=== PATIENT | male | born 1960 | race Caucasian/White ===

== ENCOUNTER 2020-05-11 14:04 | Outpatient (REF) | payer OTHER, SELFPAY ==
[2020-05-11 15:11] LABS: Immature Retic Fraction 5.1 % (2.3-13.4); Reticulocyte Percent 1.4 % (0.5-1.8); Reticulocytes Absolute 0.055 X10*6/uL (0.026-0.095)
[2020-05-11 15:22] LABS: Iron 49 mcg/dL (45-160); Percent Iron Saturation 13 % (15-50); Total Iron Binding Capacity 371 mcg/dL (228-428); Unsaturated Iron Binding 322 ug/dL
[2020-05-11 15:43] LABS: Ferritin 23 ng/mL (20-250)
[2020-05-11 15:54] LABS: Folate 13.3 ng/mL (> or = 4.0); Vitamin B12 271 pg/mL (200-900)
[2020-05-12 17:33] LABS: Haptoglobin 107 mg/dL (43-212)
[2020-05-14 14:47] LABS: IgA 257 mg/dL (47-310); IgG 1314 mg/dL (600-1640); IgM 51 mg/dL (50-300)
== END 2020-05-11 14:05 | disposition home or self-care (01) ==
LOC: HO.LAB 14:04
PROVIDERS: PCP Internal Medicine; Visit Provider Internal Medicine Medical Oncology
DX: C81.90 Hodgkin lymphoma, unspecified, unspecified site (principal)
CPT/HCPCS: 36415; 82607; 82728; 82746; 82784; 83010; 83540; 85045; 86334

== ENCOUNTER → 2020-05-13 14:25 | Outpatient (BNVA) | payer OTHER, SELFPAY | PROVIDERS: PCP Internal Medicine; Referring Provider Internal Medicine; Visit Provider Internal Medicine | DX: I42.8 Other cardiomyopathies (principal); I35.0 Nonrheumatic aortic (valve) stenosis; I44.7 Left bundle-branch block, unspecified; I95.9 Hypotension, unspecified; Z79.899 Other long term (current) drug therapy; Z95.0 Presence of cardiac pacemaker | CPT/HCPCS: 93005 ==

== ENCOUNTER → 2020-05-22 11:15 | Outpatient (REF) | payer OTHER, SELFPAY ==
--- NOTE | 2020-05-22 11:21 | CA_ITS ---
Transthoracic Echocardiogram Patient (Last, First, Middle): Enrique Monahan, Gender: Male Date of : 1960 Age: 59 Procedure Date: 05/22/2020 Procedure Type: Transthoracic Echocardiogram Location: OP Height: 180.34 cm Weight: 83.92 kg BSA: 2.04 m2 Heart Rate: bpm BP: 100 / 60 mmHg Manager Sound: PATI Benjamin MD: Hamilton Wyman MD Resource Agent: Eric Javier MD Symptoms: I35.0 - Nonrheumatic aortic (valve) stenosis Study Quality: Good ECG Rhythm: Sinus with V pacing Conclusions: - 1. Severe paradoxical low-flow aortic stenosis 2. Low normal LV systolic function with grade 2 diastolic dysfunction 3. Mildly elevated right ventricular systolic pressure 4. Mildly dilated left atrium 5. No pericardial effusion Findings Left Ventricle Normal left ventricular cavity size. There is normal left ventricular wall thickness. The left ventricular systolic function is low normal. The visually estimated ejection fraction is between 50-55%. There is paradoxical septal motion consistent with a right ventricular pacemaker. Spectral Doppler is indicative of a pseudonormal filling pattern. E/E prime ratio is >15, consistent with elevated filling pressures. Evidence suggests grade II (moderate) diastolic dysfunction. Right Ventricle Normal right ventricular cavity size. There is normal right ventricular systolic function. There is a pacemaker wire seen in the right ventricle. Atria The left atrium is mildly dilated. The right atrium is normal in size. A pacemaker wire is identified in the right atrium. Aortic Valve There is severe calcification of the aortic valve. There is severe thickening of the aortic valve with reduced excursion. There is severe aortic valve stenosis. The mean gradient is 25 mmHg. The aortic valve area is 0.90 cm2. Dimensionless index at 0.21 consistent with severe aortic stenosis, consistent with paradoxical low-flow Mitral Valve There is mild anterior and posterior mitral leaflet thickening. There is trace mitral valve regurgitation. There is no mitral valve stenosis. Pulmonic Valve The pulmonic valve was not well visualized. Tricuspid Valve Likely normal tricuspid valve structure and function. There is mild tricuspid valve regurgitation. Mild pulmonary hypertension is present. Great Vessels All visible segments of the aorta are normal in size. The pulmonary artery was not well visualized. Venous The inferior vena cava is normal in size and collapses greater than 50% with inspiration. Pericardium/Pleural There is no evidence of pericardial effusion. Prior Study Comparison No prior study available for comparison. Measurements 2D Linear Measurements RVIDd: 3.56 RVIDd Index: 1.75 IVSd: 0.68 0.6-0.9/0.6-1.0 cm LVIDd: 5.65 3.9-5.3/4.2-5.9 cm LVIDd Index: 2.77 2.4-3.2/2.2-3.1 cm/m2 LVIDs: 3.67 2.0-3.6 cm LVPWd: 0.90 0.7-1.1 cm Ao Root: 3.50 2.1-3.5 cm LA Diam: 4.80 2.7-3.8/3.0-4.0 cm LAIDs Index: 2.35 1.5-2.3 cm/m2 LV Mass: 204.17 67-162/88-224 g LV Mass Index: 100.08 43-95/49-115 g/m2 LVOT Diam: 2.30 3.0+(-)1.3 cm 2D Systolic Function EF 4C: 49.30 >55% EF 2C: 58.40 >55% EF BiP: 53.80 >55% Mitral Valve E'Lateral: 10.10 E'Medial: 6.64 Aortic Valve AoV Pk Sixto: 3.40 AoV Mn Sixto: 2.30 AoV VTI: 0.74 AoV Pk Grad: 46.00 Aov Mn Grad: 25.00 DANUTA Cont.VTI: 0.90 LVOT LVOT Pk Sixto: 0.79 LVOT Mn Sixto: 0.50 LVOT VTI: 0.16 LVOT Pk Grad: 2.00 LVOT Mn Grad: 1.00 LVOT Diam: 2.30 LVOT Area: 4.15 Diastolic Function E'Medial: 6.64 E' Laterial: 10.10 Tricuspid Valve TR Pk Sixto: 2.65 TR Pk Grad: 28.00 RA Press: 15.00 RVSP: 43.00 Great Vessels Aorta Ao Root-2D: 3.50 2.0-3.7 cm Ao Asc: 3.30 2.1-3.4 cm Updated in Other Vendor System with Status of Final Eric Javier MD electronically signed on 05/23/2020 1:47:47 PM with status of Final
== END ==
LOC: HO.CARD 11:15
PROVIDERS: PCP Internal Medicine; Visit Provider Internal Medicine
DX: I35.0 Nonrheumatic aortic (valve) stenosis (principal)
CPT/HCPCS: 93306

== ENCOUNTER → 2020-06-03 12:29 | Outpatient (BNVA) | payer OTHER, SELFPAY | PROVIDERS: PCP Internal Medicine; Referring Provider Internal Medicine; Visit Provider Internal Medicine | DX: Z76.89 Persons encountering health services in other specified circumstances (principal) ==

== ENCOUNTER 2020-06-12 12:50 | Outpatient (REF) | payer OTHER, SELFPAY ==
[2020-06-12 14:18] LABS: MANUAL DIFF FLAG NO
[2020-06-12 14:22] LABS: Basophils Absolute Auto 0.1 X10*3/uL (0.0-0.2); Basophils Percent Auto 0.9 % (0-2); Eosinophils Absolute Auto 0.2 X10*3/uL (0.0-0.4); Eosinophils Percent Auto 3.1 % (0-4); Hematocrit 33.8 % (42-52); Hemoglobin 10.8 g/dl (14.0-18.0); Imm Gran Abs Auto 0.04 X10*3/uL (0.00-0.03); Imm Gran Pct Auto 0.5 % (0.0-0.4); Lymphocytes Absolute Auto 1.1 X10*3/uL (1.2-4.9); Lymphocytes Percent Auto 13.9 % (20-40); Mean Corpuscular Volume 90.6 fL (80-98); Mean Platelet Volume 10.8 fL (9.4-12.4); Monocytes Absolute Auto 1.3 X10*3/uL (0.1-1.2); Monocytes Percent Auto 16.5 % (2-11); Neutrophils Percent Auto 65.1 % (45-73); Platelet Count 384 X10*3/uL (160-400); Red Blood Count 3.73 X10*6/uL (4.60-5.80); Red Cell Distribution Width 15.9 % (11.0-16.0); White Blood Count 7.7 X10*3/uL (4.8-10.8)
[2020-06-12 14:23] LABS: Hematocrit 33.7 % (42-52); Hemoglobin 10.8 g/dl (14.0-18.0); Mean Corpuscular Hemoglobin 28.9 pg (27.0-33.0); Mean Corpuscular Volume 90.1 fL (80-98); Mean Platelet Volume 11.1 fL (9.4-12.4); Platelet Count 390 X10*3/uL (160-400); Red Blood Count 3.74 X10*6/uL (4.60-5.80); Red Cell Distribution Width 15.9 % (11.0-16.0); White Blood Count 7.6 X10*3/uL (4.8-10.8)
[2020-06-12 14:28] LABS: INTERNATIONAL NORM RATIO 1.2 (0.9-1.1); Prothrombin Time 14.3 SEC (10.8-13.0)
[2020-06-12 14:58] LABS: Alanine Aminotransferase 12 U/L (0-40); Albumin Level 3.8 g/dL (3.5-5.0); Alkaline Phosphatase 50 U/L (39-117); Anion Gap 11 (12-20); Aspartate Amino Transferase 17 U/L (5-37); Bilirubin Total 0.5 mg/dL (0.0-1.0); Blood Urea Nitrogen 24 mg/dL (9-16); Calcium 8.5 mg/dL (8.4-10.2); Carbon Dioxide 28 mmol/L (22-29); Chloride 103 mmol/L (96-108); Estimated Glomerular Filt Rate > 60; Glucose Fasting 89 mg/dL (60-99); Lactate Dehydrogenase 173 U/L (118-273); Sodium 137 mmol/L (135-145); Total Protein 6.3 g/dL (6.5-8.0)
[2020-06-12 15:01] LABS: Anion Gap 13 (12-20); Blood Urea Nitrogen 24 mg/dL (9-16); Calcium 8.6 mg/dL (8.4-10.2); Carbon Dioxide 28 mmol/L (22-29); Chloride 103 mmol/L (96-108); Estimated Glomerular Filt Rate > 60; Glucose Random 88 mg/dL (60-115); Potassium 5.4 mmol/l (3.3-5.1); Sodium 139 mmol/L (135-145)
[2020-06-12 15:23] LABS: Thyroid Stimulating Hormone 0.38 uIU/mL (0.32-4.0)
== END 2020-06-12 12:51 | disposition home or self-care (01) ==
LOC: HO.LAB 12:50
PROVIDERS: Internal Medicine Medical Oncology; PCP Internal Medicine; Visit Provider Internal Medicine
DX: C81.90 Hodgkin lymphoma, unspecified, unspecified site (principal); I35.0 Nonrheumatic aortic (valve) stenosis
CPT/HCPCS: 36415; 80048; 80053; 83615; 84443; 85025; 85027; 85610

== ENCOUNTER 2020-06-13 09:01 | Outpatient (REF) | payer OTHER, SELFPAY ==
[2020-06-13 09:25] LABS: COVID-19 Test Negative (Negative)
== END 2020-06-13 09:02 | disposition home or self-care (01) ==
LOC: HO.EMPCOV 09:01
PROVIDERS: Visit Provider Internal Medicine
DX: Z20.828 Contact with and (suspected) exposure to other viral communicable diseases (principal)
CPT/HCPCS: 87635; C9803

== ENCOUNTER 2020-06-15 12:15 | Outpatient (REF) | payer OTHER, SELFPAY ==
[2020-06-15 13:20] LABS: Anion Gap 13 (12-20); Blood Urea Nitrogen 23 mg/dL (9-16); Calcium 8.7 mg/dL (8.4-10.2); Carbon Dioxide 28 mmol/L (22-29); Chloride 104 mmol/L (96-108); Estimated Glomerular Filt Rate > 60; Glucose Random 85 mg/dL (60-115); Potassium 4.5 mmol/l (3.3-5.1); Sodium 140 mmol/L (135-145)
== END 2020-06-15 12:16 | disposition home or self-care (01) ==
LOC: HO.LAB 12:15
PROVIDERS: PCP Internal Medicine; Visit Provider Nurse Practitioner Family
DX: E87.5 Hyperkalemia (principal)
CPT/HCPCS: 80048

== ENCOUNTER 2020-06-19 10:56 | Observation (INO) | payer OTHER, SELFPAY ==
[2020-06-19] VITALS (8 sets, daily range): BP systolic 88–112; BP diastolic 44–62; PULSE 78–85; RESP 13–19; TEMP 36.6–37.1; O2SAT 98–100; BMI 25.7
--- NOTE | 2020-06-19 | ECG_ITS ---
Test Reason : CHEST PAIN Blood Pressure : / mmHG Vent. Rate : 082 BPM Atrial Rate : 082 BPM P-R Int : 146 ms QRS Dur : 144 ms QT Int : 452 ms P-R-T Axes : 100 238 076 degrees QTc Int : 528 ms Atrial-sensed ventricular-paced rhythm Abnormal ECG When compared with ECG of 01-SEP-2006 11:08, Electronic ventricular pacemaker has replaced Sinus rhythm Referred By: Generic ED Physician Electronically Signed By:IVANNA ORDONEZ
--- NOTE | 2020-06-19 | XR_ITS ---
EXAMINATION: XR CHEST CLINICAL INFORMATION: Post right thoracentesis COMPARISON: Previous chest x-ray from earlier the same day and chest CTA from earlier the same day TECHNIQUE: Frontal view of the chest was obtained. FINDINGS: The cardiac and mediastinal contours are stable. Left subclavian pacemaker defibrillator device appears unchanged. There is interval decrease in the right pleural effusion. There is no pneumothorax. There is no left pleural effusion. The lungs are clear. Visualized bony structures are unremarkable. XR/XR chest 1V IMPRESSION: No pneumothorax post right thoracentesis.
--- NOTE | 2020-06-19 11:21 | PC.NURSE ---
pt bp noted to be low. 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 had meds adjusted about 1 week ago. pt does report dizziness.
[2020-06-19 11:22] LABS: MANUAL DIFF FLAG NO
[2020-06-19 11:23] LABS: Basophils Absolute Auto 0.1 X10*3/uL (0.0-0.2); Basophils Percent Auto 0.9 % (0-2); Eosinophils Absolute Auto 0.2 X10*3/uL (0.0-0.4); Eosinophils Percent Auto 2.2 % (0-4); Hematocrit 31.6 % (42-52); Hemoglobin 10.3 g/dl (14.0-18.0); Imm Gran Abs Auto 0.03 X10*3/uL (0.00-0.03); Imm Gran Pct Auto 0.3 % (0.0-0.4); Lymphocytes Percent Auto 10.5 % (20-40); Mean Corpuscular HGB Conc 32.6 g/dl (31.0-36.0); Mean Corpuscular Hemoglobin 28.8 pg (27.0-33.0); Mean Corpuscular Volume 88.3 fL (80-98); Mean Platelet Volume 10.7 fL (9.4-12.4); Monocytes Absolute Auto 1.3 X10*3/uL (0.1-1.2); Monocytes Percent Auto 13.4 % (2-11); Neutrophils Percent Auto 72.7 % (45-73); Platelet Count 280 X10*3/uL (160-400); Red Blood Count 3.58 X10*6/uL (4.60-5.80); Red Cell Distribution Width 15.7 % (11.0-16.0); White Blood Count 9.7 X10*3/uL (4.8-10.8)
--- NOTE | 2020-06-19 11:33 | XR_ITS ---
EXAMINATION: XR CHEST CLINICAL INFORMATION: Right-sided chest pain COMPARISON: Previous chest x-ray April 2020 TECHNIQUE: 2 views of the chest were obtained. FINDINGS: The cardiac and mediastinal contours are stable. There is a left subclavian pacemaker defibrillator device that appears unchanged. There are left mediastinal or upper lobe calcifications that are unchanged. The lungs are otherwise clear. There is a small to moderate right pleural effusion. This appears similar to previous exam. Bony structures are unremarkable. There is a calcification in the visualized abdomen overlying the right L1 vertebral body that is stable. There are surgical clips under the left hemidiaphragm. XR/XR chest 2V IMPRESSION: [id number] right pleural effusion similar to previous exam. Stable left mediastinal/upper lobe and abdominal calcifications from previous exams.
--- NOTE | 2020-06-19 11:33 | ED.CHESTPAIN ---
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 Patient denies headaches, changes in vision, jaw pain, nausea/vomiting, radiation of the chest pain, shoulder pain, paresthesias, back pain, abdominal pain, calf pain or swelling of extremities or any other symptoms complaints or concerns at this time. Related Data Home Medications Medication Instructions Recorded Confirmed aspirin 81 mg tablet,delayed 81 mg PO DAILY 06/03/20 06/19/20 release eplerenone 25 mg tablet 25 mg PO DAILY 06/03/20 06/19/20 furosemide 20 mg tablet 20 mg PO BIDWM tab 06/03/20 06/19/20 levothyroxine 175 mcg tablet 175 mcg PO DAILY@0630 06/03/20 06/19/20 lisinopril 2.5 mg tablet 2.5 mg PO DAILY 06/03/20 06/19/20 Previous Rx's Medication Instructions Recorded carvedilol 12.5 mg tablet 12.5 mg PO BID #1 tab 06/03/20 Allergies Allergy/AdvReac Type Severity Reaction Status Date / Time No Known Allergies Allergy Verified 06/03/20 12:36 [No Known Allergies*] Review of Systems Review of Systems: Constitutional : No Fever, No Chills, No Night Sweats, No Fatigue, No Malaise ENT/Mouth : No Hearing loss, No Ear Pain, No Nasal Congestion, No Sinus Pain, No Hoarseness, No sore throat, No Rhinorrhea, No Swallowing Difficulty Eyes: No Eye Pain, No Swelling, No Discharge, No Vision Changes Cardiovascular : + SOB, no Dyspnea on Exertion, No Orthopnea, No Edema, No extremity swelling, No Palpitations Respiratory : No Cough, No Sputum, No Wheezing, No Dyspnea Gastrointestinal : No Nausea, No Vomiting, No Diarrhea, No abdominal Pain, No Hematochezia, No Melena Genitourinary : No irregular bleeding, No Dysuria, No Urinary Frequency, No Hematuria, No Urinary Incontinence, No Urgency, No Flank Pain, No Urinary Flow Changes, No Hesitancy Musculoskeletal : No joint pain, No Myalgias, No Joint Swelling Skin : No Skin Lesions, No rash Neuro : No Weakness, No Numbness, No Paresthesias, No Loss of Consciousness, + Dizziness, No Headache Yes all other systems are reviewed and are negative [facility] Past Medical History Attestation statement: The following information was validated with the patient. Medical History LBBB (left bundle branch block) NICM (nonischemic cardiomyopathy) Non-rheumatic aortic stenosis Pacemaker Surgical History History of cardiac pacemaker Family History Family History Father No problems noted. Mother No problems noted. Social History Social History Smoking Status: Never smoker Smoked in Last 30 Days: No Use of substances other than those prescribed or required for medical reasons: No Advance Directives: No Advance Directives Information Provided: No Physical Exam Vital Signs: Vital Signs: Last Vital Signs Temp 98.2 F 06/19/20 12:30 Pulse 82 06/19/20 14:22 Resp 18 06/19/20 14:22 BP 108/62 06/19/20 14:22 Pulse Ox 98 06/19/20 14:22 Body Mass Index 25.7 vital signs have been reviewed as normal and appeared to be correct. Blood pressure normal. Heart rate normal. Respiration rate normal. Temperature normal. Oxygen saturation normal. Appearance: Alert. Oriented X3. No acute distress. Head: Normal external exam. Normocephalic. Eyes: PERRLA. EOMI. Conjunctiva and sclera normal. Eyelids normal. ENT: Pharynx normal. Uvula midline. Moist mucous membranes. Neck: Normal inspection. Neck supple. FROM. No adenopathy. No meningeal signs. CVS: Normal heart rate and rhythm. Heart sound normal. Patient noted to have a murmur sounds like a heave c/w aortic stenosis. Pulses normal throughout. Respiratory: No respiratory distress. Painless inspiration. Breath sounds normal. No wheezes/rales/rhonchi noted. Chest nontender. No accessory muscle usage noted or decreased air movement noted. Abdomen: Soft and nontender. Bowel sounds normal in all 4 quadrants. No distention noted. No organomegaly noted. No visible injury noted. Back: Full range of motion noted. Skin: Skin warm and dry. Normal skin color. Normal skin turgor. No rashes/lesions/lacerations noted. Extremities: +1 pitting lower extremity edema. No calf tenderness. Extremities exhibit normal range of motion. Extremities nontender. Neuro: Oriented X 3. No motor deficit. No sensory deficit. Reflexes normal. Course Course Course Narrative: 11:20AM - 59yoM c PMHx of Hodgkin's lymphoma, nonischemic cardiomyopathy, left bundle-branch block, nonrheumatic aortic stenosis with pace-maker in place currently on aspirin who had a cardiac cath yesterday at [facility] presenting to the ED with complaints of sudden onset of left sided chest pain with associated dizziness and SOB that started appointment specialist at 9:30am. - I consulted with Dr. Wyman who reported that the patient's blood pressure is always on the lower side. Dr. Wyman also sent me a picture through [employer] of the patient's cardiac catheterization done at [facility] yesterday 06/18/2020 which revealed Lesion in LMCA: Distal subsection 30% stenosis 10 mm length. Preprocedure GRETCHEN 2 flow was noted. RCA: Normal. We noticed spasm after engagement. We took non selective shots which did not show any obvious ostial stenosis. LAD: Normal LCx: Normal Ramus: Normal - Concern for ACS vs PE vs s/p pain from procedure. - Plan: Labs, CXR, EKG. Provide IV fluids and re-evaluate Reevaluation(s) Reevaluation #1: - Patient with anemia, BUN 20. Troponin 13.7. Otherwise all other labs are within normal limits. COVID/RSV/flu negative. EKG is atrial ventricular paced no acute ischemic changes noted. Chest x-ray revealed chronic changes no acute processes noted. Will repeat a troponin at 14:[address] scan of chest to evaluate for possible PE or any other acute processes then re-evaluate. Time: 13:08 Reevaluation #2: - Repeat troponin 13.[address] scan of chest to evaluate for possible PE negative for PE although revealed large right pleural effusion. Patient just got up to go to the bathroom and was very short of breath and felt dizzy. Therefore patient will be admitted and will need Interventional Radiology for a thoracentesis. Patient stands agrees with this plan. Time: 15:58 MDM - Chest Pain Medical Records Data Attestation: I reviewed the patient's medical records. Lab Data Attestation: I reviewed the patient's lab results. Result diagrams: 06/19/20 11:11 06/19/20 11:11 Labs: Lab Results 06/19/20 06/19/20 06/19/20 Range/Units 11:11 11:11 11:11 WBC 9.7 (4.8-10.8) X10*3/uL RBC 3.58 L (4.60-5.80) X10*6/uL Hgb 10.3 L (14.0-18.0) g/dl Hct 31.6 L (42-52) % MCV 88.3 (80-98) fL MCH 28.8 (27.0-33.0) pg MCHC 32.6 (31.0-36.0) g/dl RDW 15.7 (11.0-16.0) % Plt Count 280 D (160-400) X10*3/uL MPV 10.7 (9.4-12.4) fL Immature Gran % (Auto) 0.3 (0.0-0.4) % Neut % (Auto) 72.7 (45-73) % Lymph % (Auto) 10.5 L (20-40) % [place] % (Auto) 13.4 H (2-11) % Eos % (Auto) 2.2 (0-4) % Baso % (Auto) 0.9 (0-2) % Lymph # (Auto) 1.0 L (1.2-4.9) X10*3/uL [place] # (Auto) 1.3 H (0.1-1.2) X10*3/uL Eos # (Auto) 0.2 (0.0-0.4) X10*3/uL Baso # (Auto) 0.1 (0.0-0.2) X10*3/uL Abs Immat Gran (auto) 0.03 (0.00-0.03) X10*3/uL Absolute Neuts (auto) 7.0 (2.0-8.3) X10*3/uL Absolute Nucleated RBC 0.000 (0.0-0.012) X10*3/uL Nucleated RBC % (auto) 0.0 (0.0-0.2) /100WBC PT 14.0 H (10.8-13.0) SEC INR 1.2 H (0.9-1.1) APTT 51.0 H (24.1-38.0) SEC Hold Blue Top SEE NOTE Sodium 138 (135-145) mmol/L Potassium 4.5 (3.3-5.1) mmol/l Chloride 102 (96-108) mmol/L Carbon Dioxide 27 (22-29) mmol/L Anion Gap 14 (12-20) BUN 20 H (9-16) mg/dL Creatinine 0.90 (0.5-1.4) mg/dL Estim Creat Clear Calc 96.4 Estimated GFR > 60 Random Glucose 85 (60-115) mg/dL Calcium 8.7 (8.4-10.2) mg/dL Troponin I High Sens (<3.5-35.0) ng/L B-Natriuretic Peptide (<100) pg/mL Coronavirus (PCR) (Negative) Influenza Type A (PCR) (Negative) Influenza Type B (PCR) (Negative) RSV RNA Qual (PCR) (Negative) 06/19/20 06/19/20 06/19/20 Range/Units 11:11 12:07 14:19 WBC (4.8-10.8) X10*3/uL RBC (4.60-5.80) X10*6/uL Hgb (14.0-18.0) g/dl Hct (42-52) % MCV (80-98) fL MCH (27.0-33.0) pg MCHC (31.0-36.0) g/dl RDW (11.0-16.0) % Plt Count (160-400) X10*3/uL MPV (9.4-12.4) fL Immature Gran % (Auto) (0.0-0.4) % Neut % (Auto) (45-73) % Lymph % (Auto) (20-40) % [place] % (Auto) (2-11) % Eos % (Auto) (0-4) % Baso % (Auto) (0-2) % Lymph # (Auto) (1.2-4.9) X10*3/uL [place] # (Auto) (0.1-1.2) X10*3/uL Eos # (Auto) (0.0-0.4) X10*3/uL Baso # (Auto) (0.0-0.2) X10*3/uL Abs Immat Gran (auto) (0.00-0.03) X10*3/uL Absolute Neuts (auto) (2.0-8.3) X10*3/uL Absolute Nucleated RBC (0.0-0.012) X10*3/uL Nucleated RBC % (auto) (0.0-0.2) /100WBC PT (10.8-13.0) SEC INR (0.9-1.1) APTT (24.1-38.0) SEC Hold Blue Top Sodium (135-145) mmol/L Potassium (3.3-5.1) mmol/l Chloride (96-108) mmol/L Carbon Dioxide (22-29) mmol/L Anion Gap (12-20) BUN (9-16) mg/dL Creatinine (0.5-1.4) mg/dL Estim Creat Clear Calc Estimated GFR Random Glucose (60-115) mg/dL Calcium (8.4-10.2) mg/dL Troponin I High Sens 13.7 13.0 (<3.5-35.0) ng/L B-Natriuretic Peptide 108 H (<100) pg/mL Coronavirus (PCR) NEGATIVE (Negative) Influenza Type A (PCR) NEGATIVE (Negative) Influenza Type B (PCR) NEGATIVE (Negative) RSV RNA Qual (PCR) NEGATIVE (Negative) Imaging Data Chest x-ray: Attestation: I personally reviewed and interpreted this imaging study as follows: Radiologist's impression: IMPRESSION: [id number] right pleural effusion similar to previous exam. Stable left mediastinal/upper lobe and abdominal calcifications from previous exams. ECG Data ECG #1: Attestation: I personally reviewed and interpreted this ECG as follows: ECG interpretation date: 06/19/20 ECG interpretation time: 11:04 Interpretation: Atrial sensed ventricular paced rhythm no acute ischemic changes noted. With a rate of 82. Last EKG in system is 09/01/2016 and patient did not have a pacemaker than. No other EKGs to compare to at this time. Critical Care Time Critical Care Time Critical Care Time: Yes Total Critical Care Time: 60 Attestation: I personally attest to this time spent taking care of the patient Discharge Plan Discharge Clinical Impression: Chest pain, Breath shortness, Pleural effusion Patient Disposition: Admitted As Inpatient Prescriptions: No Action aspirin 81 mg tablet,delayed release (DR/EC) 81 mg PO DAILY RF: 0 eplerenone 25 mg tablet 25 mg PO DAILY RF: 0 furosemide 20 mg tablet 20 mg PO BIDWM RF: 0 levothyroxine 175 mcg tablet 175 mcg PO DAILY@0630 RF: 0 lisinopril 2.5 mg tablet 2.5 mg PO DAILY RF: 0 carvedilol 12.5 mg tablet 12.5 mg PO BID Qty: 1 RF: 0
[2020-06-19 11:44] LABS: INTERNATIONAL NORM RATIO 1.2 (0.9-1.1)
[2020-06-19 11:52] LABS: Troponin-I High Sensitivity 13.7 ng/L (<3.5-35.0)
[2020-06-19 12:09] LABS: Anion Gap 14 (12-20); Blood Urea Nitrogen 20 mg/dL (9-16); Calcium 8.7 mg/dL (8.4-10.2); Carbon Dioxide 27 mmol/L (22-29); Chloride 102 mmol/L (96-108); Creatinine Clr Calc Pharmacy 96.4; Estimated Glomerular Filt Rate > 60; Glucose Random 85 mg/dL (60-115); Potassium 4.5 mmol/l (3.3-5.1); Sodium 138 mmol/L (135-145)
--- NOTE | 2020-06-19 12:45 | CT_ITS ---
EXAMINATION: CT ANGIOGRAM OF THE CHEST WITH AND WITHOUT CONTRAST (CT PULMONARY ANGIOGRAM FOR PE) CLINICAL INFORMATION: Reason for Exam pt c sudden onset of cp/sob/dizziness ? pe COMPARISON: Previous chest x-ray from earlier the same day TECHNIQUE: Prior to contrast administration, noncontrast localization images were obtained. Subsequently, multidetector volumetric imaging was performed from the thoracic inlet to below the diaphragms following the administration of 65 mL Omnipaque 350 intravenous contrast. No contrast reaction reported Sagittal, coronal, and MIP oblique sagittal reformatted images were obtained on the CT workstation, uploaded to PACS, and reviewed. This CT examination was performed using dose optimization techniques as appropriate, variously including the following: *Automated exposure control *Adjustment of mA and/or kV according to patient size (this includes techniques or standardized protocols for targeted exams where dose is matched to indication/reason for exam; i.e. extremities or head) *Use of iterative reconstruction technique Total exam dose-length product 311 mGy-cm FINDINGS: QUALITY OF STUDY/CONTRAST BOLUS: Satisfactory. PULMONARY ARTERIES: No central or segmental pulmonary emboli. THORACIC AORTA: No aneurysm or dissection. LUNG: No focal consolidation, nodules or masses. There is compressive atelectasis of the right lower lobe from the right pleural effusion. PLEURA: There is a moderate to large right pleural effusion. There is no left pleural effusion. MEDIASTINUM: The heart size is normal. There is a left subclavian pacemaker defibrillator device. There is mild pericardial calcification. There is no pericardial effusion. No evidence of septal bowing or right heart strain. CHEST WALL/AXILLA: No axillary or internal mammary lymphadenopathy. There are collateral vessels seen in the left chest wall. OSSEOUS STRUCTURES: There are degenerative changes of the spine. UPPER ABDOMEN: The spleen has been removed. No reflux of contrast into the hepatic veins to suggest elevated right heart pressures. CT/CT angio chest PE protocol IMPRESSION: No evidence of pulmonary embolism. Moderate to large right pleural effusion. VTE: negative
[2020-06-19 12:57] LABS: Influenza A PCR NEGATIVE (Negative); Influenza B PCR NEGATIVE (Negative); Resp Syncy Virus RNA Qual PCR NEGATIVE (Negative); SARS COV2 PCR INHOUSE NEGATIVE (Negative)
[2020-06-19] MEDS: iohexoL 350 MG/ML 100 ML INFUS..BTL 65 ML IV (13:36)
[2020-06-19 13:37] LABS: B Type Natriuretic Peptide 108 pg/mL (<100)
--- NOTE | 2020-06-19 14:18 | PC.NURSE ---
Helped pt ambulate to bathroom. Pt felt extremely out of breath. RN aware.
--- NOTE | 2020-06-19 16:15 | US_ITS ---
EXAMINATION: ULTRASOUND-GUIDED THORACENTESIS CLINICAL INFORMATION: Right pleural effusion COMPARISON: Previous chest x-rays chest CTA from earlier the same day TECHNIQUE: Procedure and risks and benefits including bleeding, infection and pneumothorax were discussed with the patient and informed consent was obtained. The right posterior lateral chest was prepped and draped in the usual sterile fashion. The skin and soft tissues were anesthetized with 1% lidocaine plain. Using ultrasound guidance and a 4 [place] rapid centesis catheter, access to the right pleural effusion was obtained. 1.1 L of serosanguineous fluid was removed. Diagnostic specimen was sent. FINDINGS: There is a large right pleural effusion. US/US drain thoracentesis IMPRESSION: Ultrasound-guided right thoracentesis.
--- NOTE | 2020-06-19 17:08 | HO.RADPN ---
RADIOLOGY Narrative Narrative: Right thoracentesis performed using 4 fr catheter. 1.1L serosanguinous fluid removed. post CXR pending
[2020-06-19] MEDS: Lidocaine HCl 1 % MPF 5 ML VIAL SUBCUT (17:14)
--- NOTE | 2020-06-19 18:02 | PM.EVENT ---
Event Note Date of Service: 06/19/20 Event Note: the patient was seen and evaluated with IRIS Abel. I agree with her note, assessment and plan with the following. A 59 yeasrs old male with pmh of HFrEF, Hx H.Lymphoma, NICM and who presents to the hospital complaining of chest pain and dyspnea on exertion. The patient had an angiogram 2 days ago showing no significant coronary disease which seem as a part of preparation for TAVR. He reports that he has some chest pain on and of but today he had an acute left-sided stabbing like chest pain associated with shortness of breath and sweating which was read concerning for him so he came to the emergency for evaluation. EKG showing paced rhythm. Troponin negative. A CTA was done showing no PE but right-sided pleural effusion which was drained by IR with good response as the patient failed his breathing much improved. Admitted for further evaluation and treatment. Chest pain Could be secondary to severe aortic stenosis next [place] continue telemetry Get cardiology evaluation the morning Right-sided pleural effusion To check studies for fluid Likely transudate from heart failure Rest of evaluations by IRIS note.
--- NOTE | 2020-06-19 18:27 | PM.IMHP ---
History of Present Illness Date of Service: 06/19/20 Chief Complaint: chest pain A 59-year-old male who presents to the emergency department with chest pain. Patient underwent cardiac catheterization at [facility] on 06/16/2020. This revealed no obstructive coronary artery disease. Today while at work he developed left-sided stabbing chest pain with associated shortness of breath diaphoresis. He was brought to the emergency department for evaluation. EKG revealed a paced rhythm. Troponin was flat x2. Chest x-ray showed small pleural effusion. Underwent CTA which showed no evidence PE but showed large right pleural effusion. He underwent therapeutic and diagnostic thoracentesis with removal of 1.1 L of serosanguineous fluid was removed. Patient reports improvement in his symptoms following the procedure. Initially patient was hypotensive on arrival but blood pressure has subsequently improved to 1 0 . He does report that his blood pressure typically runs on the low side. He will be admitted overnight for observation. Review of Systems Review of Systems: Yes all other systems are reviewed and are negative Constitutional: Constitutional: Denies chills and Denies fever(s) Cardiovascular: Cardiovascular: Reports chest pain Respiratory: Respiratory: Denies cough Gastrointestinal: Gastrointestinal: Denies abdominal pain [facility] Medical History (Updated 06/19/20 @ 18:34 by IRIS Rutherford) Complete heart block HFrEF (heart failure with reduced ejection fraction) Hodgkins lymphoma Hypothyroid LBBB (left bundle branch block) NICM (nonischemic cardiomyopathy) Non-rheumatic aortic stenosis Pacemaker Functional capacity: independent ambulation Family History Father No problems noted. Mother No problems noted. Surgical History (Updated 06/19/20 @ 18:34 by IRIS Rutherford) H/O splenectomy History of appendectomy History of cardiac pacemaker Social History (Updated 06/19/20 @ 18:35 by IRIS Rutherford) Alcohol intake: current Alcohol intake frequency: a few times a month Smoking Status: Never smoker Smoked in Last 30 Days: No Use of substances other than those prescribed or required for medical reasons: No Advance Directives: No Advance Directives Information Provided: No Meds Allergies Allergy/AdvReac Type Severity Reaction Status Date / Time No Known Allergies Allergy Verified 06/03/20 12:36 [No Known Allergies*] Home Medications Medication Instructions Recorded Confirmed Type aspirin 81 mg tablet,delayed 81 mg PO DAILY 06/03/20 06/19/20 History release eplerenone 25 mg tablet 25 mg PO DAILY 06/03/20 06/19/20 History furosemide 20 mg tablet 20 mg PO BIDWM tab 06/03/20 06/19/20 History levothyroxine 175 mcg tablet 175 mcg PO DAILY@0630 06/03/20 06/19/20 History lisinopril 2.5 mg tablet 2.5 mg PO DAILY 06/03/20 06/19/20 History Physical Exam Vital Signs and Narrative: Vital Signs: Last Vital Signs Temp 98.3 F 06/19/20 18:00 Pulse 78 06/19/20 18:00 Resp 15 06/19/20 18:00 BP 106/52 L 06/19/20 18:00 Pulse Ox 100 06/19/20 18:00 Body Mass Index 25.7 Const: Nutritional Appearance: well nourished Orientation/consciousness: patient oriented x3 HENMT: Head: Yes normocephalic and Yes atraumatic Eyes: Sclerae: sclerae normal Chest: Chest palpation & inspection: normal inspection of the chest Resp: Effort & Inspection: normal respiratory effort and no respiratory distress Auscultation: diminished lung sounds (right base) Cardio: Rate: regular rate Rhythm: regular rhythm Heart sounds: Murmur heart sound present systolic GI: Palpation (GI): Soft to palpation and nontender Skin: General skin exam: no rashes or lesions noted Neuro: General: patient oriented x3 Cranial nerves: Yes CN's II-XII intact bilaterally and Yes Bilaterally intact EOM present Extrem: General: Yes normal to inspection Results Labs CBC and Chem 7: 06/19/20 11:11 06/19/20 11:11 Labs: Laboratory Results - last 24 hr 06/19/20 06/19/20 06/19/20 11:11 11:11 11:11 MCV 88.3 MCH 28.8 MCHC 32.6 RDW 15.7 Plt Count 280 D MPV 10.7 Immature Gran % (Auto) 0.3 Neut % (Auto) 72.7 Lymph % (Auto) 10.5 L [place] % (Auto) 13.4 H Eos % (Auto) 2.2 Baso % (Auto) 0.9 Lymph # (Auto) 1.0 L [place] # (Auto) 1.3 H Eos # (Auto) 0.2 Baso # (Auto) 0.1 Abs Immat Gran (auto) 0.03 Absolute Neuts (auto) 7.0 Absolute Nucleated RBC 0.000 Nucleated RBC % (auto) 0.0 PT 14.0 H INR 1.2 H APTT 51.0 H Hold Blue Top SEE NOTE Anion Gap 14 Estim Creat Clear Calc 96.4 Estimated GFR > 60 Random Glucose 85 Calcium 8.7 Troponin I High Sens B-Natriuretic Peptide Coronavirus (PCR) Influenza Type A (PCR) Influenza Type B (PCR) RSV RNA Qual (PCR) 06/19/20 06/19/20 06/19/20 11:11 12:07 14:19 MCV MCH MCHC RDW Plt Count MPV Immature Gran % (Auto) Neut % (Auto) Lymph % (Auto) [place] % (Auto) Eos % (Auto) Baso % (Auto) Lymph # (Auto) [place] # (Auto) Eos # (Auto) Baso # (Auto) Abs Immat Gran (auto) Absolute Neuts (auto) Absolute Nucleated RBC Nucleated RBC % (auto) PT INR APTT Hold Blue Top Anion Gap Estim Creat Clear Calc Estimated GFR Random Glucose Calcium Troponin I High Sens 13.7 13.0 B-Natriuretic Peptide 108 H Coronavirus (PCR) NEGATIVE Influenza Type A (PCR) NEGATIVE Influenza Type B (PCR) NEGATIVE RSV RNA Qual (PCR) NEGATIVE Imaging Radiologist's Impressions: Impressions Chest X-Ray 06/19/20 00:00 IMPRESSION: No pneumothorax post right thoracentesis. Chest X-Ray 06/19/20 11:33 IMPRESSION: [id number] right pleural effusion similar to previous exam. Stable left mediastinal/upper lobe and abdominal calcifications from previous exams. Chest CTA 06/19/20 12:45 IMPRESSION: No evidence of pulmonary embolism. Moderate to large right pleural effusion. VTE: negative Thoracentesis/Paracentesis US 06/19/20 16:15 IMPRESSION: Ultrasound-guided right thoracentesis. Assessment and Plan (1) Pleural effusion: Status: Acute (2) Chest pain: Qualifiers: Chest pain type: unspecified Qualified Code(s): R07.9 - Chest pain, unspecified Status: Acute This is a 59 year old male with history chemotherapy-induced cardiomyopathy, moderate to severe aortic stenosis, complete heart block status post pacemaker placement who presents to the emergency department with chest pain found to have pleural effusion Chest pain Cardiac catheterization at [facility] 06/16/2020 shows no obstructive coronary artery disease trops flat x 2 monitor overnight on tele cardiology consult pleural effusion s/p thoracentesis wtih removal of 1.1L follow up fluid studies Nonischemic cardiomyopathy Continue carvedilol, furosemide, lisinopril, aspirin Eplerenone is non-formulary, will change to formulary equivalent Hypothyroidism Continue Synthroid DVT prophylaxis-Lovenox Code status-full code This case was discussed with Dr. Barr
[2020-06-19 19:23] LABS: Lactate Dehydrogenase 253 U/L (118-273)
[2020-06-19] MEDS: Enoxaparin Sodium 40 MG/0.4 ML SYRINGE SUBCUT (19:25)
[2020-06-19] MEDS: carvediloL 12.5 MG TABLET PO (21:42)
[2020-06-19] MEDS: 0.9 % Sodium Chloride Flush 3 ML SYRINGE IVFLUSH (21:43)
[2020-06-19] MEDS: Acetaminophen 325 MG TABLET 650 MG PO (22:10)
[2020-06-20] VITALS: BP 95/50; PULSE 84; RESP 18; TEMP 37.1; O2SAT 97
[2020-06-20 04:00] VITALS: BP 93/44; PULSE 84; RESP 18; TEMP 36.6; O2SAT 98
[2020-06-20] MEDS: Levothyroxine Sodium 175 MCG TABLET PO (06:02)
[2020-06-20 06:35] LABS: MANUAL DIFF FLAG NO
[2020-06-20 06:53] LABS: Basophils Absolute Auto 0.1 X10*3/uL (0.0-0.2); Eosinophils Absolute Auto 0.3 X10*3/uL (0.0-0.4); Eosinophils Percent Auto 2.7 % (0-4); Hematocrit 29.8 % (42-52); Hemoglobin 9.6 g/dl (14.0-18.0); Imm Gran Abs Auto 0.03 X10*3/uL (0.00-0.03); Imm Gran Pct Auto 0.3 % (0.0-0.4); Lymphocytes Absolute Auto 0.8 X10*3/uL (1.2-4.9); Lymphocytes Percent Auto 8.8 % (20-40); Mean Corpuscular HGB Conc 32.2 g/dl (31.0-36.0); Mean Corpuscular Hemoglobin 28.5 pg (27.0-33.0); Mean Corpuscular Volume 88.4 fL (80-98); Mean Platelet Volume 11.5 fL (9.4-12.4); Monocytes Absolute Auto 1.4 X10*3/uL (0.1-1.2); Monocytes Percent Auto 14.7 % (2-11); Neutrophils Absolute Auto 6.8 X10*3/uL (2.0-8.3); Neutrophils Percent Auto 72.5 % (45-73); Platelet Count 224 X10*3/uL (160-400); Red Blood Count 3.37 X10*6/uL (4.60-5.80); Red Cell Distribution Width 15.9 % (11.0-16.0); White Blood Count 9.3 X10*3/uL (4.8-10.8)
[2020-06-20 07:18] LABS: Anion Gap 13 (12-20); Blood Urea Nitrogen 16 mg/dL (9-16); Calcium 8.1 mg/dL (8.4-10.2); Carbon Dioxide 25 mmol/L (22-29); Chloride 105 mmol/L (96-108); Creatinine Clr Calc Pharmacy 120.5; Estimated Glomerular Filt Rate > 60; Glucose Random 85 mg/dL (60-115); Potassium 4.6 mmol/l (3.3-5.1); Sodium 138 mmol/L (135-145)
[2020-06-20 07:21] LABS: Glucose Peritoneal Fluid 109; LDH Peritoneal Fluid 99; Total Protein Peritoneal Fluid 4.1
[2020-06-20 08:00] VITALS: BP 93/52; PULSE 78; RESP 18; TEMP 36.4; O2SAT 99
--- NOTE | 2020-06-20 08:50 | MHC.CM.PN ---
CM spoke with Patient over the phone (Carmella lee). Patient lives in a house with his and 2 teenage children and he is functionally independent. 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 Goal for dc is to return home and CM has initiated and will follow for dc planning. PCP is Dr. Yesica Kay.
[2020-06-20] MEDS: 0.9 % Sodium Chloride Flush 3 ML SYRINGE IVFLUSH (09:37)
[2020-06-20] MEDS: Aspirin Enteric Coated 81 MG TABLET.DR PO (09:37)
--- NOTE | 2020-06-20 10:43 | P.CONCA_ITS ---
History of Present Illness History of Present Illness Date of Service: 06/20/20 Chief complaint: Chest pain, Pleural Effusion Narrative: This is a cardiology consultation regarding shortness of breath and chest pain. Patient is known to us from the office. He recently underwent cardiac catheterization for further workup of aortic stenosis and this did not show any obstructive disease. 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 He was also having shortness of breath. Then he was brought to the ER. Troponins have been unremarkable but x- ray showed pleural effusion. According to H and P, then CTA had shown a large right pleural effusion for which she underwent diagnostic and therapeutic thoracentesis and 1.1 L of serosanguineous fluid was removed. Then he felt better. Otherwise, he was admitted for overnight observation. Today states that he feels better. Still weak. To recall, he was a patient at the heart failure service in [facility]. 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 He has a history of Hodgkin's lymphoma the age of 29, requiring external beam radiation to the chest. Then he had recurrence of Hodgkin's in the right inguinal area which required chemotherapy with ABVD 6 years later. Then over time it seems that he underwent cardiac testing that laura wed nonischemic cardiomyopathy with an ejection as low as 25% and also with left bundle-branch block. Few years ago, he developed a syncopal episode while working at [facility] as clinical pharmacy coordinator. Then he was diagnosed to have complete heart block and underwent a biventricular pacemaker. Review of Systems Review of Systems: Yes all other systems are reviewed and are negative Cardiovascular: Cardiovascular: Reports as per HPI, Reports no additional cardiovascular complaints, Denies Abdominal Cramping after Meds, Denies Abdominal Distension, Denies acrocyanosis, Denies cool extremities, Denies painful fingertips, Reports chest pain, Reports chest pain at rest, Denies Epigastric Pain, Denies epigastric discomfort, Denies diaphoresis, Denies syncope, Denies pedal edema, Denies edema, Denies irregular heart rhythm, Denies leg edema, Reports lightheadedness, Denies Loss of Consciousness, Denies radiating jaw, neck or arm pain, Denies palpitations, Reports dyspnea, Reports dyspnea on exertion and Denies paroxysmal nocturnal dyspnea Respiratory: Respiratory: Reports dyspnea and Reports dyspnea on exertion Neurologic: Denies syncope Endocrine: Endocrine: Denies palpitations [facility] Past Medical History Medical History Complete heart block HFrEF (heart failure with reduced ejection fraction) Hodgkins lymphoma Hypothyroid LBBB (left bundle branch block) NICM (nonischemic cardiomyopathy) Non-rheumatic aortic stenosis Pacemaker Functional capacity: independent ambulation Family History Family History Father No problems noted. Mother No problems noted. Surgical History Surgical History H/O splenectomy History of appendectomy History of cardiac pacemaker Social History Social History Alcohol intake: current Alcohol intake frequency: a few times a month Smoking Status: Never smoker Smoked in Last 30 Days: No Use of substances other than those prescribed or required for medical reasons: No Advance Directives: No Advance Directives Information Provided: No service: Yes Current occupational status: employed Meds Allergies Allergy/AdvReac Type Severity Reaction Status Date / Time No Known Allergies Allergy Verified 06/03/20 12:36 [No Known Allergies*] Home Medications Medication Instructions Recorded Confirmed Type aspirin 81 mg tablet,delayed 81 mg PO DAILY 06/03/20 06/19/20 History release eplerenone 25 mg tablet 25 mg PO DAILY 06/03/20 06/19/20 History furosemide 20 mg tablet 20 mg PO BIDWM tab 06/03/20 06/19/20 History levothyroxine 175 mcg tablet 175 mcg PO DAILY@0630 06/03/20 06/19/20 History lisinopril 2.5 mg tablet 2.5 mg PO DAILY 06/03/20 06/19/20 History Physical Exam Vital Signs: Vital Signs: Last Vital Signs Temp 97.6 F 06/20/20 08:00 Pulse 78 06/20/20 08:00 Resp 18 06/20/20 08:00 BP 93/52 L 06/20/20 08:00 Pulse Ox 99 06/20/20 08:00 Body Mass Index 25.7 Const: General: cooperative, comfortable and no acute distress Orientation/consciousness: patient oriented x3 HENMT: Other: Unremarkable Neck: Neck: Yes normal visual inspection Chest: Chest palpation & inspection: normal inspection of the chest Resp: Auscultation: no crackles, no wheezes and diminished lung sounds on the right Cardio: Jugular venous distension: no JVD Palpation: normal PMI Heart sounds: S1 normal heart sound present, S2 abnormal (soft S2), no gallops, Murmur heart sound present systolic III/ and at the right sternal border and no rubs GI: Palpation (GI): Soft to palpation Back/Spine/Pelvis: Other: unremarkable Skin: General skin exam: no rashes or lesions noted Neuro: General: patient oriented x3 Extrem: General: Yes no clubbing, cyanosis or edema Psych: Mental Status: mental status grossly normal Results Labs and Meds Result diagrams: 06/20/20 05:53 06/20/20 05:53 Lab results: Laboratory Results - last 24 hr 06/19/20 06/19/20 06/19/20 11:11 11:11 11:11 WBC 9.7 RBC 3.58 L Hgb 10.3 L Hct 31.6 L MCV 88.3 MCH 28.8 MCHC 32.6 RDW 15.7 Plt Count 280 D MPV 10.7 Immature Gran % (Auto) 0.3 Neut % (Auto) 72.7 Lymph % (Auto) 10.5 L [place] % (Auto) 13.4 H Eos % (Auto) 2.2 Baso % (Auto) 0.9 Lymph # (Auto) 1.0 L [place] # (Auto) 1.3 H Eos # (Auto) 0.2 Baso # (Auto) 0.1 Abs Immat Gran (auto) 0.03 Absolute Neuts (auto) 7.0 Absolute Nucleated RBC 0.000 Nucleated RBC % (auto) 0.0 PT 14.0 H INR 1.2 H APTT 51.0 H Hold Blue Top SEE NOTE Sodium 138 Potassium 4.5 Chloride 102 Carbon Dioxide 27 Anion Gap 14 BUN 20 H Creatinine 0.90 Estim Creat Clear Calc 96.4 Estimated GFR > 60 Random Glucose 85 Calcium 8.7 Lactate Dehydrogenase 253 Troponin I High Sens B-Natriuretic Peptide Peritoneal Tot Protein Peritoneal LDH Peritoneal Glucose Coronavirus (PCR) Influenza Type A (PCR) Influenza Type B (PCR) RSV RNA Qual (PCR) 06/19/20 06/19/20 06/19/20 11:11 12:07 14:19 WBC RBC Hgb Hct MCV MCH MCHC RDW Plt Count MPV Immature Gran % (Auto) Neut % (Auto) Lymph % (Auto) [place] % (Auto) Eos % (Auto) Baso % (Auto) Lymph # (Auto) [place] # (Auto) Eos # (Auto) Baso # (Auto) Abs Immat Gran (auto) Absolute Neuts (auto) Absolute Nucleated RBC Nucleated RBC % (auto) PT INR APTT Hold Blue Top Sodium Potassium Chloride Carbon Dioxide Anion Gap BUN Creatinine Estim Creat Clear Calc Estimated GFR Random Glucose Calcium Lactate Dehydrogenase Troponin I High Sens 13.7 13.0 B-Natriuretic Peptide 108 H Peritoneal Tot Protein Peritoneal LDH Peritoneal Glucose Coronavirus (PCR) NEGATIVE Influenza Type A (PCR) NEGATIVE Influenza Type B (PCR) NEGATIVE RSV RNA Qual (PCR) NEGATIVE 06/19/20 06/20/20 06/20/20 16:55 05:53 05:53 WBC 9.3 RBC 3.37 L Hgb 9.6 L Hct 29.8 L MCV 88.4 MCH 28.5 MCHC 32.2 RDW 15.9 Plt Count 224 MPV 11.5 Immature Gran % (Auto) 0.3 Neut % (Auto) 72.5 Lymph % (Auto) 8.8 L [place] % (Auto) 14.7 H Eos % (Auto) 2.7 Baso % (Auto) 1.0 Lymph # (Auto) 0.8 L [place] # (Auto) 1.4 H Eos # (Auto) 0.3 Baso # (Auto) 0.1 Abs Immat Gran (auto) 0.03 Absolute Neuts (auto) 6.8 Absolute Nucleated RBC 0.000 Nucleated RBC % (auto) 0.0 PT INR APTT Hold Blue Top Sodium 138 Potassium 4.6 Chloride 105 Carbon Dioxide 25 Anion Gap 13 BUN 16 Creatinine 0.72 Estim Creat Clear Calc 120.5 Estimated GFR > 60 Random Glucose 85 Calcium 8.1 L D Lactate Dehydrogenase Troponin I High Sens B-Natriuretic Peptide Peritoneal Tot Protein 4.1 Peritoneal LDH 99 Peritoneal Glucose 109 Coronavirus (PCR) Influenza Type A (PCR) Influenza Type B (PCR) RSV RNA Qual (PCR) Assessment and Plan (1) NICM (nonischemic cardiomyopathy): Status: Acute (2) Non-rheumatic aortic stenosis: Status: Acute (3) LBBB (left bundle branch block): Status: Acute (4) Hypotension (arterial): Status: Acute (5) Pleural effusion: Status: Acute (6) Breath shortness: Status: Acute (7) Chest pain: Qualifiers: Chest pain type: unspecified Qualified Code(s): R07.9 - Chest pain, unspecified Status: Acute Atrial sensed ventricular paced rhythm at 82/Min. In the recent echocardiogram, LVEF 50-55% with grade 2 diastolic dysfunction. Mean gradient was 25 mm Hg. Dimensionless index was 0.21 and he was thought to have low gradient severe aortic stenosis. In the cardiac catheterization recently performed, he had distal left main 30% stenosis but otherwise normal coronary arteries. His filling pressures are also normal. Cardiac index was normal. Overall thought to have moderate to severe aortic stenosis. For the pleural effusion is not clear. Based on the recent normal filling pressures on catheterization last week, less likely to be cardiac etiology. Cardiac BNP with minimal elevation. High sensitivity troponins are unremarkable. He can be discharged home from cardiac. Will arrange outpatient follow-up.
[2020-06-20 11:52] VITALS: BP 93/50; PULSE 83; RESP 18; TEMP 37.2; O2SAT 98
--- NOTE | 2020-06-20 12:09 | PM.DS ---
DS: Providers Provider Date of admission: 06/19/20 18:12 Primary care physician: Yesica Kay MD Consults: 06/19/20 18:12 Consult to Cardiology Routine Consulting Provider: Hamilton Wyman Reason for consultation: chest pain Has provider been notified: No DS: Diagnosis Discharge Diagnosis (1) NICM (nonischemic cardiomyopathy): Status: Acute (2) Non-rheumatic aortic stenosis: Status: Acute (3) LBBB (left bundle branch block): Status: Acute (4) Hypotension (arterial): Status: Acute (5) Pleural effusion: Status: Acute (6) Breath shortness: Status: Acute (7) Chest pain: Status: Acute DS: Medications Discharge Medications Home Medications: Home Medications Medication Instructions Recorded Confirmed aspirin 81 mg tablet,delayed 81 mg PO DAILY 06/03/20 06/19/20 release eplerenone 25 mg tablet 25 mg PO DAILY 06/03/20 06/19/20 furosemide 20 mg tablet 20 mg PO BIDWM tab 06/03/20 06/19/20 levothyroxine 175 mcg tablet 175 mcg PO DAILY@0630 06/03/20 06/19/20 lisinopril 2.5 mg tablet 2.5 mg PO DAILY 06/03/20 06/19/20 Previous Rx's Medication Instructions Recorded carvedilol 6.25 mg PO BID #1 tab 06/20/20 DS: Summary Hospital Course Hospital Course: Admission note HPI A 59-year-old male who presents to the emergency department with chest pain. Patient underwent cardiac catheterization at [facility] on 06/16/2020. This revealed no obstructive coronary artery disease. Today while at work he developed left-sided stabbing chest pain with associated shortness of breath diaphoresis. He was brought to the emergency department for evaluation. EKG revealed a paced rhythm. Troponin was flat x2. Chest x-ray showed small pleural effusion. Underwent CTA which showed no evidence PE but showed large right pleural effusion. He underwent therapeutic and diagnostic thoracentesis with removal of 1.1 L of serosanguineous fluid was removed. Patient reports improvement in his symptoms following the procedure. Initially patient was hypotensive on arrival but blood pressure has subsequently improved to 1 0 6/52. He does report that his blood pressure typically runs on the low side. He will be admitted overnight for observation. Hospital course The patient was admitted to the hospital for evaluation of chest pain and shortness of breath. Found to have right-sided pleural effusion which was aspirated by IR. Initial analysis showing transudate fluid. Cytology and culture still pending. His breathing improved significantly after the procedure. EKG, cardiac monitoring and cardiac enzymes were all negative for any acute events. He was evaluated by Cardiology who recommended no intervention needed at this point and with concern about the pleural effusion that it might not be cardiac and from other reason just like malignancy. Pathology report still pending though. The patient was able to ambulate at baseline. He reports chest pain resolved and dyspnea improved significantly. He has chronic orthostatic hypotension which was noted during his hospital stay. His carvedilol dose was decreased to 6.25 b.i.d. after discussing with Cardiology. To follow up with Cardiology as outpatient to continue current Home medications Time Spent with Patient Time attestation: Total time spent providing and/or coordinating discharge services: Physical Exam Vital Signs: Vital Signs: Last Vital Signs Temp 99.0 F 06/20/20 11:52 Pulse 83 06/20/20 11:52 Resp 18 06/20/20 11:52 BP 93/50 L 06/20/20 11:52 Pulse Ox 98 06/20/20 11:52 Body Mass Index 25.7 Constitutional : Alert, oriented, not in distress Neck : Normal inspection, Supple Cardiovascular : RRR, S1 S2, no lower extremity edema Respiratory : Good bilateral air entry, no crackles, wheezes or rhonchi Gastrointestinal: soft, lax, Normal bowel sounds, Non tender Skin : Warm/Dry, No rash Neurological : Alert & oriented x3, No focal deficit DS: Data Data Completed and Pending Pending studies at discharge: Pending at discharge 06/19/20 17:04 Cytology [PTH] Routine Labs on day of discharge: 06/19/20 ECG 12 lead EKG Stat XR chest 1V Stat 06/19/20 11:05 EKG Documentation DIRECTED 06/19/20 11:11 B Type Natriuretic Peptide Stat Basic Metabolic Panel Stat CBC W/AUTO DIFF [Complete Blood Count Auto Diff] Stat Hold Lt Blue - Possible Coag Stat Lactate Dehydrogenase Stat Partial Thromboplastin Time Stat Prothrombin Time INR Stat Troponin-I High Sensitivity Stat 06/19/20 11:33 XR chest 2V Stat 06/19/20 11:45 Add Laboratory Test Stat 06/19/20 12:07 SARS-CoV2/FLU/RSV Stat 06/19/20 12:45 CT angio chest PE protocol Stat 06/19/20 12:46 0.9 % Sodium Chloride 999 ml IV BOLUS ONE 06/19/20 13:12 Add Laboratory Test Stat 06/19/20 13:35 iohexoL 350 MG/ML [Omnipaque 350 MG/ML] 65 ml IV ONCE ONE 06/19/20 14:19 Troponin-I High Sensitivity Stat 06/19/20 16:15 US drain thoracentesis Stat 06/19/20 16:30 Lidocaine HCl 1 % MPF [Xylocaine 1 % MPF] 5 ml .ROUTE .STK-MED ONE 06/19/20 16:55 Glucose Peritoneal Fluid Stat LDH Peritoneal Fluid Stat Total Protein Peritoneal Fluid Stat Lidocaine HCl 1 % MPF [Xylocaine 1 % MPF] 5 ml SUBCUT ONCE ONE 06/19/20 18:18 Transfer Order Routine 06/19/20 19:06 Add Laboratory Test Stat 06/20/20 05:53 Basic Metabolic Panel DAILY@0600 Complete Blood Count Auto Diff DAILY@0600 Laboratory Last Values WBC 9.3 X10*3/uL (4.8-10.8) 06/20/20 05:53 RBC 3.37 X10*6/uL (4.60-5.80) L 06/20/20 05:53 Hgb 9.6 g/dl (14.0-18.0) L 06/20/20 05:53 Hct 29.8 % (42-52) L 06/20/20 05:53 MCV 88.4 fL (80-98) 06/20/20 05:53 MCH 28.5 pg (27.0-33.0) 06/20/20 05:53 MCHC 32.2 g/dl (31.0-36.0) 06/20/20 05:53 RDW 15.9 % (11.0-16.0) 06/20/20 05:53 Plt Count 224 X10*3/uL (160-400) 06/20/20 05:53 MPV 11.5 fL (9.4-12.4) 06/20/20 05:53 Immature Gran % (Auto) 0.3 % (0.0-0.4) 06/20/20 05:53 Neut % (Auto) 72.5 % (45-73) 06/20/20 05:53 Lymph % (Auto) 8.8 % (20-40) L 06/20/20 05:53 [place] % (Auto) 14.7 % (2-11) H 06/20/20 05:53 Eos % (Auto) 2.7 % (0-4) 06/20/20 05:53 Baso % (Auto) 1.0 % (0-2) 06/20/20 05:53 Lymph # (Auto) 0.8 X10*3/uL (1.2-4.9) L 06/20/20 05:53 [place] # (Auto) 1.4 X10*3/uL (0.1-1.2) H 06/20/20 05:53 Eos # (Auto) 0.3 X10*3/uL (0.0-0.4) 06/20/20 05:53 Baso # (Auto) 0.1 X10*3/uL (0.0-0.2) 06/20/20 05:53 Abs Immat Gran (auto) 0.03 X10*3/uL (0.00-0.03) 06/20/20 05:53 Absolute Neuts (auto) 6.8 X10*3/uL (2.0-8.3) 06/20/20 05:53 Absolute Nucleated RBC 0.000 X10*3/uL (0.0-0.012) 06/20/20 05:53 Nucleated RBC % (auto) 0.0 /100WBC (0.0-0.2) 06/20/20 05:53 PT 14.0 SEC (10.8-13.0) H 06/19/20 11:11 INR 1.2 (0.9-1.1) H 06/19/20 11:11 APTT 51.0 SEC (24.1-38.0) H 06/19/20 11:11 Hold Blue Top SEE NOTE 06/19/20 11:11 Sodium 138 mmol/L (135-145) 06/20/20 05:53 Potassium 4.6 mmol/l (3.3-5.1) 06/20/20 05:53 Chloride 105 mmol/L (96-108) 06/20/20 05:53 Carbon Dioxide 25 mmol/L (22-29) 06/20/20 05:53 Anion Gap 13 (12-20) 06/20/20 05:53 BUN 16 mg/dL (9-16) 06/20/20 05:53 Creatinine 0.72 mg/dL (0.5-1.4) 06/20/20 05:53 Estim Creat Clear Calc 120.5 06/20/20 05:53 Estimated GFR > 60 06/20/20 05:53 Random Glucose 85 mg/dL (60-115) 06/20/20 05:53 Calcium 8.1 mg/dL (8.4-10.2) L D 06/20/20 05:53 Lactate Dehydrogenase 253 U/L (118-273) 06/19/20 11:11 Troponin I High Sens 13.0 ng/L (<3.5-35.0) 06/19/20 14:19 B-Natriuretic Peptide 108 pg/mL (<100) H 06/19/20 11:11 Peritoneal Tot Protein 4.1 06/19/20 16:55 Peritoneal LDH 99 06/19/20 16:55 Peritoneal Glucose 109 06/19/20 16:55 Coronavirus (PCR) NEGATIVE (Negative) 06/19/20 12:07 Influenza Type A (PCR) NEGATIVE (Negative) 06/19/20 12:07 Influenza Type B (PCR) NEGATIVE (Negative) 06/19/20 12:07 RSV RNA Qual (PCR) NEGATIVE (Negative) 06/19/20 12:07 Preliminary micro results at discharge 06/19/20 16:55 Routine Culture - Preliminary Pleural Fluid No growth to date. Discharge Plan Discharge Patient Disposition: Home, Self-Care Referrals: Yesica Burden MD [Primary Care Provider] - Discharge Medications: Continued aspirin 81 mg tablet,delayed release (DR/EC) 81 mg PO DAILY RF: 0 eplerenone 25 mg tablet 25 mg PO DAILY RF: 0 furosemide 20 mg tablet 20 mg PO BIDWM RF: 0 levothyroxine 175 mcg tablet 175 mcg PO DAILY@0630 RF: 0 lisinopril 2.5 mg tablet 2.5 mg PO DAILY RF: 0 Changed carvedilol 12.5 mg tablet 6.25 mg PO BID Qty: 1 RF: 0 Discharge Orders: Discharge Order (Routine); Ordered 06/20/20 Ordered By: Jhony Erickson Diet: advance to usual diet Activity on Discharge: As tolerated Visit Report Forms: Patient Portal Discharge page Care Plan Goals: Read below Health Concerns: Read below Plan of Treatment: You have presented to the hospital complaining of chest pain and difficulty breathing on ambulation. You were evaluated by EKG, heart enzymes and heart monitoring which did not show any evidence of heart attack or injury. You were noticed to have large fluid collection over your right lung. The fluids were aspirated and sent for analysis. Pathology report still pending and should be followed by your PCP or grape crusher as outpatient. You were seen by Cardiology who recommended no intervention at this point. Will decrease your carvedilol to 6.25 mg twice daily. To follow up with Cardiology as outpatient
--- NOTE | 2020-06-20 12:37 | MHC.CM.PN ---
Patient has been medically cleared for dc to home today.
== END 2020-06-20 15:29 | disposition home or self-care (01) ==
LOC: HO.ED 16:01 → HO.IMC 20:24
PROVIDERS: Physician Assistant Medical; Admitting Provider Student in an Organized Health Care Education/Training Program; Emergency Provider Emergency Medicine; PCP Internal Medicine; Visit Provider Student in an Organized Health Care Education/Training Program
DX: I42.8 Other cardiomyopathies (principal); I35.0 Nonrheumatic aortic (valve) stenosis; I44.7 Left bundle-branch block, unspecified; I95.9 Hypotension, unspecified; J90 Pleural effusion, not elsewhere classified; R06.02 Shortness of breath; R07.9 Chest pain, unspecified; I50.20 Unspecified systolic (congestive) heart failure; E03.9 Hypothyroidism, unspecified; C81.90 Hodgkin lymphoma, unspecified, unspecified site; Z20.828 Contact with and (suspected) exposure to other viral communicable diseases; Z98.890 Other specified postprocedural states; Z95.0 Presence of cardiac pacemaker; Z79.899 Other long term (current) drug therapy
CPT/HCPCS: 32555; 0241U; 32557; 36415; 71045; 71046; 71275; 80048; 82945; 83615; 83880; 84157; 84484; 85025; 85610; 85730; 87071; 87102; 87116; 87205; 88112; 88305; 88341; 88342; 93005; 99219; 99284; 99291; J1650; Q9967

== ENCOUNTER → 2020-06-22 13:46 | Outpatient (BNVA) | payer OTHER, SELFPAY | PROVIDERS: PCP Internal Medicine; Referring Provider Internal Medicine; Visit Provider Internal Medicine | DX: Z76.89 Persons encountering health services in other specified circumstances (principal) ==

== ENCOUNTER 2020-06-29 13:49 | Outpatient (REF) | payer OTHER, SELFPAY ==
--- NOTE | 2020-06-29 13:57 | XR_ITS ---
EXAMINATION: XR CHEST CLINICAL INFORMATION: J90 - Pleural effusion, not elsewhere classified COMPARISON: Chest radiographs 06/19/2020, 05/04/2020; CT chest 06/19/2020. Ultrasound-guided right thoracentesis 06/19/2020. TECHNIQUE: 2 views of the chest were obtained. FINDINGS: There is small right effusion similar to pre-thoracentesis exam 06/19/2020 and the exam 05/04/2020. Left costophrenic sulci are clear. Heart is normal in size. Vascularity is normal. There is passive atelectasis right base adjacent to the effusion. Pacemaker/defibrillator devices again seen with surgical clips left upper abdomen and chronic bulky calcification overlying the superior medial left hemithorax and mid right abdomen. XR/XR chest 2V IMPRESSION: Chronic small right effusion similar to previous pre-thoracentesis radiograph 06/19/2020 and chest radiographs 05/04/2020.
== END 2020-06-29 13:50 | disposition home or self-care (01) ==
LOC: HO.XRAY 13:49
PROVIDERS: PCP Internal Medicine; Visit Provider Internal Medicine
DX: I35.0 Nonrheumatic aortic (valve) stenosis (principal)
CPT/HCPCS: 71046

== ENCOUNTER → 2020-07-08 11:02 | Outpatient (BNVA) | payer OTHER, SELFPAY | PROVIDERS: PCP Internal Medicine; Visit Provider Internal Medicine Pulmonary Disease | DX: Z76.89 Persons encountering health services in other specified circumstances (principal) ==

== ENCOUNTER → 2020-07-09 12:23 | Outpatient (BNVA) | payer OTHER, SELFPAY | PROVIDERS: PCP Internal Medicine; Visit Provider Internal Medicine | DX: I35.0 Nonrheumatic aortic (valve) stenosis (principal); I42.8 Other cardiomyopathies; I44.7 Left bundle-branch block, unspecified; I95.0 Idiopathic hypotension; J90 Pleural effusion, not elsewhere classified | CPT/HCPCS: 93005 ==

== ENCOUNTER → 2020-07-20 10:16 | Outpatient (BNVA) | payer OTHER, SELFPAY | PROVIDERS: PCP Internal Medicine; Visit Provider Internal Medicine | DX: Z76.89 Persons encountering health services in other specified circumstances (principal) ==

== ENCOUNTER → 2020-07-21 11:06 | Outpatient (REF) | payer OTHER, SELFPAY ==
--- NOTE | 2020-07-21 11:36 | CA_ITS ---
Acquisition Time: 2020-07-21 11:49:47 Total Exercise Time: 00:17:35 Test Indications: i35.0 Medications: see chart Protocol: DOBUTAMINE Max HR: 117 BPM 71% of Pred: 163 BPM Max BP: 124/074 mmHG Max Work Load: 1.0 METS Pharmacological stress test with Dobutamine infusion to max of 20mcg/kg/min achieving heart rate 110, with report of shortness of breath white laying in the left lateral position, without chest discomfort, with isolated PVCs, with normotensive response to infusion, with nondiagnostic EKG for ischemia. Echo images obtained at [facility] at baseline, at 5mcg, at 10 mcg, at 20 mcg and in recovery. Post infusion he was monitored for 22 minutes. Condition remained stable. He reported improvement in breathing in a sitting postion. He had no rales on exam. Standing BP 98/62 at completion on test. Report reviewed with Dr Wyman. Referred By: Hamilton Wyman Overread By: JONO RIVAS
== END ==
LOC: HO.CARD 11:06
PROVIDERS: PCP Internal Medicine; Visit Provider Internal Medicine
DX: I35.0 Nonrheumatic aortic (valve) stenosis (principal)
CPT/HCPCS: 93016; 93017; 93018; 93350; 93351; J1250

== ENCOUNTER 2020-08-14 13:44 | Outpatient (REF) | payer OTHER, SELFPAY ==
[2020-08-14 14:40] LABS: B Type Natriuretic Peptide 119 pg/mL (<100)
[2020-08-14 14:50] LABS: Alanine Aminotransferase 10 U/L (0-40); Alkaline Phosphatase 58 U/L (39-117); Anion Gap 11 (12-20); Aspartate Amino Transferase 19 U/L (5-37); Bilirubin Total 0.7 mg/dL (0.0-1.0); Blood Urea Nitrogen 20 mg/dL (9-16); Calcium 8.5 mg/dL (8.4-10.2); Carbon Dioxide 30 mmol/L (22-29); Chloride 100 mmol/L (96-108); Cholesterol 112 mg/dL; Estimated Glomerular Filt Rate > 60; Glucose Fasting 100 mg/dL (60-99); HDL Cholesterol 33 mg/dL; LDL Cholesterol Calculated 68 mg/dl; Potassium 4.6 mmol/L (3.3-5.1); Sodium 136 mmol/L (135-145); Total Protein 6.9 g/dL (6.5-8.0); Triglycerides 58 mg/dL
[2020-08-14 15:10] LABS: TSH reflex Free T4 0.15 uIU/mL (0.32-4.0)
[2020-08-14 16:27] LABS: Free T4 (Free Thyroxine) 1.38 ng/dL (0.71-1.85)
[2020-08-17 15:27] LABS: Calcium, Ionized 4.9 mg/dL (4.8-5.6)
[2020-08-17 18:12] LABS: Thyroglobulin Antibodies <1 IU/mL (< or = 1)
[2020-08-17 22:08] LABS: Thyroid Peroxidase Antibodies <1 IU/mL (<9)
[2020-08-22 19:22] LABS: Parathyroid Hormone Related Pr 12 pg/mL (14-27)
== END 2020-08-14 13:45 | disposition home or self-care (01) ==
LOC: HO.LAB 13:44
PROVIDERS: Visit Provider Internal Medicine
DX: I50.20 Unspecified systolic (congestive) heart failure (principal); E03.9 Hypothyroidism, unspecified; E83.51 Hypocalcemia; J90 Pleural effusion, not elsewhere classified; E78.5 Hyperlipidemia, unspecified
CPT/HCPCS: 36415; 80053; 80061; 82330; 83519; 83880; 84439; 84443; 86376; 86800

== ENCOUNTER 2020-09-15 20:49 | Inpatient (IN) | payer OTHER, SELFPAY ==
--- NOTE | ~2020-09-15 | US_ITS ---
EXAMINATION: US VENOUS ULTRASOUND WITH DOPPLER LOWER EXTREMITY, LEFT CLINICAL INFORMATION: Swelling COMPARISON: None TECHNIQUE: Ultrasound of the deep veins is performed from the hip to the calf with compression sonography and color and pulse Doppler assessment. Spectral analysis with color-flow imaging is performed. FINDINGS: There is normal venous compression and respiratory variation and augmented flow. The visualized common femoral vein, superficial femoral vein, profunda femoral vein, popliteal vein, and the trifurcation region shows no evidence of deep venous thrombosis. There is no significant popliteal fossa cyst. If the patient's symptoms persist, followup ultrasound in 5 days 7 days might be of value to exclude proximal propagation from a non-visualized calf vein. US/US venous duplex LE LT IMPRESSION: No DVT demonstrated in the left lower extremity.
--- NOTE | ~2020-09-15 | XR_ITS ---
EXAMINATION: PORTABLE CHEST 1 VIEW CLINICAL INFORMATION: sob . COMPARISON: 06/29/2020. TECHNIQUE: Portable frontal view of the chest was obtained. FINDINGS: The lungs are hypoexpanded with blunting of the right costophrenic angle suggesting layering right-sided pleural effusion and mild basilar atelectasis. No overt edema or pneumothorax. Cardiac silhouette within normal limits for size. Biventricular pacemaker/AICD is again seen with lead tips overlying the right atrium, right ventricle, and coronary sinus. Surgical clips in the left upper quadrant. XR/XR chest 1V IMPRESSION: Hypoexpanded with small right pleural effusion and basilar markings more likely due to atelectasis
[2020-09-15 20:53] VITALS: BP 125/60; PULSE 119; RESP 18; TEMP 37.1; O2SAT 97; BMI 26.3
[2020-09-15 21:06] LABS: MANUAL DIFF FLAG NO
[2020-09-15 21:11] LABS: Basophils Absolute Auto 0.1 X10*3/uL (0.0-0.2); Basophils Percent Auto 0.9 % (0-2); Eosinophils Absolute Auto 0.2 X10*3/uL (0.0-0.4); Eosinophils Percent Auto 1.5 % (0-4); Hematocrit 28.7 % (42-52); Imm Gran Abs Auto 0.03 X10*3/uL (0.00-0.03); Imm Gran Pct Auto 0.3 % (0.0-0.4); Lymphocytes Absolute Auto 1.2 X10*3/uL (1.2-4.9); Lymphocytes Percent Auto 10.8 % (20-40); Mean Corpuscular HGB Conc 31.4 g/dl (31.0-36.0); Mean Corpuscular Hemoglobin 24.3 pg (27.0-33.0); Mean Corpuscular Volume 77.6 fL (80-98); Mean Platelet Volume 9.7 fL (9.4-12.4); Monocytes Absolute Auto 1.4 X10*3/uL (0.1-1.2); Monocytes Percent Auto 13.1 % (2-11); Neutrophils Absolute Auto 7.9 X10*3/uL (2.0-8.3); Neutrophils Percent Auto 73.4 % (45-73); Platelet Count 441 X10*3/uL (160-400); Red Cell Distribution Width 16.1 % (11.0-16.0); White Blood Count 10.7 X10*3/uL (4.8-10.8)
[2020-09-15 21:38] LABS: Alanine Aminotransferase 11 U/L (0-40); Albumin Level 3.7 g/dL (3.5-5.0); Alkaline Phosphatase 58 U/L (39-117); Anion Gap 13 (12-20); Aspartate Amino Transferase 20 U/L (5-37); Bilirubin Total 0.4 mg/dL (0.0-1.0); Blood Urea Nitrogen 22 mg/dL (9-16); Calcium 8.4 mg/dL (8.4-10.2); Carbon Dioxide 25 mmol/L (22-29); Chloride 104 mmol/L (96-108); Creatinine Clr Calc Pharmacy 91.3; Estimated Glomerular Filt Rate > 60; Glucose Random 105 mg/dL (60-115); Potassium 4.4 mmol/L (3.3-5.1); Sodium 138 mmol/L (135-145); Total Protein 6.6 g/dL (6.5-8.0)
--- NOTE | 2020-09-15 22:36 | ED.GENADULT ---
HPI - General Adult General Chief complaint: General Medical Stated complaint: LEGS SWELLING Time Seen by Provider: 09/15/20 22:36 Source: patient Mode of arrival: ambulatory Limitations: no limitations History of Present Illness HPI narrative: 59-year-old male history of severe aortic aneurysm, patient in the process of getting TAVR surgery, patient is on Lasix. Patient came in for progressive dyspnea on exertion, bilateral lower extremity swelling. Patient also noted red discoloration to the lower extremities. Patient did not check his weight. Related Data Home Medications Medication Instructions Recorded Confirmed furosemide [Lasix] 40 mg PO BID 09/15/20 Previous Rx's Medication Instructions Recorded aspirin 81 mg tablet,delayed 81 mg PO DAILY #90 tab 07/09/20 release eplerenone 25 mg tablet 25 mg PO DAILY #90 tab 07/09/20 levothyroxine 175 mcg tablet 175 mcg PO DAILY 90 Days #90 tab 07/15/20 Allergies Allergy/AdvReac Type Severity Reaction Status Date / Time No Known Allergies Allergy Verified 07/20/20 11:06 [No Known Allergies*] Review of Systems Review of Systems: All other systems are reviewed and are negative Constitutional: Reports as per HPI and Reports no additional constitutional complaints Eyes: Reports as per HPI and Reports no additional eye complaints Reports system reviewed and no additional complaints, except as documented Cardiovascular: Reports as per HPI and Reports no additional cardiovascular complaints Respiratory: Reports as per HPI and Reports no additional respiratory complaints Gastrointestinal: Reports as per HPI and Reports no additional gastrointestinal complaints Genitourinary: Reports no additional female genitourinary complaints Musculoskeletal: Reports no additional musculoskeletal complaints Skin/Breast: Reports system reviewed and no additional complaints, except as docu Psychiatric: Reports no additional psychiatric complaints Endocrine: Reports no additional endocrine complaints Hematologic/Lymphatic: Reports no additional hematologic/lymphatic complaints Allergic/Immunologic: Reports no additional allergic/immunologic complaints Reports system reviewed and no additional complaints, except as documented and Reports Abnormal speech present [facility] Past Medical History Medical History Aortic stenosis Complete heart block HFrEF (heart failure with reduced ejection fraction) Hodgkins lymphoma Hypocalcemia Hypotension (arterial) Hypothyroid LBBB (left bundle branch block) NICM (nonischemic cardiomyopathy) Non-rheumatic aortic stenosis Pacemaker Surgical History H/O splenectomy History of appendectomy History of cardiac pacemaker Family History Family History Father No problems noted. Mother No problems noted. Social History Social History Alcohol intake: current Alcohol intake frequency: a few times a month Smoking Status: Never smoker Advance Directives: No Advance Directives Information Provided: Yes service: Yes Current occupational status: employed Physical Exam Vital Signs: Vital Signs: Last Vital Signs Temp 98.7 F 09/15/20 20:53 Pulse 119 H 09/15/20 20:53 Resp 18 09/15/20 20:53 BP 125/60 09/15/20 20:53 Pulse Ox 97 09/15/20 20:53 Body Mass Index 26.3 Vital signs have been reviewed as appeared to be correct. Blood pressure normal. Heart rate is tachycardia. Respiration rate normal. Temperature normal. Oxygen saturation normal. Appearance: Alert. Oriented X3. No acute distress. Head: Normal external exam. Normocephalic. Atraumatic. No Schreiber signs noted. No raccoon eyes noted Eyes: PERRLA. EOMI. Conjunctiva and sclera normal. Eyelids normal. ENT: TM's Normal. Pharynx normal. Uvula midline. Moist mucous membranes. No trismus noted. No drooling noted. No muffled voice noted. Neck: Normal inspection. Neck supple. FROM. No adenopathy. Thyroid Normal. No meningeal signs. No neck mass noted. CVS: Normal heart rate and rhythm. Heart sound normal. 5/6 systolic murmur noted. Pulses normal throughout. Respiratory: No respiratory distress. Painless inspiration. Breath sounds normal. No wheezes/rales/rhonchi noted. Chest nontender. No accessory muscle usage noted or decreased air movement noted. Abdomen: Soft and nontender. Bowel sounds normal in all 4 quadrants. No distention noted. No organomegaly noted. No visible injury noted. Back: No CVA tenderness. Full range of motion noted. Skin: Skin warm and dry. Normal skin color. Normal skin turgor. No rashes/lesions/lacerations noted. Extremities:+2 bilateral lower extremity edema. Extremities exhibit normal range of motion. Extremities nontender. Neuro: Oriented X 3. No motor deficit. No sensory deficit. Reflexes normal. Course Course Course Narrative: Assessment and plan. 59-year-old male with history of severe aortic stenosis awaiting for TAVR procedure, patient presented turning of lower extremity swelling and gaining weight, with orthopnea and difficulty breathing. Patient normally takes Lasix will give extra IV Lasix dose while in the emergency department. Admit for further cardiology evaluation. Medical Decision Making Lab Data Lab results reviewed: Yes I reviewed the patient's lab results. Result diagrams: 09/15/20 21:09/15/20 21: Labs: Lab Results 09/15/20 09/15/20 09/15/20 Range/Units 21: 21: 21:01 WBC 10.7 (4.8-10.8) X10*3/uL RBC 3.70 L (4.60-5.80) X10*6/uL Hgb 9.0 L (14.0-18.0) g/dl Hct 28.7 L (42-52) % MCV 77.6 L (80-98) fL MCH 24.3 L (27.0-33.0) pg MCHC 31.4 (31.0-36.0) g/dl RDW 16.1 H (11.0-16.0) % Plt Count 441 H D (160-400) X10*3/uL MPV 9.7 (9.4-12.4) fL Immature Gran % (Auto) 0.3 (0.0-0.4) % Neut % (Auto) 73.4 H (45-73) % Lymph % (Auto) 10.8 L (20-40) % [place] % (Auto) 13.1 H (2-11) % Eos % (Auto) 1.5 (0-4) % Baso % (Auto) 0.9 (0-2) % Lymph # (Auto) 1.2 (1.2-4.9) X10*3/uL [place] # (Auto) 1.4 H (0.1-1.2) X10*3/uL Eos # (Auto) 0.2 (0.0-0.4) X10*3/uL Baso # (Auto) 0.1 (0.0-0.2) X10*3/uL Abs Immat Gran (auto) 0.03 (0.00-0.03) X10*3/uL Absolute Neuts (auto) 7.9 (2.0-8.3) X10*3/uL Absolute Nucleated RBC 0.000 (0.0-0.012) X10*3/uL Nucleated RBC % (auto) 0.0 (0.0-0.2) /100WBC Hold Blue Top SEE NOTE Sodium 138 (135-145) mmol/L Potassium 4.4 (3.3-5.1) mmol/L Chloride 104 (96-108) mmol/L Carbon Dioxide 25 (22-29) mmol/L Anion Gap 13 (12-20) BUN 22 H (9-16) mg/dL Creatinine 0.95 (0.5-1.4) mg/dL Estim Creat Clear Calc 91.3 Estimated GFR > 60 Random Glucose 105 (60-115) mg/dL Calcium 8.4 (8.4-10.2) mg/dL Total Bilirubin 0.4 (0.0-1.0) mg/dL AST 20 (5-37) U/L ALT 11 (0-40) U/L Alkaline Phosphatase 58 (39-117) U/L Total Protein 6.6 (6.5-8.0) g/dL Albumin 3.7 (3.5-5.0) g/dL Imaging Data Chest x-ray: Radiologist's impression: Hypoexpanded with small right pleural effusion and basilar markings more likely due to atelectasis ECG Data Interpretation: Atrial sensed ventricular paced rhythm at 93 beats per minutes, right axis deviation, widening QRS, otherwise unremarkable intervals. Discharge Plan Discharge Clinical Impression: Bilateral edema of lower extremity, Aortic stenosis, severe Patient Disposition: Admitted As Inpatient Prescriptions: No Action furosemide [Lasix] 20 mg tablet 40 mg PO BID RF: 0 levothyroxine 175 mcg tablet 175 mcg PO DAILY 90 Days Qty: 90 RF: 1 eplerenone 25 mg tablet 25 mg PO DAILY Qty: 90 RF: 4 aspirin 81 mg tablet,delayed release (DR/EC) 81 mg PO DAILY Qty: 90 RF: 4
--- NOTE | 2020-09-15 22:56 | ECG_ITS ---
Test Reason : SOB/LEG PAIN Blood Pressure : / mmHG Vent. Rate : 093 BPM Atrial Rate : 093 BPM P-R Int : 150 ms QRS Dur : 146 ms QT Int : 438 ms P-R-T Axes : 069 252 055 degrees QTc Int : 544 ms Atrial-sensed ventricular-paced rhythm Abnormal ECG When compared with ECG of 19-JUN-2020 11:04, Vent. rate has increased BY 11 BPM Referred By: Priscilla La Electronically Signed By:Jairo Valdez
--- NOTE | 2020-09-16 00:10 | P.HPHOSP_ITS ---
History of Present Illness Date of Service: 09/15/20 Chief Complaint: Shortness of breath and leg swelling This is a 59-year-old male with past medical history of aortic stenosis, heart failure, Hodgkin's lymphoma, hypothyroidism, and complete heart block status post pacemaker presents to the hospital with complaints of leg swelling as well as shortness of breath. Patient reports that he has leg swelling are chronic and he is usually used to managing the by himself but for the past few days they have worsened mostly on the left with some redness on his lower extremity on the left, and tenderness. He is also complaining of shortness of breath that is chronic but has worsened in the past few days as well as chronic orthopnea. Patient reports shortness of breath on very minimal exertion and ambulation. He has a cough that is dry, no fever or some chills, no nausea or vomiting, no chest pain, no palpitations, no dizziness headache or change in vision at this time although says that if he exerts himself little more he does usually get dizzy due to history of . He has no abdominal pain diarrhea constipation, no urinary symptoms. No weakness numbness or tingling. Patient has history of severe aortic valve stenosis, with plans for TAVR in the near future On arrival to the ED patient hemodynamically stable with vitals of temp 98.7?, heart rate of 119, respiratory rate of 18, BP of 125/60, and satting 97% on room air Labs are significant for WBC count of 10.7, hemoglobin of 9.0 his baseline, hematocrit 28.7, BNP of 76, troponin of 5.3 Chest x-ray shows hypoexpanded with small right pleural effusion and bibasilar markings Past medical history as below reviewed and confirmed with patient Review of Systems Review of Systems: Yes all other systems are reviewed and are negative [facility] Medical History Aortic stenosis Complete heart block HFrEF (heart failure with reduced ejection fraction) Hodgkins lymphoma Hypocalcemia Hypotension (arterial) Hypothyroid LBBB (left bundle branch block) NICM (nonischemic cardiomyopathy) Non-rheumatic aortic stenosis Pacemaker Family History Father No problems noted. Mother No problems noted. Surgical History H/O splenectomy History of appendectomy History of cardiac pacemaker Social History Alcohol intake: current Alcohol intake frequency: a few times a month Smoking Status: Never smoker Advance Directives: No Advance Directives Information Provided: Yes service: Yes Current occupational status: employed Meds Allergies Allergy/AdvReac Type Severity Reaction Status Date / Time No Known Allergies Allergy Verified 07/20/20 11:06 [No Known Allergies*] Home Medications Medication Instructions Recorded Confirmed Last Taken Type furosemide [Lasix] 40 mg PO BID 09/15/20 09/15/20 1 Day Ago History ~09/14/20 Physical Exam Vital Signs and Narrative: Vital Signs: Last Vital Signs Temp 98.7 F 09/15/20 20:53 Pulse 119 H 09/15/20 20:53 Resp 18 09/15/20 20:53 BP 125/60 09/15/20 20:53 Pulse Ox 97 09/15/20 20:53 Body Mass Index 26.3 Const: General: cooperative Orientation/consciousness: patient oriented x3 Eyes: General: appearance normal, both eyes and all related structures Resp: Other: Patient sitting in bed, hunched over the table Effort & Inspection: able to speak in complete sentences, labored and respiratory distress Cardio: Other: Systolic murmur Rate: regular rate Rhythm: regular rhythm GI: Palpation (GI): Soft to palpation Auscultation: normal bowel sounds Skin: General skin exam: no rashes or lesions noted Neuro: General: patient oriented x3 Cognition (Neuro): normal cognition Extrem: Other: 1+ edema bilaterally, worse on the left with tightness of the count, he also has erythema of kwan area, tenderness, and mild warmth Results Labs CBC and Chem 7: 09/15/20 21:01 09/15/20 21:01 Labs: Laboratory Results - last 24 hr 09/15/20 09/15/20 09/15/20 21:01 21: 21:01 MCV 77.6 L MCH 24.3 L MCHC 31.4 RDW 16.1 H Plt Count 441 H D MPV 9.7 Immature Gran % (Auto) 0.3 Neut % (Auto) 73.4 H Lymph % (Auto) 10.8 L [place] % (Auto) 13.1 H Eos % (Auto) 1.5 Baso % (Auto) 0.9 Lymph # (Auto) 1.2 [place] # (Auto) 1.4 H Eos # (Auto) 0.2 Baso # (Auto) 0.1 Abs Immat Gran (auto) 0.03 Absolute Neuts (auto) 7.9 Absolute Nucleated RBC 0.000 Nucleated RBC % (auto) 0.0 Hold Blue Top SEE NOTE Anion Gap 13 Estim Creat Clear Calc 91.3 Estimated GFR > 60 Random Glucose 105 Calcium 8.4 Total Bilirubin 0.4 AST 20 ALT 11 Alkaline Phosphatase 58 Total Protein 6.6 Albumin 3.7 Imaging Radiologist's Impressions: Impressions Chest X-Ray 09/15/20 21:20 IMPRESSION: Hypoexpanded with small right pleural effusion and basilar markings more likely due to atelectasis Assessment and Plan (1) Cellulitis: Status: Acute (2) Bilateral edema of lower extremity: Status: Acute (3) Dyspnea: Status: Acute This is a 59-year-old male with past medical history of severe aortic stenosis who presents to the hospital with complaints of leg swelling as well as shortness of breath. # bilateral lower extremity edema - does have worsening swelling on the left - patient also has orthopnea as, PND, as well as dyspnea on exertion - at this time will treat as CHF given his history of severe although BNP is normal, troponin normal - chest x-ray shows bilateral markings - echo from 2019 shows ejection fraction of 50-55% Plan: - will start him on Lasix IV b.i.d. 40 - repeat echocardiogram - consult cardiology - will also obtain venous duplex from lower extremity to rule out DVT # cellulitis - there is erythema, tenderness and mild warmth - pt afebrile, no leukocytosis - will treat with augmentin for mild cellulitis - if worsens consider iv abx # Severe - rpt echo - cardiology consulted # [place] - although pt reports chronic, he says worst in past few days with chronic orthopnea - most likley due to his severe but cannot r/o PE - WIll obtain d-dimer, if elevated will order CTA - Pending lower extremity doppler # hypothyroidism - continue levothyroxine DVT ppx: heparin SubQ
[2020-09-16 00:14] LABS: B Type Natriuretic Peptide 76 pg/mL (<100)
[2020-09-16 00:15] LABS: Troponin-I High Sensitivity 5.3 ng/L (<3.5-35.0)
[2020-09-16] MEDS: Furosemide 40 MG/4 ML VIAL IVPUSH ×3 (00:40→18:04)
--- NOTE | 2020-09-16 00:48 | CA_ITS ---
Transthoracic Echocardiogram Patient (Last, First, Middle): Enrique Monahan, Gender: Male Date of : 1960 Age: 59 Procedure Date: 09/16/2020 Procedure Type: Transthoracic Echocardiogram Location: [facility] Height: 180.34 cm Weight: 85.73 kg BSA: 2.06 m2 Heart Rate: bpm BP: 125 / 60 mmHg Wind Field Service Manager: LASHAUN Referring MD: Bassem Velazquez MD Symptoms: orthopnea, PND Study Quality: Good Conclusions: - The left ventricular systolic function is low normal. The visually estimated ejection fraction is between 50-55%. - Normal right ventricular cavity size. There is borderline right ventricular systolic function. - There is severe aortic valve stenosis. The peak aortic velocity is 4.03 m/s with a calculated peak gradient of 65 mmHg. The mean gradient is 37 mmHg. The aortic valve area is 0.83 cm2. There is mild to moderate aortic valve regurgitation. - There is mild dilatation of the ascending aorta Findings Left Ventricle Normal left ventricular cavity size. There is normal left ventricular wall thickness. The left ventricular systolic function is low normal. The visually estimated ejection fraction is between 50-55%. There is no evidence of regional wall motion abnormalities. Abnormal diastolic function is noted. Spectral Doppler is indicative of a pseudonormal filling pattern. E/E prime ratio is between 8 and 15 consistent with indeterminate filling pressures. Right Ventricle Normal right ventricular cavity size. There is borderline right ventricular systolic function. There is a pacemaker wire seen in the right ventricle. Atria The left atrium is moderately dilated. Aortic Valve There is moderate calcification of the aortic valve. There is moderate thickening of the aortic valve. There is severe aortic valve stenosis. The peak aortic velocity is 4.03 m/s with a calculated peak gradient of 65 mmHg. The mean gradient is 37 mmHg. The aortic valve area is 0.83 cm2. There is mild to moderate aortic valve regurgitation. Mitral Valve Normal mitral valve structure and function. There is trace mitral valve regurgitation. There is no mitral valve stenosis. Pulmonic Valve Normal pulmonic valve structure and function. Tricuspid Valve Normal tricuspid valve structure and function. There is trace tricuspid valve regurgitation. Significantly elevated right atrial pressure. There is no evidence of pulmonary hypertension. Great Vessels There is mild dilatation of the ascending aorta. The visualized portions of the pulmonary artery and branches are normal. Venous The inferior vena cava is dilated and does not collapse with inspiration. Pericardium/Pleural There is no evidence of pericardial effusion. Prior Study Comparison Changes noted compared to prior study dated: 05/22/2020. Severe present. Measurements 2D Linear Measurements IVSd: 0.96 0.6-0.9/0.6-1.0 cm LVIDd: 5.12 3.9-5.3/4.2-5.9 cm LVIDd Index: 2.49 2.4-3.2/2.2-3.1 cm/m2 LVIDs: 3.81 2.0-3.6 cm LVPWd: 0.98 0.7-1.1 cm Ao Root: 3.70 2.1-3.5 cm LA Diam: 4.20 2.7-3.8/3.0-4.0 cm LAIDs Index: 2.04 1.5-2.3 cm/m2 LV Mass: 226.39 67-162/88-224 g LV Mass Index: 109.90 43-95/49-115 g/m2 LVOT Diam: 2.20 3.0+(-)1.3 cm Mitral Valve MV Pk E: 1.04 MV PK A: 0.79 MV Decel Time: 180.00 E/A: 1.30 E'Lateral: 10.10 E'Medial: 7.06 E/E' Med: 14.70 E/E' Lat: 10.30 PHT: 53.00 MVA PHT: 4.15 Decel [place]: 5.82 Aortic Valve AoV Pk Sixto: 4.03 AoV Mn Sixto: 2.87 AoV VTI: 0.81 AoV Pk Grad: 65.00 Aov Mn Grad: 37.00 DANUTA Cont.VTI: 0.83 AI Pk Sixto: 3.33 AI [place]: 2.22 LVOT LVOT Pk Sixto: 1.00 LVOT Mn Sixto: 0.67 LVOT VTI: 0.18 LVOT Pk Grad: 4.00 LVOT Mn Grad: 2.00 LVOT Diam: 2.20 LVOT Area: 3.80 Diastolic Function MV Pk E: 1.04 MV Pk A: 0.79 E/A: 1.30 E'Medial: 7.06 E/E' Med: 14.70 E' Laterial: 10.10 E/E' Lat: 10.30 Tricuspid Valve TR Pk Sixto: 2.25 TR Pk Grad: 20.00 RVSP: 35.00 Great Vessels Aorta Ao Root-2D: 3.70 2.0-3.7 cm Ao Asc: 3.50 2.1-3.4 cm Ao Arch: 2.70 Updated in Other Vendor System with Status of Final Jairo Valdez MD electronically signed on 09/17/2020 11:53:49 AM with status of Final
[2020-09-16 00:56] LABS: COVID-19 Test Negative (Negative); IDNOW Serial# 9DD0AD1C
--- NOTE | 2020-09-16 00:57 | PC.NURSE ---
PT MOVED TO RECLINER CHAIR FOR COMFORT AND ABILITY TO BREATH BETTER. IV PLACED TO RAC, PT MEDICATED WITH LASIX IV PER EMAR. VS OBTAINED. PT DENIES ANY OTHER COMPLAINTS. WILL CONTINUE TO MONITOR PT.
[2020-09-16 05:47] LABS: D Dimer 2242 NG/ML
[2020-09-16 06:00] VITALS: BMI 25.8
[2020-09-16 06:07] LABS: Ferritin 34 ng/mL (20-250)
[2020-09-16 07:34] VITALS: BP 100/59; PULSE 88; RESP 20; TEMP 36.8; O2SAT 98
[2020-09-16 08:21] LABS: MANUAL DIFF FLAG NO
[2020-09-16 08:25] LABS: Basophils Absolute Auto 0.1 X10*3/uL (0.0-0.2); Basophils Percent Auto 1.2 % (0-2); Eosinophils Absolute Auto 0.3 X10*3/uL (0.0-0.4); Eosinophils Percent Auto 2.8 % (0-4); Hematocrit 29.2 % (42-52); Imm Gran Abs Auto 0.04 X10*3/uL (0.00-0.03); Imm Gran Pct Auto 0.5 % (0.0-0.4); Lymphocytes Absolute Auto 0.9 X10*3/uL (1.2-4.9); Lymphocytes Percent Auto 9.7 % (20-40); Mean Corpuscular HGB Conc 30.8 g/dl (31.0-36.0); Mean Corpuscular Hemoglobin 23.6 pg (27.0-33.0); Mean Corpuscular Volume 76.6 fL (80-98); Mean Platelet Volume 10.3 fL (9.4-12.4); Monocytes Absolute Auto 1.4 X10*3/uL (0.1-1.2); Monocytes Percent Auto 16.1 % (2-11); Neutrophils Absolute Auto 6.2 X10*3/uL (2.0-8.3); Neutrophils Percent Auto 69.7 % (45-73); Platelet Count 468 X10*3/uL (160-400); Red Blood Count 3.81 X10*6/uL (4.60-5.80); Red Cell Distribution Width 16.1 % (11.0-16.0); White Blood Count 8.8 X10*3/uL (4.8-10.8)
[2020-09-16] MEDS: 0.9 % Sodium Chloride Flush 3 ML SYRINGE IVFLUSH ×4 (08:44→22:27)
[2020-09-16] MEDS: Levothyroxine Sodium 175 MCG TABLET PO (08:44)
[2020-09-16] MEDS: Aspirin Enteric Coated 81 MG TABLET.DR PO (08:45)
[2020-09-16] MEDS: Heparin Sodium,Porcine 5,000 UNIT/ML VIAL 5000 UNIT SUBCUT ×2 (08:45→20:05)
[2020-09-16] MEDS: Amoxicillin/Potassium Clav 500 MG TABLET PO ×3 (08:45→22:26)
--- NOTE | 2020-09-16 08:51 | P.PNIM_ITS ---
Subjective Subjective Date of Service: 09/16/20 Interval History: Seen in f/u for exacerbation of heart failure. Legs are still very swollen. Shortness of breath with exertion Review of Systems Gen: no fever Resp: no sob, no cough CV: no chest, + [place], + leg edema GI: No n/v, no abd pain Neuro: No confusion Physical Exam Vital Signs: Vital Signs: Last Vital Signs Temp 98.2 F 09/16/20 07:34 Pulse 88 09/16/20 07:34 Resp 20 09/16/20 07:34 BP 100/59 L 09/16/20 07:34 Pulse Ox 98 09/16/20 07:34 Body Mass Index 25.8 Const: General: cooperative Orientation/consciousness: patient oriented x3 Resp: Effort & Inspection: able to speak in complete sentences, labored and respiratory distress Cardio: Other: Systolic murmur Rate: regular rate Rhythm: regular rhythm GI: Palpation (GI): Soft to palpation Auscultation: normal bowel sounds Skin: General skin exam: no rashes or lesions noted Neuro: General: patient oriented x3 Cognition (Neuro): normal cognition Extrem: Other: 2+ edema bilaterally, worse on the left with tightness of the count, he also has erythema of kwan area, tenderness, and mild warmth Objective Data Current Medications Generic Name Dose Route Start Last Admin Trade Name Coleq PRN Reason Stop Dose Admin Acetaminophen 650 mg 09/16/20 00:48 Acetaminophen 325 Mg Tablet PO Q6H PRN Pain, Mild (Pain Scale 1-3) Amoxicillin/Clavulanate Potassium 500 mg 09/16/20 07:00 09/16/20 08:45 Amoxicillin/Potassium Clav 500 Mg Tablet PO 500 mg Q8H JERRELL Administration Aspirin 81 mg 09/16/20 09:00 09/16/20 08:45 Aspirin Enteric Coated 81 Mg Tablet.Dr PO 81 mg DAILY JERRELL Administration Docusate Sodium 100 mg 09/16/20 00:48 Docusate Sodium 100 Mg Capsule PO DAILY PRN Constipation Furosemide 40 mg 09/16/20 09:00 09/16/20 08:45 Furosemide 40 Mg/4 Ml Vial IVPUSH 40 mg BID@0900,1800 JERRELL Administration Protocol Heparin Sodium (Porcine) 5,000 unit 09/16/20 07:00 09/16/20 08:45 Heparin Sodium,Porcine 5,000 Unit/Ml Vial SUBCUT 5,000 unit Q12H JERRELL Administration Levothyroxine Sodium 175 mcg 09/16/20 06:30 09/16/20 08:44 Levothyroxine Sodium 175 Mcg Tablet PO 175 mcg DAILY@0600 JERRELL Administration Non-Formulary Medication 25 mg 09/16/20 09:00 Eplerenone PO DAILY [facility] Ondansetron HCl 4 mg 09/16/20 00:48 Ondansetron Hcl 4 Mg/2 Ml Vial IVPUSH Q8H PRN Nausea and Vomiting Sodium Chloride 3 ml 09/16/20 00:48 09/16/20 08:44 0.9 % Sodium Chloride Flush 3 Ml Syringe IVFLUSH 3 ml QSHIFT JERRELL Administration Labs CBC & Chem 7: 09/16/20 07:42 09/15/20 21:01 Assessment and Plan (1) Cellulitis: Status: Acute (2) Bilateral edema of lower extremity: Status: Acute (3) Dyspnea: Status: Acute Assessment and Plan: 59-year-old male with past medical history of severe aortic stenosis who presents to the hospital with complaints of leg swelling as well as shortness of breath. # Acute diastolic CHF exacerbation with marked bilateral lower extremity edema, Orthopnea, CAM[place]GO in setting of severe Plan: - Continue IV Lasix - repeat echocardiogram - consult cardiology - venous duplex from lower extremity to rule out DVT # ?Cellulitis--I don't think the redess on leg is due to cellulitis rather venous stassi changes. He has been on Augmentin. If culture is negaive by tomorrow, I will discontinue Abx # Severe - rpt echo - cardiology consulted -he is post be going to [place] at some point for TAVR # [place] - although pt reports chronic, he says worst in past few days with chronic orthopnea - most likley due to his severe but cannot r/o PE -d-dimer>, get CTA, US of leg pending # hypothyroidism - continue levothyroxine DVT ppx: heparin SubQ
[2020-09-16 08:53] LABS: Anion Gap 11 (12-20); Blood Urea Nitrogen 18 mg/dL (9-16); Calcium 8.8 mg/dL (8.4-10.2); Carbon Dioxide 30 mmol/L (22-29); Chloride 100 mmol/L (96-108); Creatinine Clr Calc Pharmacy 112.7; Estimated Glomerular Filt Rate > 60; Glucose Random 92 mg/dL (60-115); Potassium 4.2 mmol/L (3.3-5.1); Sodium 137 mmol/L (135-145)
[2020-09-16 09:36] LABS: Folate 14.4 ng/mL (> or = 4.0); Vitamin B12 221 pg/mL (200-900)
--- NOTE | 2020-09-16 09:40 | MHC.CM.PN ---
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 Patient reports his is his HCP, copy requested. Discussed discharge plan, home no services. Lisette will provide transportation. CM will continue to follow patient for discharge needs.
[2020-09-16 12:00] VITALS: BP 101/56; PULSE 94; RESP 21; TEMP 37.1; O2SAT 98
[2020-09-16 15:56] VITALS: BP 99/62; PULSE 93; RESP 18; TEMP 37.1; O2SAT 96
--- NOTE | 2020-09-16 16:05 | P.CONCA_ITS ---
History of Present Illness History of Present Illness Date of Service: 09/16/20 Requesting physician: Jerardo Marshall Chief complaint: CHF Narrative: 9-year-old gentleman with background history of Hodgkin's lymphoma for which he underwent radiation many years ago. He has moderate to severe aortic valve stenosis, nonischemic cardiomyopathy with EF of 50 55% and r ecurrent right pleural effusion. He is presenting with bilateral lower extremity edema and dyspnea which started noticing couple days ago. He said he was checking his weight regularly till few weeks ago when he started checking. He said he noticed his legs to be swollen and red and he decided to go to the ER. In the ED he was thought to be in heart failure and was started on IV diuretics. He said his breathing never gets back to normal even after diuresis. He continues to be short of breath. He has seen pulmonology and was told there is no significant lung issues going on. He was seen by Dr. Zuniga at [facility] and due to moderate to severe aortic stenosis it was advised that he undergo dobutamine stress echo. To be does main stress echo showed that his valve is likely to be moderate. After that he was sent to [place] for a 2nd opinion and as per my discussion with Dr. Wyman, it is recommended that he undergoes valve replacement. Currently is presenting because he is volume overloaded and is in Review of Systems Review of Systems: Shortness of breath, edema Yes all other systems are reviewed and are negative [facility] Past Medical History Medical History Aortic stenosis Complete heart block HFrEF (heart failure with reduced ejection fraction) Hodgkins lymphoma Hypocalcemia Hypotension (arterial) Hypothyroid LBBB (left bundle branch block) NICM (nonischemic cardiomyopathy) Non-rheumatic aortic stenosis Pacemaker Family History Family History Father No problems noted. Mother No problems noted. Surgical History Surgical History H/O splenectomy History of appendectomy History of cardiac pacemaker Social History Social History Household Members: Spouse and Children Housing: House Do you presently have visiting nurse or other home services: No Alcohol intake: current Alcohol intake frequency: a few times a month Smoking Status: Never smoker Use of substances other than those prescribed or required for medical reasons: No Currently Displaying Signs/Symptoms of Drug Intoxication Withdrawal: No Have you been hit, kicked, punched, or otherwise hurt by someone within the past year? If so, by whom?: No Do you feel safe in your current relationship?: Yes Is there a partner from a previous relationship who is making you feel unsafe now?: No Are you made to feel afraid or neglected: No Advance Directives: No Advance Directives Information Provided: Yes Do you have thoughts of harming others: None Do you have a plan to hurt others: No Plan Recently lost weight without trying: No service: Yes Current occupational status: employed Meds Allergies Allergy/AdvReac Type Severity Reaction Status Date / Time No Known Allergies Allergy Verified 07/20/20 11:06 [No Known Allergies*] Active Medications: Current Medications Generic Name Dose Route Start Last Admin Trade Name Freq PRN Reason Stop Dose Admin Acetaminophen 650 mg 09/16/20 00:48 Acetaminophen 325 Mg Tablet PO Q6H PRN Pain, Mild (Pain Scale 1-3) Amoxicillin/Clavulanate Potassium 500 mg 09/16/20 07:00 09/16/20 16:02 Amoxicillin/Potassium Clav 500 Mg Tablet PO 500 mg Q8H JERRELL Administration Aspirin 81 mg 09/16/20 09:00 09/16/20 08:45 Aspirin Enteric Coated 81 Mg Tablet. PO 81 mg DAILY JERRELL Administration Docusate Sodium 100 mg 09/16/20 00:48 Docusate Sodium 100 Mg Capsule PO DAILY PRN Constipation Furosemide 40 mg 09/16/20 09:00 09/16/20 08:45 Furosemide 40 Mg/4 Ml Vial IVPUSH 40 mg BID@0900,1800 JERRELL Administration Protocol Heparin Sodium (Porcine) 5,000 unit 09/16/20 07:00 09/16/20 08:45 Heparin Sodium,Porcine 5,000 Unit/Ml Vial SUBCUT 5,000 unit Q12H JERRELL Administration Levothyroxine Sodium 175 mcg 09/16/20 06:30 09/16/20 08:44 Levothyroxine Sodium 175 Mcg Tablet PO 175 mcg DAILY@0600 JERRELL Administration Pat Own Med ( 1 each 09/16/20 12:30 09/16/20 13:07 Eplerenone 25mg) PO 1 each DAILY JERRELL Administration Ondansetron HCl 4 mg 09/16/20 00:48 Ondansetron Hcl 4 Mg/2 Ml Vial IVPUSH Q8H PRN Nausea and Vomiting Sodium Chloride 3 ml 09/16/20 00:48 09/16/20 16:02 0.9 % Sodium Chloride Flush 3 Ml Syringe IVFLUSH 3 ml QSHIFT JERRELL Administration Home Medications Medication Instructions Recorded Confirmed Last Taken Type furosemide [Lasix] 40 mg PO BID 09/15/20 09/15/20 1 Day Ago History ~09/14/20 Physical Exam Vital Signs: Vital Signs: Last Vital Signs Temp 98.7 F 09/16/20 15:56 Pulse 93 09/16/20 15:56 Resp 18 09/16/20 15:56 BP 99/62 09/16/20 15:56 Pulse Ox 96 09/16/20 15:56 Body Mass Index 25.8 GENERAL APPEARANCE: in no acute distress. HEENT: unremarkable. HEAD: normocephalic, atraumatic. NECK/THYROID: no carotid bruit, no jugular venous distention. Positive hepatojugular reflux SKIN: no suspicious lesions, warm and dry. HEART: Ejection systolic murmur in aortic area without 2nd heart sound, regular rate and rhythm. LUNGS: clear to auscultation bilaterally. ABDOMEN: normal, bowel sounds present, soft, nontender, nondistended. EXTREMITIES: no clubbing, cyanosis. 2+ edema peripherally. PERIPHERAL PULSES: equal. NEUROLOGIC: nonfocal, alert and oriented. PSYCH: mood/affect full range. Results Labs and Meds Result diagrams: 09/16/20 07:42 09/16/20 07:42 Lab results: Laboratory Results - last 24 hr 09/15/20 09/15/20 09/15/20 21:01 21:01 21:01 WBC 10.7 RBC 3.70 L Hgb 9.0 L Hct 28.7 L MCV 77.6 L MCH 24.3 L MCHC 31.4 RDW 16.1 H Plt Count 441 H D MPV 9.7 Immature Gran % (Auto) 0.3 Neut % (Auto) 73.4 H Lymph % (Auto) 10.8 L Sheridan % (Auto) 13.1 H Eos % (Auto) 1.5 Baso % (Auto) 0.9 Lymph # (Auto) 1.2 Sheridan # (Auto) 1.4 H Eos # (Auto) 0.2 Baso # (Auto) 0.1 Abs Immat Gran (auto) 0.03 Absolute Neuts (auto) 7.9 Absolute Nucleated RBC 0.000 Nucleated RBC % (auto) 0.0 D-Dimer 2242 Hold Blue Top SEE NOTE Sodium 138 Potassium 4.4 Chloride 104 Carbon Dioxide 25 Anion Gap 13 BUN 22 H Creatinine 0.95 Estim Creat Clear Calc 91.3 Estimated GFR > 60 Random Glucose 105 Calcium 8.4 Ferritin 34 Total Bilirubin 0.4 AST 20 ALT 11 Alkaline Phosphatase 58 Troponin I High Sens B-Natriuretic Peptide Total Protein 6.6 Albumin 3.7 Vitamin B12 Folate COVID-19 (SHANICE) COVID-19 Averail 09/15/20 09/16/20 09/16/20 21:01 00:36 07:42 WBC 8.8 RBC 3.81 L Hgb 9.0 L Hct 29.2 L MCV 76.6 L MCH 23.6 L MCHC 30.8 L RDW 16.1 H Plt Count 468 H MPV 10.3 Immature Gran % (Auto) 0.5 H Neut % (Auto) 69.7 Lymph % (Auto) 9.7 L Sheridan % (Auto) 16.1 H Eos % (Auto) 2.8 Baso % (Auto) 1.2 Lymph # (Auto) 0.9 L Sheridan # (Auto) 1.4 H Eos # (Auto) 0.3 Baso # (Auto) 0.1 Abs Immat Gran (auto) 0.04 H Absolute Neuts (auto) 6.2 Absolute Nucleated RBC 0.000 Nucleated RBC % (auto) 0.0 D-Dimer Hold Blue Top Sodium Potassium Chloride Carbon Dioxide Anion Gap BUN Creatinine Estim Creat Clear Calc Estimated GFR Random Glucose Calcium Ferritin Total Bilirubin AST ALT Alkaline Phosphatase Troponin I High Sens 5.3 D B-Natriuretic Peptide 76 Total Protein Albumin Vitamin B12 Folate COVID-19 (SHANICE) Negative COVID-19 Arynga Com See Note 09/16/20 09/16/20 07:42 07:42 WBC RBC Hgb Hct MCV MCH MCHC RDW Plt Count MPV Immature Gran % (Auto) Neut % (Auto) Lymph % (Auto) Sheridan % (Auto) Eos % (Auto) Baso % (Auto) Lymph # (Auto) Sheridan # (Auto) Eos # (Auto) Baso # (Auto) Abs Immat Gran (auto) Absolute Neuts (auto) Absolute Nucleated RBC Nucleated RBC % (auto) D-Dimer Hold Blue Top Sodium 137 Potassium 4.2 Chloride 100 Carbon Dioxide 30 H Anion Gap 11 L BUN 18 H Creatinine 0.77 Estim Creat Clear Calc 112.7 Estimated GFR > 60 Random Glucose 92 Calcium 8.8 Ferritin Total Bilirubin AST ALT Alkaline Phosphatase Troponin I High Sens B-Natriuretic Peptide Total Protein Albumin Vitamin B12 221 Folate 14.4 COVID-19 (SHANICE) COVID-19 Clin Com Imaging Radiologist's impression: Impressions Chest X-Ray 09/15/20 21:20 IMPRESSION: Hypoexpanded with small right pleural effusion and basilar markings more likely due to atelectasis Assessment and Plan (1) Aortic stenosis, severe: Status: Acute (2) NICM (nonischemic cardiomyopathy): Status: Acute (3) Congestive heart failure: Qualifiers: Heart failure type: diastolic Status: Acute Pleasant 59-year-old gentleman here for lower extremity edema and dyspnea. He has known history of chest radiation due to Hodgkin's lymphoma in the past and moderate to severe aortic valve stenosis and nonischemic cardiomyopathy with EF of 50-55%. He has been admitted previously with similar findings and congestive heart failure. Clinically is volume overloaded. Agree with 40 mg IV b.i.d. Lasix. I have reviewed his records at [facility] as well as TAVR consult done at [facility]. I had a detailed discussion with the patient about managing congestive heart failure. He has not been checking his weight daily. I have advised him to check his weight every day in the morning and if he gains any weight then he diuretic dose should be adjusted. He can call our office for adjustment of diuretics. Based on my discussion with Dr. Wyman, TAVR has been recommended for him. He is having recurrent episodes of congestive heart failure and I feel that if valve is thought to be the underlying cause for his congestive heart failure then the valve should be replaced sooner. Monitor electrolytes closely. We will follow along with you. Thank you for allowing me to participate in the care of your patient. Please feel free to contact me if you have any questions.
[2020-09-16 18:21] VITALS: BP 102/56
[2020-09-16 19:23] VITALS: BP 106/55; PULSE 99; RESP 18; TEMP 36.2; O2SAT 100
[2020-09-16] MEDS: traZODone HCL 25 MG HALFTAB PO (22:46)
[2020-09-17] VITALS (7 sets, daily range): BP systolic 90–107; BP diastolic 53–57; PULSE 92–101; RESP 16–20; TEMP 36.3–37.4; O2SAT 93–100; BMI 24.5
[2020-09-17] MEDS: Levothyroxine Sodium 175 MCG TABLET PO (05:30)
[2020-09-17] MEDS: Heparin Sodium,Porcine 5,000 UNIT/ML VIAL 5000 UNIT SUBCUT ×2 (06:21→18:05)
[2020-09-17] MEDS: Amoxicillin/Potassium Clav 500 MG TABLET PO ×3 (06:21→22:19)
[2020-09-17] MEDS: Furosemide 40 MG/4 ML VIAL IVPUSH ×2 (08:24→18:04)
[2020-09-17] MEDS: Aspirin Enteric Coated 81 MG TABLET.DR PO (08:24)
[2020-09-17 10:35] LABS: Anion Gap 12 (12-20); Blood Urea Nitrogen 17 mg/dL (9-16); Calcium 8.7 mg/dL (8.4-10.2); Carbon Dioxide 31 mmol/L (22-29); Chloride 100 mmol/L (96-108); Creatinine Clr Calc Pharmacy 103.3; Estimated Glomerular Filt Rate > 60; Glucose Random 117 mg/dL (60-115); Potassium 4.1 mmol/L (3.3-5.1); Sodium 139 mmol/L (135-145)
--- NOTE | 2020-09-17 10:44 | HO.PM.IMPN ---
Subjective Subjective Date of Service: 09/17/20 Interval History: Seen in f/u for exacerbation of heart failure. Legs are less swollen. Shortness of breath with exertion but better today Review of Systems Gen: no fever Resp: no sob, no cough CV: no chest, + CAMARGO, + leg edema GI: No n/v, no abd pain Neuro: No confusion Physical Exam Vital Signs: Vital Signs: Last Vital Signs Temp 98.6 F 09/17/20 07:36 Pulse 92 09/17/20 07:36 Resp 18 09/17/20 07:36 BP 90/53 L 09/17/20 07:36 Pulse Ox 93 09/17/20 07:36 Body Mass Index 24.5 Const: Other: Systolic murmur General: cooperative Orientation/consciousness: patient oriented x3 Resp: Effort & Inspection: able to speak in complete sentences, labored and respiratory distress Cardio: Other: Systolic murmur c/w Rate: regular rate Rhythm: regular rhythm GI: Palpation (GI): Soft to palpation Auscultation: normal bowel sounds Skin: General skin exam: no rashes or lesions noted Neuro: General: patient oriented x3 Cognition (Neuro): normal cognition Extrem: Other: 2+ edema bilaterally, worse on the left with tightness of the count, he also has erythema of kwan area, tenderness, and mild warmth Objective Data Current Medications Generic Name Dose Route Start Last Admin Trade Name Coleq PRN Reason Stop Dose Admin Acetaminophen 650 mg 09/16/20 00:48 Acetaminophen 325 Mg Tablet PO Q6H PRN Pain, Mild (Pain Scale 1-3) Amoxicillin/Clavulanate Potassium 500 mg 09/16/20 07:00 09/17/20 06:21 Amoxicillin/Potassium Clav 500 Mg Tablet PO 500 mg Q8H JERRELL Administration Aspirin 81 mg 09/16/20 09:00 09/17/20 08:24 Aspirin Enteric Coated 81 Mg Tablet. PO 81 mg DAILY JERRELL Administration Docusate Sodium 100 mg 09/16/20 00:48 Docusate Sodium 100 Mg Capsule PO DAILY PRN Constipation Furosemide 40 mg 09/16/20 09:00 09/17/20 08:24 Furosemide 40 Mg/4 Ml Vial IVPUSH 40 mg BID@0900,1800 JERRELL Administration Protocol Heparin Sodium (Porcine) 5,000 unit 09/16/20 07:00 09/17/20 06:21 Heparin Sodium,Porcine 5,000 Unit/Ml Vial SUBCUT 5,000 unit Q12H JERRELL Administration Levothyroxine Sodium 175 mcg 09/16/20 06:30 09/17/20 05:30 Levothyroxine Sodium 175 Mcg Tablet PO 175 mcg DAILY@0600 JERRELL Administration Pat Own Med ( 1 each 09/16/20 12:30 09/16/20 13:07 Eplerenone 25mg) PO 1 each DAILY JERRELL Administration Ondansetron HCl 4 mg 09/16/20 00:48 Ondansetron Hcl 4 Mg/2 Ml Vial IVPUSH Q8H PRN Nausea and Vomiting Sodium Chloride 3 ml 09/16/20 00:48 09/16/20 22:27 0.9 % Sodium Chloride Flush 3 Ml Syringe IVFLUSH 3 ml QSHIFT JERRELL Administration Trazodone HCl 25 mg 09/16/20 22:38 09/16/20 22:46 Trazodone Hcl 25 Mg Halftab PO 25 mg BEDTIME PRN Administration Insomnia Labs CBC & Chem 7: 09/16/20 07:42 09/17/20 09:26 Assessment and Plan (1) Cellulitis: Status: Acute (2) Bilateral edema of lower extremity: Status: Acute (3) Dyspnea: Status: Acute Assessment and Plan: 59-year-old male with past medical history of severe aortic stenosis who presents to the hospital with complaints of leg swelling as well as shortness of breath. # Acute diastolic CHF exacerbation with marked bilateral lower extremity edema, Orthopnea, CAMARGO in setting of severe . REsponding to IV diuretics Plan: - Continue IV Lasix for one more day and reasssess tomorrow - repeat echocardiogram pending - cardiology - venous duplex from lower extremity to rule out DVT # ?Cellulitis--I don't think the redess on leg is due to cellulitis rather venous stassi changes. He has been on Augmentin. If culture is negaive by tomorrow, I will discontinue Abx # Severe - rpt echo - cardiology consulted -he will be going to [place] at some point for TAVR # CAMARGO--likely related to CHF, was going to do CTA but since improving on Lasix will hold of at this time. # hypothyroidism - continue levothyroxine DVT ppx: heparin SubQ
[2020-09-17] MEDS: 0.9 % Sodium Chloride Flush 3 ML SYRINGE IVFLUSH ×3 (10:52→22:19)
--- NOTE | 2020-09-17 11:54 | PM.PNCARD ---
Subjective Subjective Date of Service: 09/17/20 Interval history: Feeling better. Physical Exam Vital Signs: Last Vital Signs Temp 98.6 F 09/17/20 11:41 Pulse 92 09/17/20 11:41 Resp 20 09/17/20 11:41 BP 100/57 L 09/17/20 11:41 Pulse Ox 100 09/17/20 11:41 Body Mass Index 24.5 GENERAL APPEARANCE: in no acute distress. HEENT: unremarkable. HEAD: normocephalic, atraumatic. NECK/THYROID: no carotid bruit, + JVD SKIN: no suspicious lesions, warm and dry. HEART: Ejection systolic murmur in aortic area without 2nd heart sound, regular rate and rhythm. LUNGS: clear to auscultation bilaterally. ABDOMEN: normal, bowel sounds present, soft, nontender, nondistended. EXTREMITIES: no clubbing, cyanosis. trace edema. PERIPHERAL PULSES: equal. NEUROLOGIC: nonfocal, alert and oriented. PSYCH: mood/affect full range. Results Labs and Meds Result diagrams: 09/16/20 07:42 09/17/20 09:26 Lab results: Laboratory Results - last 24 hr 09/17/20 09:26 Sodium 139 Potassium 4.1 Chloride 100 Carbon Dioxide 31 H Anion Gap 12 BUN 17 H Creatinine 0.84 Estim Creat Clear Calc 103.3 Estimated GFR > 60 Random Glucose 117 H Calcium 8.7 Progress Note: A&P Assessment and plan (1) Congestive heart failure: Status: Acute (2) Aortic stenosis, severe: Status: Acute Assessment and Plan: Pleasant 59-year-old gentleman with background of radiation from Hodgkin's lymphoma and anthracycline induced cardiomyopathy with improved. Previously he was thought to have moderate to severe aortic stenosis. Echocardiography done yesterday he showing convincing evidence of severe aortic stenosis. He was seen by Cardiology at [place] who also recommended that he should undergo TAVR. He was admitted with congestive heart failure. He is improving. He is close to discharge at this point. I think his Lasix should be increased to 60 mg in the morning and 40 in the afternoon. He will check his weight at home and closely monitor rate. He will report to us if he gained any weight and will adjust his Lasix. I will discuss the case with Dr. Wyman and Dr. Zuniga. Thank you for allowing me to participate in the care of your patient. Please feel free to contact me if you have any questions. Fall Risk Details Current Medications: Current Medications Generic Name Dose Route Start Last Admin Trade Name Freq PRN Reason Stop Dose Admin Acetaminophen 650 mg 09/16/20 00:48 Acetaminophen 325 Mg Tablet PO Q6H PRN Pain, Mild (Pain Scale 1-3) Amoxicillin/Clavulanate Potassium 500 mg 09/16/20 07:00 09/17/20 06:21 Amoxicillin/Potassium Clav 500 Mg Tablet PO 500 mg Q8H JERRELL Administration Aspirin 81 mg 09/16/20 09:00 09/17/20 08:24 Aspirin Enteric Coated 81 Mg Tablet. PO 81 mg DAILY JERRELL Administration Docusate Sodium 100 mg 09/16/20 00:48 Docusate Sodium 100 Mg Capsule PO DAILY PRN Constipation Furosemide 40 mg 09/16/20 09:00 09/17/20 08:24 Furosemide 40 Mg/4 Ml Vial IVPUSH 40 mg BID@0900,1800 JERRELL Administration Protocol Heparin Sodium (Porcine) 5,000 unit 09/16/20 07:00 09/17/20 06:21 Heparin Sodium,Porcine 5,000 Unit/Ml Vial SUBCUT 5,000 unit Q12H JERRELL Administration Levothyroxine Sodium 175 mcg 09/16/20 06:30 09/17/20 05:30 Levothyroxine Sodium 175 Mcg Tablet PO 175 mcg DAILY@0600 JERRELL Administration Pat Own Med ( 1 each 09/16/20 12:30 09/17/20 10:52 Eplerenone 25mg) PO 1 each DAILY JERRELL Administration Ondansetron HCl 4 mg 09/16/20 00:48 Ondansetron Hcl 4 Mg/2 Ml Vial IVPUSH Q8H PRN Nausea and Vomiting Sodium Chloride 3 ml 09/16/20 00:48 09/17/20 10:52 0.9 % Sodium Chloride Flush 3 Ml Syringe IVFLUSH 3 ml QSHIFT JERRELL Administration Trazodone HCl 25 mg 09/16/20 22:38 09/16/20 22:46 Trazodone Hcl 25 Mg Halftab PO 25 mg BEDTIME PRN Administration Insomnia Time Spent With Patient Time: Total time spent is greater than 50% in coordination of care (as documented) at patient's floor/unit and/or counseling patient: Time with patient: 15 - 24 minutes
--- NOTE | 2020-09-17 18:30 | PC.NURSE ---
Patient ambulated x 5 around the unit today with wheeled walker and minimal effort. Patient only needed set-up for ADL's. +1 pitting edema to lower extremities, much improvement due to prescribed Lasix BID. Patient's redness to left lower extremity minimal, on PO Augmentin. No complaints offered, no complications.
[2020-09-18 04:00] VITALS: BP 98/54; PULSE 94; RESP 18; TEMP 37.2; O2SAT 92
[2020-09-18 06:00] VITALS: BMI 24.3
[2020-09-18] MEDS: Levothyroxine Sodium 175 MCG TABLET PO (06:04)
[2020-09-18] MEDS: Amoxicillin/Potassium Clav 500 MG TABLET PO ×2 (06:04→15:59)
[2020-09-18] MEDS: Heparin Sodium,Porcine 5,000 UNIT/ML VIAL 5000 UNIT SUBCUT (06:04)
[2020-09-18 08:00] VITALS: BP 109/59; PULSE 87; RESP 20; TEMP 36.9; O2SAT 97
[2020-09-18] MEDS: Furosemide 40 MG TABLET PO (08:52)
[2020-09-18] MEDS: Milk of Magnesia 30 ML ORAL.SUSP PO (08:53)
[2020-09-18] MEDS: 0.9 % Sodium Chloride Flush 3 ML SYRINGE IVFLUSH (08:53)
[2020-09-18 09:09] LABS: Anion Gap 13 (12-20); Blood Urea Nitrogen 15 mg/dL (9-16); Calcium 8.5 mg/dL (8.4-10.2); Carbon Dioxide 31 mmol/L (22-29); Chloride 100 mmol/L (96-108); Creatinine Clr Calc Pharmacy 105.8; Estimated Glomerular Filt Rate > 60; Glucose Random 97 mg/dL (60-115); Potassium 3.9 mmol/L (3.3-5.1); Sodium 140 mmol/L (135-145)
[2020-09-18 09:16] LABS: B Type Natriuretic Peptide 116 pg/mL (<100)
[2020-09-18] MEDS: Aspirin Enteric Coated 81 MG TABLET.DR PO (09:52)
--- NOTE | 2020-09-18 10:29 | PM.DS ---
DS: Providers Provider Date of Service: 11/07/20 Date of admission: 09/15/20 23:42 Primary care physician: Yesica Kay MD Consults: 09/16/20 00:48 Consult to Cardiology Routine Consulting Provider: Jairo Valdez Reason for consultation: CHF Has provider been notified: No DS: Diagnosis Discharge Diagnosis (1) Congestive heart failure: Status: Acute (2) Aortic stenosis, severe: DS: Medications Discharge Medications Home Medications: Home Medications Medication Instructions Recorded Confirmed furosemide [Lasix] 40 mg PO BID 09/15/20 09/15/20 Previous Rx's Medication Instructions Recorded aspirin 81 mg tablet,delayed 81 mg PO DAILY #90 tab 07/09/20 release eplerenone 25 mg tablet 25 mg PO DAILY #90 tab 07/09/20 levothyroxine 175 mcg tablet 175 mcg PO DAILY 90 Days #90 tab 07/15/20 DS: Summary Hospital Course Hospital Course: Date of Service: 09/15/20 Discharge date:09/18 Chief Complaint: Shortness of breath and leg swelling This is a 59-year-old male with past medical history of aortic stenosis, heart failure, Hodgkin's lymphoma, hypothyroidism, and complete heart block status post pacemaker presents to the hospital with complaints of leg swelling as well as shortness of breath. Patient reports that he has leg swelling are chronic and he is usually used to managing the by himself but for the past few days they have worsened mostly on the left with some redness on his lower extremity on the left, and tenderness. He is also complaining of shortness of breath that is chronic but has worsened in the past few days as well as chronic orthopnea. Patient reports shortness of breath on very minimal exertion and ambulation. He has a cough that is dry, no fever or some chills, no nausea or vomiting, no chest pain, no palpitations, no dizziness headache or change in vision at this time although says that if he exerts himself little more he does usually get dizzy due to history of . He has no abdominal pain diarrhea constipation, no urinary symptoms. No weakness numbness or tingling. Patient has history of severe aortic valve stenosis, with plans for TAVR in the near future On arrival to the ED patient hemodynamically stable with vitals of temp 98.7?, heart rate of 119, respiratory rate of 18, BP of 125/60, and satting 97% on room air Labs are significant for WBC count of 10.7, hemoglobin of 9.0 his baseline, hematocrit 28.7, BNP of 76, troponin of 5.3 Chest x-ray shows hypoexpanded with small right pleural effusion and bibasilar markings Hospital course: Patient was admitted for exacerbation of heart failure due to aortic stenosis and treated with IV Lasix with good effect. Swelling in legs has signficantly gone down, his breathing better and dyspnea on exertion has markedly improved. Also was treated with Cellulitis of leg with Augmentin and will treat for a total of 5 days, the erythema is nearly all gone. Time Spent with Patient Time attestation: Total time spent providing and/or coordinating discharge services: Discharge coordination time: Greater than 30 minutes Physical Exam Vital Signs: Vital Signs: Last Vital Signs Temp 98.4 F 09/18/20 08:00 Pulse 87 09/18/20 08:00 Resp 20 09/18/20 08:00 BP 109/59 L 09/18/20 08:00 Pulse Ox 97 09/18/20 08:00 Body Mass Index 24.3 General: AO X 3, no acute distress Resp: CTA bilateral CVS: S1,S2,RRR. 1+ leg edema GI: +BS, NT, no distention Skin: No rash Neuro: motor grossly intact Psych: appropriate affect DS: Data Data Completed and Pending Labs on day of discharge: Laboratory Results - last 24 hr 09/17/20 09/18/20 09/18/20 09:26 08:42 08:42 Sodium 139 140 Potassium 4.1 3.9 Chloride 100 100 Carbon Dioxide 31 H 31 H Anion Gap 12 13 BUN 17 H 15 Creatinine 0.84 0.82 Estim Creat Clear Calc 103.3 105.8 Estimated GFR > 60 > 60 Random Glucose 117 H 97 Calcium 8.7 8.5 B-Natriuretic Peptide 116 H Discharge Plan Discharge Anticipated Discharge Date/Time: 09/18/20 10:22 Patient Disposition: Home, Self-Care Discharge Diagnosis: Heart failure exacerbation Referrals: Yesica Burden MD [Primary Care Provider] - Discharge Medications: Continued levothyroxine 175 mcg tablet 175 mcg PO DAILY 90 Days Qty: 90 RF: 1 eplerenone 25 mg tablet 25 mg PO DAILY Qty: 90 RF: 4 aspirin 81 mg tablet,delayed release (DR/EC) 81 mg PO DAILY Qty: 90 RF: 4 Discontinued furosemide [Lasix] 20 mg tablet 40 mg PO BID RF: 0 No Action heparin(porcine) in 0.45% NaCl 25,000 unit/250 mL Parenteral Solution 25,000 unit continuous IV infusion .Q0M Qty: 0 RF: 0 furosemide 40 mg Tablet 80 mg PO BID Qty: 0 RF: 0 Discharge Orders: Discharge Order (Routine); Ordered 09/18/20 Ordered By: Jerardo Marshall Diet: advance to usual diet and low salt diet Activity on Discharge: No Running or jogging Stand Alone Forms: Patient Portal Discharge page Care Plan Goals: prevent rehospitalization and and control of heart failure Health Concerns: chronic heart failure and severe aortic stenosis Plan of Treatment: Take lasix as recommended, follow up with your primary provider and heart doctor, avoid too much salt and limit water intake. weight yoursel daily, call your Doctor in you gain 2 ib in a day Assessment: Heart failure Discharge Date/Time: 09/18/20 16:25
--- NOTE | 2020-09-18 11:12 | PM.PNCARD ---
Subjective Subjective Date of Service: 09/19/20 Principal diagnosis: CHF, Interval history: Feeling better, walked without any symptoms. Review of Systems Review of Systems Breathing improved. Yes all other systems are reviewed and are negative Physical Exam Vital Signs: Last Vital Signs Temp 98.4 F 09/18/20 08:00 Pulse 87 09/18/20 08:00 Resp 20 09/18/20 08:00 BP 109/59 L 09/18/20 08:00 Pulse Ox 97 09/18/20 08:00 Body Mass Index 24.3 GENERAL APPEARANCE: in no acute distress. HEENT: unremarkable. HEAD: normocephalic, atraumatic. NECK/THYROID: no carotid bruit, + JVD SKIN: no suspicious lesions, warm and dry. HEART: Ejection systolic murmur in aortic area without 2nd heart sound, regular rate and rhythm. LUNGS: clear to auscultation bilaterally. ABDOMEN: normal, bowel sounds present, soft, nontender, nondistended. EXTREMITIES: no clubbing, cyanosis. trace edema. PERIPHERAL PULSES: equal. NEUROLOGIC: nonfocal, alert and oriented. PSYCH: mood/affect full range. Results Labs and Meds Result diagrams: 09/16/20 07:42 09/18/20 08:42 Lab results: Laboratory Results - last 24 hr 09/18/20 09/18/20 08:42 08:42 Sodium 140 Potassium 3.9 Chloride 100 Carbon Dioxide 31 H Anion Gap 13 BUN 15 Creatinine 0.82 Estim Creat Clear Calc 105.8 Estimated GFR > 60 Random Glucose 97 Calcium 8.5 B-Natriuretic Peptide 116 H Progress Note: A&P Assessment and plan (1) Congestive heart failure: Status: Acute (2) Aortic stenosis, severe: Status: Acute Assessment and Plan: 59-year-old gentleman with severe and CHF. Increasing Lasix to 60 mg PO BID. He will be discussed at TAVR meeting at [facility] for TAVR. He will monitor weight at home and call our office if his weight went up. Fall Risk Details Current Medications: Current Medications Generic Name Dose Route Start Last Admin Trade Name Freq PRN Reason Stop Dose Admin Acetaminophen 650 mg 09/16/20 00:48 Acetaminophen 325 Mg Tablet PO Q6H PRN Pain, Mild (Pain Scale 1-3) Amoxicillin/Clavulanate Potassium 500 mg 09/16/20 07:00 09/18/20 06:04 Amoxicillin/Potassium Clav 500 Mg Tablet PO 500 mg Q8H JERRELL Administration Aspirin 81 mg 09/16/20 09:00 09/18/20 09:52 Aspirin Enteric Coated 81 Mg Tablet.Dr PO 81 mg DAILY JERRELL Administration Docusate Sodium 100 mg 09/16/20 00:48 Docusate Sodium 100 Mg Capsule PO DAILY PRN Constipation Furosemide 40 mg 09/18/20 09:00 09/18/20 08:52 Furosemide 40 Mg Tablet PO 40 mg BID@0900,1800 JERRELL Administration Protocol Heparin Sodium (Porcine) 5,000 unit 09/16/20 07:00 09/18/20 06:04 Heparin Sodium,Porcine 5,000 Unit/Ml Vial SUBCUT 5,000 unit Q12H JERRELL Administration Levothyroxine Sodium 175 mcg 09/16/20 06:30 09/18/20 06:04 Levothyroxine Sodium 175 Mcg Tablet PO 175 mcg DAILY@0600 JERRELL Administration Magnesium Hydroxide 30 ml 09/18/20 08:19 09/18/20 08:53 Milk Of Magnesia 30 Ml Oral.Susp PO 30 ml DAILY PRN Administration Constipation Pat Own Med ( 1 each 09/16/20 12:30 09/18/20 08:53 Eplerenone 25mg) PO 1 each DAILY JERRELL Administration Ondansetron HCl 4 mg 09/16/20 00:48 Ondansetron Hcl 4 Mg/2 Ml Vial IVPUSH Q8H PRN Nausea and Vomiting Polyethylene Glycol 17 gm 09/18/20 08:19 Polyethylene Glycol 3350 17 Gm Powd.Pack PO DAILY PRN Constipation Sodium Chloride 3 ml 09/16/20 00:48 09/18/20 08:53 0.9 % Sodium Chloride Flush 3 Ml Syringe IVFLUSH 3 ml QSHIFT JERRELL Administration Trazodone HCl 25 mg 09/16/20 22:38 09/16/20 22:46 Trazodone Hcl 25 Mg Halftab PO 25 mg BEDTIME PRN Administration Insomnia Time Spent With Patient Time: Total time spent is greater than 50% in coordination of care (as documented) at patient's floor/unit and/or counseling patient: Time with patient: less than 15 minutes
[2020-09-18 12:00] VITALS: BP 93/53; PULSE 90; RESP 20; TEMP 37.2; O2SAT 100
--- NOTE | 2020-09-18 15:25 | MHC.CM.PN ---
Pt will be discharged home today [facility] no services. Pt will self arrange transport
== END 2020-09-18 16:25 | disposition home or self-care (01) | DRG 194 ==
LOC: HO.ED 23:55 → HO.EDOVER 09-16 00:03 → HO.IMC 09-16 05:27
PROVIDERS: Admitting Provider Internal Medicine; Emergency Provider Emergency Medicine; PCP Internal Medicine; Visit Provider Internal Medicine
DX: I50.33 Acute on chronic diastolic (congestive) heart failure (principal); I42.8 Other cardiomyopathies; L03.116 Cellulitis of left lower limb; Z95.2 Presence of prosthetic heart valve; E03.9 Hypothyroidism, unspecified; I87.322 Chronic venous hypertension (idiopathic) with inflammation of left lower extremity; I35.0 Nonrheumatic aortic (valve) stenosis; Z20.822 Contact with and (suspected) exposure to COVID-19; Z95.0 Presence of cardiac pacemaker; Z79.82 Long term (current) use of aspirin; Z79.890 Hormone replacement therapy; Z79.899 Other long term (current) drug therapy
CPT/HCPCS: 36415; 71045; 80048; 80053; 82607; 82728; 82746; 83880; 84484; 85025; 85379; 87635; 93005; 93306; 93971; 96374; 99285; J1940

== ENCOUNTER 2020-10-25 10:58 | Inpatient (IN) | payer OTHER, SELFPAY ==
[2020-10-25] VITALS (8 sets, daily range): BP systolic 91–115; BP diastolic 46–63; PULSE 82–96; RESP 11–20; TEMP 36.2–37.5; O2SAT 95–100; BMI 25.4; BMI 23.6; BMI 23.3
--- NOTE | ~2020-10-25 | CT_ITS ---
EXAMINATION: CT ANGIOGRAM OF THE CHEST WITH AND WITHOUT CONTRAST (CT PULMONARY ANGIOGRAM FOR PE) CLINICAL INFORMATION: Reason for Exam pt c sob LE edema ? PE COMPARISON: 06/19/2020 TECHNIQUE: Prior to contrast administration, noncontrast localization images were obtained. Subsequently, multidetector volumetric imaging was performed from the thoracic inlet to below the diaphragms following the administration of 80 mL Omnipaque 350 intravenous contrast. No contrast reaction reported Sagittal, coronal, and MIP oblique sagittal reformatted images were obtained on the CT workstation, uploaded to PACS, and reviewed. This CT examination was performed using dose optimization techniques as appropriate, variously including the following: *Automated exposure control *Adjustment of mA and/or kV according to patient size (this includes techniques or standardized protocols for targeted exams where dose is matched to indication/reason for exam; i.e. extremities or head) *Use of iterative reconstruction technique Total exam dose-length product 377 mGy-cm FINDINGS: QUALITY OF STUDY/CONTRAST BOLUS: Fair PULMONARY ARTERIES: Subacute pulmonary arteries are noted within the segmental branches of the right upper lobe left upper lobe and left lower lobe pulmonary arteries. Central pulmonary arteries patent. THORACIC AORTA: No aneurysm or dissection. LUNG: Scattered groundglass opacities which can be seen with atypical infection versus pulmonary edema. Compressive atelectasis right lower lobe. PLEURA: Moderate layering right-sided pleural effusion. Pacemaker in place. MEDIASTINUM: Normal heart size. No pericardial effusion. No hilar or mediastinal lymphadenopathy. No evidence of septal bowing or right heart strain. CHEST WALL/AXILLA: No axillary or internal mammary lymphadenopathy. OSSEOUS STRUCTURES: No acute or suspicious osseous abnormality. Nonspecific but specific sclerotic focus vertebral bodies upper dorsal and visualized lower cervical spine. UPPER ABDOMEN: Unremarkable. No reflux of contrast into the hepatic veins to suggest elevated right heart pressures. CT/CT angio chest PE protocol IMPRESSION: Acute pulmonary overlies above. Nonspecific sclerotic lesions within the vertebral bodies as above. Consider MRI or bone scan for further assessment. VTE: Positive This critical result was discussed with IRIS Tran at 4:35 PM on 10/25/2020 and it was ascertained that the content and urgency of the report was understood at the time of direct communication.
--- NOTE | ~2020-10-25 | XR_ITS ---
EXAMINATION: XR CHEST CLINICAL INFORMATION: Shortness of breath with lower extremity edema COMPARISON: 09/15/2020 and prior TECHNIQUE: AP and lateral upright views. 2 frontal radiograph. FINDINGS: Left 3-lead pacemaker unchanged. Stable heart and mediastinal contours. Stable prominence of the central pulmonary fracture. No overt pulmonary edema. Persistent small right pleural effusion. This is a chronic finding present on chest x-ray for more than a year. Unilateral effusions are classically exudative in etiology, however given the current clinical picture this may be a consequence of elevated right heart pressures. Correlate with prior diagnostic thoracenteses. Narrowing of the intrathoracic trachea again noted. This raises the possibility of COPD. XR/XR chest 2V IMPRESSION: There is a chronic waxing and waning right pleural effusion. This may be a consequence of right heart failure. Correlate with echocardiography. Saber-sheath trachea. Question COPD.
--- NOTE | ~2020-10-25 | US_ITS ---
EXAMINATION: US VENOUS ULTRASOUND WITH DOPPLER LOWER EXTREMITY, BILATERAL CLINICAL INFORMATION: Bilateral lower extremity edema. Shortness of breath. COMPARISON: Similar examination of 09/16/20. TECHNIQUE: Ultrasound of the deep veins is performed from the hip to the calf with compression sonography and color and pulse Doppler assessment. Spectral analysis with color-flow imaging is performed. FINDINGS: RIGHT: There is normal venous compression and respiratory variation and augmented flow. The visualized common femoral vein, superficial femoral vein, profunda femoral vein, popliteal vein, and the trifurcation region shows no evidence of deep venous thrombosis. There is no significant popliteal fossa cyst. LEFT: There is normal venous compression and respiratory variation and augmented flow. The visualized common femoral vein, superficial femoral vein, profunda femoral vein, popliteal vein, and the trifurcation region shows no evidence of deep venous thrombosis. There is no significant popliteal fossa cyst. US/US venous duplex LE BI IMPRESSION: No DVT demonstrated in the bilateral lower extremities.
--- NOTE | 2020-10-25 11:03 | ECG_ITS ---
Test Reason : SOB Blood Pressure : / mmHG Vent. Rate : 097 BPM Atrial Rate : 097 BPM P-R Int : 158 ms QRS Dur : 152 ms QT Int : 428 ms P-R-T Axes : 091 243 056 degrees QTc Int : 543 ms Atrial-sensed ventricular-paced rhythm Abnormal ECG When compared with ECG of 15-SEP-2020 23:37, Vent. rate has increased BY 4 BPM Referred By: Lizz Stein Electronically Signed By:Jairo Valdez
[2020-10-25 11:35] LABS: MANUAL DIFF FLAG NO
[2020-10-25 11:37] LABS: Basophils Absolute Auto 0.1 X10*3/uL (0.0-0.2); Basophils Percent Auto 0.9 % (0-2); Eosinophils Absolute Auto 0.1 X10*3/uL (0.0-0.4); Eosinophils Percent Auto 0.9 % (0-4); Hematocrit 27.1 % (42-52); Hemoglobin 8.1 g/dl (14.0-18.0); Imm Gran Abs Auto 0.04 X10*3/uL (0.00-0.03); Imm Gran Pct Auto 0.4 % (0.0-0.4); Lymphocytes Absolute Auto 0.7 X10*3/uL (1.2-4.9); Lymphocytes Percent Auto 7.7 % (20-40); Mean Corpuscular HGB Conc 29.9 g/dl (31.0-36.0); Mean Corpuscular Hemoglobin 22.2 pg (27.0-33.0); Mean Corpuscular Volume 74.2 fL (80-98); Mean Platelet Volume 9.6 fL (9.4-12.4); Monocytes Absolute Auto 1.3 X10*3/uL (0.1-1.2); Monocytes Percent Auto 13.3 % (2-11); NRBC Pct Auto 0.3 /100WBC (0.0-0.2); Neutrophils Absolute Auto 7.4 X10*3/uL (2.0-8.3); Neutrophils Percent Auto 76.8 % (45-73); Platelet Count 453 X10*3/uL (160-400); Red Blood Count 3.65 X10*6/uL (4.60-5.80); Red Cell Distribution Width 18.6 % (11.0-16.0); White Blood Count 9.6 X10*3/uL (4.8-10.8)
[2020-10-25 11:43] LABS: INTERNATIONAL NORM RATIO 1.4 (0.9-1.1); Prothrombin Time 16.2 SEC (10.8-13.0)
[2020-10-25] MEDS: Furosemide 20 MG/2 ML VIAL IVPUSH ×2 (11:51)
[2020-10-25 12:01] LABS: Alanine Aminotransferase 9 U/L (0-40); Albumin Level 3.8 g/dL (3.5-5.0); Alkaline Phosphatase 65 U/L (39-117); Anion Gap 15 (12-20); Aspartate Amino Transferase 15 U/L (5-37); Bilirubin Total 0.8 mg/dL (0.0-1.0); Blood Urea Nitrogen 23 mg/dL (9-16); Calcium 8.8 mg/dL (8.4-10.2); Carbon Dioxide 29 mmol/L (22-29); Chloride 98 mmol/L (96-108); Creatinine Clr Calc Pharmacy 95.3; Estimated Glomerular Filt Rate > 60; Glucose Random 87 mg/dL (60-115); Potassium 3.8 mmol/L (3.3-5.1); Sodium 138 mmol/L (135-145); Total Protein 6.7 g/dL (6.5-8.0)
[2020-10-25 12:08] LABS: B Type Natriuretic Peptide 127 pg/mL (<100)
[2020-10-25 12:17] LABS: Influenza A PCR NEGATIVE (Negative); Influenza B PCR NEGATIVE (Negative); Resp Syncy Virus RNA Qual PCR NEGATIVE (Negative); SARS COV2 PCR INHOUSE NEGATIVE (Negative)
--- NOTE | 2020-10-25 12:21 | ED_ITS ---
HPI - SOB/Dyspnea General Chief Complaint: Dyspnea Stated Complaint: SOB Time Seen by Provider: 10/25/20 11:01 Source: patient Mode of arrival: ambulatory Limitations: no limitations History of Present Illness HPI Narrative: 59-year-old male with a past medical history of severe aortic stenosis, CHF currently on 60mg of Lasix taking daily, Hodgkin's lymphoma, hypothyroidism, complete heart block status post pacemaker currently on aspirin being followed by cardiology Dr. Valdez who scheduled the patient for TAVR on and was awaiting a chest x-ray tomorrow to assess for potential thoracentesis before procedure presenting to the ED with complaints of worsening shortness of breath, dry cough, dyspnea on exertion and orthopnea with associated bilateral lower extremity edema and calf tenderness for the past 5 days worse today. Denies any fevers, chills, headaches, dizziness, lightheadedness, changes in vision, sore throat, nausea/vomiting, chest pain, palpitations, abdominal pain, back pain, dysuria, hematuria, black or bloody stools or any other symptoms complaints or concerns at this time. Related Data Previous Rx's Medication Instructions Recorded aspirin 81 mg tablet,delayed 81 mg PO DAILY #90 tab 07/09/20 release eplerenone 25 mg tablet 25 mg PO DAILY #90 tab 07/09/20 levothyroxine 175 mcg tablet 175 mcg PO DAILY 90 Days #90 tab 07/15/20 furosemide 20 mg tablet 60 mg PO BID 90 Days #540 tab 09/23/20 Allergies Allergy/AdvReac Type Severity Reaction Status Date / Time No Known Allergies Allergy Verified 07/20/20 11:06 [No Known Allergies*] Review of Systems Review of Systems: Constitutional : No Weight loss, No Fever, No Chills, No Night Sweats, No Fatigue, No Malaise ENT/Mouth : No Hearing loss, No Ear Pain, No Nasal Congestion, No Sinus Pain, No Hoarseness, No sore throat, No Rhinorrhea, No Swallowing Difficulty Eyes: No Eye Pain, No Swelling, No Redness, No Foreign Body, No Discharge, No Vision Changes Cardiovascular : + SOB, + Dyspnea on Exertion, + Orthopnea, + Edema, No Palpitations, No Chest Pain Respiratory : + Cough, + Dyspnea, No Sputum, No Wheezing, No Smoke Exposure Gastrointestinal : No Nausea, No Vomiting, No Diarrhea, No Constipation, No abdominal Pain, No Hematochezia, No Melena Genitourinary : no irregular bleeding, No Dysuria, No Urinary Frequency, No Hematuria, No Urinary Incontinence, No Urgency, No Flank Pain, No Urinary Flow Changes, No Hesitancy Musculoskeletal : + Joint swelling, No joint pain, No Myalgias Skin : No Skin Lesions, No rash Neuro : No Weakness, No Numbness, No Paresthesias, No Loss of Consciousness, No Dizziness, No Headache Psych : No Anxiety/Panic, No Depression, No SI/HI/AH/VH, No Social Issues, Heme/Lymph: No Bruising, No Bleeding,No Lymphadenopathy Endocrine : No Polyuria, No Polydipsia, No Temperature Intolerance Yes all other systems are reviewed and are negative [facility] Past Medical History Attestation statement: The following information was validated with the patient. Medical History Aortic stenosis Aortic stenosis, severe Complete heart block HFrEF (heart failure with reduced ejection fraction) Hodgkins lymphoma Hypocalcemia Hypotension (arterial) Hypothyroid LBBB (left bundle branch block) NICM (nonischemic cardiomyopathy) Non-rheumatic aortic stenosis Pacemaker Surgical History H/O splenectomy History of appendectomy History of cardiac pacemaker Family History Family History Father No problems noted. Mother No problems noted. Social History Social History Household Members: Spouse and Children Housing: House Alcohol intake: current Alcohol intake frequency: a few times a month Smoking Status: Never smoker Advance Directives: No Advance Directives Information Provided: Yes service: Yes Current occupational status: employed Physical Exam Vital Signs: Vital Signs: Last Vital Signs Temp 99.5 F 10/25/20 10:59 Pulse 96 10/25/20 10:59 Resp 20 10/25/20 10:59 BP 115/63 10/25/20 10:59 Pulse Ox 100 10/25/20 10:59 Body Mass Index 25.4 Vital signs have been reviewed as normal and appeared to be correct. Blood pressure normal. Heart rate normal. Respiration rate normal. Temperature normal. Oxygen saturation normal. Appearance: Alert. Oriented X3. No acute distress. Head: Normal external exam. Normocephalic. Atraumatic. Able to rotate head bilaterally. Eyes: PERRLA. EOMI. No nystagmus noted. Conjunctiva and sclera normal. Eyelids normal. Corneal reflex normal. ENT: EAC normal. TM's Normal. Hearing normal. Pharynx normal. Uvula midline. tongue midline. Moist mucous membranes. No trismus noted. No drooling noted. No muffled voice noted. No nystagmus noted. Neck: Normal inspection. Neck supple. FROM. No adenopathy. Trachea midline. Thyroid Normal. No meningeal signs. No neck mass noted. CVS: Normal heart rate and rhythm. Heart sound normal. No murmurs noted. Pulses normal throughout. Respiratory: No respiratory distress. Painless inspiration. Breath sounds normal. No wheezes/rales/rhonchi noted. Chest nontender. No accessory muscle usage noted or decreased air movement noted. Abdomen: Soft and nontender. Bowel sounds normal in all 4 quadrants. No distention noted. No organomegaly noted. No visible injury noted. Back: No CVA tenderness. Full range of motion noted. Skin: Skin warm and dry. Normal skin color. Normal skin turgor. No rashes/lesions/lacerations noted. Extremities: Patient with bilateral +2 pitting edema. With bilateral calf tenderness. Otherwise Extremities exhibit normal range of motion and nontender. Able to shrug shoulders bilaterally and keep up against resistance. Neuro: Oriented X 3. No motor deficit. No sensory deficit. Reflexes normal. Moving all extremities. No focal motor deficits. Cranial nerves II-XI intact bilaterally. Facial strength normal. Normal cognition. Speech normal. Gait normal. Strength 5/5 throughout. No pronator drift. No tremor noted. No fasciculations noted. No rigidity noted. Muscle tone normal throughout. No asterixis noted. Course Course Course Narrative: 12:30pm - labs reviewed and patient with anemia when compared to 09/16/2020 and has dropped patient had an H&H on 09/17/2019 03/29/2021 9.2 today it is 8/27.1; therefore will obtain a stool occult - BUN 23 - BNP 127 - all other labs are within normal limits. - UA within normal limits no evidence of UTI. - COVID/RSV/flu negative. - EKG is atrial sensed ventricular paced rhythm similar compared to prior EKG no acute ischemic changes noted. - chest x-ray revealed chronic waxing and waning right pleural effusion This may be a consequence of right heart failure. Correlate with echocardiography. Saber- sheath trachea. Question COPD. - therefore CTA ordered at this time. - pending CTA of chest for PE and b/l venous duplex ultrasound of lower extremities and stool occult Reevaluation(s) Reevaluation #1: - patient had a sudden onset of bilateral lower extremity muscle spasms where you can actually see the muscle spasming on exam therefore he was given 4 mg of morphine and no symptomatic relief then was given a mg of Dilaudid, a mg of Ativan and 10 mg of p.o. Valium and patient is now resting at this time. - will attempt a stool occult when the patient is more awake. Still awaiting CT of chest for PE and bilateral venous duplex ultrasound. Time: 13:00 Reevaluation #2: - stool occult performed at this time and patient positive for stool occult. He reports that over the past few months he has been having some bleeding from his hemorrhoids although on exam he does not have any hemorrhoids. I explained to him that this could be the reason why he is short of breath and having some anemia since April of 2020. He reports he did not mention it due to he does not have petros blood in the toilet is only when he wipes intermittently. - still awaiting CTA of chest for PE and bilateral venous duplex ultrasound. Time: 15:09 Reevaluation #3: - CTA positive for bilateral subacute pulmonary embolisms - therefore consulted with the coder operator Dr. Rodarte who recommended ordering 1 unit of red blood cells therefore put a type and screen at this time and placing the patient on heparin which is reversible patient was updated at this time he understands and agrees with the plan. Will plan to admit. Time: 16:47 MDM - SOB/Dyspnea MDM Narrative Medical decision making narrative: 11am - 59-year-old male with a past medical history of severe aortic stenosis, CHF currently on Lasix, Hodgkin lymphoma, hypothyroidism, complete heart block with pacemaker in place currently on aspirin awaiting for TAVR procedure on presenting to the ED with complaints of worsening shortness of breath, dry cough, dyspnea on exertion, orthopnea with bilateral lower extremity edema and calf tenderness for the past 5 days worse today. - on exam patient is alert oriented x3. Not in any acute distress. Vital signs are stable within normal limits. No focal neuro deficits noted. Lungs clear to auscultation. CV RRR. Abdomen is soft and nontender. Bilateral +2 pitting edema to lower extremity with calf tenderness bilaterally. +2 distal pedal pulses bilaterally. - Plan: Labs, chest x-ray, EKG, COVID/RSV/flu swab, UA, bilateral venous duplex ultrasound. I consulted with coder operator Dr. Valdez who recommended giving the patient 40 mg of Lasix while here in the emergency department and if his BNP and chest x-ray revealed CHF he recommended increasing the patient's Lasix from 60 mg to 80 mg b.i.d. if he goes home. Will give the patient 40 mg of IV Lasix at this time. then Will re-evaluate. Medical Records Attestation: I reviewed the patient's medical records. Lab Data Attestation: I reviewed the patient's lab results. Result diagrams: 10/25/20 11:29 10/25/20 11:29 Labs: Lab Results 10/25/20 10/25/20 10/25/20 Range/Units 11:29 11:29 11:29 WBC 9.6 (4.8-10.8) X10*3/uL RBC 3.65 L (4.60-5.80) X10*6/uL Hgb 8.1 L (14.0-18.0) g/dl Hct 27.1 L (42-52) % MCV 74.2 L (80-98) fL MCH 22.2 L (27.0-33.0) pg MCHC 29.9 L (31.0-36.0) g/dl RDW 18.6 H (11.0-16.0) % Plt Count 453 H (160-400) X10*3/uL MPV 9.6 (9.4-12.4) fL Immature Gran % (Auto) 0.4 (0.0-0.4) % Neut % (Auto) 76.8 H (45-73) % Lymph % (Auto) 7.7 L (20-40) % Jay % (Auto) 13.3 H (2-11) % Eos % (Auto) 0.9 (0-4) % Baso % (Auto) 0.9 (0-2) % Lymph # (Auto) 0.7 L (1.2-4.9) X10*3/uL Jay # (Auto) 1.3 H (0.1-1.2) X10*3/uL Eos # (Auto) 0.1 (0.0-0.4) X10*3/uL Baso # (Auto) 0.1 (0.0-0.2) X10*3/uL Abs Immat Gran (auto) 0.04 H (0.00-0.03) X10*3/uL Absolute Neuts (auto) 7.4 (2.0-8.3) X10*3/uL Absolute Nucleated RBC 0.030 H (0.0-0.012) X10*3/uL Nucleated RBC % (auto) 0.3 H (0.0-0.2) /100WBC PT 16.2 H (10.8-13.0) SEC INR 1.4 H (0.9-1.1) APTT 46.0 H (24.1-38.0) SEC Sodium 138 (135-145) mmol/L Potassium 3.8 (3.3-5.1) mmol/L Chloride 98 (96-108) mmol/L Carbon Dioxide 29 (22-29) mmol/L Anion Gap 15 (12-20) BUN 23 H D (9-16) mg/dL Creatinine 0.91 (0.5-1.4) mg/dL Estim Creat Clear Calc 95.3 Estimated GFR > 60 Random Glucose 87 (60-115) mg/dL Calcium 8.8 (8.4-10.2) mg/dL Magnesium 2.0 (1.6-2.6) mg/dL Total Bilirubin 0.8 (0.0-1.0) mg/dL AST 15 (5-37) U/L ALT 9 (0-40) U/L Alkaline Phosphatase 65 (39-117) U/L Troponin I High Sens (<3.5-35.0) ng/L B-Natriuretic Peptide (<100) pg/mL Total Protein 6.7 (6.5-8.0) g/dL Albumin 3.8 (3.5-5.0) g/dL Urine Color Urine Appearance Urine pH (5.0-8.0) Ur Specific [place] (1.005-1.025) Urine Protein (NEG-TRACE) MG/DL Urine Glucose (UA) (NEG) MG/DL Urine Ketones (NEG) MG/DL Urine Blood (NEG) Urine Nitrite (NEG) Ur Leukocyte Esterase (NEG) Stool Occult Blood (NEGATIVE) Coronavirus (PCR) (Negative) Influenza Type A (PCR) (Negative) Influenza Type B (PCR) (Negative) RSV RNA Qual (PCR) (Negative) 10/25/20 10/25/20 10/25/20 Range/Units 11:29 11:29 13:09 WBC (4.8-10.8) X10*3/uL RBC (4.60-5.80) X10*6/uL Hgb (14.0-18.0) g/dl Hct (42-52) % MCV (80-98) fL MCH (27.0-33.0) pg MCHC (31.0-36.0) g/dl RDW (11.0-16.0) % Plt Count (160-400) X10*3/uL MPV (9.4-12.4) fL Immature Gran % (Auto) (0.0-0.4) % Neut % (Auto) (45-73) % Lymph % (Auto) (20-40) % Jay % (Auto) (2-11) % Eos % (Auto) (0-4) % Baso % (Auto) (0-2) % Lymph # (Auto) (1.2-4.9) X10*3/uL Jay # (Auto) (0.1-1.2) X10*3/uL Eos # (Auto) (0.0-0.4) X10*3/uL Baso # (Auto) (0.0-0.2) X10*3/uL Abs Immat Gran (auto) (0.00-0.03) X10*3/uL Absolute Neuts (auto) (2.0-8.3) X10*3/uL Absolute Nucleated RBC (0.0-0.012) X10*3/uL Nucleated RBC % (auto) (0.0-0.2) /100WBC PT (10.8-13.0) SEC INR (0.9-1.1) APTT (24.1-38.0) SEC Sodium (135-145) mmol/L Potassium (3.3-5.1) mmol/L Chloride (96-108) mmol/L Carbon Dioxide (22-29) mmol/L Anion Gap (12-20) BUN (9-16) mg/dL Creatinine (0.5-1.4) mg/dL Estim Creat Clear Calc Estimated GFR Random Glucose (60-115) mg/dL Calcium (8.4-10.2) mg/dL Magnesium (1.6-2.6) mg/dL Total Bilirubin (0.0-1.0) mg/dL AST (5-37) U/L ALT (0-40) U/L Alkaline Phosphatase (39-117) U/L Troponin I High Sens 5.0 (<3.5-35.0) ng/L B-Natriuretic Peptide 127 H (<100) pg/mL Total Protein (6.5-8.0) g/dL Albumin (3.5-5.0) g/dL Urine Color YELLOW Urine Appearance CLEAR Urine pH 5.5 (5.0-8.0) Ur Specific [place] 1.010 (1.005-1.025) Urine Protein NEG (NEG-TRACE) MG/DL Urine Glucose (UA) NEG (NEG) MG/DL Urine Ketones NEG (NEG) MG/DL Urine Blood NEG (NEG) Urine Nitrite NEG (NEG) Ur Leukocyte Esterase NEG (NEG) Stool Occult Blood (NEGATIVE) Coronavirus (PCR) NEGATIVE (Negative) Influenza Type A (PCR) NEGATIVE (Negative) Influenza Type B (PCR) NEGATIVE (Negative) RSV RNA Qual (PCR) NEGATIVE (Negative) 10/25/20 Range/Units 15:06 WBC (4.8-10.8) X10*3/uL RBC (4.60-5.80) X10*6/uL Hgb (14.0-18.0) g/dl Hct (42-52) % MCV (80-98) fL MCH (27.0-33.0) pg MCHC (31.0-36.0) g/dl RDW (11.0-16.0) % Plt Count (160-400) X10*3/uL MPV (9.4-12.4) fL Immature Gran % (Auto) (0.0-0.4) % Neut % (Auto) (45-73) % Lymph % (Auto) (20-40) % Jay % (Auto) (2-11) % Eos % (Auto) (0-4) % Baso % (Auto) (0-2) % Lymph # (Auto) (1.2-4.9) X10*3/uL Jay # (Auto) (0.1-1.2) X10*3/uL Eos # (Auto) (0.0-0.4) X10*3/uL Baso # (Auto) (0.0-0.2) X10*3/uL Abs Immat Gran (auto) (0.00-0.03) X10*3/uL Absolute Neuts (auto) (2.0-8.3) X10*3/uL Absolute Nucleated RBC (0.0-0.012) X10*3/uL Nucleated RBC % (auto) (0.0-0.2) /100WBC PT (10.8-13.0) SEC INR (0.9-1.1) APTT (24.1-38.0) SEC Sodium (135-145) mmol/L Potassium (3.3-5.1) mmol/L Chloride (96-108) mmol/L Carbon Dioxide (22-29) mmol/L Anion Gap (12-20) BUN (9-16) mg/dL Creatinine (0.5-1.4) mg/dL Estim Creat Clear Calc Estimated GFR Random Glucose (60-115) mg/dL Calcium (8.4-10.2) mg/dL Magnesium (1.6-2.6) mg/dL Total Bilirubin (0.0-1.0) mg/dL AST (5-37) U/L ALT (0-40) U/L Alkaline Phosphatase (39-117) U/L Troponin I High Sens (<3.5-35.0) ng/L B-Natriuretic Peptide (<100) pg/mL Total Protein (6.5-8.0) g/dL Albumin (3.5-5.0) g/dL Urine Color Urine Appearance Urine pH (5.0-8.0) Ur Specific [place] (1.005-1.025) Urine Protein (NEG-TRACE) MG/DL Urine Glucose (UA) (NEG) MG/DL Urine Ketones (NEG) MG/DL Urine Blood (NEG) Urine Nitrite (NEG) Ur Leukocyte Esterase (NEG) Stool Occult Blood POSITIVE (NEGATIVE) Coronavirus (PCR) (Negative) Influenza Type A (PCR) (Negative) Influenza Type B (PCR) (Negative) RSV RNA Qual (PCR) (Negative) Imaging Data Chest x-ray: Attestation: I personally reviewed and interpreted this imaging study as follows: Radiologist's impression: FINDINGS: Left 3-lead pacemaker unchanged. Stable heart and mediastinal contours. Stable prominence of the central pulmonary fracture. No overt pulmonary edema. Persistent small right pleural effusion. This is a chronic finding present on chest x-ray for more than a year. Unilateral effusions are classically exudative in etiology, however given the current clinical picture this may be a consequence of elevated right heart pressures. Correlate with prior diagnostic thoracenteses. Narrowing of the intrathoracic trachea again noted. This raises the possibility of COPD. XR/XR chest 2V IMPRESSION: There is a chronic waxing and waning right pleural effusion. This may be a consequence of right heart failure. Correlate with echocardiography. Saber-sheath trachea. Question COPD. Bilateral lower extremity venous duplex ultrasound for DVT: Attestation: I personally reviewed and interpreted this imaging study as follows: Radiologist's impression: FINDINGS: RIGHT: There is normal venous compression and respiratory variation and augmented flow. The visualized common femoral vein, superficial femoral vein, profunda femoral vein, popliteal vein, and the trifurcation region shows no evidence of deep venous thrombosis. There is no significant popliteal fossa cyst. LEFT: There is normal venous compression and respiratory variation and augmented flow. The visualized common femoral vein, superficial femoral vein, profunda femoral vein, popliteal vein, and the trifurcation region shows no evidence of deep venous thrombosis. There is no significant popliteal fossa cyst. US/US venous duplex LE BI IMPRESSION: No DVT demonstrated in the bilateral lower extremities. CTA of chest for PE: Attestation: I personally reviewed and interpreted this imaging study as follows: Radiologist's impression: FINDINGS: QUALITY OF STUDY/CONTRAST BOLUS: Fair PULMONARY ARTERIES: Subacute pulmonary arteries are noted within the segmental branches of the right upper lobe left upper lobe and left lower lobe pulmonary arteries. Central pulmonary arteries patent. THORACIC AORTA: No aneurysm or dissection. LUNG: Scattered groundglass opacities which can be seen with atypical infection versus pulmonary edema. Compressive atelectasis right lower lobe. PLEURA: Moderate layering right-sided pleural effusion. Pacemaker in place. MEDIASTINUM: Normal heart size. No pericardial effusion. No hilar or mediastinal lymphadenopathy. No evidence of septal bowing or right heart strain. CHEST WALL/AXILLA: No axillary or internal mammary lymphadenopathy. OSSEOUS STRUCTURES: No acute or suspicious osseous abnormality. Nonspecific but specific sclerotic focus vertebral bodies upper dorsal and visualized lower cervical spine. UPPER ABDOMEN: Unremarkable. No reflux of contrast into the hepatic veins to suggest elevated right heart pressures. CT/CT angio chest PE protocol IMPRESSION: Acute pulmonary overlies above. Nonspecific sclerotic lesions within the vertebral bodies as above. Consider MRI or bone scan for further assessment. VTE: Positive This critical result was discussed with IRIS Tran at 4:35 PM on 10/25/2020 and it was ascertained that the content and urgency of the report was understood at the time of direct communication. ECG Data Attestation: I personally reviewed and interpreted this ECG as follows: ECG interpretation date: 10/25/20 ECG interpretation time: 11:02 Interpretation: Atrial sensed ventricular paced rhythm with ventricular rate of 97 no acute ischemic changes noted and similar when compared to prior EKG on 09/15/2020. Critical Care Time Critical Care Time Critical Care Time: Yes Total Critical Care Time: 60 Attestation: I personally attest to this time spent taking care of the patient Discharge Plan Discharge Clinical Impression: Fecal occult blood test positive, Shortness of breath, Bilateral pulmonary embolism Patient Disposition: Admitted As Inpatient
[2020-10-25] MEDS: Morphine Sulfate 4 MG/ML CARTRIDGE IVPUSH (12:54)
--- NOTE | 2020-10-25 13:03 | PC.NURSE ---
pt with bilateral leg cramps will be going to [facility]. pain medication given
[2020-10-25 13:18] LABS: Glucose Urine UA NEG (NEG); Leukocyte Esterase Urine NEG (NEG); Nitrite Urine NEG (NEG); PH 5.5 (5.0-8.0); Urine Blood NEG (NEG); Urine Ketones NEG (NEG); Urine Protein NEG (NEG-TRACE)
[2020-10-25 13:20] LABS: Appearance Urine CLEAR; Color Urine YELLOW
[2020-10-25] MEDS: diazePAM 5 MG TABLET 10 MG PO (13:28)
[2020-10-25] MEDS: HYDROmorphone HCl 1 MG/ML SYRINGE IVPUSH (13:28)
[2020-10-25] MEDS: LORazepam 2 MG/ML VIAL 1 MG IVPUSH (13:28)
[2020-10-25 15:15] LABS: OBS Int Ctl Valid YES; OBS1 POSITIVE (NEGATIVE)
[2020-10-25] MEDS: iohexoL 350 MG/ML 100 ML INFUS..BTL IV (15:32)
--- NOTE | 2020-10-25 17:06 | PM.EVENT ---
Event Note Date of Service: 10/25/20 Event Note: Patient seen and examined independently and was present during martínez portion of E/M service. Agree with midlevel's history, physical, assessment, and plan. 59M presented with sob found to have pulmonary embolism pulmonary embolism with anemia and positive stool occult blood heparin infusion monitor cbc transfuse prbc cardio eval
--- NOTE | 2020-10-25 17:44 | PM.IMHP ---
History of Present Illness Date of Service: 10/25/20 <Becky Shultz NP - Last Filed: 10/25/20 18:33> Chief Complaint: shortness of breath <Becky Shultz NP - Last Filed: 10/25/20 18:33> 59-year-old man presenting with increased shortness of breath. 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 He had shortness of breath, dry cough, dip dyspnea on exertion and orthopnea with lower extremity edema. He reports that this has been worsening over the last 5 days. He denies chest pain, nausea, vomiting, diarrhea, fever, chills, recent illness. He has a history of ischemic cardiomyopathy secondary to radiation from Hodgkin's lymphoma. He had a a biventricular pacemaker and ICD placed in 2013 after an episode of syncope and was found to have systolic heart failure. His heart failure did improve over time. He was also found to have aortic stenosis and actually severe and was scheduled to have trans aortic valve replacement this week. BNP 127, BUN 23, hematocrit 27.1, stool occult positive and actually patient reports some hemorrhoidal bleeding over the last several months. He denies having any petros blood but sometimes as red blood when he wipes occasionally. Because of the shortness of breath chest CTA was also obtained which showed bilateral subacute pulmonary embolism. Therefore due to his anemia he had 1 unit of packed red blood cells ordered and he was started on IV heparin drip. Will hold off on diuresis as patient is presenting hypotensive at this time. He will be admitted for further management and treatment of new finding of pulmonary embolus and anemia. <Becky Shultz NP - Last Filed: 10/25/20 18:33> Review of Systems Review of Systems: Denies any recent fever chills or decrease in appetite respiratory See HPI cardiovascular See HPI gastrointestinal denies any dysphagia abdominal pain nausea vomiting or diarrhea genitourinary denies any dysuria frequency or hematuria musculoskeletal denies any joint pain or swelling neuropsych denies any weakness or seizures all other systems reviewed are negative <Becky Shultz NP - Last Filed: 10/25/20 18:33> [facility] Medical History: Medical History (Updated 10/25/20 @ 17:46 by Becky Shultz NP) Aortic stenosis, severe Complete heart block HFrEF (heart failure with reduced ejection fraction) Hodgkins lymphoma Hypocalcemia Hypotension (arterial) Hypothyroid LBBB (left bundle branch block) NICM (nonischemic cardiomyopathy) Non-rheumatic aortic stenosis Pacemaker <Becky Shultz NP - Last Filed: 10/25/20 18:33> Family History: Family History Father No problems noted. Mother No problems noted. <Becky Shultz NP - Last Filed: 10/25/20 18:33> Surgical History: Surgical History H/O splenectomy History of appendectomy History of cardiac pacemaker <Becky Shultz NP - Last Filed: 10/25/20 18:33> Social History: Social History Household Members: Family Housing: House Do you presently have visiting nurse or other home services: No Alcohol intake: never Smoking Status: Never smoker Use of substances other than those prescribed or required for medical reasons: No Currently Displaying Signs/Symptoms of Drug Intoxication Withdrawal: No Have you been hit, kicked, punched, or otherwise hurt by someone within the past year? If so, by whom?: No Do you feel safe in your current relationship?: Yes Is there a partner from a previous relationship who is making you feel unsafe now?: No Are you made to feel afraid or neglected: No Advance Directives: No Advance Directives Information Provided: Yes Do you have thoughts of harming others: None Do you have a plan to hurt others: No Plan Recently lost weight without trying: No service: Yes Current occupational status: employed <Becky Shultz NP - Last Filed: 10/25/20 18:33> Meds Allergies/Adverse reactions: Allergies Allergy/AdvReac Type Severity Reaction Status Date / Time No Known Allergies Allergy Verified 07/20/20 11:06 [No Known Allergies*] <Becky Shultz NP - Last Filed: 10/25/20 18:33> Active Medications: Current Medications Generic Name Dose Route Start Last Admin Trade Name Freq PRN Reason Stop Dose Admin Acetaminophen 650 mg 10/25/20 17:37 Acetaminophen 325 Mg Tablet PO Q6H PRN Pain, Mild (Pain Scale 1-3) Heparin Sodium/Sodium Chloride 25,000 unit in 250 mls @ 0 mls/hr 10/25/20 17:00 IVCONT .Q0M JERRELL Protocol Per Protocol Ondansetron HCl 4 mg 10/25/20 17:37 Ondansetron Hcl 4 Mg/2 Ml Vial IVPUSH Q8H PRN Nausea and Vomiting Sodium Chloride 3 ml 10/26/20 00:00 0.9 % Sodium Chloride Flush 3 Ml Syringe IVFLUSH QSHIFT JERRELL <Becky Shultz NP - Last Filed: 10/25/20 18:33> Physical Exam Vital Signs and Narrative: Vital Signs: Last Vital Signs Temp 99.5 F 10/25/20 10:59 Pulse 87 10/25/20 17:12 Resp 14 10/25/20 17:12 BP 93/52 L 10/25/20 17:12 Pulse Ox 98 10/25/20 17:12 Body Mass Index 25.4 <Becky Shultz NP - Last Filed: 10/25/20 18:33> Appearing in no acute distress, sleepy head is normocephalic atraumatic eyes pupils are PERRLA sclera is anicteric mouth throat mucous membranes are intact and moist neck is supple no lymphadenopathy, no JVD noted lung sounds are clear to auscultation heart AV paced, lower extremity edema positive bowel sounds, abdomen is soft, nontender neuro patient is alert x3, no focal deficits <Becky Shultz NP - Last Filed: 10/25/20 18:33> Results Labs CBC and Chem 7: : 10/26/20 08:06 10/26/20 08:06 <Becky Shultz NP - Last Filed: 10/25/20 18:33> Labs: Laboratory Results - last 24 hr 10/25/20 10/25/20 10/25/20 11:29 11:29 11:29 MCV 74.2 L MCH 22.2 L MCHC 29.9 L RDW 18.6 H Plt Count 453 H MPV 9.6 Immature Gran % (Auto) 0.4 Neut % (Auto) 76.8 H Lymph % (Auto) 7.7 L [place] % (Auto) 13.3 H Eos % (Auto) 0.9 Baso % (Auto) 0.9 Lymph # (Auto) 0.7 L [place] # (Auto) 1.3 H Eos # (Auto) 0.1 Baso # (Auto) 0.1 Abs Immat Gran (auto) 0.04 H Absolute Neuts (auto) 7.4 Absolute Nucleated RBC 0.030 H Nucleated RBC % (auto) 0.3 H PT 16.2 H INR 1.4 H APTT 46.0 H Anion Gap 15 Estim Creat Clear Calc 95.3 Estimated GFR > 60 Random Glucose 87 Calcium 8.8 Magnesium 2.0 Total Bilirubin 0.8 AST 15 ALT 9 Alkaline Phosphatase 65 Troponin I High Sens B-Natriuretic Peptide Total Protein 6.7 Albumin 3.8 Urine Color Urine Appearance Urine pH Ur Specific [place] Urine Protein Urine Glucose (UA) Urine Ketones Urine Blood Urine Nitrite Ur Leukocyte Esterase Stool Occult Blood Coronavirus (PCR) Influenza Type A (PCR) Influenza Type B (PCR) RSV RNA Qual (PCR) 10/25/20 10/25/20 10/25/20 11:29 11:29 13:09 MCV MCH MCHC RDW Plt Count MPV Immature Gran % (Auto) Neut % (Auto) Lymph % (Auto) [place] % (Auto) Eos % (Auto) Baso % (Auto) Lymph # (Auto) [place] # (Auto) Eos # (Auto) Baso # (Auto) Abs Immat Gran (auto) Absolute Neuts (auto) Absolute Nucleated RBC Nucleated RBC % (auto) PT INR APTT Anion Gap Estim Creat Clear Calc Estimated GFR Random Glucose Calcium Magnesium Total Bilirubin AST ALT Alkaline Phosphatase Troponin I High Sens 5.0 B-Natriuretic Peptide 127 H Total Protein Albumin Urine Color YELLOW Urine Appearance CLEAR Urine pH 5.5 Ur Specific [place] 1.010 Urine Protein NEG Urine Glucose (UA) NEG Urine Ketones NEG Urine Blood NEG Urine Nitrite NEG Ur Leukocyte Esterase NEG Stool Occult Blood Coronavirus (PCR) NEGATIVE Influenza Type A (PCR) NEGATIVE Influenza Type B (PCR) NEGATIVE RSV RNA Qual (PCR) NEGATIVE 10/25/20 15:06 MCV MCH MCHC RDW Plt Count MPV Immature Gran % (Auto) Neut % (Auto) Lymph % (Auto) [place] % (Auto) Eos % (Auto) Baso % (Auto) Lymph # (Auto) [place] # (Auto) Eos # (Auto) Baso # (Auto) Abs Immat Gran (auto) Absolute Neuts (auto) Absolute Nucleated RBC Nucleated RBC % (auto) PT INR APTT Anion Gap Estim Creat Clear Calc Estimated GFR Random Glucose Calcium Magnesium Total Bilirubin AST ALT Alkaline Phosphatase Troponin I High Sens B-Natriuretic Peptide Total Protein Albumin Urine Color Urine Appearance Urine pH Ur Specific [place] Urine Protein Urine Glucose (UA) Urine Ketones Urine Blood Urine Nitrite Ur Leukocyte Esterase Stool Occult Blood POSITIVE Coronavirus (PCR) Influenza Type A (PCR) Influenza Type B (PCR) RSV RNA Qual (PCR) <Becky Shultz NP - Last Filed: 10/25/20 18:33> Imaging Radiologist's Impressions: Impressions Chest X-Ray 10/25/20 11:03 IMPRESSION: There is a chronic waxing and waning right pleural effusion. This may be a consequence of right heart failure. Correlate with echocardiography. Saber-sheath trachea. Question COPD. Venous Duplex 10/25/20 11:38 IMPRESSION: No DVT demonstrated in the bilateral lower extremities. Chest CTA 10/25/20 12:22 IMPRESSION: Acute pulmonary overlies above. Nonspecific sclerotic lesions within the vertebral bodies as above. Consider MRI or bone scan for further assessment. VTE: Positive This critical result was discussed with IRIS Tran at 4:35 PM on 10/25/2020 and it was ascertained that the content and urgency of the report was understood at the time of direct communication. <Becky Shultz NP - Last Filed: 10/25/20 18:33> Assessment and Plan (1) Anemia: Status: Acute <Becky Shultz NP - Last Filed: 10/25/20 18:33> (2) Bilateral pulmonary embolism: Status: Acute <Becky Shultz NP - Last Filed: 10/25/20 18:33> 59-year-old man admitted with bilateral pulmonary embolus showing as subacute. He has history of severe aortic stenosis and actually was scheduled for TAVR this week. He will be following up with Cardiology to determine whether patient is still a candidate. Pulmonary embolism. Patient with increased shortness of breath over the last several days. He does have a history of severe aortic stenosis. Chest CTA was done and found bilateral pulmonary embolus, likely related to his hematological issues. - continue IV heparin drip at some point will need to be transition to oral anticoagulation - hematology consultation Anemia. May be contributing to his shortness of breath, lethargy. Stool occult positive, no petros blood. Hematocrit 27.1. - 1 unit packed red blood cells ordered. - trend H&H Ischemic cardiomyopathy. secondary to beam radiation due to Hodgkin's lymphoma at age of 29. - Eplerenone - follow intake and output Aortic stenosis. Patient was scheduled to have TAVR this week. Will discuss case with emblem drawer in Hypotension. Multifactorial. Anemia versus medication induced. - Follow blood pressure closely - transfuse 1 unit packed red blood cells, Hopefully will improve with some volume - Will need to hold on Lasix for now. Hypothyroidism. - Levothyroxine DVT prophylaxis with IV heparin Attending: Dr. Oh <Becky Shultz NP - Last Filed: 10/25/20 18:33>
[2020-10-25] MEDS: Heparin Sodium,Porcine/1/2NS 25,000 UNIT/250 ML IV.SOLN 11.56 UNIT IVCONT (18:38)
--- NOTE | 2020-10-25 21:31 | PC.NURSE ---
x2 attempt to give report- awaiting callback
[2020-10-25 22:16] LABS: Hematocrit 28.2 % (42-52); Hemoglobin 8.5 g/dl (14.0-18.0)
[2020-10-25] MEDS: 0.9 % Sodium Chloride Flush 3 ML SYRINGE IVFLUSH (23:55)
[2020-10-26 00:41] LABS: PTT Heparin Drip 79.7 SEC (53-77.9)
[2020-10-26 03:00] VITALS: BP 99/53; PULSE 86; RESP 20; TEMP 36.4; O2SAT 96
[2020-10-26 06:00] VITALS: BMI 23.3
[2020-10-26] MEDS: oxyCODONE HCl Immed Release 5 MG TABLET PO ×2 (07:43→11:47)
[2020-10-26] MEDS: Furosemide 20 MG TABLET 60 MG PO (07:43)
[2020-10-26] MEDS: Acetaminophen 325 MG TABLET 650 MG PO (07:44)
[2020-10-26 07:45] VITALS: BP 100/57; PULSE 95; RESP 16; TEMP 36.5; O2SAT 100
[2020-10-26] MEDS: 0.9 % Sodium Chloride Flush 3 ML SYRINGE IVFLUSH ×2 (07:48→15:18)
[2020-10-26 08:32] LABS: Basophils Absolute Auto 0.1 X10*3/uL (0.0-0.2); Basophils Percent Auto 1.1 % (0-2); Eosinophils Absolute Auto 0.2 X10*3/uL (0.0-0.4); Eosinophils Percent Auto 2.1 % (0-4); Hematocrit 29.8 % (42-52); Hemoglobin 9.2 g/dl (14.0-18.0); Imm Gran Abs Auto 0.04 X10*3/uL (0.00-0.03); Imm Gran Pct Auto 0.4 % (0.0-0.4); Lymphocytes Absolute Auto 0.7 X10*3/uL (1.2-4.9); Lymphocytes Percent Auto 7.4 % (20-40); MANUAL DIFF FLAG SCAN; Mean Corpuscular HGB Conc 30.9 g/dl (31.0-36.0); Mean Corpuscular Hemoglobin 23.4 pg (27.0-33.0); Mean Corpuscular Volume 75.6 fL (80-98); Mean Platelet Volume 10.5 fL (9.4-12.4); Monocytes Absolute Auto 1.3 X10*3/uL (0.1-1.2); Monocytes Percent Auto 13.9 % (2-11); NRBC Pct Auto 0.4 /100WBC (0.0-0.2); Neutrophils Percent Auto 75.1 % (45-73); Platelet Count 442 X10*3/uL (160-400); Red Blood Count 3.94 X10*6/uL (4.60-5.80); Red Cell Distribution Width 19.3 % (11.0-16.0); SCAN SMEAR FLAG 1; White Blood Count 9.3 X10*3/uL (4.8-10.8)
[2020-10-26 08:53] LABS: Anion Gap 13 (12-20); Blood Urea Nitrogen 15 mg/dL (9-16); Calcium 8.7 mg/dL (8.4-10.2); Carbon Dioxide 29 mmol/L (22-29); Chloride 101 mmol/L (96-108); Creatinine Clr Calc Pharmacy 122.2; Estimated Glomerular Filt Rate > 60; Glucose Random 85 mg/dL (60-115); Potassium 3.7 mmol/L (3.3-5.1); Sodium 139 mmol/L (135-145)
[2020-10-26 08:59] LABS: SLIDE REVIEW VERIFIED
[2020-10-26 09:00] LABS: B Type Natriuretic Peptide 160 pg/mL (<100)
[2020-10-26 11:29] VITALS: BP 96/51; PULSE 90; RESP 16; TEMP 36.4; O2SAT 98
[2020-10-26] MEDS: Levothyroxine Sodium 175 MCG TABLET PO (11:47)
--- NOTE | 2020-10-26 11:48 | HO.PM.IMPN ---
Subjective Subjective Date of Service: 10/26/20 Interval History: sob, leg cramps Cardiovascular Cardiovascular: Reports no additional cardiovascular complaints Gastrointestinal Gastrointestinal: Reports no additional gastrointestinal complaints Physical Exam Vital Signs: Vital Signs: Last Vital Signs Temp 97.5 F 10/26/20 11:29 Pulse 90 10/26/20 11:29 Resp 16 10/26/20 11:29 BP 96/51 L 10/26/20 11:29 Pulse Ox 98 10/26/20 11:29 Body Mass Index 23.3 General: AO X 3, no acute distress, frail Resp: diminished CVS: S1,S2,RRR, murmure GI: soft, non tender, non distended Neuro: motor grossly intact Psych: appropriate affect Objective Data Current Medications Generic Name Dose Route Start Last Admin Trade Name Freq PRN Reason Stop Dose Admin Acetaminophen 650 mg 10/25/20 17:37 10/26/20 07:44 Acetaminophen 325 Mg Tablet PO 650 mg Q6H PRN Administration Pain, Mild (Pain Scale 1-3) Furosemide 60 mg 10/26/20 09:00 10/26/20 07:43 Furosemide 20 Mg Tablet PO 60 mg BID [facility] Administration Protocol Heparin Sodium/Sodium Chloride 25,000 unit in 250 mls @ 0 mls/hr 10/25/20 17:00 10/26/20 01:07 IVCONT 12 units/kg/hr .Q0M [facility] 9.91 mls/hr Titration Protocol Per Protocol Levothyroxine Sodium 175 mcg 10/26/20 09:00 10/26/20 11:47 Levothyroxine Sodium 175 Mcg Tablet PO 175 mcg DAILY@0600 [facility] Administration Non-Formulary Medication 25 mg 10/26/20 09:00 Eplerenone PO DAILY [facility] Ondansetron HCl 4 mg 10/25/20 17:37 Ondansetron Hcl 4 Mg/2 Ml Vial IVPUSH Q8H PRN Nausea and Vomiting Oxycodone HCl 5 mg 10/26/20 07:37 10/26/20 11:47 Oxycodone Hcl Immed Release 5 Mg Tablet PO 5 mg Q4H PRN Administration Pain, Mild (Pain Scale 1-3) Sodium Chloride 3 ml 10/26/20 00:00 10/26/20 07:48 0.9 % Sodium Chloride Flush 3 Ml Syringe IVFLUSH 3 ml QSHIFT [facility] Administration Labs CBC & Chem 7: 10/26/20 08:06 10/26/20 08:06 Assessment and Plan (1) Anemia: Status: Acute Assessment and Plan: 59M with non ischemic cardiomyopathy and severe with plan for TAVR presented with sob, found to have subacute PE in segmental branches of the right upper lobe left upper lobe and left lower lobe pulmonary arteries. multiple subacute segmental Pulmonary embolism given anemia and positive occult blood in stool, continue iv heparin and monitor to make sure no acute bleed anemia s/p 1 unit prbc, hgb improved appripriately to 9.2 monitor non Ischemic cardiomyopathy (anthrocycline) due to Hodgkin's lymphoma at age of 29. - Eplerenone, lasix severe initially planned for TAVR this week follow up with cardiology Hypothyroidism. Levothyroxine
--- NOTE | 2020-10-26 11:52 | PM.CNCAR ---
History of Present Illness History of Present Illness Date of Service: 10/26/20 Requesting physician: Gary Oh Chief complaint: Aortic stenosis, pulmonary embolism Narrative: 59-year-old gentleman with background history of Hodgkin's lymphoma for which he underwent radiation many years ago. He has severe aortic stenosis, nonischemic cardiomyopathy with EF of 50 55% and recurrent pleural effusion. He is presenting again for shortness of breath and lower extremity edema. He came to the ER and was given IV Lasix. He had CT chest to rule out pulmonary embolism which incidentally showed subsegmental pulmonary emboli in the right upper low left upper lobe and left lower lobe. He was started on heparin drip. He has no bleeding issues. He is anemic. He was due to get transcatheter aortic valve replacement or thirst. He is saying that with diuretics his symptoms are improved. Review of Systems Review of Systems: Shortness of breath proving Yes all other systems are reviewed and are negative PMFSH Past Medical History Medical History (Updated 10/25/20 @ 17:46 by Becky Shultz NP) Aortic stenosis, severe Complete heart block HFrEF (heart failure with reduced ejection fraction) Hodgkins lymphoma Hypocalcemia Hypotension (arterial) Hypothyroid LBBB (left bundle branch block) NICM (nonischemic cardiomyopathy) Non-rheumatic aortic stenosis Pacemaker Family History Family History Father No problems noted. Mother No problems noted. Surgical History Surgical History H/O splenectomy History of appendectomy History of cardiac pacemaker Social History Social History Household Members: Family Housing: House Do you presently have visiting nurse or other home services: No Alcohol intake: never Smoking Status: Never smoker Use of substances other than those prescribed or required for medical reasons: No Currently Displaying Signs/Symptoms of Drug Intoxication Withdrawal: No Have you been hit, kicked, punched, or otherwise hurt by someone within the past year? If so, by whom?: No Do you feel safe in your current relationship?: Yes Is there a partner from a previous relationship who is making you feel unsafe now?: No Are you made to feel afraid or neglected: No Advance Directives: No Advance Directives Information Provided: Yes Do you have thoughts of harming others: None Do you have a plan to hurt others: No Plan Recently lost weight without trying: No service: Yes Current occupational status: employed Meds Allergies Allergy/AdvReac Type Severity Reaction Status Date / Time No Known Allergies Allergy Verified 07/20/20 11:06 [No Known Allergies*] Active Medications: Current Medications Generic Name Dose Route Start Last Admin Trade Name Freq PRN Reason Stop Dose Admin Acetaminophen 650 mg 10/25/20 17:37 10/26/20 07:44 Acetaminophen 325 Mg Tablet PO 650 mg Q6H PRN Administration Pain, Mild (Pain Scale 1-3) Furosemide 60 mg 10/26/20 09:00 10/26/20 07:43 Furosemide 20 Mg Tablet PO 60 mg BID [facility] Administration Protocol Heparin Sodium/Sodium Chloride 25,000 unit in 250 mls @ 0 mls/hr 10/25/20 17:00 10/26/20 01:07 IVCONT 12 units/kg/hr .Q0M JERRELL 9.91 mls/hr Titration Protocol Per Protocol Levothyroxine Sodium 175 mcg 10/26/20 09:00 10/26/20 11:47 Levothyroxine Sodium 175 Mcg Tablet PO 175 mcg DAILY@0600 [facility] Administration Non-Formulary Medication 25 mg 10/26/20 09:00 Eplerenone PO DAILY [facility] Ondansetron HCl 4 mg 10/25/20 17:37 Ondansetron Hcl 4 Mg/2 Ml Vial IVPUSH Q8H PRN Nausea and Vomiting Oxycodone HCl 5 mg 10/26/20 07:37 10/26/20 11:47 Oxycodone Hcl Immed Release 5 Mg Tablet PO 5 mg Q4H PRN Administration Pain, Mild (Pain Scale 1-3) Sodium Chloride 3 ml 10/26/20 00:00 10/26/20 07:48 0.9 % Sodium Chloride Flush 3 Ml Syringe IVFLUSH 3 ml QSHIFT [facility] Administration Physical Exam Vital Signs: Vital Signs: Last Vital Signs Temp 97.5 F 10/26/20 11:29 Pulse 90 10/26/20 11:29 Resp 16 10/26/20 11:29 BP 96/51 L 10/26/20 11:29 Pulse Ox 98 10/26/20 11:29 Body Mass Index 23.3 GENERAL APPEARANCE: in no acute distress. HEENT: unremarkable. HEAD: normocephalic, atraumatic. NECK/THYROID: no carotid bruit, + JVD SKIN: no suspicious lesions, warm and dry. HEART: Ejection systolic murmur in aortic area without 2nd heart sound, regular rate and rhythm. LUNGS: clear to auscultation bilaterally. ABDOMEN: normal, bowel sounds present, soft, nontender, nondistended. EXTREMITIES: no clubbing, cyanosis. trace edema. PERIPHERAL PULSES: equal. NEUROLOGIC: nonfocal, alert and oriented. PSYCH: mood/affect full range. Results Labs and Meds Result diagrams: 10/26/20 08:06 10/26/20 08:06 Lab results: Laboratory Results - last 24 hr 10/25/20 10/25/20 10/25/20 11:29 11:29 11:29 WBC RBC Hgb Hct MCV MCH MCHC RDW Plt Count MPV Immature Gran % (Auto) Neut % (Auto) Lymph % (Auto) [place] % (Auto) Eos % (Auto) Baso % (Auto) Lymph # (Auto) [place] # (Auto) Eos # (Auto) Baso # (Auto) Abs Immat Gran (auto) Absolute Neuts (auto) Absolute Nucleated RBC Nucleated RBC % (auto) Smear Tech's Comments PT 16.2 H INR 1.4 H APTT 46.0 H PTT (Heparin Protocol) Sodium 138 Potassium 3.8 Chloride 98 Carbon Dioxide 29 Anion Gap 15 BUN 23 H D Creatinine 0.91 Estim Creat Clear Calc 95.3 Estimated GFR > 60 Random Glucose 87 Calcium 8.8 Magnesium 2.0 Total Bilirubin 0.8 AST 15 ALT 9 Alkaline Phosphatase 65 Troponin I High Sens 5.0 B-Natriuretic Peptide 127 H Total Protein 6.7 Albumin 3.8 Urine Color Urine Appearance Urine pH Ur Specific [place] Urine Protein Urine Glucose (UA) Urine Ketones Urine Blood Urine Nitrite Ur Leukocyte Esterase Stool Occult Blood Coronavirus (PCR) Influenza Type A (PCR) Influenza Type B (PCR) RSV RNA Qual (PCR) Blood Type Antibody Screen Crossmatch 10/25/20 10/25/20 10/25/20 11:29 13:09 15:06 WBC RBC Hgb Hct MCV MCH MCHC RDW Plt Count MPV Immature Gran % (Auto) Neut % (Auto) Lymph % (Auto) [place] % (Auto) Eos % (Auto) Baso % (Auto) Lymph # (Auto) [place] # (Auto) Eos # (Auto) Baso # (Auto) Abs Immat Gran (auto) Absolute Neuts (auto) Absolute Nucleated RBC Nucleated RBC % (auto) Smear Tech's Comments PT INR APTT PTT (Heparin Protocol) Sodium Potassium Chloride Carbon Dioxide Anion Gap BUN Creatinine Estim Creat Clear Calc Estimated GFR Random Glucose Calcium Magnesium Total Bilirubin AST ALT Alkaline Phosphatase Troponin I High Sens B-Natriuretic Peptide Total Protein Albumin Urine Color YELLOW Urine Appearance CLEAR Urine pH 5.5 Ur Specific [place] 1.010 Urine Protein NEG Urine Glucose (UA) NEG Urine Ketones NEG Urine Blood NEG Urine Nitrite NEG Ur Leukocyte Esterase NEG Stool Occult Blood POSITIVE Coronavirus (PCR) NEGATIVE Influenza Type A (PCR) NEGATIVE Influenza Type B (PCR) NEGATIVE RSV RNA Qual (PCR) NEGATIVE Blood Type Antibody Screen Crossmatch 10/25/20 10/25/20 10/26/20 17:19 22:10 00:22 WBC RBC Hgb 8.5 L Hct 28.2 L MCV MCH MCHC RDW Plt Count MPV Immature Gran % (Auto) Neut % (Auto) Lymph % (Auto) [place] % (Auto) Eos % (Auto) Baso % (Auto) Lymph # (Auto) [place] # (Auto) Eos # (Auto) Baso # (Auto) Abs Immat Gran (auto) Absolute Neuts (auto) Absolute Nucleated RBC Nucleated RBC % (auto) Smear Tech's Comments PT INR APTT PTT (Heparin Protocol) 79.7 H Sodium Potassium Chloride Carbon Dioxide Anion Gap BUN Creatinine Estim Creat Clear Calc Estimated GFR Random Glucose Calcium Magnesium Total Bilirubin AST ALT Alkaline Phosphatase Troponin I High Sens B-Natriuretic Peptide Total Protein Albumin Urine Color Urine Appearance Urine pH Ur Specific [place] Urine Protein Urine Glucose (UA) Urine Ketones Urine Blood Urine Nitrite Ur Leukocyte Esterase Stool Occult Blood Coronavirus (PCR) Influenza Type A (PCR) Influenza Type B (PCR) RSV RNA Qual (PCR) Blood Type A Positive Antibody Screen NEGATIVE Crossmatch See Detail 10/26/20 10/26/20 10/26/20 08:06 08:06 08:06 WBC 9.3 RBC 3.94 L Hgb 9.2 L Hct 29.8 L MCV 75.6 L MCH 23.4 L MCHC 30.9 L RDW 19.3 H Plt Count 442 H MPV 10.5 Immature Gran % (Auto) 0.4 Neut % (Auto) 75.1 H Lymph % (Auto) 7.4 L [place] % (Auto) 13.9 H Eos % (Auto) 2.1 Baso % (Auto) 1.1 Lymph # (Auto) 0.7 L [place] # (Auto) 1.3 H Eos # (Auto) 0.2 Baso # (Auto) 0.1 Abs Immat Gran (auto) 0.04 H Absolute Neuts (auto) 7.0 Absolute Nucleated RBC 0.040 H Nucleated RBC % (auto) 0.4 H Smear Tech's Comments VERIFIED PT INR APTT PTT (Heparin Protocol) Sodium 139 Potassium 3.7 Chloride 101 Carbon Dioxide 29 Anion Gap 13 BUN 15 Creatinine 0.71 Estim Creat Clear Calc 122.2 Estimated GFR > 60 Random Glucose 85 Calcium 8.7 Magnesium Total Bilirubin AST ALT Alkaline Phosphatase Troponin I High Sens B-Natriuretic Peptide 160 H Total Protein Albumin Urine Color Urine Appearance Urine pH Ur Specific [place] Urine Protein Urine Glucose (UA) Urine Ketones Urine Blood Urine Nitrite Ur Leukocyte Esterase Stool Occult Blood Coronavirus (PCR) Influenza Type A (PCR) Influenza Type B (PCR) RSV RNA Qual (PCR) Blood Type Antibody Screen Crossmatch 10/26/20 08:06 WBC RBC Hgb Hct MCV MCH MCHC RDW Plt Count MPV Immature Gran % (Auto) Neut % (Auto) Lymph % (Auto) [place] % (Auto) Eos % (Auto) Baso % (Auto) Lymph # (Auto) [place] # (Auto) Eos # (Auto) Baso # (Auto) Abs Immat Gran (auto) Absolute Neuts (auto) Absolute Nucleated RBC Nucleated RBC % (auto) Smear Tech's Comments PT INR APTT PTT (Heparin Protocol) 67.0 Sodium Potassium Chloride Carbon Dioxide Anion Gap BUN Creatinine Estim Creat Clear Calc Estimated GFR Random Glucose Calcium Magnesium Total Bilirubin AST ALT Alkaline Phosphatase Troponin I High Sens B-Natriuretic Peptide Total Protein Albumin Urine Color Urine Appearance Urine pH Ur Specific [place] Urine Protein Urine Glucose (UA) Urine Ketones Urine Blood Urine Nitrite Ur Leukocyte Esterase Stool Occult Blood Coronavirus (PCR) Influenza Type A (PCR) Influenza Type B (PCR) RSV RNA Qual (PCR) Blood Type Antibody Screen Crossmatch Imaging Radiologist's impression: Impressions Venous Duplex 10/25/20 11:38 IMPRESSION: No DVT demonstrated in the bilateral lower extremities. Chest CTA 10/25/20 12:22 IMPRESSION: Acute pulmonary overlies above. Nonspecific sclerotic lesions within the vertebral bodies as above. Consider MRI or bone scan for further assessment. VTE: Positive This critical result was discussed with IRIS Tran at 4:35 PM on 10/25/2020 and it was ascertained that the content and urgency of the report was understood at the time of direct communication. Assessment and Plan (1) Non-rheumatic aortic stenosis: Status: Acute (2) Congestive heart failure: Qualifiers: Heart failure type: diastolic Status: Acute (3) Recurrent pleural effusion on right: Status: Acute (4) Bilateral pulmonary embolism: Status: Acute 59-year-old gentleman who is presenting for shortness of breath. He has known history of severe aortic stenosis and was due to undergo transcatheter aortic valve replacement on . He has lower extremity edema which is improved with diuretics already. He is saying his breathing is better. Incidentally he had a CT chest which showed subsegmental pulmonary emboli. He was given heparin drip after that. No bleeding issues but he is anemic. On exam he has mild JVD present. I think his home dose of Lasix should be increased to 80 mg p.o. b.i.d.. I will discuss the case at [facility] whether we can transfer him on heparin drip and he again had transcatheter aortic valve replacement and then long-term anticoagulation can be started. It appears he is not very symptomatic from the pulmonary emboli. He also does not have any evidence of DVT in the lower extremities ultrasound and probably heparin can be interrupted in the periprocedural peroid. Pleural effusion stable. Thank you for allowing me to participate in the care of your patient. Please feel free to contact me if you have any questions.
--- NOTE | 2020-10-26 12:10 | P.CNHO_ITS ---
Subjective - Subjective Chief complaint: Consult for: 1. P.E. 2. Anemia. Patient: new to practice Consult date: 10/26/20 Requesting Physician: Althea. Primary Care Provider: Yesica Kay MD Medical Summary: DIAGNOSIS: 1. BILATERAL PE. 2. ANEMIA. 3. HISTORY OF HODGKIN'S LYMPHOMA. HPI - Consult Narrative Reason for consult: Consult for 1. P.E. 2. Anemia. Narrative: Enrique Monahan is a pleasant 59 year old man gentleman, who presented with increased shortness of breath. 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 and was at work. He had shortness of breath, dry cough, dyspnea on exertion and orthopnea with lower extremity edema. His symptoms have been worsening over the last 5 days. He denies chest pain, nausea, vomiting, diarrhea, fever, chills, recent illness. He has a history of ischemic cardiomyopathy secondary to radiation from Hodgkin's lymphoma. He had a a biventricular pacemaker and ICD placed in 2013, after an episode of syncope and was found to have systolic heart failure. His heart failure did improve over time. He was also noted to have severe aortic stenosis and was actually scheduled to have trans aortic valve replacement this week. His Labs: BNP 127, BUN 23, hematocrit 27.1, stool occult positive. He reported some hemorrhoidal bleeding over the last several months. He denies having any petros blood but sometimes there is red blood when he wipes occasionally. Chest CTA was obtained which showed: Bilateral subacute pulmonary embolism. For the anemia, he had 1 unit of packed red blood cells ordered and he was started on IV heparin drip. Patient was hypotensive, so was not diuresed. Review of Systems - Constitutional Reports system reviewed and no additional complaints, except as documented, Reports weakness - Eyes Reports system reviewed and no additional complaints, except as documented - ENT Reports system reviewed and no additional complaints, except as documented - Cardiovascular Reports system reviewed and no additional complaints, except as documented - Respiratory Reports no additional respiratory complaints - Gastrointestinal Reports system reviewed and no additional complaints, except as documented - Genitourinary Genitourinary: Reports no additional male genitourinary complaints - Musculoskeletal Reports system reviewed and no additional complaints, except as documented - Integumentary/Breasts Skin/Breast: Reports no additional skin complaints - Neurologic Reports system reviewed and no additional complaints, except as documented - Psychiatric Reports system reviewed and no additional complaints, except as documented - Endocrine Reports no additional endocrine complaints - Hematologic/Lymphatic Reports system reviewed and no additional complaints, except as documented - Allergic/Immunologic Reports system reviewed and no additional complaints, except as documented [facility] Medical History: Medical History (Last Updated 10/25/20 @ 17:45 by Becky Shultz NP) Aortic stenosis, severe Complete heart block HFrEF (heart failure with reduced ejection fraction) Hodgkins lymphoma Hypocalcemia Hypotension (arterial) Hypothyroid LBBB (left bundle branch block) NICM (nonischemic cardiomyopathy) Non-rheumatic aortic stenosis Pacemaker Functional capacity: independent ambulation Patient : No Family History: Family History (Last Reviewed 10/25/20 @ 14:22 by IRIS Tran) Father No problems noted. Mother No problems noted. Surgical History: Surgical History (Last Reviewed 10/25/20 @ 14:22 by IRIS Tran) H/O splenectomy History of appendectomy History of cardiac pacemaker Social History: Social History (Last Reviewed 10/25/20 @ 14:22 by IRIS Tran) Living Situation History: Household Members: Family Housing: House Alcohol History: Alcohol intake: never Alcohol History Details: Alcohol intake frequency: a few times a month Occupation Assessmet: service: Yes Current occupational status: employed Smoking status: Never smoker Home Medications and Allergies Current Medications: Current Medications Generic Name Dose Route Start Last Admin Trade Name Freq PRN Reason Stop Dose Admin Acetaminophen 650 mg 10/25/20 17:37 10/26/20 07:44 Acetaminophen 325 Mg Tablet PO 650 mg Q6H PRN Administration Pain, Mild (Pain Scale 1-3) Furosemide 80 mg 10/26/20 21:00 Furosemide 40 Mg Tablet PO BID JERRELL Protocol Heparin Sodium/Sodium Chloride 25,000 unit in 250 mls @ 0 mls/hr 10/25/20 17:00 10/26/20 01:07 IVCONT 12 units/kg/hr .Q0M JERRELL 9.91 mls/hr Titration Protocol Per Protocol Levothyroxine Sodium 175 mcg 10/26/20 09:00 10/26/20 11:47 Levothyroxine Sodium 175 Mcg Tablet PO 175 mcg DAILY@0600 JERRELL Administration Non-Formulary Medication 25 mg 10/26/20 09:00 Eplerenone PO DAILY [facility] Ondansetron HCl 4 mg 10/25/20 17:37 Ondansetron Hcl 4 Mg/2 Ml Vial IVPUSH Q8H PRN Nausea and Vomiting Oxycodone HCl 5 mg 10/26/20 07:37 10/26/20 11:47 Oxycodone Hcl Immed Release 5 Mg Tablet PO 5 mg Q4H PRN Administration Pain, Mild (Pain Scale 1-3) Sodium Chloride 3 ml 10/26/20 00:00 10/26/20 07:48 0.9 % Sodium Chloride Flush 3 Ml Syringe IVFLUSH 3 ml QSHIFT [facility] Administration Allergies Allergy/AdvReac Type Severity Reaction Status Date / Time No Known Allergies Allergy Verified 07/20/20 11:06 [No Known Allergies*] Physical Exam Vital signs: Vital Signs Temp 97.5 F 10/26/20 11:29 Pulse 90 10/26/20 11:29 Resp 16 10/26/20 11:29 BP 96/51 L 10/26/20 11:29 Pulse Ox 98 10/26/20 11:29 Intake & Output 10/25/20 10/26/20 10/26/20 18:59 06:59 18:59 Intake Total 644.947 / 644.947 Output Total 100 / 100 Balance 544.947 / 544.947 Urine Output (Average ml/kg/hr) 0.11 Intake: Intake, Oral Amount 120 / 120 Intake (Blood Product) Amount 350 / 350 Red Blood Cells (E0336) Unit 350 / 350 [id number] Intake, Other Amount 100 / 100 Red Blood Cells (E0336) Unit 100 / 100 [id number] Intake, IV Amount 74.947 / 74.947 Heparin Sodium,Porcine/1/2NS 25 74.947 / 74.947 ,000 unit In 250 ml @ Per Protocol IVCONT .Q0M [facility] Rx#: [id number] Output: Output, Urine Amount 100 / 100 Other: Urine Urinal Urine Color Yellow Weight 76.8 kg 76 kg Weight in Grams [phone] [phone] Weight 76 kg - Constitutional Present: moderate distress - Routine HEENT Exam Head: Present: normal inspection ENT: Present: mucous membranes moist - Routine Neck Exam Present: supple - Routine Respiratory Exam Present: CTAB - Routine Cardiovascular Exam Cardiovascular: Present: RRR, S2 - Routine Abdominal Exam Present: normal bowel sounds, nontender - Routine Rectal Exam Patient deferred: digital exam - Routine Extremities Exam Present: nontender - Routine Skin Exam Present: intact - Routine Neurological Exam Present: alert, oriented X3, normal speech - Detailed Neurological Exam: Coma Scale Eye Opening: Spontaneous (4) Verbal Response: Oriented (5) Motor Response: Obeys commands (6) [place] Coma Scale Total: 15 - Routine Psychiatric Exam Present: normal mood Hem/Onc Consult Result - Labs CBC & Chem 7: 10/27/20 06:07 10/27/20 06:07 Labs: Short CBC 10/25/20 10/26/20 Range/Units 22:10 08:06 WBC 9.3 (4.8-10.8) X10*3/uL Hgb 8.5 L 9.2 L (14.0-18.0) g/dl Hct 28.2 L 29.8 L (42-52) % Plt Count 442 H (160-400) X10*3/uL BMP 10/26/20 08:06 Sodium 139 Potassium 3.7 Chloride 101 Carbon Dioxide 29 BUN 15 Creatinine 0.71 Calcium 8.7 Urine 10/25/20 Range/Units 13:09 Urine Color YELLOW Urine Appearance CLEAR Urine pH 5.5 (5.0-8.0) Ur Specific [place] 1.010 (1.005-1.025) Urine Protein NEG (NEG-TRACE) MG/DL Urine Glucose (UA) NEG (NEG) MG/DL Assessment and Plan (1) Bilateral pulmonary embolism Status: Acute 59-year-old gentleman, with a remote history of Hodgkin's lymphoma status post mantle field radiation therapy. Lately he has had congestive heart failure. He has a history of ischemic cardiomyopathy secondary to radiation from Hodgkin's lymphoma. He had a a biventricular pacemaker and ICD placed in 2013, after an episode of syncope and was found to have systolic heart failure. His heart failure did improve over time. He presented yesterday with shortness of breath. He has known history of severe aortic stenosis and was actually due to undergo transcatheter aortic valve replacement on . He has clinically improved. His lower extremity edema has improved with diuretics. On exam he has mild JVD present. His Lasix dose has been increased to 80 mg twice a day. He had a CT chest which showed subsegmental pulmonary emboli. He was given heparin drip for it. There is no evidence of DVT in the lower extremities ultrasound It appears he is not very symptomatic from the pulmonary emboli. He does not have any bleeding issues, however he has been noted to be anemic. He has guaiac-positive stool. History of hemorrhoids. 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 PLAN: I will proceed with an anemia workup on labs drawn prior to transfusion. Iron profile: /. B12 220. To continue him on the IV heparin for now. The plan from cardiology is to transfer the patient to [facility], on heparin drip where he would be able to have the transcatheter aortic valve replacement and then long-term anticoagulation can be started. The heparin can be interrupted in the periprocedural peroid. Will continue to monitor CBC. To arrange for a surveillance colonoscopy, once stable and acute problems have been taken care off. Thank you, CC: Dr. Barrios. (2) Hodgkin lymphoma Status: Acute 59 year-old gentleman with history of Hodgkin's Lymphoma diagnosed in 1989. He initially presented with Left supraclavicular adenopathy. Chest x-ray revealed a mediastinal mass. Staging laparotomy negative. He underwent radiation therapy to inverted-Y field, stayed in remission for 5 years. He then developed recurrence in the right inguinal area, 1994. He was treated with 6 cycles of ABVD completed April 1996. He had radiation induced hypothyroidism. He has clinically remained in remission. 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 He has seen a genetic counselor, Given the high risk for malignancy, cancer surv [facility] is the major focus of management. He is undergoing annual colonoscopies by Dr. Gillis, at [facility]. In terms of surveillance, a recommendation from NCCN is: 1) Annual comprehensive physical examination. 2) Thyroid ultrasound annually. 3) Colonoscopy every 5 years, more frequent if symptomatic. However in view of the Gonzales's syndrome he should have annual colonoscopy. 4) Renal ultrasound to be repeated every 1 to 2 years. 5) Annual skin exam, also need to have a low index of suspicion for dysplastic gangliocytoma of the cerebellum. 6) If patient has symptoms, i.e anyone with persistent headache, then neuroimaging is recommended. I last saw him in July of 2019 after which he had to transfer his care to [facility] for insurance reasons. CC: Dr. Barrios.
[2020-10-26 12:58] LABS: Iron 20 mcg/dL (45-160); Lactate Dehydrogenase 193 U/L (118-273); Percent Iron Saturation 5 % (15-50); Total Iron Binding Capacity 365 mcg/dL (228-428); Unsaturated Iron Binding 345 ug/dL
[2020-10-26 13:33] LABS: Vitamin B12 220 pg/mL (200-900)
[2020-10-26 15:13] VITALS: BP 98/54; PULSE 90; RESP 20; TEMP 35.8; O2SAT 99
--- NOTE | 2020-10-26 16:03 | MHC.CM.PN ---
CM ATTEMPTED TO SEE PT WHO WAS MEDICAL STAFF. CM CONTACTED PTS , JACKI ([phone]) WHO REPORTS THE PT LIVES AT HOME WITH HER AND THEY CHILDREN. SHE REPORTS HE IS FULLY IND, HAS NO SERVICES AND NO DME. JACKI REPORTS THE PT HAS A HCP AND A PCP. CURRENT DC PLAN IS HOME WITH NO SERVICES
[2020-10-26] MEDS: Heparin Sodium,Porcine/1/2NS 25,000 UNIT/250 ML IV.SOLN 9.91 UNIT IVCONT (16:35)
[2020-10-26 19:09] VITALS: BP 107/56; PULSE 100; RESP 20; TEMP 36.2; O2SAT 100
[2020-10-26] MEDS: Furosemide 40 MG TABLET 80 MG PO (20:09)
[2020-10-26 23:53] VITALS: BP 86/47; PULSE 103; RESP 18; TEMP 36.6; O2SAT 95
[2020-10-27 00:23] VITALS: BP 105/55
[2020-10-27 03:45] VITALS: BP 95/51; PULSE 98; RESP 20; TEMP 36.8; O2SAT 95
[2020-10-27] MEDS: Levothyroxine Sodium 175 MCG TABLET PO (05:58)
[2020-10-27 06:00] VITALS: BMI 30.2
[2020-10-27 06:45] LABS: MANUAL DIFF FLAG NO
[2020-10-27 06:56] LABS: Basophils Absolute Auto 0.1 X10*3/uL (0.0-0.2); Eosinophils Absolute Auto 0.3 X10*3/uL (0.0-0.4); Eosinophils Percent Auto 2.9 % (0-4); Hematocrit 29.7 % (42-52); Imm Gran Abs Auto 0.04 X10*3/uL (0.00-0.03); Imm Gran Pct Auto 0.4 % (0.0-0.4); Lymphocytes Absolute Auto 0.9 X10*3/uL (1.2-4.9); Lymphocytes Percent Auto 9.8 % (20-40); Mean Corpuscular HGB Conc 30.3 g/dl (31.0-36.0); Mean Corpuscular Hemoglobin 22.6 pg (27.0-33.0); Mean Corpuscular Volume 74.4 fL (80-98); Mean Platelet Volume 10.6 fL (9.4-12.4); Monocytes Absolute Auto 1.5 X10*3/uL (0.1-1.2); Monocytes Percent Auto 16.2 % (2-11); NRBC Pct Auto 0.3 /100WBC (0.0-0.2); Neutrophils Absolute Auto 6.4 X10*3/uL (2.0-8.3); Neutrophils Percent Auto 69.7 % (45-73); Platelet Count 498 X10*3/uL (160-400); Red Blood Count 3.99 X10*6/uL (4.60-5.80); Red Cell Distribution Width 19.5 % (11.0-16.0); White Blood Count 9.2 X10*3/uL (4.8-10.8)
[2020-10-27 07:02] LABS: PTT Heparin Drip 65.6 SEC (53-77.9)
[2020-10-27 07:14] LABS: Anion Gap 12 (12-20); Blood Urea Nitrogen 13 mg/dL (9-16); Calcium 8.2 mg/dL (8.4-10.2); Carbon Dioxide 30 mmol/L (22-29); Chloride 101 mmol/L (96-108); Creatinine Clr Calc Pharmacy 131.5; Estimated Glomerular Filt Rate > 60; Glucose Fasting 89 mg/dL (60-99); Potassium 3.8 mmol/L (3.3-5.1); Sodium 139 mmol/L (135-145)
[2020-10-27 07:55] VITALS: BP 92/51; PULSE 97; RESP 20; TEMP 37.1; O2SAT 100
[2020-10-27] MEDS: 0.9 % Sodium Chloride Flush 3 ML SYRINGE IVFLUSH (09:39)
[2020-10-27] MEDS: Furosemide 40 MG TABLET 80 MG PO (09:39)
[2020-10-27 12:00] VITALS: BP 104/55; PULSE 107; RESP 20; TEMP 36.6; O2SAT 100
--- NOTE | 2020-10-27 14:02 | P.PNIM_ITS ---
Subjective Subjective Date of Service: 10/27/20 Interval History: tired Cardiovascular Cardiovascular: Reports no additional cardiovascular complaints and Reports dyspnea Respiratory Respiratory: Reports dyspnea Physical Exam Vital Signs: Vital Signs: Last Vital Signs Temp 97.8 F 10/27/20 12:00 Pulse 107 H 10/27/20 12:00 Resp 20 10/27/20 12:00 BP 104/55 L 10/27/20 12:00 Pulse Ox 100 10/27/20 12:00 Body Mass Index 30.2 General: AO X 3, no acute distress, frail Resp: diminished CVS: S1,S2,RRR, murmure GI: soft, non tender, non distended Neuro: motor grossly intact Psych: appropriate affect Objective Data Current Medications Generic Name Dose Route Start Last Admin Trade Name Freq PRN Reason Stop Dose Admin Acetaminophen 650 mg 10/25/20 17:37 10/26/20 07:44 Acetaminophen 325 Mg Tablet PO 650 mg Q6H PRN Administration Pain, Mild (Pain Scale 1-3) Furosemide 80 mg 10/26/20 21:00 10/27/20 09:39 Furosemide 40 Mg Tablet PO 80 mg BID [facility] Administration Protocol Heparin Sodium/Sodium Chloride 25,000 unit in 250 mls @ 0 mls/hr 10/25/20 17:00 10/26/20 16:35 IVCONT 12 units/kg/hr .Q0M JRERELL 9.91 mls/hr Administration Protocol Per Protocol Levothyroxine Sodium 175 mcg 10/26/20 09:00 10/27/20 05:58 Levothyroxine Sodium 175 Mcg Tablet PO 175 mcg DAILY@0600 [facility] Administration Non-Formulary Medication 25 mg 10/26/20 09:00 Eplerenone PO DAILY [facility] Ondansetron HCl 4 mg 10/25/20 17:37 Ondansetron Hcl 4 Mg/2 Ml Vial IVPUSH Q8H PRN Nausea and Vomiting Oxycodone HCl 5 mg 10/26/20 07:37 10/26/20 11:47 Oxycodone Hcl Immed Release 5 Mg Tablet PO 5 mg Q4H PRN Administration Pain, Mild (Pain Scale 1-3) Sodium Chloride 3 ml 10/26/20 00:00 10/27/20 09:39 0.9 % Sodium Chloride Flush 3 Ml Syringe IVFLUSH 3 ml QSHIFT [facility] Administration Labs CBC & Chem 7: 10/27/20 06:07 10/27/20 06:07 Assessment and Plan (1) Anemia: Status: Acute Assessment and Plan: 59M with non ischemic cardiomyopathy and severe with plan for TAVR presented with sob, found to have subacute PE in segmental branches of the right upper lobe left upper lobe and left lower lobe pulmonary arteries. multiple subacute segmental Pulmonary embolism given anemia and positive occult blood in stool, continue iv heparin and monitor to make sure no acute bleed anemia s/p 1 unit prbc, hgb improved appripriately to 9.2, stable at 9.0 today monitor non Ischemic cardiomyopathy (anthrocycline) due to Hodgkin's lymphoma at age of 29. - Eplerenone, lasix severe initially planned for TAVR this week possible plan to transfer to [facility] to complete with minimal interuption of anticoagulation Hypothyroidism. Levothyroxine
--- NOTE | 2020-10-27 14:15 | PM.PNCARD ---
Subjective Subjective Date of Service: 10/27/20 Interval history: Feeling better. No chest pain. Some tachycardia when he walks with the heart rate in low 100s. Physical Exam Vital Signs: Last Vital Signs Temp 97.8 F 10/27/20 12:00 Pulse 107 H 10/27/20 12:00 Resp 20 10/27/20 12:00 BP 104/55 L 10/27/20 12:00 Pulse Ox 100 10/27/20 12:00 Body Mass Index 30.2 GENERAL APPEARANCE: in no acute distress. HEENT: unremarkable. HEAD: normocephalic, atraumatic. NECK/THYROID: no carotid bruit, + JVD SKIN: no suspicious lesions, warm and dry. HEART: Ejection systolic murmur in aortic area without 2nd heart sound, regular rate and rhythm. LUNGS: clear to auscultation bilaterally. ABDOMEN: normal, bowel sounds present, soft, nontender, nondistended. EXTREMITIES: no clubbing, cyanosis. trace edema. PERIPHERAL PULSES: equal. NEUROLOGIC: nonfocal, alert and oriented. PSYCH: mood/affect full range. Results Labs and Meds Result diagrams: 10/27/20 06:07 10/27/20 06:07 Lab results: Laboratory Results - last 24 hr 10/26/20 10/27/20 10/27/20 14:48 06:07 06:07 WBC 9.2 RBC 3.99 L Hgb 9.0 L Hct 29.7 L MCV 74.4 L MCH 22.6 L MCHC 30.3 L RDW 19.5 H Plt Count 498 H MPV 10.6 Immature Gran % (Auto) 0.4 Neut % (Auto) 69.7 Lymph % (Auto) 9.8 L Potter % (Auto) 16.2 H Eos % (Auto) 2.9 Baso % (Auto) 1.0 Lymph # (Auto) 0.9 L Potter # (Auto) 1.5 H Eos # (Auto) 0.3 Baso # (Auto) 0.1 Abs Immat Gran (auto) 0.04 H Absolute Neuts (auto) 6.4 Absolute Nucleated RBC 0.030 H Nucleated RBC % (auto) 0.3 H PTT (Heparin Protocol) 67.0 Sodium 139 Potassium 3.8 Chloride 101 Carbon Dioxide 30 H Anion Gap 12 BUN 13 Creatinine 0.74 Estim Creat Clear Calc 131.5 Estimated GFR > 60 Fasting Glucose 89 Calcium 8.2 L 10/27/20 06:07 WBC RBC Hgb Hct MCV MCH MCHC RDW Plt Count MPV Immature Gran % (Auto) Neut % (Auto) Lymph % (Auto) Potter % (Auto) Eos % (Auto) Baso % (Auto) Lymph # (Auto) Potter # (Auto) Eos # (Auto) Baso # (Auto) Abs Immat Gran (auto) Absolute Neuts (auto) Absolute Nucleated RBC Nucleated RBC % (auto) PTT (Heparin Protocol) 65.6 Sodium Potassium Chloride Carbon Dioxide Anion Gap BUN Creatinine Estim Creat Clear Calc Estimated GFR Fasting Glucose Calcium Progress Note: A&P Assessment and plan (1) Congestive heart failure: Status: Acute (2) Non-rheumatic aortic stenosis: Status: Acute (3) Bilateral pulmonary embolism: Status: Acute Assessment and Plan: 59-year-old gentleman with severe aortic stenosis who was planned to undergo transcatheter aortic valve replacement on . He got admitted with shortness of breath due to congestive heart failure. Instantly CT scan of his chest showed subsegmental pulmonary emboli. He has been started on heparin drip. He was anemic and was given 1 unit of blood before starting the heparin drip. His hemoglobin has been stable. No bleeding. He has mild tachycardia when he walks otherwise at rest his heart rates are in 90-100. I discussed the case with Dr. Zuniga at [facility] was agree to transfer him so he can potentially undergo transcatheter aortic valve replacement on . He will stay on heparin drip till then. After the procedure he can be started on long-term anticoagulation. I think his Lasix dose should be increased to 80 mg p.o. b.i.d. compared to 60 mg p.o. b.i.d.. Thank you for allowing me to participate in the care of your patient. Please feel free to contact me if you have any questions. Fall Risk Details Current Medications: Current Medications Generic Name Dose Route Start Last Admin Trade Name Freq PRN Reason Stop Dose Admin Acetaminophen 650 mg 10/25/20 17:37 10/26/20 07:44 Acetaminophen 325 Mg Tablet PO 650 mg Q6H PRN Administration Pain, Mild (Pain Scale 1-3) Furosemide 80 mg 10/26/20 21:00 10/27/20 09:39 Furosemide 40 Mg Tablet PO 80 mg BID JERRELL Administration Protocol Heparin Sodium/Sodium Chloride 25,000 unit in 250 mls @ 0 mls/hr 10/25/20 17:00 10/26/20 16:35 IVCONT 12 units/kg/hr .Q0M JERRELL 9.91 mls/hr Administration Protocol Per Protocol Levothyroxine Sodium 175 mcg 10/26/20 09:00 10/27/20 05:58 Levothyroxine Sodium 175 Mcg Tablet PO 175 mcg DAILY@0600 [facility] Administration Non-Formulary Medication 25 mg 10/26/20 09:00 Eplerenone PO DAILY [facility] Ondansetron HCl 4 mg 10/25/20 17:37 Ondansetron Hcl 4 Mg/2 Ml Vial IVPUSH Q8H PRN Nausea and Vomiting Oxycodone HCl 5 mg 10/26/20 07:37 10/26/20 11:47 Oxycodone Hcl Immed Release 5 Mg Tablet PO 5 mg Q4H PRN Administration Pain, Mild (Pain Scale 1-3) Sodium Chloride 3 ml 10/26/20 00:00 10/27/20 09:39 0.9 % Sodium Chloride Flush 3 Ml Syringe IVFLUSH 3 ml QSHIFT JERRELL Administration Time Spent With Patient Time: Total time spent is greater than 50% in coordination of care (as documented) at patient's floor/unit and/or counseling patient: Time with patient: 15 - 24 minutes
--- NOTE | 2020-10-27 14:52 | PM.DS ---
DS: Providers Provider Date of Service: 10/27/20 Date of admission: 10/25/20 17:37 Primary care physician: Yesica Kay MD Consults: 10/25/20 17:37 Consult to Cardiology Routine Consulting Provider: Jairo Valdez Reason for consultation: PE, Has provider been notified: No 10/25/20 18:34 Consult to Hematology / Oncology Routine Consulting Provider: Britany Merchant Reason for consultation: PE. hx lymphoma, anemia Has provider been notified: No DS: Diagnosis Discharge Diagnosis (1) Congestive heart failure: Status: Acute (2) Non-rheumatic aortic stenosis: Status: Acute (3) Bilateral pulmonary embolism: Status: Acute DS: Medications Discharge Medications Home Medications: Previous Rx's Medication Instructions Recorded aspirin 81 mg tablet,delayed 81 mg PO DAILY #90 tab 07/09/20 release eplerenone 25 mg tablet 25 mg PO DAILY #90 tab 07/09/20 levothyroxine 175 mcg tablet 175 mcg PO DAILY 90 Days #90 tab 07/15/20 furosemide 20 mg tablet 60 mg PO BID 90 Days #540 tab 09/23/20 heparin(porcine) in 0.45% NaCl 25,000 unit CONTINUOUS IV INFUSION 10/27/20 .Q0M #0 ml DS: Summary Hospital Course Hospital Course: patient was admitted for sob due to acute on chronic chf with severe and reduced EF with some recovery and pulmonary embolism and anemia and close monitoring while on heparin infusion. he received 1 unit prbc and hgb improved appropriately and maintained around 9 while on heparin. he was evaluated by cardiology who recommended increasing lasix from 60mg bid to 80mg bid and to transfer to [facility] [place] his scheduled TAVR on 10/29/18, will remain inpatient so he can have minimal interruption of his anticoagulation. Time Spent with Patient Time attestation: Total time spent providing and/or coordinating discharge services: Discharge coordination time: Greater than 30 minutes Physical Exam Vital Signs: Vital Signs: Last Vital Signs Temp 97.8 F 10/27/20 12:00 Pulse 107 H 10/27/20 12:00 Resp 20 10/27/20 12:00 BP 104/55 L 10/27/20 12:00 Pulse Ox 100 10/27/20 12:00 Body Mass Index 30.2 General: AO X 3, no acute distress, frail Resp: diminished CVS: S1,S2,RRR, murmure GI: soft, non tender, non distended Neuro: motor grossly intact Psych: appropriate affect DS: Data Data Completed and Pending Labs on day of discharge: Laboratory Results - last 24 hr 10/26/20 10/27/20 10/27/20 14:48 06:07 06:07 WBC 9.2 RBC 3.99 L Hgb 9.0 L Hct 29.7 L MCV 74.4 L MCH 22.6 L MCHC 30.3 L RDW 19.5 H Plt Count 498 H MPV 10.6 Immature Gran % (Auto) 0.4 Neut % (Auto) 69.7 Lymph % (Auto) 9.8 L Schleicher % (Auto) 16.2 H Eos % (Auto) 2.9 Baso % (Auto) 1.0 Lymph # (Auto) 0.9 L Schleicher # (Auto) 1.5 H Eos # (Auto) 0.3 Baso # (Auto) 0.1 Abs Immat Gran (auto) 0.04 H Absolute Neuts (auto) 6.4 Absolute Nucleated RBC 0.030 H Nucleated RBC % (auto) 0.3 H PTT (Heparin Protocol) 67.0 Sodium 139 Potassium 3.8 Chloride 101 Carbon Dioxide 30 H Anion Gap 12 BUN 13 Creatinine 0.74 Estim Creat Clear Calc 131.5 Estimated GFR > 60 Fasting Glucose 89 Calcium 8.2 L 10/27/20 06:07 WBC RBC Hgb Hct MCV MCH MCHC RDW Plt Count MPV Immature Gran % (Auto) Neut % (Auto) Lymph % (Auto) Schleicher % (Auto) Eos % (Auto) Baso % (Auto) Lymph # (Auto) Schleicher # (Auto) Eos # (Auto) Baso # (Auto) Abs Immat Gran (auto) Absolute Neuts (auto) Absolute Nucleated RBC Nucleated RBC % (auto) PTT (Heparin Protocol) 65.6 Sodium Potassium Chloride Carbon Dioxide Anion Gap BUN Creatinine Estim Creat Clear Calc Estimated GFR Fasting Glucose Calcium Discharge Plan Discharge Patient Disposition: Xfer Acute Care Hospital Discharge Diagnosis: pe Referrals: Yesica Burden MD [Primary Care Provider] - 1 Week Discharge Medications: New heparin(porcine) in 0.45% NaCl 25,000 unit/250 mL Parenteral Solution 25,000 unit continuous IV infusion .Q0M Qty: 0 RF: 0 Continued furosemide [Lasix] 20 mg tablet 60 mg PO BID 90 Days Qty: 540 RF: 1 levothyroxine 175 mcg tablet 175 mcg PO DAILY 90 Days Qty: 90 RF: 1 eplerenone 25 mg tablet 25 mg PO DAILY Qty: 90 RF: 4 aspirin 81 mg tablet,delayed release (DR/EC) 81 mg PO DAILY Qty: 90 RF: 4 Discharge Orders: Discharge Order (Routine); Ordered 10/27/20 Ordered By: Gary Oh Activity on Discharge: As tolerated Stand Alone Forms: Patient Portal Discharge page Care Plan Goals: manage pe and as Health Concerns: pe, Plan of Treatment: transfer to [facility] for [place] and continued heparin Assessment: see above
--- NOTE | 2020-10-27 15:20 | MHC.CM.PN ---
Male 59 DX Aortic stenosis PE DP ACUTE TX to [facility] via ALS.
[2020-10-27 15:34] VITALS: BP 97/56; PULSE 96; RESP 19; TEMP 36.8; O2SAT 98
[2020-10-27] MEDS: Heparin Sodium,Porcine/1/2NS 25,000 UNIT/250 ML IV.SOLN 9.91 UNIT IVCONT (18:38)
== END 2020-10-27 18:56 | disposition short-term general hospital (02) | DRG 134 ==
LOC: HO.ED 17:08 → HO.EDOVER 17:45 → HO.IMC 18:53
PROVIDERS: Internal Medicine Medical Oncology; Nurse Practitioner Acute Care; Physician Assistant Medical; Admitting Provider Internal Medicine; Emergency Provider Emergency Medicine; PCP Internal Medicine; Visit Provider Internal Medicine
DX: I26.99 Other pulmonary embolism without acute cor pulmonale (principal); I50.33 Acute on chronic diastolic (congestive) heart failure; I95.9 Hypotension, unspecified; Q85.8 Other phakomatoses, not elsewhere classified; I25.5 Ischemic cardiomyopathy; D64.9 Anemia, unspecified; Z85.71 Personal history of Hodgkin lymphoma; E89.0 Postprocedural hypothyroidism; I35.0 Nonrheumatic aortic (valve) stenosis; Z20.822 Contact with and (suspected) exposure to COVID-19; Z79.890 Hormone replacement therapy; Z95.0 Presence of cardiac pacemaker; Z79.82 Long term (current) use of aspirin; Z79.899 Other long term (current) drug therapy
CPT/HCPCS: 0241U; 36415; 71046; 71275; 80048; 80053; 81003; 82272; 82607; 83540; 83615; 83735; 83880; 84484; 85014; 85018; 85025; 85610; 85730; 86850; 86900; 86923; 93005; 93970; 96374; 96375; 99285; 99291; J1170; J1940; J2060; J2270; P9016; Q9967

== ENCOUNTER → 2020-11-25 15:14 | Outpatient (BNVA) | payer OTHER, SELFPAY | PROVIDERS: PCP Internal Medicine; Referring Provider Internal Medicine; Visit Provider Internal Medicine ==

== ENCOUNTER → 2020-12-18 07:48 | Outpatient (REF) | payer OTHER, SELFPAY ==
--- NOTE | 2020-12-18 07:50 | CA_ITS ---
Transthoracic Echocardiogram Patient (Last, First, Middle): Enrique Monahan, Gender: Male Date of : 1960 Age: 60 Procedure Date: 12/18/2020 Procedure Type: Transthoracic Echocardiogram Location: OP Height: 180.3 cm Weight: 76.66 kg BSA: 1.96 m2 Heart Rate: bpm BP: 110 / 56 mmHg School Director: GRANT Referring MD: Hamilton Wyman MD Senior Telecommunications Engineer: Eric Javier MD Symptoms: Z95.2 - Presence of prosthetic heart valve Study Quality: Fair ECG Rhythm: Ventriculary paced rhythm Conclusions: - 1. Normal LV systolic function with pseudonormal filling pattern 2. Normally function bioprosthetic aortic valve with mean gradient of 11.5 mm of mercury 3. Normal measured RV systolic pressure with mildly elevated right atrial pressures 4. No gross pericardial effusion Findings Left Ventricle Normal left ventricular size, thickness, and systolic function. The visually estimated ejection fraction is between 55-60%. There is paradoxical septal motion consistent with a right ventricular pacemaker. Spectral Doppler is indicative of a pseudonormal filling pattern. Right Ventricle Normal right ventricular cavity size and systolic function. There is a pacemaker wire seen in the right ventricle. Atria The left atrium is likely dilated. There is no evidence of interatrial shunt. The right atrium is normal in size. Aortic Valve A bioprosthetic aortic valve is present. The prosthetic aortic valve appears to be functioning normally. The mean gradient is 12 mmHg. There is no aortic valve regurgitation. Mitral Valve Normal mitral valve structure and function. There is trace mitral valve regurgitation. There is no mitral valve stenosis. Pulmonic Valve The pulmonic valve was not well visualized. Tricuspid Valve Likely normal tricuspid valve structure and function. There is trace tricuspid valve regurgitation. The right ventricular systolic pressure is normal. The right ventricular systolic pressure is 28 mmHg. Mildly elevated right atrial pressure. There is no evidence of pulmonary hypertension. Great Vessels All visible segments of the aorta are normal in size. The pulmonary artery was not well visualized. Venous The inferior vena cava is mildly dilated and collapses less than 50% with inspiration. Pericardium/Pleural There is no evidence of pericardial effusion. Prior Study Comparison Changes noted compared to prior study dated: 09/16/2020. Bioprosthetic aortic valve is [facility]enin [facility] [place] severe aortic stenosis. Mean gradient of 11.5 mm of mercury. Measurements 2D Linear Measurements IVSd: 0.77 0.6-0.9/0.6-1.0 cm LVIDd: 5.91 3.9-5.3/4.2-5.9 cm LVIDs: 4.02 2.0-3.6 cm LVPWd: 0.76 0.7-1.1 cm Ao Root: 2.94 2.1-3.5 cm LV Mass: 212.49 67-162/88-224 g LVOT Diam: 2.04 3.0+(-)1.3 cm Mitral Valve MV Pk E: 1.26 MV PK A: 0.81 MV Decel Time: 107.30 E/A: 1.[address] [place]: 11.74 Aortic Valve AoV Pk Sixto: 2.29 AoV Mn Sixto: 1.60 AoV VTI: 0.38 AoV Pk Grad: 20.98 Aov Mn Grad: 11.57 LVOT LVOT Pk Sixto: 1.29 LVOT Mn Sixto: 0.79 LVOT VTI: 0.24 LVOT Pk Grad: 6.64 LVOT Mn Grad: 3.09 LVOT Diam: 2.04 LVOT Area: 3.28 Diastolic Function MV Pk E: 1.26 MV Pk A: 0.81 E/A: 1.55 Tricuspid Valve TR Pk Sixto: 2.21 TR Pk Grad: 19.56 RA Press: 8.00 RVSP: 28.00 Great Vessels Aorta Ao Root-2D: 2.94 2.0-3.7 cm Updated in Other Vendor System with Status of Final Eric Javier MD electronically signed on 12/20/2020 1:04:50 PM with status of Final
== END ==
LOC: HO.CARD 07:48
PROVIDERS: Visit Provider Internal Medicine
DX: Z95.2 Presence of prosthetic heart valve (principal)
CPT/HCPCS: 93306

== ENCOUNTER → 2020-12-21 14:11 | Outpatient (BNVA) | payer OTHER, SELFPAY | PROVIDERS: PCP Internal Medicine; Visit Provider Internal Medicine ==

== ENCOUNTER 2021-01-13 07:32 | Inpatient (IN) | payer OTHER, SELFPAY ==
[2021-01-13] VITALS (9 sets, daily range): BP systolic 93–121; BP diastolic 54–68; PULSE 88–105; RESP 10–22; TEMP 36.4–37.3; O2SAT 98–100; BMI 23.1
--- NOTE | ~2021-01-13 | US_ITS ---
EXAMINATION: US VENOUS ULTRASOUND WITH DOPPLER LOWER EXTREMITY, BILATERAL CLINICAL INFORMATION: Swelling COMPARISON: Previous exams most recent October 2020 TECHNIQUE: Ultrasound of the deep veins is performed from the hip to the calf with compression sonography and color and pulse Doppler assessment. Spectral analysis with color-flow imaging is performed. FINDINGS: RIGHT: There is normal venous compression and respiratory variation and augmented flow. The visualized common femoral vein, superficial femoral vein, profunda femoral vein, popliteal vein, and the trifurcation region shows no evidence of deep venous thrombosis. There is no significant popliteal fossa cyst. LEFT: There is normal venous compression and respiratory variation and augmented flow. The visualized common femoral vein, superficial femoral vein, profunda femoral vein, popliteal vein, and the trifurcation region shows no evidence of deep venous thrombosis. There is no significant popliteal fossa cyst. US/US venous duplex LE BI IMPRESSION: No DVT demonstrated in the bilateral lower extremity.
--- NOTE | ~2021-01-13 | CT_ITS ---
EXAMINATION: CT HEAD WITHOUT CONTRAST CLINICAL INFORMATION: Dizziness COMPARISON: None TECHNIQUE: Contiguous axial imaging was performed from the skull base to vertex without intravenous administration of contrast. Additional 2-D coronal and sagittal reformatted images are generated on the CT workstation and uploaded to PACS. This CT examination was performed using dose optimization techniques as appropriate, variously including the following: *Automated exposure control *Adjustment of mA and/or kV according to patient size (this includes techniques or standardized protocols for targeted exams where dose is matched to indication/reason for exam; i.e. extremities or head) *Use of iterative reconstruction technique DLP: 869 mGy-cm FINDINGS: There is no intracranial hemorrhage, hematoma, or extra-axial fluid collection. The ventricles are normal in size. No hydrocephalus. No midline shift. There is a small cyst inferior right basal ganglia 0.8 x 0.6 cm likely prominent perivascular Virchow-Jonah space. There is no mass effect or edema. No definite lacunar infarct. The pugh-white matter differentiation otherwise appears symmetric. There is no visible acute territorial infarct or mass lesion. The calvarium appears intact. There is no pneumocephalus or orbital emphysema. There are no air-fluid levels in the sinuses or middle ears or mastoids. There is mild mucosal thickening posterior right sphenoid. The mastoids are underpneumatized and the mastoid air cells present appear opacified. There is also some mild opacification in both middle ears. No visible bony destructive process or sclerosis. CT/CT head/brain wo con IMPRESSION: 1. No acute intracranial abnormality. 2. Probable prominent perivascular for Virchow-Jonah space inferior right basal ganglia under 1 cm. No mass effect or edema. 3. Opacification in bilateral middle ear cavities and mastoids. No air-fluid levels.
--- NOTE | ~2021-01-13 | XR_ITS ---
EXAMINATION: XR CHEST CLINICAL INFORMATION: Dizziness, weakness, cough, cold. COMPARISON: Chest radiographs 10/25/2020, 09/15/2020, 06/29/2020; CTA chest 10/25/2020 TECHNIQUE: Portable upright AP view of the chest was obtained. FINDINGS: There is chronic right basilar effusion, slightly increased from prior exams with some fluid tracking in the peripheral right minor fissure. There is subsegmental atelectasis right base and some subtle ground glass opacity, likely early infiltrate. The left lung is clear. The vascularity is normal. The left costophrenic sulcus is well-defined. There is multilead AICD again seen. TAVR present. The heart is normal in size. The hilar and mediastinal contours and bony structures are stable. Again, there are surgical clips left subphrenic lesion. Chronic benign bulky subpleural calcification again noted left anterior medial apex. XR/XR chest 1V IMPRESSION: Chronic right effusion slightly increased with new subtle groundglass opacity and subsegmental atelectasis right base. Left lung clear.
--- NOTE | ~2021-01-13 | CT_ITS ---
EXAMINATION: CT ANGIOGRAM OF THE CHEST WITH AND WITHOUT CONTRAST (CT PULMONARY ANGIOGRAM FOR PE) CLINICAL INFORMATION: Reason for Exam Pneumonia? PE? COMPARISON: Chest radiographs 01/13/2021. CTA chest 10/25/2020, bilateral leg venous ultrasound 01/13/2021. TECHNIQUE: Prior to contrast administration, noncontrast localization images were obtained. Subsequently, multidetector volumetric imaging was performed from the thoracic inlet to below the diaphragms following the administration of 65 mL Omnipaque 350 intravenous contrast. Sagittal, coronal, and MIP oblique sagittal reformatted images were obtained on the CT workstation, uploaded to PACS, and reviewed. This CT examination was performed using dose optimization techniques as appropriate, variously including the following: *Automated exposure control *Adjustment of mA and/or kV according to patient size (this includes techniques or standardized protocols for targeted exams where dose is matched to indication/reason for exam; i.e. extremities or head) *Use of iterative reconstruction technique Total exam dose-length product 314 mGy-cm FINDINGS: QUALITY OF STUDY/CONTRAST BOLUS: Satisfactory. PULMONARY ARTERIES: There is no acute pulmonary embolism. Previously described segmental filling defects noted on CTA 10/25/2020 are no longer demonstrated. There is no focal pruning of vessels or definite strands or webs. Pulmonary artery normal in caliber. THORACIC AORTA: Prior TAVR. No thoracic aortic enlargement or dissection. LUNG: Scattered subsegmental atelectasis anterior medial right upper lobe and posterior basal right lower lobe. Left lung clear. No pneumothorax. No lobar or segmental airspace consolidation. PLEURA: Moderate right effusion slightly decreased from prior CT for 2020. No pleural thickening or pneumothorax. MEDIASTINUM: Normal heart size. No pericardial effusion. No hilar or mediastinal lymphadenopathy. No evidence of septal bowing or right heart strain. Multilead AICD. CHEST WALL/AXILLA: No axillary or internal mammary lymphadenopathy. OSSEOUS STRUCTURES: No acute or suspicious osseous abnormality. UPPER ABDOMEN: Clips left upper quadrant, prior splenectomy. No reflux of contrast into the hepatic veins to suggest elevated right heart pressures. CT/CT angio chest PE protocol IMPRESSION: 1. No acute pulmonary embolism. Prior segmental filling defects resolved since exam 10/25/2020. 2. Moderate right effusion slightly decreased since prior exam 10/25/2020. 3. Subsegmental atelectasis anterior medial right upper lobe and right posterior basal region. No segmental or lobar airspace consolidation. No pneumothorax. VTE: negative
--- NOTE | 2021-01-13 08:17 | ECG_ITS ---
Test Reason : UPPER RESPIRATORY Blood Pressure : / mmHG Vent. Rate : 094 BPM Atrial Rate : 094 BPM P-R Int : 140 ms QRS Dur : 144 ms QT Int : 440 ms P-R-T Axes : 061 248 051 degrees QTc Int : 550 ms Atrial-sensed ventricular-paced rhythm Abnormal ECG When compared with ECG of 25-OCT-2020 11:02, Vent. rate has decreased BY 3 BPM Referred By: Ten Escamilla Electronically Signed By:IVANNA ORDONEZ
[2021-01-13 08:46] LABS: MANUAL DIFF FLAG NO
[2021-01-13 08:50] LABS: Glucose Urine UA NEG (NEG); Leukocyte Esterase Urine NEG (NEG); Nitrite Urine NEG (NEG); PH 6.5 (5.0-8.0); Urine Blood NEG (NEG); Urine Ketones NEG (NEG); Urine Protein NEG (NEG-TRACE)
[2021-01-13 08:51] LABS: Appearance Urine CLEAR; Color Urine YELLOW
[2021-01-13 08:53] LABS: Eosinophils Percent Auto 0.3 % (0-4); Mean Corpuscular Hemoglobin 19.4 pg (27.0-33.0); Mean Platelet Volume 10.1 fL (9.4-12.4); Red Cell Distribution Width 19.9 % (11.0-16.0)
[2021-01-13 08:57] LABS: Basophils Absolute Auto 0.1 X10*3/uL (0.0-0.2); Basophils Percent Auto 0.7 % (0-2); Hematocrit 22.5 % (42-52); Imm Gran Abs Auto 0.08 X10*3/uL (0.00-0.03); Imm Gran Pct Auto 0.7 % (0.0-0.4); Lymphocytes Absolute Auto 0.3 X10*3/uL (1.2-4.9); Lymphocytes Percent Auto 2.6 % (20-40); Mean Corpuscular HGB Conc 29.3 g/dl (31.0-36.0); Mean Corpuscular Volume 66.2 fL (80-98); Monocytes Absolute Auto 1.2 X10*3/uL (0.1-1.2); Monocytes Percent Auto 10.8 % (2-11); Neutrophils Absolute Auto 9.6 X10*3/uL (2.0-8.3); Neutrophils Percent Auto 84.9 % (45-73); Platelet Count 419 X10*3/uL (160-400)
[2021-01-13 08:58] LABS: INTERNATIONAL NORM RATIO 2.4 (0.9-1.1); Prothrombin Time 27.3 SEC (9.9-13.0)
[2021-01-13 09:01] LABS: Partial Thromboplastin Time 59.7 SEC (24.1-38.0)
[2021-01-13 09:07] LABS: NRBC Pct Auto 2.7 /100WBC (0.0-0.2)
[2021-01-13 09:10] LABS: White Blood Count 11.3 X10*3/uL (4.8-10.8)
[2021-01-13 09:12] LABS: Alanine Aminotransferase 9 U/L (0-40); Albumin Level 3.6 g/dL (3.5-5.0); Alkaline Phosphatase 65 U/L (39-117); Anion Gap 16 (12-20); Aspartate Amino Transferase 17 U/L (5-37); Bilirubin Direct 0.3 mg/dL (0.0-0.5); Bilirubin Total 0.8 mg/dL (0.0-1.0); Blood Urea Nitrogen 19 mg/dL (9-16); Calcium 8.9 mg/dL (8.4-10.2); Carbon Dioxide 24 mmol/L (22-29); Chloride 100 mmol/L (96-108); Creatinine Clr Calc Pharmacy 105.4; Estimated Glomerular Filt Rate > 60; Glucose Random 99 mg/dL (60-115); Lipase 55 U/L (8-78); Potassium 3.9 mmol/L (3.3-5.1); Sodium 136 mmol/L (135-145); Total Protein 6.7 g/dL (6.5-8.0)
[2021-01-13 09:15] LABS: Troponin-I High Sensitivity < 3.5 ng/L (<3.5-35.0)
[2021-01-13 09:30] LABS: OBS Int Ctl Valid YES; OBS1 POSITIVE (NEGATIVE)
--- NOTE | 2021-01-13 09:35 | ED_ITS ---
HPI - General Adult General Chief complaint: Upper Respiratory Symptoms <IRIS Hager Last Filed: 01/13/21 14:10> Stated complaint: SOB <IRIS Hager Last Filed: 01/13/21 14:10> Time Seen by Provider: 01/13/21 08:05 <IRIS Hager Last Filed: 01/13/21 14:10> Source: patient <IRIS Hager Last Filed: 01/13/21 14:10> Mode of arrival: ambulatory <IRIS Hager Last Filed: 01/13/21 14:10> Limitations: no limitations <IRIS Hager Last Filed: 01/13/21 14:10> History of Present Illness HPI narrative: Patient presents to the ED for shortness of breath, dizziness, and swelling of bilateral ankle and feet. Patient states also cough. Patient states feeling cold and weak. Patient states history of anemia and has been transfused in the past. Patient states cough with yellow phlegm. Patient denies any chest pain. Patient states having chills. patient states symptoms started since this morning <IRIS Hager Last Filed: 01/13/21 14:10> Related Data Home medications: Home Medications Medication Instructions Recorded Confirmed apixaban 5 mg tablet 5 mg PO BID 11/09/20 01/13/21 furosemide 40 mg tablet 40 mg PO BID tab 12/21/20 01/13/21 Previous Rx's Medication Instructions Recorded aspirin 81 mg tablet,delayed 81 mg PO DAILY #90 tab 07/09/20 release eplerenone 25 mg tablet 25 mg PO DAILY #90 tab 07/09/20 levothyroxine 175 mcg tablet 175 mcg PO DAILY 90 Days #90 tab 07/15/20 <IRIS Hager Last Filed: 01/13/21 14:10> Allergies/adverse reactions: Allergies Allergy/AdvReac Type Severity Reaction Status Date / Time No Known Allergies Allergy Verified 12/21/20 14:29 [No Known Allergies*] <IRIS Hager Last Filed: 01/13/21 14:10> Review of Systems Review of Systems: Yes all other systems are reviewed and are negative <IRIS Hager Last Filed: 01/13/21 14:10> Constitutional: Constitutional: Reports as per HPI, Reports no additional constitutional complaints, Reports chills and Reports fatigue <IRIS Hager Last Filed: 01/13/21 14:10> Eyes: Eyes: Reports as per HPI and Reports no additional eye complaints <IRIS Hager Last Filed: 01/13/21 14:10> ENT: Reports system reviewed and no additional complaints, except as documented and Reports as per HPI <IRIS Hager Last Filed: 01/13/21 14:10> Cardiovascular: Cardiovascular: Reports as per HPI, Reports no additional cardiovascular complaints and Reports dyspnea <IRIS Hager Last Filed: 01/13/21 14:10> Respiratory: Respiratory: Reports as per HPI, Reports no additional respiratory complaints, Reports cough and Reports dyspnea <IRIS Hager Last Filed: 01/13/21 14:10> Gastrointestinal: Gastrointestinal: Reports as per HPI and Reports no additional gastrointestinal complaints <IRIS Hager Last Filed: 01/13/21 14:10> Genitourinary: Genitourinary: Reports no additional male genitourinary complaints and Reports as per HPI <IRIS Hager Last Filed: 01/13/21 14:10> Musculoskeletal: Musculoskeletal: Reports no additional musculoskeletal complaints and Reports as per HPI <IRIS Hager Last Filed: 01/13/21 14:10> Comments: bilateral ankle and feet pain /swelling <IRIS Hager Last Filed: 01/13/21 14:10> Neurologic: Reports system reviewed and no additional complaints, except as documented and Reports as per HPI <IRIS Hager Last Filed: 01/13/21 14:10> Psychiatric: Psychiatric: Reports no additional psychiatric complaints and Reports as per HPI <IRIS Hager Last Filed: 01/13/21 14:10> Endocrine: Endocrine: Reports fatigue <IRIS Hager Last Filed: 01/13/21 14:10> PMFSH Past Medical History Medical History: Medical History (Updated 01/13/21 @ 14:09 by IRIS Hager) Aortic stenosis, severe Cardiac resynchronization therapy defibrillator ([employer]-D) in place Complete heart block HFrEF (heart failure with reduced ejection fraction) Hodgkins lymphoma Hypocalcemia Hypotension (arterial) Hypothyroid LBBB (left bundle branch block) NICM (nonischemic cardiomyopathy) Non-rheumatic aortic stenosis Pacemaker Pulmonary embolism <IRIS Hager - Last Filed: 01/13/21 14:10> Surgical History: Surgical History H/O splenectomy History of appendectomy History of cardiac pacemaker S/P TAVR (transcatheter aortic valve replacement) (~10/29/20) <IRIS Hager - Last Filed: 01/13/21 14:10> Family History Family History: Family History Father No problems noted. Mother No problems noted. <IRIS Hager - Last Filed: 01/13/21 14:10> Social History Social History: Social History (Updated 12/21/20 @ 14:28 by YARI Castillo) Household Members: Family Housing: House Do you presently have visiting nurse or other home services: No Alcohol intake: never Patient Tobacco Use Status: Never used Tobacco Advance Directives: No Advance Directives Information Provided: Yes service: Yes Current occupational status: employed <IRIS Hager - Last Filed: 01/13/21 14:10> Physical Exam Vital Signs: Vital Signs: Last Vital Signs Temp 97.9 F 01/13/21 12:53 Pulse 91 01/13/21 12:53 Resp 10 L 01/13/21 12:53 BP 98/54 L 01/13/21 12:53 Pulse Ox 99 01/13/21 12:53 Body Mass Index 23.1 <IRIS Hager - Last Filed: 01/13/21 14:10> Vital Signs: Last Vital Signs Temp 97.9 F 01/13/21 12:53 Pulse 91 01/13/21 12:53 Resp 10 L 01/13/21 12:53 BP 98/54 L 01/13/21 12:53 Pulse Ox 99 01/13/21 12:53 Body Mass Index 23.1 <Mainor Dobson MD - Last Filed: 01/13/21 12:54> Const: General: cooperative, healthy appearing, comfortable, no acute distress, well developed, alert and awake <Ten AndiIRIS Remi Last Filed: 01/13/21 14:10> Orientation/consciousness: patient oriented x3 <Ten AndiIRIS Remi Last Filed: 01/13/21 14:10> HENMT: Head: Yes normal to inspection, Yes No palpable skull fracture present, Yes normocephalic and Yes atraumatic <Ten Andi, PA Remi Last Filed: 01/13/21 14:10> Eyes: General: appearance normal, both eyes and all related structures <Ten AndiIRIS Remi Last Filed: 01/13/21 14:10> Neck: Neck: Yes normal visual inspection, Yes full ROM, Yes no lymphadenopathy, Yes no meningeal signs, Yes trachea midline, Yes supple and No tender <Ten AndiIRIS Remi Last Filed: 01/13/21 14:10> Chest: Chest palpation & inspection: normal inspection of the chest and normal palpation of entire chest wall <Ten Andi, PA Remi Last Filed: 01/13/21 14:10> Resp: Effort & Inspection: normal respiratory effort and able to speak in complete sentences <Ten Andi, PA Remi Last Filed: 01/13/21 14:10> Auscultation: clear to auscultation bilaterally <Ten Andi, PA Remi Last Filed: 01/13/21 14:10> Cardio: Jugular venous distension: no JVD <Ten AndiIRIS Remi Last Filed: 01/13/21 14:10> Heart sounds: S1 normal heart sound present and S2 normal heart sound present <Ten Andi, PA Remi Last Filed: 01/13/21 14:10> GI: Other: rectal exam: negative for petros blood, black stool, or melena. Stool is brown <Ten Andi, PA Remi Last Filed: 01/13/21 14:10> Inspection: Yes normal to inspection and No abdominal wall ecchymosis <Ten Andi, PA Remi Last Filed: 01/13/21 14:10> Palpation (GI): Soft to palpation, not firm, nontender, no guarding and not rigid <Ten Andi, PA Remi Last Filed: 01/13/21 14:10> : General: No CVA tenderness and Yes no CVA tenderness <IRIS Hager Remi Last Filed: 01/13/21 14:10> Back/Spine/Pelvis: Back: no CVA tenderness, No CVA tenderness and No back tenderness <IRIS Hager Last Filed: 01/13/21 14:10> Skin: Other: skin is cold and clammy <IRIS Hager Last Filed: 01/13/21 14:10> General skin exam: no rashes or lesions noted and elasticity normal <IRIS Hager Last Filed: 01/13/21 14:10> Neuro: General: patient oriented x3, gait normal, no meningeal signs and CN's II-XI intact bilaterally <IRIS Hager Last Filed: 01/13/21 14:10> Cranial nerves: Yes CN's II-XII intact bilaterally <IRIS Hager Last Filed: 01/13/21 14:10> Extrem: Other: lower extremity swelling of ankle and foot, but negative for pitting edema <IRIS Hager Last Filed: 01/13/21 14:10> General: Yes normal to inspection and Yes full ROM <Ten Andi, PA Last Filed: 01/13/21 14:10> Psych: Appearance: grossly normal, well kempt and not disheveled <IRIS Hager Last Filed: 01/13/21 14:10> Course Course Course Narrative: will look for infectious source. Negative for any neuro deficits but was sent for head CT due to dizziness. Chest x-ray will be ordered to check for pneumonia. UA will be checked for UTI. type and screen ordered <IRIS Hager Last Filed: 01/13/21 14:10> Reevaluation(s) Reevaluation #1: patient H&H less than 7. patient is agreeable to verbal consent for blood. Troponin negative. EKG negative for STEMI. UA negative for UTI. Chest x-ray shows chronic right pleural effusion with possible new opacity. Was sent for chest CT to confirm pneumonia. Blood cells ordered. Patient presently receiving fluids at a slow pace due to history of CHF. <IRIS Hager Last Filed: 01/13/21 14:10> I have discussed the case and management with the ARTEMIO <Mainor Dobson MD - Last Filed: 01/13/21 12:54> Time: 09:51 <IRIS Hager - Last Filed: 01/13/21 14:10> Reevaluation #2: written consent signed by patient for blood. Waiting for chest CT a results. Contacted Dr. Portillo of Gastroenterology for consult for possible GI bleed. Patient is on Eliquis. Waiting for contact <IRIS Hager - Last Filed: 01/13/21 14:10> Time: 11:33 <IRIS Hager - Last Filed: 01/13/21 14:10> Reevaluation #3: Chest CTA negative for PE or pnuemonia. patient hypotensive and receiving blood. Dr. Portillo was made aware and states patient is not actively bleeding. There is no melena petros or blood so patient could be stabilized with blood products and he will evaluate patient and the following erp implementation consultant service. <IRIS Hager - Last Filed: 01/13/21 14:10> Time: 13:23 <IRIS Hager - Last Filed: 01/13/21 14:10> Additional Reevaluation(s): patient admitted to hospitalist. <IRIS Hager - Last Filed: 01/13/21 14:10> Medical Decision Making MDM Narrative Medical decision making narrative: Symptomatic anemia. <IRIS Hager - Last Filed: 01/13/21 14:10> Lab Data Result diagrams: : 01/13/21 08:39 01/13/21 08:40 <IRIS Hager - Last Filed: 01/13/21 14:10> Labs: Lab Results 01/13/21 01/13/21 01/13/21 Range/Units 08:39 08:39 08:39 WBC 11.3 H (4.8-10.8) X10*3/uL RBC 3.40 L (4.60-5.80) X10*6/uL Hgb 6.6 L* D (14.0-18.0) g/dl Hct 22.5 L D (42-52) % MCV 66.2 L (80-98) fL MCH 19.4 L (27.0-33.0) pg MCHC 29.3 L (31.0-36.0) g/dl RDW 19.9 H (11.0-16.0) % Plt Count 419 H (160-400) X10*3/uL MPV 10.1 (9.4-12.4) fL Immature Gran % (Auto) 0.7 H (0.0-0.4) % Neut % (Auto) 84.9 H (45-73) % Lymph % (Auto) 2.6 L (20-40) % [place] % (Auto) 10.8 (2-11) % Eos % (Auto) 0.3 (0-4) % Baso % (Auto) 0.7 (0-2) % Lymph # (Auto) 0.3 L (1.2-4.9) X10*3/uL [place] # (Auto) 1.2 (0.1-1.2) X10*3/uL Eos # (Auto) 0.0 (0.0-0.4) X10*3/uL Baso # (Auto) 0.1 (0.0-0.2) X10*3/uL Abs Immat Gran (auto) 0.08 H (0.00-0.03) X10*3/uL Absolute Neuts (auto) 9.6 H (2.0-8.3) X10*3/uL Absolute Nucleated RBC 0.300 H (0.0-0.012) X10*3/uL Nucleated RBC % (auto) 2.7 H (0.0-0.2) /100WBC PT (9.9-13.0) SEC INR (0.9-1.1) APTT (24.1-38.0) SEC Sodium (135-145) mmol/L Potassium (3.3-5.1) mmol/L Chloride (96-108) mmol/L Carbon Dioxide (22-29) mmol/L Anion Gap (12-20) BUN (9-16) mg/dL Creatinine (0.5-1.4) mg/dL Estim Creat Clear Calc Estimated GFR Random Glucose (60-115) mg/dL Calcium (8.4-10.2) mg/dL Magnesium (1.6-2.6) mg/dL Total Bilirubin (0.0-1.0) mg/dL Direct Bilirubin (0.0-0.5) mg/dL AST (5-37) U/L ALT (0-40) U/L Alkaline Phosphatase (39-117) U/L Troponin I High Sens < 3.5 (<3.5-35.0) ng/L B-Natriuretic Peptide 110 H (<100) pg/mL Total Protein (6.5-8.0) g/dL Albumin (3.5-5.0) g/dL Lipase (8-78) U/L Urine Color Urine Appearance Urine pH (5.0-8.0) Ur Specific [place] (1.005-1.025) Urine Protein (NEG-TRACE) MG/DL Urine Glucose (UA) (NEG) MG/DL Urine Ketones (NEG) MG/DL Urine Blood (NEG) Urine Nitrite (NEG) Ur Leukocyte Esterase (NEG) Stool Occult Blood (NEGATIVE) Coronavirus (PCR) (Negative) Influenza Type A (PCR) (Negative) Influenza Type B (PCR) (Negative) RSV RNA Qual (PCR) (Negative) Blood Type Antibody Screen Crossmatch 01/13/21 01/13/21 01/13/21 Range/Units 08:39 08:40 08:40 WBC (4.8-10.8) X10*3/uL RBC (4.60-5.80) X10*6/uL Hgb (14.0-18.0) g/dl Hct (42-52) % MCV (80-98) fL MCH (27.0-33.0) pg MCHC (31.0-36.0) g/dl RDW (11.0-16.0) % Plt Count (160-400) X10*3/uL MPV (9.4-12.4) fL Immature Gran % (Auto) (0.0-0.4) % Neut % (Auto) (45-73) % Lymph % (Auto) (20-40) % [place] % (Auto) (2-11) % Eos % (Auto) (0-4) % Baso % (Auto) (0-2) % Lymph # (Auto) (1.2-4.9) X10*3/uL [place] # (Auto) (0.1-1.2) X10*3/uL Eos # (Auto) (0.0-0.4) X10*3/uL Baso # (Auto) (0.0-0.2) X10*3/uL Abs Immat Gran (auto) (0.00-0.03) X10*3/uL Absolute Neuts (auto) (2.0-8.3) X10*3/uL Absolute Nucleated RBC (0.0-0.012) X10*3/uL Nucleated RBC % (auto) (0.0-0.2) /100WBC PT 27.3 H (9.9-13.0) SEC INR 2.4 H (0.9-1.1) APTT 59.7 H (24.1-38.0) SEC Sodium 136 (135-145) mmol/L Potassium 3.9 (3.3-5.1) mmol/L Chloride 100 (96-108) mmol/L Carbon Dioxide 24 (22-29) mmol/L Anion Gap 16 (12-20) BUN 19 H (9-16) mg/dL Creatinine 0.81 (0.5-1.4) mg/dL Estim Creat Clear Calc 105.4 Estimated GFR > 60 Random Glucose 99 (60-115) mg/dL Calcium 8.9 D (8.4-10.2) mg/dL Magnesium 1.9 (1.6-2.6) mg/dL Total Bilirubin 0.8 (0.0-1.0) mg/dL Direct Bilirubin 0.3 (0.0-0.5) mg/dL AST 17 (5-37) U/L ALT 9 (0-40) U/L Alkaline Phosphatase 65 (39-117) U/L Troponin I High Sens (<3.5-35.0) ng/L B-Natriuretic Peptide (<100) pg/mL Total Protein 6.7 (6.5-8.0) g/dL Albumin 3.6 (3.5-5.0) g/dL Lipase 55 (8-78) U/L Urine Color YELLOW Urine Appearance CLEAR Urine pH 6.5 (5.0-8.0) Ur Specific [place] 1.010 (1.005-1.025) Urine Protein NEG (NEG-TRACE) MG/DL Urine Glucose (UA) NEG (NEG) MG/DL Urine Ketones NEG (NEG) MG/DL Urine Blood NEG (NEG) Urine Nitrite NEG (NEG) Ur Leukocyte Esterase NEG (NEG) Stool Occult Blood (NEGATIVE) Coronavirus (PCR) (Negative) Influenza Type A (PCR) (Negative) Influenza Type B (PCR) (Negative) RSV RNA Qual (PCR) (Negative) Blood Type Antibody Screen Crossmatch 01/13/21 01/13/21 01/13/21 Range/Units 09:05 09:05 09:15 WBC (4.8-10.8) X10*3/uL RBC (4.60-5.80) X10*6/uL Hgb (14.0-18.0) g/dl Hct (42-52) % MCV (80-98) fL MCH (27.0-33.0) pg MCHC (31.0-36.0) g/dl RDW (11.0-16.0) % Plt Count (160-400) X10*3/uL MPV (9.4-12.4) fL Immature Gran % (Auto) (0.0-0.4) % Neut % (Auto) (45-73) % Lymph % (Auto) (20-40) % [place] % (Auto) (2-11) % Eos % (Auto) (0-4) % Baso % (Auto) (0-2) % Lymph # (Auto) (1.2-4.9) X10*3/uL [place] # (Auto) (0.1-1.2) X10*3/uL Eos # (Auto) (0.0-0.4) X10*3/uL Baso # (Auto) (0.0-0.2) X10*3/uL Abs Immat Gran (auto) (0.00-0.03) X10*3/uL Absolute Neuts (auto) (2.0-8.3) X10*3/uL Absolute Nucleated RBC (0.0-0.012) X10*3/uL Nucleated RBC % (auto) (0.0-0.2) /100WBC PT (9.9-13.0) SEC INR (0.9-1.1) APTT (24.1-38.0) SEC Sodium (135-145) mmol/L Potassium (3.3-5.1) mmol/L Chloride (96-108) mmol/L Carbon Dioxide (22-29) mmol/L Anion Gap (12-20) BUN (9-16) mg/dL Creatinine (0.5-1.4) mg/dL Estim Creat Clear Calc Estimated GFR Random Glucose (60-115) mg/dL Calcium (8.4-10.2) mg/dL Magnesium (1.6-2.6) mg/dL Total Bilirubin (0.0-1.0) mg/dL Direct Bilirubin (0.0-0.5) mg/dL AST (5-37) U/L ALT (0-40) U/L Alkaline Phosphatase (39-117) U/L Troponin I High Sens (<3.5-35.0) ng/L B-Natriuretic Peptide (<100) pg/mL Total Protein (6.5-8.0) g/dL Albumin (3.5-5.0) g/dL Lipase (8-78) U/L Urine Color Urine Appearance Urine pH (5.0-8.0) Ur Specific [place] (1.005-1.025) Urine Protein (NEG-TRACE) MG/DL Urine Glucose (UA) (NEG) MG/DL Urine Ketones (NEG) MG/DL Urine Blood (NEG) Urine Nitrite (NEG) Ur Leukocyte Esterase (NEG) Stool Occult Blood POSITIVE (NEGATIVE) Coronavirus (PCR) NEGATIVE (Negative) Influenza Type A (PCR) NEGATIVE (Negative) Influenza Type B (PCR) NEGATIVE (Negative) RSV RNA Qual (PCR) NEGATIVE (Negative) Blood Type A Positive Antibody Screen NEGATIVE Crossmatch See Detail <IRIS Hager - Last Filed: 01/13/21 14:10> Lab Results 01/13/21 01/13/21 01/13/21 Range/Units 08:39 08:39 08:39 WBC 11.3 H (4.8-10.8) X10*3/uL RBC 3.40 L (4.60-5.80) X10*6/uL Hgb 6.6 L* D (14.0-18.0) g/dl Hct 22.5 L D (42-52) % MCV 66.2 L (80-98) fL MCH 19.4 L (27.0-33.0) pg MCHC 29.3 L (31.0-36.0) g/dl RDW 19.9 H (11.0-16.0) % Plt Count 419 H (160-400) X10*3/uL MPV 10.1 (9.4-12.4) fL Immature Gran % (Auto) 0.7 H (0.0-0.4) % Neut % (Auto) 84.9 H (45-73) % Lymph % (Auto) 2.6 L (20-40) % [place] % (Auto) 10.8 (2-11) % Eos % (Auto) 0.3 (0-4) % Baso % (Auto) 0.7 (0-2) % Lymph # (Auto) 0.3 L (1.2-4.9) X10*3/uL [place] # (Auto) 1.2 (0.1-1.2) X10*3/uL Eos # (Auto) 0.0 (0.0-0.4) X10*3/uL Baso # (Auto) 0.1 (0.0-0.2) X10*3/uL Abs Immat Gran (auto) 0.08 H (0.00-0.03) X10*3/uL Absolute Neuts (auto) 9.6 H (2.0-8.3) X10*3/uL Absolute Nucleated RBC 0.300 H (0.0-0.012) X10*3/uL Nucleated RBC % (auto) 2.7 H (0.0-0.2) /100WBC PT (9.9-13.0) SEC INR (0.9-1.1) APTT (24.1-38.0) SEC Sodium (135-145) mmol/L Potassium (3.3-5.1) mmol/L Chloride (96-108) mmol/L Carbon Dioxide (22-29) mmol/L Anion Gap (12-20) BUN (9-16) mg/dL Creatinine (0.5-1.4) mg/dL Estim Creat Clear Calc Estimated GFR Random Glucose (60-115) mg/dL Calcium (8.4-10.2) mg/dL Magnesium (1.6-2.6) mg/dL Total Bilirubin (0.0-1.0) mg/dL Direct Bilirubin (0.0-0.5) mg/dL AST (5-37) U/L ALT (0-40) U/L Alkaline Phosphatase (39-117) U/L Troponin I High Sens < 3.5 (<3.5-35.0) ng/L B-Natriuretic Peptide 110 H (<100) pg/mL Total Protein (6.5-8.0) g/dL Albumin (3.5-5.0) g/dL Lipase (8-78) U/L Urine Color Urine Appearance Urine pH (5.0-8.0) Ur Specific [place] (1.005-1.025) Urine Protein (NEG-TRACE) MG/DL Urine Glucose (UA) (NEG) MG/DL Urine Ketones (NEG) MG/DL Urine Blood (NEG) Urine Nitrite (NEG) Ur Leukocyte Esterase (NEG) Stool Occult Blood (NEGATIVE) Coronavirus (PCR) (Negative) Influenza Type A (PCR) (Negative) Influenza Type B (PCR) (Negative) RSV RNA Qual (PCR) (Negative) Blood Type Antibody Screen Crossmatch 01/13/21 01/13/21 01/13/21 Range/Units 08:39 08:40 08:40 WBC (4.8-10.8) X10*3/uL RBC (4.60-5.80) X10*6/uL Hgb (14.0-18.0) g/dl Hct (42-52) % MCV (80-98) fL MCH (27.0-33.0) pg MCHC (31.0-36.0) g/dl RDW (11.0-16.0) % Plt Count (160-400) X10*3/uL MPV (9.4-12.4) fL Immature Gran % (Auto) (0.0-0.4) % Neut % (Auto) (45-73) % Lymph % (Auto) (20-40) % [place] % (Auto) (2-11) % Eos % (Auto) (0-4) % Baso % (Auto) (0-2) % Lymph # (Auto) (1.2-4.9) X10*3/uL [place] # (Auto) (0.1-1.2) X10*3/uL Eos # (Auto) (0.0-0.4) X10*3/uL Baso # (Auto) (0.0-0.2) X10*3/uL Abs Immat Gran (auto) (0.00-0.03) X10*3/uL Absolute Neuts (auto) (2.0-8.3) X10*3/uL Absolute Nucleated RBC (0.0-0.012) X10*3/uL Nucleated RBC % (auto) (0.0-0.2) /100WBC PT 27.3 H (9.9-13.0) SEC INR 2.4 H (0.9-1.1) APTT 59.7 H (24.1-38.0) SEC Sodium 136 (135-145) mmol/L Potassium 3.9 (3.3-5.1) mmol/L Chloride 100 (96-108) mmol/L Carbon Dioxide 24 (22-29) mmol/L Anion Gap 16 (12-20) BUN 19 H (9-16) mg/dL Creatinine 0.81 (0.5-1.4) mg/dL Estim Creat Clear Calc 105.4 Estimated GFR > 60 Random Glucose 99 (60-115) mg/dL Calcium 8.9 D (8.4-10.2) mg/dL Magnesium 1.9 (1.6-2.6) mg/dL Total Bilirubin 0.8 (0.0-1.0) mg/dL Direct Bilirubin 0.3 (0.0-0.5) mg/dL AST 17 (5-37) U/L ALT 9 (0-40) U/L Alkaline Phosphatase 65 (39-117) U/L Troponin I High Sens (<3.5-35.0) ng/L B-Natriuretic Peptide (<100) pg/mL Total Protein 6.7 (6.5-8.0) g/dL Albumin 3.6 (3.5-5.0) g/dL Lipase 55 (8-78) U/L Urine Color YELLOW Urine Appearance CLEAR Urine pH 6.5 (5.0-8.0) Ur Specific [place] 1.010 (1.005-1.025) Urine Protein NEG (NEG-TRACE) MG/DL Urine Glucose (UA) NEG (NEG) MG/DL Urine Ketones NEG (NEG) MG/DL Urine Blood NEG (NEG) Urine Nitrite NEG (NEG) Ur Leukocyte Esterase NEG (NEG) Stool Occult Blood (NEGATIVE) Coronavirus (PCR) (Negative) Influenza Type A (PCR) (Negative) Influenza Type B (PCR) (Negative) RSV RNA Qual (PCR) (Negative) Blood Type Antibody Screen Crossmatch 01/13/21 01/13/21 01/13/21 Range/Units 09:05 09:05 09:15 WBC (4.8-10.8) X10*3/uL RBC (4.60-5.80) X10*6/uL Hgb (14.0-18.0) g/dl Hct (42-52) % MCV (80-98) fL MCH (27.0-33.0) pg MCHC (31.0-36.0) g/dl RDW (11.0-16.0) % Plt Count (160-400) X10*3/uL MPV (9.4-12.4) fL Immature Gran % (Auto) (0.0-0.4) % Neut % (Auto) (45-73) % Lymph % (Auto) (20-40) % [place] % (Auto) (2-11) % Eos % (Auto) (0-4) % Baso % (Auto) (0-2) % Lymph # (Auto) (1.2-4.9) X10*3/uL [place] # (Auto) (0.1-1.2) X10*3/uL Eos # (Auto) (0.0-0.4) X10*3/uL Baso # (Auto) (0.0-0.2) X10*3/uL Abs Immat Gran (auto) (0.00-0.03) X10*3/uL Absolute Neuts (auto) (2.0-8.3) X10*3/uL Absolute Nucleated RBC (0.0-0.012) X10*3/uL Nucleated RBC % (auto) (0.0-0.2) /100WBC PT (9.9-13.0) SEC INR (0.9-1.1) APTT (24.1-38.0) SEC Sodium (135-145) mmol/L Potassium (3.3-5.1) mmol/L Chloride (96-108) mmol/L Carbon Dioxide (22-29) mmol/L Anion Gap (12-20) BUN (9-16) mg/dL Creatinine (0.5-1.4) mg/dL Estim Creat Clear Calc Estimated GFR Random Glucose (60-115) mg/dL Calcium (8.4-10.2) mg/dL Magnesium (1.6-2.6) mg/dL Total Bilirubin (0.0-1.0) mg/dL Direct Bilirubin (0.0-0.5) mg/dL AST (5-37) U/L ALT (0-40) U/L Alkaline Phosphatase (39-117) U/L Troponin I High Sens (<3.5-35.0) ng/L B-Natriuretic Peptide (<100) pg/mL Total Protein (6.5-8.0) g/dL Albumin (3.5-5.0) g/dL Lipase (8-78) U/L Urine Color Urine Appearance Urine pH (5.0-8.0) Ur Specific [place] (1.005-1.025) Urine Protein (NEG-TRACE) MG/DL Urine Glucose (UA) (NEG) MG/DL Urine Ketones (NEG) MG/DL Urine Blood (NEG) Urine Nitrite (NEG) Ur Leukocyte Esterase (NEG) Stool Occult Blood POSITIVE (NEGATIVE) Coronavirus (PCR) NEGATIVE (Negative) Influenza Type A (PCR) NEGATIVE (Negative) Influenza Type B (PCR) NEGATIVE (Negative) RSV RNA Qual (PCR) NEGATIVE (Negative) Blood Type A Positive Antibody Screen NEGATIVE Crossmatch See Detail <Mainor Dobson MD - Last Filed: 01/13/21 12:54> Discharge Plan Discharge Clinical Impression: Symptomatic anemia <IRIS Hager - Last Filed: 01/13/21 14:10> Patient Disposition: Admitted As Inpatient <IRIS Hager - Last Filed: 01/13/21 14:10>
[2021-01-13 09:47] LABS: B Type Natriuretic Peptide 110 pg/mL (<100)
[2021-01-13 09:53] LABS: Influenza A PCR NEGATIVE (Negative); Influenza B PCR NEGATIVE (Negative); Resp Syncy Virus RNA Qual PCR NEGATIVE (Negative); SARS COV2 PCR INHOUSE NEGATIVE (Negative)
[2021-01-13 10:06] LABS: Magnesium 1.9 mg/dL (1.6-2.6)
[2021-01-13] MEDS: iohexoL 350 MG/ML 100 ML INFUS..BTL 65 ML IV (10:47)
--- NOTE | 2021-01-13 11:50 | PC.NURSE ---
PT NOT GIVEN IVF DUE TO CONCERN FOR FLUID OVERLOAD WITH NEEDING 2 UNITS OF RBC'S, PROVIDER AWARE
[2021-01-13 12:47] LABS: Hemoglobin 6.6 g/dl (14.0-18.0)
[2021-01-13] MEDS: Pantoprazole Sodium 40 MG/10 ML VIAL 80 MG IVPUSH (12:54)
--- NOTE | 2021-01-13 13:00 | PC.NURSE ---
PT TOLERATING BLOOD TRANSFUSION WELL AT THIS TIME, NO NOTED REACTIONS, VS WNL. ATTEMPT MADE TO DOC VS IN TAR, CURRENT TECHNICAL ISSUES NOT ALLOWING FOR DOCUMENTATION IN TAR. PT REPORTS SOME ONGOING CRAMPING L LEG, A CHRONIC ISSUE FOR HIM OVER THE PAST FEW MONTHS.
--- NOTE | 2021-01-13 13:03 | PHA.MEDREC ---
Pharmacy Consult ? Medication Reconciliation Pharmacy has completed the medication reconciliation.
[2021-01-13] MEDS: LORazepam 2 MG/ML VIAL 1 MG IVPUSH (14:15)
--- NOTE | 2021-01-13 14:39 | PC.NURSE ---
called to give report estuardo dailey call back
--- NOTE | 2021-01-13 14:43 | P.HPHOSP_ITS ---
History of Present Illness Date of Service: 01/13/21 Chief Complaint: Shortness of breath, dizziness and anemia 59-year-old gentleman with background history of Hodgkin's lymphoma for which he underwent radiation therapy many years ago. He has severe aortic stenosis, nonischemic cardiomyopathy with EF of 50 55% and recurrent pleural effusion, his last cardiac cath show non-obstructive disease, he says he last had colonoscopy within [facility] about a year ago and had polyps. He presents today with weakness, dizziness and shortness of breath and found to have severe anemia, hemoglobin of 6.6. Occult blood is positive, he is not report rectal bleeding or melana. He is on Eliquis 5 bid for history of pulmonary embolism and Aspirin 81 mg daily. Review of Systems Review of Systems: Gen: no fever Resp: + sob, no cough CV: no chest, +CAMARGO, + leg edema GI: No n/v, no abd pain, no melana Neuro: No confusion Yes all other systems are reviewed and are negative [facility] Medical History Aortic stenosis, severe Cardiac resynchronization therapy defibrillator ([employer]-D) in place Complete heart block HFrEF (heart failure with reduced ejection fraction) Hodgkins lymphoma Hypocalcemia Hypotension (arterial) Hypothyroid LBBB (left bundle branch block) NICM (nonischemic cardiomyopathy) Non-rheumatic aortic stenosis Pacemaker Pulmonary embolism Family History Father No problems noted. Mother No problems noted. Surgical History H/O splenectomy History of appendectomy History of cardiac pacemaker S/P TAVR (transcatheter aortic valve replacement) (~10/29/20) Social History Household Members: Family Housing: House Do you presently have visiting nurse or other home services: No Alcohol intake: never Patient Tobacco Use Status: Never used Tobacco Advance Directives: No Advance Directives Information Provided: Yes service: Yes Current occupational status: employed Meds Allergies Allergy/AdvReac Type Severity Reaction Status Date / Time No Known Allergies Allergy Verified 12/21/20 14:29 [No Known Allergies*] Active Medications: Current Medications Generic Name Dose Route Start Last Admin Trade Name Leonor PRN Reason Stop Dose Admin Acetaminophen 650 mg 01/13/21 12:51 Acetaminophen 325 Mg Tablet PO Q6H PRN Pain, Mild (Pain Scale 1-3) Ondansetron HCl 4 mg 01/13/21 12:51 Ondansetron Hcl 4 Mg/2 Ml Vial IVPUSH Q8H PRN Nausea and Vomiting Pharmacy Consult 1 each 01/13/21 12:16 Consult Rx Perform Med Rec MISCELLANE ONCE PRN Consult order Sodium Chloride 3 ml 01/13/21 16:00 0.9 % Sodium Chloride Flush 3 Ml Syringe IVFLUSH [facility] Home Medications Medication Instructions Recorded Confirmed Last Taken Type apixaban 5 mg tablet 5 mg PO BID 11/09/20 01/13/21 01/13/21 History furosemide 40 mg tablet 40 mg PO BID tab 12/21/20 01/13/21 01/13/21 History Physical Exam Vital Signs and Narrative: Vital Signs: Last Vital Signs Temp 97.9 F 01/13/21 14:32 Pulse 97 01/13/21 14:32 Resp 22 H 01/13/21 14:32 BP 97/59 L 01/13/21 14:32 Pulse Ox 99 01/13/21 12:53 Body Mass Index 23.1 Const: Other: Constitutional Awake and Alert, No apparent distress HEENT aneicteric Neck Supple, No lymphadenopathy Cardiovascular RRR, systeolic murmur, S1 S2, No S3 S4, 2+pedal edema Respiratory Lungs clear, No respiratory distress Gastrointestinal Non tender, Non-distended Skin No rash Neurological Alert & oriented x3 Psychological Appropriate affect Results Labs CBC and Chem 7: 01/13/21 08:39 01/13/21 08:40 Imaging Radiologist's Impressions: Impressions Chest X-Ray 01/13/21 08:13 IMPRESSION: Chronic right effusion slightly increased with new subtle groundglass opacity and subsegmental atelectasis right base. Left lung clear. Head CT 01/13/21 08:18 IMPRESSION: 1. No acute intracranial abnormality. 2. Probable prominent perivascular for Virchow-Jonah space inferior right basal ganglia under 1 cm. No mass effect or edema. 3. Opacification in bilateral middle ear cavities and mastoids. No air-fluid levels. Venous Duplex 01/13/21 09:00 IMPRESSION: No DVT demonstrated in the bilateral lower extremity. Chest CTA 01/13/21 09:47 IMPRESSION: 1. No acute pulmonary embolism. Prior segmental filling defects resolved since exam 10/25/2020. 2. Moderate right effusion slightly decreased since prior exam 10/25/2020. 3. Subsegmental atelectasis anterior medial right upper lobe and right posterior basal region. No segmental or lobar airspace consolidation. No pneumothorax. VTE: negative Assessment and Plan (1) Acute blood loss anemia: Status: Acute (2) GIB (gastrointestinal bleeding): Status: Acute (3) Symptomatic anemia: Status: Acute (4) Recurrent pleural effusion on right: Status: Acute 60 year old male with complex medical issues non ischemic cardiomyoptathy, severe , recurrent P. effusion, history of pulmonary embolism on eliquis here with symptomatic anemia hemoglobin of 6.6 and FOBT positive 1/ Acute blood loss anemia 2/ GIB, upper vs lower -Stop Eliquis and ASA -Blood transfusion -Dr. Portillo aware and he will likely need endoscopy -IV PPI 3/Cardiomyopathy with chroic HFpEF--He will need additional diuretic with transf usion Cardiology consultation 4/Chronic Pleural effusion likley related to heart failure 5/h/o of Pulmonary embolism--Holding anticoagulation as stated above 6/Hypothyroidism--Levothyroxine, Liquid, NPO overnight Quality Stroke Does the patient have a stroke diagnosis?: No VTE Prior VTE?: Yes VTE Risk Level:: Medical - moderate - high VTE Device Contraindication: N/A - Device Ordered VTE Drug Contraindication: Treatment Not Indicated
--- NOTE | 2021-01-13 15:25 | PC.NURSE ---
Per Dr. Leal from GI: plan to have endo on 01/14 at 06/1230. Regular diet for tonight-then NPO after Mid.
--- NOTE | 2021-01-13 16:14 | P.EN_ITS ---
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 Last colonoscopy was ~15 mos ago showed ischemic colitis in the cecum and several benign polyps. He has seen occasional hematochezia but no significant bleeding/melena. EGD scheduled for tomorrow for further evaluation. He understands risks and benefits and agrees to proceed.
--- NOTE | 2021-01-13 16:14 | MHC.SHP ---
Pre-Procedural Eval Section A Date of Service: 01/13/21 The patient is an INPATIENT: Yes Changes since office visit: No Cold of Flu in the past 2 weeks, No New Medical Problems, No Changes in Medication and No Patient answered all questions The History & Physical has been completed within 30 days and I have reviewed it.: Yes Section B Chief Complaint: Anemia Allergies: Allergies Allergy/AdvReac Type Severity Reaction Status Date / Time No Known Allergies Allergy Verified 12/21/20 14:29 [No Known Allergies*] Plan I have reviewed the history and physical and performed a pertinent physical examination on my patient. No changes have occurred unless specified.
--- NOTE | 2021-01-13 16:59 | CONS_ITS ---
DATE OF SERVICE: 01/13/2021 REFERRING PHYSICIAN: Jerardo Marshall MD REASON FOR CONSULTATION: Anemia and Hemoccult-positive stools. 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 He was evaluated in the emergency department and noted to have a hemoglobin of 6.6, which was down from his last hemoglobin of 9.0 on October 27. He was also noted to have Hemoccult-positive stools. He denies any significant rectal bleeding. He does have occasional hematochezia, which he attributes to hemorrhoids. He has a history of 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and has been previously followed at [facility]. He last underwent colonoscopy about 15 months ago with removal of several polyps. He also had an area of ischemic colitis noted in the cecum. He has not had significant melena or red blood per rectum. He last underwent upper endoscopy about 4 years ago and at that time did have gastric polyps noted as well. He has been on Eliquis for pulmonary embolism and is also on aspirin 81 mg daily. PAST MEDICAL HISTORY: 1. Lymphoma, treated with radiation and chemotherapy. 2. Cardiomyopathy with aortic stenosis and defibrillator placement. He also had complete heart block that required pacemaker placement. 3. Hypotension. 4. Colon polyps as above. 5. Pulmonary embolism. 6. Left bundle-branch block. PAST SURGICAL HISTORY: Includes splenectomy, appendectomy, pacemaker, and defibrillator placement as well as TAVR in October of this year. CURRENT MEDICATIONS: Current medication list is reviewed in the chart. He denies use of nonsteroidal anti-inflammatories except aspirin. ALLERGIES: THERE ARE NONE REPORTED. FAMILY HISTORY: This is negative for upper GI malignancy. SOCIAL HISTORY: He denies tobacco use. Alcohol use is described as infrequent. REVIEW OF SYSTEMS: SKIN: No pruritus. HEENT: Negative. CARDIOPULMONARY: Positive for recent shortness of breath and dizziness. GASTROINTESTINAL: As above. GENITOURINARY: Negative. NEUROPSYCHIATRIC: Negative. PHYSICAL EXAMINATION: GENERAL: Shows a pleasant male, lying in bed. VITAL SIGNS: Show systolic blood pressure in the 90 to 100 range. SKIN: Pale. HEENT: Shows no scleral icterus. NECK: Without lymphadenopathy or thyromegaly. LUNGS: Clear. HEART: Shows a regular rate and rhythm. S1, S2. No murmur. There are mechanical valve sounds. ABDOMEN: Soft without focal masses or tenderness. Bowel sounds are present. No organomegaly is noted. EXTREMITIES: Without edema. LABORATORY DATA: Shows a white blood cell count of 11.3, hematocrit 22.5. INR 2.4, PTT 59.7. Chemistries showed BUN of 19. IMPRESSION: Anemia with Hemoccult-positive stools. There may be a component of GI tract blood loss exacerbated by his Eliquis use. Given his aspirin use, I would recommend he undergo upper endoscopy for further evaluation. This will be arranged tomorrow. I have discussed risks and benefits of the procedure with him. He understands and agrees to proceed. In the interim, I would recommend treating with a proton pump inhibitor. I would also give vitamin K because of his elevated PT and INR. His Eliquis has been held and he does not show signs of active bleeding. His colonoscopy was fairly recent and I do not think this necessarily needs to be repeated. I discussed risks and benefits of endoscopy with the patient. He understands and agrees to proceed. This will be arranged for tomorrow. MD ELLYN Andersen/LETICIA / [id number] SARATH
[2021-01-13] MEDS: Phytonadione (Vit K1) 10 MG in 0.9 % Sodium Chloride 50 ML 51 MG IV (17:27)
[2021-01-13] MEDS: 0.9 % Sodium Chloride Flush 3 ML SYRINGE IVFLUSH (17:27)
[2021-01-13 18:48] LABS: Hematocrit 26.1 % (42-52); Hemoglobin 7.9 g/dl (14.0-18.0)
[2021-01-14] VITALS (13 sets, daily range): BP systolic 91–120; BP diastolic 51–68; PULSE 90–101; RESP 16–20; TEMP 36.4–37.6; O2SAT 94–99
[2021-01-14 07:04] LABS: MANUAL DIFF FLAG NO
[2021-01-14 07:10] LABS: Basophils Absolute Auto 0.1 X10*3/uL (0.0-0.2); Basophils Percent Auto 1.2 % (0-2); Eosinophils Absolute Auto 0.2 X10*3/uL (0.0-0.4); Eosinophils Percent Auto 2.8 % (0-4); Hematocrit 25.9 % (42-52); Hemoglobin 7.7 g/dl (14.0-18.0); Imm Gran Abs Auto 0.04 X10*3/uL (0.00-0.03); Imm Gran Pct Auto 0.5 % (0.0-0.4); Lymphocytes Absolute Auto 0.4 X10*3/uL (1.2-4.9); Lymphocytes Percent Auto 4.6 % (20-40); Mean Corpuscular HGB Conc 29.7 g/dl (31.0-36.0); Mean Corpuscular Hemoglobin 20.8 pg (27.0-33.0); Mean Corpuscular Volume 69.8 fL (80-98); Mean Platelet Volume 10.3 fL (9.4-12.4); Monocytes Absolute Auto 1.3 X10*3/uL (0.1-1.2); Monocytes Percent Auto 15.4 % (2-11); Neutrophils Absolute Auto 6.4 X10*3/uL (2.0-8.3); Neutrophils Percent Auto 75.5 % (45-73); Platelet Count 404 X10*3/uL (160-400); Red Blood Count 3.71 X10*6/uL (4.60-5.80); White Blood Count 8.5 X10*3/uL (4.8-10.8)
[2021-01-14 07:21] LABS: INTERNATIONAL NORM RATIO 1.5 (0.9-1.1); Prothrombin Time 16.8 SEC (9.9-13.0)
[2021-01-14 07:34] LABS: NRBC Pct Auto 3.4 /100WBC (0.0-0.2)
[2021-01-14 07:42] LABS: Anion Gap 11 (12-20); Blood Urea Nitrogen 14 mg/dL (9-16); Calcium 8.4 mg/dL (8.4-10.2); Carbon Dioxide 25 mmol/L (22-29); Chloride 105 mmol/L (96-108); Creatinine Clr Calc Pharmacy 115.4; Estimated Glomerular Filt Rate > 60; Glucose Random 93 mg/dL (60-115); Potassium 4.3 mmol/L (3.3-5.1); Sodium 137 mmol/L (135-145)
--- NOTE | 2021-01-14 08:39 | MHC.CM.PN ---
CM met with Patient at bedside. Patient lives in a house with his /HCP and 2 children, ages 16 & 17 years of age. Patient is interested in a referral to [facility] and CM has initiated and will follow for dc planning. 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 PCP is Dr. Yesica Avila.
[2021-01-14] MEDS: 0.9 % Sodium Chloride Flush 3 ML SYRINGE IVFLUSH ×2 (09:13→22:33)
--- NOTE | 2021-01-14 09:40 | P.PNIM_ITS ---
Subjective Subjective Date of Service: 01/14/21 Interval History: Seen in f/u for GIB, acute blood loss anemia with symptoms of SOB. He feels better, Hgb is up to 7,7 from 6 Review of Systems Gen: no fever Resp: no sob, no cough CV: no chest, + CAMARGO, leg edema GI: No n/v, no abd pain Neuro: No confusion Physical Exam Vital Signs: Vital Signs: Last Vital Signs Temp 98.3 F 01/14/21 09:17 Pulse 91 01/14/21 09:17 Resp 16 01/14/21 09:17 BP 91/53 L 01/14/21 09:17 Pulse Ox 96 01/14/21 07:04 Body Mass Index 23.1 Const: Other: General: AO X 3, no acute distress Resp: normal resp effort, CVS: S1,S2,RRR, 1+ leg edema GI: +BS, NT, no distention Skin: No rash Neuro: motor grossly intact Psych: appropriate affect Objective Data Current Medications Generic Name Dose Route Start Last Admin Trade Name Leonor PRN Reason Stop Dose Admin Acetaminophen 650 mg 01/13/21 12:51 Acetaminophen 325 Mg Tablet PO Q6H PRN Pain, Mild (Pain Scale 1-3) Ondansetron HCl 4 mg 01/13/21 12:51 Ondansetron Hcl 4 Mg/2 Ml Vial IVPUSH Q8H PRN Nausea and Vomiting Pharmacy Consult 1 each 01/13/21 12:16 Consult Rx Perform Med Rec MISCELLANE ONCE PRN Consult order Sodium Chloride 3 ml 01/13/21 16:00 01/14/21 09:13 0.9 % Sodium Chloride Flush 3 Ml Syringe IVFLUSH 3 ml QSHIFT JERRELL Administration Labs CBC & Chem 7: 01/14/21 06:08 01/14/21 06:08 Labs: Laboratory Results - last 24 hr 01/13/21 01/13/21 01/13/21 08:39 08:39 08:40 WBC RBC Hgb 6.6 L* D Hct MCV MCH MCHC RDW Plt Count MPV 10.1 Immature Gran % (Auto) 0.7 H Neut % (Auto) 84.9 H Lymph % (Auto) 2.6 L Teller % (Auto) 10.8 Eos % (Auto) 0.3 Baso % (Auto) 0.7 Lymph # (Auto) 0.3 L Teller # (Auto) 1.2 Eos # (Auto) 0.0 Baso # (Auto) 0.1 Abs Immat Gran (auto) 0.08 H Absolute Neuts (auto) 9.6 H Absolute Nucleated RBC 0.300 H Nucleated RBC % (auto) 2.7 H PT INR Sodium Potassium Chloride Carbon Dioxide Anion Gap BUN Creatinine Estim Creat Clear Calc Estimated GFR Random Glucose Calcium Magnesium 1.9 B-Natriuretic Peptide 110 H Coronavirus (PCR) Influenza Type A (PCR) Influenza Type B (PCR) RSV RNA Qual (PCR) Blood Type Antibody Screen Crossmatch 01/13/21 01/13/21 01/13/21 09:05 09:05 18:39 WBC RBC Hgb 7.9 L Hct 26.1 L MCV MCH MCHC RDW Plt Count MPV Immature Gran % (Auto) Neut % (Auto) Lymph % (Auto) Teller % (Auto) Eos % (Auto) Baso % (Auto) Lymph # (Auto) Teller # (Auto) Eos # (Auto) Baso # (Auto) Abs Immat Gran (auto) Absolute Neuts (auto) Absolute Nucleated RBC Nucleated RBC % (auto) PT INR Sodium Potassium Chloride Carbon Dioxide Anion Gap BUN Creatinine Estim Creat Clear Calc Estimated GFR Random Glucose Calcium Magnesium B-Natriuretic Peptide Coronavirus (PCR) NEGATIVE Influenza Type A (PCR) NEGATIVE Influenza Type B (PCR) NEGATIVE RSV RNA Qual (PCR) NEGATIVE Blood Type A Positive Antibody Screen NEGATIVE Crossmatch See Detail 01/14/21 01/14/21 01/14/21 06:08 06:08 06:08 WBC 8.5 RBC 3.71 L Hgb 7.7 L Hct 25.9 L MCV 69.8 L MCH 20.8 L MCHC 29.7 L RDW 22.0 H Plt Count 404 H MPV 10.3 Immature Gran % (Auto) 0.5 H Neut % (Auto) 75.5 H Lymph % (Auto) 4.6 L Teller % (Auto) 15.4 H Eos % (Auto) 2.8 Baso % (Auto) 1.2 Lymph # (Auto) 0.4 L Teller # (Auto) 1.3 H Eos # (Auto) 0.2 Baso # (Auto) 0.1 Abs Immat Gran (auto) 0.04 H Absolute Neuts (auto) 6.4 Absolute Nucleated RBC 0.290 H Nucleated RBC % (auto) 3.4 H PT 16.8 H D INR 1.5 H Sodium 137 Potassium 4.3 Chloride 105 Carbon Dioxide 25 Anion Gap 11 L BUN 14 Creatinine 0.74 Estim Creat Clear Calc 115.4 Estimated GFR > 60 Random Glucose 93 Calcium 8.4 Magnesium B-Natriuretic Peptide Coronavirus (PCR) Influenza Type A (PCR) Influenza Type B (PCR) RSV RNA Qual (PCR) Blood Type Antibody Screen Crossmatch Quality Stroke Does the patient have a stroke diagnosis?: No VTE Prior VTE?: Yes VTE Risk Level:: Medical - moderate - high VTE Device Contraindication: N/A - Device Ordered VTE Drug Contraindication: Treatment Not Indicated Assessment and Plan (1) Acute blood loss anemia: Status: Acute (2) GIB (gastrointestinal bleeding): Status: Acute (3) Symptomatic anemia: Status: Acute (4) Recurrent pleural effusion on right: Status: Acute Assessment and Plan: 60 year old male with complex medical issues non ischemic cardiomyoptathy, severe , recurrent P. effusion, history of pulmonary embolism on eliquis here with symptomatic anemia hemoglobin of 6.6 and FOBT positive 1/ Acute blood loss anemia 2/ GIB, upper vs lower -Stopped Eliquis and ASA -Transfused 2 unts 01/13, Hgn 6.6-->7.7 today, transfuse 1 unit today -Going for endoscopy today -IV PPI 3/Cardiomyopathy with chroic HFpEF-- at risk for decompensation, IV Lasix 20 bid, Cardiology consultation 4/Chronic Pleural effusion likley related to heart failure 5/h/o of Pulmonary embolism--Holding anticoagulation as stated above 6/Hypothyroidism--Levothyroxine, Liquid, NPO overnight
--- NOTE | 2021-01-14 10:22 | PM.CNCAR ---
History of Present Illness History of Present Illness Date of Service: 01/14/21 Consult reason: congestive heart failure Chief complaint: Anemia Narrative: This is a cardiology consultation regarding congestive heart failure. Patient is well known to us. He has a history of severe aortic stenosis that recently led to aortic valve replacement. Background of partial is lymphoma for which she underwent radiation many years ago. He also has nonischemic cardiomyopathy but with preserved LVEF recently. Current admission is for complaints of shortness of breath, feeling dizzy, weak among others. He has been diagnosed to have significant anemia and possible GI bleed. Plans to go for endoscopy today. Review of Systems Review of Systems: Yes all other systems are reviewed and are negative Constitutional: Constitutional: Reports fatigue and Reports weakness Cardiovascular: Cardiovascular: Reports as per HPI, Reports no additional cardiovascular complaints, Denies acrocyanosis, Denies cool extremities, Denies painful fingertips, Denies chest pain, Denies chest pain at rest, Denies diaphoresis, Denies syncope, Denies irregular heart rhythm, Denies claudication, Denies leg edema, Reports lightheadedness, Denies palpitations and Reports dyspnea Respiratory: Respiratory: Reports dyspnea Neurologic: Denies syncope and Reports weakness Endocrine: Endocrine: Reports fatigue and Denies palpitations PMFSH Past Medical History Medical History Aortic stenosis, severe Cardiac resynchronization therapy defibrillator (CHUCKING 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 Mother No problems noted. Surgical History Surgical History H/O splenectomy History of appendectomy History of cardiac pacemaker S/P TAVR (transcatheter aortic valve replacement) (~10/29/20) Social History Social History Household Members: Family Housing: House Do you presently have visiting nurse or other home services: No Alcohol intake: never Patient Tobacco Use Status: Never used Tobacco service: Yes Current occupational status: employed Meds Allergies Allergy/AdvReac Type Severity Reaction Status Date / Time No Known Allergies Allergy Verified 12/21/20 14:29 [No Known Allergies*] Active Medications: Current Medications Generic Name Dose Route Start Last Admin Trade Name Leonor PRN Reason Stop Dose Admin Acetaminophen 650 mg 01/13/21 12:51 Acetaminophen 325 Mg Tablet PO Q6H PRN Pain, Mild (Pain Scale 1-3) Furosemide 20 mg 01/14/21 09:45 Furosemide 20 Mg/2 Ml Vial IVPUSH Q12H [facility] Protocol Ondansetron HCl 4 mg 01/13/21 12:51 Ondansetron Hcl 4 Mg/2 Ml Vial IVPUSH Q8H PRN Nausea and Vomiting Pharmacy Consult 1 each 01/13/21 12:16 Consult Rx Perform Med Rec MISCELLANE ONCE PRN Consult order Sodium Chloride 3 ml 01/13/21 16:00 01/14/21 09:13 0.9 % Sodium Chloride Flush 3 Ml Syringe IVFLUSH 3 ml QSHIFT [facility] Administration Home Medications Medication Instructions Recorded Confirmed Last Taken Type apixaban 5 mg tablet 5 mg PO BID 11/09/20 01/13/21 01/13/21 History furosemide 40 mg tablet 40 mg PO BID tab 12/21/20 01/13/21 01/13/21 History Physical Exam Vital Signs: Vital Signs: Last Vital Signs Temp 98.3 F 01/14/21 09:17 Pulse 91 01/14/21 09:17 Resp 16 01/14/21 09:17 BP 91/53 L 01/14/21 09:17 Pulse Ox 96 01/14/21 07:04 Body Mass Index 23.1 Const: General: cooperative and no acute distress HENMT: Other: Unremarkable Neck: Neck: Yes normal visual inspection Chest: Chest palpation & inspection: normal inspection of the chest Resp: Auscultation: clear to auscultation bilaterally, no crackles and no wheezes Cardio: Jugular venous distension: no JVD Palpation: normal PMI Heart sounds: S1 normal heart sound present, S2 normal heart sound present, no gallops, Murmur heart sound present systolic III/ and at the right sternal border and no rubs GI: Palpation (GI): Soft to palpation Back/Spine/Pelvis: Other: unremarkable Skin: General skin exam: no rashes or lesions noted Neuro: Cranial nerves: Yes Other cranial nerve findings present Extrem: General: Yes no clubbing, cyanosis or edema Psych: Mental Status: other Results Labs and Meds Result diagrams: 01/14/21 06:08 01/14/21 06:08 Lab results: Laboratory Results - last 24 hr 01/13/21 01/13/21 01/13/21 08:39 09:05 18:39 WBC RBC Hgb 6.6 L* D 7.9 L Hct 26.1 L MCV MCH MCHC RDW Plt Count MPV Immature Gran % (Auto) Neut % (Auto) Lymph % (Auto) [place] % (Auto) Eos % (Auto) Baso % (Auto) Lymph # (Auto) [place] # (Auto) Eos # (Auto) Baso # (Auto) Abs Immat Gran (auto) Absolute Neuts (auto) Absolute Nucleated RBC Nucleated RBC % (auto) PT INR Sodium Potassium Chloride Carbon Dioxide Anion Gap BUN Creatinine Estim Creat Clear Calc Estimated GFR Random Glucose Calcium Blood Type A Positive Antibody Screen NEGATIVE Crossmatch See Detail 01/14/21 01/14/21 01/14/21 06:08 06:08 06:08 WBC 8.5 RBC 3.71 L Hgb 7.7 L Hct 25.9 L MCV 69.8 L MCH 20.8 L MCHC 29.7 L RDW 22.0 H Plt Count 404 H MPV 10.3 Immature Gran % (Auto) 0.5 H Neut % (Auto) 75.5 H Lymph % (Auto) 4.6 L [place] % (Auto) 15.4 H Eos % (Auto) 2.8 Baso % (Auto) 1.2 Lymph # (Auto) 0.4 L [place] # (Auto) 1.3 H Eos # (Auto) 0.2 Baso # (Auto) 0.1 Abs Immat Gran (auto) 0.04 H Absolute Neuts (auto) 6.4 Absolute Nucleated RBC 0.290 H Nucleated RBC % (auto) 3.4 H PT 16.8 H D INR 1.5 H Sodium 137 Potassium 4.3 Chloride 105 Carbon Dioxide 25 Anion Gap 11 L BUN 14 Creatinine 0.74 Estim Creat Clear Calc 115.4 Estimated GFR > 60 Random Glucose 93 Calcium 8.4 Blood Type Antibody Screen Crossmatch ECG Attestation: I personally reviewed and interpreted this ECG as follows: Interpretation: EKG shows atrial sensed, biventricular paced rhythm at 94/Min. Telemetry similar. Imaging Radiologist's impression: Impressions Venous Duplex 01/13/21 09:00 IMPRESSION: No DVT demonstrated in the bilateral lower extremity. Chest CTA 01/13/21 09:47 IMPRESSION: 1. No acute pulmonary embolism. Prior segmental filling defects resolved since exam 10/25/2020. 2. Moderate right effusion slightly decreased since prior exam 10/25/2020. 3. Subsegmental atelectasis anterior medial right upper lobe and right posterior basal region. No segmental or lobar airspace consolidation. No pneumothorax. VTE: negative Assessment and Plan (1) Acute blood loss anemia: Status: Acute (2) S/P TAVR (transcatheter aortic valve replacement): Status: Acute (3) Acute on chronic diastolic (congestive) heart failure: Status: Acute (4) Cardiac resynchronization therapy defibrillator (CHUCKING AND BORING MACHINE OPERATOR-D) in place: Status: Acute (5) Pulmonary embolism: Qualifiers: Pulmonary embolism type: single subsegmental (without acute cor pulmonale) Qualified Code(s): I26.93 - Single subsegmental pulmonary embolism without acute cor pulmonale Status: Acute Labs reviewed. Hemoglobin is 6.6 on arrival but improved to 7.7 after blood transfusions. Creatinine is 0.74. BUN is 14. Negative high sensitivity troponins. Cardiac BNP is 110. ICD interrogation was performed and this actually shows that he has been having fluid retention for the last month or so. Last echocardiogram from a month ago with LVEF 55-60% and normally functioning bioprosthetic aortic valve. For now, we can hold off on Eliquis and aspirin till GI workup completed. Then need to decide if he actually needs Eliquis long-term or not and we can get input from his transformer builder. He will need at least aspirin due to the bioprosthetic valve. Due to blood transfusions, he will need IV diuretics to ensure he does go into heart failure. Will closely follow up with you. Procedures Date of Service Date of Service: 01/14/21
[2021-01-14] MEDS: Furosemide 20 MG/2 ML VIAL IVPUSH ×2 (10:33→22:33)
--- NOTE | 2021-01-14 11:17 | PM.HEMONCCN ---
Subjective - Subjective Chief complaint: Consult for: Anemia. GI bleeding. On Eliquis. Patient: new to practice Consult date: 01/14/21 Requesting Physician: Joanna. Primary Care Provider: Yesica Kay MD Medical Summary: DIAGNOSIS: ANEMIA. GI BLEEDING. HISTORY OF PE. ON ELIQUIS. HPI - Consult Narrative Reason for consult: consult for: Anemia. GI bleeding. On Eliquis. Narrative: Enrique Monahan is a pleasant 60 year old gentleman, who presented yesterday with weakness, dizziness and shortness of breath. He was found to have severe anemia, with hemoglobin of 6.6. He did not report any rectal bleeding nor mary. Occult blood was positive. He is on Eliquis 5 bid for history of pulmonary embolism and Aspirin 81 mg daily. CBC from 01/13: WBC: 11.3, HGB 6.6, HCT 22.5, PLT 419. He had a couple of units of packed RBCs overnight. Today's hemoglobin is 7.7 with hematocrit of 25.9. He was seen by Dr. Leal from , yesterday, his impression: Anemia with Hemoccult-positive stools. There may be a component of GI tract blood loss exacerbated by his Eliquis use. Given his aspirin use, I would recommend he undergo upper endoscopy for further evaluation. This will be arranged tomorrow. In the interim, I would recommend treating with a proton pump inhibitor. I would also give vitamin K because of his elevated PT and INR. His Eliquis has been held and he does not show signs of active bleeding. His colonoscopy was fairly recent and I do not think this necessarily needs to be repeated. Past History of: Hodgkin's lymphoma for which he underwent radiation therapy many years ago. He has severe aortic stenosis, nonischemic cardiomyopathy with EF of 50 55%. Recurrent pleural effusion. His last cardiac cath show non-obstructive disease. He last had colonoscopy within [facility] about a year ago and had polyps. Review of Systems - Constitutional Reports system reviewed and no additional complaints, except as documented, Reports anorexia, Reports lack of energy, Reports poor appetite, Reports weakness, Reports weight loss, Denies body ache(s), Denies increased appetite - Eyes Reports system reviewed and no additional complaints, except as documented - ENT Reports system reviewed and no additional complaints, except as documented - Cardiovascular Reports system reviewed and no additional complaints, except as documented - Respiratory Reports no additional respiratory complaints - Gastrointestinal Reports system reviewed and no additional complaints, except as documented, Denies black, tarry stools, Denies diarrhea, Denies loose stools, Denies nausea - Genitourinary Genitourinary: Reports no additional male genitourinary complaints - Musculoskeletal Reports system reviewed and no additional complaints, except as documented - Integumentary/Breasts Skin/Breast: Reports no additional skin complaints - Neurologic Reports system reviewed and no additional complaints, except as documented, Reports as per HPI, Reports weakness, Denies syncope - Psychiatric Reports system reviewed and no additional complaints, except as documented - Endocrine Reports no additional endocrine complaints - Hematologic/Lymphatic Reports system reviewed and no additional complaints, except as documented - Allergic/Immunologic Reports system reviewed and no additional complaints, except as documented Oncology Screenings - ECOG Performance Status ECOG Performance Status: 1 [facility] Medical History: Medical History (Last Reviewed 01/15/21 @ 09:21 by Mandy Arellano) Aortic stenosis, severe Cardiac resynchronization therapy defibrillator (CLINICAL PSYCHOLOGIST LICENSED-D) in place Complete heart block HFrEF (heart failure with reduced ejection fraction) Hodgkins lymphoma Hypocalcemia Hypotension (arterial) Hypothyroid LBBB (left bundle branch block) NICM (nonischemic cardiomyopathy) Non-rheumatic aortic stenosis Pacemaker Pulmonary embolism Functional capacity: independent ambulation Patient : No Family History: Family History (Last Reviewed 01/15/21 @ 09:21 by Mandy Arellano) Father No problems noted. Mother No problems noted. Surgical History: Surgical History (Last Reviewed 01/15/21 @ 09:21 by Mandy Arellano) H/O splenectomy History of appendectomy History of cardiac pacemaker S/P TAVR (transcatheter aortic valve replacement) Onset Date: ~10/29/20 Social History: Social History (Last Reviewed 01/15/21 @ 09:21 by Mandy Arellano) Living Situation History: Household Members: Family Housing: House Do you presently have visiting nurse or other home services: No Alcohol History: Alcohol intake: never Alcohol History Details: Alcohol intake frequency: does not drink Tobacco History: Patient Tobacco Use Status: Never used Tobacco Occupation Assessmet: service: Yes Current occupational status: employed Home Medications and Allergies Current Medications: Current Medications Generic Name Dose Route Start Last Admin Trade Name Freq PRN Reason Stop Dose Admin Acetaminophen 650 mg 01/13/21 12:51 Acetaminophen 325 Mg Tablet PO Q6H PRN Pain, Mild (Pain Scale 1-3) Furosemide 20 mg 01/14/21 09:45 01/14/21 10:33 Furosemide 20 Mg/2 Ml Vial IVPUSH 20 mg Q12H [facility] Administration Protocol Ondansetron HCl 4 mg 01/13/21 12:51 Ondansetron Hcl 4 Mg/2 Ml Vial IVPUSH Q8H PRN Nausea and Vomiting Pharmacy Consult 1 each 01/13/21 12:16 Consult Rx Perform Med Rec MISCELLANE ONCE PRN Consult order Sodium Chloride 3 ml 01/13/21 16:00 01/14/21 09:13 0.9 % Sodium Chloride Flush 3 Ml Syringe IVFLUSH 3 ml QSHIFT [facility] Administration Home Medications Medication Instructions Recorded Confirmed Type furosemide 40 mg tablet 40 mg PO BID tab 12/21/20 01/13/21 History Allergies Allergy/AdvReac Type Severity Reaction Status Date / Time No Known Allergies Allergy Verified 12/21/20 14:29 [No Known Allergies*] Physical Exam Vital signs: Vital Signs Temp 98 F 01/14/21 11:07 Pulse 91 01/14/21 11:07 Resp 18 01/14/21 11:07 BP 107/65 01/14/21 11:07 Pulse Ox 94 01/14/21 11:07 Intake & Output 01/13/21 01/14/21 01/14/21 18:59 06:59 18:59 Intake Total 1050 / 1461 411 / 1461 0 / 0 Output Total 550 / 550 Balance 1050 / 911 -139 / 911 0 / 0 Urine Output (Average ml/kg/hr) 0.61 0.61 Intake: Intake, Oral Amount 360 / 360 Intake (Blood Product) Amount 700 / 700 0 / 0 Red Blood Cells (E0382) Unit 350 / 350 0 / 0 [id number] Red Blood Cells (E0382) Unit 350 / 350 [id number] Red Blood Cells (E0382) Unit 0 / 0 [id number] Intake, Other Amount 350 / 350 Intake, IV Amount Phytonadione (Vit K1) 10 mg In 0.9 % Sodium Chloride 50 ml @ 51 mls/hr IV ONCE ONE Rx#: [id number] Output: Output, Urine Amount 550 / 550 Other: NPO Yes Dinner % Eaten 75% Number of Unmeasured Voids 1 Number of Bowel Movements 1 Urine Urinal Urinal Urine Color Yellow Yellow Last Bowel Movement 01/13/21 Stool Bathroom Stool Amount Moderate Stool Color Brown Stool Consistency Formed Weight 75 kg Weight 75 kg - Constitutional Present: mild distress - Routine HEENT Exam Head: Present: normocephalic ENT: Present: mucous membranes moist - Routine Neck Exam Present: supple. Absent: JVD, lymphadenopathy - Routine Respiratory Exam Present: decreased breath sounds - Routine Cardiovascular Exam Cardiovascular: Present: RRR - Routine Abdominal Exam Present: nontender. Absent: organomegaly - Routine Rectal Exam Patient deferred: digital exam - Routine Extremities Exam Absent: calf tenderness - Routine Back/Spine/Pelvis Exam Back/Spine: Absent: vertebral tenderness - Routine Skin Exam Present: intact - Routine Neurological Exam Present: alert, oriented X3 - Detailed Neurological Exam: Coma Scale Eye Opening: Spontaneous (4) Hem/Onc Consult Result - Labs CBC & Chem 7: 01/15/21 05:53 01/15/21 05:53 Labs: Short CBC 01/13/21 01/13/21 01/14/21 Range/Units 08:39 18:39 06:08 WBC 8.5 (4.8-10.8) X10*3/uL Hgb 6.6 L* D 7.9 L 7.7 L (14.0-18.0) g/dl Hct 26.1 L 25.9 L (42-52) % Plt Count 404 H (160-400) X10*3/uL BMP 01/14/21 06:08 Sodium 137 Potassium 4.3 Chloride 105 Carbon Dioxide 25 BUN 14 Creatinine 0.74 Calcium 8.4 Assessment and Plan (1) Acute blood loss anemia Status: Acute 60 year old gentleman, with complex medical issues non ischemic cardiomyoptathy, severe , recurrent P. effusion, history of pulmonary embolism maintained on Eliquis. He has been admitted with symptomatic anemia, with a hemoglobin, of 6.6. His stool is positive for gauiac. Most likely he has anemia related to blood loss. It appears he has an underlying GI bleeding. It is most likely upper GI, given the guaiac-positive stools and no obvious change in stool color. He had recent colonoscopy that was negative except for polyps. PLAN: His Eliquis and ASA, have been stopped. He did receive a blood transfusion. He has been started on -IV PPI. He has been seen by GI and is scheduled for an upper endoscopy, later today. If that is negative he will have a colonoscopy. Given the risk and benefit ratio, can hold off on further anticoagulation for the time being. I will follow him as an outpatient. Thank you, CC: ADDENDUM: EGD: MULTIPLE POLYPS. NON BLEEDING. PLAN: for colonoscopy, in AM.
--- NOTE | 2021-01-14 11:46 | P.CONAN_ITS ---
[facility] Active Problems Active Problems: All Active Problems (Updated 01/14/21 @ 11:35 by Britany hansen MD) Acute on chronic diastolic (congestive) heart failure (Acute) GIB (gastrointestinal bleeding) (Acute) Acute blood loss anemia (Acute) Symptomatic anemia (Acute) Pulmonary embolism (Acute) Cardiac resynchronization therapy defibrillator (COTTON FEEDER-D) in place (Acute) Encounter for interrogation of cardiac defibrillator (Acute) S/P TAVR (transcatheter aortic valve replacement) (Acute ~10/29/20) Hodgkin lymphoma (Acute) [place] syndrome (Acute) Anemia (Acute) Fecal occult blood test positive (Acute) Shortness of breath (Acute) Bilateral pulmonary embolism (Acute) Congestive heart failure (Acute) Hyperkalemia (Acute) Recurrent pleural effusion on right (Acute) Hypothyroid (Acute) Hypocalcemia (Acute) Non-rheumatic aortic stenosis (Acute) Past Medical History Medical History Aortic stenosis, severe Cardiac resynchronization therapy defibrillator (COTTON FEEDER-D) in place Complete heart block HFrEF (heart failure with reduced ejection fraction) Hodgkins lymphoma Hypocalcemia Hypotension (arterial) Hypothyroid LBBB (left bundle branch block) NICM (nonischemic cardiomyopathy) Non-rheumatic aortic stenosis Pacemaker Pulmonary embolism Functional capacity: independent ambulation Family History Family History Father No problems noted. Mother No problems noted. Surgical History Surgical History H/O splenectomy History of appendectomy History of cardiac pacemaker S/P TAVR (transcatheter aortic valve replacement) (~10/29/20) Social History Social History Household Members: Family Housing: House Do you presently have visiting nurse or other home services: No Alcohol intake: never Patient Tobacco Use Status: Never used Tobacco service: Yes Current occupational status: employed Meds Allergies Allergy/AdvReac Type Severity Reaction Status Date / Time No Known Allergies Allergy Verified 12/21/20 14:29 [No Known Allergies*] Active Medications: Current Medications Generic Name Dose Route Start Last Admin Trade Name Freq PRN Reason Stop Dose Admin Acetaminophen 650 mg 01/13/21 12:51 Acetaminophen 325 Mg Tablet PO Q6H PRN Pain, Mild (Pain Scale 1-3) Furosemide 20 mg 01/14/21 09:45 01/14/21 10:33 Furosemide 20 Mg/2 Ml Vial IVPUSH 20 mg Q12H [facility] Administration Protocol Ondansetron HCl 4 mg 01/13/21 12:51 Ondansetron Hcl 4 Mg/2 Ml Vial IVPUSH Q8H PRN Nausea and Vomiting Pharmacy Consult 1 each 01/13/21 12:16 Consult Rx Perform Med Rec MISCELLANE ONCE PRN Consult order Sodium Chloride 3 ml 01/13/21 16:00 01/14/21 09:13 0.9 % Sodium Chloride Flush 3 Ml Syringe IVFLUSH 3 ml QSHIFT [facility] Administration Home Medications Medication Instructions Recorded Confirmed Last Taken Type apixaban 5 mg tablet 5 mg PO BID 11/09/20 01/13/21 01/13/21 History furosemide 40 mg tablet 40 mg PO BID tab 12/21/20 01/13/21 01/13/21 History Exam Exam Date and Time: January 14, 2021 114 Height,Weight and Vital Signs: Height 5 ft 11 in Weight 75 kg Last Vital Signs Temp 98 F 01/14/21 11:07 Pulse 91 01/14/21 11:07 Resp 18 01/14/21 11:07 BP 107/65 01/14/21 11:07 Pulse Ox 94 01/14/21 11:07 Pertinent Lab Results Pertinent Lab Results: Laboratory Tests 01/13/21 01/13/21 01/13/21 08:39 08:39 08:39 WBC 11.3 H RBC 3.40 L Hgb 6.6 L* D Hct 22.5 L D MCV 66.2 L MCH 19.4 L MCHC 29.3 L RDW 19.9 H Plt Count 419 H MPV 10.1 Immature Gran % (Auto) 0.7 H Neut % (Auto) 84.9 H Lymph % (Auto) 2.6 L [place] % (Auto) 10.8 Eos % (Auto) 0.3 Baso % (Auto) 0.7 Lymph # (Auto) 0.3 L [place] # (Auto) 1.2 Eos # (Auto) 0.0 Baso # (Auto) 0.1 Abs Immat Gran (auto) 0.08 H Absolute Neuts (auto) 9.6 H Absolute Nucleated RBC 0.300 H Nucleated RBC % (auto) 2.7 H PT INR APTT Sodium Potassium Chloride Carbon Dioxide Anion Gap BUN Creatinine Estim Creat Clear Calc Estimated GFR Random Glucose Calcium Magnesium Total Bilirubin Direct Bilirubin AST ALT Alkaline Phosphatase Troponin I High Sens < 3.5 B-Natriuretic Peptide 110 H Total Protein Albumin Lipase Urine Color Urine Appearance Urine pH Ur Specific [place] Urine Protein Urine Glucose (UA) Urine Ketones Urine Blood Urine Nitrite Ur Leukocyte Esterase Stool Occult Blood Coronavirus (PCR) Influenza Type A (PCR) Influenza Type B (PCR) RSV RNA Qual (PCR) Blood Type Antibody Screen Crossmatch 01/13/21 01/13/21 01/13/21 08:39 08:40 08:40 WBC RBC Hgb Hct MCV MCH MCHC RDW Plt Count MPV Immature Gran % (Auto) Neut % (Auto) Lymph % (Auto) [place] % (Auto) Eos % (Auto) Baso % (Auto) Lymph # (Auto) [place] # (Auto) Eos # (Auto) Baso # (Auto) Abs Immat Gran (auto) Absolute Neuts (auto) Absolute Nucleated RBC Nucleated RBC % (auto) PT 27.3 H INR 2.4 H APTT 59.7 H Sodium 136 Potassium 3.9 Chloride 100 Carbon Dioxide 24 Anion Gap 16 BUN 19 H Creatinine 0.81 Estim Creat Clear Calc 105.4 Estimated GFR > 60 Random Glucose 99 Calcium 8.9 D Magnesium 1.9 Total Bilirubin 0.8 Direct Bilirubin 0.3 AST 17 ALT 9 Alkaline Phosphatase 65 Troponin I High Sens B-Natriuretic Peptide Total Protein 6.7 Albumin 3.6 Lipase 55 Urine Color YELLOW Urine Appearance CLEAR Urine pH 6.5 Ur Specific [place] 1.010 Urine Protein NEG Urine Glucose (UA) NEG Urine Ketones NEG Urine Blood NEG Urine Nitrite NEG Ur Leukocyte Esterase NEG Stool Occult Blood Coronavirus (PCR) Influenza Type A (PCR) Influenza Type B (PCR) RSV RNA Qual (PCR) Blood Type Antibody Screen Crossmatch 01/13/21 01/13/21 01/13/21 09:05 09:05 09:15 WBC RBC Hgb Hct MCV MCH MCHC RDW Plt Count MPV Immature Gran % (Auto) Neut % (Auto) Lymph % (Auto) [place] % (Auto) Eos % (Auto) Baso % (Auto) Lymph # (Auto) [place] # (Auto) Eos # (Auto) Baso # (Auto) Abs Immat Gran (auto) Absolute Neuts (auto) Absolute Nucleated RBC Nucleated RBC % (auto) PT INR APTT Sodium Potassium Chloride Carbon Dioxide Anion Gap BUN Creatinine Estim Creat Clear Calc Estimated GFR Random Glucose Calcium Magnesium Total Bilirubin Direct Bilirubin AST ALT Alkaline Phosphatase Troponin I High Sens B-Natriuretic Peptide Total Protein Albumin Lipase Urine Color Urine Appearance Urine pH Ur Specific [place] Urine Protein Urine Glucose (UA) Urine Ketones Urine Blood Urine Nitrite Ur Leukocyte Esterase Stool Occult Blood POSITIVE Coronavirus (PCR) NEGATIVE Influenza Type A (PCR) NEGATIVE Influenza Type B (PCR) NEGATIVE RSV RNA Qual (PCR) NEGATIVE Blood Type A Positive Antibody Screen NEGATIVE Crossmatch See Detail 01/13/21 01/14/21 01/14/21 18:39 06:08 06:08 WBC 8.5 RBC 3.71 L Hgb 7.9 L 7.7 L Hct 26.1 L 25.9 L MCV 69.8 L MCH 20.8 L MCHC 29.7 L RDW 22.0 H Plt Count 404 H MPV 10.3 Immature Gran % (Auto) 0.5 H Neut % (Auto) 75.5 H Lymph % (Auto) 4.6 L [place] % (Auto) 15.4 H Eos % (Auto) 2.8 Baso % (Auto) 1.2 Lymph # (Auto) 0.4 L [place] # (Auto) 1.3 H Eos # (Auto) 0.2 Baso # (Auto) 0.1 Abs Immat Gran (auto) 0.04 H Absolute Neuts (auto) 6.4 Absolute Nucleated RBC 0.290 H Nucleated RBC % (auto) 3.4 H PT 16.8 H D INR 1.5 H APTT Sodium Potassium Chloride Carbon Dioxide Anion Gap BUN Creatinine Estim Creat Clear Calc Estimated GFR Random Glucose Calcium Magnesium Total Bilirubin Direct Bilirubin AST ALT Alkaline Phosphatase Troponin I High Sens B-Natriuretic Peptide Total Protein Albumin Lipase Urine Color Urine Appearance Urine pH Ur Specific [place] Urine Protein Urine Glucose (UA) Urine Ketones Urine Blood Urine Nitrite Ur Leukocyte Esterase Stool Occult Blood Coronavirus (PCR) Influenza Type A (PCR) Influenza Type B (PCR) RSV RNA Qual (PCR) Blood Type Antibody Screen Crossmatch 01/14/21 06:08 WBC RBC Hgb Hct MCV MCH MCHC RDW Plt Count MPV Immature Gran % (Auto) Neut % (Auto) Lymph % (Auto) [place] % (Auto) Eos % (Auto) Baso % (Auto) Lymph # (Auto) [place] # (Auto) Eos # (Auto) Baso # (Auto) Abs Immat Gran (auto) Absolute Neuts (auto) Absolute Nucleated RBC Nucleated RBC % (auto) PT INR APTT Sodium 137 Potassium 4.3 Chloride 105 Carbon Dioxide 25 Anion Gap 11 L BUN 14 Creatinine 0.74 Estim Creat Clear Calc 115.4 Estimated GFR > 60 Random Glucose 93 Calcium 8.4 Magnesium Total Bilirubin Direct Bilirubin AST ALT Alkaline Phosphatase Troponin I High Sens B-Natriuretic Peptide Total Protein Albumin Lipase Urine Color Urine Appearance Urine pH Ur Specific [place] Urine Protein Urine Glucose (UA) Urine Ketones Urine Blood Urine Nitrite Ur Leukocyte Esterase Stool Occult Blood Coronavirus (PCR) Influenza Type A (PCR) Influenza Type B (PCR) RSV RNA Qual (PCR) Blood Type Antibody Screen Crossmatch Airway Mallampati Class: II TM Dist: >3cm Neck ROM: Full Assessment and Plan Assessment Anesthesia Assessment: Anesthesia Plan Discussed and Chart Reviewed Final Anesthetic Review NPO: Yes ASA Class: IV Final Preanesthetic Review: No Changes in Pt Med Stat, Meds/Allgs Chart Reviewed, Consent Obtained/Reviewed and Anes Risks/Benef Reviewed Patient Risk: High Procedure Risk: Low Assessment/Block/Sedation in SS: Assess/Block/Sedation-SS Anesthetic Plan Anesthetic Plan: MAC: Disposition: Standard PACU
--- NOTE | 2021-01-14 12:26 | PC.NURSE ---
Patient arrived to [facility] with a #20 PRN catheter in right wrist. Asymptomatic, Flushed well.
--- NOTE | 2021-01-14 12:41 | PC.NURSE ---
Patient arrived to [facility] wearing one gold wedding band. This removed and placed in blue labeled cup and placed in cabinet by this nurse.
--- NOTE | 2021-01-14 13:11 | PM.OP ---
Brief Operative Note Date of Service: 01/14/21 Pre-op diagnosis: anemia, heme pos stool Post-op diagnosis: same (gastric polyps) Procedure: EGD with biopsy Surgeon: London Leal Anesthesia: MAC Was an Technical Operations Specialist used for this Procedure?: No Estimated blood loss (mL): 5 Pathology: other (bx gastric polyps) Condition: stable Disposition: PACU
--- NOTE | 2021-01-14 13:13 | PM.EVENT ---
Event Note Date of Service: 01/14/21 Event Note: EGD note dictated multiple gastric polyps, nonbleeding, biopsied no ulcer plan colonoscopy tomorrow.
[2021-01-14] MEDS: PEG 3350/Na Sulf,Bicarb,Cl/KCL 4,000 ML SOLN.RECON 4000 ML PO (18:05)
[2021-01-14] MEDS: ondansetron HCL 4 MG/2 ML VIAL IVPUSH (19:12)
--- NOTE | 2021-01-14 20:53 | OP_ITS ---
SURGEON: London Leal MD INDICATIONS: Anemia and Hemoccult-positive stools. PREOPERATIVE DIAGNOSIS: POSTOPERATIVE DIAGNOSIS: PROCEDURE PERFORMED: Upper endoscopy with biopsy. ESTIMATED BLOOD LOSS: COMPLICATIONS: ANESTHESIA: Monitored anesthesia care. ASSISTANTS: SPECIMENS: DESCRIPTION OF PROCEDURE: History and physical was performed. The risks and benefits of the procedure were explained to the patient. Informed consent was obtained. The patient was placed in the left lateral decubitus position. An Olympus video gastroscope was introduced into the esophagus, stomach, and duodenum. Examination was performed. The scope was removed. He tolerated the procedure well and was taken to recovery area in stable condition. FINDINGS: Esophagus: There was prominent glycogenic acanthosis. Stomach: The stomach showed multiple polyps consistent with the patient's history of [place] syndrome. There appeared to be no active bleeding. Two biopsies were obtained from the body of the stomach, where polyps were prominent. Duodenum: There were polypoid changes to the bulb and second portion. There was no ulcer and no bleeding source was identified. IMPRESSION: Gastric polyps, no upper GI bleeding source identified. RECOMMENDATIONS: 1. Follow up the biopsy results. 2. Continue proton pump inhibitor empirically. 3. Colonoscopy to assess for any source for lower GI blood loss. MD ELLYN Andersen/LETICIA / [phone]
[2021-01-15] VITALS (11 sets, daily range): BP systolic 93–112; BP diastolic 51–64; PULSE 84–101; RESP 14–20; TEMP 36.3–37.4; O2SAT 6–100
--- NOTE | 2021-01-15 06:13 | MHC.SHP ---
Pre-Procedural Eval Section A Date of Service: 01/15/21 The patient is an INPATIENT: Yes Changes since office visit: No Cold of Flu in the past 2 weeks, No New Medical Problems, No Changes in Medication and No Patient answered all questions The History & Physical has been completed within 30 days and I have reviewed it.: Yes Section B Chief Complaint: Anemia Allergies: Allergies Allergy/AdvReac Type Severity Reaction Status Date / Time No Known Allergies Allergy Verified 12/21/20 14:29 [No Known Allergies*] Plan I have reviewed the history and physical and performed a pertinent physical examination on my patient. No changes have occurred unless specified.
[2021-01-15 06:17] LABS: MANUAL DIFF FLAG NO
[2021-01-15 06:25] LABS: Basophils Absolute Auto 0.1 X10*3/uL (0.0-0.2); Eosinophils Absolute Auto 0.2 X10*3/uL (0.0-0.4); Eosinophils Percent Auto 2.9 % (0-4); Hematocrit 27.7 % (42-52); Hemoglobin 8.4 g/dl (14.0-18.0); Imm Gran Abs Auto 0.04 X10*3/uL (0.00-0.03); Imm Gran Pct Auto 0.5 % (0.0-0.4); Lymphocytes Absolute Auto 0.5 X10*3/uL (1.2-4.9); Lymphocytes Percent Auto 6.3 % (20-40); Mean Corpuscular HGB Conc 30.3 g/dl (31.0-36.0); Mean Corpuscular Hemoglobin 21.5 pg (27.0-33.0); Mean Corpuscular Volume 70.8 fL (80-98); Mean Platelet Volume 10.3 fL (9.4-12.4); Monocytes Absolute Auto 1.2 X10*3/uL (0.1-1.2); Monocytes Percent Auto 14.8 % (2-11); Neutrophils Absolute Auto 5.8 X10*3/uL (2.0-8.3); Neutrophils Percent Auto 74.5 % (45-73); Platelet Count 352 X10*3/uL (160-400); Red Blood Count 3.91 X10*6/uL (4.60-5.80); Red Cell Distribution Width 23.4 % (11.0-16.0); White Blood Count 7.8 X10*3/uL (4.8-10.8)
[2021-01-15 06:31] LABS: NRBC Pct Auto 2.9 /100WBC (0.0-0.2)
[2021-01-15 06:46] LABS: INTERNATIONAL NORM RATIO 1.4 (0.9-1.1); Prothrombin Time 16.3 SEC (9.9-13.0)
[2021-01-15 06:52] LABS: Anion Gap 14 (12-20); Blood Urea Nitrogen 12 mg/dL (9-16); Calcium 8.3 mg/dL (8.4-10.2); Carbon Dioxide 25 mmol/L (22-29); Chloride 102 mmol/L (96-108); Creatinine Clr Calc Pharmacy 118.6; Estimated Glomerular Filt Rate > 60; Glucose Random 84 mg/dL (60-115); Potassium 3.9 mmol/L (3.3-5.1); Sodium 137 mmol/L (135-145)
[2021-01-15] MEDS: Sodium Phosphate,Mono-Dibasic 133 ML ENEMA PR ×2 (08:27)
[2021-01-15] MEDS: 0.9 % Sodium Chloride Flush 3 ML SYRINGE IVFLUSH ×3 (08:27→23:33)
--- NOTE | 2021-01-15 09:13 | P.CONAN_ITS ---
[facility] Active Problems Active Problems: All Active Problems (Updated 01/14/21 @ 11:35 by Britany hansen MD) Acute on chronic diastolic (congestive) heart failure (Acute) GIB (gastrointestinal bleeding) (Acute) Acute blood loss anemia (Acute) Symptomatic anemia (Acute) Pulmonary embolism (Acute) Cardiac resynchronization therapy defibrillator (LUMP MACHINE OPERATOR-D) in place (Acute) Encounter for interrogation of cardiac defibrillator (Acute) S/P TAVR (transcatheter aortic valve replacement) (Acute ~10/29/20) Hodgkin lymphoma (Acute) [place] syndrome (Acute) Anemia (Acute) Fecal occult blood test positive (Acute) Shortness of breath (Acute) Bilateral pulmonary embolism (Acute) Congestive heart failure (Acute) Hyperkalemia (Acute) Recurrent pleural effusion on right (Acute) Hypothyroid (Acute) Hypocalcemia (Acute) Non-rheumatic aortic stenosis (Acute) Past Medical History Medical History Aortic stenosis, severe Cardiac resynchronization therapy defibrillator (LUMP MACHINE OPERATOR-D) in place Complete heart block HFrEF (heart failure with reduced ejection fraction) Hodgkins lymphoma Hypocalcemia Hypotension (arterial) Hypothyroid LBBB (left bundle branch block) NICM (nonischemic cardiomyopathy) Non-rheumatic aortic stenosis Pacemaker Pulmonary embolism Functional capacity: independent ambulation Family History Family History Father No problems noted. Mother No problems noted. Surgical History Surgical History H/O splenectomy History of appendectomy History of cardiac pacemaker S/P TAVR (transcatheter aortic valve replacement) (~10/29/20) Social History Social History Household Members: Family Housing: House Do you presently have visiting nurse or other home services: No Alcohol intake: never Patient Tobacco Use Status: Never used Tobacco service: Yes Current occupational status: employed Meds Allergies Allergy/AdvReac Type Severity Reaction Status Date / Time No Known Allergies Allergy Verified 12/21/20 14:29 [No Known Allergies*] Active Medications: Current Medications Generic Name Dose Route Start Last Admin Trade Name Freq PRN Reason Stop Dose Admin Acetaminophen 650 mg 01/13/21 12:51 Acetaminophen 325 Mg Tablet PO Q6H PRN Pain, Mild (Pain Scale 1-3) Ondansetron HCl 4 mg 01/13/21 12:51 01/14/21 19:12 Ondansetron Hcl 4 Mg/2 Ml Vial IVPUSH 4 mg Q8H PRN Administration Nausea and Vomiting Pharmacy Consult 1 each 01/13/21 12:16 Consult Rx Perform Med Rec MISCELLANE ONCE PRN Consult order Sodium Chloride 3 ml 01/13/21 16:00 01/15/21 08:27 0.9 % Sodium Chloride Flush 3 Ml Syringe IVFLUSH 3 ml QSHIFT JERRELL Administration Home Medications Medication Instructions Recorded Confirmed Last Taken Type apixaban 5 mg tablet 5 mg PO BID 11/09/20 01/13/21 01/14/21 06:00 History furosemide 40 mg tablet 40 mg PO BID tab 12/21/20 01/13/21 01/14/21 06:00 History Exam Exam Date and Time: January 15, [id number] Height,Weight and Vital Signs: Height 5 ft 11 in Weight 75 kg Last Vital Signs Temp 98.8 F 01/15/21 07:25 Pulse 95 01/15/21 07:25 Resp 18 01/15/21 07:25 BP 110/58 L 01/15/21 07:25 Pulse Ox 95 01/15/21 07:25 Pertinent Lab Results Pertinent Lab Results: Laboratory Tests 01/13/21 01/13/21 01/13/21 08:39 08:39 08:39 WBC 11.3 H RBC 3.40 L Hgb 6.6 L* D Hct 22.5 L D MCV 66.2 L MCH 19.4 L MCHC 29.3 L RDW 19.9 H Plt Count 419 H MPV 10.1 Immature Gran % (Auto) 0.7 H Neut % (Auto) 84.9 H Lymph % (Auto) 2.6 L [place] % (Auto) 10.8 Eos % (Auto) 0.3 Baso % (Auto) 0.7 Lymph # (Auto) 0.3 L [place] # (Auto) 1.2 Eos # (Auto) 0.0 Baso # (Auto) 0.1 Abs Immat Gran (auto) 0.08 H Absolute Neuts (auto) 9.6 H Absolute Nucleated RBC 0.300 H Nucleated RBC % (auto) 2.7 H Smear Path Review SEE NOTE PT INR APTT Sodium Potassium Chloride Carbon Dioxide Anion Gap BUN Creatinine Estim Creat Clear Calc Estimated GFR Random Glucose Calcium Magnesium Total Bilirubin Direct Bilirubin AST ALT Alkaline Phosphatase Troponin I High Sens < 3.5 B-Natriuretic Peptide 110 H Total Protein Albumin Lipase Urine Color Urine Appearance Urine pH Ur Specific [place] Urine Protein Urine Glucose (UA) Urine Ketones Urine Blood Urine Nitrite Ur Leukocyte Esterase Stool Occult Blood Coronavirus (PCR) Influenza Type A (PCR) Influenza Type B (PCR) RSV RNA Qual (PCR) Blood Type Antibody Screen Crossmatch 01/13/21 01/13/21 01/13/21 08:39 08:40 08:40 WBC RBC Hgb Hct MCV MCH MCHC RDW Plt Count MPV Immature Gran % (Auto) Neut % (Auto) Lymph % (Auto) [place] % (Auto) Eos % (Auto) Baso % (Auto) Lymph # (Auto) [place] # (Auto) Eos # (Auto) Baso # (Auto) Abs Immat Gran (auto) Absolute Neuts (auto) Absolute Nucleated RBC Nucleated RBC % (auto) Smear Path Review PT 27.3 H INR 2.4 H APTT 59.7 H Sodium 136 Potassium 3.9 Chloride 100 Carbon Dioxide 24 Anion Gap 16 BUN 19 H Creatinine 0.81 Estim Creat Clear Calc 105.4 Estimated GFR > 60 Random Glucose 99 Calcium 8.9 D Magnesium 1.9 Total Bilirubin 0.8 Direct Bilirubin 0.3 AST 17 ALT 9 Alkaline Phosphatase 65 Troponin I High Sens B-Natriuretic Peptide Total Protein 6.7 Albumin 3.6 Lipase 55 Urine Color YELLOW Urine Appearance CLEAR Urine pH 6.5 Ur Specific [place] 1.010 Urine Protein NEG Urine Glucose (UA) NEG Urine Ketones NEG Urine Blood NEG Urine Nitrite NEG Ur Leukocyte Esterase NEG Stool Occult Blood Coronavirus (PCR) Influenza Type A (PCR) Influenza Type B (PCR) RSV RNA Qual (PCR) Blood Type Antibody Screen Crossmatch 01/13/21 01/13/21 01/13/21 09:05 09:05 09:15 WBC RBC Hgb Hct MCV MCH MCHC RDW Plt Count MPV Immature Gran % (Auto) Neut % (Auto) Lymph % (Auto) [place] % (Auto) Eos % (Auto) Baso % (Auto) Lymph # (Auto) [place] # (Auto) Eos # (Auto) Baso # (Auto) Abs Immat Gran (auto) Absolute Neuts (auto) Absolute Nucleated RBC Nucleated RBC % (auto) Smear Path Review PT INR APTT Sodium Potassium Chloride Carbon Dioxide Anion Gap BUN Creatinine Estim Creat Clear Calc Estimated GFR Random Glucose Calcium Magnesium Total Bilirubin Direct Bilirubin AST ALT Alkaline Phosphatase Troponin I High Sens B-Natriuretic Peptide Total Protein Albumin Lipase Urine Color Urine Appearance Urine pH Ur Specific [place] Urine Protein Urine Glucose (UA) Urine Ketones Urine Blood Urine Nitrite Ur Leukocyte Esterase Stool Occult Blood POSITIVE Coronavirus (PCR) NEGATIVE Influenza Type A (PCR) NEGATIVE Influenza Type B (PCR) NEGATIVE RSV RNA Qual (PCR) NEGATIVE Blood Type A Positive Antibody Screen NEGATIVE Crossmatch See Detail 01/13/21 01/14/21 01/14/21 18:39 06:08 06:08 WBC 8.5 RBC 3.71 L Hgb 7.9 L 7.7 L Hct 26.1 L 25.9 L MCV 69.8 L MCH 20.8 L MCHC 29.7 L RDW 22.0 H Plt Count 404 H MPV 10.3 Immature Gran % (Auto) 0.5 H Neut % (Auto) 75.5 H Lymph % (Auto) 4.6 L [place] % (Auto) 15.4 H Eos % (Auto) 2.8 Baso % (Auto) 1.2 Lymph # (Auto) 0.4 L [place] # (Auto) 1.3 H Eos # (Auto) 0.2 Baso # (Auto) 0.1 Abs Immat Gran (auto) 0.04 H Absolute Neuts (auto) 6.4 Absolute Nucleated RBC 0.290 H Nucleated RBC % (auto) 3.4 H Smear Path Review PT 16.8 H D INR 1.5 H APTT Sodium Potassium Chloride Carbon Dioxide Anion Gap BUN Creatinine Estim Creat Clear Calc Estimated GFR Random Glucose Calcium Magnesium Total Bilirubin Direct Bilirubin AST ALT Alkaline Phosphatase Troponin I High Sens B-Natriuretic Peptide Total Protein Albumin Lipase Urine Color Urine Appearance Urine pH Ur Specific [place] Urine Protein Urine Glucose (UA) Urine Ketones Urine Blood Urine Nitrite Ur Leukocyte Esterase Stool Occult Blood Coronavirus (PCR) Influenza Type A (PCR) Influenza Type B (PCR) RSV RNA Qual (PCR) Blood Type Antibody Screen Crossmatch 01/14/21 01/15/21 01/15/21 06:08 05:53 05:53 WBC RBC Hgb Hct MCV MCH MCHC RDW Plt Count MPV Immature Gran % (Auto) Neut % (Auto) Lymph % (Auto) [place] % (Auto) Eos % (Auto) Baso % (Auto) Lymph # (Auto) [place] # (Auto) Eos # (Auto) Baso # (Auto) Abs Immat Gran (auto) Absolute Neuts (auto) Absolute Nucleated RBC Nucleated RBC % (auto) Smear Path Review PT 16.3 H INR 1.4 H APTT Sodium 137 137 Potassium 4.3 3.9 Chloride 105 102 Carbon Dioxide 25 25 Anion Gap 11 L 14 BUN 14 12 Creatinine 0.74 0.72 Estim Creat Clear Calc 115.4 118.6 Estimated GFR > 60 > 60 Random Glucose 93 84 Calcium 8.4 8.3 L Magnesium Total Bilirubin Direct Bilirubin AST ALT Alkaline Phosphatase Troponin I High Sens B-Natriuretic Peptide Total Protein Albumin Lipase Urine Color Urine Appearance Urine pH Ur Specific [place] Urine Protein Urine Glucose (UA) Urine Ketones Urine Blood Urine Nitrite Ur Leukocyte Esterase Stool Occult Blood Coronavirus (PCR) Influenza Type A (PCR) Influenza Type B (PCR) RSV RNA Qual (PCR) Blood Type Antibody Screen Crossmatch 01/15/21 05:53 WBC 7.8 RBC 3.91 L Hgb 8.4 L Hct 27.7 L MCV 70.8 L MCH 21.5 L MCHC 30.3 L RDW 23.4 H Plt Count 352 MPV 10.3 Immature Gran % (Auto) 0.5 H Neut % (Auto) 74.5 H Lymph % (Auto) 6.3 L [place] % (Auto) 14.8 H Eos % (Auto) 2.9 Baso % (Auto) 1.0 Lymph # (Auto) 0.5 L [place] # (Auto) 1.2 Eos # (Auto) 0.2 Baso # (Auto) 0.1 Abs Immat Gran (auto) 0.04 H Absolute Neuts (auto) 5.8 Absolute Nucleated RBC 0.230 H Nucleated RBC % (auto) 2.9 H Smear Path Review PT INR APTT Sodium Potassium Chloride Carbon Dioxide Anion Gap BUN Creatinine Estim Creat Clear Calc Estimated GFR Random Glucose Calcium Magnesium Total Bilirubin Direct Bilirubin AST ALT Alkaline Phosphatase Troponin I High Sens B-Natriuretic Peptide Total Protein Albumin Lipase Urine Color Urine Appearance Urine pH Ur Specific [place] Urine Protein Urine Glucose (UA) Urine Ketones Urine Blood Urine Nitrite Ur Leukocyte Esterase Stool Occult Blood Coronavirus (PCR) Influenza Type A (PCR) Influenza Type B (PCR) RSV RNA Qual (PCR) Blood Type Antibody Screen Crossmatch Airway Mallampati Class: II TM Dist: >3cm Neck ROM: Full Assessment and Plan Assessment Anesthesia Assessment: Anesthesia Plan Discussed and Chart Reviewed Final Anesthetic Review NPO: Yes ASA Class: IV Final Preanesthetic Review: No Changes in Pt Med Stat, Meds/Allgs Chart Reviewed, Consent Obtained/Reviewed and Anes Risks/Benef Reviewed Patient Risk: High Procedure Risk: Low Assessment/Block/Sedation in SS: Assess/Block/Sedation-SS Anesthetic Plan Anesthetic Plan: MAC: Disposition: Standard PACU
--- NOTE | 2021-01-15 10:31 | PM.OP ---
Brief Operative Note Date of Service: 01/15/21 Pre-op diagnosis: anemia, heme pos Post-op diagnosis: same (colon polyps) Procedure: colonoscopy Surgeon: London Leal Anesthesia: MAC Was an Pharmacy Technician Instructor used for this Procedure?: No Estimated blood loss (mL): 0 Pathology: none sent Condition: stable Disposition: PACU
--- NOTE | 2021-01-15 10:32 | PM.EVENT ---
Event Note Date of Service: 01/15/21 Event Note: colonoscopy note dictated multiple benign appearing polyps seen consistent with h/o [place] syndrome, no source for gi bleeding identified. Rec: advance diet d/c when stable my office will arrange outpatient capsule endoscopy
--- NOTE | 2021-01-15 11:09 | HO.POSTANES ---
Post Anesthesia Evaluation Post Anesthesia Evaluation Vital Signs: Vital Signs Temp Pulse Resp BP Pulse Ox 01/15/21 11:00 84 16 103/58 L 96 01/15/21 10:46 84 16 97/58 L 97 01/15/21 10:31 97.4 F 95 16 95/55 L 96 01/15/21 09:08 98.4 F 92 18 112/64 98 01/15/21 07:25 98.8 F 95 18 110/58 L 95 01/15/21 04:00 98.7 F 101 H 18 106/58 L 6 L 01/14/21 23:10 97.5 F 96 18 103/56 L 99 Anesthesia: Monitored Mental Status: Sedated (Sleepy) Pain Control: Satisfactory Nausea/Vomiting: None Hydration: Adequate Anesthesia-Related Issues: No Anes. Related Issues Comments: Patient just had colonoscopy. Sleepy. No apparent anesthetic complications from anesthesia for EGD
--- NOTE | 2021-01-15 11:10 | OP_ITS ---
SURGEON: London Leal MD INDICATIONS: Anemia and Hemoccult-positive stools. PREOPERATIVE DIAGNOSIS: POSTOPERATIVE DIAGNOSIS: PROCEDURE PERFORMED: Colonoscopy to the terminal ileum. ESTIMATED BLOOD LOSS: COMPLICATIONS: ANESTHESIA: ASSISTANTS: SPECIMENS: MEDICATIONS: Monitored anesthesia care. DESCRIPTION OF PROCEDURE: History and physical performed. The risks and benefits of the procedure were explained to the patient. Informed consent was obtained. The patient was placed in the left lateral decubitus position. A digital rectal exam was performed and was found to be normal. The Olympus pediatric video colonoscope was introduced into the rectum and advanced to the cecum without difficulty. The cecum was identified by transillumination, palpation, and identification of ileocecal valve. Examination was performed and the scope was removed. He tolerated the procedure well and was taken to recovery area in stable condition. FINDINGS: The terminal ileum was examined and appeared normal for approximately 5 cm. There was a large amount of liquid stool and formed stool limiting the sensitivity examination for detection of lesions. There were multiple polyps measuring up to 8 to 10 mm consistent with hamartomatous polyps given the patient's underlying history of Val syndrome. No polypectomies were performed as the patient had been taking Eliquis up until the morning of admission. No source for GI blood loss to cause his hematocrit of 22.5 was identified in this procedure. Retroflexed examination showed large internal hemorrhoids. There was a 20 mm lipoma in the mid transverse colon. IMPRESSION: Colon polyps, no source for GI blood loss identified. RECOMMENDATIONS: 1. Advanced diet. 2. Discharge when stable. 3. Anticoagulation may be restarted. 4. Capsule endoscopy will be arranged as outpatient. 5. Routine screening colonoscopy within 1 year given today's prep. MD ELLYN Andersen/LETICIA / [phone] MTDCristofer
--- NOTE | 2021-01-15 11:20 | MHC.CM.PN ---
Home is the goal for dc and Colonoscopy done today. CM will follow for possible need to adjust the dc plan. Patient has expressed an interest in VNA services.
--- NOTE | 2021-01-15 13:25 | PM.DS ---
DS: Providers Provider Date of Service: 01/16/21 Date of admission: 01/13/21 12:51 Primary care physician: Yesica Kay MD Consults: 01/13/21 12:58 Consult to Gastroenterology Routine Consulting Provider: Laury Young Reason for consultation: gi bleed, anemia Has provider been notified: No 01/13/21 15:59 Consult to Cardiology Routine Consulting Provider: Hamilton Wyman Reason for consultation: Chronic heart failure 01/14/21 10:40 Consult to Hematology / Oncology Routine Consulting Provider: [facility] Oncology/Hematology Reason for consultation: Does he still need anticoagulation for PE? DS: Diagnosis Discharge Diagnosis (1) Acute blood loss anemia: Status: Acute DS: Medications Discharge Medications Home Medications: Home Medications Medication Instructions Recorded Confirmed apixaban 5 mg tablet 5 mg PO BID 11/09/20 01/13/21 furosemide 40 mg tablet 40 mg PO BID tab 12/21/20 01/13/21 Previous Rx's Medication Instructions Recorded aspirin 81 mg tablet,delayed 81 mg PO DAILY #90 tab 07/09/20 release eplerenone 25 mg tablet 25 mg PO DAILY #90 tab 07/09/20 levothyroxine 175 mcg tablet 175 mcg PO DAILY 90 Days #90 tab 07/15/20 DS: Summary Hospital Course Hospital Course: history of presenting illness Chief Complaint: Shortness of breath, dizziness and anemia 59-year-old gentleman with background history of Hodgkin's lymphoma for which he underwent radiation therapy many years ago. He has severe aortic stenosis, nonischemic cardiomyopathy with EF of 50 55% and recurrent pleural effusion, his last cardiac cath show non-obstructive disease, he says he last had colonoscopy within [facility] about a year ago and had polyps. He presents today with weakness, dizziness and shortness of breath and found to have severe anemia, hemoglobin of 6.6. Occult blood is positive, he is not report rectal bleeding or melana. He is on Eliquis 5 bid for history of pulmonary embolism and Aspirin 81 mg daily. hospital course 60 year old male with complex medical issues non ischemic cardiomyoptathy, severe , recurrent P. effusion, history of pulmonary embolism on eliquis presented with weakness, shortness of breath and dizziness and noted to have hemoglobin of 6.6, stool guaiac was positive patient denied hematochezia, melena or hematemesis, patient treated with IV Protonix, received 3 units of packed RBC hematocrit improved, Eliquis and aspirin were held patient underwent upper endoscopy that showed gastric polyps, no source of bleeding was found, subsequently patient underwent colonoscopy that showed multiple benign appearing polyps consistent with history of Val syndrome, no source of GI bleeding found, patient will have outpatient capsule endoscopy scheduled by Dr. Leal since patient hematocrit is stable , diet was advanced that he is tolerating well, case discussed with Dr. Merchant she recommend to discontinue Eliquis, due to extensive cardiac history Including recent aortic valve repair patient will be continued on aspirin, in regard to cardiomyopathy with chronic heart failure with preserved EF he will be continued on Lasix. he has been recommended to have outpatient follow-up with Cardiology, Oncology and Gastroenterology. Time Spent with Patient Time attestation: Total time spent providing and/or coordinating discharge services: Discharge coordination time: Greater than 30 minutes Quality: Stroke Does the patient have a stroke diagnosis?: No Physical Exam Vital Signs: Vital Signs: Last Vital Signs Temp 97.8 F 01/15/21 12:00 Pulse 90 01/15/21 12:00 Resp 20 01/15/21 12:00 BP 103/60 01/15/21 12:00 Pulse Ox 100 01/15/21 12:00 Body Mass Index 23.1 General: alert, oriented,no acute distress Resp: lungs clear to auscultation, no respiratory distress CVS regular rate rhythm, systolic murmur GI: abdomen soft, nontender, bowel sounds audible Skin: No rash Neuro: motor grossly intact Psych: appropriate affect DS: Data Data Completed and Pending Completed studies during hospitalization [Text1]: Procedures Transfusion of Nonautologous Red Blood Cells into Peripheral Vein, Percutaneous Approach (10/25/20) Pending studies at discharge: Pending at discharge 01/14/21 13:05 Surgical [PTH] Routine Labs on day of discharge: Laboratory Results - last 24 hr 01/13/21 01/15/21 01/15/21 08:39 05:53 05:53 WBC RBC Hgb Hct MCV MCH MCHC RDW Plt Count MPV Immature Gran % (Auto) Neut % (Auto) Lymph % (Auto) [place] % (Auto) Eos % (Auto) Baso % (Auto) Lymph # (Auto) [place] # (Auto) Eos # (Auto) Baso # (Auto) Abs Immat Gran (auto) Absolute Neuts (auto) Absolute Nucleated RBC Nucleated RBC % (auto) Smear Path Review SEE NOTE PT 16.3 H INR 1.4 H Sodium 137 Potassium 3.9 Chloride 102 Carbon Dioxide 25 Anion Gap 14 BUN 12 Creatinine 0.72 Estim Creat Clear Calc 118.6 Estimated GFR > 60 Random Glucose 84 Calcium 8.3 L 01/15/21 05:53 WBC 7.8 RBC 3.91 L Hgb 8.4 L Hct 27.7 L MCV 70.8 L MCH 21.5 L MCHC 30.3 L RDW 23.4 H Plt Count 352 MPV 10.3 Immature Gran % (Auto) 0.5 H Neut % (Auto) 74.5 H Lymph % (Auto) 6.3 L [place] % (Auto) 14.8 H Eos % (Auto) 2.9 Baso % (Auto) 1.0 Lymph # (Auto) 0.5 L [place] # (Auto) 1.2 Eos # (Auto) 0.2 Baso # (Auto) 0.1 Abs Immat Gran (auto) 0.04 H Absolute Neuts (auto) 5.8 Absolute Nucleated RBC 0.230 H Nucleated RBC % (auto) 2.9 H Smear Path Review PT INR Sodium Potassium Chloride Carbon Dioxide Anion Gap BUN Creatinine Estim Creat Clear Calc Estimated GFR Random Glucose Calcium Discharge Plan Discharge Patient Disposition: Home, Self-Care Discharge Diagnosis: acute blood loss anemia cardiomyopathy with chronic heart failure with preserved EF history of PE Referrals: Yesica Burden MD [Primary Care Provider] - 1 Week Discharge Medications: New omeprazole 20 mg capsule,delayed release(DR/EC) 20 mg PO DAILY Qty: 30 RF: 0 Continued levothyroxine 175 mcg tablet 175 mcg PO DAILY 90 Days Qty: 90 RF: 1 eplerenone 25 mg tablet 25 mg PO DAILY Qty: 90 RF: 4 aspirin 81 mg tablet,delayed release (DR/EC) 81 mg PO DAILY Qty: 90 RF: 4 furosemide 40 mg tablet 40 mg PO BID RF: 0 Discontinued Eliquis 5 mg tablet 5 mg PO BID RF: 0 Discharge Orders: Discharge Order (Routine); Ordered 01/16/21 Ordered By: Susan Perdomo Diet: advance to usual diet Activity on Discharge: As tolerated Stand Alone Forms: Patient Portal Discharge page Care Plan Goals: acute blood loss anemia, source of GI bleed not found, stop taking Eliquis continue taking aspirin and all other home medications, Dr. Leal will arrange for outpatient video capsule study. Take Prilosec 20 mg by mouth daily and discuss continued use with Dr Leal Health Concerns: acute blood loss anemia, cardiomyopathy, history of pulmonary embolism, hypothyroidism Plan of Treatment: outpatient follow-up with primary care physician, in 7-10 days, outpatient follow-up with Dr. Merchant in 2 weeks outpatient follow-up with Dr. Leal. Assessment: as above
--- NOTE | 2021-01-15 14:08 | PM.PNCARD ---
Subjective Subjective Date of Service: 01/15/21 Interval history: Feels OK. No new complaints. Review of Systems Review of Systems Yes all other systems are reviewed and are negative Constitutional: Reports fatigue and Reports weakness Cardiovascular: Reports as per HPI, Reports no additional cardiovascular complaints, Denies acrocyanosis, Denies cool extremities, Denies painful fingertips, Denies chest pain, Denies chest pain at rest, Denies diaphoresis, Denies syncope, Denies irregular heart rhythm, Denies claudication, Denies leg edema, Reports lightheadedness, Denies palpitations and Reports dyspnea Respiratory: Reports dyspnea Denies syncope and Reports weakness Endocrine: Reports fatigue and Denies palpitations Physical Exam Vital Signs: Last Vital Signs Temp 97.8 F 01/15/21 12:00 Pulse 90 01/15/21 12:00 Resp 20 01/15/21 12:00 BP 103/60 01/15/21 12:00 Pulse Ox 100 01/15/21 12:00 Body Mass Index 23.1 Const General: cooperative and no acute distress [facility] Other: Unremarkable Neck Neck: Yes normal visual inspection Chest Chest palpation & inspection: normal inspection of the chest Resp Auscultation: clear to auscultation bilaterally, no crackles and no wheezes Cardio Jugular venous distension: no JVD Palpation: normal PMI Heart sounds: S1 normal heart sound present, S2 normal heart sound present, no gallops, Murmur heart sound present systolic III/ and at the right sternal border and no rubs GI Palpation (GI): Soft to palpation Back/Spine/Pelvis Other: unremarkable Skin General skin exam: no rashes or lesions noted Neuro Cranial nerves: Yes Other cranial nerve findings present Extrem General: Yes no clubbing, cyanosis or edema Psych Mental Status: other Results Labs and Meds Result diagrams: 01/15/21 05:53 01/15/21 05:53 Lab results: Laboratory Results - last 24 hr 01/13/21 01/15/21 01/15/21 08:39 05:53 05:53 WBC RBC Hgb Hct MCV MCH MCHC RDW Plt Count MPV Immature Gran % (Auto) Neut % (Auto) Lymph % (Auto) [place] % (Auto) Eos % (Auto) Baso % (Auto) Lymph # (Auto) [place] # (Auto) Eos # (Auto) Baso # (Auto) Abs Immat Gran (auto) Absolute Neuts (auto) Absolute Nucleated RBC Nucleated RBC % (auto) Smear Path Review SEE NOTE PT 16.3 H INR 1.4 H Sodium 137 Potassium 3.9 Chloride 102 Carbon Dioxide 25 Anion Gap 14 BUN 12 Creatinine 0.72 Estim Creat Clear Calc 118.6 Estimated GFR > 60 Random Glucose 84 Calcium 8.3 L 01/15/21 05:53 WBC 7.8 RBC 3.91 L Hgb 8.4 L Hct 27.7 L MCV 70.8 L MCH 21.5 L MCHC 30.3 L RDW 23.4 H Plt Count 352 MPV 10.3 Immature Gran % (Auto) 0.5 H Neut % (Auto) 74.5 H Lymph % (Auto) 6.3 L [place] % (Auto) 14.8 H Eos % (Auto) 2.9 Baso % (Auto) 1.0 Lymph # (Auto) 0.5 L [place] # (Auto) 1.2 Eos # (Auto) 0.2 Baso # (Auto) 0.1 Abs Immat Gran (auto) 0.04 H Absolute Neuts (auto) 5.8 Absolute Nucleated RBC 0.230 H Nucleated RBC % (auto) 2.9 H Smear Path Review PT INR Sodium Potassium Chloride Carbon Dioxide Anion Gap BUN Creatinine Estim Creat Clear Calc Estimated GFR Random Glucose Calcium Progress Note: A&P Assessment and plan (1) Acute blood loss anemia: Status: Acute (2) S/P TAVR (transcatheter aortic valve replacement): Status: Acute (3) Acute on chronic diastolic (congestive) heart failure: Status: Acute (4) Cardiac resynchronization therapy defibrillator ([employer]-D) in place: Status: Acute (5) Pulmonary embolism: Status: Acute Assessment and Plan: Labs reviewed. Hemoglobin is 6.6 on arrival but improved to 8,4 after blood transfusions. Negative high sensitivity troponins. Cardiac BNP is 110. ICD interrogation was performed and this actually shows that he has been having fluid retention for the last month or so. Last echocardiogram from a month ago with LVEF 55-60% and normally functioning bioprosthetic aortic valve. He will need Aspirin due to the bioprosthetic valve. Eliquis being held. Continue with diuretics. Upon d/c, FU in office. Fall Risk Details Current Medications: Current Medications Generic Name Dose Route Start Last Admin Trade Name Freq PRN Reason Stop Dose Admin Acetaminophen 650 mg 01/13/21 12:51 Acetaminophen 325 Mg Tablet PO Q6H PRN Pain, Mild (Pain Scale 1-3) Ondansetron HCl 4 mg 01/13/21 12:51 01/14/21 19:12 Ondansetron Hcl 4 Mg/2 Ml Vial IVPUSH 4 mg Q8H PRN Administration Nausea and Vomiting Pharmacy Consult 1 each 01/13/21 12:16 Consult Rx Perform Med Rec MISCELLANE ONCE PRN Consult order Sodium Chloride 3 ml 01/13/21 16:00 01/15/21 08:27 0.9 % Sodium Chloride Flush 3 Ml Syringe IVFLUSH 3 ml QSHIFT JERRELL Administration Time Spent With Patient Time: Total time spent is greater than 50% in coordination of care (as documented) at patient's floor/unit and/or counseling patient: Time with patient: less than 15 minutes Progress Note: Quality Stroke Does the patient have a stroke diagnosis?: No Procedures Date of Service Date of Service: 01/15/21
--- NOTE | 2021-01-15 14:49 | P.PNIM_ITS ---
Subjective Subjective Date of Service: 01/15/21 Interval History: patient returned from colonoscopy feeling tired and fatigue, no active GI bleed noted since admission. ROS [employer] no headache, no dizziness GEN no fevers, no chills CVS no chest pain, no palpitation GI no nausea, no vomiting Physical Exam Vital Signs: Vital Signs: Last Vital Signs Temp 97.8 F 01/15/21 12:00 Pulse 90 01/15/21 12:00 Resp 20 01/15/21 12:00 BP 103/60 01/15/21 12:00 Pulse Ox 100 01/15/21 12:00 Body Mass Index 23.1 General: alert, oriented,no acute distress Neck: no JVD Resp: lungs clear to auscultation, no respiratory distress CVS regular rate rhythm, systolic murmur GI: abdomen soft, nontender, bowel sounds audible Skin: No rash Neuro: motor grossly intact Psych: appropriate affect Objective Data Current Medications Generic Name Dose Route Start Last Admin Trade Name Freq PRN Reason Stop Dose Admin Acetaminophen 650 mg 01/13/21 12:51 Acetaminophen 325 Mg Tablet PO Q6H PRN Pain, Mild (Pain Scale 1-3) Furosemide 40 mg 01/15/21 18:00 Furosemide 40 Mg Tablet PO BID@0900,1800 [facility] Protocol Ondansetron HCl 4 mg 01/13/21 12:51 01/14/21 19:12 Ondansetron Hcl 4 Mg/2 Ml Vial IVPUSH 4 mg Q8H PRN Administration Nausea and Vomiting Pharmacy Consult 1 each 01/13/21 12:16 Consult Rx Perform Med Rec MISCELLANE ONCE PRN Consult order Sodium Chloride 3 ml 01/13/21 16:00 01/15/21 08:27 0.9 % Sodium Chloride Flush 3 Ml Syringe IVFLUSH 3 ml QSHIFT [facility] Administration Labs CBC & Chem 7: 01/15/21 05:53 01/15/21 05:53 Labs: Laboratory Results - last 24 hr 01/13/21 01/15/21 01/15/21 08:39 05:53 05:53 WBC RBC Hgb Hct MCV MCH MCHC RDW Plt Count MPV Immature Gran % (Auto) Neut % (Auto) Lymph % (Auto) [place] % (Auto) Eos % (Auto) Baso % (Auto) Lymph # (Auto) [place] # (Auto) Eos # (Auto) Baso # (Auto) Abs Immat Gran (auto) Absolute Neuts (auto) Absolute Nucleated RBC Nucleated RBC % (auto) Smear Path Review SEE NOTE PT 16.3 H INR 1.4 H Sodium 137 Potassium 3.9 Chloride 102 Carbon Dioxide 25 Anion Gap 14 BUN 12 Creatinine 0.72 Estim Creat Clear Calc 118.6 Estimated GFR > 60 Random Glucose 84 Calcium 8.3 L 01/15/21 05:53 WBC 7.8 RBC 3.91 L Hgb 8.4 L Hct 27.7 L MCV 70.8 L MCH 21.5 L MCHC 30.3 L RDW 23.4 H Plt Count 352 MPV 10.3 Immature Gran % (Auto) 0.5 H Neut % (Auto) 74.5 H Lymph % (Auto) 6.3 L [place] % (Auto) 14.8 H Eos % (Auto) 2.9 Baso % (Auto) 1.0 Lymph # (Auto) 0.5 L [place] # (Auto) 1.2 Eos # (Auto) 0.2 Baso # (Auto) 0.1 Abs Immat Gran (auto) 0.04 H Absolute Neuts (auto) 5.8 Absolute Nucleated RBC 0.230 H Nucleated RBC % (auto) 2.9 H Smear Path Review PT INR Sodium Potassium Chloride Carbon Dioxide Anion Gap BUN Creatinine Estim Creat Clear Calc Estimated GFR Random Glucose Calcium Quality Stroke Does the patient have a stroke diagnosis?: No VTE Prior VTE?: Yes VTE Risk Level:: Medical - moderate - high VTE Device Contraindication: N/A - Device Ordered VTE Drug Contraindication: Treatment Not Indicated Assessment and Plan (1) Acute blood loss anemia: Status: Acute (2) GIB (gastrointestinal bleeding): Status: Acute (3) Symptomatic anemia: Status: Acute (4) Pulmonary embolism: Status: Acute (5) Acute on chronic diastolic (congestive) heart failure: Status: Acute (6) Shortness of breath: Status: Acute (7) Recurrent pleural effusion on right: Status: Acute Assessment and Plan: 60 year old male with complex medical issues non ischemic cardiomyoptathy, severe , recurrent P. effusion, history of pulmonary embolism on eliquis here with symptomatic anemia hemoglobin of 6.6 and FOBT positive 1/ Acute blood loss anemia no active bleed noted since admission, patient underwent upper endoscopy that showed gastric polyps no source of bleeding was found, subsequently underwent colonoscopy this morning that showed multiple benign appearing polyps, no bleeding was noted, since no source of bleeding has been found Dr. Leal will arrange for outpatient capsule video study will advance diet, spoke with Dr. Merchant she recommend to hold Eliquis will continue aspirin patient received 3 units of packed RBC hematocrit improved, will resume diet 2/Cardiomyopathy with chroic HFpEF-- at risk for decompensation, will DC IV L asix 20 bid, and placed on home dose of Lasix 40 b.i.d. Cardiology consultation 3.Generalized weakness due to anemia/ chronic medical conditions, recommend out of bed to chair and ambulation possible discharge in next 24 hrs. 4/Chronic Pleural effusion likley related to heart failure 5/h/o of Pulmonary embolism-- hold Eliquis and recommend outpatient follow-up with Dr. Merchant 6/Hypothyroidism-- resume Levothyroxine,
[2021-01-15] MEDS: Furosemide 40 MG TABLET PO (16:59)
[2021-01-15] MEDS: Aspirin Enteric Coated 81 MG TABLET.DR PO (16:59)
[2021-01-16 03:38] VITALS: BP 95/57; PULSE 92; RESP 16; TEMP 36.8; O2SAT 97
[2021-01-16] MEDS: Levothyroxine Sodium 175 MCG TABLET PO (05:46)
[2021-01-16 07:16] VITALS: BP 102/55; PULSE 90; RESP 20; TEMP 37.1; O2SAT 97
--- NOTE | 2021-01-16 08:17 | HO.POSTANES ---
Post Anesthesia Evaluation Post Anesthesia Evaluation Vital Signs: Vital Signs Temp Pulse Resp BP Pulse Ox 01/16/21 07:16 98.8 F 90 20 102/55 L 97 01/16/21 03:38 98.3 F 92 16 95/57 L 97 01/15/21 23:11 98.5 F 95 18 93/51 L 98 Anesthesia: Monitored Mental Status: Awake Pain Control: Satisfactory Nausea/Vomiting: None Hydration: Adequate Anesthesia-Related Issues: No Anes. Related Issues
[2021-01-16] MEDS: 0.9 % Sodium Chloride Flush 3 ML SYRINGE IVFLUSH (09:02)
[2021-01-16] MEDS: Furosemide 40 MG TABLET PO (09:02)
[2021-01-16] MEDS: Aspirin Enteric Coated 81 MG TABLET.DR PO (09:02)
--- NOTE | 2021-01-16 10:38 | MHC.CM.PN ---
D/C order: home, self care. Patient is [employer] [facility] [place] employee. Lives w/family at home. Can arrange own transport. Nurse to notify CM should patient require transportation accommodations.
--- NOTE | 2021-01-16 11:27 | PM.PNCARD ---
Subjective Subjective Date of Service: 01/16/21 Interval history: Feels ok. No complaints. Review of Systems Review of Systems Yes all other systems are reviewed and are negative Constitutional: Reports fatigue and Reports weakness Cardiovascular: Reports as per HPI, Reports no additional cardiovascular complaints, Denies acrocyanosis, Denies cool extremities, Denies painful fingertips, Denies chest pain, Denies chest pain at rest, Denies diaphoresis, Denies syncope, Denies irregular heart rhythm, Denies claudication, Denies leg edema, Reports lightheadedness, Denies palpitations and Reports dyspnea Respiratory: Reports dyspnea Denies syncope and Reports weakness Endocrine: Reports fatigue and Denies palpitations Physical Exam Vital Signs: Last Vital Signs Temp 98.8 F 01/16/21 07:16 Pulse 90 01/16/21 07:16 Resp 20 01/16/21 07:16 BP 102/55 L 01/16/21 07:16 Pulse Ox 97 01/16/21 07:16 Body Mass Index 23.1 Const General: cooperative and no acute distress [facility] Other: Unremarkable Neck Neck: Yes normal visual inspection Chest Chest palpation & inspection: normal inspection of the chest Resp Auscultation: clear to auscultation bilaterally, no crackles and no wheezes Cardio Jugular venous distension: no JVD Palpation: normal PMI Heart sounds: S1 normal heart sound present, S2 normal heart sound present, no gallops, Murmur heart sound present systolic III/ and at the right sternal border and no rubs GI Palpation (GI): Soft to palpation Back/Spine/Pelvis Other: unremarkable Skin General skin exam: no rashes or lesions noted Neuro Cranial nerves: Yes Other cranial nerve findings present Extrem General: Yes no clubbing, cyanosis or edema Psych Mental Status: other Results Labs and Meds Result diagrams: 01/15/21 05:53 01/15/21 05:53 Progress Note: A&P Assessment and plan (1) Acute blood loss anemia: Status: Acute (2) S/P TAVR (transcatheter aortic valve replacement): Status: Acute (3) Acute on chronic diastolic (congestive) heart failure: Status: Acute (4) Cardiac resynchronization therapy defibrillator ([employer]-D) in place: Status: Acute (5) Pulmonary embolism: Status: Acute Assessment and Plan: Labs reviewed. Hemoglobin is 6.6 on arrival but improved to 8,4 after blood transfusions. Negative high sensitivity troponins. Cardiac BNP is 110. ICD interrogation was performed and this actually shows that he has been having fluid retention for the last month or so. Last echocardiogram from a month ago with LVEF 55-60% and normally functioning bioprosthetic aortic valve. He will need Aspirin due to the bioprosthetic valve. Eliquis being held. Continue oral diuretics. Upon d/c, FU in office. Fall Risk Details Current Medications: Current Medications Generic Name Dose Route Start Last Admin Trade Name Freq PRN Reason Stop Dose Admin Acetaminophen 650 mg 01/13/21 12:51 Acetaminophen 325 Mg Tablet PO Q6H PRN Pain, Mild (Pain Scale 1-3) Aspirin 81 mg 01/15/21 09:00 01/16/21 09:02 Aspirin Enteric Coated 81 Mg Tablet. PO 81 mg DAILY JERRELL Administration Furosemide 40 mg 01/15/21 18:00 01/16/21 09:02 Furosemide 40 Mg Tablet PO 40 mg BID@0900,1800 JERRELL Administration Protocol Levothyroxine Sodium 175 mcg 01/16/21 06:00 01/16/21 05:46 Levothyroxine Sodium 175 Mcg Tablet PO 175 mcg DAILY@0600 JERRELL Administration Melatonin 6 mg 01/15/21 22:54 Melatonin 3 Mg Tablet PO BEDTIME PRN Insomnia Ondansetron HCl 4 mg 01/13/21 12:51 01/14/21 19:12 Ondansetron Hcl 4 Mg/2 Ml Vial IVPUSH 4 mg Q8H PRN Administration Nausea and Vomiting Pharmacy Consult 1 each 01/13/21 12:16 Consult Rx Perform Med Rec MISCELLANE ONCE PRN Consult order Sodium Chloride 3 ml 01/13/21 16:00 01/16/21 09:02 0.9 % Sodium Chloride Flush 3 Ml Syringe IVFLUSH 3 ml QSHIFT JERRELL Administration Time Spent With Patient Time: Total time spent is greater than 50% in coordination of care (as documented) at patient's floor/unit and/or counseling patient: Time with patient: less than 15 minutes Progress Note: Quality Stroke Does the patient have a stroke diagnosis?: No Procedures Date of Service Date of Service: 01/16/21
[2021-01-16 12:00] VITALS: BP 109/61; PULSE 90; RESP 20; TEMP 37.1; O2SAT 100
== END 2021-01-16 12:45 | disposition home or self-care (01) | DRG 253 ==
LOC: HO.ED 08:10 → HO.EDOVER 12:57 → HO.IMC 13:42
PROVIDERS: Hospitalist; Internal Medicine Gastroenterology; Physician Assistant; Admitting Provider Nurse Practitioner Acute Care; Emergency Provider Emergency Medicine; PCP Internal Medicine; Visit Provider Hospitalist
PROC: 0DJ08ZZ Inspection of Upper Intestinal Tract, Via Natural or Artificial Opening Endoscopic (ICD-10-PCS; CPT 43235; principal; 2021-01-14 12:10)
PROC: 0DJD8ZZ Inspection of Lower Intestinal Tract, Via Natural or Artificial Opening Endoscopic (ICD-10-PCS; CPT 45378; principal; 2021-01-15 09:50)
DX: K92.2 Gastrointestinal hemorrhage, unspecified (principal); I50.33 Acute on chronic diastolic (congestive) heart failure; Q85.8 Other phakomatoses, not elsewhere classified; I42.8 Other cardiomyopathies; K31.7 Polyp of stomach and duodenum; D62 Acute posthemorrhagic anemia; E03.9 Hypothyroidism, unspecified; Z20.822 Contact with and (suspected) exposure to COVID-19; Z95.2 Presence of prosthetic heart valve; K63.5 Polyp of colon; Z86.711 Personal history of pulmonary embolism; Z95.810 Presence of automatic (implantable) cardiac defibrillator; Z79.01 Long term (current) use of anticoagulants; Z79.51 Long term (current) use of inhaled steroids; Z79.82 Long term (current) use of aspirin; Z79.890 Hormone replacement therapy; Z79.899 Other long term (current) drug therapy
CPT/HCPCS: 0241U; 36415; 70450; 71045; 71275; 80048; 80053; 80076; 81003; 82272; 83690; 83735; 83880; 84484; 85014; 85018; 85025; 85610; 85730; 86850; 86900; 86901; 86923; 88305; 88342; 93005; 93970; 99285; J1940; J2060; J2405; J3010; J3430; P9016; Q9967

== ENCOUNTER 2021-01-25 06:13 | Inpatient (IN) | payer OTHER, SELFPAY ==
[2021-01-25] VITALS (19 sets, daily range): BP systolic 91–108; BP diastolic 55–65; PULSE 95–107; RESP 16–20; TEMP 36.6–36.8; O2SAT 94–100; BMI 23.4
--- NOTE | ~2021-01-25 | CT_ITS ---
EXAMINATION: CT HIP WITHOUT CONTRAST, LEFT CLINICAL INFORMATION: Suspect left femoral subcapital fracture COMPARISON: X-ray from earlier the same day TECHNIQUE: Axial images through the left hip without contrast. Sagittal and coronal reconstructions on the technologist workstation were performed. This CT examination was performed using dose optimization techniques as appropriate, variously including the following: *Automated exposure control *Adjustment of mA and/or kV according to patient size (this includes techniques or standardized protocols for targeted exams where dose is matched to indication/reason for exam; i.e. extremities or head) *Use of iterative reconstruction technique DLP: 167 mGy-cm FINDINGS: There is an impacted nondisplaced subcapital left femoral neck fracture. This appears comminuted and there may be more superior involvement in the posterior femoral head. Femoral acetabular alignment is normal. There is mild degenerative change of the left hip joint with joint space narrowing and small osteophytes. There are mild degenerative changes at the pubic symphysis. Soft tissues appear unremarkable. CT/CT hip LT wo con IMPRESSION: Impacted subcapital left femoral neck fracture.
--- NOTE | ~2021-01-25 | XR_ITS ---
EXAMINATION: XR HIP, LEFT CLINICAL INFORMATION: Fall. Unable to bear weight. COMPARISON: None TECHNIQUE: Two views of the left hip. FINDINGS: Subcapital fracture of the left femoral neck, with mild impaction superiorly. Bilateral femoral acetabular marginal osteophytes are present. Labral calcifications present bilaterally. XR/XR hip LT w [id number] IMPRESSION: Suspected left femoral subcapital fracture with superior impaction. Recommend CT of the left hip to confirm/delineate extent of the fracture.
--- NOTE | ~2021-01-25 | XR_ITS ---
EXAMINATION: XR CHEST CLINICAL INFORMATION: Fever COMPARISON: 01/13/2021 TECHNIQUE: Frontal view of the chest was obtained. FINDINGS: Redemonstrated left-sided pacemaker/AICD and TAVR prosthesis. Redemonstrated small to moderate right pleural effusion with some underlying basilar opacity favoring atelectasis; this appears overall similar to slightly increased since 01/13/2021. Left lung appears clear. No evidence of pneumothorax. The cardiomediastinal contour is unremarkable. No acute osseous findings are seen. XR/XR chest 1V IMPRESSION: Small to moderate right pleural effusion with adjacent basilar atelectasis, similar to slightly increased from 01/13/2021.
--- NOTE | ~2021-01-25 | FL_ITS ---
EXAMINATION: XR FLUOROSCOPY WITH IMAGES CLINICAL INFORMATION: Left hip fracture COMPARISON: Previous x-ray CT 01/25/2021 TECHNIQUE: Fluoroscopy performed by Dr. Irvin Mena. Fluoroscopy time: 1.1 minutes DAP: 0.53% 1 mGycm2 Images: 2 FINDINGS: Images demonstrate 3 screws transfixing the left femoral neck fracture with anatomic alignment. FL/FL guidance in OR IMPRESSION: Fluoroscopy guidance for ORIF of left femoral neck fracture.
--- NOTE | 2021-01-25 06:36 | ED.GENADULT ---
HPI - General Adult General Chief complaint: Fall Stated complaint: Fall Time Seen by Provider: 01/25/21 06:21 Source: patient Mode of arrival: wheelchair Limitations: no limitations History of Present Illness HPI narrative: Patient comes to the emergency room complaining of left-sided hip pain. Mr. Monahan works here at [facility] [employer]. He was getting out of his car, took a wrong step, slipped, fell on his left side. Patient states that he was unable to get up due to the pain on the left hip. Patient called security, they found him on the floor, helped him up into a wheelchair and brought him to the emergency room. Patient states that he did not hit his head, did not lose consciousness. He is no longer on Eliquis, only takes baby aspirin. Patient has small abrasions to the dorsum of the left hand as well. Related Data Home Medications Medication Instructions Recorded Confirmed furosemide 40 mg tablet 40 mg PO BID tab 12/21/20 01/25/21 Previous Rx's Medication Instructions Recorded aspirin 81 mg tablet,delayed 81 mg PO DAILY #90 tab 07/09/20 release eplerenone 25 mg tablet 25 mg PO DAILY #90 tab 07/09/20 omeprazole 20 mg PO DAILY #30 cap 01/16/21 levothyroxine 175 mcg tablet 175 mcg PO DAILY 90 Days #90 tab 01/21/21 Allergies Allergy/AdvReac Type Severity Reaction Status Date / Time No Known Allergies Allergy Verified 12/21/20 14:29 [No Known Allergies*] Review of Systems Review of Systems: Constitutional : No Weight loss, No Fever, No Chills, No Night Sweats, No Fatigue, No Malaise ENT/Mouth : No Hearing loss, No Ear Pain, No Nasal Congestion, No Sinus Pain, No Hoarseness, No sore throat, No Rhinorrhea, No Swallowing Difficulty Eyes: No Eye Pain, No Swelling, No Redness, No Foreign Body, No Discharge, No Vision Changes Cardiovascular : No Chest Pain, No SOB, No Dyspnea on Exertion, No Orthopnea, No Edema, No Palpitations Respiratory : No Cough, No Sputum, No Wheezing, No Smoke Exposure, No Dyspnea Gastrointestinal : No Nausea, No Vomiting, No Diarrhea, No Constipation, No abdominal Pain, No Hematochezia, No Melena Genitourinary : no irregular bleeding, No Dysuria, No Urinary Frequency, No Hematuria, No Urinary Incontinence, No Urgency, No Flank Pain, No Urinary Flow Changes, No Hesitancy Musculoskeletal : complaining of L hip pain s/p fall, No Myalgias, No Joint Swelling Skin : Skin tears in the dorsum of the left hand Neuro : No Weakness, No Numbness, No Paresthesias, No Loss of Consciousness, No Dizziness, No Headache Psych : No Anxiety/Panic, No Depression, No SI/HI/AH/VH, No Social Issues, Heme/Lymph: No Bruising, No Bleeding,No Lymphadenopathy Endocrine : No Polyuria, No Polydipsia, No Temperature Intolerance ON LICENSE OF [facility] Past Medical History Medical History Aortic stenosis, severe Cardiac resynchronization therapy defibrillator (METAL MOVER-D) in place Complete heart block HFrEF (heart failure with reduced ejection fraction) Hodgkins lymphoma Hypocalcemia Hypotension (arterial) Hypothyroid LBBB (left bundle branch block) NICM (nonischemic cardiomyopathy) Non-rheumatic aortic stenosis Pacemaker Pulmonary embolism Recurrent pleural effusion on right Shortness of breath Surgical History H/O splenectomy History of appendectomy History of cardiac pacemaker S/P TAVR (transcatheter aortic valve replacement) (~10/29/20) Family History Family History Father No problems noted. Mother No problems noted. Social History Social History Household Members: Family Housing: House Do you presently have visiting nurse or other home services: No Alcohol intake: never Patient Tobacco Use Status: Never used Tobacco Use of substances other than those prescribed or required for medical reasons: No Advance Directives: Yes Advance Directives Information Provided: Yes Advance Directives on File: No service: Yes Current occupational status: employed Physical Exam Vital Signs: Vital Signs: Last Vital Signs Temp 98.3 F 01/25/21 07:09 Pulse 98 01/25/21 12:30 Resp 18 01/25/21 12:32 BP 102/63 01/25/21 12:30 Pulse Ox 94 01/25/21 12:30 Body Mass Index 23.4 Appearance: Alert. Oriented X3. No acute distress. Eyes: Pupils equal, round and reactive to light. ENT: Pharynx normal. Neck: Normal inspection. Neck supple. No lymph nodes noted. No crepitus CVS: Normal heart rate and rhythm. Pulses normal. Normal S1 and S2 Respiratory: No respiratory distress. Breath sounds normal. No Wheezing. No rales Abdomen: Soft and nontender. No rigidity. No distention Skin: Skin warm and dry. Small skin tears on the dorsum of the left hand over the metacarpals, bleeding controlled Extremities: Complaining of left-sided hip pain, able to flex and extend the left hip but with pain. Unable to bear weight, no hematoma in the hip Neuro: Oriented X 3. No motor deficit. No sensory deficit. Moving all extermities. No slurred speech. Course Course Course Narrative: I discussed with the patient that he may have subcapital fracture with impaction. CT scan is needed. Patient agrees. Patient has a baseline low blood pressure, per patient 105 is his baseline. Sepsis is not suspected. White blood cell count elevation likely secondary to reactive leukocytosis. Hemoglobin at baseline. I discussed the CT findings with the patient, he does have a fracture. I also discussed the CT findings with IRIS Anderson, the patient will be admitted to the hospitalist, the surgery will not be happening today, patient is to be medically cleared, surgery will be likely tomorrow I discussed the patient with Dr. Erickson, he states that the hospitalist team will be the consulting team but will not be admitting the patient. Discussed the patient with IRIS Anderson, patient will be admitted under Dr. Mena Medical Decision Making Lab Data Result diagrams: 01/25/21 08:30 01/25/21 08:30 Labs: Lab Results 01/25/21 01/25/21 Range/Units 08:30 08:30 WBC 14.4 H (4.8-10.8) X10*3/uL RBC 4.11 L (4.60-5.80) X10*6/uL Hgb 9.0 L (14.0-18.0) g/dl Hct 30.2 L (42-52) % MCV 73.5 L (80-98) fL MCH 21.9 L (27.0-33.0) pg MCHC 29.8 L (31.0-36.0) g/dl RDW 26.5 H (11.0-16.0) % Plt Count 493 H D (160-400) X10*3/uL MPV 9.6 (9.4-12.4) fL Immature Gran % (Auto) 0.8 H (0.0-0.4) % Neut % (Auto) 86.3 H (45-73) % Lymph % (Auto) 4.2 L (20-40) % [place] % (Auto) 8.2 (2-11) % Eos % (Auto) 0.2 (0-4) % Baso % (Auto) 0.3 (0-2) % Lymph # (Auto) 0.6 L (1.2-4.9) X10*3/uL [place] # (Auto) 1.2 (0.1-1.2) X10*3/uL Eos # (Auto) 0.0 (0.0-0.4) X10*3/uL Baso # (Auto) 0.1 (0.0-0.2) X10*3/uL Abs Immat Gran (auto) 0.12 H (0.00-0.03) X10*3/uL Absolute Neuts (auto) 12.4 H (2.0-8.3) X10*3/uL Absolute Nucleated RBC 0.000 (0.0-0.012) X10*3/uL Nucleated RBC % (auto) 0.0 (0.0-0.2) /100WBC Sodium 139 (135-145) mmol/L Potassium 4.1 (3.3-5.1) mmol/L Chloride 100 (96-108) mmol/L Carbon Dioxide 31 H (22-29) mmol/L Anion Gap 12 (12-20) BUN 14 (9-16) mg/dL Creatinine 0.77 (0.5-1.4) mg/dL Estim Creat Clear Calc 111.3 Estimated GFR > 60 Random Glucose 91 (60-115) mg/dL Calcium 8.8 D (8.4-10.2) mg/dL Total Bilirubin 0.6 (0.0-1.0) mg/dL Direct Bilirubin 0.3 (0.0-0.5) mg/dL AST 23 (5-37) U/L ALT 13 (0-40) U/L Alkaline Phosphatase 62 (39-117) U/L Total Protein 6.9 (6.5-8.0) g/dL Albumin 3.6 (3.5-5.0) g/dL Imaging Data Hip CT: Radiologist's impression: FINDINGS: There is an impacted nondisplaced subcapital left femoral neck fracture. This appears comminuted and there may be more superior involvement in the posterior femoral head. Femoral acetabular alignment is normal. There is mild degenerative change of the left hip joint with joint space narrowing and small osteophytes. There are mild degenerative changes at the pubic symphysis. Soft tissues appear unremarkable. CT/CT hip LT wo con IMPRESSION: Impacted subcapital left femoral neck fracture. Discharge Plan Discharge Clinical Impression: Closed femur fracture Qualifiers: Encounter type: initial encounter Patient Disposition: Admitted As Inpatient
[2021-01-25 08:36] LABS: MANUAL DIFF FLAG NO
[2021-01-25 08:38] LABS: Basophils Absolute Auto 0.1 X10*3/uL (0.0-0.2); Basophils Percent Auto 0.3 % (0-2); Eosinophils Percent Auto 0.2 % (0-4); Hematocrit 30.2 % (42-52); Imm Gran Abs Auto 0.12 X10*3/uL (0.00-0.03); Imm Gran Pct Auto 0.8 % (0.0-0.4); Lymphocytes Absolute Auto 0.6 X10*3/uL (1.2-4.9); Lymphocytes Percent Auto 4.2 % (20-40); Mean Corpuscular HGB Conc 29.8 g/dl (31.0-36.0); Mean Corpuscular Hemoglobin 21.9 pg (27.0-33.0); Mean Corpuscular Volume 73.5 fL (80-98); Mean Platelet Volume 9.6 fL (9.4-12.4); Monocytes Absolute Auto 1.2 X10*3/uL (0.1-1.2); Monocytes Percent Auto 8.2 % (2-11); Neutrophils Absolute Auto 12.4 X10*3/uL (2.0-8.3); Neutrophils Percent Auto 86.3 % (45-73); Platelet Count 493 X10*3/uL (160-400); Red Blood Count 4.11 X10*6/uL (4.60-5.80); Red Cell Distribution Width 26.5 % (11.0-16.0); White Blood Count 14.4 X10*3/uL (4.8-10.8)
[2021-01-25] MEDS: fentaNYL citrate/PF 100 MCG/2 ML VIAL 50 MCG IVPUSH (08:43)
[2021-01-25] MEDS: 0.9 % Sodium Chloride 500 ML 999 ML IVCONT (08:46)
[2021-01-25 09:16] LABS: Alanine Aminotransferase 13 U/L (0-40); Albumin Level 3.6 g/dL (3.5-5.0); Alkaline Phosphatase 62 U/L (39-117); Anion Gap 12 (12-20); Aspartate Amino Transferase 23 U/L (5-37); Bilirubin Direct 0.3 mg/dL (0.0-0.5); Bilirubin Total 0.6 mg/dL (0.0-1.0); Blood Urea Nitrogen 14 mg/dL (9-16); Calcium 8.8 mg/dL (8.4-10.2); Carbon Dioxide 31 mmol/L (22-29); Chloride 100 mmol/L (96-108); Creatinine Clr Calc Pharmacy 111.3; Estimated Glomerular Filt Rate > 60; Glucose Random 91 mg/dL (60-115); Potassium 4.1 mmol/L (3.3-5.1); Sodium 139 mmol/L (135-145); Total Protein 6.9 g/dL (6.5-8.0)
[2021-01-25] MEDS: HYDROmorphone HCl 0.5 MG/0.5 ML SYRINGE IVPUSH (10:01)
--- NOTE | 2021-01-25 11:10 | PHA.MEDREC ---
Pharmacy Consult ? Medication Reconciliation Pharmacy has completed the medication reconciliation. No remarkable issues for provider attention. Shelby Ramirez, ColeD
[2021-01-25] MEDS: HYDROmorphone HCl 1 MG/ML SYRINGE IVPUSH (12:32)
--- NOTE | 2021-01-25 13:55 | PC.NURSE ---
Patient is resting quietly in bed. Pt states left hip pain is better and rates it a 4/10
--- NOTE | 2021-01-25 14:42 | P.HPOP_ITS ---
History of Present Illness History of Present Illness Date of Service: 01/25/21 Chief complaint: left distal femur fracture Narrative: Enrique Monahan is a 60 year old male who presented to the emergency department after sustaining a fall while getting out of his car. He was in the parking lot of [facility] when he turned and took a step and fell. He landed on the left side. He was unable to get up due to pain. He called security who assisted him to the emergency department where he was evaluated. X-rays of the left hip demonstrated impacted subcapital fracture of the femur. Orthopedics was consulted and the plan was to admit him to the orthopedic service and plan for surgical intervention. The patient states that he has a past medical history significant for Hodgkin lymphoma. It has been 25 years since his last radiation treatment. He states in October he did have a valve replacement and just completed his treatment with Eliquis few weeks ago. He does live at home with his . He does not use any type of assistive device for ambulation. Review of Systems Review of Systems: Yes all other systems are reviewed and are negative PMFSH Past Medical History Medical History Aortic stenosis, severe Cardiac resynchronization therapy defibrillator (ELECTRIC CLOCK MECHANIC-D) in place Complete heart block HFrEF (heart failure with reduced ejection fraction) Hodgkins lymphoma Hypocalcemia Hypotension (arterial) Hypothyroid LBBB (left bundle branch block) NICM (nonischemic cardiomyopathy) Non-rheumatic aortic stenosis Pacemaker Pulmonary embolism Recurrent pleural effusion on right Shortness of breath Family History Family History Father No problems noted. Mother No problems noted. Surgical History Surgical History H/O splenectomy History of appendectomy History of cardiac pacemaker S/P TAVR (transcatheter aortic valve replacement) (~10/29/20) Social History Social History Household Members: Family Housing: House Do you presently have visiting nurse or other home services: No Alcohol intake: never Patient Tobacco Use Status: Never used Tobacco Use of substances other than those prescribed or required for medical reasons: No Advance Directives: Yes Advance Directives Information Provided: Yes Advance Directives on File: No service: Yes Current occupational status: employed Meds Allergies Allergy/AdvReac Type Severity Reaction Status Date / Time No Known Allergies Allergy Verified 12/21/20 14:29 [No Known Allergies*] Active Medications: Current Medications Generic Name Dose Route Start Last Admin Trade Name Leonor PRN Reason Stop Dose Admin Pharmacy Consult 1 each 01/25/21 10:27 Consult Rx Perform Med Rec MISCELLANE ONCE PRN Consult order Home Medications Medication Instructions Recorded Confirmed Last Taken Type furosemide 40 mg tablet 40 mg PO BID tab 12/21/20 01/25/21 01/14/21 06:00 History Physical Exam Vital Signs: Vital Signs: Last Vital Signs Temp 98.3 F 01/25/21 07:09 Pulse 101 H 01/25/21 14:16 Resp 18 01/25/21 14:16 BP 102/60 01/25/21 14:16 Pulse Ox 99 01/25/21 14:16 Body Mass Index 23.4 Const: General: cooperative, healthy appearing, comfortable, no acute distress, well developed and alert Orientation/consciousness: patient oriented x3 HENMT: Head: Yes normal to inspection, Yes normocephalic and Yes atraumatic Eyes: General: appearance normal, both eyes and all related structures Neck: Neck: Yes normal visual inspection and Yes no lymphadenopathy Resp: Effort & Inspection: normal respiratory effort and able to speak in complete sentences Cardio: Rate: regular rate Peripheral pulses: Peripheral pulses 2+ throughout GI: Inspection: Yes normal to inspection Palpation (GI): Soft to palpation Skin: General skin exam: no rashes or lesions noted Neuro: General: patient oriented x3 Extrem: Other: Left hip skin intact there is tenderness over the lateral asp ect of the hip and pain with log roll. He is unable to straight leg raise. He does have intact pulses and sensation. X-rays of the left hip shows an impacted subcapital fracture of the femur. Psych: Appearance: grossly normal Mental Status: mental status grossly normal Results Labs Result Diagrams: 01/25/21 08:30 01/25/21 08:30 Labs: Abnormal lab results 01/25/21 01/25/21 Range/Units 08:30 08:30 WBC 14.4 H (4.8-10.8) X10*3/uL RBC 4.11 L (4.60-5.80) X10*6/uL Hgb 9.0 L (14.0-18.0) g/dl Hct 30.2 L (42-52) % MCV 73.5 L (80-98) fL MCH 21.9 L (27.0-33.0) pg MCHC 29.8 L (31.0-36.0) g/dl RDW 26.5 H (11.0-16.0) % Plt Count 493 H D (160-400) X10*3/uL Immature Gran % (Auto) 0.8 H (0.0-0.4) % Neut % (Auto) 86.3 H (45-73) % Lymph % (Auto) 4.2 L (20-40) % Lymph # (Auto) 0.6 L (1.2-4.9) X10*3/uL Abs Immat Gran (auto) 0.12 H (0.00-0.03) X10*3/uL Absolute Neuts (auto) 12.4 H (2.0-8.3) X10*3/uL Carbon Dioxide 31 H (22-29) mmol/L H & H 01/25/21 Range/Units 08:30 Hgb 9.0 L (14.0-18.0) g/dl Hct 30.2 L (42-52) % All other labs normal. Assessment and Plan (1) Closed femur fracture: Qualifiers: Encounter type: initial encounter Status: Acute I discussed the case with Dr. Mena and explained the extent of the injury to the patient and options available which include surgical intervention. I explained the procedure in detail along with the length of recovery and rehab course. I explained the risk, benefits and alternatives. Risk including, but not limited to infection, blood clots, bleeding, non union or malunion and nerve/tissue damage to surrounding areas. I answered all their questions and with their understanding they have consented to move forward with Operative Fixation of the left hip . The patient with be T&S, med clearance obtained and NPO after midnight. Quality Stroke Does the patient have a stroke diagnosis?: No VTE Prior VTE?: No VTE Risk Level:: Surgical - high VTE Device Contraindication: N/A - Device Ordered VTE Drug Contraindication: Treatment Not Indicated Procedures Date of Service Date of Service: 01/25/21
[2021-01-25] MEDS: 0.9 % Sodium Chloride Flush 3 ML SYRINGE IVFLUSH (16:30)
--- NOTE | 2021-01-25 16:46 | P.CONIM_ITS ---
History of Present Illness Data of Consult Service Date: 01/25/21 Primary Care Provider: Yesica Kay MD HPI Reason for consult: Fall, hip fracture A 60 years old male with PMH which can inform CHF, aortic stenosis post AVR, chronic anemia among others who presented to the hospital after sustaining a mechanical fall and found to hip fracture. Hospitalist team were asked to evaluate the patient for preop clearance and to monitor medical problems during the hospital stay. Review of Systems Review of Systems: No fever, chills but reports feeling weak having pain with any movement No chest pain, palpitation No shortness of breath or coughing No abdominal pain, nausea or vomiting No urinary symptoms No any rash or wounds Hip pain with any movement PMFSH Medical History Aortic stenosis, severe Cardiac resynchronization therapy defibrillator (SAP SOLUTION MANAGER CONSULTANT-D) in place Complete heart block HFrEF (heart failure with reduced ejection fraction) Hodgkins lymphoma Hypocalcemia Hypotension (arterial) Hypothyroid LBBB (left bundle branch block) NICM (nonischemic cardiomyopathy) Non-rheumatic aortic stenosis Pacemaker Pulmonary embolism Recurrent pleural effusion on right Shortness of breath Family History Father No problems noted. Mother No problems noted. Surgical History H/O splenectomy History of appendectomy History of cardiac pacemaker S/P TAVR (transcatheter aortic valve replacement) (~10/29/20) Social History Household Members: Family Housing: House Do you presently have visiting nurse or other home services: No Alcohol intake: never Patient Tobacco Use Status: Never used Tobacco Use of substances other than those prescribed or required for medical reasons: No Advance Directives: Yes Advance Directives Information Provided: Yes Advance Directives on File: No service: Yes Current occupational status: employed Meds Allergies Allergy/AdvReac Type Severity Reaction Status Date / Time No Known Allergies Allergy Verified 12/21/20 14:29 [No Known Allergies*] Active Medications: Current Medications Generic Name Dose Route Start Last Admin Trade Name Freq PRN Reason Stop Dose Admin Acetaminophen 650 mg 01/25/21 14:51 Acetaminophen Supp 650 Mg Supp.Rect NE Q6H PRN Pain, Mild (Pain Scale 1-3) Docusate Sodium 100 mg 01/25/21 21:00 Docusate Sodium 100 Mg Capsule PO BID [facility] Hydromorphone HCl 0.25 mg 01/25/21 14:51 Hydromorphone Hcl 0.5 Mg/0.5 Ml Syringe IVPUSH Q4H PRN Pain, Severe (Pain Scale 7-10) Dextrose/Sodium Chloride 1,000 mls @ 80 mls/hr 01/25/21 14:51 D51/2ns IVCONT .[id number] [facility] Levothyroxine Sodium 175 mcg 01/26/21 06:00 Levothyroxine Sodium 175 Mcg Tablet PO DAILY@0600 [facility] Naloxone HCl 0.2 mg 01/25/21 14:51 Naloxone Hcl 0.4 Mg/Ml Vial IVPUSH Q2M PRN Excessive sedation or RR < 8 Ondansetron HCl 4 mg 01/25/21 14:51 Ondansetron Hcl 4 Mg/2 Ml Vial IVPUSH Q8H PRN Nausea and Vomiting Oxycodone HCl 5 mg 01/25/21 14:51 Oxycodone Hcl Immed Release 5 Mg Tablet PO Q4H PRN Pain, Moderate (Pain Scale 4-6 Oxycodone HCl 10 mg 01/25/21 14:51 Oxycodone Hcl Er 10 Mg Tab.Er.12h PO BID PRN Pain, Severe (Pain Scale 7-10) Pharmacy Consult 1 each 01/25/21 10:27 Consult Rx Perform Med Rec MISCELLANE ONCE PRN Consult order Sodium Chloride 3 ml 01/25/21 16:00 0.9 % Sodium Chloride Flush 3 Ml Syringe IVFLUSH QSHIFT [facility] Home Medications Medication Instructions Recorded Confirmed Last Taken Type furosemide 40 mg tablet 40 mg PO BID tab 12/21/20 01/25/21 01/14/21 06:00 History Physical Exam Vital Signs and Narrative: Vital Signs: Last Vital Signs Temp 98.3 F 01/25/21 07:09 Pulse 101 H 01/25/21 16:36 Resp 18 01/25/21 16:36 BP 98/58 L 01/25/21 16:36 Pulse Ox 98 01/25/21 16:36 Body Mass Index 23.4 Const: Other: Constitutional : Alert, oriented, in pain Neck : Normal inspection, Supple Cardiovascular : RRR, S1 S2, no lower extremity edema, pacemaker in place Respiratory : For bilateral air entry, no crackles, wheezes or rhonchi Gastrointestinal: soft, lax, Normal bowel sounds, Non tender Skin : Warm/Dry, No rash Neurological : Alert & oriented x3, No focal deficit Results Labs CBC and Chem 7: 01/25/21 08:30 01/25/21 08:30 Labs: Laboratory Results - last 24 hr 01/25/21 01/25/21 01/25/21 08:30 08:30 15:49 MCV 73.5 L MCH 21.9 L MCHC 29.8 L RDW 26.5 H Plt Count 493 H D MPV 9.6 Immature Gran % (Auto) 0.8 H Neut % (Auto) 86.3 H Lymph % (Auto) 4.2 L [place] % (Auto) 8.2 Eos % (Auto) 0.2 Baso % (Auto) 0.3 Lymph # (Auto) 0.6 L [place] # (Auto) 1.2 Eos # (Auto) 0.0 Baso # (Auto) 0.1 Abs Immat Gran (auto) 0.12 H Absolute Neuts (auto) 12.4 H Absolute Nucleated RBC 0.000 Nucleated RBC % (auto) 0.0 Anion Gap 12 Estim Creat Clear Calc 111.3 Estimated GFR > 60 Random Glucose 91 Calcium 8.8 D Total Bilirubin 0.6 Direct Bilirubin 0.3 AST 23 ALT 13 Alkaline Phosphatase 62 Total Protein 6.9 Albumin 3.6 Blood Type A Positive Antibody Screen NEGATIVE Imaging Radiologist's Impressions: Impressions Hip/Pelvis X-Ray 01/25/21 06:33 IMPRESSION: Suspected left femoral subcapital fracture with superior impaction. Recommend CT of the left hip to confirm/delineate extent of the fracture. Hip CT 01/25/21 08:17 IMPRESSION: Impacted subcapital left femoral neck fracture. Assessment and Plan (1) Closed femur fracture: Qualifiers: Encounter type: initial encounter Status: Acute (2) Leukocytosis: Status: Acute A 60 years old male with PMH which can inform CHF, aortic stenosis post AVR, chronic anemia among others who presented to the hospital after sustaining a mechanical fall and found to hip fracture. Preop evaluation None emergency surgery, no ACS RCRI score of 1 Recent echo last December showing within normal EF Patient carries low to moderate perioperative cardiac risk, can proceed to surgery with no further testing needed Leukocytosis Likely reactive with no reported fevers and no clear source of infection continue to monitor Anemia of chronic disease Recent GI bleed Eliquis discontinued recently for an episode of GI bleed requiring blood transfusion Can tolerate baby aspirin Avoid blood thinners for now and at time of discharge Chronic HFpEF Watch for fluid overload with IVF Cardiology team consulted Thank you for the consult, will continue to monitor the patient with you.
[2021-01-25] MEDS: Dextrose 5 % and 0.45 % NaCl 1,000 ML 80 ML IVCONT (16:50)
[2021-01-25] MEDS: oxyCODONE HCl Immed Release 5 MG TABLET PO (16:51)
[2021-01-25] MEDS: HYDROmorphone HCl 0.5 MG/0.5 ML SYRINGE 0.25 MG IVPUSH ×2 (18:24→23:00)
[2021-01-26] VITALS (15 sets, daily range): BP systolic 92–103; BP diastolic 51–66; PULSE 70–114; RESP 16–22; TEMP 36.1–38.7; O2SAT 90–100
[2021-01-26] MEDS: HYDROmorphone HCl 0.5 MG/0.5 ML SYRINGE IVPUSH (02:30)
[2021-01-26] MEDS: Dextrose 5 % and 0.45 % NaCl 1,000 ML 80 ML IVCONT ×2 (03:55→15:57)
[2021-01-26] MEDS: HYDROmorphone HCl 0.5 MG/0.5 ML SYRINGE 0.25 MG IVPUSH ×2 (04:48→08:45)
--- NOTE | 2021-01-26 04:58 | PM.EVENT ---
Event Note Date of Service: 01/26/21 Event Note: Fever: sent UA, CXR, Blood cx, Rapid Covid; Empiric Ceftriaxone
[2021-01-26 06:01] LABS: MANUAL DIFF FLAG NO
[2021-01-26 06:03] LABS: Basophils Absolute Auto 0.1 X10*3/uL (0.0-0.2); Basophils Percent Auto 0.9 % (0-2); Eosinophils Absolute Auto 0.2 X10*3/uL (0.0-0.4); Eosinophils Percent Auto 1.8 % (0-4); Hemoglobin 8.7 g/dl (14.0-18.0); Imm Gran Abs Auto 0.05 X10*3/uL (0.00-0.03); Imm Gran Pct Auto 0.5 % (0.0-0.4); Lymphocytes Absolute Auto 0.6 X10*3/uL (1.2-4.9); Lymphocytes Percent Auto 5.7 % (20-40); Mean Corpuscular Hemoglobin 21.9 pg (27.0-33.0); Mean Platelet Volume 9.7 fL (9.4-12.4); Monocytes Percent Auto 9.2 % (2-11); Neutrophils Absolute Auto 8.7 X10*3/uL (2.0-8.3); Neutrophils Percent Auto 81.9 % (45-73); Platelet Count 444 X10*3/uL (160-400); Red Blood Count 3.97 X10*6/uL (4.60-5.80); White Blood Count 10.6 X10*3/uL (4.8-10.8)
[2021-01-26] MEDS: cefTRIAXone sodium 1 GM in 0.9 % Sodium Chloride 50 ML IV (06:03)
[2021-01-26 06:30] LABS: Lactic Acid 0.8 mmol/L (0.5-2.0)
[2021-01-26 06:40] LABS: Glucose Urine UA NEG (NEG); Leukocyte Esterase Urine NEG (NEG); Nitrite Urine NEG (NEG); Urine Blood 2+ (NEG); Urine Ketones NEG (NEG); Urine Protein 1+ MG/DL (NEG-TRACE)
[2021-01-26 06:42] LABS: Anion Gap 12 (12-20); Blood Urea Nitrogen 10 mg/dL (9-16); Calcium 8.5 mg/dL (8.4-10.2); Carbon Dioxide 27 mmol/L (22-29); Chloride 102 mmol/L (96-108); Creatinine Clr Calc Pharmacy 115.8; Estimated Glomerular Filt Rate > 60; Glucose Random 111 mg/dL (60-115); Potassium 4.1 mmol/L (3.3-5.1); Sodium 137 mmol/L (135-145)
[2021-01-26 06:49] LABS: Appearance Urine HAZY; Color Urine YELLOW
[2021-01-26 06:56] LABS: Mucus Urine 1+ /LPF; WBC Urine 0-2 /HPF (0-4)
[2021-01-26 06:58] LABS: COVID-19 Test Negative (Negative)
[2021-01-26] MEDS: 0.9 % Sodium Chloride Flush 3 ML SYRINGE IVFLUSH (08:45)
--- NOTE | 2021-01-26 09:03 | MHC.CM.PN ---
CM met with Patient at bedside. Patient lives in a house with his /HCP and 2 teen Children and he was functionally independent and working [employer]IVE [employer]UC[employer]. Patient feels that he will need STR and is agreeable to area SNF referrals being made. CM has initiated and will follow for dc planning. PCP is Dr. Yesica Avila.
--- NOTE | 2021-01-26 10:20 | P.CONCA_ITS ---
History of Present Illness History of Present Illness Date of Service: 01/26/21 Requesting physician: Jarret Chacon Consult reason: pre-op evaluation Chief complaint: left distal femur fracture Narrative: I was requested to see Enrique in cardiology consultation today for preoperative cardiovascular risk stratification prior to urgent hip surgery. Enrique with prior history of nonischemic cardiomyopathy status post biventricular [employer] ICD, most recent echocardiogram has shown normal LV ejection fraction, status post transcatheter aortic valve replacement for severe aortic stenosis with normal function of the valve by recent echocardiogram, prior history of pulmonary embolism off oral anticoagulation due to GI bleed recently. Came to the hospital after a fall and developed left hip pain and noted to have left hip fracture. Plan to undergo this urgent surgery under general anesthesia, intermediate risk surgery. Patient denies any recent heart failure symptoms. Has not had any orthopnea, PND, leg edema. Has been taking all his medication, however is neurohormonal modulation has been difficult to up titrate due to low blood pressure which is are long-term problem. Noted to be sinus tachycardia today, is in lot of pain and also has anemia. Currently taking 40 mg twice a day of Lasix as well as on eplerenone therapy. He denies lightheadedness, syncope leading to the fall. No recent chest pain. Review of Systems Constitutional: Constitutional: Denies chills, Denies fever(s), Denies malaise and Reports weight loss Cardiovascular: Cardiovascular: Reports no additional cardiovascular complaints Respiratory: Respiratory: Reports no additional respiratory complaints Gastrointestinal: Gastrointestinal: Reports no additional gastrointestinal complaints Genitourinary: Genitourinary: Reports no additional male genitourinary complaints Musculoskeletal: Musculoskeletal: Reports arthralgias (Left hip due to fracture) Integumentary/Breasts: Skin/Breast: Reports system reviewed and no additional complaints, except as docu Neurologic: Reports system reviewed and no additional complaints, except as documented Psychiatric: Psychiatric: Reports no additional psychiatric complaints Endocrine: Endocrine: Reports no additional endocrine complaints [facility] Past Medical History Medical History (Updated 01/26/21 @ 10:29 by Eric Javier MD) Aortic stenosis, severe Cardiac resynchronization therapy defibrillator ([employer]-D) in place Complete heart block HFrEF (heart failure with reduced ejection fraction) Hodgkins lymphoma Hypocalcemia Hypotension (arterial) Hypothyroid LBBB (left bundle branch block) NICM (nonischemic cardiomyopathy) Pacemaker Pulmonary embolism Recurrent pleural effusion on right Shortness of breath Family History Family History Father No problems noted. Mother No problems noted. Surgical History Surgical History H/O splenectomy History of appendectomy History of cardiac pacemaker S/P TAVR (transcatheter aortic valve replacement) (~10/29/20) Social History Social History Household Members: Family Housing: House Do you presently have visiting nurse or other home services: No Alcohol intake: never Patient Tobacco Use Status: Never used Tobacco Advance Directives Date on File: 01/25/21 service: Yes Current occupational status: employed Meds Allergies Allergy/AdvReac Type Severity Reaction Status Date / Time No Known Allergies Allergy Verified 12/21/20 14:29 [No Known Allergies*] Active Medications: Current Medications Generic Name Dose Route Start Last Admin Trade Name Freq PRN Reason Stop Dose Admin Acetaminophen 650 mg 01/25/21 14:51 Acetaminophen Supp 650 Mg Supp.Rect ID Q6H PRN Pain, Mild (Pain Scale 1-3) Docusate Sodium 100 mg 01/25/21 21:00 01/26/21 08:45 Docusate Sodium 100 Mg Capsule PO Not Given BID JERRELL Hydromorphone HCl 0.25 mg 01/25/21 14:51 01/26/21 08:45 Hydromorphone Hcl 0.5 Mg/0.5 Ml Syringe IVPUSH 0.25 mg Q4H PRN Administration Pain, Severe (Pain Scale 7-10) Dextrose/Sodium Chloride 1,000 mls @ 80 mls/hr 01/25/21 14:51 01/26/21 03:55 D51/2ns IVCONT 80 mls/hr .[id number] JERRELL Administration Ceftriaxone Sodium 1 gm/ 50 mls @ 100 mls/hr 01/26/21 05:00 01/26/21 07:16 Sodium Chloride IV Infused Q24H JERRELL Infusion Levothyroxine Sodium 175 mcg 01/26/21 06:00 01/26/21 06:12 Levothyroxine Sodium 175 Mcg Tablet PO Not Given DAILY@0600 JERRELL Naloxone HCl 0.2 mg 01/25/21 14:51 Naloxone Hcl 0.4 Mg/Ml Vial IVPUSH Q2M PRN Excessive sedation or RR < 8 Ondansetron HCl 4 mg 01/25/21 14:51 Ondansetron Hcl 4 Mg/2 Ml Vial IVPUSH Q8H PRN Nausea and Vomiting Oxycodone HCl 5 mg 01/25/21 14:51 01/25/21 16:51 Oxycodone Hcl Immed Release 5 Mg Tablet PO 5 mg Q4H PRN Administration Pain, Moderate (Pain Scale 4-6 Oxycodone HCl 10 mg 01/25/21 14:51 Oxycodone Hcl Er 10 Mg Tab.Er.12h PO BID PRN Pain, Severe (Pain Scale 7-10) Pharmacy Consult 1 each 01/25/21 10:27 Consult Rx Perform Med Rec MISCELLANE ONCE PRN Consult order Sodium Chloride 3 ml 01/25/21 16:00 01/26/21 08:45 0.9 % Sodium Chloride Flush 3 Ml Syringe IVFLUSH 3 ml QSHIFT [facility] Administration Home Medications Medication Instructions Recorded Confirmed Last Taken Type furosemide 40 mg tablet 40 mg PO BID tab 12/21/20 01/25/21 01/14/21 06:00 History Physical Exam Vital Signs: Vital Signs: Last Vital Signs Temp 100.4 F 01/26/21 07:14 Pulse 110 H 01/26/21 07:14 Resp 18 01/26/21 07:14 BP 99/58 L 01/26/21 07:14 Pulse Ox 95 01/26/21 07:14 Body Mass Index 23.4 Const: General: cooperative, comfortable, no acute distress, alert, awake and tired appearing Nutritional Appearance: underweight Orientation/consciousn ess: patient oriented x3 HENMT: Head: Yes normocephalic and Yes atraumatic Neck: Neck: Yes trachea midline, Yes supple and Yes no JVD Resp: Effort & Inspection: normal respiratory effort Auscultation: clear to auscultation bilaterally Cardio: Jugular venous distension: no JVD Palpation: normal PMI Rate: regular rate and tachycardic Rhythm: regular rhythm Heart sounds: S1 normal heart sound present, S2 normal heart sound present, no click, no gallops, no murmurs and no rubs GI: Auscultation: normal bowel sounds Skin: General skin exam: no rashes or lesions noted Neuro: General: patient oriented x3 and no focal motor deficits Extrem: General: Yes no clubbing, cyanosis or edema Psych: Appearance: grossly normal Results Labs and Meds Result diagrams: 01/26/21 05:47 01/26/21 05:47 Lab results: Laboratory Results - last 24 hr 01/25/21 01/26/21 01/26/21 15:49 05:47 05:47 WBC 10.6 RBC 3.97 L Hgb 8.7 L Hct 29.0 L MCV 73.0 L MCH 21.9 L MCHC 30.0 L RDW 27.0 H Plt Count 444 H MPV 9.7 Immature Gran % (Auto) 0.5 H Neut % (Auto) 81.9 H Lymph % (Auto) 5.7 L [place] % (Auto) 9.2 Eos % (Auto) 1.8 Baso % (Auto) 0.9 Lymph # (Auto) 0.6 L [place] # (Auto) 1.0 Eos # (Auto) 0.2 Baso # (Auto) 0.1 Abs Immat Gran (auto) 0.05 H Absolute Neuts (auto) 8.7 H Absolute Nucleated RBC 0.000 Nucleated RBC % (auto) 0.0 Sodium 137 Potassium 4.1 Chloride 102 Carbon Dioxide 27 Anion Gap 12 BUN 10 Creatinine 0.74 Estim Creat Clear Calc 115.8 Estimated GFR > 60 Random Glucose 111 Lactic Acid Calcium 8.5 Urine Color Urine Appearance Urine pH Ur Specific [place] Urine Protein Urine Glucose (UA) Urine Ketones Urine Blood Urine Nitrite Ur Leukocyte Esterase Urine RBC Urine WBC Ur Squamous Epith Cells Urine Bacteria Urine Mucus COVID-19 (SHANICE) COVID-19 Clin Com Blood Type A Positive Antibody Screen NEGATIVE 01/26/21 01/26/21 01/26/21 05:48 05:56 05:56 WBC RBC Hgb Hct MCV MCH MCHC RDW Plt Count MPV Immature Gran % (Auto) Neut % (Auto) Lymph % (Auto) [place] % (Auto) Eos % (Auto) Baso % (Auto) Lymph # (Auto) [place] # (Auto) Eos # (Auto) Baso # (Auto) Abs Immat Gran (auto) Absolute Neuts (auto) Absolute Nucleated RBC Nucleated RBC % (auto) Sodium Potassium Chloride Carbon Dioxide Anion Gap BUN Creatinine Estim Creat Clear Calc Estimated GFR Random Glucose Lactic Acid 0.8 Calcium Urine Color YELLOW Urine Appearance HAZY Urine pH 7.0 Ur Specific [place] 1.020 Urine Protein 1+ H Urine Glucose (UA) NEG Urine Ketones NEG Urine Blood 2+ H Urine Nitrite NEG Ur Leukocyte Esterase NEG Urine RBC 10-14 H Urine WBC 0-2 Ur Squamous Epith Cells NONE Urine Bacteria NONE Urine Mucus 1+ COVID-19 (SHANICE) Negative COVID-19 Clin Com See Note Blood Type Antibody Screen Monitor shows sinus tachycardia with ventricular pacing. No 12 lead EKG was performed during this hospitalization. Imaging Radiologist's impression: Impressions Chest X-Ray 01/26/21 06:38 IMPRESSION: Small to moderate right pleural effusion with adjacent basilar atelectasis, similar to slightly increased from 01/13/2021. Assessment and Plan (1) Preoperative cardiovascular examination: Status: Acute Preoperative cardiovascular examination risk stratification for patient with prior multiple cardiac issues presents with hip fracture due to fall and has to go urgent hip replacement therapy, intermediate risk surgery. Patient currently has no symptoms or signs of congestive heart failure and appears to be compensated and may be on the dehydrated side. His recent echocardiogram shows normal LV ejection fraction with normally function bioprosthetic aortic valve. Clinical exam is within normal limits. He is currently optimized to undergo this surgery with low to intermediate risk for perioperative cardiovascular morbidity and mortality. Would place a magnet over his device during surgery during the use of cautery, to avoid inappropriate discharge, however during this time he needs to be monitored continuously. Hold off on diuretics at this point time. Pay close attention to fluid shifts and fluid overload. Transfuse as needed to maintain hematocrit above 30. Please consult us in the perioperative period if needed. (2) Sinus tachycardia: Status: Acute Sinus tachycardia which appears to be multifactorial, most likely due to anxiety as well as pain related to the hip fracture as well as anemia and possible intravascular volume depletion. Once surgery is completed, P attention to anemia and correct anemia as needed. Hold off on diuretic therapy as above. Will follow with the patient. Procedures Date of Service Date of Service: 01/26/21
--- NOTE | 2021-01-26 11:44 | MHC.SHP ---
Pre-Procedural Eval Section A Date of Service: 01/26/21 The patient is an INPATIENT: Yes Changes since office visit: Yes Patient answered all questions; No Cold of Flu in the past 2 weeks, No New Medical Problems and No Changes in Medication The History & Physical has been completed within 30 days and I have reviewed it.: Yes Section B Chief Complaint: left distal femur fracture Allergies: Allergies Allergy/AdvReac Type Severity Reaction Status Date / Time No Known Allergies Allergy Verified 12/21/20 14:29 [No Known Allergies*] Plan I have reviewed the history and physical and performed a pertinent physical examination on my patient. No changes have occurred unless specified.
--- NOTE | 2021-01-26 11:50 | P.PNIM_ITS ---
Subjective Subjective Date of Service: 01/26/21 Interval History: seen and examined this AM has hip pain, medications help denies any fevers or chills denies any cough or respiratory symptoms denies any chest pain ROS General - no fevers or chills Cardiovascular - no chest pain Respiratory - no shortness of breath or cough Abdominal- no abdominal pain, nausea, vomiting, diarrhea Physical Exam Vital Signs: Vital Signs: Last Vital Signs Temp 99.7 F 01/26/21 11:08 Pulse 109 H 01/26/21 11:08 Resp 18 01/26/21 11:08 BP 100/57 L 01/26/21 11:08 Pulse Ox 94 01/26/21 11:08 Body Mass Index 23.4 Const: Other: General - no acute distress Cardiovascular - regular rate and rhythm, S1-S2 Lungs - normal respiratory effort, clear to auscultation bilaterally, no wheezing Abdomen - soft, non-tender, no rebound or guarding Extremities - no edema bilaterally Neuro - awake and alert, no focal deficits Objective Data Current Medications Generic Name Dose Route Start Last Admin Trade Name Coleq PRN Reason Stop Dose Admin Acetaminophen 650 mg 01/25/21 14:51 Acetaminophen Supp 650 Mg Supp.Rect [place] Q6H PRN Pain, Mild (Pain Scale 1-3) Docusate Sodium 100 mg 01/25/21 21:00 01/26/21 08:45 Docusate Sodium 100 Mg Capsule PO Not Given BID JERRELL Hydromorphone HCl 0.25 mg 01/25/21 14:51 01/26/21 08:45 Hydromorphone Hcl 0.5 Mg/0.5 Ml Syringe IVPUSH 0.25 mg Q4H PRN Administration Pain, Severe (Pain Scale 7-10) Dextrose/Sodium Chloride 1,000 mls @ 80 mls/hr 01/25/21 14:51 01/26/21 03:55 D51/2ns IVCONT 80 mls/hr .[id number] JERRELL Administration Ceftriaxone Sodium 1 gm/ 50 mls @ 100 mls/hr 01/26/21 05:00 01/26/21 07:16 Sodium Chloride IV Infused Q24H JERRELL Infusion Levothyroxine Sodium 175 mcg 01/26/21 06:00 01/26/21 06:12 Levothyroxine Sodium 175 Mcg Tablet PO Not Given DAILY@0600 JERRELL Naloxone HCl 0.2 mg 01/25/21 14:51 Naloxone Hcl 0.4 Mg/Ml Vial IVPUSH Q2M PRN Excessive sedation or RR < 8 Ondansetron HCl 4 mg 01/25/21 14:51 Ondansetron Hcl 4 Mg/2 Ml Vial IVPUSH Q8H PRN Nausea and Vomiting Oxycodone HCl 5 mg 01/25/21 14:51 01/25/21 16:51 Oxycodone Hcl Immed Release 5 Mg Tablet PO 5 mg Q4H PRN Administration Pain, Moderate (Pain Scale 4-6 Oxycodone HCl 10 mg 01/25/21 14:51 Oxycodone Hcl Er 10 Mg Tab.Er.12h PO BID PRN Pain, Severe (Pain Scale 7-10) Pharmacy Consult 1 each 01/25/21 10:27 Consult Rx Perform Med Rec MISCELLANE ONCE PRN Consult order Sodium Chloride 3 ml 01/25/21 16:00 01/26/21 08:45 0.9 % Sodium Chloride Flush 3 Ml Syringe IVFLUSH 3 ml [facility] Administration Labs CBC & Chem 7: 01/26/21 05:47 01/26/21 05:47 Labs: Laboratory Results - last 24 hr 01/25/21 01/26/21 01/26/21 15:49 05:47 05:47 WBC 10.6 RBC 3.97 L Hgb 8.7 L Hct 29.0 L MCV 73.0 L MCH 21.9 L MCHC 30.0 L RDW 27.0 H Plt Count 444 H MPV 9.7 Immature Gran % (Auto) 0.5 H Neut % (Auto) 81.9 H Lymph % (Auto) 5.7 L [place] % (Auto) 9.2 Eos % (Auto) 1.8 Baso % (Auto) 0.9 Lymph # (Auto) 0.6 L [place] # (Auto) 1.0 Eos # (Auto) 0.2 Baso # (Auto) 0.1 Abs Immat Gran (auto) 0.05 H Absolute Neuts (auto) 8.7 H Absolute Nucleated RBC 0.000 Nucleated RBC % (auto) 0.0 Sodium 137 Potassium 4.1 Chloride 102 Carbon Dioxide 27 Anion Gap 12 BUN 10 Creatinine 0.74 Estim Creat Clear Calc 115.8 Estimated GFR > 60 Random Glucose 111 Lactic Acid Calcium 8.5 Urine Color Urine Appearance Urine pH Ur Specific [place] Urine Protein Urine Glucose (UA) Urine Ketones Urine Blood Urine Nitrite Ur Leukocyte Esterase Urine RBC Urine WBC Ur Squamous Epith Cells Urine Bacteria Urine Mucus COVID-19 (SHANICE) COVID-19 Clin Com Blood Type A Positive Antibody Screen NEGATIVE 01/26/21 01/26/21 01/26/21 05:48 05:56 05:56 WBC RBC Hgb Hct MCV MCH MCHC RDW Plt Count MPV Immature Gran % (Auto) Neut % (Auto) Lymph % (Auto) [place] % (Auto) Eos % (Auto) Baso % (Auto) Lymph # (Auto) [place] # (Auto) Eos # (Auto) Baso # (Auto) Abs Immat Gran (auto) Absolute Neuts (auto) Absolute Nucleated RBC Nucleated RBC % (auto) Sodium Potassium Chloride Carbon Dioxide Anion Gap BUN Creatinine Estim Creat Clear Calc Estimated GFR Random Glucose Lactic Acid 0.8 Calcium Urine Color YELLOW Urine Appearance HAZY Urine pH 7.0 Ur Specific [place] 1.020 Urine Protein 1+ H Urine Glucose (UA) NEG Urine Ketones NEG Urine Blood 2+ H Urine Nitrite NEG Ur Leukocyte Esterase NEG Urine RBC 10-14 H Urine WBC 0-2 Ur Squamous Epith Cells NONE Urine Bacteria NONE Urine Mucus 1+ COVID-19 (SHANICE) Negative COVID-19 Clin Com See Note Blood Type Antibody Screen Imaging Hip CT: Radiologist's impression: Impressions Chest X-Ray 01/26/21 06:38 IMPRESSION: Small to moderate right pleural effusion with adjacent basilar atelectasis, similar to slightly increased from 01/13/2021. Quality Stroke Does the patient have a stroke diagnosis?: No VTE Prior VTE?: No VTE Risk Level:: Surgical - high VTE Device Contraindication: N/A - Device Ordered VTE Drug Contraindication: Treatment Not Indicated Assessment and Plan (1) Closed femur fracture: Status: Acute (2) Leukocytosis: Status: Acute Assessment and Plan: A 60 years old male with PMH which can inform CHF, aortic stenosis post AVR, chronic anemia among others who presented to the hospital after sustaining a mechanical fall and found to hip fracture. Isolated fever / leukocytosis no definitive source started on empiric rocephin f/u cultures Anemia, chronic had recent GI bleed - had some benign polpys on colonoscopy -- his eliquis was discontinued and he was started on eliquis in light of requiring DVT pptx post operatively -- will get GI input on safest medication monitor h/h post surger and transfuse to keep crit around 30 (see cardiology note) Preop evaluation see cardiology notes Chronic HFpEF Watch for fluid overload with IVF - d/c once he is no longer NPO Cardiology team consulted Will follow
--- NOTE | 2021-01-26 12:29 | P.CONAN_ITS ---
[facility] Active Problems Active Problems: All Active Problems (Updated 01/26/21 @ 10:29 by Eric Javier MD) Sinus tachycardia (Acute) Preoperative cardiovascular examination (Acute) Leukocytosis (Acute) Closed femur fracture (Acute) Encounter for interrogation of cardiac defibrillator (Acute) Hodgkin lymphoma (Acute) 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(Acute) Anemia (Acute) Fecal occult blood test positive (Acute) Bilateral pulmonary embolism (Acute) Congestive heart failure (Acute) Hyperkalemia (Acute) Hypothyroid (Acute) Hypocalcemia (Acute) Past Medical History Medical History Aortic stenosis, severe Cardiac 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 Mother No problems noted. Surgical History Surgical History H/O splenectomy History of appendectomy History of cardiac pacemaker S/P TAVR (transcatheter aortic valve replacement) (~10/29/20) Social History Social History Household Members: Family Housing: House Do you presently have visiting nurse or other home services: No Alcohol intake: never Patient Tobacco Use Status: Never used Tobacco Second Hand Smoke Exposure: No Advance Directives Date on File: 01/25/21 service: Yes Current occupational status: employed Meds Allergies Allergy/AdvReac Type Severity Reaction Status Date / Time No Known Allergies Allergy Verified 12/21/20 14:29 [No Known Allergies*] Active Medications: Current Medications Generic Name Dose Route Start Last Admin Trade Name Freq PRN Reason Stop Dose Admin Acetaminophen 650 mg 01/25/21 14:51 Acetaminophen Supp 650 Mg Supp.Rect OK Q6H PRN Pain, Mild (Pain Scale 1-3) Docusate Sodium 100 mg 01/25/21 21:00 01/26/21 08:45 Docusate Sodium 100 Mg Capsule PO Not Given BID JERRELL Hydromorphone HCl 0.25 mg 01/25/21 14:51 01/26/21 08:45 Hydromorphone Hcl 0.5 Mg/0.5 Ml Syringe IVPUSH 0.25 mg Q4H PRN Administration Pain, Severe (Pain Scale 7-10) Dextrose/Sodium Chloride 1,000 mls @ 80 mls/hr 01/25/21 14:51 01/26/21 03:55 D51/2ns IVCONT 80 mls/hr .[id number] JERRELL Administration Ceftriaxone Sodium 1 gm/ 50 mls @ 100 mls/hr 01/26/21 05:00 01/26/21 07:16 Sodium Chloride IV Infused Q24H JERRELL Infusion Levothyroxine Sodium 175 mcg 01/26/21 06:00 01/26/21 06:12 Levothyroxine Sodium 175 Mcg Tablet PO Not Given DAILY@0600 JERRELL Naloxone HCl 0.2 mg 01/25/21 14:51 Naloxone Hcl 0.4 Mg/Ml Vial IVPUSH Q2M PRN Excessive sedation or RR < 8 Ondansetron HCl 4 mg 01/25/21 14:51 Ondansetron Hcl 4 Mg/2 Ml Vial IVPUSH Q8H PRN Nausea and Vomiting Oxycodone HCl 5 mg 01/25/21 14:51 01/25/21 16:51 Oxycodone Hcl Immed Release 5 Mg Tablet PO 5 mg Q4H PRN Administration Pain, Moderate (Pain Scale 4-6 Oxycodone HCl 10 mg 01/25/21 14:51 Oxycodone Hcl Er 10 Mg Tab.Er.12h PO BID PRN Pain, Severe (Pain Scale 7-10) Pharmacy Consult 1 each 01/25/21 10:27 Consult Rx Perform Med Rec MISCELLANE ONCE PRN Consult order Sodium Chloride 3 ml 01/25/21 16:00 01/26/21 08:45 0.9 % Sodium Chloride Flush 3 Ml Syringe IVFLUSH 3 ml QSHIFT JERRELL Administration Home Medications Medication Instructions Recorded Confirmed Last Taken Type furosemide 40 mg tablet 40 mg PO BID tab 12/21/20 01/25/21 01/14/21 06:00 History Exam Exam Date and Time: January 26, 2021 1229 Height,Weight and Vital Signs: Height 5 ft 11 in Weight 76.204 kg Last Vital Signs Temp 99.7 F 01/26/21 11:08 Pulse 109 H 01/26/21 11:08 Resp 18 01/26/21 11:08 BP 100/57 L 01/26/21 11:08 Pulse Ox 94 01/26/21 11:08 Pertinent Lab Results Pertinent Lab Results: Laboratory Tests 01/25/21 01/25/21 01/25/21 08:30 08:30 15:49 WBC 14.4 H RBC 4.11 L Hgb 9.0 L Hct 30.2 L MCV 73.5 L MCH 21.9 L MCHC 29.8 L RDW 26.5 H Plt Count 493 H D MPV 9.6 Immature Gran % (Auto) 0.8 H Neut % (Auto) 86.3 H Lymph % (Auto) 4.2 L [place] % (Auto) 8.2 Eos % (Auto) 0.2 Baso % (Auto) 0.3 Lymph # (Auto) 0.6 L [place] # (Auto) 1.2 Eos # (Auto) 0.0 Baso # (Auto) 0.1 Abs Immat Gran (auto) 0.12 H Absolute Neuts (auto) 12.4 H Absolute Nucleated RBC 0.000 Nucleated RBC % (auto) 0.0 Sodium 139 Potassium 4.1 Chloride 100 Carbon Dioxide 31 H Anion Gap 12 BUN 14 Creatinine 0.77 Estim Creat Clear Calc 111.3 Estimated GFR > 60 Random Glucose 91 Lactic Acid Calcium 8.8 D Total Bilirubin 0.6 Direct Bilirubin 0.3 AST 23 ALT 13 Alkaline Phosphatase 62 Total Protein 6.9 Albumin 3.6 Urine Color Urine Appearance Urine pH Ur Specific [place] Urine Protein Urine Glucose (UA) Urine Ketones Urine Blood Urine Nitrite Ur Leukocyte Esterase Urine RBC Urine WBC Ur Squamous Epith Cells Urine Bacteria Urine Mucus COVID-19 (SHANICE) COVID-19 Clin Com Blood Type A Positive Antibody Screen NEGATIVE 01/26/21 01/26/21 01/26/21 05:47 05:47 05:48 WBC 10.6 RBC 3.97 L Hgb 8.7 L Hct 29.0 L MCV 73.0 L MCH 21.9 L MCHC 30.0 L RDW 27.0 H Plt Count 444 H MPV 9.7 Immature Gran % (Auto) 0.5 H Neut % (Auto) 81.9 H Lymph % (Auto) 5.7 L [place] % (Auto) 9.2 Eos % (Auto) 1.8 Baso % (Auto) 0.9 Lymph # (Auto) 0.6 L [place] # (Auto) 1.0 Eos # (Auto) 0.2 Baso # (Auto) 0.1 Abs Immat Gran (auto) 0.05 H Absolute Neuts (auto) 8.7 H Absolute Nucleated RBC 0.000 Nucleated RBC % (auto) 0.0 Sodium 137 Potassium 4.1 Chloride 102 Carbon Dioxide 27 Anion Gap 12 BUN 10 Creatinine 0.74 Estim Creat Clear Calc 115.8 Estimated GFR > 60 Random Glucose 111 Lactic Acid 0.8 Calcium 8.5 Total Bilirubin Direct Bilirubin AST ALT Alkaline Phosphatase Total Protein Albumin Urine Color Urine Appearance Urine pH Ur Specific [place] Urine Protein Urine Glucose (UA) Urine Ketones Urine Blood Urine Nitrite Ur Leukocyte Esterase Urine RBC Urine WBC Ur Squamous Epith Cells Urine Bacteria Urine Mucus COVID-19 (SHANICE) COVID-19 [employer] Blood Type Antibody Screen 01/26/21 01/26/21 05:56 05:56 WBC RBC Hgb Hct MCV MCH MCHC RDW Plt Count MPV Immature Gran % (Auto) Neut % (Auto) Lymph % (Auto) [place] % (Auto) Eos % (Auto) Baso % (Auto) Lymph # (Auto) [place] # (Auto) Eos # (Auto) Baso # (Auto) Abs Immat Gran (auto) Absolute Neuts (auto) Absolute Nucleated RBC Nucleated RBC % (auto) Sodium Potassium Chloride Carbon Dioxide Anion Gap BUN Creatinine Estim Creat Clear Calc Estimated GFR Random Glucose Lactic Acid Calcium Total Bilirubin Direct Bilirubin AST ALT Alkaline Phosphatase Total Protein Albumin Urine Color YELLOW Urine Appearance HAZY Urine pH 7.0 Ur Specific [place] 1.020 Urine Protein 1+ H Urine Glucose (UA) NEG Urine Ketones NEG Urine Blood 2+ H Urine Nitrite NEG Ur Leukocyte Esterase NEG Urine RBC 10-14 H Urine WBC 0-2 Ur Squamous Epith Cells NONE Urine Bacteria NONE Urine Mucus 1+ COVID-19 (SHANICE) Negative COVID-19 [employer] Com See Note Blood Type Antibody Screen Airway Mallampati Class: III TM Dist: <=3cm Neck ROM: Limited Loose/Missing/Broken Teeth: Yes Assessment and Plan Assessment Anesthesia Assessment: Anesthesia Plan Discussed and Chart Reviewed Final Anesthetic Review NPO: Yes ASA Class: IV Final Preanesthetic Review: No Changes in Pt Med Stat, Meds/Allgs Chart Reviewed, Consent Obtained/Reviewed and Anes Risks/Benef Reviewed Patient Risk: High Procedure Risk: Low Assessment/Block/Sedation in SS: Assess/Block/Sedation-SS Anesthetic Plan Anesthetic Plan: GA and Regional Block
--- NOTE | 2021-01-26 13:45 | P.OP_ITS ---
Operative Note Operative Note Date of Service: 01/26/21 Narrative: Pre-op diagnosis: left femoral neck fracture Post-op diagnosis: same Procedure: CRPP left hip Implants: Malinda 9.0 cannulated partially threaded screws x 3 Surgeon: Irvin Mena MD Anesthesia: GETA and local Was an Cemetery Vault Installer used for this Procedure?: No Estimated blood loss (mL): 25 IV fluids (mL): 800 Pathology: none sent Condition: stable Disposition: PACU Procedure in detail: Patient was brought to the operating room and placed supine on the surgical table. He was prepped and draped in standard sterile fashion and a time out was called to identify proper site, proper procedure and IV antibiotics per weight w ere administered. I began by placing traction on the left hip and under fluoroscopic visualization internally rotated and abducted the hip and tell I was satisfied with the reduction on orthogonal imaging. Initially there had been some anterior apex angulation on the lateral and I was able to eliminate this for a near anatomic reduction with some mild valgus impaction. I released the traction and was satisfied that the fracture was stable. I began by placing 1 anterior inferior threaded K-wire through the hip starting at the level of the lesser trochanter and extending medially to the subchondral bone. I then repeated this process with an anterior superior and a posterior superior screw to create an inverted triangle configuration. Once I was satisfied with the K- wire position the screw lengths were measured and K-wires over-drilled and then 8.0 screws were placed in standard AO fashion. Biplanar fluoroscopy was used to confirm that the screws were intraosseous it in all projections. The fracture alignment was maintained and I was satisfied with the position of the screws. All instrumentation was then removed and the wound was irrigated copiously. I injected approximately 25 mL of 0.25% Marcaine with epinephrine and closed with absorbable 2-0 Vicryl suture and skin portillo. Patient was placed in sterile dressing extubated brought to recovery room in stable condition there were no known complications.
--- NOTE | 2021-01-26 14:37 | CONS_ITS ---
DATE OF SERVICE: 01/26/2021 REFERRING PHYSICIAN: Pancho Rojas MD REASON FOR CONSULTATION: Recent GI bleed and hip fracture, needing DVT prophylaxis. HISTORY OF PRESENT ILLNESS: The patient is a 60-year-old man, well known to me from recent evaluation. He is seen in the recovery room after repair of a left femoral neck fracture and is not able to provide any history as he has just undergone anesthesia. He was recently evaluated earlier in January because of anemia and Hemoccult-positive stools, where he required blood transfusion. He underwent upper endoscopy and colonoscopy to the terminal ileum. The colonoscopy showed multiple polyps consistent with his previous history of 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with hamartomatous colon polyps. He also had large internal hemorrhoids and a lipoma. An upper endoscopy had been done the day prior to the colonoscopy, which showed gastric polyps, but no upper GI bleeding source was identified. He was discharged after his hematocrit was stable and outpatient followup capsule endoscopy was to be arranged. At the time, he presented with anemia and Hemoccult-positive stools. He had been on Eliquis for pulmonary embolism and also been on aspirin. It was felt safe to restart these medications at the time of his discharge. He presented yesterday with mechanical fall and the above-mentioned hip fracture. PAST MEDICAL HISTORY: 1. Recent hip fracture. 2. Lymphoma, treated with radiation and chemotherapy to the chest. 3. Cardiomyopathy with aortic stenosis and defibrillator placement. He also had complete heart block that required a pacemaker placement. 4. Hypotension. 5. Colon polyps. 6. Pulmonary embolism. 7. Left bundle-branch block. PAST SURGICAL HISTORY: Includes splenectomy, appendectomy, pacemaker defibrillator placement as well as TAVR in October of this year. CURRENT MEDICATIONS: His current medication list is reviewed in the chart. ALLERGIES: THERE ARE NONE REPORTED. FAMILY HISTORY: This is reviewed with the electronic medical record and is negative for upper GI malignancy. SOCIAL HISTORY: Infrequent alcohol use and no tobacco use. REVIEW OF SYSTEMS: This is not obtainable at this time as the patient has undergone anesthesia for his hip surgery. PHYSICAL EXAMINATION: GENERAL: Shows a sedated male, lying in bed. VITAL SIGNS: Stable. SKIN: Pale. HEENT: Shows no scleral icterus. NECK: Without lymphadenopathy or thyromegaly. LUNGS: Clear. HEART: Shows regular rate and rhythm. S1, S2. No murmur. ABDOMEN: Soft without focal masses or tenderness. Bowel sounds are present. No organomegaly is noted. EXTREMITIES: Show dressing in place at the site of his hip repair. LABORATORY DATA: Shows a hematocrit of 29 from this morning. IMPRESSION: Anemia with Hemoccult-positive stools. His recent GI tract evaluation showed no source for his significant anemia that he presented with earlier in the month and outpatient capsule endoscopy is being arranged. At this point, I would recommend continuing a proton pump inhibitor empirically. Anticoagulation can be given appropriately and he should have his hematocrit monitored. If he does show signs of acute GI blood loss, further evaluation may be necessary. Thanks for asking me to see him. I will follow him in the hospital with you. MD ELLYN Andersen/LETICIA / [id number] MTDD
[2021-01-26] MEDS: Docusate Sodium 100 MG CAPSULE PO (19:58)
[2021-01-27] VITALS (9 sets, daily range): BP systolic 96–111; BP diastolic 51–60; PULSE 82–96; RESP 16–24; TEMP 36.3–36.7; O2SAT 95–100
[2021-01-27] MEDS: cefTRIAXone sodium 1 GM in 0.9 % Sodium Chloride 50 ML IV (04:22)
[2021-01-27] MEDS: HYDROmorphone HCl 0.5 MG/0.5 ML SYRINGE 0.25 MG IVPUSH ×4 (04:22→21:42)
[2021-01-27] MEDS: Omeprazole 20 MG CAPSULE.DR PO (05:43)
[2021-01-27] MEDS: Levothyroxine Sodium 175 MCG TABLET PO (05:44)
[2021-01-27] MEDS: Dextrose 5 % and 0.45 % NaCl 1,000 ML 80 ML IVCONT (05:44)
[2021-01-27 06:59] LABS: MANUAL DIFF FLAG NO
[2021-01-27 07:08] LABS: Basophils Percent Auto 0.1 % (0-2); Hematocrit 30.5 % (42-52); Hemoglobin 8.7 g/dl (14.0-18.0); Imm Gran Abs Auto 0.09 X10*3/uL (0.00-0.03); Imm Gran Pct Auto 0.6 % (0.0-0.4); Lymphocytes Absolute Auto 0.5 X10*3/uL (1.2-4.9); Lymphocytes Percent Auto 3.3 % (20-40); Mean Corpuscular HGB Conc 28.5 g/dl (31.0-36.0); Mean Corpuscular Hemoglobin 21.1 pg (27.0-33.0); Mean Platelet Volume 10.2 fL (9.4-12.4); Monocytes Absolute Auto 1.1 X10*3/uL (0.1-1.2); Monocytes Percent Auto 7.3 % (2-11); Neutrophils Absolute Auto 12.8 X10*3/uL (2.0-8.3); Neutrophils Percent Auto 88.7 % (45-73); Platelet Count 423 X10*3/uL (160-400); Red Blood Count 4.12 X10*6/uL (4.60-5.80); Red Cell Distribution Width 27.1 % (11.0-16.0); White Blood Count 14.4 X10*3/uL (4.8-10.8)
[2021-01-27 07:34] LABS: Anion Gap 14 (12-20); Blood Urea Nitrogen 14 mg/dL (9-16); Calcium 8.4 mg/dL (8.4-10.2); Carbon Dioxide 25 mmol/L (22-29); Chloride 103 mmol/L (96-108); Creatinine Clr Calc Pharmacy 124.2; Estimated Glomerular Filt Rate > 60; Glucose Random 151 mg/dL (60-115); Potassium 4.6 mmol/L (3.3-5.1); Sodium 137 mmol/L (135-145)
[2021-01-27] MEDS: 0.9 % Sodium Chloride Flush 3 ML SYRINGE IVFLUSH ×2 (07:56→15:32)
[2021-01-27] MEDS: Docusate Sodium 100 MG CAPSULE PO ×2 (07:58→21:42)
[2021-01-27] MEDS: Acetaminophen 325 MG TABLET PO (08:31)
[2021-01-27] MEDS: oxyCODONE HCl Immed Release 5 MG TABLET PO ×2 (08:31→12:43)
[2021-01-27] MEDS: oxyCODONE HCl ER 10 MG TAB.ER.12H PO (08:31)
--- NOTE | 2021-01-27 08:32 | P.PNOP_ITS ---
Subjective Subjective Date of Service: 01/27/21 Interval history: POD 1 s/p Left hip percutaneous pinning No overnight events. resting in bed ,has some discomfort, tolerating meds well. Physical Exam Vital Signs: Vital Signs: Last Vital Signs Temp 97.6 F 01/27/21 07:38 Pulse 82 01/27/21 07:38 Resp 18 01/27/21 07:38 BP 104/60 01/27/21 07:38 Pulse Ox 98 01/27/21 07:38 Body Mass Index 23.4 Extrem: Other: incision clean dry and intact. No erythema or effusion. Calf supple nontender. Neurovascularly intact. Progress Note: A&P Assessment and plan (1) Closed femur fracture: Status: Acute Assessment and Plan: * Continue pain mgmnt * Begin lovenox for dvt ppx * begin PT for LT hip * Dispo planning-Pending PT eval, pain mgmnt Fall Risk Details Current Medications: Current Medications Generic Name Dose Route Start Last Admin Trade Name Freq PRN Reason Stop Dose Admin Acetaminophen 325 mg 01/26/21 15:50 Acetaminophen 325 Mg Tablet PO Q4H PRN Pain, Mild (Pain Scale 1-3) Docusate Sodium 100 mg 01/25/21 21:00 01/27/21 07:58 Docusate Sodium 100 Mg Capsule PO 100 mg BID JERRELL Administration Hydromorphone HCl 0.25 mg 01/25/21 14:51 01/27/21 04:22 Hydromorphone Hcl 0.5 Mg/0.5 Ml Syringe IVPUSH 0.25 mg Q4H PRN Administration Pain, Severe (Pain Scale 7-10) Dextrose/Sodium Chloride 1,000 mls @ 80 mls/hr 01/25/21 14:51 01/27/21 05:44 D51/2ns IVCONT 80 mls/hr .[id number] JERRELL Administration Ceftriaxone Sodium 1 gm/ 50 mls @ 100 mls/hr 01/26/21 05:00 01/27/21 05:41 Sodium Chloride IV Infused Q24H JERRELL Infusion Levothyroxine Sodium 175 mcg 01/26/21 06:00 01/27/21 05:44 Levothyroxine Sodium 175 Mcg Tablet PO 175 mcg DAILY@0600 JERRELL Administration Naloxone HCl 0.2 mg 01/25/21 14:51 Naloxone Hcl 0.4 Mg/Ml Vial IVPUSH Q2M PRN Excessive sedation or RR < 8 Omeprazole 20 mg 01/27/21 06:30 01/27/21 05:43 Omeprazole 20 Mg Capsule.Dr PO 20 mg DAILY@0630 JERRELL Administration Ondansetron HCl 4 mg 01/25/21 14:51 Ondansetron Hcl 4 Mg/2 Ml Vial IVPUSH Q8H PRN Nausea and Vomiting Oxycodone HCl 5 mg 01/25/21 14:51 01/25/21 16:51 Oxycodone Hcl Immed Release 5 Mg Tablet PO 5 mg Q4H PRN Administration Pain, Moderate (Pain Scale 4-6 Oxycodone HCl 10 mg 01/25/21 14:51 Oxycodone Hcl Er 10 Mg Tab.Er.12h PO BID PRN Pain, Severe (Pain Scale 7-10) Pharmacy Consult 1 each 01/25/21 10:27 Consult Rx Perform Med Rec MISCELLANE ONCE PRN Consult order Sodium Chloride 3 ml 01/25/21 16:00 01/27/21 07:56 0.9 % Sodium Chloride Flush 3 Ml Syringe IVFLUSH 3 ml QSHIFT JERRELL Administration Time Spent With Patient Time: Total time spent is greater than 50% in coordination of care (as documented) at patient's floor/unit and/or counseling patient: Time with patient: less than 15 minutes Procedures Date of Service Date of Service: 01/27/21 Quality Stroke Does the patient have a stroke diagnosis?: No VTE Prior VTE?: No VTE Risk Level:: Surgical - high VTE Device Contraindication: N/A - Device Ordered VTE Drug Contraindication: Treatment Not Indicated
--- NOTE | 2021-01-27 11:22 | PM.PNCARD ---
Subjective Subjective Date of Service: 01/27/21 Principal diagnosis: History of congestive heart failure. Interval history: Patient underwent hip surgery yesterday. Today out of bed to chair and his pain is improved. His heart rate is also slow down. Blood pressure on lower side. Denies any lightheadedness. No shortness of breath. Hematocrit is stable. Review of Systems Constitutional: Reports no additional constitutional complaints Cardiovascular: Reports no additional cardiovascular complaints Respiratory: Reports no additional respiratory complaints Gastrointestinal: Reports no additional gastrointestinal complaints Reports system reviewed and no additional complaints, except as documented Endocrine: Reports no additional endocrine complaints Physical Exam Vital Signs: Last Vital Signs Temp 98.0 F 01/27/21 11:09 Pulse 87 01/27/21 11:09 Resp 18 01/27/21 11:09 BP 103/59 L 01/27/21 11:09 Pulse Ox 97 01/27/21 11:09 Body Mass Index 23.4 Const General: cooperative, comfortable, no acute distress, awake and Physically active Nutritional Appearance: thin Orientation/consciousness: patient oriented x3 Neck Neck: Yes trachea midline, Yes supple and Yes no JVD Resp Effort & Inspection: normal respiratory effort Auscultation: clear to auscultation bilaterally Cardio Jugular venous distension: no JVD Palpation: normal PMI Rate: regular rate Rhythm: regular rhythm Heart sounds: S1 normal heart sound present and S2 normal heart sound present Neuro General: patient oriented x3 and no focal motor deficits Extrem General: Yes no clubbing, cyanosis or edema Results Labs and Meds Result diagrams: 01/27/21 06:07 01/27/21 06:07 Lab results: Laboratory Results - last 24 hr 01/27/21 01/27/21 06:07 06:07 WBC 14.4 H RBC 4.12 L Hgb 8.7 L Hct 30.5 L MCV 74.0 L MCH 21.1 L MCHC 28.5 L RDW 27.1 H Plt Count 423 H MPV 10.2 Immature Gran % (Auto) 0.6 H Neut % (Auto) 88.7 H Lymph % (Auto) 3.3 L [place] % (Auto) 7.3 Eos % (Auto) 0.0 Baso % (Auto) 0.1 Lymph # (Auto) 0.5 L [place] # (Auto) 1.1 Eos # (Auto) 0.0 Baso # (Auto) 0.0 Abs Immat Gran (auto) 0.09 H Absolute Neuts (auto) 12.8 H Absolute Nucleated RBC 0.000 Nucleated RBC % (auto) 0.0 Sodium 137 Potassium 4.6 Chloride 103 Carbon Dioxide 25 Anion Gap 14 BUN 14 Creatinine 0.69 Estim Creat Clear Calc 124.2 Estimated GFR > 60 Random Glucose 151 H D Calcium 8.4 Imaging Radiologist's impression: Impressions Guidance Fluoroscopy 01/26/21 10:26 IMPRESSION: Fluoroscopy guidance for ORIF of left femoral neck fracture. Progress Note: A&P Assessment and plan (1) Sinus tachycardia: Status: Acute Assessment and Plan: Sinus tachycardia which has improved with pain control. Continue to improve pain control. Continue to monitor his hematocrit. Currently does not require transfusion as his hematocrit is baseline. Will avoid metoprolol therapy due to lower blood pressure. (2) Congestive heart failure: Status: Acute Assessment and Plan: Prior history of congestive heart failure, clinically euvolemic and well compensated. Tolerated surgery well. Would think about reducing his Lasix to 40 mg daily as outpatient. Cannot tolerate neurohormonal modulation due to low blood pressure. Bi V ICD is working well. Will follow up as outpatient. Will sign of the case Fall Risk Details Current Medications: Current Medications Generic Name Dose Route Start Last Admin Trade Name Freq PRN Reason Stop Dose Admin Acetaminophen 325 mg 01/26/21 15:50 01/27/21 08:31 Acetaminophen 325 Mg Tablet PO 325 mg Q4H PRN Administration Pain, Mild (Pain Scale 1-3) Docusate Sodium 100 mg 01/25/21 21:00 01/27/21 07:58 Docusate Sodium 100 Mg Capsule PO 100 mg BID JERRELL Administration Enoxaparin Sodium 40 mg 01/27/21 13:00 Enoxaparin Sodium 40 Mg/0.4 Ml Syringe SUBCUT Q24H JERRELL Hydromorphone HCl 0.25 mg 01/25/21 14:51 01/27/21 10:45 Hydromorphone Hcl 0.5 Mg/0.5 Ml Syringe IVPUSH 0.25 mg Q4H PRN Administration Pain, Severe (Pain Scale 7-10) Dextrose/Sodium Chloride 1,000 mls @ 80 mls/hr 01/25/21 14:51 01/27/21 05:44 D51/2ns IVCONT 80 mls/hr .[id number] JERRELL Administration Ceftriaxone Sodium 1 gm/ 50 mls @ 100 mls/hr 01/26/21 05:00 01/27/21 05:41 Sodium Chloride IV Infused Q24H JERRELL Infusion Levothyroxine Sodium 175 mcg 01/26/21 06:00 01/27/21 05:44 Levothyroxine Sodium 175 Mcg Tablet PO 175 mcg DAILY@0600 JERRELL Administration Naloxone HCl 0.2 mg 01/25/21 14:51 Naloxone Hcl 0.4 Mg/Ml Vial IVPUSH Q2M PRN Excessive sedation or RR < 8 Omeprazole 20 mg 01/27/21 06:30 01/27/21 05:43 Omeprazole 20 Mg Capsule.Dr PO 20 mg DAILY@0630 JERRELL Administration Ondansetron HCl 4 mg 01/25/21 14:51 Ondansetron Hcl 4 Mg/2 Ml Vial IVPUSH Q8H PRN Nausea and Vomiting Oxycodone HCl 5 mg 01/25/21 14:51 01/27/21 08:31 Oxycodone Hcl Immed Release 5 Mg Tablet PO 5 mg Q4H PRN Administration Pain, Moderate (Pain Scale 4-6 Oxycodone HCl 10 mg 01/25/21 14:51 01/27/21 08:31 Oxycodone Hcl Er 10 Mg Tab.Er.12h PO 10 mg BID PRN Administration Pain, Severe (Pain Scale 7-10) Pharmacy Consult 1 each 01/25/21 10:27 Consult Rx Perform Med Rec MISCELLANE ONCE PRN Consult order Sodium Chloride 3 ml 01/25/21 16:00 01/27/21 07:56 0.9 % Sodium Chloride Flush 3 Ml Syringe IVFLUSH 3 ml QSHIFT JERRELL Administration Time Spent With Patient Time: Total time spent is greater than 50% in coordination of care (as documented) at patient's floor/unit and/or counseling patient: Time with patient: 15 - 24 minutes Progress Note: Quality Stroke Does the patient have a stroke diagnosis?: No Procedures Date of Service Date of Service: 01/27/21
--- NOTE | 2021-01-27 11:35 | MHC.CM.PN ---
Per ROUNDS discussion, Patient is not yet medically cleared for dc (IV Dilaudid today and IV Ceftriaxone). STR is the goal for dc and CM will follow for possible need to adjust the dc plan.
[2021-01-27] MEDS: Enoxaparin Sodium 40 MG/0.4 ML SYRINGE SUBCUT (12:43)
--- NOTE | 2021-01-27 14:53 | HO.PM.IMPN ---
Subjective Subjective Date of Service: 01/27/21 Interval History: Feeling good ambulated with physical therapy, pain under good control, appears in good spirits. ROS General - no fevers or chills Cardiovascular - no chest pain, no palpitation Respiratory - no shortness of breath or cough Abdominal- no abdominal pain, no nausea, no vomiting, no diarrhea Physical Exam Vital Signs: Vital Signs: Last Vital Signs Temp 98.0 F 01/27/21 11:09 Pulse 87 01/27/21 11:09 Resp 18 01/27/21 11:09 BP 103/59 L 01/27/21 11:09 Pulse Ox 97 01/27/21 11:09 Body Mass Index 23.4 General - no acute distress Cardiovascular - regular rate and rhythm, S1-S2 Lungs - normal respiratory effort, clear to auscultation bilaterally, no wheezing Abdomen - soft, non-tender, no rebound or guarding Extremities - no edema bilaterally Neuro - awake and alert, no focal deficits Skin no rash Objective Data Current Medications Generic Name Dose Route Start Last Admin Trade Name Freq PRN Reason Stop Dose Admin Acetaminophen 325 mg 01/26/21 15:50 01/27/21 08:31 Acetaminophen 325 Mg Tablet PO 325 mg Q4H PRN Administration Pain, Mild (Pain Scale 1-3) Docusate Sodium 100 mg 01/25/21 21:00 01/27/21 07:58 Docusate Sodium 100 Mg Capsule PO 100 mg BID JERRELL Administration Enoxaparin Sodium 40 mg 01/27/21 13:00 01/27/21 12:43 Enoxaparin Sodium 40 Mg/0.4 Ml Syringe SUBCUT 40 mg Q24H JERRELL Administration Hydromorphone HCl 0.25 mg 01/25/21 14:51 01/27/21 10:45 Hydromorphone Hcl 0.5 Mg/0.5 Ml Syringe IVPUSH 0.25 mg Q4H PRN Administration Pain, Severe (Pain Scale 7-10) Dextrose/Sodium Chloride 1,000 mls @ 80 mls/hr 01/25/21 14:51 01/27/21 05:44 D51/2ns IVCONT 80 mls/hr .[id number] JERRELL Administration Ceftriaxone Sodium 1 gm/ 50 mls @ 100 mls/hr 01/26/21 05:00 01/27/21 05:41 Sodium Chloride IV Infused Q24H JERRELL Infusion Levothyroxine Sodium 175 mcg 01/26/21 06:00 01/27/21 05:44 Levothyroxine Sodium 175 Mcg Tablet PO 175 mcg DAILY@0600 [facility] Administration Naloxone HCl 0.2 mg 01/25/21 14:51 Naloxone Hcl 0.4 Mg/Ml Vial IVPUSH Q2M PRN Excessive sedation or RR < 8 Omeprazole 20 mg 01/27/21 06:30 01/27/21 05:43 Omeprazole 20 Mg Capsule.Dr PO 20 mg DAILY@0630 [facility] Administration Ondansetron HCl 4 mg 01/25/21 14:51 Ondansetron Hcl 4 Mg/2 Ml Vial IVPUSH Q8H PRN Nausea and Vomiting Oxycodone HCl 5 mg 01/25/21 14:51 01/27/21 12:43 Oxycodone Hcl Immed Release 5 Mg Tablet PO 5 mg Q4H PRN Administration Pain, Moderate (Pain Scale 4-6 Oxycodone HCl 10 mg 01/25/21 14:51 01/27/21 08:31 Oxycodone Hcl Er 10 Mg Tab.Er.12h PO 10 mg BID PRN Administration Pain, Severe (Pain Scale 7-10) Pharmacy Consult 1 each 01/25/21 10:27 Consult Rx Perform Med Rec MISCELLANE ONCE PRN Consult order Sodium Chloride 3 ml 01/25/21 16:00 01/27/21 07:56 0.9 % Sodium Chloride Flush 3 Ml Syringe IVFLUSH 3 ml QSHIFT [facility] Administration Labs CBC & Chem 7: 01/27/21 06:07 01/27/21 06:07 Labs: Laboratory Results - last 24 hr 01/27/21 01/27/21 06:07 06:07 WBC 14.4 H RBC 4.12 L Hgb 8.7 L Hct 30.5 L MCV 74.0 L MCH 21.1 L MCHC 28.5 L RDW 27.1 H Plt Count 423 H MPV 10.2 Immature Gran % (Auto) 0.6 H Neut % (Auto) 88.7 H Lymph % (Auto) 3.3 L [place] % (Auto) 7.3 Eos % (Auto) 0.0 Baso % (Auto) 0.1 Lymph # (Auto) 0.5 L [place] # (Auto) 1.1 Eos # (Auto) 0.0 Baso # (Auto) 0.0 Abs Immat Gran (auto) 0.09 H Absolute Neuts (auto) 12.8 H Absolute Nucleated RBC 0.000 Nucleated RBC % (auto) 0.0 Sodium 137 Potassium 4.6 Chloride 103 Carbon Dioxide 25 Anion Gap 14 BUN 14 Creatinine 0.69 Estim Creat Clear Calc 124.2 Estimated GFR > 60 Random Glucose 151 H D Calcium 8.4 Microbiology Microbiology Results: Microbiology 01/26/21 05:47 Blood Culture - Preliminary Blood - Venous No growth after 24 hours. 01/26/21 05:50 Blood Culture - Preliminary Blood - Venous No growth after 24 hours. Quality Stroke Does the patient have a stroke diagnosis?: No VTE Prior VTE?: No VTE Risk Level:: Surgical - high VTE Device Contraindication: N/A - Device Ordered VTE Drug Contraindication: Treatment Not Indicated Assessment and Plan (1) Anemia: Status: Acute (2) Closed femur fracture: Status: Acute (3) Hodgkin lymphoma: Status: Acute (4) Val syndrome: Status: Acute (5) Hypothyroid: Status: Acute Assessment and Plan: 60 years old male with PMH which can inform CHF, aortic stenosis post AVR, chronic anemia among others who presented to the hospital after sustaining a mechanical fall and found to hip fracture. Isolated fever / leukocytosis no definitive source found, blood cultures x2 negative in last 24 hours, UA showed no bacteria, chest x-ray showed atelectasis and pleural effusion similar to prior study W PC normalized yesterday trended back to 14,000 this morning likely reactive with no recurrent fevers, no bandemia Continue IV rocephin, follow blood cultures next 24-48 hours Anemia, chronic no acute drop in hematocrit had recent GI bleed - had some benign polpys on colonoscopy -- his eliquis was discontinued Patient seen by Dr. Leal and he recommend to use anticoagulation as appropriate postprocedure, patient started on Lovenox as per Ortho will follow CBC if noted to have drop in hematocrit will consult Gastroenterology patient is scheduled to undergo capsule study as outpatient monitor h/h transfuse to keep hematocrit around 30 as per cardio recommendation Chronic HFpEF Will discontinue IV fluid no fluid overload noted POD 1 s/p Left hip percutaneous pinning good pain control continue current pain medication continue PT and further treatment plan as per Ortho
--- NOTE | 2021-01-27 15:54 | HO.POSTANES ---
Post Anesthesia Evaluation Post Anesthesia Evaluation Vital Signs: Vital Signs Temp Pulse Resp BP Pulse Ox 01/27/21 11:09 98.0 F 87 18 103/59 L 97 01/27/21 08:47 82 104/60 98 01/27/21 07:38 97.6 F 82 18 104/60 98 01/27/21 04:22 18 Anesthesia: General Mental Status: Awake Pain Control: Satisfactory Nausea/Vomiting: None Hydration: Adequate Anesthesia-Related Issues: No Anes. Related Issues
[2021-01-27] MEDS: Furosemide 40 MG TABLET PO (18:14)
[2021-01-28] VITALS (8 sets, daily range): BP systolic 100–122; BP diastolic 56–65; PULSE 91–103; RESP 17–20; TEMP 36.6–37.4; O2SAT 95–100
[2021-01-28] MEDS: 0.9 % Sodium Chloride Flush 3 ML SYRINGE IVFLUSH ×4 (00:23→23:48)
[2021-01-28] MEDS: HYDROmorphone HCl 0.5 MG/0.5 ML SYRINGE 0.25 MG IVPUSH ×2 (04:17→23:44)
[2021-01-28] MEDS: cefTRIAXone sodium 1 GM in 0.9 % Sodium Chloride 50 ML IV (04:17)
[2021-01-28] MEDS: Omeprazole 20 MG CAPSULE.DR PO (05:16)
[2021-01-28] MEDS: Levothyroxine Sodium 175 MCG TABLET PO (05:16)
[2021-01-28 07:21] LABS: Basophils Percent Auto 0.2 % (0-2); Eosinophils Absolute Auto 0.1 X10*3/uL (0.0-0.4); Eosinophils Percent Auto 0.4 % (0-4); Hematocrit 28.1 % (42-52); Hemoglobin 8.1 g/dl (14.0-18.0); Imm Gran Abs Auto 0.14 X10*3/uL (0.00-0.03); Imm Gran Pct Auto 0.9 % (0.0-0.4); Lymphocytes Absolute Auto 0.6 X10*3/uL (1.2-4.9); Lymphocytes Percent Auto 3.9 % (20-40); MANUAL DIFF FLAG SCAN; Mean Corpuscular HGB Conc 28.8 g/dl (31.0-36.0); Mean Corpuscular Hemoglobin 21.3 pg (27.0-33.0); Mean Corpuscular Volume 73.9 fL (80-98); Mean Platelet Volume 10.4 fL (9.4-12.4); Monocytes Absolute Auto 1.7 X10*3/uL (0.1-1.2); Monocytes Percent Auto 10.5 % (2-11); NRBC Pct Auto 0.1 /100WBC (0.0-0.2); Neutrophils Absolute Auto 13.8 X10*3/uL (2.0-8.3); Neutrophils Percent Auto 84.1 % (45-73); Platelet Count 406 X10*3/uL (160-400); Red Cell Distribution Width 27.3 % (11.0-16.0); SCAN SMEAR FLAG 1; White Blood Count 16.4 X10*3/uL (4.8-10.8)
[2021-01-28 07:57] LABS: Anion Gap 13 (12-20); Blood Urea Nitrogen 13 mg/dL (9-16); Calcium 8.2 mg/dL (8.4-10.2); Carbon Dioxide 30 mmol/L (22-29); Chloride 101 mmol/L (96-108); Creatinine Clr Calc Pharmacy 129.9; Estimated Glomerular Filt Rate > 60; Glucose Random 93 mg/dL (60-115); Potassium 4.1 mmol/L (3.3-5.1); Sodium 140 mmol/L (135-145)
[2021-01-28 08:07] LABS: SLIDE REVIEW VERIFIED
[2021-01-28] MEDS: Docusate Sodium 100 MG CAPSULE PO ×2 (08:42→19:57)
[2021-01-28] MEDS: Furosemide 40 MG TABLET PO ×2 (08:42→17:52)
--- NOTE | 2021-01-28 08:59 | P.PNOP_ITS ---
Subjective Subjective Date of Service: 01/28/21 Principal diagnosis: History of congestive heart failure. Interval history: Postop day 2 status post left hip percutaneous pinning No overnight events He was working with physical therapy yesterday states he did well but he was having some discomfort. Denies shortness of breath, chest pains or palpitations. Physical Exam Vital Signs: Vital Signs: Last Vital Signs Temp 97.8 F 01/28/21 07:00 Pulse 91 01/28/21 08:42 Resp 18 01/28/21 07:00 BP 104/63 01/28/21 08:42 Pulse Ox 96 01/28/21 08:42 Body Mass Index 23.4 Const: General: cooperative, healthy appearing and no acute distress Resp: Effort & Inspection: normal respiratory effort and able to speak in complete sentences Cardio: Rate: regular rate Peripheral pulses: Peripheral pulses 2+ throughout GI: Palpation (GI): Soft to palpation Skin: General skin exam: no rashes or lesions noted Extrem: Other: incision clean dry and intact. No erythema or effusion. Calf supple nontender. Neurovascularly intact. Progress Note: A&P Assessment and plan (1) Closed femur fracture: Status: Acute Assessment and Plan: * Continue pain mgmnt * cont lovenox for dvt ppx * cont PT/OT * Dispo planning-Pending rehab auth and PT Fall Risk Details Current Medications: Current Medications Generic Name Dose Route Start Last Admin Trade Name Freq PRN Reason Stop Dose Admin Acetaminophen 325 mg 01/26/21 15:50 01/27/21 08:31 Acetaminophen 325 Mg Tablet PO 325 mg Q4H PRN Administration Pain, Mild (Pain Scale 1-3) Docusate Sodium 100 mg 01/25/21 21:00 01/28/21 08:42 Docusate Sodium 100 Mg Capsule PO 100 mg BID JERRELL Administration Enoxaparin Sodium 40 mg 01/27/21 13:00 01/27/21 12:43 Enoxaparin Sodium 40 Mg/0.4 Ml Syringe SUBCUT 40 mg Q24H JERRELL Administration Furosemide 40 mg 01/27/21 18:00 01/28/21 08:42 Furosemide 40 Mg Tablet PO 40 mg BID@0900,1800 JERRELL Administration Protocol Hydromorphone HCl 0.25 mg 01/27/21 16:18 01/28/21 04:17 Hydromorphone Hcl 0.5 Mg/0.5 Ml Syringe IVPUSH 0.25 mg Q4H PRN Administration Pain, Severe (Pain Scale 7-10) Ceftriaxone Sodium 1 gm/ 50 mls @ 100 mls/hr 01/26/21 05:00 01/28/21 04:44 Sodium Chloride IV Infused Q24H JERRELL Infusion Levothyroxine Sodium 175 mcg 01/26/21 06:00 01/28/21 05:16 Levothyroxine Sodium 175 Mcg Tablet PO 175 mcg DAILY@0600 JERRELL Administration Naloxone HCl 0.2 mg 01/25/21 14:51 Naloxone Hcl 0.4 Mg/Ml Vial IVPUSH Q2M PRN Excessive sedation or RR < 8 Omeprazole 20 mg 01/27/21 06:30 01/28/21 05:16 Omeprazole 20 Mg Capsule.Dr PO 20 mg DAILY@0630 JERRELL Administration Ondansetron HCl 4 mg 01/25/21 14:51 Ondansetron Hcl 4 Mg/2 Ml Vial IVPUSH Q8H PRN Nausea and Vomiting Oxycodone HCl 5 mg 01/25/21 14:51 01/27/21 12:43 Oxycodone Hcl Immed Release 5 Mg Tablet PO 5 mg Q4H PRN Administration Pain, Moderate (Pain Scale 4-6 Oxycodone HCl 10 mg 01/25/21 14:51 01/27/21 08:31 Oxycodone Hcl Er 10 Mg Tab.Er.12h PO 10 mg BID PRN Administration Pain, Severe (Pain Scale 7-10) Pharmacy Consult 1 each 01/25/21 10:27 Consult Rx Perform Med Rec MISCELLANE ONCE PRN Consult order Sodium Chloride 3 ml 01/25/21 16:00 01/28/21 08:42 0.9 % Sodium Chloride Flush 3 Ml Syringe IVFLUSH 3 ml QSHIFT JERRELL Administration Time Spent With Patient Time: Total time spent is greater than 50% in coordination of care (as document ed) at patient's floor/unit and/or counseling patient: Time with patient: less than 15 minutes Procedures Date of Service Date of Service: 01/28/21 Quality Stroke Does the patient have a stroke diagnosis?: No VTE Prior VTE?: No VTE Risk Level:: Surgical - high VTE Device Contraindication: N/A - Device Ordered VTE Drug Contraindication: Treatment Not Indicated
--- NOTE | 2021-01-28 09:04 | HO.PM.IMPN ---
Subjective Subjective Date of Service: 01/28/21 Interval History: anmeia Review of Systems Still has some if soreness otherwise, denies any chest pain or shortness of breath or abdominal pain or fever or chills or cough or phlegm. Physical Exam Vital Signs: Vital Signs: Last Vital Signs Temp 97.8 F 01/28/21 07:00 Pulse 91 01/28/21 08:42 Resp 18 01/28/21 07:00 BP 104/63 01/28/21 08:42 Pulse Ox 96 01/28/21 08:42 Body Mass Index 23.4 Physical exam Constitutional: no acute distress Cardiovascular - regular rate and rhythm, S1-S2 Lungs - normal respiratory effort, clear to auscultation bilaterally, no wheezing Abdomen - soft, non-tender, no rebound or guarding Extremities - no edema bilaterally Neuro - awake and alert, no focal deficits Skin no rash Objective Data Current Medications Generic Name Dose Route Start Last Admin Trade Name Freq PRN Reason Stop Dose Admin Acetaminophen 325 mg 01/26/21 15:50 01/27/21 08:31 Acetaminophen 325 Mg Tablet PO 325 mg Q4H PRN Administration Pain, Mild (Pain Scale 1-3) Docusate Sodium 100 mg 01/25/21 21:00 01/28/21 08:42 Docusate Sodium 100 Mg Capsule PO 100 mg BID JERRELL Administration Enoxaparin Sodium 40 mg 01/27/21 13:00 01/27/21 12:43 Enoxaparin Sodium 40 Mg/0.4 Ml Syringe SUBCUT 40 mg Q24H JERRELL Administration Furosemide 40 mg 01/27/21 18:00 01/28/21 08:42 Furosemide 40 Mg Tablet PO 40 mg BID@0900,1800 JERRELL Administration Protocol Hydromorphone HCl 0.25 mg 01/27/21 16:18 01/28/21 04:17 Hydromorphone Hcl 0.5 Mg/0.5 Ml Syringe IVPUSH 0.25 mg Q4H PRN Administration Pain, Severe (Pain Scale 7-10) Ceftriaxone Sodium 1 gm/ 50 mls @ 100 mls/hr 01/26/21 05:00 01/28/21 04:44 Sodium Chloride IV Infused Q24H JERRELL Infusion Levothyroxine Sodium 175 mcg 01/26/21 06:00 01/28/21 05:16 Levothyroxine Sodium 175 Mcg Tablet PO 175 mcg DAILY@0600 [facility] Administration Naloxone HCl 0.2 mg 01/25/21 14:51 Naloxone Hcl 0.4 Mg/Ml Vial IVPUSH Q2M PRN Excessive sedation or RR < 8 Omeprazole 20 mg 01/27/21 06:30 01/28/21 05:16 Omeprazole 20 Mg Capsule. PO 20 mg DAILY@0630 [facility] Administration Ondansetron HCl 4 mg 01/25/21 14:51 Ondansetron Hcl 4 Mg/2 Ml Vial IVPUSH Q8H PRN Nausea and Vomiting Oxycodone HCl 5 mg 01/25/21 14:51 01/27/21 12:43 Oxycodone Hcl Immed Release 5 Mg Tablet PO 5 mg Q4H PRN Administration Pain, Moderate (Pain Scale 4-6 Oxycodone HCl 10 mg 01/25/21 14:51 01/27/21 08:31 Oxycodone Hcl Er 10 Mg Tab.Er.12h PO 10 mg BID PRN Administration Pain, Severe (Pain Scale 7-10) Pharmacy Consult 1 each 01/25/21 10:27 Consult Rx Perform Med Rec MISCELLANE ONCE PRN Consult order Sodium Chloride 3 ml 01/25/21 16:00 01/28/21 08:42 0.9 % Sodium Chloride Flush 3 Ml Syringe IVFLUSH 3 ml QSHIFT [facility] Administration Labs CBC & Chem 7: 01/28/21 06:05 01/28/21 06:05 Labs: Laboratory Results - last 24 hr 01/28/21 01/28/21 06:05 06:05 WBC 16.4 H RBC 3.80 L Hgb 8.1 L Hct 28.1 L MCV 73.9 L MCH 21.3 L MCHC 28.8 L RDW 27.3 H Plt Count 406 H MPV 10.4 Immature Gran % (Auto) 0.9 H Neut % (Auto) 84.1 H Lymph % (Auto) 3.9 L [place] % (Auto) 10.5 Eos % (Auto) 0.4 Baso % (Auto) 0.2 Lymph # (Auto) 0.6 L [place] # (Auto) 1.7 H Eos # (Auto) 0.1 Baso # (Auto) 0.0 Abs Immat Gran (auto) 0.14 H Absolute Neuts (auto) 13.8 H Absolute Nucleated RBC 0.020 H Nucleated RBC % (auto) 0.1 Smear Tech's Comments VERIFIED Sodium 140 Potassium 4.1 Chloride 101 Carbon Dioxide 30 H Anion Gap 13 BUN 13 Creatinine 0.66 Estim Creat Clear Calc 129.9 Estimated GFR > 60 Random Glucose 93 D Calcium 8.2 L Microbiology Microbiology Results: Microbiology 01/26/21 05:47 Blood Culture - Preliminary Blood - Venous No growth after 48 hours. 01/26/21 05:50 Blood Culture - Preliminary Blood - Venous No growth after 48 hours. Quality Stroke Does the patient have a stroke diagnosis?: No VTE Prior VTE?: No VTE Risk Level:: Surgical - high VTE Device Contraindication: N/A - Device Ordered VTE Drug Contraindication: Treatment Not Indicated Assessment and Plan (1) Anemia: Status: Acute Assessment and Plan: 60 years old male with PMH which can inform CHF, aortic stenosis post AVR, chronic anemia among others who presented to the hospital after sustaining a mechanical fall and found to hip fracture. 1.Isolated fever / leukocytosis no definitive source found, blood cultures x2 negative in last 24 hours, UA showed no bacteria, chest x-ray showed atelectasis and pleural effusion similar to prior study W PC normalized yesterday trended back to 14-now 16's range this morning likely reactive with no recurrent fevers, no bandemia Continue IV rocephin, follow blood culturesneg @24hr id matthew 2.Anemia, chronic no acute drop in hematocrit had recent GI bleed - had some benign polpys on colonoscopy -- his eliquis was discontinued Patient seen by Dr. Leal and he recommend to use anticoagulation as appropriate postprocedure, patient started on Lovenox as per Ortho will follow CBC if noted to have drop in hematocrit will consult Gastroenterology patient is scheduled to undergo capsule study as outpatient monitor h/h is runnning between 27-30 range ,hct today is 28, patient currently asymptomatic, consider transfusing if further trending down 3.Chronic HFpEF: off IV fluid no fluid overload noted POD 1 s/p Left hip percutaneous pinning good pain control continue current pain medication continue PT and further treatment plan as per Ortho
[2021-01-28] MEDS: Acetaminophen 325 MG TABLET PO (10:25)
[2021-01-28] MEDS: oxyCODONE HCl Immed Release 5 MG TABLET PO ×2 (10:26→21:04)
[2021-01-28] MEDS: Enoxaparin Sodium 40 MG/0.4 ML SYRINGE SUBCUT (15:47)
--- NOTE | 2021-01-28 15:58 | MHC.CM.PN ---
PT LIKELY TO DC MONDAY, 01/29. PT REPORTS HIS PREFERRED STR FACILITY IS [facility]. REFERRAL MADE, AWAITING RESPONSE.
[2021-01-29] VITALS (11 sets, daily range): BP systolic 93–113; BP diastolic 52–65; PULSE 97–114; RESP 18–22; TEMP 36.6–38.3; O2SAT 94–100
[2021-01-29] MEDS: cefTRIAXone sodium 1 GM in 0.9 % Sodium Chloride 50 ML IV (06:15)
[2021-01-29] MEDS: Omeprazole 20 MG CAPSULE.DR PO (06:15)
[2021-01-29] MEDS: Levothyroxine Sodium 175 MCG TABLET PO (06:15)
[2021-01-29 08:05] LABS: Hematocrit 28.4 % (42-52); Hemoglobin 8.4 g/dl (14.0-18.0)
[2021-01-29 08:07] LABS: Anion Gap 13 (12-20); Blood Urea Nitrogen 14 mg/dL (9-16); Calcium 8.5 mg/dL (8.4-10.2); Carbon Dioxide 30 mmol/L (22-29); Chloride 101 mmol/L (96-108); Creatinine Clr Calc Pharmacy 122.5; Estimated Glomerular Filt Rate > 60; Glucose Random 88 mg/dL (60-115); Sodium 140 mmol/L (135-145)
[2021-01-29] MEDS: Docusate Sodium 100 MG CAPSULE PO ×2 (08:26→21:39)
[2021-01-29] MEDS: Furosemide 40 MG TABLET PO ×2 (08:26→17:51)
[2021-01-29] MEDS: 0.9 % Sodium Chloride Flush 3 ML SYRINGE IVFLUSH ×3 (08:26→19:41)
--- NOTE | 2021-01-29 11:13 | PM.PNORT ---
Progress Note: A&P Assessment and plan (1) Closed femur fracture: Status: Acute Assessment and Plan: Continue pain management Continue DVT prophylaxis Continue physical therapy and occupational therapy Monitor H&H -- hematocrit 28.4, will transfuse 1 unit of packed red blood cells followed by 20 mg of Lasix Dispo pending med clearance and rehab placement (2) Anemia: Status: Acute Fall Risk Details Current Medications: Current Medications Generic Name Dose Route Start Last Admin Trade Name Freq PRN Reason Stop Dose Admin Acetaminophen 325 mg 01/26/21 15:50 01/28/21 10:25 Acetaminophen 325 Mg Tablet PO 325 mg Q4H PRN Administration Pain, Mild (Pain Scale 1-3) Docusate Sodium 100 mg 01/25/21 21:00 01/29/21 08:26 Docusate Sodium 100 Mg Capsule PO 100 mg BID JERRELL Administration Enoxaparin Sodium 40 mg 01/27/21 13:00 01/28/21 15:47 Enoxaparin Sodium 40 Mg/0.4 Ml Syringe SUBCUT 40 mg Q24H JERRELL Administration Furosemide 40 mg 01/27/21 18:00 01/29/21 08:26 Furosemide 40 Mg Tablet PO 40 mg BID@0900,1800 JERRELL Administration Protocol Hydromorphone HCl 0.25 mg 01/27/21 16:18 01/28/21 23:44 Hydromorphone Hcl 0.5 Mg/0.5 Ml Syringe IVPUSH 0.25 mg Q4H PRN Administration Pain, Severe (Pain Scale 7-10) Ceftriaxone Sodium 1 gm/ 50 mls @ 100 mls/hr 01/26/21 05:00 01/29/21 06:48 Sodium Chloride IV Infused Q24H JERRELL Infusion Levothyroxine Sodium 175 mcg 01/26/21 06:00 01/29/21 06:15 Levothyroxine Sodium 175 Mcg Tablet PO 175 mcg DAILY@0600 JERRELL Administration Naloxone HCl 0.2 mg 01/25/21 14:51 Naloxone Hcl 0.4 Mg/Ml Vial IVPUSH Q2M PRN Excessive sedation or RR < 8 Omeprazole 20 mg 01/27/21 06:30 01/29/21 06:15 Omeprazole 20 Mg Capsule.Dr PO 20 mg DAILY@0630 JERRELL Administration Ondansetron HCl 4 mg 01/25/21 14:51 Ondansetron Hcl 4 Mg/2 Ml Vial IVPUSH Q8H PRN Nausea and Vomiting Oxycodone HCl 5 mg 01/25/21 14:51 01/28/21 21:04 Oxycodone Hcl Immed Release 5 Mg Tablet PO 5 mg Q4H PRN Administration Pain, Moderate (Pain Scale 4-6 Oxycodone HCl 10 mg 01/25/21 14:51 01/27/21 08:31 Oxycodone Hcl Er 10 Mg Tab.Er.12h PO 10 mg BID PRN Administration Pain, Severe (Pain Scale 7-10) Pharmacy Consult 1 each 01/25/21 10:27 Consult Rx Perform Med Rec MISCELLANE ONCE PRN Consult order Sodium Chloride 3 ml 01/25/21 16:00 01/29/21 08:26 0.9 % Sodium Chloride Flush 3 Ml Syringe IVFLUSH 3 ml QSHIFT JERRELL Administration Time Spent With Patient Time: Total time spent is greater than 50% in coordination of care (as documented) at patient's floor/unit and/or counseling patient: Time with patient: less than 15 minutes Subjective Subjective Date of Service: 01/29/21 Principal diagnosis: History of congestive heart failure. Interval history: Postop day 3 status post left hip percutaneous pinning No overnight events He has been out of bed working with physical therapy Minimal pain No chest pain shortness of breath or palpitations. Physical Exam Vital Signs: Vital Signs: Last Vital Signs Temp 99.2 F 01/29/21 07:42 Pulse 101 H 01/29/21 10:34 Resp 18 01/29/21 07:42 BP 98/58 L 01/29/21 10:34 Pulse Ox 95 01/29/21 10:34 Body Mass Index 23.4 Const: General: cooperative, healthy appearing and no acute distress Resp: Effort & Inspection: normal respiratory effort and able to speak in complete sentences Cardio: Rate: regular rate Peripheral pulses: Peripheral pulses 2+ throughout GI: Palpation (GI): Soft to palpation Skin: General skin exam: no rashes or lesions noted Extrem: Other: Left hip bandage clean dry and intact. No erythema or swelling. Procedures Date of Service Date of Service: 01/29/21 Quality Stroke Does the patient have a stroke diagnosis?: No VTE Prior VTE?: No VTE Risk Level:: Surgical - high VTE Device Contraindication: N/A - Device Ordered VTE Drug Contraindication: Treatment Not Indicated
--- NOTE | 2021-01-29 11:19 | MHC.CM.PN ---
Per Patient's request, CM spoke with Patient's (he wanted to be sure he has named the correct SNF as his first choice; he wants the SNF where his Neighbor works as a Nurse). CM has confirmed that the [facility] is indeed first choice and [facility] is the second choice. CM will continue to follow. Per [facility], Workman's Comp has denied the Claim and CM has requested that they initiate BCBS Authorization. CM will follow.
[2021-01-29] MEDS: Furosemide 20 MG TABLET PO (14:33)
[2021-01-29] MEDS: Enoxaparin Sodium 40 MG/0.4 ML SYRINGE SUBCUT (14:34)
--- NOTE | 2021-01-29 15:13 | MHC.CM.PN ---
PLAN IS NOW CURRENTLY AWAITING ID CONSULT CASE MANAGEMENT AWAITING FOR [facility] TO OBTAIN INSURANCE AUTHORIZATION TO ADMIT.
--- NOTE | 2021-01-29 15:20 | W.PM.IDCN ---
History of Present Illness Data of Consult Service Date: 01/29/21 Requesting physician: Rashaun Paula Primary Care Provider: Yesica Kay MD HPI Reason for consult: leukocytosis He presents to hospital after mechanical fall He had left hip pain and was found to have left distal femur fracture He has had episode of fever and WBC 16,000 He has no cough or bacteremia Review of Systems Review of Systems: Yes Unobtainable due to mental condition PMFSH Past Medical History Medical History Aortic stenosis, severe Cardiac resynchronization therapy defibrillator ([employer]-D) in place Complete heart block HFrEF (heart failure with reduced ejection fraction) Hodgkins lymphoma Hypocalcemia Hypotension (arterial) Hypothyroid LBBB (left bundle branch block) NICM (nonischemic cardiomyopathy) Pacemaker Pulmonary embolism Recurrent pleural effusion on right Shortness of breath Family History Family History Father No problems noted. Mother No problems noted. Family history: reviewed and not pertinent Surgical History Surgical History H/O splenectomy History of appendectomy History of cardiac pacemaker S/P TAVR (transcatheter aortic valve replacement) (~10/29/20) Social History Social History Household Members: Family Housing: House Do you presently have visiting nurse or other home services: No Alcohol intake: never Patient Tobacco Use Status: Never used Tobacco Second Hand Smoke Exposure: No Advance Directives Date on File: 01/25/21 service: Yes Current occupational status: employed Meds Allergies Allergy/AdvReac Type Severity Reaction Status Date / Time No Known Allergies Allergy Verified 12/21/20 14:29 [No Known Allergies*] Active Medications: Current Medications Generic Name Dose Route Start Last Admin Trade Name Freq PRN Reason Stop Dose Admin Acetaminophen 325 mg 01/26/21 15:50 01/28/21 10:25 Acetaminophen 325 Mg Tablet PO 325 mg Q4H PRN Administration Pain, Mild (Pain Scale 1-3) Docusate Sodium 100 mg 01/25/21 21:00 01/29/21 08:26 Docusate Sodium 100 Mg Capsule PO 100 mg BID JERRELL Administration Enoxaparin Sodium 40 mg 01/27/21 13:00 01/29/21 14:34 Enoxaparin Sodium 40 Mg/0.4 Ml Syringe SUBCUT 40 mg Q24H JERRELL Administration Furosemide 40 mg 01/27/21 18:00 01/29/21 08:26 Furosemide 40 Mg Tablet PO 40 mg BID@0900,1800 [facility] Administration Protocol Hydromorphone HCl 0.25 mg 01/27/21 16:18 01/28/21 23:44 Hydromorphone Hcl 0.5 Mg/0.5 Ml Syringe IVPUSH 0.25 mg Q4H PRN Administration Pain, Severe (Pain Scale 7-10) Levothyroxine Sodium 175 mcg 01/26/21 06:00 01/29/21 06:15 Levothyroxine Sodium 175 Mcg Tablet PO 175 mcg DAILY@0600 [facility] Administration Naloxone HCl 0.2 mg 01/25/21 14:51 Naloxone Hcl 0.4 Mg/Ml Vial IVPUSH Q2M PRN Excessive sedation or RR < 8 Omeprazole 20 mg 01/27/21 06:30 01/29/21 06:15 Omeprazole 20 Mg Capsule.Dr PO 20 mg DAILY@0630 [facility] Administration Ondansetron HCl 4 mg 01/25/21 14:51 Ondansetron Hcl 4 Mg/2 Ml Vial IVPUSH Q8H PRN Nausea and Vomiting Oxycodone HCl 5 mg 01/25/21 14:51 01/28/21 21:04 Oxycodone Hcl Immed Release 5 Mg Tablet PO 5 mg Q4H PRN Administration Pain, Moderate (Pain Scale 4-6 Oxycodone HCl 10 mg 01/25/21 14:51 01/27/21 08:31 Oxycodone Hcl Er 10 Mg Tab.Er.12h PO 10 mg BID PRN Administration Pain, Severe (Pain Scale 7-10) Pharmacy Consult 1 each 01/25/21 10:27 Consult Rx Perform Med Rec MISCELLANE ONCE PRN Consult order Sodium Chloride 3 ml 01/25/21 16:00 01/29/21 14:34 0.9 % Sodium Chloride Flush 3 Ml Syringe IVFLUSH 3 ml QSHIFT [facility] Administration Home Medications Medication Instructions Recorded Confirmed Last Taken Type furosemide 40 mg tablet 40 mg PO BID tab 12/21/20 01/25/21 01/14/21 06:00 History Physical Exam Vital Signs: Vital Signs: Last Vital Signs Temp 99.7 F 01/29/21 15:09 Pulse 114 H 01/29/21 15:09 Resp 20 01/29/21 15:09 BP 112/55 L 01/29/21 15:09 Pulse Ox 96 01/29/21 15:09 Body Mass Index 23.4 Const: General: cooperative HENMT: Head: Yes normal to inspection Mouth: Normal oral and palatal mucosa present Resp: Effort & Inspection: normal respiratory effort Cardio: Rate: regular rate Rhythm: regular rhythm GI: Palpation (GI): Soft to palpation and not firm Skin: General skin exam: no rashes or lesions noted Results Labs CBC & Chem 7: 01/29/21 06:33 01/29/21 06:33 Labs: Short CBC 01/29/21 Range/Units 06:33 Hgb 8.4 L (14.0-18.0) g/dl Hct 28.4 L (42-52) % BMP 01/29/21 06:33 Sodium 140 Potassium 4.0 Chloride 101 Carbon Dioxide 30 H BUN 14 Creatinine 0.70 Calcium 8.5 Microbiology Microbiology Results: Microbiology 01/26/21 05:47 Blood - Venous Blood Culture - Preliminary No growth after 48 hours. 01/26/21 05:50 Blood - Venous Blood Culture - Preliminary No growth after 48 hours. Assessment and Plan (1) Leukocytosis: Status: Acute He has leukocytosis with fever He has no signs of infection at this time with negative blood cultures and urine He has no pneumonia The fever and leukocytosis is likely related to fracture acutely but follow for changes,particularly start Zosyn if becomes hypoxic as developing pneumonia risk (2) Closed femur fracture: Qualifiers: Encounter type: initial encounter Status: Acute
--- NOTE | 2021-01-29 15:32 | P.DS_ITS ---
DS: Providers Provider Date of Service: 01/29/21 Date of admission: 01/25/21 12:38 Primary care physician: Yesica Kay MD Consults: 01/25/21 12:38 Consult to Cardiology Routine Consulting Provider: Jairo Valdez Reason for consultation: surgical medical clearance 01/25/21 14:48 Consult to Medicine Routine Consulting Provider: Jhony Erickson Reason for consultation: medical management 01/26/21 11:50 Consult to Gastroenterology Routine Consulting Provider: Jefe Portillo Reason for consultation: Recent GI bleed, will need dvt pptx post hip repair 01/28/21 09:14 Consult to Infectious Diseases Routine Consulting Provider: Gabriela Canada Reason for consultation: fuo/leucocytosis Has provider been notified: No DS: Diagnosis Discharge Diagnosis (1) Leukocytosis: Status: Acute (2) Closed femur fracture: Status: Acute DS: Medications Discharge Medications Home Medications: Home Medications Medication Instructions Recorded Confirmed furosemide 40 mg tablet 40 mg PO BID tab 12/21/20 01/25/21 Previous Rx's Medication Instructions Recorded aspirin 81 mg tablet,delayed 81 mg PO DAILY #90 tab 07/09/20 release eplerenone 25 mg tablet 25 mg PO DAILY #90 tab 07/09/20 omeprazole 20 mg PO DAILY #30 cap 01/16/21 levothyroxine 175 mcg tablet 175 mcg PO DAILY 90 Days #90 tab 01/21/21 acetaminophen 325 mg PO Q4H PRN 30 Days #240 tab 01/29/21 docusate sodium 100 mg PO BID 30 Days #60 cap 01/29/21 enoxaparin 40 mg SUBCUT Q24H 42 Days #16.8 ml 01/29/21 oxycodone 5 mg PO Q4H PRN 7 Days #42 tab 01/29/21 DS: Summary Hospital Course Hospital Course: Enrique Monahan is a 60 year old male who presented to the emergency department after sustaining a fall while getting out of his car. He was in the parking lot of [facility] when he turned and took a step and fell. He landed on the left side. He was unable to get up due to pain. He called security who assisted him to the emergency department where he was evaluated. X-rays of the left hip demonstrated impacted subcapital fracture of the femur. Orthopedics was consulted and the plan was to admit him to the orthopedic service and plan for surgical intervention. The patient underwent a successful left hip percutaneous pinning, was transferred to PACU and then to the floor to recover. During their stay, their vitals were stable. POD 1 he was started on Lovenox for DVT ppx, they also received physical therapy and occupational therapy services twice a day. Postop day 3 his hematocrit dropped to 28.4 therefore he was transfused with 1 unit of packed red blood cells followed by 20 mg of IV Lasix. Prior to discharge, dressing remained clean dry and intact the plan is to be transferred to a short- term rehab. Time Spent with Patient Time attestation: Total time spent providing and/or coordinating discharge services: Discharge coordination time: Less than 30 minutes Quality: Stroke Does the patient have a stroke diagnosis?: No Physical Exam Vital Signs: Vital Signs: Last Vital Signs Temp 99.7 F 01/29/21 15:09 Pulse 114 H 01/29/21 15:09 Resp 20 01/29/21 15:09 BP 112/55 L 01/29/21 15:09 Pulse Ox 96 01/29/21 15:09 Body Mass Index 23.4 Const: General: cooperative, healthy appearing and no acute distress Resp: Effort & Inspection: normal respiratory effort and able to speak in complete sentences Cardio: Rate: regular rate Peripheral pulses: Peripheral pulses 2+ throughout GI: Palpation (GI): Soft to palpation Skin: General skin exam: no rashes or lesions noted Extrem: Other: Left hip incision clean dry and intact. There is no erythema or swelling. He has sensation intact. DS: Data Data Completed and Pending Completed studies during hospitalization [Text1]: Procedures Excision of Stomach, Pylorus, Via Natural or Artificial Opening Endoscopic, Diagnostic (01/13/21) Inspection of Lower Intestinal Tract, Via Natural or Artificial Opening Endoscopic (01/13/21) Transfusion of Nonautologous Red Blood Cells into Peripheral Vein, Percutaneous Approach (01/13/21) Labs on day of discharge: Laboratory Results - last 24 hr 01/29/21 01/29/21 01/29/21 06:33 06:33 09:10 Hgb 8.4 L Hct 28.4 L Sodium 140 Potassium 4.0 Chloride 101 Carbon Dioxide 30 H Anion Gap 13 BUN 14 Creatinine 0.70 Estim Creat Clear Calc 122.5 Estimated GFR > 60 Random Glucose 88 Calcium 8.5 Blood Type A Positive Antibody Screen NEGATIVE Crossmatch See Detail Preliminary micro results at discharge 01/26/21 05:47 Blood Culture - Preliminary Blood - Venous No growth after 48 hours. 01/26/21 05:50 Blood Culture - Preliminary Blood - Venous No growth after 48 hours. Discharge Plan Discharge Patient Disposition: er SNF Discharge Diagnosis: s/p Left hip surgery Referrals: Cristal Anderson PA-C [Physician Family Independence Case Manager] - 2 Weeks (02/08/2021 @ 1:45.) Yesica Burden MD [Primary Care Provider] - 1 Week Discharge Medications: New acetaminophen 325 mg Tablet 325 mg PO Q4H PRN (Reason: Pain, Mild (Pain Scale 1-3)) 30 Days Qty: 240 RF: 0 docusate sodium 100 mg Capsule 100 mg PO BID 30 Days Qty: 60 RF: 0 oxycodone 5 mg Tablet 5 mg PO Q4H PRN (Reason: Pain, Moderate (Pain Scale 4-6) 7 Days Qty: 42 RF: 0 enoxaparin 40 mg/0.4 mL Syringe 40 mg subcut Q24H 42 Days Qty: 16.8 RF: 0 Continued levothyroxine 175 mcg tablet 175 mcg PO DAILY 90 Days Qty: 90 RF: 1 omeprazole 20 mg capsule,delayed release(DR/EC) 20 mg PO DAILY Qty: 30 RF: 0 eplerenone 25 mg tablet 25 mg PO DAILY Qty: 90 RF: 4 aspirin 81 mg tablet,delayed release (DR/EC) 81 mg PO DAILY Qty: 90 RF: 4 furosemide 40 mg tablet 40 mg PO BID RF: 0 Discharge Orders: Discharge Order (Routine); Ordered 01/30/21 Ordered By: Jarret Chacon Diet: regular diet Activity on Discharge: Use cane or walker Stand Alone Forms: Patient Portal Discharge page Care Plan Goals: Restore function of joint Health Concerns: none Plan of Treatment: Physical Therapy Pain management DVT prophylaxis Assessment: * Physical Therapy for Hip fixation: gait training, ROM, strength * Limit stair climbing * No showering, no tub bath-keep dressing clean, dry and intact * No driving x6 weeks * Continue Lovenox once a day x 4 weeks * Follow up with [facility] in 2 weeks
--- NOTE | 2021-01-29 15:48 | MHC.CM.PN ---
[facility] AWARE THAT PATIENT WILL NOT NEED ANTIBIOTICS UPON DISCHARGE. CASE MANAGEMENT AWAITING AUTHORIZATION TO ADMIT.
[2021-01-29 16:04] LABS: COVID-19 Test Negative (Negative)
[2021-01-29] MEDS: oxyCODONE HCl ER 10 MG TAB.ER.12H PO (17:57)
--- NOTE | 2021-01-29 18:45 | P.PNIM_ITS ---
Subjective Subjective Date of Service: 01/29/21 Interval History: anemia , leucocytosis Review of Systems Denies any chest pain or shortness of breath or cough or phlegm . Denies any urinary complaints. Physical Exam Vital Signs: Vital Signs: Last Vital Signs Temp 99.7 F 01/29/21 15:09 Pulse 114 H 01/29/21 15:09 Resp 20 01/29/21 15:09 BP 112/55 L 01/29/21 15:09 Pulse Ox 96 01/29/21 15:09 Body Mass Index 23.4 Physical exam: Cvs: rrr, [id number] , no murmur res: clear to auscultation ,no rhonchii or wheezing abd: no rebound or guarding ,nt, bs present. ext pulses present , no cyanosis neuro: axo3 , nonfocal. Objective Data Current Medications Generic Name Dose Route Start Last Admin Trade Name Freq PRN Reason Stop Dose Admin Acetaminophen 325 mg 01/26/21 15:50 01/28/21 10:25 Acetaminophen 325 Mg Tablet PO 325 mg Q4H PRN Administration Pain, Mild (Pain Scale 1-3) Docusate Sodium 100 mg 01/25/21 21:00 01/29/21 08:26 Docusate Sodium 100 Mg Capsule PO 100 mg BID JERRELL Administration Enoxaparin Sodium 40 mg 01/27/21 13:00 01/29/21 14:34 Enoxaparin Sodium 40 Mg/0.4 Ml Syringe SUBCUT 40 mg Q24H JERRELL Administration Furosemide 40 mg 01/27/21 18:00 01/29/21 17:51 Furosemide 40 Mg Tablet PO 40 mg BID@0900,1800 JERRELL Administration Protocol Hydromorphone HCl 0.25 mg 01/27/21 16:18 01/28/21 23:44 Hydromorphone Hcl 0.5 Mg/0.5 Ml Syringe IVPUSH 0.25 mg Q4H PRN Administration Pain, Severe (Pain Scale 7-10) Levothyroxine Sodium 175 mcg 01/26/21 06:00 01/29/21 06:15 Levothyroxine Sodium 175 Mcg Tablet PO 175 mcg DAILY@0600 JERRELL Administration Naloxone HCl 0.2 mg 01/25/21 14:51 Naloxone Hcl 0.4 Mg/Ml Vial IVPUSH Q2M PRN Excessive sedation or RR < 8 Omeprazole 20 mg 01/27/21 06:30 01/29/21 06:15 Omeprazole 20 Mg Capsule. PO 20 mg DAILY@0630 [facility] Administration Ondansetron HCl 4 mg 01/25/21 14:51 Ondansetron Hcl 4 Mg/2 Ml Vial IVPUSH Q8H PRN Nausea and Vomiting Oxycodone HCl 5 mg 01/25/21 14:51 01/28/21 21:04 Oxycodone Hcl Immed Release 5 Mg Tablet PO 5 mg Q4H PRN Administration Pain, Moderate (Pain Scale 4-6 Oxycodone HCl 10 mg 01/25/21 14:51 01/29/21 17:57 Oxycodone Hcl Er 10 Mg Tab.Er.12h PO 10 mg BID PRN Administration Pain, Severe (Pain Scale 7-10) Pharmacy Consult 1 each 01/25/21 10:27 Consult Rx Perform Med Rec MISCELLANE ONCE PRN Consult order Sodium Chloride 3 ml 01/25/21 16:00 01/29/21 14:34 0.9 % Sodium Chloride Flush 3 Ml Syringe IVFLUSH 3 ml QSHIFT JERRELL Administration Labs CBC & Chem 7: 01/29/21 06:33 01/29/21 06:33 Labs: Laboratory Results - last 24 hr 01/29/21 01/29/21 01/29/21 06:33 06:33 09:10 Hgb 8.4 L Hct 28.4 L Sodium 140 Potassium 4.0 Chloride 101 Carbon Dioxide 30 H Anion Gap 13 BUN 14 Creatinine 0.70 Estim Creat Clear Calc 122.5 Estimated GFR > 60 Random Glucose 88 Calcium 8.5 COVID-19 (SHANICE) COVID-19 Clin Com Blood Type A Positive Antibody Screen NEGATIVE Crossmatch See Detail 01/29/21 15:30 Hgb Hct Sodium Potassium Chloride Carbon Dioxide Anion Gap BUN Creatinine Estim Creat Clear Calc Estimated GFR Random Glucose Calcium COVID-19 (SHANICE) Negative COVID-19 [employer] Com See Note Blood Type Antibody Screen Crossmatch Quality Stroke Does the patient have a stroke diagnosis?: No VTE Prior VTE?: No VTE Risk Level:: Surgical - high VTE Device Contraindication: N/A - Device Ordered VTE Drug Contraindication: Treatment Not Indicated Assessment and Plan (1) Leukocytosis: Status: Acute (2) Anemia: Status: Acute Assessment and Plan: 60 years old male with PMH which can inform CHF, aortic stenosis post AVR, chronic anemia among others who presented to the hospital after sustaining a mechanical fall and found to hip fracture. 1.Isolated fever / leukocytosis no definitive source found, blood cultures x2 negative in last 24 hours, UA showed no bacteria, chest x-ray showed atelectasis and pleural effusion similar to prior study W PC normalized yesterday trended back to 14-now 16's range this morning likely reactive with no recurrent fevers, no bandemia Discussed with ID-leukocytosis seems to be reactive to fracture, will hold off on antibiotic unless patient has any hypoxia or any pulmonary complaints. 2.Anemia, chronic no acute drop in hematocrit had recent GI bleed - had some benign polpys on colonoscopy -- his eliquis was discontinued Patient seen by Dr. Leal and he recommend to use anticoagulation as appropriate postprocedure, patient started on Lovenox as per Ortho will follow CBC if noted to have drop in hematocrit will consult Gastroenterology patient is scheduled to undergo capsule study as outpatient monitor h/h is runnning between 27-30 range ,hct today is 28, patient currently asymptomatic, consider transfusing if further trending down Discussed with Ortho patient was given 1 unit of PRBC. Already on Lasix 40 p.o. b.i.d. euvolemic ,will defer iv lasix after prbc transfusion 3.Chronic HFpEF: off IV fluid no fluid overload noted POD 1 s/p Left hip percutaneous pinning good pain control continue current pain medication continue PT and further treatment plan as per Ortho
[2021-01-29] MEDS: Acetaminophen 325 MG TABLET PO (19:39)
[2021-01-30] VITALS (7 sets, daily range): BP systolic 90–121; BP diastolic 55–64; PULSE 94–107; RESP 18–20; TEMP 36.6–37.7; O2SAT 94–100
[2021-01-30] MEDS: HYDROmorphone HCl 0.5 MG/0.5 ML SYRINGE 0.25 MG IVPUSH (00:44)
[2021-01-30] MEDS: Levothyroxine Sodium 175 MCG TABLET PO (05:49)
[2021-01-30] MEDS: Omeprazole 20 MG CAPSULE.DR PO (05:49)
[2021-01-30 07:03] LABS: Hematocrit 32.4 % (42-52); Hemoglobin 9.6 g/dl (14.0-18.0)
[2021-01-30 07:30] LABS: Anion Gap 12 (12-20); Blood Urea Nitrogen 13 mg/dL (9-16); Calcium 8.5 mg/dL (8.4-10.2); Carbon Dioxide 32 mmol/L (22-29); Chloride 99 mmol/L (96-108); Creatinine Clr Calc Pharmacy 124.2; Estimated Glomerular Filt Rate > 60; Glucose Random 91 mg/dL (60-115); Potassium 3.8 mmol/L (3.3-5.1); Sodium 139 mmol/L (135-145)
[2021-01-30] MEDS: Furosemide 40 MG TABLET PO (08:23)
[2021-01-30] MEDS: 0.9 % Sodium Chloride Flush 3 ML SYRINGE IVFLUSH ×3 (08:23→20:52)
[2021-01-30] MEDS: Docusate Sodium 100 MG CAPSULE PO ×2 (08:23→20:52)
[2021-01-30] MEDS: oxyCODONE HCl ER 10 MG TAB.ER.12H PO (08:24)
--- NOTE | 2021-01-30 08:41 | MHC.CM.PN ---
Addendum entered by Char Santamaria 01/30/21 08:57: PTS DISCHARGE HAS BEEN POSTPONED DUE TO PT HAVING A FEVER. PT, HIS , AND SNF INFORMED Addendum entered by Char Santamaria 01/30/21 08:55: AFTER DISCUSSING OPTIONS WITH PT AND HIS , [facility] ([phone]), THEY HAVE DECIDED THEY WOULD PREFER FOR [facility] TO TRANSPORT THE PT VIA CAR. Original Note: CM RECEIVED A MESSAGE INDICATING PTS INSURANCE COMPANY GAVE STR AUTH LAST EVENING. PT WILL DISCHARGE TO [facility] TODAY AT HOURS. CM WILL DISCUSS TRANSPORTATION OPTIONS WITH PT AND MAKE APPROPRIATE ARRANGEMENTS
[2021-01-30] MEDS: Enoxaparin Sodium 40 MG/0.4 ML SYRINGE SUBCUT (15:23)
--- NOTE | 2021-01-30 15:36 | P.PNIM_ITS ---
Subjective Subjective Date of Service: 01/30/21 Interval History: fever episode last evening Review of Systems Denies any new complaint including chest pain shortness of breath or cough or phlegm or any urinary complaints Physical Exam Vital Signs: Vital Signs: Last Vital Signs Temp 99.2 F 01/30/21 15:00 Pulse 100 01/30/21 15:00 Resp 20 01/30/21 15:00 BP 103/62 01/30/21 15:00 Pulse Ox 100 01/30/21 15:00 Body Mass Index 23.4 Physical exam: Cvs: rrr, [id number] , no murmur res: clear to auscultation ,no rhonchii or wheezing abd: no rebound or guarding ,nt, bs present. ext pulses present , no cyanosis neuro: axo3 , nonfocal. Objective Data Current Medications Generic Name Dose Route Start Last Admin Trade Name Freq PRN Reason Stop Dose Admin Acetaminophen 325 mg 01/26/21 15:50 01/29/21 19:39 Acetaminophen 325 Mg Tablet PO 325 mg Q4H PRN Administration Pain, Mild (Pain Scale 1-3) Docusate Sodium 100 mg 01/25/21 21:00 01/30/21 08:23 Docusate Sodium 100 Mg Capsule PO 100 mg BID JERRELL Administration Enoxaparin Sodium 40 mg 01/27/21 13:00 01/30/21 15:23 Enoxaparin Sodium 40 Mg/0.4 Ml Syringe SUBCUT 40 mg Q24H JERRELL Administration Furosemide 40 mg 01/27/21 18:00 01/30/21 08:23 Furosemide 40 Mg Tablet PO 40 mg BID@0900,1800 JERRELL Administration Protocol Hydromorphone HCl 0.25 mg 01/27/21 16:18 01/30/21 00:44 Hydromorphone Hcl 0.5 Mg/0.5 Ml Syringe IVPUSH 0.25 mg Q4H PRN Administration Pain, Severe (Pain Scale 7-10) Levothyroxine Sodium 175 mcg 01/26/21 06:00 01/30/21 05:49 Levothyroxine Sodium 175 Mcg Tablet PO 175 mcg DAILY@0600 JERRELL Administration Naloxone HCl 0.2 mg 01/25/21 14:51 Naloxone Hcl 0.4 Mg/Ml Vial IVPUSH Q2M PRN Excessive sedation or RR < 8 Omeprazole 20 mg 01/27/21 06:30 01/30/21 05:49 Omeprazole 20 Mg Capsule. PO 20 mg DAILY@0630 [facility] Administration Ondansetron HCl 4 mg 01/25/21 14:51 Ondansetron Hcl 4 Mg/2 Ml Vial IVPUSH Q8H PRN Nausea and Vomiting Pharmacy Consult 1 each 01/25/21 10:27 Consult Rx Perform Med Rec MISCELLANE ONCE PRN Consult order Sodium Chloride 3 ml 01/25/21 16:00 01/30/21 15:24 0.9 % Sodium Chloride Flush 3 Ml Syringe IVFLUSH 3 ml QSHIFT JERRELL Administration Labs CBC & Chem 7: 01/30/21 05:38 01/30/21 05:38 Labs: Laboratory Results - last 24 hr 01/29/21 01/30/21 01/30/21 15:30 05:38 05:38 Hgb 9.6 L Hct 32.4 L Sodium 139 Potassium 3.8 Chloride 99 Carbon Dioxide 32 H Anion Gap 12 BUN 13 Creatinine 0.69 Estim Creat Clear Calc 124.2 Estimated GFR > 60 Random Glucose 91 Calcium 8.5 COVID-19 (SHANICE) Negative COVID-19 Clin Com See Note Quality Stroke Does the patient have a stroke diagnosis?: No VTE Prior VTE?: No VTE Risk Level:: Surgical - high VTE Device Contraindication: N/A - Device Ordered VTE Drug Contraindication: Treatment Not Indicated Assessment and Plan (1) Fever: Status: Acute Assessment and Plan: 60 years old male with PMH which can inform CHF, aortic stenosis post AVR, chronic anemia among others who presented to the hospital after sustaining a mechanical fall and found to hip fracture. 1.Isolated fever / leukocytosis last fever 100.9*f on eepisode no definitive source found, blood cultures x2 negative in last 24 hours, UA laura wed no bacteria, chest x-ray showed atelectasis and pleural effusion similar to prior study W PC normalized yesterday trended back to 14-now 16's range this morning likely reactive with no recurrent fevers, no bandemia Discussed with ID-leukocytosis seems to be reactive to fracture, will hold off on antibiotic unless patient has any hypoxia or any pulmonary complaints. 2.Anemia, chronic no acute drop in hematocrit had recent GI bleed - had some benign polpys on colonoscopy -- his eliquis was d iscontinued Patient seen by Dr. Leal and he recommend to use anticoagulation as appropriate postprocedure, patient started on Lovenox as per Ortho will follow CBC if noted to have drop in hematocrit will consult Gastroenterology patient is scheduled to undergo capsule study as outpatient Discussed with Ortho-s/p 1 unit of PRBC.h/h stable in range 9.6/32.4 on 3.Chronic HFpEF: off IV fluid no fluid overload noted, continue lasix POD 1 s/p Left hip percutaneous pinning good pain control continue current pain medication continue PT and further treatment plan as per Ortho
[2021-01-30] MEDS: ondansetron HCL 4 MG/2 ML VIAL IVPUSH (19:33)
[2021-01-30] MEDS: oxyCODONE HCl Immed Release 5 MG TABLET PO (20:51)
[2021-01-30] MEDS: HYDROmorphone HCl 0.5 MG/0.5 ML SYRINGE IVPUSH (22:46)
[2021-01-30] MEDS: Baclofen 10 MG TABLET 5 MG PO (22:53)
[2021-01-31 03:38] VITALS: BP 102/54; PULSE 97; RESP 18; TEMP 36.3; O2SAT 96
[2021-01-31] MEDS: Levothyroxine Sodium 175 MCG TABLET PO (06:00)
[2021-01-31] MEDS: Omeprazole 20 MG CAPSULE.DR PO (06:00)
[2021-01-31] MEDS: HYDROmorphone HCl 0.5 MG/0.5 ML SYRINGE IVPUSH (06:47)
[2021-01-31 07:21] VITALS: BP 97/57; PULSE 100; RESP 20; TEMP 37; O2SAT 96
[2021-01-31 07:38] LABS: Hematocrit 33.2 % (42-52); Hemoglobin 9.8 g/dl (14.0-18.0); Mean Corpuscular HGB Conc 29.5 g/dl (31.0-36.0); Mean Corpuscular Hemoglobin 22.1 pg (27.0-33.0); Mean Corpuscular Volume 74.8 fL (80-98); Mean Platelet Volume 9.9 fL (9.4-12.4); NRBC Pct Auto 0.2 /100WBC (0.0-0.2); Platelet Count 357 X10*3/uL (160-400); Red Blood Count 4.44 X10*6/uL (4.60-5.80); Red Cell Distribution Width 27.9 % (11.0-16.0); White Blood Count 8.5 X10*3/uL (4.8-10.8)
[2021-01-31] MEDS: Docusate Sodium 100 MG CAPSULE PO (09:01)
[2021-01-31] MEDS: 0.9 % Sodium Chloride Flush 3 ML SYRINGE IVFLUSH (09:02)
[2021-01-31] MEDS: Furosemide 40 MG TABLET PO (09:02)
[2021-01-31] MEDS: Baclofen 10 MG TABLET 5 MG PO (10:46)
--- NOTE | 2021-01-31 10:47 | P.PNIM_ITS ---
Subjective Subjective Date of Service: 01/31/21 Interval History: fever episode last evening Review of Systems Denies any new complaint including chest pain shortness of breath or cough or phlegm or any urinary complaints Musculoskeletal Musculoskeletal: Reports arthralgias (Left hip due to fracture) Physical Exam 2 Vital Signs: Vital Signs: Last Vital Signs Temp 98.6 F 01/31/21 07:21 Pulse 100 01/31/21 07:21 Resp 20 01/31/21 07:21 BP 97/57 L 01/31/21 07:21 Pulse Ox 96 01/31/21 07:21 Body Mass Index 23.4 Const: Other: General - no acute distress Cardiovascular - regular rate and rhythm, S1-S2 Lungs - normal respiratory effort, clear to auscultation bilaterally, no wheezing Abdomen - soft, non-tender, no rebound or guarding Extremities - no edema bilaterally Neuro - awake and alert, no focal deficits Objective Data Current Medications Generic Name Dose Route Start Last Admin Trade Name Freq PRN Reason Stop Dose Admin Acetaminophen 325 mg 01/26/21 15:50 01/29/21 19:39 Acetaminophen 325 Mg Tablet PO 325 mg Q4H PRN Administration Pain, Mild (Pain Scale 1-3) Baclofen 5 mg 01/31/21 10:22 01/31/21 10:46 Baclofen 10 Mg Tablet PO 5 mg TID PRN Administration Hicups Docusate Sodium 100 mg 01/25/21 21:00 01/31/21 09:01 Docusate Sodium 100 Mg Capsule PO 100 mg BID JERRELL Administration Enoxaparin Sodium 40 mg 01/27/21 13:00 01/30/21 15:23 Enoxaparin Sodium 40 Mg/0.4 Ml Syringe SUBCUT 40 mg Q24H JERRELL Administration Furosemide 40 mg 01/27/21 18:00 01/31/21 09:02 Furosemide 40 Mg Tablet PO 40 mg BID@0900,1800 JERRELL Administration Protocol Hydromorphone HCl 0.5 mg 01/30/21 22:31 01/31/21 06:47 Hydromorphone Hcl 0.5 Mg/0.5 Ml Syringe IVPUSH 0.5 mg Q4H PRN Administration Breakthrough Pain Levothyroxine Sodium 175 mcg 01/26/21 06:00 01/31/21 06:00 Levothyroxine Sodium 175 Mcg Tablet PO 175 mcg DAILY@0600 JERRELL Administration Naloxone HCl 0.2 mg 01/25/21 14:51 Naloxone Hcl 0.4 Mg/Ml Vial IVPUSH Q2M PRN Excessive sedation or RR < 8 Omeprazole 20 mg 01/27/21 06:30 01/31/21 06:00 Omeprazole 20 Mg Capsule. PO 20 mg DAILY@0630 JERRELL Administration Ondansetron HCl 4 mg 01/25/21 14:51 01/30/21 19:33 Ondansetron Hcl 4 Mg/2 Ml Vial IVPUSH 4 mg Q8H PRN Administration Nausea and Vomiting Pharmacy Consult 1 each 01/25/21 10:27 Consult Rx Perform Med Rec MISCELLANE ONCE PRN Consult order Sodium Chloride 3 ml 01/25/21 16:00 01/31/21 09:02 0.9 % Sodium Chloride Flush 3 Ml Syringe IVFLUSH 3 ml QSHIFT JERRELL Administration Labs CBC & Chem 7: 01/31/21 07:30 01/30/21 05:38 Labs: Laboratory Results - last 24 hr 01/31/21 07:30 WBC 8.5 RBC 4.44 L Hgb 9.8 L Hct 33.2 L MCV 74.8 L MCH 22.1 L MCHC 29.5 L RDW 27.9 H Plt Count 357 MPV 9.9 Absolute Nucleated RBC 0.020 H Nucleated RBC % (auto) 0.2 Microbiology Microbiology Results: Microbiology 01/26/21 05:47 Blood Culture - Final Blood - Venous No growth after 5 days. 01/26/21 05:50 Blood Culture - Final Blood - Venous No growth after 5 days. Quality Stroke Does the patient have a stroke diagnosis?: No VTE Prior VTE?: No VTE Risk Level:: Surgical - high VTE Device Contraindication: N/A - Device Ordered VTE Drug Contraindication: Treatment Not Indicated Assessment and Plan (1) Fever: Status: Acute Assessment and Plan: 60 years old male with PMH which can inform CHF, aortic stenosis post AVR, chronic anemia among others who presented to the hospital after sustaining a mechanical fall and found to hip fracture. 1.Isolated fever --resolved, WBC normal, nof further w/u needed, likely reactive, no further work up needed 2.Anemia, chronic no acute drop in hematocrit, he has been off Eliquis pending capsule endoscopy for recent gib, anemia. Seem to be doing ok with Lovenox. H/H is stable, since 1 unit of transfusion. To follow up on outpatient basis for capsule endoscopy 3.Chronic HFpEF: compensated, continue Lasix POD s/p Left hip percutaneous pinning good pain control continue current pain medication continue PT and further treatment plan as per Ortho hicups--baclofen PRN He is stable discharge
--- NOTE | 2021-01-31 11:27 | MHC.CM.PN ---
Notified patient is ready for D/C and time SNF can admit (1:30). 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
[2021-01-31 11:28] VITALS: BP 102/64; PULSE 105; RESP 18; TEMP 37.1; O2SAT 99
[2021-01-31] MEDS: Enoxaparin Sodium 40 MG/0.4 ML SYRINGE SUBCUT (13:49)
== END 2021-01-31 14:00 | disposition skilled nursing facility (03) | DRG 481 ==
LOC: HO.ED 10:25 → HO.EDOVER 13:05 → HO.IMC 19:50
PROVIDERS: Hospitalist; Internal Medicine; Physician Assistant; Admitting Provider Orthopaedic Surgery; Emergency Provider Emergency Medicine; PCP Internal Medicine; Visit Provider Orthopaedic Surgery
PROC: 0QS734Z Reposition Left Upper Femur with Internal Fixation Device, Percutaneous Approach (ICD-10-PCS; principal; 2021-01-26 14:30)
DX: S72.012A Unspecified intracapsular fracture of left femur, initial encounter for closed fracture (principal); I50.32 Chronic diastolic (congestive) heart failure; Q85.8 Other phakomatoses, not elsewhere classified; Z95.2 Presence of prosthetic heart valve; W18.30XA Fall on same level, unspecified, initial encounter; Y93.9 Activity, unspecified; D72.829 Elevated white blood cell count, unspecified; D63.8 Anemia in other chronic diseases classified elsewhere; Z20.822 Contact with and (suspected) exposure to COVID-19; Y92.481 Parking lot as the place of occurrence of the external cause; R00.0 Tachycardia, unspecified; R06.6 Hiccough; Y99.0 Civilian activity done for income or pay; Z95.810 Presence of automatic (implantable) cardiac defibrillator; Z86.711 Personal history of pulmonary embolism; Z85.72 Personal history of non-Hodgkin lymphomas; Z79.82 Long term (current) use of aspirin; Z79.890 Hormone replacement therapy; Z79.899 Other long term (current) drug therapy
CPT/HCPCS: 36415; 71045; 73502; 73700; 80048; 80076; 81001; 83605; 85014; 85018; 85025; 85027; 86850; 86900; 86901; 86923; 87040; 87635; 97110; 97116; 97161; 97166; 97535; 99285; C1713; C1769; J0131; J0690; J0696; J1100; J1170; J1650; J2250; J2370; J2405; J3010; P9016

== ENCOUNTER → 2021-02-08 13:43 | Outpatient (BNVA) | payer OTHER, SELFPAY | PROVIDERS: Visit Provider Physician Assistant | DX: S72.92XD Unspecified fracture of left femur, subsequent encounter for closed fracture with routine healing (principal) | CPT/HCPCS: 99212 ==

== ENCOUNTER 2021-03-08 09:21 | Outpatient (REF) | payer OTHER, SELFPAY ==
--- NOTE | ~2021-03-08 | XR_ITS ---
EXAMINATION: XR PELVIS XR HIP, LEFT CLINICAL INFORMATION: History of fracture. COMPARISON: CT left hip and left hip radiographs dated 01/25/2021. TECHNIQUE: AP view of the pelvis. Frog lateral view of the left hip. FINDINGS: Bony alignment and mineralization are normal. The bilateral acetabular joint spaces are well-maintained. There is mild peripheral osteophyte formation of the bilateral acetabular roofs. There are 3 orthopedic screws applied to the left femoral neck. No fracture line is presently seen. There is no dislocation. There are right pelvic surgical clips. XR/XR hip LT 1V IMPRESSION: There is interval healing of status-post ORIF of a left femoral neck fracture. There is good bony alignment. Mild osteoarthritic changes are seen of the bilateral hips.
--- NOTE | ~2021-03-08 | XR_ITS ---
EXAMINATION: XR PELVIS XR HIP, LEFT CLINICAL INFORMATION: History of fracture. COMPARISON: CT left hip and left hip radiographs dated 01/25/2021. TECHNIQUE: AP view of the pelvis. Frog lateral view of the left hip. FINDINGS: Bony alignment and mineralization are normal. The bilateral acetabular joint spaces are well-maintained. There is mild peripheral osteophyte formation of the bilateral acetabular roofs. There are 3 orthopedic screws applied to the left femoral neck. No fracture line is presently seen. There is no dislocation. There are right pelvic surgical clips. XR/XR pelvis 1-2V IMPRESSION: There is interval healing of status-post ORIF of a left femoral neck fracture. There is good bony alignment. Mild osteoarthritic changes are seen of the bilateral hips.
== END 2021-03-08 09:22 | disposition home or self-care (01) ==
LOC: HO.HOSX 09:21
PROVIDERS: PCP Internal Medicine; Referring Provider Internal Medicine; Visit Provider Internal Medicine
DX: M25.552 Pain in left hip (principal); I42.8 Other cardiomyopathies; I44.7 Left bundle-branch block, unspecified; I95.0 Idiopathic hypotension; Z95.2 Presence of prosthetic heart valve; Z95.810 Presence of automatic (implantable) cardiac defibrillator; S72.90XD Unspecified fracture of unspecified femur, subsequent encounter for closed fracture with routine healing
CPT/HCPCS: 72170; 73501

== ENCOUNTER 2021-03-12 12:36 | Outpatient (REF) | payer OTHER, SELFPAY ==
[2021-03-12 13:15] LABS: MANUAL DIFF FLAG NO
[2021-03-12 13:25] LABS: Basophils Absolute Auto 0.1 X10*3/uL (0.0-0.2); Basophils Percent Auto 0.8 % (0-2); Eosinophils Absolute Auto 0.1 X10*3/uL (0.0-0.4); Eosinophils Percent Auto 1.2 % (0-4); Hematocrit 35.1 % (42-52); Hemoglobin 10.5 g/dl (14.0-18.0); Imm Gran Abs Auto 0.02 X10*3/uL (0.00-0.03); Imm Gran Pct Auto 0.2 % (0.0-0.4); Lymphocytes Absolute Auto 1.3 X10*3/uL (1.2-4.9); Lymphocytes Percent Auto 15.9 % (20-40); Mean Corpuscular HGB Conc 29.9 g/dl (31.0-36.0); Mean Corpuscular Hemoglobin 23.2 pg (27.0-33.0); Mean Corpuscular Volume 77.5 fL (80-98); Mean Platelet Volume 9.7 fL (9.4-12.4); Monocytes Absolute Auto 1.2 X10*3/uL (0.1-1.2); Monocytes Percent Auto 14.5 % (2-11); Neutrophils Absolute Auto 5.6 X10*3/uL (2.0-8.3); Neutrophils Percent Auto 67.4 % (45-73); Platelet Count 537 X10*3/uL (160-400); Red Blood Count 4.53 X10*6/uL (4.60-5.80); White Blood Count 8.3 X10*3/uL (4.8-10.8)
[2021-03-12 13:40] LABS: Iron 21 mcg/dL (45-160); Percent Iron Saturation 8 % (15-50); Total Iron Binding Capacity 267 mcg/dL (228-428); Unsaturated Iron Binding 246 ug/dL
[2021-03-12 14:04] LABS: Thyroid Stimulating Hormone 0.04 uIU/mL (0.32-4.0)
== END 2021-03-12 12:37 | disposition home or self-care (01) ==
LOC: HO.LAB 12:36
PROVIDERS: PCP Internal Medicine; Visit Provider Internal Medicine
DX: E03.9 Hypothyroidism, unspecified (principal); D64.9 Anemia, unspecified
CPT/HCPCS: 36415; 83540; 84443; 85025

== ENCOUNTER → 2021-03-29 09:00 | Outpatient (BNVA) | payer OTHER, SELFPAY | PROVIDERS: PCP Internal Medicine; Visit Provider Internal Medicine ==

== ENCOUNTER 2021-04-12 07:58 | Outpatient (REF) | payer OTHER, SELFPAY ==
--- NOTE | ~2021-04-12 | XR_ITS ---
EXAMINATION: XR PELVIS XR HIP, LEFT CLINICAL INFORMATION: Pain. COMPARISON: Pelvic and left hip radiographs dated 03/08/2021. TECHNIQUE: AP view the pelvis. Crosstable lateral view of the left hip. FINDINGS: Healed/healing left femoral neck fracture in anatomic alignment. Left hip orthopedic screws without hardware fracture. No perihardware lucency to suggest loosening or infection. No osseous erosion. Bilateral hip joint space narrowing with marginal osteophytes. Right pelvic surgical clips. XR/XR hip LT 1V IMPRESSION: Healed/healing left femoral neck fracture in anatomic alignment. Associated orthopedic screws without evidence of hardware complication.
--- NOTE | ~2021-04-12 | XR_ITS ---
EXAMINATION: XR PELVIS XR HIP, LEFT CLINICAL INFORMATION: Pain. COMPARISON: Pelvic and left hip radiographs dated 03/08/2021. TECHNIQUE: AP view the pelvis. Crosstable lateral view of the left hip. FINDINGS: Healed/healing left femoral neck fracture in anatomic alignment. Left hip orthopedic screws without hardware fracture. No perihardware lucency to suggest loosening or infection. No osseous erosion. Bilateral hip joint space narrowing with marginal osteophytes. Right pelvic surgical clips. XR/XR pelvis 1-2V IMPRESSION: Healed/healing left femoral neck fracture in anatomic alignment. Associated orthopedic screws without evidence of hardware complication.
== END 2021-04-12 07:59 | disposition home or self-care (01) ==
LOC: HO.HOSX 07:58
PROVIDERS: Visit Provider Orthopaedic Surgery
DX: S72.92XD Unspecified fracture of left femur, subsequent encounter for closed fracture with routine healing (principal)
CPT/HCPCS: 72170; 73501

== ENCOUNTER 2021-04-14 08:47 | Outpatient (REF) | payer OTHER, SELFPAY ==
--- NOTE | ~2021-04-14 | US_ITS ---
EXAMINATION: US THYROID CLINICAL INFORMATION: Hypothyroidism, unspecified. COMPARISON: CT soft tissue neck 08/22/2006 TECHNIQUE: Linear transducer pugh-scale and color Doppler examination with attention to the region of the thyroid. FINDINGS: SIZE: Measurements of the thyroid lobes and nodules are given in sagittal, anteroposterior and transverse dimensions respectively. Right Thyroid Lobe: 4.1 x 1.7 x 0.8 cm, volume 2.9 mL. Parenchyma: The gland echotexture is heterogeneous. Thyroid vascularity is normal. Left Thyroid Lobe: 2.9 x 0.6 x 1.0 cm, volume 0.9 mL. Parenchyma: The gland echotexture is homogeneous. Thyroid vascularity is normal. Isthmus: 0.1 cm in maximum AP dimension. Estimated total number of nodules greater than or equal to 1 cm: 0. Inbound Call Center Agent nodules are described as follows: 1. Location: Right upper pole. Size: 1.2 x 0.5 x 0.7 cm, volume 0.23 mL. Nodule characteristics: Composition: Solid (2). Echogenicity: Very hypoechoic (3). Shape: Not taller than wide (0). Margins: Smooth (0). Echogenic Foci: Punctate echogenic foci (3). ACR TI-RADS total points: 8 ACR TI-RADS category: 5 2. Location: Right mid pole. Size: 0.7 x 0.7 x 0.7 cm, volume 0.16 mL. Nodule characteristics: Composition: Solid (2). Echogenicity: Hyperechoic (1). Shape: Not taller than wide (0). Margins: Smooth (0). Echogenic Foci: Punctate echogenic foci (3). ACR TI-RADS total points: 6 ACR TI-RADS category: 4 3. Location: Left mid pole. Size: 0.7 x 0.5 x 0.6 cm, volume 0.12 mL. Nodule characteristics: Composition: Solid (2). Echogenicity: Hypoechoic (2). Shape: Not taller than wide (0). Margins: Smooth (0). Echogenic Foci: None (0). ACR TI-RADS total points: 4 ACR TI-RADS category: 4 NODES: No lymphadenopathy is seen in the tissue surrounding the thyroid gland. US/US thyroid IMPRESSION: Small thyroid lobes are heterogeneous. The upper pole right lobe nodule by TI-RADS criteria is abnormal. A fine-needle aspiration of right upper lobe nodule is recommended. ACR TI-RADS RECOMMENDATION REFERENCE: Ultrasound-guided fine-needle aspiration, followup ultrasound, no further followup. * TR1 (0 point) and TR 2 (2 points): No FNA or followup. * TR3 (3 points): FNA if more than or equal to 2.5 cm in maximum dimension, followup ultrasound in 1, 3 and 5 years if 1.5 to 2.4 cm in maximum dimension. * TR4 (4-6 points): FNA if more than or equal to 1.5 cm in maximum dimension, followup ultrasound in 1, 2, 3 and 5 years if 1 to 1.4 cm in maximum dimension. * TR5 (more than or equal to 7 points): FNA if more than or equal to 1 cm in maximum dimension, followup ultrasound every year for 5 years if 0.5 to 0.9 cm in maximum dimension. * TR3, TR4 or TR5 nodules that are below the size threshold for followup receive no followup.
== END 2021-04-14 08:48 | disposition home or self-care (01) ==
LOC: HO.US 08:47
PROVIDERS: Visit Provider Internal Medicine
DX: E03.9 Hypothyroidism, unspecified (principal)
CPT/HCPCS: 76536

== ENCOUNTER 2021-04-22 08:42 | Day surgery (SDC) | payer OTHER, SELFPAY ==
[2021-04-15 11:38] VITALS: BMI 20.6
[2021-04-15 15:20] LABS: MANUAL DIFF FLAG NO
[2021-04-15 15:37] LABS: Basophils Absolute Auto 0.1 X10*3/uL (0.0-0.2); Eosinophils Absolute Auto 0.2 X10*3/uL (0.0-0.4); Hematocrit 32.3 % (42-52); Hemoglobin 10.1 g/dl (14.0-18.0); Imm Gran Abs Auto 0.02 X10*3/uL (0.00-0.03); Imm Gran Pct Auto 0.2 % (0.0-0.4); Lymphocytes Absolute Auto 1.1 X10*3/uL (1.2-4.9); Lymphocytes Percent Auto 13.9 % (20-40); Mean Corpuscular HGB Conc 31.3 g/dl (31.0-36.0); Mean Platelet Volume 9.3 fL (9.4-12.4); Monocytes Percent Auto 12.2 % (2-11); Neutrophils Absolute Auto 5.7 X10*3/uL (2.0-8.3); Neutrophils Percent Auto 70.7 % (45-73); Platelet Count 450 X10*3/uL (160-400); Red Blood Count 3.89 X10*6/uL (4.60-5.80); Red Cell Distribution Width 21.2 % (11.0-16.0)
[2021-04-15 15:41] LABS: INTERNATIONAL NORM RATIO 1.3 (0.9-1.1); Prothrombin Time 14.4 SEC (9.9-13.0)
[2021-04-15 15:50] LABS: Anion Gap 11 (12-20); Blood Urea Nitrogen 12 mg/dL (9-16); Calcium 8.9 mg/dL (8.4-10.2); Carbon Dioxide 28 mmol/L (22-29); Chloride 103 mmol/L (96-108); Creatinine Clr Calc Pharmacy 110.8; Estimated Glomerular Filt Rate > 60; Glucose Random 83 mg/dL (60-115); Potassium 4.3 mmol/L (3.3-5.1); Sodium 138 mmol/L (135-145)
--- NOTE | 2021-04-21 10:45 | HO.ANESPROP2 ---
Documented by User: Yvrose Fonseca NP 04/21/21 10:57 HPI - Anesthesia Eval Consult details Narrative: 60yo M for Pacemaker Generator Change ICD and HAND II CUTTER in situ PMFSH Active Problems Active Problems: All Active Problems (Updated 04/15/21 @ 11:42 by Maki Brown RN) Hyperkalemia (Acute) Fecal occult blood test positive (Acute) Bilateral pulmonary embolism (Acute) Encounter for interrogation of cardiac defibrillator (Acute) Closed femur fracture (Acute) NICM (nonischemic cardiomyopathy) (Acute) Vitamin D deficiency (Acute) Osteoporosis (Acute) Low TSH level (Acute) Anemia (Acute) Congestive heart failure (Acute) Hypothyroidism (Acute) Hypocalcemia (Acute) Past Medical History Medical History Anemia Aortic stenosis, severe Cardiac resynchronization therapy defibrillator (HAND II CUTTER-D) in place Complete heart block Congestive heart failure COVID-19 vaccine series completed 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HFrEF (heart failure with reduced ejection fraction) Hodgkins lymphoma Hypocalcemia Hypotension (arterial) Hypothyroidism LBBB (left bundle branch block) Leukocytosis Low TSH level NICM (nonischemic cardiomyopathy) Osteoporosis Pacemaker Pulmonary embolism Recurrent pleural effusion on right Shortness of breath Sinus tachycardia Vitamin D deficiency Family History Family History Father Healthy adult male Mother Bladder cancer Surgical History Surgical History H/O splenectomy History of appendectomy History of cardiac pacemaker History of esophagogastroduodenoscopy (EGD) History of hip surgery Hx of colonoscopy S/P TAVR (transcatheter aortic valve replacement) (~10/29/20) Social History Social History Household Members: Family Housing: House Are you a primary care transport nurse to a significant other at home: No Do you presently have visiting nurse or other home services: No Alcohol intake: current Alcohol intake frequency: holidays/special occasions only Patient Tobacco Use Status: Never used Tobacco e-Cigarette/Vaping Use: Never Used Second Hand Smoke Exposure: No Advance Directives Date on File: 01/25/21 service: Yes Current occupational status: employed Meds Allergies Allergy/AdvReac Type Severity Reaction Status Date / Time No Known Allergies Allergy Verified 04/15/21 11:35 [No Known Allergies*] Home Medications Medication Instructions Recorded Confirmed Last Taken Type furosemide 40 mg tablet 40 mg PO BID tab 12/21/20 04/15/21 04/22/21 06:00 History Exam Exam Date and Time: April 21, 2021 1045 Height,Weight and Vital Signs: Height 5 ft 11 in Weight 67.132 kg Pertinent Lab Results Pertinent Lab Results: Laboratory Tests 04/15/21 04/15/21 04/15/21 15:18 15:18 15:18 WBC 8.0 RBC 3.89 L Hgb 10.1 L Hct 32.3 L MCV 83.0 MCH 26.0 L MCHC 31.3 RDW 21.2 H Plt Count 450 H MPV 9.3 L Immature Gran % (Auto) 0.2 Neut % (Auto) 70.7 Lymph % (Auto) 13.9 L [place] % (Auto) 12.2 H Eos % (Auto) 2.0 Baso % (Auto) 1.0 Lymph # (Auto) 1.1 L [place] # (Auto) 1.0 Eos # (Auto) 0.2 Baso # (Auto) 0.1 Abs Immat Gran (auto) 0.02 Absolute Neuts (auto) 5.7 Absolute Nucleated RBC 0.000 Nucleated RBC % (auto) 0.0 PT 14.4 H INR 1.3 H Sodium 138 Potassium 4.3 Chloride 103 Carbon Dioxide 28 Anion Gap 11 L BUN 12 Creatinine 0.69 Estim Creat Clear Calc 110.8 Estimated GFR > 60 Random Glucose 83 Calcium 8.9 Narrative Narrative: EKG 01/2021 Vent. Rate : 094 BPM ? ? Atrial Rate : 094 BPM ?? P-R Int : 140 ms? QRS Dur : 144 ms ? ? QT Int : 440 ms ? ? ? P-R-T Axes : 061 248 051 degrees ?? QTc Int : 550 ms ? Atrial-sensed ventricular-paced rhythm Abnormal ECG When compared with ECG of 25-OCT-2020 11:02, Vent. rate has decreased BY ? 3 BPM ECHO 12/2020 Conclusions: -? 1. Normal LV systolic function with pseudonormal filling? ? ? pattern? 2. Normally function bioprosthetic aortic valve with mean? gradient of 11.5 mm of mercury ? 3. Normal measured RV systolic pressure with mildly elevated ? ? right atrial pressures ? 4. No gross pericardial effusion ?? ICD Interr 03/18/2021;?Battery life 2 months; normal lead parameters; total DESK LIEUTENANT >99%; no treated VT/VF; ; normal ICD function. HAND II CUTTER Interr 03/24/2021;?based on impedance data and physiological variables, there is no evidence of worsening congestive heart failure. Low patient activity level. Diminshed HR variability. Assessment and Plan Assessment Anesthesia Assessment: Chart Reviewed Documented by User: Zehra Crump MD 04/22/21 11:16 PMFSH Past Medical History Medical History Anemia Aortic stenosis, severe Cardiac resynchronization therapy defibrillator (HAND II CUTTER-D) in place Complete heart block Congestive heart failure COVID-19 vaccine series completed 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HFrEF (heart failure with reduced ejection fraction) Hodgkins lymphoma Hypocalcemia Hypotension (arterial) Hypothyroidism LBBB (left bundle branch block) Leukocytosis Low TSH level NICM (nonischemic cardiomyopathy) Osteoporosis Pacemaker Pulmonary embolism Recurrent pleural effusion on right Shortness of breath Sinus tachycardia Vitamin D deficiency Family History Family History Father Healthy adult male Mother Bladder cancer Family history of problems with anesthesia: No Surgical History Surgical History H/O splenectomy History of appendectomy History of cardiac pacemaker History of esophagogastroduodenoscopy (EGD) History of hip surgery Hx of colonoscopy S/P TAVR (transcatheter aortic valve replacement) (~10/29/20) History of Problems with Anesthesia: No Social History Social History Household Members: Family Housing: House Are you a primary care transport nurse to a significant other at home: No Do you presently have visiting nurse or other home services: No Alcohol intake: current Alcohol intake frequency: holidays/special occasions only Patient Tobacco Use Status: Never used Tobacco e-Cigarette/Vaping Use: Never Used Second Hand Smoke Exposure: No Advance Directives Date on File: 01/25/21 service: Yes Current occupational status: employed Meds Allergies Allergy/AdvReac Type Severity Reaction Status Date / Time No Known Allergies Allergy Verified 04/15/21 11:35 [No Known Allergies*] Home Medications Medication Instructions Recorded Confirmed Last Taken Type furosemide 40 mg tablet 40 mg PO BID tab 12/21/20 04/15/21 04/22/21 06:00 History Exam Height,Weight and Vital Signs: Height 5 ft 11 in Weight 67.132 kg Vital Signs Temp Pulse Resp BP Pulse Ox 04/22/21 09:31 98.3 F 97 18 108/70 100 Airway Mallampati Class: III TM Dist: >3cm Neck ROM: Full Denture: Upper Loose/Missing/Broken Teeth: Yes (Only few teeth bottom) Heart: RRR Lungs: CTAB Assessment and Plan Assessment Anesthesia Assessment: Anesthesia Plan Discussed Final Anesthetic Review Family History of Problems with Anesthesia: No History of Problems with Anesthesia: No NPO: Yes ASA Class: IV Final Preanesthetic Review: No Changes in Pt Med Stat, Meds/Allgs Chart Reviewed, Consent Obtained/Reviewed and Anes Risks/Benef Reviewed Patient Risk: High Procedure Risk: Intermediate Assessment/Block/Sedation in SS: Assess/Block/Sedation-SS Anesthetic Plan Anesthetic Plan: GA and MAC: Disposition: Standard PACU
--- NOTE | 2021-04-22 09:18 | PC.NURSE ---
medtronic by bedside evaluating pacemaker.
[2021-04-22 09:31] VITALS: BP 108/70; PULSE 97; RESP 18; TEMP 36.8; O2SAT 100
[2021-04-22] MEDS: Lactated Ringers 1,000 ML 20 ML IVCONT (09:47)
--- NOTE | 2021-04-22 14:22 | PM.OP ---
Brief Operative Note Date of Service: 04/22/21 Pre-op diagnosis: heart failure Procedure: defibrillator generator change Plan Discharge home after recovered No showering for 5 days. Instructions for wound in his chart and also in discharge instructions Surgeon: Ernesto Tamez MD Was an Inspector Water Pollution Control used for this Procedure?: No Estimated blood loss (mL): 50
[2021-04-22 14:27] VITALS: BP 105/67; PULSE 94; RESP 14; TEMP 36.6; O2SAT 98
[2021-04-22 14:42] VITALS: BP 115/76; PULSE 93; RESP 16; O2SAT 98
[2021-04-22 14:55] VITALS: BP 139/84; PULSE 91; RESP 16; TEMP 36.5; O2SAT 98
--- NOTE | 2021-04-22 17:43 | W.PM.OPN ---
Operative Note Operative Note Date of Service: 04/22/21 Narrative: Date of Service: 04/22/21 Narrative: Narrative: Procedure: Dual chamber pacemaker generator change Indication: heart failure, complete heart block with class III HF symptoms, MORALES Anesthesia: MAC provided by anesthesia Procedure The risks, benefits, complications, alternatives and expected outcomes were discussed with the patient. Patient was prepped and draped in the usual sterile fashion. After the antibiotic was infused, lidocaine was infiltrated medial to the deltopectoral groove. An incision was made. The incision was extended to the prepectoral fascia using blunt dissection.The leads were detached from the prior device and attached to the new device. The system was placed in the pocket. The pin of the leads was beyond the set screws. Hemostasis was verified. There was not enough fascia for antibiotic pouch to be placed. The pocket was closed with 3 layers with use of 0 vicryl, 2-0 vicryl, and 4-0 monocryl with good results. Steristrips and tegaderm were applied Device New: Medtronic Claria MRI Quad [id number] serial number [id number] Device removed/old: Medtronic CRTD [id number] serial number [id number] RV lead: [id number] serial number [id number] R waves none, threshold 1V at 0.4 ms, impedance 399 ohms, HV impedance 69 ohms RA lead: St Ej 1888TC, serial number [id number] Impedance 380 ohms, P waves 1.9 mV, threshold 1.25V at 0.4 ms LV lead model [id number] serial [id number] impedance 836 ohms, threshold 1V at 0.6 ms Programmed DDDR 60 BPM to 130 BPM VF >200 BPM, ATP while charging, 35J x 6 VT Monitor zone at 150 BPM Ernesto Tamez Electrophysiology/Cardiology Attending
== END 2021-04-22 15:52 | disposition home or self-care (01) ==
PROVIDERS: PCP Internal Medicine; Visit Provider Internal Medicine Cardiovascular Disease
PROC: (CPT 33264; principal; 2021-04-22 10:20)
DX: Z45.010 Encounter for checking and testing of cardiac pacemaker pulse generator [battery] (principal); I50.22 Chronic systolic (congestive) heart failure; Z95.810 Presence of automatic (implantable) cardiac defibrillator; Z95.2 Presence of prosthetic heart valve; I44.7 Left bundle-branch block, unspecified; I35.0 Nonrheumatic aortic (valve) stenosis; I42.8 Other cardiomyopathies; I95.9 Hypotension, unspecified; D64.9 Anemia, unspecified; Z79.82 Long term (current) use of aspirin; Z79.899 Other long term (current) drug therapy; Q85.8 Other phakomatoses, not elsewhere classified
CPT/HCPCS: 33264; 36415; 80048; 85025; 85610; C1722; C1882; J0690; J2370; J3010; J3370

== ENCOUNTER → 2021-05-05 10:58 | Outpatient (BNVA) | payer OTHER, SELFPAY | PROVIDERS: PCP Internal Medicine; Visit Provider Internal Medicine ==

== ENCOUNTER 2021-05-06 07:13 | Outpatient (REF) | payer OTHER, SELFPAY ==
[2021-05-06 08:40] LABS: Alanine Aminotransferase 8 U/L (0-40); Albumin Level 4.2 g/dL (3.5-5.0); Alkaline Phosphatase 66 U/L (39-117); Anion Gap 14 (12-20); Aspartate Amino Transferase 19 U/L (5-37); Bilirubin Total 0.6 mg/dL (0.0-1.0); Blood Urea Nitrogen 15 mg/dL (9-16); Calcium 9.4 mg/dL (8.4-10.2); Carbon Dioxide 30 mmol/L (22-29); Chloride 100 mmol/L (96-108); Estimated Glomerular Filt Rate > 60; Glucose Random 94 mg/dL (60-115); Phosphorus 4.6 mg/dL (2.7-4.5); Potassium 4.8 mmol/L (3.3-5.1); Sodium 139 mmol/L (135-145)
[2021-05-06 09:02] LABS: Free T4 (Free Thyroxine) 1.09 ng/dL (0.71-1.85); Thyroid Stimulating Hormone 8.12 uIU/mL (0.32-4.0); Vitamin D 25-OH Total 31.2 ng/mL (>30)
[2021-05-07 15:07] LABS: Prot Elec - Albumin 3.8 g/dL (3.8-4.8); Prot Elec - Alpha1 0.5 g/dL (0.2-0.3); Prot Elec - Alpha2 0.8 g/dL (0.5-0.9); Prot Elec - Beta 1 0.4 g/dL (0.4-0.6); Prot Elec - Beta 2 0.4 g/dL (0.2-0.5); Prot Elec - Gamma 1.7 g/dL (0.8-1.7); Prot Elec - Total Protein 7.6 g/dL (6.1-8.1)
[2021-05-07 16:01] LABS: Calcium (PTHI) 9.5 mg/dL (8.6-10.3); PTHI 54 pg/mL (14-64)
[2021-05-07 17:45] LABS: Sex Hormone Binding Globulin 83 nmol/L (22-77)
[2021-05-07 17:51] LABS: Triiodothyronine T3 Total 77 ng/dL (76-181)
[2021-05-08 09:46] LABS: Thyroglobulin Antibodies 1 IU/mL (< or = 1); Thyroid Peroxidase Antibodies <1 IU/mL (<9)
[2021-05-11 15:51] LABS: Testosterone, Free 103.5 pg/mL (35.0-155.0); Testosterone, Total 877 ng/dL (250-1100)
[2021-05-11 15:57] LABS: Thyroid Stimulating Immunoglob <89 % baseline (<140)
[2021-05-11 21:01] LABS: Thyrotropin Receptor Antibody <1.00 IU/L (<=2.00)
== END 2021-05-06 07:14 | disposition home or self-care (01) ==
LOC: HO.LAB 07:13
PROVIDERS: PCP Internal Medicine; Visit Provider Internal Medicine
DX: E03.9 Hypothyroidism, unspecified (principal); M81.0 Age-related osteoporosis without current pathological fracture
CPT/HCPCS: 36415; 80053; 82306; 83520; 83970; 84100; 84165; 84270; 84402; 84403; 84439; 84443; 84445; 84480; 86376; 86800

== ENCOUNTER 2021-06-09 15:00 | Outpatient (RCR) | payer OTHER, SELFPAY ==
--- NOTE | 2021-03-12 14:53 | MHC.PT.DC ---
[facility] [place] Office [place] Office [place] Office [address] Karen Jenkins [address] [facility] [phone] F: [phone] F: [phone] F: [phone] F: [phone] Physical Therapy Discharge Report Diagnosis: closed femur fracture ( wbat no restrictions ) Date of Surgery: 01/26/21 Date of Evaluation: 03/12/21 Date of Discharge: Treatments to Date: 1 Cancellations to Date: 0 No Shows to Date: 0 Discharge Status: Discharge Summary: pt presents to physical therapy with pain, decreased range of motion, decreased strength, impaired functional mobility, impaired postural awareness, and gait deviations. pt is a good candidate for skilled PT due to age, potential remediation of impairments, typical disease/condition progression and prognosis, comorbidities, and motivation. pt would benefit from tailored strengthening and stretching exercise program, functional training, gait training, postural re-training, neuromuscular re-education, modalities as needed for pain, equipment safety demonstration. Electronically signed by: Janet Mcclain PT, DPT Please sign and return to therapist. Thank you for your referral.
--- NOTE | 2021-06-25 12:30 | MHC.PT.DC ---
[facility] [place] Office [place] Office [place] [facility] [address] Karen Jenkins [address] [phone] F: [phone] F: [phone] F: [phone] F: [phone] Physical Therapy Discharge Report Diagnosis: closed femur fracture ( wbat no restrictions ) Date of Surgery: 01/26/21 Date of Evaluation: 03/12/21 Date of Discharge: 06/25/21 Treatments to Date: 19 Cancellations to Date: 6 No Shows to Date: 0 Discharge Status: Improved Function Independent with HEP Discharge Summary: The patient reports an improved tolerance for ambulation and dynamic activities. His last session was cancelled secondary to fall and fracturing right ribs. He is independent with his home exercise program. He is discharged from this physical therapy plan of care. Electronically signed by: Janet Mcclain PT, DPT Please sign and return to therapist. Thank you for your referral.
== END 2021-06-25 12:31 | disposition home or self-care (01) ==
LOC: HO.PT 15:00
PROVIDERS: PCP Internal Medicine; Visit Provider Orthopaedic Surgery
DX: S72.90XA Unspecified fracture of unspecified femur, initial encounter for closed fracture (principal)
CPT/HCPCS: 97110; 97112; 97116; 97162; 97530

== ENCOUNTER 2021-06-17 13:18 | Outpatient (REF) | payer OTHER, SELFPAY ==
--- NOTE | ~2021-06-17 | XR_ITS ---
EXAMINATION: XR HIP, RIGHT CLINICAL INFORMATION: Pain right hip COMPARISON: None TECHNIQUE: Two views of the right hip. FINDINGS: The right hip joint space is maintained normal. There is no visible acute fracture, dislocation or subluxation seen. No bony erosive changes. There are surgical portillo seen in the right pelvis from previous intervention. XR/XR hip RT min 2V IMPRESSION: Unremarkable right hip exam.
--- NOTE | ~2021-06-17 | XR_ITS ---
EXAMINATION: XR RIBS, RIGHT CLINICAL INFORMATION: Pleurodynia. Fall. COMPARISON: 01/26/2021 TECHNIQUE: 3 views of the right ribs were obtained. Frontal view of the chest. FINDINGS: Left chest wall pacer remains in place. Aortic valvular hardware. Left upper quadrant surgical clips. Prominent calcification in the central upper abdomen. This is unchanged. The lungs are well expanded. There is a small right-sided pleural effusion which is decreased from prior. The left lung is clear. Somewhat prominent markings in the right lower lung, likely chronic. No pneumothorax. The cardiomediastinal silhouette is unchanged, with a calcified aorta. A marker is positioned over the lateral right ribs. There are multiple right-sided rib fractures identified, involving the right lateral sixth, seventh, eighth, and ninth ribs. XR/XR ribs RT min 3V w CXR1V IMPRESSION: Fractures of the right lateral sixth through ninth ribs. Small right pleural effusion noted.
[2021-06-17 13:31] LABS: MANUAL DIFF FLAG NO
[2021-06-17 13:53] LABS: Basophils Absolute Auto 0.1 X10*3/uL (0.0-0.2); Basophils Percent Auto 0.9 % (0-2); Eosinophils Absolute Auto 0.1 X10*3/uL (0.0-0.4); Eosinophils Percent Auto 1.5 % (0-4); Hematocrit 39.1 % (42.0-52.0); Hemoglobin 12.1 g/dl (14.0-18.0); Imm Gran Abs Auto 0.02 X10*3/uL (0.00-0.03); Imm Gran Pct Auto 0.2 % (0.0-0.4); Lymphocytes Absolute Auto 0.9 X10*3/uL (1.2-4.9); Mean Corpuscular HGB Conc 30.9 g/dl (31.0-36.0); Mean Corpuscular Hemoglobin 27.3 pg (27.0-33.0); Mean Corpuscular Volume 88.3 fL (80.0-98.0); Mean Platelet Volume 9.9 fL (9.4-12.4); Monocytes Absolute Auto 0.9 X10*3/uL (0.1-1.2); Monocytes Percent Auto 11.7 % (2-11); Neutrophils Percent Auto 74.7 % (45-73); Platelet Count 422 X10*3/uL (160-400); Red Blood Count 4.43 X10*6/uL (4.60-5.80); Red Cell Distribution Width 19.5 % (11.0-16.0)
[2021-06-17 14:49] LABS: Free T4 (Free Thyroxine) 1.06 ng/dL (0.71-1.85); Thyroid Stimulating Hormone 6.15 uIU/mL (0.32-4.0)
== END 2021-06-17 13:19 | disposition home or self-care (01) ==
LOC: HO.LAB 13:18
PROVIDERS: Internal Medicine; Visit Provider Internal Medicine
DX: R07.89 Other chest pain (principal); M25.551 Pain in right hip; E03.9 Hypothyroidism, unspecified; D64.9 Anemia, unspecified
CPT/HCPCS: 36415; 71101; 73502; 84439; 84443; 85025

== ENCOUNTER 2021-06-17 18:01 | Emergency (ER) | payer OTHER, SELFPAY ==
--- NOTE | ~2021-06-17 | CT_ITS ---
EXAMINATION: CT CHEST, ABDOMEN AND PELVIS WITH CONTRAST. CLINICAL INFORMATION: Reason for Exam s/p fall with multiple r rib fx . COMPARISON: Rib radiographs earlier today and CT chest 01/13/2021. Left hip CT 01/25/2021. TECHNIQUE: Multidetector volumetric imaging was performed from the thoracic inlet through the pubic symphysis following the administration of: Oral contrast: None Intravenous contrast: 85 mL Omnipaque 350 No contrast reaction reported Sagittal and coronal reformatted images were obtained on the technologist workstation. In addition, thin section, high resolution reconstruction, targeted reformatted images through the thoracic and lumbar spine were obtained with coronal and sagittal high resolution reformatted images as well. This CT examination was performed using dose optimization techniques as appropriate, variously including the following: *Automated exposure control *Adjustment of mA and/or kV according to patient size (this includes techniques or standardized protocols for targeted exams where dose is matched to indication/reason for exam; i.e. extremities or head) *Use of iterative reconstruction technique Total exam dose-length product 653 mGy-cm FINDINGS: CHEST: VASCULAR: The aorta is normal; no evidence of dissection, aneurysm, or traumatic aortic injury. The central pulmonary arteries enhance normally. 2 vessel branching pattern of the aortic arch with common trunk to the innominate and left carotid. AORTIC ISTHMUS: Normal. MEDIASTINUM: Heart size normal. A TAVR is present. No mediastinal fluid or hematoma. No hilar or mediastinal lymphadenopathy. LUNG AND PLEURA: Rib fractures are present involving the seventh through ninth right posterolateral ribs. There is an associated right-sided pleural effusion present with associated right lower lobe atelectasis. No evidence of active extravasation or bleeding is seen. No pneumothorax. Chronic bronchiectatic scarring present adjacent to the mediastinum in the right upper lobe. No suspicious lung masses are seen. The left lung is clear. No pleural effusion is present on the left. CHEST WALL/AXILLA: Please see discussion regarding right-sided rib fractures above. The axilla appears unremarkable. A defibrillator is present in the left chest wall with single lead at the right ventricular apex. ABDOMEN/PELVIS : LIVER : The liver is normal in size, shape, and attenuation. No focal hepatic lesion or biliary ductal dilatation is present. A large ovoid calcified mass is present just below the gastrohepatic ligament. This appears chronic but no prior imaging is present. It is certainly not related to trauma. GALLBLADDER, AND BILIARY TREE The gallbladder is unremarkable with no evidence of radiopaque gallstones, gallbladder wall thickening, or obvious pericholecystic inflammatory changes. PANCREAS: Normal; no mass or surrounding fluid. SPLEEN: Status post splenectomy. ADRENAL GLANDS: Normal; no mass. KIDNEYS AND URETERS: The kidneys are normal in size, shape, and attenuation. No hydronephrosis, hydroureter, or calculi. URINARY BLADDER: No focal mass or wall thickening seen. No bladder calculi. GASTROINTESTINAL TRACT: Stomach and small bowel non-dilated. No colonic wall thickening or pericolonic inflammatory changes. Normal appendix. VASCULAR STRUCTURES: There is no evidence of aortic or iliac injury. The inferior vena cava is intact. The left renal vein is retroaortic. ACTIVE BLEEDING: None seen LYMPH NODES: No lymphadenopathy. The aorta demonstrates mild calcific atherosclerotic plaque. No aneurysm. PELVIC VISCERA: Moderate BPH. FREE FLUID: None. ABDOMINAL WALL: No significant hernia is appreciated. Suture material present in the midline. OSSEOUS STRUCTURES : Rib fractures are present as described above. No clavicle or scapula fracture. No sternal fracture seen. Normal sagittal alignment of the thoracic and lumbar spine. Vertebral body and disc heights are maintained; no compression fracture. Posterior elements intact. No sacral or pelvic fracture, The visualized hips are intact but 3 screws are present on the left.. CT/CT abdomen pelvis w con IMPRESSION: No evidence of a traumatic injury other than the 3 right-sided rib fractures along with an associated right pleural effusion. Other incidental findings described above.
--- NOTE | 2021-06-17 18:02 | ECG_ITS ---
Test Reason : SOB Blood Pressure : / mmHG Vent. Rate : 105 BPM Atrial Rate : 105 BPM P-R Int : 142 ms QRS Dur : 140 ms QT Int : 414 ms P-R-T Axes : 085 246 066 degrees QTc Int : 547 ms Atrial-sensed ventricular-paced rhythm Abnormal ECG When compared with ECG of 13-JAN-2021 08:34, Vent. rate has increased BY 11 BPM Referred By: Edilson Arteaga Electronically Signed By:Jairo Valdez
[2021-06-17 18:03] VITALS: BP 145/73; PULSE 104; RESP 18; TEMP 36.5; O2SAT 100; BMI 21.6
--- NOTE | 2021-06-17 18:10 | ED.CHESTPAIN ---
HPI - Chest Pain General Chief Complaint: Dyspnea Stated Complaint: sob Time Seen by Provider: 06/17/21 18:02 Source: patient Mode of arrival: ambulatory Limitations: no limitations History of Present Illness HPI narrative: Apparently patient slipped on wet leaves 5 days ago landed on his right side had pain in the ribs area had the x-ray done today by PCP which showed right 629 rib fracture without significant displacement and slight right-sided pleural effusion which was old. Today while working up stairs patient noticed increased pain with cough and shortness of breath felt very weak and came to the ER. Patient not on any anticoagulant no abdominal pain on arrival patient blood pressure was 145/73 pulse rate 104 saturating 100% at room air with respiratory rate of 18 Related Data Home Medications Medication Instructions Recorded Confirmed furosemide 20 mg tablet mg PO 05/05/21 06/16/21 Previous Rx's Medication Instructions Recorded aspirin 81 mg tablet,delayed 81 mg PO DAILY #90 tab 07/09/20 release eplerenone 25 mg tablet 25 mg PO DAILY #90 tab 07/09/20 ferrous sulfate 325 mg (65 mg 325 mg PO DAILY 90 Days #90 tab 03/17/21 iron) tablet levothyroxine 137 mcg tablet 137 mcg PO DAILY 30 Days #30 tab 05/06/21 codeine 10 mg-guaifenesin 100 mg/5 10 ml PO Q4-6H PRN #237 ml 06/17/21 mL oral liquid (Guaifenesin AC) lidocaine 4 % topical patch 1 patch TOPICAL DAILY PRN #30 ea 06/17/21 oxycodone 5 mg tablet 5 mg PO Q6H PRN #30 tab 06/17/21 Allergies Allergy/AdvReac Type Severity Reaction Status Date / Time No Known Allergies Allergy Verified 06/17/21 18:03 [No Known Allergies*] Review of Systems Review of Systems: Yes all other systems are reviewed and are negative [facility] Past Medical History Medical History Anemia Aortic stenosis, severe Cardiac resynchronization therapy defibrillator (BUS AIDE-D) in place Complete heart block Congestive heart failure COVID-19 vaccine series completed 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HFrEF (heart failure with reduced ejection fraction) Hodgkins lymphoma Hypocalcemia Hypotension (arterial) Hypothyroidism LBBB (left bundle branch block) Leukocytosis Low TSH level Multinodular thyroid NICM (nonischemic cardiomyopathy) Osteoporosis Pacemaker Pulmonary embolism Recurrent pleural effusion on right Rib fracture Rib pain Right hip pain Shortness of breath Sinus tachycardia Vitamin D deficiency Surgical History H/O splenectomy History of appendectomy History of cardiac pacemaker History of esophagogastroduodenoscopy (EGD) History of hip surgery Hx of colonoscopy S/P TAVR (transcatheter aortic valve replacement) (~10/29/20) Family History Family History Father Healthy adult male Mother Bladder cancer Social History Social History Household Members: Family Housing: House Are you a primary resident care coordinator to a significant other at home: No Do you presently have visiting nurse or other home services: No Alcohol intake: current Alcohol intake frequency: holidays/special occasions only Patient Tobacco Use Status: Never used Tobacco e-Cigarette/Vaping Use: Never Used Second Hand Smoke Exposure: No Advance Directives: No Advance Directives Information Provided: No Advance Directives Date on File: 01/25/21 service: Yes Current occupational status: employed Current occupational exposures/hazards: No Physical Exam Vital Signs: Vital Signs: Last Vital Signs Temp 97.7 F 06/17/21 18:03 Pulse 86 06/17/21 21:29 Resp 18 06/17/21 21:29 BP 103/63 06/17/21 21:29 Pulse Ox 99 06/17/21 21:29 BMI result Body Mass Index 21.6 Appearance: Alert. Oriented X3. In moderate distress Eyes: No pallor or icterus ENT: Pharynx normal. Oral Mucosa moist Neck: Normal inspection. Neck supple. CVS: Normal heart rate and rhythm. Pulses normal. Respiratory: No respiratory distress. Equal air entry bilateral, no wheezing/rales/rhonchi significant tenderness to touch on right lower ribs and mid axillary area no crepitus Abdomen: Soft and nontender. Bowel sounds are present, no mass palpable, no CVA tenderness Skin: Skin warm and dry. Normal skin color. Normal skin turgor. Extremities: No lower extremity edema. No calf tenderness Neuro: Oriented X 3. No motor deficit. MDM - Chest Pain MDM Narrative Medical decision making narrative: CT scan of the chest and abdomen showed right 7th to 9th rib fracture in posterolateral area without significant lung injury no pneumothorax slight amount of right pleural effusion which has been seen in the old x-rays abdomen CT scan was negative. Patient tolerated pain well after cough syrup and morphine would like to go home will discharge him on Lidoderm patch and oxycodone advised to report to the ER if acute worsening of the pain or shortness of breath Lab Data Attestation: I reviewed the patient's lab results. Result diagrams: 06/17/21 18:26 06/17/21 18:26 Labs: Lab Results 06/17/21 06/17/21 06/17/21 Range/Units 18:26 18:26 18:26 WBC 9.4 (4.8-10.8) X10*3/uL RBC 3.94 L (4.60-5.80) X10*6/uL Hgb 11.2 L (14.0-18.0) g/dl Hct 34.3 L (42.0-52.0) % MCV 87.1 (80.0-98.0) fL MCH 28.4 (27.0-33.0) pg MCHC 32.7 (31.0-36.0) g/dl RDW 18.9 H (11.0-16.0) % Plt Count 391 (160-400) X10*3/uL MPV 10.2 (9.4-12.4) fL Immature Gran % (Auto) 0.4 (0.0-0.4) % Neut % (Auto) 76.1 H (45-73) % Lymph % (Auto) 10.1 L (20-40) % [place]bert % (Auto) 11.6 H (2-11) % Eos % (Auto) 1.2 (0-4) % Baso % (Auto) 0.6 (0-2) % Lymph # (Auto) 1.0 L (1.2-4.9) X10*3/uL [place] # (Auto) 1.1 (0.1-1.2) X10*3/uL Eos # (Auto) 0.1 (0.0-0.4) X10*3/uL Baso # (Auto) 0.1 (0.0-0.2) X10*3/uL Abs Immat Gran (auto) 0.04 H (0.00-0.03) X10*3/uL Absolute Neuts (auto) 7.2 (2.0-8.3) x10*3/uL Absolute Nucleated RBC 0.000 (0.0-0.012) X10*3/uL Nucleated RBC % (auto) 0.0 (0.0-0.2) /100WBC PT 14.2 H (9.9-13.0) SEC INR 1.2 H (0.9-1.1) APTT 58.3 H (24.1-38.0) SEC Sodium 140 (135-145) mmol/L Potassium 4.2 (3.3-5.1) mmol/L Chloride 102 (96-108) mmol/L Carbon Dioxide 28 (22-29) mmol/L Anion Gap 14 (12-20) BUN 18 H (9-16) mg/dL Creatinine 0.78 (0.5-1.4) mg/dL Estim Creat Clear Calc 102.6 Estimated GFR > 60 Random Glucose 99 (60-115) mg/dL Calcium 9.1 (8.4-10.2) mg/dL Total Bilirubin 0.4 (0.0-1.0) mg/dL Direct Bilirubin 0.2 (0.0-0.5) mg/dL AST 17 (5-37) U/L ALT 10 (0-40) U/L Alkaline Phosphatase 63 (39-117) U/L Troponin I High Sens (<3.5-35.0) ng/L Total Protein 7.0 (6.5-8.0) g/dL Albumin 3.7 (3.5-5.0) g/dL 06/17/21 Range/Units 18:26 WBC (4.8-10.8) X10*3/uL RBC (4.60-5.80) X10*6/uL Hgb (14.0-18.0) g/dl Hct (42.0-52.0) % MCV (80.0-98.0) fL MCH (27.0-33.0) pg MCHC (31.0-36.0) g/dl RDW (11.0-16.0) % Plt Count (160-400) X10*3/uL MPV (9.4-12.4) fL Immature Gran % (Auto) (0.0-0.4) % Neut % (Auto) (45-73) % Lymph % (Auto) (20-40) % Colbert % (Auto) (2-11) % Eos % (Auto) (0-4) % Baso % (Auto) (0-2) % Lymph # (Auto) (1.2-4.9) X10*3/uL [place]bert # (Auto) (0.1-1.2) X10*3/uL Eos # (Auto) (0.0-0.4) X10*3/uL Baso # (Auto) (0.0-0.2) X10*3/uL Abs Immat Gran (auto) (0.00-0.03) X10*3/uL Absolute Neuts (auto) (2.0-8.3) x10*3/uL Absolute Nucleated RBC (0.0-0.012) X10*3/uL Nucleated RBC % (auto) (0.0-0.2) /100WBC PT (9.9-13.0) SEC INR (0.9-1.1) APTT (24.1-38.0) SEC Sodium (135-145) mmol/L Potassium (3.3-5.1) mmol/L Chloride (96-108) mmol/L Carbon Dioxide (22-29) mmol/L Anion Gap (12-20) BUN (9-16) mg/dL Creatinine (0.5-1.4) mg/dL Estim Creat Clear Calc Estimated GFR Random Glucose (60-115) mg/dL Calcium (8.4-10.2) mg/dL Total Bilirubin (0.0-1.0) mg/dL Direct Bilirubin (0.0-0.5) mg/dL AST (5-37) U/L ALT (0-40) U/L Alkaline Phosphatase (39-117) U/L Troponin I High Sens 3.8 (<3.5-35.0) ng/L Total Protein (6.5-8.0) g/dL Albumin (3.5-5.0) g/dL Discharge Plan Discharge Clinical Impression: Ribs, multiple fractures Qualifiers: Encounter type: initial encounter Fracture type: closed Laterality: right Qualified Code(s): S22.41XA - Multiple fractures of ribs, right side, initial encounter for closed fracture Patient Disposition: Home, Self-Care Instructions: Rib Fracture (ED) Additional Instructions: Take pain medication as advised Report to the ER if increased pain /sudden shortness of breath Prescriptions: New oxycodone 5 mg tablet 5 mg PO Q6H PRN (Reason: Pain (Scale Score 7-10)) Qty: 30 RF: 0 lidocaine 4 % adhesive patch,medicated 1 patch topical DAILY PRN (Reason: pain) Qty: 30 RF: 0 codeine-guaifenesin [Guaifenesin AC] 10-100 mg/5 mL liquid 10 ml PO Q4-6H PRN (Reason: cough) Qty: 237 RF: 0 No Action ferrous sulfate 325 mg (65 mg iron) tablet 325 mg PO DAILY 90 Days Qty: 90 RF: 1 levothyroxine 137 mcg tablet 137 mcg PO DAILY 30 Days Qty: 30 RF: 3 eplerenone 25 mg tablet 25 mg PO DAILY Qty: 90 RF: 4 aspirin 81 mg tablet,delayed release (DR/EC) 81 mg PO DAILY Qty: 90 RF: 4 furosemide 20 mg tablet PO RF: 0 Stand Alone Forms: Work/School Release Interventions: ED Discharge Assessment Last Done: 06/17/21 23:24
[2021-06-17] MEDS: ondansetron HCL 4 MG/2 ML VIAL IVPUSH (18:12)
[2021-06-17] MEDS: Morphine Sulfate 4 MG/ML CARTRIDGE IVPUSH ×2 (18:14→21:31)
[2021-06-17 18:27] VITALS: BP 120/70; PULSE 97; RESP 13; O2SAT 100
[2021-06-17 18:45] LABS: MANUAL DIFF FLAG NO
[2021-06-17 18:47] LABS: Basophils Absolute Auto 0.1 X10*3/uL (0.0-0.2); Basophils Percent Auto 0.6 % (0-2); Eosinophils Absolute Auto 0.1 X10*3/uL (0.0-0.4); Eosinophils Percent Auto 1.2 % (0-4); Hematocrit 34.3 % (42.0-52.0); Hemoglobin 11.2 g/dl (14.0-18.0); Imm Gran Abs Auto 0.04 X10*3/uL (0.00-0.03); Imm Gran Pct Auto 0.4 % (0.0-0.4); Lymphocytes Percent Auto 10.1 % (20-40); Mean Corpuscular HGB Conc 32.7 g/dl (31.0-36.0); Mean Corpuscular Hemoglobin 28.4 pg (27.0-33.0); Mean Corpuscular Volume 87.1 fL (80.0-98.0); Mean Platelet Volume 10.2 fL (9.4-12.4); Monocytes Absolute Auto 1.1 X10*3/uL (0.1-1.2); Monocytes Percent Auto 11.6 % (2-11); Neutrophils Absolute Auto 7.2 x10*3/uL (2.0-8.3); Neutrophils Percent Auto 76.1 % (45-73); Platelet Count 391 X10*3/uL (160-400); Red Blood Count 3.94 X10*6/uL (4.60-5.80); Red Cell Distribution Width 18.9 % (11.0-16.0); White Blood Count 9.4 X10*3/uL (4.8-10.8)
[2021-06-17 18:53] LABS: INTERNATIONAL NORM RATIO 1.2 (0.9-1.1); Prothrombin Time 14.2 SEC (9.9-13.0)
[2021-06-17 18:56] LABS: Partial Thromboplastin Time 58.3 SEC (24.1-38.0)
[2021-06-17 19:01] LABS: Alanine Aminotransferase 10 U/L (0-40); Albumin Level 3.7 g/dL (3.5-5.0); Alkaline Phosphatase 63 U/L (39-117); Anion Gap 14 (12-20); Aspartate Amino Transferase 17 U/L (5-37); Bilirubin Direct 0.2 mg/dL (0.0-0.5); Bilirubin Total 0.4 mg/dL (0.0-1.0); Blood Urea Nitrogen 18 mg/dL (9-16); Calcium 9.1 mg/dL (8.4-10.2); Carbon Dioxide 28 mmol/L (22-29); Chloride 102 mmol/L (96-108); Creatinine Clr Calc Pharmacy 102.6; Estimated Glomerular Filt Rate > 60; Glucose Random 99 mg/dL (60-115); Potassium 4.2 mmol/L (3.3-5.1); Sodium 140 mmol/L (135-145)
[2021-06-17 19:05] LABS: Troponin-I High Sensitivity 3.8 ng/L (<3.5-35.0)
[2021-06-17 19:06] VITALS: BP 109/68; PULSE 97; RESP 19; O2SAT 97
[2021-06-17] MEDS: iohexoL 350 MG/ML 100 ML INFUS..BTL IV (19:27)
[2021-06-17] MEDS: guaiFEN/Codeine SF 200/20/10ML 10 ML LIQUID PO (19:34)
[2021-06-17 21:29] VITALS: BP 103/63; PULSE 86; RESP 18; O2SAT 99
[2021-06-17] MEDS: oxyCODONE HCl Immed Release 5 MG TABLET 10 MG PO (22:51)
[2021-06-17] MEDS: Lidocaine 4 % Patch ADH..PATCH 1 PATCH TRANSDERMA (22:51)
--- NOTE | 2021-06-17 23:24 | PC.NURSE ---
PT GIVEN INCENTIVE SPIROMETER WITH TEACHING
== END 2021-06-17 23:30 | disposition home or self-care (01) ==
PROVIDERS: Emergency Provider Internal Medicine
DX: R05.9 Cough, unspecified (principal); S22.41XA Multiple fractures of ribs, right side, initial encounter for closed fracture; X58.XXXA Exposure to other specified factors, initial encounter; R06.02 Shortness of breath; J90 Pleural effusion, not elsewhere classified; Y93.9 Activity, unspecified; Y92.238 Other place in hospital as the place of occurrence of the external cause; Y99.9 Unspecified external cause status; Z95.0 Presence of cardiac pacemaker
CPT/HCPCS: 36415; 71260; 74177; 80048; 80076; 84484; 85025; 85610; 85730; 93005; 96374; 96375; 96376; 99284; J2270; J2405; Q9967

== ENCOUNTER 2021-06-24 13:23 | Outpatient (REF) | payer OTHER, SELFPAY ==
--- NOTE | ~2021-06-24 | XR_ITS ---
EXAMINATION: XR RIBS, LEFT CLINICAL INFORMATION: Fracture of 1 rib, unspecified side, initial encounter. COMPARISON: CT chest 06/17/2021. TECHNIQUE: AP and bilateral oblique views of the left ribs. FINDINGS: AICD device and 3 leads, as well as TAVR device are again noted. No left-sided rib fractures are identified. The left lung is clear. XR/XR ribs LT 2V IMPRESSION: No left-sided rib fractures.
== END 2021-06-24 13:24 | disposition home or self-care (01) ==
LOC: HO.XRAY 13:23
PROVIDERS: PCP Internal Medicine; Visit Provider Internal Medicine
DX: S22.39XA Fracture of one rib, unspecified side, initial encounter for closed fracture (principal)
CPT/HCPCS: 71100

== ENCOUNTER 2021-07-16 09:43 | Outpatient (REF) | payer OTHER, SELFPAY ==
--- NOTE | ~2021-07-16 | XR_ITS ---
EXAMINATION: XR PELVIS CLINICAL INFORMATION: Pain COMPARISON: Previous x-ray April 2021 TECHNIQUE: AP view of the pelvis. FINDINGS: There are 3 screws seen in the left proximal femur that appear unchanged. There is an old healed or healing left femoral neck fracture that appears similar to previous exam. No acute fracture, dislocation or evidence of hardware loosening is seen. There is mild arthritis at both hip joints. Bones of the pelvis are unremarkable. There are surgical clips in the right lower quadrant/pelvis. Soft tissues are otherwise unremarkable.. XR/XR pelvis 1-2V IMPRESSION: ORIF of left femoral neck fracture similar to April 2021 exam. Mild bilateral hip arthritis.
== END 2021-07-16 09:44 | disposition home or self-care (01) ==
LOC: HO.HOSX 09:43
PROVIDERS: Visit Provider Orthopaedic Surgery
DX: S72.90XD Unspecified fracture of unspecified femur, subsequent encounter for closed fracture with routine healing (principal)
CPT/HCPCS: 72170

== ENCOUNTER 2021-07-17 14:14 | Outpatient (REF) | payer OTHER, SELFPAY ==
[2021-07-17 14:50] LABS: COVID-19 Test Negative (Negative)
== END 2021-07-17 14:15 | disposition home or self-care (01) ==
LOC: HO.LAB 14:14
PROVIDERS: PCP Student in an Organized Health Care Education/Training Program; Visit Provider Internal Medicine
DX: Z20.822 Contact with and (suspected) exposure to COVID-19 (principal)
CPT/HCPCS: 87635; C9803

== ENCOUNTER → 2021-08-23 14:35 | Outpatient (BNVA) | payer OTHER, SELFPAY | PROVIDERS: PCP Internal Medicine; Referring Provider Internal Medicine; Visit Provider Internal Medicine ==

== ENCOUNTER 2021-09-16 08:39 | Outpatient (REF) | payer OTHER, SELFPAY ==
--- NOTE | 2021-09-16 09:39 | PM.OP ---
Brief Operative Note Date of Service: 09/16/21 Pre-op diagnosis: Multinodular Thyroid Procedure: This is doctor Fatoumata Hathaway. This is an ultrasound-guided fine-needle aspiration report. Date of Examination: Indication: Multinodular Thyroid Porcedure: Procedure was explained to the patient. Alternatives, the risk and benefits were discussed. Written consent was obtained. A time-out was also obtained. After sterile preparation, fine-needle aspiration of a right upper pole 1.2 cm thyroid nodule was performed using direct ultrasound guidance to confirm accurate needle placement. Four aspirations were made using 27 gauge needles. Samples were submitted for cytology. One pass was dedicated for [employer] Gene sequencing nursery attendant testing. The patient tolerated the procedure well. Aftercare instructions were provided. Impression: Uncomplicated fine needle aspiration biopsy of a right upper pole 1.2 cm thyroid nodule under ultrasound guidance. Surgeon: Fatoumata Hathaway, DO Was an [employer] used for this Procedure?: No Estimated blood loss (mL): 0
== END 2021-09-16 08:40 | disposition home or self-care (01) ==
LOC: HO.US 08:39
PROVIDERS: Visit Provider Internal Medicine
DX: E04.2 Nontoxic multinodular goiter (principal)
CPT/HCPCS: 10005; 88172; 88173; 88177

== ENCOUNTER 2021-09-20 13:45 | Outpatient (REF) | payer OTHER, SELFPAY ==
[2021-09-20 16:14] LABS: Hematocrit 38.1 % (42.0-52.0); Hemoglobin 12.5 g/dl (14.0-18.0); Mean Corpuscular HGB Conc 32.8 g/dl (31.0-36.0); Mean Corpuscular Hemoglobin 29.9 pg (27.0-33.0); Mean Corpuscular Volume 91.1 fL (80.0-98.0); Red Blood Count 4.18 X10*6/uL (4.60-5.80); Red Cell Distribution Width 16.2 % (11.0-16.0); White Blood Count 10.2 X10*3/uL (4.8-10.8)
[2021-09-20 16:32] LABS: Alanine Aminotransferase 11 U/L (0-40); Alkaline Phosphatase 68 U/L (39-117); Anion Gap 15 (12-20); Aspartate Amino Transferase 24 U/L (5-37); Bilirubin Direct 0.5 mg/dL (0.0-0.5); Blood Urea Nitrogen 20 mg/dL (9-16); Calcium 9.3 mg/dL (8.4-10.2); Carbon Dioxide 30 mmol/L (22-29); Chloride 99 mmol/L (96-108); Estimated Glomerular Filt Rate > 60; Glucose Random 93 mg/dL (60-115); Potassium 4.3 mmol/L (3.3-5.1); Sodium 140 mmol/L (135-145); Total Protein 7.7 g/dL (6.5-8.0)
[2021-09-20 18:14] LABS: Platelet Count 2 X10*3/uL (160-400)
== END 2021-09-20 13:46 | disposition home or self-care (01) ==
LOC: HO.LAB 13:45
PROVIDERS: PCP Internal Medicine; Referring Provider Internal Medicine; Visit Provider Internal Medicine
DX: I42.8 Other cardiomyopathies (principal); I44.7 Left bundle-branch block, unspecified; I95.0 Idiopathic hypotension; R21 Rash and other nonspecific skin eruption; Z95.2 Presence of prosthetic heart valve; Z79.899 Other long term (current) drug therapy; Z79.82 Long term (current) use of aspirin; Z95.810 Presence of automatic (implantable) cardiac defibrillator
CPT/HCPCS: 36415; 80048; 80076; 85027; 93005

== ENCOUNTER 2021-09-20 18:23 | Inpatient (IN) | payer OTHER, SELFPAY ==
--- NOTE | ~2021-09-20 | CT_ITS ---
EXAMINATION: CT HEAD WITHOUT CONTRAST CLINICAL INFORMATION: Critical thrombocytopenia. COMPARISON: CT scan of the head 01/13/2021. TECHNIQUE: Contiguous axial imaging was performed from the skull base to vertex without intravenous administration of contrast. This CT examination was performed using dose optimization techniques as appropriate, variously including the following: *Automated exposure control *Adjustment of mA and/or kV according to patient size (this includes techniques or standardized protocols for targeted exams where dose is matched to indication/reason for exam; i.e. extremities or head) *Use of iterative reconstruction technique DLP: 807 mGy-cm FINDINGS: There is no acute intracranial hemorrhage or abnormal extra-axial collection. No intracranial mass effect or midline shift. Lateral and third ventricles are normal. No hydrocephalus. Tidwell-white matter differentiation is observed and there is no evidence of acute territorial infarct. The calvarium and skull base are intact. There is partial opacification of the mastoid air cells and middle ear cavities. Mild paranasal sinus disease primarily affecting the ethmoid air cells. CT/CT head/brain wo con IMPRESSION: Unremarkable examination. Specifically no evidence of acute territorial infarct or hemorrhage.
[2021-09-20 18:51] VITALS: BP 109/58; PULSE 80; RESP 18; TEMP 37.4; O2SAT 98; BMI 21.3
[2021-09-20 19:18] LABS: MANUAL DIFF FLAG NO
[2021-09-20 19:19] LABS: Basophils Absolute Auto 0.1 X10*3/uL (0.0-0.2); Basophils Percent Auto 0.7 % (0-2); Eosinophils Absolute Auto 0.2 X10*3/uL (0.0-0.4); Eosinophils Percent Auto 1.5 % (0-4); Hematocrit 36.2 % (42.0-52.0); Imm Gran Abs Auto 0.04 X10*3/uL (0.00-0.03); Imm Gran Pct Auto 0.4 % (0.0-0.4); Lymphocytes Absolute Auto 0.9 X10*3/uL (1.2-4.9); Lymphocytes Percent Auto 8.9 % (20-40); Mean Corpuscular HGB Conc 33.1 g/dl (31.0-36.0); Mean Corpuscular Hemoglobin 30.3 pg (27.0-33.0); Mean Corpuscular Volume 91.4 fL (80.0-98.0); Monocytes Absolute Auto 1.2 X10*3/uL (0.1-1.2); Monocytes Percent Auto 11.4 % (2-11); Neutrophils Absolute Auto 7.8 x10*3/uL (2.0-8.3); Neutrophils Percent Auto 77.1 % (45-73); Red Blood Count 3.96 X10*6/uL (4.60-5.80); Red Cell Distribution Width 16.1 % (11.0-16.0); SCAN SMEAR FLAG 1; White Blood Count 10.1 X10*3/uL (4.8-10.8)
--- NOTE | 2021-09-20 19:24 | ED_ITS ---
HPI - General Adult General Chief complaint: Recheck/Abnormal Lab/Rx Stated complaint: internal bleeding per md Time Seen by Provider: 09/20/21 19:19 Source: patient Mode of arrival: ambulatory Limitations: no limitations History of Present Illness HPI narrative: Patient is 60 years old with history of Hodgkin's lymphoma aortic stenosis status post TAVR history of pulmonary embolism and chronic anemia felt weak and dizzy slightly today had a follow-up appointment with garment alteration examiner who noticed some petechiae rash ordered the labs which showed 2K of platelets patient denied any gum bleeding or rectal bleeding has history of non-Hodgkin lymphoma in remission more than 20 years ago patient was started on Ivabradine 8 days ago . Patient denies any headache no loss of consciousness no vomiting no abdominal pa in Related Data Home Medications Medication Instructions Recorded Confirmed furosemide 40 mg tablet 40 mg PO DAILY@1700 08/23/21 09/20/21 furosemide 40 mg tablet 60 mg PO DAILY 09/20/21 09/20/21 Previous Rx's Medication Instructions Recorded ferrous sulfate 325 mg (65 mg 325 mg PO DAILY 90 Days #90 tab 03/17/21 iron) tablet levothyroxine 150 mcg tablet 150 mcg PO DAILY 30 Days #30 tab 07/07/21 aspirin 81 mg tablet,delayed 81 mg PO DAILY #90 tab 08/19/21 release eplerenone 25 mg tablet 25 mg PO DAILY #90 tab 08/19/21 ivabradine 5 mg tablet (Corlanor) 5 mg PO BID 90 Days #180 tab 09/02/21 Allergies Allergy/AdvReac Type Severity Reaction Status Date / Time No Known Allergies Allergy Verified 09/20/21 14:16 [No Known Allergies*] Review of Systems Review of Systems: Yes all other systems are reviewed and are negative [facility] Past Medical History Medical History Anemia Aortic stenosis, severe Cardiac resynchronization therapy defibrillator (AG SERVICE MANAGER-D) in place Complete heart block Congestive heart failure COVID-19 vaccine series completed [place] syndrome HFrEF (heart failure with reduced ejection fraction) Hodgkins lymphoma Hypocalcemia Hypotension (arterial) Hypothyroidism LBBB (left bundle branch block) Leukocytosis Low TSH level Multinodular thyroid Multinodular thyroid NICM (nonischemic cardiomyopathy) Osteoporosis Pacemaker Pulmonary embolism Recurrent pleural effusion on right Rib fracture Rib pain Right hip pain Shortness of breath Sinus tachycardia Vitamin D deficiency Surgical History H/O splenectomy History of appendectomy History of cardiac pacemaker History of esophagogastroduodenoscopy (EGD) History of hip surgery Hx of colonoscopy S/P TAVR (transcatheter aortic valve replacement) Family History Family History Father Healthy adult male Mother Bladder cancer Social History Social History Household Members: Family Housing: House Are you a primary doggy daycare activities director to a significant other at home: No Do you presently have visiting nurse or other home services: No Alcohol intake: current Alcohol intake frequency: holidays/special occasions only Patient Tobacco Use Status: Never used Tobacco e-Cigarette/Vaping Use: Never Used Second Hand Smoke Exposure: No Advance Directives: No Advance Directives Information Provided: No Advance Directives Date on File: 01/25/21 service: Yes Current occupational status: employed Current occupational exposures/hazards: No Physical Exam ED Vital Signs: Vital Signs - 24 hr 09/20/21 18:51 09/20/21 19:30 Temperature 99.3 F Pulse Rate 80 87 Respiratory Rate 18 13 Blood Pressure 109/58 L 106/60 Pulse Oximetry 98 96 BMI result Body Mass Index 21.3 Appearance: Alert. Oriented X3. No acute distress. Eyes: Pale+ ENT: Pharynx normal. Oral Mucosa moist Neck: Normal inspection. Neck supple. CVS: Normal heart rate and rhythm. Pulses normal. Respiratory: No respiratory distress. Equal air entry bilateral, no wheezing/rales/rhonchi Abdomen: Soft and nontender. Bowel sounds are present, no mass palpable, no CVA tenderness Skin: Skin warm and dry. Normal skin color. Normal skin turgor. Petechial rash in lower extremities Extremities: No lower extremity edema. No calf tenderness Neuro: Oriented X 3. No motor deficit. No sensory deficit.No cerebellar signs , cranial nerves II-XII intact Medical Decision Making MDM Narrative Medical decision making narrative: Patient with critical thrombocytopenia etiology not very clear patient is started on Ivabradine new medication 8 days ago but no known side effect of thrombocytopenia from this medicine per literature. Case discussed Dr. Merchant advised platelet transfusion plan to do bone marrow biopsy tomorrow advised to give Decadron 1 dose at this time at this time there is no signs of any active bleeding vitals are stable head CT is negative Lab Data Lab results reviewed: Yes I reviewed the patient's lab results. Result diagrams: 09/20/21 19:11 09/20/21 19:11 Labs: Lab Results 09/20/21 09/20/21 09/20/21 Range/Units 19:11 19:11 19:11 WBC 10.1 (4.8-10.8) X10*3/uL RBC 3.96 L (4.60-5.80) X10*6/uL Hgb 12.0 L (14.0-18.0) g/dl Hct 36.2 L (42.0-52.0) % MCV 91.4 (80.0-98.0) fL MCH 30.3 (27.0-33.0) pg MCHC 33.1 (31.0-36.0) g/dl RDW 16.1 H (11.0-16.0) % Plt Count 2 L* (160-400) X10*3/uL MPV Not Reportable Immature Gran % (Auto) 0.4 (0.0-0.4) % Neut % (Auto) 77.1 H (45-73) % Lymph % (Auto) 8.9 L (20-40) % [place] % (Auto) 11.4 H (2-11) % Eos % (Auto) 1.5 (0-4) % Baso % (Auto) 0.7 (0-2) % Lymph # (Auto) 0.9 L (1.2-4.9) X10*3/uL [place] # (Auto) 1.2 (0.1-1.2) X10*3/uL Eos # (Auto) 0.2 (0.0-0.4) X10*3/uL Baso # (Auto) 0.1 (0.0-0.2) X10*3/uL Abs Immat Gran (auto) 0.04 H (0.00-0.03) X10*3/uL Absolute Neuts (auto) 7.8 (2.0-8.3) x10*3/uL Absolute Nucleated RBC 0.000 (0.0-0.012) X10*3/uL Nucleated RBC % (auto) 0.0 (0.0-0.2) /100WBC PT (9.9-13.0) SEC INR (0.9-1.1) APTT (24.1-38.0) SEC Fibrinogen D-Dimer High Sensitivty NG/ML Sodium 138 (135-145) mmol/L Potassium 3.9 (3.3-5.1) mmol/L Chloride 99 (96-108) mmol/L Carbon Dioxide 32 H (22-29) mmol/L Anion Gap 11 L (12-20) BUN 20 H (9-16) mg/dL Creatinine 0.80 (0.5-1.4) mg/dL Estim Creat Clear Calc 98.7 Estimated GFR > 60 Random Glucose 136 H D (60-115) mg/dL Calcium 8.9 (8.4-10.2) mg/dL Total Bilirubin 0.8 (0.0-1.0) mg/dL AST 22 (5-37) U/L ALT 11 (0-40) U/L Alkaline Phosphatase 65 (39-117) U/L Total Protein 7.2 (6.5-8.0) g/dL Albumin 3.8 (3.5-5.0) g/dL Blood Type A Positive Antibody Screen NEGATIVE 09/20/21 09/20/21 Range/Units 19:58 19:58 WBC (4.8-10.8) X10*3/uL RBC (4.60-5.80) X10*6/uL Hgb (14.0-18.0) g/dl Hct (42.0-52.0) % MCV (80.0-98.0) fL MCH (27.0-33.0) pg MCHC (31.0-36.0) g/dl RDW (11.0-16.0) % Plt Count (160-400) X10*3/uL MPV Immature Gran % (Auto) (0.0-0.4) % Neut % (Auto) (45-73) % Lymph % (Auto) (20-40) % [place] % (Auto) (2-11) % Eos % (Auto) (0-4) % Baso % (Auto) (0-2) % Lymph # (Auto) (1.2-4.9) X10*3/uL [place] # (Auto) (0.1-1.2) X10*3/uL Eos # (Auto) (0.0-0.4) X10*3/uL Baso # (Auto) (0.0-0.2) X10*3/uL Abs Immat Gran (auto) (0.00-0.03) X10*3/uL Absolute Neuts (auto) (2.0-8.3) x10*3/uL Absolute Nucleated RBC (0.0-0.012) X10*3/uL Nucleated RBC % (auto) (0.0-0.2) /100WBC PT 15.1 H (9.9-13.0) SEC INR 1.3 H (0.9-1.1) APTT 76.7 H* (24.1-38.0) SEC Fibrinogen Cancelled 619 D-Dimer High Sensitivty 2522 NG/ML Sodium (135-145) mmol/L Potassium (3.3-5.1) mmol/L Chloride (96-108) mmol/L Carbon Dioxide (22-29) mmol/L Anion Gap (12-20) BUN (9-16) mg/dL Creatinine (0.5-1.4) mg/dL Estim Creat Clear Calc Estimated GFR Random Glucose (60-115) mg/dL Calcium (8.4-10.2) mg/dL Total Bilirubin (0.0-1.0) mg/dL AST (5-37) U/L ALT (0-40) U/L Alkaline Phosphatase (39-117) U/L Total Protein (6.5-8.0) g/dL Albumin (3.5-5.0) g/dL Blood Type Antibody Screen Discharge Plan Discharge Clinical Impression: Acute idiopathic thrombocytopenic purpura Patient Disposition: Admitted As Inpatient
[2021-09-20 19:25] LABS: PLT ABN DIST 1; Platelet Count 2 X10*3/uL (160-400)
[2021-09-20 19:30] VITALS: BP 106/60; PULSE 87; RESP 13; O2SAT 96
[2021-09-20 19:33] LABS: Alanine Aminotransferase 11 U/L (0-40); Albumin Level 3.8 g/dL (3.5-5.0); Alkaline Phosphatase 65 U/L (39-117); Anion Gap 11 (12-20); Aspartate Amino Transferase 22 U/L (5-37); Bilirubin Total 0.8 mg/dL (0.0-1.0); Blood Urea Nitrogen 20 mg/dL (9-16); Calcium 8.9 mg/dL (8.4-10.2); Carbon Dioxide 32 mmol/L (22-29); Chloride 99 mmol/L (96-108); Creatinine Clr Calc Pharmacy 98.7; Estimated Glomerular Filt Rate > 60; Glucose Random 136 mg/dL (60-115); Potassium 3.9 mmol/L (3.3-5.1); Sodium 138 mmol/L (135-145); Total Protein 7.2 g/dL (6.5-8.0)
[2021-09-20] MEDS: dexAMETHasone sod phosphate 10 MG/ML VIAL IVPUSH (19:55)
[2021-09-20] MEDS: LORazepam 2 MG/ML VIAL 0.5 MG IVPUSH (20:08)
[2021-09-20 20:16] LABS: Fibrinogen 619 MG/DL (259-690); INTERNATIONAL NORM RATIO 1.3 (0.9-1.1); Prothrombin Time 15.1 SEC (9.9-13.0)
[2021-09-20 20:18] LABS: D Dimer High Sensitivity 2522 NG/ML
[2021-09-20 20:20] LABS: Partial Thromboplastin Time 76.7 SEC (24.1-38.0)
--- NOTE | 2021-09-20 20:57 | PHA.MEDREC ---
Addendum entered by Celena Terrazas, [facility] 09/20/21 21:01: PT REPORTS FUROSEMIDE BEING CHANGED TO 60 MG IN THE MORNING AND 40 MG IN THE EVENING BY DR. ORDONEZ. Original Note: Pharmacy Consult ? Medication Reconciliation Pharmacy has completed the medication reconciliation. Spoke with patient in ED who knew all medications.
--- NOTE | 2021-09-20 22:43 | PM.IMHP ---
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 Patient reported that for the past couple days he has been having shortness of breath and has taken extra dose of Lasix; has seen his regional sales engineer who did the written labs and noted to have incidental finding of very low platelets; also noted to have rash; setting Code to the ER for further evaluation. Patient denies any headaches blurry visions, chest pain or palpitations, denies any signs of infection or recent viral infections; denies any numbness tingling or focal weakness. Reports mild swelling of his ankles. Review of all other systems is negative except mentioned above ER course: Per ER team patient noted to have platelets of 2000. CT head showed no acute findings. Discussed with Dr. Merchant-recommended blood transfusion and admission for possible bone marrow biopsy in the morning. [facility] Medical History Anemia Aortic stenosis, severe Cardiac resynchronization therapy defibrillator (PRODUCT MARKETER-D) in place Complete heart block Congestive heart failure COVID-19 vaccine series completed 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HFrEF (heart failure with reduced ejection fraction) Hodgkins lymphoma Hypocalcemia Hypotension (arterial) Hypothyroidism LBBB (left bundle branch block) Leukocytosis Low TSH level Multinodular thyroid Multinodular thyroid NICM (nonischemic cardiomyopathy) Osteoporosis Pacemaker Pulmonary embolism Recurrent pleural effusion on right Rib fracture Rib pain Right hip pain Shortness of breath Sinus tachycardia Vitamin D deficiency Family History Father Healthy adult male Mother Bladder cancer Surgical History H/O splenectomy History of appendectomy History of cardiac pacemaker History of esophagogastroduodenoscopy (EGD) History of hip surgery Hx of colonoscopy S/P TAVR (transcatheter aortic valve replacement) Social History Household Members: Family Housing: House Are you a primary care tech to a significant other at home: No Do you presently have visiting nurse or other home services: No Alcohol intake: current Alcohol intake frequency: holidays/special occasions only Patient Tobacco Use Status: Never used Tobacco e-Cigarette/Vaping Use: Never Used Second Hand Smoke Exposure: No Advance Directives: No Advance Directives Information Provided: No Advance Directives Date on File: 01/25/21 service: Yes Current occupational status: employed Current occupational exposures/hazards: No Meds Allergies Allergy/AdvReac Type Severity Reaction Status Date / Time No Known Allergies Allergy Verified 09/20/21 14:16 [No Known Allergies*] Active Medications: Current Medications Acetaminophen (Acetaminophen 325 Mg Tablet) 650 mg PO Q6H PRN PRN Reason: Pain, Mild (Pain Scale 1-3) Furosemide (Furosemide 20 Mg Tablet) 60 mg PO DAILY [facility]; Protocol Furosemide (Furosemide 40 Mg Tablet) 40 mg PO DAILY@1700 [facility]; Protocol Levothyroxine Sodium (Levothyroxine Sodium 150 Mcg Tablet) 150 mcg PO DAILY [facility] Melatonin (Melatonin 3 Mg Tablet) 6 mg PO BEDTIME PRN PRN Reason: Insomnia Non-Formulary Medication (Ivabradine [Corlanor]) 5 mg PO BID [facility] Pharmacy Consult (Consult Rx Perform Med Rec) 1 each MISCELLANE ONCE PRN PRN Reason: Consult order Senna (Sennosides 8.6 Mg Tablet) 17.2 mg PO BEDTIME PRN PRN Reason: Constipation Sodium Chloride (0.9 % Sodium Chloride Flush 3 Ml Syringe) 3 ml IVFLUSH QSHIFT [facility] Home Medications Medication Instructions Recorded Confirmed Last Taken Type furosemide 40 mg tablet 40 mg PO DAILY@1700 08/23/21 09/20/21 09/20/21 History furosemide 40 mg tablet 60 mg PO DAILY 09/20/21 09/20/21 09/20/21 History Physical Exam Vital Signs and Narrative: Vital Signs: Last Vital Signs Temp 99.3 F 09/20/21 18:51 Pulse 87 09/20/21 19:30 Resp 13 09/20/21 19:30 BP 106/60 09/20/21 19:30 Pulse Ox 96 09/20/21 19:30 BMI result Body Mass Index 21.3 Gen: Appears be in no acute distress HEENT: NCAT, Moist mucosa. Pulmonary: Vesicular breath sounds, fair air entry CVS: Normal S1-S2 Abdomen: BS+, Soft, Nontender Extremities: Warm well perfused Neuro: Alert and awake. Results Labs CBC and Chem 7: 09/20/21 19:11 09/20/21 19:11 Labs: Laboratory Results - last 24 hr 09/20/21 09/20/21 09/20/21 19:11 19:11 19:11 MCV 91.4 MCH 30.3 MCHC 33.1 RDW 16.1 H Plt Count 2 L* MPV Not Reportable Immature Gran % (Auto) 0.4 Neut % (Auto) 77.1 H Lymph % (Auto) 8.9 L [place] % (Auto) 11.4 H Eos % (Auto) 1.5 Baso % (Auto) 0.7 Lymph # (Auto) 0.9 L [place] # (Auto) 1.2 Eos # (Auto) 0.2 Baso # (Auto) 0.1 Abs Immat Gran (auto) 0.04 H Absolute Neuts (auto) 7.8 Absolute Nucleated RBC 0.000 Nucleated RBC % (auto) 0.0 PT INR APTT Fibrinogen D-Dimer High Sensitivty Anion Gap 11 L Estim Creat Clear Calc 98.7 Estimated GFR > 60 Random Glucose 136 H D Calcium 8.9 Total Bilirubin 0.8 AST 22 ALT 11 Alkaline Phosphatase 65 Total Protein 7.2 Albumin 3.8 Blood Type A Positive Antibody Screen NEGATIVE 09/20/21 09/20/21 19:58 19:58 MCV MCH MCHC RDW Plt Count MPV Immature Gran % (Auto) Neut % (Auto) Lymph % (Auto) Lagrange % (Auto) Eos % (Auto) Baso % (Auto) Lymph # (Auto) Lagrange # (Auto) Eos # (Auto) Baso # (Auto) Abs Immat Gran (auto) Absolute Neuts (auto) Absolute Nucleated RBC Nucleated RBC % (auto) PT 15.1 H INR 1.3 H APTT 76.7 H* Fibrinogen Cancelled 619 D-Dimer High Sensitivty 2522 Anion Gap Estim Creat Clear Calc Estimated GFR Random Glucose Calcium Total Bilirubin AST ALT Alkaline Phosphatase Total Protein Albumin Blood Type Antibody Screen Imaging Radiologist's Impressions: Impressions Head CT 09/20/21 20:14 IMPRESSION: Unremarkable examination. Specifically no evidence of acute territorial infarct or hemorrhage. 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 Severe thrombocytopenia: Patient's platelet on presentation noted to be 2000. Has small petechiae on the bilateral lower extremities. Patient denies any active signs of bleeding. Hemoglobin stable. Patient had normal platelets in June of 2021 CT head showed no acute findings. Oncology Dr. Merchant was notified-reported plated transfusion; patient being ordered 2 units of platelets in the ER. Will obtain HIV (patient verbally consented), hepatitis panel, respiratory viral panel, tick panel, ARIN screen. Liver panel within normal limits Among his medications furosemide can really contribute to thrombocytopenia but patient has been on it for a while. Hold home aspirin History of CHF: Status post AICD. Patient has mild pedal edema. Continue home Lasix. History of GI bleed: Patient had a history of GI bleed in April of 2021 requiring blood transfusion. Had endoscopy and colonoscopy done which showed multiple polyps (gastric and colon polyps) consistent with his history of colon syndrome History of hypothyroidism: Continue home levothyroxine DVT prophylaxis: SCD boots Code status: Full code Quality Stroke Does the patient have a stroke diagnosis?: No VTE Prior VTE?: No VTE Risk Level:: Medical - moderate - high VTE Device Contraindication: N/A - Device Ordered VTE Drug Contraindication: Treatment Not Indicated
[2021-09-20 22:54] VITALS: BP 115/68; PULSE 90; RESP 16; O2SAT 96
[2021-09-21] VITALS (18 sets, daily range): BP systolic 91–117; BP diastolic 55–73; PULSE 78–91; RESP 13–20; TEMP 36.1–37.1; O2SAT 96–98; BMI 21.7
[2021-09-21 02:56] LABS: COVID-19 Test Negative (Negative)
[2021-09-21 04:51] LABS: HBS Num1 2.79 mIU/mL (0-7.99); HBc Num1 0.15 S/CO (0.00-0.79); Hepatitis B Core Antibody Nonreactive (Nonreactive); ~HepC Num1 0.21 S/CO (0.00-0.79); ~Hepatitis B Surface Antibody NONREACTIVE (Nonreactive); ~Hepatitis C Antibody Nonreactive (Nonreactive)
[2021-09-21 04:52] LABS: HBsAGNum1 0.27 S/CO (0.00-0.99); HIV AB/AG Nonreactive (Nonreactive); HIV Num 1 0.05 S/CO (0.00-0.99); Hepatitis B Surface Antigen Negative (Negative)
[2021-09-21 06:16] LABS: Basophils Percent Auto 0.1 % (0-2); PLT CLUMP 1; SCAN SMEAR FLAG 1
[2021-09-21 06:18] LABS: Hematocrit 35.2 % (42.0-52.0); Hemoglobin 11.7 g/dl (14.0-18.0); Imm Gran Abs Auto 0.07 X10*3/uL (0.00-0.03); Imm Gran Pct Auto 0.5 % (0.0-0.4); Lymphocytes Absolute Auto 0.4 X10*3/uL (1.2-4.9); MANUAL DIFF FLAG SCAN; Mean Corpuscular HGB Conc 33.2 g/dl (31.0-36.0); Mean Corpuscular Hemoglobin 30.1 pg (27.0-33.0); Mean Corpuscular Volume 90.5 fL (80.0-98.0); Mean Platelet Volume 8.2 fL (9.4-12.4); Monocytes Absolute Auto 0.3 X10*3/uL (0.1-1.2); Monocytes Percent Auto 2.4 % (2-11); Neutrophils Absolute Auto 13.3 x10*3/uL (2.0-8.3); Red Blood Count 3.89 X10*6/uL (4.60-5.80); Red Cell Distribution Width 16.1 % (11.0-16.0)
[2021-09-21 06:29] LABS: Platelet Count 21 X10*3/uL (160-400); White Blood Count 14.1 X10*3/uL (4.8-10.8)
[2021-09-21 06:35] LABS: Anion Gap 10 (12-20); Blood Urea Nitrogen 16 mg/dL (9-16); Calcium 8.8 mg/dL (8.4-10.2); Carbon Dioxide 28 mmol/L (22-29); Chloride 102 mmol/L (96-108); Creatinine Clr Calc Pharmacy 119.7; Estimated Glomerular Filt Rate > 60; Glucose Random 147 mg/dL (60-115); Potassium 4.3 mmol/L (3.3-5.1); SLIDE REVIEW VERIFIED; Sodium 136 mmol/L (135-145)
--- NOTE | 2021-09-21 08:07 | PM.HEMONCCN ---
Subjective - Subjective Chief complaint: Consult for: Thrombocytopenia. Patient: new to practice Consult date: 09/21/21 Requesting Physician: Jeffrey. Primary Care Provider: Yesica Kay MD Medical Summary: DIAGNOSIS: THROMBOCYTOPENIA. HPI - Consult Narrative Reason for consult: Consult for: Thrombocytopenia. Narrative: Enrique Monahan is a pleasant 60 year old gentleman, presented to the hospital last night, with a chief complaint of low platelets. He tells me that he had felt weak and tired for a couple days. Over the weekend on Monday he had some trouble breathing. He had a cough. He took extra Lasix on Monday and Monday 60 mg in the morning and 40 in the evening both days. Monday night, he felt a little bit better however Monday during the day he felt more tired and fatigued. He noted petechiae on his legs. He saw his disability attorney, Dr. Wyman who ordered labs checked his pacemaker function. He was incidentally noted to have very low platelets: 2000. He was noted to have a petechial rash; he was sent to the ER for further evaluation. Patient denies any headaches blurry visions, chest pain or palpitations, denies any signs of infection or recent viral infections; Denies any numbness tingling or focal weakness. Reports mild swelling of his ankles. Review of all other systems is negative except mentioned above ER course: Per ER team patient noted to have platelets of 2000. CT head showed no acute findings. Past medical history of: 1. 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 2. History of Hodgkin's Lymphoma diagnosed in 1989. He had disease recurrence in 1994, for which he had systemic chemotherapy until April 1996. He is clinically in remission and doing fairly well. He is currently recuperating from a hip fracture repair. He is back at work. He has a Normal exam and blood work today. LDH: 226. He had a recent CTA of the chest done which was non revealing. He had abnormal thyroid function. Ultrasound of the thyroid revealed a nodule. He needs to have an FNA done. That will be set up by Dr. Suero. 3) Cleveland syndrome 2. Val's Syndrome. He has seen a genetic counselor, Given the high risk for malignancy, cancer surveillance is the major focus of management. He is undergoing annual colonoscopies by Dr. Gillis, at [facility]. In terms of surveillance, a recommendation from NCCN is: 1) Annual comprehensive physical examination. 2) Thyroid ultrasound annually. 3) Colonoscopy every 5 years, more frequent if symptomatic. However in view of the Cleveland's syndrome he should have annual colonoscopy. 4) Renal ultrasound to be repeated every 1 to 2 years. 5) Annual skin exam, also need to have a low index of suspicion for dysplastic gangliocytoma of the cerebellum. 6) If patient has symptoms, then neuroimaging is recommended, anyone with persistent headache. FAMILY HISTORY: His mom had colon cancer. 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 He is . He has 2 children. Daughter is 17 now. He denies smoking. He takes beer on occasion. ROS: He has been feeling tired as of late. Denies any fevers chills no night sweats. His appetite is good. He denies any weight loss. He actually gained: 153. Denies any headache no dizziness. Denies any nose bleeds nor bleeding from the mouth. Denies any chest pain but he felt some tightness over the weekend. He fell short of breath. Denies any abdominal pain nausea vomiting heartburn indigestion. Bowels are working. He denies diarrhea. No gross blood in the stools. Denies any dysuria or hematuria. Denies joint pains. His feet have been swollen lately. Denies any focal weakness. Denies depression however he did get nervous yesterday. He has noted petechiae all over his legs. Review of Systems - Constitutional Reports system reviewed and no additional complaints, except as documented, Reports fatigue, Reports weakness, Reports weight gain, Denies body ache(s), Denies fever(s) - Eyes Reports system reviewed and no additional complaints, except as documented, Denies blurry vision - ENT Reports system reviewed and no additional complaints, except as documented - Cardiovascular Reports system reviewed and no additional complaints, except as documented, Reports chest pain at rest, Reports shortness of breath Comments: Chest pressure - Respiratory Reports no additional respiratory complaints, Reports cough - Gastrointestinal Reports system reviewed and no additional complaints, except as documented, Denies abdominal pain, Denies dyspepsia, Denies vomiting blood - Genitourinary Genitourinary: Reports no additional male genitourinary complaints, Denies blood in urine - Musculoskeletal Reports system reviewed and no additional complaints, except as documented, Reports abnormal walking, Denies back pain - Integumentary/Breasts Skin/Breast: Reports no additional skin complaints Comments: petechiae. - Neurologic Reports system reviewed and no additional complaints, except as documented - Psychiatric Reports system reviewed and no additional complaints, except as documented, Reports anxiety - Endocrine Reports no additional endocrine complaints - Hematologic/Lymphatic Reports system reviewed and no additional complaints, except as documented - Allergic/Immunologic Reports system reviewed and no additional complaints, except as documented Oncology Screenings - ECOG Performance Status ECOG Performance Status: 1 [facility] Medical History: Medical History (Last Reviewed 09/21/21 @ 20:25 by Mason Mattson RN) Anemia Aortic stenosis, severe Cardiac resynchronization therapy defibrillator (GLASS EDGER-D) in place Complete heart block Congestive heart failure COVID-19 vaccine series completed Cleveland syndrome HFrEF (heart failure with reduced ejection fraction) Hodgkins lymphoma Hypocalcemia Hypotension (arterial) Hypothyroidism LBBB (left bundle branch block) Leukocytosis Low TSH level Multinodular thyroid Multinodular thyroid NICM (nonischemic cardiomyopathy) Osteoporosis Pacemaker Pulmonary embolism Recurrent pleural effusion on right Rib fracture Rib pain Right hip pain Shortness of breath Sinus tachycardia Vitamin D deficiency Functional capacity: independent ambulation Patient : No Family History: Family History (Last Reviewed 09/21/21 @ 14:30 by Coni Jean Baptiste MD) Father Healthy adult male Mother Bladder cancer Surgical History: Surgical History (Last Reviewed 09/21/21 @ 14:30 by Coni Jean Baptiste MD) H/O splenectomy History of appendectomy History of cardiac pacemaker History of esophagogastroduodenoscopy (EGD) History of hip surgery Hx of colonoscopy S/P TAVR (transcatheter aortic valve replacement) Social History: Social History (Last Reviewed 09/21/21 @ 14:30 by Coni Jean Baptiste MD) Living Situation History: Household Members: Spouse Household Members: Family Housing: House Are you a primary daytime caregiver to a significant other at home: No Do you presently have visiting nurse or other home services: No Tobacco History: Patient Tobacco Use Status: Never used Tobacco e-Cigarette/Vaping Use: Never Used Second Hand Smoke Exposure: No Advance Directives: Advance Directives Date on File: 01/25/21 Occupation Assessmet: service: Yes Current occupational status: employed Current occupational exposures/hazards: No Home Medications and Allergies Current Medications: Current Medications Acetaminophen (Acetaminophen 325 Mg Tablet) 650 mg PO Q6H PRN PRN Reason: Pain, Mild (Pain Scale 1-3) Furosemide (Furosemide 20 Mg Tablet) 60 mg PO DAILY [facility]; Protocol Furosemide (Furosemide 40 Mg Tablet) 40 mg PO DAILY@1700 [facility]; Protocol Levothyroxine Sodium (Levothyroxine Sodium 150 Mcg Tablet) 150 mcg PO DAILY [facility] Melatonin (Melatonin 3 Mg Tablet) 6 mg PO BEDTIME PRN PRN Reason: Insomnia Non-Formulary Medication (Ivabradine [Corlanor]) 5 mg PO BID [facility] Pharmacy Consult (Consult Rx Perform Med Rec) 1 each MISCELLANE ONCE PRN PRN Reason: Consult order Senna (Sennosides 8.6 Mg Tablet) 17.2 mg PO BEDTIME PRN PRN Reason: Constipation Sodium Chloride (0.9 % Sodium Chloride Flush 3 Ml Syringe) [facility] Last Admin: 09/20/21 23:44 Dose: Not Given Documented by: Home Medications Medication Instructions Recorded Confirmed Type furosemide 40 mg tablet 40 mg PO DAILY@1700 08/23/21 09/20/21 History furosemide 40 mg tablet 60 mg PO DAILY 09/20/21 09/20/21 History Allergies Allergy/AdvReac Type Severity Reaction Status Date / Time No Known Allergies Allergy Verified 09/20/21 14:16 [No Known Allergies*] Physical Exam Vital signs: Vital Signs Temp 97.9 F 09/21/21 04:55 Pulse 80 09/21/21 04:55 Resp 16 09/21/21 04:55 BP 110/58 L 09/21/21 04:55 Pulse Ox 98 09/21/21 03:17 Intake & Output 09/20/21 09/21/21 09/21/21 18:59 06:59 18:59 Intake Total 666 / 666 Output Total 250 / 250 Balance 416 / 416 Urine Output (Average ml/kg/hr) 0.30 Intake: Intake, Oral Amount 0 / 0 Intake (Blood Product) Amount 666 / 666 Aph Plts Pas Lvds ([id number]) Unit 349 / 349 [id number] Plt Aph Pas Pathreduced([id number]) 317 / 317 Unit [id number] Output: Output, Urine Amount 250 / 250 Other: Weight 69.4 kg Weight 69.4 kg - Constitutional Present: mild distress - Routine HEENT Exam Head: Present: normal inspection ENT: Present: mucous membranes moist - Routine Neck Exam Present: supple - Routine Respiratory Exam Present: CTAB - Routine Cardiovascular Exam Cardiovascular: Present: RRR, S1, S2 - Routine Abdominal Exam Present: normal bowel sounds, nontender - Routine Extremities Exam Present: nontender - Routine Skin Exam Present: intact, petechiae Comments: On the legs. - Routine Neurological Exam Present: alert, oriented X3, normal speech - Detailed Neurological Exam: Coma Scale Eye Opening: Spontaneous (4) Verbal Response: Oriented (5) Motor Response: Obeys commands (6) Ana Maria Coma Scale Total: 15 - Routine Psychiatric Exam Present: normal mood Hem/Onc Consult Result - Labs CBC & Chem 7: 09/23/21 08:24 09/22/21 06:17 Labs: Short CBC 09/20/21 09/21/21 Range/Units 19:11 06:02 WBC 10.1 14.1 H (4.8-10.8) X10*3/uL Hgb 12.0 L 11.7 L (14.0-18.0) g/dl Hct 36.2 L 35.2 L (42.0-52.0) % Plt Count 2 L* 21 L D (160-400) X10*3/uL BMP 09/20/21 09/21/21 19:11 06:02 Sodium 138 136 Potassium 3.9 4.3 Chloride 99 102 Carbon Dioxide 32 H 28 BUN 20 H 16 Creatinine 0.80 0.66 Calcium 8.9 8.8 Liver Function 09/20/21 Range/Units 19:11 Total Bilirubin 0.8 (0.0-1.0) mg/dL AST 22 (5-37) U/L ALT 11 (0-40) U/L Alkaline Phosphatase 65 (39-117) U/L Albumin 3.8 (3.5-5.0) g/dL Assessment and Plan Patient Active problem list reviewed?: Yes (1) Thrombocytopenia Status: Acute Assessment and plan: This is a pleasant 60-year-old gentleman with a previous history of Hodgkin's lymphoma 20 years ago. He had mantle field radiation. Lately he has had cardiac issues. He presented to the disability attorney yesterday. Was incidentally noted to have a platelet count of 2,000. He was admitted. Overnight, he has received platelets and a dose of Decadron. DIFFERENTIAL DIAGNOSIS: 1.ITP: is most likely. 2. 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 That is most likely the underlying cause of the thrombocytopenia. 3. Drug-induced thrombocytopenia. 4. Myelo infiltrative disorder: Patient has history of Hodgkin's lymphoma. 5. DIC: Is in the differential. 6. TTP/HUS: not likely. He does not have the PENTAD. PLAN: He was given a unit of platelets last night. He received a dose of Decadron 10 mg IV. Platelets are up to 21 today. The plan is to proceed with a bone marrow exam this afternoon for further evaluation. He will have this done under MAC, under platelet cover. I will make further plans based upon the results. Meanwhile he will continue on oral Decadron 40 mg daily for 5 days. He will receive 1 unit pharesed platelets tomorrow. thank you, Johnathan. - Time Spent With Patient Time Spent with Patient (in minutes): 30
--- NOTE | 2021-09-21 10:00 | MHC.CM.PN ---
CM originally spoke with Patient at [phone], but MD was with him so CM spoke with /Lisette at [phone]. Patient lives in a house with his , 18 year old Son and 17 year old Daughter and he is functionally independent and working. Home/no services is the goal for dc and CM has initiated and will follow for dc planning. PCP is Dr. Yesica Avila and Patient received Pfizer vax X3.
[2021-09-21] MEDS: Furosemide 20 MG TABLET 60 MG PO (10:11)
[2021-09-21] MEDS: Levothyroxine Sodium 150 MCG TABLET PO (10:11)
[2021-09-21] MEDS: 0.9 % Sodium Chloride Flush 3 ML SYRINGE IVFLUSH ×3 (10:12→21:31)
--- NOTE | 2021-09-21 13:08 | HO.PM.IMPN ---
Subjective Subjective Date of Service: 09/21/21 Review of Systems follow-up thrombocytopenia No active bleeding Denies chest pain, shortness breath, nausea, vomiting, diarrhea Physical Exam Vital Signs: Vital Signs: Last Vital Signs Temp 97.7 F 09/21/21 11:49 Pulse 84 09/21/21 11:49 Resp 18 09/21/21 11:49 BP 110/62 09/21/21 11:49 Pulse Ox 98 09/21/21 03:17 BMI result Body Mass Index 21.3 Appearing in no acute distress lung sounds are clear to auscultation heart regular rate rhythm, clear S1, S2 positive bowel sounds, abdomen is soft, nontender neuro patient is alert x3, no focal deficits Petechiae noted to bilateral lower extremities Objective Data Active Medications Acetaminophen (Acetaminophen 325 Mg Tablet) 650 mg PO Q6H PRN PRN Reason: Pain, Mild (Pain Scale 1-3) Furosemide (Furosemide 20 Mg Tablet) 60 mg PO DAILY [facility]; Protocol Last Admin: 09/21/21 10:11 Dose: 60 mg Documented by: YADIRA Furosemide (Furosemide 40 Mg Tablet) 40 mg PO DAILY@1700 [facility]; Protocol Levothyroxine Sodium (Levothyroxine Sodium 150 Mcg Tablet) 150 mcg PO DAILY [facility] Last Admin: 09/21/21 10:11 Dose: 150 mcg Documented by: YADIRA Melatonin (Melatonin 3 Mg Tablet) 6 mg PO BEDTIME PRN PRN Reason: Insomnia Non-Formulary Medication (Ivabradine [Corlanor]) 5 mg PO BID [facility] Pharmacy Consult (Consult Rx Perform Med Rec) 1 each MISCELLANE ONCE PRN PRN Reason: Consult order Senna (Sennosides 8.6 Mg Tablet) 17.2 mg PO BEDTIME PRN PRN Reason: Constipation Sodium Chloride (0.9 % Sodium Chloride Flush 3 Ml Syringe) 3 ml IVFLUSH QSHIFT [facility] Last Admin: 09/21/21 10:12 Dose: 3 ml Documented by: YADIRA Labs CBC & Chem 7: 09/21/21 06:02 09/21/21 06:02 Labs: Laboratory Results - last 24 hr 09/20/21 09/20/21 09/20/21 19:11 19:11 19:11 MCV 91.4 MCH 30.3 MCHC 33.1 RDW 16.1 H Plt Count 2 L* MPV Not Reportable Immature Gran % (Auto) 0.4 Neut % (Auto) 77.1 H Lymph % (Auto) 8.9 L [place] % (Auto) 11.4 H Eos % (Auto) 1.5 Baso % (Auto) 0.7 Lymph # (Auto) 0.9 L [place] # (Auto) 1.2 Eos # (Auto) 0.2 Baso # (Auto) 0.1 Abs Immat Gran (auto) 0.04 H Absolute Neuts (auto) 7.8 Absolute Nucleated RBC 0.000 Nucleated RBC % (auto) 0.0 Smear Tech's Comments PT INR APTT Fibrinogen D-Dimer High Sensitivty Anion Gap 11 L Estim Creat Clear Calc 98.7 Estimated GFR > 60 Random Glucose 136 H D Calcium 8.9 Total Bilirubin 0.8 AST 22 ALT 11 Alkaline Phosphatase 65 Total Protein 7.2 Albumin 3.8 COVID-19 ([facility]ANICE) COVID-19 Clin Com Hep Bs Antigen Hep Bs Antibody Hep B Core Total Ab Hepatitis C Ab (EIA) HIV 1&2 Ab/P24 Ag 4thGn Blood Type A Positive Antibody Screen NEGATIVE 09/20/21 09/20/21 09/20/21 19:11 19:58 19:58 MCV MCH MCHC RDW Plt Count MPV Immature Gran % (Auto) Neut % (Auto) Lymph % (Auto) Major % (Auto) Eos % (Auto) Baso % (Auto) Lymph # (Auto) Major # (Auto) Eos # (Auto) Baso # (Auto) Abs Immat Gran (auto) Absolute Neuts (auto) Absolute Nucleated RBC Nucleated RBC % (auto) Smear Tech's Comments PT 15.1 H INR 1.3 H APTT 76.7 H* Fibrinogen Cancelled 619 D-Dimer High Sensitivty 2522 Anion Gap Estim Creat Clear Calc Estimated GFR Random Glucose Calcium Total Bilirubin AST ALT Alkaline Phosphatase Total Protein Albumin COVID-19 ([facility]ANICE) COVID-19 Clin Com Hep Bs Antigen Negative Hep Bs Antibody NONREACTIVE Hep B Core Total Ab Nonreactive Hepatitis C Ab (EIA) Nonreactive HIV 1&2 Ab/P24 Ag 4thGn Nonreactive Blood Type Antibody Screen 09/21/21 09/21/21 09/21/21 02:33 06:02 06:02 MCV 90.5 MCH 30.1 MCHC 33.2 RDW 16.1 H Plt Count 21 L D MPV 8.2 L Immature Gran % (Auto) 0.5 H Neut % (Auto) 94.0 H Lymph % (Auto) 3.0 L [place] % (Auto) 2.4 Eos % (Auto) 0.0 Baso % (Auto) 0.1 Lymph # (Auto) 0.4 L Major # (Auto) 0.3 Eos # (Auto) 0.0 Baso # (Auto) 0.0 Abs Immat Gran (auto) 0.07 H Absolute Neuts (auto) 13.3 H Absolute Nucleated RBC 0.000 Nucleated RBC % (auto) 0.0 Smear Tech's Comments VERIFIED PT INR APTT Fibrinogen D-Dimer High Sensitivty Anion Gap 10 L Estim Creat Clear Calc 119.7 Estimated GFR > 60 Random Glucose 147 H Calcium 8.8 Total Bilirubin AST ALT Alkaline Phosphatase Total Protein Albumin COVID-19 (SHANICE) Negative COVID-19 Clin Com See Note Hep Bs Antigen Hep Bs Antibody Hep B Core Total Ab Hepatitis C Ab (EIA) HIV 1&2 Ab/P24 Ag 4thGn Blood Type Antibody Screen Assessment and Plan (1) Thrombocytopenia: Status: Acute Plan 60-year-old male with a past medical history of anemia, severe aortic stenosis, history of bioprosthetic heart valve, LBBB, CHF status post AICD, hypothyroidism, history of complete heart block, history of Hodgkin's lymphoma, 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 Severe thrombocytopenia. Patient's platelet on presentation noted to be 2000.? Denies any active signs of bleeding.? Hemoglobin stable.? Differential diagnosis includes ITP, drug-induced thrombocytopenia ( on lasix but has been for a long time, started on new med corlanor no evidence found re thrombocytopenia, Myeloproliferative disorder hx of HL Patient had normal platelets in June of 2021 CT head showed no acute findings.? 2 units of PLT tx and decadron Plan for bone marrow biopsy today HIV, hepatitis panel, respiratory viral panel, tick panel, ARIN screen pending Liver panel within normal limits Hold home aspirin History of HFPEF Status post AICD.? Continue home Lasix. History of hypothyroidism Continue home levothyroxine DVT prophylaxis:? SCD boots Code status: Full code Attending Dr. Rojas Patient requires continued hospitalization due to pending bone marrow biopsy, continued thrombocytopenia severe likely necessitating more platelets and possibly steroid treatment Quality Stroke Does the patient have a stroke diagnosis?: No VTE Prior VTE?: No VTE Risk Level:: Medical - moderate - high VTE Device Contraindication: N/A - Device Ordered VTE Drug Contraindication: Treatment Not Indicated
--- NOTE | 2021-09-21 13:26 | PC.NURSE ---
Patient picked up from ED and transferred to [facility]. #20 PRN angio in Left forearm asymptomatic and flushed with Normal Saline with no issues.
[2021-09-21] MEDS: Lactated Ringers 1,000 ML 50 ML IVCONT (13:59)
--- NOTE | 2021-09-21 14:29 | P.CONAN_ITS ---
[facility] Active Problems Active Problems: All Active Problems (Updated 09/21/21 @ 08:19 by Britany Merchant MD) Thrombocytopenia (Acute) Acute idiopathic thrombocytopenic purpura (Acute) Rash (Acute) Multinodular thyroid (Acute) Rib fracture (Acute) Right hip pain (Acute) Rib pain (Acute) Multinodular thyroid (Acute) Hyperkalemia (Acute) Fecal occult blood test positive (Acute) Bilateral pulmonary embolism (Acute) Encounter for interrogation of cardiac defibrillator (Acute) Closed femur fracture (Acute) Ketchum syndrome (Acute) NICM (nonischemic cardiomyopathy) (Acute) Vitamin D deficiency (Acute) Osteoporosis (Acute) Low TSH level (Acute) Anemia (Acute) Congestive heart failure (Acute) Hypothyroidism (Acute) Hypocalcemia (Acute) Past Medical History Medical History Anemia Aortic stenosis, severe Cardiac resynchronization therapy defibrillator ([employer] BLASTING-D) in place Complete heart block Congestive heart failure COVID-19 vaccine series completed Ketchum syndrome HFrEF (heart failure with reduced ejection fraction) Hodgkins lymphoma Hypocalcemia Hypotension (arterial) Hypothyroidism LBBB (left bundle branch block) Leukocytosis Low TSH level Multinodular thyroid Multinodular thyroid NICM (nonischemic cardiomyopathy) Osteoporosis Pacemaker Pulmonary embolism Recurrent pleural effusion on right Rib fracture Rib pain Right hip pain Shortness of breath Sinus tachycardia Vitamin D deficiency Functional capacity: independent ambulation Family History Family History Father Healthy adult male Mother Bladder cancer Family history of problems with anesthesia: No Surgical History Surgical History H/O splenectomy History of appendectomy History of cardiac pacemaker History of esophagogastroduodenoscopy (EGD) History of hip surgery Hx of colonoscopy S/P TAVR (transcatheter aortic valve replacement) History of Problems with Anesthesia: No Social History Social History Household Members: Family Housing: House Are you a primary career placement services counselor to a significant other at home: No Do you presently have visiting nurse or other home services: No Alcohol intake: current Alcohol intake frequency: does not drink Patient Tobacco Use Status: Never used Tobacco e-Cigarette/Vaping Use: Never Used Second Hand Smoke Exposure: No Are you DNR?: No Advance Directives: No Advance Directives Information Provided: No Advance Directives Date on File: 01/25/21 service: Yes Current occupational status: employed Current occupational exposures/hazards: No Meds Allergies Allergy/AdvReac Type Severity Reaction Status Date / Time No Known Allergies Allergy Verified 09/20/21 14:16 [No Known Allergies*] Active Medications: Current Medications Acetaminophen (Acetaminophen 325 Mg Tablet) 650 mg PO Q6H PRN PRN Reason: Pain, Mild (Pain Scale 1-3) Furosemide (Furosemide 20 Mg Tablet) 60 mg PO DAILY [facility]; Protocol Last Admin: 09/21/21 10:11 Dose: 60 mg Documented by: Furosemide (Furosemide 40 Mg Tablet) 40 mg PO DAILY@1700 [facility]; Protocol Lactated Ringer's (Lr) 1,000 mls @ 50 mls/hr IVCONT .Q20H [facility] Last Admin: 09/21/21 13:59 Dose: 50 mls/hr Documented by: Levothyroxine Sodium (Levothyroxine Sodium 150 Mcg Tablet) 150 mcg PO DAILY [facility] Last Admin: 09/21/21 10:11 Dose: 150 mcg Documented by: Melatonin (Melatonin 3 Mg Tablet) 6 mg PO BEDTIME PRN PRN Reason: Insomnia Non-Formulary Medication (Ivabradine [Corlanor]) 5 mg PO BID [facility] Pharmacy Consult (Consult Rx Perform Med Rec) 1 each MISCELLANE ONCE PRN PRN Reason: Consult order Senna (Sennosides 8.6 Mg Tablet) 17.2 mg PO BEDTIME PRN PRN Reason: Constipation Sodium Chloride (0.9 % Sodium Chloride Flush 3 Ml Syringe) 3 ml IVFLUSH QSHIFT [facility] Last Admin: 09/21/21 10:12 Dose: 3 ml Documented by: Home Medications Medication Instructions Recorded Confirmed Last Taken Type furosemide 40 mg tablet 40 mg PO DAILY@1700 08/23/21 09/20/21 09/20/21 History furosemide 40 mg tablet 60 mg PO DAILY 09/20/21 09/20/21 09/20/21 History Exam Exam Date and Time: September 21, 2021 1429 Height,Weight and Vital Signs: Height 5 ft 11 in Weight 69.4 kg Last Vital Signs Temp 98.2 F 09/21/21 13: Pulse 84 03/15/22 13:21 Resp 16 09/21/21 13:21 BP 99/58 L 09/21/21 13:21 Pulse Ox 98 09/21/21 13:21 Pertinent Lab Results Pertinent Lab Results: Laboratory Tests 09/20/21 09/20/21 09/20/21 19:11 19:11 19:11 WBC 10.1 RBC 3.96 L Hgb 12.0 L Hct 36.2 L MCV 91.4 MCH 30.3 MCHC 33.1 RDW 16.1 H Plt Count 2 L* MPV Not Reportable Immature Gran % (Auto) 0.4 Neut % (Auto) 77.1 H Lymph % (Auto) 8.9 L [place] % (Auto) 11.4 H Eos % (Auto) 1.5 Baso % (Auto) 0.7 Lymph # (Auto) 0.9 L [place] # (Auto) 1.2 Eos # (Auto) 0.2 Baso # (Auto) 0.1 Abs Immat Gran (auto) 0.04 H Absolute Neuts (auto) 7.8 Absolute Nucleated RBC 0.000 Nucleated RBC % (auto) 0.0 Smear Tech's Comments PT INR APTT Fibrinogen D-Dimer High Sensitivty Sodium 138 Potassium 3.9 Chloride 99 Carbon Dioxide 32 H Anion Gap 11 L BUN 20 H Creatinine 0.80 Estim Creat Clear Calc 98.7 Estimated GFR > 60 Random Glucose 136 H D Calcium 8.9 Total Bilirubin 0.8 AST 22 ALT 11 Alkaline Phosphatase 65 Total Protein 7.2 Albumin 3.8 COVID-19 (SHANICE) COVID-19 Clin Com Hep Bs Antigen Hep Bs Antibody Hep B Core Total Ab Hepatitis C Ab (EIA) HIV 1&2 Ab/P24 Ag 4thGn Blood Type A Positive Antibody Screen NEGATIVE 09/20/21 09/20/21 09/20/21 19:11 19:58 19:58 WBC RBC Hgb Hct MCV MCH MCHC RDW Plt Count MPV Immature Gran % (Auto) Neut % (Auto) Lymph % (Auto) [place] % (Auto) Eos % (Auto) Baso % (Auto) Lymph # (Auto) [place] # (Auto) Eos # (Auto) Baso # (Auto) Abs Immat Gran (auto) Absolute Neuts (auto) Absolute Nucleated RBC Nucleated RBC % (auto) Smear Tech's Comments PT 15.1 H INR 1.3 H APTT 76.7 H* Fibrinogen Cancelled 619 D-Dimer High Sensitivty 2522 Sodium Potassium Chloride Carbon Dioxide Anion Gap BUN Creatinine Estim Creat Clear Calc Estimated GFR Random Glucose Calcium Total Bilirubin AST ALT Alkaline Phosphatase Total Protein Albumin COVID-19 (SHANICE) COVID-19 Clin Com Hep Bs Antigen Negative Hep Bs Antibody NONREACTIVE Hep B Core Total Ab Nonreactive Hepatitis C Ab (EIA) Nonreactive HIV 1&2 Ab/P24 Ag 4thGn Nonreactive Blood Type Antibody Screen 09/21/21 09/21/21 09/21/21 02:33 06:02 06:02 WBC 14.1 H RBC 3.89 L Hgb 11.7 L Hct 35.2 L MCV 90.5 MCH 30.1 MCHC 33.2 RDW 16.1 H Plt Count 21 L D MPV 8.2 L Immature Gran % (Auto) 0.5 H Neut % (Auto) 94.0 H Lymph % (Auto) 3.0 L [place] % (Auto) 2.4 Eos % (Auto) 0.0 Baso % (Auto) 0.1 Lymph # (Auto) 0.4 L [place] # (Auto) 0.3 Eos # (Auto) 0.0 Baso # (Auto) 0.0 Abs Immat Gran (auto) 0.07 H Absolute Neuts (auto) 13.3 H Absolute Nucleated RBC 0.000 Nucleated RBC % (auto) 0.0 Smear Tech's Comments VERIFIED PT INR APTT Fibrinogen D-Dimer High Sensitivty Sodium 136 Potassium 4.3 Chloride 102 Carbon Dioxide 28 Anion Gap 10 L BUN 16 Creatinine 0.66 Estim Creat Clear Calc 119.7 Estimated GFR > 60 Random Glucose 147 H Calcium 8.8 Total Bilirubin AST ALT Alkaline Phosphatase Total Protein Albumin COVID-19 (SHANICE) Negative COVID-19 Clin Com See Note Hep Bs Antigen Hep Bs Antibody Hep B Core Total Ab Hepatitis C Ab (EIA) HIV 1&2 Ab/P24 Ag 4thGn Blood Type Antibody Screen Airway Mallampati Class: III TM Dist: >3cm Neck ROM: Limited Loose/Missing/Broken Teeth: Yes, Upper and Lower Heart: RRR Lungs: CTA Assessment and Plan Assessment Anesthesia Assessment: Anesthesia Plan Discussed and Chart Reviewed Final Anesthetic Review Family History of Problems with Anesthesia: No History of Problems with Anesthesia: No NPO: Yes ASA Class: IV Patient Risk: High Procedure Risk: Low Anesthetic Plan Anesthetic Plan: MAC: Disposition: Standard PACU
[2021-09-21 14:31] LABS: Adenovirus PCR Not Detected (Not Detect.); Bordetella parapertussis PCR Not Detected (Not Detect.); Bordetella pertussis PCR Not Detected (Not Detect.); Chlamydia pneumoniae PCR Not Detected (Not Detect.); Coronavirus 229E PCR Not Detected (Not Detect.); Coronavirus HKU1 PCR Not Detected (Not Detect.); Coronavirus NL63 PCR Not Detected (Not Detect.); Coronavirus OC43 PCR Not Detected (Not Detect.); SARS-CoV-2 PCR Detected (Not Detect.)
[2021-09-21 14:32] LABS: Human metapneumovirus PCR Not Detected (Not Detect.); Influenza A PCR Not Detected (Not Detect.); Influenza B PCR Not Detected (Not Detect.); Mycoplasma pneumoniae PCR Not Detected (Not Detect.); Parainfluenza 1 PCR Not Detected (Not Detect.); Parainfluenza 2 PCR Not Detected (Not Detect.); Parainfluenza 3 PCR Not Detected (Not Detect.); Parainfluenza 4 PCR Not Detected (Not Detect.); RSV PCR Not Detected (Not Detect.); Rhino/Enterovirus PCR Not Detected (Not Detect.)
[2021-09-21 14:35] LABS: Bone Marrow SEE SEPARATE REPORT
--- NOTE | 2021-09-21 16:24 | PC.NURSE ---
Second unit of platelets ordered to be hung 09/[address] Merchant.
--- NOTE | 2021-09-21 16:49 | PM.HEMONCBM ---
Bone Marrow Aspiration - Bone Marrow Aspiration Procedure:: *Service Date: [09/21/21] Pre Op Diagnosis:: Thrombocytopenia. Post Op Diagnosis:: Same. Surgeon:: Britany Merchant. Anesthesia:: MAC. Consent:: Informed consent obtained from the patient for the procedure. Pros and cons of biopsy explained. The patient was willing to proceed with the procedure under local anesthesia and MAC. Procedure in Detail:: *Service Date: 09/21/21. *Procedure: Bone marrow aspirate and biopsy. *Pre Op Dx: Thrombocytopenia. History of Hodgkin's lymphoma. *Post Op Dx: Same. *Surgeon: Britany Merchant. The patient was positioned prone. The left posterior superior iliac spine prepped and draped. Under aseptic precautions, Mac anesthesia was administered. 5 ml of 1% lidocaine used for local anesthesia. Bone marrow aspirate was taken. With the Jamshidi needle, a core biopsy obtained without any complications. Specimens were sent for Mcmanus stain, flow cytometry and cytogenetics. Biopsy was sent for histology. The patient tolerated the procedure well. Bandage was applied and patient was positioned on his back for 10 to 15 minutes after the procedure. The patient was advised to call us if he develops any pain or swelling at the surgical site. Follow up in 2 weeks.
[2021-09-21] MEDS: Furosemide 40 MG TABLET PO (16:56)
[2021-09-21] MEDS: dexAMETHasone 4 MG TABLET 40 MG PO (17:06)
--- NOTE | 2021-09-21 17:40 | PC.NURSE ---
pt back in bed after bone marrow biopsy. VSS. No complaints of pain. Resting comfortably. Will continue to monitor.
--- NOTE | 2021-09-21 18:09 | PC.NURSE ---
Addendum entered by Haylee Warner RN 09/21/21 18:34: COVID swab reordered, pt reswabbed. Swab sent to lab, awaiting results. Original Note: Looking through pt labs noticed COVID PCR test done 09/20 2253 results were detected . COVID (SHANICE) done 09/21 0233 came back negative. Becky Shultz notified. will continue to monitor.
[2021-09-21 18:58] LABS: COVID-19 Test Negative (Negative); IDNOW Serial# 16C4AD1C
[2021-09-22] VITALS (8 sets, daily range): BP systolic 98–104; BP diastolic 55–62; PULSE 71–84; RESP 16–20; TEMP 35.7–36.9; O2SAT 96–98
[2021-09-22 04:16] LABS: Hepatitis A Antibody IgM 0.19 Index (0-0.79); ~Hepatitis A Antibody IgM Nonreactive (Nonreactive)
[2021-09-22 06:29] LABS: Hemoglobin 11.9 g/dl (14.0-18.0); Mean Corpuscular HGB Conc 33.1 g/dl (31.0-36.0); Mean Corpuscular Hemoglobin 29.7 pg (27.0-33.0); Mean Corpuscular Volume 89.8 fL (80.0-98.0); Red Blood Count 4.01 X10*6/uL (4.60-5.80); White Blood Count 16.2 X10*3/uL (4.8-10.8)
[2021-09-22 06:30] LABS: Platelet Count 48 X10*3/uL (160-400)
[2021-09-22 06:40] LABS: Anion Gap 12 (12-20); Blood Urea Nitrogen 19 mg/dL (9-16); Carbon Dioxide 28 mmol/L (22-29); Chloride 103 mmol/L (96-108); Creatinine Clr Calc Pharmacy 114.7; Estimated Glomerular Filt Rate > 60; Glucose Random 153 mg/dL (60-115); Potassium 4.2 mmol/L (3.3-5.1); Sodium 139 mmol/L (135-145)
[2021-09-22] MEDS: Furosemide 20 MG TABLET 60 MG PO (09:28)
[2021-09-22] MEDS: Levothyroxine Sodium 150 MCG TABLET PO (09:28)
[2021-09-22] MEDS: 0.9 % Sodium Chloride Flush 3 ML SYRINGE IVFLUSH ×3 (09:30→19:31)
--- NOTE | 2021-09-22 10:08 | P.CDIC_ITS ---
CDI Concurrent Query Documentation Clarification: PHYSICIAN'S DOCUMENTATION REQUEST Date of Query: 09/22/21 1008 Patient Name: Enrique Monahan Admit Date: 09/20/21 Dear Doctor, A review of the medical record indicates additional documentation may be needed. Please review below and update the documentation accordingly. Clinical Indicators: Risk Factors/Clinical Indicators/Treatments PMH: Congestive heart failure Home medication: Furosemide 40 mg po & 60 mg po. PMH of HFrEF (2020) Please provide further specificity regarding the most likely type and acuity of CHF you are evaluating, treating, or monitoring. Examples include: Type: * Systolic * Diastolic * Combined Systolic/Diastolic * Other ? please specify * Unable to determine Acuity: * Chronic * Acute on chronic * Unable to determine Use of terms such as suspected, likely, concern for, or probable (associated with a specific diagnosis that is being evaluated, monitored, or treated as if it exists) are acceptable and can be coded in the inpatient setting, when documented at the time of discharge. Thank you, Gerri King [facility], CDIS Extension: [phone] Please use your independent medical judgment in providing your response. THIS QUERY IS PART OF THE PERMANENT MEDICAL RECORD Other Diagnosis: Chronic HFpEF
--- NOTE | 2021-09-22 13:50 | HO.POSTANES ---
Post Anesthesia Evaluation Post Anesthesia Evaluation Vital Signs: Vital Signs Temp Pulse Resp BP Pulse Ox 09/22/21 11:19 97.7 F 83 20 100/62 98 09/22/21 07:41 97.0 F 79 20 98/59 L 96 09/22/21 03:36 96.2 F L 80 16 99/57 L 96 Anesthesia: Monitored Mental Status: Awake Pain Control: Satisfactory Nausea/Vomiting: None Hydration: Adequate Anesthesia-Related Issues: No Anes. Related Issues
--- NOTE | 2021-09-22 14:16 | HO.PM.IMPN ---
Subjective Subjective Date of Service: 09/22/21 Review of Systems follow-up thrombocytopenia No active bleeding Denies chest pain, shortness breath, nausea, vomiting, diarrhea Physical Exam Vital Signs: Vital Signs: Last Vital Signs Temp 97.7 F 09/22/21 11:19 Pulse 83 09/22/21 11:19 Resp 20 09/22/21 11:19 BP 100/62 09/22/21 11:19 Pulse Ox 98 09/22/21 13:57 BMI result Body Mass Index 21.7 Appearing in no acute distress ?lung sounds are clear to auscultation ?heart regular rate rhythm, clear? S1, S2 ?positive bowel sounds, abdomen is soft, nontender ?neuro patient is alert x3, no focal deficits ?Petechiae noted to bilateral lower extremities Objective Data Active Medications Acetaminophen (Acetaminophen 325 Mg Tablet) 650 mg PO Q6H PRN PRN Reason: Pain, Mild (Pain Scale 1-3) Furosemide (Furosemide 20 Mg Tablet) 60 mg PO DAILY [facility]; Protocol Last Admin: 09/22/21 09:28 Dose: 60 mg Documented by: JOSE JUAN Furosemide (Furosemide 40 Mg Tablet) 40 mg PO DAILY@1700 [facility]; Protocol Last Admin: 09/21/21 16:56 Dose: 40 mg Documented by: YADIRA Lactated Ringer's (Lr) 1,000 mls @ 50 mls/hr IVCONT .Q20H [facility] Last Admin: 09/22/21 11:12 Dose: Not Given Documented by: JOSE JUAN Non-Admin Reason: pre op order Levothyroxine Sodium (Levothyroxine Sodium 150 Mcg Tablet) 150 mcg PO DAILY [facility] Last Admin: 09/22/21 09:28 Dose: 150 mcg Documented by: JOSE JUAN Melatonin (Melatonin 3 Mg Tablet) 6 mg PO BEDTIME PRN PRN Reason: Insomnia Patient Own Med ( Ivabradine [Corlanor ] 5 Mg Tablet) 1 each PO BID [facility] Last Admin: 09/22/21 09:30 Dose: 1 each Documented by: JOSE JUAN Patient Own Med ( Eplerenone 25 Mg Tablet) 1 each PO DAILY [facility] Last Admin: 09/22/21 09:30 Dose: 1 each Documented by: JOSE JUAN Pharmacy Consult (Consult Rx Perform Med Rec) 1 each MISCELLANE ONCE PRN PRN Reason: Consult order Senna (Sennosides 8.6 Mg Tablet) 17.2 mg PO BEDTIME PRN PRN Reason: Constipation Sodium Chloride (0.9 % Sodium Chloride Flush 3 Ml Syringe) 3 ml IVFLUSH QSHIFT [facility] Last Admin: 09/22/21 09:30 Dose: 3 ml Documented by: JOSE JUAN Labs CBC & Chem 7: 09/22/21 06:17 09/22/21 06:17 Labs: Laboratory Results - last 24 hr 09/20/21 09/20/21 09/21/21 19:11 22:53 18:29 MCV MCH MCHC RDW Plt Count MPV Absolute Nucleated RBC Nucleated RBC % (auto) Anion Gap Estim Creat Clear Calc Estimated GFR Random Glucose Calcium Respiratory Panel [place] See Note Adenovirus (Rapid PCR) Not Detected B.pert (TEM-PCR) Not Detected B.parapertussis DNA PCR Not Detected C. pneumoniae DNA (PCR) Not Detected Coronavirus OC43 (PCR) Not Detected Coronavirus HKU1 (PCR) Not Detected Coronavirus 229E (PCR) Not Detected COVID-19 (SHANICE) Negative COVID-19 Clin Com See Note Coronavirus NL63 (PCR) Not Detected Hepatitis A IgM Ab Nonreactive Human Metapneumovir PCR Not Detected Influenza A (RT-PCR) Not Detected Influenza B (RT-PCR) Not Detected M. pneumoniae (PCR) Not Detected Parainfluenza 1 (PCR) Not Detected Parainfluenza 2 (PCR) Not Detected Parainfluenza 3 (PCR) Not Detected Parainfluenza 4 (PCR) Not Detected RSV (PCR) Not Detected Entero/Rhino (PCR) Not Detected SARS-CoV-2 RNA (RT-PCR) Detected A 09/22/21 09/22/21 06:17 06:17 MCV 89.8 MCH 29.7 MCHC 33.1 RDW 16.0 Plt Count 48 L D MPV TNP Absolute Nucleated RBC 0.000 Nucleated RBC % (auto) 0.0 Anion Gap 12 Estim Creat Clear Calc 114.7 Estimated GFR > 60 Random Glucose 153 H Calcium 9.0 Respiratory Panel [place] Adenovirus (Rapid PCR) B.pert (TEM-PCR) B.parapertussis DNA PCR C. pneumoniae DNA (PCR) Coronavirus OC43 (PCR) Coronavirus HKU1 (PCR) Coronavirus 229E (PCR) COVID-19 (SHANICE) COVID-19 Clin Com Coronavirus NL63 (PCR) Hepatitis A IgM Ab Human Metapneumovir PCR Influenza A (RT-PCR) Influenza B (RT-PCR) M. 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 Severe thrombocytopenia. Patient's platelet on presentation noted to be 2000.? Denies any active signs of bleeding.? Hemoglobin stable.? Differential diagnosis includes ITP, drug-induced thrombocytopenia ( on lasix but has been for a long time, started on new med corlanor no evidence found re thrombocytopenia, Myeloproliferative disorder hx of HL Patient had normal platelets in June of 2021 CT head showed no acute findings.? 2 units of PLT tx and decadron s/p bone marrow biopsy today HIV, hepatitis panel, respiratory viral panel, tick panel, ARIN screen pending Liver panel within normal limits Hold home aspirin COVID-19. Essentially asymptomatic Not necessitating any oxygen or steroid treatment Infectious Disease following Mood Feeling depressed and anxious Will consult care team Chronic HFPEF Status post AICD.? Continue home Lasix. History of hypothyroidism Continue home levothyroxine DVT prophylaxis:? SCD boots Code status: Full code Attending Dr. Rojas Patient requires continued hospitalization due to pending results of bone marrow biopsy and continued thrombocytopenia Quality Stroke Does the patient have a stroke diagnosis?: No VTE Prior VTE?: No VTE Risk Level:: Medical - moderate - high VTE Device Contraindication: N/A - Device Ordered VTE Drug Contraindication: Treatment Not Indicated
--- NOTE | 2021-09-22 15:46 | MHC.CM.PN ---
Male 60 DX Thrombocytopenia He lives with his and 2 kids. DP home with Family transport. The patient is aware that if dc needs change, CM will address and refer as needed.
[2021-09-22] MEDS: Furosemide 40 MG TABLET PO (16:22)
[2021-09-22] MEDS: LORazepam 0.5 MG TABLET PO (16:22)
--- NOTE | 2021-09-22 17:31 | MHC.CARE ---
CARE Team speaks with pt after receiving a consult request for Depression.? Pt stated that he has no hx of depression, SI, HI, , and self-harm urges.? Pt denies SI, HI, , and self-harm urges.? He explains that his ?depression? is related to his medical uncertainty, his illness, what his family is going through with his illness, and what he is ?putting? his family through with his illness.? He explains that this has been going on for ?a few days?.? Pt stated that he is anxious more so than depressed and a bit angry as well.? Pt stated that he would be less anxious if he had regular updates, even if there was no significant update to be had.? He wants to know where he is in the process.? Pt expressed that he feels like he has been ?put off to the side?.? He reports a lack of visitors and not knowing where he is in the process as major contributors to his anxiety. CARE Team advised pt that they would notify Dr. Merchant and Dr. [place].
[2021-09-23 03:44] VITALS: BP 103/55; PULSE 69; RESP 16; TEMP 36.7
[2021-09-23 07:43] VITALS: BP 101/53; PULSE 69; RESP 17; TEMP 36.4; O2SAT 97
[2021-09-23] MEDS: Levothyroxine Sodium 150 MCG TABLET PO (08:04)
[2021-09-23] MEDS: 0.9 % Sodium Chloride Flush 3 ML SYRINGE IVFLUSH (08:04)
[2021-09-23] MEDS: Furosemide 20 MG TABLET 60 MG PO (08:04)
[2021-09-23 08:46] LABS: Basophils Percent Auto 0.1 % (0-2); Eosinophils Percent Auto 0.1 % (0-4); Hematocrit 39.7 % (42.0-52.0); Hemoglobin 12.7 g/dl (14.0-18.0); Imm Gran Abs Auto 0.12 X10*3/uL (0.00-0.03); Imm Gran Pct Auto 0.7 % (0.0-0.4); Lymphocytes Absolute Auto 1.1 X10*3/uL (1.2-4.9); Lymphocytes Percent Auto 6.1 % (20-40); MANUAL DIFF FLAG SCAN; Mean Corpuscular Hemoglobin 29.4 pg (27.0-33.0); Mean Corpuscular Volume 91.9 fL (80.0-98.0); Mean Platelet Volume 11.8 fL (9.4-12.4); Monocytes Absolute Auto 1.6 X10*3/uL (0.1-1.2); Neutrophils Absolute Auto 15.1 x10*3/uL (2.0-8.3); Red Blood Count 4.32 X10*6/uL (4.60-5.80); Red Cell Distribution Width 16.7 % (11.0-16.0); SCAN SMEAR FLAG 1; White Blood Count 17.9 X10*3/uL (4.8-10.8)
[2021-09-23 08:47] LABS: Platelet Count 74 X10*3/uL (160-400)
[2021-09-23 09:32] LABS: SLIDE REVIEW VERIFIED
[2021-09-23] MEDS: ondansetron HCL 4 MG/2 ML VIAL IVPUSH (10:22)
[2021-09-23 11:10] VITALS: BP 102/56; PULSE 79; RESP 17; TEMP 36.2; O2SAT 97
[2021-09-23] MEDS: Omeprazole 20 MG CAPSULE.DR PO (11:42)
[2021-09-23] MEDS: dexAMETHasone 4 MG TABLET 40 MG PO (11:45)
--- NOTE | 2021-09-23 13:30 | PM.DS ---
DS: Providers Provider Date of Service: 09/23/21 Date of admission: 09/20/21 22:29 Date of discharge: 09/23/21 Primary care physician: Yesica Kay MD Consults: 09/22/21 14:22 Consult to Care Team Routine Comment: Reason for consultation: depression Attending physician on discharge: Pancho Rojas Discharging clinician: Marian Stevens DS: Diagnosis Discharge Diagnosis (1) Thrombocytopenia: Status: Acute (2) COVID-19: Status: Acute DS: Summary Hospital Course Hospital Course: From H&P on day of admission 60-year-old male with a past medical history of anemia, severe aortic stenosis, history of bioprosthetic heart valve, LBBB, CHF status post AICD, hypothyroidism, history of complete heart block, history of Hodgkin's lymphoma, 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 Patient denies any headaches blurry visions, chest pain or palpitations, denies any signs of infection or recent viral infections; denies any numbness tingling or focal weakness.? Reports mild swelling of his ankles.? Review of all other systems is negative except mentioned above ER course: Per ER team patient noted to have platelets of 2000.? CT head showed no acute findings.? Discussed with Dr. Merchant-recommended blood transfusion and admission for possible bone marrow biopsy in the morning. Severe thrombocytopenia. Patient's platelet on presentation noted to be 2000.?No active bleeding.? H/H stable. Patient had normal platelets in June of 2021. CT head showed no acute findings.? Patient was seen in consultation with Hematology. Differential diagnosis includes ITP, drug-induced thrombocytopenia (on lasix but has been for a long time, started on new med corlanor no evidence found re thrombocytopenia), Myeloproliferative disorder hx of Hodgkin lymphoma and viral induced secondary to covid 19. No evidence of DIC or TTP/HUS He received 2 units of platelts and was started on decadron. He underwent bone marrow biopsy 09/22/21 and results are pending at this time. HIV, hepatitis panel panel negative. respiratory viral panel did return positive for COVID 19. Tick panel, [facility] screen pending at the time of discharge. Home dose of aspirin was placed [place] [id number] [place] day of discharge. Patient recommended to complete 5 days Decadron, he will be discharged home with 2 more days. He was started Prilosec for GI prophylaxis during treatment with steroids. He reports having Prilosec at home and does not need a prescription. He should follow up with hematology as outpatient. Repeat labs should be obtained on monday. Hold aspirin until outpatient follow up. Monitor for signs of bleeding (discussed with patient and over the phone) COVID-19. He has been asymptomatic. Recommended to isolate per CDC guidelines. Monitor resiratoy status. Time Spent with Patient Time attestation: Total time spent providing and/or coordinating discharge services: Discharge coordination time: Greater than 30 minutes Quality: Stroke Does the patient have a stroke diagnosis?: No Physical Exam Vital Signs: Vital Signs: Last Vital Signs Temp 97.1 F 09/23/21 11:10 Pulse 79 09/23/21 11:10 Resp 17 09/23/21 11:10 BP 102/56 L 09/23/21 11:10 Pulse Ox 97 09/23/21 11:10 BMI result Body Mass Index 21.7 Const: Other: Chronically ill-appearing General: cooperative, alert and awake Nutritional Appearance: thin Resp: Effort & Inspection: normal respiratory effort and able to speak in complete sentences Cardio: Rate: regular rate Heart sounds: S1 normal heart sound present and S2 normal heart sound present GI: Palpation (GI): Soft to palpation and nontender Skin: Other: pale; scattered bruising on extremities Neuro: Other: no focal neuro deficits Extrem: Other: no leg edema DS: Data Data Completed and Pending Completed studies during hospitalization [Text1]: Procedures Excision of Stomach, Pylorus, Via Natural or Artificial Opening Endoscopic, Diagnostic (01/13/21) Inspection of Lower Intestinal Tract, Via Natural or Artificial Opening Endoscopic (01/13/21) Reposition Left Upper Femur with Internal Fixation Device, Percutaneous Approach (01/25/21) Transfusion of Nonautologous Red Blood Cells into Peripheral Vein, Percutaneous Approach (01/25/21) Pending studies at discharge: Pending at discharge 09/21/21 14:16 Surgical [PTH] Stat Labs on day of discharge: Laboratory Results - last 24 hr 09/23/21 08:24 WBC 17.9 H RBC 4.32 L Hgb 12.7 L Hct 39.7 L MCV 91.9 MCH 29.4 MCHC 32.0 RDW 16.7 H Plt Count 74 L D MPV 11.8 Immature Gran % (Auto) 0.7 H Neut % (Auto) 84.0 H Lymph % (Auto) 6.1 L [place] % (Auto) 9.0 Eos % (Auto) 0.1 Baso % (Auto) 0.1 Lymph # (Auto) 1.1 L [place] # (Auto) 1.6 H Eos # (Auto) 0.0 Baso # (Auto) 0.0 Abs Immat Gran (auto) 0.12 H Absolute Neuts (auto) 15.1 H Absolute Nucleated RBC 0.000 Nucleated RBC % (auto) 0.0 Smear Tech's Comments VERIFIED Discharge Plan Discharge Patient Disposition: Home, Self-Care Discharge Diagnosis: COVID 19 severe thrombocytopenia Referrals: Britany Merchant MD [Physician] - 1 Week Yesica Burden MD [Primary Care Provider] - 1 Week Discharge Medications: New dexamethasone 20 mg tablet 40 mg PO DAILY 2 Days Qty: 4 0RF Continued ferrous sulfate 325 mg (65 mg iron) tablet 325 mg PO DAILY 90 Days Qty: 90 1RF levothyroxine 150 mcg tablet 150 mcg PO DAILY 30 Days Qty: 30 3RF eplerenone 25 mg tablet 25 mg PO DAILY Qty: 90 3RF Corlanor 5 mg tablet 5 mg PO BID 90 Days Qty: 180 1RF Rx Instructions: must administer with a meal/food furosemide 40 mg Tablet 60 mg PO DAILY 0RF furosemide 40 mg tablet 40 mg PO DAILY@1700 0RF Held aspirin 81 mg tablet,delayed release (DR/EC) 81 mg PO DAILY Qty: 90 3RF Hold Instructions: until follow up with hematology Discharge Orders: Discharge Order (Routine); Ordered 09/23/21 Ordered By: Marian Stevens Activity on Discharge: As tolerated Stand Alone Forms: Patient Portal Discharge page, Work/School Release Other Ambulatory Orders: Complete Blood Count Auto Diff (Routine) Timeframe: [id number] Facility: [facility] - Location: Laboratory Ordered By: Marian Stevens Care Plan Goals: Resolution of thrombocytopenia, COVID Health Concerns: Severe thrombocytopenia COVID-19 Plan of Treatment: Covid 19 - isolate per CDC guidelines for asymptomatic patients - from day of positive test (09/20/2021) - monitor respiratory status. Go to ED with shortness of breath Call work connection to determine date eligible to return to work Call to schedule follow up appointment with hematology Please have your CBC repeated on Monday Finish course of steroids (2 more days) while you are taking decadron please take prilosec Monitor for signs of bleeding Do not take medications that affect your platelet such as aspirin until you follow up with Osteology Teacher CDC Guidelines for home isolation: - Stay away from others - Limit contact with pets and animals: If you must care for a pet, wash your hands before and after interacting with them - Wear a mask if you are sick - Cover your mouth and nose with a tissue when you cough or sneeze. Dispose of tissues in a lined trash can and wash your hands immediately with soap and water for at least 20 seconds. If soap and water are not available, clean hands with alcohol-based hand diaper machine tender that contains at least 60% alcohol. - Clean your hands often with soap and water for at least 20 seconds - Avoid touching your eyes, nose and mouth with unwashed hands - Do not share dishes, drinking glasses, cups, eating utensils, towels, or bedding with other people in your home. After using these items, wash them thoroughly with soap and water or put in the fly frame tender. - Clean high-touch surfaces in your isolation area every day; let a caregiver clean and disinfect high-touch surfaces in other areas of the home. Clean the area or item with soap and water or another detergent if it is dirty. Then, use a household disinfectant. Seek medical attention, but call first: - Seek medical care right away if your illness is worsening (for example, if you have difficulty breathing). - Call your doctor before going in: Before going to the doctor???s office or emergency room, call ahead and tell them your symptoms. They will tell you what to do. - If possible, put on a facemask before you enter the building. If you can???t put on a facemask, try to keep a safe distance from other people (at least 6 feet away). This will help protect the people in the office or waiting room. - Follow care instructions from your healthcare provider and local health department: Your local health authorities will give instructions on checking your symptoms and reporting information. Emergency warning signs for COVID-19: - Difficulty breathing or shortness of breath - Persistent pain or pressure in the chest - New confusion or inability to arouse - Bluish lips or face Assessment: Severe thrombocytopenia, asymptomatic covid 19 Discharge Date/Time: 09/23/21 15:35
--- NOTE | 2021-09-23 13:34 | MHC.CM.PN ---
Male 60 DX COVID He is discharged today to home with family assist and transportation.
[2021-09-23 14:00] VITALS: O2SAT 98
[2021-09-23 23:56] LABS: Anti Nuclear Antibody Pattern Nuclear, Homogeneous; Anti Nuclear Antibody Screen POSITIVE (NEGATIVE)
[2021-09-24 05:12] LABS: A. Phagocytophilum Ab IgG <1:64 (<1:64); A. Phagocytophilum Ab IgM <1:20 (<1:20); E. Chaffeensis Ab IgG <1:64 (<1:64); E. Chaffeensis Ab IgM <1:20 (<1:20)
[2021-09-24 17:57] LABS: A. Phagocytphilium DNA,RT-PCR NOT DETECTED (NOT DETECTED); Babesia Microti DNA, RT-PCR NOT DETECTED (NOT DETECTED); Borrelia Miyamotoi,DNA RT-PCR NOT DETECTED (NOT DETECTED); E.Chaffeensis DNA RT-PCR NOT DETECTED (NOT DETECTED); Lyme(Borrelia ssp)DNA RT-PCR NOT DETECTED (NOT DETECTED); Source-Tick borne disease WHOLE BLOOD
== END 2021-09-23 15:35 | disposition home or self-care (01) | DRG 661 ==
LOC: HO.ED 20:23 → HO.EDOVER 22:35 → HO.IMC 09-21 18:49
PROVIDERS: Internal Medicine Medical Oncology; Nurse Practitioner Acute Care; Admitting Provider Hospitalist; Emergency Provider Internal Medicine; PCP Internal Medicine; Visit Provider Physician Assistant Medical
PROC: 079T3ZX Drainage of Bone Marrow, Percutaneous Approach, Diagnostic (ICD-10-PCS; CPT 38221; principal; 2021-09-21 14:00)
DX: D69.3 Immune thrombocytopenic purpura (principal); U07.1 COVID-19; I44.2 Atrioventricular block, complete; I50.22 Chronic systolic (congestive) heart failure; E03.9 Hypothyroidism, unspecified; Z85.71 Personal history of Hodgkin lymphoma; Q85.8 Other phakomatoses, not elsewhere classified; Z80.0 Family history of malignant neoplasm of digestive organs; Z95.2 Presence of prosthetic heart valve; Z86.711 Personal history of pulmonary embolism; Z79.890 Hormone replacement therapy; Z95.810 Presence of automatic (implantable) cardiac defibrillator; Z79.82 Long term (current) use of aspirin; Z79.899 Other long term (current) drug therapy
CPT/HCPCS: 36415; 70450; 80048; 80053; 85025; 85027; 85097; 85379; 85384; 85610; 85730; 86038; 86039; 86666; 86704; 86706; 86709; 86803; 86850; 86900; 86901; 87340; 87389; 87633; 87635; 87798; 87801; 88184; 88185; 88237; 88264; 88300; 88305; 88311; 88313; 99285; J1100; J1642; J2060; J2250; J2405; J3010; J8540; P9035; P9073

== ENCOUNTER 2021-09-27 09:07 | Outpatient (REF) | payer OTHER, SELFPAY ==
[2021-09-27 10:26] LABS: Basophils Percent Auto 0.2 % (0-2); Red Cell Distribution Width 16.5 % (11.0-16.0); SCAN SMEAR FLAG 1
[2021-09-27 10:28] LABS: Eosinophils Absolute Auto 0.2 X10*3/uL (0.0-0.4); Hematocrit 43.8 % (42.0-52.0); Hemoglobin 14.5 g/dl (14.0-18.0); Imm Gran Abs Auto 0.47 X10*3/uL (0.00-0.03); Imm Gran Pct Auto 2.8 % (0.0-0.4); Lymphocytes Absolute Auto 1.3 X10*3/uL (1.2-4.9); Lymphocytes Percent Auto 7.7 % (20-40); MANUAL DIFF FLAG SCAN; Mean Corpuscular HGB Conc 33.1 g/dl (31.0-36.0); Mean Corpuscular Volume 90.5 fL (80.0-98.0); Monocytes Absolute Auto 2.3 X10*3/uL (0.1-1.2); Neutrophils Absolute Auto 12.3 x10*3/uL (2.0-8.3); Neutrophils Percent Auto 74.3 % (45-73); Red Blood Count 4.84 X10*6/uL (4.60-5.80); White Blood Count 16.5 X10*3/uL (4.8-10.8)
[2021-09-27 10:29] LABS: PLT ABN DIST 1
[2021-09-27 10:30] LABS: Platelet Count 22 X10*3/uL (160-400)
[2021-09-27 11:03] LABS: SLIDE REVIEW VERIFIED
== END 2021-09-27 09:08 | disposition home or self-care (01) ==
LOC: HO.LAB 09:07
PROVIDERS: PCP Internal Medicine; Visit Provider Internal Medicine Medical Oncology
DX: D64.9 Anemia, unspecified (principal); D69.3 Immune thrombocytopenic purpura
CPT/HCPCS: 36415; 85025

== ENCOUNTER 2021-10-07 12:28 | Outpatient (REF) | payer OTHER, SELFPAY ==
[2021-10-07 13:37] LABS: Basophils Percent Auto 0.2 % (0-2); Monocytes Percent Auto 4.1 % (2-11); PLT CLUMP 1; SCAN SMEAR FLAG 1
[2021-10-07 13:39] LABS: Hematocrit 41.5 % (42.0-52.0); Hemoglobin 13.8 g/dl (14.0-18.0); Imm Gran Abs Auto 0.17 X10*3/uL (0.00-0.03); Imm Gran Pct Auto 0.8 % (0.0-0.4); Lymphocytes Absolute Auto 0.7 X10*3/uL (1.2-4.9); Lymphocytes Percent Auto 2.9 % (20-40); MANUAL DIFF FLAG SCAN; Mean Corpuscular HGB Conc 33.3 g/dl (31.0-36.0); Mean Corpuscular Hemoglobin 30.6 pg (27.0-33.0); Monocytes Absolute Auto 0.9 X10*3/uL (0.1-1.2); Neutrophils Absolute Auto 20.3 x10*3/uL (2.0-8.3); Red Blood Count 4.51 X10*6/uL (4.60-5.80); Red Cell Distribution Width 17.7 % (11.0-16.0)
[2021-10-07 13:40] LABS: White Blood Count 22.1 X10*3/uL (4.8-10.8)
[2021-10-07 13:41] LABS: Platelet Count 43 X10*3/uL (160-400)
[2021-10-07 13:56] LABS: SLIDE REVIEW VERIFIED
[2021-10-07 14:26] LABS: Alanine Aminotransferase 24 U/L (0-40); Albumin Level 3.8 g/dL (3.5-5.0); Alkaline Phosphatase 63 U/L (39-117); Anion Gap 11 (12-20); Aspartate Amino Transferase 21 U/L (5-37); Bilirubin Total 0.8 mg/dL (0.0-1.0); Blood Urea Nitrogen 26 mg/dL (9-16); Calcium 8.7 mg/dL (8.4-10.2); Carbon Dioxide 33 mmol/L (22-29); Chloride 98 mmol/L (96-108); Estimated Glomerular Filt Rate > 60; Glucose Random 106 mg/dL (60-115); Sodium 138 mmol/L (135-145); Total Protein 6.7 g/dL (6.5-8.0)
[2021-10-07 14:28] LABS: Thyroid Stimulating Hormone 5.94 uIU/mL (0.32-4.0)
[2021-10-07 14:29] LABS: Free T4 (Free Thyroxine) 1.16 ng/dL (0.71-1.85); Thyroid Stimulating Hormone 5.78 uIU/mL (0.32-4.0)
[2021-10-08 07:57] LABS: HBc Num1 0.08 S/CO (0.00-0.79); HBsAGNum1 0.19 S/CO (0.00-0.99); Hepatitis B Core Antibody Nonreactive (Nonreactive); Hepatitis B Surface Antigen Negative (Negative)
[2021-10-08 08:09] LABS: HBS Num1 1.73 mIU/mL (0-7.99); ~Hepatitis B Surface Antibody NONREACTIVE (Nonreactive)
== END 2021-10-07 12:29 | disposition home or self-care (01) ==
LOC: HO.LAB 12:28
PROVIDERS: Internal Medicine; PCP Internal Medicine; Visit Provider Internal Medicine Medical Oncology
DX: E03.9 Hypothyroidism, unspecified (principal); D69.3 Immune thrombocytopenic purpura
CPT/HCPCS: 36415; 80053; 84439; 84443; 85025; 86704; 86706; 87340

== ENCOUNTER 2021-10-14 13:57 | Outpatient (REF) | payer OTHER, SELFPAY ==
[2021-10-14 14:18] LABS: Basophils Percent Auto 0.1 % (0-2); Hematocrit 41.9 % (42.0-52.0); Imm Gran Abs Auto 0.15 X10*3/uL (0.00-0.03); Imm Gran Pct Auto 0.9 % (0.0-0.4); Lymphocytes Absolute Auto 0.4 X10*3/uL (1.2-4.9); Lymphocytes Percent Auto 2.6 % (20-40); MANUAL DIFF FLAG SCAN; Mean Corpuscular HGB Conc 33.4 g/dl (31.0-36.0); Mean Corpuscular Hemoglobin 30.4 pg (27.0-33.0); Mean Corpuscular Volume 90.9 fL (80.0-98.0); Mean Platelet Volume 10.5 fL (9.4-12.4); Monocytes Absolute Auto 0.7 X10*3/uL (0.1-1.2); Monocytes Percent Auto 4.3 % (2-11); Neutrophils Absolute Auto 14.6 x10*3/uL (2.0-8.3); Neutrophils Percent Auto 92.1 % (45-73); Platelet Count 228 X10*3/uL (160-400); Red Blood Count 4.61 X10*6/uL (4.60-5.80); Red Cell Distribution Width 17.2 % (11.0-16.0); SCAN SMEAR FLAG 1; White Blood Count 15.9 X10*3/uL (4.8-10.8)
[2021-10-14 14:37] LABS: SLIDE REVIEW VERIFIED
[2021-10-14 14:49] LABS: Alanine Aminotransferase 21 U/L (0-40); Alkaline Phosphatase 66 U/L (39-117); Anion Gap 15 (12-20); Aspartate Amino Transferase 17 U/L (5-37); Bilirubin Total 0.8 mg/dL (0.0-1.0); Blood Urea Nitrogen 26 mg/dL (9-16); Calcium 9.3 mg/dL (8.4-10.2); Carbon Dioxide 29 mmol/L (22-29); Chloride 98 mmol/L (96-108); Estimated Glomerular Filt Rate > 60; Glucose Random 131 mg/dL (60-115); Potassium 4.7 mmol/L (3.3-5.1); Sodium 137 mmol/L (135-145); Total Protein 6.8 g/dL (6.5-8.0)
== END 2021-10-14 13:58 | disposition home or self-care (01) ==
LOC: HO.LAB 13:57
PROVIDERS: PCP Internal Medicine; Visit Provider Internal Medicine Medical Oncology
DX: D69.6 Thrombocytopenia, unspecified (principal)
CPT/HCPCS: 36415; 80053; 85025

== ENCOUNTER 2021-10-21 13:13 | Outpatient (REF) | payer OTHER, SELFPAY ==
[2021-10-21 14:11] LABS: Basophils Percent Auto 0.2 % (0-2); Hematocrit 45.7 % (42.0-52.0); Hemoglobin 15.1 g/dl (14.0-18.0); Imm Gran Pct Auto 1.8 % (0.0-0.4); Lymphocytes Absolute Auto 0.5 X10*3/uL (1.2-4.9); MANUAL DIFF FLAG SCAN; Mean Corpuscular Hemoglobin 30.2 pg (27.0-33.0); Mean Corpuscular Volume 91.4 fL (80.0-98.0); Monocytes Absolute Auto 0.4 X10*3/uL (0.1-1.2); Monocytes Percent Auto 2.2 % (2-11); Neutrophils Absolute Auto 15.2 x10*3/uL (2.0-8.3); Neutrophils Percent Auto 92.8 % (45-73); Red Cell Distribution Width 17.4 % (11.0-16.0); SCAN SMEAR FLAG 1; White Blood Count 16.4 X10*3/uL (4.8-10.8)
[2021-10-21 14:13] LABS: Platelet Count 21 X10*3/uL (160-400)
[2021-10-21 14:25] LABS: SLIDE REVIEW VERIFIED
[2021-10-21 14:43] LABS: Alanine Aminotransferase 22 U/L (0-40); Albumin Level 4.1 g/dL (3.5-5.0); Alkaline Phosphatase 57 U/L (39-117); Anion Gap 18 (12-20); Aspartate Amino Transferase 25 U/L (5-37); Bilirubin Total 0.7 mg/dL (0.0-1.0); Blood Urea Nitrogen 28 mg/dL (9-16); Calcium 9.5 mg/dL (8.4-10.2); Carbon Dioxide 28 mmol/L (22-29); Chloride 97 mmol/L (96-108); Estimated Glomerular Filt Rate > 60; Glucose Random 117 mg/dL (60-115); Potassium 4.7 mmol/L (3.3-5.1); Sodium 138 mmol/L (135-145); Total Protein 6.9 g/dL (6.5-8.0)
[2021-10-21 14:58] LABS: Thyroid Stimulating Hormone 3.44 uIU/mL (0.32-4.0)
[2021-10-22 07:41] LABS: HBsAGNum1 0.14 S/CO (0.00-0.99); Hepatitis B Surface Antigen Negative (Negative)
[2021-10-22 07:44] LABS: HBS Num1 1.69 mIU/mL (0-7.99); HBc Num1 0.06 S/CO (0.00-0.79); Hepatitis B Core Antibody Nonreactive (Nonreactive); ~Hepatitis B Surface Antibody NONREACTIVE (Nonreactive)
== END 2021-10-21 13:14 | disposition home or self-care (01) ==
LOC: HO.LAB 13:13
PROVIDERS: PCP Internal Medicine; Visit Provider Internal Medicine Medical Oncology
DX: D69.3 Immune thrombocytopenic purpura (principal)
CPT/HCPCS: 36415; 80053; 84443; 85025; 86704; 86706; 87340

== ENCOUNTER 2021-10-28 13:14 | Outpatient (REF) | payer OTHER, SELFPAY ==
[2021-10-28 13:36] LABS: Basophils Percent Auto 0.2 % (0-2); Hematocrit 45.4 % (42.0-52.0); Hemoglobin 14.8 g/dl (14.0-18.0); Imm Gran Abs Auto 0.19 X10*3/uL (0.00-0.03); Imm Gran Pct Auto 1.1 % (0.0-0.4); Lymphocytes Absolute Auto 0.6 X10*3/uL (1.2-4.9); Lymphocytes Percent Auto 3.1 % (20-40); MANUAL DIFF FLAG SCAN; Mean Corpuscular HGB Conc 32.6 g/dl (31.0-36.0); Mean Corpuscular Hemoglobin 30.3 pg (27.0-33.0); Mean Corpuscular Volume 92.8 fL (80.0-98.0); Mean Platelet Volume 11.1 fL (9.4-12.4); Monocytes Absolute Auto 0.4 X10*3/uL (0.1-1.2); Monocytes Percent Auto 2.1 % (2-11); Neutrophils Absolute Auto 16.9 x10*3/uL (2.0-8.3); Neutrophils Percent Auto 93.5 % (45-73); Platelet Count 145 X10*3/uL (160-400); Red Blood Count 4.89 X10*6/uL (4.60-5.80); Red Cell Distribution Width 17.3 % (11.0-16.0); SCAN SMEAR FLAG 1
[2021-10-28 13:50] LABS: Alanine Aminotransferase 25 U/L (0-40); Albumin Level 4.1 g/dL (3.5-5.0); Alkaline Phosphatase 52 U/L (39-117); Anion Gap 13 (12-20); Aspartate Amino Transferase 23 U/L (5-37); Bilirubin Total 0.5 mg/dL (0.0-1.0); Blood Urea Nitrogen 24 mg/dL (9-16); Calcium 9.7 mg/dL (8.4-10.2); Carbon Dioxide 34 mmol/L (22-29); Chloride 96 mmol/L (96-108); Estimated Glomerular Filt Rate > 60; Glucose Random 139 mg/dL (60-115); Potassium 4.5 mmol/L (3.3-5.1); Sodium 138 mmol/L (135-145); Total Protein 6.8 g/dL (6.5-8.0)
[2021-10-28 14:25] LABS: SLIDE REVIEW VERIFIED
== END 2021-10-28 13:15 | disposition home or self-care (01) ==
LOC: HO.LAB 13:14
PROVIDERS: PCP Internal Medicine; Visit Provider Internal Medicine Medical Oncology
DX: D69.3 Immune thrombocytopenic purpura (principal)
CPT/HCPCS: 36415; 80053; 85025

== ENCOUNTER 2021-11-04 13:15 | Outpatient (REF) | payer OTHER, SELFPAY ==
[2021-11-04 14:09] LABS: Basophils Absolute Auto 0.1 X10*3/uL (0.0-0.2); Basophils Percent Auto 0.3 % (0-2); Hematocrit 46.1 % (42.0-52.0); Hemoglobin 15.2 g/dl (14.0-18.0); Imm Gran Abs Auto 0.26 X10*3/uL (0.00-0.03); Imm Gran Pct Auto 1.4 % (0.0-0.4); Lymphocytes Absolute Auto 1.1 X10*3/uL (1.2-4.9); Lymphocytes Percent Auto 5.6 % (20-40); MANUAL DIFF FLAG SCAN; Mean Corpuscular Hemoglobin 31.3 pg (27.0-33.0); Mean Corpuscular Volume 94.9 fL (80.0-98.0); Mean Platelet Volume 11.8 fL (9.4-12.4); Monocytes Absolute Auto 0.4 X10*3/uL (0.1-1.2); Monocytes Percent Auto 2.2 % (2-11); Neutrophils Percent Auto 90.5 % (45-73); Platelet Count 252 X10*3/uL (160-400); Red Blood Count 4.86 X10*6/uL (4.60-5.80); Red Cell Distribution Width 17.3 % (11.0-16.0); SCAN SMEAR FLAG 1; White Blood Count 18.7 X10*3/uL (4.8-10.8)
[2021-11-04 14:48] LABS: SLIDE REVIEW VERIFIED
[2021-11-04 15:30] LABS: Alanine Aminotransferase 23 U/L (0-40); Albumin Level 3.8 g/dL (3.5-5.0); Alkaline Phosphatase 53 U/L (39-117); Anion Gap 12 (12-20); Aspartate Amino Transferase 24 U/L (5-37); Bilirubin Total 0.5 mg/dL (0.0-1.0); Blood Urea Nitrogen 28 mg/dL (9-16); Calcium 8.9 mg/dL (8.4-10.2); Carbon Dioxide 32 mmol/L (22-29); Chloride 97 mmol/L (96-108); Estimated Glomerular Filt Rate > 60; Glucose Random 111 mg/dL (60-115); Potassium 5.1 mmol/L (3.3-5.1); Sodium 136 mmol/L (135-145); Total Protein 6.5 g/dL (6.5-8.0)
== END 2021-11-04 13:16 | disposition home or self-care (01) ==
LOC: HO.LAB 13:15
PROVIDERS: PCP Internal Medicine; Visit Provider Internal Medicine Medical Oncology
DX: D69.3 Immune thrombocytopenic purpura (principal)
CPT/HCPCS: 36415; 80053; 85025

== ENCOUNTER 2021-11-10 08:11 | Outpatient (REF) | payer OTHER, SELFPAY ==
[2021-11-10 10:28] LABS: Basophils Absolute Auto 0.1 X10*3/uL (0.0-0.2); Basophils Percent Auto 0.2 % (0-2); Hematocrit 43.4 % (42.0-52.0); Hemoglobin 14.2 g/dl (14.0-18.0); Imm Gran Abs Auto 0.22 X10*3/uL (0.00-0.03); Lymphocytes Absolute Auto 1.2 X10*3/uL (1.2-4.9); Lymphocytes Percent Auto 5.3 % (20-40); MANUAL DIFF FLAG SCAN; Mean Corpuscular HGB Conc 32.7 g/dl (31.0-36.0); Mean Corpuscular Hemoglobin 30.5 pg (27.0-33.0); Mean Corpuscular Volume 93.3 fL (80.0-98.0); Mean Platelet Volume 10.8 fL (9.4-12.4); Monocytes Absolute Auto 0.6 X10*3/uL (0.1-1.2); Monocytes Percent Auto 2.6 % (2-11); Neutrophils Percent Auto 90.9 % (45-73); Platelet Count 269 X10*3/uL (160-400); Red Blood Count 4.65 X10*6/uL (4.60-5.80); Red Cell Distribution Width 16.7 % (11.0-16.0); SCAN SMEAR FLAG 1
[2021-11-10 10:49] LABS: Alanine Aminotransferase 24 U/L (0-40); Alkaline Phosphatase 52 U/L (39-117); Anion Gap 13 (12-20); Aspartate Amino Transferase 21 U/L (5-37); Bilirubin Total 0.5 mg/dL (0.0-1.0); Blood Urea Nitrogen 25 mg/dL (9-16); Calcium 9.5 mg/dL (8.4-10.2); Carbon Dioxide 33 mmol/L (22-29); Chloride 96 mmol/L (96-108); Estimated Glomerular Filt Rate > 60; Glucose Random 154 mg/dL (60-115); Potassium 4.6 mmol/L (3.3-5.1); Sodium 137 mmol/L (135-145); Total Protein 6.6 g/dL (6.5-8.0)
[2021-11-10 11:08] LABS: Free T4 (Free Thyroxine) 1.34 ng/dL (0.71-1.85)
[2021-11-10 11:12] LABS: Thyroid Stimulating Hormone 1.21 uIU/mL (0.32-4.0)
[2021-11-10 12:21] LABS: SLIDE REVIEW VERIFIED
== END 2021-11-10 08:12 | disposition home or self-care (01) ==
LOC: HO.LAB 08:11
PROVIDERS: Absent Provider Internal Medicine Medical Oncology; PCP Internal Medicine; Visit Provider Internal Medicine
DX: E03.9 Hypothyroidism, unspecified (principal); D69.3 Immune thrombocytopenic purpura
CPT/HCPCS: 36415; 80053; 84439; 84443; 85025

== ENCOUNTER → 2021-11-11 12:30 | Outpatient (BNVA) | payer OTHER, SELFPAY | PROVIDERS: PCP Internal Medicine; Visit Provider Internal Medicine | DX: Z13.89 Encounter for screening for other disorder (principal) ==

== ENCOUNTER 2021-11-17 13:24 | Outpatient (REF) | payer OTHER, SELFPAY ==
[2021-11-17 13:45] LABS: MANUAL DIFF FLAG NO
[2021-11-17 14:06] LABS: Basophils Absolute Auto 0.1 X10*3/uL (0.0-0.2); Basophils Percent Auto 0.3 % (0-2); Hematocrit 43.9 % (42.0-52.0); Hemoglobin 14.4 g/dl (14.0-18.0); Imm Gran Abs Auto 0.29 X10*3/uL (0.00-0.03); Imm Gran Pct Auto 1.7 % (0.0-0.4); Lymphocytes Absolute Auto 1.4 X10*3/uL (1.2-4.9); Lymphocytes Percent Auto 7.9 % (20-40); Mean Corpuscular HGB Conc 32.8 g/dl (31.0-36.0); Mean Corpuscular Hemoglobin 30.6 pg (27.0-33.0); Mean Corpuscular Volume 93.4 fL (80.0-98.0); Mean Platelet Volume 10.8 fL (9.4-12.4); Monocytes Absolute Auto 0.5 X10*3/uL (0.1-1.2); Monocytes Percent Auto 3.1 % (2-11); Platelet Count 258 X10*3/uL (160-400); Red Cell Distribution Width 16.7 % (11.0-16.0); White Blood Count 17.2 X10*3/uL (4.8-10.8)
[2021-11-17 14:28] LABS: Alanine Aminotransferase 26 U/L (0-40); Albumin Level 3.9 g/dL (3.5-5.0); Alkaline Phosphatase 54 U/L (39-117); Anion Gap 16 (12-20); Aspartate Amino Transferase 22 U/L (5-37); Bilirubin Total 0.4 mg/dL (0.0-1.0); Blood Urea Nitrogen 26 mg/dL (9-16); Calcium 9.4 mg/dL (8.4-10.2); Carbon Dioxide 31 mmol/L (22-29); Chloride 97 mmol/L (96-108); Estimated Glomerular Filt Rate > 60; Glucose Random 115 mg/dL (60-115); Potassium 4.5 mmol/L (3.3-5.1); Sodium 139 mmol/L (135-145); Total Protein 6.5 g/dL (6.5-8.0)
== END 2021-11-17 13:25 | disposition home or self-care (01) ==
LOC: HO.LAB 13:24
PROVIDERS: PCP Internal Medicine; Visit Provider Internal Medicine Medical Oncology
DX: D69.3 Immune thrombocytopenic purpura (principal)
CPT/HCPCS: 36415; 80053; 85025

== ENCOUNTER 2021-11-18 15:06 | Inpatient (IN) | payer OTHER, SELFPAY ==
[2021-11-18] VITALS (23 sets, daily range): BP systolic 82–143; BP diastolic 52–76; PULSE 92–105; RESP 15–21; TEMP 36.4–37.3; O2SAT 93–100; BMI 23.6; BMI 24.5
--- NOTE | 2021-11-18 | ECG_ITS ---
Test Reason : WEAKNESS Blood Pressure : / mmHG Vent. Rate : 093 BPM Atrial Rate : 093 BPM P-R Int : 142 ms QRS Dur : 136 ms QT Int : 408 ms P-R-T Axes : 057 227 058 degrees QTc Int : 507 ms Atrial-sensed ventricular-paced rhythm Abnormal ECG When compared with ECG of 17-JUN-2021 18:03, No significant changes seen Referred By: Generic ED Physician Electronically Signed By:CANDIE ISSA MD
--- NOTE | ~2021-11-18 | XR_ITS ---
EXAMINATION: XR CHEST CLINICAL INFORMATION: Fever COMPARISON: 06/17/2021 TECHNIQUE: Frontal view of the chest was obtained. FINDINGS: Left chest wall pacer remains in place. Aortic valvular hardware. Cardiac leads overlie the chest. The lungs are well expanded. Patchy bilateral airspace opacities are noted. Small right pleural effusion. This may be chronic. No pneumothorax. The cardiomediastinal silhouette is unchanged, with a calcified aorta. Calcification overlies the left apex, unchanged. XR/XR chest 1V IMPRESSION: Chronic changes of the lungs. Small right pleural effusion which may be chronic. Patchy bilateral opacities could be infectious or inflammatory.
--- NOTE | ~2021-11-18 | CT_ITS ---
EXAMINATION: CT HEAD WITHOUT CONTRAST (STROKE PROTOCOL) CLINICAL INFORMATION: Stroke protocol. Right-sided weakness. COMPARISON: CT head of 09/20/2021 and 01/13/2021. TECHNIQUE: Contiguous axial imaging was performed from the skull base to vertex without intravenous administration of contrast. This CT examination was performed using dose optimization techniques as appropriate, variously including the following: *Automated exposure control. *Adjustment of mA and/or kV according to patient size (this includes techniques or standardized protocols for targeted exams where dose is matched to indication/reason for exam; i.e. extremities or head). *Use of iterative reconstruction technique. DLP: 1456 mGy-cm FINDINGS: There is no evidence of acute intracranial hemorrhage, midline shift or mass effect. No evidence of acute territorial edematous infarction. Zhyb-bq-dwbdm matter differentiation is well preserved. No evidence of abnormal extra-axial fluid collection. Ventricles and sulci are normal. No significant abnormal parenchymal attenuation is noted. Osseous calvarium is intact. The visualized paranasal sinuses are well aerated. Stable finding of under pneumatization/sclerosis of the left mastoid air cells. Under-pneumatization of the right mastoid air cells. CT/CT head for stroke IMPRESSION: No acute intracranial pathology. Specifically, there is no evidence of acute edematous territorial infarction or acute intracranial hemorrhage. This critical result was discussed with Dr. Mayorga at 10:16 PM on 11/21/2021. It was ascertained that the content and urgency of the report was understood at the time of direct communication.
[2021-11-18 16:02] LABS: Basophils Absolute Auto 0.1 X10*3/uL (0.0-0.2); Basophils Percent Auto 0.3 % (0-2); Hematocrit 32.3 % (42.0-52.0); Hemoglobin 10.8 g/dl (14.0-18.0); Imm Gran Abs Auto 0.35 X10*3/uL (0.00-0.03); Imm Gran Pct Auto 1.9 % (0.0-0.4); Lymphocytes Absolute Auto 0.6 X10*3/uL (1.2-4.9); Lymphocytes Percent Auto 3.4 % (20-40); MANUAL DIFF FLAG SCAN; Mean Corpuscular HGB Conc 33.4 g/dl (31.0-36.0); Mean Corpuscular Hemoglobin 31.5 pg (27.0-33.0); Mean Corpuscular Volume 94.2 fL (80.0-98.0); Monocytes Absolute Auto 0.5 X10*3/uL (0.1-1.2); Monocytes Percent Auto 2.9 % (2-11); Neutrophils Absolute Auto 17.3 x10*3/uL (2.0-8.3); Neutrophils Percent Auto 91.5 % (45-73); Platelet Count 210 X10*3/uL (160-400); Red Blood Count 3.43 X10*6/uL (4.60-5.80); Red Cell Distribution Width 16.3 % (11.0-16.0); SCAN SMEAR FLAG 1; White Blood Count 18.9 X10*3/uL (4.8-10.8)
--- NOTE | 2021-11-18 16:08 | ED_ITS ---
HPI - General Adult General Chief complaint: Nausea/Vomiting/Diarrhea Stated complaint: vomiting,dizziness Time Seen by Provider: 11/18/21 15:52 Source: patient and family Mode of arrival: wheelchair Limitations: no limitations History of Present Illness HPI narrative: Patient comes to the emergency room complaining of severe weakness, copius black diarrhea, dizziness described as lightheadedness and room spinning, feeling off balance. Patient head his last dose of rituximab on October 29, patient has history of Hodgkin's lymphoma in remission, Val's syndrome, ITP. Patient called Dr. Merchant this morning, he was asked to comment. However, when patient was getting of his car in the parking lot, patient started vomiting blood. Patient denies abdominal pain, patient complaining of generalized malaise and severe weakness Related Data Home Medications Medication Instructions Recorded Confirmed eplerenone 25 mg tablet (Inspra) 25 mg PO DAILY 11/05/21 11/18/21 furosemide 20 mg tablet 40 mg PO DAILY@1800 11/18/21 11/18/21 levothyroxine 125 mcg tablet 300 mcg PO CRUZ 11/18/21 11/18/21 (Synthroid) levothyroxine 150 mcg tablet 150 mcg PO MOTUWETHFRSA 11/18/21 11/18/21 prednisone 20 mg tablet 40 mg PO DAILY 11/18/21 11/18/21 Previous Rx's Medication Instructions Recorded ferrous sulfate 325 mg (65 mg 325 mg PO DAILY 90 Days #90 tab 03/17/21 iron) tablet ivabradine 5 mg tablet (Corlanor) 5 mg PO BID 90 Days #180 tab 09/02/21 prednisone 5 mg tablet 5 mg PO DAILY #100 tab 10/15/21 aspirin 81 mg tablet,delayed 81 mg PO DAILY #90 tab 10/22/21 release furosemide 20 mg tablet 60 mg PO DAILY 90 Days #270 tab 10/28/21 Allergies Allergy/AdvReac Type Severity Reaction Status Date / Time No Known Allergies Allergy Verified 11/11/21 13:13 [No Known Allergies*] Review of Systems Review of Systems: Constitutional : Complaining of weight loss, no fever chills, complaining of fatigue and generalized malaise ENT/Mouth : No Hearing loss, No Ear Pain, No Nasal Congestion, No Sinus Pain, No Hoarseness, No sore throat, No Rhinorrhea, No Swallowing Difficulty Eyes: No Eye Pain, No Swelling, No Redness, No Foreign Body, No Discharge, No Vision Changes Cardiovascular : No Chest Pain, No SOB, No Dyspnea on Exertion, No Orthopnea, No Edema, No Palpitations Respiratory : No Cough, No Sputum, No Wheezing, No Smoke Exposure, No Dyspnea Gastrointestinal : Complaining of black diarrhea, feeling nauseous, vomiting blood. No Constipation, No abdominal Pain, No Hematochezia, No Melena Genitourinary : no irregular bleeding, No Dysuria, No Urinary Frequency, No Hematuria, No Urinary Incontinence, No Urgency, No Flank Pain, No Urinary Flow Changes, No Hesitancy Musculoskeletal : No joint pain, No Myalgias, No Joint Swelling Skin : No Skin Lesions, No rash Neuro : No Weakness, No Numbness, No Paresthesias, No Loss of Consciousness, No Dizziness, No Headache Psych : No Anxiety/Panic, No Depression, No SI/HI/AH/VH, No Social Issues, Heme/Lymph: Patient known to have ITP Endocrine : No Polyuria, No Polydipsia, No Temperature Intolerance PMFSH Past Medical History Medical History Anemia Aortic stenosis, severe Cardiac resynchronization therapy defibrillator (KITCHEN [employer]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) in place Complete heart block Congestive heart failure COVID-19 vaccine series completed 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HFrEF (heart failure with reduced ejection fraction) Hodgkins lymphoma Hypocalcemia Hypotension (arterial) Hypothyroidism LBBB (left bundle branch block) Leukocytosis Low TSH level Multinodular thyroid Multinodular thyroid NICM (nonischemic cardiomyopathy) Osteoporosis Pacemaker Pulmonary embolism Recurrent pleural effusion on right Rib fracture Rib pain Right hip pain Shortness of breath Sinus tachycardia Vitamin D deficiency Surgical History H/O splenectomy History of appendectomy History of cardiac pacemaker History of esophagogastroduodenoscopy (EGD) History of hip surgery Hx of colonoscopy S/P TAVR (transcatheter aortic valve replacement) Family History Family History Father Healthy adult male Mother Bladder cancer Social History Social History Household Members: Spouse and Children Housing: House Are you a primary care management associate to a significant other at home: No Do you presently have visiting nurse or other home services: No Alcohol intake: current Alcohol intake frequency: holidays/special occasions only Patient Tobacco Use Status: Never used Tobacco e-Cigarette/Vaping Use: Never Used Second Hand Smoke Exposure: No Use of substances other than those prescribed or required for medical reasons: No Advance Directives: No Advance Directives Information Provided: No Advance Directives Date on File: 01/25/21 service: Yes Current occupational status: employed Current occupational exposures/hazards: No Physical Exam ED Vital Signs: Vital Signs - 24 hr 11/18/21 15:08 11/18/21 15:13 11/18/21 17:06 Temperature 97.6 F 97.6 F Pulse Rate 93 92 103 H Pulse Rate [Left Apical] Respiratory Rate 20 16 15 Blood Pressure 128/76 128/76 87/57 L Pulse Oximetry 100 100 98 11/18/21 17:07 11/18/21 17:14 11/18/21 17:17 Temperature Pulse Rate 103 H 102 H Pulse Rate [Left Apical] 102 H Respiratory Rate 16 18 Blood Pressure 95/60 85/54 L Pulse Oximetry 99 96 11/18/21 17:24 11/18/21 17:37 Temperature Pulse Rate 101 H 101 H Pulse Rate [Left Apical] Respiratory Rate 18 18 Blood Pressure 95/61 95/61 Pulse Oximetry 99 99 BMI result Body Mass Index 23.6 Const Other: Appearance: Alert. Oriented X3. Ill-appearing, weak, cachectic Eyes: Pupils equal, round and reactive to light. ENT: Pharynx normal. Neck: Normal inspection. Neck supple. No lymph nodes noted. No crepitus CVS: Normal heart rate and rhythm. Pulses normal. Normal S1 and S2 Respiratory: No respiratory distress. Breath sounds normal. No Wheezing. No rales Abdomen: Soft and nontender. No rigidity. No distention. Vomiting blood here in the ED, digital rectal exam shows black tarry stool Skin: Skin warm and dry. Pale Extremities: No lower extremity edema. No Lacerations. No Rash Neuro: Oriented X 3. No motor deficit. No sensory deficit. Moving all extremities. No slurred speech. CN 2 through 12 grossly intact Psych: calm, cooperative Course Course Course Narrative: I discussed the patient with Dr. Merchant from Heme-Onc, we are going to go ahead and start blood transfusion. No irradiated blood needed at this time. Patient's heart rate in the low 100s, blood pressure in the low 90s systolic, consent for blood transfusion has been signed, discussed risks versus benefits with the patient, patient agrees to the blood transfusion. 2 units of blood ordered Dr. Harper from GI is at the patient's bedside, recommends consulting Dr. Leal , since patient follows up with him I spoke with Dr. Leal, he will go ahead and schedule the endoscopy for today, Dr. Leal on his way in to evaluate the patient Patient's lactic acid is 2.5, likely secondary to the GI bleed. Sepsis not suspected. Per GI, antibiotics not recommended at this time. Patient to be admitted to the ICU, Dr. Juan at bedside Medical Decision Making Lab Data Result diagrams: 11/18/21 15:40 11/18/21 15:40 Labs: Lab Results 11/18/21 11/18/21 11/18/21 Range/Units 15:39 15:40 15:40 WBC 18.9 H (4.8-10.8) X10*3/uL RBC 3.43 L D (4.60-5.80) X10*6/uL Hgb 10.8 L D (14.0-18.0) g/dl Hct 32.3 L D (42.0-52.0) % MCV 94.2 (80.0-98.0) fL MCH 31.5 (27.0-33.0) pg MCHC 33.4 (31.0-36.0) g/dl RDW 16.3 H (11.0-16.0) % Plt Count 210 (160-400) X10*3/uL MPV 11.0 (9.4-12.4) fL Immature Gran % (Auto) 1.9 H (0.0-0.4) % Neut % (Auto) 91.5 H (45-73) % Lymph % (Auto) 3.4 L (20-40) % [place] % (Auto) 2.9 (2-11) % Eos % (Auto) 0.0 (0-4) % Baso % (Auto) 0.3 (0-2) % Lymph # (Auto) 0.6 L (1.2-4.9) X10*3/uL [place] # (Auto) 0.5 (0.1-1.2) X10*3/uL Eos # (Auto) 0.0 (0.0-0.4) X10*3/uL Baso # (Auto) 0.1 (0.0-0.2) X10*3/uL Abs Immat Gran (auto) 0.35 H (0.00-0.03) X10*3/uL Absolute Neuts (auto) 17.3 H (2.0-8.3) x10*3/uL Absolute Nucleated RBC 0.000 (0.0-0.012) X10*3/uL Nucleated RBC % (auto) 0.0 (0.0-0.2) /100WBC Smear Tech's Comments VERIFIED PT (9.9-13.0) SEC INR (0.9-1.1) APTT (24.1-38.0) SEC Sodium 138 (135-145) mmol/L Potassium 4.9 (3.3-5.1) mmol/L Chloride 101 (96-108) mmol/L Carbon Dioxide 26 (22-29) mmol/L Anion Gap 16 (12-20) BUN 64 H D (9-16) mg/dL Creatinine 0.81 (0.5-1.4) mg/dL Estim Creat Clear Calc 98.1 Estimated GFR > 60 Random Glucose 216 H D (60-115) mg/dL Lactic Acid 2.5 H* (0.5-2.0) mmol/L Calcium 8.6 D (8.4-10.2) mg/dL Total Bilirubin 0.3 (0.0-1.0) mg/dL Direct Bilirubin < 0.2 (0.0-0.5) mg/dL AST 23 (5-37) U/L ALT 23 (0-40) U/L Alkaline Phosphatase 44 (39-117) U/L Troponin I High Sens (<3.5-35.0) ng/L Total Protein 5.9 L (6.5-8.0) g/dL Albumin 3.3 L (3.5-5.0) g/dL Lipase 28 (8-78) U/L TSH 1.33 (0.32-4.0) uIU/mL Urine Color Urine Appearance Urine pH (5.0-8.0) Ur Specific [place] (1.005-1.025) Urine Protein (NEG-TRACE) MG/DL Urine Glucose (UA) (NEG) MG/DL Urine Ketones (NEG) MG/DL Urine Blood (NEG) Urine Nitrite (NEG) Ur Leukocyte Esterase (NEG) Stool Occult Blood (NEGATIVE) COVID-19 ([facility]ICE) (Negative) COVID-19 Clin Com Blood Type Antibody Screen Crossmatch 11/18/21 11/18/21 11/18/21 Range/Units 15:41 15:42 16:04 WBC (4.8-10.8) X10*3/uL RBC (4.60-5.80) X10*6/uL Hgb (14.0-18.0) g/dl Hct (42.0-52.0) % MCV (80.0-98.0) fL MCH (27.0-33.0) pg MCHC (31.0-36.0) g/dl RDW (11.0-16.0) % Plt Count (160-400) X10*3/uL MPV (9.4-12.4) fL Immature Gran % (Auto) (0.0-0.4) % Neut % (Auto) (45-73) % Lymph % (Auto) (20-40) % [place] % (Auto) (2-11) % Eos % (Auto) (0-4) % Baso % (Auto) (0-2) % Lymph # (Auto) (1.2-4.9) X10*3/uL [place] # (Auto) (0.1-1.2) X10*3/uL Eos # (Auto) (0.0-0.4) X10*3/uL Baso # (Auto) (0.0-0.2) X10*3/uL Abs Immat Gran (auto) (0.00-0.03) X10*3/uL Absolute Neuts (auto) (2.0-8.3) x10*3/uL Absolute Nucleated RBC (0.0-0.012) X10*3/uL Nucleated RBC % (auto) (0.0-0.2) /100WBC Smear Tech's Comments PT (9.9-13.0) SEC INR (0.9-1.1) APTT (24.1-38.0) SEC Sodium (135-145) mmol/L Potassium (3.3-5.1) mmol/L Chloride (96-108) mmol/L Carbon Dioxide (22-29) mmol/L Anion Gap (12-20) BUN (9-16) mg/dL Creatinine (0.5-1.4) mg/dL Estim Creat Clear Calc Estimated GFR Random Glucose (60-115) mg/dL Lactic Acid (0.5-2.0) mmol/L Calcium (8.4-10.2) mg/dL Total Bilirubin (0.0-1.0) mg/dL Direct Bilirubin (0.0-0.5) mg/dL AST (5-37) U/L ALT (0-40) U/L Alkaline Phosphatase (39-117) U/L Troponin I High Sens 13.9 D (<3.5-35.0) ng/L Total Protein (6.5-8.0) g/dL Albumin (3.5-5.0) g/dL Lipase (8-78) U/L TSH (0.32-4.0) uIU/mL Urine Color STRAW Urine Appearance CLEAR Urine pH 5.5 (5.0-8.0) Ur Specific [place] 1.020 (1.005-1.025) Urine Protein NEG (NEG-TRACE) MG/DL Urine Glucose (UA) 250 H (NEG) MG/DL Urine Ketones 5 (NEG) MG/DL Urine Blood NEG (NEG) Urine Nitrite NEG (NEG) Ur Leukocyte Esterase NEG (NEG) Stool Occult Blood (NEGATIVE) COVID-19 ([facility]ANICE) Negative (Negative) COVID-19 Clin Com See Note Blood Type Antibody Screen Crossmatch 11/18/21 11/18/21 11/18/21 Range/Units 16:08 16:21 16:55 WBC (4.8-10.8) X10*3/uL RBC (4.60-5.80) X10*6/uL Hgb (14.0-18.0) g/dl Hct (42.0-52.0) % MCV (80.0-98.0) fL MCH (27.0-33.0) pg MCHC (31.0-36.0) g/dl RDW (11.0-16.0) % Plt Count (160-400) X10*3/uL MPV (9.4-12.4) fL Immature Gran % (Auto) (0.0-0.4) % Neut % (Auto) (45-73) % Lymph % (Auto) (20-40) % [place] % (Auto) (2-11) % Eos % (Auto) (0-4) % Baso % (Auto) (0-2) % Lymph # (Auto) (1.2-4.9) X10*3/uL [place] # (Auto) (0.1-1.2) X10*3/uL Eos # (Auto) (0.0-0.4) X10*3/uL Baso # (Auto) (0.0-0.2) X10*3/uL Abs Immat Gran (auto) (0.00-0.03) X10*3/uL Absolute Neuts (auto) (2.0-8.3) x10*3/uL Absolute Nucleated RBC (0.0-0.012) X10*3/uL Nucleated RBC % (auto) (0.0-0.2) /100WBC Smear Tech's Comments PT 11.5 (9.9-13.0) SEC INR 1.0 (0.9-1.1) APTT 33.2 D (24.1-38.0) SEC Sodium (135-145) mmol/L Potassium (3.3-5.1) mmol/L Chloride (96-108) mmol/L Carbon Dioxide (22-29) mmol/L Anion Gap (12-20) BUN (9-16) mg/dL Creatinine (0.5-1.4) mg/dL Estim Creat Clear Calc Estimated GFR Random Glucose (60-115) mg/dL Lactic Acid (0.5-2.0) mmol/L Calcium (8.4-10.2) mg/dL Total Bilirubin (0.0-1.0) mg/dL Direct Bilirubin (0.0-0.5) mg/dL AST (5-37) U/L ALT (0-40) U/L Alkaline Phosphatase (39-117) U/L Troponin I High Sens (<3.5-35.0) ng/L Total Protein (6.5-8.0) g/dL Albumin (3.5-5.0) g/dL Lipase (8-78) U/L TSH (0.32-4.0) uIU/mL Urine Color Urine Appearance Urine pH (5.0-8.0) Ur Specific [place] (1.005-1.025) Urine Protein (NEG-TRACE) MG/DL Urine Glucose (UA) (NEG) MG/DL Urine Ketones (NEG) MG/DL Urine Blood (NEG) Urine Nitrite (NEG) Ur Leukocyte Esterase (NEG) Stool Occult Blood POSITIVE (NEGATIVE) COVID-19 ([facility]ANICE) (Negative) COVID-19 Clin Com Blood Type A Positive Antibody Screen NEGATIVE Crossmatch See Detail Critical Care Time Critical Care Time Critical Care Time: Yes Total Critical Care Time: 60 Attestation: I have personally provided critical care time. Time includes review of lab data, radiology results, discussion with consultants, and monitoring for potential decompensation. Intervention performed as documented. Discharge Plan Discharge Clinical Impression: Acute upper GI bleed Patient Disposition: Admitted As Inpatient Prescriptions: No Action ferrous sulfate 325 mg (65 mg iron) tablet 325 mg PO DAILY 90 Days Qty: 90 1RF Corlanor 5 mg tablet 5 mg PO BID 90 Days Qty: 180 1RF Rx Instructions: must administer with a meal/food aspirin 81 mg tablet,delayed release (DR/EC) 81 mg PO DAILY Qty: 90 3RF Hold Instructions: until follow up with hematology furosemide 20 mg tablet 60 mg PO DAILY 90 Days Qty: 270 1RF prednisone 5 mg Tablet 5 mg PO DAILY Qty: 100 4RF Rx Instructions: total dose of 45 mg daily eplerenone [Inspra] 25 mg tablet 25 mg PO DAILY 0RF levothyroxine [Synthroid] 125 mcg tablet 300 mcg PO CRUZ 0RF prednisone 20 mg tablet 40 mg PO DAILY 0RF Rx Instructions: total dose of 45mg daily levothyroxine 150 mcg tablet 150 mcg PO MOTUWETHFRSA 0RF Rx Instructions: 1 pill per day 6 days a week and 2 pills one day a week furosemide 20 mg tablet 40 mg PO DAILY@1800 0RF
[2021-11-18 16:14] LABS: OBS Int Ctl Valid YES; OBS1 POSITIVE (NEGATIVE)
[2021-11-18 16:19] LABS: COVID-19 Test Negative (Negative)
[2021-11-18 16:19] LABS: Appearance Urine CLEAR; Color Urine STRAW; Glucose Urine UA 250 MG/DL (NEG); Leukocyte Esterase Urine NEG (NEG); Nitrite Urine NEG (NEG); PH 5.5 (5.0-8.0); Urine Blood NEG (NEG); Urine Ketones 5 MG/DL (NEG); Urine Protein NEG (NEG-TRACE)
[2021-11-18 16:20] LABS: Troponin-I High Sensitivity 13.9 ng/L (<3.5-35.0)
[2021-11-18 16:20] LABS: Alanine Aminotransferase 23 U/L (0-40); Albumin Level 3.3 g/dL (3.5-5.0); Alkaline Phosphatase 44 U/L (39-117); Anion Gap 16 (12-20); Aspartate Amino Transferase 23 U/L (5-37); Bilirubin Direct < 0.2 mg/dL (0.0-0.5); Bilirubin Total 0.3 mg/dL (0.0-1.0); Blood Urea Nitrogen 64 mg/dL (9-16); Calcium 8.6 mg/dL (8.4-10.2); Carbon Dioxide 26 mmol/L (22-29); Chloride 101 mmol/L (96-108); Creatinine Clr Calc Pharmacy 98.1; Estimated Glomerular Filt Rate > 60; Glucose Random 216 mg/dL (60-115); Lipase 28 U/L (8-78); Potassium 4.9 mmol/L (3.3-5.1); Sodium 138 mmol/L (135-145); Total Protein 5.9 g/dL (6.5-8.0)
[2021-11-18 16:22] LABS: Lactic Acid 2.5 mmol/L (0.5-2.0)
[2021-11-18 16:32] LABS: SLIDE REVIEW VERIFIED
[2021-11-18 16:32] LABS: Prothrombin Time 11.5 SEC (9.9-13.0)
[2021-11-18 16:35] LABS: Partial Thromboplastin Time 33.2 SEC (24.1-38.0)
[2021-11-18] MEDS: Pantoprazole Sodium 40 MG/10 ML VIAL IVPUSH ×2 (16:42→21:36)
[2021-11-18] MEDS: 0.9 % Sodium Chloride 1,000 ML 200 ML IVCONT (16:42)
[2021-11-18] MEDS: Prochlorperazine Edisylate 10 MG/2 ML VIAL IVPUSH (16:43)
--- NOTE | 2021-11-18 16:53 | PHA.MEDREC ---
Pharmacy Consult ? Medication Reconciliation Pharmacy has completed the medication reconciliation.
[2021-11-18 17:03] LABS: TSH reflex Free T4 1.33 uIU/mL (0.32-4.0)
--- NOTE | 2021-11-18 17:19 | PC.NURSE ---
patient a&ox3, court monitor intact paced 100s, ivs inserted, labs drawn, ekg obtained, rectal exam performed by provider, pt medicated per order nausea has decreased,ivf running per order, dr rojas now at bedside, will continue to monitor.
--- NOTE | 2021-11-18 17:20 | PC.NURSE ---
per provider request patients fluids have been increased in rate to wide open, 999 ml/hr
--- NOTE | 2021-11-18 17:35 | PC.NURSE ---
Dr Leal was at bedside seeing the patient, he is planning on the endoscopy this evening, pt is NPO, blood bank contacted as Dr. Leal wants the blood running prior to the patient going to the OR- blood bank states they need approx 10-15 minutes before it would be ready.
--- NOTE | 2021-11-18 17:56 | PM.CCN ---
Critical Care Event Note Summary Date of Service: 11/18/21 Code activated: No
--- NOTE | 2021-11-18 17:56 | PM.EVENT ---
Event Note Date of Service: 11/18/21 Event Note: GI consult dictated UGIB with asa and prednisone use. EGD to r/o ulcer, diagnose and treat bleeding. discussed risks and benefits with pt and who agree to proceed.
--- NOTE | 2021-11-18 17:58 | MHC.SHP ---
Pre-Procedural Eval Section A Date of Service: 11/18/21 The patient is an INPATIENT: Yes Changes since office visit: No Cold of Flu in the past 2 weeks, No New Medical Problems, No Changes in Medication and No Patient answered all questions The History & Physical has been completed within 30 days and I have reviewed it.: Yes Section B Chief Complaint: vomiting,dizziness Allergies: Allergies Allergy/AdvReac Type Severity Reaction Status Date / Time No Known Allergies Allergy Verified 11/11/21 13:13 [No Known Allergies*] Plan I have reviewed the history and physical and performed a pertinent physical examination on my patient. No changes have occurred unless specified.
--- NOTE | 2021-11-18 18:08 | PC.NURSE ---
phone number Lisette- [phone]
[2021-11-18 18:10] LABS: Reflex Lactate? Lactic Acid Added
--- NOTE | 2021-11-18 18:16 | PC.NURSE ---
patient a&ox3, has gone home, per OR staff patient is to complete 1 unit of blood prior to patient going for endo with Dr. Leal, this nurse was instructed to give the patient the blood over the normal time and not rapid infusion due to patients CHF, patient is tolerating transfusion well, fitter placer is paced 100, pt bp is currently 108/67, he has no c/o pain or discomfort at this time and medication has currently relieved his nausea, call leal within reach, will continue to monitor.
--- NOTE | 2021-11-18 18:20 | W.PM.CCCN ---
History of Present Illness Data of Consult Service Date: 11/18/21 Requesting physician: London Leal Primary Care Provider: Unknown Physician HPI Reason for consult: UGI Bleed I was called to see Mr. Monahan in the ED [facility] of UGI bleeding. 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 He has a PMHx of Hodgkin's lymphoma in remission, [place]'s syndrome, ITP.? Followed by Dr. Merchant and treated with rituximab, last dose on October 29.? Also past medical history of aortic stenosis, status post TAVR about a year ago; status post cardiac resynchronization therapy defibrillator (SUPERVISOR COOK ROOM-D) placed about 8 years ago for CHF, the latter of which was consequent to his treatment for Hodgkin's lymphoma.? Known LBBB (left bundle branch block).? Also chronic leukocytosis since September of this year.? The patient takes aspirin and prednisone. Patient lives at home with his .? During the course of his daily work, he tells me that he walks 5 miles a day with only occasional shortness of breath. The patient called Dr. Merchant this morning because of severe weakness with dizziness and black diarrhea.? As he was getting out of his car in the parking lot of the hospital, he started vomiting blood.? He was brought into the emergency room, where he vomited blood a second time.? He denied abdominal pain. In the ED, the patient was fully awake and appropriate, in no acute distress, calm and cooperative.? Heart rate was 93, blood pressure 128/76, respiratory rate 20, sat 100% on room air.? Temperature was 97.6 degrees.? General physical exam was unremarkable except for black tarry stool on rectal exam. Labs in the ED were notable for white count of 18.9 and hemoglobin of 10.8 (yesterday had routine labs in Dr. Merchant saw office showing a white count of 17, and hemoglobin of 14.4) platelet count is 210.? Coags are normal.? Chemistries are notable for BUN and creatinine of 64/0.8 (were 26/0.8 yesterday).? Bicarb is 26.? Lactic acid is 2.5.? Albumin is 3.3 (was 3.9 yesterday). In the ED, the patient's blood pressure dropped into the 80s.? He was volume resuscitated with 1 L of normal saline while blood was ordered from the blood bank. ?The patient was volume resuscitated with 1 L of normal saline. I saw the patient in the ED at 1745.? He is fully awake with normal MS.? Breathing easy.? Gave me a good history.? Blood is being hung. Plan is for the patient to go to the OR for EGD.? Most likely ulcer disease precipitated by aspirin and steroids.? In addition to a unit of RBCs, I rec 80 mg protonix now. Discussed with Dr. Leal.? Then I d/w Dr. Michelle in the ED and the anesthesiologist and the OR and PACU nurses.? I don?t think there should be any trouble extubating the patient at the end of surgery.? He will go to PACU, and then come to the ICU for overnight monitoring. Time:? 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 Complete heart block Congestive heart failure COVID-19 vaccine series completed [place] syndrome HFrEF (heart failure with reduced ejection fraction) Hodgkins lymphoma Hypocalcemia Hypotension (arterial) Hypothyroidism LBBB (left bundle branch block) Leukocytosis Low TSH level Multinodular thyroid Multinodular thyroid NICM (nonischemic cardiomyopathy) Osteoporosis Pacemaker Pulmonary embolism Recurrent pleural effusion on right Rib fracture Rib pain Right hip pain Shortness of breath Sinus tachycardia Vitamin D deficiency Family History Family History Father Healthy adult male Mother Bladder cancer Surgical History Surgical History H/O splenectomy History of appendectomy History of cardiac pacemaker History of esophagogastroduodenoscopy (EGD) History of hip surgery Hx of colonoscopy S/P TAVR (transcatheter aortic valve replacement) Social History Social History Household Members: Spouse and Children Housing: House Are you a primary career education teacher to a significant other at home: No Do you presently have visiting nurse or other home services: No Alcohol intake: current Alcohol intake frequency: holidays/special occasions only Patient Tobacco Use Status: Never used Tobacco e-Cigarette/Vaping Use: Never Used Second Hand Smoke Exposure: No Use of substances other than those prescribed or required for medical reasons: No Advance Directives: No Advance Directives Information Provided: No Advance Directives Date on File: 01/25/21 service: Yes Current occupational status: employed Current occupational exposures/hazards: No Meds Allergies Allergy/AdvReac Type Severity Reaction Status Date / Time No Known Allergies Allergy Verified 11/11/21 13:13 [No Known Allergies*] Active Medications: Current Medications Sodium Chloride (Ns) 1,000 mls @ 200 mls/hr IVCONT .Q5H ONE Stop: 11/18/21 21:07 Last Infusion: 11/18/21 18:18 Dose: Infused Documented by: Pharmacy Consult (Consult Rx Perform Med Rec) 1 each MISCELLANE ONCE PRN PRN Reason: Consult order Home Medications Medication Instructions Recorded Confirmed Last Taken Type eplerenone 25 mg tablet (Inspra) 25 mg PO DAILY 11/05/21 11/18/21 11/17/21 History furosemide 20 mg tablet 40 mg PO DAILY@1800 11/18/21 11/18/21 11/17/21 History levothyroxine 125 mcg tablet 300 mcg PO CRUZ 11/18/21 11/18/21 11/17/21 History (Synthroid) levothyroxine 150 mcg tablet 150 mcg PO MOTUWETHFRSA 11/18/21 11/18/21 11/17/21 History prednisone 20 mg tablet 40 mg PO DAILY 11/18/21 11/18/21 11/17/21 History Physical Exam Vital Signs: Vital Signs: Last Vital Signs Temp 97.8 F 11/18/21 18:15 Pulse 101 H 11/18/21 18:15 Resp 18 11/18/21 18:15 BP 108/67 11/18/21 18:15 Pulse Ox 99 11/18/21 18:10 BMI result Body Mass Index 23.6 Results Labs CBC & Chem 7: 11/18/21 15:40 11/18/21 15:40 Labs: Short CBC 11/18/21 Range/Units 15:40 WBC 18.9 H (4.8-10.8) X10*3/uL Hgb 10.8 L D (14.0-18.0) g/dl Hct 32.3 L D (42.0-52.0) % Plt Count 210 (160-400) X10*3/uL BMP 11/18/21 15:40 Sodium 138 Potassium 4.9 Chloride 101 Carbon Dioxide 26 BUN 64 H D Creatinine 0.81 Calcium 8.6 D Liver Function 11/18/21 Range/Units 15:40 Total Bilirubin 0.3 (0.0-1.0) mg/dL Direct Bilirubin < 0.2 (0.0-0.5) mg/dL AST 23 (5-37) U/L ALT 23 (0-40) U/L Alkaline Phosphatase 44 (39-117) U/L Albumin 3.3 L (3.5-5.0) g/dL Urine 11/18/21 Range/Units 16:04 Urine Color STRAW Urine Appearance CLEAR Urine pH 5.5 (5.0-8.0) Ur Specific [place] 1.020 (1.005-1.025) Urine Protein NEG (NEG-TRACE) MG/DL Urine Glucose (UA) 250 H (NEG) MG/DL
--- NOTE | 2021-11-18 18:46 | HO.ANESPROP2 ---
[facility] Active Problems Active Problems: All Active Problems (Updated 11/18/21 @ 17:50 by Anna Michelle MD) Acute upper GI bleed (Acute) Acute ITP (Acute) COVID-19 (Acute) Thrombocytopenia (Acute) Rash (Acute) Multinodular thyroid (Acute) Rib fracture (Acute) Right hip pain (Acute) Rib pain (Acute) Multinodular thyroid (Acute) Hyperkalemia (Acute) Fecal occult blood test positive (Acute) Bilateral pulmonary embolism (Acute) Encounter for interrogation of cardiac defibrillator (Acute) Closed femur fracture (Acute) 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(Acute) NICM (nonischemic cardiomyopathy) (Acute) Vitamin D deficiency (Acute) Osteoporosis (Acute) Low TSH level (Acute) Anemia (Acute) Congestive heart failure (Acute) Hypothyroidism (Acute) Hypocalcemia (Acute) Past Medical History Medical History Anemia Aortic stenosis, severe Cardiac resynchronization therapy defibrillator (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) in place Complete heart block Congestive heart failure COVID-19 vaccine series completed [place] syndrome HFrEF (heart failure with reduced ejection fraction) Hodgkins lymphoma Hypocalcemia Hypotension (arterial) Hypothyroidism LBBB (left bundle branch block) Leukocytosis Low TSH level Multinodular thyroid Multinodular thyroid NICM (nonischemic cardiomyopathy) Osteoporosis Pacemaker Pulmonary embolism Recurrent pleural effusion on right Rib fracture Rib pain Right hip pain Shortness of breath Sinus tachycardia Vitamin D deficiency Functional capacity: independent ambulation Family History Family History Father Healthy adult male Mother Bladder cancer Family history of problems with anesthesia: No Surgical History Surgical History H/O splenectomy History of appendectomy History of cardiac pacemaker History of esophagogastroduodenoscopy (EGD) History of hip surgery Hx of colonoscopy S/P TAVR (transcatheter aortic valve replacement) History of Problems with Anesthesia: No Social History Social History Household Members: Spouse and Children Housing: House Are you a primary foster care social worker to a significant other at home: No Do you presently have visiting nurse or other home services: No Alcohol intake: current Alcohol intake frequency: holidays/special occasions only Patient Tobacco Use Status: Never used Tobacco e-Cigarette/Vaping Use: Never Used Second Hand Smoke Exposure: No Use of substances other than those prescribed or required for medical reasons: No Advance Directives: No Advance Directives Information Provided: No Advance Directives Date on File: 01/25/21 service: Yes Current occupational status: employed Current occupational exposures/hazards: No Meds Allergies Allergy/AdvReac Type Severity Reaction Status Date / Time No Known Allergies Allergy Verified 11/11/21 13:13 [No Known Allergies*] Active Medications: Current Medications Sodium Chloride (Ns) 1,000 mls @ 200 mls/hr IVCONT .Q5H ONE Stop: 11/18/21 21:07 Last Infusion: 11/18/21 18:18 Dose: Infused Documented by: Pharmacy Consult (Consult Rx Perform Med Rec) 1 each MISCELLANE ONCE PRN PRN Reason: Consult order Home Medications Medication Instructions Recorded Confirmed Last Taken Type eplerenone 25 mg tablet (Inspra) 25 mg PO DAILY 11/05/21 11/18/21 11/17/21 History furosemide 20 mg tablet 40 mg PO DAILY@1800 11/18/21 11/18/21 11/17/21 History levothyroxine 125 mcg tablet 300 mcg PO CRUZ 11/18/21 11/18/21 11/17/21 History (Synthroid) levothyroxine 150 mcg tablet 150 mcg PO MOTUWETHFRSA 11/18/21 11/18/21 11/17/21 History prednisone 20 mg tablet 40 mg PO DAILY 11/18/21 11/18/21 11/17/21 History Exam Exam Date and Time: November 18, 20216 Height,Weight and Vital Signs: Height 5 ft 9 in Weight 72.575 kg Last Vital Signs Temp 97.8 F 11/18/21 18:15 Pulse 101 H 11/18/21 18:15 Resp 18 11/18/21 18:15 BP 108/67 11/18/21 18:15 Pulse Ox 99 11/18/21 18:10 Pertinent Lab Results Pertinent Lab Results: Laboratory Tests 11/18/21 11/18/21 11/18/21 15:39 15:40 15:40 WBC 18.9 H RBC 3.43 L D Hgb 10.8 L D Hct 32.3 L D MCV 94.2 MCH 31.5 MCHC 33.4 RDW 16.3 H Plt Count 210 MPV 11.0 Immature Gran % (Auto) 1.9 H Neut % (Auto) 91.5 H Lymph % (Auto) 3.4 L [place] % (Auto) 2.9 Eos % (Auto) 0.0 Baso % (Auto) 0.3 Lymph # (Auto) 0.6 L [place] # (Auto) 0.5 Eos # (Auto) 0.0 Baso # (Auto) 0.1 Abs Immat Gran (auto) 0.35 H Absolute Neuts (auto) 17.3 H Absolute Nucleated RBC 0.000 Nucleated RBC % (auto) 0.0 Smear Tech's Comments VERIFIED PT INR APTT Sodium 138 Potassium 4.9 Chloride 101 Carbon Dioxide 26 Anion Gap 16 BUN 64 H D Creatinine 0.81 Estim Creat Clear Calc 98.1 Estimated GFR > 60 Random Glucose 216 H D Lactic Acid 2.5 H* Calcium 8.6 D Total Bilirubin 0.3 Direct Bilirubin < 0.2 AST 23 ALT 23 Alkaline Phosphatase 44 Troponin I High Sens Total Protein 5.9 L Albumin 3.3 L Lipase 28 TSH 1.33 Urine Color Urine Appearance Urine pH Ur Specific [place] Urine Protein Urine Glucose (UA) Urine Ketones Urine Blood Urine Nitrite Ur Leukocyte Esterase Stool Occult Blood COVID-19 (SHANICE) COVID-19 Clin Com Blood Type Antibody Screen Crossmatch 11/18/21 11/18/21 11/18/21 15:41 15:42 16:04 WBC RBC Hgb Hct MCV MCH MCHC RDW Plt Count MPV Immature Gran % (Auto) Neut % (Auto) Lymph % (Auto) [place] % (Auto) Eos % (Auto) Baso % (Auto) Lymph # (Auto) [place] # (Auto) Eos # (Auto) Baso # (Auto) Abs Immat Gran (auto) Absolute Neuts (auto) Absolute Nucleated RBC Nucleated RBC % (auto) Smear Tech's Comments PT INR APTT Sodium Potassium Chloride Carbon Dioxide Anion Gap BUN Creatinine Estim Creat Clear Calc Estimated GFR Random Glucose Lactic Acid Calcium Total Bilirubin Direct Bilirubin AST ALT Alkaline Phosphatase Troponin I High Sens 13.9 D Total Protein Albumin Lipase TSH Urine Color STRAW Urine Appearance CLEAR Urine pH 5.5 Ur Specific [place] 1.020 Urine Protein NEG Urine Glucose (UA) 250 H Urine Ketones 5 Urine Blood NEG Urine Nitrite NEG Ur Leukocyte Esterase NEG Stool Occult Blood COVID-19 (SHANICE) Negative COVID-19 Clin Com See Note Blood Type Antibody Screen Crossmatch 11/18/21 11/18/21 11/18/21 16:08 16:21 16:55 WBC RBC Hgb Hct MCV MCH MCHC RDW Plt Count MPV Immature Gran % (Auto) Neut % (Auto) Lymph % (Auto) [place] % (Auto) Eos % (Auto) Baso % (Auto) Lymph # (Auto) [place] # (Auto) Eos # (Auto) Baso # (Auto) Abs Immat Gran (auto) Absolute Neuts (auto) Absolute Nucleated RBC Nucleated RBC % (auto) Smear Tech's Comments PT 11.5 INR 1.0 APTT 33.2 D Sodium Potassium Chloride Carbon Dioxide Anion Gap BUN Creatinine Estim Creat Clear Calc Estimated GFR Random Glucose Lactic Acid Calcium Total Bilirubin Direct Bilirubin AST ALT Alkaline Phosphatase Troponin I High Sens Total Protein Albumin Lipase TSH Urine Color Urine Appearance Urine pH Ur Specific [place] Urine Protein Urine Glucose (UA) Urine Ketones Urine Blood Urine Nitrite Ur Leukocyte Esterase Stool Occult Blood POSITIVE COVID-19 (SHANICE) COVID-19 Clin Com Blood Type A Positive Antibody Screen NEGATIVE Crossmatch See Detail Airway Mallampati Class: III TM Dist: >3cm Neck ROM: Full Loose/Missing/Broken Teeth: Yes, Upper and Lower Heart: paced Lungs: cTA Assessment and Plan Final Anesthetic Review Family History of Problems with Anesthesia: No History of Problems with Anesthesia: No ASA Class: IV and Emergency Final Preanesthetic Review: Meds/Allgs Chart Reviewed, Consent Obtained/Reviewed and Anes Risks/Benef Reviewed Patient Risk: High Procedure Risk: Low Anesthetic Plan Anesthetic Plan: GA Disposition: Standard PACU
--- NOTE | 2021-11-18 19:04 | PC.NURSE ---
1850 MESSAGE SENT TO BATTERY CHECKER, STEPHANIE MARTINI, INQUIRING WHETHER PATIENT MEETS SEPSIS PROTOCOL RELATED TO ELEVATED INITIAL LACTIC ACID 2.5. ? WHETHER REPEAT LACTIC ACID NEEDS TO BE ORDERED 1899 ED RN CHERRY, REPORTS THAT PATIENT LACTIC ACID IS REDRAWN AT THIS TIME.
--- NOTE | 2021-11-18 19:11 | PC.NURSE ---
pt taken by OR staff to the OR for an endoscopy.
[2021-11-18 19:49] LABS: ~Lactic Acid-LAB USE ONLY 3.2 mmol/L (0.5-2.0)
--- NOTE | 2021-11-18 20:06 | PM.EVENT ---
Event Note Date of Service: 11/18/21 Event Note: EGD dictated old and clotted blood in stomach, no source for bleeding identified. no source for bleeding seen in esophagus or duodenum rec: empiric ppi monitor in icu follow hct repeat EGD in next 24 hours pending clinical course.
--- NOTE | 2021-11-18 20:08 | PC.NURSE ---
call from Esther Santoyo, notified of elevated lactic acid with repeat 3.2. wbc elevated, tachycardia, and hypotension in ed. Patient being followed by icu lacquer polisher, guilherme van, evaluated patient in the ED. Discussed in OR for upper endoscopy related to upper GIB. Patient on prednisone home medication and at this time No apparent source of infection at this time.
[2021-11-18 21:09] LABS: Reflex Lactate? 2 Y
--- NOTE | 2021-11-18 21:13 | PM.CCHP ---
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 Merchant, history of aortic stenosis post TAVR about a year ago,, multinodular thyroid, hypothyroidism, PE, CHF, nonischemic cardiomyopathy, status post cardiac resynchronization therapy and defibrillator GUARD DRIVER D placed about 8 years ago osteoporosis, hypocalcemia among others. Patient had reported having severe weakness, dizziness and black diarrhea which was reported to Dr. Merchant, patient had been coming out of his car in the parking lot of the hospital and started vomiting blood, he was brought into the emergency room where he vomited a 2nd time.? At the time he denied any abdominal discomfort.? Initially he was hemodynamically is stable but did have black tarry stool on rectal exam. His workup in the emergency room his workup revealed white count of 18.9 which is about baseline for him, H&H of 10.8 and 32.3 respectively with a prior baseline 1 day ago 14.4 and 43.9, platelet count of 210, chemistries significant force potassium 5.2, BUN 59, creatinine 0.68, lactic acid 2.5.? Patient was given 1 L of crystalloids, Dr. Leal was consulted and the patient went to the endoscopy suite, he received 1 unit packed red blood cells, I was reported by the sales performance analyst specialist that he did not find any active bleeding, he did do a lap pad where he removed all the clotted blood and mold liquidy blood but no clear evidence of ulcers, no viruses or AVM or any other clear source of active bleeding. ?Patient has remained borderline hypotensive and slightly tachycardic with a systolic blood pressure just over 90 and heart rate between 105 and 115.? No complications the procedure was reported. ?COVID negative. During my initial interview, the patient is able to respond to questions although he is somewhat drowsy, denies any chest pain, shortness a breath, abdominal pain, he does admit to having some nausea but no other symptom. ROS:? As above reports prior GI bleeds, vomiting blood, beats being on steroids on aspirin, denies any family history of blood dyscrasias, he does not drink alcohol, has no liver disease, denies having heart attack, no recent cough or sputum production, all other review systems were reviewed and negative. Past Medical History:? As above Chronic leukocytosis NOS Pacemaker Left bundle branch block Osteoporosis Rib fractures Vitamin-D deficiency Past Surgical History:? EGD Appendectomy Colonoscopy Hip surgery and o's Family history:? Noncontributory Social History:? Patient lives at home, denies any alcohol consumption, no drugs or tobacco. CODE STATUS: FULL CODE Allergies: NKDA Home Medications: See Med Rec PHYSICAL EXAM: VS: ?Blood pressure 126/64, heart rate 102, respirations 16, O2 sat 99% on room air, temperature 98.5 degrees General:? Alert oriented x3 no acute distress.? Speaking full sentences.? Speech is well articulated, thought process is coherent.? Following all commands. Skin:? Intact, no lesions, edema, erythema, clubbing or cyanosis.? No ulcers. HEENT:? Head is normocephalic, atraumatic, pupils equal round reactive to light accommodation bilaterally.? Extraocular movements appear intact.? Buccal mucosa is moist, Neck is supple without lymphadenopathy. Cardiac:? Clear S1-S2, no murmurs rubs or gallops.? Pacer like device under the skin on the left upper chest Pulmonary:? Clear to auscultation, no wheezes, rales or rhonchi. Abdomen:? Protuberant, positive bowel sounds in all 4 quadrants.? Soft, nontender, no rebound or guarding.? Rectal exam was not repeated Musculoskeletal:? Moving all 4 extremities upon request a major joints, there is no crepitus or tenderness.? The strength is 5/5 bilaterally and throughout all 4 extremities.? There is no leg edema , no calf tenderness , no leg asymmetry.? Gait not assessed at this point. Neurologic:? As above, cranial nerves 2-12 are grossly intact.? No focal deficits noted. Motor strength as above.? Vascular:? 2+ pulses upper and lower extremities distally. SIGNIFICANT LABORATORY DATA:? As above REVIEW OF IMAGES: ?None EKG REVIEW: ?EKG reviewed by me shows ventricular paced rate of 93 beats per minute no discrete ST elevations or depressions.? Evidence of right bundle-branch block is noted.? Patient determine changes in the anterior lateral areas. ASSESSMENT AND PLAN: 1. Upper GI bleed of unknown source 2. Anemia of acute blood loss 3. Status post endoscopy 4. Acute kidney injury due to volume depletion and hypoperfusion 5. History of ITP 6. Hypotension reactive tachycardia likely due to volume depletion no evidence of sepsis or any suspicion for acute infection 7. Reactive lactic acidosis due to 1. 8. Chronic leukocytosis 9. Borderline hyperkalemia due to acute kidney injury 10. Hypoalbuminemia Patient will be observed in the ICU, will monitor his H&H and if necessary administer more blood, at this point will give him some albumin and recheck lactic acid, if necessary give him IV fluids although 1 has to be mindful the patient has underlying history of CHF and I do not suspect any sepsis.? Will start him on IV Protonix, I do not think he needs any antibiotics at this point he does not have any history of underlying liver cirrhosis.No Aspirin or Nsaids. Obviously will not continue steroids but will give him a stress dose of it specially given the hypotension, in case of adrenal crisis related issues. According to GI specialist depending on the patient's clinical picture he may undergo a repeat endoscopy tomorrow. He may have sips of water. GI PROPHYLAXIS:? On IV ppi DVT PROPHYLAXIS:? Pneumatic stockings while in bed Critical care time used for critical evaluation of this patient, diagnosis, treatment and coordination of care, review her records and documentation TOTAL CRITICAL CARE TIME 90 MIN . Patient's care was discussed in detail with Dr. Juan.? He is aware of all the above as well as the plan of care for this patient. [facility] Past Medical History Medical History (Updated 11/20/21 @ 09:20 by Jerardo Marshall MD) Anemia Aortic stenosis, severe Bilateral pulmonary embolism Cardiac resynchronization therapy defibrillator (GUARD DRIVER-D) in place Complete heart block Congestive heart failure COVID-19 COVID-19 vaccine series completed 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HFrEF (heart failure with reduced ejection fraction) Hodgkins lymphoma Hypocalcemia Hypotension (arterial) Hypothyroidism LBBB (left bundle branch block) Leukocytosis Low TSH level Multinodular thyroid Multinodular thyroid NICM (nonischemic cardiomyopathy) Osteoporosis Pacemaker Pulmonary embolism Recurrent pleural effusion on right Rib fracture Rib pain Right hip pain Shortness of breath Sinus tachycardia Thrombocytopenia Vitamin D deficiency Functional capacity: independent ambulation Family History Family History Father Healthy adult male Mother Bladder cancer Surgical History Surgical History H/O splenectomy History of appendectomy History of cardiac pacemaker History of esophagogastroduodenoscopy (EGD) History of hip surgery Hx of colonoscopy S/P TAVR (transcatheter aortic valve replacement) Social History Social History Household Members: Spouse and Children Housing: House Are you a primary primary care md to a significant other at home: No Do you presently have visiting nurse or other home services: No Alcohol intake: current Alcohol intake frequency: holidays/special occasions only Patient Tobacco Use Status: Never used Tobacco e-Cigarette/Vaping Use: Never Used Second Hand Smoke Exposure: No Use of substances other than those prescribed or required for medical reasons: No Currently Displaying Signs/Symptoms of Drug Intoxication Withdrawal: No Have you been hit, kicked, punched, or otherwise hurt by someone within the past year? If so, by whom?: No Do you feel safe in your current relationship?: Yes Is there a partner from a previous relationship who is making you feel unsafe now?: No Are you made to feel afraid or neglected: No Advance Directives: No Advance Directives Information Provided: No Advance Directives on File: No Advance Directives Date on File: 01/25/21 Do you have thoughts of harming others: None Do you have a plan to hurt others: No Plan Recently lost weight without trying: No Nutrition Risks: No Nutritional Risk Poor oral hygiene: No service: Yes Current occupational status: employed Current occupational exposures/hazards: No Meds Allergies Allergy/AdvReac Type Severity Reaction Status Date / Time No Known Allergies Allergy Verified 11/11/21 13:13 [No Known Allergies*] Active Medications: Current Medications Dextrose (Dextrose 50 % 25 Gm/50 Ml Syringe) 25 gm IVPUSH Q15M PRN; Protocol PRN Reason: per Hypoglycemia Standing Ord. Glucose (Glucose Gel 15 Gm Gel..Gram.) 15 gm PO Q15M PRN; Protocol PRN Reason: per Hypoglycemia Standing Ord. Pantoprazole Sodium 80 mg/ (Sodium Chloride) 100 mls @ 10 mls/hr IV .Q10H JERRELL Albumin Human (Kedbumin 25 %) 100 mls @ 100 mls/hr IV Q1H JERRELL Stop: 11/18/21 23:14 Insulin Human Lispro (Insulin Lispro 100 Unit/Ml 3 Ml Vial) 0 unit SUBCUT Q6H JERRELL; Protocol Pharmacy Consult (Consult Rx Perform Med Rec) 1 each MISCELLANE ONCE PRN PRN Reason: Consult order Home Medications Medication Instructions Recorded Confirmed Last Taken Type eplerenone 25 mg tablet (Inspra) 25 mg PO DAILY 11/05/21 11/18/21 11/17/21 History furosemide 20 mg tablet 40 mg PO DAILY@1800 11/18/21 11/18/21 11/17/21 History levothyroxine 125 mcg tablet 300 mcg PO CRUZ 11/18/21 11/18/21 11/17/21 History (Synthroid) levothyroxine 150 mcg tablet 150 mcg PO MOTUWETHFRSA 11/18/21 11/18/21 11/17/21 History prednisone 20 mg tablet 40 mg PO DAILY 11/18/21 11/18/21 11/17/21 History Physical Exam Vital Signs: Vital Signs: Last Vital Signs Temp 98.3 F 11/18/21 20:45 Pulse 104 H 11/18/21 20:45 Resp 16 11/18/21 20:45 BP 116/62 11/18/21 20:45 Pulse Ox 99 11/18/21 20:45 BMI result Body Mass Index 23.6 Results Labs CBC and Chem 7: 11/20/21 05:05 11/20/21 05:05 Labs: Laboratory Results - last 24 hr 11/18/21 11/18/21 11/18/21 15:39 15:40 15:40 MCV 94.2 MCH 31.5 MCHC 33.4 RDW 16.3 H Plt Count 210 MPV 11.0 Immature Gran % (Auto) 1.9 H Neut % (Auto) 91.5 H Lymph % (Auto) 3.4 L [place] % (Auto) 2.9 Eos % (Auto) 0.0 Baso % (Auto) 0.3 Lymph # (Auto) 0.6 L [place] # (Auto) 0.5 Eos # (Auto) 0.0 Baso # (Auto) 0.1 Abs Immat Gran (auto) 0.35 H Absolute Neuts (auto) 17.3 H Absolute Nucleated RBC 0.000 Nucleated RBC % (auto) 0.0 Smear Tech's Comments VERIFIED PT INR APTT Anion Gap 16 Estim Creat Clear Calc 98.1 Estimated GFR > 60 Random Glucose 216 H D Lactic Acid 2.5 H* Lactic Acid F/U @ 2Hr Calcium 8.6 D Total Bilirubin 0.3 Direct Bilirubin < 0.2 AST 23 ALT 23 Alkaline Phosphatase 44 Troponin I High Sens Total Protein 5.9 L Albumin 3.3 L Lipase 28 TSH 1.33 Urine Color Urine Appearance Urine pH Ur Specific [place] Urine Protein Urine Glucose (UA) Urine Ketones Urine Blood Urine Nitrite Ur Leukocyte Esterase Stool Occult Blood COVID-19 (SHANICE) [facility] Blood Type Antibody Screen Crossmatch 11/18/21 11/18/21 11/18/21 15:41 15:42 16:04 MCV MCH MCHC RDW Plt Count MPV Immature Gran % (Auto) Neut % (Auto) Lymph % (Auto) [place] % (Auto) Eos % (Auto) Baso % (Auto) Lymph # (Auto) [place] # (Auto) Eos # (Auto) Baso # (Auto) Abs Immat Gran (auto) Absolute Neuts (auto) Absolute Nucleated RBC Nucleated RBC % (auto) Smear Tech's Comments PT INR APTT Anion Gap Estim Creat Clear Calc Estimated GFR Random Glucose Lactic Acid Lactic Acid F/U @ 2Hr Calcium Total Bilirubin Direct Bilirubin AST ALT Alkaline Phosphatase Troponin I High Sens 13.9 D Total Protein Albumin Lipase TSH Urine Color STRAW Urine Appearance CLEAR Urine pH 5.5 Ur Specific [place] 1.020 Urine Protein NEG Urine Glucose (UA) 250 H Urine Ketones 5 Urine Blood NEG Urine Nitrite NEG Ur Leukocyte Esterase NEG Stool Occult Blood COVID-19 (SHANICE) Negative COVID-[facility] See Note Blood Type Antibody Screen Crossmatch 11/18/21 11/18/21 11/18/21 16:08 16:21 16:55 MCV MCH MCHC RDW Plt Count MPV Immature Gran % (Auto) Neut % (Auto) Lymph % (Auto) [place] % (Auto) Eos % (Auto) Baso % (Auto) Lymph # (Auto) [place] # (Auto) Eos # (Auto) Baso # (Auto) Abs Immat Gran (auto) Absolute Neuts (auto) Absolute Nucleated RBC Nucleated RBC % (auto) Smear Tech's Comments PT 11.5 INR 1.0 APTT 33.2 D Anion Gap Estim Creat Clear Calc Estimated GFR Random Glucose Lactic Acid Lactic Acid F/U @ 2Hr Calcium Total Bilirubin Direct Bilirubin AST ALT Alkaline Phosphatase Troponin I High Sens Total Protein Albumin Lipase TSH Urine Color Urine Appearance Urine pH Ur Specific [place] Urine Protein Urine Glucose (UA) Urine Ketones Urine Blood Urine Nitrite Ur Leukocyte Esterase Stool Occult Blood POSITIVE COVID-19 (SHANICE) COVID-19 Clin Com Blood Type A Positive Antibody Screen NEGATIVE Crossmatch See Detail 11/18/21 19:05 MCV MCH MCHC RDW Plt Count MPV Immature Gran % (Auto) Neut % (Auto) Lymph % (Auto) [place] % (Auto) Eos % (Auto) Baso % (Auto) Lymph # (Auto) [place] # (Auto) Eos # (Auto) Baso # (Auto) Abs Immat Gran (auto) Absolute Neuts (auto) Absolute Nucleated RBC Nucleated RBC % (auto) Smear Tech's Comments PT INR APTT Anion Gap Estim Creat Clear Calc Estimated GFR Random Glucose Lactic Acid Lactic Acid F/U @ 2Hr 3.2 H* Calcium Total Bilirubin Direct Bilirubin AST ALT Alkaline Phosphatase Troponin I High Sens Total Protein Albumin Lipase TSH Urine Color Urine Appearance Urine pH Ur Specific [place] Urine Protein Urine Glucose (UA) Urine Ketones Urine Blood Urine Nitrite Ur Leukocyte Esterase Stool Occult Blood COVID-19 (SHANICE) COVID-19 Clin Com Blood Type Antibody Screen Crossmatch
[2021-11-18] MEDS: ondansetron HCL 4 MG/2 ML VIAL IVPUSH (21:19)
[2021-11-18] MEDS: Albumin Human 25 % 100 ML IV ×2 (21:19→22:44)
[2021-11-18 21:30] LABS: Glucose, Whole Blood 128 mg/dL (60-115)
[2021-11-18 21:32] LABS: Hematocrit 29.6 % (42.0-52.0); Mean Corpuscular HGB Conc 33.8 g/dl (31.0-36.0); Mean Corpuscular Hemoglobin 30.8 pg (27.0-33.0); Mean Corpuscular Volume 91.1 fL (80.0-98.0); Mean Platelet Volume 10.9 fL (9.4-12.4); NRBC Pct Auto 0.1 /100WBC (0.0-0.2); Platelet Count 155 X10*3/uL (160-400); Red Blood Count 3.25 X10*6/uL (4.60-5.80); Red Cell Distribution Width 16.8 % (11.0-16.0); White Blood Count 18.4 X10*3/uL (4.8-10.8)
[2021-11-18 21:44] LABS: ~Lactic Acid-LAB USE ONLY 3.4 mmol/L (0.5-2.0)
[2021-11-18] MEDS: Pantoprazole Sodium 80 MG in 0.9 % Sodium Chloride 80 ML 10 MG IV (21:47)
[2021-11-18 21:49] LABS: Anion Gap 13 (12-20); Blood Urea Nitrogen 59 mg/dL (9-16); Calcium 7.9 mg/dL (8.4-10.2); Carbon Dioxide 24 mmol/L (22-29); Chloride 107 mmol/L (96-108); Creatinine Clr Calc Pharmacy 116.9; Estimated Glomerular Filt Rate > 60; Glucose Random 139 mg/dL (60-115); Magnesium 1.9 mg/dL (1.6-2.6); Phosphorus 3.9 mg/dL (2.7-4.5); Potassium 5.2 mmol/L (3.3-5.1); Sodium 139 mmol/L (135-145)
[2021-11-18 21:50] LABS: B Type Natriuretic Peptide 37 pg/mL (<100)
[2021-11-18] MEDS: Lactated Ringers 1,000 ML 999 ML IV (22:06)
[2021-11-19] VITALS (24 sets, daily range): BP systolic 89–107; BP diastolic 41–61; PULSE 96–105; RESP 16–24; TEMP 36.8–37.9; O2SAT 94–100; BMI 24.8
[2021-11-19 01:12] LABS: Hematocrit 22.4 % (42.0-52.0); Hemoglobin 7.6 g/dl (14.0-18.0)
[2021-11-19 01:25] LABS: Lactic Acid 2.4 mmol/L (0.5-2.0)
[2021-11-19] MEDS: Hydrocortisone Sod Succ/PF 100 MG VIAL IVPUSH (01:48)
[2021-11-19 03:00] LABS: Glucose, Whole Blood 123 mg/dL (60-115)
[2021-11-19 03:07] LABS: Reflex Lactate? Lactic Acid Added
--- NOTE | 2021-11-19 03:43 | PC.NURSE ---
Addendum entered by German Cool RN 11/19/21 06:09: SAT AT BEDSIDE AND DANGLED LEGS PER REQUEST...C/O FEELING WOOZY WHILE DANGLING..BP 104/60 WHILE DANGLING...BACK INTO BED ..HOB 35 DEGREES..ASYMPTOMATIC..DENIES/OFFERS NO COMPLAINTS AT PRESENT Original Note: CARE ASSUMED 23:15....LR AND ALBUMEN INFUSED PER SEP...PRBC PREVIOUSLY INFUSED IN OR....NAPPING..EASILY AWAKENED..ALERT..ORIENTED X3...RESPIRATIONS EASY ON ROOM AIR...SBP 90'S-100'S...ASYMPTOMATIC...ATRIAL SENSED/V-PACED RHYTHM...VOIDING YELLOW URINE IN URINAL...PROTONIX DRIP 8 MG/HR..REPEAT LACTIC=2.4 & Hg 7.6..ICU PA PRESENT AND AWARE...REFLEXED 3AM LACTIC LEVEL HELD BY PA...FOR 6AM LACTIC LEVEL PER PA...DENIES DISCOMFORT/NAUSEA/OR PAIN..RESTFUL OVERNIGHT
--- NOTE | 2021-11-19 04:29 | CONS_ITS ---
DATE OF SERVICE: 11/18/2021 REFERRING PHYSICIAN: Dr. Michelle REASON FOR CONSULTATION: Upper GI bleeding. HISTORY OF PRESENT ILLNESS: Mr. Monahan is a pleasant 61-year-old man, well known to me from prior evaluation. He presented to the emergency department today with acute upper GI bleeding. He reports having a normal bowel movement last night. This morning he felt lightheaded and dizzy. He passed a large black stool which was loose at home and called Dr. Merchant who advised him to come, in the lobby he vomited red blood and clots and was brought to the emergency room. He does have a history of ITP and has recently been on prednisone for this. He is also on 81 mg of aspirin for his aortic valve replacement, which was a TAVR. He denies any epigastric pain. 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 His upper endoscopy showed multiple gastric polyps with no bleeding as well as polypoid changes to the duodenum. He was started on a proton pump inhibitor, but this appears to have been stopped at some point since then. Colonoscopy at the same time showed multiple polyps measuring up to 8-10 mm, consistent with his previous hamartomatous polyps. No polypectomies were performed and no source for GI bleeding was identified. Capsule endoscopy was discussed, but not pursued. He had been on Eliquis and is not taking this anymore. In the emergency department, he has been mildly tachycardic with a heart rate around 100 and blood pressures in the 85 to 95 range. He is going to receive 1 unit of packed red blood cells and Dr. Juan is seeing him for potential ICU admission. PAST MEDICAL HISTORY: 1. Hodgkin lymphoma diagnosed in 1989. 2. 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as above. 3. ITP as above. 4. Cardiomyopathy with aortic stenosis and defibrillator placement. 5. TAVR, October 2020. 6. Pulmonary embolism. 7. Left bundle branch block. CURRENT MEDICATIONS: Current medication list is reviewed in the chart. ALLERGIES: THERE ARE NONE REPORTED. FAMILY HISTORY: This is reviewed with the patient is noncontributory. SOCIAL HISTORY: There is no current tobacco, alcohol, or substance abuse. REVIEW OF SYSTEMS: SKIN: No pruritus. HEENT: Negative. CARDIOPULMONARY: No shortness of breath or chest pain. GASTROINTESTINAL: As above. GENITOURINARY: Negative. NEUROPSYCHIATRIC: Negative. PHYSICAL EXAMINATION: GENERAL: Pleasant male, lying on the stretcher in the emergency department. He is quite thin. VITAL SIGNS: Reviewed and are as above. SKIN: Pale. HEENT: No scleral icterus. NECK: Without lymphadenopathy or thyromegaly. LUNGS: Clear. HEART: Regular rate and rhythm. S1, S2. No murmur. ABDOMEN: Soft. There is well-healed incision from a previous midline incision rather from previous surgery. Bowel sounds present. No organomegaly is noted. EXTREMITIES: Without edema. LABORATORY DATA: White blood cell count of 18.9, hematocrit 32.3, which was down from 43 yesterday. IMPRESSION: Upper GI bleeding. It appears likely that the patient has bleeding from gastritis or an ulcer based on his aspirin and prednisone usage. This possibly could be bleeding from his gastric polyps. I have recommended he undergo upper endoscopy for further evaluation and treatment. I have discussed risks and benefits of the procedure with him. He understands these and agrees to proceed. Thanks for asking me to see him. I will follow him in the hospital with you. MD ELLYN Andersen/LETICIA / [id number]
[2021-11-19] MEDS: Pantoprazole Sodium 80 MG in 0.9 % Sodium Chloride 80 ML 10 MG IV ×2 (05:15→14:57)
[2021-11-19 05:30] LABS: MANUAL DIFF FLAG NO
[2021-11-19 05:36] LABS: Basophils Percent Auto 0.2 % (0-2); Hematocrit 22.4 % (42.0-52.0); Hemoglobin 7.5 g/dl (14.0-18.0); Imm Gran Abs Auto 0.33 X10*3/uL (0.00-0.03); Imm Gran Pct Auto 1.8 % (0.0-0.4); Lymphocytes Absolute Auto 1.6 X10*3/uL (1.2-4.9); Lymphocytes Percent Auto 8.9 % (20-40); Mean Corpuscular HGB Conc 33.5 g/dl (31.0-36.0); Mean Corpuscular Hemoglobin 30.9 pg (27.0-33.0); Mean Corpuscular Volume 92.2 fL (80.0-98.0); Mean Platelet Volume 11.4 fL (9.4-12.4); Monocytes Percent Auto 5.6 % (2-11); NRBC Pct Auto 0.1 /100WBC (0.0-0.2); Neutrophils Absolute Auto 15.1 x10*3/uL (2.0-8.3); Neutrophils Percent Auto 83.5 % (45-73); Platelet Count 137 X10*3/uL (160-400); Red Blood Count 2.43 X10*6/uL (4.60-5.80); Red Cell Distribution Width 17.2 % (11.0-16.0); White Blood Count 18.1 X10*3/uL (4.8-10.8)
[2021-11-19 05:46] LABS: Lactic Acid 2.4 mmol/L (0.5-2.0)
[2021-11-19 05:52] LABS: Alanine Aminotransferase 15 U/L (0-40); Albumin Level 3.2 g/dL (3.5-5.0); Alkaline Phosphatase 25 U/L (39-117); Anion Gap 12 (12-20); Aspartate Amino Transferase 17 U/L (5-37); Bilirubin Total 0.5 mg/dL (0.0-1.0); Blood Urea Nitrogen 52 mg/dL (9-16); Calcium 8.6 mg/dL (8.4-10.2); Carbon Dioxide 25 mmol/L (22-29); Chloride 108 mmol/L (96-108); Creatinine Clr Calc Pharmacy 116.9; Estimated Glomerular Filt Rate > 60; Glucose Random 154 mg/dL (60-115); Potassium 4.7 mmol/L (3.3-5.1); Sodium 140 mmol/L (135-145); Total Protein 4.7 g/dL (6.5-8.0)
--- NOTE | 2021-11-19 05:55 | OP_ITS ---
SURGEON: London Leal MD INDICATIONS: Upper GI bleeding. PREOPERATIVE DIAGNOSIS: POSTOPERATIVE DIAGNOSIS: PROCEDURE PERFORMED: ESTIMATED BLOOD LOSS: COMPLICATIONS: ANESTHESIA: ASSISTANTS: SPECIMENS: PROCEDURE: Upper endoscopy. MEDICATIONS: Monitored anesthesia care. DESCRIPTION OF PROCEDURE: A history and physical performed. The risks and benefits of the procedure were explained to the patient. Informed consent was obtained. The patient is placed in left lateral decubitus position. The Olympus video gastroscope was introduced into the esophagus, stomach, and duodenum. Examination was performed. The scope was removed. He tolerated the procedure well and was taken to recovery area in stable condition. FINDINGS: Esophagus: The esophagus showed glycogenic acanthosis, but no source for bleeding. There was no esophagitis. Stomach: The stomach contained a large amount of old clotted blood and some red clotted blood. There was a large amount of liquid, old blood present. The stomach was irrigated and suctioned tediously and the patient was repositioned to try and examine as much of the fundus under the clot as possible. Multiple gastric polyps were identified as in the patient's previous endoscopy. There was old blood in the antrum. This was washed and suctioned. No source for bleeding was identified. Despite repositioning the patient and tedious irrigation, the retroflexed view showed the EG junction to be intact with no sign of active bleeding at the EG junction. Duodenum: The bulb and second portion showed old blood, but no active bleeding. There were polypoid changes in the second portion as previously identified on the patient's endoscopy last summer. IMPRESSION: 1. Upper gastrointestinal bleeding, source not identified. 2. Gastric polyps consistent with the patient's diagnosis of Val syndrome. RECOMMENDATIONS: 1. Monitor closely in ICU. 2. Follow H and H and consider repeat endoscopy in the next 24 hours pending his clinical course. MD ELLYN Andersen/LETICIA / [id number]
[2021-11-19 07:27] LABS: Reflex Lactate? Lactic Acid Added
[2021-11-19] MEDS: LORazepam 2 MG/ML VIAL 0.5 MG IVPUSH (09:30)
--- NOTE | 2021-11-19 09:45 | HO.POSTANES ---
Post Anesthesia Evaluation Post Anesthesia Evaluation Vital Signs: Vital Signs Temp Pulse Resp BP Pulse Ox 11/19/21 09:00 103 H 18 93/41 L 95 11/19/21 08:16 102 H 16 96/58 L 11/19/21 08:00 98.6 F 103 H 21 H 96/58 L 97 11/19/21 07:00 99 16 90/54 L 94 11/19/21 06:00 104 H 18 104/60 96 11/19/21 05:33 100 18 107/60 96 11/19/21 05:00 100 17 104/59 L 95 11/19/21 04:00 101 H 20 97/58 L 95 11/19/21 03:00 99.1 F 104 H 18 91/50 L 97 11/19/21 02:00 105 H 23 H 96/58 L 96 11/19/21 01:00 104 H 19 97/57 L 96 11/19/21 00:00 99 17 93/50 L 96 11/18/21 23:47 97.9 F 100 20 94/59 L 96 11/18/21 23:00 98 17 91/52 L 97 11/18/21 22:00 99.2 F 99 20 98/57 L 98 Anesthesia: General Mental Status: Awake Pain Control: Satisfactory Nausea/Vomiting: None Hydration: Adequate Anesthesia-Related Issues: No Anes. Related Issues
[2021-11-19 09:48] LABS: Hematocrit 22.5 % (42.0-52.0); Hemoglobin 7.6 g/dl (14.0-18.0)
--- NOTE | 2021-11-19 10:25 | PC.NURSE ---
V.O Dr Juan Infused second unit of blood over two hours. Blood hung at 1024. LS clear to dim, patient resting quiently with eyes closed, BP 94/48, HR 104, 95% on RA.
--- NOTE | 2021-11-19 11:50 | P.PNCC_ITS ---
Subjective Subjective Date of Service: 11/19/21 Interval History: Mr. Monahan was admitted to the ICU last nite because of UGI bleeding. 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 He has a PMHx of Hodgkin's lymphoma in remission, Hamilton's syndrome, ITP.? Followed by Dr. Merchant and treated with rituximab, last dose on October 29.? Also past medical history of aortic stenosis, status post TAVR about a year ago; status post cardiac resynchronization therapy defibrillator ([employer]) placed about 8 years ago for CHF, the latter of which was consequent to his treatment for Hodgkin's lymphoma; and hypothyroidism.? Known LBBB (left bundle branch block).? Also chronic leukocytosis since September of this year.? He takes aspirin for his aortic valve and prednisone for his ITP.? There is also remote h/o pulmon embolism. Last echocardiogram in December,, showed normal LV systolic function, normal function of the bioprosthetic aortic valve, normal RV size and function, dilated IVC, RVSP 28 mm The patient does have a history of hamartomatous polyps of the GI tract (Hamilton syndrome) and underwent upper endoscopy and colonoscopy in January of last year because of anemia and Hemoccult-positive stools.? His upper endoscopy showed multiple gastric polyps with no bleeding as well as polypoid changes to the duodenum.? Colonoscopy showed multiple polyps measuring up to 8-10 mm, consistent with his previous hamartomatous polyps. ?He was started on a proton pump inhibitor, but that appears to have been stopped at some point since then. The patient lives at home with his .? During the course of his daily work, he tells me that he walks 5 miles a day with only occasional shortness of breath. HISTORY OF PRESENT ILLNESS: ?The patient presented to the ED yest afternoon because of severe weakness with dizziness and black diarrhea since the morning.? As he was getting out of his car in the parking lot of the hospital, he started vomiting blood.? He was brought into the emergency room, where he vomited blood a second time.? He denied abdominal pain. In the ED, the patient was fully awake and appropriate, in no acute distress.? HR 93, BP 128/76, breathing easy, Sat 100% on room air.? General physical exam was unremarkable except for black tarry stool on rectal exam. Labs in the ED were notable for HB 10.8 (was 14.4 the prior day on a routine lab check in Dr. Merchant?s office).? Coags were normal.? BUN/creat were 64/0.8 (26/0.8 the prior day). ?Lactic acid was 2.5. In the ED, his BP dropped into the 80s.? Was volume resusc w 1 L of normal sali ne and given Protonix 80 mg, followed by 1 unit RBCs, following which he went to the OR with Dr. Leal.? At EGD, the stomach was full of old clotted blood and some red clotted blood.? Multiple gastric polyps were identified as in the previous endoscopy.? No source of bleeding was identified.? The bulb and 2nd portion of the duodenum showed old blood, but no active bleeding.? The procedure was completed, patient was extubated, taken to the PACU, and from there admitted to the ICU. In the ICU, f/u Hb after the 1 unit of RBCs was 10.0, BUN/creat down to 59/0.6, lactate was 3.4.? He was further resuscitated with another L of crystalloid. ?At 1am this morning, repeat hemoglobin was down to 7.6, this morning at 05:00 hemoglobin was 7.5, and at 09:00 hemoglobin was 7.6.? Lactic acid this morning was 2.4. On my exam, the patient is easily arousable, oriented and appropriate.? Breathing easy, sat 100% on room air.? HR about 100, fully paced.? BP 96/47.? Afebrile.? No JVD at 30?.? Chest clear to auscultation, with normal expiratory phase.? Heart rate and rhythm are regular, with normal-sounding S1 and S2, ? ?poorly characterized click. ?Abdomen is benign.? He has no edema. LABORATORY DATA:? As below, and as noted above. IMPRESSION:? 61 yo M w PMHx of Hodgkin's lymphoma in remission, Hamilton's sy ndrome, ITP on chemotx, aortic stenosis s/p TAVR, s/p cardiac resynchronization therapy defibrillator, hypothyroidism, chronic leukocytosis, pulmon embolism. 1. Acute UGI bleed, source undetermined, likely related to prednisone and ASA use.? Plan for repeat EGD today. 2. Hemorrhagic shock.? S/p resuscitation. 3. Acute anemia.? BP is still low, lactate still positive.? We?ll give another unit RBC?s this morning. 4. Acute kidney injury.? 2? hypovolemia and hypoperfusion.? Resolving. 5. Hyperkalemia.? 2? above.? No tx needed at this point. 6. ITP on treatment with Dr. Merchant, including prednisone.? D/w her, we will plan to stop the prednisone for two weeks.? Dr. Merchant indicated that the risk is that his platelet count might fall rapidly, altho maybe not, now that he is on rituxan.? We will follow a CBC daily while he?s in hospital.? He should see Dr. Merchant in the office next week. 7. S/P TAVR, on aspirin.? I believe the patient is a patient of Dr. Wyman, who is off today.? I spoke with Dr. Javier who indicated there is no problem stopping the aspirin for 2 weeks. 6. No evidence of sepsis or any infection. 7. Generally at low risk of DVT, but bec of h/o PE, I?ve put him on sequential compression stockings when in bed. Can restart the patient?s Iron, thyroid, and Corlanor later today, after his EGD.? Hold his eplerenone and Lasix until a day or two after he?s fully resuscitated (probably until Monday).? With his fairly normal echo, no danger that he?s going to go into heart failure. ADDENDUM:? At EGD today, the patient was noted to have a 12 mm gastric ulcer with a visible vessel and no active bleeding.? The vessel was treated with epinephrine and cauterized with the gold probe.? The patient was returned to the ICU in stable condition.? During the procedure he was given 400 cc of LR, and we gave him another 500 cc after return to the ICU.? He has been urinating frequently since then.? Heart rate now is 98, paced.? Blood pressure 94/56.? Breathing easy, Sat 97% on room air. Stable for transfer to [facility].? Clear liquids till tomorrow and then advance diet as tolerated.? I will sign out to the hospitalists. Critical Care Time (minutes): 0 Physical Exam Vital Signs: Vital Signs: Last Vital Signs Temp 99.8 F 11/19/21 10:37 Pulse 104 H 11/19/21 11:00 Resp 19 11/19/21 11:00 BP 91/51 L 11/19/21 11:00 Pulse Ox 95 11/19/21 11:00 BMI result Body Mass Index 24.8 Objective Data Labs CBC & Chem 7: 11/19/21 08:46 11/19/21 05:22 Labs: Laboratory Results - last 24 hr 11/18/21 11/18/21 11/18/21 15:39 15:40 15:40 WBC 18.9 H RBC 3.43 L D Hgb 10.8 L D Hct 32.3 L D MCV 94.2 MCH 31.5 MCHC 33.4 RDW 16.3 H Plt Count 210 MPV 11.0 Immature Gran % (Auto) 1.9 H Neut % (Auto) 91.5 H Lymph % (Auto) 3.4 L Hendricks % (Auto) 2.9 Eos % (Auto) 0.0 Baso % (Auto) 0.3 Lymph # (Auto) 0.6 L Hendricks # (Auto) 0.5 Eos # (Auto) 0.0 Baso # (Auto) 0.1 Abs Immat Gran (auto) 0.35 H Absolute Neuts (auto) 17.3 H Absolute Nucleated RBC 0.000 Nucleated RBC % (auto) 0.0 Smear Tech's Comments VERIFIED PT INR APTT Sodium 138 Potassium 4.9 Chloride 101 Carbon Dioxide 26 Anion Gap 16 BUN 64 H D Creatinine 0.81 Estim Creat Clear Calc 98.1 Estimated GFR > 60 POC Glucose Random Glucose 216 H D Lactic Acid 2.5 H* Lactic Acid F/U @ 2Hr Lactic Acid F/U @ 4Hr Calcium 8.6 D Phosphorus Magnesium Total Bilirubin 0.3 Direct Bilirubin < 0.2 AST 23 ALT 23 Alkaline Phosphatase 44 Troponin I High Sens B-Natriuretic Peptide Total Protein 5.9 L Albumin 3.3 L Lipase 28 TSH 1.33 Urine Color Urine Appearance Urine pH Ur Specific Zeigler Urine Protein Urine Glucose (UA) Urine Ketones Urine Blood Urine Nitrite Ur Leukocyte Esterase Stool Occult Blood COVID-19 (SHANICE) COVID-19 Clin Com Blood Type Antibody Screen Crossmatch 11/18/21 11/18/21 11/18/21 15:41 15:42 16:04 WBC RBC Hgb Hct MCV MCH MCHC RDW Plt Count MPV Immature Gran % (Auto) Neut % (Auto) Lymph % (Auto) Hendricks % (Auto) Eos % (Auto) Baso % (Auto) Lymph # (Auto) Hendricks # (Auto) Eos # (Auto) Baso # (Auto) Abs Immat Gran (auto) Absolute Neuts (auto) Absolute Nucleated RBC Nucleated RBC % (auto) Smear Tech's Comments PT INR APTT Sodium Potassium Chloride Carbon Dioxide Anion Gap BUN Creatinine Estim Creat Clear Calc Estimated GFR POC Glucose Random Glucose Lactic Acid Lactic Acid F/U @ 2Hr Lactic Acid F/U @ 4Hr Calcium Phosphorus Magnesium Total Bilirubin Direct Bilirubin AST ALT Alkaline Phosphatase Troponin I High Sens 13.9 D B-Natriuretic Peptide Total Protein Albumin Lipase TSH Urine Color STRAW Urine Appearance CLEAR Urine pH 5.5 Ur Specific Zeigler 1.020 Urine Protein NEG Urine Glucose (UA) 250 H Urine Ketones 5 Urine Blood NEG Urine Nitrite NEG Ur Leukocyte Esterase NEG Stool Occult Blood COVID-19 (SHANICE) Negative COVID-[employer] Com See Note Blood Type Antibody Screen Crossmatch 11/18/21 11/18/21 11/18/21 16:08 16:21 16:55 WBC RBC Hgb Hct MCV MCH MCHC RDW Plt Count MPV Immature Gran % (Auto) Neut % (Auto) Lymph % (Auto) Hendricks % (Auto) Eos % (Auto) Baso % (Auto) Lymph # (Auto) Hendricks # (Auto) Eos # (Auto) Baso # (Auto) Abs Immat Gran (auto) Absolute Neuts (auto) Absolute Nucleated RBC Nucleated RBC % (auto) Smear Tech's Comments PT 11.5 INR 1.0 APTT 33.2 D Sodium Potassium Chloride Carbon Dioxide Anion Gap BUN Creatinine Estim Creat Clear Calc Estimated GFR POC Glucose Random Glucose Lactic Acid Lactic Acid F/U @ 2Hr Lactic Acid F/U @ 4Hr Calcium Phosphorus Magnesium Total Bilirubin Direct Bilirubin AST ALT Alkaline Phosphatase Troponin I High Sens B-Natriuretic Peptide Total Protein Albumin Lipase TSH Urine Color Urine Appearance Urine pH Ur Specific Zeigler Urine Protein Urine Glucose (UA) Urine Ketones Urine Blood Urine Nitrite Ur Leukocyte Esterase Stool Occult Blood POSITIVE COVID-19 (SHANIEC) COVID-19 [employer] Com Blood Type A Positive Antibody Screen NEGATIVE Crossmatch See Detail 11/18/21 11/18/21 11/18/21 19:05 21:24 21:24 WBC 18.4 H RBC 3.25 L Hgb 10.0 L Hct 29.6 L MCV 91.1 MCH 30.8 MCHC 33.8 RDW 16.8 H Plt Count 155 L D MPV 10.9 Immature Gran % (Auto) Neut % (Auto) Lymph % (Auto) Hendricks % (Auto) Eos % (Auto) Baso % (Auto) Lymph # (Auto) Hendricks # (Auto) Eos # (Auto) Baso # (Auto) Abs Immat Gran (auto) Absolute Neuts (auto) Absolute Nucleated RBC 0.020 H Nucleated RBC % (auto) 0.1 Smear Tech's Comments PT INR APTT Sodium 139 Potassium 5.2 H Chloride 107 Carbon Dioxide 24 Anion Gap 13 BUN 59 H Creatinine 0.68 Estim Creat Clear Calc 116.9 Estimated GFR > 60 POC Glucose Random Glucose 139 H D Lactic Acid Lactic Acid F/U @ 2Hr 3.2 H* Lactic Acid F/U @ 4Hr Calcium 7.9 L D Phosphorus 3.9 Magnesium 1.9 Total Bilirubin Direct Bilirubin AST ALT Alkaline Phosphatase Troponin I High Sens B-Natriuretic Peptide Total Protein Albumin Lipase TSH Urine Color Urine Appearance Urine pH Ur Specific Zeigler Urine Protein Urine Glucose (UA) Urine Ketones Urine Blood Urine Nitrite Ur Leukocyte Esterase Stool Occult Blood COVID-19 (SHANICE) COVID-19 Clin Com Blood Type Antibody Screen Crossmatch 11/18/21 11/18/21 11/18/21 21:24 21:24 21:27 WBC RBC Hgb Hct MCV MCH MCHC RDW Plt Count MPV Immature Gran % (Auto) Neut % (Auto) Lymph % (Auto) Hendricks % (Auto) Eos % (Auto) Baso % (Auto) Lymph # (Auto) Hendricks # (Auto) Eos # (Auto) Baso # (Auto) Abs Immat Gran (auto) Absolute Neuts (auto) Absolute Nucleated RBC Nucleated RBC % (auto) Smear Tech's Comments PT INR APTT Sodium Potassium Chloride Carbon Dioxide Anion Gap BUN Creatinine Estim Creat Clear Calc Estimated GFR POC Glucose 128 H Random Glucose Lactic Acid Lactic Acid F/U @ 2Hr Lactic Acid F/U @ 4Hr 3.4 H* Calcium Phosphorus Magnesium Total Bilirubin Direct Bilirubin AST ALT Alkaline Phosphatase Troponin I High Sens B-Natriuretic Peptide 37 Total Protein Albumin Lipase TSH Urine Color Urine Appearance Urine pH Ur Specific Zeigler Urine Protein Urine Glucose (UA) Urine Ketones Urine Blood Urine Nitrite Ur Leukocyte Esterase Stool Occult Blood COVID-19 (SHANICE) COVID-19 Clin Com Blood Type Antibody Screen Crossmatch 11/19/21 11/19/21 11/19/21 01:03 01:03 02:54 WBC RBC Hgb 7.6 L D Hct 22.4 L D MCV MCH MCHC RDW Plt Count MPV Immature Gran % (Auto) Neut % (Auto) Lymph % (Auto) Hendricks % (Auto) Eos % (Auto) Baso % (Auto) Lymph # (Auto) Hendricks # (Auto) Eos # (Auto) Baso # (Auto) Abs Immat Gran (auto) Absolute Neuts (auto) Absolute Nucleated RBC Nucleated RBC % (auto) Smear Tech's Comments PT INR APTT Sodium Potassium Chloride Carbon Dioxide Anion Gap BUN Creatinine Estim Creat Clear Calc Estimated GFR POC Glucose 123 H Random Glucose Lactic Acid 2.4 H* Lactic Acid F/U @ 2Hr Lactic Acid F/U @ 4Hr Calcium Phosphorus Magnesium Total Bilirubin Direct Bilirubin AST ALT Alkaline Phosphatase Troponin I High Sens B-Natriuretic Peptide Total Protein Albumin Lipase TSH Urine Color Urine Appearance Urine pH Ur Specific Zeigler Urine Protein Urine Glucose (UA) Urine Ketones Urine Blood Urine Nitrite Ur Leukocyte Esterase Stool Occult Blood COVID-19 (SHANICE) COVID-19 Clin Com Blood Type Antibody Screen Crossmatch 11/19/21 11/19/21 11/19/21 05:22 05:22 05:22 WBC 18.1 H RBC 2.43 L D Hgb 7.5 L Hct 22.4 L MCV 92.2 MCH 30.9 MCHC 33.5 RDW 17.2 H Plt Count 137 L MPV 11.4 Immature Gran % (Auto) 1.8 H Neut % (Auto) 83.5 H Lymph % (Auto) 8.9 L Hendricks % (Auto) 5.6 Eos % (Auto) 0.0 Baso % (Auto) 0.2 Lymph # (Auto) 1.6 Hendricks # (Auto) 1.0 Eos # (Auto) 0.0 Baso # (Auto) 0.0 Abs Immat Gran (auto) 0.33 H Absolute Neuts (auto) 15.1 H Absolute Nucleated RBC 0.020 H Nucleated RBC % (auto) 0.1 Smear Tech's Comments PT INR APTT Sodium 140 Potassium 4.7 Chloride 108 Carbon Dioxide 25 Anion Gap 12 BUN 52 H Creatinine 0.68 Estim Creat Clear Calc 116.9 Estimated GFR > 60 POC Glucose Random Glucose 154 H Lactic Acid 2.4 H* Lactic Acid F/U @ 2Hr Lactic Acid F/U @ 4Hr Calcium 8.6 D Phosphorus Magnesium Total Bilirubin 0.5 Direct Bilirubin AST 17 ALT 15 Alkaline Phosphatase 25 L D Troponin I High Sens B-Natriuretic Peptide Total Protein 4.7 L D Albumin 3.2 L Lipase TSH Urine Color Urine Appearance Urine pH Ur Specific Zeigler Urine Protein Urine Glucose (UA) Urine Ketones Urine Blood Urine Nitrite Ur Leukocyte Esterase Stool Occult Blood COVID-19 (SHANICE) COVID-[employer] Blood Type Antibody Screen Crossmatch 11/19/21 08:46 WBC RBC Hgb 7.6 L Hct 22.5 L MCV MCH MCHC RDW Plt Count MPV Immature Gran % (Auto) Neut % (Auto) Lymph % (Auto) Hendricks % (Auto) Eos % (Auto) Baso % (Auto) Lymph # (Auto) Hendricks # (Auto) Eos # (Auto) Baso # (Auto) Abs Immat Gran (auto) Absolute Neuts (auto) Absolute Nucleated RBC Nucleated RBC % (auto) Smear Tech's Comments PT INR APTT Sodium Potassium Chloride Carbon Dioxide Anion Gap BUN Creatinine Estim Creat Clear Calc Estimated GFR POC Glucose Random Glucose Lactic Acid Lactic Acid F/U @ 2Hr Lactic Acid F/U @ 4Hr Calcium Phosphorus Magnesium Total Bilirubin Direct Bilirubin AST ALT Alkaline Phosphatase Troponin I High Sens B-Natriuretic Peptide Total Protein Albumin Lipase TSH Urine Color Urine Appearance Urine pH Ur Specific Zeigler Urine Protein Urine Glucose (UA) Urine Ketones Urine Blood Urine Nitrite Ur Leukocyte Esterase Stool Occult Blood COVID-19 (SHANICE) COVID-19 [employer] Blood Type Antibody Screen Crossmatch Quality Stroke Does the patient have a stroke diagnosis?: No VTE Prior VTE?: No VTE Risk Level:: Medical - low VTE Device Contraindication: Treatment Not Indicated VTE Drug Contraindication: Treatment Not Indicated
--- NOTE | 2021-11-19 13:05 | MHC.SHP ---
Pre-Procedural Eval Section A Date of Service: 11/19/21 The patient is an INPATIENT: Yes Changes since office visit: No Cold of Flu in the past 2 weeks, No New Medical Problems, No Changes in Medication and No Patient answered all questions The History & Physical has been completed within 30 days and I have reviewed it.: Yes Section B Chief Complaint: UGI bleed Allergies: Allergies Allergy/AdvReac Type Severity Reaction Status Date / Time No Known Allergies Allergy Verified 11/11/21 13:13 [No Known Allergies*] Plan I have reviewed the history and physical and performed a pertinent physical examination on my patient. No changes have occurred unless specified.
--- NOTE | 2021-11-19 13:16 | MHC.CM.PN ---
This clinical writer met with patient for CM intro/assessment. See Interventions for full CM assessment. Independent @ home. Open to services in the home if needed @ d/c. Patient has had [facility] in the past. to transport @ d/c.
--- NOTE | 2021-11-19 13:18 | P.CONAN_ITS ---
[facility] Active Problems Active Problems: All Active Problems (Updated 11/18/21 @ 17:50 by Anna Michelle MD) Acute upper GI bleed (Acute) Acute ITP (Acute) COVID-19 (Acute) Thrombocytopenia (Acute) Rash (Acute) Multinodular thyroid (Acute) Rib fracture (Acute) Right hip pain (Acute) Rib pain (Acute) Multinodular thyroid (Acute) Hyperkalemia (Acute) Fecal occult blood test positive (Acute) Bilateral pulmonary embolism (Acute) Encounter for interrogation of cardiac defibrillator (Acute) Closed femur fracture (Acute) 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(Acute) NICM (nonischemic cardiomyopathy) (Acute) Vitamin D deficiency (Acute) Osteoporosis (Acute) Low TSH level (Acute) Anemia (Acute) Congestive heart failure (Acute) Hypothyroidism (Acute) Hypocalcemia (Acute) Past Medical History Medical History Anemia Aortic stenosis, severe Cardiac resynchronization therapy defibrillator (REAL ESTATE REP-D) in place Complete heart block Congestive heart failure COVID-19 vaccine series completed Gleason syndrome HFrEF (heart failure with reduced ejection fraction) Hodgkins lymphoma Hypocalcemia Hypotension (arterial) Hypothyroidism LBBB (left bundle branch block) Leukocytosis Low TSH level Multinodular thyroid Multinodular thyroid NICM (nonischemic cardiomyopathy) Osteoporosis Pacemaker Pulmonary embolism Recurrent pleural effusion on right Rib fracture Rib pain Right hip pain Shortness of breath Sinus tachycardia Vitamin D deficiency Functional capacity: independent ambulation Family History Family History Father Healthy adult male Mother Bladder cancer Surgical History Surgical History H/O splenectomy History of appendectomy History of cardiac pacemaker History of esophagogastroduodenoscopy (EGD) History of hip surgery Hx of colonoscopy S/P TAVR (transcatheter aortic valve replacement) History of Problems with Anesthesia: No Social History Social History Household Members: Spouse and Children Housing: House Are you a primary urgent care technician to a significant other at home: No Do you presently have visiting nurse or other home services: No Alcohol intake: current Alcohol intake frequency: holidays/special occasions only Patient Tobacco Use Status: Never used Tobacco e-Cigarette/Vaping Use: Never Used Second Hand Smoke Exposure: No Use of substances other than those prescribed or required for medical reasons: No Currently Displaying Signs/Symptoms of Drug Intoxication Withdrawal: No Have you been hit, kicked, punched, or otherwise hurt by someone within the past year? If so, by whom?: No Do you feel safe in your current relationship?: Yes Is there a partner from a previous relationship who is making you feel unsafe now?: No Are you made to feel afraid or neglected: No Advance Directives: No Advance Directives Information Provided: No Advance Directives on File: No Advance Directives Date on File: 01/25/21 Do you have thoughts of harming others: None Do you have a plan to hurt others: No Plan Recently lost weight without trying: No Nutrition Risks: No Nutritional Risk Poor oral hygiene: No service: Yes Current occupational status: employed Current occupational exposures/hazards: No Meds Allergies Allergy/AdvReac Type Severity Reaction Status Date / Time No Known Allergies Allergy Verified 11/11/21 13:13 [No Known Allergies*] Active Medications: Current Medications Pantoprazole Sodium 80 mg/ (Sodium Chloride) 100 mls @ 10 mls/hr IV .Q10H [facility] Last Admin: 11/19/21 05:15 Dose: 8 mg/hr, 10 mls/hr Documented by: Ondansetron HCl (Ondansetron Hcl 4 Mg/2 Ml Vial) 4 mg IVPUSH Q6H PRN PRN Reason: Nausea Pharmacy Consult (Consult Rx Perform Med Rec) 1 each MISCELLANE ONCE PRN PRN Reason: Consult order Home Medications Medication Instructions Recorded Confirmed Last Taken Type eplerenone 25 mg tablet (Inspra) 25 mg PO DAILY 11/05/21 11/18/21 11/17/21 History furosemide 20 mg tablet 40 mg PO DAILY@1800 11/18/21 11/18/21 11/17/21 History levothyroxine 125 mcg tablet 300 mcg PO CRUZ 11/18/21 11/18/21 11/17/21 History (Synthroid) levothyroxine 150 mcg tablet 150 mcg PO [id number] 11/18/21 11/18/21 11/17/21 History prednisone 20 mg tablet 40 mg PO DAILY 11/18/21 11/18/21 11/17/21 History Exam Exam Date and Time: November 19, 2021 1318 Height,Weight and Vital Signs: Height 5 ft 9 in Weight 76.4 kg Last Vital Signs Temp 98.3 F 11/19/21 13:03 Pulse 98 11/19/21 13:03 Resp 19 11/19/21 13:03 BP 100/50 L 11/19/21 13:03 Pulse Ox 97 11/19/21 13:00 Pertinent Lab Results Pertinent Lab Results: Laboratory Tests 11/18/21 11/18/21 11/18/21 15:39 15:40 15:40 WBC 18.9 H RBC 3.43 L D Hgb 10.8 L D Hct 32.3 L D MCV 94.2 MCH 31.5 MCHC 33.4 RDW 16.3 H Plt Count 210 MPV 11.0 Immature Gran % (Auto) 1.9 H Neut % (Auto) 91.5 H Lymph % (Auto) 3.4 L [place] % (Auto) 2.9 Eos % (Auto) 0.0 Baso % (Auto) 0.3 Lymph # (Auto) 0.6 L [place] # (Auto) 0.5 Eos # (Auto) 0.0 Baso # (Auto) 0.1 Abs Immat Gran (auto) 0.35 H Absolute Neuts (auto) 17.3 H Absolute Nucleated RBC 0.000 Nucleated RBC % (auto) 0.0 Smear Tech's Comments VERIFIED PT INR APTT Sodium 138 Potassium 4.9 Chloride 101 Carbon Dioxide 26 Anion Gap 16 BUN 64 H D Creatinine 0.81 Estim Creat Clear Calc 98.1 Estimated GFR > 60 POC Glucose Random Glucose 216 H D Lactic Acid 2.5 H* Lactic Acid F/U @ 2Hr Lactic Acid F/U @ 4Hr Calcium 8.6 D Phosphorus Magnesium Total Bilirubin 0.3 Direct Bilirubin < 0.2 AST 23 ALT 23 Alkaline Phosphatase 44 Troponin I High Sens B-Natriuretic Peptide Total Protein 5.9 L Albumin 3.3 L Lipase 28 TSH 1.33 Urine Color Urine Appearance Urine pH Ur Specific [place] Urine Protein Urine Glucose (UA) Urine Ketones Urine Blood Urine Nitrite Ur Leukocyte Esterase Stool Occult Blood COVID-19 (SHANICE) COVID-19 Clin Com Blood Type Antibody Screen Crossmatch 11/18/21 11/18/21 11/18/21 15:41 15:42 16:04 WBC RBC Hgb Hct MCV MCH MCHC RDW Plt Count MPV Immature Gran % (Auto) Neut % (Auto) Lymph % (Auto) [place] % (Auto) Eos % (Auto) Baso % (Auto) Lymph # (Auto) [place] # (Auto) Eos # (Auto) Baso # (Auto) Abs Immat Gran (auto) Absolute Neuts (auto) Absolute Nucleated RBC Nucleated RBC % (auto) Smear Tech's Comments PT INR APTT Sodium Potassium Chloride Carbon Dioxide Anion Gap BUN Creatinine Estim Creat Clear Calc Estimated GFR POC Glucose Random Glucose Lactic Acid Lactic Acid F/U @ 2Hr Lactic Acid F/U @ 4Hr Calcium Phosphorus Magnesium Total Bilirubin Direct Bilirubin AST ALT Alkaline Phosphatase Troponin I High Sens 13.9 D B-Natriuretic Peptide Total Protein Albumin Lipase TSH Urine Color STRAW Urine Appearance CLEAR Urine pH 5.5 Ur Specific [place] 1.020 Urine Protein NEG Urine Glucose (UA) 250 H Urine Ketones 5 Urine Blood NEG Urine Nitrite NEG Ur Leukocyte Esterase NEG Stool Occult Blood COVID-19 (SHANICE) Negative COVID-[place] See Note Blood Type Antibody Screen Crossmatch 11/18/21 11/18/21 11/18/21 16:08 16:21 16:55 WBC RBC Hgb Hct MCV MCH MCHC RDW Plt Count MPV Immature Gran % (Auto) Neut % (Auto) Lymph % (Auto) [place] % (Auto) Eos % (Auto) Baso % (Auto) Lymph # (Auto) [place] # (Auto) Eos # (Auto) Baso # (Auto) Abs Immat Gran (auto) Absolute Neuts (auto) Absolute Nucleated RBC Nucleated RBC % (auto) Smear Tech's Comments PT 11.5 INR 1.0 APTT 33.2 D Sodium Potassium Chloride Carbon Dioxide Anion Gap BUN Creatinine Estim Creat Clear Calc Estimated GFR POC Glucose Random Glucose Lactic Acid Lactic Acid F/U @ 2Hr Lactic Acid F/U @ 4Hr Calcium Phosphorus Magnesium Total Bilirubin Direct Bilirubin AST ALT Alkaline Phosphatase Troponin I High Sens B-Natriuretic Peptide Total Protein Albumin Lipase TSH Urine Color Urine Appearance Urine pH Ur Specific [place] Urine Protein Urine Glucose (UA) Urine Ketones Urine Blood Urine Nitrite Ur Leukocyte Esterase Stool Occult Blood POSITIVE COVID-19 (SHANICE) COVID-[place] Blood Type A Positive Antibody Screen NEGATIVE Crossmatch See Detail 11/18/21 11/18/21 11/18/21 19:05 21:24 21:24 WBC 18.4 H RBC 3.25 L Hgb 10.0 L Hct 29.6 L MCV 91.1 MCH 30.8 MCHC 33.8 RDW 16.8 H Plt Count 155 L D MPV 10.9 Immature Gran % (Auto) Neut % (Auto) Lymph % (Auto) [place] % (Auto) Eos % (Auto) Baso % (Auto) Lymph # (Auto) [place] # (Auto) Eos # (Auto) Baso # (Auto) Abs Immat Gran (auto) Absolute Neuts (auto) Absolute Nucleated RBC 0.020 H Nucleated RBC % (auto) 0.1 Smear Tech's Comments PT INR APTT Sodium 139 Potassium 5.2 H Chloride 107 Carbon Dioxide 24 Anion Gap 13 BUN 59 H Creatinine 0.68 Estim Creat Clear Calc 116.9 Estimated GFR > 60 POC Glucose Random Glucose 139 H D Lactic Acid Lactic Acid F/U @ 2Hr 3.2 H* Lactic Acid F/U @ 4Hr Calcium 7.9 L D Phosphorus 3.9 Magnesium 1.9 Total Bilirubin Direct Bilirubin AST ALT Alkaline Phosphatase Troponin I High Sens B-Natriuretic Peptide Total Protein Albumin Lipase TSH Urine Color Urine Appearance Urine pH Ur Specific [place] Urine Protein Urine Glucose (UA) Urine Ketones Urine Blood Urine Nitrite Ur Leukocyte Esterase Stool Occult Blood COVID-19 (SHANICE) COVID-19 Clin Com Blood Type Antibody Screen Crossmatch 11/18/21 11/18/21 11/18/21 21:24 21:24 21:27 WBC RBC Hgb Hct MCV MCH MCHC RDW Plt Count MPV Immature Gran % (Auto) Neut % (Auto) Lymph % (Auto) [place] % (Auto) Eos % (Auto) Baso % (Auto) Lymph # (Auto) [place] # (Auto) Eos # (Auto) Baso # (Auto) Abs Immat Gran (auto) Absolute Neuts (auto) Absolute Nucleated RBC Nucleated RBC % (auto) Smear Tech's Comments PT INR APTT Sodium Potassium Chloride Carbon Dioxide Anion Gap BUN Creatinine Estim Creat Clear Calc Estimated GFR POC Glucose 128 H Random Glucose Lactic Acid Lactic Acid F/U @ 2Hr Lactic Acid F/U @ 4Hr 3.4 H* Calcium Phosphorus Magnesium Total Bilirubin Direct Bilirubin AST ALT Alkaline Phosphatase Troponin I High Sens B-Natriuretic Peptide 37 Total Protein Albumin Lipase TSH Urine Color Urine Appearance Urine pH Ur Specific [place] Urine Protein Urine Glucose (UA) Urine Ketones Urine Blood Urine Nitrite Ur Leukocyte Esterase Stool Occult Blood COVID-19 (SHANICE) COVID-19 Clin Com Blood Type Antibody Screen Crossmatch 11/19/21 11/19/21 11/19/21 01:03 01:03 02:54 WBC RBC Hgb 7.6 L D Hct 22.4 L D MCV MCH MCHC RDW Plt Count MPV Immature Gran % (Auto) Neut % (Auto) Lymph % (Auto) [place] % (Auto) Eos % (Auto) Baso % (Auto) Lymph # (Auto) [place] # (Auto) Eos # (Auto) Baso # (Auto) Abs Immat Gran (auto) Absolute Neuts (auto) Absolute Nucleated RBC Nucleated RBC % (auto) Smear Tech's Comments PT INR APTT Sodium Potassium Chloride Carbon Dioxide Anion Gap BUN Creatinine Estim Creat Clear Calc Estimated GFR POC Glucose 123 H Random Glucose Lactic Acid 2.4 H* Lactic Acid F/U @ 2Hr Lactic Acid F/U @ 4Hr Calcium Phosphorus Magnesium Total Bilirubin Direct Bilirubin AST ALT Alkaline Phosphatase Troponin I High Sens B-Natriuretic Peptide Total Protein Albumin Lipase TSH Urine Color Urine Appearance Urine pH Ur Specific [place] Urine Protein Urine Glucose (UA) Urine Ketones Urine Blood Urine Nitrite Ur Leukocyte Esterase Stool Occult Blood COVID-19 (SHANICE) COVID-19 Clin [facility] Blood Type Antibody Screen Crossmatch 11/19/21 11/19/21 11/19/21 05:22 05:22 05:22 WBC 18.1 H RBC 2.43 L D Hgb 7.5 L Hct 22.4 L MCV 92.2 MCH 30.9 MCHC 33.5 RDW 17.2 H Plt Count 137 L MPV 11.4 Immature Gran % (Auto) 1.8 H Neut % (Auto) 83.5 H Lymph % (Auto) 8.9 L [place] % (Auto) 5.6 Eos % (Auto) 0.0 Baso % (Auto) 0.2 Lymph # (Auto) 1.6 [place] # (Auto) 1.0 Eos # (Auto) 0.0 Baso # (Auto) 0.0 Abs Immat Gran (auto) 0.33 H Absolute Neuts (auto) 15.1 H Absolute Nucleated RBC 0.020 H Nucleated RBC % (auto) 0.1 Smear Tech's Comments PT INR APTT Sodium 140 Potassium 4.7 Chloride 108 Carbon Dioxide 25 Anion Gap 12 BUN 52 H Creatinine 0.68 Estim Creat Clear Calc 116.9 Estimated GFR > 60 POC Glucose Random Glucose 154 H Lactic Acid 2.4 H* Lactic Acid F/U @ 2Hr Lactic Acid F/U @ 4Hr Calcium 8.6 D Phosphorus Magnesium Total Bilirubin 0.5 Direct Bilirubin AST 17 ALT 15 Alkaline Phosphatase 25 L D Troponin I High Sens B-Natriuretic Peptide Total Protein 4.7 L D Albumin 3.2 L Lipase TSH Urine Color Urine Appearance Urine pH Ur Specific [place] Urine Protein Urine Glucose (UA) Urine Ketones Urine Blood Urine Nitrite Ur Leukocyte Esterase Stool Occult Blood COVID-19 (SHANICE) COVID-19 [employer] Blood Type Antibody Screen Crossmatch 11/19/21 08:46 WBC RBC Hgb 7.6 L Hct 22.5 L MCV MCH MCHC RDW Plt Count MPV Immature Gran % (Auto) Neut % (Auto) Lymph % (Auto) [place] % (Auto) Eos % (Auto) Baso % (Auto) Lymph # (Auto) [place] # (Auto) Eos # (Auto) Baso # (Auto) Abs Immat Gran (auto) Absolute Neuts (auto) Absolute Nucleated RBC Nucleated RBC % (auto) Smear Tech's Comments PT INR APTT Sodium Potassium Chloride Carbon Dioxide Anion Gap BUN Creatinine Estim Creat Clear Calc Estimated GFR POC Glucose Random Glucose Lactic Acid Lactic Acid F/U @ 2Hr Lactic Acid F/U @ 4Hr Calcium Phosphorus Magnesium Total Bilirubin Direct Bilirubin AST ALT Alkaline Phosphatase Troponin I High Sens B-Natriuretic Peptide Total Protein Albumin Lipase TSH Urine Color Urine Appearance Urine pH Ur Specific [place] Urine Protein Urine Glucose (UA) Urine Ketones Urine Blood Urine Nitrite Ur Leukocyte Esterase Stool Occult Blood COVID-19 (SHANICE) COVID-19 [employer] [facility] Blood Type Antibody Screen Crossmatch Airway Mallampati Class: II TM Dist: >3cm Neck ROM: Limited Loose/Missing/Broken Teeth: Yes, Upper and Lower Heart: RRR Lungs: CTA Assessment and Plan Assessment Anesthesia Assessment: Anesthesia Plan Discussed and Chart Reviewed Final Anesthetic Review History of Problems with Anesthesia: No NPO: Yes ASA Class: IV Final Preanesthetic Review: Meds/Allgs Chart Reviewed, Consent Obtained/Reviewed and Anes Risks/Benef Reviewed Patient Risk: High Procedure Risk: Intermediate Anesthetic Plan Anesthetic Plan: MAC: Disposition: Inp. Admit - ICU
--- NOTE | 2021-11-19 14:10 | PM.OP ---
Brief Operative Note Date of Service: 11/19/21 Pre-op diagnosis: ugi bleed Post-op diagnosis: same (gastric ulcer) Procedure: egd control of hemorrhage Surgeon: London Leal Anesthesia: MAC Was an Voice Pathologist used for this Procedure?: No Estimated blood loss (mL): 2 Pathology: none sent Condition: stable Disposition: ICU
--- NOTE | 2021-11-19 14:11 | PM.EVENT ---
Event Note Date of Service: 11/19/21 Event Note: EGD note dictated 12mm ulcer with visible vessel and no active bleeding identified on ant wall of gastric body 5 cm below egj treated with epi and cauterized with gold probe. rec iv ppi no nsaids clear liquids ok, advance as tolerated.
[2021-11-19] MEDS: Lactated Ringers 500 ML IV (14:54)
[2021-11-19] MEDS: Magnesium Sulfate/D5W 1 GM/100 ML PIGGYBACK IV (17:11)
--- NOTE | 2021-11-19 18:32 | PC.NURSE ---
MAP maintaining <65 - Dr Stemp notified. 500cc LR ordered and administered over an hour. MAP continuing to maintaining <60 - Dr Stemp notified and no new orders at this time. Patient drowsy but arousable, A&O x3, all other vitals stable at this time.
[2021-11-19 19:24] LABS: Hematocrit 23.2 % (42.0-52.0); Hemoglobin 7.9 g/dl (14.0-18.0)
[2021-11-20] VITALS (7 sets, daily range): BP systolic 91–103; BP diastolic 50–55; PULSE 92–102; RESP 17–18; TEMP 36.5–38.3; O2SAT 95–98; BMI 24.6
[2021-11-20] MEDS: Pantoprazole Sodium 80 MG in 0.9 % Sodium Chloride 80 ML 10 MG IV ×2 (01:06→14:05)
--- NOTE | 2021-11-20 01:33 | OP_ITS ---
SURGEON: London Leal MD INDICATIONS: Upper GI bleeding. PREOPERATIVE DIAGNOSIS: POSTOPERATIVE DIAGNOSIS: PROCEDURE PERFORMED: ESTIMATED BLOOD LOSS: COMPLICATIONS: ANESTHESIA: ASSISTANTS: SPECIMENS: PROCEDURE: Upper endoscopy with control of hemorrhage. MEDICATIONS: Monitored anesthesia care. DESCRIPTION OF PROCEDURE: History and physical were performed. The risks and benefits of the procedure were explained to the patient. Informed consent was obtained. The patient was placed in the left lateral decubitus position. The Olympus video gastroscope was introduced into the esophagus, stomach, and duodenum. Examination was performed. The scope was removed. He tolerated the procedure well was returned to recovery in stable condition. FINDINGS: Esophagus. The esophagus was normal. The changes of glycogenic acanthosis were seen again. Stomach. The stomach showed no active bleeding. There was some old blood in the stomach. The large clot that was identified yesterday had been digested. On the anterior wall high up on the body was a 10-12 mm ulcer with a visible vessel that was not bleeding. No other ulcers were seen. The previously identified gastric polyps were again seen. There was no active bleeding. Duodenum, the bulb and second portion were normal with polypoid changes as previously. No bleeding was identified in the bulb and second portion. Bile was present in the second portion. The ulcer was injected with a total of 4 cc of epinephrine (1:10,000) with good mucosal blanching at the margins and around the ulcer. The gold probe was used to cauterize the visible vessel with no active bleeding at the termination of the procedure. The area was watched for 5 minutes and no bleeding occurred. IMPRESSION: Gastric ulcer, treated. RECOMMENDATION: 1. Start clear liquid diet. 2. Continue IV proton pump inhibitor. 3. Followup endoscopy in 8-12 weeks to assess for healing of ulcer. MD ELLYN Andersen/LETICIA / [phone]
[2021-11-20 05:34] LABS: Hemoglobin 7.9 g/dl (14.0-18.0); PLT CLUMP 1; Red Cell Distribution Width 17.2 % (11.0-16.0)
[2021-11-20] MEDS: Levothyroxine Sodium 150 MCG TABLET PO (05:34)
[2021-11-20 05:36] LABS: Hematocrit 23.6 % (42.0-52.0); Mean Corpuscular HGB Conc 33.5 g/dl (31.0-36.0); Mean Corpuscular Volume 92.5 fL (80.0-98.0); Mean Platelet Volume 10.7 fL (9.4-12.4); NRBC Pct Auto 0.8 /100WBC (0.0-0.2); Red Blood Count 2.55 X10*6/uL (4.60-5.80)
[2021-11-20 05:44] LABS: Lactic Acid 1.4 mmol/L (0.5-2.0)
[2021-11-20 05:49] LABS: Anion Gap 12 (12-20); Blood Urea Nitrogen 26 mg/dL (9-16); Calcium 8.2 mg/dL (8.4-10.2); Carbon Dioxide 25 mmol/L (22-29); Chloride 106 mmol/L (96-108); Estimated Glomerular Filt Rate > 60; Glucose Random 103 mg/dL (60-115); Magnesium 2.2 mg/dL (1.6-2.6); Phosphorus 3.3 mg/dL (2.7-4.5); Sodium 139 mmol/L (135-145)
[2021-11-20 06:02] LABS: Platelet Count 121 X10*3/uL (160-400); White Blood Count 17.3 X10*3/uL (4.8-10.8)
--- NOTE | 2021-11-20 08:58 | P.PNIM_ITS ---
Subjective Subjective Date of Service: 11/20/21 Interval History: Seen in f/u for acute GIB, acute blood loss anemai, Donna Inteval history: He was admitted through ICU due to signficant bleed, low BP, C marrow crit dropped from 43 to 22, he has been transfused 2 units of RBC. EGD on 11/19 showed a 12 mm ulcer and visible vessel but there was no active bleed Review of Systems No shortness of breath No GI bleeding No dizziness Physical Exam Vital Signs: Vital Signs: Last Vital Signs Temp 99.1 F 11/20/21 08:00 Pulse 92 11/20/21 08:00 Resp 17 11/20/21 08:00 BP 95/52 L 11/20/21 08:00 Pulse Ox 95 11/20/21 08:00 BMI result Body Mass Index 24.6 Const: Other: General: AO X 3, no acute distress Resp: CTA bilateral CVS: S1,S2,RRR GI: +BS, NT, no distention Skin: No rash Neuro: motor grossly intact Psych: appropriate affect Objective Data Active Medications Pantoprazole Sodium 80 mg/ (Sodium Chloride) 100 mls @ 10 mls/hr IV .Q10H [facility] Last Admin: 11/20/21 01:06 Dose: 8 mg/hr, 10 mls/hr Documented by: OKSANA Levothyroxine Sodium (Levothyroxine Sodium 150 Mcg Tablet) 300 mcg PO Russell@[id number] [facility] Levothyroxine Sodium (Levothyroxine Sodium 150 Mcg Tablet) 150 mcg PO [id number] [facility] Last Admin: 11/20/21 05:34 Dose: 150 mcg Documented by: OKSANA Pt Own Med( Ivabradine [Corlanor ] 5 Mg Tablet) 5 each PO BID [facility] Last Admin: 11/19/21 20:46 Dose: 5 each Documented by: CHERELLE Ondansetron HCl (Ondansetron Hcl 4 Mg/2 Ml Vial) 4 mg IVPUSH Q6H PRN PRN Reason: Nausea Pharmacy Consult (Consult Rx Perform Med Rec) 1 each MISCELLANE ONCE PRN PRN Reason: Consult order Labs CBC & Chem 7: 11/20/21 05:05 11/20/21 05:05 Labs: Laboratory Results - last 24 hr 11/18/21 11/20/21 11/20/21 16:55 05:05 05:05 MCV 92.5 MCH 31.0 MCHC 33.5 RDW 17.2 H Plt Count 121 L MPV 10.7 Absolute Nucleated RBC 0.130 H Nucleated RBC % (auto) 0.8 H Anion Gap 12 Estim Creat Clear Calc 112.0 Estimated GFR > 60 Random Glucose 103 Lactic Acid Calcium 8.2 L Phosphorus 3.3 Magnesium 2.2 Blood Type A Positive Antibody Screen NEGATIVE Crossmatch See Detail 11/20/21 05:05 MCV MCH MCHC RDW Plt Count MPV Absolute Nucleated RBC Nucleated RBC % (auto) Anion Gap Estim Creat Clear Calc Estimated GFR Random Glucose Lactic Acid 1.4 Calcium Phosphorus Magnesium Blood Type Antibody Screen Crossmatch Microbiology Microbiology Results: Microbiology 11/18/21 15:49 Blood Culture - Preliminary Blood - Venous No growth after 24 hours. 11/18/21 15:42 Blood Culture - Preliminary Blood - Venous No growth after 24 hours. Assessment and Plan (1) Acute upper GI bleed: Status: Acute (2) Acute ITP: Status: Acute Plan 60-year-old male with a past medical history of anemia, severe aortic stenosis, history of bioprosthetic heart valve, s/p TAVR, LBBB, CHF status post AICD, hypothyroidism, history of complete heart block, history of Hodgkin's lymphoma, Val's syndrome, history ITP, multinodular thyroid, history of remote pulmonary embolism-presently not anticoagulated. He was admitted through ICU on 11/18 with upper GI bleeding, acute blood loss anemia complicated by scohck. Has required 2 units of RBCs, EGD 11/19 showed 12 mm gastric ulcer. Upper GI bleeding, acute blood loss anemia--s/p 2 units, Hematocrit has dropped from 43 to 22 and presently stable with Hct at 23 -Continue IV Protonix drip, keep an eye Hypotension--he normally runs a low systolic 90s to 100s Chronic HFpEF Status post AICD.? no acute failure, hold home Lasix. History of hypothyroidism Continue home levothyroxine h/o ITP--Platelet is seadily dropping 210 on 11/18 to 121 today, keep an eye on it, hold Prednsone given anemia, gastric ulcer and disucss with hematology DVT prophylaxis...out of bed and ambulation, compression device. Need for inaptient: Acute upper GIB with signficant blood loss and being treated with IV PPI and close monitoring for possible rebleed and hemodynamic instability Quality Stroke Does the patient have a stroke diagnosis?: No VTE Prior VTE?: No VTE Risk Level:: Medical - low VTE Device Contraindication: Treatment Not Indicated VTE Drug Contraindication: Treatment Not Indicated
[2021-11-20] MEDS: Acetaminophen 325 MG TABLET 650 MG PO (21:24)
[2021-11-21] VITALS (11 sets, daily range): BP systolic 82–113; BP diastolic 48–56; PULSE 85–99; RESP 16–24; TEMP 36.8–37.9; O2SAT 94–100
--- NOTE | 2021-11-21 | ECG_ITS ---
Test Reason : cp Blood Pressure : / mmHG Vent. Rate : 097 BPM Atrial Rate : 097 BPM P-R Int : 144 ms QRS Dur : 146 ms QT Int : 398 ms P-R-T Axes : 053 217 043 degrees QTc Int : 505 ms Atrial-sensed ventricular-paced rhythm Abnormal ECG When compared with ECG of 18-NOV-2021 15:12, Vent. rate has increased BY 4 BPM Referred By: Odilon Mayorga Electronically Signed By:IVANNA ORDONEZ
[2021-11-21] MEDS: Pantoprazole Sodium 80 MG in 0.9 % Sodium Chloride 80 ML 10 MG IV ×3 (00:32→22:59)
[2021-11-21] MEDS: Levothyroxine Sodium 150 MCG TABLET 300 MCG PO (05:34)
[2021-11-21 06:59] LABS: Hematocrit 24.5 % (42.0-52.0); Hemoglobin 7.9 g/dl (14.0-18.0); Mean Corpuscular HGB Conc 32.2 g/dl (31.0-36.0); Mean Corpuscular Hemoglobin 31.1 pg (27.0-33.0); Mean Corpuscular Volume 96.5 fL (80.0-98.0); Mean Platelet Volume 11.4 fL (9.4-12.4); Platelet Count 103 X10*3/uL (160-400); Red Blood Count 2.54 X10*6/uL (4.60-5.80); White Blood Count 13.3 X10*3/uL (4.8-10.8)
[2021-11-21 07:04] LABS: NRBC Pct Auto 4.5 /100WBC (0.0-0.2)
--- NOTE | 2021-11-21 09:16 | P.PNIM_ITS ---
Subjective Subjective Date of Service: 11/21/21 Interval History: Seen in f/u for acute GIB, acute blood loss anemai, Donna Inteval history: reports no bleeding, H/H slightly better Review of Systems No shortness of breath No GI bleeding No dizziness Physical Exam Vital Signs: Vital Signs: Last Vital Signs Temp 100.1 F 11/21/21 08:00 Pulse 88 11/21/21 08:00 Resp 18 11/21/21 08:00 BP 90/50 L 11/21/21 08:00 Pulse Ox 97 11/21/21 08:00 BMI result Body Mass Index 24.6 Const: Other: General: AO X 3, no acute distress Resp: CTA bilateral CVS: S1,S2,RRR GI: +BS, NT, no distention Skin: No rash Neuro: motor grossly intact Psych: appropriate affect Objective Data Active Medications Acetaminophen (Acetaminophen 325 Mg Tablet) 650 mg PO Q6H PRN PRN Reason: pain/fever. Last Admin: 11/20/21 21:24 Dose: 650 mg Documented by: NANNETTE Pantoprazole Sodium 80 mg/ (Sodium Chloride) 100 mls @ 10 mls/hr IV .Q10H [facility] Stop: 11/21/21 10:30 Last Admin: 11/21/21 00:32 Dose: 8 mg/hr, 10 mls/hr Documented by: NANNETTE Pantoprazole Sodium 80 mg/ (Sodium Chloride) 100 mls @ 10 mls/hr IV .Q10H [facility] Levothyroxine Sodium (Levothyroxine Sodium 150 Mcg Tablet) 300 mcg PO Russell@0630 [facility] Last Admin: 11/21/21 05:34 Dose: 300 mcg Documented by: NANNETTE Levothyroxine Sodium (Levothyroxine Sodium 150 Mcg Tablet) 150 mcg PO MoTuWeThFrSa@0630 [facility] Last Admin: 11/20/21 05:34 Dose: 150 mcg Documented by: ODRISM Pt Own Med( Ivabradine [Corlanor ] 5 Mg Tablet) 5 each PO BID [facility] Last Admin: 11/20/21 21:24 Dose: 5 each Documented by: NANNETTE Ondansetron HCl (Ondansetron Hcl 4 Mg/2 Ml Vial) 4 mg IVPUSH Q6H PRN PRN Reason: Nausea Pharmacy Consult (Consult Rx Perform Med Rec) 1 each MISCELLANE ONCE PRN PRN Reason: Consult order Labs CBC & Chem 7: 11/21/21 05:56 11/20/21 05:05 Labs: Laboratory Results - last 24 hr 11/21/21 05:56 MCV 96.5 MCH 31.1 MCHC 32.2 RDW 17.0 H Plt Count 103 L MPV 11.4 Absolute Nucleated RBC 0.600 H Nucleated RBC % (auto) 4.5 H Microbiology Microbiology Results: Microbiology 11/18/21 15:49 Blood Culture - Preliminary Blood - Venous No growth after 48 hours. 11/18/21 15:42 Blood Culture - Preliminary Blood - Venous No growth after 48 hours. Assessment and Plan (1) Acute upper GI bleed: Status: Acute (2) Acute ITP: Status: Acute Plan 60-year-old male with a past medical history of anemia, severe aortic stenosis, history of bioprosthetic heart valve, s/p TAVR, LBBB, CHF status post AICD, hypothyroidism, history of complete heart block, history of Hodgkin's lymphoma, [place]'s syndrome, history ITP, multinodular thyroid, history of remote pulmonary embolism-presently not anticoagulated. He was admitted through ICU on 11/18 with upper GI bleeding, acute blood loss anemia complicated by scohck. Has required 2 units of RBCs, EGD 11/19 showed 12 mm gastric ulcer. Upper GI bleeding, acute blood loss anemia--s/p 2 units, Hematocrit has dropped from 43 to 22 and presently stable with Hct at 23 -DC Protonix drip and changed to IV push 40 bid. -follow hemoglobin Hypotension--he normally runs a low systolic 90s to 100s, assymptomatic continue monitoring Chronic HFpEF Status post AICD.? no acute failure, hold home Lasix. History of hypothyroidism Continue home levothyroxine h/o ITP--Platelet is seadily dropping 210 on 11/18 to 107 today, keep an eye on i t, hold Prednsone given anemia, gastric ulcer and disucss with hematology DVT prophylaxis...out of bed and ambulation, compression device. Need for inaptient: Acute upper GIB with signficant blood loss and being treated with IV PPI and close monitoring for possible rebleed and hemodynamic instabi lity Quality Stroke Does the patient have a stroke diagnosis?: No VTE Prior VTE?: No VTE Risk Level:: Medical - low VTE Device Contraindication: Treatment Not Indicated VTE Drug Contraindication: Treatment Not Indicated
--- NOTE | 2021-11-21 20:57 | PM.EVENT ---
Event Note Date of Service: 11/22/21 Event Note: Chest pain: Patient had an episode of chest pain located on the right side of the chest, also complains of right arm numbness; It EKG unchanged from prior. Will obtain troponins. Unable to give nitroglycerin or morphine given blood pressure on the soft side. Neurological exam was normal. CT head also ordered.
[2021-11-21 21:10] LABS: Troponin-I High Sensitivity 9.8 ng/L (<3.5-35.0)
[2021-11-21] MEDS: HYDROmorphone HCl 0.5 MG/0.5 ML SYRINGE IVPUSH (21:11)
[2021-11-21 23:42] LABS: Troponin-I High Sensitivity 10.1 ng/L (<3.5-35.0)
--- NOTE | 2021-11-21 23:42 | PC.NURSE ---
2037 patient reported chest pain in right chest radiating to right arm, states right arm and leg felt heavy. Patient had weaker right leg and equal hand grasps. Delroy-briks. NO sob , diaphoresis, n/v, noted. BP 82/52 hr 94 Sao2 94% RA, placed pt on O2 at 2 L NC Sao2 increased to 98%. Lungs with exp wheezes/ course.RR 24. Dr Mayorga and Ely BUSTILLO supervisor slashing department notified. Requested Dr Mayorga evaluate patient. Patient seen by MD- Ekg, CT head and troponins ordered. Pt transported to CT on Tele by Ely BUSTILLO supervisor slashing department. Also reported to MD pt h/h 7.9/24.5. Dr Mayorga ordered dilaudid .5mg given ivp. Pt reported pain1/[address] head. At 2199 pt reported no pain or arm numbness.
[2021-11-22] VITALS (9 sets, daily range): BP systolic 82–108; BP diastolic 46–60; PULSE 88–103; RESP 18; TEMP 36.5–39.6; O2SAT 93–97
[2021-11-22] MEDS: Levothyroxine Sodium 150 MCG TABLET PO (06:02)
[2021-11-22 07:40] LABS: Hematocrit 24.1 % (42.0-52.0); Hemoglobin 7.9 g/dl (14.0-18.0); Mean Corpuscular HGB Conc 32.8 g/dl (31.0-36.0); Mean Corpuscular Hemoglobin 31.1 pg (27.0-33.0); Mean Corpuscular Volume 94.9 fL (80.0-98.0); Mean Platelet Volume 11.3 fL (9.4-12.4); Platelet Count 107 X10*3/uL (160-400); Red Blood Count 2.54 X10*6/uL (4.60-5.80); Red Cell Distribution Width 17.1 % (11.0-16.0); White Blood Count 12.8 X10*3/uL (4.8-10.8)
--- NOTE | 2021-11-22 08:29 | PC.NURSE ---
[employer]ATION[employer] obtained BP 88/50 patient is asymptomatic. Patient states his baseline is upper 8's and low 90's systolic. He is currently eating and requested I come back in a few min to recheck BP.
--- NOTE | 2021-11-22 08:42 | HO.PM.IMPN ---
Subjective Subjective Date of Service: 11/22/21 Interval History: Seen in f/u for acute GIB, acute blood loss anemai, Donna Inteval history: had some right sided chest discomfort last night, negative trop, H/H remains stable, BP on low side but asssymptomatic. No sings of bleeding Review of Systems No shortness of breath No GI bleeding No dizziness Physical Exam Vital Signs: Vital Signs: Last Vital Signs Temp 100.2 F 11/22/21 08:00 Pulse 88 11/22/21 08:00 Resp 18 11/22/21 08:00 BP 88/50 L 11/22/21 08:00 Pulse Ox 97 11/22/21 08:00 BMI result Body Mass Index 24.6 Const: Other: General: AO X 3, no acute distress Resp: CTA bilateral CVS: S1,S2,RRR GI: +BS, NT, no distention Skin: No rash Neuro: motor grossly intact Psych: appropriate affect Objective Data Active Medications Acetaminophen (Acetaminophen 325 Mg Tablet) 650 mg PO Q6H PRN PRN Reason: pain/fever. Last Admin: 11/20/21 21:24 Dose: 650 mg Documented by: NANNETTE Furosemide (Furosemide 40 Mg Tablet) 40 mg PO BID@0900,1800 [facility]; Protocol Levothyroxine Sodium (Levothyroxine Sodium 150 Mcg Tablet) 300 mcg PO Russell@0630 [facility] Last Admin: 11/21/21 05:34 Dose: 300 mcg Documented by: NANNETTE Levothyroxine Sodium (Levothyroxine Sodium 150 Mcg Tablet) 150 mcg PO MoTuWeThFrSa@0630 [facility] Last Admin: 11/22/21 06:02 Dose: 150 mcg Documented by: MARYAM Nitroglycerin (Nitroglycerin 0.4 Mg Tab.Subl) 0.4 mg SUBLINGUAL Q5MX3 PRN PRN Reason: Chest Pain Pt Own Med( Ivabradine [Corlanor ] 5 Mg Tablet) 5 each PO BID [facility] Last Admin: 11/21/21 22:59 Dose: 5 each Documented by: MARYLU Omeprazole (Omeprazole 40 Mg Capsule.) 40 mg PO BID@0630,1630 [facility] Ondansetron HCl (Ondansetron Hcl 4 Mg/2 Ml Vial) 4 mg IVPUSH Q6H PRN PRN Reason: Nausea Pharmacy Consult (Consult Rx Perform Med Rec) 1 each MISCELLANE ONCE PRN PRN Reason: Consult order Labs CBC & Chem 7: 11/22/21 07:24 11/20/21 05:05 Labs: Laboratory Results - last 24 hr 11/21/21 11/21/21 11/22/21 20:30 23:13 07:24 MCV 94.9 MCH 31.1 MCHC 32.8 RDW 17.1 H Plt Count 107 L MPV 11.3 Absolute Nucleated RBC 1.020 H Nucleated RBC % (auto) 8.0 H Troponin I High Sens 9.8 10.1 Assessment and Plan (1) Acute upper GI bleed: Status: Acute (2) Anemia: Status: Acute Plan 60-year-old male with a past medical history of anemia, severe aortic stenosis, history of bioprosthetic heart valve, s/p TAVR, LBBB, CHF status post AICD, hypothyroidism, history of complete heart block, history of Hodgkin's lymphoma, [place]'s syndrome, history ITP, multinodular thyroid, history of remote pulmonary embolism-presently not anticoagulated. He was admitted through ICU on 11/18 with upper GI bleeding, acute blood loss anemia complicated by scohck. Has required 2 units of RBCs, EGD 11/19 showed 12 mm gastric ulcer. Upper GI bleeding, acute blood loss anemia--s/p 2 units, Hematocrit has dropped from 43 to 22 and presently stable with Hct at 23 -DC Protonix drip and add PRilosec 40 bid PO -follow hemoglobin Hypotension--he normally runs a low systolic 90s to 100s, assymptomatic continue monitoring Chronic HFpEF Status post AICD.? no acute failure, hold home Lasix. History of hypothyroidism Continue home levothyroxine h/o ITP--Platelet is seadily dropping 210 on 11/18 to 107 today essentially unchnaged from yesterday, keep an eye on it, hold Prednsone given anemia, gastric ulcer and disucss with hematology DVT prophylaxis...out of bed and ambulation, compression device. Was out of bed at least 4 times yesterday H/o heart failure, he started to feel congested, not able to lay flat.. restart home Lasix Need for inaptient: Acute upper GIB with signficant blood loss and being treated with IV PPI and close monitoring for possible rebleed and hemodynamic instability--BP is presently 88 and need closer monitoring Quality Stroke Does the patient have a stroke diagnosis?: No VTE Prior VTE?: No VTE Risk Level:: Medical - low VTE Device Contraindication: Treatment Not Indicated VTE Drug Contraindication: Treatment Not Indicated
[2021-11-22] MEDS: Omeprazole 40 MG CAPSULE.DR PO ×2 (09:52→18:17)
[2021-11-22] MEDS: Furosemide 40 MG TABLET PO ×2 (09:53→18:17)
--- NOTE | 2021-11-22 13:15 | MHC.CLN ---
NUTRITION REPORTS THAT EATING WELL AND WOULD LIKE ENSURE BID. TAKES AT HOME USUALLY AT LUNCH AND SUPPER. ADDED ENSURE BID TO PROVIDE ADDITIONAL 700 KCAL, 40 G PROTEIN.
--- NOTE | 2021-11-22 13:27 | MHC.CM.PN ---
NURSE INBOUND SALES ADVISOR NOTE ELECTRONIC MEDICQL RECORD REVIEWED STEVEN WITH CASE DISUCSSED WITH STAFF NURSE AND HOSPITALIST . PATIENT REQUIRES CLOSE MONITORING OF ALL LABS AND VITAL SIGNS CONTINUED TO IV PPI DISCHARGE PLAN HOME WITH WILL ACCEPT [facility] IF NEEDED TRANSPORTATION PCP TO FOLLOW UP
[2021-11-22] MEDS: Acetaminophen 325 MG TABLET 650 MG PO (21:26)
--- NOTE | 2021-11-22 22:44 | PM.EVENT ---
Event Note Date of Service: 11/22/21 Event Note: fever: Patient developed a fever of 103 F Reports dry cough Also mentions headache exam benign; neck is supple; no meningeal signs; will obtain stat urinalysis, blood cultures, chest x-ray, CBC,BMP, lactic acid empirically started IV Vanc and zosyn BP on soft side: 80s/40s; given small fluids bolus (Will hold of 30cc/kg fluid bolus given risk of Fluid overload due to CHF history.) ID consult
[2021-11-22] MEDS: oxyCODONE HCl Immed Release 5 MG TABLET 10 MG PO (22:53)
[2021-11-22 23:22] LABS: Appearance Urine CLEAR; Color Urine YELLOW; Glucose Urine UA NEG (NEG); Leukocyte Esterase Urine NEG (NEG); Nitrite Urine NEG (NEG); PH 5.5 (5.0-8.0); Specific Gravity - Urine 1.025 (1.005-1.025); Urine Blood NEG (NEG); Urine Ketones NEG (NEG); Urine Protein NEG (NEG-TRACE)
[2021-11-22] MEDS: Piperacillin Sodium/Tazobactam 3.375 GM in 0.9 % Sodium Chloride 50 ML IV (23:41)
[2021-11-22] MEDS: 0.9 % Sodium Chloride 500 ML IV (23:41)
[2021-11-22 23:59] LABS: MANUAL DIFF FLAG NO
[2021-11-23] VITALS (8 sets, daily range): BP systolic 88–101; BP diastolic 51–58; PULSE 86–102; RESP 14–18; TEMP 36.9–39.5; O2SAT 91–96; BMI 24.0
[2021-11-23 00:01] LABS: Basophils Absolute Auto 0.1 X10*3/uL (0.0-0.2); Basophils Percent Auto 0.4 % (0-2); Eosinophils Absolute Auto 0.3 X10*3/uL (0.0-0.4); Eosinophils Percent Auto 2.1 % (0-4); Hematocrit 23.6 % (42.0-52.0); Hemoglobin 7.9 g/dl (14.0-18.0); Imm Gran Abs Auto 0.16 X10*3/uL (0.00-0.03); Imm Gran Pct Auto 1.2 % (0.0-0.4); Lymphocytes Absolute Auto 1.5 X10*3/uL (1.2-4.9); Lymphocytes Percent Auto 11.2 % (20-40); Mean Corpuscular HGB Conc 33.5 g/dl (31.0-36.0); Mean Corpuscular Hemoglobin 31.2 pg (27.0-33.0); Mean Corpuscular Volume 93.3 fL (80.0-98.0); Mean Platelet Volume 10.2 fL (9.4-12.4); Monocytes Absolute Auto 1.1 X10*3/uL (0.1-1.2); Monocytes Percent Auto 8.1 % (2-11); Neutrophils Absolute Auto 10.2 x10*3/uL (2.0-8.3); Platelet Count 113 X10*3/uL (160-400); Red Blood Count 2.53 X10*6/uL (4.60-5.80); Red Cell Distribution Width 16.7 % (11.0-16.0); White Blood Count 13.2 X10*3/uL (4.8-10.8)
[2021-11-23 00:11] LABS: Lactic Acid 0.8 mmol/L (0.5-2.0)
[2021-11-23 00:17] LABS: Anion Gap 11 (12-20); Blood Urea Nitrogen 15 mg/dL (9-16); Calcium 8.1 mg/dL (8.4-10.2); Carbon Dioxide 28 mmol/L (22-29); Chloride 101 mmol/L (96-108); Creatinine Clr Calc Pharmacy 98.1; Estimated Glomerular Filt Rate > 60; Glucose Random 114 mg/dL (60-115); Potassium 3.3 mmol/L (3.3-5.1); Sodium 137 mmol/L (135-145)
[2021-11-23] MEDS: vancomycin HCL 1,000 MG in 0.9 % Sodium Chloride 250 ML 270 MG IV ×2 (00:18→14:18)
[2021-11-23] MEDS: Piperacillin Sodium/Tazobactam 3.375 GM in 0.9 % Sodium Chloride 50 ML IV ×3 (06:04→17:37)
[2021-11-23] MEDS: Omeprazole 40 MG CAPSULE.DR PO ×2 (06:04→15:38)
[2021-11-23] MEDS: Levothyroxine Sodium 150 MCG TABLET PO (06:04)
[2021-11-23] MEDS: Furosemide 40 MG TABLET PO ×2 (08:09→17:38)
[2021-11-23] MEDS: Acetaminophen 325 MG TABLET 650 MG PO ×2 (08:09→19:29)
--- NOTE | 2021-11-23 08:26 | P.PNIM_ITS ---
Subjective Subjective Date of Service: 11/23/21 Interval History: Seen in f/u for acute GIB, acute blood loss anemai, Donna Inteval history: Had a temp of 103 overnight, with cold sweat. CXR show richard pathcy infiltrates, started on Vanco and Zosyn Review of Systems No shortness of breath, some cough No GI bleeding No dizziness Physical Exam Vital Signs: Vital Signs: Last Vital Signs Temp 98.4 F 11/23/21 07:41 Pulse 92 11/23/21 07:41 Resp 17 11/23/21 07:41 BP 96/55 L 11/23/21 07:41 Pulse Ox 94 11/23/21 07:41 BMI result Body Mass Index 24.0 Const: Other: General: AO X 3, no acute distress Resp: CTA bilateral CVS: S1,S2,RRR GI: +BS, NT, no distention Skin: No rash Neuro: motor grossly intact Psych: appropriate affect Objective Data Active Medications Acetaminophen (Acetaminophen 325 Mg Tablet) 650 mg PO Q6H PRN PRN Reason: pain/fever. Last Admin: 11/23/21 08:09 Dose: 650 mg Documented by: XIANG Furosemide (Furosemide 40 Mg Tablet) 40 mg PO BID@0900,1800 [facility]; Protocol Last Admin: 11/23/21 08:09 Dose: 40 mg Documented by: XIANG Vancomycin HCl 1,000 mg/ (Sodium Chloride) 270 mls @ 270 mls/hr IV Q12H [facility] Last Infusion: 11/23/21 01:22 Dose: 0 mls/hr Documented by: PATRIA Piperacillin Sod/Tazobactam (Sod 3.375 gm/ Sodium Chloride) 50 mls @ 100 mls/hr IV Q6H [facility] Last Infusion: 11/23/21 06:43 Dose: 0 mls/hr Documented by: PATRIA Levothyroxine Sodium (Levothyroxine Sodium 150 Mcg Tablet) 300 mcg PO Russell@0630 [facility] Last Admin: 11/21/21 05:34 Dose: 300 mcg Documented by: NANNETTE Levothyroxine Sodium (Levothyroxine Sodium 150 Mcg Tablet) 150 mcg PO MoTuWeThFrSa@0630 [facility] Last Admin: 11/23/21 06:04 Dose: 150 mcg Documented by: PATRIA Nitroglycerin (Nitroglycerin 0.4 Mg Tab.Subl) 0.4 mg SUBLINGUAL Q5MX3 PRN PRN Reason: Chest Pain Pt Own Med( Ivabradine [Corlanor ] 5 Mg Tablet) 1 each PO BID [facility] Last Admin: 11/23/21 08:10 Dose: 1 each Documented by: XIANG Omeprazole (Omeprazole 40 Mg Capsule.Dr) 40 mg PO BID@0630,9490 [facility] Last Admin: 11/23/21 06:04 Dose: 40 mg Documented by: PATRIA Ondansetron HCl (Ondansetron Hcl 4 Mg/2 Ml Vial) 4 mg IVPUSH Q6H PRN PRN Reason: Nausea Pharmacy Consult (Consult Rx Perform Med Rec) 1 each MISCELLANE ONCE PRN PRN Reason: Consult order Pharmacy Consult (Consult Rx Vancomycin Dosing) 1 each MISCELLANE DAILY PRN PRN Reason: Consult order Labs CBC & Chem 7: 11/22/21 23:54 11/22/21 23:54 Labs: Laboratory Results - last 24 hr 11/21/21 11/22/21 11/22/21 05:56 23:02 23:54 MCV 93.3 MCH 31.2 MCHC 33.5 RDW 16.7 H Plt Count 113 L MPV 10.2 Immature Gran % (Auto) 1.2 H Neut % (Auto) 77.0 H Lymph % (Auto) 11.2 L [place] % (Auto) 8.1 Eos % (Auto) 2.1 Baso % (Auto) 0.4 Lymph # (Auto) 1.5 [place] # (Auto) 1.1 Eos # (Auto) 0.3 Baso # (Auto) 0.1 Abs Immat Gran (auto) 0.16 H Absolute Neuts (auto) 10.2 H Absolute Nucleated RBC 1.050 H Nucleated RBC % (auto) 8.0 H Smear Path Review SEE NOTE Anion Gap Estim Creat Clear Calc Estimated GFR Random Glucose Lactic Acid Calcium Urine Color YELLOW Urine Appearance CLEAR Urine pH 5.5 Ur Specific [place] 1.025 Urine Protein NEG Urine Glucose (UA) NEG Urine Ketones NEG Urine Blood NEG Urine Nitrite NEG Ur Leukocyte Esterase NEG 11/22/21 11/22/21 23:54 23:54 MCV MCH MCHC RDW Plt Count MPV Immature Gran % (Auto) Neut % (Auto) Lymph % (Auto) [place] % (Auto) Eos % (Auto) Baso % (Auto) Lymph # (Auto) [place] # (Auto) Eos # (Auto) Baso # (Auto) Abs Immat Gran (auto) Absolute Neuts (auto) Absolute Nucleated RBC Nucleated RBC % (auto) Smear Path Review Anion Gap 11 L Estim Creat Clear Calc 98.1 Estimated GFR > 60 Random Glucose 114 Lactic Acid 0.8 Calcium 8.1 L Urine Color Urine Appearance Urine pH Ur Specific [place] Urine Protein Urine Glucose (UA) Urine Ketones Urine Blood Urine Nitrite Ur Leukocyte Esterase Assessment and Plan (1) Sepsis: Status: Acute (2) Pneumonia: Status: Acute Plan 60-year-old male with a past medical history of anemia, severe aortic stenosis, history of bioprosthetic heart valve, s/p TAVR, LBBB, CHF status post AICD, hypothyroidism, history of complete heart block, history of Hodgkin's lymphoma, [place]'s syndrome, history ITP, multinodular thyroid, history of remote pulmonary embolism-presently not anticoagulated. He was admitted through ICU on 11/18 with upper GI bleeding, acute blood loss anemia complicated by scohck. Has required 2 units of RBCs, EGD 11/19 showed 12 mm gastric ulcer. Sepsis d/t pneumonia, sepsis due to fever and increased WBC, lactic acid negative. Cultures pending -Continue Vanco and Zosyn -Consider ID consult if not improving Upper GI bleeding, acute blood loss anemia--s/p 2 units, Hematocrit has dropped from 43 to 22 and presently stable with Hct at 23 -Was on IV PPI drip, changed to PO, hgb is fairly stable. Hypotension--he normally runs a low systolic 90s to 100s, assymptomatic continue monitoring Chronic HFpEF Status post AICD.? no acute failure, restarted on Lasix History of hypothyroidism Continue home levothyroxine h/o ITP--Platelet is seadily dropping 210 on 11/22 to 113 today essentially unchnaged from yesterday, keep an eye on it, hold Prednsone given anemia, gastric ulcer and disucss with hematology DVT prophylaxis...out of bed and ambulation, compression device. Was out of bed at least 4 times yesterday H/o heart failure, he started to feel congested, not able to lay flat.. restart home Lasix Need for inaptient: Acute upper GIB with signficant blood loss and being treated with IV PPI and close monitoring for possible rebleed and hemodynamic instability--BP is presently 88 and need closer monitoring Quality Stroke Does the patient have a stroke diagnosis?: No VTE Prior VTE?: No VTE Risk Level:: Medical - low VTE Device Contraindication: Treatment Not Indicated VTE Drug Contraindication: Treatment Not Indicated
[2021-11-23 11:07] LABS: Creatinine Clr Calc Pharmacy 100.6; Estimated Glomerular Filt Rate > 60
--- NOTE | 2021-11-23 12:45 | P.CDIC_ITS ---
CDI Concurrent Query Documentation Clarification: PHYSICIAN'S DOCUMENTATION REQUEST Date of Query: 11/23/21 1245 Patient Name: Enrique Monahan Admit Date: 11/18/21 Dear Doctor, A review of the medical record indicates additional documentation may be needed. Please review below and update the documentation accordingly. Clinical Indicators: Current documentation includes a diagnosis of shock. The following clinical indicators were also noted in the record: Risk Factors/Clinical Indicators/Treatments ED: 11/18 - BP dropped into the 80's, volume resuscitated w 1 L normal saline. PN: 11/22 & 11/23 - Admitted on 11/18 for upper GI bleed, acute blood loss anemia, complicated by shock. Transfused 2 units RBC's. BP presently at 88 need close monitoring. Please clarify which of the following is the most likely etiology of the above symptoms and treatment rendered: * Hemorrhagic shock or other * Shock, please indicate specifics to the shock noted if known * Other (please specify) * Unable to determine Use of terms such as suspected, likely, concern for, or probable (associated with a specific diagnosis that is being evaluated, monitored, or treated as if it exists) are acceptable and can be coded in the inpatient setting, when documented at the time of discharge. Thank you, Gerri King [facility], CDIS Extension: [phone] Please use your independent medical judgment in providing your response. THIS QUERY IS PART OF THE PERMANENT MEDICAL RECORD Provider Response: Other Other Diagnosis: hemorrhagic shock
--- NOTE | 2021-11-23 15:18 | MHC.CM.PN ---
nurse department manager ntoe electronic medical record reviewed along with case discussed with staff nurse and hospitalist , met with patient , per hospitalist , documentation and patient he will not be discharged as planned today , he was pretty frustrated but understaid and glad that his temperature lorenzo here and cxr was done and diagnosed now with pna and started on iv abx. dischrge plan initially home no services , department manager to [id number] ot follow for any dischagre needs change transportation family medicare imm 11/19/21
[2021-11-23] MEDS: ondansetron HCL 4 MG/2 ML VIAL IVPUSH (19:38)
[2021-11-23] MEDS: Hydrocortisone Sod Succ/PF 100 MG VIAL 50 MG IVPUSH (21:50)
[2021-11-24] VITALS (7 sets, daily range): BP systolic 82–100; BP diastolic 40–54; PULSE 75–93; RESP 16–18; TEMP 36.4–37.4; O2SAT 94–100
[2021-11-24] MEDS: Piperacillin Sodium/Tazobactam 3.375 GM in 0.9 % Sodium Chloride 50 ML IV ×4 (00:05→18:55)
[2021-11-24] MEDS: vancomycin HCL 1,000 MG in 0.9 % Sodium Chloride 250 ML 270 MG IV (00:43)
[2021-11-24] MEDS: Levothyroxine Sodium 150 MCG TABLET PO (05:49)
[2021-11-24] MEDS: Omeprazole 40 MG CAPSULE.DR PO ×2 (05:49→16:47)
[2021-11-24 06:44] LABS: Creatinine Clr Calc Pharmacy 94.6; Estimated Glomerular Filt Rate > 60
[2021-11-24] MEDS: Furosemide 40 MG TABLET PO (08:41)
--- NOTE | 2021-11-24 08:56 | P.PNIM_ITS ---
Subjective Subjective Date of Service: 11/24/21 Interval History: Seen in f/u for acute GIB, acute blood loss anemai, Donna Inteval history: Had a temp of 103 again overnight , with low BP and concern raised about possible steroid induced AI. He reports no bleeding. Apart from this he states that this is the best he's felt since admission Review of Systems No shortness of breath, some cough No GI bleeding No dizziness Physical Exam Vital Signs: Vital Signs: Last Vital Signs Temp 98.2 F 11/24/21 07:50 Pulse 83 11/24/21 07:50 Resp 17 11/24/21 07:50 BP 90/40 L 11/24/21 07:50 Pulse Ox 97 11/24/21 07:50 BMI result Body Mass Index 24.0 Const: Other: General: AO X 3, no acute distress Resp: CTA bilateral CVS: S1,S2,RRR, no leg edema GI: +BS, NT, no distention Skin: No rash Neuro: motor grossly intact Psych: appropriate affect Objective Data Active Medications Acetaminophen (Acetaminophen 325 Mg Tablet) 650 mg PO Q6H PRN PRN Reason: pain/fever. Last Admin: 11/23/21 19:29 Dose: 650 mg Documented by: PATRIA Furosemide (Furosemide 40 Mg Tablet) 40 mg PO BID@0900,1800 [facility]; Protocol Last Admin: 11/24/21 08:41 Dose: 40 mg Documented by: XIANG Vancomycin HCl 1,000 mg/ (Sodium Chloride) 270 mls @ 270 mls/hr IV Q12H [facility] Last Infusion: 11/24/21 01:45 Dose: 0 mls/hr Documented by: RAMA Piperacillin Sod/Tazobactam (Sod 3.375 gm/ Sodium Chloride) 50 mls @ 100 mls/hr IV Q6H [facility] Last Infusion: 11/24/21 06:29 Dose: 0 mls/hr Documented by: RAMA Levothyroxine Sodium (Levothyroxine Sodium 150 Mcg Tablet) 300 mcg PO Russell@0630 [facility] Last Admin: 11/21/21 05:34 Dose: 300 mcg Documented by: NANNETTE Levothyroxine Sodium (Levothyroxine Sodium 150 Mcg Tablet) 150 mcg PO MoTuWeThFrSa@0630 [facility] Last Admin: 11/24/21 05:49 Dose: 150 mcg Documented by: RAMA Nitroglycerin (Nitroglycerin 0.4 Mg Tab.Subl) 0.4 mg SUBLINGUAL Q5MX3 PRN PRN Reason: Chest Pain Pt Own Med( Ivabradine [Corlanor ] 5 Mg Tablet) 1 each PO BID [facility] Last Admin: 11/24/21 08:41 Dose: 1 each Documented by: XIANG Omeprazole (Omeprazole 40 Mg Capsule.Dr) 40 mg PO BID@0630,1630 [facility] Last Admin: 11/24/21 05:49 Dose: 40 mg Documented by: RAMA Ondansetron HCl (Ondansetron Hcl 4 Mg/2 Ml Vial) 4 mg IVPUSH Q6H PRN PRN Reason: Nausea Last Admin: 11/23/21 19:38 Dose: 4 mg Documented by: PATRIA Pharmacy Consult (Consult Rx Perform Med Rec) 1 each MISCELLANE ONCE PRN PRN Reason: Consult order Pharmacy Consult (Consult Rx Vancomycin Dosing) 1 each MISCELLANE DAILY PRN PRN Reason: Consult order Labs CBC & Chem 7: 11/22/21 23:54 11/24/21 05:45 Labs: Laboratory Results - last 24 hr 11/22/21 11/23/21 11/24/21 23:54 10:38 05:45 Smear Path Review Cancelled Estim Creat Clear Calc 100.6 94.6 Estimated GFR > 60 > 60 Microbiology Microbiology Results: Microbiology 11/22/21 22:54 Blood Culture - Preliminary Blood - Venous No growth after 24 hours. 11/22/21 22:54 Blood Culture - Preliminary Blood - Venous No growth after 24 hours. 11/18/21 15:49 Blood Culture - Final Blood - Venous No growth after 5 days. 11/18/21 15:42 Blood Culture - Final Blood - Venous No growth after 5 days. Assessment and Plan (1) Sepsis: Status: Acute (2) Pneumonia: Status: Acute Plan 60-year-old male with a past medical history of anemia, severe aortic stenosis, history of bioprosthetic heart valve, s/p TAVR, LBBB, CHF status post AICD, hypothyroidism, history of complete heart block, history of Hodgkin's lymphoma, Val's syndrome, history ITP, multinodular thyroid, history of remote pulmonary embolism-presently not anticoagulated. He was admitted through ICU on 11/18 with upper GI bleeding, acute blood loss anemia complicated by scohck. Has required 2 units of RBCs, EGD 11/19 showed 12 mm gastric ulcer. Sepsis d/t pneumonia, sepsis due to fever and increased WBC, lactic acid negative. Cultures pending -Continue Vanco and Zosyn--D2 -ID following Upper GI bleeding, with initial hemorrhagic shock managed in the ICU, acute blood loss anemia--s/p 2 units, Hematocrit has dropped from 43 to 22 and presently stable with Hct at 23 -Was on IV PPI drip, changed to PO, hgb is fairly stable. Hypotension--he normally runs a low systolic 90s to 100s, assymptomatic continue monitoring Chronic HFpEF Status post AICD.? no acute failure, continue home dose Lasix but hold with Low BPs History of hypothyroidism Continue home levothyroxine h/o ITP--Platelet is steadily dropping 210 on admission to to 113 on 11/23. He had been on steroid for ITP but has been on hold due to gastric ulcer Will discuss with hamtology and possibly restart DVT prophylaxis...out of bed and ambulation, compression device. Need for inaptient: Acute upper GIB with signficant blood loss and being treated with IV PPI and close monitoring for possible rebleed and hemodynamic instability--BP is presently 88 to 90 and need closer monitoring Quality Stroke Does the patient have a stroke diagnosis?: No VTE Prior VTE?: No VTE Risk Level:: Medical - low VTE Device Contraindication: Treatment Not Indicated VTE Drug Contraindication: Treatment Not Indicated
[2021-11-24 09:52] LABS: Hematocrit 25.9 % (42.0-52.0); Hemoglobin 8.4 g/dl (14.0-18.0); Mean Corpuscular HGB Conc 32.4 g/dl (31.0-36.0); Mean Corpuscular Volume 95.6 fL (80.0-98.0); Mean Platelet Volume 11.7 fL (9.4-12.4); Platelet Count 202 X10*3/uL (160-400); Red Blood Count 2.71 X10*6/uL (4.60-5.80)
[2021-11-24 09:55] LABS: NRBC Pct Auto 4.1 /100WBC (0.0-0.2)
[2021-11-24 12:05] LABS: Vancomycin Trough 9.7 mcg/mL (10.0-20.0)
[2021-11-24] MEDS: ondansetron HCL 4 MG/2 ML VIAL IVPUSH (12:19)
--- NOTE | 2021-11-24 14:08 | P.CNID_ITS ---
History of Present Illness Data of Consult Service Date: 11/23/21 Requesting physician: [facility] Primary Care Provider: Unknown Physician HPI He presents to hospital with weakness and black diarrhea. He had syncope and vomiting blood. He had UGI bleed with hemorrhagic shock. He has fever to 103 nightly. He was started on Vancomycin and Zosyn,cultures negative blood Review of Systems Review of Systems: Yes all other systems are reviewed and are negative [facility] Past Medical History Medical History (Updated 11/24/21 @ 14:13 by Gabriela Canada MD) Anemia Aortic stenosis, severe Bilateral pulmonary embolism Cardiac resynchronization therapy defibrillator ([employer]FORM [employer]PER[employer]-D) in place Complete heart block Congestive heart failure COVID-19 COVID-19 vaccine series completed [place] syndrome Fever of unknown origin HFrEF (heart failure with reduced ejection fraction) Hodgkins lymphoma Hypocalcemia Hypotension (arterial) Hypothyroidism LBBB (left bundle branch block) Leukocytosis Low TSH level Lung infiltrate Multinodular thyroid Multinodular thyroid NICM (nonischemic cardiomyopathy) Osteoporosis Pacemaker Pulmonary embolism Recurrent pleural effusion on right Rib fracture Rib pain Right hip pain Shortness of breath Sinus tachycardia Thrombocytopenia Vitamin D deficiency Functional capacity: independent ambulation Family History Family History Father Healthy adult male Mother Bladder cancer Family history: reviewed and not pertinent Surgical History Surgical History H/O splenectomy History of appendectomy History of cardiac pacemaker History of esophagogastroduodenoscopy (EGD) History of hip surgery Hx of colonoscopy S/P TAVR (transcatheter aortic valve replacement) Social History Social History Household Members: Spouse and Children Housing: House Are you a primary palliative care physician to a significant other at home: No Do you presently have visiting nurse or other home services: No Alcohol intake: current Alcohol intake frequency: holidays/special occasions only Patient Tobacco Use Status: Never used Tobacco e-Cigarette/Vaping Use: Never Used Second Hand Smoke Exposure: No Use of substances other than those prescribed or required for medical reasons: No Currently Displaying Signs/Symptoms of Drug Intoxication Withdrawal: No Have you been hit, kicked, punched, or otherwise hurt by someone within the past year? If so, by whom?: No Do you feel safe in your current relationship?: Yes Is there a partner from a previous relationship who is making you feel unsafe now?: No Are you made to feel afraid or neglected: No Advance Directives: No Advance Directives Information Provided: No Advance Directives on File: No Advance Directives Date on File: 01/25/21 Do you have thoughts of harming others: None Do you have a plan to hurt others: No Plan Recently lost weight without trying: No Nutrition Risks: No Nutritional Risk Poor oral hygiene: No service: Yes Current occupational status: employed Current occupational exposures/hazards: No Meds Allergies Allergy/AdvReac Type Severity Reaction Status Date / Time No Known Allergies Allergy Verified 11/11/21 13:13 [No Known Allergies*] Active Medications: Current Medications Acetaminophen (Acetaminophen 325 Mg Tablet) 650 mg PO Q6H PRN PRN Reason: pain/fever. Last Admin: 11/23/21 19:29 Dose: 650 mg Documented by: Furosemide (Furosemide 40 Mg Tablet) 40 mg PO BID@0900,1800 [facility]; Protocol Last Admin: 11/24/21 08:41 Dose: 40 mg Documented by: Vancomycin HCl 1,000 mg/ (Sodium Chloride) 270 mls @ 270 mls/hr IV Q12H [facility] Last Infusion: 11/24/21 01:45 Dose: Infused Documented by: Piperacillin Sod/Tazobactam (Sod 3.375 gm/ Sodium Chloride) 50 mls @ 100 mls/hr IV Q6H [facility] Last Admin: 11/24/21 13:45 Dose: 100 mls/hr Documented by: Levothyroxine Sodium (Levothyroxine Sodium 150 Mcg Tablet) 300 mcg PO Cruz@0630 [facility] Last Admin: 11/21/21 05:34 Dose: 300 mcg Documented by: Levothyroxine Sodium (Levothyroxine Sodium 150 Mcg Tablet) 150 mcg PO MoTuWeThFrSa@0630 [facility] Last Admin: 11/24/21 05:49 Dose: 150 mcg Documented by: Nitroglycerin (Nitroglycerin 0.4 Mg Tab.Subl) 0.4 mg SUBLINGUAL Q5MX3 PRN PRN Reason: Chest Pain Pt Own Med( Ivabradine [Corlanor ] 5 Mg Tablet) 1 each PO BID [facility] Last Admin: 11/24/21 08:41 Dose: 1 each Documented by: Omeprazole (Omeprazole 40 Mg Capsule.) 40 mg PO BID@0630,1630 [facility] Last Admin: 11/24/21 05:49 Dose: 40 mg Documented by: Ondansetron HCl (Ondansetron Hcl 4 Mg/2 Ml Vial) 4 mg IVPUSH Q6H PRN PRN Reason: Nausea Last Admin: 11/24/21 12:19 Dose: 4 mg Documented by: Pharmacy Consult (Consult Rx Perform Med Rec) 1 each MISCELLANE ONCE PRN PRN Reason: Consult order Pharmacy Consult (Consult Rx Vancomycin Dosing) 1 each MISCELLANE DAILY PRN PRN Reason: Consult order Home Medications Medication Instructions Recorded Confirmed Last Taken Type eplerenone 25 mg tablet (Inspra) 25 mg PO DAILY 11/05/21 11/18/21 11/17/21 History furosemide 20 mg tablet 40 mg PO DAILY@1800 11/18/21 11/18/21 11/17/21 History levothyroxine 125 mcg tablet 300 mcg PO CRUZ 11/18/21 11/18/21 11/17/21 History (Synthroid) levothyroxine 150 mcg tablet 150 mcg PO MOTUWETHFRSA 11/18/21 11/18/21 11/17/21 History prednisone 20 mg tablet 40 mg PO DAILY 11/18/21 11/18/21 11/17/21 History Physical Exam Vital Signs: Vital Signs: Last Vital Signs Temp 98.1 F 11/24/21 11:42 Pulse 86 11/24/21 11:42 Resp 17 11/24/21 11:42 BP 100/54 L 11/24/21 11:42 Pulse Ox 97 11/24/21 11:42 BMI result Body Mass Index 24.0 Const: General: cooperative Orientation/consciousness: patient oriented x3 Eyes: General: appearance normal, both eyes and all related structures Pupils: Equal, round and reactive pupils present Resp: Effort & Inspection: normal respiratory effort Cardio: Rate: regular rate Rhythm: regular rhythm GI: Palpation (GI): Soft to palpation and nontender Skin: General skin exam: no rashes or lesions noted Neuro: General: patient oriented x3 Cranial nerves: Yes Equal, round and reactive pupils present Extrem: General: Yes normal to inspection Results Labs CBC & Chem 7: 11/24/21 09:41 11/24/21 05:45 Labs: Short CBC 11/24/21 Range/Units 09:41 WBC 13.0 H (4.8-10.8) X10*3/uL Hgb 8.4 L (14.0-18.0) g/dl Hct 25.9 L (42.0-52.0) % Plt Count 202 D (160-400) X10*3/uL BMP 11/24/21 05:45 Creatinine 0.84 Microbiology Microbiology Results: Microbiology 11/22/21 22:54 Blood - Venous Blood Culture - Preliminary No growth after 24 hours. 11/22/21 22:54 Blood - Venous Blood Culture - Preliminary No growth after 24 hours. 11/18/21 15:49 Blood - Venous Blood Culture - Final No growth after 5 days. 11/18/21 15:42 Blood - Venous Blood Culture - Final No growth after 5 days. Assessment and Plan (1) Acute upper GI bleed: Status: Acute (2) [place] syndrome: Status: Acute (3) Lung infiltrate: Status: Acute (4) Fever of unknown origin: Status: Acute Fever may likely be mostly due to GI bleed. There is possibly aspiration infiltrate but most likely abnormalities related to GI bleed and hypovolume Plan Check procalcitonin. Check nares MRSA Stop antibiotics if both unremarkable after day 3/4
[2021-11-24] MEDS: vancomycin HCL 1,000 MG in 0.9 % Sodium Chloride 250 ML 250 MG IV (14:33)
[2021-11-24 15:38] LABS: Procalcitonin 0.21 ng/mL
[2021-11-24] MEDS: Acetaminophen 325 MG TABLET 650 MG PO (15:44)
[2021-11-24] MEDS: 0.9 % Sodium Chloride 250 ML IVCONT ×2 (16:15→17:45)
--- NOTE | 2021-11-24 18:34 | PM.EVENT ---
Event Note Date of Service: 11/24/21 Event Note: Patient seen and examined secondary to episodes of hypotension with systolic pressures 86-88. Patient examined and is asymptomatic. Was given initial bolus of 250 cc and p.m. Lasix was held. No response to 1st bolus 2nd bolus hung. This was discussed with patient who states his blood pressure does run in this range however he was somewhat dizzy precipitating the boluses. At this point in time, believe he is stable at his current pressures as he and his both recount this is where he ?lives?. Patient can be reassessed in a.m. for resumption of Lasix.
--- NOTE | 2021-11-24 22:40 | PC.NURSE ---
blood pressure 82/50 this afternoon,pt was c/0 headache at that time too. Medicated with normal Saline 250 ml IV x 2 . BP 90/50, Tylenol 650 mg po administered for headache with good effect , Trish plasencia by .
[2021-11-25] MEDS: Piperacillin Sodium/Tazobactam 3.375 GM in 0.9 % Sodium Chloride 50 ML IV ×4 (00:32→20:04)
[2021-11-25] MEDS: vancomycin HCL 1,000 MG in 0.9 % Sodium Chloride 250 ML 250 MG IV ×3 (01:07→23:46)
--- NOTE | 2021-11-25 02:10 | PC.NURSE ---
PT C/O SEVERE HEADACHE.STATES TYLENOL WILL NOT HELP. ON UNIT AND ASSESSED PATIENT.ORDER FOR DILAUDID 0.5MG IV Q 4HRS PRN GIVEN.
[2021-11-25] MEDS: HYDROmorphone HCl 0.5 MG/0.5 ML SYRINGE IVPUSH (02:47)
[2021-11-25 03:42] VITALS: BP 98/53; PULSE 93; RESP 18; TEMP 37.3; O2SAT 92
[2021-11-25] MEDS: Omeprazole 40 MG CAPSULE.DR PO ×2 (06:04→19:49)
[2021-11-25] MEDS: Levothyroxine Sodium 150 MCG TABLET PO (06:04)
[2021-11-25 07:16] LABS: Creatinine Clr Calc Pharmacy 96.9; Estimated Glomerular Filt Rate > 60
[2021-11-25 08:00] VITALS: BP 96/58; PULSE 91; RESP 18; TEMP 37.6; O2SAT 90
[2021-11-25 08:28] LABS: MRSA Nasal PCR NEGATIVE (Negative); SA Nasal PCR NEGATIVE (Negative)
[2021-11-25 10:16] LABS: Creatinine Clr Calc Pharmacy 90.3; Estimated Glomerular Filt Rate > 60
[2021-11-25 10:28] LABS: Vancomycin Trough 11.5 mcg/mL (10.0-20.0)
--- NOTE | 2021-11-25 10:58 | P.PNIM_ITS ---
Subjective Subjective Date of Service: 11/25/21 Interval History: complaining of headache, shortness of breath and orthopnea, denies chest pain, denies fever chills no other acute issues overnight Lasix is on hold due to low blood pressures Review of Systems [employer] no headache no dizziness GI no nausea, no vomiting skin no rash Review of Systems: Yes all other systems are reviewed and are negative Physical Exam Vital Signs: Vital Signs: Last Vital Signs Temp 99.6 F 11/25/21 08:00 Pulse 91 11/25/21 08:00 Resp 18 11/25/21 08:00 BP 96/58 L 11/25/21 08:00 Pulse Ox 90 L 11/25/21 08:00 BMI result Body Mass Index 24.0 Const: Other: General: awake alert x3, no acute distress neck no JVD Resp:? CTA bilateral, no use of accessory muscles CVS: S1,S2,RRR, no leg edema GI: +BS, NT, no distention extremities no edema Skin: No rash Neuro:? motor grossly intact Psych: appropriate affect ? Objective Data Active Medications Acetaminophen (Acetaminophen 325 Mg Tablet) 650 mg PO Q6H PRN PRN Reason: pain/fever. Last Admin: 11/24/21 15:44 Dose: 650 mg Documented by: JEFFRY Furosemide (Furosemide 40 Mg Tablet) 40 mg PO BID@0900,1800 [facility]; Protocol Vancomycin HCl 1,000 mg/ (Sodium Chloride) 270 mls @ 270 mls/hr IV Q12H [facility] Last Infusion: 11/25/21 02:29 Dose: 0 mls/hr Documented by: RAMA Piperacillin Sod/Tazobactam (Sod 3.375 gm/ Sodium Chloride) 50 mls @ 100 mls/hr IV Q6H [facility] Last Infusion: 11/25/21 06:36 Dose: 0 mls/hr Documented by: RAMA Levothyroxine Sodium (Levothyroxine Sodium 150 Mcg Tablet) 300 mcg PO Russell@0630 [facility] Last Admin: 11/21/21 05:34 Dose: 300 mcg Documented by: NANNETTE Levothyroxine Sodium (Levothyroxine Sodium 150 Mcg Tablet) 150 mcg PO MoTuWeThFrSa@0630 [facility] Last Admin: 11/25/21 06:04 Dose: 150 mcg Documented by: RAMA Nitroglycerin (Nitroglycerin 0.4 Mg Tab.Subl) 0.4 mg SUBLINGUAL Q5MX3 PRN PRN Reason: Chest Pain Pt Own Med( Ivabradine [Corlanor ] 5 Mg Tablet) 1 each PO BID [facility] Last Admin: 11/24/21 20:05 Dose: 1 each Documented by: JEFFRY Omeprazole (Omeprazole 40 Mg Capsule.Dr) 40 mg PO BID@0630,1630 [facility] Last Admin: 11/25/21 06:04 Dose: 40 mg Documented by: RAMA Ondansetron HCl (Ondansetron Hcl 4 Mg/2 Ml Vial) 4 mg IVPUSH Q6H PRN PRN Reason: Nausea Last Admin: 11/24/21 12:19 Dose: 4 mg Documented by: XENIA Pharmacy Consult (Consult Rx Perform Med Rec) 1 each MISCELLANE ONCE PRN PRN Reason: Consult order Pharmacy Consult (Consult Rx Vancomycin Dosing) 1 each MISCELLANE DAILY PRN PRN Reason: Consult order Labs CBC & Chem 7: 11/24/21 09:41 11/25/21 09:45 Labs: Laboratory Results - last 24 hr 11/24/21 11/24/21 11/24/21 09:41 14:48 21:48 Estim Creat Clear Calc Estimated GFR Procalcitonin 0.21 Nasal Screen MRSA (PCR) NEGATIVE Nasal S. aureus Screen NEGATIVE Nasal MRSA/S.aureus Interp SEE NOTE Vancomycin Trough 9.7 L 11/25/21 11/25/21 11/25/21 06:31 09:45 09:45 Estim Creat Clear Calc 96.9 90.3 Estimated GFR > 60 > 60 Procalcitonin Nasal Screen MRSA (PCR) Nasal S. aureus Screen Nasal MRSA/S.aureus Interp Vancomycin Trough 11.5 Microbiology Microbiology Results: Microbiology 11/22/21 22:54 Blood Culture - Preliminary Blood - Venous No growth after 48 hours. 11/22/21 22:54 Blood Culture - Preliminary Blood - Venous No growth after 48 hours. Assessment and Plan (1) Sepsis: Status: Acute (2) Pneumonia: Status: Acute Plan 60-year-old male with a past medical history of anemia, severe aortic stenosis, history of bioprosthetic heart valve, s/p TAVR, LBBB, CHF status post AICD, hypothyroidism, history of complete heart block, history of Hodgkin's lymphoma, [place]'s syndrome, history ITP, multinodular thyroid, history of remote pulmonary embolism-presently not anticoagulated. He was admitted through ICU on 11/18 with upper GI bleeding, acute blood loss anemia complicated by scohck. Has required 2 units of RBCs, EGD 11/19 showed 12 mm gastric ulcer. Sepsis d/t pneumonia, sepsis due to fever and increased WBC, lactic acid negative. blood cultures negative on IV Vanco and Zosyn--D3 patient seen by ID she feels Fever likely due to GI bleed, with possibly aspir ation infiltrate but most likely abnormalities related to GI bleed and hypovolume, she recommended procalcitonin that is 0.21, will check MRSA nares if negative will DC IV antibiotics Upper GI bleeding, with initial hemorrhagic shock managed in the ICU, acute blood loss anemia--s/p 2 units, Hematocrit improved post transfusion and remains stable continue by mouth PPI is status post upper endoscopy that showed 12 mm ulcer with visible vessel and no active bleeding, treated with epi and cauterized with gold probe, will recommend no NSAIDs Hypotension--he normally runs a low systolic 90s to 100s, asymptomatic continue monitoring Chronic HFpEF Status post AICD. history of non ischemc cardiomyopathy:? patient complaining of shortness of breath and orthopnea, clinically does not appear to be in acute CHF will resume Lasix 40 mg by mouth twice daily case discussed with primary wood stock blank handler Dr. Wyman he agrees that patient has chronically low blood pressure and okay to resume diuretics. History of hypothyroidism Continue home levothyroxine h/o ITP--Platelet initially dropped from 210 on admission to to 113 on 11/22, repeat platelet today's 202, prednisone on hold due to gastric ulcer. DVT prophylaxis...out of bed and ambulation, compression device. Need for inaptient: sepsis due to pneumonia on IV antibiotics, with borderline blood pressures, need close clinical monitoring while diuretics been re- initiated. Quality Stroke Does the patient have a stroke diagnosis?: No VTE Prior VTE?: No VTE Risk Level:: Medical - low VTE Device Contraindication: Treatment Not Indicated VTE Drug Contraindication: Treatment Not Indicated
[2021-11-25] MEDS: Potassium Chloride ER 20 MEQ TAB.ER.PRT PO (10:59)
[2021-11-25] MEDS: Furosemide 40 MG TABLET PO ×2 (10:59→19:49)
[2021-11-25 12:00] VITALS: BP 102/58; PULSE 96; RESP 16; TEMP 37.3; O2SAT 94
[2021-11-25 15:24] VITALS: BP 95/55; PULSE 97; RESP 18; TEMP 37; O2SAT 92
[2021-11-25 19:42] VITALS: BP 104/54; PULSE 97; RESP 18; TEMP 37.1; O2SAT 94
[2021-11-25 23:23] VITALS: BP 92/48; PULSE 97; RESP 16; TEMP 38.4; O2SAT 90
[2021-11-25] MEDS: Acetaminophen 325 MG TABLET 650 MG PO (23:46)
[2021-11-26] MEDS: Piperacillin Sodium/Tazobactam 3.375 GM in 0.9 % Sodium Chloride 50 ML IV ×2 (00:54→06:24)
[2021-11-26] MEDS: HYDROmorphone HCl 0.5 MG/0.5 ML SYRINGE IVPUSH (00:54)
[2021-11-26 01:00] VITALS: TEMP 37.2
[2021-11-26 03:14] VITALS: BP 90/42; PULSE 81; RESP 14; TEMP 36.3; O2SAT 94
[2021-11-26 05:39] LABS: Creatinine Clr Calc Pharmacy 101.9; Estimated Glomerular Filt Rate > 60
[2021-11-26 06:00] VITALS: BMI 25.4
[2021-11-26] MEDS: Omeprazole 40 MG CAPSULE.DR PO (06:27)
[2021-11-26] MEDS: Levothyroxine Sodium 150 MCG TABLET PO (06:28)
[2021-11-26 07:36] VITALS: BP 93/64; PULSE 80; RESP 19; TEMP 36.1; O2SAT 99
[2021-11-26 10:41] LABS: Vancomycin Trough 11.1 mcg/mL (10.0-20.0)
[2021-11-26 11:21] VITALS: BP 120/56; PULSE 99; RESP 20; TEMP 36.7; O2SAT 94
[2021-11-26] MEDS: Furosemide 40 MG TABLET PO (11:31)
--- NOTE | 2021-11-26 11:59 | P.DS_ITS ---
DS: Providers Provider Date of Service: 11/26/21 Date of admission: 11/18/21 18:28 Primary care physician: Unknown Physician Consults: 11/22/21 22:45 Consult to Infectious Diseases Routine Consulting Provider: Gabriela Canada Reason for consultation: fever DS: Diagnosis Discharge Diagnosis (1) Sepsis: Status: Acute (2) Pneumonia: Status: Acute DS: Summary Hospital Course Hospital Course: History of presenting illness: Date of Service: 11/19/21 Attending physician on admission: Javed Juan Chief Complaint: UGIB HPI:??61-year-old patient with underlying history of non-Hodgkin's lymphoma status post treatment on remission for the word 25 years, prior history of upper GI bleed x3 status post endoscopies without a source, history of Val syndrome, recent COVID infection, 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 Patient had reported having severe weakness, dizziness and black diarrhea which was reported to Dr. Merchant, patient had been coming out of his car in the parking lot of the hospital and started vomiting blood, he was brought into the emergency room where he vomited a 2nd time.? At the time he denied any abdominal discomfort.? Initially he was hemodynamically is stable but did have black tarry stool on rectal exam. His workup in the emergency room his workup revealed white count of 18.9 which is about baseline for him, H&H of 10.8 and 32.3 respectively with a prior baseline 1 day ago 14.4 and 43.9, platelet count of 210, chemistries significant force potassium 5.2, BUN 59, creatinine 0.68, lactic acid 2.5.? Patient was given 1 L of crystalloids, Dr. Leal was consulted and the patient went to the endoscopy suite, he received 1 unit packed red blood cells, I was reported by the skiver blockers specialist that he did not find any active bleeding, he did do a lap pad where he removed all the clotted blood and mold liquidy blood but no clear evidence of ulcers, no viruses or AVM or any other clear source of active bleeding. ?Patient has remained borderline hypotensive and slightly tachycardic with a systolic blood pressure just over 90 and heart rate between 105 and 115.? No complications the procedure was reported. ?COVID negative. During my initial interview, the patient is able to respond to questions although he is somewhat drowsy, denies any chest pain, shortness a breath, abdom inal pain, he does admit to having some nausea but no other symptom. Hospital course 60-year-old male with a past medical history of anemia, severe aortic stenosis, history of bioprosthetic heart valve, s/p TAVR,? LBBB, CHF status post AICD, hypothyroidism, history of complete heart block, history of Hodgkin's lymphoma, Val's syndrome, history ITP, multinodular thyroid, history of remote pulmonary embolism-presently not anticoagulated.? He was admitted through ICU on 11/18 with upper GI bleeding, acute blood loss anemia complicated by shock. Has required 2 units of RBCs, EGD 11/19 showed 12 mm gastric ulcer. Sepsis d/t pneumonia, patient diagnosed to have sepsis due to fever and leukocytosis, lactic acid was negative patient treated with IV vancomycin and Zosyn, blood cultures x2 are negative times 48 hours patient evaluated by Dr. Canada from Infectious Disease she felt fever likely due to GI bleed and possibly aspiration infiltrate, procalcitonin level was low, therefore antibiotic discontinued after 4 days of therapy, patient noted to have no recurrent episodes of fever, and remained hemodynamically stable with normal lung examination. Upper GI bleeding, with initial hemorrhagic shock managed in the ICU, acute blood loss anemia--s/p 2 units, Hematocrit? improved post transfusion and remains stable, patient treated with Prilosec 40 mg b.i.d. upper endoscopy showed 12 mm gastric ulcer with visible vessel and no active bleeding, treated with epi and cauterized with gold probe, recommend no NSAIDs, aspirin held for 2 weeks and prednisone has been discontinued. Hypotension--normally runs a low systolic 90s to 100s, asymptomatic Recommend to resume all home medications, dose of Lasix reduced to 40 mg b.i.d.. Chronic HFpEF Status post AICD. history of non ischemc cardiomyopathy:? Patient noted to have no overt sign of heart failure has been continued on Lasix, and elprenone recommend close outpatient follow-up with Cardiology, will hold aspirin for 2 weeks. History of hypothyroidism Continue home levothyroxine h/o ITP--Platelet? initially dropped from 210 on admission to? to 113 on 11/22, repeat platelet improved to 202, prednisone has been discontinued due to gastric ulcer recommend follow-up with Dr. Merchant for continued monitoring. Time Spent with Patient Time attestation: Total time spent providing and/or coordinating discharge services: Discharge coordination time: Greater than 30 minutes Quality: Safe Use of Opioids Does Pt have an Active Cancer Diagnosis on the Problem List?: No Quality: Stroke Does the patient have a stroke diagnosis?: No Physical Exam Vital Signs: Vital Signs: Last Vital Signs Temp 98.1 F 11/26/21 11: Pulse 99 11/26/21 11:21 Resp 20 11/26/21 11:21 BP 120/56 L 11/26/21 11:21 Pulse Ox 94 11/26/21 11:21 BMI result Body Mass Index 25.4 Const: Other: General: awake alert x3, no acute distress Neck no JVD Resp:? lungs clear to auscultation bilaterally, no crackles no wheeze, no use of accessory muscles CVS: S1,S2,RRR, no leg edema GI: abdomen soft nontender bowel sounds audible, no distention extremities no edema Skin: No rash Neuro:? motor grossly intact Psych: appropriate affect ? DS: Data Data Completed and Pending Completed studies during hospitalization [Text1]: Procedures Drainage of Bone Marrow, Percutaneous Approach, Diagnostic (09/20/21) Excision of Stomach, Pylorus, Via Natural or Artificial Opening Endoscopic, Diagnostic (01/13/21) Extraction of Iliac Bone Marrow, Percutaneous Approach, Diagnostic (09/20/21) Inspection of Lower Intestinal Tract, Via Natural or Artificial Opening Endoscopic (01/13/21) Reposition Left Upper Femur with Internal Fixation Device, Percutaneous Approach (01/25/21) Transfusion of Nonautologous Red Blood Cells into Peripheral Vein, Percutaneous Approach (01/25/21) Labs on day of discharge: Laboratory Results - last 24 hr 11/26/21 11/26/21 11/26/21 04:15 09:38 09:38 Potassium 4.0 D Creatinine 0.78 Estim Creat Clear Calc 101.9 Estimated GFR > 60 Vancomycin Trough 11.1 Preliminary micro results at discharge 11/22/21 22:54 Blood Culture - Preliminary Blood - Venous No growth after 48 hours. 11/22/21 22:54 Blood Culture - Preliminary Blood - Venous No growth after 48 hours. Discharge Plan Discharge Patient Disposition: Home, Self-Care Discharge Diagnosis: sepsis due to pneumonia upper GI bleeding acute blood loss anemia hypotension chronic heart failure with preserved EF Referrals: Physician,Unknown J [Primary Care Provider] - 1 Week Discharge Medications: New omeprazole 40 mg Capsule,Delayed Release(Dr/Ec) 40 mg PO BID@0630,1630 Qty: 60 0RF Continued ferrous sulfate 325 mg (65 mg iron) tablet 325 mg PO DAILY 90 Days Qty: 90 1RF Corlanor 5 mg tablet 5 mg PO BID 90 Days Qty: 180 1RF Rx Instructions: must administer with a meal/food eplerenone [Inspra] 25 mg tablet 25 mg PO DAILY 0RF levothyroxine [Synthroid] 125 mcg tablet 300 mcg PO CRUZ 0RF levothyroxine 150 mcg tablet 150 mcg PO MOTUWETHFRSA 0RF Rx Instructions: 1 pill per day 6 days a week and 2 pills one day a week furosemide 20 mg tablet 40 mg PO DAILY@1800 0RF Changed furosemide 20 mg tablet 40 mg PO BID Qty: 0 0RF Held aspirin 81 mg tablet,delayed release (DR/EC) 81 mg PO DAILY Qty: 90 3RF Hold Instructions: Resume on 12/06/21. Discontinued furosemide 20 mg tablet 60 mg PO DAILY 90 Days Qty: 270 1RF prednisone 5 mg Tablet 5 mg PO DAILY Qty: 100 4RF Rx Instructions: total dose of 45 mg daily prednisone 20 mg tablet 40 mg PO DAILY 0RF Rx Instructions: total dose of 45mg daily Discharge Orders: Discharge Order (Routine); Ordered 11/26/21 Ordered By: Susan Perdomo Diet: low salt diet Activity on Discharge: As tolerated Stand Alone Forms: Patient Portal Discharge page Care Plan Goals: upper GI bleed with acute blood loss anemia due to gastric ulcer, hold aspirin for 2 weeks, stop using prednisone take Prilosec, do not take Advil Motrin or any NSAIDs no further antibiotics recommended take all other home medications as indicated dose of Lasix has been reduced to 40 mg twice daily Health Concerns: nonischemic cardiomyopathy/ status post TAVR take all home medications, follow- up with cardiology as previously planned Plan of Treatment: outpatient follow-up with primary care physician next 1-2 weeks, Oncology Dr. Merchant Assessment: as per discharge plan
--- NOTE | 2021-11-26 12:23 | MHC.CM.PN ---
NURSE MEDICAL ILLUSTRATOR NOTE ELECTRONIC MEDICAL RECOR D REVIEWED ALONG WITH CASE DISUCSSED WITH STAFF NURSE AND THE HOSPITLIST , MET WITH PATIENT THERE WA A QUESTION OF MAYBE HAVING VNA AT DISCHARGE SPOKE WITH PATIENT HE IS NOT INTERESTED IN THIS HE PLANS ON RETUNING BACK TO WORK THIS MONDAY, AND NO ORDERED FOR VNA / DISCHARGE PLAN HOME WITH NO SERVICES LIVES WITH INDPENDENT PCP DR CONG DEY PATIENT INSTRUCTED TO [facility] FOR APPOINTMENT FOR [facility] DISCHARGE TRANSPORTATION HIS WILL NEED NOTE TO RETURN BAVK TO WORK
== END 2021-11-26 15:10 | disposition home or self-care (01) | DRG 241 ==
LOC: HO.ED 17:50 → HO.EDOVER 18:42 → HO.ICU 18:45 → HO.S3 11-19 22:02
PROVIDERS: Hospitalist; Internal Medicine; Internal Medicine Gastroenterology; Physician Assistant Medical; Admitting Provider Anesthesiology; Emergency Provider Emergency Medicine; Visit Provider Hospitalist
PROC: 0DJ08ZZ Inspection of Upper Intestinal Tract, Via Natural or Artificial Opening Endoscopic (ICD-10-PCS; CPT 43235; principal; 2021-11-18 17:30)
PROC: 0W3P8ZZ Control Bleeding in Gastrointestinal Tract, Via Natural or Artificial Opening Endoscopic (ICD-10-PCS; principal; 2021-11-19 12:50)
DX: K25.4 Chronic or unspecified gastric ulcer with hemorrhage (principal); R57.8 Other shock; A41.9 Sepsis, unspecified organism; N17.9 Acute kidney failure, unspecified; J18.9 Pneumonia, unspecified organism; D69.3 Immune thrombocytopenic purpura; I50.32 Chronic diastolic (congestive) heart failure; Q85.8 Other phakomatoses, not elsewhere classified; K31.7 Polyp of stomach and duodenum; I44.7 Left bundle-branch block, unspecified; D62 Acute posthemorrhagic anemia; E03.9 Hypothyroidism, unspecified; Z95.2 Presence of prosthetic heart valve; Z20.822 Contact with and (suspected) exposure to COVID-19; Z95.810 Presence of automatic (implantable) cardiac defibrillator; Z86.711 Personal history of pulmonary embolism; Z86.16 Personal history of COVID-19; Z85.71 Personal history of Hodgkin lymphoma; Z79.890 Hormone replacement therapy; Z79.899 Other long term (current) drug therapy
CPT/HCPCS: 36415; 36430; 70450; 71045; 80048; 80053; 80076; 80202; 81003; 82272; 82565; 82947; 83605; 83690; 83735; 83880; 84100; 84132; 84145; 84443; 84484; 85014; 85018; 85025; 85027; 85610; 85730; 86850; 86900; 86901; 86923; 87040; 87635; 87640; 87641; 93005; 96361; 96374; 96375; 96376; 99285; 99291; J0171; J1170; J2060; J2250; J2370; J2405; J2543; J3370; J3475; P9016; P9047

== ENCOUNTER 2021-12-01 12:39 | Inpatient (IN) | payer OTHER, SELFPAY ==
[2021-12-01] VITALS (13 sets, daily range): BP systolic 90–106; BP diastolic 53–62; PULSE 92–110; RESP 18–44; TEMP 36.2–37.6; O2SAT 93–99; BMI 24.7
--- NOTE | 2021-12-01 | ECG_ITS ---
Test Reason : SOB Blood Pressure : / mmHG Vent. Rate : 090 BPM Atrial Rate : 090 BPM P-R Int : 144 ms QRS Dur : 152 ms QT Int : 440 ms P-R-T Axes : 054 236 043 degrees QTc Int : 538 ms Atrial-sensed ventricular-paced rhythm Abnormal ECG When compared with ECG of 21-NOV-2021 20:17, Vent. rate has decreased BY 7 BPM Referred By: Generic ED Physician Electronically Signed By:Jairo Valdez
--- NOTE | 2021-12-01 | ECG_ITS ---
Test Reason : CHEST PAIN Blood Pressure : / mmHG Vent. Rate : 108 BPM Atrial Rate : 108 BPM P-R Int : 142 ms QRS Dur : 146 ms QT Int : 398 ms P-R-T Axes : 050 241 034 degrees QTc Int : 533 ms Atrial-sensed ventricular-paced rhythm Abnormal ECG When compared with ECG of 01-DEC-2021 12:56, Vent. rate has increased BY 18 BPM Referred By: Odilon Mayorga Electronically Signed By:Jairo Valdez
--- NOTE | ~2021-12-01 | XR_ITS ---
EXAMINATION: XR CHEST CLINICAL INFORMATION: Congestive heart failure COMPARISON: 11/22/2021 and 11/29/2021. Chest CT from 06/17/2021 and 12/01/2021. TECHNIQUE: 2 views of the chest were obtained. FINDINGS: Again noted are patchy opacities throughout the left lung and in the mid to lower right lung. Pulmonary disease remains worse compared to 11/22/2021 but is not appreciably changed compared to 11/29/2021. Chronic, small right pleural effusion is present. No pneumothorax. Cardiac silhouette is normal in size, status post transcatheter aortic valve replacement. Again noted is the automatic implantable cardioverter defibrillator generator with leads extending to the right atrium, apex of right ventricle and along the coronary sinus to left ventricle. Small left pleural effusion is observed on the lateral view. XR/XR chest 2V IMPRESSION: * The persistent patchy bilateral point opacities are nonspecific and could represent asymmetric distribution of pulmonary edema and/or multilobar pneumonia, if in the proper clinical context. No interval improvement compared to prior chest radiograph from 11/29/2021. * Chronic small right pleural effusion. * Small left pleural effusion is present.
--- NOTE | ~2021-12-01 | CT_ITS ---
EXAMINATION: CT ABDOMEN AND PELVIS WITH CONTRAST CLINICAL INFORMATION: Fevers COMPARISON: Left upper extremity venous ultrasound 12/07/2021, chest radiograph 12/05/2021, CTA chest 12/01/2021, CT abdomen and pelvis with contrast 06/17/2021. TECHNIQUE: Multidetector volumetric images were obtained from the superior aspect of the liver through the pubic symphysis following administration of 75 mL of Omnipaque 350 intravenous contrast. Sagittal and coronal reformatted images were obtained on the technologist's workstation. Oral contrast: Yes This CT examination was performed using dose optimization techniques as appropriate, variously including the following: *Automated exposure control *Adjustment of mA and/or kV according to patient size (this includes techniques or standardized protocols for targeted exams where dose is matched to indication/reason for exam; i.e. extremities or head) *Use of iterative reconstruction technique DLP: 348 mGy-cm FINDINGS: LUNG BASES: Bilateral patchy airspace opacities, slightly decreased since 12/01/2021. Bilateral effusions, greater on the left, stable. LIVER, GALLBLADDER, AND BILIARY TREE: The liver is normal in size, shape, and attenuation. No focal hepatic lesion or biliary ductal dilatation is present. The gallbladder is mildly distended. No stone or wall thickening or pericholecystic inflammatory changes. Common duct unremarkable. PANCREAS: Unremarkable. SPLEEN: Prior splenectomy. Surgical clips left subphrenic region. ADRENAL GLANDS: Unremarkable. KIDNEYS AND URETERS: The kidneys are normal in size and enhance symmetrically. No hydronephrosis, hydroureter, calculi, or perinephric stranding. There is stable subcentimeter cyst medial right kidney similar to CT 06/17/2021. 1 cm cyst lateral left kidney is decreased in size, prior measurement 1.4 cm. No additional imaging follow-up required. BLADDER: Unremarkable. GASTROINTESTINAL TRACT: No inflammatory changes in bowel or mesentery. The appendix is not seen with certainty. No inflammatory changes around the terminal ileum or cecum. No ascites or fluid collection. Again, there is a chronic heavily calcified circumscribed mass right mid mesentery just below gastrohepatic ligament measuring approximately 4.3 x 2.5 x 2.5 cm. ABDOMINAL WALL: No significant hernia is appreciated. LYMPH NODES: No lymphadenopathy. VASCULAR: Retroaortic left renal vein. TAVR. Multilead AICD. No pericardial effusion. PELVIC VISCERA: Bilateral enlarged seminal vesicles with mild prostatic enlargement, stable. OSSEOUS STRUCTURES: No acute bony abnormality. CT/CT abdomen pelvis w con IMPRESSION: -Bibasilar infiltrates slightly decreased. Bibasilar effusions stable. -No inflammatory changes in abdomen or pelvis. No bowel obstruction, ascites, or fluid collection. -No hydronephrosis or calculi or perinephric stranding. -No biliary ductal dilatation.
--- NOTE | ~2021-12-01 | CT_ITS ---
EXAMINATION: CT ANGIOGRAM OF THE CHEST WITH AND WITHOUT CONTRAST (CT PULMONARY ANGIOGRAM FOR PE) CLINICAL INFORMATION: Shortness of breath, elevated D-dimer, rule out PE COMPARISON: Chest CT scan dated 06/17/2021. TECHNIQUE: Prior to contrast administration, noncontrast localization images were obtained. Subsequently, multidetector volumetric imaging was performed from the thoracic inlet to below the diaphragms following the administration of 80 mL Omnipaque 350 intravenous contrast. No contrast reaction reported Sagittal, coronal, and MIP oblique sagittal reformatted images were obtained on the CT workstation, uploaded to PACS, and reviewed. This CT examination was performed using dose optimization techniques as appropriate, variously including the following: *Automated exposure control *Adjustment of mA and/or kV according to patient size (this includes techniques or standardized protocols for targeted exams where dose is matched to indication/reason for exam; i.e. extremities or head) *Use of iterative reconstruction technique Total exam dose-length product 317 mGy-cm FINDINGS: QUALITY OF STUDY/CONTRAST BOLUS: Satisfactory. Some limitation at the lung bases secondary to respiratory motion artifact. PULMONARY ARTERIES: No central or segmental pulmonary emboli. THORACIC AORTA: No aneurysm or dissection. Mild atherosclerosis in the arch. Aortic prosthesis in place. LUNGS/PLEURA/AIRWAYS: Bilateral patchy infiltrates are seen bilaterally, left greater than right with infiltrates in the left upper and lower lobes on the left and right middle lobe on the right. Moderate left and small right pleural effusions. No suspicious pulmonary nodules. MEDIASTINUM: Normal heart size. Postoperative changes. No pericardial effusion. No hilar or mediastinal lymphadenopathy. No evidence of septal bowing or right heart strain. CHEST WALL/AXILLA: No axillary or internal mammary lymphadenopathy. OSSEOUS STRUCTURES: Mild multilevel degenerative changes in the thoracolumbar spine. UPPER ABDOMEN: Unremarkable. No reflux of contrast into the hepatic veins to suggest elevated right heart pressures. CT/CT angio chest PE protocol IMPRESSION: 1. No evidence for pulmonary embolism. 2. Diffuse bilateral patchy infiltrates and bilateral pleural effusions, left greater than right. These are nonspecific, but suggest an infectious/inflammatory process. A cardiogenic etiology cannot be excluded. Correlate clinically. Short-term radiographic follow-up is recommended as clinically indicated. VTE: Negative.
--- NOTE | ~2021-12-01 | US_ITS ---
EXAMINATION: US VENOUS WITH DOPPLER UPPER EXTREMITY, LEFT CLINICAL INFORMATION: Left upper extremity edema COMPARISON: None TECHNIQUE: Ultrasound of the upper extremity is performed using compression sonography and color and pulse Doppler flow with assessment of augmentation of flow. There is also imaging and Doppler assessment of the jugular and subclavian veins. Spectral analysis with color-flow imaging is performed. FINDINGS: Thrombus is present in the brachial vein, axillary vein and left subclavian vein consistent with acute left upper extremity DVT. Thrombus is also present in the superficial basilic vein as well as the cephalic vein near the antecubital fossa. The radial and ulnar veins are patent, compressible and free of thrombus. The left internal jugular vein appears normal. US/US venous duplex UE LT IMPRESSION: Left upper extremity DVT. Superficial thrombophlebitis is also present as described above
--- NOTE | 2021-12-01 14:21 | PC.NURSE ---
rectal exam done by MD with tech supervision and rectal temp taken at this time
--- NOTE | 2021-12-01 14:32 | ED.SOB ---
HPI - SOB/Dyspnea General Chief Complaint: Dyspnea Stated Complaint: difficulty breathing Time Seen by Provider: 12/01/21 13:48 History of Present Illness HPI Narrative: 61-year-old male who was sent to the emergency department from the Hematology transfusion clinic for evaluation of shortness of breath. The patient was recently hospitalized here from 11/18/2021 until 11/26/2021. The patient presented initially with weakness and hematemesis. The patient had an endoscopy in the source for his upper GI bleed was not found. The patient also had sepsis secondary to possible aspiration pneumonia. According to his , the patient is not been the same since his hospitalization. He has had no appetite and has had no food to eat for approximately 6 days. He has been lethargic. He has had shortness of breath at rest he has had dyspnea on exertion. He has felt hot and cold at home and he did have a temperature at home today of 100.4 degrees F. he has had episodes of diaphoresis as well. The patient does have nonischemic cardiomyopathy and his corrective therapy aide teacher was concerned that he might be fluid overloaded. The patient was taking Lasix 60 mg in the morning and 40 mg at night, and on Monday (3 days prior to evaluation) corrective therapy aide teacher increased his Lasix to 60 mg twice a day. Chest x-ray on 11/29/2021 revealed interval worsening of left upper lobe and perihilar interstitial so changes with small bilateral pleural effusions. The patient's senior talent management consultant was concerned that his symptoms may be secondary to anemia and scheduled him for a transfusion today for an H&H of 8 and 25 (pre GI bleed H&H was 14 and 43.9). According to his , he did receive Lasix prior to his transfusion and during the transfusion he became more short of breath and the appear well, his senior talent management consultant stopped the transfusion and sent him to the emergency department for evaluation. \ Related Data Home Medications Medication Instructions Recorded Confirmed eplerenone 25 mg tablet (Inspra) 25 mg PO DAILY 11/05/21 11/29/21 levothyroxine 125 mcg tablet 300 mcg PO CRUZ 11/18/21 11/29/21 (Synthroid) levothyroxine 150 mcg tablet 150 mcg PO MOTUWETHFRSA 11/18/21 11/29/21 Previous Rx's Medication Instructions Recorded ferrous sulfate 325 mg (65 mg 325 mg PO DAILY 90 Days #90 tab 09/08/21 iron) tablet ivabradine 5 mg tablet (Corlanor) 5 mg PO BID 90 Days #180 tab 09/02/21 aspirin 81 mg tablet,delayed 81 mg PO DAILY #90 tab 10/22/21 release furosemide 20 mg tablet 40 mg PO BID #0 tab 11/26/21 omeprazole 40 mg capsule,delayed 40 mg PO BID@0630,1630 #60 cap 11/26/21 release Allergies Allergy/AdvReac Type Severity Reaction Status Date / Time No Known Allergies Allergy Verified 11/29/21 16:14 [No Known Allergies*] Review of Systems Review of Systems: Yes all other systems are reviewed and are negative [facility] Past Medical History Medical History Anemia Aortic stenosis, severe Bilateral pulmonary embolism Cardiac resynchronization therapy defibrillator (ENERGY [employer]OR-D) in place Complete heart block Congestive heart failure COVID-19 COVID-19 vaccine series completed 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Fever of unknown origin HFrEF (heart failure with reduced ejection fraction) Hodgkins lymphoma Hypocalcemia Hypotension (arterial) Hypothyroidism LBBB (left bundle branch block) Leukocytosis Low TSH level Lung infiltrate Multinodular thyroid Multinodular thyroid NICM (nonischemic cardiomyopathy) Osteoporosis Pacemaker Pulmonary embolism Recurrent pleural effusion on right Rib fracture Rib pain Right hip pain Shortness of breath Sinus tachycardia Thrombocytopenia Vitamin D deficiency Surgical History H/O splenectomy History of appendectomy History of cardiac pacemaker History of endoscopy History of esophagogastroduodenoscopy (EGD) History of hip surgery Hx of colonoscopy S/P TAVR (transcatheter aortic valve replacement) Family History Family History Father Healthy adult male Mother Bladder cancer Social History Social History Household Members: Spouse and Children Housing: House Are you a primary care worker to a significant other at home: No Do you presently have visiting nurse or other home services: No Alcohol intake: current Alcohol intake frequency: holidays/special occasions only Patient Tobacco Use Status: Never used Tobacco e-Cigarette/Vaping Use: Never Used Second Hand Smoke Exposure: No Advance Directives: Yes Advance Directives Information Provided: No Advance Directives on File: No Advance Directives Date on File: 01/25/21 service: Yes Current occupational status: employed Current occupational exposures/hazards: No Physical Exam Vital Signs: Vital Signs: Last Vital Signs Temp 97.2 F 12/01/21 14:21 Pulse 94 12/01/21 12:53 Resp 25 H 12/01/21 12:53 BP 95/56 L 12/01/21 12:53 Pulse Ox 96 12/01/21 12:53 BMI result Body Mass Index 24.7 Const: Other: Awake, alert, male patient, very pleasant and cooperative, he does appear to be tachypneic, he answers questions appropriately, he is hard of hearing. General: cooperative and no acute distress Orientation/consciousness: oriented to person and oriented to place Limitations: no limitations HEENT: Head: Yes normal to inspection, Yes normocephalic and Yes atraumatic Ears: external ears normal General nose exam: Normal external nose present Face and sinus: Yes normal facial exam Mouth: Normal oral and palatal mucosa present Throat: Yes posterior oropharynx normal Eyes: General: appearance normal, both eyes and all related structures Periorbital: periorbital findings normal Eyelids: Yes eyelids normal Conjunctivae: conjunctivae normal Sclerae: sclerae normal Corneas: corneas normal Pupils: Equal, round and reactive pupils present Direct Ophthalmoscopy: normal light reflex Neck: Neck: Yes normal visual inspection and Yes supple Lymphatic: no lymphadenopathy noted Chest: Chest palpation & inspection: normal inspection of the chest and normal palpation of entire chest wall Resp: Effort & Inspection: tachypneic Auscultation: crackles (Basis), no rhonchi and no wheezes Cardio: Rate: regular rate Rhythm: regular rhythm Heart sounds: S1 normal heart sound present, S2 normal heart sound present and Murmur heart sound present systolic III/ and at the left sternal border GI: Inspection: No distended Palpation (GI): Soft to palpation, nontender and no guarding Auscultation: normal bowel sounds Rectal Exam - Male: Yes visual inspection normal, Yes normal sphincter tone and Yes heme positive stool (Loose, brown stool) : General: Yes no CVA tenderness Back/Spine/Pelvis: Back: no CVA tenderness Skin: General skin exam: no rashes or lesions noted Lesions: no lesions Rashes: no rashes Neuro: General: oriented to person and oriented to place Cranial nerves: Yes CN's II-XII intact bilaterally and Yes Equal, round and reactive pupils present Cognition (Neuro): normal cognition Motor exam (neuro): 5/5 motor strength present throughout Extrem: General: Yes edema (Bilateral trace to 1+, some) Psych: Appearance: grossly normal Mental Status: mental status grossly normal Speech and movement: Clear speech present Affect: normal affect Attitude: cooperative Thought process: Normal thought process present Course Course Course Narrative: 61-year-old male with multiple medical problems who presents emergency department for evaluation shortness of breath while he was receiving a packed red blood cell transfusion by his senior talent management consultant. The patient was recently hospitalized from 11/18/2021 until 11/26/2021 for a GI bleed possibly secondary to gastric ulcer who has been short of breath, had no appetite and has been feeling weak since being discharged. Vital signs did reveal low blood pressure of 95/56 elevated respiratory rate of 25. Lung exam revealed rales at bases. Rectal exam did reveal Hemoccult-positive stool. Differential for the patient short of breath include CHF, anemia, pulmonary embolism. Laboratory evaluation was ordered. 1629: Laboratory evaluation: Patient is anemic with an H&H of 7.1 and 22.8. BNP was slightly elevated 129, troponin was detectable but not elevated at 9.8. Twelve EKG revealed paced rhythm. CT pulmonary angiogram PE protocol pending. Given the patient's anemia, suspect this may be the cause of his shortness of breath and that the patient upon need to be admitted for slow transfusions. At the end of my shift, the patient's CT of his chest is pending therefore the patient's care was turned over to my colleague, Dr. Anna Michelle. MDM - SOB/Dyspnea Lab Data Result diagrams: 12/01/21 14:48 12/01/21 14:49 Labs: Lab Results 12/01/21 12/01/21 12/01/21 Range/Units 14:47 14:48 14:48 WBC 12.0 H (4.8-10.8) X10*3/uL RBC 2.44 L (4.60-5.80) X10*6/uL Hgb 7.1 L (14.0-18.0) g/dl Hct 22.8 L (42.0-52.0) % MCV 93.4 (80.0-98.0) fL MCH 29.1 (27.0-33.0) pg MCHC 31.1 (31.0-36.0) g/dl RDW 16.2 H (11.0-16.0) % Plt Count 529 H (160-400) X10*3/uL MPV 10.3 (9.4-12.4) fL Immature Gran % (Auto) 0.9 H (0.0-0.4) % Neut % (Auto) 80.8 H (45-73) % Lymph % (Auto) 8.7 L (20-40) % Grayson % (Auto) 7.9 (2-11) % Eos % (Auto) 1.3 (0-4) % Baso % (Auto) 0.4 (0-2) % Lymph # (Auto) 1.0 L (1.2-4.9) X10*3/uL Grayson # (Auto) 0.9 (0.1-1.2) X10*3/uL Eos # (Auto) 0.2 (0.0-0.4) X10*3/uL Baso # (Auto) 0.1 (0.0-0.2) X10*3/uL Abs Immat Gran (auto) 0.11 H (0.00-0.03) X10*3/uL Absolute Neuts (auto) 9.7 H (2.0-8.3) x10*3/uL Absolute Nucleated RBC 2.460 H (0.0-0.012) X10*3/uL Nucleated RBC % (auto) 20.6 H (0.0-0.2) /100WBC PT (9.9-13.0) SEC INR (0.9-1.1) APTT (24.1-38.0) SEC D-Dimer High Sensitivty NG/ML Sodium (135-145) mmol/L Potassium (3.3-5.1) mmol/L Chloride (96-108) mmol/L Carbon Dioxide (22-29) mmol/L Anion Gap (12-20) BUN (9-16) mg/dL Creatinine (0.5-1.4) mg/dL Estim Creat Clear Calc Estimated GFR Random Glucose (60-115) mg/dL Lactic Acid 1.1 (0.5-2.0) mmol/L Calcium (8.4-10.2) mg/dL Total Bilirubin (0.0-1.0) mg/dL AST (5-37) U/L ALT (0-40) U/L Alkaline Phosphatase (39-117) U/L Total Creatine Kinase (38-174) U/L Troponin I High Sens 9.8 (<3.5-35.0) ng/L B-Natriuretic Peptide 129 H (<100) pg/mL Total Protein (6.5-8.0) g/dL Albumin (3.5-5.0) g/dL Stool Occult Blood (NEGATIVE) COVID-19 (SHANICE) (Negative) COVID-19 Clin Com Influenza Type A (LORRIE) (Negative) Influenza Type B (LORRIE) (Negative) Influenza A & B Note 12/01/21 12/01/21 12/01/21 Range/Units 14:49 14:54 14:54 WBC (4.8-10.8) X10*3/uL RBC (4.60-5.80) X10*6/uL Hgb (14.0-18.0) g/dl Hct (42.0-52.0) % MCV (80.0-98.0) fL MCH (27.0-33.0) pg MCHC (31.0-36.0) g/dl RDW (11.0-16.0) % Plt Count (160-400) X10*3/uL MPV (9.4-12.4) fL Immature Gran % (Auto) (0.0-0.4) % Neut % (Auto) (45-73) % Lymph % (Auto) (20-40) % Grayson % (Auto) (2-11) % Eos % (Auto) (0-4) % Baso % (Auto) (0-2) % Lymph # (Auto) (1.2-4.9) X10*3/uL Grayson # (Auto) (0.1-1.2) X10*3/uL Eos # (Auto) (0.0-0.4) X10*3/uL Baso # (Auto) (0.0-0.2) X10*3/uL Abs Immat Gran (auto) (0.00-0.03) X10*3/uL Absolute Neuts (auto) (2.0-8.3) x10*3/uL Absolute Nucleated RBC (0.0-0.012) X10*3/uL Nucleated RBC % (auto) (0.0-0.2) /100WBC PT (9.9-13.0) SEC INR (0.9-1.1) APTT (24.1-38.0) SEC D-Dimer High Sensitivty NG/ML Sodium 138 (135-145) mmol/L Potassium 4.1 (3.3-5.1) mmol/L Chloride 96 (96-108) mmol/L Carbon Dioxide 33 H (22-29) mmol/L Anion Gap 13 (12-20) BUN 17 H (9-16) mg/dL Creatinine 0.85 (0.5-1.4) mg/dL Estim Creat Clear Calc 93.5 Estimated GFR > 60 Random Glucose 105 (60-115) mg/dL Lactic Acid (0.5-2.0) mmol/L Calcium 8.1 L (8.4-10.2) mg/dL Total Bilirubin 0.6 (0.0-1.0) mg/dL AST 24 (5-37) U/L ALT 18 (0-40) U/L Alkaline Phosphatase 45 (39-117) U/L Total Creatine Kinase 19 L (38-174) U/L Troponin I High Sens (<3.5-35.0) ng/L B-Natriuretic Peptide (<100) pg/mL Total Protein 5.1 L (6.5-8.0) g/dL Albumin 3.0 L (3.5-5.0) g/dL Stool Occult Blood (NEGATIVE) COVID-19 (SHANICE) Negative (Negative) COVID-19 Clin Com See Note Influenza Type A (LORRIE) Negative (Negative) Influenza Type B (LORRIE) Negative (Negative) Influenza A & B Note See Note 12/01/21 12/01/21 Range/Units 15:33 Unknown WBC (4.8-10.8) X10*3/uL RBC (4.60-5.80) X10*6/uL Hgb (14.0-18.0) g/dl Hct (42.0-52.0) % MCV (80.0-98.0) fL MCH (27.0-33.0) pg MCHC (31.0-36.0) g/dl RDW (11.0-16.0) % Plt Count (160-400) X10*3/uL MPV (9.4-12.4) fL Immature Gran % (Auto) (0.0-0.4) % Neut % (Auto) (45-73) % Lymph % (Auto) (20-40) % Grayson % (Auto) (2-11) % Eos % (Auto) (0-4) % Baso % (Auto) (0-2) % Lymph # (Auto) (1.2-4.9) X10*3/uL Grayson # (Auto) (0.1-1.2) X10*3/uL Eos # (Auto) (0.0-0.4) X10*3/uL Baso # (Auto) (0.0-0.2) X10*3/uL Abs Immat Gran (auto) (0.00-0.03) X10*3/uL Absolute Neuts (auto) (2.0-8.3) x10*3/uL Absolute Nucleated RBC (0.0-0.012) X10*3/uL Nucleated RBC % (auto) (0.0-0.2) /100WBC PT 16.7 H (9.9-13.0) SEC INR 1.5 H (0.9-1.1) APTT 37.2 (24.1-38.0) SEC D-Dimer High Sensitivty 2513 NG/ML Sodium (135-145) mmol/L Potassium (3.3-5.1) mmol/L Chloride (96-108) mmol/L Carbon Dioxide (22-29) mmol/L Anion Gap (12-20) BUN (9-16) mg/dL Creatinine (0.5-1.4) mg/dL Estim Creat Clear Calc Estimated GFR Random Glucose (60-115) mg/dL Lactic Acid (0.5-2.0) mmol/L Calcium (8.4-10.2) mg/dL Total Bilirubin (0.0-1.0) mg/dL AST (5-37) U/L ALT (0-40) U/L Alkaline Phosphatase (39-117) U/L Total Creatine Kinase (38-174) U/L Troponin I High Sens (<3.5-35.0) ng/L B-Natriuretic Peptide (<100) pg/mL Total Protein (6.5-8.0) g/dL Albumin (3.5-5.0) g/dL Stool Occult Blood POSITIVE (NEGATIVE) COVID-19 (SHANICE) (Negative) COVID-19 Clin Com Influenza Type A (LORRIE) (Negative) Influenza Type B (LORRIE) (Negative) Influenza A & B Note Discharge Plan Discharge Clinical Impression: Acute dyspnea, Anemia, Acute GI bleeding Patient Disposition: Still a Patient Prescriptions: No Action ferrous sulfate 325 mg (65 mg iron) tablet 325 mg PO DAILY 90 Days Qty: 90 1RF Corlanor 5 mg tablet 5 mg PO BID 90 Days Qty: 180 1RF Rx Instructions: must administer with a meal/food aspirin 81 mg tablet,delayed release (DR/EC) 81 mg PO DAILY Qty: 90 3RF Hold Instructions: Resume on 12/06/21. eplerenone [Inspra] 25 mg tablet 25 mg PO DAILY 0RF levothyroxine [Synthroid] 125 mcg tablet 300 mcg PO CRUZ 0RF levothyroxine 150 mcg tablet 150 mcg PO MOTUWETHFRSA 0RF Rx Instructions: 1 pill per day 6 days a week and 2 pills one day a week furosemide 20 mg tablet 40 mg PO BID Qty: 0 0RF omeprazole 40 mg Capsule,Delayed Release(Dr/Ec) 40 mg PO BID@0630,1630 Qty: 60 0RF
[2021-12-01 14:40] LABS: OBS Int Ctl Valid YES; OBS1 POSITIVE (NEGATIVE)
[2021-12-01 14:56] LABS: MANUAL DIFF FLAG NO
[2021-12-01 14:58] LABS: Basophils Absolute Auto 0.1 X10*3/uL (0.0-0.2); Basophils Percent Auto 0.4 % (0-2); Eosinophils Absolute Auto 0.2 X10*3/uL (0.0-0.4); Eosinophils Percent Auto 1.3 % (0-4); Hematocrit 22.8 % (42.0-52.0); Hemoglobin 7.1 g/dl (14.0-18.0); Imm Gran Abs Auto 0.11 X10*3/uL (0.00-0.03); Imm Gran Pct Auto 0.9 % (0.0-0.4); Lymphocytes Percent Auto 8.7 % (20-40); Mean Corpuscular HGB Conc 31.1 g/dl (31.0-36.0); Mean Corpuscular Hemoglobin 29.1 pg (27.0-33.0); Mean Corpuscular Volume 93.4 fL (80.0-98.0); Mean Platelet Volume 10.3 fL (9.4-12.4); Monocytes Absolute Auto 0.9 X10*3/uL (0.1-1.2); Monocytes Percent Auto 7.9 % (2-11); Neutrophils Absolute Auto 9.7 x10*3/uL (2.0-8.3); Neutrophils Percent Auto 80.8 % (45-73); Platelet Count 529 X10*3/uL (160-400); Red Blood Count 2.44 X10*6/uL (4.60-5.80); Red Cell Distribution Width 16.2 % (11.0-16.0)
[2021-12-01 14:59] LABS: NRBC Pct Auto 20.6 /100WBC (0.0-0.2)
[2021-12-01 15:13] LABS: Lactic Acid 1.1 mmol/L (0.5-2.0)
[2021-12-01 15:19] LABS: Alanine Aminotransferase 18 U/L (0-40); Alkaline Phosphatase 45 U/L (39-117); Anion Gap 13 (12-20); Aspartate Amino Transferase 24 U/L (5-37); Bilirubin Total 0.6 mg/dL (0.0-1.0); Blood Urea Nitrogen 17 mg/dL (9-16); Calcium 8.1 mg/dL (8.4-10.2); Carbon Dioxide 33 mmol/L (22-29); Chloride 96 mmol/L (96-108); Creatinine Clr Calc Pharmacy 93.5; Estimated Glomerular Filt Rate > 60; Glucose Random 105 mg/dL (60-115); Potassium 4.1 mmol/L (3.3-5.1); Sodium 138 mmol/L (135-145); Total Protein 5.1 g/dL (6.5-8.0)
[2021-12-01 15:21] LABS: B Type Natriuretic Peptide 129 pg/mL (<100); Troponin-I High Sensitivity 9.8 ng/L (<3.5-35.0)
[2021-12-01 15:22] LABS: Influenza A Negative (Negative); Influenza B2 Negative (Negative)
[2021-12-01 15:23] LABS: COVID-19 Test Negative (Negative); IDNOW Serial# 16C4AD1C
[2021-12-01 15:51] LABS: INTERNATIONAL NORM RATIO 1.5 (0.9-1.1); Prothrombin Time 16.7 SEC (9.9-13.0)
[2021-12-01 15:53] LABS: D Dimer High Sensitivity 2513 NG/ML
[2021-12-01 15:54] LABS: Partial Thromboplastin Time 37.2 SEC (24.1-38.0)
[2021-12-01] MEDS: iohexoL 350 MG/ML 100 ML INFUS..BTL IV (16:46)
[2021-12-01 17:14] LABS: Appearance Urine CLEAR; Color Urine YELLOW; Glucose Urine UA NEG (NEG); Leukocyte Esterase Urine NEG (NEG); Nitrite Urine NEG (NEG); PH 5.5 (5.0-8.0); Specific Gravity - Urine 1.025 (1.005-1.025); Urine Blood NEG (NEG); Urine Ketones NEG (NEG); Urine Protein NEG (NEG-TRACE)
--- NOTE | 2021-12-01 18:04 | PHA.MEDREC ---
Addendum entered by Omar Jimenez, [facility] 12/01/21 18:05: Aspirin is on hold, lasix increased to 60 mg bid Original Note: Pharmacy Consult ? Medication Reconciliation Pharmacy has completed the medication reconciliation. Spoke with Mrs. Monahan
[2021-12-01] MEDS: Morphine Sulfate 2 MG/ML CARTRIDGE 1 MG IVPUSH ×2 (18:15→23:42)
--- NOTE | 2021-12-01 18:41 | PC.NURSE ---
pt with episode of dsat - pt was cough and unable to clear his airway - SaO2 to 87%, sat pt up in bed and he was able to spit up a moderate amount of phlegm.
[2021-12-01] MEDS: Furosemide 20 MG/2 ML VIAL 10 MG IVPUSH (18:55)
--- NOTE | 2021-12-01 20:52 | PC.NURSE ---
Blood bank called ED. RBCs unit ready.
--- NOTE | 2021-12-01 21:21 | P.HPHOSP_ITS ---
History of Present Illness Date of Service: 12/01/21 Chief Complaint: shortness of breath 61-year-old male with a past medical history of hypertension, hyperlipidemia, history of severe aortic stenosis, bioprosthetic aortic wall, LBBB, CHF status post AICD, hypothyroidism, history of complete heart block, Hodgkin's lymphoma, SANGEETA syndrome, history of ITP, multinodular thyroid, remote history of pulmonary embolism; history of GI bleed, anemia; presented to the hospital today with a chief complaint of shortness of breath. Patient reports that he has had anemia and went to the clinic for outpatient blood transfusion and developed shortness of breath and subsequently sent to the ER for further evaluation. Reports he has been complaint with his home medications. The week prior he was started on Lasix for few days; for the past few days he has been taking his home medications. Denies any orthopnea PND. Denies any chest pain or palpitations. Denies any fever chills cough, GI symptoms. Review of all other systems is negative except mentioned above ER course: Per ER team patient was noted to be short of breath, chest x-ray showed mild pleural effusions; CT chest also showed patchy infiltrates but patient denied any cough or sputum production denies any fevers. Did not consider antibiotics- presume these findings to be secondary to CHF. Given Lasix. Patient also being ordered 1 unit of PRBC. Admitted for further management. [facility] Medical History Anemia Aortic stenosis, severe Bilateral pulmonary embolism Cardiac resynchronization therapy defibrillator (PROCESS MOLD TECHNICIAN-D) in place Complete heart block Congestive heart failure COVID-19 COVID-19 vaccine series completed Hallandale syndrome Fever of unknown origin HFrEF (heart failure with reduced ejection fraction) Hodgkins lymphoma Hypocalcemia Hypotension (arterial) Hypothyroidism LBBB (left bundle branch block) Leukocytosis Low TSH level Lung infiltrate Multinodular thyroid Multinodular thyroid NICM (nonischemic cardiomyopathy) Osteoporosis Pacemaker Pulmonary embolism Recurrent pleural effusion on right Rib fracture Rib pain Right hip pain Shortness of breath Sinus tachycardia Thrombocytopenia Vitamin D deficiency Family History Father Healthy adult male Mother Bladder cancer Surgical History H/O splenectomy History of appendectomy History of cardiac pacemaker History of endoscopy History of esophagogastroduodenoscopy (EGD) History of hip surgery Hx of colonoscopy S/P TAVR (transcatheter aortic valve replacement) Social History Household Members: Spouse and Children Housing: House Are you a primary primary care provider to a significant other at home: No Do you presently have visiting nurse or other home services: No Alcohol intake: current Alcohol intake frequency: holidays/special occasions only Patient Tobacco Use Status: Never used Tobacco e-Cigarette/Vaping Use: Never Used Second Hand Smoke Exposure: No Advance Directives: Yes Advance Directives Information Provided: No Advance Directives on File: No Advance Directives Date on File: 01/25/21 service: Yes Current occupational status: employed Current occupational exposures/hazards: No Meds Allergies Allergy/AdvReac Type Severity Reaction Status Date / Time No Known Allergies Allergy Verified 11/29/21 16:14 [No Known Allergies*] Active Medications: Current Medications Acetaminophen (Acetaminophen 325 Mg Tablet) 650 mg PO Q6H PRN PRN Reason: Pain, Mild (Pain Scale 1-3) Furosemide (Furosemide 40 Mg/4 Ml Vial) 40 mg IVPUSH BIDWM [facility]; Protocol Pharmacy Consult (Consult Rx Perform Med Rec) 1 each MISCELLANE ONCE PRN PRN Reason: Consult order Sodium Chloride (0.9 % Sodium Chloride Flush 3 Ml Syringe) [facility] Medications Medication Instructions Recorded Confirmed Last Taken Type eplerenone 25 mg tablet (Inspra) 25 mg PO DAILY 11/05/21 12/01/21 11/30/21 History levothyroxine 125 mcg tablet 300 mcg PO CRUZ 11/18/21 12/01/21 11/28/21 History (Synthroid) levothyroxine 150 mcg tablet 150 mcg PO MOTUWETHFRSA 11/18/21 12/01/21 12/01/21 History furosemide 20 mg tablet 60 mg PO BID 12/01/21 12/01/21 11/30/21 History ivabradine 5 mg tablet (Corlanor) 5 mg PO BIDWM 12/01/21 12/01/21 11/30/21 History Physical Exam Vital Signs and Narrative: Vital Signs: Last Vital Signs Temp 99.7 F 12/01/21 21:10 Pulse 106 H 12/01/21 21:10 Resp 30 H 12/01/21 21:10 BP 98/58 L 12/01/21 21:10 Pulse Ox 94 12/01/21 20:00 BMI result Body Mass Index 24.7 Gen: Appears be in no acute distress HEENT: NCAT, Moist mucosa. Pulmonary: Coarse breath sounds CVS: Normal S1-S2 Abdomen: BS+, Soft, Nontender Extremities: Warm well perfused Neuro: Alert and awake. Results Labs CBC and Chem 7: 12/01/21 14:48 12/01/21 14:49 Labs: Laboratory Results - last 24 hr 12/01/21 12/01/21 12/01/21 09:55 14:47 14:48 MCV 93.4 MCH 29.1 MCHC 31.1 RDW 16.2 H Plt Count 529 H MPV 10.3 Immature Gran % (Auto) 0.9 H Neut % (Auto) 80.8 H Lymph % (Auto) 8.7 L Adams % (Auto) 7.9 Eos % (Auto) 1.3 Baso % (Auto) 0.4 Lymph # (Auto) 1.0 L Adams # (Auto) 0.9 Eos # (Auto) 0.2 Baso # (Auto) 0.1 Abs Immat Gran (auto) 0.11 H Absolute Neuts (auto) 9.7 H Absolute Nucleated RBC 2.460 H Nucleated RBC % (auto) 20.6 H PT INR APTT D-Dimer High Sensitivty Anion Gap Estim Creat Clear Calc Estimated GFR Random Glucose Lactic Acid Calcium Total Bilirubin AST ALT Alkaline Phosphatase Total Creatine Kinase Troponin I High Sens 9.8 B-Natriuretic Peptide 129 H Total Protein Albumin Urine Color Urine Appearance Urine pH Ur Specific Celestine Urine Protein Urine Glucose (UA) Urine Ketones Urine Blood Urine Nitrite Ur Leukocyte Esterase Stool Occult Blood COVID-19 (SHANICE) COVID-19 Clin Com Influenza Type A (LORRIE) Influenza Type B (LORRIE) Influenza A & B Note Blood Type A Positive Antibody Screen NEGATIVE Crossmatch See Detail 12/01/21 12/01/21 12/01/21 14:48 14:49 14:54 MCV MCH MCHC RDW Plt Count MPV Immature Gran % (Auto) Neut % (Auto) Lymph % (Auto) Adams % (Auto) Eos % (Auto) Baso % (Auto) Lymph # (Auto) Adams # (Auto) Eos # (Auto) Baso # (Auto) Abs Immat Gran (auto) Absolute Neuts (auto) Absolute Nucleated RBC Nucleated RBC % (auto) PT INR APTT D-Dimer High Sensitivty Anion Gap 13 Estim Creat Clear Calc 93.5 Estimated GFR > 60 Random Glucose 105 Lactic Acid 1.1 Calcium 8.1 L Total Bilirubin 0.6 AST 24 ALT 18 Alkaline Phosphatase 45 Total Creatine Kinase 19 L Troponin I High Sens B-Natriuretic Peptide Total Protein 5.1 L Albumin 3.0 L Urine Color Urine Appearance Urine pH Ur Specific Celestine Urine Protein Urine Glucose (UA) Urine Ketones Urine Blood Urine Nitrite Ur Leukocyte Esterase Stool Occult Blood COVID-19 (SHANICE) COVID-19 Mygistics Com Influenza Type A (LORRIE) Negative Influenza Type B (LORRIE) Negative Influenza A & B Note See Note Blood Type Antibody Screen Crossmatch 12/01/21 12/01/21 12/01/21 14:54 15:33 16:54 MCV MCH MCHC RDW Plt Count MPV Immature Gran % (Auto) Neut % (Auto) Lymph % (Auto) Adams % (Auto) Eos % (Auto) Baso % (Auto) Lymph # (Auto) Adams # (Auto) Eos # (Auto) Baso # (Auto) Abs Immat Gran (auto) Absolute Neuts (auto) Absolute Nucleated RBC Nucleated RBC % (auto) PT 16.7 H INR 1.5 H APTT 37.2 D-Dimer High Sensitivty 2513 Anion Gap Estim Creat Clear Calc Estimated GFR Random Glucose Lactic Acid Calcium Total Bilirubin AST ALT Alkaline Phosphatase Total Creatine Kinase Troponin I High Sens B-Natriuretic Peptide Total Protein Albumin Urine Color YELLOW Urine Appearance CLEAR Urine pH 5.5 Ur Specific Celestine 1.025 Urine Protein NEG Urine Glucose (UA) NEG Urine Ketones NEG Urine Blood NEG Urine Nitrite NEG Ur Leukocyte Esterase NEG Stool Occult Blood COVID-19 (SHANICE) Negative COVID-19 Mygistics Com See Note Influenza Type A (LORRIE) Influenza Type B (LORRIE) Influenza A & B Note Blood Type Antibody Screen Crossmatch 12/01/21 Unknown MCV MCH MCHC RDW Plt Count MPV Immature Gran % (Auto) Neut % (Auto) Lymph % (Auto) Adams % (Auto) Eos % (Auto) Baso % (Auto) Lymph # (Auto) Adams # (Auto) Eos # (Auto) Baso # (Auto) Abs Immat Gran (auto) Absolute Neuts (auto) Absolute Nucleated RBC Nucleated RBC % (auto) PT INR APTT D-Dimer High Sensitivty Anion Gap Estim Creat Clear Calc Estimated GFR Random Glucose Lactic Acid Calcium Total Bilirubin AST ALT Alkaline Phosphatase Total Creatine Kinase Troponin I High Sens B-Natriuretic Peptide Total Protein Albumin Urine Color Urine Appearance Urine pH Ur Specific Celestine Urine Protein Urine Glucose (UA) Urine Ketones Urine Blood Urine Nitrite Ur Leukocyte Esterase Stool Occult Blood POSITIVE COVID-19 (SHANICE) COVID-19 Clin Com Influenza Type A (LORRIE) Influenza Type B (LORRIE) Influenza A & B Note Blood Type Antibody Screen Crossmatch Imaging Radiologist's Impressions: Impressions Chest CTA 12/01/21 16:54 IMPRESSION: 1. No evidence for pulmonary embolism. 2. Diffuse bilateral patchy infiltrates and bilateral pleural effusions, left greater than right. These are nonspecific, but suggest an infectious/inflammatory process. A cardiogenic etiology cannot be excluded. Correlate clinically. Short-term radiographic follow-up is recommended as clinically indicated. VTE: Negative. Assessment and Plan (1) Anemia: Status: Acute (2) Congestive heart failure: Qualifiers: Heart failure type: diastolic Status: Acute Plan 61-year-old male with a past medical history of hypertension, hyperlipidemia, history of severe aortic stenosis, bioprosthetic aortic wall, LBBB, CHF status post AICD, hypothyroidism, history of complete heart block, Hodgkin's lymphoma, SANGEETA syndrome, history of ITP, multinodular thyroid, remote history of pulmonary embolism; history of GI bleed, anemia; presented to the hospital today with a chief complaint of shortness of breath. Admitted for following shortness of breath: Symptoms started after patient being started on the transfusion as outpatient; transmission was dropped and sent to the ER. Currently patient breathing comfortably on supplemental oxygen CT chest showed patchy infiltrates - question pneumonia versus CHF. Patient denies any cough sputum production or fevers. Will obtain procalcitonin Will hold of antibiotics for now Chest pain: atypical. EKG non ischemis; Trop- 9.8. CTA chest pending. morphine prn. Anemia: Patient hemoglobin noted to be 7.1. Denies any gross signs of bleeding. Patient being ordered 1 unit of blood. Acute CHF: Hx severe aortic stenosis status post TAVR/ bioprosthetic valve aortic valve: History of AICD: Monitor on telemetry Daily weights and I's and O's Will give the patient on Lasix 40 mg IV b.i.d. cardiology consult history of hypothyroidism: Continue home levothyroxine DVT prophylaxis: SCD boots Code status: Full code Quality Stroke Does the patient have a stroke diagnosis?: No VTE Prior VTE?: No VTE Risk Level:: Medical - moderate - high VTE Device Contraindication: Treatment Not Indicated VTE Drug Contraindication: N/A - Med Ordered
--- NOTE | 2021-12-01 22:58 | PC.NURSE ---
Pt reported new onset sharp back pain. Pt O2 sat is decreased to 91% on 4 L/min and increased tachypnea. Blood transfusion paused at this time. Provider notified and CTA ordered for pt.
[2021-12-02] VITALS (7 sets, daily range): BP systolic 92–106; BP diastolic 52–59; PULSE 87–107; RESP 17–22; TEMP 36.9–37.7; O2SAT 90–95; BMI 24.0
--- NOTE | 2021-12-02 00:05 | PC.NURSE ---
This RN called lab to inform them that blood transfusion was discontinued 2 hours in due to sudden onset sharp back pain accompanied by tachypnea and decreased O2 sat. Lab informed this RN to order transfusion reaction labs and deliver the unit of blood in question to the lab in a biohazard bag.
[2021-12-02 00:24] LABS: Troponin-I High Sensitivity 7.7 ng/L (<3.5-35.0)
[2021-12-02 01:12] LABS: Transfusion Rxn Urine Blood NEG
[2021-12-02] MEDS: Omeprazole 40 MG CAPSULE.DR PO (05:47)
[2021-12-02] MEDS: Levothyroxine Sodium 150 MCG TABLET PO (05:47)
[2021-12-02] MEDS: 0.9 % Sodium Chloride Flush 3 ML SYRINGE IVFLUSH ×3 (08:17→20:32)
[2021-12-02] MEDS: Furosemide 40 MG/4 ML VIAL IVPUSH ×2 (08:17→16:39)
[2021-12-02] MEDS: Ferrous Sulfate 324 MG TABLET.DR PO (08:18)
--- NOTE | 2021-12-02 08:20 | MHC.CM.PN ---
CM met with Patient at bedside. Patient lives in a house with his /HCP/Lisette @ [phone] and his 2 children ages 17 and 18 years of age. 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 Home/no services is the goal and CM has initiated and will follow for dc planning. Patient has received Pfizer/CovVocalocity vax X3 and his PCP is Dr. Yesica Avila.
[2021-12-02 08:40] LABS: MANUAL DIFF FLAG NO
[2021-12-02 08:47] LABS: Basophils Absolute Auto 0.1 X10*3/uL (0.0-0.2); Basophils Percent Auto 0.8 % (0-2); Eosinophils Absolute Auto 0.2 X10*3/uL (0.0-0.4); Eosinophils Percent Auto 2.1 % (0-4); Hemoglobin 7.7 g/dl (14.0-18.0); Imm Gran Abs Auto 0.09 X10*3/uL (0.00-0.03); Imm Gran Pct Auto 0.9 % (0.0-0.4); Lymphocytes Percent Auto 9.4 % (20-40); Mean Corpuscular HGB Conc 30.8 g/dl (31.0-36.0); Mean Corpuscular Hemoglobin 28.7 pg (27.0-33.0); Mean Corpuscular Volume 93.3 fL (80.0-98.0); Mean Platelet Volume 10.3 fL (9.4-12.4); Monocytes Absolute Auto 0.9 X10*3/uL (0.1-1.2); Monocytes Percent Auto 8.4 % (2-11); Neutrophils Absolute Auto 8.1 x10*3/uL (2.0-8.3); Neutrophils Percent Auto 78.4 % (45-73); Platelet Count 451 X10*3/uL (160-400); Red Blood Count 2.68 X10*6/uL (4.60-5.80); Red Cell Distribution Width 16.5 % (11.0-16.0); White Blood Count 10.3 X10*3/uL (4.8-10.8)
[2021-12-02 08:48] LABS: NRBC Pct Auto 21.1 /100WBC (0.0-0.2)
[2021-12-02 09:04] LABS: Anion Gap 13 (12-20); Blood Urea Nitrogen 13 mg/dL (9-16); Calcium 8.1 mg/dL (8.4-10.2); Carbon Dioxide 32 mmol/L (22-29); Chloride 96 mmol/L (96-108); Creatinine Clr Calc Pharmacy 107.4; Estimated Glomerular Filt Rate > 60; Glucose Random 108 mg/dL (60-115); Potassium 3.8 mmol/L (3.3-5.1); Sodium 137 mmol/L (135-145)
--- NOTE | 2021-12-02 09:48 | PC.NURSE ---
left on hold by Chuy Alba RN due to transfusion reaction
--- NOTE | 2021-12-02 12:29 | P.CONCA_ITS ---
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 Appears he presented to us with GI bleed and anemia and left the hospital few days ago. He said he was not receiving any diuretics while he was in the hospital. He has some blood workup done outpatient which showed anemia and he brought in for blood transfusion. White getting a blood transfusion he developed shortness of breath and was admitted for congestive heart failure. Chest x-ray showed mild pleural effusions. CT showed patchy infiltrates. Overall clinical story appear to be related to heart failure in the setting of missing diuretics and blood transfusion. He was given IV diuretics and has been feeling better. [facility] Past Medical History Medical History Anemia Aortic stenosis, severe Bilateral pulmonary embolism Cardiac resynchronization therapy defibrillator ([employer]-D) in place Complete heart block Congestive heart failure COVID-19 COVID-19 vaccine series completed [place] syndrome Fever of unknown origin HFrEF (heart failure with reduced ejection fraction) Hodgkins lymphoma Hypocalcemia Hypotension (arterial) Hypothyroidism LBBB (left bundle branch block) Leukocytosis Low TSH level Lung infiltrate Multinodular thyroid Multinodular thyroid NICM (nonischemic cardiomyopathy) Osteoporosis Pacemaker Pulmonary embolism Recurrent pleural effusion on right Rib fracture Rib pain Right hip pain Shortness of breath Sinus tachycardia Thrombocytopenia Vitamin D deficiency Family History Family History Father Healthy adult male Mother Bladder cancer Surgical History Surgical History H/O splenectomy History of appendectomy History of cardiac pacemaker History of endoscopy History of esophagogastroduodenoscopy (EGD) History of hip surgery Hx of colonoscopy S/P TAVR (transcatheter aortic valve replacement) Social History Social History Household Members: Spouse and Children Housing: House Are you a primary caretaker to a significant other at home: No Do you presently have visiting nurse or other home services: No Alcohol intake: current Alcohol intake frequency: holidays/special occasions only Patient Tobacco Use Status: Never used Tobacco e-Cigarette/Vaping Use: Never Used Second Hand Smoke Exposure: No Use of substances other than those prescribed or required for medical reasons: No Currently Displaying Signs/Symptoms of Drug Intoxication Withdrawal: No Any prior treatment program specific to substance use: No Have you been hit, kicked, punched, or otherwise hurt by someone within the past year? If so, by whom?: No Do you feel safe in your current relationship?: Yes Is there a partner from a previous relationship who is making you feel unsafe now?: No Are you made to feel afraid or neglected: No Advance Directives: Yes Advance Directives Information Provided: No Advance Directives on File: Yes Advance Directives Date on File: 01/07/21 Do you have thoughts of harming others: None Do you have a plan to hurt others: No Plan Recently lost weight without trying: Unsure Eating poorly because of decreased appetite: No Nutrition Risks: No Nutritional Risk service: Yes Current occupational status: employed Current occupational exposures/hazards: No Meds Allergies Allergy/AdvReac Type Severity Reaction Status Date / Time No Known Allergies Allergy Verified 11/29/21 16:14 [No Known Allergies*] Active Medications: Current Medications Acetaminophen (Acetaminophen 325 Mg Tablet) 650 mg PO Q6H PRN PRN Reason: Pain, Mild (Pain Scale 1-3) Albuterol/Ipratropium (Albuterol/Iprat 2.5/0.5mg 3 Ml Ampul.Neb) 3 ml INHALE RQ4H PRN PRN Reason: Shortness of Breath/Wheezing Ferrous Sulfate (Ferrous Sulfate 324 Mg Tablet.) 324 mg PO DAILY [facility] Last Admin: 12/02/21 08:18 Dose: 324 mg Documented by: Furosemide (Furosemide 40 Mg/4 Ml Vial) 40 mg IVPUSH BIDWM [facility]; Protocol Last Admin: 12/02/21 08:17 Dose: 40 mg Documented by: Levothyroxine Sodium (Levothyroxine Sodium 150 Mcg Tablet) 150 mcg PO MoTuWeThFrSa@0600 [facility] Last Admin: 12/02/21 05:47 Dose: 150 mcg Documented by: Levothyroxine Sodium (Levothyroxine Sodium 150 Mcg Tablet) 300 mcg PO Russell@0600 [facility] Morphine Sulfate (Morphine Sulfate 2 Mg/Ml Cartridge) 1 mg IVPUSH Q4H PRN; Protocol PRN Reason: pain/SOB Last Admin: 12/01/21 23:42 Dose: 1 mg Documented by: Patient Own Med ( Ivabradine [Corlanor ] 5 Mg Tablet) 5 mg PO BIDWM [facility] Last Admin: 12/02/21 09:30 Dose: 5 mg Documented by: Omeprazole (Omeprazole 40 Mg Capsule.Dr) 40 mg PO BID@0630,1630 [facility] Last Admin: 12/02/21 05:47 Dose: 40 mg Documented by: Pharmacy Consult (Consult Rx Perform Med Rec) 1 each MISCELLANE ONCE PRN PRN Reason: Consult order Sodium Chloride (0.9 % Sodium Chloride Flush 3 Ml Syringe) 3 ml IVFLUSH QSHIFT [facility] Last Admin: 12/02/21 08:17 Dose: 3 ml Documented by: Home Medications Medication Instructions Recorded Confirmed Last Taken Type eplerenone 25 mg tablet (Inspra) 25 mg PO DAILY 11/05/21 12/01/21 11/30/21 History levothyroxine 125 mcg tablet 300 mcg PO RUSSELL 11/18/21 12/01/21 11/28/21 History (Synthroid) levothyroxine 150 mcg tablet 150 mcg PO MOTUWETHFRSA 11/18/21 12/01/21 12/01/21 History furosemide 20 mg tablet 60 mg PO BID 12/01/21 12/01/21 11/30/21 History ivabradine 5 mg tablet (Corlanor) 5 mg PO BIDWM 12/01/21 12/01/21 11/30/21 Histo ry Physical Exam Vital Signs: Vital Signs: Last Vital Signs Temp 98.6 F 12/02/21 11:19 Pulse 97 12/02/21 11:19 Resp 18 12/02/21 11:19 BP 96/58 L 12/02/21 11:19 Pulse Ox 94 12/02/21 11:19 BMI result Body Mass Index 24.0 GENERAL APPEARANCE: in no acute distress, frail. NECK: no carotid bruit, mild jugular venous distention. SKIN: no suspicious lesions, warm and dry. HEART: Systolic murmur aortic area, regular rate and rhythm. LUNGS: clear to auscultation bilaterally. ABDOMEN: soft, nontender. EXTREMITIES: no edema. PERIPHERAL PULSES: equal. NEUROLOGIC: No gross deficits, AAO X 3 Objective Labs and Meds Result diagrams: 12/02/21 08:25 12/02/21 08:25 Lab results: Laboratory Results - last 24 hr 12/01/21 12/01/21 12/01/21 09:55 14:47 14:48 WBC 12.0 H RBC 2.44 L Hgb 7.1 L Hct 22.8 L MCV 93.4 MCH 29.1 MCHC 31.1 RDW 16.2 H Plt Count 529 H MPV 10.3 Immature Gran % (Auto) 0.9 H Neut % (Auto) 80.8 H Lymph % (Auto) 8.7 L [place] % (Auto) 7.9 Eos % (Auto) 1.3 Baso % (Auto) 0.4 Lymph # (Auto) 1.0 L [place] # (Auto) 0.9 Eos # (Auto) 0.2 Baso # (Auto) 0.1 Abs Immat Gran (auto) 0.11 H Absolute Neuts (auto) 9.7 H Absolute Nucleated RBC 2.460 H Nucleated RBC % (auto) 20.6 H PT INR APTT D-Dimer High Sensitivty Sodium Potassium Chloride Carbon Dioxide Anion Gap BUN Creatinine Estim Creat Clear Calc Estimated GFR Random Glucose Lactic Acid Calcium Total Bilirubin AST ALT Alkaline Phosphatase Total Creatine Kinase Troponin I High Sens 9.8 B-Natriuretic Peptide 129 H Total Protein Albumin Urine Color Urine Appearance Urine pH Ur Specific [place] Urine Protein Urine Glucose (UA) Urine Ketones Urine Blood Ur Blood, Post-Transfus Urine Nitrite Ur Leukocyte Esterase Stool Occult Blood COVID-19 (SHANICE) COVID-19 Clin Com Influenza Type A (LORRIE) Influenza Type B (LORRIE) Influenza A & B Note Blood Type A Positive Antibody Screen NEGATIVE Crossmatch See Detail Clerical Work Check Hemolysis Bld Bag Check Icterus Blood Bag Check Post-Trans Blood Type Post-Trans DONYA Poly Post-Trans Add Testing Post-Tx Rxn DONYA Result 12/01/21 12/01/21 12/01/21 14:48 14:49 14:54 WBC RBC Hgb Hct MCV MCH MCHC RDW Plt Count MPV Immature Gran % (Auto) Neut % (Auto) Lymph % (Auto) [place] % (Auto) Eos % (Auto) Baso % (Auto) Lymph # (Auto) [place] # (Auto) Eos # (Auto) Baso # (Auto) Abs Immat Gran (auto) Absolute Neuts (auto) Absolute Nucleated RBC Nucleated RBC % (auto) PT INR APTT D-Dimer High Sensitivty Sodium 138 Potassium 4.1 Chloride 96 Carbon Dioxide 33 H Anion Gap 13 BUN 17 H Creatinine 0.85 Estim Creat Clear Calc 93.5 Estimated GFR > 60 Random Glucose 105 Lactic Acid 1.1 Calcium 8.1 L Total Bilirubin 0.6 AST 24 ALT 18 Alkaline Phosphatase 45 Total Creatine Kinase 19 L Troponin I High Sens B-Natriuretic Peptide Total Protein 5.1 L Albumin 3.0 L Urine Color Urine Appearance Urine pH Ur Specific [place] Urine Protein Urine Glucose (UA) Urine Ketones Urine Blood Ur Blood, Post-Transfus Urine Nitrite Ur Leukocyte Esterase Stool Occult Blood COVID-19 (SHANICE) COVID-19 Clin Com Influenza Type A (LORRIE) Negative Influenza Type B (LORRIE) Negative Influenza A & B Note See Note Blood Type Antibody Screen Crossmatch Clerical Work Check Hemolysis Bld Bag Check Icterus Blood Bag Check Post-Trans Blood Type Post-Trans DONYA Poly Post-Trans Add Testing Post-Tx Rxn DONYA Result 12/01/21 12/01/21 12/01/21 14:54 15:33 16:54 WBC RBC Hgb Hct MCV MCH MCHC RDW Plt Count MPV Immature Gran % (Auto) Neut % (Auto) Lymph % (Auto) [place] % (Auto) Eos % (Auto) Baso % (Auto) Lymph # (Auto) [place] # (Auto) Eos # (Auto) Baso # (Auto) Abs Immat Gran (auto) Absolute Neuts (auto) Absolute Nucleated RBC Nucleated RBC % (auto) PT 16.7 H INR 1.5 H APTT 37.2 D-Dimer High Sensitivty 2513 Sodium Potassium Chloride Carbon Dioxide Anion Gap BUN Creatinine Estim Creat Clear Calc Estimated GFR Random Glucose Lactic Acid Calcium Total Bilirubin AST ALT Alkaline Phosphatase Total Creatine Kinase Troponin I High Sens B-Natriuretic Peptide Total Protein Albumin Urine Color YELLOW Urine Appearance CLEAR Urine pH 5.5 Ur Specific [place] 1.025 Urine Protein NEG Urine Glucose (UA) NEG Urine Ketones NEG Urine Blood NEG Ur Blood, Post-Transfus Urine Nitrite NEG Ur Leukocyte Esterase NEG Stool Occult Blood COVID-19 (SHANICE) Negative COVID-19 Clin Com See Note Influenza Type A (LORRIE) Influenza Type B (LORRIE) Influenza A & B Note Blood Type Antibody Screen Crossmatch Clerical Work Check Hemolysis Bld Bag Check Icterus Blood Bag Check Post-Trans Blood Type Post-Trans DONYA Poly Post-Trans Add Testing Post-Tx Rxn DONYA Result 12/01/21 12/01/21 12/02/21 23:51 Unknown 00:21 WBC RBC Hgb Hct MCV MCH MCHC RDW Plt Count MPV Immature Gran % (Auto) Neut % (Auto) Lymph % (Auto) [place] % (Auto) Eos % (Auto) Baso % (Auto) Lymph # (Auto) [place] # (Auto) Eos # (Auto) Baso # (Auto) Abs Immat Gran (auto) Absolute Neuts (auto) Absolute Nucleated RBC Nucleated RBC % (auto) PT INR APTT D-Dimer High Sensitivty Sodium Potassium Chloride Carbon Dioxide Anion Gap BUN Creatinine Estim Creat Clear Calc Estimated GFR Random Glucose Lactic Acid Calcium Total Bilirubin AST ALT Alkaline Phosphatase Total Creatine Kinase Troponin I High Sens 7.7 B-Natriuretic Peptide Total Protein Albumin Urine Color Urine Appearance Urine pH Ur Specific [place] Urine Protein Urine Glucose (UA) Urine Ketones Urine Blood Ur Blood, Post-Transfus Urine Nitrite Ur Leukocyte Esterase Stool Occult Blood POSITIVE COVID-19 (SHANICE) COVID-19 Clin Com Influenza Type A (OLRRIE) Influenza Type B (LORRIE) Influenza A & B Note Blood Type Antibody Screen Crossmatch Clerical Work Check No Error Found Hemolysis Bld Bag Check None in Pre and Post Icterus Blood Bag Check None in Pre and Post Post-Trans Blood Type A Positive Post-Trans DONYA Poly NEGATIVE Post-Trans Add Testing No Post-Tx Rxn DONYA Result Not Reportable 12/02/21 12/02/21 12/02/21 00:21 08:25 08:25 WBC 10.3 RBC 2.68 L Hgb 7.7 L Hct 25.0 L MCV 93.3 MCH 28.7 MCHC 30.8 L RDW 16.5 H Plt Count 451 H MPV 10.3 Immature Gran % (Auto) 0.9 H Neut % (Auto) 78.4 H Lymph % (Auto) 9.4 L [place] % (Auto) 8.4 Eos % (Auto) 2.1 Baso % (Auto) 0.8 Lymph # (Auto) 1.0 L [place] # (Auto) 0.9 Eos # (Auto) 0.2 Baso # (Auto) 0.1 Abs Immat Gran (auto) 0.09 H Absolute Neuts (auto) 8.1 Absolute Nucleated RBC 2.170 H Nucleated RBC % (auto) 21.1 H PT INR APTT D-Dimer High Sensitivty Sodium 137 Potassium 3.8 Chloride 96 Carbon Dioxide 32 H Anion Gap 13 BUN 13 Creatinine 0.74 Estim Creat Clear Calc 107.4 Estimated GFR > 60 Random Glucose 108 Lactic Acid Calcium 8.1 L Total Bilirubin AST ALT Alkaline Phosphatase Total Creatine Kinase Troponin I High Sens B-Natriuretic Peptide Total Protein Albumin Urine Color Urine Appearance Urine pH Ur Specific [place] Urine Protein Urine Glucose (UA) Urine Ketones Urine Blood Ur Blood, Post-Transfus NEG Urine Nitrite Ur Leukocyte Esterase Stool Occult Blood COVID-19 (SHANICE) COVID-19 Clin Com Influenza Type A (LORRIE) Influenza Type B (LORRIE) Influenza A & B Note Blood Type Antibody Screen Crossmatch Clerical Work Check Hemolysis Bld Bag Check Icterus Blood Bag Check Post-Trans Blood Type Post-Trans DONYA Poly Post-Trans Add Testing Post-Tx Rxn DONYA Result Imaging Radiologist's impression: Impressions Chest CTA 12/01/21 16:54 IMPRESSION: 1. No evidence for pulmonary embolism. 2. Diffuse bilateral patchy infiltrates and bilateral pleural effusions, left greater than right. These are nonspecific, but suggest an infectious/inflammatory process. A cardiogenic etiology cannot be excluded. Correlate clinically. Short-term radiographic follow-up is recommended as clinically indicated. VTE: Negative. Assessment and Plan (1) Acute on chronic diastolic (congestive) heart failure: Status: Acute Plan Pleasant 61 gentleman with complex cardiovascular issues presenting for acute congestive heart failure in the setting of blood transfusion. He also did not receive diuretics while he was admitted to the hospital few days ago. Clinically he looks mildly overloaded. I think we continue IV diuretics today. At home he was taking 60 mg of Lasix in the morning and 40 in the afternoon previously. As he gets diuresed I think he can resume his home dose of diuretics. He is chronically hypotensive and medication should only be held if he has symptomatic hypertension. Monitor electrolytes and I's and O's closely. Thank you for allowing me to participate in the care of your patient. Please feel free to contact me if you have any questions. Procedures Date of Service Date of Service: 12/02/21
[2021-12-02 12:30] LABS: Urine Hemoglobin NEG
--- NOTE | 2021-12-02 16:15 | P.PNIM_ITS ---
Subjective Subjective Date of Service: 12/02/21 Interval History: Feeling better this morning denies shortness of breath, no abdominal pain, patient admitted for shortness of breath that started after he received half bag of blood , he denies chest pain no fevers no chills no headache, no dizziness no back pain. Patient noted to have small bowel movement with fresh blood in the toilet bowl this afternoon. Review of Systems Review of Systems: Yes all other systems are reviewed and are negative Physical Exam Vital Signs: Vital Signs: Last Vital Signs Temp 99.6 F 12/02/21 15:29 Pulse 93 12/02/21 15:29 Resp 19 12/02/21 15:29 BP 106/57 L 12/02/21 15:29 Pulse Ox 95 12/02/21 15:29 BMI result Body Mass Index 24.0 Const: Other: General: awake alert x3, no acute distress neck + JVD Resp:? no crackles, no use of accessory muscles CVS: S1,S2,RRR, no leg edema GI: +BS, NT, no distention extremities no edema Skin: No rash Neuro:? motor grossly intact Psych: appropriate affect Objective Data Active Medications Acetaminophen (Acetaminophen 325 Mg Tablet) 650 mg PO Q6H PRN PRN Reason: Pain, Mild (Pain Scale 1-3) Albuterol/Ipratropium (Albuterol/Iprat 2.5/0.5mg 3 Ml Ampul.Neb) 3 ml INHALE RQ4H PRN PRN Reason: Shortness of Breath/Wheezing Ferrous Sulfate (Ferrous Sulfate 324 Mg Tablet.) 324 mg PO DAILY [facility] Last Admin: 12/02/21 08:18 Dose: 324 mg Documented by: XENIA Furosemide (Furosemide 40 Mg/4 Ml Vial) 40 mg IVPUSH BIDWM [facility]; Protocol Last Admin: 12/02/21 08:17 Dose: 40 mg Documented by: XENIA Levothyroxine Sodium (Levothyroxine Sodium 150 Mcg Tablet) 150 mcg PO MoTuWeThFrSa@0600 [facility] Last Admin: 12/02/21 05:47 Dose: 150 mcg Documented by: MARICARMEN Levothyroxine Sodium (Levothyroxine Sodium 150 Mcg Tablet) 300 mcg PO Russell@0600 [facility] Morphine Sulfate (Morphine Sulfate 2 Mg/Ml Cartridge) 1 mg IVPUSH Q4H PRN; Protocol PRN Reason: pain/SOB Last Admin: 12/01/21 23:42 Dose: 1 mg Documented by: ANDRÉS Patient Own Med ( Ivabradine [Corlanor ] 5 Mg Tablet) 5 mg PO BIDWM [facility] Last Admin: 12/02/21 09:30 Dose: 5 mg Documented by: XENIA Pantoprazole Sodium (Pantoprazole Sodium 40 Mg/10 Ml Vial) 40 mg IVPUSH BID@0630,1630 [facility] Pharmacy Consult (Consult Rx Perform Med Rec) 1 each MISCELLANE ONCE PRN PRN Reason: Consult order Sodium Chloride (0.9 % Sodium Chloride Flush 3 Ml Syringe) 3 ml IVFLUSH QSHIFT [facility] Last Admin: 12/02/21 08:17 Dose: 3 ml Documented by: XENIA Labs CBC & Chem 7: 12/02/21 08:25 12/02/21 08:25 Labs: Laboratory Results - last 24 hr 12/01/21 12/01/21 12/01/21 09:55 16:54 23:51 MCV MCH MCHC RDW Plt Count MPV Immature Gran % (Auto) Neut % (Auto) Lymph % (Auto) [place] % (Auto) Eos % (Auto) Baso % (Auto) Lymph # (Auto) [place] # (Auto) Eos # (Auto) Baso # (Auto) Abs Immat Gran (auto) Absolute Neuts (auto) Absolute Nucleated RBC Nucleated RBC % (auto) Anion Gap Estim Creat Clear Calc Estimated GFR Random Glucose Calcium Troponin I High Sens 7.7 Urine Color YELLOW Urine Appearance CLEAR Urine pH 5.5 Ur Specific [place] 1.025 Urine Protein NEG Urine Glucose (UA) NEG Urine Ketones NEG Urine Blood NEG Ur Blood, Post-Transfus Urine Nitrite NEG Ur Leukocyte Esterase NEG Urine Hemoglobin Blood Type A Positive Antibody Screen NEGATIVE Crossmatch See Detail Clerical Work Check Hemolysis Bld Bag Check Icterus Blood Bag Check Post-Trans Blood Type Post-Trans DONYA Poly Post-Trans Add Testing Post-Tx Rxn DONYA Result 12/02/21 12/02/21 12/02/21 00:21 00:21 08:25 MCV 93.3 MCH 28.7 MCHC 30.8 L RDW 16.5 H Plt Count 451 H MPV 10.3 Immature Gran % (Auto) 0.9 H Neut % (Auto) 78.4 H Lymph % (Auto) 9.4 L [place] % (Auto) 8.4 Eos % (Auto) 2.1 Baso % (Auto) 0.8 Lymph # (Auto) 1.0 L [place] # (Auto) 0.9 Eos # (Auto) 0.2 Baso # (Auto) 0.1 Abs Immat Gran (auto) 0.09 H Absolute Neuts (auto) 8.1 Absolute Nucleated RBC 2.170 H Nucleated RBC % (auto) 21.1 H Anion Gap Estim Creat Clear Calc Estimated GFR Random Glucose Calcium Troponin I High Sens Urine Color Urine Appearance Urine pH Ur Specific [place] Urine Protein Urine Glucose (UA) Urine Ketones Urine Blood Ur Blood, Post-Transfus NEG Urine Nitrite Ur Leukocyte Esterase Urine Hemoglobin Blood Type Antibody Screen Crossmatch Clerical Work Check No Error Found Hemolysis Bld Bag Check None in Pre and Post Icterus Blood Bag Check None in Pre and Post Post-Trans Blood Type A Positive Post-Trans DONYA Poly NEGATIVE Post-Trans Add Testing No Post-Tx Rxn DONYA Result Not Reportable 12/02/21 12/02/21 08:25 12:10 MCV MCH MCHC RDW Plt Count MPV Immature Gran % (Auto) Neut % (Auto) Lymph % (Auto) [place] % (Auto) Eos % (Auto) Baso % (Auto) Lymph # (Auto) [place] # (Auto) Eos # (Auto) Baso # (Auto) Abs Immat Gran (auto) Absolute Neuts (auto) Absolute Nucleated RBC Nucleated RBC % (auto) Anion Gap 13 Estim Creat Clear Calc 107.4 Estimated GFR > 60 Random Glucose 108 Calcium 8.1 L Troponin I High Sens Urine Color Urine Appearance Urine pH Ur Specific [place] Urine Protein Urine Glucose (UA) Urine Ketones Urine Blood Ur Blood, Post-Transfus Urine Nitrite Ur Leukocyte Esterase Urine Hemoglobin NEG Blood Type Antibody Screen Crossmatch Clerical Work Check Hemolysis Bld Bag Check Icterus Blood Bag Check Post-Trans Blood Type Post-Trans DONYA Poly Post-Trans Add Testing Post-Tx Rxn DONYA Result Assessment and Plan (1) Acute on chronic diastolic (congestive) heart failure: Status: Acute (2) Sangeeta syndrome: Status: Acute (3) Hypothyroidism: Status: Acute Plan 61-year-old male with a past medical history of hypertension, hyperlipidemia, history of severe aortic stenosis, bioprosthetic aortic wall, LBBB, CHF status post AICD, hypothyroidism, history of complete heart block, Hodgkin's lymphoma,? 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 ? Admitted for following Acute on chronic HFpEF Status post AICD. history of non ischemc cardiomyopathy:? Acute CHF exacerbation due to blood transfusion Continue IV Lasix once clinically stable will transition to by mouth Lasix at home dose, has chronic low blood pressure CT chest showed patchy infiltrates - question pneumonia versus CHF.? Patient denies any cough sputum production or fevers, hold antibiotic Chest pain: Resolved was atypical. EKG non ischemis; Trop- 9.8. Seen by Cardiology no further workup needed Bright red blood per rectum patient had 1 episode denies abdominal pain no lightheadedness, no dizziness has history of Sangeeta syndrome with history of intermittent blood in stool follow CBC obtain GI consult continue PPI At present patient clinically stable with benign abdominal exam. Acute on chronic Anemia: Underwent recent upper endoscopy found to have 12 mm gastric ulcer , patient denies epigastric pain hematocrit improved after 0.5 unit of blood follow CBC , there was a concern that patient might have a blood transfusion reaction last evening when he developed shortness of breath and back pain case discussed with pathologist Dr. Mccormick, he does not have blood transfusion reaction if he needs blood transfusion he can receive it. history of hypothyroidism:? Continue home levothyroxine History of ITP platelet count stable DVT prophylaxis:? SCD boots Code status:? Full code Quality Stroke Does the patient have a stroke diagnosis?: No VTE Prior VTE?: No VTE Risk Level:: Medical - moderate - high VTE Device Contraindication: Treatment Not Indicated VTE Drug Contraindication: N/A - Med Ordered
[2021-12-02] MEDS: Morphine Sulfate 2 MG/ML CARTRIDGE 1 MG IVPUSH ×2 (16:38→20:31)
[2021-12-02] MEDS: Pantoprazole Sodium 40 MG/10 ML VIAL IVPUSH (16:38)
[2021-12-02] MEDS: diphenhydrAMINE HCL 25 MG TABLET PO (23:59)
[2021-12-03] VITALS (12 sets, daily range): BP systolic 87–100; BP diastolic 44–58; PULSE 82–100; RESP 15–24; TEMP 36.6–38.5; O2SAT 90–95
[2021-12-03] MEDS: Morphine Sulfate 2 MG/ML CARTRIDGE 1 MG IVPUSH ×3 (01:53→23:16)
[2021-12-03] MEDS: Pantoprazole Sodium 40 MG/10 ML VIAL IVPUSH ×2 (05:28→17:54)
[2021-12-03] MEDS: Levothyroxine Sodium 150 MCG TABLET PO (05:28)
[2021-12-03 06:56] LABS: Hematocrit 24.9 % (42.0-52.0); Hemoglobin 7.6 g/dl (14.0-18.0)
[2021-12-03] MEDS: Ferrous Sulfate 324 MG TABLET.DR PO ×2 (09:42→17:54)
[2021-12-03] MEDS: Furosemide 40 MG/4 ML VIAL IVPUSH ×2 (09:46→18:09)
[2021-12-03] MEDS: 0.9 % Sodium Chloride Flush 3 ML SYRINGE IVFLUSH ×2 (09:47→17:55)
--- NOTE | 2021-12-03 09:54 | P.CDIC_ITS ---
CDI Concurrent Query Documentation Clarification: PHYSICIAN'S DOCUMENTATION REQUEST Date of Query: 12/03/21 0955 Patient Name: Enrique Monahan Admit Date: 12/01/21 Dear Doctor, A review of the medical record indicates additional documentation may be needed. Please review below and update the documentation accordingly. Clinical Indicators: Risk Factors/Clinical Indicators/Treatments Ed: 12/01 - Ongoing GI bleed with positive guaiac test. HGB 7.1 HCT 22.8 Transfusion complete BP 106/57 shortness of breath. Hemoglobin low likely secondary to anemia and CHF. Based on the above, could you clarify in the Progress Notes which of the following is the most likely type of anemia you are evaluating, treating, and/or monitoring? * Acute blood loss anemia * Acute blood loss anemia with baseline chronic anemia (specify type) * Chronic iron deficiency anemia due to blood loss * Other ? please specify * Unable to determine Use of terms such as suspected, likely, concern for, or probable (associated with a specific diagnosis that is being evaluated, monitored, or treated as if it exists) are acceptable and can be coded in the inpatient setting, when documented at the time of discharge. Thank you, Gerri King [facility], CDIS Extension: [phone] Please use your independent medical judgment in providing your response. THIS QUERY IS PART OF THE PERMANENT MEDICAL RECORD Provider Response: Other Other Diagnosis: Acute blood loss anemia
--- NOTE | 2021-12-03 11:06 | HO.PM.IMPN ---
Subjective Subjective Date of Service: 12/04/21 Interval History: Complaining of shortness of breath, denies chest pain, no recurrent episode of bright red blood per rectum since yesterday abstain, denies nausea vomiting, no hematemesis, no abdominal pain. 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 no crackles, no use of accessory muscles CVS: S1,S2,RRR, no leg edema GI: +BS, NT, no distention extremities no edema Skin: No rash/pallor Neuro:? motor grossly intact Psych: appropriate affect Objective Data Active Medications Acetaminophen (Acetaminophen 325 Mg Tablet) 650 mg PO Q6H PRN PRN Reason: Pain, Mild (Pain Scale 1-3) Albuterol/Ipratropium (Albuterol/Iprat 2.5/0.5mg 3 Ml Ampul.Neb) 3 ml INHALE RQ4H PRN PRN Reason: Shortness of Breath/Wheezing Ferrous Sulfate (Ferrous Sulfate 324 Mg Tablet.) 324 mg PO BIDWM [facility] Furosemide (Furosemide 40 Mg/4 Ml Vial) 40 mg IVPUSH BIDWM [facility]; Protocol Last Admin: 12/03/21 09:46 Dose: 40 mg Documented by: GAUDENCIO Levothyroxine Sodium (Levothyroxine Sodium 150 Mcg Tablet) 150 mcg PO MoTuWeThFrSa@0600 [facility] Last Admin: 12/03/21 05:28 Dose: 150 mcg Documented by: MARICARMEN Levothyroxine Sodium (Levothyroxine Sodium 150 Mcg Tablet) 300 mcg PO Russell@0600 [facility] Morphine Sulfate (Morphine Sulfate 2 Mg/Ml Cartridge) 1 mg IVPUSH Q4H PRN; Protocol PRN Reason: pain/SOB Last Admin: 12/03/21 01:53 Dose: 1 mg Documented by: MARICARMEN Patient Own Med ( Ivabradine [Corlanor ] 5 Mg Tablet) 5 mg PO BIDWM [facility] Last Admin: 12/03/21 09:42 Dose: 5 mg Documented by: GAUDENCIO Pantoprazole Sodium (Pantoprazole Sodium 40 Mg/10 Ml Vial) 40 mg IVPUSH BID@0630,1630 [facility] Last Admin: 12/03/21 05:28 Dose: 40 mg Documented by: MARICARMEN Pharmacy Consult (Consult Rx Perform Med Rec) 1 each MISCELLANE ONCE PRN PRN Reason: Consult order Sodium Chloride (0.9 % Sodium Chloride Flush 3 Ml Syringe) 3 ml IVFLUSH QSHIFT [facility] Last Admin: 12/03/21 09:47 Dose: 3 ml Documented by: GAUDENCIO Labs CBC & Chem 7: 12/04/21 06:22 12/04/21 06:22 Labs: Laboratory Results - last 24 hr 12/02/21 12/02/21 00:21 12:10 Urine Hemoglobin NEG Pathologist Comment [facility] Microbiology Microbiology Results: Microbiology 12/01/21 14:53 Blood Culture - Preliminary Blood - Venous No growth after 24 hours. 12/01/21 14:47 Blood Culture - Preliminary Blood - Venous No growth after 24 hours. Assessment and Plan (1) Acute on chronic diastolic (congestive) heart failure: Status: Acute (2) [place] syndrome: (3) Hypothyroidism: Status: Acute Plan 61-year-old male with a past medical history of hypertension, hyperlipidemia, history of severe aortic stenosis, bioprosthetic aortic wall, LBBB, CHF status post AICD, hypothyroidism, history of complete heart block, Hodgkin's lymphoma,? 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 ? Admitted for following Acute on chronic HFpEF Status post AICD. history of non ischemc cardiomyopathy:? Acute CHF exacerbation due to blood transfusion Continue IV Lasix due to persistent shortness of breath hypoxia and elevated JVD once clinically stable will transition to by mouth Lasix at home dose, has chronic low blood pressure CT chest showed patchy infiltrates - question pneumonia versus CHF.? Patient denies any cough sputum production or fevers, hold antibiotic Chest pain: Resolved was atypical. EKG non ischemic; Trop- 9.8. Seen by Cardiology no further workup needed Bright red blood per rectum patient had 1 episode on 12/02 , and another episode this morning Patient denies abdominal pain, no lightheadedness, no dizziness has history of Sangeeta syndrome with colonic polyp, history of intermittent blood in stool Last colonoscopy January 27 showed polyps otherwise no other abnormality, supposed to undergo video capsule study Repeat hematocrit low but stable this morning, continue PPI follow serial H&H, GI consult At present patient clinically stable with benign abdominal exam. Follow clinical course if noted to have heavy bleeding would obtain nuclear scan/transfuse for hb less than 7 Acute on chronic Anemia due to acute blood loss likely from colonic polyps Noted to have drop in hematocrit will transfuse 1 unit likely due to 2 episodes of bright red blood per rectum Underwent recent upper endoscopy found to have 12 mm gastric ulcer , patient denies epigastric pain history of hypothyroidism:? Continue home levothyroxine History of ITP platelet count stable prednisone discontinued due to gastric ulcer. Fever patient noted to have 101.3 fever this afternoon has chronic cough, no sputum production has been noted to have fever during prior hospitalization with normal procalcitonin CT chest showed bilateral opacities felt to be related to CHF, will cover with IV antibiotics follow procalcitonin level blood cultures x2 negative times 24 hours since admission, Repeat chest x-ray to see clearance if CHF, if blood cultures remains negative times 48 hours and procalcitonin negative will DC antibiotics DVT prophylaxis:? SCD boots Code status:? Full code Patient will need continued inpatient hospitalization due to acute congestive heart failure requiring IV diuretics, requiring blood transfusion for recurrent GI bleed. Quality Stroke Does the patient have a stroke diagnosis?: No VTE Prior VTE?: No VTE Risk Level:: Medical - moderate - high VTE Device Contraindication: Treatment Not Indicated VTE Drug Contraindication: N/A - Med Ordered
[2021-12-03] MEDS: Acetaminophen 325 MG TABLET 650 MG PO (13:04)
--- NOTE | 2021-12-03 13:58 | PM.PNCARD ---
Subjective Subjective Date of Service: 12/03/21 Principal diagnosis: Congestive heart failure, anemia, rectal bleeding Interval history: Seen at 1200. Today he is observed resting in bed in no acute distress. He falls asleep easily. He reports his breathing is short with activity and no significant improvement since admission. He denies having pain. No heart palpitations, dizziness. He has gross general weakness. He is passing blood rectally. His is present at bedside. Review of Systems Review of Systems As above Yes all other systems are reviewed and are negative Physical Exam Vital Signs: Last Vital Signs Temp 101.3 F H 12/03/21 12:00 Pulse 97 12/03/21 12:00 Resp 19 12/03/21 12:00 BP 93/54 L 12/03/21 12:00 Pulse Ox 93 12/03/21 12:00 BMI result Body Mass Index 24.0 Const Other: Chronically ill-appearing, sleepy, generalized weakness General: cooperative, no acute distress and alert Orientation/consciousness: patient oriented x3 Neck Neck: Yes JVD Resp Other: Rales noted anteriorly and in bases posteriorly Effort & Inspection: normal respiratory effort and able to speak in complete sentences Auscultation: no rhonchi and no wheezes Cardio Other: ICD site benign Jugular venous distension: JVD present Rate: regular rate Rhythm: regular rhythm Heart sounds: S1 normal heart sound present and S2 normal heart sound present GI Inspection: Yes normal to inspection Neuro General: patient oriented x3 Extrem General: Yes normal to inspection and No edema Objective Labs and Meds Result diagrams: 12/03/21 06:14 12/02/21 08:25 Lab results: Laboratory Results - last 24 hr 12/01/21 12/02/21 12/03/21 09:55 00:21 06:14 Hgb 7.6 L Hct 24.9 L Blood Type A Positive Antibody Screen NEGATIVE Crossmatch See Detail Pathologist Comment [facility] Progress Note: A&P Assessment and plan (1) Acute on chronic diastolic (congestive) heart failure: Status: Acute Assessment and Plan: Recent admission with upper GI bleeding, found to have gastric ulcer. Upon discharge his Lasix had been held. He then presented with anemia and came for blood transfusion. During transfusion he developed shortness of breath and was admitted for acute on chronic diastolic heart failure. His chest x-ray did show mild pleural effusions. CT of the chest showed patchy infiltrates. Last echo done 12/18/2020 showing normal LV function, normally functioning bioprosthetic AVR, normal RV pressure with mildly elevated right atrial pressures. Heart failure is most likely related to the hold of his usual diuretics then receiving blood transfusion. He is being diuresed with IV Lasix. His fluid balance is currently negative for 140 cc since admission. He is requiring O2 supplement. He is weak and fatigued today and reports that his breathing is not significantly improved since admission. He is febrile and is being further evaluated for possible infection. Also continues to have significant anemia with hemoglobin 7.6. He is passing blood rectally. Discussed case with Dr. Perdomo. For the heart failure will continue to treat with IV Lasix at present time. Continue strict I&O monitoring. Close monitoring of electrolyte and kidney function with electrolyte replacement as warranted. (2) Acute GI bleeding: Status: Acute Assessment and Plan: As above. Passing blood rectally. Does have history of [place] syndrome with prior lower GI bleeding in the past. He has anemia from recent upper GI bleed and now lower GI bleeding. Hemoglobin today 7.6. Recommend blood transfusion, infuse slowly over 4 hours. He is on IV Lasix. Watch closely for worsening of breathing/heart failure. (3) Anemia: Status: Acute (4) Fever of unknown origin: Status: Acute Assessment and Plan: Being followed by hospitalistDERIAN. (5) Val syndrome: Status: Acute (6) Aortic stenosis, severe: Status: Acute Assessment and Plan: History of severe with prior TAVR. Last echo showing normally functioning bioprosthetic AVR. (7) Cardiac resynchronization therapy defibrillator (COMMUNICATIONS MAINTAINER-D) in place: Status: Acute Assessment and Plan: Followed by our office. No indication for interrogation at present time Time Spent With Patient Time: Total time spent is greater than 50% in coordination of care (as documented) at patient's floor/unit and/or counseling patient: 24 Progress Note: Quality Stroke Does the patient have a stroke diagnosis?: No Procedures Date of Service Date of Service: 12/03/21
--- NOTE | 2021-12-03 15:31 | PC.NURSE ---
1045 mod amt light rectal bleed noted. Dr Perdomo notified. [address] Perdomo notified. New orders received for A/B and blood transfusion. 1500 no transfusion reaction noted. Eating lunch, more awake and alert at this time
[2021-12-03] MEDS: Piperacillin Sodium/Tazobactam 3.375 GM in 0.9 % Sodium Chloride 50 ML IV (18:11)
[2021-12-03] MEDS: vancomycin HCL 1,500 MG in 0.9 % Sodium Chloride 500 ML 333.33 MG IV (19:03)
[2021-12-04] MEDS: 0.9 % Sodium Chloride Flush 3 ML SYRINGE IVFLUSH ×4 (01:42→20:07)
[2021-12-04] MEDS: Piperacillin Sodium/Tazobactam 3.375 GM in 0.9 % Sodium Chloride 50 ML IV ×4 (01:42→20:05)
--- NOTE | 2021-12-04 02:45 | CONS_ITS ---
DATE OF SERVICE: 12/03/2021 REFERRING PHYSICIAN: Susan Perdomo MD REASON FOR CONSULTATION: Bright red blood per rectum. 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 He had some complaints of shortness of breath and a transfusion reaction was entertained as a cause for this and he was admitted to the hospital. He was recently hospitalized with GI bleeding and underwent endoscopy on November 20, which showed a 10 to 12 mm ulcer with a visible vessel on the anterior wall of the stomach in the body. This was treated and he did well. He was receiving a blood transfusion because of complaints of shortness of breath. He also reportedly had several episodes of bright red blood per rectum without a significant drop in his hematocrit. He last underwent colonoscopy in January 2021 because of anemia and Hemoccult-positive stools. This showed colon polyps and large internal hemorrhoids. He does have a history of Val syndrome. PAST MEDICAL HISTORY: 1. Hodgkin lymphoma in 1989. 2. [place] syndrome. 3. ITP. 4. Cardiomyopathy with aortic stenosis and defibrillator placement. 5. TAVR in October 2020. 6. Pulmonary embolism. 7. Left bundle branch block. 8. Upper GI bleeding with ulcer as above. CURRENT MEDICATIONS: List is reviewed in the chart. ALLERGIES: NONE REPORTED. FAMILY HISTORY: Noncontributory. SOCIAL HISTORY: There is no current tobacco, alcohol, or substance abuse. REVIEW OF SYSTEMS: SKIN: No pruritus. HEENT: Negative. CARDIOPULMONARY: No shortness of breath or chest pain. GASTROINTESTINAL: As above. GENITOURINARY: Negative. NEUROPSYCHIATRIC: Negative. PHYSICAL EXAMINATION: GENERAL: Shows a pleasant male, lying in bed. VITAL SIGNS: Reviewed in electronic medical record and are stable. SKIN: Anicteric. HEENT: Shows no scleral icterus. NECK: Without lymphadenopathy or thyromegaly. LUNGS: Clear. HEART: Shows a regular rate and rhythm. S1, S2. No murmur. ABDOMEN: Soft without focal masses or tenderness. Bowel sounds are present. No organomegaly is noted. EXTREMITIES: Without edema. LABORATORY DATA: Reviewed. He is currently receiving a blood transfusion. IMPRESSION: Rectal bleeding. His rectal bleeding does sound suspicious for hemorrhoids and based on his colonoscopy last year, this seems likely. He is currently being transfused and this should help with his symptomatic anemia. We did discuss capsule endoscopy to be arranged as outpatient. I would continue his present management as you are doing. Thanks for asking me to see him. I will follow him in the hospital with you. MD ELLYN Andersen/LETICIA / [id number]
[2021-12-04 03:19] VITALS: BP 98/58; PULSE 90; RESP 16; TEMP 36.8; O2SAT 91
[2021-12-04] MEDS: Pantoprazole Sodium 40 MG/10 ML VIAL IVPUSH (05:25)
[2021-12-04] MEDS: Levothyroxine Sodium 150 MCG TABLET PO (05:26)
[2021-12-04] MEDS: vancomycin HCL 1,000 MG in 0.9 % Sodium Chloride 250 ML 270 MG IV (05:26)
[2021-12-04 06:52] LABS: Hematocrit 27.5 % (42.0-52.0); Hemoglobin 8.5 g/dl (14.0-18.0)
[2021-12-04 07:12] LABS: Anion Gap 14 (12-20); Blood Urea Nitrogen 13 mg/dL (9-16); Calcium 8.1 mg/dL (8.4-10.2); Carbon Dioxide 32 mmol/L (22-29); Chloride 94 mmol/L (96-108); Creatinine Clr Calc Pharmacy 96.9; Estimated Glomerular Filt Rate > 60; Glucose Random 115 mg/dL (60-115); Potassium 3.4 mmol/L (3.3-5.1); Sodium 137 mmol/L (135-145)
[2021-12-04 07:29] VITALS: BP 92/86; PULSE 91; RESP 18; TEMP 38; O2SAT 94
--- NOTE | 2021-12-04 07:45 | HE.PHANOTE ---
RE TITI Continue current dose. Estimated AUC 505; TROUGH of 15.6. Next trough due at 0600 on 12/05
[2021-12-04 08:25] LABS: Procalcitonin 0.13 ng/mL
[2021-12-04 08:47] LABS: Adenovirus PCR Not Detected (Not Detect.); Bordetella parapertussis PCR Not Detected (Not Detect.); Bordetella pertussis PCR Not Detected (Not Detect.); Chlamydia pneumoniae PCR Not Detected (Not Detect.); Coronavirus 229E PCR Not Detected (Not Detect.); Coronavirus HKU1 PCR Not Detected (Not Detect.); Coronavirus NL63 PCR Not Detected (Not Detect.); Coronavirus OC43 PCR Not Detected (Not Detect.); Human metapneumovirus PCR Not Detected (Not Detect.); Influenza A PCR Not Detected (Not Detect.); Influenza B PCR Not Detected (Not Detect.); Mycoplasma pneumoniae PCR Not Detected (Not Detect.); Parainfluenza 1 PCR Not Detected (Not Detect.); Parainfluenza 2 PCR Not Detected (Not Detect.); Parainfluenza 3 PCR Not Detected (Not Detect.); Parainfluenza 4 PCR Not Detected (Not Detect.); RSV PCR Not Detected (Not Detect.); Rhino/Enterovirus PCR Not Detected (Not Detect.); SARS-CoV-2 PCR Not Detected (Not Detect.)
[2021-12-04] MEDS: Furosemide 40 MG/4 ML VIAL IVPUSH (09:02)
[2021-12-04] MEDS: Ferrous Sulfate 324 MG TABLET.DR PO ×2 (09:03→18:10)
[2021-12-04 11:33] VITALS: BP 93/70; PULSE 88; RESP 19; TEMP 36.7; O2SAT 97
--- NOTE | 2021-12-04 12:22 | PM.PNCARD ---
Subjective Subjective Date of Service: 12/04/21 Principal diagnosis: Congestive heart failure, anemia, rectal bleeding Interval history: Seen and examined at bedside. No further bleeding. Saying his breathing is stable. Physical Exam Vital Signs: Last Vital Signs Temp 98.0 F 12/04/21 11:33 Pulse 88 12/04/21 11:33 Resp 19 12/04/21 11:33 BP 93/70 12/04/21 11:33 Pulse Ox 97 12/04/21 11:33 BMI result Body Mass Index 24.0 GENERAL APPEARANCE: in no acute distress, frail. NECK: no carotid bruit, no jugular venous distention. SKIN: no suspicious lesions, warm and dry. HEART:? Systolic murmur aortic area, regular rate and rhythm. LUNGS: clear to auscultation bilaterally. ABDOMEN: soft, nontender. EXTREMITIES: no edema. PERIPHERAL PULSES: equal. NEUROLOGIC: No gross deficits, AAO X 3 Objective Labs and Meds Result diagrams: 12/04/21 06:22 12/04/21 06:22 Lab results: Laboratory Results - last 24 hr 12/01/21 12/04/21 12/04/21 09:55 06:00 06:22 Hgb 8.5 L Hct 27.5 L Sodium Potassium Chloride Carbon Dioxide Anion Gap BUN Creatinine Estim Creat Clear Calc Estimated GFR Random Glucose Calcium Procalcitonin Respiratory Panel [place] SEE NOTE Adenovirus (Rapid PCR) Not Detected B.pert (TEM-PCR) Not Detected B.parapertussis DNA PCR Not Detected C. pneumoniae DNA (PCR) Not Detected Coronavirus OC43 (PCR) Not Detected Coronavirus HKU1 (PCR) Not Detected Coronavirus 229E (PCR) Not Detected Coronavirus NL63 (PCR) Not Detected Human Metapneumovir PCR Not Detected Influenza A (RT-PCR) Not Detected Influenza B (RT-PCR) Not Detected M. pneumoniae (PCR) Not Detected Parainfluenza 1 (PCR) Not Detected Parainfluenza 2 (PCR) Not Detected Parainfluenza 3 (PCR) Not Detected Parainfluenza 4 (PCR) Not Detected RSV (PCR) Not Detected Entero/Rhino (PCR) Not Detected SARS-CoV-2 RNA (RT-PCR) Not Detected Blood Type A Positive Antibody Screen NEGATIVE Crossmatch See Detail 12/04/21 12/04/21 06:22 06:22 Hgb Hct Sodium 137 Potassium 3.4 Chloride 94 L Carbon Dioxide 32 H Anion Gap 14 BUN 13 Creatinine 0.82 Estim Creat Clear Calc 96.9 Estimated GFR > 60 Random Glucose 115 Calcium 8.1 L Procalcitonin 0.13 Respiratory Panel [place] Adenovirus (Rapid PCR) B.pert (TEM-PCR) B.parapertussis DNA PCR C. pneumoniae DNA (PCR) Coronavirus OC43 (PCR) Coronavirus HKU1 (PCR) Coronavirus 229E (PCR) Coronavirus NL63 (PCR) Human Metapneumovir PCR Influenza A (RT-PCR) Influenza B (RT-PCR) M. pneumoniae (PCR) Parainfluenza 1 (PCR) Parainfluenza 2 (PCR) Parainfluenza 3 (PCR) Parainfluenza 4 (PCR) RSV (PCR) Entero/Rhino (PCR) SARS-CoV-2 RNA (RT-PCR) Blood Type Antibody Screen Crossmatch Progress Note: A&P Assessment and plan (1) Congestive heart failure: Status: Acute Plan 61-year-old gentleman with complex cardiovascular issues who is admitted with GI bleed and anemia. He also developed congestive heart failure when he was given a blood transfusion. Diuresed and is clinically improving. Unfortunately had some rectal bleeding also. He is also on antibiotics right now. Overall looks euvolemic to me. I think he can be changed to oral diuretics. I would favor putting him on 60 mg twice a day currently. He was previously getting 60 mg in the morning and 40 in the afternoon. Thank you for allowing me to participate in the care of your patient. Please feel free to contact me if you have any questions. Time Spent With Patient Time: Total time spent is greater than 50% in coordination of care (as documented) at patient's floor/unit and/or counseling patient: Progress Note: Quality Stroke Does the patient have a stroke diagnosis?: No Procedures Date of Service Date of Service: 12/04/21
--- NOTE | 2021-12-04 14:16 | HO.PM.IMPN ---
Subjective Subjective Date of Service: 12/04/21 Interval History: Patient feeling better this morning, no recurrent episodes of fever, less shortness of breath, hematocrit improved, no acute issues overnight. Review of Systems PSYCH ARNP no headache no dizziness CVS no chest pain GI no episode of bright red blood per rectum in last 24 hours Review of Systems: Yes all other systems are reviewed and are negative Physical Exam Vital Signs: Vital Signs: Last Vital Signs Temp 98.0 F 12/04/21 11:33 Pulse 88 12/04/21 11:33 Resp 19 12/04/21 11:33 BP 93/70 12/04/21 11:33 Pulse Ox 97 12/04/21 11:33 BMI result Body Mass Index 24.0 Const: Other: General: awake alert x3, no acute distress neck no JVD Resp:?? no crackles, no use of accessory muscles CVS: S1,S2,RRR, no leg edema GI: +BS, NT, no distention extremities no edema Skin: No rash Neuro:? motor grossly intact Psych: appropriate affect Objective Data Active Medications Acetaminophen (Acetaminophen 325 Mg Tablet) 650 mg PO Q6H PRN PRN Reason: Pain, Mild (Pain Scale 1-3) Last Admin: 12/03/21 13:04 Dose: 650 mg Documented by: GAUDENCIO Albuterol/Ipratropium (Albuterol/Iprat 2.5/0.5mg 3 Ml Ampul.Neb) 3 ml INHALE RQ4H PRN PRN Reason: Shortness of Breath/Wheezing Ferrous Sulfate (Ferrous Sulfate 324 Mg Tablet.) 324 mg PO BIDWM [facility] Last Admin: 12/04/21 09:03 Dose: 324 mg Documented by: ISATU Furosemide (Furosemide 20 Mg Tablet) 60 mg PO BID@0900,1800 [facility]; Protocol Piperacillin Sod/Tazobactam (Sod 3.375 gm/ Sodium Chloride) 50 mls @ 100 mls/hr IV Q6H [facility] Last Admin: 12/04/21 13:59 Dose: 100 mls/hr Documented by: ISATU Vancomycin HCl 1,000 mg/ (Sodium Chloride) 270 mls @ 270 mls/hr IV Q12H [facility] Last Infusion: 12/04/21 07:09 Dose: 0 mls/hr Documented by: TIARA Levothyroxine Sodium (Levothyroxine Sodium 150 Mcg Tablet) 150 mcg PO MoTuWeThFrSa@0600 [facility] Last Admin: 12/04/21 05:26 Dose: 150 mcg Documented by: TIARA Levothyroxine Sodium (Levothyroxine Sodium 150 Mcg Tablet) 300 mcg PO Russell@0600 [facility] Morphine Sulfate (Morphine Sulfate 2 Mg/Ml Cartridge) 1 mg IVPUSH Q4H PRN; Protocol PRN Reason: pain/SOB Last Admin: 12/03/21 23:16 Dose: 1 mg Documented by: JEFFRY Patient Own Med ( Ivabradine [Corlanor ] 5 Mg Tablet) 5 mg PO BIDWM [facility] Last Admin: 12/04/21 09:03 Dose: 5 mg Documented by: ISATU Pantoprazole Sodium (Pantoprazole Sodium 40 Mg/10 Ml Vial) 40 mg IVPUSH BID@0630,1630 [facility] Last Admin: 12/04/21 05:25 Dose: 40 mg Documented by: TIARA Pharmacy Consult (Consult Rx Perform Med Rec) 1 each MISCELLANE ONCE PRN PRN Reason: Consult order Pharmacy Consult (Consult Rx Vancomycin Dosing) 1 each MISCELLANE DAILY PRN PRN Reason: Consult order Sodium Chloride (0.9 % Sodium Chloride Flush 3 Ml Syringe) 3 ml IVFLUSH QSHIFT [facility] Last Admin: 12/04/21 09:03 Dose: 3 ml Documented by: ISATU Labs CBC & Chem 7: 12/04/21 06:22 12/04/21 06:22 Labs: Laboratory Results - last 24 hr 12/01/21 12/04/21 12/04/21 09:55 06:00 06:22 Anion Gap 14 Estim Creat Clear Calc 96.9 Estimated GFR > 60 Random Glucose 115 Calcium 8.1 L Procalcitonin Respiratory Panel [place] SEE NOTE Adenovirus (Rapid PCR) Not Detected B.pert (TEM-PCR) Not Detected B.parapertussis DNA PCR Not Detected C. pneumoniae DNA (PCR) Not Detected Coronavirus OC43 (PCR) Not Detected Coronavirus HKU1 (PCR) Not Detected Coronavirus 229E (PCR) Not Detected Coronavirus NL63 (PCR) Not Detected Human Metapneumovir PCR Not Detected Influenza A (RT-PCR) Not Detected Influenza B (RT-PCR) Not Detected M. pneumoniae (PCR) Not Detected Parainfluenza 1 (PCR) Not Detected Parainfluenza 2 (PCR) Not Detected Parainfluenza 3 (PCR) Not Detected Parainfluenza 4 (PCR) Not Detected RSV (PCR) Not Detected Entero/Rhino (PCR) Not Detected SARS-CoV-2 RNA (RT-PCR) Not Detected Crossmatch See Detail 12/04/21 06:22 Anion Gap Estim Creat Clear Calc Estimated GFR Random Glucose Calcium Procalcitonin 0.13 Respiratory Panel [place] Adenovirus (Rapid PCR) B.pert (TEM-PCR) B.parapertussis DNA PCR C. pneumoniae DNA (PCR) Coronavirus OC43 (PCR) Coronavirus HKU1 (PCR) Coronavirus 229E (PCR) Coronavirus NL63 (PCR) Human Metapneumovir PCR Influenza A (RT-PCR) Influenza B (RT-PCR) M. pneumoniae (PCR) Parainfluenza 1 (PCR) Parainfluenza 2 (PCR) Parainfluenza 3 (PCR) Parainfluenza 4 (PCR) RSV (PCR) Entero/Rhino (PCR) SARS-CoV-2 RNA (RT-PCR) Crossmatch Microbiology Microbiology Results: Microbiology 12/01/21 14:53 Blood Culture - Preliminary Blood - Venous No growth after 48 hours. 12/01/21 14:47 Blood Culture - Preliminary Blood - Venous No growth after 48 hours. Assessment and Plan (1) Acute on chronic diastolic (congestive) heart failure: Status: Acute (2) [place] syndrome: (3) Hypothyroidism: Status: Acute Plan 61-year-old male with a past medical history of hypertension, hyperlipidemia, history of severe aortic stenosis, bioprosthetic aortic wall, LBBB, CHF status post AICD, hypothyroidism, history of complete heart block, Hodgkin's lymphoma,? 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 ? Admitted for following Acute on chronic HFpEF Status post AICD. history of non ischemc cardiomyopathy:? Acute CHF exacerbation due to blood transfusion Shortness of breath improved will transition to oral Lasix , case discussed with Cardiology. Chest pain: Resolved was atypical. EKG non ischemic; Trop- 9.8. Seen by Cardiology no further workup needed Bright red blood per rectum Had 2 episodes on 12/02 , and 12/03 likely due to mj syndrome with colonic polyps Last colonoscopy January 27 showed polyps otherwise no other abnormality, supposed to undergo video capsule study Will DC IV Protonix transition to by mouth PPI Acute on chronic Anemia due to acute blood loss likely from colonic polyps No recurrent episode of bright red blood per rectum in last 24 hours, hematocrit improved s/p 1 unit of packed RBC history of hypothyroidism:? Continue home levothyroxine History of ITP platelet count stable prednisone discontinued due to gastric ulcer. Fever No recurrent fevers, continue IV vanco ,iv Zosyn day 2 Follow procalcitonin level, repeat chest x-ray, blood cultures times 48 hour negative, chest x-ray normal and normal procalcitonin will DC antibiotic. DVT prophylaxis:? SCD boots Code status:? Full code Patient will need continued inpatient hospitalization due to acute congestive heart failure, fevers on IV antibiotics and bright red blood per rectum needs close clinical follow up for recurrent episodes. Quality Stroke Does the patient have a stroke diagnosis?: No VTE Prior VTE?: No VTE Risk Level:: Medical - moderate - high VTE Device Contraindication: Treatment Not Indicated VTE Drug Contraindication: N/A - Med Ordered
[2021-12-04 15:05] VITALS: BP 97/42; PULSE 91; RESP 16; TEMP 38.4; O2SAT 95
[2021-12-04] MEDS: Acetaminophen 325 MG TABLET 650 MG PO (15:42)
[2021-12-04] MEDS: Furosemide 20 MG TABLET 60 MG PO (18:09)
[2021-12-04] MEDS: Omeprazole 40 MG CAPSULE.DR PO (18:10)
[2021-12-04] MEDS: vancomycin HCL 1,000 MG in 0.9 % Sodium Chloride 250 ML 260 MG IV (18:12)
[2021-12-04 18:53] VITALS: BP 87/51; PULSE 92; RESP 14; TEMP 36.9; O2SAT 96
[2021-12-04] MEDS: Morphine Sulfate 2 MG/ML CARTRIDGE 1 MG IVPUSH (21:37)
[2021-12-04 23:11] VITALS: BP 98/50; PULSE 90; RESP 20; TEMP 37.3; O2SAT 97
[2021-12-05] VITALS (7 sets, daily range): BP systolic 92–106; BP diastolic 52–59; PULSE 85–91; RESP 17–22; TEMP 36.9–38.2; O2SAT 95–99
[2021-12-05] MEDS: Piperacillin Sodium/Tazobactam 3.375 GM in 0.9 % Sodium Chloride 50 ML IV ×4 (01:01→19:47)
[2021-12-05] MEDS: Omeprazole 40 MG CAPSULE.DR PO ×2 (05:49→17:25)
[2021-12-05] MEDS: Levothyroxine Sodium 150 MCG TABLET 300 MCG PO (05:49)
[2021-12-05 07:33] LABS: Anion Gap 12 (12-20); Blood Urea Nitrogen 14 mg/dL (9-16); Calcium 8.2 mg/dL (8.4-10.2); Carbon Dioxide 33 mmol/L (22-29); Chloride 96 mmol/L (96-108); Creatinine Clr Calc Pharmacy 89.3; Estimated Glomerular Filt Rate > 60; Glucose Random 107 mg/dL (60-115); Potassium 3.4 mmol/L (3.3-5.1); Sodium 138 mmol/L (135-145)
[2021-12-05 07:39] LABS: Vancomycin Trough 11.4 mcg/mL (10.0-20.0)
--- NOTE | 2021-12-05 07:51 | HE.PHANOTE ---
RE TITI Patient SCr at 0.89 today. Trough returned at 11.4 after three doses. Continue current regimen which should yield an AUC of 503, trough 15.4. Next trough scheduled for 12/06 @1700. Per Dr Perdomo, abx might be discontinued today pending labs and chest xray
[2021-12-05] MEDS: Furosemide 20 MG TABLET 60 MG PO ×2 (07:57→17:25)
[2021-12-05] MEDS: Ferrous Sulfate 324 MG TABLET.DR PO ×2 (07:57→17:25)
[2021-12-05] MEDS: 0.9 % Sodium Chloride Flush 3 ML SYRINGE IVFLUSH ×3 (07:58→19:59)
[2021-12-05] MEDS: vancomycin HCL 1,000 MG in 0.9 % Sodium Chloride 250 ML 270 MG IV (07:58)
[2021-12-05 07:59] LABS: Procalcitonin 0.14 ng/mL
--- NOTE | 2021-12-05 13:44 | P.PNIM_ITS ---
Subjective Subjective Date of Service: 12/05/21 Interval History: Feeling weak this morning complaining of intermittent dry cough cough noted to have low-grade fevers overnight associated with chills, denies abdominal pain, no diarrhea denies shortness of breath, no urinary symptoms of urgency frequency, no other events overnight. Review of Systems Review of Systems: Yes all other systems are reviewed and are negative Physical Exam Vital Signs: Vital Signs: Last Vital Signs Temp 98.6 F 12/05/21 11:14 Pulse 85 12/05/21 11:14 Resp 19 12/05/21 11:14 BP 100/56 L 12/05/21 11:14 Pulse Ox 97 12/05/21 11:14 BMI result Body Mass Index 24.0 Const: Other: General: awake alert x3, no acute distress neck no JVD Resp:? Clear to auscultation, no crackles, no use of accessory muscles CVS: S1,S2,RRR, no leg edema GI: +BS, NT, no distention extremities no edema Skin: No rash Neuro:? motor grossly intact Psych: appropriate affect Objective Data Active Medications Acetaminophen (Acetaminophen 325 Mg Tablet) 650 mg PO Q6H PRN PRN Reason: Pain, Mild (Pain Scale 1-3) Last Admin: 12/04/21 15:42 Dose: 650 mg Documented by: ISATU Albuterol/Ipratropium (Albuterol/Iprat 2.5/0.5mg 3 Ml Ampul.Neb) 3 ml INHALE RQ4H PRN PRN Reason: Shortness of Breath/Wheezing Ferrous Sulfate (Ferrous Sulfate 324 Mg Tablet.) 324 mg PO BIDWM [facility] Last Admin: 12/05/21 07:57 Dose: 324 mg Documented by: ALICE Furosemide (Furosemide 20 Mg Tablet) 60 mg PO BID@0900,1800 [facility]; Protocol Last Admin: 12/05/21 07:57 Dose: 60 mg Documented by: ALICE Piperacillin Sod/Tazobactam (Sod 3.375 gm/ Sodium Chloride) 50 mls @ 100 mls/hr IV Q6H [facility] Last Infusion: 12/05/21 07:37 Dose: 0 mls/hr Documented by: RAMA Vancomycin HCl 1,000 mg/ (Sodium Chloride) 270 mls @ 270 mls/hr IV Q12H [facility] Last Infusion: 12/05/21 11:23 Dose: 0 mls/hr Documented by: ALICE Levothyroxine Sodium (Levothyroxine Sodium 150 Mcg Tablet) 150 mcg PO MoTuWeThFrSa@0600 [facility] Last Admin: 12/04/21 05:26 Dose: 150 mcg Documented by: TIARA Levothyroxine Sodium (Levothyroxine Sodium 150 Mcg Tablet) 300 mcg PO Russell@0600 [facility] Last Admin: 12/05/21 05:49 Dose: 300 mcg Documented by: RAMA Morphine Sulfate (Morphine Sulfate 2 Mg/Ml Cartridge) 1 mg IVPUSH Q4H PRN; Protocol PRN Reason: pain/SOB Last Admin: 12/04/21 21:37 Dose: 1 mg Documented by: TIARA Patient Own Med ( Ivabradine [Corlanor ] 5 Mg Tablet) 5 mg PO BIDWM [facility] Last Admin: 12/05/21 07:57 Dose: 5 mg Documented by: ALICE Omeprazole (Omeprazole 40 Mg Chris.) 40 mg PO BID@0630,1630 [facility] Last Admin: 12/05/21 05:49 Dose: 40 mg Documented by: RAMA Pharmacy Consult (Consult Rx Perform Med Rec) 1 each MISCELLANE ONCE PRN PRN Reason: Consult order Pharmacy Consult (Consult Rx Vancomycin Dosing) 1 each MISCELLANE DAILY PRN PRN Reason: Consult order Sodium Chloride (0.9 % Sodium Chloride Flush 3 Ml Syringe) 3 ml IVFLUSH QSHIFT [facility] Last Admin: 12/05/21 07:58 Dose: 3 ml Documented by: ALICE Labs CBC & Chem 7: 12/04/21 06:22 12/05/21 06:38 Labs: Laboratory Results - last 24 hr 12/05/21 12/05/21 12/05/21 06:38 06:38 06:38 Anion Gap 12 Estim Creat Clear Calc 89.3 Estimated GFR > 60 Random Glucose 107 Calcium 8.2 L Procalcitonin 0.14 Vancomycin Trough 11.4 Assessment and Plan (1) Acute on chronic diastolic (congestive) heart failure: Status: Acute (2) [place] syndrome: (3) Hypothyroidism: Status: Acute Plan 61-year-old male with a past medical history of hypertension, hyperlipidemia, history of severe aortic stenosis, bioprosthetic aortic wall, LBBB, CHF status post AICD, hypothyroidism, history of complete heart block, Hodgkin's lymphoma,? 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 ? Admitted for following Acute on chronic HFpEF Status post AICD. history of non ischemc cardiomyopathy:? Acute CHF exacerbation due to blood transfusion and with recent decrease in antidiuretic does Shortness of breath improved , no PND, no orthopnea, on Lasix 60 mg b.i.d. will continue current dose Chest pain: Resolved was atypical. EKG non ischemic; Trop- 9.8. Seen by Cardiology no further workup needed Bright red blood per rectum Had 2 episodes on 12/02 , and 12/03 likely due to sangeeta syndrome with colonic polyps Hematocrit stable, Last colonoscopy January 27 showed polyps otherwise no other abnormality, supposed to undergo video capsule study by GI Continue by mouth PPI Acute on chronic Anemia due to acute blood loss likely from colonic polyps No recurrent episode of bright red blood per rectum in last 24 hours, hematocrit improved s/p 1 unit of packed RBC history of hypothyroidism:? Continue home levothyroxine History of ITP platelet count stable prednisone discontinued due to gastric ulce r. Fever Noted to have low-grade fevers, continue IV vanco ,iv Zosyn day 3 , WBC normalized Normal procalcitonin level, MRSA nares negative blood cultures times 48 hour negative, chest x-ray showed persistent bilateral patchy opacity that seems nonspecific, no interval improvement compared to chest radiograph 11/29 Question related to pulmonary edema or multi lobar pneumonia, chronic small bi lateral pleural effusion Will DC IV vanco Due to recurrent fevers consulted ID DVT prophylaxis:? SCD boots Code status:? Full code Patient will need continued inpatient hospitalization due to acute congestive heart failure, fevers on IV antibiotics and bright red blood per rectum needs close clinical follow up for recurrent episodes. Quality Stroke Does the patient have a stroke diagnosis?: No VTE Prior VTE?: No VTE Risk Level:: Medical - moderate - high VTE Device Contraindication: Treatment Not Indicated VTE Drug Contraindication: N/A - Med Ordered
[2021-12-05] MEDS: Morphine Sulfate 2 MG/ML CARTRIDGE 1 MG IVPUSH ×2 (13:54→19:48)
[2021-12-06] VITALS (10 sets, daily range): BP systolic 85–99; BP diastolic 50–56; PULSE 81–93; RESP 14–20; TEMP 37–38.2; O2SAT 91–99
[2021-12-06] MEDS: Piperacillin Sodium/Tazobactam 3.375 GM in 0.9 % Sodium Chloride 50 ML IV ×5 (03:09→23:46)
[2021-12-06] MEDS: Omeprazole 40 MG CAPSULE.DR PO ×2 (04:44→17:12)
[2021-12-06] MEDS: Levothyroxine Sodium 150 MCG TABLET PO (04:44)
[2021-12-06] MEDS: Morphine Sulfate 2 MG/ML CARTRIDGE 1 MG IVPUSH (04:44)
[2021-12-06 06:25] LABS: Hematocrit 29.7 % (42.0-52.0); Mean Corpuscular HGB Conc 30.3 g/dl (31.0-36.0); Mean Corpuscular Volume 92.5 fL (80.0-98.0); Mean Platelet Volume 10.8 fL (9.4-12.4); Platelet Count 446 X10*3/uL (160-400); Red Blood Count 3.21 X10*6/uL (4.60-5.80); Red Cell Distribution Width 16.6 % (11.0-16.0); White Blood Count 10.7 X10*3/uL (4.8-10.8)
[2021-12-06 06:29] LABS: NRBC Pct Auto 1.9 /100WBC (0.0-0.2)
[2021-12-06] MEDS: Ferrous Sulfate 324 MG TABLET.DR PO ×2 (08:57→17:12)
[2021-12-06] MEDS: Furosemide 20 MG TABLET 60 MG PO ×2 (08:57→18:38)
[2021-12-06] MEDS: 0.9 % Sodium Chloride Flush 3 ML SYRINGE IVFLUSH ×3 (09:04→23:46)
--- NOTE | 2021-12-06 12:03 | HO.PM.IMPN ---
Subjective Subjective Date of Service: 12/06/21 Interval History: Feeling better no overnight fever, no worsening shortness of breath, mild cough, no acute events overnight. Review of Systems [employer] no headache no dizziness CVS no chest pain, no palpitation, no shortness of breath GI no nausea, no vomiting, no bright red blood per rectum Review of Systems: Yes all other systems are reviewed and are negative Physical Exam Vital Signs: Vital Signs: Last Vital Signs Temp 98.6 F 12/06/21 11:24 Pulse 88 12/06/21 11:24 Resp 19 12/06/21 11:24 BP 95/54 L 12/06/21 11:24 Pulse Ox 98 12/06/21 11:24 BMI result Body Mass Index 24.0 Const: Other: General: awake yvonne rt x3, no acute di stress neck no JVD Resp:? Clear to a uscultation, no cr ackles, no use of accessory muscles CVS: S1,S2,RRR, no leg edema GI: +BS , NT, no distentio n extremities no e yuriy Skin: No rash Neuro:? motor chadd ssly intact Psych: appropriate affec t Objective Data Active Medications Acetaminophen (Acetaminophen 325 Mg Tablet) 650 mg PO Q6H PRN PRN Reason: Pain, Mild (Pain Scale 1-3) Last Admin: 12/04/21 15:42 Dose: 650 mg Documented by: ISATU Albuterol/Ipratropium (Albuterol/Iprat 2.5/0.5mg 3 Ml Ampul.Neb) 3 ml INHALE RQ4H PRN PRN Reason: Shortness of Breath/Wheezing Ferrous Sulfate (Ferrous Sulfate 324 Mg Tablet.) 324 mg PO BIDWM [facility] Last Admin: 12/06/21 08:57 Dose: 324 mg Documented by: JOSE JUAN Furosemide (Furosemide 20 Mg Tablet) 60 mg PO BID@0900,1800 [facility]; Protocol Last Admin: 12/06/21 08:57 Dose: 60 mg Documented by: JOSE JUAN Piperacillin Sod/Tazobactam (Sod 3.375 gm/ Sodium Chloride) 50 mls @ 100 mls/hr IV Q6H [facility] Last Infusion: 12/06/21 10:06 Dose: 0 mls/hr Documented by: JOSE JUAN Levothyroxine Sodium (Levothyroxine Sodium 150 Mcg Tablet) 150 mcg PO MoTuWeThFrSa@0600 [facility] Last Admin: 12/06/21 04:44 Dose: 150 mcg Documented by: MARICARMEN Levothyroxine Sodium (Levothyroxine Sodium 150 Mcg Tablet) 300 mcg PO Russell@0600 [facility] Last Admin: 12/05/21 05:49 Dose: 300 mcg Documented by: RAMA Morphine Sulfate (Morphine Sulfate 2 Mg/Ml Cartridge) 1 mg IVPUSH Q4H PRN; Protocol PRN Reason: pain/SOB Last Admin: 12/06/21 04:44 Dose: 1 mg Documented by: MARICARMEN Patient Own Med ( Ivabradine [Corlanor ] 5 Mg Tablet) 5 mg PO BIDWM [facility] Last Admin: 12/06/21 08:57 Dose: 5 mg Documented by: JOSE JUAN Omeprazole (Omeprazole 40 Mg Capsule.) 40 mg PO BID@0630,1630 [facility] Last Admin: 12/06/21 04:44 Dose: 40 mg Documented by: MARICARMEN Pharmacy Consult (Consult Rx Perform Med Rec) 1 each MISCELLANE ONCE PRN PRN Reason: Consult order Pharmacy Consult (Consult Rx Vancomycin Dosing) 1 each MISCELLANE DAILY PRN PRN Reason: Consult order Sodium Chloride (0.9 % Sodium Chloride Flush 3 Ml Syringe) 3 ml IVFLUSH QSHIFT [facility] Last Admin: 12/06/21 09:04 Dose: 3 ml Documented by: JOSE JUAN Labs CBC & Chem 7: 12/06/21 05:12 12/05/21 06:38 Labs: Laboratory Results - last 24 hr 12/06/21 05:12 MCV 92.5 MCH 28.0 MCHC 30.3 L RDW 16.6 H Plt Count 446 H MPV 10.8 Absolute Nucleated RBC 0.200 H Nucleated RBC % (auto) 1.9 H Assessment and Plan (1) Acute on chronic diastolic (congestive) heart failure: Status: Acute (2) Hypothyroidism: Status: Acute Plan 61-year-old male with a past medical history of hypertension, hyperlipidemia, history of severe aortic stenosis, bioprosthetic aortic wall, LBBB, CHF status post AICD, hypothyroidism, history of complete heart block, Hodgkin's lymphoma,? 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 ? Admitted for following Acute on chronic HFpEF Status post AICD. history of non ischemc cardiomyopathy:? CHF exacerbation likely due to blood transfusion and with recent decrease in antidiuretic dose Shortness of breath improved , no PND, no orthopnea, on Lasix 60 mg b.i.d. will continue current dose Oxygen stable on 2 L, will wean off oxygen patient not on home O2. Recommend out of bed to chair and ambulate as tolerated, obtain PT eval if weakness persists. Chest pain: Resolved was atypical. EKG non ischemic; Trop- 9.8. Seen by Cardiology no further workup needed Bright red blood per rectum Had 2 episodes on 12/02 , and 12/03 likely due to sangeeta syndrome with colonic polyps No recurrent episode in last 48 hours Hematocrit stable, Last colonoscopy January 27 showed polyps otherwise no other abnormality, recommend outpatient follow-up with GI , outpatient video capsule study as per GI Continue by mouth PPI Acute on chronic Anemia due to acute blood loss likely from colonic polyps No recurrent episode of bright red blood per rectum in last 48 hours, hematocrit improved s/p 1 unit of packed RBC history of hypothyroidism:? Continue home levothyroxine History of ITP platelet count stable prednisone discontinued due to gastric ulcer. Fever Noted to have low-grade fevers Normal procalcitonin level, MRSA nares negative, blood cultures times 48 hour negative, chest x-ray showed persistent bilateral patchy opacity that seems nonspecific, no interval improvement compared to chest radiograph 11/29 Question related to pulmonary edema or multi lobar pneumonia, chronic small bilateral pleural effusion Await ID input due to recurrent fevers, noted during previous hospitalizations Continue IV Zosyn for now day 4 DVT prophylaxis:? SCD boots Code status:? Full code Called and updated her about patient's current clinical condition as per patient's request. Patient will need continued inpatient hospitalization due to acute congestive heart failure, fevers on IV antibiotics and bright red blood per rectum needs close clinical follow up for recurrent episodes. Quality Stroke Does the patient have a stroke diagnosis?: No VTE Prior VTE?: No VTE Risk Level:: Medical - moderate - high VTE Device Contraindication: Treatment Not Indicated VTE Drug Contraindication: N/A - Med Ordered
[2021-12-06 17:29] LABS: Vancomycin Trough 5.5 mcg/mL (10.0-20.0)
[2021-12-06] MEDS: Acetaminophen 325 MG TABLET 650 MG PO (18:41)
[2021-12-07] VITALS (9 sets, daily range): BP systolic 82–101; BP diastolic 47–70; PULSE 82–108; RESP 15–19; TEMP 36.8–37.4; O2SAT 91–96
[2021-12-07] MEDS: Levothyroxine Sodium 150 MCG TABLET PO (05:28)
[2021-12-07] MEDS: ondansetron HCL 4 MG/2 ML VIAL IVPUSH (05:28)
[2021-12-07] MEDS: Omeprazole 40 MG CAPSULE.DR PO ×2 (05:28→16:32)
[2021-12-07] MEDS: Piperacillin Sodium/Tazobactam 3.375 GM in 0.9 % Sodium Chloride 50 ML IV ×3 (06:13→20:26)
[2021-12-07] MEDS: Ferrous Sulfate 324 MG TABLET.DR PO ×2 (07:51→16:31)
[2021-12-07] MEDS: Furosemide 20 MG TABLET 60 MG PO ×2 (07:51→17:30)
--- NOTE | 2021-12-07 09:48 | PM.CNPUL ---
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 Initially treated for acute gastrointestinal bleeding, which has been controlled and stabilized. He continue to have low-grade fever and chest x-rays/CT scan have shown extensive bilateral infiltrates. Also has been hypoxemic and being treated with oxygen by nasal cannula. His past medical history as well documented in the medical records, is quite extensive. Including Hodgkin's lymphoma diagnosed in 1989, Royal,s Syndrome causing recurrent GI bleeding, aortic stenosis treated with T a we are, Patient has AICD in place , and has been on anticoagulation. This patient also has had ITP. Radiation induced hypothyroidism. In the history there is no mention of chronic lung disease, except that in the past he has had pulmonary embolism, requiring long-term anticoagulation. Today when I saw him, he is afebrile, and not having any respiratory distress but is on oxygen 2 L/minute. Review of Systems Review of Systems: Yes Unobtainable due to mental condition PMFSH Past Medical History Medical History (Updated 12/07/21 @ 09:58 by Ailyn Hirsch MD) Acute ITP Anemia Aortic stenosis, severe Bilateral pulmonary embolism Cardiac resynchronization therapy defibrillator ([employer]MENT SETTER-D) in place Complete heart block Congestive heart failure COVID-19 COVID-19 vaccine series completed Royal syndrome Fever of unknown origin HFrEF (heart failure with reduced ejection fraction) Hodgkins lymphoma Hypocalcemia Hypotension (arterial) Hypothyroidism LBBB (left bundle branch block) Leukocytosis Low TSH level Lung infiltrate Multifocal pneumonia Multinodular thyroid Multinodular thyroid NICM (nonischemic cardiomyopathy) Osteoporosis Pacemaker Pulmonary embolism Recurrent pleural effusion on right Respiratory failure with hypoxia Rib fracture Rib pain Right hip pain Shortness of breath Sinus tachycardia Thrombocytopenia Vitamin D deficiency Family History Family History Father Healthy adult male Mother Bladder cancer Surgical History Surgical History H/O splenectomy History of appendectomy History of cardiac pacemaker History of endoscopy History of esophagogastroduodenoscopy (EGD) History of hip surgery Hx of colonoscopy S/P TAVR (transcatheter aortic valve replacement) Social History Social History Household Members: Spouse and Children Housing: House Are you a primary care director rn to a significant other at home: No Do you presently have visiting nurse or other home services: No Alcohol intake: current Alcohol intake frequency: holidays/special occasions only Patient Tobacco Use Status: Never used Tobacco e-Cigarette/Vaping Use: Never Used Second Hand Smoke Exposure: No Use of substances other than those prescribed or required for medical reasons: No Currently Displaying Signs/Symptoms of Drug Intoxication Withdrawal: No Any prior treatment program specific to substance use: No Have you been hit, kicked, punched, or otherwise hurt by someone within the past year? If so, by whom?: No Do you feel safe in your current relationship?: Yes Is there a partner from a previous relationship who is making you feel unsafe now?: No Are you made to feel afraid or neglected: No Advance Directives: Yes Advance Directives Information Provided: No Advance Directives on File: Yes Advance Directives Date on File: 01/07/21 Do you have thoughts of harming others: None Do you have a plan to hurt others: No Plan Recently lost weight without trying: Unsure Eating poorly because of decreased appetite: No Nutrition Risks: No Nutritional Risk service: Yes Current occupational status: employed Current occupational exposures/hazards: No Meds Allergies Allergy/AdvReac Type Severity Reaction Status Date / Time No Known Allergies Allergy Verified 11/29/21 16:14 [No Known Allergies*] Active Medications: Current Medications Acetaminophen (Acetaminophen 325 Mg Tablet) 650 mg PO Q6H PRN PRN Reason: Pain, Mild (Pain Scale 1-3) Last Admin: 12/06/21 18:41 Dose: 650 mg Documented by: Albuterol/Ipratropium (Albuterol/Iprat 2.5/0.5mg 3 Ml Ampul.Neb) 3 ml INHALE RQ4H PRN PRN Reason: Shortness of Breath/Wheezing Ferrous Sulfate (Ferrous Sulfate 324 Mg Tablet.) 324 mg PO BIDWM [facility] Last Admin: 12/07/21 07:51 Dose: 324 mg Documented by: Furosemide (Furosemide 20 Mg Tablet) 60 mg PO BID@0900,1800 [facility]; Protocol Last Admin: 12/07/21 07:51 Dose: 60 mg Documented by: Piperacillin Sod/Tazobactam (Sod 3.375 gm/ Sodium Chloride) 50 mls @ 100 mls/hr IV Q6H [facility] Last Infusion: 12/07/21 08:07 Dose: Infused Documented by: Levothyroxine Sodium (Levothyroxine Sodium 150 Mcg Tablet) 150 mcg PO MoTuWeThFrSa@0600 [facility] Last Admin: 12/07/21 05:28 Dose: 150 mcg Documented by: Levothyroxine Sodium (Levothyroxine Sodium 150 Mcg Tablet) 300 mcg PO Cruz@0600 [facility] Last Admin: 12/05/21 05:49 Dose: 300 mcg Documented by: Patient Own Med ( Ivabradine [Corlanor ] 5 Mg Tablet) 5 mg PO BIDWM [facility] Last Admin: 12/07/21 07:52 Dose: 5 mg Documented by: Omeprazole (Omeprazole 40 Mg Capsule.) 40 mg PO BID@0630,1630 [facility] Last Admin: 12/07/21 05:28 Dose: 40 mg Documented by: Ondansetron HCl (Ondansetron Hcl 4 Mg/2 Ml Vial) 4 mg IVPUSH Q8H PRN PRN Reason: Nausea and Vomiting Last Admin: 12/07/21 05:28 Dose: 4 mg Documented by: Pharmacy Consult (Consult Rx Perform Med Rec) 1 each MISCELLANE ONCE PRN PRN Reason: Consult order Pharmacy Consult (Consult Rx Vancomycin Dosing) 1 each MISCELLANE DAILY PRN PRN Reason: Consult order Sodium Chloride (0.9 % Sodium Chloride Flush 3 Ml Syringe) 3 ml IVFLUSH QSHIFT [facility] Last Admin: 12/06/21 23:46 Dose: 3 ml Documented by: Home Medications Medication Instructions Recorded Confirmed Last Taken Type eplerenone 25 mg tablet (Inspra) 25 mg PO DAILY 11/05/21 12/01/21 11/30/21 History levothyroxine 125 mcg tablet 300 mcg PO CRUZ 11/18/21 12/01/21 11/28/21 History (Synthroid) levothyroxine 150 mcg tablet 150 mcg PO MOTUWETHFRSA 11/18/21 12/01/21 12/01/21 History furosemide 20 mg tablet 60 mg PO BID 12/01/21 12/01/21 11/30/21 History ivabradine 5 mg tablet (Corlanor) 5 mg PO BIDWM 12/01/21 12/01/21 11/30/21 History Physical Exam Vital Signs: Vital Signs: Last Vital Signs Temp 98.7 F 12/07/21 07:37 Pulse 108 H 12/07/21 07:37 Resp 17 12/07/21 07:37 BP 101/70 12/07/21 07:37 Pulse Ox 94 12/07/21 07:37 BMI result Body Mass Index 24.0 Const: General: comfortable, no acute distress, alert and awake Orientation/consciousness: patient oriented x3 HEENT: Head: Yes normal to inspection General nose exam: No nasal polyps present and No nasal discharge present Face and sinus: Yes sinuses nontender Mouth: oropharynx normal Throat: Yes posterior oropharynx normal Eyes: General: appearance normal, both eyes and all related structures Neck: Neck: Yes normal visual inspection, Yes no lymphadenopathy, Yes trachea midline and Yes no JVD Thyroid: Thyroid normal Chest: Chest palpation & inspection: normal inspection of the chest, normal palpation of entire chest wall and no tenderness Resp: Other: Percussion note resonant, breath sounds are generally distant, He does have a few inspiratory crackles over the mid chest and lower lobes. No wheezes are heard. Cardio: Palpation: normal PMI Rate: regular rate Rhythm: regular rhythm Heart sounds: no gallops and no murmurs GI: Palpation (GI): Soft to palpation, nontender, No hepatosplenomegaly present and no masses Auscultation: normal bowel sounds Back/Spine/Pelvis: Other: Not examine Thoracic/Lumbar Spine: thoracic and lumbar spine normal to inspection Skin: General skin exam: no rashes or lesions noted Neuro: General: patient oriented x3 and no focal motor deficits Cranial nerves: Yes CN's II-XII intact bilaterally Extrem: General: Yes normal to inspection, Yes no clubbing, cyanosis or edema and Yes no calf tenderness Psych: Speech and movement: Normal speech and movement present Results Laboratory Findings CBC and BMP: 12/06/21 05:12 12/05/21 06:38 ABG, PT/INR, D-dimer: PT/INR, D-dimer PT 16.7 SEC (9.9-13.0) H 12/01/21 15:33 INR 1.5 (0.9-1.1) H 12/01/21 15:33 Abnormal lab findings: Abnormal Labs 12/01/21 12/01/21 12/01/21 09:55 14:47 14:48 WBC 12.0 H RBC 2.44 L Hgb 7.1 L Hct 22.8 L MCHC RDW 16.2 H Plt Count 529 H Immature Gran % (Auto) 0.9 H Neut % (Auto) 80.8 H Lymph % (Auto) 8.7 L Lymph # (Auto) 1.0 L Abs Immat Gran (auto) 0.11 H Absolute Neuts (auto) 9.7 H Absolute Nucleated RBC 2.460 H Nucleated RBC % (auto) 20.6 H PT INR Chloride Carbon Dioxide BUN Calcium Total Creatine Kinase B-Natriuretic Peptide 129 H Total Protein Albumin Vancomycin Trough Crossmatch See Detail 12/01/21 12/01/21 12/02/21 14:49 15:33 08:25 WBC RBC 2.68 L Hgb 7.7 L Hct 25.0 L MCHC 30.8 L RDW 16.5 H Plt Count 451 H Immature Gran % (Auto) 0.9 H Neut % (Auto) 78.4 H Lymph % (Auto) 9.4 L Lymph # (Auto) 1.0 L Abs Immat Gran (auto) 0.09 H Absolute Neuts (auto) Absolute Nucleated RBC 2.170 H Nucleated RBC % (auto) 21.1 H PT 16.7 H INR 1.5 H Chloride Carbon Dioxide 33 H BUN 17 H Calcium 8.1 L Total Creatine Kinase 19 L B-Natriuretic Peptide Total Protein 5.1 L Albumin 3.0 L Vancomycin Trough Crossmatch 12/02/21 12/03/21 12/04/21 08:25 06:14 06:22 WBC RBC Hgb 7.6 L 8.5 L Hct 24.9 L 27.5 L MCHC RDW Plt Count Immature Gran % (Auto) Neut % (Auto) Lymph % (Auto) Lymph # (Auto) Abs Immat Gran (auto) Absolute Neuts (auto) Absolute Nucleated RBC Nucleated RBC % (auto) PT INR Chloride Carbon Dioxide 32 H BUN Calcium 8.1 L Total Creatine Kinase B-Natriuretic Peptide Total Protein Albumin Vancomycin Trough Crossmatch 12/04/21 12/05/21 12/06/21 06:22 06:38 05:12 WBC RBC 3.21 L Hgb 9.0 L Hct 29.7 L MCHC 30.3 L RDW 16.6 H Plt Count 446 H Immature Gran % (Auto) Neut % (Auto) Lymph % (Auto) Lymph # (Auto) Abs Immat Gran (auto) Absolute Neuts (auto) Absolute Nucleated RBC 0.200 H Nucleated RBC % (auto) 1.9 H PT INR Chloride 94 L Carbon Dioxide 32 H 33 H BUN Calcium 8.1 L 8.2 L Total Creatine Kinase B-Natriuretic Peptide Total Protein Albumin Vancomycin Trough Crossmatch 12/06/21 16:55 WBC RBC Hgb Hct MCHC RDW Plt Count Immature Gran % (Auto) Neut % (Auto) Lymph % (Auto) Lymph # (Auto) Abs Immat Gran (auto) Absolute Neuts (auto) Absolute Nucleated RBC Nucleated RBC % (auto) PT INR Chloride Carbon Dioxide BUN Calcium Total Creatine Kinase B-Natriuretic Peptide Total Protein Albumin Vancomycin Trough 5.5 L Crossmatch Microbiology: Microbiology 12/01/21 14:53 Blood - Venous Blood Culture - Final No growth after 5 days. 12/01/21 14:47 Blood - Venous Blood Culture - Final No growth after 5 days. Diagnostic Findings Chest x-ray: report reviewed and image reviewed CT scan - chest: report reviewed and image reviewed Assessment and Plan (1) Multifocal pneumonia: Status: Acute (2) Respiratory failure with hypoxia: Status: Acute Plan This 61 years old gentleman with multiple medical problems as described in the history and physical. Currently has mild to moderate respiratory distress and, radiologic findings consistent with EXTENSIVE BILATERAL INFILTRATES, most likely has multifocal pneumonia. Recc . Pipracillin 3.37 mg IV q.6 hours, May add doxycycline 100 IV q.12 hours, Re consult ID . O2 2 L/MINUTE TO KEEP O2 SAT ABOVE 90% . Patient may need to be restarted on steroids part full hold off at this time because of GI bleeding. Thank you very much for asthma to see this patient. Procedures Date of Service Date of Service: 12/07/21
--- NOTE | 2021-12-07 10:10 | MHC.CLN ---
NUTRITION CONSULT FOR SKIN INTEGRITY. REDNESS NOTED TO BILATERAL COCCYX. DIET=2 GRAM SODIUM, ENSURE SUPPLEMENT TID PROVIDES 1050 KCAL, 60 G PROTEIN. PATIENT LIKES/ACCEPTS SUPPLEMENT. INTAKE SINCE ADM WITH MOST MEALS LESS THAN 50%. POOR INTAKE X 2 DAYS. CONTINUE CURRENT DIET AND SUPPLEMENT.
--- NOTE | 2021-12-07 11:12 | PM.PNCARD ---
Subjective Subjective Date of Service: 12/07/21 <HILL Pham - Last Filed: 12/07/21 11:34> 12/07/21 <Eric Javier MD - Last Filed: 12/07/21 12:18> Principal diagnosis: Congestive heart failure, anemia, rectal bleeding <HILL Pham - Last Filed: 12/07/21 11:34> Interval history: Seen at 0945. Today he is observed sitting in edge of bed. Report being in bad mood due to his chronic health conditions. Reports breathing is comfortable. No chest or abdominal pains. No rectal bleeding noted today. Has generalized weaknss. <HILL Pham - Last Filed: 12/07/21 11:34> Review of Systems Review of Systems as above <HILL Pham Last Filed: 12/07/21 11:34> Yes all other systems are reviewed and are negative <HILL Pham - Last Filed: 12/07/21 11:34> Physical Exam Vital Signs: Last Vital Signs Temp 98.6 F 12/07/21 11:03 Pulse 82 12/07/21 11:03 Resp 19 12/07/21 11:03 BP 97/55 L 12/07/21 11:03 Pulse Ox 93 12/07/21 11:03 BMI result Body Mass Index 24.0 <HILL Pham - Last Filed: 12/07/21 11:34> Const General: cooperative, no acute distress, alert and awake <HILL Pham - Last Filed: 12/07/21 11:34> Orientation/consciousness: patient oriented x3 <HILL Pham - Last Filed: 12/07/21 11:34> Neck Neck: Yes normal visual inspection <HILL Pham Last Filed: 12/07/21 11:34> Resp Effort & Inspection: normal respiratory effort and able to speak in complete sentences <HILL Pham Last Filed: 12/07/21 11:34> Auscultation: clear to auscultation bilaterally, no rales, no rhonchi and no wheezes <HILL Pham - Last Filed: 12/07/21 11:34> Cardio Rate: regular rate <Jazlyn EastonETELVINAMonico - Last Filed: 12/07/21 11:34> Rhythm: regular rhythm <Jazlyn EastonMAIRABeltran - Last Filed: 12/07/21 11:34> Heart sounds: S1 normal heart sound present and S2 normal heart sound present <Jazlyn EastonETELVINAMonico - Last Filed: 12/07/21 11:34> Neuro General: patient oriented x3 <Jazlyn EastonMAIRABeltran - Last Filed: 12/07/21 11:34> Extrem General: Yes normal to inspection and No edema <Jazlyn EastonHILL - Last Filed: 12/07/21 11:34> Objective Labs and Meds Result diagrams: : 12/06/21 05:12 12/05/21 06:38 <Jazlyn Matthews HILL Easton - Last Filed: 12/07/21 11:34> Lab results: Laboratory Results - last 24 hr 12/06/21 16:55 Vancomycin Trough 5.5 L <Jazlyn EastonMAIRABeltran - Last Filed: 12/07/21 11:34> Progress Note: A&P Assessment and plan (1) Acute on chronic diastolic (congestive) heart failure: Status: Acute <Jazlyn EastonHILL - Last Filed: 12/07/21 11:34> Assessment and Plan: Admit with sob which started during blood transfusion. His diuretics had been on hold prior to that time, likely due to low BP readings. He was treated for acute on chronic diastolic CHF and diuresed with IV Lasix. His breathing has improved and is back to baseline. He is now back on his usual home Lasix 60mg bid. We will sign off and arrange for outpt echo and cardiology follow up. <Jazlyn Matthews HILL Easton - Last Filed: 12/07/21 11:34> Admit with sob which started during blood transfusion. His diuretics had been on hold prior to that time, likely due to low BP readings. He was treated for acute on chronic diastolic CHF and diuresed with IV Lasix. His breathing has improved and is back to baseline. He is now back on his usual home Lasix 60mg bid. We will sign off and arrange for outpt echo and cardiology follow up. Patient seen and examined. Shortness of breath significantly improved. Lung exam is within normal limits with reduced air entry at the left base. From heart failure perspective he appears to be euvolemic and well compensated. Agree with p.o. switch to oral diuretic therapy. Continue to monitor for heart failure symptoms. Transfuse as needed. He has episodes of fever as well as pulmonary infiltrates. Unclear etiology. Please consult us if need be for further evaluation. Agree with pulmonary evaluation and ID follow-up. Agree with current therapy with eplerenone and Lasix. <Eric Javier MD - Last Filed: 12/07/21 12:18> (2) Cardiac resynchronization therapy defibrillator ([employer]KER-D) in place: Status: Acute <HILL Pham - Last Filed: 12/07/21 11:34> Assessment and Plan: Medtronic Bi V ICD in place. Last interrogation 11/02/21 showed COUNTER SUPERVISOR 100%, battery 6.9 years. Tele shows V paced rhythm. No indication for interrogation at this time. <HILL Pham - Last Filed: 12/07/21 11:34> Medtronic Bi V ICD in place. Last interrogation 11/02/21 showed COUNTER SUPERVISOR 100%, battery 6.9 years. Tele shows V paced rhythm. No indication for interrogation at this time. Bi V ICD working well. LV systolic function has normalized since cardiac resynchronization therapy. Could not tolerate neurohormonal modulation. Currently only on Corlanor therapy. Will review this with his primary medical records tech. <Eric Javier MD - Last Filed: 12/07/21 12:18> (3) S/P TAVR (transcatheter aortic valve replacement): Status: Acute <HILL Pham - Last Filed: 12/07/21 11:34> Assessment and Plan: TAVR early 2020. Last echo 12/18/20 shows EF 55-60%, normally functioning BioAVR. No murmur on exam. Will plan for outpt echo prior to OV. <HILL Pham - Last Filed: 12/07/21 11:34> TAVR early 2020. Last echo 12/18/20 shows EF 55-60%, normally functioning BioAVR. No murmur on exam. Will plan for outpt echo prior to OV. Status post TAVR, currently on no antiplatelets due to recurrent GI bleeds. SBE prophylaxis as per [facility] guidelines. <Eric Javier MD - Last Filed: 12/07/21 12:18> (4) Anemia: Status: Acute <HILL Pham - Last Filed: 12/07/21 11:34> Assessment and Plan: GI bleeding with recent gastric ulcer and rectal bleeding, possibly from his [place] ds. Hgb into 7s earlier this admit. Recieved partial transfusion at time of admit and then 1 unit PC. Denies active bleeding at this time. Hgb 9 today. Following with hospitalist, GI and hematology <HILL Pham - Last Filed: 12/07/21 11:34> (5) Val syndrome: Status: Acute <HILL Pham - Last Filed: 12/07/21 11:34> (6) Acute GI bleeding: Status: Acute <HILL Pham - Last Filed: 12/07/21 11:34> Time Spent With Patient Time: Total time spent is greater than 50% in coordination of care (as documented) at patient's floor/unit and/or counseling patient: 20 <HILL Pham - Last Filed: 12/07/21 11:34> Progress Note: Quality Stroke Does the patient have a stroke diagnosis?: No <HILL Pham - Last Filed: 12/07/21 11:34> Procedures Date of Service Date of Service: 12/07/21 <HILL Pham - Last Filed: 12/07/21 11:34>
[2021-12-07 12:01] LABS: Lactate Dehydrogenase 402 U/L (118-273)
--- NOTE | 2021-12-07 12:31 | W.PM.IDCN ---
History of Present Illness Data of Consult Service Date: 12/06/21 Requesting physician: Susan Perdomo Primary Care Provider: Yesica Kay MD HPI Reason for consult: recurrent fever of unknown origin He presents with fever and weakness over last week. I had seen him in hospital 11/24 when he had GI bleed. He had fever and was discharged off antibiotics He has now shortness of breath and 2 liter oxygen requirement. Review of Systems Review of Systems: Yes all other systems are reviewed and are negative [facility] Past Medical History Medical History (Updated 12/07/21 @ 12:34 by Gabriela Canada MD) Acute ITP Anemia Aortic stenosis, severe Bilateral pulmonary embolism Cardiac resynchronization therapy defibrillator (ROVING SIZER-D) in place Complete heart block Congestive heart failure COVID-19 COVID-19 vaccine series completed Halsey syndrome Fever Fever of unknown origin HFrEF (heart failure with reduced ejection fraction) Hodgkins lymphoma Hypocalcemia Hypotension (arterial) Hypothyroidism LBBB (left bundle branch block) Leukocytosis Low TSH level Lung infiltrate Multifocal pneumonia Multinodular thyroid Multinodular thyroid NICM (nonischemic cardiomyopathy) Osteoporosis Pacemaker Pulmonary embolism Recurrent pleural effusion on right Respiratory failure with hypoxia Rib fracture Rib pain Right hip pain Shortness of breath Sinus tachycardia Thrombocytopenia Vitamin D deficiency Family History Family History Father Healthy adult male Mother Bladder cancer Family history: reviewed and not pertinent Surgical History Surgical History H/O splenectomy History of appendectomy History of cardiac pacemaker History of endoscopy History of esophagogastroduodenoscopy (EGD) History of hip surgery Hx of colonoscopy S/P TAVR (transcatheter aortic valve replacement) Social History Social History Household Members: Spouse and Children Housing: House Are you a primary post acute care nurse to a significant other at home: No Do you presently have visiting nurse or other home services: No Alcohol intake: current Alcohol intake frequency: holidays/special occasions only Patient Tobacco Use Status: Never used Tobacco e-Cigarette/Vaping Use: Never Used Second Hand Smoke Exposure: No Use of substances other than those prescribed or required for medical reasons: No Currently Displaying Signs/Symptoms of Drug Intoxication Withdrawal: No Any prior treatment program specific to substance use: No Have you been hit, kicked, punched, or otherwise hurt by someone within the past year? If so, by whom?: No Do you feel safe in your current relationship?: Yes Is there a partner from a previous relationship who is making you feel unsafe now?: No Are you made to feel afraid or neglected: No Advance Directives: Yes Advance Directives Information Provided: No Advance Directives on File: Yes Advance Directives Date on File: 01/07/21 Do you have thoughts of harming others: None Do you have a plan to hurt others: No Plan Recently lost weight without trying: Unsure Eating poorly because of decreased appetite: No Nutrition Risks: No Nutritional Risk service: Yes Current occupational status: employed Current occupational exposures/hazards: No Meds Allergies Allergy/AdvReac Type Severity Reaction Status Date / Time No Known Allergies Allergy Verified 11/29/21 16:14 [No Known Allergies*] Active Medications: Current Medications Acetaminophen (Acetaminophen 325 Mg Tablet) 650 mg PO Q6H PRN PRN Reason: Pain, Mild (Pain Scale 1-3) Last Admin: 12/06/21 18:41 Dose: 650 mg Documented by: Albuterol/Ipratropium (Albuterol/Iprat 2.5/0.5mg 3 Ml Ampul.Neb) 3 ml INHALE RQ4H PRN PRN Reason: Shortness of Breath/Wheezing Ferrous Sulfate (Ferrous Sulfate 324 Mg Tablet.) 324 mg PO BIDWM [facility] Last Admin: 12/07/21 07:51 Dose: 324 mg Documented by: Furosemide (Furosemide 20 Mg Tablet) 60 mg PO BID@0900,1800 [facility]; Protocol Last Admin: 12/07/21 07:51 Dose: 60 mg Documented by: Piperacillin Sod/Tazobactam (Sod 3.375 gm/ Sodium Chloride) 50 mls @ 100 mls/hr IV Q6H [facility] Last Infusion: 12/07/21 08:07 Dose: Infused Documented by: Levothyroxine Sodium (Levothyroxine Sodium 150 Mcg Tablet) 150 mcg PO MoTuWeThFrSa@0600 [facility] Last Admin: 12/07/21 05:28 Dose: 150 mcg Documented by: Levothyroxine Sodium (Levothyroxine Sodium 150 Mcg Tablet) 300 mcg PO Cruz@0600 [facility] Last Admin: 12/05/21 05:49 Dose: 300 mcg Documented by: Patient Own Med ( Ivabradine [Corlanor ] 5 Mg Tablet) 5 mg PO BIDWM [facility] Last Admin: 12/07/21 07:52 Dose: 5 mg Documented by: Omeprazole (Omeprazole 40 Mg Capsule.) 40 mg PO BID@0630,1630 [facility] Last Admin: 12/07/21 05:28 Dose: 40 mg Documented by: Ondansetron HCl (Ondansetron Hcl 4 Mg/2 Ml Vial) 4 mg IVPUSH Q8H PRN PRN Reason: Nausea and Vomiting Last Admin: 12/07/21 05:28 Dose: 4 mg Documented by: Pharmacy Consult (Consult Rx Perform Med Rec) 1 each MISCELLANE ONCE PRN PRN Reason: Consult order Pharmacy Consult (Consult Rx Vancomycin Dosing) 1 each MISCELLANE DAILY PRN PRN Reason: Consult order Sodium Chloride (0.9 % Sodium Chloride Flush 3 Ml Syringe) 3 ml IVFLUSH QSHIFT [facility] Last Admin: 12/06/21 23:46 Dose: 3 ml Documented by: Home Medications Medication Instructions Recorded Confirmed Last Taken Type eplerenone 25 mg tablet (Inspra) 25 mg PO DAILY 11/05/21 12/01/21 11/30/21 History levothyroxine 125 mcg tablet 300 mcg PO CRUZ 11/18/21 12/01/21 11/28/21 History (Synthroid) levothyroxine 150 mcg tablet 150 mcg PO MOTUWETHFRSA 11/18/21 12/01/21 12/01/21 History furosemide 20 mg tablet 60 mg PO BID 12/01/21 12/01/21 11/30/21 History ivabradine 5 mg tablet (Corlanor) 5 mg PO BIDWM 12/01/21 12/01/21 11/30/21 History Physical Exam Vital Signs: Vital Signs: Last Vital Signs Temp 98.6 F 12/07/21 11:03 Pulse 82 12/07/21 11:03 Resp 19 12/07/21 11:03 BP 97/55 L 12/07/21 11:03 Pulse Ox 93 12/07/21 11:03 BMI result Body Mass Index 24.0 Const: General: cooperative HEENT: Head: Yes normal to inspection Mouth: Normal oral and palatal mucosa present Resp: Effort & Inspection: normal respiratory effort Cardio: Rate: regular rate Rhythm: regular rhythm GI: Palpation (GI): Soft to palpation and nontender Skin: General skin exam: no rashes or lesions noted Results Labs CBC & Chem 7: 12/06/21 05:12 12/05/21 06:38 Microbiology Microbiology Results: Microbiology 12/01/21 14:53 Blood - Venous Blood Culture - Final No growth after 5 days. 12/01/21 14:47 Blood - Venous Blood Culture - Final No growth after 5 days. Assessment and Plan (1) Fever: Status: Acute His radiology studies of lung look about same. He could have aspiration pneumonia with some organisms such as gram negative with recent hospital stay He also could have atypical pneuomonia. He is day 6 piperacillin/tazobactam He still has intermittent fever Plan Would check urine Legionella antigen. Finish another day Zosyn and stop Add po Azithromycin for a week (doubt MRSA as swab negative) Oncology can follow ITP ?cause fever
--- NOTE | 2021-12-07 12:49 | HO.PM.IMPN ---
Subjective Subjective Date of Service: 12/08/21 Interval History: Sitting comfortably, offers no acute complaints noted to have intermittent low-grade fever, persistent dry cough, denies worsening shortness of breath, no nausea, no vomiting, no abdominal pain, no recurrent bout of bright red blood per rectum. Review of Systems Review of Systems: Yes all other systems are reviewed and are negative Physical Exam Vital Signs: Vital Signs: Last Vital Signs Temp 98.6 F 12/07/21 11:03 Pulse 82 12/07/21 11:03 Resp 19 12/07/21 11:03 BP 97/55 L 12/07/21 11:03 Pulse Ox 93 12/07/21 11:03 BMI result Body Mass Index 24.0 Const: Other: General: awake alert x3, no acute distress neck no JVD Resp:? Clear to auscultation, bilateral scattered rhonchi , no use of accessory muscles CVS: S1,S2,RRR, no?leg edema GI: +BS, NT, no distention extremities no lower extremity edema, left upper extremity swollen, nontender, no hyperemia Skin: No rash Neuro:? motor grossly intact Psych:?appropriate affect Objective Data Active Medications Acetaminophen (Acetaminophen 325 Mg Tablet) 650 mg PO Q6H PRN PRN Reason: Pain, Mild (Pain Scale 1-3) Last Admin: 12/06/21 18:41 Dose: 650 mg Documented by: JOSE JUAN Albuterol/Ipratropium (Albuterol/Iprat 2.5/0.5mg 3 Ml Ampul.Neb) 3 ml INHALE RQ4H PRN PRN Reason: Shortness of Breath/Wheezing Ferrous Sulfate (Ferrous Sulfate 324 Mg Tablet.) 324 mg PO BIDWM [facility] Last Admin: 12/07/21 07:51 Dose: 324 mg Documented by: SAVANNA Furosemide (Furosemide 20 Mg Tablet) 60 mg PO BID@0900,1800 [facility]; Protocol Last Admin: 12/07/21 07:51 Dose: 60 mg Documented by: SAVANNA Piperacillin Sod/Tazobactam (Sod 3.375 gm/ Sodium Chloride) 50 mls @ 100 mls/hr IV Q6H [facility] Last Infusion: 12/07/21 08:07 Dose: 0 mls/hr Documented by: SAVANNA Azithromycin 500 mg/ Sodium (Chloride) 250 mls @ 125 mls/hr IV Q24H [facility] Levothyroxine Sodium (Levothyroxine Sodium 150 Mcg Tablet) 150 mcg PO MoTuWeThFrSa@0600 [facility] Last Admin: 12/07/21 05:28 Dose: 150 mcg Documented by: MARICARMEN Levothyroxine Sodium (Levothyroxine Sodium 150 Mcg Tablet) 300 mcg PO Russell@0600 [facility] Last Admin: 12/05/21 05:49 Dose: 300 mcg Documented by: RAMA Patient Own Med ( Ivabradine [Corlanor ] 5 Mg Tablet) 5 mg PO BIDWM [facility] Last Admin: 12/07/21 07:52 Dose: 5 mg Documented by: SAVANNA Omeprazole (Omeprazole 40 Mg Capsule.) 40 mg PO BID@0630,1630 [facility] Last Admin: 12/07/21 05:28 Dose: 40 mg Documented by: MARICARMEN Ondansetron HCl (Ondansetron Hcl 4 Mg/2 Ml Vial) 4 mg IVPUSH Q8H PRN PRN Reason: Nausea and Vomiting Last Admin: 12/07/21 05:28 Dose: 4 mg Documented by: MARICARMEN Pharmacy Consult (Consult Rx Perform Med Rec) 1 each MISCELLANE ONCE PRN PRN Reason: Consult order Pharmacy Consult (Consult Rx Vancomycin Dosing) 1 each MISCELLANE DAILY PRN PRN Reason: Consult order Sodium Chloride (0.9 % Sodium Chloride Flush 3 Ml Syringe) 3 ml IVFLUSH QSHIFT [facility] Last Admin: 12/06/21 23:46 Dose: 3 ml Documented by: MARICARMEN Labs CBC & Chem 7: 12/08/21 05:53 12/05/21 06:38 Labs: Laboratory Results - last 24 hr 12/05/21 12/06/21 06:38 16:55 Lactate Dehydrogenase 402 H Vancomycin Trough 5.5 L Microbiology Microbiology Results: Microbiology 12/01/21 14:53 Blood Culture - Final Blood - Venous No growth after 5 days. 12/01/21 14:47 Blood Culture - Final Blood - Venous No growth after 5 days. Assessment and Plan (1) Acute on chronic diastolic (congestive) heart failure: Status: Acute (2) Hypothyroidism: Status: Acute Plan 61-year-old male with a past medical history of hypertension, hyperlipidemia, history of severe aortic stenosis, bioprosthetic aortic wall, LBBB, CHF status post AICD, hypothyroidism, history of complete heart block, Hodgkin's lymphoma,? 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 ? Admitted for following Acute on chronic HFpEF Status post AICD. history of non ischemc cardiomyopathy:? CHF exacerbation likely due to blood transfusion and with recent decrease in antidiuretic dose Shortness of breath improved , no PND, no orthopnea, Continue Lasix 60 mg b.i.d. Oxygen stable on 2 L, will wean off oxygen patient not on home O2. Recommend out of bed to chair and ambulate as tolerated Chest pain: Resolved was atypical. EKG non ischemic; Trop- 9.8. Seen by Cardiology no further workup needed Bright red blood per rectum Had 2 episodes on 12/02 , and 12/03 likely due to sangeeta syndrome with colonic polyps No recurrent episode in last 48 hours Hematocrit stable, Last colonoscopy January 27 showed polyps otherwise no other abnormality, recommend outpatient follow-up with GI , outpatient video capsule study as per GI Continue by mouth PPI Acute on chronic Anemia due to acute blood loss likely from colonic polyps No recurrent episode of bright red blood per rectum in last 48 hours, hematocrit improved s/p 1 unit of packed RBC history of hypothyroidism:? Continue home levothyroxine History of ITP platelet count stable prednisone discontinued due to gastric ulcer. Fever Unknown etiology Likely due to bilateral pneumonia, UA benign Noted to have low-grade fevers Normal procalcitonin level, MRSA nares negative, blood cultures times 48 hour negative, chest x-ray showed persistent bilateral patchy opacity that seems nonspecific, no interval improvement compared to chest radiograph 11/29 Question related to pulmonary edema or multi lobar pneumonia, chronic small bilateral pleural effusion, WBC normalized On IV Zosyn day [address] Hirsch he recommend to continue Zosyn and added IV doxycycline 100 mg b.i.d. Continue supportive care With history of underlying lymphoma case discussed with Dr. Merchant she recommend CT abdomen and pelvis and left upper extremity ultrasound to rule out DVT Will check CRP/sed rate Await ID input DVT prophylaxis:? SCD boots Code status:? Full code Patient will need continued inpatient hospitalization due to pneumonia with recurrent fevers on IV antibiotics, getting further workup to find out cause of recurrent fevers Quality Stroke Does the patient have a stroke diagnosis?: No VTE Prior VTE?: No VTE Risk Level:: Medical - moderate - high VTE Device Contraindication: Treatment Not Indicated VTE Drug Contraindication: N/A - Med Ordered
[2021-12-07] MEDS: 0.9 % Sodium Chloride Flush 3 ML SYRINGE IVFLUSH (16:38)
[2021-12-07] MEDS: Azithromycin 500 MG in 0.9 % Sodium Chloride 250 ML 125 MG IV (17:31)
--- NOTE | 2021-12-07 18:37 | PM.EVENT ---
61-year-old gentleman with a remote history of Hodgkin's lymphoma. He recently developed ITP. He was given a course of steroids. Subsequently received rituximab weekly x4. With that his platelet count has normalized. However he ended up getting GI bleeding likely related to the steroids. He has been treated for that. He has been admitted for shortness of breath. Combination of congestive heart failure along with bilateral infiltrates indicative of pneumonia. He is on broad-spectrum antibiotics. He has had ongoing fevers. Fevers are 100.8 range. On exam he has left upper extremity edema and mottling. My Concern is DVT. DATA Base: CBC: WBC 10.8, HGB 9.1, HCT 30.4, PLT 507. PLAN: Proceed with ultrasound of his left upper extremity. Proceed with CT of the abdomen to look for a source of fever there. Meanwhile broaden the coverage to add antifungal coverage, in view of his immunosuppressed status. Would start anticoagulation with Lovenox if proven to have DVT. Thank you, Addendum: U/S revealed LUE DVT, and superficial thrombophlebitis. Abdominal CAT Scan: Improved lung infiltrates and effusions. Otherwise non revealing for any obvious source of fever. Fever is related to the DVT. Will give Lovenox. Antibiotics for phlebitis.
--- NOTE | 2021-12-07 20:32 | MHC.PIE ---
BP low - 80's systolic - see vital documentation. Assessed manually & with machine. Patient assisted back to bed - BP reassessed- improved - 98/57. Patient still drowsy, arousable. Very hard of hearing. Incont of small amt urine - cleaned and linens changed. Dr Velazquez shown trend of vital signs - aware and r/t CHF will not give fluids at this time since BP >90 at this time.
--- NOTE | 2021-12-07 22:17 | PM.EVENT ---
Event Note Date of Service: 12/07/21 Event Note: US showed upper extremity dvt. pt started on lovenox per hematology/oncology note
[2021-12-07 22:50] LABS: Hematocrit 30.4 % (42.0-52.0); Hemoglobin 9.1 g/dl (14.0-18.0); Mean Corpuscular HGB Conc 29.9 g/dl (31.0-36.0); Mean Corpuscular Hemoglobin 27.6 pg (27.0-33.0); Mean Corpuscular Volume 92.1 fL (80.0-98.0); Mean Platelet Volume 10.3 fL (9.4-12.4); NRBC Pct Auto 0.6 /100WBC (0.0-0.2); Platelet Count 507 X10*3/uL (160-400); Red Cell Distribution Width 16.3 % (11.0-16.0); White Blood Count 10.8 X10*3/uL (4.8-10.8)
[2021-12-07 22:58] LABS: INTERNATIONAL NORM RATIO 1.4 (0.9-1.1); Prothrombin Time 15.7 SEC (9.9-13.0)
[2021-12-07 23:00] LABS: Partial Thromboplastin Time 40.7 SEC (24.1-38.0)
[2021-12-08] MEDS: Enoxaparin Sodium 80 MG/0.8 ML SYRINGE 70 MG SUBCUT ×2 (01:15→11:54)
[2021-12-08] MEDS: Piperacillin Sodium/Tazobactam 3.375 GM in 0.9 % Sodium Chloride 50 ML IV ×2 (01:15→06:49)
[2021-12-08] MEDS: 0.9 % Sodium Chloride Flush 3 ML SYRINGE IVFLUSH ×3 (01:15→09:54)
[2021-12-08 03:39] VITALS: BP 109/55; PULSE 91; RESP 17; TEMP 36.6; O2SAT 92
[2021-12-08] MEDS: Omeprazole 40 MG CAPSULE.DR PO (06:49)
[2021-12-08] MEDS: Levothyroxine Sodium 150 MCG TABLET PO (06:49)
[2021-12-08 06:52] LABS: Hematocrit 29.6 % (42.0-52.0); Hemoglobin 9.2 g/dl (14.0-18.0); Mean Corpuscular HGB Conc 31.1 g/dl (31.0-36.0); Mean Corpuscular Hemoglobin 28.6 pg (27.0-33.0); Mean Corpuscular Volume 91.9 fL (80.0-98.0); Mean Platelet Volume 10.5 fL (9.4-12.4); NRBC Pct Auto 0.6 /100WBC (0.0-0.2); Platelet Count 481 X10*3/uL (160-400); Red Blood Count 3.22 X10*6/uL (4.60-5.80); Red Cell Distribution Width 16.3 % (11.0-16.0)
--- NOTE | 2021-12-08 07:32 | MHC.PIE ---
P: low BP 80'S, patient reported not feeling well. (see vital sign documentation). I: reassessed BP manually, assisted patient from recliner to bed. E: BP improved to 90's systolic once back to bed. I: Dr Velazquez made aware - no new orders at this time. E: BP remained stable through night.
[2021-12-08 07:43] VITALS: BP 81/52; PULSE 86; RESP 19; TEMP 37.3; O2SAT 92
[2021-12-08 09:52] VITALS: BP 91/54
[2021-12-08] MEDS: Furosemide 20 MG TABLET 60 MG PO (09:54)
[2021-12-08] MEDS: Ferrous Sulfate 324 MG TABLET.DR PO (09:55)
[2021-12-08 11:23] VITALS: BP 106/61; PULSE 95; RESP 17; TEMP 36.7; O2SAT 92
[2021-12-08 11:37] VITALS: BP 106/61; PULSE 95; O2SAT 92
--- NOTE | 2021-12-08 12:17 | MHC.CM.PN ---
pt to be dcd today with hvns for home pt and skileled nursing
--- NOTE | 2021-12-08 17:02 | P.DS_ITS ---
DS: Providers Provider Date of Service: 12/08/21 Date of admission: 12/01/21 21:17 Primary care physician: Yesica Kay MD Consults: 12/01/21 21:17 Consult to Cardiology Routine Consulting Provider: Jairo Valdez Reason for consultation: chf 12/02/21 16:11 Consult to Gastroenterology Routine Consulting Provider: London Leal Reason for consultation: brbpr Has provider been notified: No 12/05/21 11:22 Consult to Infectious Diseases Routine Consulting Provider: Gabriela Canada Reason for consultation: recurrent fevers Has provider been notified: No 12/07/21 07:31 Consult to Pulmonology Routine Consulting Provider: Ailyn Hirsch Reason for consultation: b/l infiltrates hypoxia Has provider been notified: No 12/07/21 16:01 Consult to Care Team Routine Comment: Reason for consultation: depression DS: Diagnosis Discharge Diagnosis (1) Acute on chronic diastolic (congestive) heart failure: Status: Acute (2) Hypothyroidism: Status: Acute DS: Summary Hospital Course Hospital Course: Chief Complaint:? shortness of breath ?61-year-old male with a past medical history of hypertension, hyperlipidemia, history of severe aortic stenosis, bioprosthetic aortic wall, LBBB, CHF status post AICD, hypothyroidism, history of complete heart block, Hodgkin's lymphoma,? 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 Patient reports that he has had anemia and went to the clinic for outpatient blood transfusion and developed shortness of breath and subsequently sent to the ER for further evaluation.? Reports he has been complaint with his home medications.? The week prior he was started on Lasix for few days; for the past few days he has been taking his home medications.? Denies any orthopnea PND.? Denies any chest pain or palpitations.? Denies any fever chills cough, GI symptoms.? Review of all other systems is negative except mentioned above ER course: Per ER team patient was noted to be short of breath, chest x-ray showed mild pleural effusions; CT chest also showed patchy infiltrates but patient denied any cough or sputum production denies any fevers.? Did not consider antibiotics- presume these findings to be secondary to CHF.? Given Lasix.? Patient also being ordered 1 unit of PRBC.? Admitted for further management. Hospital course 61-year-old male with a past medical history of hypertension, hyperlipidemia, history of severe aortic stenosis, bioprosthetic aortic wall, LBBB, CHF status post AICD, hypothyroidism, history of complete heart block, Hodgkin's lymphoma,? 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 Admitted for following Acute on chronic HFpEF Status post AICD. history of non ischemc cardiomyopathy, patient treated aggressively with intravenous Lasix, CHF exacerbation was likely related to recent blood transfusion and with recent decrease in antidiuretic do se patient responded well to IV diuretic therapy, was followed closely by Cardiology, dose of baseline Lasix has been increased to 60 mg b.i.d. currently patient appears euvolemic, oxygen has been weaned off patient is being discharged home with recommendation to have close outpatient cardiology follow up. Chest pain:? Resolved was atypical. EKG non ischemic; Trop- 9.8.? Seen by Cardiology no further workup needed acute on chronic anemia due to acute blood loss noted to have Bright red blood per rectum, 2 episodes on 12/02 , and 12/03 likely due to mj syndrome with colonic polyps. noted to have drop in hematocrit, required 1 unit of packed RBC, hematocrit improved,No recurrent episode since,Hematocrit stable, Last colonoscopy January 27 showed polyps otherwise no other abnormality, recommend outpatient follow-up with GI planned to have, outpatient video capsule study Continue by mouth PPI history of hypothyroidism:? Continue home levothyroxine History of ITP platelet count stable prednisone discontinued due to gastric ulcer, during previous hospitalization. acute Fever likely due to aspiration pneumonia with some Gram-negatives with recent hospital stay or could be due to atypical pneumonia, patient treated with IV Zosyn for [address] Canada recommend 1 week of azithromycin to cover atypicals, UA benign, MRSA nares negative, chest x-ray showed chronic bilateral opacities and stable bilateral effusion, normal procalcitonin level, blood cultures x2 negative, patient seen by Dr. Hirsch he agreed with above treatment, patient seen by Dr. Merchant, CT abdomen and pelvis obtained that showed no acute abnormality since patient is doing well with normal oxygenation he is being discharged home on by mouth azithromycin patient did not qualify for home oxygen. Fever also could be due to left upper extremity DVT left upper extremity DVT patient noted to have significant swelling of left arm Doppler study showed extensive DVT with superficial thrombophlebitis patient is being discharged home on Lovenox twice daily and has been recommended to have close outpatient follow-up with Dr. Merchant. Time Spent with Patient Time attestation: Total time spent providing and/or coordinating discharge services: Discharge coordination time: Greater than 30 minutes Quality: Safe Use of Opioids Does Pt have an Active Cancer Diagnosis on the Problem List?: No Quality: Stroke Does the patient have a stroke diagnosis?: No Physical Exam Vital Signs: Vital Signs: Last Vital Signs Temp 98.0 F 12/08/21 11:23 Pulse 95 12/08/21 11:37 Resp 17 12/08/21 11:23 BP 106/61 12/08/21 11:37 Pulse Ox 92 12/08/21 11:37 BMI result Body Mass Index 24.0 Const: Other: General: awake alert x3, no acute distress neck no JVD Resp:? Clear to auscultation, bilateral scattered rhonchi , no use of accessory muscles CVS: S1,S2,RRR, no?leg edema GI: +BS, NT, no distention extremities no lower extremity edema, left upper extremity swollen, nontender, no hyperemia Skin: No rash Neuro:? motor grossly intact Psych:?appropriate affect DS: Data Data Completed and Pending Completed studies during hospitalization [Text1]: Procedures Control Bleeding in Gastrointestinal Tract, Via Natural or Artificial Opening Endoscopic (11/18/21) Drainage of Bone Marrow, Percutaneous Approach, Diagnostic (09/20/21) Excision of Stomach, Pylorus, Via Natural or Artificial Opening Endoscopic, Diagnostic (01/13/21) Extraction of Iliac Bone Marrow, Percutaneous Approach, Diagnostic (09/20/21) Inspection of Lower Intestinal Tract, Via Natural or Artificial Opening Endoscopic (01/13/21) Inspection of Upper Intestinal Tract, Via Natural or Artificial Opening Endoscopic (11/18/21) Introduction of Other Therapeutic Substance into Upper GI, Via Natural or Artificial Opening Endoscopic (11/18/21) Reposition Left Upper Femur with Internal Fixation Device, Percutaneous Approach (01/25/21) Transfusion of Nonautologous Red Blood Cells into Peripheral Vein, Percutaneous Approach (11/18/21) Labs on day of discharge: Laboratory Results - last 24 hr 12/07/21 12/07/21 12/08/21 22:31 22:31 05:53 WBC 10.8 11.0 H RBC 3.30 L 3.22 L Hgb 9.1 L 9.2 L Hct 30.4 L 29.6 L MCV 92.1 91.9 MCH 27.6 28.6 MCHC 29.9 L 31.1 RDW 16.3 H 16.3 H Plt Count 507 H 481 H MPV 10.3 10.5 Absolute Nucleated RBC 0.070 H 0.070 H Nucleated RBC % (auto) 0.6 H 0.6 H PT 15.7 H INR 1.4 H APTT 40.7 H Discharge Plan Discharge Patient Disposition: Home Health Service Discharge Diagnosis: Acute on chronic heart failure with preserved EF Acute blood loss anemia Pneumonia Left upper extremity dvt Referrals: [facility] [Other] - 1 Week Yesica Burden MD [Primary Care Provider] - 1 Week Discharge Medications: New azithromycin 250 mg tablet 250 mg PO DAILY 6 Days Qty: 6 0RF Rx Instructions: start on day 2 of therapy Continued eplerenone [Inspra] 25 mg tablet 25 mg PO DAILY 0RF levothyroxine [Synthroid] 125 mcg tablet 300 mcg PO CRUZ 0RF levothyroxine 150 mcg tablet 150 mcg PO MOTUWETHFRSA 0RF Rx Instructions: 1 pill per day 6 days a week and 2 pills one day a week omeprazole 40 mg Capsule,Delayed Release(Dr/Ec) 40 mg PO BID@0630,1630 Qty: 60 0RF furosemide 20 mg tablet 60 mg PO BID 0RF Corlanor 5 mg tablet 5 mg PO BIDWM 0RF Rx Instructions: must administer with a meal/food Changed ferrous sulfate 325 mg (65 mg iron) tablet 325 mg PO BID 90 Days Qty: 90 1RF No Action enoxaparin 60 mg/0.6 mL Syringe 60 mg subcut Q12H 30 Days Qty: 36 0RF Discharge Orders: Discharge Order (Routine); Ordered 12/08/21 Ordered By: Susan Perdomo Diet: advance to usual diet Activity on Discharge: As tolerated Stand Alone Forms: Patient Portal Discharge page Care Plan Goals: Take Lovenox subcu twice daily for left arm DVT, take azithromycin 250 mg 1 tab let daily for 6 more days,Take all home medications as prescribed, return to check with worsening shortness of breath, chest pain lightheadedness or dizziness. Health Concerns: As above Plan of Treatment: Outpatient follow-up with Dr. Merchant in 1 week/outpatient follow-up with Cardiology Dr. Wyman in 1-2 weeks for appointment. Assessment: As per discharge summary Discharge Date/Time: 12/08/21 15:00
[2021-12-13 23:26] LABS: Legionella Ag Urine Not Detected (Not Detected)
--- NOTE | 2021-12-25 18:52 | PM.HEMONCPN ---
Medical Summary - Medical Summary Date of Service: 12/07/21 Chief complaint: Follow-up for: 1. DVT. 2. ITP. 3. Hodgkin lymphoma. Medical Summary: Diagnosis: 1. DVT of left upper extremity. 2. ITP. 3. Hodgkin lymphoma. Interval History Interval history: 61-year-old gentleman with a remote history of Hodgkin's lymphoma. He recently developed ITP. He was given a course of steroids. Subsequently received rituximab weekly x4. With that his platelet count has normalized. However he ended up getting GI bleeding likely related to the steroids. He has been treated for that. He has been admitted for shortness of breath. Combination of congestive heart failure along with bilateral infiltrates indicative of pneumonia. He is on broad-spectrum antibiotics. He has had ongoing fevers. Fevers are 100.8 range. On exam he has left upper extremity edema and mottling. Review of Systems - Constitutional Reports no additional constitutional complaints, Reports weakness, Reports weight loss - Eyes Reports no additional eye complaints - ENT Reports no additional ear, nose, mouth, and throat complaints - Cardiovascular Reports no additional cardiovascular complaints - Respiratory Reports no additional respiratory complaints - Gastrointestinal Reports no additional gastrointestinal complaints - Genitourinary Genitourinary: Reports no additional male genitourinary complaints - Musculoskeletal Reports no additional musculoskeletal complaints Comments: Left upper extremity swelling and mottling and tenderness - Integumentary/Breasts Skin/Breast: Reports no additional skin complaints - Neurologic Reports no additional neurologic complaints - Psychiatric Reports no additional psychiatric complaints - Endocrine Reports no additional endocrine complaints - Hematologic/Lymphatic Reports no additional hematologic/lymphatic complaints - Allergic/Immunologic Reports no additional allergic/immunologic complaints [facility] Medical History: Medical History (Last Updated 12/14/21 @ 13:54 by Yesica Kay MD) Anemia Anemia Aortic stenosis, severe Bilateral pulmonary embolism Cardiac resynchronization therapy defibrillator (TRAIL[employer] TR[employer] DRIVER-D) in place Complete heart block Congestive heart failure COVID-19 COVID-19 vaccine series completed Parowan syndrome 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Fever Fever of unknown origin HFrEF (heart failure with reduced ejection fraction) Hodgkins lymphoma Hypotension (arterial) Hypothyroidism LBBB (left bundle branch block) Leukocytosis Pacemaker Pulmonary embolism Recurrent pleural effusion on right Respiratory failure with hypoxia Shortness of breath Sinus tachycardia Thrombocytopenia Functional capacity: uses cane/walker Patient : No Family History: Family History (Last Reviewed 12/14/21 @ 13:28 by YARI Castillo) Father Healthy adult male Mother Bladder cancer Family history: reviewed and not pertinent Surgical History: Surgical History (Last Reviewed 12/14/21 @ 13:28 by YARI Castillo) H/O splenectomy History of appendectomy History of cardiac pacemaker History of endoscopy History of esophagogastroduodenoscopy (EGD) History of hip surgery Hx of colonoscopy S/P TAVR (transcatheter aortic valve replacement) Social History: Social History (Last Reviewed 12/14/21 @ 13:28 by YARI Castillo) Living Situation History: Household Members: Spouse Household Members: Children Housing: House Are you a primary acute care certified nursing assistant to a significant other at home: No Do you presently have visiting nurse or other home services: No Alcohol History Details: 1. How often do you have a drink containing alcohol?: b. Monthly or less 2. How many drinks containing alcohol do you have on a typical day when you are drinking?: a. 1 or 2 Tobacco History: Patient Tobacco Use Status: Never used Tobacco e-Cigarette/Vaping Use: Never Used Second Hand Smoke Exposure: No Substance Use History: Use of substances other than those prescribed or required for medical reasons: No Domestic Abuse History: Have you been hit, kicked, punched, or otherwise hurt by someone within the past year? If so, by whom?: No Do you feel safe in your current relationship?: Yes Advance Directives: Advance Directives: No Advance Directives Information Provided: No Advance Directives Date on File: 01/07/21 Homicidal Assessment: Do you have thoughts of harming others: None Do you have a plan to hurt others: No Plan Do you have the means to hurt others: No Nutrition Assessment: Recently lost weight without trying: No Patient : No Occupation Assessmet: service: Yes Current occupational status: employed Current occupational exposures/hazards: No Oncology Screenings - ECOG Performance Status ECOG Performance Status: 1 Home Medications and Allergies Home Medications Medication Instructions Recorded Confirmed Type eplerenone 25 mg tablet (Inspra) 25 mg PO DAILY 11/05/21 12/14/21 History levothyroxine 125 mcg tablet 300 mcg PO CRUZ 11/18/21 12/14/21 History (Synthroid) levothyroxine 150 mcg tablet 150 mcg PO [id number] 11/18/21 12/14/21 History furosemide 20 mg tablet 60 mg PO BID 12/01/21 12/14/21 History Allergies Allergy/AdvReac Type Severity Reaction Status Date / Time No Known Allergies Allergy Verified 12/14/21 13:49 [No Known Allergies*] Exam Vital signs: Vital Signs Temp 98.0 F 12/08/21 11:23 Pulse 95 12/08/21 11:37 Resp 17 12/08/21 11:23 BP 106/61 12/08/21 11:37 Pulse Ox 92 12/08/21 11:37 O2 Del Method 12/08/21 11:23 O2 Flow Rate 1 12/08/21 07:43 Weight 73.9 kg BMI result Body Mass Index 24.0 - Constitutional Present: no acute distress - Routine HEENT Exam Head: Present: normal inspection Eye: Present: normal appearance ENT: Present: mucous membranes moist - Routine Neck Exam Present: full ROM - Routine Respiratory Exam Present: CTAB - Routine Cardiovascular Exam Cardiovascular: Present: RRR, S1, S2 - Routine Abdominal Exam Present: soft, nontender - Routine Extremities Exam Present: nontender Comments: Edema of left upper extremity, mottling, tenderness. - Routine Back/Spine/Pelvis Exam Back/Spine: Present: full ROM - Routine Skin Exam Present: intact - Routine Neurological Exam Present: alert, oriented X3 - Routine Psychiatric Exam Present: normal affect Data - Labs CBC & Chem 7: 12/08/21 05:53 12/05/21 06:38 Labs: 12/01/21 ECG 12 lead EKG Stat ECG 12 lead EKG Stat Occult Blood, Stool x1 [OBSX1] Stat 12/01/21 09:55 Red Blood Cells Routine Type and Screen Routine 12/01/21 12:59 EKG Documentation DIRECTED 12/01/21 14:24 Continuous Cardiac Monitoring NOW Pulse Oximetry CONT 12/01/21 14:47 B Type Natriuretic Peptide Stat Troponin-I High Sensitivity Stat 12/01/21 14:48 Complete Blood Count Auto Diff Stat Lactic Acid Stat 12/01/21 14:49 Comprehensive Met. Panel Stat Creatine Kinase Total Stat 12/01/21 14:53 Blood Culture X2 [BC] Stat 12/01/21 14:54 COVID-19 ID NOW ([place]) Stat Influenza A B2 ID NOW ([place]) Stat 12/01/21 15:33 D Dimer High Sensitivity Stat Partial Thromboplastin Time Stat Prothrombin Time INR Stat 12/01/21 16:07 CT angio chest PE protocol Stat 12/01/21 16:24 Consult Rx Perform Med Rec 1 each MISCELLANE ONCE PRN 12/01/21 16:46 iohexoL 350 MG/ML [Omnipaque 350 MG/ML] 100 ml IV ONCE ONE 12/01/21 16:54 UA CC w/rflx Micro + Cult Stat 12/01/21 17:23 Acetaminophen [Tylenol] 975 mg PO ONCE ONE 12/01/21 17:42 Morphine Sulfate 1 mg IVPUSH ONCE ONE 12/01/21 18:22 Furosemide [Lasix] 10 mg IVPUSH ONCE ONE 12/01/21 21:17 Cont. Telemetry w/Vital Sign limit Q4HR IV insert/maintain DAILY@1000,2200 Intake and Output Q8HR Pulse Oximetry Q4HR Vital Signs Q4HR Code Status Routine Acetaminophen [Tylenol] 650 mg PO Q6H PRN 12/01/21 21:26 PNEUMATIC [Compression Therapy] QSHIFT 12/01/21 22:57 EKG Documentation DIRECTED Morphine Sulfate 1 mg IVPUSH Q4H PRN 12/01/21 23:40 Albuterol/Iprat 2.5/0.5MG 3 ML [Duoneb] 3 ml INHALE RQ4H PRN 12/01/21 23:51 Troponin-I High Sensitivity Stat 12/02/21 00:00 0.9 % Sodium Chloride Flush [NS Flush] 3 ml IVFLUSH QSHIFT 12/02/21 00:21 Transfusion Reaction Stat Transfusion Rxn Urine Blood Stat 12/02/21 06:00 Levothyroxine Sodium [Synthroid] 150 mcg PO MoTuWeThFrSa@0600 12/02/21 06:30 Omeprazole [PriLOSEC] 40 mg PO BID@0630,1630 12/02/21 08:00 Furosemide [Lasix] 40 mg IVPUSH BIDWM ivabradine [Corlanor] 5 mg PO BIDWM 12/02/21 08:25 Basic Metabolic Panel AM Complete Blood Count Auto Diff AM 12/02/21 09:00 Ferrous Sulfate 324 mg PO DAILY 12/02/21 12:10 Urine Hemoglobin Stat 12/02/21 16:30 Pantoprazole Sodium [Protonix] 40 mg IVPUSH BID@0630,1630 12/02/21 23:52 diphenhydrAMINE HCL [Benadryl] 25 mg PO ONCE ONE 12/03/21 02:13 Dietitian / Nutrition Consult .Routine 12/03/21 06:14 Hgb & Hct [Hemoglobin and Hematocrit] AM 12/03/21 13:02 Consult Rx Vancomycin Dosing 1 each MISCELLANE DAILY PRN 12/03/21 13:15 Piperacillin Sodium/Tazobactam [Zosyn] 3.375 gm 0.9 % Sodium Chloride [Ns] 50 ml IV Q6H 12/03/21 14:00 vancomycin HCL 1,500 mg 0.9 % Sodium Chloride [Ns] 500 ml IV ONCE 12/03/21 17:00 Ferrous Sulfate 324 mg PO BIDWM 12/03/21 18:07 Piperacillin Sodium/Tazobactam [Zosyn] 3.375 gm IV .STK-MED ONE 12/03/21 18:55 vancomycin HCL 1,500 mg IV .STK-MED ONE 12/04/21 01:40 Piperacillin Sodium/Tazobactam [Zosyn] 3.375 gm IV .STK-MED ONE 12/04/21 02:00 vancomycin HCL 1,000 mg 0.9 % Sodium Chloride [Ns] 250 ml IV Q12H 12/04/21 05:17 Piperacillin Sodium/Tazobactam [Zosyn] 3.375 gm IV .STK-MED ONE vancomycin HCL 1,000 mg .ROUTE .STK-MED ONE 12/04/21 06:00 Resp Pathogen Panel - [facility] Urgent 12/04/21 06:22 BMP [Basic Metabolic Panel] AM Hgb & Hct [Hemoglobin and Hematocrit] AM Procalcitonin Routine 12/04/21 07:00 vancomycin HCL 1,000 mg 0.9 % Sodium Chloride [Ns] 250 ml IV Q12H 12/04/21 07:49 Add Laboratory Test Routine 12/04/21 12:47 Piperacillin Sodium/Tazobactam [Zosyn] 3.375 gm IV .STK-MED ONE 12/04/21 13:55 Piperacillin Sodium/Tazobactam [Zosyn] 3.375 gm IV .STK-MED ONE 12/04/21 16:30 Omeprazole [PriLOSEC] 40 mg PO BID@0630,1630 12/04/21 18:00 Furosemide [Lasix] 60 mg PO BID@0900,1800 12/04/21 18:06 vancomycin HCL 1,000 mg .ROUTE .STK-MED ONE 12/04/21 19:58 Piperacillin Sodium/Tazobactam [Zosyn] 3.375 gm IV .STK-MED ONE 12/05/21 00:51 Piperacillin Sodium/Tazobactam [Zosyn] 3.375 gm IV .STK-MED ONE 12/05/21 06:00 Levothyroxine Sodium [Synthroid] 300 mcg PO Cruz@0600 12/05/21 06:38 Basic Metabolic Panel Routine Lactate Dehydrogenase Routine Procalcitonin Routine Vancomycin Trough Stat 12/05/21 06:43 Piperacillin Sodium/Tazobactam [Zosyn] 3.375 gm IV .STK-MED ONE 12/05/21 07:51 vancomycin HCL 1,000 mg .ROUTE .STK-MED ONE 12/05/21 08:00 XR chest 2V Routine 12/05/21 13:50 Piperacillin Sodium/Tazobactam [Zosyn] 3.375 gm IV .STK-MED ONE 12/05/21 19:27 Piperacillin Sodium/Tazobactam [Zosyn] 3.375 gm IV .STK-MED ONE 12/05/21 23:52 Dietitian / Nutrition Consult .Routine 12/06/21 01:03 Airloss Bed ONCE 12/06/21 03:01 Piperacillin Sodium/Tazobactam [Zosyn] 3.375 gm IV .STK-MED ONE 12/06/21 05:12 Complete Blood Count no Diff AM 12/06/21 08:47 Piperacillin Sodium/Tazobactam [Zosyn] 3.375 gm IV .STK-MED ONE 12/06/21 12:02 Nursing Notification [Communication Order] NOW 12/06/21 14:04 Piperacillin Sodium/Tazobactam [Zosyn] 3.375 gm IV .STK-MED ONE 12/06/21 16:55 Vancomycin Trough Stat 12/06/21 18:07 Piperacillin Sodium/Tazobactam [Zosyn] 3.375 gm IV .STK-MED ONE 12/06/21 23:43 Piperacillin Sodium/Tazobactam [Zosyn] 3.375 gm IV .STK-MED ONE 12/07/21 CT abdomen pelvis w con Routine US venous duplex UE LT Urgent 12/07/21 05:17 ondansetron HCL [Zofran] 4 mg IVPUSH Q8H PRN 12/07/21 06:11 Piperacillin Sodium/Tazobactam [Zosyn] 3.375 gm IV .STK-MED ONE 12/07/21 12:30 Legionella Ag Urine Routine 12/07/21 12:45 Azithromycin [Zithromax] 500 mg 0.9 % Sodium Chloride [Ns] 250 ml IV Q24H 12/07/21 15:27 iohexoL 300 mg/mL [Omnipaque 300 mg/mL] 75 ml IV ONCE ONE 12/07/21 16:20 Piperacillin Sodium/Tazobactam [Zosyn] 3.375 gm IV .STK-MED ONE 12/07/21 17:24 Azithromycin [Zithromax] 500 mg IV .STK-MED ONE 12/07/21 20:02 Piperacillin Sodium/Tazobactam [Zosyn] 3.375 gm IV .STK-MED ONE 12/07/21 20:47 Dietitian / Nutrition Consult .Routine 12/07/21 22:31 Complete Blood Count no Diff Stat Partial Thromboplastin Time Stat Prothrombin Time INR Stat 12/07/21 23:00 Enoxaparin Sodium [Lovenox] 70 mg SUBCUT Q12H 12/08/21 01:11 Piperacillin Sodium/Tazobactam [Zosyn] 3.375 gm IV .STK-MED ONE 12/08/21 05:53 Complete Blood Count no Diff Routine 12/08/21 06:45 Piperacillin Sodium/Tazobactam [Zosyn] 3.375 gm IV .STK-MED ONE 12/08/21 11:00 Physical Therapy Eval & Treat NEEDED 12/08/21 15:00 Azithromycin [Zithromax] 500 mg PO Q24H 12/08/21 23:00 Enoxaparin Sodium [Lovenox] 60 mg SUBCUT Q12H Laboratory Last Values WBC 11.0 X10*3/uL (4.8-10.8) H 12/08/21 05:53 RBC 3.22 X10*6/uL (4.60-5.80) L 12/08/21 05:53 Hgb 9.2 g/dl (14.0-18.0) L 12/08/21 05:53 Hct 29.6 % (42.0-52.0) L 12/08/21 05:53 MCV 91.9 fL (80.0-98.0) 12/08/21 05:53 MCH 28.6 pg (27.0-33.0) 12/08/21 05:53 MCHC 31.1 g/dl (31.0-36.0) 12/08/21 05:53 RDW 16.3 % (11.0-16.0) H 12/08/21 05:53 Plt Count 481 X10*3/uL (160-400) H 12/08/21 05:53 MPV 10.5 fL (9.4-12.4) 12/08/21 05:53 Immature Gran % (Auto) 0.9 % (0.0-0.4) H 12/02/21 08:25 Neut % (Auto) 78.4 % (45-73) H 12/02/21 08:25 Lymph % (Auto) 9.4 % (20-40) L 12/02/21 08:25 Leon % (Auto) 8.4 % (2-11) 12/02/21 08:25 Eos % (Auto) 2.1 % (0-4) 12/02/21 08:25 Baso % (Auto) 0.8 % (0-2) 12/02/21 08:25 Lymph # (Auto) 1.0 X10*3/uL (1.2-4.9) L 12/02/21 08:25 Leon # (Auto) 0.9 X10*3/uL (0.1-1.2) 12/02/21 08:25 Eos # (Auto) 0.2 X10*3/uL (0.0-0.4) 12/02/21 08:25 Baso # (Auto) 0.1 X10*3/uL (0.0-0.2) 12/02/21 08:25 Abs Immat Gran (auto) 0.09 X10*3/uL (0.00-0.03) H 12/02/21 08:25 Absolute Neuts (auto) 8.1 x10*3/uL (2.0-8.3) 12/02/21 08:25 Absolute Nucleated RBC 0.070 X10*3/uL (0.0-0.012) H 12/08/21 05:53 Nucleated RBC % (auto) 0.6 /100WBC (0.0-0.2) H 12/08/21 05:53 PT 15.7 SEC (9.9-13.0) H 12/07/21 22:31 INR 1.4 (0.9-1.1) H 12/07/21 22:31 APTT 40.7 SEC (24.1-38.0) H 12/07/21 22:31 D-Dimer High Sensitivty 2513 NG/ML 12/01/21 15:33 Sodium 138 mmol/L (135-145) 12/05/21 06:38 Potassium 3.4 mmol/L (3.3-5.1) 12/05/21 06:38 Chloride 96 mmol/L (96-108) 12/05/21 06:38 Carbon Dioxide 33 mmol/L (22-29) H 12/05/21 06:38 Anion Gap 12 (12-20) 12/05/21 06:38 BUN 14 mg/dL (9-16) 12/05/21 06:38 Creatinine 0.89 mg/dL (0.5-1.4) 12/05/21 06:38 Estim Creat Clear Calc 89.3 12/05/21 06:38 Estimated GFR > 60 12/05/21 06:38 Random Glucose 107 mg/dL (60-115) 12/05/21 06:38 Lactic Acid 1.1 mmol/L (0.5-2.0) 12/01/21 14:48 Calcium 8.2 mg/dL (8.4-10.2) L 12/05/21 06:38 Total Bilirubin 0.6 mg/dL (0.0-1.0) 12/01/21 14:49 AST 24 U/L (5-37) 12/01/21 14:49 ALT 18 U/L (0-40) 12/01/21 14:49 Alkaline Phosphatase 45 U/L (39-117) 12/01/21 14:49 Lactate Dehydrogenase 402 U/L (118-273) H 12/05/21 06:38 Total Creatine Kinase 19 U/L (38-174) L 12/01/21 14:49 Troponin I High Sens 7.7 ng/L (<3.5-35.0) 12/01/21 23:51 B-Natriuretic Peptide 129 pg/mL (<100) H 12/01/21 14:47 Total Protein 5.1 g/dL (6.5-8.0) L 12/01/21 14:49 Albumin 3.0 g/dL (3.5-5.0) L 12/01/21 14:49 Procalcitonin 0.14 ng/mL 12/05/21 06:38 Urine Color YELLOW 12/01/21 16:54 Urine Appearance CLEAR 12/01/21 16:54 Urine pH 5.5 (5.0-8.0) 12/01/21 16:54 Ur Specific [place] 1.025 (1.005-1.025) 12/01/21 16:54 Urine Protein NEG MG/DL (NEG-TRACE) 12/01/21 16:54 Urine Glucose (UA) NEG MG/DL (NEG) 12/01/21 16:54 Urine Ketones NEG MG/DL (NEG) 12/01/21 16:54 Urine Blood NEG (NEG) 12/01/21 16:54 Ur Blood, Post-Transfus NEG 12/02/21 00:21 Urine Nitrite NEG (NEG) 12/01/21 16:54 Ur Leukocyte Esterase NEG (NEG) 12/01/21 16:54 Urine Hemoglobin NEG 12/02/21 12:10 Stool Occult Blood POSITIVE (NEGATIVE) 12/01/21 Unknown Vancomycin Trough 5.5 mcg/mL (10.0-20.0) L 12/06/21 16:55 Respiratory Panel [place] SEE NOTE 12/04/21 06:00 Adenovirus (Rapid PCR) Not Detected (Not Detect.) 12/04/21 06:00 B.pert (TEM-PCR) Not Detected (Not Detect.) 12/04/21 06:00 B.parapertussis DNA PCR Not Detected (Not Detect.) 12/04/21 06:00 C. pneumoniae DNA (PCR) Not Detected (Not Detect.) 12/04/21 06:00 Coronavirus OC43 (PCR) Not Detected (Not Detect.) 12/04/21 06:00 Coronavirus HKU1 (PCR) Not Detected (Not Detect.) 12/04/21 06:00 Coronavirus 229E (PCR) Not Detected (Not Detect.) 12/04/21 06:00 COVID-19 (SHANICE) Negative (Negative) 12/01/21 14:54 COVID-19 Clin Com See Note 12/01/21 14:54 Coronavirus NL63 (PCR) Not Detected (Not Detect.) 12/04/21 06:00 Human Metapneumovir PCR Not Detected (Not Detect.) 12/04/21 06:00 Influenza Type A (LORRIE) Negative (Negative) 12/01/21 14:54 Influenza A (RT-PCR) Not Detected (Not Detect.) 12/04/21 06:00 Influenza Type B (LORRIE) Negative (Negative) 12/01/21 14:54 Influenza B (RT-PCR) Not Detected (Not Detect.) 12/04/21 06:00 Influenza A & B Note See Note 12/01/21 14:54 Ur L.pneumophila Ag Not Detected (Not Detected) 12/08/21 01:00 M. pneumoniae (PCR) Not Detected (Not Detect.) 12/04/21 06:00 Parainfluenza 1 (PCR) Not Detected (Not Detect.) 12/04/21 06:00 Parainfluenza 2 (PCR) Not Detected (Not Detect.) 12/04/21 06:00 Parainfluenza 3 (PCR) Not Detected (Not Detect.) 12/04/21 06:00 Parainfluenza 4 (PCR) Not Detected (Not Detect.) 12/04/21 06:00 RSV (PCR) Not Detected (Not Detect.) 12/04/21 06:00 Entero/Rhino (PCR) Not Detected (Not Detect.) 12/04/21 06:00 SARS-CoV-2 RNA (RT-PCR) Not Detected (Not Detect.) 12/04/21 06:00 Blood Type A Positive 12/01/21 09:55 Antibody Screen NEGATIVE 12/01/21 09:55 Crossmatch See Detail 12/01/21 09:55 Clerical Work Check No Error Found 05/26/22 00:21 Hemolysis Bld Bag Check None in Pre and Post 12/02/21 00:21 Icterus Blood Bag Check None in Pre and Post 12/02/21 00:21 Post-Trans Blood Type A Positive 12/02/21 00:21 Post-Trans DONYA Poly NEGATIVE 12/02/21 00:21 Post-Trans Add Testing No 12/02/21 00:21 Post-Tx Rxn DONYA Result Not Reportable 12/02/21 00:21 Pathologist Comment JANELL TRIPP 12/02/21 00:21 - Imaging Radiologist's impression: ITS Impressions Chest CTA 12/01/21 16:54 IMPRESSION: 1. No evidence for pulmonary embolism. 2. Diffuse bilateral patchy infiltrates and bilateral pleural effusions, left greater than right. These are nonspecific, but suggest an infectious/inflammatory process. A cardiogenic etiology cannot be excluded. Correlate clinically. Short-term radiographic follow-up is recommended as clinically indicated. VTE: Negative. Chest X-Ray 12/05/21 09:32 IMPRESSION: * The persistent patchy bilateral point opacities are nonspecific and could represent asymmetric distribution of pulmonary edema and/or multilobar pneumonia, if in the proper clinical context. No interval improvement compared to prior chest radiograph from 11/29/2021. * Chronic small right pleural effusion. * Small left pleural effusion is present. Abdomen/Pelvis CT 12/07/21 15:25 IMPRESSION: -Bibasilar infiltrates slightly decreased. Bibasilar effusions stable. -No inflammatory changes in abdomen or pelvis. No bowel obstruction, ascites, or fluid collection. -No hydronephrosis or calculi or perinephric stranding. -No biliary ductal dilatation. Venous Duplex 12/07/21 15:56 IMPRESSION: Left upper extremity DVT. Superficial thrombophlebitis is also present as described above Assessment and Plan Patient Active problem list reviewed?: Yes (1) Acute deep vein thrombosis of upper extremity Status: Acute Assessment and plan: My Concern is DVT. DATA Base: CBC: WBC 10.8, HGB 9.1, HCT 30.4, PLT 507. PLAN: Proceed with ultrasound of his left upper extremity. Proceed with CT of the abdomen to look for a source of fever there. Meanwhile broaden the coverage to add antifungal coverage, in view of his immunosuppressed status. Would start anticoagulation with Lovenox if proven to have DVT. Thank you, Addendum: U/S revealed LUE DVT, and superficial thrombophlebitis. Abdominal CAT Scan: Improved lung infiltrates and effusions. Otherwise non revealing for any obvious source of fever. Fever is related to the DVT. Will give Lovenox 1 milligram/kilogram b.i.d. for the DVT. Antibiotics for phlebitis. Date of service: 12/07/2021. - Time Spent With Patient Time Spent with Patient (in minutes): 30
== END 2021-12-08 15:00 | disposition home health service (06) | DRG 194 ==
LOC: HO.ED 17:18 → HO.EDOVER 21:23 → HO.IMC 12-02 00:07
PROVIDERS: Emergency Medicine Emergency Medical Services; Internal Medicine; Admitting Provider Hospitalist; Emergency Provider Emergency Medicine; PCP Internal Medicine; Visit Provider Hospitalist
DX: I11.0 Hypertensive heart disease with heart failure (principal); J18.9 Pneumonia, unspecified organism; K25.4 Chronic or unspecified gastric ulcer with hemorrhage; Z95.2 Presence of prosthetic heart valve; D62 Acute posthemorrhagic anemia; Q85.8 Other phakomatoses, not elsewhere classified; K63.5 Polyp of colon; K64.8 Other hemorrhoids; I50.33 Acute on chronic diastolic (congestive) heart failure; I80.8 Phlebitis and thrombophlebitis of other sites; R07.89 Other chest pain; I82.622 Acute embolism and thrombosis of deep veins of left upper extremity; E03.9 Hypothyroidism, unspecified; Z85.71 Personal history of Hodgkin lymphoma; Z95.810 Presence of automatic (implantable) cardiac defibrillator; Z79.890 Hormone replacement therapy; Z79.899 Other long term (current) drug therapy
CPT/HCPCS: 36415; 36430; 71046; 71275; 74177; 80048; 80053; 80202; 81003; 82272; 82550; 83605; 83615; 83880; 84145; 84484; 85014; 85018; 85025; 85027; 85379; 85610; 85730; 86078; 86850; 86900; 86901; 86923; 87040; 87449; 87502; 87633; 87635; 93005; 93971; 96374; 96375; 97162; 99284; 99285; J0456; J1650; J1940; J2270; J2405; J2543; J3370; P9016; P9040; Q0163; Q9967

== ENCOUNTER → 2021-12-14 13:22 | Outpatient (BNVA) | payer OTHER, SELFPAY | PROVIDERS: PCP Internal Medicine; Visit Provider Internal Medicine | DX: Z13.89 Encounter for screening for other disorder (principal) ==

== ENCOUNTER → 2021-12-14 14:32 | Outpatient (REF) | payer OTHER, SELFPAY ==
--- NOTE | 2021-12-14 14:25 | CA_ITS ---
Transthoracic Echocardiogram Patient (Last, First, Middle): Enrique Monahan, Gender: Male Date of : 1960 Age: 61 Procedure Date: 12/14/2021 Procedure Type: Transthoracic Echocardiogram Location: OP Height: 175.26 cm Weight: 69.85 kg BSA: 1.85 m2 Heart Rate: 87 bpm BP: 104 / 64 mmHg Warehouse Team Member: SB Referring MD: Hamilton Wyman MD Symptoms: I42.8 - Other cardiomyopathies Study Quality: Adequate ECG Rhythm: Sinus Conclusions: - The left ventricular systolic function is moderately decreased. The visually estimated ejection fraction is between 30-35%. - There is moderately decreased right ventricular systolic function. - A bioprosthetic aortic valve is present. The prosthetic aortic valve appears to be functioning normally. - There is mild mitral valve regurgitation. - Mild pulmonary hypertension is present. - The inferior vena cava is mildly dilated and collapses less than 50% with inspiration. Findings Procedure Information Contrast agent, definity, is being given per protocol without apparent complications. Left Ventricle Mildly increased left ventricular cavity size. There is normal left ventricular wall thickness. The left ventricular systolic function is moderately decreased. The visually estimated ejection fraction is between 30 35%. There is moderate global hypokinesis. There is paradoxical septal motion consistent with a right ventricular pacemaker. Right Ventricle Normal right ventricular cavity size. There is moderately decreased right ventricular systolic function. There is a pacemaker wire seen in the right ventricle. TAPSE 1.3cm. Atria Both atria are normal in size. Aortic Valve A bioprosthetic aortic valve is present. The prosthetic aortic valve appears to be functioning normally. The mean gradient is 5 mmHg. There is no aortic valve regurgitation. Trace to mild valvular regurgitation. Mitral Valve There is mild mitral annular calcification. There is mild mitral valve regurgitation. There is no mitral valve stenosis. Pulmonic Valve The pulmonic valve is likely normal. Tricuspid Valve There is mild tricuspid valve regurgitation. Mild pulmonary hypertension is present. Great Vessels The asc aorta is normal in size. Venous The inferior vena cava is mildly dilated and collapses less than 50% with inspiration. Pericardium/Pleural There is no evidence of pericardial effusion. Prior Study Comparison Changes noted compared to prior study dated: 12/18/2020. Decrease in LVEF. Measurements 2D Linear Measurements IVSd: 0.55 0.6-0.9/0.6-1.0 cm LVIDd: 6.07 3.9-5.3/4.2-5.9 cm LVIDs: 4.21 2.0-3.6 cm LVPWd: 0.62 0.7-1.1 cm LA Diam: 3.60 2.7-3.8/3.0-4.0 cm LVOT Diam: 2.50 3.0+(-)1.3 cm 2D Volumes RA ESV A/L: 17.80 19-21 ML/M2 2D Systolic Function EF 4C: 38.80 >55% EF 2C: 49.60 >55% EF BiP: 43.00 >55% Mitral Valve MV Pk E: 0.82 MV PK A: 0.97 MV Decel Time: 180.00 E/A: 0.80 E/E' Med: 11.30 PHT: 53.00 MVA PHT: 4.15 Aortic Valve AoV Pk Sixto: 1.48 AoV Mn Sixto: 1.06 AoV VTI: 0.25 AoV Pk Grad: 9.00 Aov Mn Grad: 5.00 DANUTA Cont.VTI: 1.88 DANUTA Method: Continuity Equation LVOT LVOT Pk Sixto: 0.67 LVOT Mn Sixto: 0.48 LVOT VTI: 0.99 LVOT Pk Grad: 2.00 LVOT Mn Grad: 1.00 LVOT Diam: 2.50 Diastolic Function MV Pk E: 0.82 MV Pk A: 0.97 E/A: 0.80 E/E' Med: 11.30 IVC Diam Exp: 2.16 Right Ventricle TAPSE (mm): 13.10 TVS' Sixto: 7.80 Tricuspid Valve TR Pk Sixto: 2.49 TR Pk Grad: 25.00 RA Press: 15.00 RVSP: 40.00 IVC Diam Exp: 2.16 Great Vessels Aorta Sinus of Valsalva: 3.14 2.0-3.[address] Ridge: 3.12 1.7-3.4 cm Ao Asc: 3.20 2.1-3.4 cm Pulmonary Valve PV Pk Sixto: 0.90 Peak PV Grad: 3.00 Updated in Other Vendor System with Status of Final Hamilton Wyman MD electronically signed on 12/15/2021 12:12:07 PM with status of Final
== END ==
LOC: HO.CARD 14:32
PROVIDERS: PCP Internal Medicine; Visit Provider Internal Medicine
DX: I42.8 Other cardiomyopathies (principal); I50.32 Chronic diastolic (congestive) heart failure; Z95.2 Presence of prosthetic heart valve
CPT/HCPCS: 93306; Q9957

== ENCOUNTER 2022-01-19 10:36 | Outpatient (REF) | payer SELFPAY ==
--- NOTE | 2022-01-19 12:41 | MHC.AU.HFU ---
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 He reports he originally received the hearing aids through [facility]. Patient reports that he has very narrow ear canals, and as a result goes to Dr. Lawrence every 3-4 months for cerumen removal. History of multiple surgeries on his left ear. 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 They have considered trying a prosthesis to replace the ossicular chain, but decided not to as the benefits did not outweigh the risks. Patient reports that he typically has to get his tubing replaced every 3-4 months, because by point the tubing will have hardened and is usually filled with cerumen. Hearing aids were inspected. Molds were cleaned and re-tubed. Debris was cleaned out of the battery compartments. Microphones were vacuumed. Hearing aids are both amplifying clearly. Recommendations: Hearing instrument follow-up or maintenance as needed. Paid transfer of care fee. Signature: Provider: Katherine Clifton, [facility]
== END 2022-01-19 10:37 | disposition home or self-care (01) ==
LOC: HO.HAP 10:36
PROVIDERS: Visit Provider Internal Medicine
DX: Z46.1 Encounter for fitting and adjustment of hearing aid (principal); H90.6 Mixed conductive and sensorineural hearing loss, bilateral
CPT/HCPCS: V5011

== ENCOUNTER 2022-01-31 10:41 | Outpatient (REF) | payer OTHER, SELFPAY ==
[2022-01-31 11:02] LABS: MANUAL DIFF FLAG NO
[2022-01-31 11:55] LABS: Basophils Absolute Auto 0.1 X10*3/uL (0.0-0.2); Basophils Percent Auto 0.7 % (0-2); Eosinophils Absolute Auto 0.1 X10*3/uL (0.0-0.4); Eosinophils Percent Auto 0.9 % (0-4); Hemoglobin 10.1 g/dl (14.0-18.0); Imm Gran Abs Auto 0.04 X10*3/uL (0.00-0.03); Imm Gran Pct Auto 0.5 % (0.0-0.4); Lymphocytes Absolute Auto 1.6 X10*3/uL (1.2-4.9); Lymphocytes Percent Auto 21.3 % (20-40); Mean Corpuscular HGB Conc 30.6 g/dl (31.0-36.0); Mean Corpuscular Hemoglobin 25.8 pg (27.0-33.0); Mean Corpuscular Volume 84.4 fL (80.0-98.0); Mean Platelet Volume 10.1 fL (9.4-12.4); Monocytes Percent Auto 13.9 % (2-11); Neutrophils Absolute Auto 4.7 x10*3/uL (2.0-8.3); Neutrophils Percent Auto 62.7 % (45-73); Platelet Count 398 X10*3/uL (160-400); Red Blood Count 3.91 X10*6/uL (4.60-5.80); Red Cell Distribution Width 17.7 % (11.0-16.0); White Blood Count 7.4 X10*3/uL (4.8-10.8)
[2022-01-31 12:02] LABS: D Dimer High Sensitivity 848 NG/ML
[2022-01-31 12:29] LABS: Alanine Aminotransferase 8 U/L (0-40); Albumin Level 3.9 g/dL (3.5-5.0); Alkaline Phosphatase 66 U/L (39-117); Anion Gap 12 (12-20); Aspartate Amino Transferase 19 U/L (5-37); Bilirubin Total 0.4 mg/dL (0.0-1.0); Blood Urea Nitrogen 11 mg/dL (9-16); Calcium 8.9 mg/dL (8.4-10.2); Carbon Dioxide 29 mmol/L (22-29); Chloride 99 mmol/L (96-108); Estimated Glomerular Filt Rate > 60; Glucose Random 96 mg/dL (60-115); Lactate Dehydrogenase 294 U/L (118-273); Potassium 4.2 mmol/L (3.3-5.1); Sodium 136 mmol/L (135-145); Total Protein 6.5 g/dL (6.5-8.0)
[2022-01-31 12:46] LABS: Free T4 (Free Thyroxine) 1.32 ng/dL (0.71-1.85); Vitamin D 25-OH Total 19.4 ng/mL (>30)
[2022-01-31 12:52] LABS: Thyroid Stimulating Hormone 0.29 uIU/mL (0.32-4.0)
[2022-02-01 10:46] LABS: Calcium (PTHI) 8.9 mg/dL (8.6-10.3); PTHI 57 pg/mL (16-77)
[2022-02-01 22:06] LABS: Prot Elec - Albumin 3.6 g/dL (3.8-4.8); Prot Elec - Alpha1 0.5 g/dL (0.2-0.3); Prot Elec - Alpha2 0.8 g/dL (0.5-0.9); Prot Elec - Beta 1 0.4 g/dL (0.4-0.6); Prot Elec - Beta 2 0.3 g/dL (0.2-0.5); Prot Elec - Gamma 0.9 g/dL (0.8-1.7); Prot Elec - Total Protein 6.5 g/dL (6.1-8.1)
[2022-02-04 14:25] LABS: Alkaline Phosphatase Bone 8.4 mcg/L (7.6-14.9)
== END 2022-01-31 10:42 | disposition home or self-care (01) ==
LOC: HO.LAB 10:41
PROVIDERS: Absent Provider Internal Medicine; PCP Internal Medicine; Visit Provider Internal Medicine Medical Oncology
DX: I82.629 Acute embolism and thrombosis of deep veins of unspecified upper extremity (principal); E04.2 Nontoxic multinodular goiter; M81.0 Age-related osteoporosis without current pathological fracture; E55.9 Vitamin D deficiency, unspecified
CPT/HCPCS: 36415; 80053; 82306; 83615; 83970; 84075; 84100; 84165; 84439; 84443; 85025; 85379

== ENCOUNTER 2022-03-03 16:06 | Outpatient (REF) | payer OTHER, SELFPAY ==
[2022-03-03 16:55] LABS: MANUAL DIFF FLAG NO
[2022-03-03 17:31] LABS: Basophils Absolute Auto 0.1 X10*3/uL (0.0-0.2); Basophils Percent Auto 0.8 % (0-2); Eosinophils Absolute Auto 0.1 X10*3/uL (0.0-0.4); Eosinophils Percent Auto 1.2 % (0-4); Hematocrit 37.8 % (42.0-52.0); Hemoglobin 11.9 g/dl (14.0-18.0); Imm Gran Abs Auto 0.08 X10*3/uL (0.00-0.03); Imm Gran Pct Auto 0.9 % (0.0-0.4); Lymphocytes Absolute Auto 1.7 X10*3/uL (1.2-4.9); Lymphocytes Percent Auto 19.3 % (20-40); Mean Corpuscular HGB Conc 31.5 g/dl (31.0-36.0); Mean Corpuscular Hemoglobin 26.4 pg (27.0-33.0); Mean Platelet Volume 10.3 fL (9.4-12.4); Monocytes Absolute Auto 1.2 X10*3/uL (0.1-1.2); Monocytes Percent Auto 13.2 % (2-11); Neutrophils Absolute Auto 5.7 x10*3/uL (2.0-8.3); Neutrophils Percent Auto 64.6 % (45-73); Platelet Count 420 X10*3/uL (160-400); Red Cell Distribution Width 18.6 % (11.0-16.0); White Blood Count 8.8 X10*3/uL (4.8-10.8)
[2022-03-03 17:45] LABS: Alanine Aminotransferase 9 U/L (0-40); Albumin Level 4.1 g/dL (3.5-5.0); Alkaline Phosphatase 70 U/L (39-117); Anion Gap 18 (12-20); Aspartate Amino Transferase 23 U/L (5-37); Bilirubin Total 0.7 mg/dL (0.0-1.0); Blood Urea Nitrogen 15 mg/dL (9-16); Calcium 9.1 mg/dL (8.4-10.2); Carbon Dioxide 28 mmol/L (22-29); Chloride 96 mmol/L (96-108); Estimated Glomerular Filt Rate > 60; Glucose Random 126 mg/dL (60-115); Lactate Dehydrogenase 319 U/L (118-273); Potassium 4.3 mmol/L (3.3-5.1); Sodium 138 mmol/L (135-145); Total Protein 7.1 g/dL (6.5-8.0)
== END 2022-03-03 16:07 | disposition home or self-care (01) ==
LOC: HO.LAB 16:06
PROVIDERS: PCP Internal Medicine; Visit Provider Internal Medicine Medical Oncology
DX: I82.629 Acute embolism and thrombosis of deep veins of unspecified upper extremity (principal)
CPT/HCPCS: 36415; 80053; 83615; 85025

== ENCOUNTER 2022-03-06 01:12 | Emergency (ER) | payer OTHER, SELFPAY ==
--- NOTE | ~2022-03-06 | CT_ITS ---
EXAMINATION: CT CHEST WITHOUT CONTRAST CLINICAL INFORMATION: Dyspnea COMPARISON: Multiple priors, including chest x-ray from earlier today TECHNIQUE: Multidetector volumetric CT imaging of the chest was done. Axial MIP volume rendering provided. Sagittal and coronal reformatted images were obtained. This CT examination was performed using dose optimization techniques as appropriate, variously including the following: *Automated exposure control *Adjustment of mA and/or kV according to patient size (this includes techniques or standardized protocols for targeted exams where dose is matched to indication/reason for exam; i.e. extremities or head) *Use of iterative reconstruction technique DLP: 205 mGy-cm FINDINGS: LUNGS: There are heterogeneous regions of perimediastinal opacity in the mid to upper lungs. Curvilinear opacity in the posterior right lower lobe favors atelectasis. MEDIASTINUM: Thyroid gland appears diminutive. No discrete mediastinal lymphadenopathy is seen, though assessment is suboptimal without intravenous contrast. Cardiac size is within normal limits. Pericardial calcification noted. No significant pericardial effusion. Status post TAVR. Calcification is present at the aortic arch. PLEURA: No pneumothorax. Small pleural effusions, left greater than right. Associated right-sided pleural thickening noted. AXILLA: No lymphadenopathy. UPPER ABDOMEN: Status post splenectomy. Peripancreatic stranding noted. OSSEOUS STRUCTURES: Healed right rib fractures noted. Mild degenerative changes are present in the spine. CT/CT chest wo con IMPRESSION: 1. Regions of heterogeneous opacity in the paramediastinal mid to upper lungs. Correlation with patient history is recommended, as this appearance can be seen as sequelae of prior mediastinal radiation therapy. Post inflammatory/infectious scarring is also a possibility. No additional significant consolidation identified. 2. Small pleural effusions, left greater than right. Redemonstrated pleural thickening at the right base with adjacent atelectasis. 3. Pericardial calcification, without significant pericardial effusion.
--- NOTE | ~2022-03-06 | XR_ITS ---
EXAMINATION: XR CHEST CLINICAL INFORMATION: Dyspnea COMPARISON: 12/05/2021 TECHNIQUE: Frontal view of the chest was obtained. FINDINGS: Redemonstrated left-sided pacemaker/AICD and TAVR prosthesis. Lung volumes are symmetric. There is mild perihilar interstitial prominence. Subtle patchy right basilar opacity is difficult to exclude. No additional dense consolidation. No evidence of pneumothorax. Chronic small right pleural effusion. Cardiac size is within normal limits. Calcification is present at the aortic arch. No acute osseous findings are seen. XR/XR chest 1V IMPRESSION: Mild perihilar interstitial prominence which could reflect a degree of vascular congestion. Subtle patchy right basilar opacity is difficult to exclude. Chronic small right pleural effusion.
--- NOTE | 2022-03-06 01:29 | ECG_ITS ---
Test Reason : SOB Blood Pressure : / mmHG Vent. Rate : 085 BPM Atrial Rate : 085 BPM P-R Int : 132 ms QRS Dur : 168 ms QT Int : 452 ms P-R-T Axes : 038 242 061 degrees QTc Int : 537 ms Atrial-sensed ventricular-paced rhythm Abnormal ECG When compared with ECG of 01-DEC-2021 23:17, Vent. rate has decreased BY 23 BPM Referred By: Suzie Joaquin Electronically Signed By:SUZIE THOMAS
--- NOTE | 2022-03-06 01:30 | ED.SOB ---
HPI - SOB/Dyspnea General Chief Complaint: General Medical Stated Complaint: trouble breathing Time Seen by Provider: 03/06/22 01:14 Source: patient and old records reviewed Mode of arrival: ambulatory Limitations: no limitations History of Present Illness HPI Narrative: 61 yo male with hx of ITP (resolved off treatments), CHF, pneumonia, TAVR, osteoporosis, PE on eliquis, weakness, pleural effusions reports that he has felt CAM[place] and weak x 2 days and notes that over the past two days he feels that his lungs are filling with fluid and that he can't lay flat. He thinks he needs another drainage. He reports compliance with all medications MD elicited complaint: shortness of breath Pertinent past history: congestive heart failure and pneumonia Onset (ago): day(s) (2) Timing: constant Severity: moderate Exacerbating factors: lying flat and exertion Relieving factors: rest and upright position Known history of: congestive heart failure and recurrent pneumonia Associated symptoms: orthopnea Treatment prior to arrival: other (lasix increased) Related Data Home Medications Medication Instructions Recorded Confirmed eplerenone 25 mg tablet (Inspra) 25 mg PO DAILY 11/05/21 01/31/22 furosemide 20 mg tablet (Lasix) 60 mg PO BID 12/01/21 01/31/22 alprazolam 0.25 mg tablet (Xanax) 0.25 mg PO BEDTIME PRN sleep 12/30/21 01/31/22 Previous Rx's Medication Instructions Recorded omeprazole 40 mg capsule,delayed 40 mg PO BID@0630,1630 #60 caps 11/26/21 release ferrous sulfate 325 mg (65 mg 325 mg PO BID 90 days #90 tabs 12/08/21 iron) tablet enoxaparin 60 mg/0.6 mL 60 mg (0.6 mL) subcut Q12H 30 days 12/10/21 subcutaneous syringe #36 mL ivabradine 5 mg tablet (Corlanor) 5 mg PO BIDWM #180 tabs 12/14/21 apixaban 5 mg tablet (Eliquis) 5 mg PO BID #60 tabs 12/30/21 levothyroxine 150 mcg tablet 150 mcg PO DAILY 30 days #30 tabs 02/02/22 doxycycline hyclate 100 mg capsule 100 mg PO BID 7 days #14 caps 03/06/22 Allergies Allergy/AdvReac Type Severity Reaction Status Date / Time No Known Allergies Allergy Verified 01/31/22 14:52 [No Known Allergies*] Review of Systems Review of Systems: Constitutional : No Fever, No Chills ENT/Mouth : No sore throat, No Rhinorrhea, No Swallowing Difficulty Eyes: No Eye Pain, No Swelling, No Redness Cardiovascular : No Chest Pain, positive SOB, No Orthopnea, positive Edema Respiratory : pos Cough, No Sputum, No Wheezing, positive dyspnea Gastrointestinal : No Nausea, No Vomiting, No Diarrhea, No abdominal Pain, No Hematochezia, No Melena Genitourinary : No Dysuria, No Urinary Frequency, No Hematuria Musculoskeletal : No joint pain, No Myalgias Skin : No Skin Lesions, No rash Neuro : No Weakness, No Numbness, No Dizziness, No Headache Psych : No Anxiety/Panic, No Depression Heme/Lymph: No Bruising, No Lymphadenopathy Endocrine : No Polyuria, No Polydipsia All other systems reviewed and are negative PMFSH Past Medical History Attestation statement: The following information was validated with the patient. 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 Fever Fever of unknown origin HFrEF (heart failure with reduced ejection fraction) Hodgkins lymphoma Hypocalcemia Hypotension (arterial) Hypothyroidism LBBB (left bundle branch block) Leukocytosis Low TSH level Lung infiltrate Multifocal pneumonia Multinodular thyroid Multinodular thyroid NICM (nonischemic cardiomyopathy) Osteoporosis Pacemaker Pulmonary embolism Recurrent pleural effusion on right Respiratory failure with hypoxia Rib fracture Rib pain Right hip pain Shortness of breath Sinus tachycardia Thrombocytopenia Vitamin D deficiency Surgical History H/O splenectomy History of appendectomy History of cardiac pacemaker History of endoscopy History of esophagogastroduodenoscopy (EGD) History of hip surgery Hx of colonoscopy S/P TAVR (transcatheter aortic valve replacement) Family History Family History Father Healthy adult male Mother Bladder cancer Social History Social History Household Members: Spouse and Children Housing: House Are you a primary primary care coordinator to a significant other at home: No Do you presently have visiting nurse or other home services: No Alcohol intake: current Alcohol intake frequency: holidays/special occasions only Patient Tobacco Use Status: Never used Tobacco e-Cigarette/Vaping Use: Never Used Second Hand Smoke Exposure: No Advance Directives: Yes Advance Directives on File: Yes Advance Directives Date on File: 01/07/21 service: Yes Current occupational status: employed Current occupational exposures/hazards: No Physical Exam Vital Signs: Vital Signs: Last Vital Signs Temp 97.3 F 03/06/22 04:42 Pulse 71 03/06/22 04:42 Resp 18 03/06/22 04:42 BP 118/68 03/06/22 04:42 Pulse Ox 96 03/06/22 04:42 O2 Del Method 03/06/22 04:42 BMI result Body Mass Index 20.5 Appearance: Alert. Oriented X3. No acute distress. Frail weak appearing Eyes: Pupils equal, round and reactive to light. ENT: Pharynx normal. Neck: Normal inspection. Neck supple. CVS: Normal heart rate and rhythm click noted Pulses normal. Respiratory: No respiratory distress. Breath sounds rales at the bases - coarse junky cough Abdomen: Soft and nontender. Skin: Skin warm and dry. pale skin color. Normal skin turgor. Extremities: 1 + pitting lower extremity edema. No calf ttp Neuro: Oriented X 3. No motor deficit. No sensory deficit. Course Course Course Narrative: patient with coarse junky cough - states he is too weak to go home will treat as bronchitis discussed with hospitalist review of labs CT scan VS and no hypoxia trial home antibiotics, increase lasix stable for DC does not need inpatient care at this time 402am lipase 15 no abdominal pain doubt pancreatitis MDM - SOB/Dyspnea MDM Narrative Medical decision making narrative: 61 yo male with hx of ITP (resolved off treatments), CHF, pneumonia, TAVR, osteoporosis, PE on eliquis here with c/o [place] and orthopnea at this time will need labs, cultures, CXR for effusions/pneumonia/edema. Likely admit. Dispo per results and findings. Lab Data Result diagrams: 03/06/22 01:48 03/06/22 02:26 Labs: Lab Results 0803/06/22 03/06/22 Range/Units 01:47 01:47 01:47 WBC (4.8-10.8) X10*3/uL RBC (4.60-5.80) X10*6/uL Hgb (14.0-18.0) g/dl Hct (42.0-52.0) % MCV (80.0-98.0) fL MCH (27.0-33.0) pg MCHC (31.0-36.0) g/dl RDW (11.0-16.0) % Plt Count (160-400) X10*3/uL MPV (9.4-12.4) fL Immature Gran % (Auto) (0.0-0.4) % Neut % (Auto) (45-73) % Lymph % (Auto) (20-40) % [place] % (Auto) (2-11) % Eos % (Auto) (0-4) % Baso % (Auto) (0-2) % Lymph # (Auto) (1.2-4.9) X10*3/uL [place] # (Auto) (0.1-1.2) X10*3/uL Eos # (Auto) (0.0-0.4) X10*3/uL Baso # (Auto) (0.0-0.2) X10*3/uL Abs Immat Gran (auto) (0.00-0.03) X10*3/uL Absolute Neuts (auto) (2.0-8.3) x10*3/uL Absolute Nucleated RBC (0.0-0.012) X10*3/uL Nucleated RBC % (auto) (0.0-0.2) /100WBC PT 18.9 H (10.0-13.1) SEC INR 1.6 H (0.9-1.1) Sodium (135-145) mmol/L Potassium (3.3-5.1) mmol/L Chloride (96-108) mmol/L Carbon Dioxide (22-29) mmol/L Anion Gap (12-20) BUN (9-16) mg/dL Creatinine (0.5-1.4) mg/dL Estim Creat Clear Calc Estimated GFR Random Glucose (60-115) mg/dL Lactic Acid (0.5-2.0) mmol/L Calcium (8.4-10.2) mg/dL Magnesium (1.6-2.6) mg/dL Total Bilirubin (0.0-1.0) mg/dL Direct Bilirubin (0.0-0.5) mg/dL AST (5-37) U/L ALT (0-40) U/L Alkaline Phosphatase (39-117) U/L Troponin I High Sens (<3.5-35.0) ng/L B-Natriuretic Peptide Cancelled Total Protein (6.5-8.0) g/dL Albumin (3.5-5.0) g/dL Lipase (8-78) U/L Procalcitonin ng/mL COVID-19 ([facility]ANICE) Negative (Negative) COVID-19 Clin Com See Note 03/06/22 03/06/22 03/06/22 Range/Units 01:47 01:47 01:48 WBC 9.0 (4.8-10.8) X10*3/uL RBC 4.33 L (4.60-5.80) X10*6/uL Hgb 11.0 L (14.0-18.0) g/dl Hct 35.3 L (42.0-52.0) % MCV 81.5 (80.0-98.0) fL MCH 25.4 L (27.0-33.0) pg MCHC 31.2 (31.0-36.0) g/dl RDW 18.3 H (11.0-16.0) % Plt Count 371 (160-400) X10*3/uL MPV 9.2 L (9.4-12.4) fL Immature Gran % (Auto) 0.9 H (0.0-0.4) % Neut % (Auto) 59.8 (45-73) % Lymph % (Auto) 23.0 (20-40) % [place] % (Auto) 13.1 H (2-11) % Eos % (Auto) 2.3 (0-4) % Baso % (Auto) 0.9 (0-2) % Lymph # (Auto) 2.1 (1.2-4.9) X10*3/uL [place] # (Auto) 1.2 (0.1-1.2) X10*3/uL Eos # (Auto) 0.2 (0.0-0.4) X10*3/uL Baso # (Auto) 0.1 (0.0-0.2) X10*3/uL Abs Immat Gran (auto) 0.08 H (0.00-0.03) X10*3/uL Absolute Neuts (auto) 5.4 (2.0-8.3) x10*3/uL Absolute Nucleated RBC 0.000 (0.0-0.012) X10*3/uL Nucleated RBC % (auto) 0.0 (0.0-0.2) /100WBC PT (10.0-13.1) SEC INR (0.9-1.1) Sodium (135-145) mmol/L Potassium (3.3-5.1) mmol/L Chloride (96-108) mmol/L Carbon Dioxide (22-29) mmol/L Anion Gap (12-20) BUN (9-16) mg/dL Creatinine (0.5-1.4) mg/dL Estim Creat Clear Calc Estimated GFR Random Glucose (60-115) mg/dL Lactic Acid 1.2 (0.5-2.0) mmol/L Calcium (8.4-10.2) mg/dL Magnesium (1.6-2.6) mg/dL Total Bilirubin (0.0-1.0) mg/dL Direct Bilirubin (0.0-0.5) mg/dL AST (5-37) U/L ALT (0-40) U/L Alkaline Phosphatase (39-117) U/L Troponin I High Sens 11.0 (<3.5-35.0) ng/L B-Natriuretic Peptide 68 Total Protein (6.5-8.0) g/dL Albumin (3.5-5.0) g/dL Lipase (8-78) U/L Procalcitonin ng/mL COVID-19 ([facility]ANICE) (Negative) COVID-19 Clin Com 03/06/22 03/06/22 Range/Units 02:26 02:26 WBC (4.8-10.8) X10*3/uL RBC (4.60-5.80) X10*6/uL Hgb (14.0-18.0) g/dl Hct (42.0-52.0) % MCV (80.0-98.0) fL MCH (27.0-33.0) pg MCHC (31.0-36.0) g/dl RDW (11.0-16.0) % Plt Count (160-400) X10*3/uL MPV (9.4-12.4) fL Immature Gran % (Auto) (0.0-0.4) % Neut % (Auto) (45-73) % Lymph % (Auto) (20-40) % [place] % (Auto) (2-11) % Eos % (Auto) (0-4) % Baso % (Auto) (0-2) % Lymph # (Auto) (1.2-4.9) X10*3/uL [place] # (Auto) (0.1-1.2) X10*3/uL Eos # (Auto) (0.0-0.4) X10*3/uL Baso # (Auto) (0.0-0.2) X10*3/uL Abs Immat Gran (auto) (0.00-0.03) X10*3/uL Absolute Neuts (auto) (2.0-8.3) x10*3/uL Absolute Nucleated RBC (0.0-0.012) X10*3/uL Nucleated RBC % (auto) (0.0-0.2) /100WBC PT (10.0-13.1) SEC INR (0.9-1.1) Sodium 138 (135-145) mmol/L Potassium 3.5 (3.3-5.1) mmol/L Chloride 97 (96-108) mmol/L Carbon Dioxide 32 H (22-29) mmol/L Anion Gap 13 (12-20) BUN 14 (9-16) mg/dL Creatinine 0.77 (0.5-1.4) mg/dL Estim Creat Clear Calc 97.3 Estimated GFR > 60 Random Glucose 98 (60-115) mg/dL Lactic Acid (0.5-2.0) mmol/L Calcium 8.2 L D (8.4-10.2) mg/dL Magnesium 1.8 (1.6-2.6) mg/dL Total Bilirubin 0.2 (0.0-1.0) mg/dL Direct Bilirubin 0.2 (0.0-0.5) mg/dL AST 17 (5-37) U/L ALT 8 (0-40) U/L Alkaline Phosphatase 58 (39-117) U/L Troponin I High Sens (<3.5-35.0) ng/L B-Natriuretic Peptide Total Protein 6.1 L (6.5-8.0) g/dL Albumin 3.6 (3.5-5.0) g/dL Lipase 15 (8-78) U/L Procalcitonin 0.03 ng/mL COVID-19 ([facility]ICE) (Negative) COVID-19 Clin Com ECG Data Attestation: I personally reviewed and interpreted this ECG as follows: ECG interpretation date: 03/06/22 ECG interpretation time: 01:42 Interpretation: Rate: 85 Rhythm: atrial sensed pacer [place]: left wide QRS ST T wave : no STEWART qTC: normal prior studies: no acute ischemia The study has been interpreted contemporaneously by me. Discharge Plan Discharge Clinical Impression: Bronchitis, Acute dyspnea Patient Disposition: Home, Self-Care Instructions: Acute Bronchitis (ED), Dyspnea (ED) Additional Instructions: return to ED for any worsening symptoms or concerns Prescriptions: New doxycycline hyclate 100 mg capsule 100 mg PO BID 7 Days Qty: 14 0RF No Action levothyroxine 150 mcg tablet 150 mcg PO DAILY 30 Days Qty: 30 3RF eplerenone [Inspra] 25 mg tablet 25 mg PO DAILY enoxaparin 60 mg/0.6 mL Syringe 60 mg subcut Q12H 30 Days Qty: 36 0RF Eliquis 5 mg Tablet 5 mg PO BID Qty: 60 3RF alprazolam [Xanax] 0.25 mg tablet 0.25 mg PO BEDTIME PRN (Reason: sleep) omeprazole 40 mg Capsule,Delayed Release(Dr/Ec) 40 mg PO BID@0630,1630 Qty: 60 0RF furosemide [Lasix] 20 mg tablet 60 mg PO BID ferrous sulfate 325 mg (65 mg iron) tablet 325 mg PO BID 90 Days Qty: 90 1RF Corlanor 5 mg tablet 5 mg PO BIDWM Qty: 180 3RF Rx Instructions: must administer with a meal/food Referrals: Yesica Burden MD [Primary Care Provider] - 2 days Stand Alone Forms: Work/School Release
[2022-03-06 01:54] VITALS: BP 116/67; PULSE 88; RESP 16; TEMP 36.3; O2SAT 97; BMI 20.5
[2022-03-06 01:55] LABS: MANUAL DIFF FLAG NO
[2022-03-06 01:56] LABS: Basophils Absolute Auto 0.1 X10*3/uL (0.0-0.2); Basophils Percent Auto 0.9 % (0-2); Eosinophils Absolute Auto 0.2 X10*3/uL (0.0-0.4); Eosinophils Percent Auto 2.3 % (0-4); Hematocrit 35.3 % (42.0-52.0); Imm Gran Abs Auto 0.08 X10*3/uL (0.00-0.03); Imm Gran Pct Auto 0.9 % (0.0-0.4); Lymphocytes Absolute Auto 2.1 X10*3/uL (1.2-4.9); Mean Corpuscular HGB Conc 31.2 g/dl (31.0-36.0); Mean Corpuscular Hemoglobin 25.4 pg (27.0-33.0); Mean Corpuscular Volume 81.5 fL (80.0-98.0); Mean Platelet Volume 9.2 fL (9.4-12.4); Monocytes Absolute Auto 1.2 X10*3/uL (0.1-1.2); Monocytes Percent Auto 13.1 % (2-11); Neutrophils Absolute Auto 5.4 x10*3/uL (2.0-8.3); Neutrophils Percent Auto 59.8 % (45-73); Platelet Count 371 X10*3/uL (160-400); Red Blood Count 4.33 X10*6/uL (4.60-5.80); Red Cell Distribution Width 18.3 % (11.0-16.0)
[2022-03-06 02:01] LABS: INTERNATIONAL NORM RATIO 1.6 (0.9-1.1); Prothrombin Time 18.9 SEC (10.0-13.1)
[2022-03-06 02:07] LABS: Lactic Acid 1.2 mmol/L (0.5-2.0)
[2022-03-06 02:18] LABS: B Type Natriuretic Peptide 68 pg/mL (<100)
[2022-03-06 02:22] LABS: COVID-19 Test Negative (Negative); IDNOW Serial# 16C4AD1C
[2022-03-06 02:52] LABS: Alanine Aminotransferase 8 U/L (0-40); Albumin Level 3.6 g/dL (3.5-5.0); Alkaline Phosphatase 58 U/L (39-117); Anion Gap 13 (12-20); Aspartate Amino Transferase 17 U/L (5-37); Bilirubin Direct 0.2 mg/dL (0.0-0.5); Bilirubin Total 0.2 mg/dL (0.0-1.0); Blood Urea Nitrogen 14 mg/dL (9-16); Calcium 8.2 mg/dL (8.4-10.2); Carbon Dioxide 32 mmol/L (22-29); Chloride 97 mmol/L (96-108); Creatinine Clr Calc Pharmacy 97.3; Estimated Glomerular Filt Rate > 60; Glucose Random 98 mg/dL (60-115); Lipase 15 U/L (8-78); Magnesium 1.8 mg/dL (1.6-2.6); Potassium 3.5 mmol/L (3.3-5.1); Sodium 138 mmol/L (135-145); Total Protein 6.1 g/dL (6.5-8.0)
[2022-03-06 04:00] LABS: Procalcitonin 0.03 ng/mL
[2022-03-06] MEDS: cefTRIAXone sodium 1 GM in 0.9 % Sodium Chloride 50 ML IV (04:22)
[2022-03-06 04:42] VITALS: BP 118/68; PULSE 71; RESP 18; TEMP 36.3; O2SAT 96
== END 2022-03-06 05:50 | disposition home or self-care (01) ==
PROVIDERS: Emergency Provider Emergency Medicine; PCP Internal Medicine
DX: J40 Bronchitis, not specified as acute or chronic (principal); R06.00 Dyspnea, unspecified; R06.02 Shortness of breath; M54.6 Pain in thoracic spine; I50.9 Heart failure, unspecified; Z79.899 Other long term (current) drug therapy; Z20.822 Contact with and (suspected) exposure to COVID-19
CPT/HCPCS: 36415; 71045; 71250; 80048; 80076; 83605; 83690; 83735; 83880; 84145; 84484; 85025; 85610; 87040; 87635; 93005; 99284; J0696

== ENCOUNTER 2022-03-11 08:30 | Emergency (ER) | payer OTHER, SELFPAY ==
[2022-03-11 08:35] VITALS: BP 143/80; PULSE 91; RESP 19; TEMP 36.6; O2SAT 100; BMI 20.9
--- NOTE | 2022-03-11 08:41 | ED.NAVMDI ---
HPI - Nausea/Vomiting/Diarrhea General Chief complaint: General Medical Stated complaint: vomiting Time Seen by Provider: 03/11/22 08:37 Source: patient and old records reviewed Mode of arrival: ambulatory (working ) Limitations: no limitations History of Present Illness HPI Narrative: 61 yo male hx of ITP (resolved off treatments), CHF, pneumonia, TAVR, osteoporosis, PE on eliquis, weakness, pleural effusions seen here on 03/06 and dx with bronchitis started on doxycycline has been doing well. He walked into work this AM no issues. 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 Was doing his usual work activities went to the pod with medications and all of a sudden states he felt warm and vomited x 1. After the emesis he notes he felt much better. No other new changes or illnesses. States he has been doing okay. This has never happened to him before. He has no CP/SOB/GIB symptoms. MD elicited complaint: nausea and vomiting Pertinent past history: other (on doxycycline for bronchitis) Onset (ago): minute(s) (just prior to arrival ) Description of vomiting: food contents and watery Associated nausea: Yes Associated abdominal pain: No Location of pain: none Severity: mild Exacerbating factors: none Relieving factors: none Associated symptoms: denies other symptoms Related Data Home Medications Medication Instructions Recorded Confirmed eplerenone 25 mg tablet (Inspra) 25 mg PO DAILY 11/05/21 01/31/22 furosemide 20 mg tablet (Lasix) 60 mg PO BID 12/01/21 01/31/22 alprazolam 0.25 mg tablet (Xanax) 0.25 mg PO BEDTIME PRN sleep 12/30/21 01/31/22 Previous Rx's Medication Instructions Recorded omeprazole 40 mg capsule,delayed 40 mg PO BID@0630,1630 #60 caps 11/26/21 release ferrous sulfate 325 mg (65 mg 325 mg PO BID 90 days #90 tabs 12/08/21 iron) tablet enoxaparin 60 mg/0.6 mL 60 mg (0.6 mL) subcut Q12H 30 days 12/10/21 subcutaneous syringe #36 mL ivabradine 5 mg tablet (Corlanor) 5 mg PO BIDWM #180 tabs 12/14/21 apixaban 5 mg tablet (Eliquis) 5 mg PO BID #60 tabs 12/30/21 levothyroxine 150 mcg tablet 150 mcg PO DAILY 30 days #30 tabs 02/02/22 doxycycline hyclate 100 mg capsule 100 mg PO BID 7 days #14 caps 03/06/22 apixaban 5 mg tablet (Eliquis) 5 mg PO BID 90 days #120 tabs 03/10/22 Allergies Allergy/AdvReac Type Severity Reaction Status Date / Time No Known Allergies Allergy Verified 01/31/22 14:52 [No Known Allergies*] Review of Systems Review of Systems: Constitutional : No Weight loss, No Fever, No Chills ENT/Mouth : No sore throat, No Rhinorrhea Eyes: No Swelling, No Redness Cardiovascular : No Chest Pain, No SOB, NoEdema Respiratory : No Cough, No Sputum, No Wheezing Gastrointestinal : Positive Nausea, Positive Vomiting, no Diarrhea, no abdominal Pain, No Hematochezia, No Melena Genitourinary : No Dysuria, No Urinary Frequency, No Hematuria, No Urgency Musculoskeletal : No joint pain, No Myalgias, No Joint Swelling Skin : No Skin Lesions, No rash Neuro : No Weakness, No Numbness, pos Dizziness, No Headache Psych : No Anxiety/Panic, No Depression Heme/Lymph: No Bruising, No Lymphadenopathy Endocrine : No Polyuria, No Polydipsia All other systems reviewed and are negative. Gastrointestinal: Gastrointestinal: Reports nausea PMFSH Past Medical History Attestation statement: The following information was validated with the patient. Medical History Acute deep vein thrombosis of upper extremity Acute ITP Anemia Anemia Aortic stenosis, severe Bilateral pulmonary embolism Cardiac resynchronization therapy defibrillator ([employer]ODUCTION [employer]-D) in place Complete heart block Congestive heart failure COVID-19 COVID-19 vaccine series completed [place] syndrome 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Fever Fever of unknown origin HFrEF (heart failure with reduced ejection fraction) Hodgkins lymphoma Hypocalcemia Hypotension (arterial) Hypothyroidism LBBB (left bundle branch block) Leukocytosis Low TSH level Lung infiltrate Multifocal pneumonia Multinodular thyroid Multinodular thyroid NICM (nonischemic cardiomyopathy) Osteoporosis Pacemaker Pulmonary embolism Recurrent pleural effusion on right Respiratory failure with hypoxia Rib fracture Rib pain Right hip pain Shortness of breath Sinus tachycardia Thrombocytopenia Vitamin D deficiency Surgical History H/O splenectomy History of appendectomy History of cardiac pacemaker History of endoscopy History of esophagogastroduodenoscopy (EGD) History of hip surgery Hx of colonoscopy S/P TAVR (transcatheter aortic valve replacement) Family History Family History Father Healthy adult male Mother Bladder cancer Social History Social History Household Members: Spouse and Children Housing: House Are you a primary health careers instructor to a significant other at home: No Do you presently have visiting nurse or other home services: No Alcohol intake: current Alcohol intake frequency: holidays/special occasions only Patient Tobacco Use Status: Never used Tobacco e-Cigarette/Vaping Use: Never Used Second Hand Smoke Exposure: No Advance Directives: Yes Advance Directives Information Provided: Yes Advance Directives on File: No Advance Directives Date on File: 01/07/21 service: Yes Current occupational status: employed Current occupational exposures/hazards: No Physical Exam Vital Signs: Vital Signs: Last Vital Signs Temp 98 F 03/11/22 08:35 Pulse 91 03/11/22 08:35 Resp 19 03/11/22 08:35 BP 143/80 H 03/11/22 08:35 Pulse Ox 100 03/11/22 08:35 O2 Del Method 03/11/22 08:35 BMI result Body Mass Index 20.9 Appearance: Alert. Oriented X3. Initially in chair, holding emesis bag orange colored emesis pale sweaty mild acute distress. Eyes: Pupils equal, round and reactive to light. ENT: Pharynx normal. Neck: Normal inspection. Neck supple. CVS: Normal heart rate and rhythm. Pulses normal. Respiratory: No respiratory distress. Breath sounds normal. Abdomen: Soft and nontender. Skin: Skin warm and sweaty pale skin color. Normal skin turgor. Extremities: No lower extremity edema. No calf ttp Neuro: Oriented X 3. No motor deficit. No sensory deficit. Course Course Course Narrative: refusing EKG agrees to blood work patient states she feels fine and wants to go home. steady gait no dizziness stable for DC MDM - Nausea/Vomiting/Diarrhea MDM Narrative Medical decision making narrative: 61 yo male hx of ITP (resolved off treatments), CHF, pneumonia, TAVR, osteoporosis, PE on eliquis, weakness, pleural effusions recent dx of bronchitis doing well here with c/o vomiting and what sounds like near syncope - he recovered well denies CP/SOB and GIB symptoms. At this time he only agrees to blood work and states he feels much better. Will observe and PO challenge in the ED. Lab Data Result diagrams: 03/11/22 08:45 03/11/22 08:45 Labs: Lab Results 03/11/22 03/11/22 03/11/22 Range/Units 08:34 08:45 08:45 WBC 9.3 (4.8-10.8) X10*3/uL RBC 4.51 L (4.60-5.80) X10*6/uL Hgb 11.7 L (14.0-18.0) g/dl Hct 37.2 L (42.0-52.0) % MCV 82.5 (80.0-98.0) fL MCH 25.9 L (27.0-33.0) pg MCHC 31.5 (31.0-36.0) g/dl RDW 18.4 H (11.0-16.0) % Plt Count 377 (160-400) X10*3/uL MPV 9.4 (9.4-12.4) fL Immature Gran % (Auto) 0.9 H (0.0-0.4) % Neut % (Auto) 58.9 (45-73) % Lymph % (Auto) 25.3 (20-40) % Knott % (Auto) 13.3 H (2-11) % Eos % (Auto) 1.0 (0-4) % Baso % (Auto) 0.6 (0-2) % Lymph # (Auto) 2.4 (1.2-4.9) X10*3/uL Knott # (Auto) 1.2 (0.1-1.2) X10*3/uL Eos # (Auto) 0.1 (0.0-0.4) X10*3/uL Baso # (Auto) 0.1 (0.0-0.2) X10*3/uL Abs Immat Gran (auto) 0.08 H (0.00-0.03) X10*3/uL Absolute Neuts (auto) 5.5 (2.0-8.3) x10*3/uL Absolute Nucleated RBC 0.000 (0.0-0.012) X10*3/uL Nucleated RBC % (auto) 0.0 (0.0-0.2) /100WBC APTT 68.8 H* (26.0-36.4) SEC Sodium (135-145) mmol/L Potassium (3.3-5.1) mmol/L Chloride (96-108) mmol/L Carbon Dioxide (22-29) mmol/L Anion Gap (12-20) BUN (9-16) mg/dL Creatinine (0.5-1.4) mg/dL Estim Creat Clear Calc Estimated GFR POC Glucose 88 (60-115) mg/dL Random Glucose (60-115) mg/dL Calcium (8.4-10.2) mg/dL Magnesium (1.6-2.6) mg/dL Total Bilirubin (0.0-1.0) mg/dL Direct Bilirubin (0.0-0.5) mg/dL AST (5-37) U/L ALT (0-40) U/L Alkaline Phosphatase (39-117) U/L Troponin I High Sens (<3.5-35.0) ng/L Total Protein (6.5-8.0) g/dL Albumin (3.5-5.0) g/dL 03/11/22 03/11/22 Range/Units 08:45 08:45 WBC (4.8-10.8) X10*3/uL RBC (4.60-5.80) X10*6/uL Hgb (14.0-18.0) g/dl Hct (42.0-52.0) % MCV (80.0-98.0) fL MCH (27.0-33.0) pg MCHC (31.0-36.0) g/dl RDW (11.0-16.0) % Plt Count (160-400) X10*3/uL MPV (9.4-12.4) fL Immature Gran % (Auto) (0.0-0.4) % Neut % (Auto) (45-73) % Lymph % (Auto) (20-40) % Knott % (Auto) (2-11) % Eos % (Auto) (0-4) % Baso % (Auto) (0-2) % Lymph # (Auto) (1.2-4.9) X10*3/uL Knott # (Auto) (0.1-1.2) X10*3/uL Eos # (Auto) (0.0-0.4) X10*3/uL Baso # (Auto) (0.0-0.2) X10*3/uL Abs Immat Gran (auto) (0.00-0.03) X10*3/uL Absolute Neuts (auto) (2.0-8.3) x10*3/uL Absolute Nucleated RBC (0.0-0.012) X10*3/uL Nucleated RBC % (auto) (0.0-0.2) /100WBC APTT (26.0-36.4) SEC Sodium 139 (135-145) mmol/L Potassium 3.8 (3.3-5.1) mmol/L Chloride 98 (96-108) mmol/L Carbon Dioxide 29 (22-29) mmol/L Anion Gap 16 (12-20) BUN 22 H D (9-16) mg/dL Creatinine 0.88 (0.5-1.4) mg/dL Estim Creat Clear Calc 86.9 Estimated GFR > 60 POC Glucose (60-115) mg/dL Random Glucose 99 (60-115) mg/dL Calcium 9.3 D (8.4-10.2) mg/dL Magnesium 1.9 (1.6-2.6) mg/dL Total Bilirubin 0.6 (0.0-1.0) mg/dL Direct Bilirubin 0.3 (0.0-0.5) mg/dL AST 20 (5-37) U/L ALT 9 (0-40) U/L Alkaline Phosphatase 71 D (39-117) U/L Troponin I High Sens < 3.5 D (<3.5-35.0) ng/L Total Protein 7.1 (6.5-8.0) g/dL Albumin 4.2 (3.5-5.0) g/dL Discharge Plan Discharge Clinical Impression: Vomiting Patient Disposition: Home, Self-Care Instructions: Acute Nausea and Vomiting (ED) Additional Instructions: return to ED for any worsening symptoms or concerns stay hydrated, eat and rest your ptt was elevated at 68 likely from the eliquis follow up with Dr. Castaneda next week Prescriptions: No Action levothyroxine 150 mcg tablet 150 mcg PO DAILY 30 Days Qty: 30 3RF eplerenone [Inspra] 25 mg tablet 25 mg PO DAILY enoxaparin 60 mg/0.6 mL Syringe 60 mg subcut Q12H 30 Days Qty: 36 0RF Eliquis 5 mg Tablet 5 mg PO BID Qty: 60 3RF alprazolam [Xanax] 0.25 mg tablet 0.25 mg PO BEDTIME PRN (Reason: sleep) Eliquis 5 mg Tablet 5 mg PO BID 90 Days Qty: 120 4RF omeprazole 40 mg Capsule,Delayed Release(Dr/Ec) 40 mg PO BID@0630,1630 Qty: 60 0RF furosemide [Lasix] 20 mg tablet 60 mg PO BID ferrous sulfate 325 mg (65 mg iron) tablet 325 mg PO BID 90 Days Qty: 90 1RF doxycycline hyclate 100 mg capsule 100 mg PO BID 7 Days Qty: 14 0RF Corlanor 5 mg tablet 5 mg PO BIDWM Qty: 180 3RF Rx Instructions: must administer with a meal/food Stand Alone Forms: Work/School Release
[2022-03-11 08:49] LABS: MANUAL DIFF FLAG NO
[2022-03-11 08:50] LABS: Basophils Absolute Auto 0.1 X10*3/uL (0.0-0.2); Basophils Percent Auto 0.6 % (0-2); Eosinophils Absolute Auto 0.1 X10*3/uL (0.0-0.4); Hematocrit 37.2 % (42.0-52.0); Hemoglobin 11.7 g/dl (14.0-18.0); Imm Gran Abs Auto 0.08 X10*3/uL (0.00-0.03); Imm Gran Pct Auto 0.9 % (0.0-0.4); Lymphocytes Absolute Auto 2.4 X10*3/uL (1.2-4.9); Lymphocytes Percent Auto 25.3 % (20-40); Mean Corpuscular HGB Conc 31.5 g/dl (31.0-36.0); Mean Corpuscular Hemoglobin 25.9 pg (27.0-33.0); Mean Corpuscular Volume 82.5 fL (80.0-98.0); Mean Platelet Volume 9.4 fL (9.4-12.4); Monocytes Absolute Auto 1.2 X10*3/uL (0.1-1.2); Monocytes Percent Auto 13.3 % (2-11); Neutrophils Absolute Auto 5.5 x10*3/uL (2.0-8.3); Neutrophils Percent Auto 58.9 % (45-73); Platelet Count 377 X10*3/uL (160-400); Red Blood Count 4.51 X10*6/uL (4.60-5.80); Red Cell Distribution Width 18.4 % (11.0-16.0); White Blood Count 9.3 X10*3/uL (4.8-10.8)
[2022-03-11 09:08] LABS: Partial Thromboplastin Time 68.8 SEC (26.0-36.4)
[2022-03-11 09:09] LABS: Troponin-I High Sensitivity < 3.5 ng/L (<3.5-35.0)
[2022-03-11 09:17] LABS: Alanine Aminotransferase 9 U/L (0-40); Albumin Level 4.2 g/dL (3.5-5.0); Alkaline Phosphatase 71 U/L (39-117); Anion Gap 16 (12-20); Aspartate Amino Transferase 20 U/L (5-37); Bilirubin Direct 0.3 mg/dL (0.0-0.5); Bilirubin Total 0.6 mg/dL (0.0-1.0); Blood Urea Nitrogen 22 mg/dL (9-16); Calcium 9.3 mg/dL (8.4-10.2); Carbon Dioxide 29 mmol/L (22-29); Chloride 98 mmol/L (96-108); Creatinine Clr Calc Pharmacy 86.9; Estimated Glomerular Filt Rate > 60; Glucose Random 99 mg/dL (60-115); Magnesium 1.9 mg/dL (1.6-2.6); Potassium 3.8 mmol/L (3.3-5.1); Sodium 139 mmol/L (135-145); Total Protein 7.1 g/dL (6.5-8.0)
[2022-03-11 09:41] LABS: Glucose, Whole Blood 88 mg/dL (60-115)
== END 2022-03-11 11:07 | disposition home or self-care (01) ==
PROVIDERS: Emergency Provider Emergency Medicine; PCP Internal Medicine
DX: R11.10 Vomiting, unspecified (principal); Z79.899 Other long term (current) drug therapy
CPT/HCPCS: 36415; 80048; 80076; 82947; 83735; 84484; 85025; 85730; 99282; 99283

== ENCOUNTER 2022-03-16 14:50 | Outpatient (REF) | payer OTHER, SELFPAY ==
[2022-03-16 15:15] LABS: MANUAL DIFF FLAG NO
[2022-03-16 15:28] LABS: Basophils Absolute Auto 0.1 X10*3/uL (0.0-0.2); Basophils Percent Auto 0.8 % (0-2); Eosinophils Percent Auto 0.4 % (0-4); Hematocrit 34.6 % (42.0-52.0); Hemoglobin 11.1 g/dl (14.0-18.0); Imm Gran Abs Auto 0.07 X10*3/uL (0.00-0.03); Imm Gran Pct Auto 0.9 % (0.0-0.4); Lymphocytes Absolute Auto 1.3 X10*3/uL (1.2-4.9); Lymphocytes Percent Auto 16.9 % (20-40); Mean Corpuscular HGB Conc 32.1 g/dl (31.0-36.0); Mean Corpuscular Hemoglobin 26.4 pg (27.0-33.0); Mean Corpuscular Volume 82.4 fL (80.0-98.0); Mean Platelet Volume 9.9 fL (9.4-12.4); Monocytes Absolute Auto 1.2 X10*3/uL (0.1-1.2); Monocytes Percent Auto 15.4 % (2-11); Neutrophils Absolute Auto 5.2 x10*3/uL (2.0-8.3); Neutrophils Percent Auto 65.6 % (45-73); Platelet Count 354 X10*3/uL (160-400); Red Cell Distribution Width 18.3 % (11.0-16.0); White Blood Count 7.9 X10*3/uL (4.8-10.8)
[2022-03-16 15:52] LABS: Alanine Aminotransferase 9 U/L (0-40); Albumin Level 4.1 g/dL (3.5-5.0); Alkaline Phosphatase 68 U/L (39-117); Anion Gap 15 (12-20); Aspartate Amino Transferase 21 U/L (5-37); Bilirubin Total 0.5 mg/dL (0.0-1.0); Blood Urea Nitrogen 19 mg/dL (9-16); Calcium 9.1 mg/dL (8.4-10.2); Carbon Dioxide 29 mmol/L (22-29); Chloride 99 mmol/L (96-108); Estimated Glomerular Filt Rate > 60; Glucose Random 107 mg/dL (60-115); Lactate Dehydrogenase 316 U/L (118-273); Sodium 139 mmol/L (135-145)
== END 2022-03-16 14:51 | disposition home or self-care (01) ==
LOC: HO.LAB 14:50
PROVIDERS: PCP Internal Medicine; Visit Provider Internal Medicine Medical Oncology
DX: D69.3 Immune thrombocytopenic purpura (principal)
CPT/HCPCS: 36415; 80053; 83615; 85025

== ENCOUNTER 2022-03-21 09:41 | Outpatient (REF) | payer SELFPAY ==
--- NOTE | 2022-03-21 10:28 | MHC.AU.HFU ---
Hearing Instrument Follow-Up- Binaural Date of Visit: 03/21/22 Right Ear: Infectious Disease Technician: [employer] Model: OPN 1 BTE PP Serial Number: [id number] Repair Warranty: 06/21/2021 Loss and Damage Warranty: 06/21/2020 Battery Size: 13 Date of Fitting: Per [employer], shipped on 05/22/2018 Left Ear: Infectious Disease Technician: [employer] Model: OPN 1 BTE PP Serial Number: [id number] Repair Warranty: 06/21/2021 Loss and Damage Warranty: 06/21/2020 Battery Size: 13 Date of Fitting: Per [employer], shipped 05/22/2018 Follow-Up Summary: Patient reports that both hearing aids sound weak. The left tubing was occluded. Cleaned and re-tubed molds. Vacuumed microphones. The left hearing aid is amplifying clearly. The right hearing aid is weak. The startup jingle can be heard softly, then very little amplification is produced. It will be sent to [employer] for repair out of warranty. Discussed $315 cost. Recommendations: Patient will be contacted when materials have arrived. The right mold will be kept in the repair drawer until the repaired hearing aid has returned. Signature:Provider: Katherine Clifton, CCC-A
== END 2022-03-21 09:42 | disposition home or self-care (01) ==
LOC: HO.HAP 09:41
PROVIDERS: Visit Provider Internal Medicine
DX: Z13.89 Encounter for screening for other disorder (principal)

== ENCOUNTER 2022-03-22 07:51 | Outpatient (REF) | payer OTHER, SELFPAY ==
--- NOTE | ~2022-03-22 | US_ITS ---
EXAMINATION: US VENOUS WITH DOPPLER UPPER EXTREMITY, LEFT CLINICAL INFORMATION: Follow-up DVT COMPARISON: Previous exam November 2021 TECHNIQUE: Ultrasound of the upper extremity is performed using compression sonography and color and pulse Doppler flow with assessment of augmentation of flow. There is also imaging and Doppler assessment of the jugular and subclavian veins. Spectral analysis with color-flow imaging is performed. FINDINGS: The left internal jugular, subclavian, axillary, cephalic, basilic and brachial vein are patent. Radial and ulnar veins in the forearm are patent. Previously identified extensive left upper arm DVT has resolved. US/US venous duplex UE LT IMPRESSION: No DVT demonstrated in the left upper extremity.
== END 2022-03-22 07:52 | disposition home or self-care (01) ==
LOC: HO.US 07:51
PROVIDERS: Visit Provider Internal Medicine Medical Oncology
DX: I82.622 Acute embolism and thrombosis of deep veins of left upper extremity (principal)
CPT/HCPCS: 93971

== ENCOUNTER 2022-04-04 13:41 | Outpatient (REF) | payer SELFPAY ==
--- NOTE | 2022-04-04 15:32 | MHC.AU.HFU ---
Hearing Instrument Follow-Up- Binaural Date of Visit: 04/04/22 Right Ear: Sat Act Instructor: [employer] Model: OPN 1 BTE PP Serial Number: [id number] Repair Warranty: 06/21/2021 Loss and Damage Warranty: 06/21/2020 Battery Size: 13 Type of Mold: Acrylic skeleton mold Dispensed By: [facility] Left Ear: Sat Act Instructor: [employer] Model: OPN 1 BTE PP Serial Number: [id number] Repair Warranty: 06/21/2021 Loss and Damage Warranty: 06/21/2020 Battery Size: 13 Type of Mold: Acrylic Skeleton mold Dispensed By: [facility] Follow-Up Summary: Seen today to dispense a loaner hearing aid: [employer] Opn1 BTE PP SN [id number]. His right hearing aid was sent out for repair but lost by [employer] in transit. Still looking for it. Using his personal mold, provided loaner. Left aid had significant moisture in tubing negatively impacting audibility. Demonstrated use of earmold blower and gave him same. Noted improvement. Recommendations: Recommendations (Other): Will program replacement hearing aid when it arrives and provide it to him at [place]. Use January 2022 settings stored in [employer] to program it. Schedule appointment to return loaner, swap earmold and dispense replacement aid. Diagnosis Code(s): Primary Diagnosis: H90.3 Bilateral Sensorineural Hearing Loss Services Performed: SNYDER Non-Quantity Charges: HANC: NonBillable Event Signature: Provider: Destiney Reyna, FAAA
== END 2022-04-04 13:42 | disposition home or self-care (01) ==
LOC: HO.HAP 13:41
PROVIDERS: Visit Provider Internal Medicine
DX: Z13.89 Encounter for screening for other disorder (principal)

== ENCOUNTER 2022-04-20 11:12 | Outpatient (REF) | payer SELFPAY ==
--- NOTE | 2022-04-21 09:00 | MHC.AU.HFU ---
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 The right hearing aid was originally sent out for repair, but was lost by [employer] in transit. [employer] sent a replacement instrument. Patient returned the loaner instrument in good condition. At patient's request, both molds were retubed. Hearing aids were reprogrammed with latest settings. It was noted in the programming that the right hearing aid gain was softer than expected. We did not have any previous audiograms on file. A pure tone air conduction check was performed. Programming was updated with these levels. Patient reported a significant improvement in sound quality and ease of understanding. Hearing aids were paired to his iPhone. Recommendations: Hearing instrument follow-up or maintenance as needed. Diagnosis Code(s): Primary Diagnosis: H90.3 Bilateral Sensorineural Hearing Loss Signature: Provider: An Clifton, [facility]
== END 2022-04-20 11:13 | disposition home or self-care (01) ==
LOC: HO.HAP 11:12
PROVIDERS: Visit Provider Internal Medicine
DX: Z13.89 Encounter for screening for other disorder (principal)

== ENCOUNTER 2022-05-08 07:50 | Inpatient (IN) | payer OTHER, SELFPAY ==
[2022-05-08] VITALS (8 sets, daily range): BP systolic 90–129; BP diastolic 44–81; PULSE 76–93; RESP 12–17; TEMP 36.7–36.9; O2SAT 96–100; BMI 19.8
--- NOTE | ~2022-05-08 | CT_ITS ---
EXAMINATION: CT HEAD WITHOUT CONTRAST CLINICAL INFORMATION: Dizziness COMPARISON: CT 11/21/2021 TECHNIQUE: Contiguous axial imaging was performed from the skull base to vertex without intravenous administration of contrast. This CT examination was performed using dose optimization techniques as appropriate, variously including the following: *Automated exposure control *Adjustment of mA and/or kV according to patient size (this includes techniques or standardized protocols for targeted exams where dose is matched to indication/reason for exam; i.e. extremities or head) *Use of iterative reconstruction technique DLP: 865 mGy-cm FINDINGS: There is no evidence of acute intracranial hemorrhage or edematous territorial infarction. No abnormal mass effect or midline shift is seen. [place] to white matter differentiation is well preserved. No extra-axial fluid collections are identified. The ventricles are normal in size. No abnormal attenuation in the brain parenchyma. No acute calvarial fracture.. Patchy opacification in the right maxillary sinus. Remainder of the paranasal sinuses are well-aerated. Decreased pneumatization of the left mastoid air cells. CT/CT head/brain wo IV con IMPRESSION: No CT evidence of acute intracranial hemorrhage or edematous territorial infarction.
--- NOTE | ~2022-05-08 | XR_ITS ---
EXAMINATION: XR CHEST CLINICAL INFORMATION: Chest pain COMPARISON: 03/06/2022 TECHNIQUE: Frontal view of the chest was obtained. FINDINGS: Lungs are mildly hypoinflated. Small right pleural effusion is unchanged. No airspace disease, pneumothorax or other significant change. Cardiac silhouette is normal in size with right atrial and biventricular AICD in place. Prior transcatheter aortic valve replacement. EKG wires overlie the patient. There are a few old healed right posterior rib fractures. Surgical clips are present in the left upper quadrant. XR/XR chest 1V IMPRESSION: * No acute pulmonary abnormality compared to 03/06/2022. * Chronic small right pleural effusion is present. No acute pulmonary edema. * Old healed right posterior 6th - 8th rib fractures.
--- NOTE | 2022-05-08 07:55 | ECG_ITS ---
Test Reason : DIZZINESS Blood Pressure : / mmHG Vent. Rate : 087 BPM Atrial Rate : 087 BPM P-R Int : 152 ms QRS Dur : 154 ms QT Int : 438 ms P-R-T Axes : 066 249 069 degrees QTc Int : 527 ms Atrial-sensed ventricular-paced rhythm Abnormal ECG When compared with ECG of 06-MAR-2022 01:28, Vent. rate has increased BY 2 BPM Referred By: Josemanuel Neff Electronically Signed By:HARIS EDGAR MD
--- NOTE | 2022-05-08 07:58 | ED_ITS ---
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 He has multiple medical problem which include congestive heart failure, ITP, pneumonia, he has cardiac defibrillator, nonischemic cardiomyopathy, he is anticoagulated with apixaban. He denies any chest pain, shortness of breath, near syncopal episode of syncope any fever nausea vomiting. He was working in this morning he was in the floor of the hospital and was brought down because of the dizziness. MD elicited complaint: dizziness Onset (ago): hour(s) (2) Timing: gradual onset Severity: mild Description: sense of movement History of similar symptoms: No Exacerbating factors: nothing Related Data Home Medications Medication Instructions Recorded Confirmed eplerenone 25 mg tablet (Inspra) 25 mg PO DAILY 11/05/21 05/08/22 furosemide 20 mg tablet (Lasix) 40 mg PO DAILY@1700 03/21/22 05/08/22 furosemide 20 mg tablet 60 mg PO DAILY 05/08/22 05/08/22 Previous Rx's Medication Instructions Recorded ivabradine 5 mg tablet (Corlanor) 5 mg PO BIDWM #180 tabs 12/14/21 levothyroxine 150 mcg tablet 150 mcg PO DAILY 30 days #30 tabs 02/02/22 apixaban 5 mg tablet (Eliquis) 5 mg PO BID 90 days #120 tabs 03/10/22 dapagliflozin 10 mg tablet 10 mg PO DAILY #90 tabs 04/06/22 (Farxiga) Allergies Allergy/AdvReac Type Severity Reaction Status Date / Time No Known Allergies Allergy Verified 03/21/22 15:06 [No Known Allergies*] Review of Systems Constitutional: Constitutional: Reports no additional constitutional complaints and Reports weakness Cardiovascular: Cardiovascular: Denies chest pain and Denies dyspnea on exer tion Respiratory: Respiratory: Denies dyspnea on exertion Gastrointestinal: Gastrointestinal: Denies abdominal pain Neurologic: Reports weakness PMFSH Past Medical History Medical History Acute deep vein thrombosis of upper extremity Acute ITP Anemia Anemia Aortic stenosis, severe Bilateral pulmonary embolism Cardiac resynchronization therapy defibrillator (OIL FIELD RIG BUILDER-D) in place Complete heart block Congestive heart failure COVID-19 COVID-19 vaccine series completed 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[place] syndrome Fever Fever of unknown origin HFrEF (heart failure with reduced ejection fraction) Hodgkins lymphoma Hypocalcemia Hypotension (arterial) Hypothyroidism LBBB (left bundle branch block) Leukocytosis Low TSH level Lung infiltrate Multifocal pneumonia Multinodular thyroid Multinodular thyroid NICM (nonischemic cardiomyopathy) Osteoporosis Pacemaker Pulmonary embolism Recurrent pleural effusion on right Respiratory failure with hypoxia Rib fracture Rib pain Right hip pain Shortness of breath Sinus tachycardia Thrombocytopenia Vitamin D deficiency Surgical History H/O splenectomy History of appendectomy History of cardiac pacemaker History of endoscopy History of esophagogastroduodenoscopy (EGD) History of hip surgery Hx of colonoscopy S/P TAVR (transcatheter aortic valve replacement) Family History Family History Father Healthy adult male Mother Bladder cancer Social History Social History Household Members: Spouse and Children Housing: House Are you a primary animal daycare provider to a significant other at home: No Do you presently have visiting nurse or other home services: No Alcohol intake: current Alcohol intake frequency: holidays/special occasions only Patient Tobacco Use Status: Never used Tobacco e-Cigarette/Vaping Use: Never Used Second Hand Smoke Exposure: No Advance Directives: Yes Advance Directives Information Provided: Yes Advance Directives on File: No Advance Directives Date on File: 01/07/21 service: Yes Current occupational status: employed Current occupational exposures/hazards: No Physical Exam Vital Signs: Vital Signs: Last Vital Signs Temp 98.4 F 05/08/22 14:54 Pulse 84 05/08/22 14:54 Resp 12 05/08/22 14:54 BP 99/62 05/08/22 14:54 Pulse Ox 98 05/08/22 14:54 O2 Del Method 05/08/22 14:54 BMI result Body Mass Index 19.8 Const: General: cooperative and alert Nutritional Appearance: thin Orientation/consciousness: patient oriented x3 HEENT: Head: Yes normal to inspection General nose exam: Normal external nose present Face and sinus: Yes normal facial exam Mouth: Normal oral and palatal mucosa present Throat: Yes posterior oropharynx normal Eyes: Other: Negative nystagmus, negative skew test deviation Conjunctivae: conjunctivae normal Sclerae: sclerae normal EOM: EOMs intact bilaterally Neck: Neck: Yes normal visual inspection Chest: Chest palpation & inspection: normal inspection of the chest Resp: Effort & Inspection: normal respiratory effort Auscultation: clear to auscultation bilaterally Cardio: Jugular venous distension: no JVD Rate: regular rate Rhythm: regular rhythm GI: Inspection: Yes normal to inspection Palpation (GI): Soft to palpation, not firm, nontender and no guarding Auscultation: normal bowel sounds Skin: General skin exam: no rashes or lesions noted Lesions: no lesions Rashes: no rashes Neuro: General: patient oriented x3 Cranial nerves: Yes CN's II-XII intact bilaterally Gait exam (Neuro): Normal gait present MDM - Dizziness Lab Data Result diagrams: 05/08/22 08:13 05/08/22 08:13 Labs: Lab Results 05/08/22 05/08/22 05/08/22 Range/Units 08:13 08:13 08:13 WBC 9.2 (4.8-10.8) X10*3/uL RBC 4.47 L (4.60-5.80) X10*6/uL Hgb 12.1 L (14.0-18.0) g/dl Hct 37.9 L (42.0-52.0) % MCV 84.8 (80.0-98.0) fL MCH 27.1 (27.0-33.0) pg MCHC 31.9 (31.0-36.0) g/dl RDW 17.3 H (11.0-16.0) % Plt Count 358 (160-400) X10*3/uL MPV 9.6 (9.4-12.4) fL Immature Gran % (Auto) 0.3 (0.0-0.4) % Neut % (Auto) 70.4 (45-73) % Lymph % (Auto) 14.3 L (20-40) % [place] % (Auto) 13.3 H (2-11) % Eos % (Auto) 0.9 (0-4) % Baso % (Auto) 0.8 (0-2) % Lymph # (Auto) 1.3 (1.2-4.9) X10*3/uL [place] # (Auto) 1.2 (0.1-1.2) X10*3/uL Eos # (Auto) 0.1 (0.0-0.4) X10*3/uL Baso # (Auto) 0.1 (0.0-0.2) X10*3/uL Abs Immat Gran (auto) 0.03 (0.00-0.03) X10*3/uL Absolute Neuts (auto) 6.5 (2.0-8.3) x10*3/uL Absolute Nucleated RBC 0.000 (0.0-0.012) X10*3/uL Nucleated RBC % (auto) 0.0 (0.0-0.2) /100WBC PT 18.4 H (10.0-13.1) SEC INR 1.6 H (0.9-1.1) APTT 64.3 H* (26.0-36.4) SEC Sodium 138 (135-145) mmol/L Potassium 3.9 (3.3-5.1) mmol/L Chloride 98 (96-108) mmol/L Carbon Dioxide 30 H (22-29) mmol/L Anion Gap 14 (12-20) BUN 19 H (9-16) mg/dL Creatinine 0.86 (0.5-1.4) mg/dL Estim Creat Clear Calc 84.2 Estimated GFR > 60 Random Glucose 101 (60-115) mg/dL Calcium 9.3 (8.4-10.2) mg/dL Total Bilirubin 0.8 (0.0-1.0) mg/dL AST 19 (5-37) U/L ALT 10 (0-40) U/L Alkaline Phosphatase 71 (39-117) U/L Troponin I High Sens (<3.5-35.0) ng/L Total Protein 7.2 (6.5-8.0) g/dL Albumin 4.1 (3.5-5.0) g/dL COVID-19 (SHANICE) (Negative) COVID-19 Clin Com 05/08/22 05/08/22 Range/Units 08:13 14:43 WBC (4.8-10.8) X10*3/uL RBC (4.60-5.80) X10*6/uL Hgb (14.0-18.0) g/dl Hct (42.0-52.0) % MCV (80.0-98.0) fL MCH (27.0-33.0) pg MCHC (31.0-36.0) g/dl RDW (11.0-16.0) % Plt Count (160-400) X10*3/uL MPV (9.4-12.4) fL Immature Gran % (Auto) (0.0-0.4) % Neut % (Auto) (45-73) % Lymph % (Auto) (20-40) % [place] % (Auto) (2-11) % Eos % (Auto) (0-4) % Baso % (Auto) (0-2) % Lymph # (Auto) (1.2-4.9) X10*3/uL [place] # (Auto) (0.1-1.2) X10*3/uL Eos # (Auto) (0.0-0.4) X10*3/uL Baso # (Auto) (0.0-0.2) X10*3/uL Abs Immat Gran (auto) (0.00-0.03) X10*3/uL Absolute Neuts (auto) (2.0-8.3) x10*3/uL Absolute Nucleated RBC (0.0-0.012) X10*3/uL Nucleated RBC % (auto) (0.0-0.2) /100WBC PT (10.0-13.1) SEC INR (0.9-1.1) APTT (26.0-36.4) SEC Sodium (135-145) mmol/L Potassium (3.3-5.1) mmol/L Chloride (96-108) mmol/L Carbon Dioxide (22-29) mmol/L Anion Gap (12-20) BUN (9-16) mg/dL Creatinine (0.5-1.4) mg/dL Estim Creat Clear Calc Estimated GFR Random Glucose (60-115) mg/dL Calcium (8.4-10.2) mg/dL Total Bilirubin (0.0-1.0) mg/dL AST (5-37) U/L ALT (0-40) U/L Alkaline Phosphatase (39-117) U/L Troponin I High Sens 5.4 D (<3.5-35.0) ng/L Total Protein (6.5-8.0) g/dL Albumin (3.5-5.0) g/dL COVID-19 (SHANICE) Negative (Negative) COVID-19 Clin Com See Note Imaging Data CT scan - head: Radiologist's impression: om the skull base to vertex without intravenous administration of contrast. This CT examination was performed using dose optimization techniques as appropriate, variously including the following: *Automated exposure control *Adjustment of mA and/or kV according to patient size (this includes techniques or standardized protocols for targeted exams where dose is matched to indication/reason for exam; i.e. extremities or head) *Use of iterative reconstruction technique DLP: 865 mGy-cm FINDINGS: There is no evidence of acute intracranial hemorrhage or edematous territorial infarction. No abnormal mass effect or midline shift is seen. [place] to white matter differentiation is well preserved. No extra-axial fluid collections are identified. The ventricles are normal in size. No abnormal attenuation in the brain parenchyma. No acute calvarial fracture.. Patchy opacification in the right maxillary sinus. Remainder of the paranasal sinuses are well-aerated. Decreased pneumatization of the left mastoid air cells. CT/CT head/brain wo IV con IMPRESSION: No CT evidence of acute intracranial hemorrhage or edematous territorial infarction. ? Dictated By: Home Spaulding MD Signed By: <Electronically signed by Home Spaulding MD in [place]> 05/08/22 0957 Chest x-ray: Radiologist's impression: COMPARISON: 03/06/2022 TECHNIQUE: Frontal view of the chest was obtained. FINDINGS: Lungs are mildly hypoinflated. Small right pleural effusion is unchanged. No airspace disease, pneumothorax or other significant change. Cardiac silhouette is normal in size with right atrial and biventricular AICD in place. Prior transcatheter aortic valve replacement. EKG wires overlie the patient. There are a few old healed right posterior rib fractures. Surgical clips are present in the left upper quadrant. XR/XR chest 1V IMPRESSION: *? No acute pulmonary abnormality compared to 03/06/2022. *? Chronic small right pleural effusion is present. No acute pulmonary edema. *? Old healed right posterior 6th - 8th rib fractures. ? Dictated By: Cesar Tate MD Signed By: <Electronically halie ECG Data Attestation: I personally reviewed and interpreted this ECG as follows: Pacemaker model: Atrial sensed ventricular paced rhythm rate 87 Pacemaker function: normal pacer function Discharge Plan Discharge Clinical Impression: Dizziness Patient Disposition: Admitted As Inpatient
[2022-05-08 08:18] LABS: MANUAL DIFF FLAG NO
[2022-05-08] MEDS: Meclizine HCl 25 MG TABLET PO (08:20)
[2022-05-08 08:23] LABS: Basophils Absolute Auto 0.1 X10*3/uL (0.0-0.2); Basophils Percent Auto 0.8 % (0-2); Eosinophils Absolute Auto 0.1 X10*3/uL (0.0-0.4); Eosinophils Percent Auto 0.9 % (0-4); Hematocrit 37.9 % (42.0-52.0); Hemoglobin 12.1 g/dl (14.0-18.0); Imm Gran Abs Auto 0.03 X10*3/uL (0.00-0.03); Imm Gran Pct Auto 0.3 % (0.0-0.4); Lymphocytes Absolute Auto 1.3 X10*3/uL (1.2-4.9); Lymphocytes Percent Auto 14.3 % (20-40); Mean Corpuscular HGB Conc 31.9 g/dl (31.0-36.0); Mean Corpuscular Hemoglobin 27.1 pg (27.0-33.0); Mean Corpuscular Volume 84.8 fL (80.0-98.0); Mean Platelet Volume 9.6 fL (9.4-12.4); Monocytes Absolute Auto 1.2 X10*3/uL (0.1-1.2); Monocytes Percent Auto 13.3 % (2-11); Neutrophils Absolute Auto 6.5 x10*3/uL (2.0-8.3); Neutrophils Percent Auto 70.4 % (45-73); Platelet Count 358 X10*3/uL (160-400); Red Blood Count 4.47 X10*6/uL (4.60-5.80); Red Cell Distribution Width 17.3 % (11.0-16.0); White Blood Count 9.2 X10*3/uL (4.8-10.8)
[2022-05-08 08:30] LABS: INTERNATIONAL NORM RATIO 1.6 (0.9-1.1); Prothrombin Time 18.4 SEC (10.0-13.1)
[2022-05-08 08:35] LABS: Alanine Aminotransferase 10 U/L (0-40); Albumin Level 4.1 g/dL (3.5-5.0); Alkaline Phosphatase 71 U/L (39-117); Anion Gap 14 (12-20); Aspartate Amino Transferase 19 U/L (5-37); Bilirubin Total 0.8 mg/dL (0.0-1.0); Blood Urea Nitrogen 19 mg/dL (9-16); Calcium 9.3 mg/dL (8.4-10.2); Carbon Dioxide 30 mmol/L (22-29); Chloride 98 mmol/L (96-108); Creatinine Clr Calc Pharmacy 84.2; Estimated Glomerular Filt Rate > 60; Glucose Random 101 mg/dL (60-115); Potassium 3.9 mmol/L (3.3-5.1); Sodium 138 mmol/L (135-145); Total Protein 7.2 g/dL (6.5-8.0)
[2022-05-08 08:41] LABS: Troponin-I High Sensitivity 5.4 ng/L (<3.5-35.0)
[2022-05-08 08:52] LABS: Partial Thromboplastin Time 64.3 SEC (26.0-36.4)
[2022-05-08] MEDS: 0.9 % Sodium Chloride 1,000 ML 999 ML IVCONT (09:29)
--- NOTE | 2022-05-08 10:23 | PC.NURSE ---
CONTINUES WITH LEFT SHOULDER PAIN PROVIDER AWARE.
[2022-05-08] MEDS: oxyCODONE HCl Immed Release 5 MG TABLET PO (10:30)
--- NOTE | 2022-05-08 14:36 | PHA.MEDREC ---
Pharmacy Consult ? Medication Reconciliation Pharmacy has completed the medication reconciliation. Patient confirmed all medications. Rosmery Ramirez, ColeD
[2022-05-08 15:23] LABS: COVID-19 Test Negative (Negative); IDNOW Serial# 16C4AD1C
--- NOTE | 2022-05-08 15:23 | PM.IMHP ---
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, history of Hodgkin's lymphoma, hypothyroidism, left bundle branch block, was in his usual state of health when he woke up this morning he came to work at work he felt very weak and unsteady on his feet, felt not very well overall therefore was referred to [facility], where patient complained of dizziness but on questioning patient denies room spinning disease, denies vertigo, denies any upper respiratory symptoms, no symptoms of dizziness with change in position, denies shortness of breath, no chest pain, no diaphoresis no palpitations complain of complaining of soreness at site of pacemaker insertion, Denies recent bout of nausea vomiting diarrhea, has chronic urinary frequency being on Lasix, his urinary frequency has increased with addition of Farxiga few weeks ago, he denies weight loss in the emergency room CT head showed no acute abnormality chest x-ray is unremarkable hematocrit is stable electrolytes are normal no acute renal failure noted patient orthostatic vitals are positive. Patient is being admitted to [facility] with symptoms of generalized weakness unsteady gait and positive orthostatic vitals. 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 no vertigo Skin no rash no burning, no dysuria Respiratory no cough, no shortness of breath Yes all other systems are reviewed and are negative COUNT INCLUDES [facility] Medical History Acute deep vein thrombosis of upper extremity Acute ITP Anemia Anemia Aortic stenosis, severe Bilateral pulmonary embolism Cardiac resynchronization therapy defibrillator (AGRICULTURAL AIRCRAFT PILOT-D) in place Complete heart block Congestive heart failure COVID-19 COVID-19 vaccine series completed Enterprise syndrome Enterprise syndrome Fever Fever of unknown origin HFrEF (heart failure with reduced ejection fraction) Hodgkins lymphoma Hypocalcemia Hypotension (arterial) Hypothyroidism LBBB (left bundle branch block) Leukocytosis Low TSH level Lung infiltrate Multifocal pneumonia Multinodular thyroid Multinodular thyroid NICM (nonischemic cardiomyopathy) Osteoporosis Pacemaker Pulmonary embolism Recurrent pleural effusion on right Respiratory failure with hypoxia Rib fracture Rib pain Right hip pain Shortness of breath Sinus tachycardia Thrombocytopenia Vitamin D deficiency Family History Father Healthy adult male Mother Bladder cancer Surgical History H/O splenectomy History of appendectomy History of cardiac pacemaker History of endoscopy History of esophagogastroduodenoscopy (EGD) History of hip surgery Hx of colonoscopy S/P TAVR (transcatheter aortic valve replacement) Social History Household Members: Spouse and Children Housing: House Are you a primary small animal caretaker to a significant other at home: No Do you presently have visiting nurse or other home services: No Alcohol intake: current Alcohol intake frequency: holidays/special occasions only Patient Tobacco Use Status: Never used Tobacco e-Cigarette/Vaping Use: Never Used Second Hand Smoke Exposure: No Advance Directives: Yes Advance Directives Information Provided: Yes Advance Directives on File: No Advance Directives Date on File: 01/07/21 service: Yes Current occupational status: employed Current occupational exposures/hazards: No Meds Allergies Allergy/AdvReac Type Severity Reaction Status Date / Time No Known Allergies Allergy Verified 03/21/22 15:06 [No Known Allergies*] Active Medications: Current Medications Acetaminophen (Acetaminophen 325 Mg Tablet) 650 mg PO Q6H PRN PRN Reason: Pain, Mild (Pain Scale 1-3) Apixaban (Apixaban 5 Mg Tablet) 5 mg PO BID [facility] Levothyroxine Sodium (Levothyroxine Sodium 150 Mcg Tablet) 150 mcg PO DAILY@0600 [facility] Melatonin (Melatonin 3 Mg Tablet) 3 mg PO BEDTIME PRN PRN Reason: Insomnia Non-Formulary Medication (Eplerenone [Inspra]) 25 mg PO DAILY [facility] Non-Formulary Medication (Ivabradine [Corlanor]) 5 mg PO BIDWM [facility] Ondansetron HCl (Ondansetron Hcl 4 Mg/2 Ml Vial) 4 mg IVPUSH Q8H PRN PRN Reason: Nausea and Vomiting Pharmacy Consult (Consult Rx Perform Med Rec) 1 each MISCELLANE ONCE PRN PRN Reason: Consult order Sodium Chloride (0.9 % Sodium Chloride Flush 3 Ml Syringe) 3 ml IVFLUSH QSHIFT [facility] Home Medications Medication Instructions Recorded Confirmed Last Taken Type eplerenone 25 mg tablet (Inspra) 25 mg PO DAILY 11/05/21 05/08/22 11/30/21 History furosemide 20 mg tablet (Lasix) 40 mg PO DAILY@1700 03/21/22 05/08/22 Unknown History furosemide 20 mg tablet 60 mg PO DAILY 05/08/22 05/08/22 Unknown History Physical Exam Vital Signs and Narrative: Vital Signs: Last Vital Signs Temp 98.4 F 05/08/22 14:54 Pulse 84 05/08/22 14:54 Resp 12 05/08/22 14:54 BP 99/62 05/08/22 14:54 Pulse Ox 98 05/08/22 14:54 O2 Del Method 05/08/22 14:54 BMI result Body Mass Index 19.8 Const: Other: General: awake alert x3, no acute distress Anicteric sclera no nystagmus neck no JVD Resp:? Clear to auscultation, no wheeze, no rales, no use of accessory muscles CVS: S1,S2,RRR, systolic murmur right sternal border, no?leg edema GI: Abdomen soft nontender bowel sounds audible no rigidity extremities no lower extremity edema Skin: No rash Neuro:? motor grossly intact Psych:?appropriate affect Results Labs CBC and Chem 7: 05/08/22 08:13 05/08/22 08:13 Labs: Laboratory Results - last 24 hr 05/08/22 05/08/22 05/08/22 08:13 08:13 08:13 MCV 84.8 MCH 27.1 MCHC 31.9 RDW 17.3 H Plt Count 358 MPV 9.6 Immature Gran % (Auto) 0.3 Neut % (Auto) 70.4 Lymph % (Auto) 14.3 L [place] % (Auto) 13.3 H Eos % (Auto) 0.9 Baso % (Auto) 0.8 Lymph # (Auto) 1.3 [place] # (Auto) 1.2 Eos # (Auto) 0.1 Baso # (Auto) 0.1 Abs Immat Gran (auto) 0.03 Absolute Neuts (auto) 6.5 Absolute Nucleated RBC 0.000 Nucleated RBC % (auto) 0.0 PT 18.4 H INR 1.6 H APTT 64.3 H* Anion Gap 14 Estim Creat Clear Calc 84.2 Estimated GFR > 60 Random Glucose 101 Calcium 9.3 Total Bilirubin 0.8 AST 19 ALT 10 Alkaline Phosphatase 71 Troponin I High Sens Total Protein 7.2 Albumin 4.1 05/08/22 08:13 MCV MCH MCHC RDW Plt Count MPV Immature Gran % (Auto) Neut % (Auto) Lymph % (Auto) [place] % (Auto) Eos % (Auto) Baso % (Auto) Lymph # (Auto) [place] # (Auto) Eos # (Auto) Baso # (Auto) Abs Immat Gran (auto) Absolute Neuts (auto) Absolute Nucleated RBC Nucleated RBC % (auto) PT INR APTT Anion Gap Estim Creat Clear Calc Estimated GFR Random Glucose Calcium Total Bilirubin AST ALT Alkaline Phosphatase Troponin I High Sens 5.4 D Total Protein Albumin Imaging Radiologist's Impressions: Impressions Chest X-Ray 05/08/22 09:00 IMPRESSION: * No acute pulmonary abnormality compared to 03/06/2022. * Chronic small right pleural effusion is present. No acute pulmonary edema. * Old healed right posterior 6th - 8th rib fractures. Head CT 05/08/22 09:22 IMPRESSION: No CT evidence of acute intracranial hemorrhage or edematous territorial infarction. Assessment and Plan (1) Dizziness: Status: Acute (2) Weakness: Status: Acute (3) Chronic systolic (congestive) heart failure: Status: Acute Plan 61-year-old male with a past medical history of hypertension, hyperlipidemia, history of severe aortic stenosis, bioprosthetic aortic wall, LBBB, CHF status post AICD, hypothyroidism, history of complete heart block, Hodgkin's lymphoma,? 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 Generalized weakness/unsteady gait. Likely due to orthostatic hypotension patient recently started on Farxiga that can cause orthostatic blood pressures,Will hold Farxiga, hold Lasix today, repeat orthostatic blood pressures Avoid IV fluids due to history of heart failure. CT head unremarkable, normal electrolytes and renal function, normal chest x-ray, stable hematocrit, normal blood sugar follow clinical course check TSH due to low TSH January 2022 PT eval History of chronic heart failure with reduced EF/ nonischemic cardiomyopathy is status post AICD Continue home medication Corlanor and eplrrenone with Left upper extremity DVT, Doppler study upper extremity on March 2022 showed no DVT/noted to have left upper extremity DVT on November of 2021/ on Eliquis for 5 months will discuss with Oncology regarding ? continued use of DVT with neg. 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 ? Quality Stroke Does the patient have a stroke diagnosis?: No VTE Prior VTE?: No VTE Risk Level:: Medical - moderate - high VTE Device Contraindication: Treatment Not Indicated VTE Drug Contraindication: N/A - Med Ordered
[2022-05-08 16:25] LABS: Thyroid Stimulating Hormone 0.88 uIU/mL (0.32-4.0)
--- NOTE | 2022-05-08 17:26 | PC.NURSE ---
Pt is sleeping at this time. Breaths are even and unlabored with equal chest rises. No apparent distress noted. Pt needs IV access as previous IV accidentally removed during previous shift. Will continue to monitor and obtain IV access.
[2022-05-08] MEDS: Ketorolac Tromethamine 30 MG/ML VIAL IVPUSH (22:06)
[2022-05-08] MEDS: Apixaban 5 MG TABLET PO (22:10)
--- NOTE | 2022-05-08 23:21 | PC.NURSE ---
Pts current BP 85/42, MAP 51, HR82. Pt repositioned with bp improvement 90/44 MAP 54 HR 82. Breaths are even and unlabored. Pt in no apparent distress. [place] text sent to .
[2022-05-08] MEDS: Albumin Human 25 % 50 ML 100 ML IV (23:40)
--- NOTE | 2022-05-08 23:45 | PC.NURSE ---
50 ml Albumin 25% started per MD order.
[2022-05-09] VITALS (8 sets, daily range): BP systolic 88–107; BP diastolic 50–58; PULSE 81–96; RESP 16–18; TEMP 36.3–37.1; O2SAT 95–99; BMI 19.8
--- NOTE | 2022-05-09 00:03 | PC.NURSE ---
RN to RN report provided to Lara. Pt to be transferred to room 350. Pt aware.
[2022-05-09] MEDS: Acetaminophen 325 MG TABLET 650 MG PO (03:36)
[2022-05-09] MEDS: Levothyroxine Sodium 150 MCG TABLET PO (06:17)
[2022-05-09] MEDS: Apixaban 5 MG TABLET PO (09:10)
[2022-05-09] MEDS: 0.9 % Sodium Chloride Flush 3 ML SYRINGE IVFLUSH ×3 (09:11→19:26)
--- NOTE | 2022-05-09 16:39 | HO.PM.IMPN ---
Subjective Subjective Date of Service: 05/09/22 Interval History: Patient complaining of weakness was unable to stand up for orthostatic hypotension due to unsteady gait denies dizziness, no vertigo, no headache, denies chest pain, no palpitation no other acute issues since admission no nausea no vomiting no diarrhea tolerating diet, no urinary symptoms orthostatic blood pressures this morning are unremarkable Review of Systems Review of Systems: Yes all other systems are reviewed and are negative Physical Exam Vital Signs: Vital Signs: Last Vital Signs Temp 98.8 F 05/09/22 15:03 Pulse 94 05/09/22 15:03 Resp 18 05/09/22 15:03 BP 101/58 L 05/09/22 15:03 Pulse Ox 98 05/09/22 15:03 O2 Del Method 05/09/22 15:03 BMI result Body Mass Index 19.8 Const: Other: General: awake alert x3, no acute distress neck no JVD Resp:? Clear to auscultation, no wheeze, no rales, no use of accessory muscles CVS: S1,S2,RRR, systolic murmur right sternal border, no?leg edema GI:? Abdomen soft nontender bowel sounds audible no rigidity extremities no lower extremity edema Skin: No rash Neuro:? motor grossly intact Psych:?appropriate affect Objective Data Active Medications Acetaminophen (Acetaminophen 325 Mg Tablet) 650 mg PO Q6H PRN PRN Reason: Pain, Mild (Pain Scale 1-3) Last Admin: 05/09/22 03:36 Dose: 650 mg Documented By: OKSANA Apixaban (Apixaban 2.5 Mg Tablet) 2.5 mg PO BID [facility] Furosemide (Furosemide 20 Mg Tablet) 60 mg PO DAILY [facility]; Protocol Last Admin: 05/09/22 09:08 Dose: Not Given Documented By: TEODORA Non-Admin Reason: Decreased Blood Pressure Furosemide (Furosemide 40 Mg Tablet) 40 mg PO DAILY@1700 [facility]; Protocol Levothyroxine Sodium (Levothyroxine Sodium 150 Mcg Tablet) 150 mcg PO DAILY@0600 [facility] Last Admin: 05/09/22 06:17 Dose: 150 mcg Documented By: OKSANA Melatonin (Melatonin 3 Mg Tablet) 3 mg PO BEDTIME PRN PRN Reason: Insomnia Non-Formulary Medication (Eplerenone [Inspra]) 25 mg PO DAILY [facility] Non-Formulary Medication (Ivabradine [Corlanor]) 5 mg PO BIDWM [facility] Ondansetron HCl (Ondansetron Hcl 4 Mg/2 Ml Vial) 4 mg IVPUSH Q8H PRN PRN Reason: Nausea and Vomiting Pharmacy Consult (Consult Rx Perform Med Rec) 1 each MISCELLANE ONCE PRN PRN Reason: Consult order Sodium Chloride (0.9 % Sodium Chloride Flush 3 Ml Syringe) 3 ml IVFLUSH QSHIFT [facility] Last Admin: 05/09/22 09:11 Dose: 3 ml Documented By: TEODORA Labs CBC & Chem 7: 05/08/22 08:13 05/08/22 08:13 Assessment and Plan (1) Chronic systolic (congestive) heart failure: Status: Acute (2) Orthostatic hypotension: Status: Acute (3) Dizziness: Status: Acute (4) Weakness: Status: Acute Plan 61-year-old male with a past medical history of hypertension, hyperlipidemia, history of severe aortic stenosis, bioprosthetic aortic wall, LBBB, CHF status post AICD, hypothyroidism, history of complete heart block, Hodgkin's lymphoma,? 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 Generalized weakness/unsteady gait. persistent weakness. Repeat blood pressures studies show stable blood pressure (has chronic low blood pressures) no orthostatic hypotension orthostatic hypotension on admission was likely related to Farxiga that can cause orthostatic blood pressures,Will hold Farxiga, informed CT head unremarkable, normal electrolytes and renal function, normal chest x-ray, stable hematocrit, normal blood sugar, TSH 0.88 PT eval rec STR vs Home with PT/l encourage ambulation History of chronic heart failure with reduced EF/ nonischemic cardiomyopathy status post AICD Continue home medication Corlanor and eplrrenone and lasix Left upper extremity DVT, Doppler study upper extremity on March 2022 showed no DVT/noted to have left upper extremity DVT on November of 2021/ repeat Doppler study in March negative for DVT on Eliquis for 5 months Case discussed with Dr. Merchant she recommend to lower dose of Eliquis to 2.5 mg b.i.d. 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 Patient need continued inpatient hospitalization for persistent generalized weakness and unsteady gait need safe discharge plan Quality Stroke Does the patient have a stroke diagnosis?: No VTE Prior VTE?: No VTE Risk Level:: Medical - moderate - high VTE Device Contraindication: Treatment Not Indicated VTE Drug Contraindication: N/A - Med Ordered
[2022-05-09] MEDS: Furosemide 40 MG TABLET PO (17:51)
[2022-05-09] MEDS: Apixaban 2.5 MG TABLET PO (19:26)
[2022-05-10] VITALS: BP 86/52; PULSE 95; RESP 17; TEMP 36.6; O2SAT 94
[2022-05-10] MEDS: diphenhydrAMINE HCL 25 MG TABLET PO (02:50)
[2022-05-10 07:46] VITALS: BP 99/52; PULSE 90; RESP 18; TEMP 37; O2SAT 95
[2022-05-10 07:52] VITALS: BP 101/57; PULSE 94
[2022-05-10 08:00] VITALS: BP 91/44; BP 94/59; PULSE 101; PULSE 97; TEMP 37.4; O2SAT 97
[2022-05-10] MEDS: Levothyroxine Sodium 150 MCG TABLET PO ×2 (09:13→09:14)
[2022-05-10] MEDS: 0.9 % Sodium Chloride Flush 3 ML SYRINGE IVFLUSH (09:13)
[2022-05-10] MEDS: Furosemide 20 MG TABLET 60 MG PO (09:13)
[2022-05-10] MEDS: Apixaban 2.5 MG TABLET PO (09:13)
--- NOTE | 2022-05-10 11:23 | P.DS_ITS ---
DS: Providers Provider Date of Service: 05/10/22 Date of admission: 05/09/22 09:56 Date of discharge: 05/10/22 Primary care physician: Unknown Physician DS: Diagnosis Discharge Diagnosis (1) Orthostatic hypotension: Status: Acute (2) History of DVT (deep vein thrombosis): Status: Acute DS: Summary Hospital Course Hospital Course: from admission history and physical by hospitalist Susan Perdomo MD, 05/08/22: 61-year-old gentleman with past medical history significant for nonischemic cardiomyopathy, status post transcatheter aortic valve replacement, status post biventricular ICD, history of left upper extremity DVT, history of complete heart block, 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, history of Hodgkin's lymphoma, hypothyroidism, left bundle branch block, was in his usual state of health when he woke up this morning he came to work at work he felt very weak and unsteady on his feet, felt not very well overall therefore was referred to [facility], where patient complained of dizziness but on questioning patient denies room spinning disease, denies vertigo, denies any upper respiratory symptoms, no symptoms of dizziness with change in position, denies shortness of breath, no chest pain, no diaphoresis no palpitations complain of complaining of soreness at site of pacemaker insertion, Denies recent bout of nausea vomiting diarrhea, has chronic urinary frequency being on Lasix, his urinary frequency has increased with addition of Farxiga few weeks ago, he denies weight loss in the emergency room CT head showed no acute abnormality chest x-ray is unremarkable hematocrit is stable electrolytes are normal no acute renal failure noted patient orthostatic vitals are positive.? Patient is being admitted to [facility] with symptoms of generalized weakness unsteady gait and positive orthostatic vitals. He was admitted to the medical/surgical unit. Orthostatic hypotension was attributed to Farxiga, which was discontinued. Orthostasis resolved with this move. Weakness and lightheadedness resolved. Other home medications for chronic HFrEF/NICM were continued. As for LUEVT which was diagnosed in November 2021, repeat Doppler in March was negative; per discussion with hematology, apixaban was decreased to 2.5 mg bid. He was discharged home with instructions to follow up with Primary Care and Cardiology. Time Spent with Patient Time attestation: Total time spent providing and/or coordinating discharge services: 35 Discharge coordination time: Greater than 30 minutes Quality: Safe Use of Opioids Does Pt have an Active Cancer Diagnosis on the Problem List?: No Quality: Stroke Does the patient have a stroke diagnosis?: No Physical Exam Vital Signs: Vital Signs: Last Vital Signs Temp 99.4 F 05/10/22 08:00 Pulse 97 05/10/22 08:00 Resp 18 05/10/22 07:46 BP 91/44 L 05/10/22 08:00 Pulse Ox 97 05/10/22 08:00 O2 Del Method 05/10/22 08:00 BMI result Body Mass Index 19.8 Gen: in no acute distress HEENT: sclera anicteric, moist mucus membranes Neck: supple Lungs: clear to auscultation bilaterally Heart: regular rate and rhythm, no murmurs Abd: soft, non-tender, non-distended Ext: no edema Skin: warm/well-perfused Neuro: alert and oriented x3, no focal findings Psych: appropriate affect DS: Data Data Completed and Pending Completed studies during hospitalization [Text1]: Laboratory Results WBC 9.2 X10*3/uL (4.8-10.8) 05/08/22 08:13 RBC 4.47 X10*6/uL (4.60-5.80) L 05/08/22 08:13 Hgb 12.1 g/dl (14.0-18.0) L 05/08/22 08:13 Hct 37.9 % (42.0-52.0) L 05/08/22 08:13 MCV 84.8 fL (80.0-98.0) 05/08/22 08:13 MCH 27.1 pg (27.0-33.0) 05/08/22 08:13 MCHC 31.9 g/dl (31.0-36.0) 05/08/22 08:13 RDW 17.3 % (11.0-16.0) H 05/08/22 08:13 Plt Count 358 X10*3/uL (160-400) 05/08/22 08:13 MPV 9.6 fL (9.4-12.4) 05/08/22 08:13 Immature Gran % (Auto) 0.3 % (0.0-0.4) 05/08/22 08:13 Neut % (Auto) 70.4 % (45-73) 05/08/22 08:13 Lymph % (Auto) 14.3 % (20-40) L 05/08/22 08:13 [place] % (Auto) 13.3 % (2-11) H 05/08/22 08:13 Eos % (Auto) 0.9 % (0-4) 05/08/22 08:13 Baso % (Auto) 0.8 % (0-2) 05/08/22 08:13 Lymph # (Auto) 1.3 X10*3/uL (1.2-4.9) 05/08/22 08:13 [place] # (Auto) 1.2 X10*3/uL (0.1-1.2) 05/08/22 08:13 Eos # (Auto) 0.1 X10*3/uL (0.0-0.4) 05/08/22 08:13 Baso # (Auto) 0.1 X10*3/uL (0.0-0.2) 05/08/22 08:13 Abs Immat Gran (auto) 0.03 X10*3/uL (0.00-0.03) 05/08/22 08:13 Absolute Neuts (auto) 6.5 x10*3/uL (2.0-8.3) 05/08/22 08:13 Absolute Nucleated RBC 0.000 X10*3/uL (0.0-0.012) 05/08/22 08:13 Nucleated RBC % (auto) 0.0 /100WBC (0.0-0.2) 05/08/22 08:13 PT 18.4 SEC (10.0-13.1) H 05/08/22 08:13 INR 1.6 (0.9-1.1) H 05/08/22 08:13 APTT 64.3 SEC (26.0-36.4) H* 05/08/22 08:13 Sodium 138 mmol/L (135-145) 05/08/22 08:13 Potassium 3.9 mmol/L (3.3-5.1) 05/08/22 08:13 Chloride 98 mmol/L (96-108) 05/08/22 08:13 Carbon Dioxide 30 mmol/L (22-29) H 05/08/22 08:13 Anion Gap 14 (12-20) 05/08/22 08:13 BUN 19 mg/dL (9-16) H 05/08/22 08:13 Creatinine 0.86 mg/dL (0.5-1.4) 05/08/22 08:13 Estim Creat Clear Calc 84.2 05/08/22 08:13 Estimated GFR > 60 05/08/22 08:13 Random Glucose 101 mg/dL (60-115) 05/08/22 08:13 Calcium 9.3 mg/dL (8.4-10.2) 05/08/22 08:13 Total Bilirubin 0.8 mg/dL (0.0-1.0) 05/08/22 08:13 AST 19 U/L (5-37) 05/08/22 08:13 ALT 10 U/L (0-40) 05/08/22 08:13 Alkaline Phosphatase 71 U/L (39-117) 05/08/22 08:13 Troponin I High Sens 5.4 ng/L (<3.5-35.0) D 05/08/22 08:13 Total Protein 7.2 g/dL (6.5-8.0) 05/08/22 08:13 Albumin 4.1 g/dL (3.5-5.0) 05/08/22 08:13 TSH 0.88 uIU/mL (0.32-4.0) 05/08/22 08:13 COVID-19 (SHANICE) Negative (Negative) 05/08/22 14:43 COVID-19 Clin Com See Note 05/08/22 14:43 Impressions Chest X-Ray 05/08/22 09:00 IMPRESSION: * No acute pulmonary abnormality compared to 03/06/2022. * Chronic small right pleural effusion is present. No acute pulmonary edema. * Old healed right posterior 6th - 8th rib fractures. Head CT 05/08/22 09:22 IMPRESSION: No CT evidence of acute intracranial hemorrhage or edematous territorial infarction. Discharge Plan Discharge Anticipated Discharge Date/Time: 05/10/22 11:19 Patient Disposition: Home, Self-Care Discharge Diagnosis: orthostatic hypotension, likely due to Farxiga Referrals: Yesica Burden MD [Physician] - 1 Week Hamilton Wyman MD [Physician] - 2 Weeks Discharge Medications: New Eliquis 2.5 mg Tablet 2.5 mg PO BID Qty: 60 0RF Rx Instructions: replaces prior dose of 5 mg bid Continued levothyroxine 150 mcg tablet 150 mcg PO DAILY 30 Days Qty: 30 3RF eplerenone [Inspra] 25 mg tablet 25 mg PO DAILY furosemide [Lasix] 20 mg tablet 40 mg PO DAILY@1700 furosemide 20 mg tablet 60 mg PO DAILY Corlanor 5 mg tablet 5 mg PO BIDWM Qty: 180 3RF Rx Instructions: must administer with a meal/food Discontinued Farxiga 10 mg tablet 10 mg PO DAILY Qty: 90 3RF Eliquis 5 mg Tablet 5 mg PO BID 90 Days Qty: 120 4RF Discharge Orders: Discharge Order (Routine); Ordered 05/10/22 Ordered By: Zachary Read Diet: Low salt diet Activity on Discharge: As tolerated Stand Alone Forms: Patient Portal Discharge page Care Plan Goals: avoid orthostatic hypotension Health Concerns: orthostatic hypotension, likely due to Farxiga Plan of Treatment: stop Farxiga and see your 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 Return to the hospital if you experience recurrent or worsening symptoms. reduce dose of apixaban to 2.5 mg bid Assessment: See Discharge Summary.
[2022-05-10 11:42] VITALS: BP 93/59; PULSE 100; RESP 18; TEMP 36.9; O2SAT 100
--- NOTE | 2022-05-10 12:14 | MHC.CM.PN ---
PT MEDICALLY CLEARED FOR D/C HOME SELF-CARE, PT TO ARRANGE TRANSPORT
--- NOTE | 2022-05-10 15:18 | MHC.CM.PN ---
LATE ENTRY NOTE FOR 05/09/22, EMR REVIEWED, CM MET W/PT WHO REPORTS HE LIVES W/ AND 2 CHILDREN, PT REPORTS THE ONLY DME HE USES IS A CANE ON OCCASION AND HAS NO SERVICES HE IS STILL WORKING, PT'S IS HCP AND COPY ON FILE FROM PREVIOUS ADMISSION, COVID VACCINE X4 AND PCP VERIFIED [facility]. ANTIC D/C HOME NO SERVICES WHEN MEDICALLY CLEARED W/FAMILY FOR TRANSPORT.
== END 2022-05-10 13:06 | disposition home or self-care (01) | DRG 207 ==
LOC: HO.ED 13:44 → HO.EDOVER 15:21 → HO.S3 23:26
PROVIDERS: Admitting Provider Hospitalist; Emergency Provider Emergency Medicine; PCP Internal Medicine; Visit Provider Family Medicine
DX: I95.2 Hypotension due to drugs (principal); I42.8 Other cardiomyopathies; I50.22 Chronic systolic (congestive) heart failure; E44.0 Moderate protein-calorie malnutrition; Q85.82 Other Cowden syndrome; Z68.1 Body mass index [BMI] 19.9 or less, adult; E03.9 Hypothyroidism, unspecified; I44.7 Left bundle-branch block, unspecified; T38.3X5A Adverse effect of insulin and oral hypoglycemic [antidiabetic] drugs, initial encounter; Z20.822 Contact with and (suspected) exposure to COVID-19; Z86.718 Personal history of other venous thrombosis and embolism; Z95.810 Presence of automatic (implantable) cardiac defibrillator; Z85.72 Personal history of non-Hodgkin lymphomas; Z79.890 Hormone replacement therapy; Z95.2 Presence of prosthetic heart valve; Z79.899 Other long term (current) drug therapy
CPT/HCPCS: 36415; 70450; 71045; 80053; 84443; 84484; 85025; 85610; 85730; 87635; 93005; 97161; 99285; J1885; P9047; Q0163

== ENCOUNTER 2022-05-12 07:37 | Outpatient (REF) | payer OTHER, SELFPAY ==
--- NOTE | 2022-05-12 08:45 | PM.OP ---
Brief Operative Note Date of Service: 05/12/22 Pre-op diagnosis: Multinodular Thyroid Procedure: EXAMINATION: US THYROID CLINICAL INFORMATION: Multinodular Thyroid COMPARISON: Prior TECHNIQUE: Linear transducer pugh-scale and color Doppler examination with attention to the region of the thyroid. FINDINGS: SIZE: Measurements of the thyroid lobes and nodules are given in sagittal, anteroposterior and transverse dimensions respectively. Right Thyroid Lobe: 3.7 x 1.5 x 1.1 cm, volume 3.2 mL. Parenchyma: The gland echotexture is heterogenous. Thyroid vascularity is mildly increased. Left Thyroid Lobe: 1.9 x 0.7 x 1.0 cm, volume 0.7 mL. Parenchyma: The gland echotexture is heterogenous. Thyroid vascularity is normal. Isthmus: 0.1 cm in maximum AP dimension. RIGHT THYROID LOBE: There is 1 nodule. There is a 0.7 x 0.6 x 0.7 cm predominantly solid slightly hypoechoic nodule in the right upper pole. This has regular margins and has decreased in size from his prior US when it was measuring 1.2 cm. Just posterior to the capsule of the R thyroid near the mid pole is a 1.1 cm hypoechoic mass which appears to be parathyroid with a feeding vessel off the carotid artery. LEFT THYROID LOBE: There are no nodules. NODES: No lymphadenopathy is seen in the tissue surrounding the thyroid gland. IMPRESSION: 0.7 cm RUP nodule which has decreased in size from prior (previously measuring 1.2 cm). No FNA biopsy of this nodule is indicated today. The 1.1 cm hypoechoic lesion appears to be posterior to the R thyroid capsule and likely represents a parathyroid adenoma. Will check parathyroid labs now to correlate. I discussed this with the Patient. We will repeat a thyroid US in 6 months time to monitor these lesions. Surgeon: Fatoumata Hathaway, DO Was an Senior Telecommunications Consultant used for this Procedure?: No Estimated blood loss (mL): 0
[2022-05-12 10:14] LABS: Alanine Aminotransferase 11 U/L (0-40); Albumin Level 4.2 g/dL (3.5-5.0); Alkaline Phosphatase 76 U/L (39-117); Anion Gap 16 (12-20); Aspartate Amino Transferase 19 U/L (5-37); Bilirubin Total 0.8 mg/dL (0.0-1.0); Blood Urea Nitrogen 15 mg/dL (9-16); Calcium 9.6 mg/dL (8.4-10.2); Carbon Dioxide 30 mmol/L (22-29); Chloride 96 mmol/L (96-108); Estimated Glomerular Filt Rate > 60; Glucose Random 100 mg/dL (60-115); Phosphorus 4.1 mg/dL (2.7-4.5); Potassium 4.3 mmol/L (3.3-5.1); Sodium 138 mmol/L (135-145); Total Protein 7.2 g/dL (6.5-8.0)
[2022-05-12 10:21] LABS: Free T4 (Free Thyroxine) 1.28 ng/dL (0.71-1.85); Thyroid Stimulating Hormone 2.13 uIU/mL (0.32-4.0); Vitamin D 25-OH Total 18.2 ng/mL (>30)
[2022-05-16 15:02] LABS: Calcium (PTHI) 9.6 mg/dL (8.6-10.3); PTHI 59 pg/mL (16-77)
== END 2022-05-12 07:38 | disposition home or self-care (01) ==
LOC: HO.US 07:37
PROVIDERS: Internal Medicine Medical Oncology; Visit Provider Internal Medicine
DX: E04.2 Nontoxic multinodular goiter (principal); E55.9 Vitamin D deficiency, unspecified
CPT/HCPCS: 36415; 76536; 80053; 82306; 83970; 84100; 84439; 84443

== ENCOUNTER 2022-05-26 11:42 | Outpatient (REF) | payer OTHER, SELFPAY ==
--- NOTE | ~2022-05-26 | XR_ITS ---
EXAMINATION: XR PELVIS CLINICAL INFORMATION: Pain. COMPARISON: None TECHNIQUE: AP view of the pelvis. FINDINGS: The SI joints are symmetrical and normal. There is no visible acute fracture, dislocation or subluxation seen. There are 3 cancellous screws traversing the left femoral neck for an old healed fracture. The acetabular spurring is seen slightly greater on the left. No lytic or sclerotic process visualized. There are surgical portillo overlying the right iliac bone from previous intervention. XR/XR pelvis 1-2V IMPRESSION: 1. There are 3 cancellous screws traversing the left femoral neck for an old healed fracture. 2. There is no visible acute fracture or dislocation seen.
== END 2022-05-26 11:43 | disposition home or self-care (01) ==
LOC: HO.HOSX 11:42
PROVIDERS: Visit Provider Orthopaedic Surgery
DX: S72.90XA Unspecified fracture of unspecified femur, initial encounter for closed fracture (principal)
CPT/HCPCS: 72170; 99212

== ENCOUNTER 2022-06-07 14:15 | Outpatient (REF) | payer SELFPAY ==
--- NOTE | 2022-06-07 16:55 | MHC.AU.HFU ---
Hearing Instrument Follow-Up- Binaural Date of Visit: 06/07/22 Right Ear: Photoengraving Finisher: O[employer]on Model: OPN 1 BTE PP Serial Number: Oticon Opn 1 PP BTE, [id number] Repair Warranty: 06/21/2021 Loss and Damage Warranty: 06/21/2020 Battery Size: 13 Type of Mold: Acrylic skeleton mold Dispensed By: [facility] Date of Fitting: Per [employer], shipped on 05/22/2018 Left Ear: Photoengraving Finisher: O[employer]on Model: OPN 1 BTE PP Serial Number: Oticon Opn 1 PP BTE, [id number] Repair Warranty: 06/21/2021 Loss and Damage Warranty: 06/21/2020 Battery Size: 13 Type of Mold: Acrylic Skeleton mold Dispensed By: [facility] Date of Fitting: Per [employer], shipped 05/22/2018 Follow-Up Summary: The patient is here today for a hearing aid check/cleaning. He produces a significant amount of cerumen and gets cerumen removal by Dr. Lawrence regularly every 3-4 months. He is going to see him in 2 days for cerumen removal. Visual inspection of the patient's hearing aids reveals cerumen in the ear mold tubing and venting. He would like it cleaned. Tubing was replaced bilaterally with 13 tubing. Ear molds were thoroughly cleaned. Hearing aids microphones were brushed. Listening check reveals clear sound bilaterally. The patient reported good volume. We spent some time reviewing out of warranty hearing aid costs. I had quoted $50 for today's visit, but the patient is under the impression that the $185 transfer fee he previously paid covers cleanings at a reduced cost. He was informed that pricing has changed at our clinic and I provided him with an updated wolf list. He is unsure if he can come here moving forward due to his frequent need of cleanings. I did mention the service plan. The patient will think about it. I did end up providing the patient with a courtesy cleaning today. I will clarify hearing aid costs for this patient as he is an [employer] employee and our office will update him. Diagnosis Code(s): Primary Diagnosis: H90.3 Bilateral Sensorineural Hearing Loss Signature: Provider: Katherine Nj, [facility]
== END 2022-06-07 14:16 | disposition home or self-care (01) ==
LOC: HO.HAP 14:15
PROVIDERS: Visit Provider Internal Medicine
DX: Z13.89 Encounter for screening for other disorder (principal)

== ENCOUNTER → 2022-06-28 14:49 | Outpatient (BNVA) | payer OTHER, SELFPAY | PROVIDERS: PCP Internal Medicine; Referring Provider Internal Medicine; Visit Provider Internal Medicine | DX: I42.8 Other cardiomyopathies (principal) ==

== ENCOUNTER 2022-08-01 19:39 | Observation (INO) | payer OTHER, SELFPAY ==
--- NOTE | ~2022-08-01 | XR_ITS ---
EXAMINATION: XR CHEST CLINICAL INFORMATION: Shortness of breath COMPARISON: Chest x-ray 05/08/2020, 03/06/2022 TECHNIQUE: Frontal view of the chest was obtained. FINDINGS: Small right pleural effusion versus pleural thickening, unchanged. No airspace consolidation. No left pleural effusion or pneumothorax. Cardiomediastinal silhouette is unchanged. Left-sided biventricular AICD changes of prior TAVR redemonstrated. No evidence of pulmonary edema. Chronic/healed right posterior rib fracture deformities are seen. No acute osseous injury. Surgical clips project in the left upper quadrant. XR/XR chest 1V IMPRESSION: 1. Small right pleural effusion versus pleural thickening, unchanged. 2. No acute pulmonary process.
--- NOTE | ~2022-08-01 | CT_ITS ---
EXAMINATION: CT ANGIOGRAM OF THE CHEST WITH AND WITHOUT CONTRAST (CT PULMONARY ANGIOGRAM FOR PE) CLINICAL INFORMATION: Reason for Exam near syncope, sob, off eliquis, hx PEs COMPARISON: 03/06/2022 TECHNIQUE: Prior to contrast administration, noncontrast localization images were obtained. Subsequently, multidetector volumetric imaging was performed from the thoracic inlet to below the diaphragms following the administration of 65 mL Omnipaque 350 intravenous contrast. No contrast reaction reported Sagittal, coronal, and MIP oblique sagittal reformatted images were obtained on the CT workstation, uploaded to PACS, and reviewed. This CT examination was performed using dose optimization techniques as appropriate, variously including the following: *Automated exposure control *Adjustment of mA and/or kV according to patient size (this includes techniques or standardized protocols for targeted exams where dose is matched to indication/reason for exam; i.e. extremities or head) *Use of iterative reconstruction technique Total exam dose-length product 323 mGy-cm FINDINGS: QUALITY OF STUDY/CONTRAST BOLUS: Suboptimal. PULMONARY ARTERIES: Suboptimal assessment of multiple vessels due to bolus timing and respiratory motion artifact. However, there is a segmental filling defect in the superior right lower lobe such as on image 196/440 which is suspicious for pulmonary embolus. THORACIC AORTA: No aneurysm or dissection. Status post TAVR. LUNG: Redemonstrated regions of paramediastinal heterogeneous opacity bilaterally, similar to prior. Dependent areas of atelectasis or dependent in the lower lobes. Detailed assessment of the lung parenchyma is limited due to respiratory motion artifact. PLEURA: Small pleural effusions noted, left greater than right MEDIASTINUM: Thyroid gland appears diminutive. No discrete mediastinal lymphadenopathy is seen. Redemonstrated pericardial calcifications without significant pericardial effusion. No evidence of septal bowing or right heart strain. CORONARY ARTERY CALCIFICATION: Present CHEST WALL/AXILLA: No definite adenopathy is seen, though assessment of the left axilla is limited due to artifact from generator device in the chest wall. OSSEOUS STRUCTURES: Multiple healed right rib fractures noted. Mild degenerative changes are present in the spine. UPPER ABDOMEN: Unremarkable. No reflux of contrast into the hepatic veins to suggest elevated right heart pressures. CT/CT angio chest PE protocol IMPRESSION: 1. Segmental filling defect in the superior right lower lobe, suspicious for pulmonary embolus. 2. Small pleural effusions, left greater than right. 3. Redemonstrated regions of paramediastinal opacity bilaterally, similar to prior. VTE: positive This critical result was discussed with Dr. Soni on 08/01/2022 11:21 PM, and it was ascertained that the content and urgency of the report was understood at the time of direct communication.
--- NOTE | 2022-08-01 19:41 | ECG_ITS ---
Test Reason : SYNCOPE Blood Pressure : / mmHG Vent. Rate : 094 BPM Atrial Rate : 094 BPM P-R Int : 146 ms QRS Dur : 156 ms QT Int : 440 ms P-R-T Axes : 060 246 070 degrees QTc Int : 550 ms Atrial-sensed ventricular-paced rhythm Abnormal ECG When compared with ECG of 01-AUG-2022 19:42, Vent. rate has decreased BY 5 BPM Referred By: Generic ED Physician Electronically Signed By:
[2022-08-01 19:44] VITALS: BP 126/71; PULSE 95; RESP 19; TEMP 36.8; O2SAT 96; BMI 21.2
[2022-08-01 20:01] LABS: MANUAL DIFF FLAG NO
[2022-08-01 20:02] LABS: Basophils Absolute Auto 0.1 X10*3/uL (0.0-0.2); Eosinophils Absolute Auto 0.2 X10*3/uL (0.0-0.4); Eosinophils Percent Auto 1.9 % (0-4); Hematocrit 36.2 % (42.0-52.0); Hemoglobin 11.9 g/dl (14.0-18.0); Imm Gran Abs Auto 0.03 X10*3/uL (0.00-0.03); Imm Gran Pct Auto 0.3 % (0.0-0.4); Lymphocytes Absolute Auto 1.4 X10*3/uL (1.2-4.9); Lymphocytes Percent Auto 13.6 % (20-40); Mean Corpuscular HGB Conc 32.9 g/dl (31.0-36.0); Mean Corpuscular Hemoglobin 28.6 pg (27.0-33.0); Mean Platelet Volume 9.1 fL (9.4-12.4); Monocytes Absolute Auto 1.1 X10*3/uL (0.1-1.2); Monocytes Percent Auto 10.9 % (2-11); Neutrophils Absolute Auto 7.5 x10*3/uL (2.0-8.3); Neutrophils Percent Auto 72.3 % (45-73); Platelet Count 400 X10*3/uL (160-400); Red Blood Count 4.16 X10*6/uL (4.60-5.80); Red Cell Distribution Width 15.5 % (11.0-16.0); White Blood Count 10.4 X10*3/uL (4.8-10.8)
[2022-08-01 20:28] LABS: Anion Gap 14 (12-20); Blood Urea Nitrogen 20 mg/dL (9-16); Calcium 8.8 mg/dL (8.4-10.2); Carbon Dioxide 28 mmol/L (22-29); Chloride 100 mmol/L (96-108); Creatinine Clr Calc Pharmacy 98.1; Estimated Glomerular Filt Rate > 60; Glucose Random 112 mg/dL (60-115); Potassium 3.9 mmol/L (3.3-5.1); Sodium 138 mmol/L (135-145)
[2022-08-01 20:36] LABS: Troponin-I High Sensitivity 3.5 ng/L (<3.5-35.0)
--- NOTE | 2022-08-01 20:53 | PHA.MEDREC ---
Pharmacy Consult ? Medication Reconciliation Pharmacy has completed the medication reconciliation.
[2022-08-01 21:03] LABS: INTERNATIONAL NORM RATIO 1.3 (0.9-1.1); Prothrombin Time 14.6 SEC (10.0-13.1)
[2022-08-01 21:05] LABS: D Dimer High Sensitivity 1874 NG/ML
[2022-08-01 21:08] LABS: Lactic Acid 2.4 mmol/L (0.5-2.0)
[2022-08-01 21:13] LABS: Alanine Aminotransferase 16 U/L (0-40); Albumin Level 3.9 g/dL (3.5-5.0); Alkaline Phosphatase 77 U/L (39-117); Aspartate Amino Transferase 32 U/L (5-37); Bilirubin Direct < 0.2 mg/dL (0.0-0.5); Bilirubin Total 0.5 mg/dL (0.0-1.0)
[2022-08-01 21:16] LABS: B Type Natriuretic Peptide 73 pg/mL (<100)
[2022-08-01 21:18] LABS: COVID-19 Test Negative (Negative); IDNOW Serial# 16C4AD1C
[2022-08-01 21:19] LABS: IDNOW Serial# BCCEAD1C; Influenza A Negative (Negative); Influenza B2 Negative (Negative)
[2022-08-01] MEDS: LORazepam 2 MG/ML VIAL IVPUSH (21:46)
[2022-08-01 22:22] VITALS: BP 113/71; PULSE 96; RESP 18; TEMP 36.8; O2SAT 94
--- NOTE | 2022-08-01 22:23 | ED.GENADULT ---
HPI - General Adult General Chief complaint: General Medical Stated complaint: Syncope Time Seen by Provider: 08/01/22 20:12 Source: patient Mode of arrival: other (Stretcher) Limitations: no limitations History of Present Illness HPI narrative: Patient comes to the emergency room via wheelchair to the emergency room. Patient works works here at [employer]. 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 Patient states that he was gasping for air. Patient called for help and he was assisted immediately. Patient did not fall or get any injuries. Patient was helped to sit down. Patient remembers everything, did not lose consciousness. Patient brought to the emergency in a stretcher. Patient denies chest pain or palpitations. Patient states that he does not feel good. Patient reports that earlier today he started feeling not quite right around lunchtime. Patient states he had an episode of diarrhea. Patient denies any vomiting. Of note, patient has history of DVTs and pulmonary embolisms. Patient stop taking Eliquis approximately 2 months ago, patient states that he was instructed by his globe mounter Related Data Home Medications Medication Instructions Recorded Confirmed eplerenone 25 mg tablet (Inspra) 25 mg PO DAILY 11/05/21 08/01/22 furosemide 20 mg tablet 40 mg PO DAILY@1700 06/28/22 08/01/22 furosemide 20 mg tablet (Lasix) 60 mg PO DAILY 06/28/22 08/01/22 aspirin 81 mg tablet,delayed 1 tab PO DAILY 08/01/22 08/01/22 release Previous Rx's Medication Instructions Recorded ivabradine 5 mg tablet (Corlanor) 5 mg PO BIDWM #180 tabs 12/14/21 levothyroxine 150 mcg tablet 150 mcg PO DAILY 30 days #30 tabs 02/02/22 Allergies Allergy/AdvReac Type Severity Reaction Status Date / Time No Known Allergies Allergy Verified 06/28/22 14:57 [No Known Allergies*] Review of Systems Review of Systems: Constitutional : No Weight loss, No Fever, No Chills, No Night Sweats, No Fatigue, No Malaise ENT/Mouth : No Hearing loss, No Ear Pain, No Nasal Congestion, No Sinus Pain, No Hoarseness, No sore throat, No Rhinorrhea, No Swallowing Difficulty Eyes: No Eye Pain, No Swelling, No Redness, No Foreign Body, No Discharge, No Vision Changes Cardiovascular : No Chest Pain, no orthopnea, no palpitations Respiratory : URI like symptoms for several days, no wheezing, shortness of breath prior to near syncopal episode Gastrointestinal : No Nausea, No Vomiting, No Diarrhea, No Constipation, No abdominal Pain, No Hematochezia, No Melena Genitourinary : no irregular bleeding, No Dysuria, No Urinary Frequency, No Hematuria, No Urinary Incontinence, No Urgency, No Flank Pain, No Urinary Flow Changes, No Hesitancy Musculoskeletal : No joint pain, No Myalgias, No Joint Swelling Skin : No Skin Lesions, No rash Neuro : Patient complaining of weakness, no loss of consciousness, complaining of dizziness Psych : No Anxiety/Panic, No Depression, No SI/HI/AH/VH, No Social Issues, Heme/Lymph: No Bruising, No Bleeding,No Lymphadenopathy Endocrine : No Polyuria, No Polydipsia, No Temperature Intolerance PMFSH Past Medical History Medical History Acute deep vein thrombosis of upper extremity Acute ITP Anemia Anemia Aortic stenosis, severe Bilateral pulmonary embolism Cardiac resynchronization therapy defibrillator (DRAPERY COUNSELOR-D) in place Chronic systolic (congestive) heart failure Complete heart block Congestive heart failure COVID-19 COVID-19 vaccine series completed 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Fever Fever of unknown origin HFrEF (heart failure with reduced ejection fraction) Hodgkins lymphoma Hypocalcemia Hypotension (arterial) Hypothyroidism LBBB (left bundle branch block) Leukocytosis Low TSH level Lung infiltrate Multifocal pneumonia Multinodular thyroid Multinodular thyroid NICM (nonischemic cardiomyopathy) Osteoporosis Pacemaker Pulmonary embolism Recurrent pleural effusion on right Respiratory failure with hypoxia Rib fracture Rib pain Right hip pain Shortness of breath Sinus tachycardia Thrombocytopenia Vitamin D deficiency Surgical History H/O splenectomy History of appendectomy History of cardiac pacemaker History of endoscopy History of esophagogastroduodenoscopy (EGD) History of hip surgery Hx of colonoscopy S/P TAVR (transcatheter aortic valve replacement) Family History Family History Father Healthy adult male Mother Bladder cancer Social History Social History Household Members: Family Housing: House Are you a primary account executive healthcare to a significant other at home: No Do you presently have visiting nurse or other home services: No Alcohol intake: current Alcohol intake frequency: holidays/special occasions only Alcohol type: beer Patient Tobacco Use Status: Never used Tobacco Smoked in Last 30 Days: No e-Cigarette/Vaping Use: Never Used Second Hand Smoke Exposure: No Use of substances other than those prescribed or required for medical reasons: No Advance Directives: Yes Advance Directives on File: Yes Advance Directives Date on File: 05/09/22 service: Yes Current occupational status: employed Current occupational exposures/hazards: No Physical Exam ED Vital Signs: Vital Signs - 24 hr 08/01/22 19:44 08/01/22 22:22 Temperature 98.3 F 98.3 F Pulse Rate 95 96 Respiratory Rate 19 18 Blood Pressure 126/71 113/71 Pulse Oximetry 96 94 Oxygen Delivery Method Room Air Nasal Cannula Oxygen Flow Rate 2 BMI result Body Mass Index 21.2 Const Other: Appearance: Alert. Oriented X3. Anxious Eyes: Pupils equal, round and reactive to light. ENT: Pharynx normal. Neck: Normal inspection. Neck supple. No lymph nodes noted. No crepitus CVS: Normal heart rate and rhythm. Pulses normal. Normal S1 and S2 Respiratory: No respiratory distress. Breath sounds normal. No Wheezing. No rales Abdomen: Soft and nontender. No rigidity. No distention. Skin: S dry, slightly diaphoretic, slightly pale Extremities: No lower extremity edema. No Lacerations. No Rash, no lower extremity pain to palpation of the calves Neuro: Oriented X 3. No motor deficit. No sensory deficit. Moving all extremities. No slurred speech. CN 2 through 12 grossly intact Psych: Anxious, cooperative Course Course Course Narrative: -was also count within normal limits, chest x-ray shows small pleural effusion versus pleural thickening, pneumonia. -patient has had previously elevated D-dimers. Today is also elevated more than baseline. 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 At rest, patient's blood pressure 113/71, pulse 96, respirations 18, oxygen saturation 96% on room air -of note, patient has what seemed panic attack/choking episode/esophageal spasm. Patient was very agitated, coughing, however oxygen saturation remained in the mid 90s constantly -with reassurance, and nasal cannula for comfort, patient returned back to baseline. -lactic acid elevated, likely secondary to mild dehydration, patient vomited earlier today. Sepsis not suspected. Patient has history of heart failure, we will hydrate the patient very slowly. -patient's has been updated on the patient's condition. -I discussed with the patient that he will be admitted, patient agreeable. Medications Administered Discontinued Medications Generic Name Dose Route Start Last Admin Trade Name Leonor PRN Reason Stop Dose Admin Lorazepam 2 mg 08/01/22 21:42 08/01/22 21:46 Lorazepam 2 Mg/Ml Vial IVPUSH 08/01/22 21:43 2 mg ONCE ONE Administration Medical Decision Making Medical Decision Making MDM Narrative: CT scan for pulmonary embolism is pending. Dr. Arteaga will follow-up with the CTA, and informed Dr. Velazquez of the results. Of note, patient is somnolent. This is because they gave him 2 mg of IV Ativan for the panic attack that he had earlier today Differential Diagnosis Differential Diagnoses: The differential diagnosis associated with the presentation includes (Near syncope, pulmonary embolism, orthostatic hypotension, vasovagal hypotension) Admission/Observation Consideration of admission/observation: Escalation of care including admission/observation considered (Patient has significant cardiac history. We will go ahead and admit the patient.) Consult Healthcare Provider Management of the patient was discussed with: Hospitalist (I discussed the patient with Dr. Velazquez, patient to be admitted. CTA pending, which doctor Arteaga will f/u and discussed with Dr. Velazquez) Lab Data [facility] Lab Attestation statement: I reviewed the patient's lab results. 08/01/22 19:58 08/01/22 19:58 Labs: Lab Results 08/01/22 08/01/22 08/01/22 Range/Units 19:58 19:58 19:58 WBC 10.4 (4.8-10.8) X10*3/uL RBC 4.16 L (4.60-5.80) X10*6/uL Hgb 11.9 L (14.0-18.0) g/dl Hct 36.2 L (42.0-52.0) % MCV 87.0 (80.0-98.0) fL MCH 28.6 (27.0-33.0) pg MCHC 32.9 (31.0-36.0) g/dl RDW 15.5 (11.0-16.0) % Plt Count 400 (160-400) X10*3/uL MPV 9.1 L (9.4-12.4) fL Immature Gran % (Auto) 0.3 (0.0-0.4) % Neut % (Auto) 72.3 (45-73) % Lymph % (Auto) 13.6 L (20-40) % Austin % (Auto) 10.9 (2-11) % Eos % (Auto) 1.9 (0-4) % Baso % (Auto) 1.0 (0-2) % Lymph # (Auto) 1.4 (1.2-4.9) X10*3/uL Austin # (Auto) 1.1 (0.1-1.2) X10*3/uL Eos # (Auto) 0.2 (0.0-0.4) X10*3/uL Baso # (Auto) 0.1 (0.0-0.2) X10*3/uL Abs Immat Gran (auto) 0.03 (0.00-0.03) X10*3/uL Absolute Neuts (auto) 7.5 (2.0-8.3) x10*3/uL Absolute Nucleated RBC 0.000 (0.0-0.012) X10*3/uL Nucleated RBC % (auto) 0.0 (0.0-0.2) /100WBC PT (10.0-13.1) SEC INR (0.9-1.1) D-Dimer High Sensitivty NG/ML Sodium 138 (135-145) mmol/L Potassium 3.9 (3.3-5.1) mmol/L Chloride 100 (96-108) mmol/L Carbon Dioxide 28 (22-29) mmol/L Anion Gap 14 (12-20) BUN 20 H (9-16) mg/dL Creatinine 0.79 (0.5-1.4) mg/dL Estim Creat Clear Calc 98.1 Estimated GFR > 60 Random Glucose 112 (60-115) mg/dL Lactic Acid (0.5-2.0) mmol/L Calcium 8.8 D (8.4-10.2) mg/dL Magnesium (1.6-2.6) mg/dL Total Bilirubin (0.0-1.0) mg/dL Direct Bilirubin (0.0-0.5) mg/dL AST (5-37) U/L ALT (0-40) U/L Alkaline Phosphatase (39-117) U/L Troponin I High Sens 3.5 (<3.5-35.0) ng/L B-Natriuretic Peptide (<100) pg/mL Total Protein (6.5-8.0) g/dL Albumin (3.5-5.0) g/dL COVID-19 (SHANICE) (Negative) COVID-19 Clin Com 08/01/22 08/01/22 08/01/22 Range/Units 20:48 20:48 20:48 WBC (4.8-10.8) X10*3/uL RBC (4.60-5.80) X10*6/uL Hgb (14.0-18.0) g/dl Hct (42.0-52.0) % MCV (80.0-98.0) fL MCH (27.0-33.0) pg MCHC (31.0-36.0) g/dl RDW (11.0-16.0) % Plt Count (160-400) X10*3/uL MPV (9.4-12.4) fL Immature Gran % (Auto) (0.0-0.4) % Neut % (Auto) (45-73) % Lymph % (Auto) (20-40) % Austin % (Auto) (2-11) % Eos % (Auto) (0-4) % Baso % (Auto) (0-2) % Lymph # (Auto) (1.2-4.9) X10*3/uL Austin # (Auto) (0.1-1.2) X10*3/uL Eos # (Auto) (0.0-0.4) X10*3/uL Baso # (Auto) (0.0-0.2) X10*3/uL Abs Immat Gran (auto) (0.00-0.03) X10*3/uL Absolute Neuts (auto) (2.0-8.3) x10*3/uL Absolute Nucleated RBC (0.0-0.012) X10*3/uL Nucleated RBC % (auto) (0.0-0.2) /100WBC PT 14.6 H (10.0-13.1) SEC INR 1.3 H (0.9-1.1) D-Dimer High Sensitivty 1874 NG/ML Sodium (135-145) mmol/L Potassium (3.3-5.1) mmol/L Chloride (96-108) mmol/L Carbon Dioxide (22-29) mmol/L Anion Gap (12-20) BUN (9-16) mg/dL Creatinine (0.5-1.4) mg/dL Estim Creat Clear Calc Estimated GFR Random Glucose (60-115) mg/dL Lactic Acid (0.5-2.0) mmol/L Calcium (8.4-10.2) mg/dL Magnesium 2.0 (1.6-2.6) mg/dL Total Bilirubin 0.5 (0.0-1.0) mg/dL Direct Bilirubin < 0.2 (0.0-0.5) mg/dL AST 32 (5-37) U/L ALT 16 (0-40) U/L Alkaline Phosphatase 77 (39-117) U/L Troponin I High Sens (<3.5-35.0) ng/L B-Natriuretic Peptide (<100) pg/mL Total Protein 7.0 (6.5-8.0) g/dL Albumin 3.9 (3.5-5.0) g/dL COVID-19 (SHANICE) (Negative) COVID-19 Clin Com 08/01/22 08/01/22 08/01/22 Range/Units 20:48 20:48 20:53 WBC (4.8-10.8) X10*3/uL RBC (4.60-5.80) X10*6/uL Hgb (14.0-18.0) g/dl Hct (42.0-52.0) % MCV (80.0-98.0) fL MCH (27.0-33.0) pg MCHC (31.0-36.0) g/dl RDW (11.0-16.0) % Plt Count (160-400) X10*3/uL MPV (9.4-12.4) fL Immature Gran % (Auto) (0.0-0.4) % Neut % (Auto) (45-73) % Lymph % (Auto) (20-40) % Austin % (Auto) (2-11) % Eos % (Auto) (0-4) % Baso % (Auto) (0-2) % Lymph # (Auto) (1.2-4.9) X10*3/uL Austin # (Auto) (0.1-1.2) X10*3/uL Eos # (Auto) (0.0-0.4) X10*3/uL Baso # (Auto) (0.0-0.2) X10*3/uL Abs Immat Gran (auto) (0.00-0.03) X10*3/uL Absolute Neuts (auto) (2.0-8.3) x10*3/uL Absolute Nucleated RBC (0.0-0.012) X10*3/uL Nucleated RBC % (auto) (0.0-0.2) /100WBC PT (10.0-13.1) SEC INR (0.9-1.1) D-Dimer High Sensitivty NG/ML Sodium (135-145) mmol/L Potassium (3.3-5.1) mmol/L Chloride (96-108) mmol/L Carbon Dioxide (22-29) mmol/L Anion Gap (12-20) BUN (9-16) mg/dL Creatinine (0.5-1.4) mg/dL Estim Creat Clear Calc Estimated GFR Random Glucose (60-115) mg/dL Lactic Acid 2.4 H* (0.5-2.0) mmol/L Calcium (8.4-10.2) mg/dL Magnesium (1.6-2.6) mg/dL Total Bilirubin (0.0-1.0) mg/dL Direct Bilirubin (0.0-0.5) mg/dL AST (5-37) U/L ALT (0-40) U/L Alkaline Phosphatase (39-117) U/L Troponin I High Sens (<3.5-35.0) ng/L B-Natriuretic Peptide 73 (<100) pg/mL Total Protein (6.5-8.0) g/dL Albumin (3.5-5.0) g/dL COVID-19 (SHANICE) Negative (Negative) COVID-19 Clin Com See Note Independent Interpretation I performed an independent interpretation of an: EKG (Atrial sensed ventricular paced rhythm, heart rate 94, no acute ST segment elevation or depression, QTC 550) and Plain X-Ray (My interpretation of x-ray: Small right-sided pleural effusion, defibrillator present) Radiology Impression Discussion of test interpretation with radiology: I have reviewed the radiologist's reading. (Small right pleural effusion versus pleural thickening, unchanged. No airspace consolidation. No left pleural effusion or pneumothorax. Cardiomediastinal silhouette is unchanged. Left-sided biventricular AICD changes of prior TAVR redemonstrated. No evidence of pulmonary edema. Chronic/healed right ) Critical Care Time Critical Care Time Critical Care Time: Yes Total Critical Care Time: 60 Attestation: I have personally provided critical care time. Time includes review of lab data, radiology results, discussion with consultants, and monitoring for potential decompensation. Intervention performed as documented. Discharge Plan Discharge Clinical Impression: Near syncope Patient Disposition: Admitted As Inpatient
[2022-08-01 22:52] LABS: Reflex Lactate? Lactic Acid Added
--- NOTE | 2022-08-01 22:52 | PC.NURSE ---
[place] at [place] [employer] [place] arrived to the emergency room in a stretcher bed. Patient reports he was at ICU when he developed lightheadedness, dizziness, and short of breath. Patient states that he was gasping for air. Patient called for help and he was assisted immediately. Patient reports did not fall. Patient was helped to sit down and did not lose his consciousness. Patient denied chest pain or palpitations. Patient stated that he does not feel good. EKG obtained. Labs drawn per MD orders, IV line established in R forearm 20 G. Patient developed episode of chocking, coughing spell. Patient maintained stable O2 Sat in mid 90's during the episode. . Patient placed on supplemental O2 via NC 6 LPM, titrated down to 1 LPM NC with stable O2 Sat averaging around 97%. Patient reports feeling extremely anxious. Patient medicated with Lorazepam 2 mg IV push. VSS. CXR performed at bedside. Lisette, patient's spouse updated via phone call per patient's request.
[2022-08-01] MEDS: iohexoL 350 MG/ML 100 ML INFUS..BTL IV (22:56)
[2022-08-01 23:18] VITALS: BP 105/62; PULSE 93; RESP 18; TEMP 37.4; O2SAT 97
[2022-08-01 23:33] LABS: ~Lactic Acid-LAB USE ONLY 0.5 mmol/L (0.5-2.0)
[2022-08-01] MEDS: 0.9 % Sodium Chloride 1,000 ML 70 ML IVCONT (23:36)
[2022-08-02] VITALS (7 sets, daily range): BP systolic 95–115; BP diastolic 51–63; PULSE 78–93; RESP 12–21; TEMP 36–37.4; O2SAT 94–100; BMI 21.0
--- NOTE | 2022-08-02 00:03 | P.HPHOSP_ITS ---
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 Patient right now is very somnolent after receiving Ativan for management of what appear to be ?panic attack while in the ED. patient does open his eyes to verbal command as well as painful stimuli, but does not answer questions or participate in history. It appears the patient has a history of DVT from 2021, and was treated with anticoagulation for 5 months, but according to the information given to the ED physician by patient he was taken off the Eliquis by his press hand supervisor. On arrival to the ED patient hemodynamically stable no significant abnormal vitals Labs are significant for WBC count of 10.4, hemoglobin of 11.9, hematocrit 36.2 elevated D-dimer, lactic acid of 2.4 which improved after IV fluids Chest CT angiogram shows segmental filling defect in the superior right lower lobe suspicious for pulmonary emboli. As well as chronic unchanged pleural effusion Patient started on Eliquis who will be admitted for further management Review of Systems Review of Systems: Yes all other systems are reviewed and are negative [facility] Medical History Acute deep vein thrombosis of upper extremity Acute ITP Anemia Anemia Aortic stenosis, severe Bilateral pulmonary embolism Cardiac resynchronization therapy defibrillator (SUPERVISOR LENS GENERATING-D) in place Chronic systolic (congestive) heart failure Complete heart block Congestive heart failure COVID-19 COVID-19 vaccine series completed 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[place] syndrome Fever Fever of unknown origin HFrEF (heart failure with reduced ejection fraction) Hodgkins lymphoma Hypocalcemia Hypotension (arterial) Hypothyroidism LBBB (left bundle branch block) Leukocytosis Low TSH level Lung infiltrate Multifocal pneumonia Multinodular thyroid Multinodular thyroid NICM (nonischemic cardiomyopathy) Osteoporosis Pacemaker Pulmonary embolism Recurrent pleural effusion on right Respiratory failure with hypoxia Rib fracture Rib pain Right hip pain Shortness of breath Sinus tachycardia Thrombocytopenia Vitamin D deficiency Family History Father Healthy adult male Mother Bladder cancer Surgical History H/O splenectomy History of appendectomy History of cardiac pacemaker History of endoscopy History of esophagogastroduodenoscopy (EGD) History of hip surgery Hx of colonoscopy S/P TAVR (transcatheter aortic valve replacement) Social History Household Members: Family Housing: House Are you a primary home child care provider to a significant other at home: No Do you presently have visiting nurse or other home services: No Alcohol intake: current Alcohol intake frequency: holidays/special occasions only Alcohol type: beer Patient Tobacco Use Status: Never used Tobacco Smoked in Last 30 Days: No e-Cigarette/Vaping Use: Never Used Patient Interested in Nicotine Replacement: No Patient Given Instructions on How to Stop Smoking: No Second Hand Smoke Exposure: No Use of substances other than those prescribed or required for medical reasons: No Advance Directives: Yes Advance Directives Information Provided: No Advance Directives on File: Yes Advance Directives Date on File: 05/09/22 service: Yes Current occupational status: employed Current occupational exposures/hazards: No Meds Allergies Allergy/AdvReac Type Severity Reaction Status Date / Time No Known Allergies Allergy Verified 06/28/22 14:57 [No Known Allergies*] Active Medications: Current Medications Sodium Chloride (Ns) 1,000 mls @ 70 mls/hr IVCONT .[id number] ONE Stop: 08/02/22 13:06 Last Admin: 08/01/22 23:36 Dose: 70 mls/hr Pharmacy Consult (Consult Rx Perform Med Rec) 1 each MISCELLANE ONCE PRN PRN Reason: Consult order Home Medications Medication Instructions Recorded Confirmed Last Taken Type eplerenone 25 mg tablet (Inspra) 25 mg PO DAILY 11/05/21 08/01/22 08/01/22 History furosemide 20 mg tablet 40 mg PO DAILY@1700 06/28/22 08/01/22 07/31/22 History furosemide 20 mg tablet (Lasix) 60 mg PO DAILY 06/28/22 08/01/22 08/01/22 History aspirin 81 mg tablet,delayed 1 tab PO DAILY 08/01/22 08/01/22 08/01/22 History release Physical Exam Vital Signs and Narrative: Vital Signs: Last Vital Signs Temp 99.3 F 08/01/22 23:18 Pulse 93 08/01/22 23:18 Resp 18 08/01/22 23:18 BP 105/62 08/01/22 23:18 Pulse Ox 97 08/01/22 23:18 O2 Del Method 08/01/22 23:18 O2 Flow Rate 2 08/01/22 23:18 BMI result Body Mass Index 21.2 Const: Other: Somnolent, but wakes up on painful stimuli as well as loud verbal command Orientation/consciousness: patient oriented x3 Eyes: General: appearance normal, both eyes and all related structures Resp: Effort & Inspection: normal respiratory effort Auscultation: clear to auscultation bilaterally Cardio: Rate: regular rate Rhythm: regular rhythm GI: Palpation (GI): Soft to palpation Auscultation: normal bowel sounds Skin: General skin exam: no rashes or lesions noted Neuro: General: patient oriented x3 Cognition (Neuro): normal cognition Extrem: General: Yes normal to inspection and Yes no pedal edema Results Labs 08/01/22 19:58 08/01/22 19:58 Labs: Laboratory Results - last 24 hr 08/01/22 08/01/22 08/01/22 19:58 19:58 19:58 MCV 87.0 MCH 28.6 MCHC 32.9 RDW 15.5 Plt Count 400 MPV 9.1 L Immature Gran % (Auto) 0.3 Neut % (Auto) 72.3 Lymph % (Auto) 13.6 L Will % (Auto) 10.9 Eos % (Auto) 1.9 Baso % (Auto) 1.0 Lymph # (Auto) 1.4 Will # (Auto) 1.1 Eos # (Auto) 0.2 Baso # (Auto) 0.1 Abs Immat Gran (auto) 0.03 Absolute Neuts (auto) 7.5 Absolute Nucleated RBC 0.000 Nucleated RBC % (auto) 0.0 PT INR D-Dimer High Sensitivty Anion Gap 14 Estim Creat Clear Calc 98.1 Estimated GFR > 60 Random Glucose 112 Lactic Acid Lactic Acid F/U @ 2Hr Calcium 8.8 D Magnesium Total Bilirubin Direct Bilirubin AST ALT Alkaline Phosphatase Troponin I High Sens 3.5 B-Natriuretic Peptide Total Protein Albumin COVID-19 (SHANICE) COVID-19 Stage I Diagnostics Com 08/01/22 08/01/22 08/01/22 20:48 20:48 20:48 MCV MCH MCHC RDW Plt Count MPV Immature Gran % (Auto) Neut % (Auto) Lymph % (Auto) Will % (Auto) Eos % (Auto) Baso % (Auto) Lymph # (Auto) Will # (Auto) Eos # (Auto) Baso # (Auto) Abs Immat Gran (auto) Absolute Neuts (auto) Absolute Nucleated RBC Nucleated RBC % (auto) PT 14.6 H INR 1.3 H D-Dimer High Sensitivty 1874 Anion Gap Estim Creat Clear Calc Estimated GFR Random Glucose Lactic Acid Lactic Acid F/U @ 2Hr Calcium Magnesium 2.0 Total Bilirubin 0.5 Direct Bilirubin < 0.2 AST 32 ALT 16 Alkaline Phosphatase 77 Troponin I High Sens B-Natriuretic Peptide Total Protein 7.0 Albumin 3.9 COVID-19 (SHANICE) COVID-[facility] [employer] 08/01/22 08/01/22 08/01/22 20:48 20:48 20:53 MCV MCH MCHC RDW Plt Count MPV Immature Gran % (Auto) Neut % (Auto) Lymph % (Auto) Will % (Auto) Eos % (Auto) Baso % (Auto) Lymph # (Auto) Will # (Auto) Eos # (Auto) Baso # (Auto) Abs Immat Gran (auto) Absolute Neuts (auto) Absolute Nucleated RBC Nucleated RBC % (auto) PT INR D-Dimer High Sensitivty Anion Gap Estim Creat Clear Calc Estimated GFR Random Glucose Lactic Acid 2.4 H* Lactic Acid F/U @ 2Hr Calcium Magnesium Total Bilirubin Direct Bilirubin AST ALT Alkaline Phosphatase Troponin I High Sens B-Natriuretic Peptide 73 Total Protein Albumin COVID-19 (SHANICE) Negative [facility] [employer] See Note 08/01/22 23:17 MCV MCH MCHC RDW Plt Count MPV Immature Gran % (Auto) Neut % (Auto) Lymph % (Auto) Will % (Auto) Eos % (Auto) Baso % (Auto) Lymph # (Auto) Will # (Auto) Eos # (Auto) Baso # (Auto) Abs Immat Gran (auto) Absolute Neuts (auto) Absolute Nucleated RBC Nucleated RBC % (auto) PT INR D-Dimer High Sensitivty Anion Gap Estim Creat Clear Calc Estimated GFR Random Glucose Lactic Acid Lactic Acid F/U @ 2Hr 0.5 Calcium Magnesium Total Bilirubin Direct Bilirubin AST ALT Alkaline Phosphatase Troponin I High Sens B-Natriuretic Peptide Total Protein Albumin COVID-19 (SHANICE) COVID-19 Clin Com Imaging Radiologist's Impressions: Impressions Chest X-Ray 08/01/22 21:15 IMPRESSION: 1. Small right pleural effusion versus pleural thickening, unchanged. 2. No acute pulmonary process. Chest CTA 08/01/22 23:02 IMPRESSION: 1. Segmental filling defect in the superior right lower lobe, suspicious for pulmonary embolus. 2. Small pleural effusions, left greater than right. 3. Redemonstrated regions of paramediastinal opacity bilaterally, similar to prior. VTE: positive This critical result was discussed with Dr. Soni on 08/01/2022 11:21 PM, and it was ascertained that the content and urgency of the report was understood at the time of direct communication. Assessment and Plan (1) Pulmonary embolism: Status: Acute (2) Near syncope: Status: Acute (3) Shortness of breath: Status: Acute Plan 61-year-old male with extensive past medical history as mentioned above presents to the hospital with near syncope as well as shortness of breath found to have new pulmonary emboli # pulmonary embolism - history of DVT, was taken off Eliquis by press hand supervisor, now with PE, - will continue Eliquis 10 mg b.i.d., - consulted Hematology-Oncology for further recommendations and guidance # near-syncope - likely secondary to above - admit to telemetry # shortness of breath - no recorded hypoxia currently on 2 L of oxygen satting 94% - monitor respiratory status # nonischemic cardiomyopathy - does not appear to be in exacerbation - will continue home Lasix as well as Corlanor as well as eplerenone # hypothyroidism - continue levothyroxine DVT prophylaxis: Eliquis Time Spent With Patient Time: Total time managing care of this patient today ____ minutes. Quality Stroke Does the patient have a stroke diagnosis?: No VTE Prior VTE?: No VTE Risk Level:: Medical - moderate - high VTE Device Contraindication: Treatment Not Indicated VTE Drug Contraindication: N/A - Med Ordered
--- NOTE | 2022-08-02 00:37 | PC.NURSE ---
Dr. Velazquez at bedside, in presence of this ad copy writer MD explained to the patient that he has been admitted to [facility] for PE and near syncope. Patient verbalized understanding of admitting diagnosis and agreed to take Eliquis 10 m. Eliquis 10 mg administered per SEP.
[2022-08-02] MEDS: Apixaban 5 MG TABLET 10 MG PO ×3 (00:43→20:34)
--- NOTE | 2022-08-02 02:10 | PC.NURSE ---
Nurse to nurse report given to La[facility] [place]. Patient to be transported to [facility] in a stretcher bed, on continuos phototypesetting equipment monitor, supplemental O2 at 2 LPM NC.
[2022-08-02 04:06] LABS: Appearance Urine Clear; Color Urine Yellow; Glucose Urine UA Negative (Negative); Leukocyte Esterase Urine Negative (Negative); Nitrite Urine Negative (Negative); Specific Gravity - Urine >= 1.030 (1.005-1.025); Urine Blood Negative (Negative); Urine Ketones Negative (Negative); Urine Protein Negative (Neg-Trace)
[2022-08-02 06:54] LABS: Alanine Aminotransferase 10 U/L (0-40); Albumin Level 3.3 g/dL (3.5-5.0); Alkaline Phosphatase 69 U/L (39-117); Anion Gap 14 (12-20); Aspartate Amino Transferase 22 U/L (5-37); Bilirubin Total 0.6 mg/dL (0.0-1.0); Blood Urea Nitrogen 15 mg/dL (9-16); Calcium 8.6 mg/dL (8.4-10.2); Carbon Dioxide 28 mmol/L (22-29); Chloride 102 mmol/L (96-108); Creatinine Clr Calc Pharmacy 102.7; Estimated Glomerular Filt Rate > 60; Glucose Random 87 mg/dL (60-115); Potassium 4.1 mmol/L (3.3-5.1); Sodium 140 mmol/L (135-145); Total Protein 5.8 g/dL (6.5-8.0)
--- NOTE | 2022-08-02 08:33 | PM.HEMONCCN ---
Subjective - Subjective Chief complaint: Consult for: 1. Pulmonary embolism. 2. Hodgkin lymphoma. Patient: known to practice within the last 3 years Consult date: 08/02/22 Requesting Physician: Althea. Primary Care Provider: Unknown Physician Medical Summary: DIAGNOSIS: 1. Hodgkin Lymphoma. 2. P.E. HPI - Consult Narrative Reason for consult: Consult for: 1. Recurrent PE. 2. History of Hodgkin's lymphoma. 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 He then became very somnolent after receiving Ativan for management of what appear to be ?panic attack while in the ED. He did open his eyes to verbal command as well as painful stimuli, but did not answer questions or participate in history. He has a history of LUE DVT in 11/2021, and was treated with anticoagulation for 5 months. Was on the Eliquis. Repeat U/S on 03/22: Was negative. So the Eliquis so discontinued. On arrival to the ED patient hemodynamically stable no significant abnormal vitals. 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 Review of Systems Review of Systems: Yes all other systems are reviewed and are negative [facility] Medical History: with past medical history of upper extremity DVT, nonischemic cardiomyopathy, status post transcatheter aortic valve replacement, status post biventricular ICD, history of complete heart block, history of Hodgkin's lymphoma, history of [place] syndrome, hypothyroidism, and left bundle branch block Acute deep vein thrombosis of upper extremity Acute ITP Anemia Anemia Aortic stenosis, severe Bilateral pulmonary embolism Cardiac resynchronization therapy defibrillator (HOSPITALITY SERVICES MANAGER-D) in place Chronic systolic (congestive) heart failure Complete heart block Congestive heart failure COVID-19 COVID-19 vaccine series completed 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[place] syndrome Fever Fever of unknown origin HFrEF (heart failure with reduced ejection fraction) Hodgkins lymphoma Hypocalcemia Hypotension (arterial) Hypothyroidism LBBB (left bundle branch block) Leukocytosis Low TSH level Review of Systems - Constitutional Reports system reviewed and no additional complaints, except as documented - Eyes Reports system reviewed and no additional complaints, except as documented - ENT Reports system reviewed and no additional complaints, except as documented - Cardiovascular Reports system reviewed and no additional complaints, except as documented - Respiratory Reports no additional respiratory complaints - Gastrointestinal Reports system reviewed and no additional complaints, except as documented - Genitourinary Genitourinary: Reports no additional male genitourinary complaints - Musculoskeletal Reports system reviewed and no additional complaints, except as documented - Integumentary/Breasts Skin/Breast: Reports no additional skin complaints - Neurologic Reports system reviewed and no additional complaints, except as documented - Psychiatric Reports system reviewed and no additional complaints, except as documented - Endocrine Reports no additional endocrine complaints - Hematologic/Lymphatic Reports system reviewed and no additional complaints, except as documented - Allergic/Immunologic Reports system reviewed and no additional complaints, except as documented Oncology Screenings - ECOG Performance Status ECOG Performance Status: 2 [facility] Medical History: Medical History (Last Updated 08/05/22 @ 09:54 by Tia Stapleton PA-C) Anemia, chronic disease Aortic stenosis, severe Cardiac resynchronization therapy defibrillator (HOSPITALITY SERVICES MANAGER-D) in place Onset Date: ~2013 Cerebellar dysfunction Complete heart block 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HFrEF (heart failure with reduced ejection fraction) History of COVID-19 History of TIA (transient ischemic attack) Onset Date: ~12/2018 Hodgkin disease Onset Date: ~1989 Hypotension (arterial) Hypothyroidism Idiopathic thrombocytopenia LBBB (left bundle branch block) Multinodular thyroid NICM (nonischemic cardiomyopathy) Osteoporosis Pulmonary embolism Pulmonary embolism Vitamin D deficiency Family History: Family History (Last Reviewed 08/02/22 @ 06:54 by Bassem Velazquez MD) Father Healthy adult male Mother Bladder cancer Surgical History: Surgical History (Last Updated 08/05/22 @ 09:47 by Tia Stapleton PA-C) History of appendectomy Onset Date: ~1989 History of cardiac defibrillator placement Onset Date: ~2013 History of cardiac pacemaker Onset Date: ~2013 History of colonoscopy Onset Date: ~2020 History of esophagogastroduodenoscopy (EGD) Onset Date: ~2021 History of hip surgery Onset Date: ~2020 History of splenectomy Onset Date: ~1989 History of thoracentesis Onset Date: ~2019 History of transcatheter aortic valve replacement (TAVR) Onset Date: ~2020 S/P thyroid biopsy Onset Date: ~2021 Social History: Social History (Last Reviewed 08/02/22 @ 06:54 by Bassem Velazquez MD) Living Situation History: Household Members: Family Housing: House Are you a primary primary care md to a significant other at home: No Do you presently have visiting nurse or other home services: No Tobacco History: Patient Tobacco Use Status: Never used Tobacco e-Cigarette/Vaping Use: Never Used Second Hand Smoke Exposure: No Advance Directives: Advance Directives Date on File: 05/09/22 Occupation Assessmet: service: No Current occupational status: employed Current occupational exposures/hazards: No Second hand tobacco smoke exposure: No Home Medications and Allergies Current Medications: Current Medications Acetaminophen (Acetaminophen 325 Mg Tablet) 650 mg PO Q6H PRN PRN Reason: Pain, Mild (Pain Scale 1-3) Apixaban (Apixaban 5 Mg Tablet) 10 mg PO BID JERRELL Stop: 08/08/22 09:01 Last Admin: 08/02/22 00:43 Dose: 10 mg Aspirin (Aspirin Enteric Coated 81 Mg Tablet.Dr) 81 mg PO DAILY JERRELL Docusate Sodium (Docusate Sodium 100 Mg Capsule) 100 mg PO DAILY PRN PRN Reason: Constipation Furosemide (Furosemide 40 Mg Tablet) 40 mg PO DAILY@1700 JERRELL; Protocol Furosemide (Furosemide 20 Mg Tablet) 60 mg PO DAILY JERRELL; Protocol Sodium Chloride (Ns) 1,000 mls @ 70 mls/hr IVCONT .[id number] ONE Stop: 08/02/22 13:06 Last Admin: 08/01/22 23:36 Dose: 70 mls/hr Levothyroxine Sodium (Levothyroxine Sodium 150 Mcg Tablet) 150 mcg PO DAILY@0600 [facility] Non-Formulary Medication (Eplerenone [Inspra]) 25 mg PO DAILY JERRELL Non-Formulary Medication (Ivabradine [Corlanor]) 5 mg PO BIDWM JERRELL Ondansetron HCl (Ondansetron Hcl 4 Mg/2 Ml Vial) 4 mg IVPUSH Q8H PRN PRN Reason: Nausea and Vomiting Pharmacy Consult (Consult Rx Perform Med Rec) 1 each MISCELLANE ONCE PRN PRN Reason: Consult order Sodium Chloride (0.9 % Sodium Chloride Flush 3 Ml Syringe) 3 ml IVFLUSH QSHIFT JERRELL Last Admin: 08/02/22 00:13 Dose: Not Given Home Medications Medication Instructions Recorded Confirmed Type eplerenone 25 mg tablet (Inspra) 25 mg PO DAILY 11/05/21 08/01/22 History furosemide 20 mg tablet 40 mg PO DAILY@1700 06/28/22 08/01/22 History furosemide 20 mg tablet (Lasix) 60 mg PO DAILY 06/28/22 08/01/22 History aspirin 81 mg tablet,delayed 1 tab PO DAILY 08/01/22 08/01/22 History release Allergies Allergy/AdvReac Type Severity Reaction Status Date / Time No Known Allergies Allergy Verified 06/28/22 14:57 [No Known Allergies*] Physical Exam Vital signs: Vital Signs Temp 96.8 F 08/02/22 07:26 Pulse 85 08/02/22 07:26 Resp 12 08/02/22 07:26 BP 109/58 L 08/02/22 07:26 Pulse Ox 98 08/02/22 07:26 O2 Del Method 08/02/22 07:26 O2 Flow Rate 2 08/02/22 07:26 Intake & Output 08/01/22 08/02/22 08/02/22 18:59 06:59 18:59 Output Total 200 / 200 Balance -200 / -200 Urine Output (Average ml/kg/hr) 0.24 Output: Output, Urine Amount 200 / 200 Other: Weight 68.5 kg Weight in Grams 35251 Weight 68.5 kg - Constitutional Present: mild distress, moderate distress - Routine HEENT Exam Head: Present: normal inspection Eye: Present: normal appearance ENT: Present: mucous membranes moist - Routine Neck Exam Present: supple - Routine Respiratory Exam Present: decreased breath sounds - Routine Cardiovascular Exam Cardiovascular: Present: RRR, S1, S2 - Routine Abdominal Exam Present: normal bowel sounds, nontender - Routine Extremities Exam Present: nontender - Routine Skin Exam Present: intact - Routine Neurological Exam Present: alert, oriented X3, moving all extremities - Detailed Neurological Exam: Coma Scale Eye Opening: Spontaneous (4) Verbal Response: Oriented (5) Motor Response: Obeys commands (6) [place] Coma Scale Total: 15 - Routine Psychiatric Exam Present: normal affect Hem/Onc Consult Result - Labs CBC & Chem 7: 08/01/22 19:58 08/02/22 05:38 Labs: Short CBC 08/01/22 Range/Units 19:58 WBC 10.4 (4.8-10.8) X10*3/uL Hgb 11.9 L (14.0-18.0) g/dl Hct 36.2 L (42.0-52.0) % Plt Count 400 (160-400) X10*3/uL BMP 08/01/22 08/02/22 19:58 05:38 Sodium 138 140 Potassium 3.9 4.1 Chloride 100 102 Carbon Dioxide 28 28 BUN 20 H 15 Creatinine 0.79 0.75 Calcium 8.8 D 8.6 Liver Function 08/01/22 08/02/22 Range/Units 20:48 05:38 Total Bilirubin 0.5 0.6 (0.0-1.0) mg/dL Direct Bilirubin < 0.2 (0.0-0.5) mg/dL AST 32 22 (5-37) U/L ALT 16 10 (0-40) U/L Alkaline Phosphatase 77 69 (39-117) U/L Albumin 3.9 3.3 L (3.5-5.0) g/dL Urine 08/02/22 Range/Units 03:20 Urine Color Yellow Urine Appearance Clear Urine pH 6.0 (5.0-9.0) Ur Specific [place] >= 1.030 H (1.005-1.025) Urine Protein Negative (Neg-Trace) mg/dL Urine Glucose (UA) Negative (Negative) mg/dL Assessment and Plan Patient Active problem list reviewed?: Yes (1) Pulmonary embolism Problem details: (PE: 10/2020; 07/2022) Status: Acute Assessment and plan: 61-year-old gentleman with history of Hodgkin's lymphoma, Al[place] syndrome and previous history of DVT, presented with shortness of breath and near-syncope. CTA of the chest revealed: 1. Segmental filling defect in the superior right lower lobe, suspicious for pulmonary embolus. 2. Small pleural effusions, left greater than right. 3. Redemonstrated regions of paramediastinal opacity bilaterally, similar to prior. VTE: positive He remains hemodynamically stable. He has been restarted on Eliquis. PLAN: He will need it long-term to this being his 2nd episode of thromboembolism. Will continue to monitor. Thanks, CC: (2) Hodgkin disease Problem details: (dx 11/1989 Lt supraclavicular node, recurrence 1994 Rt inguinal, - s/p chemo ABVD & XRT) Status: Acute Assessment and plan: 61 year-old gentleman with history of Hodgkin's Lymphoma diagnosed in 1989. He had disease recurrence in 1994, for which he had systemic chemotherapy until April 1996. He is clinically in remission and doing fairly well, for a long time. He was recently admitted with ITP. He has a Normal exam and blood work. LDH: 226. He had a CTA of the chest done on 03/06/2022 which revealed: 1. Regions of heterogeneous opacity in the paramediastinal mid to upper lungs. Correlation with patient history is recommended, as this appearance can be seen as sequelae of prior mediastinal radiation therapy. Post inflammatory/infectious scarring is also a possibility. No additional significant consolidation identified. 2. Small pleural effusions, left greater than right. Redemonstrated pleural thickening at the right base with adjacent atelectasis. 3. Pericardial calcification, without significant pericardial effusion. - Time Spent With Patient Time Spent with Patient (in minutes): 30
[2022-08-02] MEDS: Aspirin Enteric Coated 81 MG TABLET.DR PO (08:49)
[2022-08-02] MEDS: Furosemide 20 MG TABLET 60 MG PO (08:49)
[2022-08-02] MEDS: Levothyroxine Sodium 150 MCG TABLET PO (08:49)
[2022-08-02] MEDS: 0.9 % Sodium Chloride Flush 3 ML SYRINGE IVFLUSH ×3 (08:51→22:35)
[2022-08-02] MEDS: IVABRADINE 5 MG 5 EACH PO ×2 (10:31→16:42)
--- NOTE | 2022-08-02 11:50 | PM.EVENT ---
Event Note Date of Service: 08/02/22 Event Note: Chart reviewed patient examined. Physical exam unchanged since admission. Appreciate Oncology input. Will continue Eliquis and DC aspirin. Will titrate O2 and re-evaluate 08/03/2022 Time Spent With Patient Time: Total time managing care of this patient today ____ minutes.
--- NOTE | 2022-08-02 12:55 | MHC.CM.PN ---
OLSON Male 61 DX PE He lives w and kids. He is independent and works. He reports using a walker @ home PRN. DP home self care. Patients will provide transportation home. VAXX x 3, HCP on file.
[2022-08-02] MEDS: Furosemide 40 MG TABLET PO (16:42)
[2022-08-02] MEDS: Acetaminophen 325 MG TABLET 650 MG PO (21:03)
[2022-08-03 04:00] VITALS: BP 117/57; PULSE 79; RESP 18; TEMP 36.5; O2SAT 97
[2022-08-03] MEDS: Levothyroxine Sodium 150 MCG TABLET PO (05:09)
[2022-08-03 07:24] VITALS: BP 104/60; PULSE 80; RESP 12; TEMP 36.2; O2SAT 100
[2022-08-03] MEDS: Apixaban 5 MG TABLET 10 MG PO (08:42)
[2022-08-03] MEDS: IVABRADINE 5 MG 5 EACH PO (08:43)
[2022-08-03] MEDS: 0.9 % Sodium Chloride Flush 3 ML SYRINGE IVFLUSH (08:51)
[2022-08-03 09:33] VITALS: BP 98/58
[2022-08-03 10:30] VITALS: O2SAT 98
[2022-08-03 10:57] VITALS: BP 104/61; PULSE 85; RESP 12; TEMP 36.6; O2SAT 98
--- NOTE | 2022-08-03 11:21 | PM.DS ---
DS: Providers Provider Date of Service: 08/03/22 Date of admission: 08/01/22 23:55 Date of discharge: 08/03/22 Primary care physician: Yesica Kay MD Consults: 08/01/22 23:55 Consult to Hematology / Oncology Routine Consulting Provider: Britany Merchant Reason for consultation: recurrent PE Has provider been notified: No DS: Diagnosis Discharge Diagnosis (1) Pulmonary embolism: Status: Acute (2) Hodgkin disease: Status: Acute DS: Summary Hospital Course Hospital Course: 61-year-old male with past medical history of DVT, nonischemic cardiomyopathy, status post transcatheter aortic valve replacement, status post biventricular ICD, history of upper extremity DVT, history of complete heart block, history of Hodgkin's lymphoma, history of Mountain syndrome, hypothyroidism, and left bundle branch block presents the hospital while delivering medicine to ICU and feeling lightheaded, as well as short of breath and near syncope.? Patient right now is very somnolent after receiving Ativan for management of what appear to be ?panic attack while in the ED. patient does open his eyes to verbal command as well as painful stimuli, but does not answer questions or participate in history. It appears the patient has a history of DVT from 2021, and was treated with anticoagulation for 5 months, but according to the information given to the ED physician by patient he was taken off the Eliquis by his pattern hanger. On arrival to the ED patient hemodynamically stable no significant abnormal vitals Labs are significant for WBC count of 10.4, hemoglobin of 11.9, hematocrit 36.2 elevated D-dimer, lactic acid of 2.4 which improved after IV fluids Chest CT angiogram shows segmental filling defect in the superior right lower lobe suspicious for pulmonary emboli.? As well as chronic unchanged pleural effusion Patient started on Eliquis who will be admitted for further management Hospital Course Patient admitted to telemetry and remained hemodynamically stable. O2 was weaned to off and patient ambulatory in room. Seen by Hematology-Oncology who recommended lifelong oral anticoagulation. He will be sent home on Eliquis 10 mg b.i.d. for 9 days and then start Eliquis 5 mg daily lifelong. He will follow-up with Hematology-Oncology in 1-2 weeks Time Spent with Patient Time attestation: Total time managing care of this patient today ____ minutes. Discharge coordination time: Greater than 30 minutes Quality: Safe Use of Opioids Does Pt have an Active Cancer Diagnosis on the Problem List?: No Quality: Stroke Does the patient have a stroke diagnosis?: No Physical Exam Vital Signs: Vital Signs: Last Vital Signs Temp 97.9 F 08/03/22 10:57 Pulse 85 08/03/22 10:57 Resp 12 08/03/22 10:57 BP 104/61 08/03/22 10:57 Pulse Ox 98 08/03/22 10:57 O2 Del Method 08/03/22 10:57 O2 Flow Rate 2 08/03/22 07:24 BMI result Body Mass Index 21.0 Const: Other: Awake alert no acute distress Resp: Other: Clear to auscultation bilaterally no rales rhonchi or wheezes Cardio: Other: No S4; positive S1-S2; no S3 murmurs rubs or gallops GI: Other: Soft nontender nondistended normoactive bowel sounds Extrem: Other: No edema bilaterally DS: Data Data Completed and Pending Completed studies during hospitalization [Text1]: Procedures Control Bleeding in Gastrointestinal Tract, Via Natural or Artificial Opening Endoscopic (11/18/21) Drainage of Bone Marrow, Percutaneous Approach, Diagnostic (09/20/21) Excision of Stomach, Pylorus, Via Natural or Artificial Opening Endoscopic, Diagnostic (01/13/21) Extraction of Iliac Bone Marrow, Percutaneous Approach, Diagnostic (09/20/21) Inspection of Lower Intestinal Tract, Via Natural or Artificial Opening Endoscopic (01/13/21) Inspection of Upper Intestinal Tract, Via Natural or Artificial Opening Endoscopic (11/18/21) Introduction of Other Therapeutic Substance into Upper GI, Via Natural or Artificial Opening Endoscopic (11/18/21) Reposition Left Upper Femur with Internal Fixation Device, Percutaneous Approach (01/25/21) Transfusion of Nonautologous Red Blood Cells into Peripheral Vein, Percutaneous Approach (12/01/21) Labs on day of discharge: Preliminary micro results at discharge 08/01/22 20:53 Blood Culture - Preliminary Blood - Venous No growth after 24 hours. 08/01/22 20:53 Blood Culture - Preliminary Blood - Venous No growth after 24 hours. Discharge Plan Discharge Anticipated Discharge Date/Time: 08/03/22 11:10 Patient Disposition: Home, Self-Care Referrals: Yesica Burden MD [Primary Care Provider] - 1 Week Discharge Medications: New Eliquis 5 mg Tablet 10 mg PO BID Qty: 36 0RF Continued levothyroxine 150 mcg tablet 150 mcg PO DAILY 30 Days Qty: 30 3RF eplerenone [Inspra] 25 mg tablet 25 mg PO DAILY furosemide [Lasix] 20 mg tablet 60 mg PO DAILY aspirin 81 mg tablet,delayed release (DR/EC) 1 tab PO DAILY furosemide 20 mg tablet 40 mg PO DAILY@1700 Rx Instructions: TAKE 3 TABLETS EVERY MORNING and TAKE 2 TABLETS AT 5 PM; TOTAL DAILY DOSE 100MG Corlanor 5 mg tablet 5 mg PO BIDWM Qty: 180 3RF Rx Instructions: must administer with a meal/food Discharge Orders: Discharge Order (Routine); Ordered 08/03/22 Ordered By: Isaías Wilson Diet: Advance to usual diet Activity on Discharge: As tolerated Stand Alone Forms: Patient Portal Discharge page Care Plan Goals: Continue all pre-hospital medicines as ordered Health Concerns: Increased activity as tolerated Plan of Treatment: Will need to take to Eliquis twice a day for 9 more days then 1 Eliquis b.i.d. lifelong Assessment: See discharge summary
--- NOTE | 2022-08-03 11:53 | MHC.CM.PN ---
Rola 08/02/22 Male 61 DX PE He is discharged to home today self care. He was given the Eliquis Coupon. AC therapy management education provided. Patients will provide transportation home.
== END 2022-08-03 13:35 | disposition home or self-care (01) ==
LOC: HO.ED 22:44 → HO.EDOVER 08-02 00:46 → HO.IMC 08-02 01:43
PROVIDERS: Admitting Provider Internal Medicine; Emergency Provider Emergency Medicine; PCP Internal Medicine; Visit Provider Hospitalist
DX: I26.99 Other pulmonary embolism without acute cor pulmonale (principal); J90 Pleural effusion, not elsewhere classified; R55 Syncope and collapse; R06.02 Shortness of breath; F41.9 Anxiety disorder, unspecified; Z20.822 Contact with and (suspected) exposure to COVID-19; I50.22 Chronic systolic (congestive) heart failure; C81.90 Hodgkin lymphoma, unspecified, unspecified site; D64.9 Anemia, unspecified; Q85.82 Other Cowden syndrome; Z86.718 Personal history of other venous thrombosis and embolism; Z86.711 Personal history of pulmonary embolism; Z95.2 Presence of prosthetic heart valve; Z95.0 Presence of cardiac pacemaker
CPT/HCPCS: 36415; 71045; 71275; 80048; 80053; 80076; 81003; 83605; 83735; 83880; 84484; 85025; 85379; 85610; 87040; 87502; 87635; 93005; 96361; 96374; 96375; 99222; 99285; J2060; Q9967

== ENCOUNTER 2022-09-13 14:26 | Observation (INO) | payer OTHER, SELFPAY ==
[2022-09-13] VITALS (8 sets, daily range): BP systolic 95–134; BP diastolic 52–85; PULSE 84–101; RESP 16–18; TEMP 36.9–37.6; O2SAT 97–99; BMI 20.3
--- NOTE | ~2022-09-13 | CT_ITS ---
CT SOFT TISSUE NECK WITH CONTRAST CLINICAL INFORMATION: Left arm tingling. COMPARISON: None available. TECHNIQUE: Following the intravenous administration of 100 mL of Omnipaque 350 intravenous contrast, helical imaging was performed in the axial plane with generation of coronal and sagittal reformatted images. This CT examination was performed using dose optimization techniques as appropriate, variously including the following: *Automated exposure control *Adjustment of mA and/or kV according to patient size (this includes techniques or standardized protocols for targeted exams where dose is matched to indication/reason for exam; i.e. extremities or head) *Use of iterative reconstruction technique FINDINGS: The orbital soft tissues, the parotid glands, and the submandibular glands are normal. The thyroid gland is normal. Atherosclerotic calcification involving the carotid bifurcations bilaterally. No cervical lymphadenopathy. No suspicious superficial mucosal space lesions. Partially imaged small bilateral pleural effusions. Probable postradiation/posttreatment changes within the medial lungs bilaterally. Partially imaged soft tissue within the right hilum, likely similar to recent chest CT exams. A 1.7 cm lobulated heterogeneous density structure within the left suprascapular soft tissues on image 104 of series 2 is stable when compared to multiple prior studies. Chronic upper endplate compression deformity at T3 is stable. Atrophic degenerative changes at the atlantodental interval. Mild cervical spondylosis. Left pectoral pacemaker. Large left mastoid effusion and near complete opacification of the left middle ear cavity. Moderate mucosal thickening within the right maxillary sinus and involving the ethmoid air cells bilaterally. CT/CT soft tissue neck w IV con IMPRESSION: - No significant soft tissue findings are appreciated within the neck. - Partially imaged small bilateral pleural effusions. Probable postradiation/posttreatment changes within the medial lungs bilaterally. Partially imaged soft tissue within the right hilum, likely similar to recent chest CT exams. - A 1.7 cm lobulated heterogeneous density structure within the left suprascapular soft tissues on image 104 of series 2 is stable when compared to multiple prior studies. - Large left mastoid effusion and near complete opacification of the left middle ear cavity. - Moderate mucosal thickening within the right maxillary sinus and involving the ethmoid air cells bilaterally.
--- NOTE | ~2022-09-13 | CT_ITS ---
EXAMINATION: CT HEAD WITHOUT CONTRAST CLINICAL INFORMATION: Left arm tingling and numbness. COMPARISON: CT scan of the brain dated 05/08/2022. TECHNIQUE: Contiguous axial imaging was performed from the skull base to vertex without intravenous administration of contrast. Coronal and sagittal reformatted images were obtained. This CT examination was performed using dose optimization techniques as appropriate, variously including the following: *Automated exposure control *Adjustment of mA and/or kV according to patient size (this includes techniques or standardized protocols for targeted exams where dose is matched to indication/reason for exam; i.e. extremities or head) *Use of iterative reconstruction technique DLP: 829 mGy-cm FINDINGS: The cortical sulci are normal. The lateral ventricles are symmetrical. The third and fourth ventricles are in their normal midline position. The basilar and prepontine cisterns are unremarkable. There is no acute intra or extracerebral abnormality. There is no mass effect or midline shift. Sections through the bony calvarium are unremarkable. The paranasal sinuses show mild mucosal thickening in the bilateral ethmoid and right maxillary sinuses. Small air-fluid level in the right maxillary sinus. Hypoaeration of the mastoid processes bilaterally without associated abnormality. CT/CT head/brain wo IV con IMPRESSION: 1. No acute intracranial pathology. 2. Mild inflammatory changes in the paranasal sinuses.
--- NOTE | ~2022-09-13 | US_ITS ---
EXAMINATION: NONINVASIVE ASSESSMENT OF THE ARTERIES OF THE LEFT UPPER EXTREMITIES CLINICAL INFORMATION: Tingling sensation, poor pulses COMPARISON: None TECHNIQUE: duplex Doppler techniques with wave form analysis and measurement of velocities in the left upper extremity. FINDINGS: Left upper extremity peak systolic velocities (cm/s): Medial subclavian artery: 106 Mid subclavian artery: 56 Lateral subclavian artery: 56 Axillary artery: 60 Proximal brachial artery: 65 Mid brachial artery: 73 Distal brachial artery: 64 Mid radial artery: 57 Mid ulnar artery: 64 No significant atherosclerotic disease. Multiphasic flow throughout the left upper extremity. US/US arterial duplex UE LT IMPRESSION: No significant stenosis throughout the left upper extremity.
--- NOTE | 2022-09-13 14:33 | ECG_ITS ---
Test Reason : Left arm numbness Blood Pressure : / mmHG Vent. Rate : 093 BPM Atrial Rate : 093 BPM P-R Int : 148 ms QRS Dur : 154 ms QT Int : 428 ms P-R-T Axes : 060 253 072 degrees QTc Int : 532 ms Atrial-sensed ventricular-paced rhythm Abnormal ECG When compared with ECG of 01-AUG-2022 19:42, Vent. rate has decreased BY 6 BPM Referred By: Generic ED Physician Electronically Signed By:IVANNA ORDONEZ
[2022-09-13 14:50] LABS: MANUAL DIFF FLAG NO
[2022-09-13 14:52] LABS: Basophils Absolute Auto 0.1 X10*3/uL (0.0-0.2); Basophils Percent Auto 0.7 % (0-2); Eosinophils Absolute Auto 0.1 X10*3/uL (0.0-0.4); Eosinophils Percent Auto 1.2 % (0-4); Hematocrit 30.1 % (42.0-52.0); Hemoglobin 9.8 g/dl (14.0-18.0); Imm Gran Abs Auto 0.05 X10*3/uL (0.00-0.03); Imm Gran Pct Auto 0.4 % (0.0-0.4); Lymphocytes Absolute Auto 1.8 X10*3/uL (1.2-4.9); Lymphocytes Percent Auto 15.6 % (20-40); Mean Corpuscular HGB Conc 32.6 g/dl (31.0-36.0); Mean Corpuscular Hemoglobin 28.7 pg (27.0-33.0); Mean Platelet Volume 9.6 fL (9.4-12.4); Monocytes Absolute Auto 1.3 X10*3/uL (0.1-1.2); Monocytes Percent Auto 11.1 % (2-11); Neutrophils Absolute Auto 8.4 x10*3/uL (2.0-8.3); Platelet Count 410 X10*3/uL (160-400); Red Blood Count 3.42 X10*6/uL (4.60-5.80); Red Cell Distribution Width 14.9 % (11.0-16.0); White Blood Count 11.8 X10*3/uL (4.8-10.8)
--- NOTE | 2022-09-13 14:57 | ED.NEUROSD ---
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 He denies any falls or injuries he denies having this problem in the past denies any weakness he denies headache chest pain nausea vomiting or diarrhea. Of note the patient did have a P and started Eliquis proximally month and half ago. Patient denies any other new medications her issues. Patient has any fevers or cough. Patient is adamant he has never had these symptoms in the past. Related Data Home Medications Medication Instructions Recorded Confirmed furosemide 20 mg tablet 40 mg PO DAILY@1700 06/28/22 09/13/22 furosemide 20 mg tablet (Lasix) 60 mg PO DAILY 06/28/22 09/13/22 levothyroxine 150 mcg tablet 150 mcg PO DAILY@0600 09/13/22 09/13/22 Previous Rx's Medication Instructions Recorded ivabradine 5 mg tablet (Corlanor) 5 mg PO BIDWM #180 tabs 12/14/21 apixaban 5 mg tablet (Eliquis) 5 mg PO BID #180 tabs 08/04/22 eplerenone 25 mg tablet (Inspra) 25 mg PO DAILY #90 tabs 08/26/22 Allergies Allergy/AdvReac Type Severity Reaction Status Date / Time No Known Allergies Allergy Verified 06/28/22 14:57 [No Known Allergies*] Review of Systems Review of Systems: Review of systems: General: Patient denies any fever chills recent illness or falls Musculoskeletal: Denies back pain or body aches or other injuries HEENT: denies headache, runny nose, ear pain Respiratory: denies shortness of breath, cough Cardiovascular: no chest pain or palpitations : denies dysuria, frequency Abdomen: no nausea vomiting denies abdominal pain Extremities: no swelling, no pain Skin: no diaphoresis Yes all other systems are reviewed and are negative PMFSH Past Medical History Medical History Anemia, chronic disease Aortic stenosis, severe Cardiac resynchronization therapy defibrillator ([employer]) in place (~2013) Cerebellar dysfunction Complete heart block Dougherty syndrome HFrEF (heart failure with reduced ejection fraction) History of COVID-19 History of TIA (transient ischemic attack) (~12/2018) Hodgkin disease (~1989) Hypotension (arterial) Hypothyroidism Idiopathic thrombocytopenia LBBB (left bundle branch block) Multinodular thyroid NICM (nonischemic cardiomyopathy) Osteoporosis Pulmonary embolism Pulmonary embolism Shortness of breath Vitamin D deficiency Surgical History History of appendectomy (~1989) History of cardiac defibrillator placement (~2013) History of cardiac pacemaker (~2013) History of colonoscopy (~2020) History of esophagogastroduodenoscopy (EGD) (~2021) History of hip surgery (~2020) History of splenectomy (~1989) History of thoracentesis (~2019) History of transcatheter aortic valve replacement (TAVR) (~2020) S/P thyroid biopsy (~2021) Family History Family History Father Healthy adult male Mother Bladder cancer Social History Social History Household Members: Family Housing: House Are you a primary hospice care transitions coordinator to a significant other at home: No Do you presently have visiting nurse or other home services: No Alcohol intake: current Alcohol intake frequency: holidays/special occasions only Alcohol type: beer Patient Tobacco Use Status: Never used Tobacco Smoked in Last 30 Days: No e-Cigarette/Vaping Use: Never Used Second Hand Smoke Exposure: No Use of substances other than those prescribed or required for medical reasons: No Advance Directives: Yes Advance Directives on File: Yes Advance Directives Date on File: 05/09/22 Nutrition Risks: No Nutritional Risk service: No Current occupational status: employed Current occupational exposures/hazards: No Physical Exam Vital Signs: Vital Signs: Last Vital Signs Temp 98.5 F 09/13/22 19:44 Pulse 86 09/13/22 19:44 Resp 18 09/13/22 19:44 BP 107/60 09/13/22 19:44 Pulse Ox 98 09/13/22 19:44 O2 Del Method 09/13/22 18:39 BMI result Body Mass Index 20.3 Neurological exam: CN II- XII tested. Patient is alert and oriented to person place and time. Patient has no dysphagia or dysarthia, denies good vision in all four vision ibanez no nystagmus on exam, good strength to upper and lower extremities with normal reflexes to brachioradialis, wrist, patella and achilles. Negative romberg, good finger to nose and heel to kwan. General: Well-appearing well-nourished in no signs of distress HEENT: Normocephalic atraumatic Neck: No signs of JVD, no masses no tenderness or lymphadenopathy Cardiovascular: Regular rate and rhythm Respiratory: Clear to auscultation bilaterally Abdomen: Soft nontender no masses Extremities: Normal pedal pulses no signs of edema Skin: Dry warm no rashes Back: No tenderness full ROM Medications Administered Discontinued Medications Generic Name Dose Route Start Last Admin Trade Name Freq PRN Reason Stop Dose Admin Sodium Chloride 1,000 mls @ 999 mls/hr 09/13/22 15:00 09/13/22 17:00 Ns IV 09/13/22 16:00 Infused .Q1H1M JERRELL Infusion Medical Decision Making Medical Decision Making [facility] Narrative: Patient has no signs of a large vessel occlusion with purely sensory left arm tingling I will check labs I will give patient for CT scan patient is on Eliquis and reassess. I did speak with hospitalist and Neuro FIELD SALES CONSULTANT about the patient we agreed the patient would benefits from admission and monitoring. Differential Diagnosis Differential Diagnoses: The differential diagnosis associated with the presentation includes CVU low elbow is unlikely as the patient only has purely since her symptoms head bleed electrode abnormality or dehydration. Admission/Observation Consideration of admission/observation: Escalation of care including admission/observation considered Consult Healthcare Provider Management of the patient was discussed with: Hospitalist and Library Services Coordinator Lab Data [facility] Lab Attestation statement: I reviewed the patient's lab results. 09/13/22 14:42 09/13/22 14:42 Labs: Lab Results 09/13/22 09/13/22 09/13/22 Range/Units 14:42 14:42 14:42 WBC 11.8 H (4.8-10.8) X10*3/uL RBC 3.42 L (4.60-5.80) X10*6/uL Hgb 9.8 L (14.0-18.0) g/dl Hct 30.1 L (42.0-52.0) % MCV 88.0 (80.0-98.0) fL MCH 28.7 (27.0-33.0) pg MCHC 32.6 (31.0-36.0) g/dl RDW 14.9 (11.0-16.0) % Plt Count 410 H (160-400) X10*3/uL MPV 9.6 (9.4-12.4) fL Immature Gran % (Auto) 0.4 (0.0-0.4) % Neut % (Auto) 71.0 (45-73) % Lymph % (Auto) 15.6 L (20-40) % [place] % (Auto) 11.1 H (2-11) % Eos % (Auto) 1.2 (0-4) % Baso % (Auto) 0.7 (0-2) % Lymph # (Auto) 1.8 (1.2-4.9) X10*3/uL [place] # (Auto) 1.3 H (0.1-1.2) X10*3/uL Eos # (Auto) 0.1 (0.0-0.4) X10*3/uL Baso # (Auto) 0.1 (0.0-0.2) X10*3/uL Abs Immat Gran (auto) 0.05 H (0.00-0.03) X10*3/uL Absolute Neuts (auto) 8.4 H (2.0-8.3) x10*3/uL Absolute Nucleated RBC 0.000 (0.0-0.012) X10*3/uL Nucleated RBC % (auto) 0.0 (0.0-0.2) /100WBC PT (10.0-13.1) SEC INR (0.9-1.1) Sodium 138 (135-145) mmol/L Potassium 3.5 (3.3-5.1) mmol/L Chloride 101 (96-108) mmol/L Carbon Dioxide 27 (22-29) mmol/L Anion Gap 14 (12-20) BUN 18 H (9-16) mg/dL Creatinine 0.81 (0.5-1.4) mg/dL Estim Creat Clear Calc 91.9 Estimated GFR > 60 Random Glucose 114 (60-115) mg/dL Calcium 8.4 (8.4-10.2) mg/dL Troponin I High Sens 7.6 D (<3.5-35.0) ng/L COVID-19 (SHANICE) (Negative) COVID-19 Clin Com 09/13/22 09/13/22 Range/Units 14:42 18:07 WBC (4.8-10.8) X10*3/uL RBC (4.60-5.80) X10*6/uL Hgb (14.0-18.0) g/dl Hct (42.0-52.0) % MCV (80.0-98.0) fL MCH (27.0-33.0) pg MCHC (31.0-36.0) g/dl RDW (11.0-16.0) % Plt Count (160-400) X10*3/uL MPV (9.4-12.4) fL Immature Gran % (Auto) (0.0-0.4) % Neut % (Auto) (45-73) % Lymph % (Auto) (20-40) % [place] % (Auto) (2-11) % Eos % (Auto) (0-4) % Baso % (Auto) (0-2) % Lymph # (Auto) (1.2-4.9) X10*3/uL [place] # (Auto) (0.1-1.2) X10*3/uL Eos # (Auto) (0.0-0.4) X10*3/uL Baso # (Auto) (0.0-0.2) X10*3/uL Abs Immat Gran (auto) (0.00-0.03) X10*3/uL Absolute Neuts (auto) (2.0-8.3) x10*3/uL Absolute Nucleated RBC (0.0-0.012) X10*3/uL Nucleated RBC % (auto) (0.0-0.2) /100WBC PT 18.7 H (10.0-13.1) SEC INR 1.6 H (0.9-1.1) Sodium (135-145) mmol/L Potassium (3.3-5.1) mmol/L Chloride (96-108) mmol/L Carbon Dioxide (22-29) mmol/L Anion Gap (12-20) BUN (9-16) mg/dL Creatinine (0.5-1.4) mg/dL Estim Creat Clear Calc Estimated GFR Random Glucose (60-115) mg/dL Calcium (8.4-10.2) mg/dL Troponin I High Sens (<3.5-35.0) ng/L COVID-19 (SHANICE) Negative (Negative) COVID-19 Clin Com See Note Independent Interpretation I performed an independent interpretation of an: EKG Interpretation: Rate 93 ventricular paced with left bundle-branch block pattern. No change from previous Radiology Impression Discussion of test interpretation with radiology: I have reviewed the radiologist's reading. External Record Review External record reviewed: Inpatient record NIH Stroke Scale Internal: Initial- Upon Arrival Level of Consciousness: Alert Level of Consciousness Questions: Answers both questions correctly Level of Consciousness Commands: Performs both tasks correctly Best Gaze: Normal Visual: No visual loss Facial Palsy: Normal Motor Arm (Right): No drift Motor Arm (Left): No drift Motor Leg (Right): No drift Motor Leg (Left): No drift Limb Ataxia: Absent Sensory: Mild to moderate sensory loss Best Language: No aphasia Dysarthia: Normal Extinction and Inattention: No abnormality Score: 1 Discharge Plan Discharge Clinical Impression: Tingling of left upper extremity Patient Disposition: Admitted As Inpatient
[2022-09-13 15:02] LABS: INTERNATIONAL NORM RATIO 1.6 (0.9-1.1); Prothrombin Time 18.7 SEC (10.0-13.1)
[2022-09-13 15:03] LABS: Anion Gap 14 (12-20); Blood Urea Nitrogen 18 mg/dL (9-16); Calcium 8.4 mg/dL (8.4-10.2); Carbon Dioxide 27 mmol/L (22-29); Chloride 101 mmol/L (96-108); Creatinine Clr Calc Pharmacy 91.9; Estimated Glomerular Filt Rate > 60; Glucose Random 114 mg/dL (60-115); Potassium 3.5 mmol/L (3.3-5.1); Sodium 138 mmol/L (135-145)
--- NOTE | 2022-09-13 15:07 | PHA.MEDREC ---
Pharmacy Consult ? Medication Reconciliation Pharmacy has completed the medication reconciliation.
[2022-09-13 15:12] LABS: Troponin-I High Sensitivity 7.6 ng/L (<3.5-35.0)
[2022-09-13] MEDS: 0.9 % Sodium Chloride 1,000 ML 999 ML IV (15:14)
--- NOTE | 2022-09-13 15:14 | PC.NURSE ---
pt AOx3, pressure slightly soft but stable - NS hung. 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 Pt reports tingling in left arm for about 1 hour
--- NOTE | 2022-09-13 18:18 | P.HPHOSP_ITS ---
History of Present Illness Date of Service: 09/13/22 Attending physician on admission: Rashaun Paula Chief Complaint: Left-arm tingling Pt is a 61-year-old male with a PMH significant for hx of DVT, nonischemic cardiomyopathy, s/p transcatheter aortic valve replacement, s/p biventricular IC D, hx of upper extremity DVT, hx of complete heart block, Hodgkin's lymphoma, Val syndrome, hypothyroidism, and left bundle branch block who presents to the ED with?sudden-onset left-arm tingling. 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 Sat down, drank some juice, yet was still not at baseline. This was 20-30 minutes before his left arm suddenly started tingling from shoulder to fingertips. Did not notice any pain, paralysis, or reduction in strength. Pt denies falling or any trauma to the area. Denies having anything like this happen in the past. Denies chest pain/pressure, palpitations. No shortness of breath. Denies fever, chills, nausea, vomiting, abdominal pain. Denies numbness or tingling in any other extremity. ED provider spoke with Neurology who concluded that purely sensation symptoms did not warrant a CTA. Of note patient did have a pulmonary embolism and started on Eliquis approximately 1 and half months ago. In the ED labs were significant for slight leukocytosis of of 0.8, H&H of 9.8 with 30.0, troponin negative. CT?of head showed no acute intracranial pathology with mild inflammatory changes in the paranasal sinuses. EKG demonstrated ventricular paced rhythm with no evidence of ST elevations or depressions. Pt was treated with 1 L of IVF. Pt will be admitted to observation on telemetry for further workup and evaluation of left-arm tingling. Review of Systems Review of Systems: New onset left-arm tingling Denies left-arm weakness No chest pain/pressure, palpitations Denies shortness of breath No fever, chills, nausea, vomiting, abdominal pain Yes all other systems are reviewed and are negative [facility] Medical History Anemia, chronic disease Aortic stenosis, severe Cardiac resynchronization therapy defibrillator (DEVELOPMENT PROFESSIONAL-D) in place (~2013) Cerebellar dysfunction Complete heart block 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HFrEF (heart failure with reduced ejection fraction) History of COVID-19 History of TIA (transient ischemic attack) (~12/2018) Hodgkin disease (~1989) Hypotension (arterial) Hypothyroidism Idiopathic thrombocytopenia LBBB (left bundle branch block) Multinodular thyroid NICM (nonischemic cardiomyopathy) Osteoporosis Pulmonary embolism Pulmonary embolism Shortness of breath Vitamin D deficiency Family History Father Healthy adult male Mother Bladder cancer Surgical History History of appendectomy (~1989) History of cardiac defibrillator placement (~2013) History of cardiac pacemaker (~2013) History of colonoscopy (~2020) History of esophagogastroduodenoscopy (EGD) (~2021) History of hip surgery (~2020) History of splenectomy (~1989) History of thoracentesis (~2019) History of transcatheter aortic valve replacement (TAVR) (~2020) S/P thyroid biopsy (~2021) Social History Household Members: Family Housing: House Are you a primary residential care officer to a significant other at home: No Do you presently have visiting nurse or other home services: No Alcohol intake: current Alcohol intake frequency: holidays/special occasions only Alcohol type: beer Patient Tobacco Use Status: Never used Tobacco e-Cigarette/Vaping Use: Never Used Second Hand Smoke Exposure: No Advance Directives Date on File: 05/09/22 service: No Current occupational status: employed Current occupational exposures/hazards: No Meds Allergies Allergy/AdvReac Type Severity Reaction Status Date / Time No Known Allergies Allergy Verified 06/28/22 14:57 [No Known Allergies*] Active Medications: Current Medications Pharmacy Consult (Consult Rx Perform Med Rec) 1 each MISCELLANE ONCE PRN PRN Reason: Consult order Home Medications Medication Instructions Recorded Confirmed Last Taken Type furosemide 20 mg tablet 40 mg PO DAILY@1700 06/28/22 09/13/22 09/12/22 History furosemide 20 mg tablet (Lasix) 60 mg PO DAILY 06/28/22 09/13/22 09/13/22 Hi story levothyroxine 150 mcg tablet 150 mcg PO DAILY@0600 09/13/22 09/13/22 09/13/22 History Physical Exam Vital Signs and Narrative: Vital Signs: Last Vital Signs Temp 98.5 F 09/13/22 18:00 Pulse 87 09/13/22 18:00 Resp 16 09/13/22 18:00 BP 112/64 09/13/22 18:00 Pulse Ox 99 09/13/22 18:00 O2 Del Method 09/13/22 18:00 BMI result Body Mass Index 20.3 Constitutional: Alert, in no acute distress. Mental Status: Oriented to person, place and time. Eyes: Pupils are equal, round, and reactive to light. Ear, Nose, and Throat: Oropharynx clear, mucous membranes moist. Ears and nose without deformities. Trachea midline. Respiratory: Clear to auscultation bilaterally. No wheezing, rales, or rhonchi. Cardiovascular: S1, S2 regular. Systolic murmur in aortic area. Gastrointestinal: Abdomen soft, non-tender, non-distended. Normal bowel sounds. Neurologic: Cranial nerves II-XII are grossly intact bilaterally. No focal neurological deficits. Moves all extremities spontaneously. Light-touch sensatio n of upper and lower extremities intact bilaterally. Skin: No rashes or lesions noted. Musculoskeletal: No cyanosis or clubbing. Extremities: No edema. Psychiatric: Normal mood and affect. Results Labs 09/13/22 14:42 09/13/22 14:42 Labs: Laboratory Results - last 24 hr 09/13/22 09/13/22 09/13/22 14:42 14:42 14:42 MCV 88.0 MCH 28.7 MCHC 32.6 RDW 14.9 Plt Count 410 H MPV 9.6 Immature Gran % (Auto) 0.4 Neut % (Auto) 71.0 Lymph % (Auto) 15.6 L Cuming % (Auto) 11.1 H Eos % (Auto) 1.2 Baso % (Auto) 0.7 Lymph # (Auto) 1.8 Cuming # (Auto) 1.3 H Eos # (Auto) 0.1 Baso # (Auto) 0.1 Abs Immat Gran (auto) 0.05 H Absolute Neuts (auto) 8.4 H Absolute Nucleated RBC 0.000 Nucleated RBC % (auto) 0.0 PT INR Anion Gap 14 Estim Creat Clear Calc 91.9 Estimated GFR > 60 Random Glucose 114 Calcium 8.4 Troponin I High Sens 7.6 D 09/13/22 14:42 MCV MCH MCHC RDW Plt Count MPV Immature Gran % (Auto) Neut % (Auto) Lymph % (Auto) Cuming % (Auto) Eos % (Auto) Baso % (Auto) Lymph # (Auto) Cuming # (Auto) Eos # (Auto) Baso # (Auto) Abs Immat Gran (auto) Absolute Neuts (auto) Absolute Nucleated RBC Nucleated RBC % (auto) PT 18.7 H INR 1.6 H Anion Gap Estim Creat Clear Calc Estimated GFR Random Glucose Calcium Troponin I High Sens Imaging Radiologist's Impressions: Impressions Head CT 09/13/22 16:08 IMPRESSION: 1. No acute intracranial pathology. 2. Mild inflammatory changes in the paranasal sinuses. Assessment and Plan (1) Tingling of left upper extremity: Status: Acute Plan Pt is a 61-year-old male with a PMH significant for hx of DVT, nonischemic cardiomyopathy, s/p transcatheter aortic valve replacement, s/p biventricular ICD, hx of upper extremity DVT, hx of complete heart block, Hodgkin's lymphoma, Val syndrome, hypothyroidism, and left bundle branch block who presents to the ED with?sudden-onset left-arm tingling. Denies numbness or tingling in any other extremity. Patient will be admitted to observation on telemetry for further workup and evaluation of her tingling. Left-arm tingling Pt complains of sudden-onset left-arm tingling CT of head negative for acute intracranial pathology No focal deficits noted on physical exam ED spoke to Neurology who concluded that pt's purely sensation symptoms did not warrant a CTA Echocardiogram MRI of head and brain, pending pacemaker compatibility Neurology consult Lipid profile Cardiac diet Admit to telemetry Hx of PE on Eliquis Continue Eliquis Hypothyroidism Continue levothyroxine Hx of heart failure Continue furosemide, eplerenone, and ivabrandine Anemia, chronic Seems stable, near baseline Full Code Attending:?Dr. Paula DVT Prophylaxis: On Eliquis Patient will be admitted to observation on telemetry for further workup and evaluation of her tingling. Time Spent With Patient Time: Total time managing care of this patient today ____ minutes. Quality Stroke Does the patient have a stroke diagnosis?: No VTE Prior VTE?: Yes VTE Risk Level:: Medical - moderate - high VTE Device Contraindication: Treatment Not Indicated VTE Drug Contraindication: N/A - Med Ordered
--- NOTE | 2022-09-13 18:18 | PC.NURSE ---
pt AOx3, fluids finished. VSS.surveillance system monitor intact- NSR, Vpaced. Awaiting bed assignment. Will continue to monitor.
[2022-09-13 18:29] LABS: COVID-19 Test Negative (Negative); IDNOW Serial# 6674DD1D
--- NOTE | 2022-09-13 19:41 | PC.NURSE ---
called Tele floor to give report and texted RN. Awaiting callback
--- NOTE | 2022-09-13 19:45 | PC.NURSE ---
pt resting, VSS. monitor technician intact. will continue to monitor
[2022-09-13] MEDS: Apixaban 5 MG TABLET PO (20:42)
[2022-09-14] MEDS: 0.9 % Sodium Chloride Flush 3 ML SYRINGE IVFLUSH ×3 (00:12→16:56)
--- NOTE | 2022-09-14 01:30 | MHC.PIE ---
P.BACK PAIN/TINGLING LEFT ARM I.PT WOKE WITH LOW BACK PAIN AND VOMITED.STATED HIS LEFT ARM TINGLING HAS RETURNED.VS 98.7-87-18-93/57,SAT 99% ON ROOM AIR.MONITOR V PACED.DR HORAN NOTIFIED. UP TO UNIT TO SEE PATIENT AND ASSESS.ORDER GIVEN FOR CT OF SOFT TISSUE OF NECK WITH CONTRAST.CONSENT SIGNED. E.CONT TO MONITOR
[2022-09-14 02:00] VITALS: BP 93/57; PULSE 87; RESP 18; TEMP 37.1; O2SAT 99
--- NOTE | 2022-09-14 02:23 | PM.EVENT ---
Event Note Date of Service: 09/19/22 Event Note: LUE tinglin:30AM Patient reported tingling in his left upper extremity. On exam noted to have equal strength in sensations bilaterally Will obtain CT of the neck Primary team on admission-planning for MRI of the brain in the morning after confirming the pacemaker compatibility. Neurology consulted Time Spent With Patient Time: Total time managing care of this patient today ____ minutes.
[2022-09-14] MEDS: iohexoL 350 MG/ML 100 ML INFUS..BTL 60 ML IV (03:08)
[2022-09-14] MEDS: oxyCODONE HCl Immed Release 5 MG TABLET PO (03:38)
[2022-09-14] MEDS: Levothyroxine Sodium 150 MCG TABLET PO (06:40)
[2022-09-14 06:57] LABS: Cholesterol 112 mg/dL; HDL Cholesterol 35 mg/dL; LDL Cholesterol Calculated 68 mg/dl; Triglycerides 47 mg/dL
--- NOTE | 2022-09-14 07:00 | CA_ITS ---
Transthoracic Echocardiogram Patient (Last, First, Middle): Enrique Monahan, Gender: Male Date of : 1960 Age: 61 Procedure Date: 09/14/2022 Procedure Type: Transthoracic Echocardiogram Location: [facility] [place] Height: 180.34 cm Weight: 66.23 kg BSA: 1.84 m2 Heart Rate: bpm BP: 93 / 57 mmHg Pediatrician: MABEL Referring MD: Chitra SIMMONS Symptoms: Sudden-onset left-arm tingling, stroke r/o with bubble study Study Quality: Adequate/Contrast ECG Rhythm: Ventriculary paced rhythm Conclusions: - The left ventricular systolic function is moderately decreased. The visually estimated ejection fraction is between 35-40%. - A bioprosthetic aortic valve is present. The prosthetic aortic valve appears to be functioning normally. Findings Procedure Information Contrast agent, definity, is being given per protocol without apparent complications. Left Ventricle Normal left ventricular cavity size. There is normal left ventricular wall thickness. The left ventricular systolic function is moderately decreased. The visually estimated ejection fraction is between 35-40%. There is moderate global hypokinesis. E/E prime ratio is between 8 and 15 consistent with indeterminate filling pressures. Evidence suggests grade I (mild) diastolic dysfunction. Right Ventricle Normal right ventricular cavity size. There is moderately decreased right ventricular systolic function. There is an ICD wire seen in the right ventricle. Atria Both atria are normal in size. Aortic Valve A bioprosthetic aortic valve is present. The prosthetic aortic valve appears to be functioning normally. The mean gradient is 8 mmHg. There is no aortic valve regurgitation. Mitral Valve There is mild mitral annular calcification. There is mild mitral valve regurgitation. There is no mitral valve stenosis. Pulmonic Valve The pulmonic valve is likely normal. Tricuspid Valve There is trace tricuspid valve regurgitation. There is no evidence of pulmonary hypertension. Great Vessels The asc aorta is normal in size. Venous The inferior vena cava is mildly dilated and collapses less than 50% with inspiration. Pericardium/Pleural There is no evidence of pericardial effusion. Prior Study Comparison No significant change compared to prior study dated: 12/14/2021. Measurements 2D Linear Measurements IVSd: 0.64 0.6-0.9/0.6-1.0 cm LVIDd: 5.31 3.9-5.3/4.2-5.9 cm LVIDd Index: 2.89 2.4-3.2/2.2-3.1 cm/m2 LVIDs: 3.82 2.0-3.6 cm LVPWd: 1.00 0.7-1.1 cm LA Diam: 3.50 2.7-3.8/3.0-4.0 cm LAIDs Index: 1.90 1.5-2.3 cm/m2 LV Mass: 192.67 67-162/88-224 g LV Mass Index: 104.71 43-95/49-115 g/m2 LVOT Diam: 2.40 3.0+(-)1.3 cm 2D Systolic Function EF 4C: 63.40 >55% EF 2C: 66.30 >55% Mitral Valve MV Pk E: 0.73 MV PK A: 0.87 MV Decel Time: 202.00 E/A: 0.80 E'Lateral: 6.65 E'Medial: 6.41 E/E' Med: 11.40 E/E' Lat: 11.00 PHT: 59.00 MVA PHT: 3.73 Decel Marin: 3.62 Aortic Valve AoV Pk Sixto: 1.80 AoV Mn Sixto: 1.31 AoV VTI: 0.33 AoV Pk Grad: 13.00 Aov Mn Grad: 8.00 DANUTA Cont.VTI: 3.10 LVOT LVOT Pk Sixto: 1.15 LVOT Mn Sixto: 0.81 LVOT VTI: 0.23 LVOT Pk Grad: 5.00 LVOT Mn Grad: 3.00 LVOT Diam: 2.40 LVOT Area: 4.52 Diastolic Function MV Pk E: 0.73 MV Pk A: 0.87 E/A: 0.80 E'Medial: 6.41 E/E' Med: 11.40 E' Laterial: 6.65 E/E' Lat: 11.00 Right Ventricle TAPSE (mm): 12.60 TVS' Sixto: 7.20 Tricuspid Valve TR Pk Sixto: 1.88 TR Pk Grad: 14.00 RA Press: 15.00 RVSP: 29.00 Great Vessels Aorta Sinus of Valsalva: 3.90 2.0-3.5 cm Ao Asc: 3.40 2.1-3.4 cm Pulmonary Valve PV Pk Sixto: 0.88 Peak PV Grad: 3.00 Updated in Other Vendor System with Status of Final Hamilton Wyman MD electronically signed on 09/14/2022 12:42:02 PM with status of Final
[2022-09-14 07:38] VITALS: BP 95/53; PULSE 82; RESP 12; TEMP 36.9; O2SAT 94
[2022-09-14] MEDS: Apixaban 5 MG TABLET PO ×2 (08:05→19:53)
[2022-09-14] MEDS: Furosemide 20 MG TABLET 60 MG PO (08:05)
[2022-09-14] MEDS: Acetaminophen 325 MG TABLET 650 MG PO (08:06)
--- NOTE | 2022-09-14 08:40 | MHC.CLN ---
NUTRITION PATIENT KNOWN FROM PRIOR ADMISSIONS. LIKES ENSURE SUPPLEMENT. ADDING ENSURE TID TO PROVIDE ADDITIONAL 1050 KCALS, 60 G PROTEIN.
--- NOTE | 2022-09-14 11:02 | PM.NEUROCN ---
History of Present Illness Data of Consult Service Date: 09/14/22 Primary Care Provider: Yesica Kay MD [facility] Reason for consult: Acute onset tingling of left arm and funny feeling This is a 61-year-old male with h/o DVT, nonischemic cardiomyopathy, s/p transcatheter aortic valve replacement, s/p biventricular ICD, hx of upper extremity DVT, hx of complete heart block, Hodgkin's lymphoma, Val syndrome, hypothyroidism, and left bundle branch block who presents to the ED with?sudden-onset left-arm tingling and weak feeling. 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 Sat down, drank some juice, yet was still not at baseline. This was 20-30 minutes before his left arm suddenly started tingling from shoulder to fingertips. Did not notice any pain, paralysis, or reduction in strength. Pt denies falling or any trauma to the area. Denies having anything like this happen in the past.? Denies chest pain/pressure, palpitations.? No shortness of breath.? Denies fever, chills, nausea, vomiting, abdominal pain.? Denies numbness or tingling in any other extremity.? ED provider spoke with Neurology who concluded that purely sensation symptoms did not warrant a CTA.? Of note patient did have a pulmonary embolism and started on Eliquis approximately 1 and half months ago.? Review of Systems Review of Systems: New onset left-arm tingling Denies left-arm weakness No chest pain/pressure, palpitations Denies shortness of breath No fever, chills, nausea, vomiting, abdominal pain Yes all other systems are reviewed and are negative [facility] Past Medical History Medical History Anemia, chronic disease Aortic stenosis, severe Cardiac resynchronization therapy defibrillator ([employer]) in place (~2013) Cerebellar dysfunction Complete heart block 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HFrEF (heart failure with reduced ejection fraction) History of COVID-19 History of TIA (transient ischemic attack) (~12/2018) Hodgkin disease (~1989) Hypotension (arterial) Hypothyroidism Idiopathic thrombocytopenia LBBB (left bundle branch block) Multinodular thyroid NICM (nonischemic cardiomyopathy) Osteoporosis Pulmonary embolism Pulmonary embolism Shortness of breath Vitamin D deficiency Family History Family History Father Healthy adult male Mother Bladder cancer Surgical History Surgical History History of appendectomy (~1989) History of cardiac defibrillator placement (~2013) History of cardiac pacemaker (~2013) History of colonoscopy (~2020) History of esophagogastroduodenoscopy (EGD) (~2021) History of hip surgery (~2020) History of splenectomy (~1989) History of thoracentesis (~2019) History of transcatheter aortic valve replacement (TAVR) (~2020) S/P thyroid biopsy (~2021) Social History Social History Household Members: Family Housing: House Are you a primary pet care technician to a significant other at home: No Do you presently have visiting nurse or other home services: No Alcohol intake: current Alcohol intake frequency: holidays/special occasions only Alcohol type: beer Patient Tobacco Use Status: Never used Tobacco Smoked in Last 30 Days: No e-Cigarette/Vaping Use: Never Used Second Hand Smoke Exposure: No Use of substances other than those prescribed or required for medical reasons: No Advance Directives: Yes Advance Directives on File: Yes Advance Directives Date on File: 05/09/22 Nutrition Risks: No Nutritional Risk service: No Current occupational status: employed Current occupational exposures/hazards: No Meds Allergies Allergy/AdvReac Type Severity Reaction Status Date / Time No Known Allergies Allergy Verified 06/28/22 14:57 [No Known Allergies*] Active Medications: Current Medications Acetaminophen (Acetaminophen 325 Mg Tablet) 650 mg PO Q6H PRN PRN Reason: Pain, Mild (Pain Scale 1-3) Last Admin: 09/14/22 08:06 Dose: 650 mg Apixaban (Apixaban 5 Mg Tablet) 5 mg PO BID [facility] Last Admin: 09/14/22 08:05 Dose: 5 mg Docusate Sodium (Docusate Sodium 100 Mg Capsule) 100 mg PO DAILY PRN PRN Reason: Constipation Furosemide (Furosemide 40 Mg Tablet) 40 mg PO DAILY@1700 [facility]; Protocol Furosemide (Furosemide 20 Mg Tablet) 60 mg PO DAILY [facility]; Protocol Last Admin: 09/14/22 08:05 Dose: 60 mg Levothyroxine Sodium (Levothyroxine Sodium 150 Mcg Tablet) 150 mcg PO DAILY@0600 [facility] Last Admin: 09/14/22 06:40 Dose: 150 mcg Non-Formulary Medication (Eplerenone [Inspra]) 25 mg PO DAILY [facility] Non-Formulary Medication (Ivabradine [Corlanor]) 5 mg PO BIDWM [facility] Ondansetron HCl (Ondansetron Hcl 4 Mg/2 Ml Vial) 4 mg IVPUSH Q8H PRN PRN Reason: Nausea and Vomiting Pharmacy Consult (Consult Rx Perform Med Rec) 1 each MISCELLANE ONCE PRN PRN Reason: Consult order Sodium Chloride (0.9 % Sodium Chloride Flush 3 Ml Syringe) 3 ml IVFLUSH QSHIFT [facility] Last Admin: 09/14/22 08:07 Dose: 3 ml Home Medications Medication Instructions Recorded Confirmed Last Taken Type furosemide 20 mg tablet 40 mg PO DAILY@1700 06/28/22 09/13/22 09/12/22 History furosemide 20 mg tablet (Lasix) 60 mg PO DAILY 06/28/22 09/13/22 09/13/22 History levothyroxine 150 mcg tablet 150 mcg PO DAILY@0600 09/13/22 09/13/22 09/13/22 History Physical Exam Vital Signs: Vital Signs: Last Vital Signs Temp 98.5 F 09/14/22 07:38 Pulse 82 09/14/22 07:38 Resp 12 09/14/22 07:38 BP 95/53 L 09/14/22 07:38 Pulse Ox 94 09/14/22 07:38 O2 Del Method 09/14/22 07:38 BMI result Body Mass Index 20.3 Const: Other: Constitutional : Awake, interactive, not in distress Neck : Normal inspection, Supple Cardiovascular : RRR, no JVP, no lower extremity edema Respiratory : good bilateral air entry, no crackles Gastrointestinal: soft, lax, Normal bowel sounds, Non tender Skin : Warm, Dry Neurological : Alert & oriented x3, No focal deficit , good sensation light and deep touch bilaterally Neuro: Other: Neurological examination is normal Results Labs 09/13/22 14:42 09/13/22 14:42 Labs: Short CBC 09/13/22 Range/Units 14:42 WBC 11.8 H (4.8-10.8) X10*3/uL Hgb 9.8 L (14.0-18.0) g/dl Hct 30.1 L (42.0-52.0) % Plt Count 410 H (160-400) X10*3/uL [facility] 09/13/22 14:42 Sodium 138 Potassium 3.5 Chloride 101 Carbon Dioxide 27 BUN 18 H Creatinine 0.81 Calcium 8.4 Assessment and Plan (1) Tingling of left upper extremity: Status: Acute No evidence of a stroke. The patient is unable to have a MRI because has a pacemaker. Vaascular compromise or embolism into the left upper extremity shhould be excluded because the pulses are poor. I wouldd suggest doing blood pressures and ultrasound of the left arm arterial system. Plan Pt is a 61-year-old male with a PMH significant for hx of DVT, nonischemic cardiomyopathy, s/p transcatheter aortic valve replacement, s/p biventricular ICD, hx of upper extremity DVT, hx of complete heart block, Hodgkin's lymphoma, [place] syndrome, hypothyroidism, and left bundle branch block who presents to the ED with?sudden-onset left-arm tingling. Denies numbness or tingling in any other extremity. Patient will be admitted to observation on telemetry for further workup and evaluation of her tingling. Left-arm tingling Pt complains of sudden-onset left-arm tingling CT of head negative for acute intracranial pathology No focal deficits noted on physical exam ED spoke to Neurology who concluded that pt's purely sensation symptoms did not warrant a CTA Echocardiogram MRI of head and brain, pending pacemaker compatibility Neurology consult Lipid profile Cardiac diet Admit to telemetry Hx of PE on Eliquis Continue Eliquis Hypothyroidism Continue levothyroxine Hx of heart failure Continue furosemide, eplerenone, and ivabrandine Anemia, chronic Seems stable, near baseline Full Code Attending:?Dr. Paula DVT Prophylaxis: On Eliquis Patient will be admitted to observation on telemetry for further workup and evaluation of her tingling. Time Spent With Patient Time: Total time managing care of this patient today ____ minutes. Procedures Date of Service Date of Service: 09/14/22
--- NOTE | 2022-09-14 11:07 | P.PNIM_ITS ---
Subjective Subjective Date of Service: 09/14/22 Interval History: Seen and evaluated this morning Report having no energy and is and generalized weakness Tingling and numbness sensation is left upper extremity with no weakness No other overnight events Review of Systems No fever, chills but reports generalized weakness No chest pain, palpitation No shortness of breath or coughing No abdominal pain, nausea or vomiting No urinary symptoms No any rash or wounds Left upper extremity tingling sensation Physical Exam Vital Signs: Vital Signs: Last Vital Signs Temp 98.5 F 09/14/22 07:38 Pulse 82 09/14/22 07:38 Resp 12 09/14/22 07:38 BP 95/53 L 09/14/22 07:38 Pulse Ox 94 09/14/22 07:38 O2 Del Method 09/14/22 07:38 BMI result Body Mass Index 20.3 Const: Other: Constitutional : Awake, interactive, not in distress Neck : Normal inspection, Supple Cardiovascular : RRR, no JVP, no lower extremity edema Respiratory : good bilateral air entry, no crackles Gastrointestinal: soft, lax, Normal bowel sounds, Non tender Skin : Warm, Dry Neurological : Alert & oriented x3, No focal deficit , good sensation light and deep touch bilaterally Objective Data Active Medications Acetaminophen (Acetaminophen 325 Mg Tablet) 650 mg PO Q6H PRN PRN Reason: Pain, Mild (Pain Scale 1-3) Last Admin: 09/14/22 08:06 Dose: 650 mg Documented By: CHAVEZ Apixaban (Apixaban 5 Mg Tablet) 5 mg PO BID [facility] Last Admin: 09/14/22 08:05 Dose: 5 mg Documented By: CHAVEZ Docusate Sodium (Docusate Sodium 100 Mg Capsule) 100 mg PO DAILY PRN PRN Reason: Constipation Furosemide (Furosemide 40 Mg Tablet) 40 mg PO DAILY@1700 [facility]; Protocol Furosemide (Furosemide 20 Mg Tablet) 60 mg PO DAILY [facility]; Protocol Last Admin: 09/14/22 08:05 Dose: 60 mg Documented By: CHAVEZ Levothyroxine Sodium (Levothyroxine Sodium 150 Mcg Tablet) 150 mcg PO DAILY@0600 [facility] Last Admin: 09/14/22 06:40 Dose: 150 mcg Documented By: RAMA Non-Formulary Medication (Eplerenone [Inspra]) 25 mg PO DAILY [facility] Non-Formulary Medication (Ivabradine [Corlanor]) 5 mg PO BIDWM [facility] Ondansetron HCl (Ondansetron Hcl 4 Mg/2 Ml Vial) 4 mg IVPUSH Q8H PRN PRN Reason: Nausea and Vomiting Pharmacy Consult (Consult Rx Perform Med Rec) 1 each MISCELLANE ONCE PRN PRN Reason: Consult order Sodium Chloride (0.9 % Sodium Chloride Flush 3 Ml Syringe) 3 ml IVFLUSH QSHIFT [facility] Last Admin: 09/14/22 08:07 Dose: 3 ml Documented By: CHAVEZ Labs 09/13/22 14:42 09/13/22 14:42 Labs: Laboratory Results - last 24 hr 09/13/22 09/13/22 09/13/22 14:42 14:42 14:42 MCV 88.0 MCH 28.7 MCHC 32.6 RDW 14.9 Plt Count 410 H MPV 9.6 Immature Gran % (Auto) 0.4 Neut % (Auto) 71.0 Lymph % (Auto) 15.6 L Dewitt % (Auto) 11.1 H Eos % (Auto) 1.2 Baso % (Auto) 0.7 Lymph # (Auto) 1.8 Dewitt # (Auto) 1.3 H Eos # (Auto) 0.1 Baso # (Auto) 0.1 Abs Immat Gran (auto) 0.05 H Absolute Neuts (auto) 8.4 H Absolute Nucleated RBC 0.000 Nucleated RBC % (auto) 0.0 PT INR Anion Gap 14 Estim Creat Clear Calc 91.9 Estimated GFR > 60 Random Glucose 114 Calcium 8.4 Troponin I High Sens 7.6 D Triglycerides Cholesterol LDL Cholesterol, Calc HDL Cholesterol COVID-19 ([facility]) COVID-19 Clin Com 09/13/22 09/13/22 09/14/22 14:42 18:07 06:10 MCV MCH MCHC RDW Plt Count MPV Immature Gran % (Auto) Neut % (Auto) Lymph % (Auto) Dewitt % (Auto) Eos % (Auto) Baso % (Auto) Lymph # (Auto) Dewitt # (Auto) Eos # (Auto) Baso # (Auto) Abs Immat Gran (auto) Absolute Neuts (auto) Absolute Nucleated RBC Nucleated RBC % (auto) PT 18.7 H INR 1.6 H Anion Gap Estim Creat Clear Calc Estimated GFR Random Glucose Calcium Troponin I High Sens Triglycerides 47 Cholesterol 112 LDL Cholesterol, Calc 68 HDL Cholesterol 35 COVID-19 ([facility]ANICE) Negative COVID-19 Clin Com See Note Assessment and Plan (1) Tingling of left upper extremity: Status: Acute Plan Pt is a 61-year-old male with a PMH significant for hx of DVT, nonischemic cardiomyopathy, s/p transcatheter aortic valve replacement, s/p biventricular ICD, hx of upper extremity DVT, hx of complete heart block, Hodgkin's lymphoma, [place] syndrome, hypothyroidism, and left bundle branch block who presents to the ED with?sudden-onset left-arm tingling. Denies numbness or tingling in any other extremity. Patient will be admitted to observation on telemetry for further workup and evaluation of her tingling. Left-arm tingling CT of head negative for acute intracranial pathology No focal deficits on exam Pending Echocardiogram Unable to get MRI of head and brain for pacemaker incompatibility Neurology consult pending Lipid profile Hx of PE on Eliquis Continue Eliquis Hypothyroidism Continue levothyroxine Hx of heart failure Continue furosemide, eplerenone, and ivabrandine Anemia, chronic Seems stable, near baseline Full Code Attending:?Dr. Paula DVT Prophylaxis: On Eliquis Patient will be admitted to observation on telemetry for further workup and evaluation of her tingling. Time Spent With Patient Time: Total time managing care of this patient today ____ minutes. Quality Stroke Does the patient have a stroke diagnosis?: No VTE Prior VTE?: Yes VTE Risk Level:: Medical - moderate - high VTE Device Contraindication: Treatment Not Indicated VTE Drug Contraindication: N/A - Med Ordered
[2022-09-14 12:00] VITALS: BP 98/54; PULSE 86; RESP 16; TEMP 36.5; O2SAT 100
[2022-09-14 15:18] VITALS: BP 101/53; PULSE 89; RESP 18; TEMP 37.1; O2SAT 98; BMI 20.3
--- NOTE | 2022-09-14 15:22 | MHC.CM.PN ---
[facility] DELIVERED PT LIVES WITH [facility], [employer]. INDEPENDENT AT [employer], EMPLOYED. + COVID VAX X 4 +HCP ON FILE. PCP DR. ROGERS AT [facility]. DP: HOME, NO SERVICES ANTICIPATED. FAMILY WILL TRANSPORT AT [place]. CM WILL CONTINUE TO FOLLOW
[2022-09-14] MEDS: Furosemide 40 MG TABLET PO (16:56)
[2022-09-14 19:18] VITALS: BP 110/61; PULSE 90; RESP 18; TEMP 36.6; O2SAT 98
[2022-09-14 23:38] VITALS: BP 93/55; PULSE 90; RESP 18; TEMP 37.1; O2SAT 98
[2022-09-15 03:12] VITALS: BP 104/60; PULSE 92; RESP 18; TEMP 36.6; O2SAT 95
[2022-09-15] MEDS: Levothyroxine Sodium 150 MCG TABLET PO (05:17)
[2022-09-15] MEDS: oxyCODONE HCl Immed Release 5 MG TABLET PO (05:46)
[2022-09-15 08:00] VITALS: BP 94/68; PULSE 76; RESP 18; TEMP 36.6; O2SAT 98
[2022-09-15] MEDS: IVABRADINE 5 MG 5 EACH PO (08:32)
[2022-09-15] MEDS: 0.9 % Sodium Chloride Flush 3 ML SYRINGE IVFLUSH (08:32)
[2022-09-15] MEDS: Apixaban 5 MG TABLET PO (08:32)
--- NOTE | 2022-09-15 10:36 | P.DS_ITS ---
DS: Providers Provider Date of Service: 09/15/22 Date of admission: 09/13/22 18:39 Primary care physician: Yesica Kay MD Consults: 09/13/22 18:33 Consult to Neurology Routine Consulting Provider: [facility] Reason for consultation: Sudden-onset left-arm tingling DS: Diagnosis Discharge Diagnosis (1) Tingling of left upper extremity: Status: Acute DS: Summary Hospital Course Hospital Course: Admission note HPI Pt is a 61-year-old male with a PMH significant for hx of DVT, nonischemic cardiomyopathy, s/p transcatheter aortic valve replacement, s/p biventricular ICD, hx of upper extremity DVT, hx of complete heart block, Hodgkin's lymphoma, [place] syndrome, hypothyroidism, and left bundle branch block who presents to the ED with?sudden-onset left-arm tingling. 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 Sat down, drank some juice, yet was still not at baseline. This was 20-30 minutes before his left arm suddenly started tingling from shoulder to fingertips. Did not notice any pain, paralysis, or reduction in strength. Pt denies falling or any trauma to the area. Denies having anything like this happen in the past.? Denies chest pain/pressure, palpitations.? No shortness of breath.? Denies fever, chills, nausea, vomiting, abdominal pain.? Denies numbness or tingling in any other extremity.? ED provider spoke with Neurology who concluded that purely sensation symptoms did not warrant a CTA.? Of note patient did have a pulmonary embolism and started on Eliquis approximately 1 and half months ago.? In the ED labs were significant for slight leukocytosis of of 0.8, H&H of 9.8 with 30.0, troponin negative. CT?of head showed no acute intracranial pathology with mild inflammatory changes in the paranasal sinuses. EKG demonstrated ventricular paced rhythm with no evidence of ST elevations or depressions. Pt was treated with 1 L of IVF. Pt will be admitted to observation on telemetry for further workup and evaluation of left-arm tingling. Hospital course The patient was admitted for evaluation of left arm tingling sensation. CT scan of the head was negative for any acute findings. Patient could not have MRI for history of pacemaker none MRI friendly. Evaluated by neurologist who did not feel there is any evidence of acute stroke and recommended vascular study to rule out any arterial compromise. Doppler ultrasound was done showing no evidence of stenosis or narrowing. The patient symptoms improved as tingling decreased but still there at time of discharge. He was able to participate with Physical therapy who recommended home therapy. To continue his home medications at time of discharge. Time Spent with Patient Time attestation: Total time managing care of this patient today ____ minutes. Discharge coordination time: Less than 30 minutes Quality: Safe Use of Opioids Does Pt have an Active Cancer Diagnosis on the Problem List?: No Quality: Stroke Does the patient have a stroke diagnosis?: No Physical Exam Vital Signs: Vital Signs: Last Vital Signs Temp 97.9 F 09/15/22 08:00 Pulse 76 09/15/22 08:00 Resp 18 09/15/22 08:00 BP 94/68 09/15/22 08:00 Pulse Ox 98 09/15/22 08:00 O2 Del Method 09/15/22 03:12 BMI result Body Mass Index 20.3 Const: Other: Constitutional : Awake, interactive, not in distress Neck : Normal inspection, Supple Cardiovascular : RRR, no JVP, no lower extremity edema Respiratory : good bilateral air entry, no crackles Gastrointestinal: soft, lax, Normal bowel sounds, Non tender Skin : Warm, Dry Neurological : Alert & oriented x3, No focal deficit , good sensation light and deep touch bilaterally DS: Data Data Completed and Pending Completed studies during hospitalization [Text1]: Procedures Control Bleeding in Gastrointestinal Tract, Via Natural or Artificial Opening Endoscopic (11/18/21) Drainage of Bone Marrow, Percutaneous Approach, Diagnostic (09/20/21) Excision of Stomach, Pylorus, Via Natural or Artificial Opening Endoscopic, Diagnostic (01/13/21) Extraction of Iliac Bone Marrow, Percutaneous Approach, Diagnostic (09/20/21) Inspection of Lower Intestinal Tract, Via Natural or Artificial Opening Endoscopic (01/13/21) Inspection of Upper Intestinal Tract, Via Natural or Artificial Opening Endoscopic (11/18/21) Introduction of Other Therapeutic Substance into Upper GI, Via Natural or Artificial Opening Endoscopic (11/18/21) Reposition Left Upper Femur with Internal Fixation Device, Percutaneous Approach (01/25/21) Transfusion of Nonautologous Red Blood Cells into Peripheral Vein, Percutaneous Approach (12/01/21) Imaging CT scan - head: Radiologist's impression: ITS Impressions Head CT 09/13/22 16:08 IMPRESSION: 1. No acute intracranial pathology. 2. Mild inflammatory changes in the paranasal sinuses. Soft Tissue Neck CT 09/14/22 03:13 IMPRESSION: - No significant soft tissue findings are appreciated within the neck. - Partially imaged small bilateral pleural effusions. Probable postradiation/posttreatment changes within the medial lungs bilaterally. Partially imaged soft tissue within the right hilum, likely similar to recent chest CT exams. - A 1.7 cm lobulated heterogeneous density structure within the left suprascapular soft tissues on image 104 of series 2 is stable when compared to multiple prior studies. - Large left mastoid effusion and near complete opacification of the left middle ear cavity. - Moderate mucosal thickening within the right maxillary sinus and involving the ethmoid air cells bilaterally. Duplex Scan Upper Extremity Artery 09/14/22 20:27 IMPRESSION: No significant stenosis throughout the left upper extremity. Discharge Plan Discharge Anticipated Discharge Date/Time: 09/15/22 10:29 Patient Disposition: Home Health Service Discharge Diagnosis: Left upper extremity tingling sensation Referrals: [facility] [Outside] - 1 Week (HOME CARE SERVICES) Yesica Burden MD [Primary Care Provider] - 1 Week Discharge Medications: Continued eplerenone [Inspra] 25 mg tablet 25 mg PO DAILY Qty: 90 3RF Eliquis 5 mg Tablet 5 mg PO BID Qty: 180 4RF furosemide [Lasix] 20 mg tablet 60 mg PO DAILY levothyroxine 150 mcg tablet 150 mcg PO DAILY@0600 furosemide 20 mg tablet 40 mg PO DAILY@1700 Rx Instructions: TAKE 3 TABLETS EVERY MORNING and TAKE 2 TABLETS AT 5 PM; TOTAL DAILY DOSE 100MG Corlanor 5 mg tablet 5 mg PO BIDWM Qty: 180 3RF Rx Instructions: must administer with a meal/food Discharge Orders: Discharge Order (Routine); Ordered 09/15/22 Ordered By: Jhony Erickson Diet: Advance to usual diet Activity on Discharge: As tolerated Stand Alone Forms: Patient Portal Discharge page Care Plan Goals: Read below Health Concerns: Read below Plan of Treatment: Read below Assessment: You were admitted to the hospital for evaluation of left upper extremity tingl ing sensation. Brain images including CT scan were negative for any acute findings. A vascular ultrasound was done showing no evidence of problem with blood supply. Evaluated by neurologist who did not feel and evidence of stroke. Start physical therapy with visiting nurses Continue home medications To follow-up with PCP for further workup if problem persists.
--- NOTE | 2022-09-15 10:39 | MHC.CM.PN ---
Addendum entered by Yuliya Lopez 09/15/22 11:02: PT IS DECLINING HOME SERVICES, [facility] NOTIFIED. MD AWARE. Original Note: DP: PT HAS BEEN MEDICALLY CLEARED FOR DC HOME WITH NEW [facility] SERVICES. RN AWARE. FAMILY WILL TRANSPORT HOME
--- NOTE | 2022-09-15 10:43 | W.MHC.F2F ---
Service Date Service Date: 09/15/22 Encounter Date of encounter: 09/15/22 Reasons for Services Signs and symptoms assessed: Physical deconditioning Reason for prison: medication management and teach disease management Reason for physical therapy: home safety and mobility and therapeutic exercises Homebound: Leaving the home is medically contraindicated at this time without the asist of a device and/or another person due th the listed conditions above and below. Reason homebound: unsteady gait / fall risk Certification: Based on the above findings, I certify that this patient is confined to the home and needs intermittent prison care, physical therapy and/or speech therapy, or continues to need occupational therapy. The patient is under my care, and I have initiated the establishment of the plan of care. The patient will be followed by a physician who will periodically review the plan of care. Time Spent With Patient Time: Total time managing care of this patient today ____ minutes.
== END 2022-09-15 14:01 | disposition home health service (06) ==
LOC: HO.ED 15:17 → HO.EDOVER 18:49 → HO.IMC 18:56
PROVIDERS: Admitting Provider Student in an Organized Health Care Education/Training Program; Emergency Provider Student in an Organized Health Care Education/Training Program; PCP Internal Medicine; Visit Provider Student in an Organized Health Care Education/Training Program
DX: R20.2 Paresthesia of skin (principal); R09.89 Other specified symptoms and signs involving the circulatory and respiratory systems; M54.50 Low back pain, unspecified; D72.829 Elevated white blood cell count, unspecified; Z20.822 Contact with and (suspected) exposure to COVID-19; I95.89 Other hypotension; I50.20 Unspecified systolic (congestive) heart failure; C81.90 Hodgkin lymphoma, unspecified, unspecified site; D69.3 Immune thrombocytopenic purpura; Q85.82 Other Cowden syndrome; D63.8 Anemia in other chronic diseases classified elsewhere; I42.8 Other cardiomyopathies; I44.7 Left bundle-branch block, unspecified; G93.89 Other specified disorders of brain; E03.9 Hypothyroidism, unspecified; E04.2 Nontoxic multinodular goiter; E55.9 Vitamin D deficiency, unspecified; M81.0 Age-related osteoporosis without current pathological fracture; Z95.2 Presence of prosthetic heart valve; Z95.810 Presence of automatic (implantable) cardiac defibrillator; Z86.711 Personal history of pulmonary embolism; Z86.718 Personal history of other venous thrombosis and embolism; Z86.73 Personal history of transient ischemic attack (TIA), and cerebral infarction without residual deficits; Z92.21 Personal history of antineoplastic chemotherapy; Z79.01 Long term (current) use of anticoagulants; Z79.899 Other long term (current) drug therapy
CPT/HCPCS: 36415; 70450; 70491; 80048; 80061; 84484; 85025; 85610; 87635; 93005; 93306; 93931; 96360; 97110; 97162; 97166; 99222; 99284; 99285; Q9957; Q9967

== ENCOUNTER 2022-10-10 08:29 | Inpatient (IN) | payer OTHER, SELFPAY ==
[2022-10-10] VITALS (17 sets, daily range): BP systolic 80–116; BP diastolic 44–65; PULSE 75–88; RESP 12–20; TEMP 36.4–36.9; O2SAT 94–100; BMI 20.2
--- NOTE | ~2022-10-10 | CT_ITS ---
EXAMINATION: CT LUMBAR SPINE WITHOUT CONTRAST CLINICAL INFORMATION: Severe pain COMPARISON: CT abdomen/pelvis dated 12/07/2021 TECHNIQUE: Multidetector CT imaging of the lumbar spine was performed without the use of intravenous contrast. Coronal and sagittal reformats created on an independent workstation were reviewed. This CT examination was performed using dose optimization techniques as appropriate, variously including the following: *Automated exposure control *Adjustment of mA and/or kV according to patient size (this includes techniques or standardized protocols for targeted exams where dose is matched to indication/reason for exam; i.e. extremities or head) *Use of iterative reconstruction technique DLP; 367 mGy-cm FINDINGS: No acute fracture or traumatic malalignment. Mild anterior wedging at T12 is likely physiologic. Intervertebral disc herniations noted along the superior endplates of T12 and L1. Small endplate osteophytes present throughout the lumbar spine. Mild loss of disc space height at L5-S1. Mild facet arthropathy from L3 through L5 and moderate facet arthropathy at L5-S1. Paraspinal soft tissues unremarkable. Nonspecific fat stranding present in the retroperitoneum and about the pancreas. Chronic heavily calcified. Mass anterolateral to the descending duodenum, inferior to the gallbladder. Small bilateral pleural effusions. CT/CT lumbar spine wo IV con IMPRESSION: * No acute fracture or traumatic malalignment. * Mild lumbar spondylosis as described. * Nonspecific fat stranding present in the retroperitoneum and about the pancreas. Correlate with serum lipase. * Small bilateral pleural effusions.
--- NOTE | ~2022-10-10 | CT_ITS ---
EXAMINATION: CT HEAD WITHOUT CONTRAST CLINICAL INFORMATION: Acute severe headache. COMPARISON: The seventh [address] scan. TECHNIQUE: Contiguous axial imaging was performed from the skull base to vertex without intravenous administration of contrast. Coronal and sagittal reformatted images were obtained. This CT examination was performed using dose optimization techniques as appropriate, variously including the following: *Automated exposure control *Adjustment of mA and/or kV according to patient size (this includes techniques or standardized protocols for targeted exams where dose is matched to indication/reason for exam; i.e. extremities or head) *Use of iterative reconstruction technique DLP: 781 mGy-cm FINDINGS: The cortical sulci are normal. The lateral ventricles are symmetrical. The third and fourth ventricles are in their normal midline position. The basilar and prepontine cisterns are unremarkable. There is no acute intra or extracerebral abnormality. There is no mass effect or midline shift. Sections through the bony calvarium are unremarkable. The paranasal sinuses are clear. The bony orbits and orbital contents are unremarkable. CT/CT head/brain wo IV con IMPRESSION: No acute intracranial pathology.
--- NOTE | ~2022-10-10 | XR_ITS ---
EXAMINATION: XR CHEST CLINICAL INFORMATION: Shortness of breath COMPARISON: 10/10/2022 TECHNIQUE: Frontal view of the chest was obtained. FINDINGS: Patchy opacities in the lower lungs. Trace bilateral pleural effusions. No pneumothorax. Normal heart size status post TAVR. Aorta is atherosclerotic. Stably positioned biventricular AICD. Healed right-sided rib fractures. XR/XR chest 1V IMPRESSION: * Patchy opacities in the lower lungs could represent atelectasis or infiltrate. * Trace bilateral pleural effusions.
--- NOTE | ~2022-10-10 | XR_ITS ---
EXAMINATION: XR CHEST CLINICAL INFORMATION: Chest pain. COMPARISON: 08/01/2022 chest radiograph. TECHNIQUE: Frontal view of the chest was obtained. FINDINGS: Support devices: Left-sided pacemaker device appears in good position. Aortic valve prosthesis in place without abnormality. There is minimal blunting of the costophrenic angles bilaterally. Mild biapical pleural thickening without significant change. The lungs otherwise clear. The heart and mediastinal structures are unchanged. Multilevel healed right rib fractures are again noted. XR/XR chest 1V IMPRESSION: Minimal blunting of the costophrenic angles bilaterally could represent pleural scarring or very small pleural effusions.
--- NOTE | 2022-10-10 09:01 | ECG_ITS ---
Test Reason : LIGHTHEADED Blood Pressure : / mmHG Vent. Rate : 079 BPM Atrial Rate : 079 BPM P-R Int : 156 ms QRS Dur : 156 ms QT Int : 460 ms P-R-T Axes : 046 246 058 degrees QTc Int : 527 ms Atrial-sensed ventricular-paced rhythm Abnormal ECG When compared with ECG of 13-SEP-2022 15:00, Vent. rate has decreased BY 14 BPM Referred By: Rudolph Alvarado Electronically Signed By:Jairo Valdez
[2022-10-10] MEDS: 0.9 % Sodium Chloride 1,000 ML 999 ML IV ×2 (09:19→15:31)
[2022-10-10] MEDS: ondansetron HCL 4 MG/2 ML VIAL IVPUSH (09:19)
[2022-10-10] MEDS: Morphine Sulfate 4 MG/ML CARTRIDGE IVPUSH ×2 (09:19→11:24)
[2022-10-10 09:28] LABS: MANUAL DIFF FLAG NO
[2022-10-10 09:29] LABS: Basophils Absolute Auto 0.1 X10*3/uL (0.0-0.2); Basophils Percent Auto 0.8 % (0-2); Eosinophils Percent Auto 0.1 % (0-4); Imm Gran Abs Auto 0.08 X10*3/uL (0.00-0.03); Imm Gran Pct Auto 0.6 % (0.0-0.4); Lymphocytes Absolute Auto 0.7 X10*3/uL (1.2-4.9); Lymphocytes Percent Auto 5.4 % (20-40); Mean Corpuscular HGB Conc 30.8 g/dl (31.0-36.0); Mean Corpuscular Hemoglobin 25.6 pg (27.0-33.0); Mean Corpuscular Volume 83.1 fL (80.0-98.0); Mean Platelet Volume 9.9 fL (9.4-12.4); Monocytes Absolute Auto 1.4 X10*3/uL (0.1-1.2); Monocytes Percent Auto 10.3 % (2-11); Neutrophils Percent Auto 82.8 % (45-73); Platelet Count 390 X10*3/uL (160-400); Red Blood Count 2.07 X10*6/uL (4.60-5.80); Red Cell Distribution Width 14.9 % (11.0-16.0); White Blood Count 13.2 X10*3/uL (4.8-10.8)
[2022-10-10 09:34] LABS: Hematocrit 17.2 % (42.0-52.0); Hemoglobin 5.3 g/dl (14.0-18.0); NRBC Pct Auto 1.8 /100WBC (0.0-0.2)
[2022-10-10 09:39] LABS: INTERNATIONAL NORM RATIO 2.1 (0.9-1.1); Prothrombin Time 24.9 SEC (10.0-13.1)
[2022-10-10 09:41] LABS: Partial Thromboplastin Time 54.1 SEC (26.0-36.4)
[2022-10-10 09:47] LABS: Anion Gap 15 (12-20); Blood Urea Nitrogen 27 mg/dL (9-16); Calcium 8.7 mg/dL (8.4-10.2); Carbon Dioxide 29 mmol/L (22-29); Chloride 97 mmol/L (96-108); Creatinine Clr Calc Pharmacy 82.2; Estimated Glomerular Filt Rate > 60; Glucose Random 93 mg/dL (60-115); Potassium 3.7 mmol/L (3.3-5.1); Sodium 137 mmol/L (135-145)
[2022-10-10 09:48] LABS: Appearance Urine Clear; Color Urine Yellow; Glucose Urine UA Negative (Negative); Leukocyte Esterase Urine Negative (Negative); Nitrite Urine Negative (Negative); PH 7.5 (5.0-9.0); Urine Blood Negative (Negative); Urine Ketones Negative (Negative); Urine Protein Negative (Neg-Trace)
[2022-10-10 09:54] LABS: COVID-19 Test Negative (Negative); IDNOW Serial# 08D9AD1C
[2022-10-10 09:55] LABS: Troponin-I High Sensitivity < 3.5 ng/L (<3.5-35.0)
--- NOTE | 2022-10-10 09:55 | PHA.MEDREC ---
Pharmacy Consult ? Medication Reconciliation Pharmacy has completed the medication reconciliation. Patient confirmed all medications. Reports he just got a new prescription for meclizine and takes about twice a day. Patient had medications this morning, but reports got sick about 20 minutes after taking medications. Patient did not have meclizine today. Rosmery Ramirez, PharmD
--- NOTE | 2022-10-10 10:31 | ED.HA ---
HPI - Headache General Chief Complaint: Headache Stated Complaint: headache Time Seen by Provider: 10/10/22 08:53 Source: patient Mode of arrival: ambulatory Limitations: no limitations History of Present Illness HPI Narrative: 61-year-old male on blood thinning medications presents with severe headache. Headache happened suddenly. It is severe. It is occipital. He did not radiate. It was associated with nausea vomiting. He denies any neck pain or stiffness. He describes some generalized vision changes but no vision loss. He also is having paresthesias to the upper arms but no weakness. Patient has never had anything like this before. There is no trauma or fall. Patient denies any fevers or chills. He did have 1 episode of emesis was nonbloody and nonbilious. Related Data Home Medications Medication Instructions Recorded Confirmed furosemide 20 mg tablet 40 mg PO DAILY@1700 06/28/22 10/10/22 furosemide 20 mg tablet (Lasix) 60 mg PO DAILY 06/28/22 10/10/22 levothyroxine 150 mcg tablet 150 mcg PO DAILY@0600 09/13/22 10/10/22 Previous Rx's Medication Instructions Recorded ivabradine 5 mg tablet (Corlanor) 5 mg PO BIDWM #180 tabs 12/14/21 apixaban 5 mg tablet (Eliquis) 5 mg PO BID #180 tabs 08/04/22 eplerenone 25 mg tablet (Inspra) 25 mg PO DAILY #90 tabs 08/26/22 meclizine 25 mg tablet 25 mg PO TID PRN dizziness 7 days 10/04/22 #21 tabs Allergies Allergy/AdvReac Type Severity Reaction Status Date / Time No Known Allergies Allergy Verified 10/04/22 10:14 [No Known Allergies*] [facility] Past Medical History Medical History Anemia, chronic disease Aortic stenosis, severe Cardiac resynchronization therapy defibrillator (RN CLINICAL COORDINATOR-D) in place (~2013) Cerebellar dysfunction Complete heart block 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HFrEF (heart failure with reduced ejection fraction) History of COVID-19 History of TIA (transient ischemic attack) (~12/2018) Hodgkin disease (~1989) Hypotension (arterial) Hypothyroidism Idiopathic thrombocytopenia LBBB (left bundle branch block) Multinodular thyroid NICM (nonischemic cardiomyopathy) Osteoporosis Pulmonary embolism Pulmonary embolism Shortness of breath Tingling of left upper extremity Vitamin D deficiency Surgical History History of appendectomy (~1989) History of cardiac defibrillator placement (~2013) History of cardiac pacemaker (~2013) History of colonoscopy (~2020) History of esophagogastroduodenoscopy (EGD) (~2021) History of hip surgery (~2020) History of splenectomy (~1989) History of thoracentesis (~2019) History of transcatheter aortic valve replacement (TAVR) (~2020) S/P thyroid biopsy (~2021) Family History Family History Father Healthy adult male Mother Bladder cancer Social History Social History Household Members: Family Housing: House Are you a primary health care marketing specialist to a significant other at home: No Do you presently have visiting nurse or other home services: No Alcohol intake: current Alcohol intake frequency: holidays/special occasions only Alcohol type: beer Patient Tobacco Use Status: Never used Tobacco Smoked in Last 30 Days: No e-Cigarette/Vaping Use: Never Used Second Hand Smoke Exposure: No Use of substances other than those prescribed or required for medical reasons: No Any prior treatment program specific to substance use: No Advance Directives: Yes Advance Directives on File: Yes Advance Directives Date on File: 05/09/22 service: No Current occupational status: employed Current occupational exposures/hazards: No Cognitive needs: No Hearing needs: Yes Vision needs: Yes Physical Exam Vital Signs: Vital Signs: Last Vital Signs Temp 97.7 F 10/10/22 11:48 Pulse 85 10/10/22 12:22 Resp 14 10/10/22 12:22 BP 100/60 10/10/22 12:22 Pulse Ox 100 10/10/22 12:22 O2 Del Method Nasal Cannula 10/10/22 12:22 O2 Flow Rate 2 10/10/22 12:22 BMI result Body Mass Index 20.2 GEN: Well developed, + acute distress, alert, oriented HEENT: Normocephalic, atraumatic, normal external ears, nose appears normal, no oropharyngeal edema or exudates Eyes: Normal to appearance Neck: Supple, no lymphadenopathy Respiratory: Talks in complete sentences, no respiratory distress, clear to auscultation bilaterally Cardiovascular: Regular rate and rhythm, no murmurs rubs or gallops Abdomen: Soft, nontender, nondistended, no guarding, no rebound Back: No CVA tenderness Extremities: No clubbing cyanosis or edema Neurologic: No focal neurologic deficits, cranial nerves 2-12 intact, strength is 5/5 bilaterally, gait normal Skin: No rash Course Course Course Narrative: 61-year-old male presents with severe sudden-onset headache on blood thinning medications it was nontraumatic. Examination revealed a non comfortable male no acute distress. There is no nuchal rigidity. Patient did have analgesics and re-evaluation did demonstrate an significant improvement in his symptoms. My initial evaluation of the CT scan did not demonstrate any acute bleeding. We discussed the possibility of performing a lumbar puncture. Patient is on Eliquis which does pose some risk for the patient. Incidentally, patient did have a hemoglobin level drawn which was significantly lower than previous. He does have history of leukemia. However, given the degree of change in hemoglobin, patient would benefit from a blood transfusion. I did perform a rectal exam on the patient and he was guaiac negative. Patient will be admitted to the hospital. Reevaluation(s) Reevaluation #1: LP results are back. There is no evidence of bleeding. There is no evidence of subarachnoid hemorrhage. Patient is receiving his 1st unit of blood. Patient will be admitted at this time. I contacted the hospitalist. Time: 13:22 Medications Administered Discontinued Medications Generic Name Dose Route Start Last Admin Trade Name Freq PRN Reason Stop Dose Admin Sodium Chloride 1,000 mls @ 999 mls/hr 10/10/22 09:00 10/10/22 10:25 Ns IV 10/10/22 10:00 Infused .Q1H1M JERRELL Infusion Lidocaine/Epinephrine 20 ml 10/10/22 11:09 10/10/22 11:36 Lidocaine Hcl 2%/Epi 1:100,000 20 Ml Vial INFILTRATI 10/10/22 11:10 20 ml ONCE ONE Administration Morphine Sulfate 4 mg 10/10/22 09:00 10/10/22 09:19 Morphine Sulfate 4 Mg/Ml Cartridge IVPUSH 10/10/22 09:01 4 mg ONCE ONE Administration Protocol Morphine Sulfate 4 mg 10/10/22 11:06 10/10/22 11:24 Morphine Sulfate 4 Mg/Ml Cartridge IVPUSH 10/10/22 11:07 4 mg ONCE ONE Administration Protocol Ondansetron HCl 4 mg 10/10/22 09:00 10/10/22 09:19 Ondansetron Hcl 4 Mg/2 Ml Vial IVPUSH 10/10/22 09:01 4 mg ONCE ONE Administration Medical Decision Making Medical Decision Making [facility] Narrative: 61-year-old male presents with severe sudden-onset headache. Examination revealed an uncomfortable male but no acute distress. He had no focal deficits. He had no neck stiffness or rigidity. Patient also had 1 episode the nausea and vomiting. Differential diagnosis is broad. Significant workup will be undertaken including imaging of the head Differential Diagnosis Differential Diagnoses: The differential diagnosis associated with the presentation includes (Subdural hematoma, epidural hematoma, subarachnoid hemorrhage, headache, migraine, tension, cluster headache) Admission/Observation Consideration of admission/observation: Escalation of care including admission/observation considered Consult Healthcare Provider Management of the patient was discussed with: Hospitalist Lab Data [facility] Lab Attestation statement: I reviewed the patient's lab results. 10/10/22 09:19 10/10/22 09:18 Labs: Lab Results 10/10/22 10/10/22 10/10/22 Range/Units 09:18 09:18 09:18 WBC (4.8-10.8) X10*3/uL RBC (4.60-5.80) X10*6/uL Hgb (14.0-18.0) g/dl Hct (42.0-52.0) % MCV (80.0-98.0) fL MCH (27.0-33.0) pg MCHC (31.0-36.0) g/dl RDW (11.0-16.0) % Plt Count (160-400) X10*3/uL MPV (9.4-12.4) fL Immature Gran % (Auto) (0.0-0.4) % Neut % (Auto) (45-73) % Lymph % (Auto) (20-40) % [place] % (Auto) (2-11) % Eos % (Auto) (0-4) % Baso % (Auto) (0-2) % Lymph # (Auto) (1.2-4.9) X10*3/uL [place] # (Auto) (0.1-1.2) X10*3/uL Eos # (Auto) (0.0-0.4) X10*3/uL Baso # (Auto) (0.0-0.2) X10*3/uL Abs Immat Gran (auto) (0.00-0.03) X10*3/uL Absolute Neuts (auto) (2.0-8.3) x10*3/uL Absolute Nucleated RBC (0.0-0.012) X10*3/uL Nucleated RBC % (auto) (0.0-0.2) /100WBC Smear Path Review PT (10.0-13.1) SEC INR (0.9-1.1) APTT (26.0-36.4) SEC Sodium 137 (135-145) mmol/L Potassium 3.7 (3.3-5.1) mmol/L Chloride 97 (96-108) mmol/L Carbon Dioxide 29 (22-29) mmol/L Anion Gap 15 (12-20) BUN 27 H (9-16) mg/dL Creatinine 0.90 (0.5-1.4) mg/dL Estim Creat Clear Calc 82.2 Estimated GFR > 60 Random Glucose 93 (60-115) mg/dL Calcium 8.7 (8.4-10.2) mg/dL Troponin I High Sens < 3.5 D (<3.5-35.0) ng/L Urine Color Urine Appearance Urine pH (5.0-9.0) Ur Specific [place] (1.005-1.025) Urine Protein (Neg-Trace) mg/dL Urine Glucose (UA) (Negative) mg/dL Urine Ketones (Negative) mg/dL Urine Blood (Negative) Urine Nitrite (Negative) Ur Leukocyte Esterase (Negative) CSF Tube Number CSF Volume ML CSF Appearance CSF Color CSF WBC MM*3 CSF RBC MM*3 CSF Lymphocytes % CSF Monocytes % % CSF Appearance (b) COVID-19 (SHANICE) Negative (Negative) COVID-19 Clin Com See Note Blood Type Antibody Screen Crossmatch 10/10/22 10/10/22 10/10/22 Range/Units 09:18 09:19 09:41 WBC 13.2 H (4.8-10.8) X10*3/uL RBC 2.07 L D (4.60-5.80) X10*6/uL Hgb 5.3 L* D (14.0-18.0) g/dl Hct 17.2 L* D (42.0-52.0) % MCV 83.1 (80.0-98.0) fL MCH 25.6 L (27.0-33.0) pg MCHC 30.8 L (31.0-36.0) g/dl RDW 14.9 (11.0-16.0) % Plt Count 390 (160-400) X10*3/uL MPV 9.9 (9.4-12.4) fL Immature Gran % (Auto) 0.6 H (0.0-0.4) % Neut % (Auto) 82.8 H (45-73) % Lymph % (Auto) 5.4 L (20-40) % [place] % (Auto) 10.3 (2-11) % Eos % (Auto) 0.1 (0-4) % Baso % (Auto) 0.8 (0-2) % Lymph # (Auto) 0.7 L (1.2-4.9) X10*3/uL [place] # (Auto) 1.4 H (0.1-1.2) X10*3/uL Eos # (Auto) 0.0 (0.0-0.4) X10*3/uL Baso # (Auto) 0.1 (0.0-0.2) X10*3/uL Abs Immat Gran (auto) 0.08 H (0.00-0.03) X10*3/uL Absolute Neuts (auto) 11.0 H (2.0-8.3) x10*3/uL Absolute Nucleated RBC 0.240 H (0.0-0.012) X10*3/uL Nucleated RBC % (auto) 1.8 H (0.0-0.2) /100WBC Smear Path Review SEE NOTE PT 24.9 H (10.0-13.1) SEC INR 2.1 H (0.9-1.1) APTT 54.1 H (26.0-36.4) SEC Sodium (135-145) mmol/L Potassium (3.3-5.1) mmol/L Chloride (96-108) mmol/L Carbon Dioxide (22-29) mmol/L Anion Gap (12-20) BUN (9-16) mg/dL Creatinine (0.5-1.4) mg/dL Estim Creat Clear Calc Estimated GFR Random Glucose (60-115) mg/dL Calcium (8.4-10.2) mg/dL Troponin I High Sens (<3.5-35.0) ng/L Urine Color Yellow Urine Appearance Clear Urine pH 7.5 (5.0-9.0) Ur Specific [place] 1.010 (1.005-1.025) Urine Protein Negative (Neg-Trace) mg/dL Urine Glucose (UA) Negative (Negative) mg/dL Urine Ketones Negative (Negative) mg/dL Urine Blood Negative (Negative) Urine Nitrite Negative (Negative) Ur Leukocyte Esterase Negative (Negative) CSF Tube Number CSF Volume ML CSF Appearance CSF Color CSF WBC MM*3 CSF RBC MM*3 CSF Lymphocytes % CSF Monocytes % % CSF Appearance (b) COVID-19 (SHANICE) (Negative) COVID-19 Clin Com Blood Type Antibody Screen Crossmatch 10/10/22 10/10/22 10/10/22 Range/Units 10:37 11:52 11:52 WBC (4.8-10.8) X10*3/uL RBC (4.60-5.80) X10*6/uL Hgb (14.0-18.0) g/dl Hct (42.0-52.0) % MCV (80.0-98.0) fL MCH (27.0-33.0) pg MCHC (31.0-36.0) g/dl RDW (11.0-16.0) % Plt Count (160-400) X10*3/uL MPV (9.4-12.4) fL Immature Gran % (Auto) (0.0-0.4) % Neut % (Auto) (45-73) % Lymph % (Auto) (20-40) % [place] % (Auto) (2-11) % Eos % (Auto) (0-4) % Baso % (Auto) (0-2) % Lymph # (Auto) (1.2-4.9) X10*3/uL [place] # (Auto) (0.1-1.2) X10*3/uL Eos # (Auto) (0.0-0.4) X10*3/uL Baso # (Auto) (0.0-0.2) X10*3/uL Abs Immat Gran (auto) (0.00-0.03) X10*3/uL Absolute Neuts (auto) (2.0-8.3) x10*3/uL Absolute Nucleated RBC (0.0-0.012) X10*3/uL Nucleated RBC % (auto) (0.0-0.2) /100WBC Smear Path Review PT (10.0-13.1) SEC INR (0.9-1.1) APTT (26.0-36.4) SEC Sodium (135-145) mmol/L Potassium (3.3-5.1) mmol/L Chloride (96-108) mmol/L Carbon Dioxide (22-29) mmol/L Anion Gap (12-20) BUN (9-16) mg/dL Creatinine (0.5-1.4) mg/dL Estim Creat Clear Calc Estimated GFR Random Glucose (60-115) mg/dL Calcium (8.4-10.2) mg/dL Troponin I High Sens (<3.5-35.0) ng/L Urine Color Urine Appearance Urine pH (5.0-9.0) Ur Specific [place] (1.005-1.025) Urine Protein (Neg-Trace) mg/dL Urine Glucose (UA) (Negative) mg/dL Urine Ketones (Negative) mg/dL Urine Blood (Negative) Urine Nitrite (Negative) Ur Leukocyte Esterase (Negative) CSF Tube Number 1 1 CSF Volume 0.5 ML CSF Appearance CLEAR CSF Color COLORLESS CSF WBC 1 MM*3 CSF RBC 0 MM*3 CSF Lymphocytes % CSF Monocytes % 100 % CSF Appearance (b) Clear, Colorless COVID-19 (SHANICE) (Negative) COVID-19 Clin Com Blood Type A Positive Antibody Screen NEGATIVE Crossmatch See Detail 10/10/22 Range/Units 11:52 WBC (4.8-10.8) X10*3/uL RBC (4.60-5.80) X10*6/uL Hgb (14.0-18.0) g/dl Hct (42.0-52.0) % MCV (80.0-98.0) fL MCH (27.0-33.0) pg MCHC (31.0-36.0) g/dl RDW (11.0-16.0) % Plt Count (160-400) X10*3/uL MPV (9.4-12.4) fL Immature Gran % (Auto) (0.0-0.4) % Neut % (Auto) (45-73) % Lymph % (Auto) (20-40) % [place] % (Auto) (2-11) % Eos % (Auto) (0-4) % Baso % (Auto) (0-2) % Lymph # (Auto) (1.2-4.9) X10*3/uL [place] # (Auto) (0.1-1.2) X10*3/uL Eos # (Auto) (0.0-0.4) X10*3/uL Baso # (Auto) (0.0-0.2) X10*3/uL Abs Immat Gran (auto) (0.00-0.03) X10*3/uL Absolute Neuts (auto) (2.0-8.3) x10*3/uL Absolute Nucleated RBC (0.0-0.012) X10*3/uL Nucleated RBC % (auto) (0.0-0.2) /100WBC Smear Path Review PT (10.0-13.1) SEC INR (0.9-1.1) APTT (26.0-36.4) SEC Sodium (135-145) mmol/L Potassium (3.3-5.1) mmol/L Chloride (96-108) mmol/L Carbon Dioxide (22-29) mmol/L Anion Gap (12-20) BUN (9-16) mg/dL Creatinine (0.5-1.4) mg/dL Estim Creat Clear Calc Estimated GFR Random Glucose (60-115) mg/dL Calcium (8.4-10.2) mg/dL Troponin I High Sens (<3.5-35.0) ng/L Urine Color Urine Appearance Urine pH (5.0-9.0) Ur Specific [place] (1.005-1.025) Urine Protein (Neg-Trace) mg/dL Urine Glucose (UA) (Negative) mg/dL Urine Ketones (Negative) mg/dL Urine Blood (Negative) Urine Nitrite (Negative) Ur Leukocyte Esterase (Negative) CSF Tube Number 4 CSF Volume 0.5 ML CSF Appearance CLEAR CSF Color COLORLESS CSF WBC 1 MM*3 CSF RBC 0 MM*3 CSF Lymphocytes 100 % CSF Monocytes % % CSF Appearance (b) COVID-19 (SHANICE) (Negative) COVID-19 Clin Com Blood Type Antibody Screen Crossmatch Independent Interpretation I performed an independent interpretation of an: EKG and CT Scan (CT head no acute intracranial findings) Interpretation: Ventricularly paced rhythm. Radiology Impression Discussion of test interpretation with radiology: I have reviewed the radiologist's reading. ( CT/CT head/brain wo IV con IMPRESSION: No acute intracranial pathology. Dictated By:Ajay Santos MDSigned By:<Electronically signed by Ajay Santos MD in [place]>10/10/22 [id number]) Tests considered The following testing was considered but not selected: ct/mri Prescription Management I considered prescription management with: Pain Medication Chronic Conditions Patient?s care impacted by: Other (atrial fibrillation on chronic anticoaglation) Procedures Lumbar Puncture Time Out Performed: Yes Patient Position: left lateral decubitus Skin Prep: Povidone-Iodine 1% Local Anesthetic: lidocaine 2% and with epi Amount of anesthesia used (mL): 6 Spinal Needle Gauge: 22G Interspace Used: L4-L5 Fluid Initially Obtained: clear Complications: none Critical Care Time Critical Care Time Critical Care Time: Yes Total Critical Care Time: 35 Attestation: Critical care time the amount of approximately 35 minutes was undertaken. Patient was evaluated immediately upon arrival. Sudden severe acute onset headache. Consideration for subarachnoid hemorrhage is still currently being worked up. Critical care time in the form of bedside reassessments, pain management, interpretation of imaging studies, documentation, interpretation of data, consultation with other providers. This is outside of procedures. Discharge Plan Discharge Clinical Impression: Headache, Anemia, Atrial fibrillation Patient Disposition: Admitted As Inpatient Prescriptions: No Action eplerenone [Inspra] 25 mg tablet 25 mg PO DAILY Qty: 90 3RF Eliquis 5 mg Tablet 5 mg PO BID Qty: 180 4RF furosemide [Lasix] 20 mg tablet 60 mg PO DAILY levothyroxine 150 mcg tablet 150 mcg PO DAILY@0600 meclizine 25 mg tablet 25 mg PO TID PRN (Reason: dizziness) 7 Days Qty: 21 0RF furosemide 20 mg tablet 40 mg PO DAILY@1700 Rx Instructions: TAKE 3 TABLETS EVERY MORNING and TAKE 2 TABLETS AT 5 PM; TOTAL DAILY DOSE 100MG Corlanor 5 mg tablet 5 mg PO BIDWM Qty: 180 3RF Rx Instructions: must administer with a meal/food
[2022-10-10] MEDS: Lidocaine HCl 2%/Epi 1:100,000 20 ML VIAL INFILTRATI (11:36)
--- NOTE | 2022-10-10 12:04 | PC.NURSE ---
PRBC infusing at this time, no s/sx of reaction noted after first 15 minutes. Provider in at bedside for LP.
[2022-10-10 13:00] LABS: Appearance CSF CLEAR; CSF Appearance Clear, Colorless; CSF Monos 100 %; CSF Tube # 1; CSF Volume 0.5 ML; Color CSF COLORLESS; Red Blood Cell CSF 0 MM*3; White Blood Cell CSF 1 MM*3
[2022-10-10 13:01] LABS: Appearance CSF CLEAR; CSF Tube # 4; CSF Volume 0.5 ML; Color CSF COLORLESS; Lymphocytes CSF 100 %; Red Blood Cell CSF 0 MM*3; White Blood Cell CSF 1 MM*3
[2022-10-10 13:23] LABS: Glucose CSF 62 mg/dL; Total Protein CSF 28.5 mg/dL (15-45)
--- NOTE | 2022-10-10 14:23 | PM.IMHP ---
History of Present Illness Date of Service: 10/10/22 Attending physician on admission: Gary Oh Chief Complaint: headache 61-year-old male with history of Hodgkin's lymphoma currently in remission, nonischemic cardiomyopathy, HFrEF, history PE/DVT on Eliquis, chronic normocytic anemia, paroxysmal atrial fibrillation anticoagulated with Eliquis w/ AICD in place, hypothyroidism, codeine syndrome, osteoporosis, chremotherapy related cerebellar dysfunction, and history of TIA presents to the ED earlier today for evaluation of sudden-onset severe occipital headache that occur while driving in to work this morning. There is associated blurred vision, photophobia, nausea, and vomiting x1 with nonbloody emesis. He states for the past week he has been experiencing episodes of vertigo for which his PCP prescribed meclizine and was present this morning associated with headache. He has never had similar headache in past and denies hx migraines. Today, he states he has also been experiencing fatigue, CAMARGO, and lightheadedness (different than his vertigo). No fevers, chills, recent illness, otalgia, tinnitus, change in hearing, abdominal pain, diarrhea, melena, hematochezia, palpitations, or chest pain. He does report constipation and states last bowel movement was last night and was quite soft but no watery stool. On arrival, vital stable though blood pressure is soft at 94/57 on exam. Leukocytosis of 13.2, RBC 2.07, H/H 5.3/17.2% (9.8/ 30.1% on 09/13). Iron 14, TIBC 306, 5% saturation, ferritin 15. LDH 217. Stool occult blood negative. PT 24.9, INR 2.1, PTT 54.1. Renal function normal, electrolyte levels normal. Trop WNL. UA unremarkable. Head CT negative for any acute intracranial abnormality. Follow-up lumbar puncture performed to further evaluate thunderclap headache. No RBCs. CSF unremarkable overall, gram stain negative, culture pending. CXR showing minimal blunting of the costophrenic angles bilaterally related to scarring vs trace effusions. In the ED, patient received IV morphine with resolution of headache, ondansetron, 1 L IVF, and 2 units packed red blood cells. Review of Systems Review of Systems: General: No fevers, malaise, unintentional weight loss. +fatigue, +generalized weakness HEENT: No blurred vision, diplopia. No sore throat, nasal congestion, rhinorrhea, sinus pain, ear pain Cardiovascular: No chest pain, palpitations, or leg edema Respiratory: +CAMARGO. No wheezing, cough GI: +nausea, +vomiting. No abdominal pain, diarrhea, constipation, melena, hematochezia : No dysuria, hematuria, increased urinary frequency, decreased urinary output MSK: No myalgia, back pain Neuro: No weakness, paresthesias. +vertigo, +lightheadedness Skin: No rashes or lesions [facility] Medical History Anemia, chronic disease Aortic stenosis, severe Cardiac resynchronization therapy defibrillator ([employer]-D) in place (~2013) Cerebellar dysfunction Complete heart block 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HFrEF (heart failure with reduced ejection fraction) History of COVID-19 History of TIA (transient ischemic attack) (~12/2018) Hodgkin disease (~1989) Hypotension (arterial) Hypothyroidism Idiopathic thrombocytopenia LBBB (left bundle branch block) Multinodular thyroid NICM (nonischemic cardiomyopathy) Osteoporosis Pulmonary embolism Pulmonary embolism Shortness of breath Tingling of left upper extremity Vitamin D deficiency Family History Father Healthy adult male Mother Bladder cancer Surgical History History of appendectomy (~1989) History of cardiac defibrillator placement (~2013) History of cardiac pacemaker (~2013) History of colonoscopy (~2020) History of esophagogastroduodenoscopy (EGD) (~2021) History of hip surgery (~2020) History of splenectomy (~1989) History of thoracentesis (~2019) History of transcatheter aortic valve replacement (TAVR) (~2020) S/P thyroid biopsy (~2021) Social History Household Members: Family Housing: House Are you a primary healthcare receptionist to a significant other at home: No Do you presently have visiting nurse or other home services: No Alcohol intake: current Alcohol intake frequency: holidays/special occasions only Alcohol type: beer Patient Tobacco Use Status: Never used Tobacco Smoked in Last 30 Days: No e-Cigarette/Vaping Use: Never Used Second Hand Smoke Exposure: No Use of substances other than those prescribed or required for medical reasons: No Any prior treatment program specific to substance use: No Advance Directives: Yes Advance Directives on File: Yes Advance Directives Date on File: 05/09/22 service: No Current occupational status: employed Current occupational exposures/hazards: No Cognitive needs: No Hearing needs: Yes Vision needs: Yes Meds Allergies Allergy/AdvReac Type Severity Reaction Status Date / Time No Known Allergies Allergy Verified 10/04/22 10:14 [No Known Allergies*] Active Medications: Current Medications Pharmacy Consult (Consult Rx Perform Med Rec) 1 each MISCELLANE ONCE PRN PRN Reason: Consult order Home Medications Medication Instructions Recorded Confirmed Last Taken Type furosemide 20 mg tablet 40 mg PO DAILY@1700 06/28/22 10/10/22 10/09/22 History furosemide 20 mg tablet (Lasix) 60 mg PO DAILY 06/28/22 10/10/22 10/10/22 History levothyroxine 150 mcg tablet 150 mcg PO DAILY@0600 09/13/22 10/10/22 10/10/22 History Physical Exam Vital Signs and Narrative: Vital Signs: Last Vital Signs Temp 97.7 F 10/10/22 11:48 Pulse 81 10/10/22 14:03 Resp 14 10/10/22 14:03 BP 90/52 L 10/10/22 14:03 Pulse Ox 100 10/10/22 14:03 O2 Del Method Nasal Cannula 10/10/22 14:03 O2 Flow Rate 2 10/10/22 14:03 BMI result Body Mass Index 20.2 Constitutional - Awake and Alert, No apparent distress Eyes - PERRLA, EOMI Cardiovascular - S1S2, RRR, No edema Respiratory - Normal lung expansion, Normal respiratory effort, No respiratory distress, Gastrointestinal - NT / ND; +BS; No rebound or guarding Extremities - no calf tenderness bilaterally, no swelling Musculoskeletal - Normal inspection, normal ROM Skin - Warm/Dry Neurological - Alert & oriented x3 Psychological - Appropriate affect Results Labs 10/10/22 09:19 10/10/22 09:18 Labs: Laboratory Results - last 24 hr 10/10/22 10/10/22 10/10/22 09:18 09:18 09:18 MCV MCH MCHC RDW Plt Count MPV Immature Gran % (Auto) Neut % (Auto) Lymph % (Auto) [place] % (Auto) Eos % (Auto) Baso % (Auto) Lymph # (Auto) [place] # (Auto) Eos # (Auto) Baso # (Auto) Abs Immat Gran (auto) Absolute Neuts (auto) Absolute Nucleated RBC Nucleated RBC % (auto) Smear Path Review PT INR APTT Anion Gap 15 Estim Creat Clear Calc 82.2 Estimated GFR > 60 Random Glucose 93 Calcium 8.7 Troponin I High Sens < 3.5 D Urine Color Urine Appearance Urine pH Ur Specific [place] Urine Protein Urine Glucose (UA) Urine Ketones Urine Blood Urine Nitrite Ur Leukocyte Esterase CSF Tube Number CSF Volume CSF Appearance CSF Color CSF WBC CSF RBC CSF Lymphocytes CSF Monocytes % CSF Appearance (b) CSF Glucose CSF Total Protein COVID-19 (SHANICE) Negative COVID-19 Clin Com See Note Blood Type Antibody Screen Crossmatch 10/10/22 10/10/22 10/10/22 09:18 09:19 09:41 MCV 83.1 MCH 25.6 L MCHC 30.8 L RDW 14.9 Plt Count 390 MPV 9.9 Immature Gran % (Auto) 0.6 H Neut % (Auto) 82.8 H Lymph % (Auto) 5.4 L [place] % (Auto) 10.3 Eos % (Auto) 0.1 Baso % (Auto) 0.8 Lymph # (Auto) 0.7 L [place] # (Auto) 1.4 H Eos # (Auto) 0.0 Baso # (Auto) 0.1 Abs Immat Gran (auto) 0.08 H Absolute Neuts (auto) 11.0 H Absolute Nucleated RBC 0.240 H Nucleated RBC % (auto) 1.8 H Smear Path Review SEE NOTE PT 24.9 H INR 2.1 H APTT 54.1 H Anion Gap Estim Creat Clear Calc Estimated GFR Random Glucose Calcium Troponin I High Sens Urine Color Yellow Urine Appearance Clear Urine pH 7.5 Ur Specific [place] 1.010 Urine Protein Negative Urine Glucose (UA) Negative Urine Ketones Negative Urine Blood Negative Urine Nitrite Negative Ur Leukocyte Esterase Negative CSF Tube Number CSF Volume CSF Appearance CSF Color CSF WBC CSF RBC CSF Lymphocytes CSF Monocytes % CSF Appearance (b) CSF Glucose CSF Total Protein COVID-19 (SHANICE) COVID-19 Clin Com Blood Type Antibody Screen Crossmatch 10/10/22 10/10/22 10/10/22 10:37 11:52 11:52 MCV MCH MCHC RDW Plt Count MPV Immature Gran % (Auto) Neut % (Auto) Lymph % (Auto) [place] % (Auto) Eos % (Auto) Baso % (Auto) Lymph # (Auto) [place] # (Auto) Eos # (Auto) Baso # (Auto) Abs Immat Gran (auto) Absolute Neuts (auto) Absolute Nucleated RBC Nucleated RBC % (auto) Smear Path Review PT INR APTT Anion Gap Estim Creat Clear Calc Estimated GFR Random Glucose Calcium Troponin I High Sens Urine Color Urine Appearance Urine pH Ur Specific [place] Urine Protein Urine Glucose (UA) Urine Ketones Urine Blood Urine Nitrite Ur Leukocyte Esterase CSF Tube Number 1 1 CSF Volume 0.5 CSF Appearance CLEAR CSF Color COLORLESS CSF WBC 1 CSF RBC 0 CSF Lymphocytes CSF Monocytes % 100 CSF Appearance (b) Clear, Colorless CSF Glucose 62 CSF Total Protein 28.5 COVID-19 (SHANICE) COVID-19 [place] Blood Type A Positive Antibody Screen NEGATIVE Crossmatch See Detail 10/10/22 11:52 MCV MCH MCHC RDW Plt Count MPV Immature Gran % (Auto) Neut % (Auto) Lymph % (Auto) [place] % (Auto) Eos % (Auto) Baso % (Auto) Lymph # (Auto) [place] # (Auto) Eos # (Auto) Baso # (Auto) Abs Immat Gran (auto) Absolute Neuts (auto) Absolute Nucleated RBC Nucleated RBC % (auto) Smear Path Review PT INR APTT Anion Gap Estim Creat Clear Calc Estimated GFR Random Glucose Calcium Troponin I High Sens Urine Color Urine Appearance Urine pH Ur Specific [place] Urine Protein Urine Glucose (UA) Urine Ketones Urine Blood Urine Nitrite Ur Leukocyte Esterase CSF Tube Number 4 CSF Volume 0.5 CSF Appearance CLEAR CSF Color COLORLESS CSF WBC 1 CSF RBC 0 CSF Lymphocytes 100 CSF Monocytes % CSF Appearance (b) CSF Glucose CSF Total Protein COVID-19 (SHANICE) COVID-19 [place] Blood Type Antibody Screen Crossmatch Imaging Radiologist's Impressions: Impressions Chest X-Ray 10/10/22 09:15 IMPRESSION: Minimal blunting of the costophrenic angles bilaterally could represent pleural scarring or very small pleural effusions. Head CT 10/10/22 09:19 IMPRESSION: No acute intracranial pathology. Assessment and Plan (1) Headache: Status: Acute (2) Anemia: Status: Acute Plan 61-year-old male with history of Hodgkin's lymphoma currently in remission, nonischemic cardiomyopathy, HFrEF, history PE/DVT on Eliquis, chronic normocytic anemia, paroxysmal atrial fibrillation anticoagulated with Eliquis w/ AICD in place, hypothyroidism, codeine syndrome, osteoporosis, and history of TIA admitted for acute on chronic symptomatic anemia. #Acute on chronic iron deficiency anemia -likely related to blood loss from eliquis use. Hold eliquis -H/H 5.3/17.2% (last 0.1% on 09/13) -Iron 14, ferritin 15, 5% saturation. LDH WNL -transfuse 2 units. Give 20mg IV lasix between units -IV PPI 40mg BID -Appreciate GI input -Follow CBC, goal Hgb around 10.0 given NICM -Admit to telemetry #Acute occipital headache- resolved -SAH ruled out with head CT and LP -given associated n/v, veritgo, ?migraine -ondansetron, meclizine prn -consider neuro eval if recurs #Vertigo/Gait instability -?r/t above -Has known chemotherapy related cerebellar dysfunction -PT eval # paroxysmal atrial fibrillation-rate controlled -AICD in place -hold Eliquis due to above #HFrEF/NICM -euvolemic appearing -continue PO diuretics -continue inspra, corlanor #Hypothyroidism -continue levothyroxine # Hodgkin lymphoma -in remission -follows with Dr. Merchant outpatient DVT prophylaxis- SCPs Full code Pt requires inpt stay at least 2 midnights for management of acute blood loss anemia requiring blood transfusion, expert consultation and close monitoring of blood counts and cardiac monitoring Time Spent With Patient Time: Total time managing care of this patient today ____ minutes. Quality Stroke Does the patient have a stroke diagnosis?: No VTE Prior VTE?: No VTE Risk Level:: Medical - moderate - high VTE Device Contraindication: N/A - Device Ordered VTE Drug Contraindication: Treatment Not Indicated
[2022-10-10 14:26] LABS: Alanine Aminotransferase 10 U/L (0-40); Albumin Level 3.7 g/dL (3.5-5.0); Alkaline Phosphatase 64 U/L (39-117); Aspartate Amino Transferase 17 U/L (5-37); Bilirubin Direct 0.2 mg/dL (0.0-0.5); Bilirubin Total 0.6 mg/dL (0.0-1.0); Iron 14 mcg/dL (45-160); Lactate Dehydrogenase 217 U/L (118-273); Percent Iron Saturation 5 % (15-50); Total Iron Binding Capacity 306 mcg/dL (228-428); Total Protein 5.9 g/dL (6.5-8.0); Unsaturated Iron Binding 292 ug/dL
[2022-10-10 14:41] LABS: Ferritin 15 ng/mL (20-250)
--- NOTE | 2022-10-10 15:31 | PC.NURSE ---
Patient hypotensive 80/50 manual. Provider aware, second IV placed and IVF infusing now. Patient remains alert and oriented x3, speech clear. Seconf unit of PRBC infusing, patient tolerating well.
[2022-10-10] MEDS: Pantoprazole Sodium 40 MG/10 ML VIAL IVPUSH (16:22)
[2022-10-10] MEDS: 0.9 % Sodium Chloride Flush 3 ML SYRINGE IVFLUSH (16:22)
[2022-10-10] MEDS: Acetaminophen 325 MG TABLET 650 MG PO ×2 (16:34→23:04)
[2022-10-10] MEDS: Furosemide 20 MG/2 ML VIAL IVPUSH (16:34)
[2022-10-10 19:42] LABS: Basophils Absolute Auto 0.1 X10*3/uL (0.0-0.2); Basophils Percent Auto 1.1 % (0-2); Eosinophils Absolute Auto 0.2 X10*3/uL (0.0-0.4); Eosinophils Percent Auto 1.7 % (0-4); Imm Gran Abs Auto 0.03 X10*3/uL (0.00-0.03); Imm Gran Pct Auto 0.3 % (0.0-0.4); Lymphocytes Percent Auto 10.8 % (20-40); MANUAL DIFF FLAG SCAN; Mean Corpuscular HGB Conc 32.1 g/dl (31.0-36.0); Mean Corpuscular Hemoglobin 27.7 pg (27.0-33.0); Mean Corpuscular Volume 86.2 fL (80.0-98.0); Mean Platelet Volume 9.9 fL (9.4-12.4); Monocytes Absolute Auto 1.5 X10*3/uL (0.1-1.2); Monocytes Percent Auto 16.6 % (2-11); Neutrophils Absolute Auto 6.3 x10*3/uL (2.0-8.3); Neutrophils Percent Auto 69.5 % (45-73); Platelet Count 296 X10*3/uL (160-400); Red Blood Count 2.24 X10*6/uL (4.60-5.80); Red Cell Distribution Width 15.6 % (11.0-16.0); SCAN SMEAR FLAG 1; White Blood Count 9.1 X10*3/uL (4.8-10.8)
[2022-10-10 20:00] LABS: Hematocrit 19.3 % (42.0-52.0); NRBC Pct Auto 3.4 /100WBC (0.0-0.2)
[2022-10-10 20:02] LABS: Hemoglobin 6.2 g/dl (14.0-18.0)
[2022-10-10 20:07] LABS: SLIDE REVIEW VERIFIED
[2022-10-10] MEDS: Lidocaine 4 % Patch ADH..PATCH 1 PATCH TRANSDERMA (23:55)
[2022-10-10] MEDS: traMADoL HCL 50 MG TABLET PO (23:56)
[2022-10-11] VITALS (11 sets, daily range): BP systolic 82–117; BP diastolic 47–60; PULSE 74–91; RESP 14–20; TEMP 36.3–37.6; O2SAT 95–100
[2022-10-11] MEDS: HYDROmorphone HCl 0.5 MG/0.5 ML SYRINGE IVPUSH (04:16)
[2022-10-11] MEDS: Levothyroxine Sodium 150 MCG TABLET PO (04:42)
--- NOTE | 2022-10-11 04:58 | PM.EVENT ---
Event Note Date of Service: 10/11/22 Event Note: patient has significant back pain in the lumbar region with no weakness in the lower extremities no numbness or tingling. He is describing the pain 04/18, with no history of back pain. given the LP will obtain CT scan Time Spent With Patient Time: Total time managing care of this patient today ____ minutes.
[2022-10-11 06:00] LABS: MANUAL DIFF FLAG NO
[2022-10-11 06:03] LABS: Basophils Absolute Auto 0.1 X10*3/uL (0.0-0.2); Eosinophils Absolute Auto 0.3 X10*3/uL (0.0-0.4); Eosinophils Percent Auto 2.6 % (0-4); Imm Gran Abs Auto 0.06 X10*3/uL (0.00-0.03); Imm Gran Pct Auto 0.6 % (0.0-0.4); Lymphocytes Percent Auto 10.4 % (20-40); Mean Corpuscular Hemoglobin 27.8 pg (27.0-33.0); Mean Corpuscular Volume 86.8 fL (80.0-98.0); Mean Platelet Volume 10.3 fL (9.4-12.4); Monocytes Absolute Auto 1.4 X10*3/uL (0.1-1.2); Monocytes Percent Auto 14.2 % (2-11); Neutrophils Absolute Auto 7.1 x10*3/uL (2.0-8.3); Neutrophils Percent Auto 71.2 % (45-73); Platelet Count 307 X10*3/uL (160-400); Red Blood Count 2.88 X10*6/uL (4.60-5.80); Red Cell Distribution Width 15.2 % (11.0-16.0)
[2022-10-11 06:11] LABS: NRBC Pct Auto 3.4 /100WBC (0.0-0.2)
[2022-10-11 06:40] LABS: Anion Gap 11 (12-20); Blood Urea Nitrogen 23 mg/dL (9-16); Calcium 7.7 mg/dL (8.4-10.2); Carbon Dioxide 29 mmol/L (22-29); Chloride 104 mmol/L (96-108); Creatinine Clr Calc Pharmacy 113.8; Estimated Glomerular Filt Rate > 60; Glucose Random 92 mg/dL (60-115); Potassium 3.8 mmol/L (3.3-5.1); Sodium 140 mmol/L (135-145)
[2022-10-11] MEDS: Pantoprazole Sodium 40 MG/10 ML VIAL IVPUSH ×2 (06:49→16:56)
[2022-10-11] MEDS: 0.9 % Sodium Chloride Flush 3 ML SYRINGE IVFLUSH ×2 (07:32→16:58)
[2022-10-11] MEDS: Lidocaine 4 % Patch ADH..PATCH 1 PATCH TRANSDERMA ×2 (07:32→23:12)
[2022-10-11] MEDS: Acetaminophen 325 MG TABLET 650 MG PO (07:43)
[2022-10-11 07:52] LABS: Alanine Aminotransferase < 6 U/L (0-40); Albumin Level 2.9 g/dL (3.5-5.0); Alkaline Phosphatase 53 U/L (39-117); Aspartate Amino Transferase 11 U/L (5-37); Bilirubin Direct 0.2 mg/dL (0.0-0.5); Bilirubin Total 4.2 mg/dL (0.0-1.0); Lipase 26 U/L (8-78); Total Protein 4.7 g/dL (6.5-8.0)
--- NOTE | 2022-10-11 08:21 | MHC.CM.PN ---
CM met with Patient at bedside. 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 Home with new VNA VS STR pending PT eval is the tentative plan and CM has initiated and will follow for dc planning. Patient has received Covid vax x4 and his PCP is Dr. Yesica Kay.
[2022-10-11] MEDS: oxyCODONE HCl Immed Release 5 MG TABLET PO (09:26)
--- NOTE | 2022-10-11 09:26 | HO.PM.IMPN ---
Subjective Subjective Date of Service: 10/11/22 Interval History: weakness, back pain Physical Exam Vital Signs: Vital Signs: Last Vital Signs Temp 97.4 F 10/11/22 07:42 Pulse 77 10/11/22 07:42 Resp 16 10/11/22 07:42 BP 92/53 L 10/11/22 07:42 Pulse Ox 99 10/11/22 07:42 O2 Del Method Nasal Cannula 10/11/22 07:42 O2 Flow Rate 1 10/11/22 07:42 BMI result Body Mass Index 20.2 pale, frail, ill appearing Objective Data Active Medications Acetaminophen (Acetaminophen 325 Mg Tablet) 650 mg PO Q6H PRN PRN Reason: Pain, Mild (Pain Scale 1-3) Last Admin: 10/11/22 07:43 Dose: 650 mg Documented By: CHAVEZ Docusate Sodium (Docusate Sodium 100 Mg Capsule) 100 mg PO DAILY PRN PRN Reason: Constipation Furosemide (Furosemide 20 Mg Tablet) 60 mg PO DAILY [facility]; Protocol Furosemide (Furosemide 40 Mg Tablet) 40 mg PO DAILY@1700 [facility]; Protocol Levothyroxine Sodium (Levothyroxine Sodium 150 Mcg Tablet) 150 mcg PO DAILY@0600 [facility] Last Admin: 10/11/22 04:42 Dose: 150 mcg Documented By: JACOBO Lidocaine (Lidocaine 4 % Patch Adh..Patch) 1 patch TRANSDERMA DAILY [facility]; Protocol Last Admin: 10/11/22 07:32 Dose: 1 patch Documented By: CHAVEZ Meclizine HCl (Meclizine Hcl 25 Mg Tablet) 25 mg PO TID PRN PRN Reason: dizziness Non-Formulary Medication (Eplerenone [Inspra]) 25 mg PO DAILY [facility] Non-Formulary Medication (Ivabradine [Corlanor]) 5 mg PO BIDWM [facility] Ondansetron HCl (Ondansetron Hcl 4 Mg/2 Ml Vial) 4 mg IVPUSH Q8H PRN PRN Reason: Nausea and Vomiting Oxycodone HCl (Oxycodone Hcl Immed Release 5 Mg Tablet) 5 mg PO Q6H PRN PRN Reason: moderate pain Pantoprazole Sodium (Pantoprazole Sodium 40 Mg/10 Ml Vial) 40 mg IVPUSH BID@0630,1630 [facility] Last Admin: 10/11/22 06:49 Dose: 40 mg Documented By: JACOBO Pharmacy Consult (Consult Rx Perform Med Rec) 1 each MISCELLANE ONCE PRN PRN Reason: Consult order Sodium Chloride (0.9 % Sodium Chloride Flush 3 Ml Syringe) 3 ml IVFLUSH QSHIFT [facility] Last Admin: 10/11/22 07:32 Dose: 3 ml Documented By: CHAVEZ Labs 10/11/22 05:26 10/11/22 05:26 Labs: Laboratory Results - last 24 hr 10/10/22 10/10/22 10/10/22 09:18 09:18 09:18 MCV MCH MCHC RDW Plt Count MPV Immature Gran % (Auto) Neut % (Auto) Lymph % (Auto) Patrick % (Auto) Eos % (Auto) Baso % (Auto) Lymph # (Auto) Patrick # (Auto) Eos # (Auto) Baso # (Auto) Abs Immat Gran (auto) Absolute Neuts (auto) Absolute Nucleated RBC Nucleated RBC % (auto) Smear Tech's Comments Smear Path Review PT INR APTT Anion Gap 15 Estim Creat Clear Calc 82.2 Estimated GFR > 60 Random Glucose 93 Calcium 8.7 Iron 14 L TIBC 306 % Saturation 5 L Unsat Iron Binding 292 Ferritin 15 L Total Bilirubin 0.6 Direct Bilirubin 0.2 AST 17 ALT 10 Alkaline Phosphatase 64 Lactate Dehydrogenase 217 Troponin I High Sens < 3.5 D Total Protein 5.9 L Albumin 3.7 Lipase Urine Color Urine Appearance Urine pH Ur Specific [place] Urine Protein Urine Glucose (UA) Urine Ketones Urine Blood Urine Nitrite Ur Leukocyte Esterase CSF Tube Number CSF Volume CSF Appearance CSF Color CSF WBC CSF RBC CSF Lymphocytes CSF Monocytes % CSF Appearance (b) CSF Glucose CSF Total Protein COVID-19 (SHANICE) Negative COVID-19 Clin Com See Note Blood Type Antibody Screen Crossmatch 10/10/22 10/10/22 10/10/22 09:18 09:19 09:41 MCV 83.1 MCH 25.6 L MCHC 30.8 L RDW 14.9 Plt Count 390 MPV 9.9 Immature Gran % (Auto) 0.6 H Neut % (Auto) 82.8 H Lymph % (Auto) 5.4 L Patrick % (Auto) 10.3 Eos % (Auto) 0.1 Baso % (Auto) 0.8 Lymph # (Auto) 0.7 L Patrick # (Auto) 1.4 H Eos # (Auto) 0.0 Baso # (Auto) 0.1 Abs Immat Gran (auto) 0.08 H Absolute Neuts (auto) 11.0 H Absolute Nucleated RBC 0.240 H Nucleated RBC % (auto) 1.8 H Smear Tech's Comments Smear Path Review SEE NOTE PT 24.9 H INR 2.1 H APTT 54.1 H Anion Gap Estim Creat Clear Calc Estimated GFR Random Glucose Calcium Iron TIBC % Saturation Unsat Iron Binding Ferritin Total Bilirubin Direct Bilirubin AST ALT Alkaline Phosphatase Lactate Dehydrogenase Troponin I High Sens Total Protein Albumin Lipase Urine Color Yellow Urine Appearance Clear Urine pH 7.5 Ur Specific [place] 1.010 Urine Protein Negative Urine Glucose (UA) Negative Urine Ketones Negative Urine Blood Negative Urine Nitrite Negative Ur Leukocyte Esterase Negative CSF Tube Number CSF Volume CSF Appearance CSF Color CSF WBC CSF RBC CSF Lymphocytes CSF Monocytes % CSF Appearance (b) CSF Glucose CSF Total Protein COVID-19 (SHANICE) COVID-[employer] Com Blood Type Antibody Screen Crossmatch 10/10/22 10/10/22 10/10/22 10:37 11:52 11:52 MCV MCH MCHC RDW Plt Count MPV Immature Gran % (Auto) Neut % (Auto) Lymph % (Auto) Patrick % (Auto) Eos % (Auto) Baso % (Auto) Lymph # (Auto) Patrick # (Auto) Eos # (Auto) Baso # (Auto) Abs Immat Gran (auto) Absolute Neuts (auto) Absolute Nucleated RBC Nucleated RBC % (auto) Smear Tech's Comments Smear Path Review PT INR APTT Anion Gap Estim Creat Clear Calc Estimated GFR Random Glucose Calcium Iron TIBC % Saturation Unsat Iron Binding Ferritin Total Bilirubin Direct Bilirubin AST ALT Alkaline Phosphatase Lactate Dehydrogenase Troponin I High Sens Total Protein Albumin Lipase Urine Color Urine Appearance Urine pH Ur Specific [place] Urine Protein Urine Glucose (UA) Urine Ketones Urine Blood Urine Nitrite Ur Leukocyte Esterase CSF Tube Number 1 1 CSF Volume 0.5 CSF Appearance CLEAR CSF Color COLORLESS CSF WBC 1 CSF RBC 0 CSF Lymphocytes CSF Monocytes % 100 CSF Appearance (b) Clear, Colorless CSF Glucose 62 CSF Total Protein 28.5 COVID-19 (SHANICE) COVID-19 [employer] Com Blood Type A Positive Antibody Screen NEGATIVE Crossmatch See Detail 10/10/22 10/10/22 10/11/22 11:52 19:24 05:26 MCV 86.2 86.8 MCH 27.7 27.8 MCHC 32.1 32.0 RDW 15.6 15.2 Plt Count 296 307 MPV 9.9 10.3 Immature Gran % (Auto) 0.3 0.6 H Neut % (Auto) 69.5 71.2 Lymph % (Auto) 10.8 L 10.4 L Patrick % (Auto) 16.6 H 14.2 H Eos % (Auto) 1.7 2.6 Baso % (Auto) 1.1 1.0 Lymph # (Auto) 1.0 L 1.0 L Patrick # (Auto) 1.5 H 1.4 H Eos # (Auto) 0.2 0.3 Baso # (Auto) 0.1 0.1 Abs Immat Gran (auto) 0.03 0.06 H Absolute Neuts (auto) 6.3 7.1 Absolute Nucleated RBC 0.310 H 0.340 H Nucleated RBC % (auto) 3.4 H 3.4 H Smear Tech's Comments VERIFIED Smear Path Review PT INR APTT Anion Gap Estim Creat Clear Calc Estimated GFR Random Glucose Calcium Iron TIBC % Saturation Unsat Iron Binding Ferritin Total Bilirubin Direct Bilirubin AST ALT Alkaline Phosphatase Lactate Dehydrogenase Troponin I High Sens Total Protein Albumin Lipase Urine Color Urine Appearance Urine pH Ur Specific [place] Urine Protein Urine Glucose (UA) Urine Ketones Urine Blood Urine Nitrite Ur Leukocyte Esterase CSF Tube Number 4 CSF Volume 0.5 CSF Appearance CLEAR CSF Color COLORLESS CSF WBC 1 CSF RBC 0 CSF Lymphocytes 100 CSF Monocytes % CSF Appearance (b) CSF Glucose CSF Total Protein COVID-19 (SHANICE) COVID-19 Clin Com Blood Type Antibody Screen Crossmatch 10/11/22 05:26 MCV MCH MCHC RDW Plt Count MPV Immature Gran % (Auto) Neut % (Auto) Lymph % (Auto) Patrick % (Auto) Eos % (Auto) Baso % (Auto) Lymph # (Auto) Patrick # (Auto) Eos # (Auto) Baso # (Auto) Abs Immat Gran (auto) Absolute Neuts (auto) Absolute Nucleated RBC Nucleated RBC % (auto) Smear Tech's Comments Smear Path Review PT INR APTT Anion Gap 11 L Estim Creat Clear Calc 113.8 Estimated GFR > 60 Random Glucose 92 Calcium 7.7 L D Iron TIBC % Saturation Unsat Iron Binding Ferritin Total Bilirubin 4.2 H Direct Bilirubin 0.2 AST 11 ALT < 6 Alkaline Phosphatase 53 Lactate Dehydrogenase Troponin I High Sens Total Protein 4.7 L Albumin 2.9 L Lipase 26 Urine Color Urine Appearance Urine pH Ur Specific [place] Urine Protein Urine Glucose (UA) Urine Ketones Urine Blood Urine Nitrite Ur Leukocyte Esterase CSF Tube Number CSF Volume CSF Appearance CSF Color CSF WBC CSF RBC CSF Lymphocytes CSF Monocytes % CSF Appearance (b) CSF Glucose CSF Total Protein COVID-19 (SHANICE) COVID-19 Clin Com Blood Type Antibody Screen Crossmatch Microbiology Microbiology Results: Microbiology 10/10/22 11:52 Gram Stain - Final Cerebrospinal Fluid CSF Examination - Final Fluid Description - Final CSF Culture - Preliminary No growth after 1 day Assessment and Plan (1) Headache: Status: Acute Plan 61M PMH Hodgkin's lymphoma currently in remission, nonischemic cardiomyopathy, HFrEF, history PE/DVT on Eliquis, chronic normocytic anemia, paroxysmal atrial fibrillation anticoagulated with Eliquis w/ AICD in place, hypothyroidism, mj syndrome, osteoporosis, and history of TIA, presented with headache, admitted for acute on chronic symptomatic anemia. Acute on chronic iron deficiency anemia likely related to blood loss from eliquis use. Holding eliquis H/H 5.3/17.2% (last 9.03/08 0.1% on 09/13) Iron 14, ferritin 15, 5% saturation. LDH WNL transfused 2 units. Given 20mg IV lasix between units IV PPI 40mg BID hgb improved appropriately, though some signs of hemolyzing with elevated indirect bili GI eval Follow CBC Acute occipital headache- resolved SAH ruled out with head CT and LP Vertigo/Gait instability ?r/t above Has known chemotherapy related cerebellar dysfunction PT eval paroxysmal atrial fibrillation-rate controlled AICD in place holding Eliquis due to above HFrEF/NICM hypovolemic holding PO diuretics continue corlanor Hypothyroidism levothyroxine Hodgkin lymphoma in remission follows with Dr. Merchant DVT prophylaxis- SCPs due to suspected gi bleed Full code reason for continued hospitalization:anemia, pain and weakness Time Spent With Patient Time: Total time managing care of this patient today ____ minutes. Quality Stroke Does the patient have a stroke diagnosis?: No VTE Prior VTE?: No VTE Risk Level:: Medical - moderate - high VTE Device Contraindication: N/A - Device Ordered VTE Drug Contraindication: Treatment Not Indicated
--- NOTE | 2022-10-11 14:30 | PM.HEMONCCN ---
Subjective - Subjective Chief complaint: Consult for: Anemia. 2. History of Hodgkin lymphoma. Patient: new to practice Consult date: 10/11/22 Requesting Physician: Dre. Primary Care Provider: Yesica Kay MD Medical Summary: DIAGNOSIS: ANEMIA. HPI - Consult Narrative Reason for consult: consult for: anemia. 2. P.E. 3. GI bleeding. Narrative: Enrique Monahan is a 61 year old gentleman,with history of Hodgkin's lymphoma currently in remission, history PE/DVT on Eliquis, chronic normocytic anemia, presenteds to the ED yesterday for evaluation of sudden-onset severe occipital headache that occur while driving in to work. This was associated blurred vision, photophobia, nausea, and vomiting x1 with nonbloody emesis. For the past week he has been experiencing episodes of vertigo for which meclizine was given, and was present this morning associated with headache. He has never had similar headache in past and denies hx migraines. Today, he states he has also been experiencing fatigue, [place], and lightheadedness. No fevers, chills, recent illness, otalgia, tinnitus, change in hearing, palpitations, or chest pain. No abdominal pain, diarrhea, melena, hematochezia, He does report constipation and states last bowel movement was last night and was quite soft but no watery stool. In ED, vital stable though blood pressure is soft at 94/57 on exam. DATA BASE: Leukocytosis of 13.2, RBC 2.07, H/H 5.3/17.2% (9.8/ 30.1% on 09/13). Iron 14, TIBC 306, 5% saturation, ferritin 15. LDH 217. Stool occult blood negative. PT 24.9, INR 2.1, PTT 54.1. Renal function normal, electrolyte levels normal. Trop WNL. UA unremarkable. Head CT negative for any acute intracranial abnormality. Follow-up lumbar puncture performed to further evaluate thunderclap headache. No RBCs. CSF unremarkable overall, gram stain negative, culture pending. CXR showing minimal blunting of the costophrenic angles bilaterally related to scarring vs trace effusions. He received IV morphine with resolution of headache, ondansetron, 1 L IVF, and 2 units packed red blood cells. Review of Systems Review of Systems: General: No fevers, malaise, unintentional weight loss. +fatigue, +generalized weakness HEENT: No blurred vision, diplopia. No sore throat, nasal congestion, rhinorrhea, sinus pain, ear pain Cardiovascular: No chest pain, palpitations, or leg edema Respiratory: +CAM[place]. No wheezing, cough GI: +nausea, +vomiting. No abdominal pain, diarrhea, constipation, melena, hematochezia : No dysuria, hematuria, increased urinary frequency, decreased urinary output MSK: No myalgia, back pain Neuro: No weakness, paresthesias. +vertigo, +lightheadedness Skin: No rashes or lesions [facility] Medical History: nonischemic cardiomyopathy, HFrEF, paroxysmal atrial fibrillation anticoagulated with Eliquis w/ AICD in place, hypothyroidism, mj syndrome. Osteoporosis, chemotherapy related cerebellar dysfunction, and history of TIA Anemia, chronic disease Aortic stenosis, severe Cardiac resynchronization therapy defibrillator (NEONATAL PEDIATRIC NURSE-D) in place (~2013) Cerebellar dysfunction Complete heart block Mj syndrome HFrEF (heart failure with reduced ejection fraction) History of COVID-19 History of TIA (transient ischemic attack) (~12/2018) Hodgkin disease (~1989) Hypotension (arterial) Hypothyroidism Idiopathic thrombocytopenia LBBB (left bundle branch block) [facility] Medical History: Medical History (Last Reviewed 10/10/22 @ 15:03 by IRIS Raphael) Anemia, chronic disease Aortic stenosis, severe Cardiac resynchronization therapy defibrillator (NEONATAL PEDIATRIC NURSE-D) in place Onset Date: ~2013 Cerebellar dysfunction Complete heart block Mj syndrome HFrEF (heart failure with reduced ejection fraction) History of COVID-19 History of TIA (transient ischemic attack) Onset Date: ~12/2018 Hodgkin disease Onset Date: ~1989 Hypotension (arterial) Hypothyroidism Idiopathic thrombocytopenia LBBB (left bundle branch block) Multinodular thyroid NICM (nonischemic cardiomyopathy) Osteoporosis Pulmonary embolism Pulmonary embolism Shortness of breath Tingling of left upper extremity Vitamin D deficiency Family History: Family History (Last Reviewed 10/10/22 @ 15:03 by IRIS Raphael) Father Healthy adult male Mother Bladder cancer Surgical History: Surgical History (Last Reviewed 10/10/22 @ 15:03 by IRIS Raphael) History of appendectomy Onset Date: ~1989 History of cardiac defibrillator placement Onset Date: ~2013 History of cardiac pacemaker Onset Date: ~2013 History of colonoscopy Onset Date: ~2020 History of esophagogastroduodenoscopy (EGD) Onset Date: ~2021 History of hip surgery Onset Date: ~2020 History of splenectomy Onset Date: ~1989 History of thoracentesis Onset Date: ~2019 History of transcatheter aortic valve replacement (TAVR) Onset Date: ~2020 S/P thyroid biopsy Onset Date: ~2021 Social History: Social History (Last Reviewed 10/10/22 @ 15:03 by IRIS Raphael) Living Situation History: Household Members: Significant Other Housing: House Are you a primary foster care social worker to a significant other at home: No Do you presently have visiting nurse or other home services: No Tobacco History: Patient Tobacco Use Status: Never used Tobacco e-Cigarette/Vaping Use: Never Used Second Hand Smoke Exposure: No Advance Directives: Advance Directives Date on File: 05/09/22 Occupation Assessmet: service: Yes Current occupational status: employed Current occupational exposures/hazards: No Home Medications and Allergies Current Medications: Current Medications Acetaminophen (Acetaminophen 325 Mg Tablet) 650 mg PO Q6H PRN PRN Reason: Pain, Mild (Pain Scale 1-3) Last Admin: 10/11/22 07:43 Dose: 650 mg Docusate Sodium (Docusate Sodium 100 Mg Capsule) 100 mg PO DAILY PRN PRN Reason: Constipation Furosemide (Furosemide 20 Mg Tablet) 60 mg PO DAILY [facility]; Protocol Furosemide (Furosemide 40 Mg Tablet) 40 mg PO DAILY@1700 [facility]; Protocol Levothyroxine Sodium (Levothyroxine Sodium 150 Mcg Tablet) 150 mcg PO DAILY@0600 [facility] Last Admin: 10/11/22 04:42 Dose: 150 mcg Lidocaine (Lidocaine 4 % Patch Adh..Patch) 1 patch TRANSDERMA DAILY [facility]; Protocol Last Admin: 10/11/22 07:32 Dose: 1 patch Meclizine HCl (Meclizine Hcl 25 Mg Tablet) 25 mg PO TID PRN PRN Reason: dizziness Patient Own Med ( Ivabradine [Corlanor ] 5 Mg Tablet) 5 mg PO BIDWM [facility] Ondansetron HCl (Ondansetron Hcl 4 Mg/2 Ml Vial) 4 mg IVPUSH Q8H PRN PRN Reason: Nausea and Vomiting Oxycodone HCl (Oxycodone Hcl Immed Release 5 Mg Tablet) 5 mg PO Q6H PRN PRN Reason: moderate pain Last Admin: 10/11/22 09:26 Dose: 5 mg Pantoprazole Sodium (Pantoprazole Sodium 40 Mg/10 Ml Vial) 40 mg IVPUSH BID@0630,1630 [facility] Last Admin: 10/11/22 06:49 Dose: 40 mg Pharmacy Consult (Consult Rx Perform Med Rec) 1 each MISCELLANE ONCE PRN PRN Reason: Consult order Sodium Chloride (0.9 % Sodium Chloride Flush 3 Ml Syringe) 3 ml IVFLUSH QSHIFT [facility] Last Admin: 10/11/22 07:32 Dose: 3 ml Home Medications Medication Instructions Recorded Confirmed Type furosemide 20 mg tablet 40 mg PO DAILY@1700 06/28/22 10/10/22 History furosemide 20 mg tablet (Lasix) 60 mg PO DAILY 06/28/22 10/10/22 History levothyroxine 150 mcg tablet 150 mcg PO DAILY@0600 09/13/22 10/10/22 History Allergies Allergy/AdvReac Type Severity Reaction Status Date / Time No Known Allergies Allergy Verified 10/04/22 10:14 [No Known Allergies*] Physical Exam Vital signs: Vital Signs Temp 98.4 F 10/11/22 11:41 Pulse 91 10/11/22 11:41 Resp 16 10/11/22 11:41 BP 100/60 10/11/22 11:41 Pulse Ox 97 10/11/22 11:41 O2 Del Method Nasal Cannula 10/11/22 11:41 O2 Flow Rate 1 10/11/22 11:41 Intake & Output 10/10/22 10/11/22 10/11/22 18:59 06:59 18:59 Intake Total 2682.35 / 3682.35 1000 / 3682.35 220 / 220 Output Total 400 / 400 800 / 800 Balance 2682.35 / 3282.35 600 / 3282.35 -580 / -580 Urine Output (Average ml/kg/hr) 0.51 1.01 Intake: Intake, Oral Amount 300 / 300 220 / 220 Intake (Blood Product) Amount 700 / 1400 700 / 1400 Red Blood Cells (E0382) Unit 350 / 350 [id number] Red Blood Cells (E0382) Unit 350 / 350 [id number] Red Blood Cells (E0382) Unit 350 / 350 [id number] Red Blood Cells (E0382) Unit 350 / 350 [id number] Intake, IV Amount 0.9 % Sodium Chloride 1,000 ml @ 999 mls/hr IV .Q1H1M [facility] Rx#: [id number] Output: Output, Urine Amount 400 / 400 800 / 800 Other: NPO Npo Breakfast % Eaten 0% Lunch % Eaten 50% Urine Urinal Urine Color Yellow Yellow Last Bowel Movement 10/09/22 10/09/22 Weight 65.771 kg Weight 65.771 kg Hem/Onc Consult Result - Labs CBC & Chem 7: 10/14/22 05:27 10/13/22 05:36 Labs: Short CBC 10/10/22 10/11/22 Range/Units 19:24 05:26 WBC 9.1 10.0 (4.8-10.8) X10*3/uL Hgb 6.2 L* 8.0 L D (14.0-18.0) g/dl Hct 19.3 L* 25.0 L D (42.0-52.0) % Plt Count 296 307 (160-400) X10*3/uL BMP 10/11/22 05:26 Sodium 140 Potassium 3.8 Chloride 104 Carbon Dioxide 29 BUN 23 H Creatinine 0.65 Calcium 7.7 L D Liver Function 10/11/22 Range/Units 05:26 Total Bilirubin 4.2 H (0.0-1.0) mg/dL Direct Bilirubin 0.2 (0.0-0.5) mg/dL AST 11 (5-37) U/L ALT < 6 (0-40) U/L Alkaline Phosphatase 53 (39-117) U/L Albumin 2.9 L (3.5-5.0) g/dL Assessment and Plan Patient Active problem list reviewed?: Yes (1) Anemia Status: Acute Assessment and plan: 61 year old gentleman, with PMH Hodgkin's lymphoma currently in remission, history PE/DVT on Eliquis, chronic normocytic anemia, nonischemic cardiomyopathy, HFrEF, paroxysmal atrial fibrillation anticoagulated with Eliquis w/ AICD in place, hypothyroidism, mj syndrome, osteoporosis, and history of TIA. He had presented with headache. Noted to have acute on chronic symptomatic anemia. H/H 5.3/17.2% (last 9.8/30 0.1% on 09/13) Iron 14, ferritin 15, 5% saturation. LDH WNL DIFFERENTIAL DIAGNOSIS: 1. IRON DEFICIENCY ANEMIA:This is most likely related to blood loss from eliquis use. He has had guaiac-positive stools. His iron studies are consistent with this. He has history of gastric ulcer and [place] syndrome. Other concern would be malignancy: Gastric vs colonic. 2. ANEMIA OF CHRONIC DISEASE: This can coexist. He has mild kidney disease. 3. B12/FOLATE DEFICIENCY: Is a possibility. 4. HEMOLYTIC ANEMIA: Is in the differential. 5. UNDERLYING MYELO INFILTRATIVE DISORDER: MDS versus multiple myeloma versus lymphoma. Less likely. PLAN: Eliquis is on hold. He has been transfused with 2 units. He is on IV PPI 40mg BID. His hgb did come up. He will be undergoing a GI evaluation. He is scheduled for upper endoscopy tomorrow by Dr. Leal. Meanwhile will continue to monitor, his blood count carefully. Thank you for the consult, I will follow along with you, Cc: Addendum: EGD revealed: 10 cm gastric ulcer. path: c/w adenocarcinoma. Will proceed with further staging. Surgical consult. (2) Hodgkin disease Problem details: (dx 11/1989 Lt supraclavicular node, recurrence 1994 Rt inguinal, - s/p chemo ABVD & XRT) Status: Acute Assessment and plan: 61 year-old gentleman with history of Hodgkin's Lymphoma diagnosed in 1989. He had disease recurrence in 1994, for which he had systemic chemotherapy until April 1996. He is clinically in remission and doing fairly well, for a long time. He was recently admitted with ITP. He has a Normal exam and blood work. LDH: 226. He had a CTA of the chest done on 03/06/2022 which revealed: 1. Regions of heterogeneous opacity in the paramediastinal mid to upper lungs. Correlation with patient history is recommended, as this appearance can be seen as sequelae of prior mediastinal radiation therapy. Post inflammatory/infectious scarring is also a possibility. No additional significant consolidation identified. 2. Small pleural effusions, left greater than right. Redemonstrated pleural thickening at the right base with adjacent atelectasis. 3. Pericardial calcification, without significant pericardial effusion. - Time Spent With Patient Time Spent with Patient (in minutes): 30
--- NOTE | 2022-10-11 16:15 | PM.EVENT ---
Event Note Date of Service: 10/11/22 Event Note: GI consult dictated EGD planned for 10/12 to f/u on gastric ulcer and dennis. Pt aware of risks and benefits and agrees to proceed. Time Spent With Patient Time: Total time managing care of this patient today ____ minutes.
--- NOTE | 2022-10-11 20:32 | PC.NURSE ---
at 18:30 pt requested RN, stated that he needs his Lasix today ,stated that he feels sob , BP 97/56 oxygen saturation 98%. message was sent to DR Oh regarding pt symptoms and request . DR Oh stated that Lasix was hold d/t hypovolemia and hypotension . Message was delivered to the patient and patient is upset now . Requested fractionation supervisor at the bedside , Alice nursing fractionation supervisor was notified
--- NOTE | 2022-10-11 20:54 | PM.EVENT ---
Event Note Date of Service: 10/11/22 Event Note: pt concerned about his lasix being held and wpould like it resumed as he is feeling SOB and orthopnea. After reviewing chart, pt did receive 4 units of PRBC predisposing him to volume overload. will resume his lasix. will obtain BNP and cxr. did explain to pt that his bp is soft, and states that that is chronic Time Spent With Patient Time: Total time managing care of this patient today ____ minutes.
[2022-10-11] MEDS: Furosemide 40 MG TABLET PO (21:03)
[2022-10-12] VITALS (14 sets, daily range): BP systolic 86–101; BP diastolic 46–56; PULSE 75–84; RESP 14–20; TEMP 36.3–37.4; O2SAT 93–99
[2022-10-12 00:10] LABS: B Type Natriuretic Peptide 201 pg/mL (<100)
[2022-10-12] MEDS: 0.9 % Sodium Chloride Flush 3 ML SYRINGE IVFLUSH ×4 (01:02→20:22)
[2022-10-12] MEDS: traZODone HCL 50 MG TABLET PO (01:40)
--- NOTE | 2022-10-12 02:00 | CONS_ITS ---
DATE OF SERVICE: 10/11/2022 REFERRING PHYSICIAN: IRIS Raphael REASON FOR CONSULTATION: Iron deficiency anemia. HISTORY OF PRESENT ILLNESS: The patient is a pleasant 61-year-old man, known to me from prior evaluation. He was admitted to the hospital after presenting to the emergency room with vertigo and headaches. He was evaluated in the emergency department and found to be anemic with a hematocrit on admission of 17.2. He was given 2 units of packed red blood cells in transfusion with good improvement in his hematocrit to 25. Iron studies were obtained, which documented a saturation of 5% and a ferritin of 15. His most recent hematocrit on September 13 was 30.1. The patient does have a history of prior gastric ulcer and underwent endoscopy on November 19, which did not document the definite source for bleeding. He subsequently had a followup endoscopy on November 19 with a bleeding source being identified. This was an ulcer high up on the body, on the anterior wall with a visible vessel. This was treated with epinephrine and gold probe cautery and followup endoscopy was planned to assess for healing, but this was not done. He did take omeprazole for about 3 months and then stopped this because of concerns for osteoporosis. He has had some recent upper GI symptoms and did vomit the other day in his car, but had no hematemesis. He reports no melena. 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 He has had a pulmonary embolism, requiring re-anticoagulation with Eliquis and his last dose was Monday morning, but he vomited this, so his last absorb dose was Monday night. He has been off it since. PAST MEDICAL HISTORY: 1. Anemia. 2. Aortic stenosis, status post TAVR. 3. Val syndrome. 4. Heart failure with reduced ejection fraction. 5. TIA. 6. Cerebellar dysfunction. 7. Hypothyroidism. 8. ITP. 9. Nonischemic cardiomyopathy. 10. Vitamin D deficiency. PAST SURGICAL HISTORY: Includes: 1. Appendectomy. 2. Defibrillator placement/pacemaker. 3. Colonoscopy. 4. Upper endoscopy with gastric ulcer as above. 5. Hip surgery. 6. Splenectomy. 7. Thoracentesis. 8. TAVR. 9. Thyroid biopsy. CURRENT MEDICATIONS: His current medication list is reviewed in the chart. ALLERGIES: THERE ARE NONE REPORTED. FAMILY HISTORY: This is reviewed with the patient and is noncontributory. SOCIAL HISTORY: There is no current tobacco, alcohol, or substance abuse. REVIEW OF SYSTEMS: SKIN: No pruritus. HEENT: Negative. CARDIOPULMONARY: He denies shortness of breath or chest pain. GASTROINTESTINAL: As above. GENITOURINARY: Negative. NEUROPSYCHIATRIC: Negative. PHYSICAL EXAMINATION: GENERAL: Shows a pleasant male, lying comfortably in bed. VITAL SIGNS: Reviewed in the electronic medical record. SKIN: Anicteric. HEENT: Shows no scleral icterus. NECK: Without lymphadenopathy or thyromegaly. LUNGS: Clear. HEART: Shows a regular rate and rhythm. S1 and S2. No murmur. ABDOMEN: Soft without focal masses or tenderness. Bowel sounds are present. No organomegaly is noted. EXTREMITIES: Without edema. LABORATORY DATA AND IMAGING STUDIES: Reviewed. IMPRESSION: Iron deficiency anemia. I discussed upper endoscopy with him for further evaluation of his history of gastric ulcer, iron deficiency anemia, and recent upper gastrointestinal symptoms including nonbloody vomiting. This will be arranged for tomorrow. He understands risks and benefits and agrees to proceed. He does not appear to have any active bleeding at this time and will need to be restarted on iron. He may need small bowel capsule endoscopy at some point to assess for any evidence of small-bowel, blood loss, although stools have remained Hemoccult negative. Thanks for asking me to see him. I will follow him in the hospital with you. MD ELLYN Andersen/LETICIA / [phone]
[2022-10-12 06:20] LABS: Hematocrit 26.3 % (42.0-52.0); Hemoglobin 8.2 g/dl (14.0-18.0); Mean Corpuscular HGB Conc 31.2 g/dl (31.0-36.0); Mean Corpuscular Hemoglobin 27.5 pg (27.0-33.0); Mean Corpuscular Volume 88.3 fL (80.0-98.0); Mean Platelet Volume 10.4 fL (9.4-12.4); Platelet Count 314 X10*3/uL (160-400); Red Blood Count 2.98 X10*6/uL (4.60-5.80); Red Cell Distribution Width 15.9 % (11.0-16.0); White Blood Count 10.2 X10*3/uL (4.8-10.8)
[2022-10-12] MEDS: Levothyroxine Sodium 150 MCG TABLET PO (06:21)
[2022-10-12] MEDS: Pantoprazole Sodium 40 MG/10 ML VIAL IVPUSH ×2 (06:22→16:41)
[2022-10-12 06:25] LABS: NRBC Pct Auto 4.2 /100WBC (0.0-0.2)
[2022-10-12 06:40] LABS: Anion Gap 12 (12-20); Blood Urea Nitrogen 13 mg/dL (9-16); Calcium 7.9 mg/dL (8.4-10.2); Carbon Dioxide 29 mmol/L (22-29); Chloride 103 mmol/L (96-108); Creatinine Clr Calc Pharmacy 115.6; Estimated Glomerular Filt Rate > 60; Glucose Fasting 85 mg/dL (60-99); Potassium 3.5 mmol/L (3.3-5.1); Sodium 140 mmol/L (135-145)
[2022-10-12] MEDS: Lidocaine 4 % Patch ADH..PATCH 1 PATCH TRANSDERMA (08:05)
--- NOTE | 2022-10-12 10:11 | MHC.CM.PN ---
Per ROUNDS discussion, Patient is getting an EGD today and is not yet medically cleared for dc. Home vs STR pending PT eval is the tentative plan and CM will continue to follow.
[2022-10-12] MEDS: oxyCODONE HCl Immed Release 5 MG TABLET PO (10:48)
--- NOTE | 2022-10-12 11:22 | HO.PM.IMPN ---
Subjective Subjective Date of Service: 10/12/22 Interval History: weakness, back pain Review of Systems General: No fevers, malaise, unintentional weight loss. +fatigue, +generalized weakness HEENT: No blurred vision, diplopia. No sore throat, nasal congestion, rhinorrhea, sinus pain, ear pain Cardiovascular: No chest pain, palpitations, or leg edema Respiratory: +[place]. No wheezing, cough GI: +nausea, +vomiting. No abdominal pain, diarrhea, constipation, melena, hematochezia : No dysuria, hematuria, increased urinary frequency, decreased urinary output MSK: No myalgia, back pain Neuro: No weakness, paresthesias. +vertigo, +lightheadedness Skin: No rashes or lesions Physical Exam Vital Signs: Vital Signs: Last Vital Signs Temp 97.7 F 10/12/22 07:29 Pulse 78 10/12/22 07:29 Resp 16 10/12/22 07:29 BP 90/46 L 10/12/22 07:29 Pulse Ox 97 10/12/22 07:29 O2 Del Method Nasal Cannula 10/12/22 07:29 O2 Flow Rate 1 10/12/22 03:02 BMI result Body Mass Index 20.2 Objective Data Active Medications Acetaminophen (Acetaminophen 325 Mg Tablet) 650 mg PO Q6H PRN PRN Reason: Pain, Mild (Pain Scale 1-3) Last Admin: 10/11/22 07:43 Dose: 650 mg Documented By: CHAVEZ Docusate Sodium (Docusate Sodium 100 Mg Capsule) 100 mg PO DAILY PRN PRN Reason: Constipation Ferrous Sulfate (Ferrous Sulfate 324 Mg Tablet.) 324 mg PO BIDWM [facility] Furosemide (Furosemide 20 Mg Tablet) 60 mg PO DAILY [facility]; Protocol Furosemide (Furosemide 40 Mg Tablet) 40 mg PO DAILY@1700 [facility]; Protocol Last Admin: 10/11/22 21:03 Dose: 40 mg Documented By: JEFFRY Levothyroxine Sodium (Levothyroxine Sodium 150 Mcg Tablet) 150 mcg PO DAILY@0600 [facility] Last Admin: 10/12/22 06:21 Dose: 150 mcg Documented By: RAMA Lidocaine (Lidocaine 4 % Patch Adh..Patch) 1 patch TRANSDERMA DAILY [facility]; Protocol Last Admin: 10/12/22 08:05 Dose: 1 patch Documented By: CHAVEZ Meclizine HCl (Meclizine Hcl 25 Mg Tablet) 25 mg PO TID PRN PRN Reason: dizziness Patient Own Med ( Ivabradine [Corlanor ] 5 Mg Tablet) 5 mg PO BIDWM [facility] Last Admin: 10/12/22 08:05 Dose: 5 mg Documented By: CHAVEZ Ondansetron HCl (Ondansetron Hcl 4 Mg/2 Ml Vial) 4 mg IVPUSH Q8H PRN PRN Reason: Nausea and Vomiting Oxycodone HCl (Oxycodone Hcl Immed Release 5 Mg Tablet) 5 mg PO Q6H PRN PRN Reason: moderate pain Last Admin: 10/12/22 10:48 Dose: 5 mg Documented By: CHAVEZ Pantoprazole Sodium (Pantoprazole Sodium 40 Mg/10 Ml Vial) 40 mg IVPUSH BID@0630,1630 [facility] Last Admin: 10/12/22 06:22 Dose: 40 mg Documented By: RAMA Pharmacy Consult (Consult Rx Perform Med Rec) 1 each MISCELLANE ONCE PRN PRN Reason: Consult order Sodium Chloride (0.9 % Sodium Chloride Flush 3 Ml Syringe) 3 ml IVFLUSH QSHIFT [facility] Last Admin: 10/12/22 08:05 Dose: 3 ml Documented By: CHAVEZ Labs 10/12/22 05:35 10/12/22 05:35 Labs: Laboratory Results - last 24 hr 10/11/22 10/12/22 10/12/22 23:31 05:35 05:35 MCV 88.3 MCH 27.5 MCHC 31.2 RDW 15.9 Plt Count 314 MPV 10.4 Absolute Nucleated RBC 0.430 H Nucleated RBC % (auto) 4.2 H Anion Gap 12 Estim Creat Clear Calc 115.6 Estimated GFR > 60 Fasting Glucose 85 Calcium 7.9 L B-Natriuretic Peptide 201 H Microbiology Microbiology Results: Microbiology 10/10/22 11:52 Gram Stain - Final Cerebrospinal Fluid CSF Examination - Final Fluid Description - Final CSF Culture - Preliminary No growth after 2 days Assessment and Plan (1) Acute on chronic blood loss anemia: Status: Acute Plan 61M PMH Hodgkin's lymphoma currently in remission, nonischemic cardiomyopathy, HFrEF, history PE/DVT on Eliquis, chronic normocytic anemia, paroxysmal atrial fibrillation anticoagulated with Eliquis w/ AICD in place, hypothyroidism, mj syndrome, osteoporosis, and history of TIA, presented with headache, admitted for acute on chronic symptomatic anemia. Acute on chronic iron deficiency anemia likely related to blood loss from eliquis use. Holding eliquis Hb improved to 8.2 after 2 units transfusion IV PPI 40mg BID Iron supplement GI input appreciated, EGD Follow CBC Acute occipital headache resolved SAH ruled out with head CT and LP Vertigo/Gait instability r/t above Has known chemotherapy related cerebellar dysfunction PT eval paroxysmal atrial fibrillation-rate controlled AICD in place holding Eliquis due to above HFrEF/NICM hypovolemic holding PO diuretics continue corlanor Hypothyroidism levothyroxine Hodgkin lymphoma in remission follows with Dr. Merchant DVT prophylaxis- SCDs due to suspected gi bleed Full code reason for continued hospitalization:anemia, pain and weakness pending EGD Time Spent With Patient Time: Total time managing care of this patient today ____ minutes. Quality Stroke Does the patient have a stroke diagnosis?: No VTE Prior VTE?: No VTE Risk Level:: Medical - moderate - high VTE Device Contraindication: N/A - Device Ordered VTE Drug Contraindication: Treatment Not Indicated
[2022-10-12] MEDS: Lactated Ringers 1,000 ML 50 ML IVCONT (13:42)
--- NOTE | 2022-10-12 13:56 | P.CONAN_ITS ---
HPI - Anesthesia Eval Consult details Narrative: upper endoscopy for anemia PMFSH Active Problems Active Problems: All Active Problems (Updated 10/12/22 @ 11:26 by Jhony Erickson MD) Acute on chronic blood loss anemia (Acute) Headache (Acute) Anemia (Acute) Atrial fibrillation (Acute) Hodgkin disease (Acute ~1989) Cardiac resynchronization therapy defibrillator (MANAGED CARE SPECIALIST-D) in place (Acute ~2013) NICM (nonischemic cardiomyopathy) (Acute) Pulmonary embolism (Acute) History of DVT (deep vein thrombosis) (Acute) Anemia, chronic disease (Acute) Idiopathic thrombocytopenia (Acute) Mantachie syndrome (Acute) Hypothyroidism (Acute) Multinodular thyroid (Acute) Vitamin D deficiency (Acute) Osteoporosis (Acute) Past Medical History Medical History Anemia, chronic disease Aortic stenosis, severe Cardiac resynchronization therapy defibrillator (MANAGED CARE SPECIALIST-D) in place (~2013) Cerebellar dysfunction Complete heart block Mantachie syndrome HFrEF (heart failure with reduced ejection fraction) History of COVID-19 History of TIA (transient ischemic attack) (~12/2018) Hodgkin disease (~1989) Hypotension (arterial) Hypothyroidism Idiopathic thrombocytopenia LBBB (left bundle branch block) Multinodular thyroid NICM (nonischemic cardiomyopathy) Osteoporosis Pulmonary embolism Pulmonary embolism Shortness of breath Tingling of left upper extremity Vitamin D deficiency Family History Family History Father Healthy adult male Mother Bladder cancer Family history of problems with anesthesia: No Surgical History Surgical History History of appendectomy (~1989) History of cardiac defibrillator placement (~2013) History of cardiac pacemaker (~2013) History of colonoscopy (~2020) History of esophagogastroduodenoscopy (EGD) (~2021) History of hip surgery (~2020) History of splenectomy (~1989) History of thoracentesis (~2019) History of transcatheter aortic valve replacement (TAVR) (~2020) S/P thyroid biopsy (~2021) History of Problems with Anesthesia: No Social History Social History Household Members: Significant Other Housing: House Are you a primary patient care to a significant other at home: No Do you presently have visiting nurse or other home services: No Alcohol intake: current Alcohol intake frequency: holidays/special occasions only Alcohol type: beer Patient Tobacco Use Status: Never used Tobacco e-Cigarette/Vaping Use: Never Used Second Hand Smoke Exposure: No Advance Directives Date on File: 05/09/22 service: Yes Current occupational status: employed Current occupational exposures/hazards: No Cognitive needs: No Hearing needs: Yes Vision needs: Yes Meds Allergies Allergy/AdvReac Type Severity Reaction Status Date / Time No Known Allergies Allergy Verified 10/04/22 10:14 [No Known Allergies*] Active Medications: Current Medications Acetaminophen (Acetaminophen 325 Mg Tablet) 650 mg PO Q6H PRN PRN Reason: Pain, Mild (Pain Scale 1-3) Last Admin: 10/11/22 07:43 Dose: 650 mg Docusate Sodium (Docusate Sodium 100 Mg Capsule) 100 mg PO DAILY PRN PRN Reason: Constipation Ferrous Sulfate (Ferrous Sulfate 324 Mg Tablet.Dr) 324 mg PO BIDWM [facility] Furosemide (Furosemide 20 Mg Tablet) 60 mg PO DAILY [facility]; Protocol Furosemide (Furosemide 40 Mg Tablet) 40 mg PO DAILY@1700 [facility]; Protocol Last Admin: 10/11/22 21:03 Dose: 40 mg Lactated Ringer's (Lr) 1,000 mls @ 50 mls/hr IVCONT .Q20H [facility] Last Admin: 10/12/22 13:42 Dose: 50 mls/hr Levothyroxine Sodium (Levothyroxine Sodium 150 Mcg Tablet) 150 mcg PO DAILY@0600 [facility] Last Admin: 10/12/22 06:21 Dose: 150 mcg Lidocaine (Lidocaine 4 % Patch Adh..Patch) 1 patch TRANSDERMA DAILY [facility]; Protocol Last Admin: 10/12/22 08:05 Dose: 1 patch Meclizine HCl (Meclizine Hcl 25 Mg Tablet) 25 mg PO TID PRN PRN Reason: dizziness Patient Own Med ( Ivabradine [Corlanor ] 5 Mg Tablet) 5 mg PO BIDWM [facility] Last Admin: 10/12/22 08:05 Dose: 5 mg Ondansetron HCl (Ondansetron Hcl 4 Mg/2 Ml Vial) 4 mg IVPUSH Q8H PRN PRN Reason: Nausea and Vomiting Oxycodone HCl (Oxycodone Hcl Immed Release 5 Mg Tablet) 5 mg PO Q6H PRN PRN Reason: moderate pain Last Admin: 10/12/22 10:48 Dose: 5 mg Pantoprazole Sodium (Pantoprazole Sodium 40 Mg/10 Ml Vial) 40 mg IVPUSH BID@0630,1630 [facility] Last Admin: 10/12/22 06:22 Dose: 40 mg Pharmacy Consult (Consult Rx Perform Med Rec) 1 each MISCELLANE ONCE PRN PRN Reason: Consult order Sodium Chloride (0.9 % Sodium Chloride Flush 3 Ml Syringe) 3 ml IVFLUSH QSHIFT [facility] Last Admin: 10/12/22 08:05 Dose: 3 ml Home Medications Medication Instructions Recorded Confirmed Last Taken Type furosemide 20 mg tablet 40 mg PO DAILY@1700 06/28/22 10/10/22 10/09/22 History furosemide 20 mg tablet (Lasix) 60 mg PO DAILY 06/28/22 10/10/22 10/10/22 History levothyroxine 150 mcg tablet 150 mcg PO DAILY@0600 09/13/22 10/10/22 10/10/22 History Exam Exam Date and Time: October 12, 2022 1356 Height,Weight and Vital Signs: Height 5 ft 11 in Weight 65.771 kg Last Vital Signs Temp 97.7 F 10/12/22 13:29 Pulse 84 10/12/22 13:29 Resp 16 10/12/22 13:29 BP 97/55 L 10/12/22 13:29 Pulse Ox 97 10/12/22 13:29 O2 Del Method Room Air 10/12/22 13:29 O2 Flow Rate 1 10/12/22 03:02 Pertinent Lab Results Pertinent Lab Results: Laboratory Tests 10/10/22 10/10/22 10/10/22 09:18 09:18 09:18 WBC RBC Hgb Hct MCV MCH MCHC RDW Plt Count MPV Immature Gran % (Auto) Neut % (Auto) Lymph % (Auto) [place] % (Auto) Eos % (Auto) Baso % (Auto) Lymph # (Auto) [place] # (Auto) Eos # (Auto) Baso # (Auto) Abs Immat Gran (auto) Absolute Neuts (auto) Absolute Nucleated RBC Nucleated RBC % (auto) Smear Tech's Comments Smear Path Review PT INR APTT Sodium 137 Potassium 3.7 Chloride 97 Carbon Dioxide 29 Anion Gap 15 BUN 27 H Creatinine 0.90 Estim Creat Clear Calc 82.2 Estimated GFR > 60 Random Glucose 93 Fasting Glucose Calcium 8.7 Iron 14 L TIBC 306 % Saturation 5 L Unsat Iron Binding 292 Ferritin 15 L Total Bilirubin 0.6 Direct Bilirubin 0.2 AST 17 ALT 10 Alkaline Phosphatase 64 Lactate Dehydrogenase 217 Troponin I High Sens < 3.5 D B-Natriuretic Peptide Total Protein 5.9 L Albumin 3.7 Lipase Urine Color Urine Appearance Urine pH Ur Specific [place] Urine Protein Urine Glucose (UA) Urine Ketones Urine Blood Urine Nitrite Ur Leukocyte Esterase CSF Tube Number CSF Volume CSF Appearance CSF Color CSF WBC CSF RBC CSF Lymphocytes CSF Monocytes % CSF Appearance (b) CSF Glucose CSF Total Protein COVID-19 (SHANICE) Negative COVID-19 Clin Com See Note Blood Type Antibody Screen Crossmatch 10/10/22 10/10/22 10/10/22 09:18 09:19 09:41 WBC 13.2 H RBC 2.07 L D Hgb 5.3 L* D Hct 17.2 L* D MCV 83.1 MCH 25.6 L MCHC 30.8 L RDW 14.9 Plt Count 390 MPV 9.9 Immature Gran % (Auto) 0.6 H Neut % (Auto) 82.8 H Lymph % (Auto) 5.4 L [place] % (Auto) 10.3 Eos % (Auto) 0.1 Baso % (Auto) 0.8 Lymph # (Auto) 0.7 L [place] # (Auto) 1.4 H Eos # (Auto) 0.0 Baso # (Auto) 0.1 Abs Immat Gran (auto) 0.08 H Absolute Neuts (auto) 11.0 H Absolute Nucleated RBC 0.240 H Nucleated RBC % (auto) 1.8 H Smear Tech's Comments Smear Path Review SEE NOTE PT 24.9 H INR 2.1 H APTT 54.1 H Sodium Potassium Chloride Carbon Dioxide Anion Gap BUN Creatinine Estim Creat Clear Calc Estimated GFR Random Glucose Fasting Glucose Calcium Iron TIBC % Saturation Unsat Iron Binding Ferritin Total Bilirubin Direct Bilirubin AST ALT Alkaline Phosphatase Lactate Dehydrogenase Troponin I High Sens B-Natriuretic Peptide Total Protein Albumin Lipase Urine Color Yellow Urine Appearance Clear Urine pH 7.5 Ur Specific [place] 1.010 Urine Protein Negative Urine Glucose (UA) Negative Urine Ketones Negative Urine Blood Negative Urine Nitrite Negative Ur Leukocyte Esterase Negative CSF Tube Number CSF Volume CSF Appearance CSF Color CSF WBC CSF RBC CSF Lymphocytes CSF Monocytes % CSF Appearance (b) CSF Glucose CSF Total Protein COVID-19 (SHANICE) COVID-19 Clin Com Blood Type Antibody Screen Crossmatch 10/10/22 10/10/22 10/10/22 10:37 11:52 11:52 WBC RBC Hgb Hct MCV MCH MCHC RDW Plt Count MPV Immature Gran % (Auto) Neut % (Auto) Lymph % (Auto) [place] % (Auto) Eos % (Auto) Baso % (Auto) Lymph # (Auto) [place] # (Auto) Eos # (Auto) Baso # (Auto) Abs Immat Gran (auto) Absolute Neuts (auto) Absolute Nucleated RBC Nucleated RBC % (auto) Smear Tech's Comments Smear Path Review PT INR APTT Sodium Potassium Chloride Carbon Dioxide Anion Gap BUN Creatinine Estim Creat Clear Calc Estimated GFR Random Glucose Fasting Glucose Calcium Iron TIBC % Saturation Unsat Iron Binding Ferritin Total Bilirubin Direct Bilirubin AST ALT Alkaline Phosphatase Lactate Dehydrogenase Troponin I High Sens B-Natriuretic Peptide Total Protein Albumin Lipase Urine Color Urine Appearance Urine pH Ur Specific [place] Urine Protein Urine Glucose (UA) Urine Ketones Urine Blood Urine Nitrite Ur Leukocyte Esterase CSF Tube Number 1 1 CSF Volume 0.5 CSF Appearance CLEAR CSF Color COLORLESS CSF WBC 1 CSF RBC 0 CSF Lymphocytes CSF Monocytes % 100 CSF Appearance (b) Clear, Colorless CSF Glucose 62 CSF Total Protein 28.5 COVID-19 (SHANICE) COVID-19 Clin Com Blood Type A Positive Antibody Screen NEGATIVE Crossmatch See Detail 10/10/22 10/10/22 10/11/22 11:52 19:24 05:26 WBC 9.1 10.0 RBC 2.24 L 2.88 L D Hgb 6.2 L* 8.0 L D Hct 19.3 L* 25.0 L D MCV 86.2 86.8 MCH 27.7 27.8 MCHC 32.1 32.0 RDW 15.6 15.2 Plt Count 296 307 MPV 9.9 10.3 Immature Gran % (Auto) 0.3 0.6 H Neut % (Auto) 69.5 71.2 Lymph % (Auto) 10.8 L 10.4 L [place] % (Auto) 16.6 H 14.2 H Eos % (Auto) 1.7 2.6 Baso % (Auto) 1.1 1.0 Lymph # (Auto) 1.0 L 1.0 L [place] # (Auto) 1.5 H 1.4 H Eos # (Auto) 0.2 0.3 Baso # (Auto) 0.1 0.1 Abs Immat Gran (auto) 0.03 0.06 H Absolute Neuts (auto) 6.3 7.1 Absolute Nucleated RBC 0.310 H 0.340 H Nucleated RBC % (auto) 3.4 H 3.4 H Smear Tech's Comments VERIFIED Smear Path Review PT INR APTT Sodium Potassium Chloride Carbon Dioxide Anion Gap BUN Creatinine Estim Creat Clear Calc Estimated GFR Random Glucose Fasting Glucose Calcium Iron TIBC % Saturation Unsat Iron Binding Ferritin Total Bilirubin Direct Bilirubin AST ALT Alkaline Phosphatase Lactate Dehydrogenase Troponin I High Sens B-Natriuretic Peptide Total Protein Albumin Lipase Urine Color Urine Appearance Urine pH Ur Specific [place] Urine Protein Urine Glucose (UA) Urine Ketones Urine Blood Urine Nitrite Ur Leukocyte Esterase CSF Tube Number 4 CSF Volume 0.5 CSF Appearance CLEAR CSF Color COLORLESS CSF WBC 1 CSF RBC 0 CSF Lymphocytes 100 CSF Monocytes % CSF Appearance (b) CSF Glucose CSF Total Protein COVID-19 (SAHNICE) COVID-19 Clin Com Blood Type Antibody Screen Crossmatch 10/11/22 10/11/22 10/12/22 05:26 23:31 05:35 WBC 10.2 RBC 2.98 L Hgb 8.2 L Hct 26.3 L MCV 88.3 MCH 27.5 MCHC 31.2 RDW 15.9 Plt Count 314 MPV 10.4 Immature Gran % (Auto) Neut % (Auto) Lymph % (Auto) [place] % (Auto) Eos % (Auto) Baso % (Auto) Lymph # (Auto) [place] # (Auto) Eos # (Auto) Baso # (Auto) Abs Immat Gran (auto) Absolute Neuts (auto) Absolute Nucleated RBC 0.430 H Nucleated RBC % (auto) 4.2 H Smear Tech's Comments Smear Path Review PT INR APTT Sodium 140 Potassium 3.8 Chloride 104 Carbon Dioxide 29 Anion Gap 11 L BUN 23 H Creatinine 0.65 Estim Creat Clear Calc 113.8 Estimated GFR > 60 Random Glucose 92 Fasting Glucose Calcium 7.7 L D Iron TIBC % Saturation Unsat Iron Binding Ferritin Total Bilirubin 4.2 H Direct Bilirubin 0.2 AST 11 ALT < 6 Alkaline Phosphatase 53 Lactate Dehydrogenase Troponin I High Sens B-Natriuretic Peptide 201 H Total Protein 4.7 L Albumin 2.9 L Lipase 26 Urine Color Urine Appearance Urine pH Ur Specific [place] Urine Protein Urine Glucose (UA) Urine Ketones Urine Blood Urine Nitrite Ur Leukocyte Esterase CSF Tube Number CSF Volume CSF Appearance CSF Color CSF WBC CSF RBC CSF Lymphocytes CSF Monocytes % CSF Appearance (b) CSF Glucose CSF Total Protein COVID-19 (SHANICE) COVID-19 Clin Com Blood Type Antibody Screen Crossmatch 10/12/22 05:35 WBC RBC Hgb Hct MCV MCH MCHC RDW Plt Count MPV Immature Gran % (Auto) Neut % (Auto) Lymph % (Auto) [place] % (Auto) Eos % (Auto) Baso % (Auto) Lymph # (Auto) [place] # (Auto) Eos # (Auto) Baso # (Auto) Abs Immat Gran (auto) Absolute Neuts (auto) Absolute Nucleated RBC Nucleated RBC % (auto) Smear Tech's Comments Smear Path Review PT INR APTT Sodium 140 Potassium 3.5 Chloride 103 Carbon Dioxide 29 Anion Gap 12 BUN 13 Creatinine 0.64 Estim Creat Clear Calc 115.6 Estimated GFR > 60 Random Glucose Fasting Glucose 85 Calcium 7.9 L Iron TIBC % Saturation Unsat Iron Binding Ferritin Total Bilirubin Direct Bilirubin AST ALT Alkaline Phosphatase Lactate Dehydrogenase Troponin I High Sens B-Natriuretic Peptide Total Protein Albumin Lipase Urine Color Urine Appearance Urine pH Ur Specific [place] Urine Protein Urine Glucose (UA) Urine Ketones Urine Blood Urine Nitrite Ur Leukocyte Esterase CSF Tube Number CSF Volume CSF Appearance CSF Color CSF WBC CSF RBC CSF Lymphocytes CSF Monocytes % CSF Appearance (b) CSF Glucose CSF Total Protein COVID-19 (SHANICE) COVID-19 Clin Com Blood Type Antibody Screen Crossmatch Airway Mallampati Class: II TM Dist: >3cm Neck ROM: Full Loose/Missing/Broken Teeth: No Heart: rr Lungs: cta Assessment and Plan Assessment Anesthesia Assessment: Anesthesia Plan Discussed and Chart Reviewed Final Anesthetic Review Family History of Problems with Anesthesia: No History of Problems with Anesthesia: No NPO: Yes ASA Class: III Final Preanesthetic Review: No Changes in Pt Med Stat, Meds/Allgs Chart Reviewed, Consent Obtained/Reviewed and Anes Risks/Benef Reviewed Patient Risk: Intermediate Procedure Risk: Intermediate Anesthetic Plan Disposition: Standard PACU
--- NOTE | 2022-10-12 14:23 | MHC.SHP ---
Pre-Procedural Eval Section A Date of Service: 10/12/22 The patient is an INPATIENT: Yes Changes since office visit: No Cold of Flu in the past 2 weeks, No New Medical Problems, No Changes in Medication and No Patient answered all questions The History & Physical has been completed within 30 days and I have reviewed it.: Yes Section B Chief Complaint: symptomatic anemia Allergies: Allergies Allergy/AdvReac Type Severity Reaction Status Date / Time No Known Allergies Allergy Verified 10/04/22 10:14 [No Known Allergies*] Plan I have reviewed the history and physical and performed a pertinent physical examination on my patient. No changes have occurred unless specified. Time Spent With Patient Time: Total time managing care of this patient today ____ minutes.
--- NOTE | 2022-10-12 14:47 | P.BOP_ITS ---
Brief Operative Note Date of Service: 10/12/22 Pre-op diagnosis: dennis gastric ulcer Post-op diagnosis: same Procedure: egd/bx Surgeon: London Leal Anesthesia: MAC Was an Charity Fundraiser used for this Procedure?: No Estimated blood loss (mL): 25 Pathology: other Condition: stable Disposition: PACU
--- NOTE | 2022-10-12 14:48 | PM.EVENT ---
Event Note Date of Service: 10/12/22 Event Note: EGD note dictated large 10 cm area of ulceration with heaped up friable mucosa along anterior wall from 45-55 cm. Some oozing but no treatable vessel identified. edges biopsied and antral biopsy taken. rec: advance diet follow hct no anticoagulantion Time Spent With Patient Time: Total time managing care of this patient today ____ minutes.
[2022-10-12 15:04] LABS: VDRL Qualitative CSF Nonreactive (Nonreactive)
[2022-10-12] MEDS: Ferrous Sulfate 324 MG TABLET.DR PO (16:41)
[2022-10-12] MEDS: Furosemide 40 MG TABLET PO (20:21)
[2022-10-13] VITALS (8 sets, daily range): BP systolic 78–117; BP diastolic 46–58; PULSE 60–84; RESP 16–20; TEMP 36.1–37.5; O2SAT 95–99
[2022-10-13] MEDS: oxyCODONE HCl Immed Release 5 MG TABLET PO (01:03)
--- NOTE | 2022-10-13 01:26 | OP_ITS ---
DATE OF SERVICE: 10/12/2022 SURGEON: London Leal MD INDICATIONS: Gastric ulcer and iron-deficiency anemia. PREOPERATIVE DIAGNOSIS: POSTOPERATIVE DIAGNOSIS: PROCEDURE PERFORMED: Upper endoscopy with biopsy. ESTIMATED BLOOD LOSS: COMPLICATIONS: ANESTHESIA: Monitored anesthesia care. ASSISTANTS: SPECIMENS: DESCRIPTION OF PROCEDURE: History and physical performed. The risks and benefits of the procedure were explained to the patient. Informed consent was obtained. The patient was placed in the left lateral decubitus position. The Olympus videogastroscope was introduced into the esophagus, stomach, and duodenum. Examination was performed. The scope was removed. He tolerated the procedure well and was returned to recovery area in stable condition. FINDINGS: Esophagus: The esophagus showed glycogenic acanthosis. Stomach: There was a large area of ulceration, which seemed very superficial with heaped up mucosa around the margins along the anterior wall from 45-55 cm, starting just below the EG junction. There was associated friability and oozing. The area was carefully irrigated and no definite bleeding point that could be treated was identified. Biopsies were obtained from the margin of the ulcer. This appeared to be in the same location as the previously identified gastric ulcer at his last endoscopy. A single antral biopsy was obtained as well. Duodenum: The duodenum appeared clear with some polypoid areas consistent with his history of Val syndrome. There was bile in the duodenum, but no significant old blood. IMPRESSION: Gastric ulcer. RECOMMENDATIONS: 1. Follow up with biopsy results. 2. Monitor hematocrit. 3. Advance diet. 4. Discontinue anticoagulation. London Leal MD BC/MODL / [id number] MTDD
--- NOTE | 2022-10-13 01:44 | PC.NURSE ---
0100: Patient was coughing, i went to check he reported an 8/10 headache and nausea, he was also struggling to say his name and date of MD called to bedside while I retrieved 5 mg oxy per PRN orders for pain. MD did neuro assessment and patient said I was resting and then my pelon came, and I woke up and felt nauseous MD informed patient if the pain did not subside in [address] scan would be ordered. This RN stayed with the patient at bedside per his request he was scared and did not want to be alone. 0130: Patient stated his pain was now 4/10 he was resting with eyes closed and respirations were at 18/min and he said you can go now I am feeling better Reported to MD and will assess at 0200.
[2022-10-13] MEDS: Pantoprazole Sodium 40 MG/10 ML VIAL IVPUSH ×2 (05:38→17:25)
[2022-10-13] MEDS: Levothyroxine Sodium 150 MCG TABLET PO (05:38)
[2022-10-13 06:10] LABS: Hematocrit 26.1 % (42.0-52.0); Hemoglobin 8.1 g/dl (14.0-18.0); Mean Corpuscular Hemoglobin 27.7 pg (27.0-33.0); Mean Corpuscular Volume 89.4 fL (80.0-98.0); Mean Platelet Volume 10.3 fL (9.4-12.4); Platelet Count 311 X10*3/uL (160-400); Red Blood Count 2.92 X10*6/uL (4.60-5.80); Red Cell Distribution Width 16.5 % (11.0-16.0)
[2022-10-13 06:15] LABS: NRBC Pct Auto 3.2 /100WBC (0.0-0.2)
[2022-10-13 07:05] LABS: Anion Gap 14 (12-20); Blood Urea Nitrogen 10 mg/dL (9-16); Carbon Dioxide 27 mmol/L (22-29); Chloride 103 mmol/L (96-108); Creatinine Clr Calc Pharmacy 108.8; Estimated Glomerular Filt Rate > 60; Potassium 3.7 mmol/L (3.3-5.1); Sodium 140 mmol/L (135-145)
[2022-10-13 07:06] LABS: Calcium 7.8 mg/dL (8.4-10.2); Glucose Random 83 mg/dL (60-115)
[2022-10-13] MEDS: 0.9 % Sodium Chloride Flush 3 ML SYRINGE IVFLUSH ×3 (07:44→20:50)
[2022-10-13] MEDS: Furosemide 20 MG TABLET 60 MG PO (07:44)
[2022-10-13] MEDS: Ferrous Sulfate 324 MG TABLET.DR PO ×2 (07:45→17:25)
[2022-10-13] MEDS: Lactated Ringers 1,000 ML 50 ML IVCONT (07:48)
--- NOTE | 2022-10-13 12:51 | HO.PM.IMPN ---
Subjective Subjective Date of Service: 10/13/22 Interval History: reports generalized weakness and back pain Hb stable above 8 denies any fever, chills or bleeding no other overnight events Review of Systems Review of Systems: Yes all other systems are reviewed and are negative Physical Exam Vital Signs: Vital Signs: Last Vital Signs Temp 98 F 10/13/22 11:49 Pulse 60 10/13/22 11:49 Resp 18 10/13/22 11:49 BP 89/56 L 10/13/22 11:49 Pulse Ox 95 10/13/22 11:49 O2 Del Method Nasal Cannula 10/13/22 04:00 O2 Flow Rate 2 10/13/22 04:00 BMI result Body Mass Index 20.2 Const: Other: Constitutional : Awake, interactive, not in distress Neck : Normal inspection, Supple Cardiovascular : RRR, no JVP, no lower extremity edema Respiratory : good bilateral air entry,? no crackles Gastrointestinal:? soft, lax, Normal bowel sounds, Non tender Skin : Warm, Dry Neurological : Alert & oriented x3, No focal deficit Objective Data Active Medications Acetaminophen (Acetaminophen 325 Mg Tablet) 650 mg PO Q6H PRN PRN Reason: Pain, Mild (Pain Scale 1-3) Last Admin: 10/11/22 07:43 Dose: 650 mg Documented By: CHAVEZ Docusate Sodium (Docusate Sodium 100 Mg Capsule) 100 mg PO DAILY PRN PRN Reason: Constipation Ferrous Sulfate (Ferrous Sulfate 324 Mg Tablet.) 324 mg PO BIDWM [facility] Last Admin: 10/13/22 07:45 Dose: 324 mg Documented By: MARISA Furosemide (Furosemide 20 Mg Tablet) 60 mg PO DAILY [facility]; Protocol Last Admin: 10/13/22 07:44 Dose: 60 mg Documented By: MARISA Furosemide (Furosemide 40 Mg Tablet) 40 mg PO DAILY@1700 [facility]; Protocol Last Admin: 10/12/22 20:21 Dose: 40 mg Documented By: GABY Levothyroxine Sodium (Levothyroxine Sodium 150 Mcg Tablet) 150 mcg PO DAILY@0600 [facility] Last Admin: 10/13/22 05:38 Dose: 150 mcg Documented By: GABY Lidocaine (Lidocaine 4 % Patch Adh..Patch) 1 patch TRANSDERMA DAILY [facility]; Protocol Last Admin: 10/13/22 07:46 Dose: Not Given Documented By: MARISA Non-Admin Reason: Patient Refused Meclizine HCl (Meclizine Hcl 25 Mg Tablet) 25 mg PO TID PRN PRN Reason: dizziness Patient Own Med ( Ivabradine [Corlanor ] 5 Mg Tablet) 5 mg PO BIDWM [facility] Last Admin: 10/13/22 07:44 Dose: 5 mg Documented By: MARISA Ondansetron HCl (Ondansetron Hcl 4 Mg/2 Ml Vial) 4 mg IVPUSH Q8H PRN PRN Reason: Nausea and Vomiting Oxycodone HCl (Oxycodone Hcl Immed Release 5 Mg Tablet) 5 mg PO Q6H PRN PRN Reason: moderate pain Last Admin: 10/13/22 01:03 Dose: 5 mg Documented By: GABY Pantoprazole Sodium (Pantoprazole Sodium 40 Mg/10 Ml Vial) 40 mg IVPUSH BID@0630,1630 [facility] Last Admin: 10/13/22 05:38 Dose: 40 mg Documented By: GABY Pharmacy Consult (Consult Rx Perform Med Rec) 1 each MISCELLANE ONCE PRN PRN Reason: Consult order Sodium Chloride (0.9 % Sodium Chloride Flush 3 Ml Syringe) 3 ml IVFLUSH QSHIFT [facility] Last Admin: 10/13/22 07:44 Dose: 3 ml Documented By: MARISA Labs 10/13/22 05:36 10/13/22 05:36 Labs: Laboratory Results - last 24 hr 10/10/22 10/13/22 10/13/22 11:52 05:36 05:36 MCV 89.4 MCH 27.7 MCHC 31.0 RDW 16.5 H Plt Count 311 MPV 10.3 Absolute Nucleated RBC 0.320 H Nucleated RBC % (auto) 3.2 H Anion Gap 14 Estim Creat Clear Calc 108.8 Estimated GFR > 60 Random Glucose 83 Calcium 7.8 L CSF VDRL Nonreactive Microbiology Microbiology Results: Microbiology 10/10/22 11:52 Gram Stain - Final Cerebrospinal Fluid CSF Examination - Final Fluid Description - Final CSF Culture - Final No growth after 3 days. Assessment and Plan (1) Acute on chronic blood loss anemia: Status: Acute Plan 61M PMH Hodgkin's lymphoma currently in remission, nonischemic cardiomyopathy, HFrEF, history PE/DVT on Eliquis, chronic normocytic anemia, paroxysmal atrial fibrillation anticoagulated with Eliquis w/ AICD in place, hypothyroidism, mj syndrome, osteoporosis, and history of TIA, presented with headache, admitted for acute on chronic symptomatic anemia. Acute on chronic iron deficiency anemia likely related to blood loss from eliquis use. Holding eliquis Hb improved to 8.2 after 2 units transfusion continue IV PPI 40mg BID Iron supplement GI input appreciated, EGD showed large 10 cm ulcer, PPI and DC AC Follow CBC Acute occipital headache resolved SAH ruled out with head CT and LP Vertigo/Gait instability Has known chemotherapy related cerebellar dysfunction PT eval rec home VNA paroxysmal atrial fibrillation-rate controlled AICD in place holding Eliquis due to above HFrEF/NICM hypovolemic holding PO diuretics continue corlanor Hypothyroidism levothyroxine Hodgkin lymphoma in remission follows with Dr. Merchant DVT prophylaxis- SCDs due to suspected gi bleed Full code reason for continued hospitalization:anemia, pain and weakness pending safe discharge plan Time Spent With Patient Time: Total time managing care of this patient today ____ minutes. Quality Stroke Does the patient have a stroke diagnosis?: No VTE Prior VTE?: No VTE Risk Level:: Medical - moderate - high VTE Device Contraindication: N/A - Device Ordered VTE Drug Contraindication: Treatment Not Indicated
--- NOTE | 2022-10-13 15:31 | HO.POSTANES ---
Post Anesthesia Evaluation Post Anesthesia Evaluation Vital Signs: Vital Signs Temp Pulse Resp BP Pulse Ox O2 Del Method O2 Flow Rate 10/13/22 15:29 98.3 F 76 20 117/56 L 98 Room Air 10/13/22 11:49 98 F 60 18 89/56 L 95 10/13/22 06:53 97 F 77 16 94/52 L 98 10/13/22 04:00 98.6 F 78 20 94/58 L 99 Nasal Cannula 2 Anesthesia: Monitored Mental Status: Awake Pain Control: Satisfactory Nausea/Vomiting: None Hydration: Adequate Anesthesia-Related Issues: No Anes. Related Issues
[2022-10-14] VITALS: BP 94/58; PULSE 76; RESP 20; TEMP 36.7; O2SAT 96
[2022-10-14 03:09] VITALS: BP 94/58; PULSE 76; RESP 20; TEMP 36.4; O2SAT 93
[2022-10-14] MEDS: Acetaminophen 325 MG TABLET 650 MG PO (03:19)
[2022-10-14] MEDS: Levothyroxine Sodium 150 MCG TABLET PO (05:44)
[2022-10-14] MEDS: Pantoprazole Sodium 40 MG/10 ML VIAL IVPUSH (05:44)
[2022-10-14] MEDS: oxyCODONE HCl Immed Release 5 MG TABLET PO (05:53)
[2022-10-14 06:06] LABS: Hematocrit 26.9 % (42.0-52.0); Hemoglobin 8.5 g/dl (14.0-18.0); Mean Corpuscular HGB Conc 31.6 g/dl (31.0-36.0); Mean Corpuscular Hemoglobin 28.3 pg (27.0-33.0); Mean Corpuscular Volume 89.7 fL (80.0-98.0); Mean Platelet Volume 10.3 fL (9.4-12.4); Platelet Count 307 X10*3/uL (160-400); Red Cell Distribution Width 17.2 % (11.0-16.0); White Blood Count 10.6 X10*3/uL (4.8-10.8)
[2022-10-14 06:56] VITALS: BP 92/52; PULSE 80; RESP 18; TEMP 36.6; O2SAT 94
[2022-10-14] MEDS: 0.9 % Sodium Chloride Flush 3 ML SYRINGE IVFLUSH (08:19)
[2022-10-14] MEDS: Ferrous Sulfate 324 MG TABLET.DR PO (08:19)
[2022-10-14] MEDS: Lidocaine 4 % Patch ADH..PATCH 1 PATCH TRANSDERMA (08:23)
[2022-10-14 09:25] VITALS: BP 92/52; PULSE 80; O2SAT 94
--- NOTE | 2022-10-14 11:26 | PM.DS ---
DS: Providers Provider Date of Service: 10/14/22 Date of admission: 10/10/22 14:34 Primary care physician: Yesica Kay MD Consults: 10/10/22 14:48 Consult to Gastroenterology Routine Consulting Provider: Jefe Portillo Reason for consultation: blood loss anemia 10/11/22 09:34 Consult to Hematology / Oncology Routine Consulting Provider: Britany Merchant Reason for consultation: anemia, ?hematological etiology DS: Diagnosis Discharge Diagnosis (1) Acute on chronic blood loss anemia: Status: Acute (2) Gastric ulcer: Status: Acute (3) Headache: Status: Acute DS: Summary Hospital Course Hospital Course: Admission note HPI 61-year-old male with history of Hodgkin's lymphoma currently in remission, nonischemic cardiomyopathy, HFrEF, history PE/DVT on Eliquis, chronic normocytic anemia, paroxysmal atrial fibrillation anticoagulated with Eliquis w/ AICD in place, hypothyroidism, codeine syndrome, osteoporosis, chremotherapy related cerebellar dysfunction, and history of TIA presents to the ED earlier today for evaluation of sudden-onset severe occipital headache that occur while driving in to work this morning.? There is associated blurred vision, photophobia, nausea, and vomiting x1 with nonbloody emesis. He states for the past week he has been experiencing episodes of vertigo for which his PCP prescribed meclizine and was present this morning associated with headache. He has never had similar headache in past and denies hx migraines. Today, he states he has also been experiencing fatigue, [place], and lightheadedness (different than his vertigo). No fevers, chills, recent illness, otalgia, tinnitus, change in hearing, abdominal pain, diarrhea, melena, hematochezia, palpitations, or chest pain.? He does report constipation and states last bowel movement was last night and was quite soft but no watery stool. On arrival, vital stable though blood pressure is soft at 94/57 on exam.? Leukocytosis of 13.2, RBC 2.07, H/H 5.3/17.2% (9.8/ 30.1% on 09/13). Iron 14, TIBC 306, 5% saturation, ferritin 15. LDH 217. Stool occult blood negative. PT 24.9, INR 2.1, PTT 54.1. Renal function normal, electrolyte levels normal. Trop WNL. UA unremarkable.? Head CT negative for any acute intracranial abnormality.? Follow-up lumbar puncture performed to further evaluate thunderclap headache. No RBCs. CSF unremarkable overall, gram stain negative, culture pending. CXR showing minimal blunting of the costophrenic angles bilaterally related to scarring vs trace effusions. In the ED, patient received IV morphine with resolution of headache, ondansetron, 1 L IVF, and 2 units packed red blood cells. Hospital course the patient was admitted for evaluation of Acute on chronic iron deficiency anemia related to blood loss from gastric ulcer secondary to eliquis use. responded well after 2 units transfusion with Hb maintaining above 8. patient was able to ambulate on RA with no reported dyspnea as he was treated with IV PPI 40mg BID and Iron supplement as EGD was consistent large 10 cm oozing ulcer with no active bleeding. GI recommended to DC Eliquis and discharge on Omeprazole with a plan to follow up as outpatient as Hb remained stable with no further drop noted. Had Acute occipital headache at time of presentation. resolved. SAH ruled out with head CT and LP. Vertigo/Gait instability as he has known chemotherapy related cerebellar dysfunction. seen by PT who recommended home PT. Start Iron pills and Omeprazole as prescribed Discontinue Eliquis To follow with dr Slade for biopsy result and further work up if needed Time Spent with Patient Time attestation: Total time managing care of this patient today ____ minutes. Discharge coordination time: Greater than 30 minutes Quality: Safe Use of Opioids Does Pt have an Active Cancer Diagnosis on the Problem List?: No Quality: Stroke Does the patient have a stroke diagnosis?: No Physical Exam Vital Signs: Vital Signs: Last Vital Signs Temp 97.9 F 10/14/22 06:56 Pulse 80 10/14/22 09:25 Resp 18 10/14/22 06:56 BP 92/52 L 10/14/22 09:25 Pulse Ox 94 10/14/22 09:25 O2 Del Method Nasal Cannula 10/14/22 06:56 O2 Flow Rate 1 10/14/22 03:09 BMI result Body Mass Index 20.2 Const: Other: Constitutional : Awake, interactive, not in distress Neck : Normal inspection, Supple Cardiovascular : RRR, no JVP, no lower extremity edema Respiratory : good bilateral air entry,? no crackles Gastrointestinal:? soft, lax, Normal bowel sounds, Non tender Skin : Warm, Dry Neurological : Alert & oriented x3, No focal deficit DS: Data Data Completed and Pending Completed studies during hospitalization [Text1]: Procedures Control Bleeding in Gastrointestinal Tract, Via Natural or Artificial Opening Endoscopic (11/18/21) Drainage of Bone Marrow, Percutaneous Approach, Diagnostic (09/20/21) Excision of Stomach, Pylorus, Via Natural or Artificial Opening Endoscopic, Diagnostic (01/13/21) Extraction of Iliac Bone Marrow, Percutaneous Approach, Diagnostic (09/20/21) Inspection of Lower Intestinal Tract, Via Natural or Artificial Opening Endoscopic (01/13/21) Inspection of Upper Intestinal Tract, Via Natural or Artificial Opening Endoscopic (11/18/21) Introduction of Other Therapeutic Substance into Upper GI, Via Natural or Artificial Opening Endoscopic (11/18/21) Reposition Left Upper Femur with Internal Fixation Device, Percutaneous Approach (01/25/21) Transfusion of Nonautologous Red Blood Cells into Peripheral Vein, Percutaneous Approach (12/01/21) Pending studies at discharge: Pending at discharge 10/12/22 14:37 Surgical [PTH] Routine Labs on day of discharge: Laboratory Results - last 24 hr 10/14/22 05:27 WBC 10.6 RBC 3.00 L Hgb 8.5 L Hct 26.9 L MCV 89.7 MCH 28.3 MCHC 31.6 RDW 17.2 H Plt Count 307 MPV 10.3 Absolute Nucleated RBC 0.210 H Nucleated RBC % (auto) 2.[address] scan - abdomen: Radiologist's impression: ITS Impressions Chest X-Ray 10/10/22 09:15 IMPRESSION: Minimal blunting of the costophrenic angles bilaterally could represent pleural scarring or very small pleural effusions. Head CT 10/10/22 09:19 IMPRESSION: No acute intracranial pathology. Lumbar Spine CT 10/11/22 04:40 IMPRESSION: * No acute fracture or traumatic malalignment. * Mild lumbar spondylosis as described. * Nonspecific fat stranding present in the retroperitoneum and about the pancreas. Correlate with serum lipase. * Small bilateral pleural effusions. Chest X-Ray 10/11/22 23:29 IMPRESSION: * Patchy opacities in the lower lungs could represent atelectasis or infiltrate. * Trace bilateral pleural effusions. Discharge Plan Discharge Anticipated Discharge Date/Time: 10/14/22 11:06 Patient Disposition: Home Health Service Discharge Diagnosis: Acute blood loss anemia Gastric ulcer Referrals: Physician,Unknown J [Physician] - 1 Week Discharge Medications: New ferrous sulfate 324 mg (65 mg iron) Tablet,Delayed Release (Dr/Ec) 324 mg PO BIDWM Qty: 60 0RF omeprazole 40 mg capsule,delayed release(DR/EC) 40 mg PO BID Qty: 60 0RF Continued eplerenone [Inspra] 25 mg tablet 25 mg PO DAILY Qty: 90 3RF furosemide [Lasix] 20 mg tablet 60 mg PO DAILY levothyroxine 150 mcg tablet 150 mcg PO DAILY@0600 meclizine 25 mg tablet 25 mg PO TID PRN (Reason: dizziness) 7 Days Qty: 21 0RF furosemide 20 mg tablet 40 mg PO DAILY@1700 Rx Instructions: TAKE 3 TABLETS EVERY MORNING and TAKE 2 TABLETS AT 5 PM; TOTAL DAILY DOSE 100MG Corlanor 5 mg tablet 5 mg PO BIDWM Qty: 180 3RF Rx Instructions: must administer with a meal/food Discontinued Eliquis 5 mg Tablet 5 mg PO BID Qty: 180 4RF Discharge Orders: Discharge Order (Routine); Ordered 10/14/22 Ordered By: Jhony Erickson Diet: Advance to usual diet Activity on Discharge: As tolerated Stand Alone Forms: Patient Portal Discharge page Other Ambulatory Orders: Complete Blood Count no Diff (Routine) Timeframe: 5 Days Facility: [facility] - Location: Laboratory Ordered By: Jhony Erickson Care Plan Goals: Read below Health Concerns: Read below Plan of Treatment: Read below Assessment: You were admitted to the hospital for evaluation of weakness and headache, found to have a significant drop in your hemoglobin level. transfused 2 units of blood with fair response as you were evaluated by Psychic Reader who did an EGD showing an evidence of large stomach ulcer. blood thinners were discontinued and you were started on PPI maintaining hemoglobin level in acceptable range. Start Iron pills and Omeprazole as prescribed Discontinue Eliquis To follow with dr Slade for biopsy result and further work up if needed Repeat CBC next week
[2022-10-14 11:27] VITALS: BP 105/56; PULSE 70; RESP 17; TEMP 36.8; O2SAT 99
--- NOTE | 2022-10-14 11:32 | W.MHC.F2F ---
Service Date Service Date: 10/14/22 Encounter Date of encounter: 10/14/22 Encounter: PHysical deconditioning Reasons for Services Signs and symptoms assessed: physical deconditioning Reason for fpc: medication management and teach disease management Reason for occupational therapy: home safety and mobility and therapeutic exercises Homebound: Leaving the home is medically contraindicated at this time without the asist of a device and/or another person due th the listed conditions above and below. Reason homebound: unsteady gait / fall risk Certification: Based on the above findings, I certify that this patient is confined to the home and needs intermittent fpc care, physical therapy and/or speech therapy, or continues to need occupational therapy. The patient is under my care, and I have initiated the establishment of the plan of care. The patient will be followed by a physician who will periodically review the plan of care. Time Spent With Patient Time: Total time managing care of this patient today ____ minutes.
--- NOTE | 2022-10-14 14:27 | MHC.CM.PN ---
[facility]vns notified of dc
--- NOTE | 2022-10-14 15:22 | PM.EVENT ---
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 Discussed with patient and family, also with Dr. Merchant. They will f/u with her after final pathology is available on Monday. Time Spent With Patient Time: Total time managing care of this patient today ____ minutes.
--- NOTE | 2022-10-17 09:41 | P.CDIM_ITS ---
PROVIDER RESPONSE TEXT: To clarify, the appropriate diagnosis supported by the clinical indicators: Acute QUERY TEXT: PHYSICIAN'S DOCUMENTATION REQUEST Date of Query: 10/13/2022 08:58 AM EDT Patient Name: Enrique Mnoahan Admit Date: 10/10/2022 Dear Jhony Erickson, A review of the medical record indicates additional documentation may be needed. Please review below and update the documentation accordingly. Clinical Indicators: GI Op note: EGD with biopsy - Impression: Gastric Ulcer Stomach: There was a large area of ulceration which seemed very superficial with heaped up mucosa rafa und the margins along the anterior wall. Clarify which of the following accurately represents the acuity of the Gastric Ulcer: Possible options might include: Acute Acute on chronic Chronic stable condition Other Other (explain) Clinically unable to determine (explain) Thank you, Gerri King, CCS, CDIS Use of terms such as suspected, likely, concern for, or probable (associated with a specific diagnosi s that is being evaluated, monitored, or treated as if it exists) are acceptable and can be coded in the inpatient se tting, when documented at the time of discharge. Please use your independent medical judgment in providing your response. THIS QUERY IS PART OF THE PERMANENT MEDICAL RECORD
== END 2022-10-14 15:54 | disposition home health service (06) | DRG 661 ==
LOC: HO.ED 13:23 → HO.IMC 14:40
PROVIDERS: Internal Medicine; Internal Medicine Gastroenterology; Admitting Provider Physician Assistant; Emergency Provider Emergency Medicine; PCP Internal Medicine; Visit Provider Student in an Organized Health Care Education/Training Program
PROC: 0DJ08ZZ Inspection of Upper Intestinal Tract, Via Natural or Artificial Opening Endoscopic (ICD-10-PCS; CPT 43235; principal; 2022-10-12 14:10)
DX: D68.32 Hemorrhagic disorder due to extrinsic circulating anticoagulants (principal); C81.90 Hodgkin lymphoma, unspecified, unspecified site; I42.8 Other cardiomyopathies; I50.22 Chronic systolic (congestive) heart failure; K25.0 Acute gastric ulcer with hemorrhage; C16.8 Malignant neoplasm of overlapping sites of stomach; D62 Acute posthemorrhagic anemia; Q85.82 Other Cowden syndrome; I48.0 Paroxysmal atrial fibrillation; G93.89 Other specified disorders of brain; D63.0 Anemia in neoplastic disease; T45.515A Adverse effect of anticoagulants, initial encounter; E03.9 Hypothyroidism, unspecified; L83 Acanthosis nigricans; T45.1X5S Adverse effect of antineoplastic and immunosuppressive drugs, sequela; Z79.890 Hormone replacement therapy; Z95.810 Presence of automatic (implantable) cardiac defibrillator; Z86.73 Personal history of transient ischemic attack (TIA), and cerebral infarction without residual deficits; Z86.711 Personal history of pulmonary embolism; Z95.2 Presence of prosthetic heart valve; Z79.01 Long term (current) use of anticoagulants; Z79.899 Other long term (current) drug therapy
CPT/HCPCS: 36415; 70450; 71045; 72131; 80048; 80076; 81003; 82728; 82945; 83540; 83615; 83690; 83880; 84157; 84484; 85025; 85027; 85610; 85730; 86592; 86850; 86900; 86901; 86923; 87015; 87070; 87205; 87635; 88305; 88341; 88342; 88360; 89051; 93005; 97116; 97162; 99285; J1170; J1940; J2270; J2405; P9016

== ENCOUNTER → 2022-10-19 11:22 | Outpatient (BNVA) | payer OTHER, SELFPAY | PROVIDERS: PCP Internal Medicine; Referring Provider Internal Medicine; Visit Provider Surgery | DX: Z13.89 Encounter for screening for other disorder (principal) ==

== ENCOUNTER 2022-10-21 14:40 | Outpatient (RCR) | payer OTHER, SELFPAY ==
[2020-05-04 15:14] VITALS: BP 90/47; PULSE 75; RESP 18; TEMP 37.1; O2SAT 98
[2020-05-04 15:17] VITALS: BMI 26.0
[2020-05-04 15:28] LABS: MANUAL DIFF FLAG NO
[2020-05-04 15:33] LABS: Basophils Absolute Auto 0.1 X10*3/uL (0.0-0.2); Eosinophils Absolute Auto 0.2 X10*3/uL (0.0-0.4); Eosinophils Percent Auto 2.5 % (0-4); Hematocrit 34.3 % (42-52); Hemoglobin 11.3 g/dl (14.0-18.0); Imm Gran Abs Auto 0.04 X10*3/uL (0.00-0.03); Imm Gran Pct Auto 0.4 % (0.0-0.4); Lymphocytes Percent Auto 11.2 % (20-40); Mean Corpuscular HGB Conc 32.9 g/dl (31.0-36.0); Mean Corpuscular Hemoglobin 29.4 pg (27.0-33.0); Mean Corpuscular Volume 89.3 fL (80-98); Mean Platelet Volume 10.9 fL (9.4-12.4); Monocytes Absolute Auto 1.3 X10*3/uL (0.1-1.2); Monocytes Percent Auto 13.9 % (2-11); Neutrophils Absolute Auto 6.4 X10*3/uL (2.0-8.3); Platelet Count 348 X10*3/uL (160-400); Red Blood Count 3.84 X10*6/uL (4.60-5.80); Red Cell Distribution Width 14.6 % (11.0-16.0); White Blood Count 9.1 X10*3/uL (4.8-10.8)
--- NOTE | 2020-05-04 15:46 | XR_ITS ---
EXAMINATION: XR CHEST CLINICAL INFORMATION: Hodgkin's lymphoma. COMPARISON: Report chest radiographs 07/11/2012, report chest radiographs 01/12/2011 TECHNIQUE: 2 views of the chest were obtained. FINDINGS: There is 3-lead AICD. The heart is normal in size. The vascularity is normal. There is small right effusion blunting the lateral and posterior costophrenic sulci. No left effusion. There is no lobar or segmental airspace consolidation or definite groundglass opacity. The hilar and mediastinal contours are normal. There is old left anterior mediastinal flako calcification again noted, also described on chest radiograph report 01/12/2011. There are surgical clips in the upper abdomen and bulky oval calcification right anterior abdomen measuring approximately 2.5 x 3.2 x 4.5 cm. Bowel gas unremarkable. XR/XR chest 2V IMPRESSION: 1. Small right effusion. Vascularity normal. Heart size normal. 2. Old mediastinal lymph node calcification, similar to prior report 01/12/2011. 3. Large oval smooth calcification right anterior abdomen approximately 3 x 5 cm.
--- NOTE | 2020-05-04 15:51 | PM.HEMONCPN ---
Medical Summary - Medical Summary Chief complaint: follow-up for: Hodgkin's lymphoma. Val's syndrome. Medical Summary: DIAGNOSES: 1. Hodgkin's Lymphoma, diagnosed November 1989. Left supraclavicular adenopathy. Chest x-ray revealed a mediastinal mass. Staging laparotomy negative. 2. 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 THERAPY: Received radiation therapy to inverted-Y field, stayed in remission for 5 years. He then developed recurrence in the right inguinal area. He was treated with 6 cycles of ABVD completed April 1996. He had radiation induced hypothyroidism. Interval History Interval history: this is a pleasant 59-year-old gentleman, here for a follow-up visit. 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 His blood pressure tends to run low. in the 90s to 100s. He does not feel dizzy most of the time. However the other day he was here and had a dizzy spell. He tells me he has to watch his diet carefully. He has to eat on a regular basis otherwise he does tend to develop hypoglycemia. That day he had the intestinal thing going so he did skip breakfast. Symptoms quickly resolved after had some juice and crackers. He tells me he has had cardiac issues. He was admitted to the hospital in January 2019, for chest pain and shortness of breath. A stent was considered the block age was less than 30%. The plan is to optimize medical therapy, and for close observation. He was on Lasix 20 mg a day however he developed some lower extremity edema cough and shortness of breath. Lasix has been increased to 20 mg b.i.d. since then his symptoms have resolved. He also mentions that the battery on his pacemaker is due to be changed. He is actually seeing the epoxy coatings installer here on Monday for his 1st appointment. He has been under care of vascular. They are contemplating starting Eliquis in future. He denies any adenopathy. Energy level is back to baseline. No abdominal pain nausea vomiting heartburn indigestion. His bowels are moving without any gross blood in it. He enjoys a good appetite. He has lost weight intentionally. He is eating healthy. He has cerebellar degeneration. He has difficulty with balance. He follows closely with the neurologist. He is in good spirits. Rest of the review of systems is unremarkable. He has been going back for annual colonoscopies under the care of Dr. Gillis. Next one is scheduled for September 2020. Review of Systems - Constitutional Denies fatigue, Denies fever(s), Denies headache(s) - Eyes Denies blind spots - ENT Reports system reviewed and no additional complaints, except as documented - Cardiovascular Denies chest pain - Respiratory Denies change in phlegm color, Denies chest congestion - Gastrointestinal Denies abdominal pain, Denies diarrhea - Musculoskeletal Reports abnormal walking - Neurologic Reports system reviewed and no additional complaints, except as documented, Reports abnormal gait, Denies memory loss - Psychiatric Denies abnormal sleep pattern - Endocrine Denies cold intolerance - Hematologic/Lymphatic Denies easy bleeding - Allergic/Immunologic Denies GI upset with certain foods PMFSH Medical History: Medical History (Last Updated 05/04/20 @ 15:24 by Adele Post) Pacemaker Patient : No Smoking status: Never smoker Home Medications and Allergies Home Medications Medication Instructions Recorded Confirmed Type aspirin 1 tab PO DAILY 05/04/20 05/04/20 History carvedilol 1 tab PO BID 05/04/20 05/04/20 History eplerenone 1 tab PO DAILY 05/04/20 05/04/20 History furosemide 20 tab PO BID 05/04/20 05/04/20 History levothyroxine 1 tab PO DAILY 05/04/20 05/04/20 History lisinopril 1 tab PO DAILY 05/04/20 05/04/20 History Allergies Allergy/AdvReac Type Severity Reaction Status Date / Time No Known Allergies Allergy Verified 05/04/20 15:19 [No Known Allergies*] Exam Vital signs: Vital Signs Temp 98.7 F 05/04/20 15:14 Pulse 75 05/04/20 15:14 Resp 18 05/04/20 15:14 BP 90/47 L 05/04/20 15:14 Pulse Ox 98 05/04/20 15:14 Intake & Output 05/03/20 05/04/20 05/04/20 18:59 06:59 18:59 Other: Weight 84.7 kg Weight 84.7 kg Body Mass Index 26.0 - Constitutional Present: no acute distress - Routine HEENT Exam Head: Present: normal inspection ENT: Present: mucous membranes moist - Routine Respiratory Exam Present: CTAB - Routine Cardiovascular Exam Cardiovascular: Present: RRR, S1 - Routine Abdominal Exam Present: soft, nontender - Routine Rectal Exam Patient deferred: digital exam - Routine Back/Spine/Pelvis Exam Back/Spine: Present: full ROM Pelvis: Absent: buttock ecchymosis - Routine Skin Exam Present: intact - Routine Neurological Exam Present: alert, oriented X3 - Detailed Neurological Exam: Coma Scale Eye Opening: Spontaneous (4) - Routine Psychiatric Exam Present: normal affect. Absent: agitated Data - Labs CBC & Chem 7: 05/04/20 14:57 05/04/20 14:57 Progress Note: A/P (1) Hodgkins lymphoma Status: Acute Assessment and plan: 59 year-old gentleman with history of Hodgkin's Lymphoma diagnosed in 1989. He had disease recurrence in 1994, for which he had systemic chemotherapy until April 1996. He is clinically in remission and doing fairly well. He has a Normal exam and blood work today. 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 He is undergoing annual colonoscopies by Dr. Gillis, at [facility]. In terms of surveillance, a recommendation from NCCN is: 1) Annual comprehensive physical examination. 2) Thyroid ultrasound annually. 3) Colonoscopy every 5 years, more frequent if symptomatic. However in view of the Edinboro's syndrome he should have annual colonoscopy. 4) Renal ultrasound to be repeated every 1 to 2 years. 5) Annual skin exam, also need to have a low index of suspicion for dysplastic gangliocytoma of the cerebellum. 6) If patient has symptoms, then neuroimaging is recommended, anyone with persistent headache. PLAN: I will proceed with a chest x-ray, due to the history of Hodgkin's lymphoma. He gets one done annually. He will return in a year for a follow-up. I will set up colonoscopy for him here. He is due in September. Thank you, CC: Denis. Dr. Rios. Dr. Javier. - Time Spent With Patient Total time spent is greater than 50% in coordination of care (as documented) at patient's floor/unit and/or counseling patient: 25 - 35 minutes
--- NOTE | 2020-05-04 16:02 | PC.NURSE ---
Pt here for follow up with Dr Merchant. Bp 90/47, reported to Dr Merchant. Pt denies dizziness. No c/o discomfort. Labs drawn, will be reviewed.
[2020-05-04 16:04] LABS: Alanine Aminotransferase 12 U/L (0-40); Albumin Level 4.1 g/dL (3.5-5.0); Alkaline Phosphatase 47 U/L (39-117); Anion Gap 13 (12-20); Aspartate Amino Transferase 19 U/L (5-37); Bilirubin Total 0.6 mg/dL (0.0-1.0); Blood Urea Nitrogen 28 mg/dL (9-16); Calcium 8.5 mg/dL (8.4-10.2); Carbon Dioxide 28 mmol/L (22-29); Chloride 102 mmol/L (96-108); Creatinine Clr Calc Pharmacy 59.8; Estimated Glomerular Filt Rate 50; Glucose Random 85 mg/dL (60-115); Lactate Dehydrogenase 289 U/L (118-273); Potassium 5.5 mmol/l (3.3-5.1); Sodium 137 mmol/L (135-145)
[2020-05-04 16:29] LABS: Thyroid Stimulating Hormone 0.76 mIU/mL (0.32-4.0)
--- NOTE | 2020-06-15 12:00 | MHC.HEMONC ---
CT SCAN W/CONTRAST CANCELLED PER DR. LAWS. SCAN WILL BE REORDERED POST PT. SURGERY
--- NOTE | 2021-05-04 11:26 | PM.HEMONCPN ---
Medical Summary - Medical Summary Date of Service: 05/04/21 Chief complaint: Follow-up for Hodgkin's lymphoma. Medical Summary: DIAGNOSES: 1. Hodgkin's Lymphoma, diagnosed November 1989. Left supraclavicular adenopathy. Chest x-ray revealed a mediastinal mass. Staging laparotomy negative. 2. 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 THERAPY: Received radiation therapy to inverted-Y field, stayed in remission for 5 years. He then developed recurrence in the right inguinal area. He was treated with 6 cycles of ABVD completed April 1996. He had radiation induced hypothyroidism. Interval History Interval history: This is a pleasant 60 year-old gentleman, here for a follow-up visit. He had a CTA on 01/13 which revealed: 1. No acute pulmonary embolism. Prior segmental filling defects resolved since exam 10/25/2020. 2. Moderate right effusion slightly decreased since prior exam 10/25/2020. 3. Subsegmental atelectasis anterior medial right upper lobe and right posterior basal region. No segmental or lobar airspace consolidation. No pneumothorax. VTE: negative He tells me back in January, he was in house with a hip fracture. Discharge summary: He presented to the emergency department after sustaining a fall while getting out of his car. He was in the parking lot of [facility] when he turned and took a step and fell. He landed on the left side. He was unable to get up due to pain. He called security who assisted him to the emergency department where he was evaluated. X-rays of the left hip demonstrated impacted subcapital fracture of the femur. Orthopedics was consulted and the plan was to admit him to the orthopedic service and plan for surgical intervention. The patient underwent a successful left hip percutaneous pinning, was transferred to PACU and then to the floor to recover. During their stay, their vitals were stable. POD1 he was started on Lovenox for DVT ppx, they also received physical therapy and occupational therapy services twice a day. Postop day 3 his hematocrit dropped to 28.4 therefore he was transfused with 1 unit of packed red blood cells followed by 20 mg of IV Lasix. Prior to discharge, dressing remained clean dry and intact the plan is to be transferred to a short-term rehab. He was seen by GI Dr. Leal, during that admission: stools, where he required blood transfusion. He underwent upper endoscopy and colonoscopy to the terminal ileum. The colonoscopy showed multiple polyps consistent with his previous history of 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with hamartomatous colon polyps. He also had large internal hemorrhoids and a lipoma. An upper endoscopy had been done the day prior to the colonoscopy, which showed gastric polyps, but no upper GI bleeding source was identified. He was discharged after his hematocrit was stable and outpatient followup capsule endoscopy was to be arranged. At the time, he presented with anemia and Hemoccult-positive stools. He had been on Eliquis for pulmonary embolism and also been on aspirin. It was felt safe to restart these medications at the time of his discharge. He was in rehab for 2 weeks and then he went home. 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 First week was tough however now he is getting the hand of it. His legs are getting stronger. He denies any adenopathy. Energy level is back to baseline. No abdominal pain nausea vomiting heartburn indigestion. His bowels are moving without any gross blood in it. He enjoys a good appetite. He has lost weight intentionally. He is eating healthy. He has cerebellar degeneration. He has difficulty with balance. He follows closely with the neurologist. He is in good spirits. Rest of the review of systems is unremarkable. He tells me he lost [address] Suero who attributed the weight loss to abnormal thyroid function. His Synthroid was 175 mcg was lowered down to 125 mcg. He is starting to gain weight. Previous history: He tells me he has had cardiac issues. He was admitted to the hospital in January 2019, for chest pain and shortness of breath. A stent was considered the block age was less than 30%. The plan is to optimize medical therapy, and for close observation. He was on Lasix 20 mg a day however he developed some lower extremity edema cough and shortness of breath. Lasix has been increased to 20 mg b.i.d. since then his symptoms have resolved. He also mentions that the battery on his pacemaker is due to be changed. He is actually seeing the health care analyst here on Monday for his 1st appointment. He has been under care of vascular. They are contemplating starting Eliquis in future. He has been going back for annual colonoscopies under the care of Dr. Gillis. Next one is scheduled for September 2020. Review of Systems - Constitutional Reports no additional constitutional complaints - Eyes Reports no additional eye complaints - ENT Reports no additional ear, nose, mouth, and throat complaints - Cardiovascular Reports no additional cardiovascular complaints - Respiratory Reports no additional respiratory complaints - Gastrointestinal Reports no additional gastrointestinal complaints - Genitourinary Genitourinary: Reports no additional male genitourinary complaints - Musculoskeletal Reports no additional musculoskeletal complaints - Integumentary/Breasts Skin/Breast: Reports no additional skin complaints - Neurologic Reports no additional neurologic complaints, Reports abnormal gait, Denies headache(s), Denies memory loss - Psychiatric Reports no additional psychiatric complaints - Endocrine Reports no additional endocrine complaints - Hematologic/Lymphatic Reports no additional hematologic/lymphatic complaints - Allergic/Immunologic Reports no additional allergic/immunologic complaints [facility] Medical History: Medical History (Last Reviewed 05/04/21 @ 14:47 by Maday Jewell) Anemia Aortic stenosis, severe Cardiac resynchronization therapy defibrillator (ORTHOTIC AIDE-D) in place Complete heart block Congestive heart failure COVID-19 vaccine series completed 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HFrEF (heart failure with reduced ejection fraction) Hodgkins lymphoma Hypocalcemia Hypotension (arterial) Hypothyroidism LBBB (left bundle branch block) Leukocytosis Low TSH level NICM (nonischemic cardiomyopathy) Osteoporosis Pacemaker Pulmonary embolism Recurrent pleural effusion on right Shortness of breath Sinus tachycardia Vitamin D deficiency Family History: Family History (Last Reviewed 05/04/21 @ 14:47 by Maday Jewell) Father Healthy adult male Mother Bladder cancer Surgical History: Surgical History (Last Reviewed 05/04/21 @ 14:47 by Maday Jewell) H/O splenectomy History of appendectomy History of cardiac pacemaker History of esophagogastroduodenoscopy (EGD) History of hip surgery Hx of colonoscopy S/P TAVR (transcatheter aortic valve replacement) Onset Date: ~10/29/20 Social History: Social History (Last Reviewed 05/04/21 @ 14:47 by Maday Jewell) Living Situation History: Household Members: Family Housing: House Are you a primary residential caregiver to a significant other at home: No Do you presently have visiting nurse or other home services: No Alcohol History: Alcohol intake: current Alcohol History Details: Alcohol intake frequency: holiday/special occasion Tobacco History: Patient Tobacco Use Status: Never used Tobacco e-Cigarette/Vaping Use: Never Used Second Hand Smoke Exposure: No Advance Directives: Advance Directives: No Advance Directives Information Provided: No Advance Directives Date on File: 01/25/21 Nutrition Assessment: Patient : No Occupation Assessmet: service: Yes Current occupational status: employed Oncology Screenings - ECOG Performance Status ECOG Performance Status: 1 Home Medications and Allergies Home Medications Medication Instructions Recorded Confirmed Type furosemide 40 mg tablet 40 mg PO BID tab 12/21/20 05/04/21 History Allergies Allergy/AdvReac Type Severity Reaction Status Date / Time No Known Allergies Allergy Verified 04/15/21 11:35 [No Known Allergies*] Exam Vital signs: Vital Signs Temp 98.7 F 05/04/20 15:14 Pulse 75 05/04/20 15:14 Resp 18 05/04/20 15:14 BP 90/47 L 05/04/20 15:14 Pulse Ox 98 05/04/20 15:14 Weight 84.7 kg Body Mass Index 26.0 - Constitutional Present: no acute distress - Routine HEENT Exam Head: Present: normal inspection Eye: Present: normal appearance ENT: Present: mucous membranes moist - Routine Neck Exam Present: full ROM - Routine Respiratory Exam Present: CTAB - Routine Cardiovascular Exam Cardiovascular: Present: RRR, S1 - Routine Abdominal Exam Present: soft, nontender - Routine Extremities Exam Present: nontender - Routine Back/Spine/Pelvis Exam Back/Spine: Present: full ROM - Routine Skin Exam Present: intact - Routine Neurological Exam Present: alert, oriented X3 - Detailed Neurological Exam: Coma Scale Eye Opening: Spontaneous (4) - Routine Psychiatric Exam Present: normal affect. Absent: agitated Data - Labs CBC & Chem 7: 05/04/21 14:43 05/04/21 14:43 Labs: 05/04/20 14:57 Complete Blood Count Auto Diff Routine Comprehensive Met. Panel Routine Lactate Dehydrogenase Routine TSH [Thyroid Stimulating Hormone] Routine 05/04/20 15:46 XR chest 2V Routine Laboratory Last Values WBC 9.1 X10*3/uL (4.8-10.8) 05/04/20 14:57 RBC 3.84 X10*6/uL (4.60-5.80) L 05/04/20 14:57 Hgb 11.3 g/dl (14.0-18.0) L 05/04/20 14:57 Hct 34.3 % (42-52) L 05/04/20 14:57 MCV 89.3 fL (80-98) 05/04/20 14:57 MCH 29.4 pg (27.0-33.0) 05/04/20 14:57 MCHC 32.9 g/dl (31.0-36.0) 05/04/20 14:57 RDW 14.6 % (11.0-16.0) 05/04/20 14:57 Plt Count 348 X10*3/uL (160-400) 05/04/20 14:57 MPV 10.9 fL (9.4-12.4) 05/04/20 14:57 Immature Gran % (Auto) 0.4 % (0.0-0.4) 05/04/20 14:57 Neut % (Auto) 71.0 % (45-73) 05/04/20 14:57 Lymph % (Auto) 11.2 % (20-40) L 05/04/20 14:57 [place] % (Auto) 13.9 % (2-11) H 05/04/20 14:57 Eos % (Auto) 2.5 % (0-4) 05/04/20 14:57 Baso % (Auto) 1.0 % (0-2) 05/04/20 14:57 Lymph # (Auto) 1.0 X10*3/uL (1.2-4.9) L 05/04/20 14:57 [place] # (Auto) 1.3 X10*3/uL (0.1-1.2) H 05/04/20 14:57 Eos # (Auto) 0.2 X10*3/uL (0.0-0.4) 05/04/20 14:57 Baso # (Auto) 0.1 X10*3/uL (0.0-0.2) 05/04/20 14:57 Abs Immat Gran (auto) 0.04 X10*3/uL (0.00-0.03) H 05/04/20 14:57 Absolute Neuts (auto) 6.4 X10*3/uL (2.0-8.3) 05/04/20 14:57 Absolute Nucleated RBC 0.000 X10*3/uL (0.0-0.012) 05/04/20 14:57 Nucleated RBC % (auto) 0.0 /100WBC (0.0-0.2) 05/04/20 14:57 Sodium 137 mmol/L (135-145) 05/04/20 14:57 Potassium 5.5 mmol/l (3.3-5.1) H 05/04/20 14:57 Chloride 102 mmol/L (96-108) 05/04/20 14:57 Carbon Dioxide 28 mmol/L (22-29) 05/04/20 14:57 Anion Gap 13 (12-20) 05/04/20 14:57 BUN 28 mg/dL (9-16) H 05/04/20 14:57 Creatinine 1.45 mg/dL (0.5-1.4) H 05/04/20 14:57 Estim Creat Clear Calc 59.8 05/04/20 14:57 Estimated GFR 50 05/04/20 14:57 Random Glucose 85 mg/dL (60-115) 05/04/20 14:57 Calcium 8.5 mg/dL (8.4-10.2) 05/04/20 14:57 Total Bilirubin 0.6 mg/dL (0.0-1.0) 05/04/20 14:57 AST 19 U/L (5-37) 05/04/20 14:57 ALT 12 U/L (0-40) 05/04/20 14:57 Alkaline Phosphatase 47 U/L (39-117) 05/04/20 14:57 Lactate Dehydrogenase 289 U/L (118-273) H 05/04/20 14:57 Total Protein 7.0 g/dL (6.5-8.0) 05/04/20 14:57 Albumin 4.1 g/dL (3.5-5.0) 05/04/20 14:57 TSH 0.76 mIU/mL (0.32-4.0) 05/04/20 14:57 - Imaging Radiologist's impression: ITS Impressions Chest X-Ray 05/04/20 15:46 IMPRESSION: 1. Small right effusion. Vascularity normal. Heart size normal. 2. Old mediastinal lymph node calcification, similar to prior report 01/12/2011. 3. Large oval smooth calcification right anterior abdomen approximately 3 x 5 cm. Assessment and Plan Patient Active problem list reviewed?: Yes (1) Hodgkins lymphoma Status: Inactive Assessment and plan: 60 year-old gentleman with history of Hodgkin's Lymphoma diagnosed in 1989. He had disease recurrence in 1994, for which he had systemic chemotherapy until April 1996. He is clinically in remission and doing fairly well. He is currently recuperating from a hip fracture repair. He is back at work. He has a Normal exam and blood work today. LDH: 226. He had a recent CTA of the chest done which was non revealing. PLAN: He abnormal thyroid function. Ultrasound of the thyroid revealed a nodule. He needs to have an FNA done. That will be set up by Dr. Suero. He will return in 6 months for a follow-up. Thank you, CC: Denis. Dr. Rios. Dr. Javier. (2) 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Status: Acute Assessment and plan: 2. Val's Syndrome. He has seen a genetic counselor, Given the high risk for malignancy, cancer surveillance is the major focus of management. He is undergoing annual colonoscopies by Dr. Gillis, at [facility]. In terms of surveillance, a recommendation from NCCN is: 1) Annual comprehensive physical examination. 2) Thyroid ultrasound annually. 3) Colonoscopy every 5 years, more frequent if symptomatic. However in view of the Shickley's syndrome he should have annual colonoscopy. 4) Renal ultrasound to be repeated every 1 to 2 years. 5) Annual skin exam, also need to have a low index of suspicion for dysplastic gangliocytoma of the cerebellum. 6) If patient has symptoms, then neuroimaging is recommended, anyone with persistent headache. He is anemic. Iron studies: /. 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 PLAN: He recently had a colonoscopy few months ago by Dr. Leal. He was seen for anemia, January. He is currently maintained on iron. He is supposed to go back for a video capsule study. He will continue to follow up with him. Thank you, CC: Dr. Mann. Dr. Leal. - Time Spent With Patient Time Spent with Patient (in minutes): 30
[2021-05-04 14:37] VITALS: BP 110/59; PULSE 105; RESP 22; TEMP 36.9; O2SAT 100; BMI 20.9
[2021-05-04 14:46] LABS: MANUAL DIFF FLAG NO
[2021-05-04 14:50] LABS: Basophils Absolute Auto 0.1 X10*3/uL (0.0-0.2); Basophils Percent Auto 0.6 % (0-2); Eosinophils Percent Auto 0.4 % (0-4); Hemoglobin 10.2 g/dl (14.0-18.0); Imm Gran Abs Auto 0.03 X10*3/uL (0.00-0.03); Imm Gran Pct Auto 0.4 % (0.0-0.4); Lymphocytes Absolute Auto 0.9 X10*3/uL (1.2-4.9); Lymphocytes Percent Auto 11.1 % (20-40); Mean Corpuscular HGB Conc 31.9 g/dl (31.0-36.0); Mean Corpuscular Hemoglobin 26.3 pg (27.0-33.0); Mean Corpuscular Volume 82.5 fL (80-98); Mean Platelet Volume 9.2 fL (9.4-12.4); Monocytes Percent Auto 13.2 % (2-11); Neutrophils Absolute Auto 5.8 X10*3/uL (2.0-8.3); Neutrophils Percent Auto 74.3 % (45-73); Platelet Count 448 X10*3/uL (160-400); Red Blood Count 3.88 X10*6/uL (4.60-5.80); Red Cell Distribution Width 20.6 % (11.0-16.0); White Blood Count 7.7 X10*3/uL (4.8-10.8)
[2021-05-04 15:29] LABS: Alanine Aminotransferase 6 U/L (0-40); Albumin Level 3.9 g/dL (3.5-5.0); Alkaline Phosphatase 61 U/L (39-117); Anion Gap 13 (12-20); Aspartate Amino Transferase 18 U/L (5-37); Bilirubin Total 0.6 mg/dL (0.0-1.0); Blood Urea Nitrogen 14 mg/dL (9-16); Calcium 8.8 mg/dL (8.4-10.2); Carbon Dioxide 27 mmol/L (22-29); Chloride 102 mmol/L (96-108); Creatinine Clr Calc Pharmacy 94.5; Estimated Glomerular Filt Rate > 60; Glucose Random 94 mg/dL (60-115); Potassium 4.6 mmol/L (3.3-5.1); Sodium 137 mmol/L (135-145); Total Protein 7.3 g/dL (6.5-8.0)
[2021-05-04 15:38] LABS: Lactate Dehydrogenase 226 U/L (118-273)
[2021-05-04 15:55] LABS: Iron 29 mcg/dL (45-160); Percent Iron Saturation 10 % (15-50); Total Iron Binding Capacity 285 mcg/dL (228-428); Unsaturated Iron Binding 256 ug/dL
[2021-05-04 16:16] LABS: Ferritin 84 ng/mL (20-250)
[2021-05-04 16:22] LABS: Vitamin B12 218 pg/mL (200-900)
[2021-05-05 13:46] LABS: Haptoglobin 155 mg/dL (43-212)
--- NOTE | 2021-09-27 11:12 | MHC.HEMONC ---
Per Dr Merchant. 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 Orders given to Dee Dee for auth.
--- NOTE | 2021-09-27 14:22 | HO.HEMONCPA ---
PA FOR RITUXAN REQUESTED. AWAITING DECISION.
--- NOTE | 2021-09-28 13:17 | MHC.HEMONC ---
Pt called because he wants to return to work and needs clearance. Dr Merchant also asked about his prednisone dosing and taper. I consulted with Dr Merchant. Pt may return to work (Jaimee writing note and will fax to [employer]). Pt must continue on prednisone 60mg until he starts Rituxin (appt to be determined once PA is set). Pt is aware of all of this.
--- NOTE | 2021-10-01 15:28 | MHC.HEMONC ---
No PA required for Rituxin as long as it is given at [facility] per Caridad at [employer].
--- NOTE | 2021-10-07 15:50 | MHC.HEMONC ---
Pt came to main outpatient lab to have his pre-chemo labs drawn today. Nurse confirmed dary/ Vito at the lab that CBC, CMP, TSH, and Hep B were all drawn. Pt is to return to Hem/Onc lab the following morning, 10/08/21, for new start, C1D1 Rituximab.
[2021-10-08 08:00] VITALS: BP 117/59; PULSE 79; RESP 18; TEMP 36.6; O2SAT 100; BMI 21.6
[2021-10-08] MEDS: Ondansetron ODT 8 MG TAB.RAPDIS TRANSLINGU (08:27)
[2021-10-08] MEDS: Acetaminophen 325 MG TABLET 650 MG PO (08:28)
[2021-10-08] MEDS: diphenhydrAMINE HCL 50 MG/ML VIAL 25 MG IVPUSH (08:28)
--- NOTE | 2021-10-08 09:02 | MHC.HEMONC ---
Pt here for week #1 Rituxin. His labs were done and WNL. PLT remain low. I reviewed how Rituxin works in the body and possible side effects especially with dose #1. He is aware of s/sx of allergic reaction and how we will respond. He will continue on prednisone 60mg until after 1st Rituxin dose and Dr Merchant's return Monday.
[2021-10-08] MEDS: SODIUM CHLORIDE 0.9% IV (09:16)
[2021-10-08] MEDS: RITUXIMAB IV (09:16)
--- NOTE | 2021-10-08 15:06 | MHC.HEMONC ---
Pt here for C1D1 Rituxan. Chemo teach done by Rosa M Vázquez RN. Consent for chemo obtained. #22 angio inserted in right forearm-tolerated well. 0.9% NS infusing. Pt states he feels well today. States he is a little anxious today. Lab results from yesterday (10/07/21) reviewed. Okay to receive treatment today. Pre medicated with benadryl, tylenol, zofran. Rituxan given as ordered-tolerated well. Pt states he felt warm prior to end of chemotherapy. Dr Castaneda notified-will monitor pt for additional 30 minutes before discharge. Follow up appointment scheduled. Pt to return on 10/14/21 for lab draw. Next chemo on 10/15/21. Discharge packet given. Pt states warm feeling has gone. Pt instructed to call department for any side effects. Dr Castaneda sent script for zofran to pt's pharmacy-pt notified
[2021-10-15 07:53] VITALS: BP 123/64; PULSE 86; RESP 18; TEMP 36.5; O2SAT 98; BMI 21.3
[2021-10-15] MEDS: diphenhydrAMINE HCL 50 MG/ML VIAL 25 MG IVPUSH (08:12)
[2021-10-15] MEDS: Acetaminophen 325 MG TABLET 650 MG PO (08:13)
[2021-10-15] MEDS: Ondansetron ODT 8 MG TAB.RAPDIS TRANSLINGU (08:13)
[2021-10-15] MEDS: SODIUM CHLORIDE 0.9% IV (09:15)
[2021-10-15] MEDS: RITUXIMAB IV (09:15)
--- NOTE | 2021-10-15 10:26 | P.PNHO_ITS ---
Medical Summary - Medical Summary Date of Service: 10/15/21 Chief complaint: follow-up for: 1. ITP. 2. History of Hodgkin's lymphoma. Medical Summary: DIAGNOSES: 1. Hodgkin's Lymphoma, diagnosed November 1989. Left supraclavicular adenopathy. Chest x-ray revealed a mediastinal mass. Staging laparotomy negative. 2. 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 3. Recent diagnosis of ITP. THERAPY: Received radiation therapy to inverted-Y field, stayed in remission for 5 years. He then developed recurrence in the right inguinal area. He was treated with 6 cycles of ABVD completed April 1996. He had radiation induced hypothyroidism. 2. Was treated with prednisone. On rituximab week 2. Interval History Interval history: This is a pleasant 60 year-old gentleman, here for a follow-up visit. He was admitted to the hospital on 09/20, with severe thrombocytopenia. I saw him on 09/21: He presented, with a chief complaint of low platelets. He tells me that he had felt weak and tired for a couple days. Over the weekend on Monday he had some trouble breathing. He had a cough. He took extra Lasix on Monday and Monday 60 mg in the morning and 40 in the evening both days. Monday night, he felt a little bit better however Monday during the day he felt more tired and fatigued. He noted petechiae on his legs. He saw his commercial hvac service technician, Dr. Wyman who ordered labs checked his pacemaker function. He was incidentally noted to have very low platelets: 1999. He was noted to have a petechial rash; he was sent to the ER for further evaluation. Patient denies any headaches blurry visions, chest pain or palpitations, denies any signs of infection or recent viral infections; Denies any numbness tingling or focal weakness. Reports mild swelling of his ankles. CT head showed no acute findings. He was started on a course of Decadron, 40 mg daily for 5 days. Bone marrow exam was done on 09/21: It revealed megakaryocytic hyperplasia without features of dysplasia, sugg esting peripheral destruction as a cause of thrombocytopenia. Flow cytometry was negative for a lymphoproliferative disorder. Cytogenetics revealed normal male karyotype. He was given prednisone, as an outpatient. He has been started on rituximab as more definitive therapy for ITP. He received the 1st dose on 10/08. Here for cycle 2. He is doing quite well. He tells me during the infusion he had a slight fever. Infusion was stopped he was given premeds and then continued, doubt any further symptoms. He did have a touch of nausea that day. The Zofran to care of it. He denies any further GI complaints. He did feel a bit tired last week but now he is back to normal. His appetite is actually been really good. He has gained weight. Denies any fever chills no night sweats. No headache no dizziness. No chest pain or trouble breathing. Denies any easy bruising nor systemic bleeding. He has actually been working for the last couple of weeks. He is in good spirits. Rest of the review of systems is unremarkable. Previous history: He had a CTA on 01/14/20 which revealed: 1. No acute pulmonary embolism. Prior segmental filling defects resolved since exam 10/25/2020. 2. Moderate right effusion slightly decreased since prior exam 10/25/2020. 3. Subsegmental atelectasis anterior medial right upper lobe and right posterior basal region. No segmental or lobar airspace consolidation. No pneumothorax. VTE: negative He tells me back in January, he was in house with a hip fracture. Discharge summary: He presented to the emergency department after sustaining a fall while getting out of his car. He was in the parking lot of [facility] when he turned and took a step and fell. He landed on the left side. He was unable to get up due to pain. He called security who assisted him to the emergency department where he was evaluated. X-rays of the left hip demonstrated impacted subcapital fracture of the femur. Orthopedics was consulted and the plan was to admit him to the orthopedic service and plan for surgical intervention. The patient underwent a successful left hip percutaneous pinning, was transferred to PACU and then to the floor to recover. During their stay, their vitals were stable. POD1 he was started on Lovenox for DVT ppx, they also received physical therapy and occupational therapy services twice a day. Postop day 3 his hematocrit dropped to 28.4 therefore he was transfused with 1 unit of packed red blood cells followed by 20 mg of IV Lasix. Prior to discharge, dressing remained clean dry and intact the plan is to be transferred to a short-term rehab. He was seen by GI Dr. Leal, during that admission: stools, where he required blood transfusion. He underwent upper endoscopy and colonoscopy to the terminal ileum. The colonoscopy showed multiple polyps consistent with his previous history of Hartsburg syndrome with hamartomatous colon polyps. He also had large internal hemorrhoids and a lipoma. An upper endoscopy had been done the day prior to the colonoscopy, which showed gastric polyps, but no upper GI bleeding source was identified. He was discharged after his hematocrit was stable and outpatient followup capsule endoscopy was to be arranged. At the time, he presented with anemia and Hemoccult-positive stools. He had been on Eliquis for pulmonary embolism and also been on aspirin. It was felt safe to restart these medications at the time of his discharge. He was in rehab for 2 weeks and then he went home. 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 First week was tough however now he is getting the hand of it. His legs are getting stronger. He denies any adenopathy. Energy level is back to baseline. No abdominal pain nausea vomiting heartburn indigestion. His bowels are moving without any gross blood in it. He enjoys a good appetite. He has lost weight intentionally. He is eating healthy. He has cerebellar degeneration. He has difficulty with balance. He follows closely with the neurologist. He is in good spirits. Rest of the review of systems is unremarkable. He tells me he lost [address] Suero who attributed the weight loss to abnormal thyroid function. His Synthroid was 175 mcg was lowered down to 125 mcg. He is starting to gain weight. Past medical history: He tells me he has had cardiac issues. He was admitted to the hospital in January 2019, for chest pain and shortness of breath. A stent was considered the block age was less than 30%. The plan is to optimize medical therapy, and for close observation. He was on Lasix 20 mg a day however he developed some lower extremity edema cough and shortness of breath. Lasix has been increased to 20 mg b.i.d. since then his symptoms have resolved. He also mentions that the battery on his pacemaker is due to be changed. He is actually seeing the commercial hvac service technician here on [place] for his 1st appointment. He has been under care of vascular. They are contemplating starting Eliquis in future. He has been going back for annual colonoscopies under the care of Dr. Gillis. Next one is scheduled for September 2020. Review of Systems - Constitutional Reports system reviewed and no additional complaints, except as documented - Eyes Reports system reviewed and no additional complaints, except as documented - ENT Reports system reviewed and no additional complaints, except as documented - Cardiovascular Reports system reviewed and no additional complaints, except as documented - Respiratory Reports no additional respiratory complaints - Gastrointestinal Reports system reviewed and no additional complaints, except as documented - Genitourinary Genitourinary: Reports no additional male genitourinary complaints - Musculoskeletal Reports system reviewed and no additional complaints, except as documented - Integumentary/Breasts Skin/Breast: Reports no additional skin complaints - Neurologic Reports system reviewed and no additional complaints, except as documented, Reports abnormal gait, Denies headache(s), Denies memory loss - Psychiatric Reports system reviewed and no additional complaints, except as documented - Endocrine Reports no additional endocrine complaints - Hematologic/Lymphatic Reports system reviewed and no additional complaints, except as documented - Allergic/Immunologic Reports system reviewed and no additional complaints, except as documented PMFSH Medical History: Medical History (Last Reviewed 09/21/21 @ 20:25 by Mason Mattson RN) Anemia Aortic stenosis, severe Cardiac resynchronization therapy defibrillator (ASSOCIATE PROF[employer]-D) in place Complete heart block Congestive heart failure COVID-19 vaccine series completed Hartsburg syndrome HFrEF (heart failure with reduced ejection fraction) Hodgkins lymphoma Hypocalcemia Hypotension (arterial) Hypothyroidism LBBB (left bundle branch block) Leukocytosis Low TSH level Multinodular thyroid Multinodular thyroid NICM (nonischemic cardiomyopathy) Osteoporosis Pacemaker Pulmonary embolism Recurrent pleural effusion on right Rib fracture Rib pain Right hip pain Shortness of breath Sinus tachycardia Vitamin D deficiency Functional capacity: independent ambulation Patient : No Family History: Family History (Last Reviewed 09/21/21 @ 14:30 by Coni Jean Baptiste MD) Father Healthy adult male Mother Bladder cancer Surgical History: Surgical History (Last Reviewed 09/21/21 @ 14:30 by Coni Jean Baptiste MD) H/O splenectomy History of appendectomy History of cardiac pacemaker History of esophagogastroduodenoscopy (EGD) History of hip surgery Hx of colonoscopy S/P TAVR (transcatheter aortic valve replacement) Social History: Social History (Last Reviewed 09/21/21 @ 14:30 by Coni Jean Baptiste MD) Living Situation History: Household Members: Spouse Household Members: Family Housing: House Are you a primary manager wound care to a significant other at home: No Do you presently have visiting nurse or other home services: No Tobacco History: Patient Tobacco Use Status: Never used Tobacco e-Cigarette/Vaping Use: Never Used Second Hand Smoke Exposure: No Advance Directives: Advance Directives: No Advance Directives Information Provided: No Advance Directives Date on File: 01/25/21 Nutrition Assessment: Patient : No Occupation Assessmet: service: Yes Current occupational status: employed Current occupational exposures/hazards: No Oncology Screenings - ECOG Performance Status ECOG Performance Status: 0 Home Medications and Allergies Current Medications: Current Medications Acetaminophen (Acetaminophen 325 Mg Tablet) 650 mg PO ONCE JERRELL Stop: 10/15/21 23:59 Last Admin: 10/15/21 08:13 Dose: 650 mg Documented by: Diphenhydramine HCl (Diphenhydramine Hcl 50 Mg/Ml Vial) 25 mg IVPUSH ONCE JERRELL Stop: 10/15/21 23:59 Last Admin: 10/15/21 08:12 Dose: 25 mg Documented by: Heparin Sodium (Porcine) (Heparin Sodium,Porcine Flush 500 Unit/5 Ml Syringe) 500 unit IVFLUSH ONCE JERRELL Stop: 10/15/21 23:59 Rituximab 500 mg/ Rituximab (200 mg/ Sodium Chloride) 320 mls @ 0 mls/hr IV ONCE JERRELL; Protocol Stop: 10/15/21 23:59 Last Infusion: 10/15/21 09:45 Dose: 90 mls/hr Documented by: Ondansetron HCl (Ondansetron Odt 8 Mg Tab.Rapdis) 8 mg TRANSLINGU ONCE JERRELL Stop: 10/15/21 23:59 Last Admin: 10/15/21 08:13 Dose: 8 mg Documented by: Home Medications Medication Instructions Recorded Confirmed Type furosemide 40 mg tablet 40 mg PO DAILY@1700 08/23/21 10/08/21 History furosemide 40 mg tablet 60 mg PO DAILY 09/20/21 10/08/21 History Allergies Allergy/AdvReac Type Severity Reaction Status Date / Time No Known Allergies Allergy Verified 10/08/21 08:33 [No Known Allergies*] Exam Vital signs: Vital Signs Temp 97.7 F 10/15/21 07:53 Pulse 86 10/15/21 07:53 Resp 18 10/15/21 07:53 BP 123/64 10/15/21 07:53 Pulse Ox 98 10/15/21 07:53 Intake & Output 10/14/21 10/15/21 10/15/21 18:59 06:59 18:59 Intake Total 22.5 / 22.5 Balance 22.5 / 22.5 Intake: Intake, IV Amount 22.5 / 22.5 riTUXimab 500 mg riTUXimab 200 22.5 / 22.5 mg In 0.9 % Sodium Chloride 250 ml @ As Directed IV ONCE JERRELL Rx#:[id number] Other: Weight 69.5 kg [place] Weight in Grams 95057 Weight 69.5 kg BMI result Body Mass Index 21.3 - Constitutional Present: no acute distress - Routine HEENT Exam Head: Present: normal inspection Eye: Present: normal appearance ENT: Present: mucous membranes moist - Routine Neck Exam Present: full ROM - Routine Respiratory Exam Present: CTAB - Routine Cardiovascular Exam Cardiovascular: Present: RRR, S1 - Routine Abdominal Exam Present: soft, nontender - Routine Extremities Exam Present: nontender - Routine Back/Spine/Pelvis Exam Back/Spine: Present: full ROM - Routine Skin Exam Present: intact - Routine Neurological Exam Present: alert, oriented X3 - Detailed Neurological Exam: Coma Scale Eye Opening: Spontaneous (4) - Routine Psychiatric Exam Present: normal affect. Absent: agitated Data - Labs CBC & Chem 7: 05/04/21 14:43 05/04/21 14:43 - Imaging Radiologist's impression: ITS Impressions Chest X-Ray 05/04/20 15:46 IMPRESSION: 1. Small right effusion. Vascularity normal. Heart size normal. 2. Old mediastinal lymph node calcification, similar to prior report 01/12/2011. 3. Large oval smooth calcification right anterior abdomen approximately 3 x 5 cm. Assessment and Plan Patient Active problem list reviewed?: Yes (1) Hodgkins lymphoma Status: Inactive Assessment and plan: 60 year-old gentleman with history of Hodgkin's Lymphoma diagnosed in 1989. He had disease recurrence in 1994, for which he had systemic chemotherapy until April 1996. He is clinically in remission and doing fairly well, for a long time. He was recently admitted with ITP. He is back at work. He has a Normal exam and blood work today. LDH: 226. He had a CTA of the chest done which was non revealing. PLAN: He had abnormal thyroid function. Ultrasound of the thyroid revealed a nodule. He underwent an FNA, on 09/16: Redfox system calcification: Atypia of undetermined significance, category 3. AFIRMA genomic sequencing: No results. Insufficient healed I RNA. He will probably need repeat testing. That will be set up by Dr. Suero. He will return in 6 months for a follow-up. Thank you, CC: Denis. Dr. Rios. Dr. Javier. (2) 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Status: Acute Assessment and plan: 2. Hartsburg's Syndrome. He has seen a genetic counselor, Given the high risk for malignancy, cancer surveillance is the major focus of management. He is undergoing annual colonoscopies by Dr. Gillis, at [facility]. In terms of surveillance, a recommendation from NCCN is: 1) Annual comprehensive physical examination. 2) Thyroid ultrasound annually. 3) Colonoscopy every 5 years, more frequent if symptomatic. However in view of the Hartsburg's syndrome he should have annual colonoscopy. 4) Renal ultrasound to be repeated every 1 to 2 years. 5) Annual skin exam, also need to have a low index of suspicion for dysplastic gangliocytoma of the cerebellum. 6) If patient has symptoms, then neuroimaging is recommended, anyone with persistent headache. Previously he was noted to be anemic.Iron studies: /. 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 He is no longer anemic. PLAN: He had a colonoscopy last year by Dr. eLal. He was seen for anemia, January. He is currently maintained on iron. He will be following up with Dr. Leal for further evaluation including colonoscopy and video capsule study. Thank you, CC: Dr. Mann. Dr. Leal. (3) Acute ITP Status: Acute Assessment and plan: This is a pleasant 60-year-old gentleman with a previous history of Hodgkin's lymphoma 20 years ago. He had mantle field radiation. Lately he has had cardiac issues. He presented to the commercial hvac service technician, on 09/19. Was incidentally noted to have a platelet count of 2,000. He was admitted. Overnight, he received platelets and a dose of Decadron. DIFFERENTIAL DIAGNOSIS considered was: 1.ITP: is most likely. 2. Infection related: He did bottom turner to be COVID positive. That is most likely the underlying cause of the thrombocytopenia. 3. Drug-induced thrombocytopenia. 4. Myelo infiltrative disorder: Patient has history of Hodgkin's lymphoma. 5. DIC: Is in the differential. 6. TTP/HUS: not likely. He does not have the PENTAD. He was given a unit of platelets, on 09/20. He received a dose of Decadron 10 mg IV. Platelets came up to 21. He was then started on Decadron 40 mg p.o. daily for 5 days. A bone marrow exam was done on 09/21, under platelet cover. It revealed megakaryocytic hyperplasia without features of dysplasia, suggesting peripheral destruction as a cause of thrombocytopenia. Flow cytometry was negative for a lymphoproliferative disorder. Cytogenetics revealed normal male karyotype. He was given prednisone, as an outpatient. He has been started on rituximab as more definitive therapy for ITP. Meanwhile he was started on oral Decadron 40 mg daily for 5 days. Serial platelet counts: 09/21: 21, 09/22: 48, 09/23: 74. 09/27: 22. He was then started on prednisone 60 mg daily. 10/07: 43. Database: 10/14: CBC: WBC 15.9, HGB 14, HCT 41.9, PLT 228. CMP: Lytes WNL, CO2 32, glucose 131, BUN 26, ASSOCIATE [employer]ENCE 1.0. LFTs: 0.8/66//. Jose Alfredo 9.3, Alb 4. He has been started on rituximab. He received his 1st dose on 10/08. He tolerated it very well. He is here to receive the 2nd dose. Platelet count today is 228. This is encouraging. PLAN: He will complete the weekly x4 rituximab course. Will start to taper his prednisone, now that his platelets have normalized. Will taper by 5 mg Q 3 days down to DC over the next month or so. He will go down to 55 mg from tomorrow. He will have labs done next Monday and return for Rituxan on . Hopefully he will have a lasting remission. Thank you, Cc: Roca. Leal. - Time Spent With Patient Time Spent with Patient (in minutes): 30
--- NOTE | 2021-10-15 15:49 | MHC.HEMONC ---
Pt here for C2D1 Rituxan. Labs drawn yesterday reviewed-okay to receive treatment today. Pt states he feels well except for fatigue. #22 angio inserted in right forearm-blood return noted. Pre medicated with zofran, benadryl, tylenol. Rituxan given as ordered-tolerated well today. Dr Merchant into see pt- plan to prednisone from 60mg to 55mg for 3 days, then 50mg for 3 days, then 45mg for 3 days, then 40mg for 3 days, then 35mg for [address] Merchant. Schedule for taper given to pt-Verbalizes understanding of info given. Peripheral IV removed-no edema or redness at site. Follow up appointment scheduled. Discharge packet given.
--- NOTE | 2021-10-21 15:07 | MHC.HEMONC ---
Pre chemo labs drawn by director of convention services-specimen to lab
[2021-10-22 07:44] VITALS: BP 112/63; PULSE 53; RESP 18; TEMP 36.4; O2SAT 100; BMI 21.2
[2021-10-22] MEDS: Acetaminophen 325 MG TABLET 650 MG PO (08:13)
[2021-10-22] MEDS: Ondansetron ODT 8 MG TAB.RAPDIS TRANSLINGU (08:14)
[2021-10-22] MEDS: diphenhydrAMINE HCL 50 MG/ML VIAL 25 MG IVPUSH (08:15)
[2021-10-22] MEDS: RITUXIMAB IV (09:07)
[2021-10-22] MEDS: SODIUM CHLORIDE 0.9% IV (09:07)
--- NOTE | 2021-10-22 10:55 | MHC.HEMONC ---
Pt here for C3D1 Rituxan. Labs drawn yesterday reviewed-platelets 21-reported to Dr Merchant. Plan to stop prednisone taper and resume previous dose of 60mg daily-pt notified. Pt states he had a slight amount of blood when brushing teeth last pm-otherwise he feels well. #22 angio inserted right forearm with blood return noted. Pre medicated with tylenol, benadryl, zofran. Rituxan given as ordered-tolerated well. Peripheral IV removed-no edema or redness at site. Discharge packet given with next appointment scheduled for 10/29/21
--- NOTE | 2021-10-28 15:26 | MHC.HEMONC ---
Pre chemo labs drawn by promotions manager-specimen to lab.
--- NOTE | 2021-10-28 16:47 | MHC.HEMONC ---
Pt presented to central outpatient lab today, had his pre-chemo labs drawn.
[2021-10-29 07:51] VITALS: BP 121/63; PULSE 82; RESP 18; TEMP 36.7; O2SAT 99; BMI 22.8
--- NOTE | 2021-10-29 08:39 | P.PNHO_ITS ---
Medical Summary - Medical Summary Date of Service: 10/29/21 Chief complaint: Follow-up for: ITP. History of Hodgkin's lymphoma. Medical Summary: DIAGNOSES: 1. Hodgkin's Lymphoma, diagnosed November 1989. Left supraclavicular adenopathy. Chest x-ray revealed a mediastinal mass. Staging laparotomy negative. 2. 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 3. Recent diagnosis of ITP. THERAPY: Received radiation therapy to inverted-Y field, stayed in remission for 5 years. He then developed recurrence in the right inguinal area. He was treated with 6 cycles of ABVD completed April 1996. He had radiation induced hypothyroidism. 2. He was started on Prednisone, currently 60 mg. On rituximab week 4. Interval History Interval history: This is a pleasant 60 year-old gentleman, here for a follow-up visit. Overall he is doing pretty good. Only complaint is a little constipation. He was advised to take MiraLax. His platelet count had come up to 228. I started tapering his steroids. He was advised to go down to 55 mg. On 10/21 platelets dipped down to 21. Prednisone dose was increased back up to 60 mg. Platelet count yesterday was 145. He tells me his energy level is good. He worked till 23:30 last night. He is tolerating the Rituxan very well. He just feels a bit tired for a couple hours after the treatment. He denies any easy bruising nor systemic bleeding. His appetite is actually been really good. He has gained weight. Denies any fever chills no night sweats. No headache no dizziness. No chest pain or trouble breathing. Denies any easy bruising nor systemic bleeding. He has actually been working for the last couple of weeks. He is in good spirits. Rest of the review of systems is unremarkable. Interim history: He was admitted to the hospital on 09/20, with severe thrombocytopenia. I saw him on 09/21: He presented, with a chief complaint of low platelets. He tells me that he had felt weak and tired for a couple days. Over the weekend on Monday he had some trouble breathing. He had a cough. He took extra Lasix on Monday and Monday 60 mg in the morning and 40 in the evening both days. Monday night, he felt a little bit better however Monday during the day he felt more tired and fatigued. He noted petechiae on his legs. He saw his web press operator helper offset, Dr. Wyman who ordered labs checked his pacemaker function. He was incidentally noted to have very low platelets: 1999. He was noted to have a petechial rash; he was sent to the ER for further evaluation. Patient denies any headaches blurry visions, chest pain or palpitations, denies any signs of infection or recent viral infections; Denies any numbness tingling or focal weakness. Reports mild swelling of his ankles. CT head showed no acute findings. He was started on a course of Decadron, 40 mg daily for 5 days. Bone marrow exam was done on 09/21: It revealed megakaryocytic hyperplasia without features of dysplasia, suggesting peripheral destruction as a cause of thrombocytopenia. Flow cytometry was negative for a lymphoproliferative disorder. Cytogenetics revealed normal male karyotype. He was given prednisone, as an outpatient. He has been started on rituximab as more definitive therapy for ITP. He received the 1st dose on 10/08. He tells me during the infusion he had a slight fever. Infusion was stopped he was given premeds and then continued, doubt any further symptoms. He did have a touch of nausea that day. The Zofran to care of it. He denies any further GI complaints. Previous history: He had a CTA on 01/14/20 which revealed: 1. No acute pulmonary embolism. Prior segmental filling defects resolved since exam 10/25/2020. 2. Moderate right effusion slightly decreased since prior exam 10/25/2020. 3. Subsegmental atelectasis anterior medial right upper lobe and right posterior basal region. No segmental or lobar airspace consolidation. No pneumothorax. VTE: negative He tells me back in January, he was in house with a hip fracture. Discharge summary: He presented to the emergency department after sustaining a fall while getting out of his car. He was in the parking lot of [facility] when he turned and took a step and fell. He landed on the left side. He was unable to get up due to pain. He called security who assisted him to the emergency department where he was evaluated. X-rays of the left hip demonstrated impacted subcapital fracture of the femur. Orthopedics was consulted and the plan was to admit him to the orthopedic service and plan for surgical intervention. The patient underwent a successful left hip percutaneous pinning, was transferred to PACU and then to the floor to recover. During their stay, their vitals were stable. POD1 he was started on Lovenox for DVT ppx, they also received physical therapy and occupational therapy services twice a day. Postop day 3 his hematocrit dropped to 28.4 therefore he was transfused with 1 unit of packed red blood cells followed by 20 mg of IV Lasix. Prior to discharge, dressing remained clean dry and intact the plan is to be transferred to a short- term rehab. He was seen by GI Dr. Leal, during that admission: stools, where he required blood transfusion. He underwent upper endoscopy and colonoscopy to the terminal ileum. The colonoscopy showed multiple polyps consistent with his previous history of 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with hamartomatous colon polyps. He also had large internal hemorrhoids and a lipoma. An upper endoscopy had been done the day prior to the colonoscopy, which showed gastric polyps, but no upper GI bleeding source was identified. He was discharged after his hematocrit was stable and outpatient followup capsule endoscopy was to be arranged. At the time, he presented with anemia and Hemoccult-positive stools. He had been on Eliquis for pulmonary embolism and also been on aspirin. It was felt safe to restart these medications at the time of his discharge. He was in rehab for 2 weeks and then he went home. 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 First week was tough however now he is getting the hand of it. His legs are getting stronger. He denies any adenopathy. Energy level is back to baseline. No abdominal pain nausea vomiting heartburn indigestion. His bowels are moving without any gross blood in it. He enjoys a good appetite. He has lost weight intentionally. He is eating healthy. He has cerebellar degeneration. He has difficulty with balance. He follows closely with the neurologist. He is in good spirits. Rest of the review of systems is unremarkable. He tells me he lost [address] Suero who attributed the weight loss to abnormal thyroid function. His Synthroid was 175 mcg was lowered down to 125 mcg. He is starting to gain weight. Past medical history: He tells me he has had cardiac issues. He was admitted to the hospital in January 2019, for chest pain and shortness of breath. A stent was considered the block age was less than 30%. The plan is to optimize medical therapy, and for close observation. He was on Lasix 20 mg a day however he developed some lower extremity edema cough and shortness of breath. Lasix has been increased to 20 mg b.i.d. since then his symptoms have resolved. He also mentions that the battery on his pacemaker is due to be changed. He is actually seeing the web press operator helper offset here on Monday for his 1st appointment. He has been under care of vascular. They are contemplating starting Eliquis in future. He has been going back for annual colonoscopies under the care of Dr. Gillis. Next one is scheduled for September 2020. Review of Systems - Constitutional Reports system reviewed and no additional complaints, except as documented - Eyes Reports system reviewed and no additional complaints, except as documented - ENT Reports system reviewed and no additional complaints, except as documented - Cardiovascular Reports system reviewed and no additional complaints, except as documented - Respiratory Reports no additional respiratory complaints - Gastrointestinal Reports system reviewed and no additional complaints, except as documented - Genitourinary Genitourinary: Reports no additional male genitourinary complaints - Musculoskeletal Reports system reviewed and no additional complaints, except as documented - Integumentary/Breasts Skin/Breast: Reports no additional skin complaints - Neurologic Reports system reviewed and no additional complaints, except as documented, Reports abnormal gait, Denies headache(s), Denies memory loss - Psychiatric Reports system reviewed and no additional complaints, except as documented - Endocrine Reports no additional endocrine complaints - Hematologic/Lymphatic Reports system reviewed and no additional complaints, except as documented - Allergic/Immunologic Reports system reviewed and no additional complaints, except as documented PMFSH Medical History: Medical History (Last Reviewed 09/21/21 @ 20:25 by Mason Mattson RN) Anemia Aortic stenosis, severe Cardiac resynchronization therapy defibrillator (ENROBING MACHINE FEEDER-D) in place Complete heart block Congestive heart failure COVID-19 vaccine series completed 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HFrEF (heart failure with reduced ejection fraction) Hodgkins lymphoma Hypocalcemia Hypotension (arterial) Hypothyroidism LBBB (left bundle branch block) Leukocytosis Low TSH level Multinodular thyroid Multinodular thyroid NICM (nonischemic cardiomyopathy) Osteoporosis Pacemaker Pulmonary embolism Recurrent pleural effusion on right Rib fracture Rib pain Right hip pain Shortness of breath Sinus tachycardia Vitamin D deficiency Functional capacity: independent ambulation Family History: Family History (Last Reviewed 09/21/21 @ 14:30 by Coni Jean Baptiste MD) Father Healthy adult male Mother Bladder cancer Surgical History: Surgical History (Last Reviewed 09/21/21 @ 14:30 by Coni Jean Baptiste MD) H/O splenectomy History of appendectomy History of cardiac pacemaker History of esophagogastroduodenoscopy (EGD) History of hip surgery Hx of colonoscopy S/P TAVR (transcatheter aortic valve replacement) Social History: Social History (Last Reviewed 09/21/21 @ 14:30 by Coni Jean Baptiste MD) Living Situation History: Household Members: Spouse Household Members: Family Housing: House Are you a primary acute care physical therapist to a significant other at home: No Do you presently have visiting nurse or other home services: No Tobacco History: Patient Tobacco Use Status: Never used Tobacco e-Cigarette/Vaping Use: Never Used Second Hand Smoke Exposure: No Advance Directives: Advance Directives: No Advance Directives Information Provided: No Advance Directives Date on File: 01/25/21 Nutrition Assessment: Patient : No Occupation Assessmet: service: Yes Current occupational status: employed Current occupational exposures/hazards: No Oncology Screenings - ECOG Performance Status ECOG Performance Status: 1 Home Medications and Allergies Current Medications: Current Medications Acetaminophen (Acetaminophen 325 Mg Tablet) 650 mg PO ONCE JERRELL Stop: 10/29/21 23:59 Diphenhydramine HCl (Diphenhydramine Hcl 50 Mg/Ml Vial) 25 mg IVPUSH ONCE JERRELL Stop: 10/29/21 23:59 Heparin Sodium (Porcine) (Heparin Sodium,Porcine Flush 500 Unit/5 Ml Syringe) 500 unit IVFLUSH ONCE JERRELL Stop: 10/29/21 23:59 Rituximab 500 mg/ Rituximab (200 mg/ Sodium Chloride) 320 mls @ 0 mls/hr IV ONCE JERRELL; Protocol Stop: 10/29/21 23:59 Ondansetron HCl (Ondansetron Odt 8 Mg Tab.Rapdis) 8 mg TRANSLINGU ONCE JERRELL Stop: 10/29/21 23:59 Allergies Allergy/AdvReac Type Severity Reaction Status Date / Time No Known Allergies Allergy Verified 10/08/21 08:33 [No Known Allergies*] Exam Vital signs: Vital Signs Temp 98.1 F 10/29/21 07:51 Pulse 82 10/29/21 07:51 Resp 18 10/29/21 07:51 BP 121/63 10/29/21 07:51 Pulse Ox 99 10/29/21 07:51 Intake & Output 10/28/21 10/29/21 10/29/21 18:59 06:59 18:59 Other: Weight 74.1 kg Weight in Grams 92490 Weight 74.1 kg BMI result Body Mass Index 22.8 - Constitutional Present: no acute distress - Routine HEENT Exam Head: Present: normal inspection Eye: Present: normal appearance ENT: Present: mucous membranes moist - Routine Neck Exam Present: full ROM - Routine Respiratory Exam Present: CTAB - Routine Cardiovascular Exam Cardiovascular: Present: RRR, S1 - Routine Abdominal Exam Present: soft, nontender - Routine Extremities Exam Present: nontender - Routine Back/Spine/Pelvis Exam Back/Spine: Present: full ROM - Routine Skin Exam Present: intact - Routine Neurological Exam Present: alert, oriented X3 - Detailed Neurological Exam: Coma Scale Eye Opening: Spontaneous (4) - Routine Psychiatric Exam Present: normal affect. Absent: agitated Data - Labs CBC & Chem 7: 05/04/21 14:43 05/04/21 14:43 - Imaging Radiologist's impression: ITS Impressions Chest X-Ray 05/04/20 15:46 IMPRESSION: 1. Small right effusion. Vascularity normal. Heart size normal. 2. Old mediastinal lymph node calcification, similar to prior report 01/12/2011. 3. Large oval smooth calcification right anterior abdomen approximately 3 x 5 cm. Assessment and Plan Patient Active problem list reviewed?: Yes (1) Hodgkins lymphoma Status: Inactive Assessment and plan: 60 year-old gentleman with history of Hodgkin's Lymphoma diagnosed in 1989. He had disease recurrence in 1994, for which he had systemic chemotherapy until April 1996. He is clinically in remission and doing fairly well, for a long time. He was recently admitted with ITP. He is back at work. He has a Normal exam and blood work. LDH: 226. He had a CTA of the chest done which was non revealing. PLAN: He had abnormal thyroid function. Ultrasound of the thyroid revealed a nodule. He underwent an FNA, on 09/16: [place] system calcification: Atypia of undetermined significance, category 3. AFIRMA genomic sequencing: No results. Insufficient healed I RNA. He will probably need repeat testing. That will be set up by Dr. Suero. He will return in 6 months for a follow-up. Thank you, CC: Denis. Dr. Rios. Dr. Javier. (2) 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Status: Acute Assessment and plan: 2. [place]'s Syndrome. He has seen a genetic counselor, Given the high risk for malignancy, cancer surveillance is the major focus of management. He is undergoing annual colonoscopies by Dr. Gillis, at [facility]. In terms of surveillance, a recommendation from NCCN is: 1) Annual comprehensive physical examination. 2) Thyroid ultrasound annually. 3) Colonoscopy every 5 years, more frequent if symptomatic. However in view of the [place]'s syndrome he should have annual colonoscopy. 4) Renal ultrasound to be repeated every 1 to 2 years. 5) Annual skin exam, also need to have a low index of suspicion for dysplastic gangliocytoma of the cerebellum. 6) If patient has symptoms, then neuroimaging is recommended, anyone with persistent headache. Previously he was noted to be anemic.Iron studies: . 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 He is no longer anemic. PLAN: He had a colonoscopy last year by Dr. Leal. He was seen for anemia, January. He is currently maintained on iron. He will be following up with Dr. Leal for further evaluation including colonoscopy and video capsule study. He has to call for an appointment. Thank you, CC: Dr. Mann. Dr. Leal. (3) Acute ITP Status: Acute Assessment and plan: This is a pleasant 60-year-old gentleman with a previous history of Hodgkin's lymphoma 20 years ago. He had mantle field radiation. Lately he has had cardiac issues. He presented to the web press operator helper offset, on 09/19. Was incidentally noted to have a platelet count of 2,000. He was admitted. Overnight, he received platelets and a dose of Decadron. DIFFERENTIAL DIAGNOSIS considered was: 1.ITP: is most likely. 2. Infection related: He did income tax return preparer to be COVID positive. That is most likely the underlying cause of the thrombocytopenia. 3. Drug-induced thrombocytopenia. 4. Myelo infiltrative disorder: Patient has history of Hodgkin's lymphoma. 5. DIC: Is in the differential. 6. TTP/HUS: not likely. He does not have the PENTAD. He was given a unit of platelets, on 09/20. He received a dose of Decadron 10 mg IV. Platelets came up to 21. He was then started on Decadron 40 mg p.o. daily for 5 days. A bone marrow exam was done on 09/21, under platelet cover. It revealed megakaryocytic hyperplasia without features of dysplasia, dong ggesting peripheral destruction as a cause of thrombocytopenia. Flow cytometry was negative for a lymphoproliferative disorder. Cytogenetics revealed normal male karyotype. He was given prednisone, as an outpatient. He has been started on rituximab as more definitive therapy for ITP. Meanwhile he was started on oral Decadron 40 mg daily for 5 days. Serial platelet counts: 09/21: 21, 09/22: 48, 09/23: 74. 09/27: 22. He was then started on prednisone 60 mg daily. 10/07: 43. Database: 10/14: CBC: WBC 15.9, HGB 14, HCT 41.9, PLT 228. CMP: Lytes WNL, CO2 32, glucose 131, BUN 26, ENROBING MACHINE FEEDER 1.0. LFTs: 0.8/66//. Jose Alfredo 9.3, Alb 4. He has been started on rituximab. He received his 1st dose on 10/08. He tolerated it very well. He is here to receive the 4th dose. Labs from 10/28: CBC: WBC 18, HGB 14.8, HCT 45.4, PLT 145. CMP: Lytes WNL, glu 139, BUN 24, ENROBING MACHINE FEEDER 0.84. Jose Alfredo 9 7, alb 4.1. LFTs: 0.5/52/23/25. His platelet count from 10/21: 21. He was on a prednisone taper down to 50 mg. His dose was increased back up to 60 mg. Platelet count 10/28: 145. This is encouraging. Hopefully the rituximab will kick in soon. Sometimes there could be a delayed response to it. PLAN: He will complete the weekly x4 rituximab course, today. Will start to taper his prednisone, next week, as long as the platelets stayed normal. Will taper by 5 mg Q 3 days, but monitoring the platelets carefully. Hopefully he will have a lasting remission. Thank you, Cc: Roca. Leal. - Time Spent With Patient Time Spent with Patient (in minutes): 30
[2021-10-29] MEDS: Ondansetron ODT 8 MG TAB.RAPDIS TRANSLINGU (08:56)
[2021-10-29] MEDS: Acetaminophen 325 MG TABLET 650 MG PO (08:56)
[2021-10-29] MEDS: diphenhydrAMINE HCL 50 MG/ML VIAL 25 MG IVPUSH (08:58)
[2021-10-29] MEDS: SODIUM CHLORIDE 0.9% IV (09:29)
[2021-10-29] MEDS: RITUXIMAB IV (09:29)
--- NOTE | 2021-10-29 10:08 | MHC.HEMONCSW ---
PATIENT IS PRESENT FOR TREATMENT. REPORTS COPING AND FEELING WELL. DENIES CONCERNS AT THIS TIME. PATIENT IS AWARE OF MY AVAILABILITY.
--- NOTE | 2021-10-29 13:01 | MHC.HEMONC ---
Pt here for C4D1 Rituxan. Pt states he feels well today-states he has occasional constipation. Encouraged to increase fiber and water intake. Remains on 60mg prednisone daily. #22 angio peripheral IV inserted in left hand with blood return noted. IV not flushing well-removed. #22 angio inserted right hand with blood return noted. Labs drawn yesterday reviewed-okay to receive treatment today. Dr Merchant into see pt. Pre medicated with tylenol, zofran, benadryl. Rituxan given as ordered-tolerated well. Peripheral IV removed-no edema or redness at site. Discharge packet given with next appointment scheduled
--- NOTE | 2021-11-05 15:14 | PM.HEMONCPN ---
Medical Summary - Medical Summary Date of Service: 11/05/21 Chief complaint: follow-up for: 1. ITP. 2. History of Hodgkin's. Medical Summary: DIAGNOSES: 1. Hodgkin's Lymphoma, diagnosed November 1989. Left supraclavicular adenopathy. Chest x-ray revealed a mediastinal mass. Staging laparotomy negative. 2. 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 3. Recent diagnosis of ITP. THERAPY: Received radiation therapy to inverted-Y field, stayed in remission for 5 years. He then developed recurrence in the right inguinal area. He was treated with 6 cycles of ABVD completed April 1996. He had radiation induced hypothyroidism. 2. He was started on Prednisone, currently 60 mg. Completed rituximab week 4, on 10/29. Interval History Interval history: This is a pleasant 60 year-old gentleman, here for a follow-up visit. Overall he is doing quite well. He noted that the day after treatment he would be tired for a few hours. He had occasional bout of nausea but no vomiting. No complaints now. He denies any easy bruising nor systemic bleeding. His appetite is actually been really good. He has gained weight. Denies any fever chills no night sweats. No headache no dizziness. No chest pain or trouble breathing. Denies any easy bruising nor systemic bleeding. He has actually been working for the last four weeks. Denies abdominal pain nausea vomiting heartburn indigestion. Only complaint was a little constipation. He was advised to take MiraLax. He is in good spirits. Rest of the review of systems is unremarkable. Interim history from Last week: His platelet count had come up to 228. I started tapering his steroids. He was advised to go down to 55 mg. On 10/21 platelets dipped down to 21. Prednisone dose was increased back up to 60 mg. Platelet count yesterday was 145. He tells me his energy level is good. He worked till 23:30 last night. He tolerated the Rituxan very well. Interim history: He was admitted to the hospital on 09/20, with severe thrombocytopenia. I saw him on 09/21: He presented, with a chief complaint of low platelets. He tells me that he had felt weak and tired for a couple days. Over the weekend on Monday he had some trouble breathing. He had a cough. He took extra Lasix on Monday and Monday 60 mg in the morning and 40 in the evening both days. Monday night, he felt a little bit better however Monday during the day he felt more tired and fatigued. He noted petechiae on his legs. He saw his pond worker, Dr. Wyman who ordered labs checked his pacemaker function. He was incidentally noted to have very low platelets: 2000. He was noted to have a petechial rash; he was sent to the ER for further evaluation. Patient denies any headaches blurry visions, chest pain or palpitations, denies any signs of infection or recent viral infections; Denies any numbness tingling or focal weakness. Reports mild swelling of his ankles. CT head showed no acute findings. He was started on a course of Decadron, 40 mg daily for 5 days. Bone marrow exam was done on 09/21: It revealed megakaryocytic hyperplasia without features of dysplasia, suggesting peripheral destruction as a cause of thrombocytopenia. Flow cytometry was negative for a lymphoproliferative disorder. Cytogenetics revealed normal male karyotype. He was given prednisone, as an outpatient. He has been started on rituximab as more definitive therapy for ITP. He received the 1st dose on 10/08. He tells me during the infusion he had a slight fever. Infusion was stopped he was given premeds and then continued, doubt any further symptoms. He did have a touch of nausea that day. The Zofran to care of it. He denies any further GI complaints. Previous history: He had a CTA on 01/14/20 which revealed: 1. No acute pulmonary embolism. Prior segmental filling defects resolved since exam 10/25/2020. 2. Moderate right effusion slightly decreased since prior exam 10/25/2020. 3. Subsegmental atelectasis anterior medial right upper lobe and right posterior basal region. No segmental or lobar airspace consolidation. No pneumothorax. VTE: negative He tells me back in January, he was in house with a hip fracture. Discharge summary: He presented to the emergency department after sustaining a fall while getting out of his car. He was in the parking lot of [employer] [facility] [employer] [facility] [employer] when he turned and took a step and fell. He landed on the left side. He was unable to get up due to pain. He called security who assisted him to the emergency department where he was evaluated. X-rays of the left hip demonstrated impacted subcapital fracture of the femur. Orthopedics was consulted and the plan was to admit him to the orthopedic service and plan for surgical intervention. The patient underwent a successful left hip percutaneous pinning, was transferred to PACU and then to the floor to recover. During their stay, their vitals were stable. POD1 he was started on Lovenox for DVT ppx, they also received physical therapy and occupational therapy services twice a day. Postop day 3 his hematocrit dropped to 28.4 therefore he was transfused with 1 unit of packed red blood cells followed by 20 mg of IV Lasix. Prior to discharge, dressing remained clean dry and intact the plan is to be transferred to a short-term rehab. He was seen by GI Dr. Leal, during that admission: stools, where he required blood transfusion. He underwent upper endoscopy and colonoscopy to the terminal ileum. The colonoscopy showed multiple polyps consistent with his previous history of 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with hamartomatous colon polyps. He also had large internal hemorrhoids and a lipoma. An upper endoscopy had been done the day prior to the colonoscopy, which showed gastric polyps, but no upper GI bleeding source was identified. He was discharged after his hematocrit was stable and outpatient followup capsule endoscopy was to be arranged. At the time, he presented with anemia and Hemoccult-positive stools. He had been on Eliquis for pulmonary embolism and also been on aspirin. It was felt safe to restart these medications at the time of his discharge. He was in rehab for 2 weeks and then he went home. 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 First week was tough however now he is getting the hand of it. His legs are getting stronger. He denies any adenopathy. Energy level is back to baseline. No abdominal pain nausea vomiting heartburn indigestion. His bowels are moving without any gross blood in it. He enjoys a good appetite. He has lost weight intentionally. He is eating healthy. He has cerebellar degeneration. He has difficulty with balance. He follows closely with the neurologist. He is in good spirits. Rest of the review of systems is unremarkable. He tells me he lost [address] Suero who attributed the weight loss to abnormal thyroid function. His Synthroid was 175 mcg was lowered down to 125 mcg. He is starting to gain weight. Past medical history: He tells me he has had cardiac issues. He was admitted to the hospital in January 2019, for chest pain and shortness of breath. A stent was considered the block age was less than 30%. The plan is to optimize medical therapy, and for close observation. He was on Lasix 20 mg a day however he developed some lower extremity edema cough and shortness of breath. Lasix has been increased to 20 mg b.i.d. since then his symptoms have resolved. He also mentions that the battery on his pacemaker is due to be changed. He is actually seeing the pond worker here on Monday for his 1st appointment. He has been under care of vascular. They are contemplating starting Eliquis in future. He has been going back for annual colonoscopies under the care of Dr. Gillis. Next one is scheduled for September 2020. Review of Systems - Constitutional Reports no additional constitutional complaints, Denies difficulty sleeping, Denies lack of energy, Denies malaise, Reports weight gain - Eyes Reports no additional eye complaints - ENT Reports no additional ear, nose, mouth, and throat complaints - Cardiovascular Reports no additional cardiovascular complaints - Respiratory Reports no additional respiratory complaints - Gastrointestinal Reports no additional gastrointestinal complaints - Genitourinary Genitourinary: Reports no additional male genitourinary complaints - Musculoskeletal Reports no additional musculoskeletal complaints - Integumentary/Breasts Skin/Breast: Reports no additional skin complaints - Neurologic Reports no additional neurologic complaints, Reports abnormal gait, Denies headache(s), Denies memory loss - Psychiatric Reports no additional psychiatric complaints - Endocrine Reports no additional endocrine complaints - Hematologic/Lymphatic Reports no additional hematologic/lymphatic complaints - Allergic/Immunologic Reports no additional allergic/immunologic complaints [facility] Medical History: Medical History (Last Reviewed 11/05/21 @ 15:55 by Christine Kwon [facility]) Anemia Aortic stenosis, severe Cardiac resynchronization therapy defibrillator (BED BUG EXTERMINATOR-D) in place Complete heart block Congestive heart failure COVID-19 vaccine series completed 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HFrEF (heart failure with reduced ejection fraction) Hodgkins lymphoma Hypocalcemia Hypotension (arterial) Hypothyroidism LBBB (left bundle branch block) Leukocytosis Low TSH level Multinodular thyroid Multinodular thyroid NICM (nonischemic cardiomyopathy) Osteoporosis Pacemaker Pulmonary embolism Recurrent pleural effusion on right Rib fracture Rib pain Right hip pain Shortness of breath Sinus tachycardia Vitamin D deficiency Functional capacity: independent ambulation Family History: Family History (Last Reviewed 11/05/21 @ 15:55 by Christine Kwon CMA) Father Healthy adult male Mother Bladder cancer Surgical History: Surgical History (Last Reviewed 11/05/21 @ 15:55 by Christine Kwon CMA) H/O splenectomy History of appendectomy History of cardiac pacemaker History of esophagogastroduodenoscopy (EGD) History of hip surgery Hx of colonoscopy S/P TAVR (transcatheter aortic valve replacement) Social History: Social History (Last Updated 11/05/21 @ 15:56 by Christine Kwon CMA) Living Situation History: Household Members: Spouse Household Members: Children Housing: House Are you a primary direct care supervisor to a significant other at home: No Do you presently have visiting nurse or other home services: No Alcohol History Details: 1. How often do you have a drink containing alcohol?: b. Monthly or less 2. How many drinks containing alcohol do you have on a typical day when you are drinking?: a. 1 or 2 Tobacco History: Patient Tobacco Use Status: Never used Tobacco e-Cigarette/Vaping Use: Never Used Second Hand Smoke Exposure: No Substance Use History: Use of substances other than those prescribed or required for medical reasons: No Domestic Abuse History: Have you been hit, kicked, punched, or otherwise hurt by someone within the past year? 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 Current occupational status: employed Current occupational exposures/hazards: No Second hand tobacco smoke exposure: No Oncology Screenings - ECOG Performance Status ECOG Performance Status: 0 Home Medications and Allergies Home Medications Medication Instructions Recorded Confirmed Type eplerenone 25 mg tablet (Inspra) 25 mg PO DAILY 11/05/21 11/05/21 History Allergies Allergy/AdvReac Type Severity Reaction Status Date / Time No Known Allergies Allergy Verified 11/05/21 15:56 [No Known Allergies*] Exam Vital signs: Vital Signs Temp 98.1 F 10/29/21 07:51 Pulse 82 10/29/21 07:51 Resp 18 10/29/21 07:51 BP 121/63 10/29/21 07:51 Pulse Ox 99 10/29/21 07:51 Weight 74.1 kg BMI result Body Mass Index 22.8 - Constitutional Present: no acute distress - Routine HEENT Exam Head: Present: normal inspection Eye: Present: normal appearance ENT: Present: mucous membranes moist - Routine Neck Exam Present: full ROM - Routine Respiratory Exam Present: CTAB - Routine Cardiovascular Exam Cardiovascular: Present: RRR, S1 - Routine Abdominal Exam Present: soft, nontender - Routine Extremities Exam Present: nontender - Routine Back/Spine/Pelvis Exam Back/Spine: Present: full ROM - Routine Skin Exam Present: intact - Routine Neurological Exam Present: alert, oriented X3 - Detailed Neurological Exam: Coma Scale Eye Opening: Spontaneous (4) - Routine Psychiatric Exam Present: normal affect. Absent: agitated Data - Labs CBC & Chem 7: 05/04/21 14:43 05/04/21 14:43 - Imaging Radiologist's impression: ITS Impressions Chest X-Ray 05/04/20 15:46 IMPRESSION: 1. Small right effusion. Vascularity normal. Heart size normal. 2. Old mediastinal lymph node calcification, similar to prior report 01/12/2011. 3. Large oval smooth calcification right anterior abdomen approximately 3 x 5 cm. Assessment and Plan Patient Active problem list reviewed?: Yes (1) Hodgkins lymphoma Status: Inactive Assessment and plan: 60 year-old gentleman with history of Hodgkin's Lymphoma diagnosed in 1989. He had disease recurrence in 1994, for which he had systemic chemotherapy until April 1996. He is clinically in remission and doing fairly well, for a long time. He was recently admitted with ITP. He is back at work. He has a Normal exam and blood work. LDH: 226. He had a CTA of the chest done which was non revealing. PLAN: He had abnormal thyroid function. Ultrasound of the thyroid revealed a nodule. He underwent an FNA, on 09/16: [place] system calcification: Atypia of undetermined significance, category 3. AFIRMA genomic sequencing: No results. Insufficient healed I RNA. He will probably need repeat testing. That will be set up by Dr. Ohri. He will return in 6 months for a follow-up. Thank you, CC: Denis. Dr. Rios. Dr. Javier. (2) Lookout syndrome Status: Acute Assessment and plan: 2. Lookout's Syndrome. He has seen a genetic counselor, Given the high risk for malignancy, cancer surveillance is the major focus of management. He is undergoing annual colonoscopies by Dr. Gillis, at [facility]. In terms of surveillance, a recommendation from NCCN is: 1) Annual comprehensive physical examination. 2) Thyroid ultrasound annually. 3) Colonoscopy every 5 years, more frequent if symptomatic. However in view of the Val's syndrome he should have annual colonoscopy. 4) Renal ultrasound to be repeated every 1 to 2 years. 5) Annual skin exam, also need to have a low index of suspicion for dysplastic gangliocytoma of the cerebellum. 6) If patient has symptoms, then neuroimaging is recommended, anyone with persistent headache. Previously he was noted to be anemic.Iron studies: . 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 He is no longer anemic. PLAN: He had a colonoscopy last year by Dr. Leal. He was seen for anemia, January. He is currently maintained on iron. He will be following up with Dr. Leal for further evaluation including colonoscopy and video capsule study. He has to call for an appointment. Thank you, CC: Dr. Mann. Dr. Leal. (3) Acute ITP Status: Acute Assessment and plan: This is a pleasant 60-year-old gentleman with a previous history of Hodgkin's lymphoma 20 years ago. He had mantle field radiation. Lately he has had cardiac issues. He presented to the pond worker, on 09/19. Was incidentally noted to have a platelet count of 2,000. He was admitted. Overnight, he received platelets and a dose of Decadron. DIFFERENTIAL DIAGNOSIS considered was: 1.ITP: is most likely. 2. Infection related: He did turner machine operator to be COVID positive. That is most likely the underlying cause of the thrombocytopenia. 3. Drug-induced thrombocytopenia. 4. Myelo infiltrative disorder: Patient has history of Hodgkin's lymphoma. 5. DIC: Is in the differential. 6. TTP/HUS: not likely. He does not have the PENTAD. He was given a unit of platelets, on 09/20. He received a dose of Decadron 10 mg IV. Platelets came up to 21. He was then started on Decadron 40 mg p.o. daily for 5 days. A bone marrow exam was done on 09/21, under platelet cover. It revealed megakaryocytic hyperplasia without features of dysplasia, suggesting peripheral destruction as a cause of thrombocytopenia. Flow cytometry was negative for a lymphoproliferative disorder. Cytogenetics revealed normal male karyotype. He was given prednisone, as an outpatient. He has been started on rituximab as more definitive therapy for ITP. Meanwhile he was started on oral Decadron 40 mg daily for 5 days. Serial platelet counts: 09/21: 21, 09/22: 48, 09/23: 74. 09/27: 22. He was then started on prednisone 60 mg daily. 10/07: 43. Database: 10/14: CBC: WBC 15.9, HGB 14, HCT 41.9, PLT 228. CMP: Lytes WNL, CO2 32, glucose 131, BUN 26, BED BUG EXTERMINATOR 1.0. LFTs: 0.8//. Jose Alfredo 9.3, Alb 4. He was been started on rituximab. He received his 1st dose on 10/08. He tolerated it very well. He completed his 4th dose, on 10/29. Labs from 10/28: CBC: WBC 18, HGB 14.8, HCT 45.4, PLT 145. CMP: Lytes WNL, glu 139, BUN 24, BED BUG EXTERMINATOR 0.84. Jose Alfredo 9 7, alb 4.1. LFTs: 0.5/52/23/25. His platelet count from 10/21: 21. He was on a prednisone taper down to 50 mg. His dose was increased back up to 60 mg. Platelet count 10/28: 145. Labs from 11/04: WBC 18.7, HGB 15.2, HCT 46, PLT 252. CMP: Glucose 111, BUN 28, BED BUG EXTERMINATOR 0.83. Jose Alfredo 8.9, alb 3.8. LFTs: 0.5/53/24/23. His platelet count is back up to normal/ This is encouraging. Hopefully the rituximab will take over from here. Sometimes there could be a delayed response to it. PLAN: He will start a slow taper of prednisone. He will go down to 55 mg. Will have his labs done on 11/10, and decide about further tapering the prednisone, as long as the platelets stayed normal. Hopefully he will have a lasting remission. Thank you, Cc: Roca. Leal. - Time Spent With Patient Time Spent with Patient (in minutes): 25
[2021-11-05 15:52] VITALS: BP 112/73; PULSE 96; RESP 14; TEMP 36.8; O2SAT 96; BMI 23.1
--- NOTE | 2021-11-05 16:25 | MHC.HEMONCMA ---
Pt was in for follow up. Clinical summary reviewed and updated, VSS. Pt to return in 1 month. Pt is to get lab work done weekly.
--- NOTE | 2021-11-10 16:30 | MHC.HEMONC ---
Reported platelets of [address] Merchant. Instructed patient to decrease Prednisone to 50mg for 1 week and recheck labs on 11/17. Patient notified and verbalizes understanding.
--- NOTE | 2021-11-17 16:54 | MHC.HEMONC ---
Platelets 258- Dr. Merchant aware- decrease Prednisone to 45mg daily.
--- NOTE | 2021-11-18 12:59 | MHC.HEMONC ---
Pt called unit stating he feels poorly, feels dizzy, perspiring, nauseated, belching, passing black tarry stools. Dr Merchant notified. Plan for pt to come in for IV hydration. Appointment scheduled.
--- NOTE | 2021-11-18 15:26 | MHC.HEMONC ---
Pt arrived at hospital with . Prior to entering hospital pt vomited moderate amount brown red secretions. C/O abdominal pain, fatigue, dizziness, nausea. Pt to ED via w/c
[2021-11-29 16:10] VITALS: BP 89/50; PULSE 100; RESP 14; TEMP 37.4; O2SAT 90; BMI 22.1
[2021-11-29 16:33] LABS: MANUAL DIFF FLAG NO
--- NOTE | 2021-11-29 16:37 | MHC.HEMONCMA ---
Pt was in for follow up. Clinical summary reviewed and updated. Labs were drawn. Pt to return in a few weeks.
[2021-11-29 16:51] LABS: Alanine Aminotransferase 19 U/L (0-40); Albumin Level 3.2 g/dL (3.5-5.0); Alkaline Phosphatase 48 U/L (39-117); Anion Gap 12 (12-20); Aspartate Amino Transferase 23 U/L (5-37); Basophils Absolute Auto 0.1 X10*3/uL (0.0-0.2); Basophils Percent Auto 0.7 % (0-2); Bilirubin Total 0.6 mg/dL (0.0-1.0); Blood Urea Nitrogen 14 mg/dL (9-16); Carbon Dioxide 31 mmol/L (22-29); Chloride 97 mmol/L (96-108); Creatinine Clr Calc Pharmacy 97.7; Eosinophils Absolute Auto 0.2 X10*3/uL (0.0-0.4); Eosinophils Percent Auto 1.5 % (0-4); Estimated Glomerular Filt Rate > 60; Glucose Random 120 mg/dL (60-115); Hematocrit 25.6 % (42.0-52.0); Hemoglobin 8.1 g/dl (14.0-18.0); Imm Gran Abs Auto 0.12 X10*3/uL (0.00-0.03); Imm Gran Pct Auto 0.9 % (0.0-0.4); Lymphocytes Percent Auto 7.8 % (20-40); Mean Corpuscular HGB Conc 31.6 g/dl (31.0-36.0); Mean Corpuscular Hemoglobin 29.7 pg (27.0-33.0); Mean Corpuscular Volume 93.8 fL (80.0-98.0); Mean Platelet Volume 10.5 fL (9.4-12.4); Monocytes Absolute Auto 0.9 X10*3/uL (0.1-1.2); Monocytes Percent Auto 7.2 % (2-11); Neutrophils Absolute Auto 10.4 x10*3/uL (2.0-8.3); Neutrophils Percent Auto 81.9 % (45-73); Platelet Count 536 X10*3/uL (160-400); Potassium 3.5 mmol/L (3.3-5.1); Red Blood Count 2.73 X10*6/uL (4.60-5.80); Red Cell Distribution Width 16.1 % (11.0-16.0); Sodium 136 mmol/L (135-145); Total Protein 5.6 g/dL (6.5-8.0); White Blood Count 12.7 X10*3/uL (4.8-10.8)
[2021-11-29 16:56] LABS: NRBC Pct Auto 13.3 /100WBC (0.0-0.2)
--- NOTE | 2021-11-29 18:00 | P.PNHO_ITS ---
Medical Summary - Medical Summary Date of Service: 11/29/21 Chief complaint: follow-up for: 1. ITP. 2. Hodgkin lymphoma. Medical Summary: DIAGNOSES: 1. Hodgkin's Lymphoma, diagnosed November 1989. Left supraclavicular adenopathy. Chest x-ray revealed a mediastinal mass. Staging laparotomy negative. 2. [place]'s syndrome, noted to have more than 100 polyps on colonoscopy and genetic testing being positive. 3. Recent diagnosis of ITP. THERAPY: Received radiation therapy to inverted-Y field, stayed in remission for 5 years. He then developed recurrence in the right inguinal area. He was treated with 6 cycles of ABVD completed April 1996. He had radiation induced hypothyroidism. 2. He was started on Prednisone, currently 60 mg. Completed rituximab week 4, on 10/29. Interval History Interval history: This is a pleasant 60 year-old gentleman, here for a follow-up visit. He was in house between 11/18 till 11/26. Discharge summary: Medical history of anemia, severe aortic stenosis, history of bioprosthetic heart valve, s/p TAVR,? LBBB, CHF status post AICD, hypothyroidism, history of complete heart block, history of Hodgkin's lymphoma, [place]'s syndrome, history ITP, multinodular thyroid, history of remote pulmonary embolism-presently not anticoagulated.? He was admitted through ICU on 11/18 with upper GI bleeding, acute blood loss anemia complicated by shock. Has required 2 units of RBCs, EGD 11/19 showed 12 mm gastric ulcer. Sepsis d/t pneumonia, patient diagnosed to have sepsis due to fever and leukocytosis, lactic acid was negative patient treated with IV vancomycin and Zo syn, blood cultures x2 are negative times 48 hours patient evaluated by Dr. Canada from Infectious Disease she felt fever likely due to GI bleed and possibly aspiration infiltrate, procalcitonin level was low, therefore antibiotic discontinued after 4 days of therapy, patient noted to have no rec urrent episodes of fever, and remained hemodynamically stable with normal lung examination. Upper GI bleeding, with initial hemorrhagic shock managed in the ICU, acute blood loss anemia--s/p 2 units, Hematocrit? improved post transfusion and remains stable, patient treated with Prilosec 40 mg b.i.d. upper endoscopy showed 12 mm gastric ulcer with visible vessel and no active bleeding, treated with epi and cauterized with gold probe, recommend no NSAIDs, aspirin held for 2 weeks and prednisone has been discontinued. Hypotension--normally runs a low systolic 90s to 100s, asymptomatic Recommend to resume all home medications, dose of Lasix reduced to 40 mg b.i.d.. Chronic HFpEF Status post AICD. history of non ischemc cardiomyopathy:? Patient noted to have no overt sign of heart failure has been continued on Lasix, and elprenone recommend close outpatient follow-up with Cardiology, will hold aspirin for 2 weeks. History of hypothyroidism Continue home levothyroxine ITP--Platelet?initially dropped from 210 on admission to? to 113. On 11/22, repeat platelet improved to 202. Prednisone has been discontinued due to gastric ulcer. He just came home on Monday. He does not feel too well. He is extremely fatigued. His tells me that he has not been well. He gets short of breath with minimal exertion. He can go down the steps but when he tries to climb up he is on all 4. She is helping him with ADLs. He denies chest pain. He denies any easy bruising nor systemic bleeding. His appetite is actually been really good. He has gained weight. Denies any fever chills no night sweats. No headache no dizziness. Denies abdominal pain nausea vomiting heartburn indigestion. He has constipation. He was advised to take MiraLax. He is in good spirits. Rest of the review of systems is unremarkable. Interim history from Last month: His platelet count had come up to 228. I started tapering his steroids. He was advised to go down to 55 mg. On 10/21 platelets dipped down to 21. Prednisone dose was increased back up to 60 mg. Platelet count yesterday was 145. He tells me his energy level is good. He worked till 23:30 last night. He tolerated the Rituxan very well. Interim history: He was admitted to the hospital on 09/20, with severe thrombocytopenia. I saw him on 09/21: He presented, with a chief complaint of low platelets. He tells me that he had felt weak and tired for a couple days. Over the weekend on Monday he had some trouble breathing. He had a cough. He took extra Lasix on Monday and Monday 60 mg in the morning and 40 in the evening both days. Scott night, he felt a little bit better however Monday during the day he felt more tired and fatigued. He noted petechiae on his legs. He saw his tanning drum operator, Dr. Wyman who ordered labs checked his pacemaker function. He was incidentally noted to have very low platelets: 1999. He was noted to have a petechial rash; he was sent to the ER for further evaluation. Patient denies any headaches blurry visions, chest pain or palpitations, denies any signs of infection or recent viral infections; Denies any numbness tingling or focal weakness. Reports mild swelling of his ankles. CT head showed no acute findings. He was started on a course of Decadron, 40 mg daily for 5 days. Bone marrow exam was done on 09/21: It revealed megakaryocytic hyperplasia without features of dysplasia, suggesting peripheral destruction as a cause of thrombocytopenia. Flow cytometry was negative for a lymphoproliferative disorder. Cytogenetics revealed normal male karyotype. He was given prednisone, as an outpatient. He has been started on rituximab as more definitive therapy for ITP. He received the 1st dose on 10/08. He tells me during the infusion he had a slight fever. Infusion was stopped he was given premeds and then continued, doubt any further symptoms. He did have a touch of nausea that day. The Zofran to care of it. He denies any further GI complaints. Previous history: He had a CTA on 01/14/20 which revealed: 1. No acute pulmonary embolism. Prior segmental filling defects resolved since exam 10/25/2020. 2. Moderate right effusion slightly decreased since prior exam 10/25/2020. 3. Subsegmental atelectasis anterior medial right upper lobe and right posterior basal region. No segmental or lobar airspace consolidation. No pneumothorax. VTE: negative He tells me back in January, he was in house with a hip fracture. Discharge summary: He presented to the emergency department after sustaining a fall while getting out of his car. He was in the parking lot of [facility] when he turned and took a step and fell. He landed on the left side. He was unable to get up due to pain. He called security who assisted him to the emergency department where he was evaluated. X-rays of the left hip demonstrated impacted subcapital fracture of the femur. Orthopedics was consulted and the plan was to admit him to the orthopedic service and plan for surgical intervention. The patient underwent a successful left hip percutaneous pinning, was transferred to PACU and then to the floor to recover. During their stay, their vitals were stable. POD1 he was started on Lovenox for DVT ppx, they also received physical therapy and occupational therapy services twice a day. Postop day 3 his hematocrit dropped to 28.4 therefore he was transfused with 1 unit of packed red blood cells followed by 20 mg of IV Lasix. Prior to discharge, dressing remained clean dry and intact the plan is to be transferred to a short- term rehab. He was seen by GI Dr. Leal, during that admission: stools, where he required blood transfusion. He underwent upper endoscopy and colonoscopy to the terminal ileum. The colonoscopy showed multiple polyps c onsistent with his previous history of [place] syndrome with hamartomatous colon polyps. He also had large internal hemorrhoids and a lipoma. An upper endoscopy had been done the day prior to the colonoscopy, which showed gastric polyps, but no upper GI bleeding source was identified. He was disc harged after his hematocrit was stable and outpatient followup capsule endoscopy was to be arranged. At the time, he presented with anemia and Hemoccult-positive stools. He had been on Eliquis for pulmonary embolism and also been on aspirin. It was felt safe to restart these medications at the time of his discharge. He was in rehab for 2 weeks and then he went home. 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 First week was tough however now he is getting the hand of it. His legs are getting stronger. He denies any adenopathy. Energy level is back to baseline. No abdominal pain nausea vomiting heartburn indigestion. His bowels are moving without any gross blood in it. He enjoys a good appetite. He has lost weight intentionally. He is eating healthy. He has cerebellar degeneration. He has difficulty with balance. He follows closely with the neurologist. He is in good spirits. Rest of the review of systems is unremarkable. He tells me he lost [address] Suero who attributed the weight loss to abnormal thyroid function. His Synthroid was 175 mcg was lowered down to 125 mcg. He is starting to gain weight. Past medical history: He tells me he has had cardiac issues. He was admitted to the hospital in January 2019, for chest pain and shortness of breath. A stent was considered the block age was less than 30%. The plan is to optimize medical therapy, and for close observation. He was on Lasix 20 mg a day however he developed some lower extremity edema cough and shortness of breath. Lasix has been increased to 20 mg b.i.d. since then his symptoms have resolved. He also mentions that the battery on his pacemaker is due to be changed. He is actually seeing the tanning drum operator here on Monday for his 1st appointment. He has been under care of vascular. They are contemplating starting Eliquis in future. He has been going back for annual colonoscopies under the care of Dr. Gillis. Next one is scheduled for September 2020. Review of Systems - Constitutional Reports no additional constitutional complaints, Reports fatigue, Reports lack of energy, Reports malaise, Reports weakness - Eyes Reports no additional eye complaints - ENT Reports no additional ear, nose, mouth, and throat complaints - Cardiovascular Reports no additional cardiovascular complaints, Reports shortness of breath, Reports shortness of breath with activity - Respiratory Reports no additional respiratory complaints, Denies cough - Gastrointestinal Reports no additional gastrointestinal complaints, Reports constipation - Genitourinary Genitourinary: Reports no additional male genitourinary complaints - Musculoskeletal Reports no additional musculoskeletal complaints - Integumentary/Breasts Skin/Breast: Reports no additional skin complaints - Neurologic Reports no additional neurologic complaints, Reports abnormal gait, Denies headache(s), Denies memory loss - Psychiatric Reports no additional psychiatric complaints - Endocrine Reports no additional endocrine complaints - Hematologic/Lymphatic Reports no additional hematologic/lymphatic complaints - Allergic/Immunologic Reports no additional allergic/immunologic complaints [facility] Medical History: Medical History (Last Reviewed 11/29/21 @ 16:13 by Christine Kwon CMA) Anemia Aortic stenosis, severe Bilateral pulmonary embolism Cardiac resynchronization therapy defibrillator (HEAD FILTER TANK TENDER HELPER-D) in place Complete heart block Congestive heart failure COVID-19 COVID-19 vaccine series completed [place] syndrome Fever of unknown origin HFrEF (heart failure with reduced ejection fraction) Hodgkins lymphoma Hypocalcemia Hypotension (arterial) Hypothyroidism LBBB (left bundle branch block) Leukocytosis Low TSH level Lung infiltrate Multinodular thyroid Multinodular thyroid NICM (nonischemic cardiomyopathy) Osteoporosis Pacemaker Pulmonary embolism Recurrent pleural effusion on right Rib fracture Rib pain Right hip pain Shortness of breath Sinus tachycardia Thrombocytopenia Vitamin D deficiency Functional capacity: independent ambulation Family History: Family History (Last Reviewed 11/29/21 @ 16:13 by Christine Kwon CMA) Father Healthy adult male Mother Bladder cancer Surgical History: Surgical History (Last Updated 11/29/21 @ 16:13 by Christine Kwon CMA) H/O splenectomy History of appendectomy History of cardiac pacemaker History of endoscopy History of esophagogastroduodenoscopy (EGD) History of hip surgery Hx of colonoscopy S/P TAVR (transcatheter aortic valve replacement) Social History: Social History (Last Reviewed 11/29/21 @ 16:14 by Christine Kwon CMA) Living Situation History: Household Members: Spouse Household Members: Children Housing: House Are you a primary caregiver services home to a significant other at home: No Do you presently have visiting nurse or other home services: No Alcohol History Details: 1. How often do you have a drink containing alcohol?: b. Monthly or less 2. How many drinks containing alcohol do you have on a typical day when you are drinking?: a. 1 or 2 Tobacco History: Patient Tobacco Use Status: Never used Tobacco e-Cigarette/Vaping Use: Never Used Second Hand Smoke Exposure: No Substance Use History: Use of substances other than those prescribed or required for medical reasons : No Domestic Abuse History: Have you been hit, kicked, punched, or otherwise hurt by someone within the past year? 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 Current occupational status: employed Current occupational exposures/hazards: No Oncology Screenings - ECOG Performance Status ECOG Performance Status: 2 Home Medications and Allergies Home Medications Medication Instructions Recorded Confirmed Type eplerenone 25 mg tablet (Inspra) 25 mg PO DAILY 11/05/21 11/29/21 History levothyroxine 125 mcg tablet 300 mcg PO CRUZ 11/18/21 11/29/21 History (Synthroid) levothyroxine 150 mcg tablet 150 mcg PO MOTUWETHFRSA 11/18/21 11/29/21 History Allergies Allergy/AdvReac Type Severity Reaction Status Date / Time No Known Allergies Allergy Verified 11/29/21 16:14 [No Known Allergies*] Exam Vital signs: Vital Signs Temp 99.4 F 11/29/21 16:10 Pulse 100 11/29/21 16:10 Resp 14 11/29/21 16:10 BP 89/50 L 11/29/21 16:10 Pulse Ox 90 L 11/29/21 16:10 Intake & Output 11/28/21 11/29/21 11/29/21 18:59 06:59 18:59 Other: Weight 72.121 kg [place] Weight in Grams 13572.187 Weight 72.121 kg BMI result Body Mass Index 22.1 - Constitutional Present: no acute distress - Routine HEENT Exam Head: Present: normal inspection Eye: Present: normal appearance ENT: Present: mucous membranes moist - Routine Neck Exam Present: full ROM - Routine Respiratory Exam Present: decreased breath sounds, CTAB, rales - Routine Cardiovascular Exam Cardiovascular: Present: RRR, S1 - Routine Abdominal Exam Present: soft, nontender - Routine Extremities Exam Present: nontender - Routine Back/Spine/Pelvis Exam Back/Spine: Present: full ROM - Routine Skin Exam Present: intact - Routine Neurological Exam Present: alert, oriented X3 - Detailed Neurological Exam: Coma Scale Eye Opening: Spontaneous (4) - Routine Psychiatric Exam Present: normal affect. Absent: agitated Data - Labs CBC & Chem 7: 11/29/21 16:31 11/29/21 16:31 - Imaging Radiologist's impression: ITS Impressions Chest X-Ray 05/04/20 15:46 IMPRESSION: 1. Small right effusion. Vascularity normal. Heart size normal. 2. Old mediastinal lymph node calcification, similar to prior report 01/12/2011. 3. Large oval smooth calcification right anterior abdomen approximately 3 x 5 cm. Assessment and Plan Patient Active problem list reviewed?: Yes (1) Hodgkins lymphoma Status: Inactive Assessment and plan: 60 year-old gentleman with history of Hodgkin's Lymphoma diagnosed in 1989. He had disease recurrence in 1994, for which he had systemic chemotherapy until April 1996. He is clinically in remission and doing fairly well, for a long time. He was recently admitted with ITP. He is back at work. He has a Normal exam and blood work. LDH: 226. He had a CTA of the chest done which was non revealing. PLAN: He had abnormal thyroid function. Ultrasound of the thyroid revealed a nodule. He underwent an FNA, on 09/16: [place] system calcification: Atypia of undetermined significance, category 3. AFIRMA genomic sequencing: No results. Insufficient healed I RNA. He will probably need repeat testing. That will be set up by Dr. Suero. He will return in 6 months for a follow-up. Thank you, CC: Denis. Dr. Rios. Dr. Javier. (2) [place] syndrome Status: Acute Assessment and plan: 2. [place]'s Syndrome. He has seen a genetic counselor, Given the high risk for malignancy, cancer surveillance is the major focus of management. He is undergoing annual colonoscopies by Dr. Gillis, at [facility]. In terms of surveillance, a recommendation from NCCN is: 1) Annual comprehensive physical examination. 2) Thyroid ultrasound annually. 3) Colonoscopy every 5 years, more frequent if symptomatic. However in view of the [place]'s syndrome he should have annual colonoscopy. 4) Renal ultrasound to be repeated every 1 to 2 years. 5) Annual skin exam, also need to have a low index of suspicion for dysplastic gangliocytoma of the cerebellum. 6) If patient has symptoms, then neuroimaging is recommended, anyone with persistent headache. Previously he was noted to be anemic.Iron studies: /. 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 He is no longer anemic. PLAN: He had a colonoscopy last year by Dr. Leal. He was seen for anemia, January. He is currently maintained on iron. He will be following up with Dr. Leal for further evaluation including colonoscopy and video capsule study. He has to call for an appointment. Thank you, CC: Dr. Mann. Dr. eLal. (3) Acute ITP Status: Acute Assessment and plan: This is a pleasant 60-year-old gentleman with a previous history of Hodgkin's lymphoma 20 years ago. He had mantle field radiation. Lately he has had cardiac issues. He presented to the tanning drum operator, on 09/19. Was incidentally noted to have a platelet count of 2,000. He was admitted. Overnight, he received platelets and a dose of Decadron. DIFFERENTIAL DIAGNOSIS considered was: 1.ITP: is most likely. 2. Infection related: He did bottom turner to be COVID positive. That is most likely the underlying cause of the thrombocytopenia. 3. Drug-induced thrombocytopenia. 4. Myelo infiltrative disorder: Patient has history of Hodgkin's lymphoma. 5. DIC: Is in the differential. 6. TTP/HUS: not likely. He does not have the PENTAD. He was given a unit of platelets, on 09/20. He received a dose of Decadron 10 mg IV. Platelets came up to 21. He was then started on Decadron 40 mg p.o. daily for 5 days. A bone marrow exam was done on 09/21, under platelet cover. It revealed megakaryocytic hyperplasia without features of dysplasia, suggesting peripheral destruction as a cause of thrombocytopenia. Flow cytometry was negative for a lymphoproliferative disorder. Cytogenetics revealed normal male karyotype. He was given prednisone, as an outpatient. He has been started on rituximab as more definitive therapy for ITP. Meanwhile he was started on oral Decadron 40 mg daily for 5 days. Serial platelet counts: 09/21: 21, 09/22: 48, 09/23: 74. 09/27: 22. He was then started on prednisone 60 mg daily. 10/07: 43. Database: 10/14: CBC: WBC 15.9, HGB 14, HCT 41.9, PLT 228. CMP: Lytes WNL, CO2 32, glucose 131, BUN 26, HEAD FILTER TANK TENDER HELPER 1.0. LFTs: 0.8/66//21. Jose Alfredo 9.3, Alb 4. He was been started on rituximab. He received his 1st dose on 10/08. He tolerated it very well. He completed his 4th dose, on 10/29. Labs from 10/28: CBC: WBC 18, HGB 14.8, HCT 45.4, PLT 145. CMP: Lytes WNL, glu 139, BUN 24, HEAD FILTER TANK TENDER HELPER 0.84. Jose Alfredo 9 7, alb 4.1. LFTs: 0.5/52/23/25. His platelet count from 10/21: 21. He was on a prednisone taper down to 50 mg. His dose was increased back up to 60 mg. Platelet count 10/28: 145. Labs from 11/04: WBC 18.7, HGB 15.2, HCT 46, PLT 252. CMP: Glucose 111, BUN 28, HEAD FILTER TANK TENDER HELPER 0.83. Jose Alfredo 8.9, alb 3.8. LFTs: 0.5/53/24/23. He was admitted to the hospital back on 11/18. He had melena with a bout of hematemesis. His hemoglobin had dropped. EGD revealed: Gastric ulcer. He was on the prednisone taper. It was discontinued. Fortunately, his platelet count normalized. It appears that the rituximab is working. He appeared rather short of breath especially on exertion. O2 sat was 90. Chest x-ray was done: Interval slight worsening in the left upper lobe and parahilar interstitial changes likely pneumonitis or unilateral pulmonary venous congestion. Bibasilar haziness and right lower lobe opacity has slightly increased. Suspect bilateral small pleural effusions. I shared the results with Dr. Wyman. He will be seeing him later this week. He has increased his diuretics. His hemoglobin is borderline low 8.1. PLAN: Discussed with Dr. Wyman. He will see him and then decide if he needs IV diuretics or transfusion. His platelets have normalized. Hopefully he will have a lasting remission. Meanwhile will arrange for visiting nurses at home to help take care of him. He does not wish to go to rehab at this point. He will return in a month for a follow-up. Thank you, Cc: Roca. Leal. - Time Spent With Patient Time Spent with Patient (in minutes): 30
--- NOTE | 2021-11-30 09:27 | MHC.HEMONCSW ---
Referral phoned and faxed to isis at [facility] for half-way and physio.
[2021-12-01 09:36] VITALS: BP 113/59; PULSE 109; RESP 20; TEMP 36.9; O2SAT 94; BMI 23.2
[2021-12-01] MEDS: Furosemide 40 MG/4 ML VIAL IVPUSH (10:18)
[2021-12-01 11:04] VITALS: TEMP 37.9
[2021-12-01] MEDS: Acetaminophen 325 MG TABLET 650 MG PO (11:19)
[2021-12-01 11:34] VITALS: BP 113/74; PULSE 104; RESP 22; TEMP 37.9
--- NOTE | 2021-12-01 11:49 | MHC.HEMONC ---
Addendum entered by Janet Arcos RN 12/01/21 12:24: unit of blood taken est 50ml received, blood bank aware. pt transported to er via stretcher and 2l O2. report given to charge nurse Original Note: pt arrived accompanied by using w/c to receive 1 unit rbc. pt was sob and c/o dizziness. report pt fell at home before coming in. o2 was 70% on RA on arrival crackles noted to LLL. 2l o2 via NC, now sat 92%. 40mg iv lasix given. pt also developed fever 100.2 before rbc unit was given, 650mg po tylenol given. blood started Dr Castaneda exam pt, blood stopped after first 15min and ordered pt to go to ER.
[2021-12-01 11:52] VITALS: BP 93/51; PULSE 104; RESP 22; TEMP 37.4
--- NOTE | 2021-12-01 14:47 | MHC.HEMONCSW ---
Molst completed, patient wants resusitation. Education and support provided.
--- NOTE | 2021-12-10 17:23 | MHC.HEMONC ---
Pt does not have Lovenox per [facility] RN (she left voicemail). I called several pharmacies. He cannot fill at local pharmacy due to insurance and [facility] is filling but he won't have it until end of next week. I have reached out to Dr Merchant via Secure Text to see if she could prescribe alternate rx or arrange for ER to give over the weekend.
[2021-12-11 15:00] VITALS: BP 92/53; PULSE 94; RESP 20; TEMP 36.4; O2SAT 95
--- NOTE | 2021-12-11 15:12 | MHC.HEMONC ---
pt here for Lovenox as outpatient. Arrive via w/c 97.6-94-20 92/53 right arm. Will be in tomorrow for injection as well as he is awaiting mail dilvery of rx.
[2021-12-11] MEDS: Enoxaparin Sodium 100 MG/ML SYRINGE SUBCUT (15:34)
[2021-12-12] MEDS: Enoxaparin Sodium 100 MG/ML SYRINGE SUBCUT (15:06)
[2021-12-12 15:11] VITALS: BP 87/50; PULSE 97; RESP 21; TEMP 37.1; O2SAT 93
--- NOTE | 2021-12-12 15:12 | MHC.HEMONC ---
Pt here for lovenox injection. Vital signs as noted. Lovenox SC given in left arm-tolerated well-discharge home
[2021-12-13 16:44] VITALS: BP 92/54; PULSE 94; RESP 16; TEMP 36.5; O2SAT 96
[2021-12-13] MEDS: Enoxaparin Sodium 100 MG/ML SYRINGE SUBCUT (17:09)
--- NOTE | 2021-12-13 17:13 | MHC.HEMONC ---
Lovenox 100mg administered to right lower quadrant and well tolerated.Patient to return tomorrow for exam and Lovenox injection.
[2021-12-14 15:41] VITALS: BP 99/54; PULSE 91; RESP 19; TEMP 36.4; O2SAT 98
[2021-12-14 15:43] VITALS: BMI 21.6
[2021-12-14] MEDS: Enoxaparin Sodium 100 MG/ML SYRINGE SUBCUT (15:44)
--- NOTE | 2021-12-14 15:52 | MHC.HEMONC ---
Pt here for Lovenox injection and follow up with Dr Merchant. Vital signs as noted. Pt states he feels a bit better than yesterday. Lovenox 100mg SC given in abdomen as ordered-tolerated well. Dr Merchant into see pt. Discharge packet given Pt to return tomorrow for next lovenox injection. Labs drawn by literacy coach-specimen to lab
[2021-12-14 16:36] LABS: Basophils Absolute Auto 0.1 X10*3/uL (0.0-0.2); Basophils Percent Auto 1.2 % (0-2); Eosinophils Absolute Auto 0.1 X10*3/uL (0.0-0.4); Eosinophils Percent Auto 0.9 % (0-4); Hematocrit 35.7 % (42.0-52.0); Hemoglobin 10.9 g/dl (14.0-18.0); Imm Gran Abs Auto 0.09 X10*3/uL (0.00-0.03); Imm Gran Pct Auto 0.8 % (0.0-0.4); Lymphocytes Absolute Auto 2.1 X10*3/uL (1.2-4.9); Lymphocytes Percent Auto 18.1 % (20-40); MANUAL DIFF FLAG SCAN; Mean Corpuscular HGB Conc 30.5 g/dl (31.0-36.0); Mean Corpuscular Hemoglobin 27.5 pg (27.0-33.0); Mean Corpuscular Volume 90.2 fL (80.0-98.0); Monocytes Absolute Auto 1.6 X10*3/uL (0.1-1.2); Monocytes Percent Auto 13.8 % (2-11); NRBC Pct Auto 0.2 /100WBC (0.0-0.2); Neutrophils Absolute Auto 7.7 x10*3/uL (2.0-8.3); Neutrophils Percent Auto 65.2 % (45-73); Platelet Count 576 X10*3/uL (160-400); Red Blood Count 3.96 X10*6/uL (4.60-5.80); Red Cell Distribution Width 16.6 % (11.0-16.0); SCAN SMEAR FLAG 1; White Blood Count 11.8 X10*3/uL (4.8-10.8)
[2021-12-14 16:45] LABS: Alanine Aminotransferase 8 U/L (0-40); Albumin Level 3.8 g/dL (3.5-5.0); Alkaline Phosphatase 72 U/L (39-117); Anion Gap 15 (12-20); Aspartate Amino Transferase 21 U/L (5-37); Bilirubin Total 0.6 mg/dL (0.0-1.0); Blood Urea Nitrogen 12 mg/dL (9-16); Carbon Dioxide 34 mmol/L (22-29); Chloride 96 mmol/L (96-108); Creatinine Clr Calc Pharmacy 85.1; Estimated Glomerular Filt Rate > 60; Glucose Random 100 mg/dL (60-115); Potassium 4.1 mmol/L (3.3-5.1); Sodium 141 mmol/L (135-145); Total Protein 6.4 g/dL (6.5-8.0)
[2021-12-14 17:04] LABS: SLIDE REVIEW VERIFIED
[2021-12-14 17:07] LABS: Thyroid Stimulating Hormone 3.62 uIU/mL (0.32-4.0)
--- NOTE | 2021-12-15 10:09 | P.PNHO_ITS ---
Medical Summary - Medical Summary Date of Service: 12/14/21 Chief complaint: F/U for: 1. LUE DVT. 2. ITP. Medical Summary: DIAGNOSES: 1. Hodgkin's Lymphoma, diagnosed November 1989. Left supraclavicular adenopathy. Chest x-ray revealed a mediastinal mass. Staging laparotomy negative. 2. [place]'s syndrome, noted to have more than 100 polyps on colonoscopy and genetic testing being positive. 3. Recent diagnosis of ITP. THERAPY: Received radiation therapy to inverted-Y field, stayed in remission for 5 years. He then developed recurrence in the right inguinal area. He was treated with 6 cycles of ABVD completed April 1996. He had radiation induced hypothyroidism. 2. He was started on Prednisone, currently 60 mg. Off of it. Completed rituximab week 4, on 10/29. 3. On Lovenox for recent left upper extremity DVT. Interval History Interval history: This is a pleasant 61 year-old gentleman, here for a follow-up visit. He is here to recieve Lovenox, till his scripts get filled. He is feeling better, on a daily basis. His breathing has improved, so has his energy level. No CP. His left arm swelling has gotton a lot better. Denies fever nor chills. No easy bruising nor systemic bleeding. His appetite is actually been really good. He has gained weight. Denies any fever chills no night sweats. No headache no dizziness. Denies abdominal pain nausea vomiting heartburn indigestion. He has constipation. He was advised to take MiraLax. He is in good spirits. Rest of the review of systems is unremarkable. Presvious History: He was in house between 11/18 till 11/26. Discharge summary: Medical history of anemia, severe aortic stenosis, history of bioprosthetic heart valve, s/p TAVR,? LBBB, CHF status post AICD, hypothyroidism, history of complete heart block, history of Hodgkin's lymphoma, Val's syndrome, history ITP, multinodular thyroid, history of remote pulmonary embolism-presently not anticoagulated.? He was admitted through ICU on 11/18 with upper GI bleeding, acute blood loss anemia complicated by shock. Has required 2 units of RBCs, EGD 11/19 showed 12 mm gastric ulcer. Sepsis d/t pneumonia, patient diagnosed to have sepsis due to fever and leukocytosis, lactic acid was negative patient treated with IV vancomycin and Zosyn, blood cultures x2 are negative times 48 hours patient evaluated by Dr. Canada from Infectious Disease she felt fever likely due to GI bleed and possibly aspiration infiltrate, procalcitonin level was low, therefore antibiotic discontinued after 4 days of therapy, patient noted to have no recurrent episodes of fever, and remained hemodynamically stable with normal lung examination. Upper GI bleeding, with initial hemorrhagic shock managed in the ICU, acute blood loss anemia--s/p 2 units, Hematocrit? improved post transfusion and remains stable, patient treated with Prilosec 40 mg b.i.d. upper endoscopy showed 12 mm gastric ulcer with visible vessel and no active bleeding, treated with epi and cauterized with gold probe, recommend no NSAIDs, aspirin held for 2 weeks and prednisone has been discontinued. Hypotension--normally runs a low systolic 90s to 100s, asymptomatic Recommend to resume all home medications, dose of Lasix reduced to 40 mg b.i.d.. Chronic HFpEF Status post AICD. history of non ischemc cardiomyopathy:? Patient noted to have no overt sign of heart failure has been continued on Lasix, and elprenone recommend close outpatient follow-up with Cardiology, will hold aspirin for 2 weeks. History of hypothyroidism Continue home levothyroxine ITP--Platelet?initially dropped from 210 on admission to? to 113. On 11/22, repeat platelet improved to 202. Prednisone has been discontinued due to gastric ulcer. Interim history from October: His platelet count had come up to 228. I started tapering his steroids. He was advised to go down to 55 mg. On 10/21 platelets dipped down to 21. Prednisone dose was increased back up to 60 mg. Platelet count yesterday was 145. He tells me his energy level is good. He worked till 23:30 last night. He tolerated the Rituxan very well. Interim history: He was admitted to the hospital on 09/20, with severe thrombocytopenia. I saw him on 09/21: He presented, with a chief complaint of low platelets. He tells me that he had felt weak and tired for a couple days. Over the weekend on Monday he had some trouble breathing. He had a cough. He took extra Lasix on Monday and Monday 60 mg in the morning and 40 in the evening both days. Monday night, he felt a little bit better however Monday during the day he felt more tired and fatigued. He noted petechiae on his legs. He saw his graphic manager, Dr. Wyman who ordered labs checked his pacemaker function. He was incidentally noted to have very low platelets: 1999. He was noted to have a petechial rash; he was sent to the ER for further evaluation. Patient denies any headaches blurry visions, chest pain or palpitations, denies any signs of infection or recent viral infections; Denies any numbness tingling or focal weakness. Reports mild swelling of his ankles. CT head showed no acute findings. He was started on a course of Decadron, 40 mg daily for 5 days. Bone marrow exam was done on 09/21: It revealed megakaryocytic hyperplasia without features of dysplasia, suggesting peripheral destruction as a cause of thrombocytopenia. Flow cytometry was negative for a lymphoproliferative disorder. Cytogenetics revealed normal male karyotype. He was given prednisone, as an outpatient. He has been started on rituximab as more definitive therapy for ITP. He received the 1st dose on 10/08. He tells me during the infusion he had a slight fever. Infusion was stopped he was given premeds and then continued, doubt any further symptoms. He did have a touch of nausea that day. The Zofran to care of it. He denies any further GI complaints. Previous history: He had a CTA on 01/14/20 which revealed: 1. No acute pulmonary embolism. Prior segmental filling defects resolved since exam 10/25/2020. 2. Moderate right effusion slightly decreased since prior exam 10/25/2020. 3. Subsegmental atelectasis anterior medial right upper lobe and right posterior basal region. No segmental or lobar airspace consolidation. No pneumothorax. VTE: negative He tells me back in January, he was in house with a hip fracture. Discharge summary: He presented to the emergency department after sustaining a fall while getting out of his car. He was in the parking lot of [facility] when he turned and took a step and fell. He landed on the left side. He was unable to get up due to pain. He called security who assisted him to the emergency department where he was evaluated. X-rays of the left hip demonstrated impacted subcapital fracture of the femur. Orthopedics was consulted and the plan was to admit him to the orthopedic service and plan for surgical intervention. The patient underwent a successful left hip percutaneous pinning, was transferred to PACU and then to the floor to recover. During their stay, their vitals were stable. POD1 he was started on Lovenox for DVT ppx, they also received physical therapy and occupational therapy services twice a day. Postop day 3 his hematocrit dropped to 28.4 therefore he was transfused with 1 unit of packed red blood cells followed by 20 mg of IV Lasix. Prior to discharge, dressing remained clean dry and intact the plan is to be transferred to a short- term rehab. He was seen by GI Dr. Leal, during that admission: stools, where he required blood transfusion. He underwent upper endoscopy and colonoscopy to the terminal ileum. The colonoscopy showed multiple polyps consistent with his previous history of 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with hamartomatous colon polyps. He also had large internal hemorrhoids and a lipoma. An upper endoscopy had been done the day prior to the colonoscopy, which showed gastric polyps, but no upper GI bleeding source was identified. He was discharged after his hematocrit was stable and outpatient followup capsule endoscopy was to be arranged. At the time, he presented with anemia and Hemoccult-positive stools. He had been on Eliquis for pulmonary embolism and also been on aspirin. It was felt safe to restart these medications at the time of his discharge. He was in rehab for 2 weeks and then he went home. 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 First week was tough however now he is getting the hand of it. His legs are getting stronger. He denies any adenopathy. Energy level is back to baseline. No abdominal pain nausea vomiting heartburn indigestion. His bowels are moving without any gross blood in it. He enjoys a good appetite. He has lost weight intentionally. He is eating healthy. He has cerebellar degeneration. He has difficulty with balance. He follows closely with the neurologist. He is in good spirits. Rest of the review of systems is unremarkable. He tells me he lost [address] Suero who attributed the weight loss to abnormal thyroid function. His Synthroid was 175 mcg was lowered down to 125 mcg. He is starting to gain weight. Past medical history: He tells me he has had cardiac issues. He was admitted to the hospital in January 2019, for chest pain and shortness of breath. A stent was considered the block age was less than 30%. The plan is to optimize medical therapy, and for close observation. He was on Lasix 20 mg a day however he developed some lower extremity edema cough and shortness of breath. Lasix has been increased to 20 mg b.i.d. since then his symptoms have resolved. He also mentions that the battery on his pacemaker is due to be changed. He is actually seeing the graphic manager here on Monday for his 1st appointment. He has been under care of vascular. They are contemplating starting Eliquis in future. He has been going back for annual colonoscopies under the care of Dr. Gillis. Next one is scheduled for September 2020. Review of Systems - Constitutional Reports no additional constitutional complaints, Reports lack of energy, Denies poor appetite - Eyes Reports no additional eye complaints - ENT Reports no additional ear, nose, mouth, and throat complaints - Cardiovascular Reports no additional cardiovascular complaints - Respiratory Reports no additional respiratory complaints - Gastrointestinal Reports no additional gastrointestinal complaints - Genitourinary Genitourinary: Reports no additional male genitourinary complaints - Musculoskeletal Reports no additional musculoskeletal complaints - Integumentary/Breasts Skin/Breast: Reports no additional skin complaints - Neurologic Reports no additional neurologic complaints, Reports abnormal gait, Denies headache(s), Denies memory loss, Reports weakness - Psychiatric Reports no additional psychiatric complaints - Endocrine Reports no additional endocrine complaints - Hematologic/Lymphatic Reports no additional hematologic/lymphatic complaints - Allergic/Immunologic Reports no additional allergic/immunologic complaints [facility] Medical History: Medical History (Last Updated 12/14/21 @ 13:54 by Yesica Kay MD) Acute deep vein thrombosis of upper extremity Acute ITP Anemia Anemia Aortic stenosis, severe Bilateral pulmonary embolism Cardiac resynchronization therapy defibrillator (CENTRALIZED TRAFFIC CONTROL OPERATOR-D) in place Complete heart block Congestive heart failure COVID-19 COVID-19 vaccine series completed [place] syndrome [place] syndrome Fever Fever of unknown origin HFrEF (heart failure with reduced ejection fraction) Hodgkins lymphoma Hypocalcemia Hypotension (arterial) Hypothyroidism LBBB (left bundle branch block) Leukocytosis Low TSH level Lung infiltrate Multifocal pneumonia Multinodular thyroid Multinodular thyroid NICM (nonischemic cardiomyopathy) Osteoporosis Pacemaker Pulmonary embolism Recurrent pleural effusion on right Respiratory failure with hypoxia Rib fracture Rib pain Right hip pain Shortness of breath Sinus tachycardia Thrombocytopenia Vitamin D deficiency Functional capacity: wheelchair bound Family History: Family History (Last Reviewed 12/14/21 @ 13:28 by YARI Castillo) Father Healthy adult male Mother Bladder cancer Surgical History: Surgical History (Last Reviewed 12/14/21 @ 13:28 by YARI Castillo) H/O splenectomy History of appendectomy History of cardiac pacemaker History of endoscopy History of esophagogastroduodenoscopy (EGD) History of hip surgery Hx of colonoscopy S/P TAVR (transcatheter aortic valve replacement) Social History: Social History (Last Reviewed 12/14/21 @ 13:28 by YARI Castillo) Living Situation History: Household Members: Spouse Household Members: Children Housing: House Are you a primary home care manager to a significant other at home: No Do you presently have visiting nurse or other home services: No Alcohol History Details: 1. How often do you have a drink containing alcohol?: b. Monthly or less 2. How many drinks containing alcohol do you have on a typical day when you are drinking?: a. 1 or 2 Tobacco History: Patient Tobacco Use Status: Never used Tobacco e-Cigarette/Vaping Use: Never Used Second Hand Smoke Exposure: No Substance Use History: Use of substances other than those prescribed or required for medical reasons : No Domestic Abuse History: Have you been hit, kicked, punched, or otherwise hurt by someone within the past year? If so, by whom?: No Do you feel safe in your current relationship?: Yes Advance Directives: Advance Directives: No Advance Directives Information Provided: No Advance Directives Date on File: 01/07/21 Homicidal Assessment: Do you have thoughts of harming others: None Do you have a plan to hurt others: No Plan Do you have the means to hurt others: No Nutrition Assessment: Recently lost weight without trying: No Patient : No Occupation Assessmet: service: Yes Current occupational status: employed Current occupational exposures/hazards: No Oncology Screenings - ECOG Performance Status ECOG Performance Status: 2 Home Medications and Allergies Home Medications Medication Instructions Recorded Confirmed Type eplerenone 25 mg tablet (Inspra) 25 mg PO DAILY 11/05/21 12/14/21 History levothyroxine 125 mcg tablet 300 mcg PO CRUZ 11/18/21 12/14/21 History (Synthroid) levothyroxine 150 mcg tablet 150 mcg PO MOTUWETHFRSA 11/18/21 12/14/21 History furosemide 20 mg tablet 60 mg PO BID 12/01/21 12/14/21 History Allergies Allergy/AdvReac Type Severity Reaction Status Date / Time No Known Allergies Allergy Verified 12/14/21 13:49 [No Known Allergies*] Exam Vital signs: Vital Signs Temp 97.6 F 12/14/21 15:41 Pulse 91 12/14/21 15:41 Resp 19 12/14/21 15:41 BP 99/54 L 12/14/21 15:41 Pulse Ox 98 12/14/21 15:41 O2 Del Method 12/14/21 15:41 O2 Flow Rate 2 12/01/21 09:36 Intake & Output 12/14/21 12/15/21 12/15/21 18:59 06:59 18:59 Other: Weight 70.4 kg Mystic Weight in Grams 28173 Weight 70.4 kg BMI result Body Mass Index 21.6 - Constitutional Present: no acute distress - Routine HEENT Exam Head: Present: normal inspection Eye: Present: normal appearance ENT: Present: mucous membranes moist - Routine Neck Exam Present: full ROM - Routine Respiratory Exam Present: decreased breath sounds, CTAB, rales - Routine Cardiovascular Exam Cardiovascular: Present: RRR, S1 - Routine Abdominal Exam Present: soft, nontender - Routine Extremities Exam Present: nontender - Routine Back/Spine/Pelvis Exam Back/Spine: Present: full ROM - Routine Skin Exam Present: intact - Routine Neurological Exam Present: alert, oriented X3 - Detailed Neurological Exam: Coma Scale Eye Opening: Spontaneous (4) - Routine Psychiatric Exam Present: normal affect. Absent: agitated Data - Labs CBC & Chem 7: 12/14/21 16:19 12/14/21 16:19 - Imaging Radiologist's impression: ITS Impressions Chest X-Ray 05/04/20 15:46 IMPRESSION: 1. Small right effusion. Vascularity normal. Heart size normal. 2. Old mediastinal lymph node calcification, similar to prior report 01/12/2011. 3. Large oval smooth calcification right anterior abdomen approximately 3 x 5 cm. Chest X-Ray 11/29/21 17:25 IMPRESSION: Interval slight worsening in the left upper lobe and parahilar interstitial changes likely pneumonitis or unilateral pulmonary venous congestion. Bibasilar haziness and right lower lobe opacity has slightly increased. Suspect bilateral small pleural effusions. Assessment and Plan Patient Active problem list reviewed?: Yes (1) Hodgkins lymphoma Status: Inactive Assessment and plan: 60 year-old gentleman with history of Hodgkin's Lymphoma diagnosed in 1989. He had disease recurrence in 1994, for which he had systemic chemotherapy until April 1996. He is clinically in remission and doing fairly well, for a long time. He was recently admitted with ITP. He has a Normal exam and blood work. LDH: 226. He had a CTA of the chest done which was non revealing. He had abnormal thyroid function. Ultrasound of the thyroid revealed a nodule. He underwent an FNA, on 09/16: [place]ye system calcification: Atypia of undetermined significance, category 3. AFIRMA genomic sequencing: No results. Insufficient healed I RNA. PLAN: He will probably need repeat testing. That will be set up by Dr. Suero. He will return in 6 months for a follow-up. Thank you, CC: Denis. Dr. Rios. Dr. Javier. (2) 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Status: Inactive Assessment and plan: 2. [place]'s Syndrome. He has seen a genetic counselor, Given the high risk for malignancy, cancer surveillance is the major focus of management. He is undergoing annual colonoscopies by Dr. Gillis, at [facility]. In terms of surveillance, a recommendation from NCCN is: 1) Annual comprehensive physical examination. 2) Thyroid ultrasound annually. 3) Colonoscopy every 5 years, more frequent if symptomatic. However in view of the Val's syndrome he should have annual colonoscopy. 4) Renal ultrasound to be repeated every 1 to 2 years. 5) Annual skin exam, also need to have a low index of suspicion for dysplastic gangliocytoma of the cerebellum. 6) If patient has symptoms, then neuroimaging is recommended, anyone with persistent headache. Previously he was noted to be anemic.Iron studies: /. 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 He is no longer anemic. PLAN: He had a colonoscopy last year by Dr. Leal. He was seen for anemia, January. He is currently maintained on iron. He will be following up with Dr. Leal for further evaluation including colonoscopy and video capsule study. He has to call for an appointment. Thank you, CC: Dr. Mann. Dr. Leal. (3) Acute ITP Status: Acute Assessment and plan: This is a pleasant 60-year-old gentleman with a previous history of Hodgkin's lymphoma 20 years ago. He had mantle field radiation. Lately he has had cardiac issues. He presented to the graphic manager, on 09/19. Was incidentally noted to have a platelet count of 2,000. He was admitted. Overnight, he received platelets and a dose of Decadron. DIFFERENTIAL DIAGNOSIS considered was: 1.ITP: is most likely. 2. Infection related: He did last turner to be COVID positive. That is most likely the underlying cause of the thrombocytopenia. 3. Drug-induced thrombocytopenia. 4. Myelo infiltrative disorder: Patient has history of Hodgkin's lymphoma. 5. DIC: Is in the differential. 6. TTP/HUS: not likely. He does not have the PENTAD. He was given a unit of platelets, on 09/20. He received a dose of Decadron 10 mg IV. Platelets came up to 21. He was then started on Decadron 40 mg p.o. daily for 5 days. A bone marrow exam was done on 09/21, under platelet cover. It revealed megakaryocytic hyperplasia without features of dysplasia, suggesting peripheral destruction as a cause of thrombocytopenia. Flow cytometry was negative for a lymphoproliferative disorder. Cytogenetics revealed normal male karyotype. He was given prednisone, as an outpatient. He has been started on rituximab as more definitive therapy for ITP. Meanwhile he was started on oral Decadron 40 mg daily for 5 days. Serial platelet counts: 09/21: 21, 09/22: 48, 09/23: 74. 09/27: 22. He was then started on prednisone 60 mg daily. 10/07: 43. Database: 10/14: CBC: WBC 15.9, HGB 14, HCT 41.9, PLT 228. CMP: Lytes WNL, CO2 32, glucose 131, BUN 26, CENTRALIZED TRAFFIC CONTROL OPERATOR 1.0. LFTs: 0.8//. Jose Alfredo 9.3, Alb 4. He was been started on rituximab. He received his 1st dose on 10/08. He tolerated it very well. He completed his 4th dose, on 10/29. Labs from 10/28: CBC: WBC 18, HGB 14.8, HCT 45.4, PLT 145. CMP: Lytes WNL, glu 139, BUN 24, CENTRALIZED TRAFFIC CONTROL OPERATOR 0.84. Jose Alfredo 9 7, alb 4.1. LFTs: 0.5// . His platelet count from 10/21: 21. He was on a prednisone taper down to 50 mg. His dose was increased back up to 60 mg. Platelet count 10/28: 145. Labs from 11/04: WBC 18.7, HGB 15.2, HCT 46, PLT 252. CMP: Glucose 111, BUN 28, CENTRALIZED TRAFFIC CONTROL OPERATOR 0.83. Jose Alfredo 8.9, alb 3.8. LFTs: 0.5/53/. He was admitted to the hospital back on 11/18. He had melena with a bout of hematemesis. His hemoglobin had dropped. EGD revealed: Gastric ulcer. He was on the prednisone taper. It was discontinued. Fortunately, his platelet count normalized. It appears that the rituximab is working. He was seen on 11/29. He was SOB. Noted to be anemic. He returned for a transfusion the next day, however had worsening SOB so sent to ED and was admitted. Chest x-ray was done: Interval slight worsening in the left upper lobe and parahilar interstitial changes likely pneumonitis or unilateral pulmonary venous congestion. Bibasilar haziness and right lower lobe opacity has slightly increased. Suspect bilateral small pleural effusions. He had B/L infiltrates on CAT scan of the chest. Treated with IV Zofran. Had ongoing fevers. Cat scan of abd/pelvis was negative. Diagnosed with LUE DVT. Was started on Lovenox. He has been recieving it in onc. department, [facility] insurance is able to cover the script. His breathing has gradually improved. PLAN: His platelets have normalized. Hopefully he will have a lasting remission. He has visiting nurses at home to help take care of him. Thank you, Cc: Roca. Leal. (4) Acute deep vein thrombosis of upper extremity Status: Acute Assessment and plan: 61 year old gentleman recently in house for pneumonia. Was on IV antibiotics. Developed phlebitis, from IV access. Subsequently had DVT. He was started on Lovenox. His left arm is significantly improved. PLAN: Will continue on the Lovenox for one month. Then switch him to a NOAC, Eliquis. He can go back to the 1 mg/kg dose when he takes it at home. He will return in a couple of weeks for a follow up. Thanks, - Time Spent With Patient Time Spent with Patient (in minutes): 30
[2021-12-15] MEDS: Enoxaparin Sodium 100 MG/ML SYRINGE SUBCUT (16:24)
[2021-12-15 16:28] VITALS: BP 118/58; PULSE 98; RESP 20; TEMP 36.6; O2SAT 93
--- NOTE | 2021-12-15 16:29 | MHC.HEMONC ---
Lovenox 100mg administered to left upper quadrant- well tolerated. VSS.
--- NOTE | 2021-12-16 13:09 | MHC.HEMONC ---
Patient called to report that he did receive Lovenox shipment. Dr. Merchant states to take dose now (1300) and about midnight and stagger by an hour each day so patient can start on an 8am-8pm or 9am-9pm. Patient verbalizes understanding.
--- NOTE | 2021-12-30 15:24 | PM.HEMONCPN ---
Medical Summary - Medical Summary Date of Service: 12/30/21 Chief complaint: Follow-up for: 1. ITP. 2. DVT. 3. Hodgkin lymphoma Medical Summary: DIAGNOSES: 1. Hodgkin's Lymphoma, diagnosed November 1989. Left supraclavicular adenopathy. Chest x-ray revealed a mediastinal mass. Staging laparotomy negative. 2. 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 3. Recent diagnosis of ITP. 4. Recent left upper extremity DVT. THERAPY: Received radiation therapy to inverted-Y field, stayed in remission for 5 years. He then developed recurrence in the right inguinal area. He was treated with 6 cycles of ABVD completed April 1996. He had radiation induced hypothyroidism. 2. He was started on Prednisone, currently 60 mg. Off of it. Completed rituximab week 4, on 10/29. 3. On Lovenox for recent left upper extremity DVT. Interval History Interval history: This is a pleasant 61 year-old gentleman, here for a follow-up visit. Overall, he is feeling better, on a daily basis, slowly but surely. His energy level has improved, so has his breathing. He has been getting PT at home. Last couple of times he has been going out to the street to walk. He is walking without a walker or a cane. No CP. His left arm swelling has almost subsided. He denies fever nor chills. No easy bruising nor systemic bleeding. His appetite is actually been really good. He has gained weight. Denies any fever chills no night sweats. No headache no dizziness. Denies abdominal pain nausea vomiting heartburn indigestion. His appetite is not that good. Partly because they are trying a more healthier, low-salt diet. He has constipation. He has been taking MiraLax. He is in good spirits. Rest of the review of systems is unremarkable. Presvious History: He was in house between 11/18 till 11/26. Discharge summary: Medical history of anemia, severe aortic stenosis, history of bioprosthetic heart valve, s/p TAVR,? LBBB, CHF status post AICD, hypothyroidism, history of complete heart block, history of Hodgkin's lymphoma, Rantoul's syndrome, history ITP, multinodular thyroid, history of remote pulmonary embolism-presently not anticoagulated.? He was admitted through ICU on 11/18 with upper GI bleeding, acute blood loss anemia complicated by shock. Has required 2 units of RBCs, EGD 11/19 showed 12 mm gastric ulcer. Sepsis d/t pneumonia, patient diagnosed to have sepsis due to fever and leukocytosis, lactic acid was negative patient treated with IV vancomycin and Zosyn, blood cultures x2 are negative times 48 hours patient evaluated by Dr. Canada from Infectious Disease she felt fever likely due to GI bleed and possibly aspiration infiltrate, procalcitonin level was low, therefore antibiotic discontinued after 4 days of therapy, patient noted to have no recurrent episodes of fever, and remained hemodynamically stable with normal lung examination. Upper GI bleeding, with initial hemorrhagic shock managed in the ICU, acute blood loss anemia--s/p 2 units, Hematocrit? improved post transfusion and remains stable, patient treated with Prilosec 40 mg b.i.d. upper endoscopy showed 12 mm gastric ulcer with visible vessel and no active bleeding, treated with epi and cauterized with gold probe, recommend no NSAIDs, aspirin held for 2 weeks and prednisone has been discontinued. Hypotension--normally runs a low systolic 90s to 100s, asymptomatic Recommend to resume all home medications, dose of Lasix reduced to 40 mg b.i.d.. Chronic HFpEF Status post AICD. history of non ischemc cardiomyopathy:? Patient noted to have no overt sign of heart failure has been continued on Lasix, and elprenone recommend close outpatient follow-up with Cardiology, will hold aspirin for 2 weeks. History of hypothyroidism Continue home levothyroxine ITP--Platelet?initially dropped from 210 on admission to? to 113. On 11/22, repeat platelet improved to 202. Prednisone has been discontinued due to gastric ulcer. Interim history from October: His platelet count had come up to 228. I started tapering his steroids. He was advised to go down to 55 mg. On 10/21 platelets dipped down to 21. Prednisone dose was increased back up to 60 mg. Platelet count yesterday was 145. He tells me his energy level is good. He worked till 23:30 last night. He tolerated the Rituxan very well. Interim history: He was admitted to the hospital on 09/20, with severe thrombocytopenia. I saw him on 09/21: He presented, with a chief complaint of low platelets. He tells me that he had felt weak and tired for a couple days. Over the weekend on Monday he had some trouble breathing. He had a cough. He took extra Lasix on Monday and Monday 60 mg in the morning and 40 in the evening both days. Monday night, he felt a little bit better however Monday during the day he felt more tired and fatigued. He noted petechiae on his legs. He saw his clerk to justice, Dr. Wyman who ordered labs checked his pacemaker function. He was incidentally noted to have very low platelets: 2000. He was noted to have a petechial rash; he was sent to the ER for further evaluation. Patient denies any headaches blurry visions, chest pain or palpitations, denies any signs of infection or recent viral infections; Denies any numbness tingling or focal weakness. Reports mild swelling of his ankles. CT head showed no acute findings. He was started on a course of Decadron, 40 mg daily for 5 days. Bone marrow exam was done on 09/21: It revealed megakaryocytic hyperplasia without features of dysplasia, suggesting peripheral destruction as a cause of thrombocytopenia. Flow cytometry was negative for a lymphoproliferative disorder. Cytogenetics revealed normal male karyotype. He was given prednisone, as an outpatient. He has been started on rituximab as more definitive therapy for ITP. He received the 1st dose on 10/08. He tells me during the infusion he had a slight fever. Infusion was stopped he was given premeds and then continued, doubt any further symptoms. He did have a touch of nausea that day. The Zofran to care of it. He denies any further GI complaints. Previous history: He had a CTA on 01/14/20 which revealed: 1. No acute pulmonary embolism. Prior segmental filling defects resolved since exam 10/25/2020. 2. Moderate right effusion slightly decreased since prior exam 10/25/2020. 3. Subsegmental atelectasis anterior medial right upper lobe and right posterior basal region. No segmental or lobar airspace consolidation. No pneumothorax. VTE: negative He tells me back in January, he was in house with a hip fracture. Discharge summary: He presented to the emergency department after sustaining a fall while getting out of his car. He was in the parking lot of [facility] when he turned and took a step and fell. He landed on the left side. He was unable to get up due to pain. He called security who assisted him to the emergency department where he was evaluated. X-rays of the left hip demonstrated impacted subcapital fracture of the femur. Orthopedics was consulted and the plan was to admit him to the orthopedic service and plan for surgical intervention. The patient underwent a successful left hip percutaneous pinning, was transferred to PACU and then to the floor to recover. During their stay, their vitals were stable. POD1 he was started on Lovenox for DVT ppx, they also received physical therapy and occupational therapy services twice a day. Postop day 3 his hematocrit dropped to 28.4 therefore he was transfused with 1 unit of packed red blood cells followed by 20 mg of IV Lasix. Prior to discharge, dressing remained clean dry and intact the plan is to be transferred to a short-term rehab. He was seen by GI Dr. Leal, during that admission: stools, where he required blood transfusion. He underwent upper endoscopy and colonoscopy to the terminal ileum. The colonoscopy showed multiple polyps consistent with his previous history of Rantoul syndrome with hamartomatous colon polyps. He also had large internal hemorrhoids and a lipoma. An upper endoscopy had been done the day prior to the colonoscopy, which showed gastric polyps, but no upper GI bleeding source was identified. He was discharged after his hematocrit was stable and outpatient followup capsule endoscopy was to be arranged. At the time, he presented with anemia and Hemoccult-positive stools. He had been on Eliquis for pulmonary embolism and also been on aspirin. It was felt safe to restart these medications at the time of his discharge. He was in rehab for 2 weeks and then he went home. 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 First week was tough however now he is getting the hand of it. His legs are getting stronger. He denies any adenopathy. Energy level is back to baseline. No abdominal pain nausea vomiting heartburn indigestion. His bowels are moving without any gross blood in it. He enjoys a good appetite. He has lost weight intentionally. He is eating healthy. He has cerebellar degeneration. He has difficulty with balance. He follows closely with the neurologist. He is in good spirits. Rest of the review of systems is unremarkable. He tells me he lost [address] Ohri who attributed the weight loss to abnormal thyroid function. His Synthroid was 175 mcg was lowered down to 125 mcg. He is starting to gain weight. Past medical history: He tells me he has had cardiac issues. He was admitted to the hospital in January 2019, for chest pain and shortness of breath. A stent was considered the block age was less than 30%. The plan is to optimize medical therapy, and for close observation. He was on Lasix 20 mg a day however he developed some lower extremity edema cough and shortness of breath. Lasix has been increased to 20 mg b.i.d. since then his symptoms have resolved. He also mentions that the battery on his pacemaker is due to be changed. He is actually seeing the clerk to justice here on Monday for his 1st appointment. He has been under care of vascular. They are contemplating starting Eliquis in future. He has been going back for annual colonoscopies under the care of Dr. Gillis. Next one is scheduled for September 2020. Review of Systems - Constitutional Reports no additional constitutional complaints, Reports weakness, Denies weight gain - Eyes Reports no additional eye complaints - ENT Reports no additional ear, nose, mouth, and throat complaints - Cardiovascular Reports no additional cardiovascular complaints - Respiratory Reports no additional respiratory complaints - Gastrointestinal Reports no additional gastrointestinal complaints - Genitourinary Genitourinary: Reports no additional male genitourinary complaints - Musculoskeletal Reports no additional musculoskeletal complaints - Integumentary/Breasts Skin/Breast: Reports no additional skin complaints - Neurologic Reports no additional neurologic complaints, Reports abnormal gait, Denies headache(s), Denies memory loss, Reports weakness - Psychiatric Reports no additional psychiatric complaints - Endocrine Reports no additional endocrine complaints - Hematologic/Lymphatic Reports no additional hematologic/lymphatic complaints - Allergic/Immunologic Reports no additional allergic/immunologic complaints [facility] Medical History: Medical History (Last Updated 12/14/21 @ 13:54 by Yesica Kay MD) Anemia Anemia Aortic stenosis, severe Bilateral pulmonary embolism Cardiac resynchronization therapy defibrillator (STEWARD/STEWARDESS THIRD CLASS-D) in place Complete heart block Congestive heart failure COVID-19 COVID-19 vaccine series completed Rantoul syndrome 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Fever Fever of unknown origin HFrEF (heart failure with reduced ejection fraction) Hodgkins lymphoma Hypotension (arterial) Hypothyroidism LBBB (left bundle branch block) Leukocytosis Pacemaker Pulmonary embolism Recurrent pleural effusion on right Respiratory failure with hypoxia Shortness of breath Sinus tachycardia Thrombocytopenia Functional capacity: wheelchair bound Patient : No Family History: Family History (Last Reviewed 12/30/21 @ 15:45 by Lisette Herrera) Father Healthy adult male Mother Bladder cancer Surgical History: Surgical History (Last Reviewed 12/30/21 @ 15:45 by Lisette Herrera) H/O splenectomy History of appendectomy History of cardiac pacemaker History of endoscopy History of esophagogastroduodenoscopy (EGD) History of hip surgery Hx of colonoscopy S/P TAVR (transcatheter aortic valve replacement) Social History: Social History (Last Updated 12/30/21 @ 15:47 by Lisette Herrera) Living Situation History: Household Members: Spouse Household Members: Children Housing: House Are you a primary farm or ranch animal caretaker to a significant other at home: No Do you presently have visiting nurse or other home services: No Alcohol History Details: 1. How often do you have a drink containing alcohol?: b. Monthly or less 2. How many drinks containing alcohol do you have on a typical day when you are drinking?: a. 1 or 2 Tobacco History: Patient Tobacco Use Status: Never used Tobacco e-Cigarette/Vaping Use: Never Used Second Hand Smoke Exposure: No Substance Use History: Use of substances other than those prescribed or required for medical reasons: No Domestic Abuse History: Have you been hit, kicked, punched, or otherwise hurt by someone within the past year? 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 Assessmet: service: Yes Current occupational status: employed Current occupational exposures/hazards: No Oncology Screenings - ECOG Performance Status ECOG Performance Status: 1 Home Medications and Allergies Home Medications Medication Instructions Recorded Confirmed Type eplerenone 25 mg tablet (Inspra) 25 mg PO DAILY 11/05/21 12/14/21 History levothyroxine 125 mcg tablet 300 mcg PO CRUZ 11/18/21 12/14/21 History (Synthroid) levothyroxine 150 mcg tablet 150 mcg PO MOTUWETHFRSA 11/18/21 12/14/21 History furosemide 20 mg tablet (Lasix) 60 mg PO BID 12/01/21 12/30/21 History alprazolam 0.25 mg tablet (Xanax) 0.25 mg PO BEDTIME PRN sleep 12/30/21 12/30/21 History Allergies Allergy/AdvReac Type Severity Reaction Status Date / Time No Known Allergies Allergy Verified 12/14/21 13:49 [No Known Allergies*] Exam Vital signs: Vital Signs Temp 97.8 F 12/15/21 16:28 Pulse 98 12/15/21 16:28 Resp 20 12/15/21 16:28 BP 118/58 L 12/15/21 16:28 Pulse Ox 93 12/15/21 16:28 O2 Del Method 12/15/21 16:28 O2 Flow Rate 2 12/01/21 09:36 Weight 70.4 kg BMI result Body Mass Index 21.6 - Constitutional Present: no acute distress - Routine HEENT Exam Head: Present: normal inspection Eye: Present: normal appearance ENT: Present: mucous membranes moist - Routine Neck Exam Present: full ROM - Routine Respiratory Exam Present: decreased breath sounds, CTAB, rales - Routine Cardiovascular Exam Cardiovascular: Present: RRR, S1 - Routine Abdominal Exam Present: soft, nontender - Routine Extremities Exam Present: nontender - Routine Back/Spine/Pelvis Exam Back/Spine: Present: full ROM - Routine Skin Exam Present: intact - Routine Neurological Exam Present: alert, oriented X3 - Detailed Neurological Exam: Coma Scale Eye Opening: Spontaneous (4) - Routine Psychiatric Exam Present: normal affect. Absent: agitated Data - Labs CBC & Chem 7: 12/30/21 15:39 12/30/21 15:39 - Imaging Radiologist's impression: ITS Impressions Chest X-Ray 05/04/20 15:46 IMPRESSION: 1. Small right effusion. Vascularity normal. Heart size normal. 2. Old mediastinal lymph node calcification, similar to prior report 01/12/2011. 3. Large oval smooth calcification right anterior abdomen approximately 3 x 5 cm. Chest X-Ray 11/29/21 17:25 IMPRESSION: Interval slight worsening in the left upper lobe and parahilar interstitial changes likely pneumonitis or unilateral pulmonary venous congestion. Bibasilar haziness and right lower lobe opacity has slightly increased. Suspect bilateral small pleural effusions. Assessment and Plan Patient Active problem list reviewed?: Yes (1) Hodgkins lymphoma Status: Inactive Assessment and plan: 61 year-old gentleman with history of Hodgkin's Lymphoma diagnosed in 1989. He had disease recurrence in 1994, for which he had systemic chemotherapy until April 1996. He is clinically in remission and doing fairly well, for a long time. He was recently admitted with ITP. He has a Normal exam and blood work. LDH: 226. He had a CTA of the chest done which was non revealing. He had abnormal thyroid function. Ultrasound of the thyroid revealed a nodule. He underwent an FNA, on 09/16: [place] system calcification: Atypia of undetermined significance, category 3. AFIRMA genomic sequencing: No results. Insufficient healed I RNA. PLAN: He will be following with Dr. Suero for repeat testing. He will return in 6 months for a follow-up. Thank you, CC: Denis. Dr. Rios. Dr. Javier. (2) Rantoul syndrome Status: Inactive Assessment and plan: 2. Rantoul's Syndrome. He has seen a genetic counselor, Given the high risk for malignancy, cancer surveillance is the major focus of management. He is undergoing annual colonoscopies by Dr. Gillis, at [facility]. In terms of surveillance, a recommendation from NCCN is: 1) Annual comprehensive physical examination. 2) Thyroid ultrasound annually. 3) Colonoscopy every 5 years, more frequent if symptomatic. However in view of the Rantoul's syndrome he should have annual colonoscopy. 4) Renal ultrasound to be repeated every 1 to 2 years. 5) Annual skin exam, also need to have a low index of suspicion for dysplastic gangliocytoma of the cerebellum. 6) If patient has symptoms, then neuroimaging is recommended, anyone with persistent headache. Previously he was noted to be anemic.Iron studies: . 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 He is no longer anemic. PLAN: He had a colonoscopy last year by Dr. Leal. He was seen for anemia, January. He is currently maintained on iron. He will be following up with Dr. Leal for further evaluation including colonoscopy and video capsule study. He has to call for an appointment. Thank you, CC: Dr. Mann. Dr. Leal. (3) Acute ITP Status: Acute Assessment and plan: This is a pleasant 60-year-old gentleman with a previous history of Hodgkin's lymphoma 20 years ago. He had mantle field radiation. Lately he has had cardiac issues. He presented to the clerk to justice, on 09/19. Was incidentally noted to have a platelet count of 2,000. He was admitted. Overnight, he received platelets and a dose of Decadron. DIFFERENTIAL DIAGNOSIS considered was: 1.ITP: is most likely. 2. Infection related: He did returning officer to be COVID positive. That is most likely the underlying cause of the thrombocytopenia. 3. Drug-induced thrombocytopenia. 4. Myelo infiltrative disorder: Patient has history of Hodgkin's lymphoma. 5. DIC: Is in the differential. 6. TTP/HUS: not likely. He does not have the PENTAD. He was given a unit of platelets, on 09/20. He received a dose of Decadron 10 mg IV. Platelets came up to 21. He was then started on Decadron 40 mg p.o. daily for 5 days. A bone marrow exam was done on 09/21, under platelet cover. It revealed megakaryocytic hyperplasia without features of dysplasia, suggesting peripheral destruction as a cause of thrombocytopenia. Flow cytometry was negative for a lymphoproliferative disorder. Cytogenetics revealed normal male karyotype. He was given prednisone, as an outpatient. He has been started on rituximab as more definitive therapy for ITP. Meanwhile he was started on oral Decadron 40 mg daily for 5 days. Serial platelet counts: 09/21: 21, 09/22: 48, 09/23: 74. 09/27: 22. He was then started on prednisone 60 mg daily. 10/07: 43. Database: 10/14: CBC: WBC 15.9, HGB 14, HCT 41.9, PLT 228. CMP: Lytes WNL, CO2 32, glucose 131, BUN 26, STEWARD/STEWARDESS THIRD CLASS 1.0. LFTs: 0.8/66//. Jose Alfredo 9.3, Alb 4. He was been started on rituximab. He received his 1st dose on 10/08. He tolerated it very well. He completed his 4th dose, on 10/29. Labs from 10/28: CBC: WBC 18, HGB 14.8, HCT 45.4, PLT 145. CMP: Lytes WNL, glu 139, BUN 24, STEWARD/STEWARDESS THIRD CLASS 0.84. Jose Alfredo 9 7, alb 4.1. LFTs: 0.5//. His platelet count from 10/21: 21. He was on a prednisone taper down to 50 mg. His dose was increased back up to 60 mg. Platelet count 10/28: 145. Labs from 11/04: WBC 18.7, HGB 15.2, HCT 46, PLT 252. CMP: Glucose 111, BUN 28, STEWARD/STEWARDESS THIRD CLASS 0.83. Jose Alfredo 8.9, alb 3.8. LFTs: 0.5//. He was admitted to the hospital back on 11/18. He had melena with a bout of hematemesis. His hemoglobin had dropped. EGD revealed: Gastric ulcer. He was on the prednisone taper. It was discontinued. Fortunately, his platelet count normalized. It appears that the rituximab is working. He was seen on 11/29. He was SOB. Noted to be anemic. He returned for a transfusion the next day, however had worsening SOB so sent to ED and was admitted. Chest x-ray was done: Interval slight worsening in the left upper lobe and parahilar interstitial changes likely pneumonitis or unilateral pulmonary venous congestion. Bibasilar haziness and right lower lobe opacity has slightly increased. Suspect bilateral small pleural effusions. He had B/L infiltrates on CAT scan of the chest. Treated with IV Zofran. Had ongoing fevers. Cat scan of abd/pelvis was negative. Diagnosed with LUE DVT. Was started on Lovenox. He has been giving it to himself, at home. His arm swelling has resolved. PLAN: His platelets have normalized. Hopefully he will have a lasting remission. He has visiting nurses at home to help take care of him. Thank you, Cc: Roca. Leal. (4) Acute deep vein thrombosis of upper extremity Status: Acute Assessment and plan: 61 year old gentleman recently in house for pneumonia. Was on IV antibiotics. Developed phlebitis, from IV access. Subsequently had DVT. He was started on Lovenox. He has been giving himself the shots at home. His left arm has resolved. D dimer: 765. PLAN: l will switch him to a NOAC, Eliquis. He was given a starter pack, till we get the PA from the insurance. He will return in 4 weeks for a follow up. Will check a D dimer and an ultrasound of his arm at that time, then decide about the duration of anticoagulation. Thanks, - Time Spent With Patient Time Spent with Patient (in minutes): 30
[2021-12-30 15:42] LABS: MANUAL DIFF FLAG NO
[2021-12-30 15:43] VITALS: BP 114/62; PULSE 92; RESP 14; TEMP 36.9; O2SAT 99; BMI 20.5
[2021-12-30 15:50] LABS: Basophils Absolute Auto 0.1 X10*3/uL (0.0-0.2); Eosinophils Absolute Auto 0.8 X10*3/uL (0.0-0.4); Eosinophils Percent Auto 7.5 % (0-4); Hematocrit 34.8 % (42.0-52.0); Hemoglobin 10.7 g/dl (14.0-18.0); Imm Gran Abs Auto 0.05 X10*3/uL (0.00-0.03); Imm Gran Pct Auto 0.5 % (0.0-0.4); Lymphocytes Absolute Auto 2.5 X10*3/uL (1.2-4.9); Lymphocytes Percent Auto 24.7 % (20-40); Mean Corpuscular HGB Conc 30.7 g/dl (31.0-36.0); Mean Corpuscular Hemoglobin 26.9 pg (27.0-33.0); Mean Corpuscular Volume 87.4 fL (80.0-98.0); Mean Platelet Volume 9.5 fL (9.4-12.4); Monocytes Absolute Auto 1.5 X10*3/uL (0.1-1.2); Monocytes Percent Auto 14.7 % (2-11); Neutrophils Absolute Auto 5.3 x10*3/uL (2.0-8.3); Neutrophils Percent Auto 51.6 % (45-73); Platelet Count 551 X10*3/uL (160-400); Red Blood Count 3.98 X10*6/uL (4.60-5.80); Red Cell Distribution Width 16.7 % (11.0-16.0); White Blood Count 10.2 X10*3/uL (4.8-10.8)
[2021-12-30 16:00] LABS: D Dimer High Sensitivity 765 NG/ML
[2021-12-30 16:07] LABS: Alanine Aminotransferase 12 U/L (0-40); Albumin Level 3.7 g/dL (3.5-5.0); Alkaline Phosphatase 62 U/L (39-117); Anion Gap 13 (12-20); Aspartate Amino Transferase 19 U/L (5-37); Bilirubin Total 0.4 mg/dL (0.0-1.0); Blood Urea Nitrogen 14 mg/dL (9-16); Calcium 8.7 mg/dL (8.4-10.2); Carbon Dioxide 33 mmol/L (22-29); Chloride 96 mmol/L (96-108); Creatinine Clr Calc Pharmacy 83.3; Estimated Glomerular Filt Rate > 60; Glucose Random 104 mg/dL (60-115); Sodium 138 mmol/L (135-145); Total Protein 6.5 g/dL (6.5-8.0)
--- NOTE | 2021-12-30 16:29 | MHC.HEMONC ---
Exam with Dr. Merchant. Labs obtained and reviewed. New order for Eliquis sent to pharmacy. Follow up in one month. Ultrasound of left upper extremity to be entered by Dr Merchant for follow of DVT.
[2022-01-31 14:47] VITALS: BP 109/61; PULSE 92; RESP 14; TEMP 37; O2SAT 97; BMI 20.9
--- NOTE | 2022-01-31 14:57 | PM.HEMONCPN ---
Medical Summary - Medical Summary Date of Service: 01/31/22 Chief complaint: Follow-up for: 1. ITP. 2. Hodgkin lymphoma. Medical Summary: DIAGNOSES: 1. Hodgkin's Lymphoma, diagnosed November 1989. Left supraclavicular adenopathy. Chest x-ray revealed a mediastinal mass. Staging laparotomy negative. 2. 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 3. Recent diagnosis of ITP. 4. Recent left upper extremity DVT. THERAPY: Received radiation therapy to inverted-Y field, stayed in remission for 5 years. He then developed recurrence in the right inguinal area. He was treated with 6 cycles of ABVD completed April 1996. He had radiation induced hypothyroidism. 2. He was started on Prednisone, currently 60 mg. Off of it. Completed rituximab week 4, on 10/29. 3. He was on Lovenox for recent left upper extremity DVT. Currently on Eliquis. Interval History Interval history: This is a pleasant 61 year-old gentleman, here for a follow-up visit. He tells me, he is feeling a whole lot better. He has been feeling little bit stronger every day. He is now walking 4 miles a day. His appetite has improved. He has been gaining weight. No CP nor SOB. His left arm swelling has subsided. He denies fever nor chills. No easy bruising nor systemic bleeding. His appetite is actually been really good. He has gained weight. Denies any fever chills no night sweats. No headache no dizziness. Denies abdominal pain nausea vomiting heartburn indigestion. He has constipation. He has been taking MiraLax. He is in good spirits. Rest of the review of systems is unremarkable. Presvious History: He was in house between 11/18 till 11/26. Discharge summary: Medical history of anemia, severe aortic stenosis, history of bioprosthetic heart valve, s/p TAVR,? LBBB, CHF status post AICD, hypothyroidism, history of complete heart block, history of Hodgkin's lymphoma, Val's syndrome, history ITP, multinodular thyroid, history of remote pulmonary embolism-presently not anticoagulated.? He was admitted through ICU on 11/18 with upper GI bleeding, acute blood loss anemia complicated by shock. Has required 2 units of RBCs, EGD 11/19 showed 12 mm gastric ulcer. Sepsis d/t pneumonia, patient diagnosed to have sepsis due to fever and leukocytosis, lactic acid was negative patient treated with IV vancomycin and Zosyn, blood cultures x2 are negative times 48 hours patient evaluated by Dr. Canada from Infectious Disease she felt fever likely due to GI bleed and possibly aspiration infiltrate, procalcitonin level was low, therefore antibiotic discontinued after 4 days of therapy, patient noted to have no recurrent episodes of fever, and remained hemodynamically stable with normal lung examination. Upper GI bleeding, with initial hemorrhagic shock managed in the ICU, acute blood loss anemia--s/p 2 units, Hematocrit? improved post transfusion and remains stable, patient treated with Prilosec 40 mg b.i.d. upper endoscopy showed 12 mm gastric ulcer with visible vessel and no active bleeding, treated with epi and cauterized with gold probe, recommend no NSAIDs, aspirin held for 2 weeks and prednisone has been discontinued. Hypotension--normally runs a low systolic 90s to 100s, asymptomatic Recommend to resume all home medications, dose of Lasix reduced to 40 mg b.i.d.. Chronic HFpEF Status post AICD. history of non ischemc cardiomyopathy:? Patient noted to have no overt sign of heart failure has been continued on Lasix, and elprenone recommend close outpatient follow-up with Cardiology, will hold aspirin for 2 weeks. History of hypothyroidism Continue home levothyroxine ITP--Platelet?initially dropped from 210 on admission to? to 113. On 11/22, repeat platelet improved to 202. Prednisone has been discontinued due to gastric ulcer. Interim history from October: His platelet count had come up to 228. I started tapering his steroids. He was advised to go down to 55 mg. On 10/21 platelets dipped down to 21. Prednisone dose was increased back up to 60 mg. Platelet count yesterday was 145. He tells me his energy level is good. He worked till 23:30 last night. He tolerated the Rituxan very well. Interim history: He was admitted to the hospital on 09/20, with severe thrombocytopenia. I saw him on 09/21: He presented, with a chief complaint of low platelets. He tells me that he had felt weak and tired for a couple days. Over the weekend on Monday he had some trouble breathing. He had a cough. He took extra Lasix on Monday and Monday 60 mg in the morning and 40 in the evening both days. Monday night, he felt a little bit better however Monday during the day he felt more tired and fatigued. He noted petechiae on his legs. He saw his police aide, Dr. Wyman who ordered labs checked his pacemaker function. He was incidentally noted to have very low platelets: 1999. He was noted to have a petechial rash; he was sent to the ER for further evaluation. Patient denies any headaches blurry visions, chest pain or palpitations, denies any signs of infection or recent viral infections; Denies any numbness tingling or focal weakness. Reports mild swelling of his ankles. CT head showed no acute findings. He was started on a course of Decadron, 40 mg daily for 5 days. Bone marrow exam was done on 09/21: It revealed megakaryocytic hyperplasia without features of dysplasia, suggesting peripheral destruction as a cause of thrombocytopenia. Flow cytometry was negative for a lymphoproliferative disorder. Cytogenetics revealed normal male karyotype. He was given prednisone, as an outpatient. He has been started on rituximab as more definitive therapy for ITP. He received the 1st dose on 10/08. He tells me during the infusion he had a slight fever. Infusion was stopped he was given premeds and then continued, doubt any further symptoms. He did have a touch of nausea that day. The Zofran to care of it. He denies any further GI complaints. Previous history: He had a CTA on 01/14/20 which revealed: 1. No acute pulmonary embolism. Prior segmental filling defects resolved since exam 10/25/2020. 2. Moderate right effusion slightly decreased since prior exam 10/25/2020. 3. Subsegmental atelectasis anterior medial right upper lobe and right posterior basal region. No segmental or lobar airspace consolidation. No pneumothorax. VTE: negative He tells me back in January, he was in house with a hip fracture. Discharge summary: He presented to the emergency department after sustaining a fall while getting out of his car. He was in the parking lot of [facility] when he turned and took a step and fell. He landed on the left side. He was unable to get up due to pain. He called security who assisted him to the emergency department where he was evaluated. X-rays of the left hip demonstrated impacted subcapital fracture of the femur. Orthopedics was consulted and the plan was to admit him to the orthopedic service and plan for surgical intervention. The patient underwent a successful left hip percutaneous pinning, was transferred to PACU and then to the floor to recover. During their stay, their vitals were stable. POD1 he was started on Lovenox for DVT ppx, they also received physical therapy and occupational therapy services twice a day. Postop day 3 his hematocrit dropped to 28.4 therefore he was transfused with 1 unit of packed red blood cells followed by 20 mg of IV Lasix. Prior to discharge, dressing remained clean dry and intact the plan is to be transferred to a short-term rehab. He was seen by GI Dr. Leal, during that admission: stools, where he required blood transfusion. He underwent upper endoscopy and colonoscopy to the terminal ileum. The colonoscopy showed multiple polyps consistent with his previous history of Kirkland syndrome with hamartomatous colon polyps. He also had large internal hemorrhoids and a lipoma. An upper endoscopy had been done the day prior to the colonoscopy, which showed gastric polyps, but no upper GI bleeding source was identified. He was discharged after his hematocrit was stable and outpatient followup capsule endoscopy was to be arranged. At the time, he presented with anemia and Hemoccult-positive stools. He had been on Eliquis for pulmonary embolism and also been on aspirin. It was felt safe to restart these medications at the time of his discharge. He was in rehab for 2 weeks and then he went home. 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 First week was tough however now he is getting the hand of it. His legs are getting stronger. He denies any adenopathy. Energy level is back to baseline. No abdominal pain nausea vomiting heartburn indigestion. His bowels are moving without any gross blood in it. He enjoys a good appetite. He has lost weight intentionally. He is eating healthy. He has cerebellar degeneration. He has difficulty with balance. He follows closely with the neurologist. He is in good spirits. Rest of the review of systems is unremarkable. He tells me he lost [address] Suero who attributed the weight loss to abnormal thyroid function. His Synthroid was 175 mcg was lowered down to 125 mcg. He is starting to gain weight. Past medical history: He tells me he has had cardiac issues. He was admitted to the hospital in January 2019, for chest pain and shortness of breath. A stent was considered the block age was less than 30%. The plan is to optimize medical therapy, and for close observation. He was on Lasix 20 mg a day however he developed some lower extremity edema cough and shortness of breath. Lasix has been increased to 20 mg b.i.d. since then his symptoms have resolved. He also mentions that the battery on his pacemaker is due to be changed. He is actually seeing the police aide here on Monday for his 1st appointment. He has been under care of vascular. They are contemplating starting Eliquis in future. He has been going back for annual colonoscopies under the care of Dr. Gillis. Next one is scheduled for September 2020. Review of Systems - Constitutional Reports no additional constitutional complaints, Denies fatigue, Denies fever(s), Reports increased appetite, Denies lack of energy, Denies malaise, Denies night sweats, Denies poor appetite, Reports weight gain - Eyes Reports no additional eye complaints - ENT Reports no additional ear, nose, mouth, and throat complaints - Cardiovascular Reports no additional cardiovascular complaints - Respiratory Reports no additional respiratory complaints - Gastrointestinal Reports no additional gastrointestinal complaints - Genitourinary Genitourinary: Reports no additional male genitourinary complaints - Musculoskeletal Reports no additional musculoskeletal complaints - Integumentary/Breasts Skin/Breast: Reports no additional skin complaints - Neurologic Reports no additional neurologic complaints, Reports abnormal gait, Denies headache(s), Denies memory loss, Reports weakness - Psychiatric Reports no additional psychiatric complaints - Endocrine Reports no additional endocrine complaints - Hematologic/Lymphatic Reports no additional hematologic/lymphatic complaints - Allergic/Immunologic Reports no additional allergic/immunologic complaints [facility] Medical History: Medical History (Last Reviewed 01/31/22 @ 14:52 by Christine Kwon [facility]) Acute deep vein thrombosis of upper extremity Acute ITP Anemia Anemia Aortic stenosis, severe Bilateral pulmonary embolism Cardiac resynchronization therapy defibrillator (CIRCULAR CLERK-D) in place Complete heart block Congestive heart failure COVID-19 COVID-19 vaccine series completed 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Kirkland syndrome Fever Fever of unknown origin HFrEF (heart failure with reduced ejection fraction) Hodgkins lymphoma Hypocalcemia Hypotension (arterial) Hypothyroidism LBBB (left bundle branch block) Leukocytosis Low TSH level Lung infiltrate Multifocal pneumonia Multinodular thyroid Multinodular thyroid NICM (nonischemic cardiomyopathy) Osteoporosis Pacemaker Pulmonary embolism Recurrent pleural effusion on right Respiratory failure with hypoxia Rib fracture Rib pain Right hip pain Shortness of breath Sinus tachycardia Thrombocytopenia Vitamin D deficiency Functional capacity: independent ambulation Patient : No Family History: Family History (Last Reviewed 01/31/22 @ 14:52 by Christine Kwon CMA) Father Healthy adult male Mother Bladder cancer Surgical History: Surgical History (Last Reviewed 01/31/22 @ 14:52 by Christine Kwon CMA) H/O splenectomy History of appendectomy History of cardiac pacemaker History of endoscopy History of esophagogastroduodenoscopy (EGD) History of hip surgery Hx of colonoscopy S/P TAVR (transcatheter aortic valve replacement) Social History: Social History (Last Reviewed 01/31/22 @ 14:52 by Christine Kwon CMA) Living Situation History: Household Members: Spouse Household Members: Children Housing: House Are you a primary animal care technician to a significant other at home: No Do you presently have visiting nurse or other home services: No Alcohol History Details: 1. How often do you have a drink containing alcohol?: b. Monthly or less 2. How many drinks containing alcohol do you have on a typical day when you are drinking?: a. 1 or 2 Tobacco History: Patient Tobacco Use Status: Never used Tobacco e-Cigarette/Vaping Use: Never Used Second Hand Smoke Exposure: No Substance Use History: Use of substances other than those prescribed or required for medical reasons: No Domestic Abuse History: Have you been hit, kicked, punched, or otherwise hurt by someone within the past year? 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 Assessmet: service: Yes Current occupational status: employed Current occupational exposures/hazards: No Oncology Screenings - ECOG Performance Status ECOG Performance Status: 0 Home Medications and Allergies Home Medications Medication Instructions Recorded Confirmed Type eplerenone 25 mg tablet (Inspra) 25 mg PO DAILY 11/05/21 01/31/22 History levothyroxine 125 mcg tablet 300 mcg PO CRUZ 11/18/21 01/31/22 History (Synthroid) levothyroxine 150 mcg tablet 150 mcg PO MOTUWETHFRSA 11/18/21 01/31/22 History furosemide 20 mg tablet (Lasix) 60 mg PO BID 12/01/21 01/31/22 History alprazolam 0.25 mg tablet (Xanax) 0.25 mg PO BEDTIME PRN sleep 12/30/21 01/31/22 History Allergies Allergy/AdvReac Type Severity Reaction Status Date / Time No Known Allergies Allergy Verified 01/31/22 14:52 [No Known Allergies*] Exam Vital signs: Vital Signs Temp 98.6 F 01/31/22 14:47 Pulse 92 01/31/22 14:47 Resp 14 01/31/22 14:47 BP 109/61 01/31/22 14:47 Pulse Ox 97 01/31/22 14:47 O2 Del Method 01/31/22 14:47 O2 Flow Rate 2 12/01/21 09:36 Intake & Output 01/30/22 01/31/22 01/31/22 18:59 06:59 18:59 Other: Weight 68.1 kg [place] Weight in Grams 24827 Weight 68.1 kg BMI result Body Mass Index 20.9 - Constitutional Present: no acute distress - Routine HEENT Exam Head: Present: normal inspection Eye: Present: normal appearance ENT: Present: mucous membranes moist - Routine Neck Exam Present: full ROM - Routine Respiratory Exam Present: decreased breath sounds, CTAB, rales - Routine Cardiovascular Exam Cardiovascular: Present: RRR, S1 - Routine Abdominal Exam Present: soft, nontender - Routine Extremities Exam Present: nontender - Routine Back/Spine/Pelvis Exam Back/Spine: Present: full ROM - Routine Skin Exam Present: intact - Routine Neurological Exam Present: alert, oriented X3 - Detailed Neurological Exam: Coma Scale Eye Opening: Spontaneous (4) - Routine Psychiatric Exam Present: normal affect. Absent: agitated Data - Labs CBC & Chem 7: 12/30/21 15:39 12/30/21 15:39 - Imaging Radiologist's impression: ITS Impressions Chest X-Ray 10/26/20 15:46 IMPRESSION: 1. Small right effusion. Vascularity normal. Heart size normal. 2. Old mediastinal lymph node calcification, similar to prior report 01/12/2011. 3. Large oval smooth calcification right anterior abdomen approximately 3 x 5 cm. Chest X-Ray 11/29/21 17:25 IMPRESSION: Interval slight worsening in the left upper lobe and parahilar interstitial changes likely pneumonitis or unilateral pulmonary venous congestion. Bibasilar haziness and right lower lobe opacity has slightly increased. Suspect bilateral small pleural effusions. Assessment and Plan Patient Active problem list reviewed?: Yes (1) Hodgkins lymphoma Status: Inactive Assessment and plan: 61 year-old gentleman with history of Hodgkin's Lymphoma diagnosed in 1989. He had disease recurrence in 1994, for which he had systemic chemotherapy until April 1996. He is clinically in remission and doing fairly well, for a long time. He was recently admitted with ITP. He has a Normal exam and blood work. LDH: 226. He had a CTA of the chest done which was non revealing. He had abnormal thyroid function. Ultrasound of the thyroid revealed a nodule. He underwent an FNA, on 09/16: [place] system calcification: Atypia of undetermined significance, category 3. AFIRMA genomic sequencing: No results. Insufficient healed I RNA. PLAN: He will be following with Dr. Suero for repeat testing. He will return in 6 months for a follow-up. Thank you, CC: Denis. Dr. Rios. Dr. Javier. (2) Kirkland syndrome Status: Inactive Assessment and plan: 2. Val's Syndrome. He has seen a genetic counselor, Given the high risk for malignancy, cancer surveillance is the major focus of management. He is undergoing annual colonoscopies by Dr. Gillis, at [facility]. In terms of surveillance, a recommendation from NCCN is: 1) Annual comprehensive physical examination. 2) Thyroid ultrasound annually. 3) Colonoscopy every 5 years, more frequent if symptomatic. However in view of the Val's syndrome he should have annual colonoscopy. 4) Renal ultrasound to be repeated every 1 to 2 years. 5) Annual skin exam, also need to have a low index of suspicion for dysplastic gangliocytoma of the cerebellum. 6) If patient has symptoms, then neuroimaging is recommended, anyone with persistent headache. Previously he was noted to be anemic.Iron studies: /. 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 He is no longer anemic. PLAN: He had a colonoscopy last year by Dr. Leal. He was seen for anemia, January. He is currently maintained on iron. He will be following up with Dr. Leal for further evaluation including colonoscopy and video capsule study. He has to call for an appointment. Thank you, CC: Dr. Mann. Dr. Leal. (3) Acute ITP Status: Acute Assessment and plan: This is a pleasant 60-year-old gentleman with a previous history of Hodgkin's lymphoma 20 years ago. He had mantle field radiation. Lately he has had cardiac issues. He presented to the police aide, on 09/19. Was incidentally noted to have a platelet count of 2,000. He was admitted. Overnight, he received platelets and a dose of Decadron. DIFFERENTIAL DIAGNOSIS considered was: 1.ITP: is most likely. 2. Infection related: He did air turning machine feeder to be COVID positive. That is most likely the underlying cause of the thrombocytopenia. 3. Drug-induced thrombocytopenia. 4. Myelo infiltrative disorder: Patient has history of Hodgkin's lymphoma. 5. DIC: Is in the differential. 6. TTP/HUS: not likely. He does not have the PENTAD. He was given a unit of platelets, on 09/20. He received a dose of Decadron 10 mg IV. Platelets came up to 21. He was then started on Decadron 40 mg p.o. daily for 5 days. A bone marrow exam was done on 09/21, under platelet cover. It revealed megakaryocytic hyperplasia without features of dysplasia, suggesting peripheral destruction as a cause of thrombocytopenia. Flow cytometry was negative for a lymphoproliferative disorder. Cytogenetics revealed normal male karyotype. He was given prednisone, as an outpatient. He has been started on rituximab as more definitive therapy for ITP. Meanwhile he was started on oral Decadron 40 mg daily for 5 days. Serial platelet counts: 09/21: 21, 09/22: 48, 09/23: 74. 09/27: 22. He was then started on prednisone 60 mg daily. 10/07: 43. Database: 10/14: CBC: WBC 15.9, HGB 14, HCT 41.9, PLT 228. CMP: Lytes WNL, CO2 32, glucose 131, BUN 26, CIRCULAR CLERK 1.0. LFTs: 0.8/66/. Jose Alfredo 9.3, Alb 4. He was been started on rituximab. He received his 1st dose on 10/08. He tolerated it very well. He completed his 4th dose, on 10/29. Labs from 10/28: CBC: WBC 18, HGB 14.8, HCT 45.4, PLT 145. CMP: Lytes WNL, glu 139, BUN 24, CIRCULAR CLERK 0.84. Jose Alfredo 9 7, alb 4.1. LFTs: 0.5//. His platelet count from 10/21: 21. He was on a prednisone taper down to 50 mg. His dose was increased back up to 60 mg. Platelet count 10/28: 145. Labs from 11/04: WBC 18.7, HGB 15.2, HCT 46, PLT 252. CMP: Glucose 111, BUN 28, CIRCULAR CLERK 0.83. Jose Alfredo 8.9, alb 3.8. LFTs: 0.5//. He was admitted to the hospital back on 11/18. He had melena with a bout of hematemesis. His hemoglobin had dropped. EGD revealed: Gastric ulcer. He was on the prednisone taper. It was discontinued. Fortunately, his platelet count normalized. It appears that the rituximab is working. He was seen on 11/29. He was SOB. Noted to be anemic. He returned for a transfusion the next day, however had worsening SOB so sent to ED and was admitted. Chest x-ray was done: Interval slight worsening in the left upper lobe and parahilar interstitial changes likely pneumonitis or unilateral pulmonary venous congestion. Bibasilar haziness and right lower lobe opacity has slightly increased. Suspect bilateral small pleural effusions. He had B/L infiltrates on CAT scan of the chest. Treated with IV Zofran. Had ongoing fevers. Cat scan of abd/pelvis was negative. Diagnosed with LUE DVT. Was started on Lovenox. His arm swelling resolved. He was then switched to Eliquis. From 01/26, Database: CBC: WBC 7.4, HGB 10.1, HCT 33, MCV 84.4, PLT 398. CMP: Lytes WNL, glucose 96, BUN 11, CIRCULAR CLERK 0.76. Ca late 0.9, ALP 3.9. LFTs: 0.4/66/19/8. LDH: 29. He is feeling significantly better. His platelets have normalized. Hopefully he will have a lasting remission. PLAN: He is very motivated. He is trying to get all his strength back. The plan is to continue to monitor his counts. He will return in 1 month for labs. He will return in 2 months for a follow-up. Thank you, Cc: Roca. Leal. (4) Acute deep vein thrombosis of upper extremity Status: Acute Assessment and plan: 61 year old gentleman recently in house for pneumonia. Was on IV antibiotics. Developed phlebitis, from IV access. Subsequently had DVT. He was started on Lovenox. He has been giving himself the shots at home. His left arm has resolved. D dimer: 765. l switched him to a NOAC, Eliquis. He has been tolerating it well. His arm swelling has almost subsided. His D-dimer: 848. PLAN: He will continue on the Eliquis for now. Will recheck ultrasound in a couple of months time, then decide about the duration of anticoagulation. He will return in 2 months for a follow up. Thanks, CC: Dr. Mann. - Time Spent With Patient Time Spent with Patient (in minutes): 30
--- NOTE | 2022-01-31 16:19 | MHC.HEMONCMA ---
Pt was in for follow up. Clinical summary reviewed and updated, VSS. Labs were drawn. Pt to return in 2 months.
--- NOTE | 2022-03-11 16:39 | MHC.HEMONC ---
Pt called department questioning recent lab results and elevated PTT. Dr Merchant notified-plan to repeat labs on 03/16/22-pt agreeable to plan. Appointment scheduled
--- NOTE | 2022-03-16 15:45 | MHC.HEMONC ---
[place] [facility] [place], had labs drawn peripherally, and departed.
--- NOTE | 2022-08-03 16:04 | MHC.HEMONC ---
Addendum entered by Eduardo Rodriguez RN 08/04/22 13:48: Nurse confirmed w/ Dr. Merchant she had sent new scrip for Eliquis 5mg PO BID to begin after pt finishes 9 days of Eliquis 10mg PO BID. Nurse notified pt by phone. Original Note: Nurse took t/c from pt, reported he was just d/c'd from [facility] for P.E., was told he's to continue on PO Eliquis. He said he was given scrip to take Eliquis 5mg tabs, that he should take Eliquis 10mg (two tabs) PO BID x 9 days, but the scrip does not mention anything after that.?Nurse confirmed by reading Dr. Wilson's [facility] d/c note, that pt is indeed supposed to switch to reduced dose of Eliquis 5 mg PO BID after the [address]. [address] Merchant is not in today, nurse told pt that he will have Dr. Merchant review his chart and f/u w/ him the next day about getting scrip for additional Eliquis.
--- NOTE | 2022-10-17 10:22 | MHC.HEMONC ---
Triage call: Patient is scheduled to see Dr. Merchant on 10/20/22 at 1440- Patient aware but would like to speak to Dr. Merchant prior of possible regarding returning to work. Dr. Merchant aware and will call patient later today.
--- NOTE | 2022-10-17 11:14 | MHC.HEMONC ---
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
--- NOTE | 2022-10-17 12:11 | MHC.HEMONC ---
Appt with Dr. Simms made for Thursday 10/19 at 1130- Dr. Merchant will notify patient.
--- NOTE | 2022-10-18 09:11 | MHC.HEMONC ---
Triage call-pt called inquiring when next appointment is scheduled-pt scheduled for 10/21/22 at 1440-pt notified
--- NOTE | 2022-10-19 10:44 | MHC.HEMONCMA ---
patient aware of ct chest/abd/pel on 11/03/22 at 11, aware with instructions
--- NOTE | ~2022-10-21 | XR_ITS ---
EXAMINATION: XR CHEST CLINICAL INFORMATION: CHF COMPARISON: Chest 09/22/2021 TECHNIQUE: 2 views of the chest were obtained. FINDINGS: The lungs are hypoexpanded. There is increased patchy opacity right lung base and haziness throughout in left lung base. Increased interstitial markings are seen in both upper lobes slightly greater in the left upper lobe and left perihilar regions slightly worse compared to previous study November 1621 there is aortic stent in place. There are dual pacer electrodes in the right atrium and right ventricle. Heart size is borderline normal. No gross bony abnormality seen. XR/XR chest 2V IMPRESSION: Interval slight worsening in the left upper lobe and parahilar interstitial changes likely pneumonitis or unilateral pulmonary venous congestion. Bibasilar haziness and right lower lobe opacity has slightly increased. Suspect bilateral small pleural effusions.
[2022-10-21 14:46] VITALS: BP 99/57; PULSE 102; TEMP 36.7; O2SAT 98; BMI 18.7
[2022-10-21 15:11] LABS: Basophils Absolute Auto 0.1 X10*3/uL (0.0-0.2); Basophils Percent Auto 0.8 % (0-2); Eosinophils Absolute Auto 0.2 X10*3/uL (0.0-0.4); Eosinophils Percent Auto 1.4 % (0-4); Hematocrit 35.6 % (42.0-52.0); Hemoglobin 11.1 g/dl (14.0-18.0); Imm Gran Abs Auto 0.06 X10*3/uL (0.00-0.03); Imm Gran Pct Auto 0.5 % (0.0-0.4); Lymphocytes Percent Auto 15.2 % (20-40); MANUAL DIFF FLAG SCAN; Mean Corpuscular HGB Conc 31.2 g/dl (31.0-36.0); Mean Corpuscular Hemoglobin 27.6 pg (27.0-33.0); Mean Corpuscular Volume 88.6 fL (80.0-98.0); Mean Platelet Volume 9.7 fL (9.4-12.4); Monocytes Absolute Auto 1.7 X10*3/uL (0.1-1.2); Monocytes Percent Auto 12.6 % (2-11); Neutrophils Absolute Auto 9.2 x10*3/uL (2.0-8.3); Neutrophils Percent Auto 69.5 % (45-73); Platelet Count 505 X10*3/uL (160-400); Red Blood Count 4.02 X10*6/uL (4.60-5.80); Red Cell Distribution Width 16.9 % (11.0-16.0); SCAN SMEAR FLAG 1; White Blood Count 13.3 X10*3/uL (4.8-10.8)
--- NOTE | 2022-10-21 15:14 | P.PNHO-ONC_ITS ---
Medical Summary - Medical Summary Date of Service: 10/21/22 Chief complaint: Follow-up for: Gastric carcinoma. Pulmonary embolism. Hodgkin lymphoma. Primary Care Provider: Yesica Kay MD Medical Summary: DIAGNOSES: 1. Hodgkin's Lymphoma, diagnosed November 1989. Left supraclavicular adenopathy. Chest x-ray revealed a mediastinal mass. Staging laparotomy negative. 2. 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 4. Left upper extremity DVT. 5. P.E. 6. Gastric cancer. THERAPY: Received radiation therapy to inverted-Y field, stayed in remission for 5 years. He then developed recurrence in the right inguinal area. He was treated with 6 cycles of ABVD completed April 1996. He had radiation induced hypothyroidism. 2. He was started on Prednisone, currently 60 mg. Off of it. Completed rituximab week 4, on 10/29. 3. He was on Lovenox for recent left upper extremity DVT. Currently Eliquis on hold due to bleeding. 4. Recently diagnosed with gastric carcinoma. Interval History Interval history: This is a pleasant 61 year-old gentleman, here for a follow-up visit. Patient was in house between 10/10 and 10/14. Discharge summary: He stated he has been experiencing fatigue, CAMARGO, and lightheadedness (different than his vertigo). No fevers, chills, recent illness, otalgia, tinnitus, change in hearing, abdominal pain, diarrhea, melena, hematochezia, palpitations, or chest pain.? He reported constipation and last bowel movement was last night and was quite soft but no watery stool. On arrival, vital stable, blood pressure soft at 94/57 on exam.? Leukocytosis of 13.2, RBC 2.07, H/H 5.3/17.2% (9.8/ 30.1% on 09/13). Iron 14, TIBC 306, 5% saturation, ferritin 15. LDH 217. Stool occult blood negative. PT 24.9, INR 2.1, PTT 54.1. Renal function normal, electrolyte levels normal. Trop WNL. UA unremarkable.? Head CT negative for any acute intracranial abnormality.?Lumbar puncture perf ormed to further evaluate thunderclap headache. No RBCs. CSF unremarkable overall, gram stain negative, culture pending. CXR showing minimal blunting of the costophrenic angles bilaterally related to scarring vs trace effusions. In the ED, patient received IV morphine with resolution of headache, o ndansetron, 1 L IVF, and 2 units packed red blood cells. the patient was admitted for evaluation of Acute on chronic iron deficiency anemia related to blood loss from gastric ulcer secondary to eliquis use. EGD was consistent large 10 cm oozing ulcer with no active bleeding. 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 Responded well after 2 units transfusion with Hb maintaining above 8. patient was able to ambulate on RA with no reported dyspnea. He was treated with IV PPI 40mg BID and Iron supplements. GI recommended to DC Eliquis and discharge on Omeprazole with a plan to follow up as outpatient as Hb remained stable with no further drop noted. Had Acute occipital headache at time of presentation. resolved. SAH ruled out with head CT and LP. Vertigo/Gait instability as he has known chemotherapy related cerebellar dysfunction. seen by PT who recommended home PT. Start Iron pills and Omeprazole as prescribed Discontinue Eliquis. To follow with dr Leal for biopsy result and further work up if needed He tells me, he is feeling very fatigued. He is mostly sitting down does not have the unf. He walks around with the help of cane or walker. Complains of belly pain especially if he has not eaten anything. It subsides when he relaxed. He does not eat too much for fear of getting nauseous. His stool is still dark. He is taking iron. He has constipation. He has be en taking colace. He does have an appetite. He has been losing weight. No CP nor SOB. He denies fever nor chills. No easy bruising nor systemic bleeding. No headache, he gets dizziness, on getting up. His spirits are low. Rest of the review of systems is unremarkable. Previous History: He was in house between 11/18 till 11/26. Discharge summary: Medical history of anemia, severe aortic stenosis, history of bioprosthetic heart valve, s/p TAVR,? LBBB, CHF status post AICD, hypothyroidism, history of complete heart block, history of Hodgkin's lymphoma, Val's syndrome, history ITP, multinodular thyroid, history of remote pulmonary embolism-presently not an ticoagulated.? He was admitted through ICU on 11/18 with upper GI bleeding, acute blood loss anemia complicated by shock. Has required 2 units of RBCs, EGD 11/19 showed 12 mm gastric ulcer. Sepsis d/t pneumonia, patient diagnosed to have sepsis due to fever and leukocytosis, lactic acid was negative patient treated with IV vancomycin and Zosyn, blood cultures x2 are negative times 48 hours patient evaluated by Dr. Canada from Infectious Disease she felt fever likely due to GI bleed and pos sibly aspiration infiltrate, procalcitonin level was low, therefore antibiotic discontinued after 4 days of therapy, patient noted to have no recurrent episodes of fever, and remained hemodynamically stable with normal lung examination. Upper GI bleeding, with initial hemorrhagic shock managed in the ICU, acute blood loss anemia--s/p 2 units, Hematocrit? improved post transfusion and remains stable, patient treated with Prilosec 40 mg b.i.d. upper endoscopy showed 12 mm gastric ulcer with visible vessel and no active bleeding, treated with epi and cauterized with gold probe, recommend no NSAIDs, aspirin held for 2 weeks and prednisone has been discontinued. Hypotension--normally runs a low systolic 90s to 100s, asymptomatic Recommend to resume all home medications, dose of Lasix reduced to 40 mg b.i.d.. Chronic HFpEF Status post AICD. history of non ischemc cardiomyopathy:? Patient noted to have no overt sign of heart failure has been continued on Lasix, and elprenone recommend close outpatient follow-up with Cardiology, will hold aspirin for 2 weeks. History of hypothyroidism Continue home levothyroxine ITP--Platelet?initially dropped from 210 on admission to? to 113. On 11/22, repeat platelet improved to 202. Prednisone has been discontinued due to gastric ulcer. Interim history from October: His platelet count had come up to 228. I started tapering his steroids. He was advised to go down to 55 mg. On 10/21 platelets dipped down to 21. Prednisone dose was increased back up to 60 mg. Platelet count yesterday was 145. He tells me his energy level is good. He worked till 23:30 last night. He tolerated the Rituxan very well. Interim history: He was admitted to the hospital on 09/20, with severe thrombocytopenia. I saw him on 09/21: He presented, with a chief complaint of low platelets. He tells me that he had felt weak and tired for a couple days. Over the weekend on Monday he had some trouble breathing. He had a cough. He took extra Lasix on Monday and Monday 60 mg in the morning and 40 in the ev ening both days. Monday night, he felt a little bit better however Monday during the day he felt more tired and fatigued. He noted petechiae on his legs. He saw his counseling program leader, Dr. Wyman who ordered labs checked his pacemaker function. He was incidentally noted to have very low platelets: 1999. He was noted to have a petechial rash; he was sent to the ER for further evaluation. Patient denies any headaches blurry visions, chest pain or palpitations, denies any signs of infection or recent viral infections; Denies any numbness tingling or focal weakness. Reports mild swelling of his ankles. CT head showed no acute findings. He was started on a course of Decadron, 40 mg daily for 5 days. Bone marrow exam was done on 09/21: It revealed megakaryocytic hyperplasia without features of dysplasia, suggesting peripheral destruction as a cause of thrombocytopenia. Flow cytometry was negative for a lymphoproliferative disorder. Cytogenetics revealed normal male karyotype. He was given prednisone, as an outpatient. He has been started on rituximab as more definitive therapy for ITP. He received the 1st dose on 10/08. He tells me during the infusion he had a slight fever. Infusion was stopped he was given premeds and then continued, doubt any further symptoms. He did have a touch of nausea that day. The Zofran to care of it. He denies any further GI complaints. Previous history: He had a CTA on 01/14/20 which revealed: 1. No acute pulmonary embolism. Prior segmental filling defects resolved since exam 10/25/2020. 2. Moderate right effusion slightly decreased since prior exam 10/25/2020. 3. Subsegmental atelectasis anterior medial right upper lobe and right posterior basal region. No segmental or lobar airspace consolidation. No pneumothorax. VTE: negative He tells me back in January, he was in house with a hip fracture. Discharge summary: He presented to the emergency department after sustaining a fall while getting out of his car. He was in the parking lot of [facility] when he turned and took a step and fell. He landed on the left side. He was unable to get up due to pain. He called security who assisted him to the emergency department where he was evaluated. X-rays of the left hip demonstrated impacted subcapital fracture of the femur. Orthopedics was consulted and the plan was to admit him to the orthopedic service and plan for surgical intervention. The patient underwent a successful left hip percutaneous pinning, was transferred to PACU and then to the floor to recover. During their stay, their vitals were stable. POD1 he was started on Lovenox for DVT ppx, they also received physical therapy and occupational therapy services twice a day. Postop day 3 his hematocrit dropped to 28.4 therefore he was transfused with 1 unit of packed red blood cells followed by 20 mg of IV Lasix. Prior to discharge, dressing remained clean dry and intact the plan is to be transferred to a short- term rehab. He was seen by GI Dr. Leal, during that admission: stools, where he required blood transfusion. He underwent upper endoscopy and colonoscopy to the terminal ileum. The colonoscopy showed multiple polyps consistent with his previous history of [place] syndrome with hamartomatous colon polyps. He also had large internal hemorrhoids and a lipoma. An upper endoscopy had been done the day prior to the colonoscopy, which showed gastric polyps, but no upper GI bleeding source was identified. He was discharged after his hematocrit was stable and outpatient followup capsule endoscopy was to be arranged. At the time, he presented with anemia and Hemoccult-positive stools. He had been on Eliquis for pulmonary embolism and also been on aspirin. It was felt safe to restart these medications at the time of his discharge. He was in rehab for 2 weeks and then he went home. 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 First week was tough however now he is getting the hand of it. His legs are getting stronger. He denies any adenopathy. Energy level is back to baseline. No abdominal pain nausea vomiting heartburn indigestion. His bowels are moving without any gross blood in it. He enjoys a good appetite. He has lost weight intentionally. He is eating healthy. He has cerebellar degeneration. He has difficulty with balance. He follows closely with the neurologist. He is in good spirits. Rest of the review of systems is unremarkable. He tells me he lost [address] Suero who attributed the weight loss to abnormal thyroid function. His Synthroid was 175 mcg was lowered down to 125 mcg. He is starting to gain weight. Past medical history: He tells me he has had cardiac issues. He was admitted to the hospital in January 2019, for chest pain and shortness of breath. A stent was considered the block age was less than 30%. The plan is to optimize medical therapy, and for close observation. He was on Lasix 20 mg a day however he developed some lower extremity edema cough and shortness of breath. Lasix has been increased to 20 mg b.i.d. since then his symptoms have resolved. He also mentions that the battery on his pacemaker is due to be changed. He is actually seeing the counseling program leader here on Monday for his 1st appointment. He has been under care of vascular. They are contemplating starting Eliquis in future. He has been going back for annual colonoscopies under the care of Dr. Gillis. Next one is scheduled for September 2020. Review of Systems - Constitutional Reports no additional constitutional complaints, Reports anorexia, Reports fatigue, Reports lack of energy, Reports malaise, Reports weakness, Reports weight loss - Eyes Reports no additional eye complaints - ENT Reports no additional ear, nose, mouth, and throat complaints - Cardiovascular Reports no additional cardiovascular complaints - Respiratory Reports no additional respiratory complaints - Gastrointestinal Reports no additional gastrointestinal complaints - Genitourinary Genitourinary: Reports no additional male genitourinary complaints - Musculoskeletal Reports no additional musculoskeletal complaints - Integumentary/Breasts Skin/Breast: Reports no additional skin complaints - Neurologic Reports no additional neurologic complaints, Reports abnormal gait, Denies h eadache(s), Denies memory loss, Reports weakness - Psychiatric Reports no additional psychiatric complaints - Endocrine Reports no additional endocrine complaints - Hematologic/Lymphatic Reports no additional hematologic/lymphatic complaints - Allergic/Immunologic Reports no additional allergic/immunologic complaints [facility] Medical History: Medical History (Last Reviewed 10/21/22 @ 14:48 by Loulou Schmidt) Anemia, chronic disease Aortic stenosis, severe Cardiac resynchronization therapy defibrillator (FISHER DIVER NET-D) in place Onset Date: ~2013 Cerebellar dysfunction Complete heart block 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HFrEF (heart failure with reduced ejection fraction) History of COVID-19 History of TIA (transient ischemic attack) Onset Date: ~12/2018 Hodgkin disease Onset Date: ~1989 Hypotension (arterial) Hypothyroidism Idiopathic thrombocytopenia LBBB (left bundle branch block) Multinodular thyroid NICM (nonischemic cardiomyopathy) Osteoporosis Pulmonary embolism Pulmonary embolism Shortness of breath Tingling of left upper extremity Vitamin D deficiency Functional capacity: uses cane/walker Patient : No Family History: Family History (Last Reviewed 10/21/22 @ 14:48 by Loulou Schmidt) Father Healthy adult male Mother Bladder cancer Surgical History: Surgical History (Last Reviewed 10/21/22 @ 14:48 by Loulou Schmidt) History of appendectomy Onset Date: ~1989 History of cardiac defibrillator placement Onset Date: ~2013 History of cardiac pacemaker Onset Date: ~2013 History of colonoscopy Onset Date: ~2020 History of esophagogastroduodenoscopy (EGD) Onset Date: ~2021 History of hip surgery Onset Date: ~2020 History of splenectomy Onset Date: ~1989 History of thoracentesis Onset Date: ~2019 History of transcatheter aortic valve replacement (TAVR) Onset Date: ~2020 S/P thyroid biopsy Onset Date: ~2021 Social History: Social History (Last Reviewed 10/21/22 @ 14:48 by Loulou Schmidt) Living Situation History: Household Members: Significant Other Housing: House Are you a primary adult live in caregiver to a significant other at home: No Do you presently have visiting nurse or other home services: No Alcohol History Details: 1. How often do you have a drink containing alcohol?: b. Monthly or less 2. How many drinks containing alcohol do you have on a typical day when you are drinking?: a. 1 or 2 Tobacco History: Patient Tobacco Use Status: Never used Tobacco e-Cigarette/Vaping Use: Never Used Second Hand Smoke Exposure: No Substance Use History: Use of substances other than those prescribed or required for medical reasons : No Domestic Abuse History: Have you been hit, kicked, punched, or otherwise hurt by someone within the past year? 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: service: Yes Current occupational status: employed Current occupational exposures/hazards: No Oncology Screenings - ECOG Performance Status ECOG Performance Status: 1 Home Medications and Allergies Home Medications Medication Instructions Recorded Confirmed Type furosemide 20 mg tablet 40 mg PO DAILY@1700 06/28/22 10/21/22 History furosemide 20 mg tablet (Lasix) 60 mg PO DAILY 06/28/22 10/21/22 History levothyroxine 150 mcg tablet 150 mcg PO DAILY@0600 09/13/22 10/21/22 History Allergies Allergy/AdvReac Type Severity Reaction Status Date / Time No Known Allergies Allergy Verified 10/21/22 14:48 [No Known Allergies*] Exam Vital signs: Vital Signs Temp 98.1 F 10/21/22 14:46 Pulse 102 H 10/21/22 14:46 Resp 14 01/31/22 14:47 BP 99/57 L 10/21/22 14:46 Pulse Ox 98 10/21/22 14:46 O2 Del Method Room Air 10/21/22 14:46 O2 Flow Rate 2 12/01/21 09:36 Intake & Output 10/20/22 10/21/22 10/21/22 18:59 06:59 18:59 Other: Weight 61 kg [place] Weight in Grams 64400 Weight 61 kg BMI result Body Mass Index 18.7 - Constitutional Present: no acute distress - Routine HEENT Exam Head: Present: normal inspection Eye: Present: normal appearance ENT: Present: mucous membranes moist - Routine Neck Exam Present: full ROM - Routine Respiratory Exam Present: decreased breath sounds, CTAB, rales - Routine Cardiovascular Exam Cardiovascular: Present: RRR, S1 - Routine Abdominal Exam Present: soft, nontender - Routine Extremities Exam Present: nontender - Routine Back/Spine/Pelvis Exam Back/Spine: Present: full ROM - Routine Skin Exam Present: intact - Routine Neurological Exam Present: alert, oriented X3 - Detailed Neurological Exam: Coma Scale Eye Opening: Spontaneous (4) - Routine Psychiatric Exam Present: normal affect. Absent: agitated Data - Labs CBC & Chem 7: 10/21/22 15:03 10/21/22 15:03 - Imaging Radiologist's impression: ITS Impressions Chest X-Ray 05/04/20 15:46 IMPRESSION: 1. Small right effusion. Vascularity normal. Heart size normal. 2. Old mediastinal lymph node calcification, similar to prior report 01/12/2011. 3. Large oval smooth calcification right anterior abdomen approximately 3 x 5 cm. Chest X-Ray 11/29/21 17:25 IMPRESSION: Interval slight worsening in the left upper lobe and parahilar interstitial changes likely pneumonitis or unilateral pulmonary venous congestion. Bibasilar haziness and right lower lobe opacity has slightly increased. Suspect bilateral small pleural effusions. Assessment and Plan Patient Active problem list reviewed?: Yes (1) Hodgkins lymphoma Status: Inactive Assessment and plan: 61 year-old gentleman with history of Hodgkin's Lymphoma diagnosed in 1989. He had disease recurrence in 1994, for which he had systemic chemotherapy until April 1996. He is clinically in remission and doing fairly well, for a long time. He was recently admitted with ITP. He has a Normal exam and blood work. LDH: 226. He had a CTA of the chest done which was non revealing. He had abnormal thyroid function. Ultrasound of the thyroid revealed a nodule. He underwent an FNA, on 09/16: [place] system calcification: Atypia of undetermined significance, category 3. AFIRMA genomic sequencing: No results. Insufficient healed I RNA. PLAN: He will be following with Dr. Suero for repeat testing. He will return in 6 months for a follow-up. Thank you, CC: Denis. Dr. Rios. Dr. Javier. (2) 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Problem details: (seen by genetics, undergoes annual colonoscopies) Status: Acute Assessment and plan: 2. Val's Syndrome. He has seen a genetic counselor, Given the high risk for malignancy, cancer surveillance is the major focus of management. He is undergoing annual colonoscopies by Dr. Gillis, at [facility]. In terms of surveillance, a recommendation from NCCN is: 1) Annual comprehensive physical examination. 2) Thyroid ultrasound annually. 3) Colonoscopy every 5 years, more frequent if symptomatic. However in view of the [place]'s syndrome he should have annual colonoscopy. 4) Renal ultrasound to be repeated every 1 to 2 years. 5) Annual skin exam, also need to have a low index of suspicion for dysplastic gangliocytoma of the cerebellum. 6) If patient has symptoms, then neuroimaging is recommended, anyone with persistent headache. Previously he was noted to be anemic.Iron studies: /. 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 He is no longer anemic. PLAN: He had a colonoscopy last year by Dr. Leal. He was seen for anemia, January. He is currently maintained on iron. He will be following up with Dr. Leal for further evaluation including colonoscopy and video capsule study. He has to call for an appointment. Thank you, CC: Dr. Mann. Dr. Leal. (3) Acute ITP Status: Inactive Assessment and plan: This is a pleasant 60-year-old gentleman with a previous history of Hodgkin's lymphoma 20 years ago. He had mantle field radiation. Lately he has had cardiac issues. He presented to the counseling program leader, on 09/19. Was incidentally noted to have a platelet count of 2,000. He was admitted. Overnight, he received platelets and a dose of Decadron. DIFFERENTIAL DIAGNOSIS considered was: 1.ITP: is most likely. 2. Infection related: He did engine turner to be COVID positive. That is most likely the underlying cause of the thrombocytopenia. 3. Drug-induced thrombocytopenia. 4. Myelo infiltrative disorder: Patient has history of Hodgkin's lymphoma. 5. DIC: Is in the differential. 6. TTP/HUS: not likely. He does not have the PENTAD. He was given a unit of platelets, on 09/20. He received a dose of Decadron 10 mg IV. Platelets came up to 21. He was then started on Decadron 40 mg p.o. daily for 5 days. A bone marrow exam was done on 09/21, under platelet cover. It revealed megakaryocytic hyperplasia without features of dysplasia, s uggesting peripheral destruction as a cause of thrombocytopenia. Flow cytometry was negative for a lymphoproliferative disorder. Cytogenetics revealed normal male karyotype. He was given prednisone, as an outpatient. He has been started on rituximab as more definitive therapy for ITP. Meanwhile he was started on oral Decadron 40 mg daily for 5 days. Serial platelet counts: 09/21: 21, 09/22: 48, 09/23: 74. 09/27: 22. He was then started on prednisone 60 mg daily. 10/07: 43. Database: 10/14: CBC: WBC 15.9, HGB 14, HCT 41.9, PLT 228. CMP: Lytes WNL, CO2 32, glucose 131, BUN 26, FISHER DIVER NET 1.0. LFTs: 0.8/66/. Jose Alfredo 9.3, Alb 4. He was been started on rituximab. He received his 1st dose on 10/08. He tolerated it very well. He completed his 4th dose, on 10/29. Labs from 10/28: CBC: WBC 18, HGB 14.8, HCT 45.4, PLT 145. CMP: Lytes WNL, glu 139, BUN 24, FISHER DIVER NET 0.84. Jose Alfredo 9 7, alb 4.1. LFTs: 0.5//. His platelet count from 10/21: 21. He was on a prednisone taper down to 50 mg. His dose was increased back up to 60 mg. Platelet count 10/28: 145. Labs from 11/04: WBC 18.7, HGB 15.2, HCT 46, PLT 252. CMP: Glucose 111, BUN 28, FISHER DIVER NET 0.83. Jose Alfredo 8.9, alb 3.8. LFTs: 0.5//. He was admitted to the hospital back on 11/18. He had melena with a bout of hematemesis. His hemoglobin had dropped. EGD revealed: Gastric ulcer. He was on the prednisone taper. It was discontinued. Fortunately, his platelet count normalized. It appears that the rituximab is working. He was seen on 11/29. He was SOB. Noted to be anemic. He returned for a transfusion the next day, however had worsening SOB so sent to ED and was admitted. Chest x-ray was done: Interval slight worsening in the left upper lobe and parahilar interstitial changes likely pneumonitis or unilateral pulmonary venous congestion. Bibasilar haziness and right lower lobe opacity has slightly increased. Suspect bilateral small pleural effusions. He had B/L infiltrates on CAT scan of the chest. Treated with IV Zofran. Had ongoing fevers. Cat scan of abd/pelvis was negative. Diagnosed with LUE DVT. Was started on Lovenox. His arm swelling resolved. He was then switched to Eliquis. From 01/26, Database: CBC: WBC 7.4, HGB 10.1, HCT 33, MCV 84.4, PLT 398. CMP: Lytes WNL, glucose 96, BUN 11, FISHER DIVER NET 0.76. Ca late 0.9, ALP 3.9. LFTs: 0.4/66/19/8. LDH: 29. He is feeling significantly better. His platelets have normalized. Hopefully he will have a lasting remission. PLAN: He is very motivated. He is trying to get all his strength back. The plan is to continue to monitor his counts. He will return in 1 month for labs. He will return in 2 months for a follow-up. Thank you, Cc: Roca. Leal. (4) Acute deep vein thrombosis of upper extremity Status: Inactive Assessment and plan: 61 year old gentleman recently in house for pneumonia. Was on IV antibiotics. Developed phlebitis, from IV access. Subsequently had DVT. He was started on Lovenox. He has been giving himself the shots at home. His left arm has resolved. D dimer: 765. l switched him to a NOAC, Eliquis. He has been tolerating it well. His arm swelling has almost subsided. His D-dimer: 848. PLAN: He will continue on the Eliquis for now. Will recheck ultrasound in a couple of months time, then decide about the duration of anticoagulation. He will return in 2 months for a follow up. Thanks, CC: Dr. Mann. (5) Gastric cancer Status: Acute Assessment and plan: 61 year old unfortunate gentleman, presented to the hospital on 10/10 with a headache and weakness. In the ED, patient received IV morphine with resolution of headache, ondansetron, 1 L IVF, and 2 units packed red blood cells. the patient was admitted for evaluation of Acute on chronic iron deficiency anemia related to blood loss from gastric ulcer secondary to eliquis use. EGD was consistent large 10 cm oozing ulcer with no active bleeding. 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 Responded well after 2 units transfusion with Hb maintaining above 8. patient was able to ambulate on RA with no reported dyspnea. He was treated with IV PPI 40mg BID and Iron supplements. Eliquis was put on hold. He was sent home on oral omeprazole and iron supplements. He was seen by Dr. Simms, earlier in the week. His notes: I discussed with the patient and his family his situation. He may require a partial gastrectomy or possibly an esophagogastrectomy based on the precise tumor location. His staging workup is still underway. I also discussed with the patient and his that I would recommend his being evaluated by a upper GI/oncologic surgeon whom I know and strongly recommend, Dr. Best Whatley, out of [facility] in [place]. He has very skilled and if the patient is indeed deemed an operative candidate, could be possibly performed minimally invasively. At the very least, I strongly recommend that they obtain a consultation with this physician. I have subsequently spoken with Dr. Whatley as well as gotten back to the [place] family by phone on 10/20 and arrangements are being made for this appointment along with obtaining the patient's hospital records and radiographic studies, etc. to accompany them. The tells me that they are trying to obtain insurance approval to go out of network. His hemoglobin is reasonable today, at 11. He does not need a blood transfusion. PLAN: In the meantime he has been scheduled for CT scan of the chest abdomen pelvis for initial staging. These are scheduled for 11/03. He was advised to take frequent small meals. Will monitor his blood count carefully. He will continue on the iron supplements. All his his and his son's questions were answered. He will return in a couple of weeks for a follow-up visit. Will make further plans based upon Dr. Whatley's opinion. Thanks, CC: - Time Spent With Patient Time Spent with Patient (in minutes): 30
[2022-10-21 15:35] LABS: Alanine Aminotransferase 7 U/L (0-40); Alkaline Phosphatase 77 U/L (39-117); Anion Gap 15 (12-20); Aspartate Amino Transferase 15 U/L (5-37); Bilirubin Total 0.7 mg/dL (0.0-1.0); Blood Urea Nitrogen 21 mg/dL (9-16); Calcium 8.9 mg/dL (8.4-10.2); Carbon Dioxide 32 mmol/L (22-29); Chloride 98 mmol/L (96-108); Creatinine Clr Calc Pharmacy 70.7; Estimated Glomerular Filt Rate > 60; Glucose Random 96 mg/dL (60-115); Potassium 4.2 mmol/L (3.3-5.1); Sodium 141 mmol/L (135-145); Total Protein 6.7 g/dL (6.5-8.0)
[2022-10-21 15:39] LABS: SLIDE REVIEW VERIFIED
[2022-10-21 15:58] LABS: Carcinoembryonic Antigen < 1.73 ng/mL
--- NOTE | 2022-10-21 16:33 | MHC.HEMONCMA ---
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
--- NOTE | 2022-10-25 10:28 | MHC.HEMONC ---
Triage call-received call from requesting FMLA and short term disability paperwork as soon as possible. Rosa M Vázquez nurse navigator to work on paperwork. also requesting CT scan for next week be rescheduled to this week-request given to Oren Lucas to reschedule.
--- NOTE | 2022-10-25 16:11 | MHC.HEMONCSW ---
Rika to Pt's , Lisette to inform her that the [facility] paperwork is completed -she indicated that she needed to get it to and would be in tomorrow to pick it up. I inquired about faxing it to [facility] and she stated that will do that.
--- NOTE | 2022-11-01 11:00 | MHC.HEMONC ---
I faxed recent imaging reports to Dr Best Whatley (surgeon) at [facility] in [facility] per request Dr Merchant.
--- NOTE | 2022-11-01 11:17 | MHC.HEMONC ---
PET order given to Dee Dee for PA and booking.
--- NOTE | 2022-11-03 13:16 | MHC.HEMONC ---
Pt is admitted at [facility] with GIB per Dr Merchant. Faxed requested notes/reports to Dr Pippa Lyons.
--- NOTE | 2022-11-07 14:41 | MHC.HEMONC ---
Triage call-received call from pt's requesting ETA on PET scan Herman Geronimo notified and will call pt
--- NOTE | 2022-11-07 14:46 | HO.HEMONCPA ---
PA for PET/CT scan - Put a call to [facility] Blue Benefit Coordinator (Salma Brennan - ) & LVM on 11/03/22 awaiting call back
--- NOTE | 2022-11-07 15:04 | HE.ONCSEC ---
Returned call to patient's Lisette regarding the status of the prior authorization for the PET scan. I informed Lisette() that I put a call to the [facility] ([facility]) Welt Rougher (Joi), and I am awaiting call back from Joi.
--- NOTE | 2022-11-09 16:59 | HO.HEMONCPA ---
PA FOR PET/CT SCAN INITIATED. AWAITING DECISION
--- NOTE | 2022-11-10 17:24 | HO.HEMONCPA ---
NO PA REQUIRED FOR PET/CT SCAN. ORDER FAXED TO [facility]
--- NOTE | 2022-11-11 11:24 | MHC.HEMONC ---
Triage call-received call from stating pt will be discharge from hospital today or tomorrow. [facility] will see surgeon at [facility] on 11/24/22. [facility] has a [facility] disease case manager (Annie). Also questioning when PET SCAN would be performed. Notified of no PA needed for scan per Dee Dee-informed she would receive phone call with appointment in next few days. Dr Merchant notified
--- NOTE | 2022-11-14 12:59 | MHC.HEMONC ---
Pt called looking to see if PET scan was booked yet. No PA required and order was sent to [facility] to book.
--- NOTE | 2022-12-02 15:43 | HO.HEMONCSCH ---
Pt on 11/30/22.
== END 2022-11-30 | disposition home or self-care (01) ==
LOC: HO.ONC 14:40
PROVIDERS: PCP Internal Medicine; Visit Provider Internal Medicine Medical Oncology
DX: D69.3 Immune thrombocytopenic purpura (principal); D64.9 Anemia, unspecified; C16.9 Malignant neoplasm of stomach, unspecified; I82.622 Acute embolism and thrombosis of deep veins of left upper extremity; E04.1 Nontoxic single thyroid nodule; Q85.8 Other phakomatoses, not elsewhere classified; Z85.71 Personal history of Hodgkin lymphoma; Z79.01 Long term (current) use of anticoagulants; Z79.899 Other long term (current) drug therapy; Z92.21 Personal history of antineoplastic chemotherapy; Z92.3 Personal history of irradiation
CPT/HCPCS: 36415; 36430; 71046; 80053; 82378; 82607; 82728; 82746; 83010; 83540; 83615; 84443; 85025; 85379; 86850; 86900; 86901; 86923; 96372; 96374; 96375; 96413; 96415; 99211; 99214; J1200; J1650; J1940; J9312; P9016

== ENCOUNTER 2022-10-26 12:31 | Outpatient (REF) | payer OTHER, SELFPAY ==
--- NOTE | ~2022-10-26 | CT_ITS ---
EXAMINATION: CT CHEST WITH CONTRAST CLINICAL INFORMATION: Staging gastric cancer COMPARISON: Previous chest CTA July 2022 TECHNIQUE: Multidetector volumetric CT imaging of the chest was obtained after the administration of 85 mL of Omnipaque 350 intravenous contrast without immediate adverse reactions. Axial MIP volume rendering provided. Sagittal and coronal reformatted images were obtained. This CT examination was performed using dose optimization techniques as appropriate, variously including the following: *Automated exposure control *Adjustment of mA and/or kV according to patient size (this includes techniques or standardized protocols for targeted exams where dose is matched to indication/reason for exam; i.e. extremities or head) *Use of iterative reconstruction technique DLP: 245 mGy-cm FINDINGS: LUNGS: There are increased paramediastinal interstitial markings seen in both lungs. Findings are questionable for a previous chest radiation. There is a 3 mm right middle lobe nodule axial image 417 series 9. There is question of small peripheral or subpleural nodule versus subsegmental atelectasis in the right lower lobe axial image 384 series 9. MEDIASTINUM: The heart size is normal. There is an aortic valve stent graft. There is a left subclavian pacemaker and ICD device with leads projecting over the right atrium, right ventricle and coronary sinus. There is no pericardial effusion. There is reflux of contrast into the intrahepatic IVC and hepatic veins questionable for right heart compromise. PLEURA: There are small to moderate bilateral pleural effusions. There is a very small left apical pneumothorax. This measures 1.3 cm in greatest thickness at left lung apex. AXILLA: No chest wall mass or enlarged axillary lymph nodes. There are extensive left chest wall collateral vessels. UPPER ABDOMEN: See abdominal and pelvic CT report from the same day. OSSEOUS STRUCTURES: The bones are osteopenic. There is a mild T8 vertebral body compression fracture. This is new in the interval from July 2022 exam. There is heterogeneous attenuation of the T1-T3 vertebral bodies with the patchy areas of increased sclerosis. Correlation with bone scan recommended. CT/CT chest w IV con IMPRESSION: Small right middle lobe and question small right lower lobe nodules. Small to moderate bilateral pleural effusions. Small left apical pneumothorax. T8 vertebral body compression fracture. Heterogeneous attenuation of the T1 -T 3 vertebral bodies questionable for metastatic disease. Follow-up bone scan or PET CT scan recommended. Extensive left chest wall venous collaterals suggestive of a central venous obstruction. Fleischner guidelines were followed. Findings will be communicated by the [facility] work flow product promoter retail pet
--- NOTE | ~2022-10-26 | CT_ITS ---
EXAMINATION: CT ABDOMEN AND PELVIS WITH CONTRAST CLINICAL INFORMATION: Gastric cancer. Initial staging. COMPARISON: Previous CT of the abdomen and pelvis most recent November 2021 TECHNIQUE: Multidetector volumetric images were obtained from the superior aspect of the liver through the pubic symphysis following administration 85 mL of Omnipaque 350 intravenous contrast. Sagittal and coronal reformatted images were obtained on the technologist's workstation. Oral contrast: Yes This CT examination was performed using dose optimization techniques as appropriate, variously including the following: *Automated exposure control *Adjustment of mA and/or kV according to patient size (this includes techniques or standardized protocols for targeted exams where dose is matched to indication/reason for exam; i.e. extremities or head) *Use of iterative reconstruction technique DLP: 746 mGy-cm FINDINGS: LIVER, GALLBLADDER, AND BILIARY TREE: The liver is normal in size, shape, and attenuation. No focal hepatic lesion or biliary ductal dilatation is present. The gallbladder is unremarkable with no evidence of radiopaque gallstones, gallbladder wall thickening, or obvious pericholecystic inflammatory changes. PANCREAS: Unremarkable. SPLEEN: The spleen has been removed. ADRENAL GLANDS: Unremarkable. KIDNEYS AND URETERS: Small right renal cysts. Kidneys are otherwise normal. No imaging follow-up recommended. BLADDER: Not optimally distended and not well evaluated. GASTROINTESTINAL TRACT: Marked circumferential wall thickening of the proximal stomach. There is some stranding of the perigastric fat, particularly anteriorly for example axial image 19 series 6. Note definite perigastric lymph nodes seen. Constipation and diverticulosis of the colon. Normal small bowel. The appendix appears to have been removed. ABDOMINAL WALL: No significant hernia is appreciated. LYMPH NODES: There are small, small bowel mesentery lymph nodes for example axial image 35 series 6. There is some fat stranding of the upper abdominal retroperitoneum and small bowel mesentery. No enlarged lymph nodes. VASCULAR: Retroaortic left renal vein. No aneurysm. Varices in the right scrotum. PELVIC VISCERA: The prostate gland is slightly enlarged measuring 3.6 x 5.6 cm in AP and transverse dimension. OSSEOUS STRUCTURES: The bones are osteopenic. There is Schmorl's nodes in the superior endplates of the T12 and L1 vertebral bodies. There are 3 screws seen in the left proximal femur. There is mild degenerative changes of the lower lumbar spine and hip joints. There are several small nonspecific sclerotic foci in the pelvis largest measuring 5 mm for example the right iliac bone axial image 53 and 56 series 6. These are similar to previous exam CT/CT abdomen pelvis w IV con IMPRESSION: Circumferential wall thickening of the proximal stomach likely accounting for patient's known gastric cancer. There is some stranding of the fat adjacent to the anterior proximal stomach. No enlarged lymph nodes. Absent spleen. Diverticulosis and constipation. Enlarged prostate gland. Fleischner guidelines were followed.
[2022-10-26] MEDS: iohexoL 350 MG/ML 100 ML INFUS..BTL IV (15:20)
== END 2022-10-26 12:32 | disposition home or self-care (01) ==
LOC: HO.CT 12:31
PROVIDERS: PCP Internal Medicine; Visit Provider Internal Medicine Medical Oncology
DX: C16.9 Malignant neoplasm of stomach, unspecified (principal)
CPT/HCPCS: 71260; 74177; Q9967